=== PATIENT | female | born 1950 | race African-American/Black ===

== ENCOUNTER 2017-07-06 10:21 | Inpatient (IN) | payer MEDICARE ==
[2017-07-06] VITALS (9 sets, daily range): BP systolic 128–162; BP diastolic 92–127; PULSE 62–94; RESP 14–21; TEMP 97.8–98.8; O2SAT 95–97
[~2017-07-06] VITALS: Ht 170.2 cm; Wt 75.3 kg
[~2017-07-06 10:21] MED LIST: ALBUAER3 INH; AMLO10TA2 PO; CARV25TA PO; ENAL20TA PO; FLUT50SP EACH NARE; FURO40TA PO; ONETAB10 PO
[2017-07-06] MEDS ORDERED: SODIUM CHLORIDE 0.9% FLUSH 10 ML FLUSH IVF PRN (11:00)
[2017-07-06 11:08] LABS: AUTOMATED NEUTROPHIL # 4.7 TH/MM3 (1.8-7.7); BASOPHIL # 0.1 TH/MM3 (0-0.2); BASOPHIL % 0.9 % (0.0-2.0); EOSINOPHIL # 0.1 TH/MM3 (0-0.4); EOSINOPHIL % 2.1 % (0.0-4.0); HEMATOCRIT 37.2 % (35.0-46.0); LYMPH % 16.7 % (9.0-44.0); LYMPHOCYTE # 1.1 TH/MM3 (1.0-4.8); MEAN CELL VOLUME 83.1 FL (80.0-100.0); MEAN CORPUSCULAR HEMOGLOBIN 27.1 PG (27.0-34.0); MEAN CORPUSCULAR HGB CONC 32.6 % (32.0-36.0); MONO % 11.2 % (0.0-8.0); NEUT % 69.1 % (16.0-70.0); PLATELET COUNT 205 TH/MM3 (150-450); RED BLOOD COUNT 4.47 MIL/MM3 (4.00-5.30); RED CELL DISTRIBUTION WIDTH 15.7 % (11.6-17.2); WHITE BLOOD COUNT 6.8 TH/MM3 (4.0-11.0)
[2017-07-06 11:10] LABS: HEMO FLAGS AUTO DIFF
--- NOTE | 2017-07-06 11:12 | RADRPT ---
EXAM DATE/TIME: 07/06/2017 10:57 [place] COMPARISON: No previous studies available for comparison. INDICATIONS : Short of breath and cough. MEDICAL HISTORY : Bronchitis SURGICAL HISTORY : None. ENCOUNTER: Initial ACUITY: 1 day PAIN SCORE: 0/10 LOCATION: Bilateral chest FINDINGS: A single view of the chest demonstrates the lungs to be symmetrically aerated without evidence of mas s, infiltrate however there is a small left pleural effusion. The cardiomediastinal contours are unr emarkable. Osseous structures are intact. CONCLUSION: Bilateral pleural effusions left greater than right. Minimal scarring left mid lung zone Tayo Singh MD on July 06, 2017 at 11:09 Board Certified Radiologist. This report was verified electronically.
[2017-07-06 11:26] LABS: BICARBONATE 29.2 MEQ/L (21.0-32.0); POTASSIUM 3.1 MEQ/L (3.5-5.1)
--- NOTE | 2017-07-06 11:26 | PD ---
HPI . Cough Chief Complaint: Cardiac Complaint Time Seen by Provider: 10:56 Travel History International Travel<30 days: No Contact w/Intl Traveler<30days: No Traveled to known affect area: No History of Present Illness HPI This patient is sent here by her primary care physician for the evaluation of a cough. Onset of cough as 3 weeks ago. The patient has been seen at an urgent care facility and diagnosed with bronchitis. She was given several prescriptions at the urgent care center but has not taken them because they have potassium in them. She states that she is allergic to potassium. She had a routine visit with her family physician today. The family physician was concerned about the chronic cough or to us for further evaluation. This patient has a history of CHF. The patient reports a cough which is occasionally productive of clear phlegm. There has been no fever. No chest pain. She has peripheral edema but states that it is actually better today than it has been. There are no modifiers with her cough. The cough is mild. It has been persistent for the last 3 weeks. PFSH Past Medical History Congestive Heart Failure: Yes Hypertension: Yes ?: Not Menopausal: Yes Past Surgical History Surgical History: No Previous Surgery Social History Alcohol Use: No Tobacco Use: No Substance Use: No Allergies-Medications (Allergen,Severity, Reaction): Coded Allergies: iodine (Unverified Allergy, Severe, sneezing, chest tightness, 04/25/17) potassium iodide (Unverified Allergy, Severe, sneezing, chest tightness, 04/25/17) povidone-iodine (Unverified Allergy, Severe, sneezing, chest tightness, ) sodium iodide (Unverified Allergy, Severe, sneezing, chest tightness, 05/02) sodium iodide (Unverified Allergy, Severe, sneezing, chest tightness, 05/02) sulfamethoxazole (Unverified Allergy, Intermediate, abdominal pain, ) trimethoprim (Unverified Allergy, Intermediate, abdominal pain, 04/25/17) Reported Meds & Prescriptions Reported Meds & Active Scripts Active Proair Hfa 8.5 GM Inh (Albuterol Sulfate) 90 Mcg/Act Aer 2 Puff INH Q4-6H PRN 108 mcg/actuation Carvedilol 25 Mg Tab 25 Mg PO BID Furosemide 40 Mg Tab 40 Mg PO DAILY PRN Enalapril (Enalapril Maleate) 20 Mg Tab 20 Mg PO BID One Daily For Women 50+A (Multiple Vitamins W/ Minerals) 1 Tab Tab 1 Tab PO DAILY Amlodipine (Amlodipine Besylate) 10 Mg Tab 10 Mg PO DAILY Review of Systems Except as stated in HPI: all other systems reviewed are Neg General / Constitutional: No: Fever, Chills Respiratory: Positive: Cough, No: Shortness of Breath Gastrointestinal: Positive: Nausea Musculoskeletal: Positive: Edema Physical Exam Narrative GENERAL: Patient is awake and alert and does not appear to be in any distress. SKIN: warm/dry. Normal color and turgor. HEAD: Normocephalic. Atraumatic. EYES: Pupils equal and round. No scleral icterus. No injection or drainage. ENT: No nasal bleeding or discharge. Mucous membranes pink and moist. NECK: Trachea midline. Full range of motion without pain.. CARDIOVASCULAR: Regular rate and rhythm. Heart sounds are normal. RESPIRATORY: No accessory muscle use. Diffuse rales.. Breath sounds equal bilaterally. GASTROINTESTINAL: Abdomen soft. Nontender. Bowel sounds present. Nondistended. MUSCULOSKELETAL: No obvious deformities. One plus pretibial pitting edema. NEUROLOGICAL: Awake and alert. No obvious cranial nerve deficits. Motor grossly within normal limits. Normal speech. PSYCHIATRIC: Appropriate mood and affect; insight and judgment normal. Data Data Last Documented VS Vital Signs Date Time Temp Pulse Resp B/P (MAP) Pulse Ox O2 Delivery O2 Flow Rate FiO2 07/06/17 11:52 87 14 160/127 (138) 97 07/06/17 10:54 Room Air 07/06/17 10:24 98.8 Orders Orders Complete Blood Count With Diff (07/06/17 10:51) Basic Metabolic Panel (Bmp) (07/06/17 10:51) B-Type Natriuretic Peptide (07/06/17 10:51) Iv Access Insert/Monitor (07/06/17 10:51) Ecg Monitoring (07/06/17 10:51) Oximetry (07/06/17 10:51) Chest, Single Ap (07/06/17 10:51) Sodium Chloride 0.9% Flush (Ns Flush) (07/06/17 11:00) Furosemide Inj (Lasix Inj) (07/06/17 11:30) Nitroglycerin 2% Oint (Nitroglycerin 2% (07/06/17 11:30) Labs Laboratory Tests Test 07/06/17 11:00 White Blood Count 6.8 TH/MM3 Red Blood Count 4.47 MIL/MM3 Hemoglobin 12.1 GM/DL Hematocrit 37.2 % Mean Corpuscular Volume 83.1 FL Mean Corpuscular Hemoglobin 27.1 PG Mean Corpuscular Hemoglobin Concent 32.6 % Red Cell Distribution Width 15.7 % Platelet Count 205 TH/MM3 Mean Platelet Volume 10.3 FL Neutrophils (%) (Auto) 69.1 % Lymphocytes (%) (Auto) 16.7 % Monocytes (%) (Auto) 11.2 % Eosinophils (%) (Auto) 2.1 % Basophils (%) (Auto) 0.9 % Neutrophils # (Auto) 4.7 TH/MM3 Lymphocytes # (Auto) 1.1 TH/MM3 Monocytes # (Auto) 0.8 TH/MM3 Eosinophils # (Auto) 0.1 TH/MM3 Basophils # (Auto) 0.1 TH/MM3 CBC Comment AUTO DIFF Differential Comment AUTO DIFF CONFIRMED Ovalocytes 1+ Acanthocytes OCC Keratocytes OCC Blood Urea Nitrogen 26 MG/DL Creatinine 1.33 MG/DL Random Glucose 119 MG/DL Calcium Level 8.4 MG/DL Sodium Level 143 MEQ/L Potassium Level 3.1 MEQ/L Chloride Level 105 MEQ/L Carbon Dioxide Level 29.2 MEQ/L Anion Gap 9 MEQ/L Estimat Glomerular Filtration Rate 48 ML/MIN B-Type Natriuretic Peptide 3767 PG/ML MDM Medical Decision Making Medical Screen Exam Complete: Yes Emergency Medical Condition: Yes Medical Record Reviewed: Yes (this patient was seen by her primary care provider today. That note is available to me for review. The primary care provider as the patient come to the emergency department to be evaluated for acute exacerbation of congestive heart failure. The patient has an underlying ejection fraction of 40% based on an echo done this past year.) Interpretation(s) EKG shows a sinus rhythm with unifocal PVCs. No ST segment elevation or depression. She has inverted T waves laterally. She has no old EKGs in our system for comparison. Differential Diagnosis Differential diagnosis includes but is not limited to viral respiratory illness , bronchitis, pneumonia, allergies, CHF, asthma/COPD. Narrative Course This patient is sent here by her doctor for rule out CHF. She has had a cough for the last 3 weeks. CXR: A single view of the chest demonstrates the lungs to be symmetrically aerated without evidence of mass, infiltrate however there is a small left pleural effusion. The cardiomediastinal contours are unremarkable. Osseous structures are intact. I have independently viewed chest x-ray. She also has no old chest x-rays in our system for comparison. CBC & BMP Diagram 07/06/17 11:00 Calcium Level 8.4 L BNP 3767 This patient is followed by the family practice residents. Their service will be consulted for admission. Diagnosis Primary Impression: Cough Additional Impression: CHF (congestive heart failure) Qualified Codes: I50.9 - Heart failure, unspecified Admitting Information Admitting Physician Requests: Admit Condition: Stable Sirisha Ambrocio MD Jul 06, 2017 11:26
[2017-07-06] MEDS ORDERED: FUROSEMIDE 100 MG/10 ML VIAL IV PUSH ONE (11:30)
[2017-07-06] MEDS ORDERED: NITROGLYCERIN 2% OINT 1 GM PACKET TOPICAL ONE (11:30)
[2017-07-06 11:42] LABS: SCAN/DIFF AUTO DIFF CONFIRMED
[2017-07-06 11:43] LABS: ACANTHOCYTES OCC (NORMAL); KERATOCYTES OCC (NORMAL); OVALOCYTES 1+ (NORMAL)
--- NOTE | 2017-07-06 12:26 | HHI.HP ---
[facility] Primary Care Physician Melissa Monreal MD Admission Diagnosis CHF Diagnoses: International Travel<30 Days: No Contact w/Intl Traveler<30days: No Known Affected Area: No History of Present Illness 66 year old female, patient of Dr. Monreal, sent by Dr. Monreal today from the [facility] clinic. She is accompanied by her . She is presenting with a one week history of increasing exertional dyspnea and increasing lower extremity edema. She has a known history of CHF with an EF one year ago of 40%. She is followed by Dr. Mae. She also has a history of pulmonary hypertension, moderate mitral valve regurgitation, and moderate pulmonary hypertension. 3 weeks ago she developed an acute cough with clear sputum production and was diagnosed with acute bronchitis. The cough is starting to resolve now. 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 Lately, she is noticing that she gets short of breath easily as she is performing her duties. She also has Lasix that she takes as needed, and is taking it every day as she is noticing increasing edema in both legs. She notes that she has been eating more junk food than usual recently because of the holidays. She was first diagnosed with heart failure in 2009. She's been hospitalized twice before for CHF exacerbations. The last time was in 2016. On review of systems, she has no chest pain, abdominal pain, calf tenderness or pain, night sweats, fevers. Review of systems is positive for coughing, nausea for 2 days, vomit X2, recent weight loss unintentional, left neck lymph node for the past couple weeks, and white sputum production. Review of Systems Constitutional: COMPLAINS OF: Weight loss, DENIES: Fatigue, Fever, Chills, Change in appetite, Night Sweats Endocrine: COMPLAINS OF: Heat/cold intolerance Eyes: DENIES: Blurred vision, Vision loss, Double Vision Ears, nose, mouth, throat: DENIES: Nasal discharge, Oral lesions, Throat pain, Hoarseness, Running Nose, Odynophagia Respiratory: COMPLAINS OF: Cough, Wheezing, Sputum production, Shortness of breath Cardiovascular: COMPLAINS OF: Dyspnea on Exertion, Lower Extremity Edema, DENIES: Chest pain, Palpitations, Syncope Gastrointestinal: COMPLAINS OF: Nausea, Vomiting, DENIES: Abdominal pain, Black stools, Bloody stools, Constipation, Diarrhea, Difficulty Swallowing Genitourinary: DENIES: Urinary frequency Musculoskeletal: DENIES: Joint pain, Muscle aches Integumentary: DENIES: Rash Hematologic/lymphatic: COMPLAINS OF: Lymphadenopathy (left neck shotty lymph node ) Neurologic: DENIES: Headache Psychiatric: DENIES: Anxiety, Depression Past Family Social History Past Medical History Congestive heart failure Hypertension CKD Pulmonary hypertension Moderate mitral regurgitation Advertising Rep: Dr. Mae PCP: Dr. Monreal Past Surgical History None Reported Medications Reported Meds & Active Scripts Active Proair Hfa 8.5 GM Inh (Albuterol Sulfate) 90 Mcg/Act Aer 2 Puff INH Q4-6H PRN 108 mcg/actuation Carvedilol 25 Mg Tab 25 Mg PO BID Furosemide 40 Mg Tab 40 Mg PO DAILY PRN Enalapril (Enalapril Maleate) 20 Mg Tab 20 Mg PO BID One Daily For Women 50+A (Multiple Vitamins W/ Minerals) 1 Tab Tab 1 Tab PO DAILY Amlodipine (Amlodipine Besylate) 10 Mg Tab 10 Mg PO DAILY Allergies: Coded Allergies: iodine (Unverified Allergy, Severe, sneezing, chest tightness, 04/25/17) potassium iodide (Unverified Allergy, Severe, sneezing, chest tightness, 04/25/17) povidone-iodine (Unverified Allergy, Severe, sneezing, chest tightness, ) sodium iodide (Unverified Allergy, Severe, sneezing, chest tightness, 05/02) sodium iodide (Unverified Allergy, Severe, sneezing, chest tightness, 05/02) sulfamethoxazole (Unverified Allergy, Intermediate, abdominal pain, ) trimethoprim (Unverified Allergy, Intermediate, abdominal pain, 04/25/17) Active Ordered Medications Inpatient Medications Bisacodyl (Dulcolax Supp) 10 mg DAILY PRN RECTAL SEVERE CONSITIPATION; Start 07/06/17 at 12:45 Carvedilol (Coreg) 25 mg BID PO ; Start 07/06/17 at 12:30 Clonidine (Catapres) 0.2 mg Q6H PRN PO SBP>160, DBP>90; Start 07/06/17 at 13: 15 Enalapril Maleate (Vasotec) 20 mg BID PO ; Start 07/06/17 at 12:30 Enoxaparin Sodium (Lovenox Inj) 40 mg Q24H SQ ; Start 07/06/17 at 14:00 Furosemide (Lasix Inj) 40 mg BID@,18 IVP ; Start 07/06/17 at 18:00 Lactulose (Lactulose Liq) 30 ml DAILY PRN PO SEVERE CONSITIPATION; Start 07/06 at 12:45 Magnesium Hydroxide (Milk Of Magnesia Liq) 30 ml Q12H PRN PO Mild constipation ; Start 07/06/17 at 12:45 Multivitamins/ Minerals Therapeutic (Theragran M Tab) 1 tab DAILY PO ; Start at 12:30 Naloxone HCl (Narcan Inj) 0.4 mg UNSCH PRN IV PUSH SEE LABEL COMMENTS; Start 07/06/17 at 12:45 Nitroglycerin (Nitroglycerin 2% Oint) 1 inch ONCE ONCE TOPICAL Last administered on 07/06/17t 11:47; Start 07/06/17 at 11:30; Stop 07/06/17 at 11 :31; Status DC Ondansetron HCl (Zofran Inj) 4 mg Q6H PRN IVP NAUSEA OR VOMITING; Start at 12:45 Potassium Chloride (KCl) 40 meq DAILY PO ; Start 07/07/17 at 09:00; Stop 07/07 at 09:00; Status DC Senna/Docusate Sodium (Aleyda-Colace) 1 tab BID PO ; Start 07/06/17 at 21:00 Sennosides (Senokot) 17.2 mg Q12H PRN PO Moderate constipation; Start at 12:45 Sodium Chloride (NS Flush) 2 ml UNSCH PRN IV FLUSH FLUSH AFTER USING IV ACCESS ; Start 07/06/17 at 12:45 Family History Two sisters with lung cancer Mom with colorectal cancer Father heart disease Two brothers heart disease Only patient and brother are still living Social History From [place] originally Retired, wanted to be near son, so moved here 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[employer], 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 , lives with Two living sons, one lives in this area, other lives in [place] Smoker: never Alcohol: never Drug use: never 2 years college Physical Exam Vital Signs Vital Signs Date Time Temp Pulse Resp B/P (MAP) Pulse Ox O2 Delivery O2 Flow Rate FiO2 07/06/17 11:52 87 14 160/127 (138) 97 07/06/17 10:54 (135) Room Air 07/06/17 10:46 92 18 155/125 (135) 97 Room Air Automatic Cuff 07/06/17 10:43 86 18 97 Room Air 07/06/17 10:24 98.8 78 18 154/118 (130) 97 Room Air Physical Exam General: Patient sitting up in bed, no acute distress Skin: No rashes or lesions HEENT: Normocephalic, no conjunctivitis, no nasal discharge, normal pharynx, wearing dentures Neck: Has JVD present, no thyromegaly. Has left neck lymph node that is soft, mobile, present for past couple weeks per patient. CV: RRR, no murmurs, rubs, or gallops, occasional extra beat. Pulses intact distally. Normal cap refill. Lungs: Bi-basilar crackles, no wheezing, no consolidations, no respiratory distress. Abdomen: Soft, nontender, nondistended, normal bowel sounds. Ext: Pitting edema up to the knees. Neuro: Awake, alert Psych: Appropriate mood and affect Laboratory Laboratory Tests Test 07/06/17 11:00 White Blood Count 6.8 Red Blood Count 4.47 Hemoglobin 12.1 Hematocrit 37.2 Mean Corpuscular Volume 83.1 Mean Corpuscular Hemoglobin 27.1 Mean Corpuscular Hemoglobin Concent 32.6 Red Cell Distribution Width 15.7 Platelet Count 205 Mean Platelet Volume 10.3 Neutrophils (%) (Auto) 69.1 Lymphocytes (%) (Auto) 16.7 Monocytes (%) (Auto) 11.2 Eosinophils (%) (Auto) 2.1 Basophils (%) (Auto) 0.9 Neutrophils # (Auto) 4.7 Lymphocytes # (Auto) 1.1 Monocytes # (Auto) 0.8 Eosinophils # (Auto) 0.1 Basophils # (Auto) 0.1 CBC Comment AUTO DIFF Differential Comment AUTO DIFF CONFIRMED Ovalocytes 1+ Acanthocytes OCC Keratocytes OCC Blood Urea Nitrogen 26 Creatinine 1.33 Random Glucose 119 Calcium Level 8.4 Sodium Level 143 Potassium Level 3.1 Chloride Level 105 Carbon Dioxide Level 29.2 Anion Gap 9 Estimat Glomerular Filtration Rate 48 B-Type Natriuretic Peptide 3767 Result Diagram: 07/06/17 1100 07/06/17 1100 Imaging Last 72 hours Impressions Chest X-Ray 07/06/17 1051 Signed Impressions: Service Date/Time: June 10:57 - CONCLUSION: Bilateral pleural effusions left greater than right. Minimal scarring left mid lung zone Tayo Singh MD Septic Shock Reassessment Septic shock perfusion: reassessment completed Caprini VTE Risk Assessment Caprini VTE Risk Assessment: Mod/High Risk (score >= 2) Caprini Risk Assessment Model Point Value = 1 Point Value = 2 Point Value = 3 Point Value = 5 Age 41-60 Minor surgery BMI > 25 kg/m2 Swollen legs Varicose veins or History of unexplained or recurrent spontaneous Oral contraceptives or hormone replacement Sepsis (< 1 month) Serious lung disease, including pneumonia (< 1 month) Abnormal pulmonary function Acute myocardial infarction Congestive heart failure (< 1 month) History of inflammatory bowel disease Medical patient at bed rest Age 61-74 Arthroscopic surgery Major open surgery (> 45 min) Laparoscopic surgery (> 45 min) Malignancy Confined to bed (> 72 hours) Immobilizing plaster cast Central venous access Age >= 75 History of VTE Family history of VTE Factor V Leiden Prothrombin [id number] Lupus anticoagulant Anticardiolipin antibodies Elevated serum homocysteine Heparin-induced thrombocytopenia Other congenital or acquired thrombophilia Stroke (< 1 month) Elective arthroplasty Hip, pelvis, or leg fracture Acute spinal cord injury (< 1 month) Prophylaxis Regimen Total Risk Factor Score Risk Level Prophylaxis Regimen 0-1 Low Early ambulation 2 Moderate Order ONE of the following: *Sequential Compression Device (SCD) *Heparin 5000 units SQ BID 3-4 Higher Order ONE of the following medications: *Heparin 5000 units SQ TID *Enoxaparin/Lovenox 40 mg SQ daily (WT < 150 kg, CrCl > 30 mL/min) *Enoxaparin/Lovenox 30 mg SQ daily (WT < 150 kg, CrCl > 10-29 mL/min) *Enoxaparin/Lovenox 30 mg SQ BID (WT < 150 kg, CrCl > 30 mL/min) AND/OR *Sequential Compression Device (SCD) 5 or more Highest Order ONE of the following medications: *Heparin 5000 units SQ TID (Preferred with Epidurals) *Enoxaparin/Lovenox 40 mg SQ daily (WT < 150 kg, CrCl > 30 mL/min) *Enoxaparin/Lovenox 30 mg SQ daily (WT < 150 kg, CrCl > 10-29 mL/min) *Enoxaparin/Lovenox 30 mg SQ BID (WT < 150 kg, CrCl > 30 mL/min) AND *Sequential Compression Device (SCD) Assessment and Plan Assessment and Plan 66 year old female presents with increasing exertional dyspnea and lower extremity edema, with a known history of congestive heart failure Code Status FULL CODE Discussed Condition With Dr. Ambrocio Problem List: (1) Acute exacerbation of congestive heart failure ICD Codes: I50.9 - Heart failure, unspecified Status: Acute Plan: Presenting with exertional dyspnea and increasing lower extremity edema for the past week. Cardiomegaly on x-ray. Bilateral pleural effusions, left greater than right. BNP significantly elevated to 3767. EKG showing no ST segment changes, has unifocal PVC's, inverted T waves laterally. ECHO from shows left ventricular systolic dysfunction (EF 40%), mild LVH, moderate mitral regurgitation, mild aortic insufficiency, mild to moderate pulmonary hypertension. Patient known to Dr. Mae. - Consult cardiology, Dr. Mae. - Repeat echocardiogram to assess progression of heart failure - Lasix 40 mg IV bid, monitor fluid status and renal function, potassium level. - Continue carvedilol 25 mg bid, enalapril 20 mg bid. - May need spironolactone depending on ejection fraction. - Pulse oximetry and supplemental O2 as needed. (2) Pulmonary hypertension ICD Codes: I27.20 - Pulmonary hypertension, unspecified Status: Chronic Plan: Mild to moderate pulmonary hypertension on past ECHO. Likely secondary to heart failure and mitral regurgitation. - Optimize heart function, see plan for heart failure. - Repeat ECHO - Cardiology on board. (3) Mitral regurgitation ICD Codes: I34.0 - Nonrheumatic mitral (valve) insufficiency Status: Chronic Plan: Moderate mitral regurgitation on last ECHO. Also with mild LVH. - Repeat ECHO - Cardiology on board - Will need regular ECHO's as an outpatient to track progression (4) Head and neck lymphadenopathy ICD Codes: R59.1 - Generalized enlarged lymph nodes Status: Acute Plan: Left neck soft mobile lymph node for the past 3 weeks, likely reactive from recent upper respiratory illness. Also with some recent unintentional weight loss. No fevers or night sweats. - Will need to be followed as an outpatient and further workup needed if not resolving soon. - Check peripheral smear for some abnormalities noted on CBC with diff (5) Hypertension ICD Codes: I10 - Essential (primary) hypertension Status: Chronic Plan: - Carvedilol 25 mg bid - Enalapril 40 mg q24hrs - Clonidine PRN - Monitor blood pressures (6) Chronic kidney disease ICD Codes: N18.9 - Chronic kidney disease, unspecified Status: Chronic Plan: BUN 26, creatinine 1.33, GFR 48. Creatinine is at baseline per prior labs. - Avoid nephrotoxic agents - Renally dose medications - Improve cardiac function (7) Nutrition, metabolism, and development symptoms ICD Codes: R63.8 - Other symptoms and signs concerning food and fluid intake Status: Acute Plan: PO fluids Heart healthy diet with sodium restriction Potassium low, monitor. Will investigate if it is potassium or iodine she is actually allergic to. Monitor I's and O's and daily weights (8) No contraindication to deep vein thrombosis (DVT) prophylaxis ICD Codes: Z78.9 - Other specified health status Status: Acute Plan: Lovenox 40 mg daily Encourage mobilization Consult physical therapy Physician Certification 2 Midnight Certification Type: Admission for Inpatient Services Order for Inpatient Services The services are ordered in accordance with Medicare regulations or non- Medicare payer requirements, as applicable. In the case of services not specified as inpatient-only, they are appropriately provided as inpatient services in accordance with the 2-midnight benchmark. Estimated LOS (days): 3 days is the estimated time the patient will need to remain in the hospital, assuming treatment plan goals are met and no additional complications. Post-Hospital Plan: Home Problem Qualifiers (1) Acute exacerbation of congestive heart failure: Qualified Codes: I50.43 - Acute on chronic combined systolic (congestive) and diastolic (congestive) heart failure (2) Mitral regurgitation: Qualified Codes: I34.0 - Nonrheumatic mitral (valve) insufficiency (3) Hypertension: Qualified Codes: I10 - Essential (primary) hypertension Cristian Landa MD R3 Jul 06, 2017 12:26
[2017-07-06] MEDS ORDERED: SENNOSIDES 8.6 MG TAB PO PRN (12:45)
[2017-07-06] MEDS ORDERED: ONDANSETRON HCL 4 MG/2 ML VIAL IVP PRN (12:45)
[2017-07-06] MEDS ORDERED: SODIUM CHLORIDE 0.9% FLUSH 10 ML FLUSH IV FLUSH PRN (12:45)
[2017-07-06] MEDS ORDERED: BISACODYL 10 MG SUPP RECTAL PRN (12:45)
[2017-07-06] MEDS ORDERED: MAGNESIUM HYDROXIDE SUSP 30 ML CUP PO PRN (12:45)
[2017-07-06] MEDS ORDERED: NALOXONE HCL 0.4 MG/ML AMP IV PUSH PRN (12:45)
[2017-07-06] MEDS ORDERED: LACTULOSE SYRUP 20 GM/30 ML CUP PO PRN (12:45)
[2017-07-06] MEDS ORDERED: POTASSIUM CHLORIDE 10 MEQ CONTROLLED RELEASE TAB PO ONE ×2 (13:15→16:15)
[2017-07-06] MEDS ORDERED: cloNIDine HCL 0.2 MG TAB PO PRN (13:15)
[2017-07-06] MEDS: MULTIVITAMINS/MINERALS THERAPEUTIC TAB PO SCH (13:34)
[2017-07-06] MEDS: CARVEDILOL 12.5 MG TAB PO SCH ×2 (13:34→21:53)
[2017-07-06] MEDS: ENALAPRIL MALEATE 10 MG TAB PO SCH ×2 (13:35→21:53)
[2017-07-06] MEDS: ENOXAPARIN SODIUM 40 MG/0.4 ML SYRINGE SQ SCH (14:00)
[2017-07-06] MEDS: FUROSEMIDE 40 MG/4 ML VIAL IVP SCH (18:06)
[2017-07-06] MEDS: DOCUSATE SODIUM 50 MG/SENNA 8.6 MG TAB PO SCH (21:00)
[2017-07-06] MEDS: SODIUM CHLORIDE 0.9% FLUSH 10 ML FLUSH IV FLUSH SCH (21:53)
[2017-07-07] VITALS (8 sets, daily range): BP systolic 115–146; BP diastolic 76–99; PULSE 62–76; RESP 16–21; TEMP 98–98.6; O2SAT 92–99
[2017-07-07] MEDS ORDERED: POTASSIUM CHLORIDE 10 MEQ CONTROLLED RELEASE TAB PO SCH ×2 (09:00)
[2017-07-07] MEDS: SODIUM CHLORIDE 0.9% FLUSH 10 ML FLUSH IV FLUSH SCH ×2 (09:03→20:13)
[2017-07-07] MEDS: ENALAPRIL MALEATE 10 MG TAB PO SCH ×2 (09:03→20:13)
[2017-07-07] MEDS: DOCUSATE SODIUM 50 MG/SENNA 8.6 MG TAB PO SCH ×2 (09:03→20:13)
[2017-07-07] MEDS: MULTIVITAMINS/MINERALS THERAPEUTIC TAB PO SCH (09:04)
[2017-07-07] MEDS: CARVEDILOL 12.5 MG TAB PO SCH ×2 (09:04→20:13)
[2017-07-07] MEDS: FUROSEMIDE 40 MG/4 ML VIAL IVP SCH ×2 (09:04→17:50)
--- NOTE | 2017-07-07 10:38 | MB ---
cc: VEENA GALLARDO DATE OF CONSULTATION: 07/06/2017 REASON FOR CONSULTATION: Ms. Funes is a 66 year-old white female who was seen by her primary care physician Dr. Monreal from his office from which she has had 1-week history of increased dyspnea and lower extremity edema. She has history of congestive heart failure, and moderate left dysfunction with an ejection fraction of 40%. She had cough three weeks ago and was diagnosed with acute bronchitis. She has not been compliant with her low-salt diet. History of previous heart failure exacerbations. PAST MEDICAL HISTORY: 1. Past medical is positive for congestive heart failure. hypertension. 2. Chronic kidney disease. 3. Pulmonary hypertension. 4. Moderate mitral regurgitation. 5. 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 History of chronic kidney disease. 6. Mild to moderate pulmonary hypertension. MEDICATIONS 1. Carvedilol 2. Enalapril 3. Furosemide 4. Hydrochlorothiazide 5. Multivitamin. 6. Amlodipine. ALLERGIES BACTRIM HYDRALAZINE IODINE POTASSIUM SOCIAL HISTORY The patient does not smoke. She does not drink alcohol. FAMILY HISTORY: Family history is positive for heart disease in her father. REVIEW OF SYSTEMS: The review of systems is otherwise negative. PHYSICAL EXAMINATION: VITAL SIGNS: Blood pressure 128/92, pulse 73 regular. HEAD, EYES, EARS, NOSE, AND THROAT: Negative 2+ over upstrokes. No bruits. LUNGS: Lungs with bibasilar crackles. HEART: Regular with no murmur, gallop or rub. Soft, no bruits. EXTREMITIES: 2+ pitting edema, 1+ distal pulses. NEUROLOGIC: Grossly nonfocal. RADIOLOGIC: Telemetry shows sinus rhythm. LABORATORY DATA Hemoglobin 12.1, Potassium 3.1 creatinine 1.33, B-type natriuretic peptide 767. DIAGNOSIS: 1. Acute exacerbation of chronic systolic and diastolic congestive heart failure.. 2. Cardiomyopathy with moderate left ventricular systolic dysfunction. 3. Moderate mitral regurgitation. 4. Hypertension. 5. Chronic kidney disease, stage 3. 6. Mild to moderate pulmonary hypertension. DISPOSITION Ms. Funes will be monitored on telemetry. We will continue therapy for congestive heart failure including IV diuresis, closely monitoring her renal function. I also recommend to continue therapy with carvedilol and enalapril. We will continue to look for mitral regurgitation and congestive heart failure. I will follow her for cardiology during her hospitalization and also see her back for followup in our office after discharge. The plan was discussed with the patient and her . MD SAJAN Torres/kavon /6:17 PM /9:45 AM MARY
[2017-07-07] MEDS: POTASSIUM CHLORIDE 10 MEQ CONTROLLED RELEASE TAB PO SCH (10:45)
--- NOTE | 2017-07-07 11:06 | HHI.FPPN ---
Subjective Remarks Sitting up in bed, no distress. Peripheral edema somewhat improved compared to yesterday. Reports no shortness of breath at rest. She walked the halls yesterday and got mildly short of breath. No chest pain. No abdominal pain, nausea, vomiting, or diarrhea. She is waiting for her echocardiogram today. Overall she is improving compared to yesterday. (Cristian Landa MD R3) Objective Vitals Vital Signs Date Time Temp Pulse Resp B/P (MAP) Pulse Ox O2 Delivery O2 Flow Rate FiO2 07/07/17 08:02 98.4 72 21 146/99 (115) 94 07/07/17 04:00 62 07/07/17 04:00 98.0 68 18 145/99 (114) 98 07/07/17 00:07 98.0 74 18 115/76 (89) 92 07/07/17 00:00 73 07/06/17 22:14 97.8 70 18 144/98 (113) 95 07/06/17 20:00 70 07/06/17 17:00 98.3 71 16 152/111 (125) 96 07/06/17 16:36 07/06/17 15:44 73 19 128/92 (104) 97 Room Air 07/06/17 13:36 94 21 162/119 (133) 97 Room Air 07/06/17 11:52 87 14 160/127 (138) 97 I/O 07/06/17 07/06/17 07/06/17 07/07/17 07/07/17 07/07/17 07:00 15:00 23:00 07:00 15:00 23:00 Intake Total 120 ml 240 ml Output Total 200 ml Balance 120 ml 40 ml Intake Oral 120 ml 240 ml Output Urine Total 200 ml # Voids 3 1 # Bowel Movements 0 (Cristian Landa MD R3) Result Diagram: 07/06/17 1100 07/06/17 1100 Objective Remarks General: Patient sitting up on the side of bed eating, no distress, pleasant demeanor Skin: No rashes or lesions HEENT: Normocephalic, no conjunctivitis, no nasal discharge, normal pharynx, wearing dentures Neck: Has JVD present, no thyromegaly. Has left neck lymph node that is soft, mobile, present for past couple weeks per patient. CV: RRR, no murmurs, rubs, or gallops, occasional extra beat. Pulses intact distally. Normal cap refill. Lungs: Bi-basilar crackles but improving from yesterday, no wheezing, no consolidations, no respiratory distress. Abdomen: Soft, nontender, nondistended, normal bowel sounds. Ext: Pitting edema up to mid shins, improved some from yesterday. Neuro: Awake, alert Psych: Appropriate mood and affect (Cristian Landa MD R3) A/P Assessment and Plan 66 year old female presents with increasing exertional dyspnea and lower extremity edema, with a known history of congestive heart failure Discharge Planning Possibly discharge tomorrow if she continues to improve. May need addition of spironolactone depending on her echocardiogram results. 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 Also needs close follow up with her PCP. Left neck lymph node needs to be followed as an outpatient. (Cristian Landa MD R3) Attending Attestation Patient seen and examined. Case reviewed and discussed with the resident DR Fazal Landa. Agree with plan of care as discussed with me and documented in the resident note. (Porfirio Maciel MD) Problem List: (1) Acute exacerbation of congestive heart failure ICD Codes: I50.9 - Heart failure, unspecified Status: Acute Plan: Presenting with exertional dyspnea and increasing lower extremity edema for the past week. Cardiomegaly on x-ray. Bilateral pleural effusions, left greater than right. BNP significantly elevated to 3767. EKG showing no ST segment changes, has unifocal PVC's, inverted T waves laterally. ECHO from shows left ventricular systolic dysfunction (EF 40%), mild LVH, moderate mitral regurgitation, mild aortic insufficiency, mild to moderate pulmonary hypertension. Patient known to Dr. Mae. - Consulted cardiology, Dr. Mae. Appreciate recommendations. - Repeat echocardiogram to assess progression of heart failure - Lasix 40 mg IV bid, monitor fluid status and renal function, potassium level. - Give potassium chloride 40 meQ daily while getting Lasix. Given allergy list discussed with pharmacist giving potassium chloride. Very low likelihood that she would have an allergic reaction to KCl, but we will monitor closely. - Continue carvedilol 25 mg bid, enalapril 20 mg bid. - May need spironolactone depending on ejection fraction. - Pulse oximetry and supplemental O2 as needed. (2) Pulmonary hypertension ICD Codes: I27.20 - Pulmonary hypertension, unspecified Status: Chronic Plan: Mild to moderate pulmonary hypertension on past ECHO. Likely secondary to heart failure and mitral regurgitation. - Optimize heart function, see plan for heart failure. - Repeat ECHO - Cardiology on board. (3) Mitral regurgitation ICD Codes: I34.0 - Nonrheumatic mitral (valve) insufficiency Status: Chronic Plan: Moderate mitral regurgitation on last ECHO. Also with mild LVH. - Repeat ECHO - Cardiology on board - Will need regular ECHO's as an outpatient to track progression (4) Head and neck lymphadenopathy ICD Codes: R59.1 - Generalized enlarged lymph nodes Status: Acute Plan: Left neck soft mobile lymph node for the past 3 weeks, likely reactive from recent upper respiratory illness. Also with some recent unintentional weight loss. No fevers or night sweats. - Will need to be followed as an outpatient and further workup needed if not resolving soon. - Check peripheral smear for some abnormalities noted on CBC with diff (5) Hypertension ICD Codes: I10 - Essential (primary) hypertension Status: Chronic Plan: - Carvedilol 25 mg bid - Enalapril 40 mg q24hrs - Clonidine PRN - Monitor blood pressures (6) Chronic kidney disease ICD Codes: N18.9 - Chronic kidney disease, unspecified Status: Chronic Plan: BUN 26, creatinine 1.33, GFR 48. Creatinine is at baseline per prior labs. - Avoid nephrotoxic agents - Renally dose medications - Improve cardiac function (7) Nutrition, metabolism, and development symptoms ICD Codes: R63.8 - Other symptoms and signs concerning food and fluid intake Status: Acute Plan: PO fluids Heart healthy diet with sodium restriction Potassium low, monitor. Will investigate if it is potassium or iodine she is actually allergic to. Monitor I's and O's and daily weights (8) No contraindication to deep vein thrombosis (DVT) prophylaxis ICD Codes: Z78.9 - Other specified health status Status: Acute Plan: Lovenox 40 mg daily, refusing so will add bilateral SCD's Encourage mobilization Consult physical therapy (Cristian Landa MD R3) Problem Qualifiers (1) Acute exacerbation of congestive heart failure: Qualified Codes: I50.43 - Acute on chronic combined systolic (congestive) and diastolic (congestive) heart failure (2) Mitral regurgitation: Qualified Codes: I34.0 - Nonrheumatic mitral (valve) insufficiency (3) Hypertension: Qualified Codes: I10 - Essential (primary) hypertension Cristian Landa MD R3 Jul 07, 2017 11:06 Porfirio Maciel MD Jul 07, 2017 16:36
--- NOTE | 2017-07-07 11:06 | PD.CARD.PN ---
Subjective Subjective Remarks No CP, SOB and edema improved, feels much better Objective Medications Current Medications Medications (Trade) Dose Ordered Sig/James Route Start Time Stop Time Status Last Admin (NS Flush) 2 ml UNSCH PRN IVF 07/06/17 11:00 (Coreg) 25 mg BID PO 07/06/17 12:30 07/07/17 09:04 (Vasotec) 20 mg BID PO 07/06/17 12:30 07/07/17 09:03 (Theragran M Tab) 1 tab DAILY PO 07/06/17 12:30 07/07/17 09:04 (NS Flush) 2 ml BID IV FLUSH 07/06/17 21:00 07/07/17 09:03 (NS Flush) 2 ml UNSCH PRN IV FLUSH 07/06/17 12:45 (Lasix Inj) 40 mg BID@,18 IVP 07/06/17 18:00 07/07/17 09:04 (Lovenox Inj) 40 mg Q24H SQ 07/06/17 14:00 (Zofran Inj) 4 mg Q6H PRN IVP 07/06/17 12:45 (Narcan Inj) 0.4 mg UNSCH PRN IV PUSH 07/06/17 12:45 (Aleyda-Colace) 1 tab BID PO 07/06/17 21:00 07/07/17 09:03 (Milk Of Magnesia Liq) 30 ml Q12H PRN PO 07/06/17 12:45 (Senokot) 17.2 mg Q12H PRN PO 07/06/17 12:45 (Dulcolax Supp) 10 mg DAILY PRN RECTAL 07/06/17 12:45 (Lactulose Liq) 30 ml DAILY PRN PO 07/06/17 12:45 (Catapres) 0.2 mg Q6H PRN PO 07/06/17 13:15 (KCl) 40 meq DAILY PO 07/07/17 10:45 Vital Signs / I&O Vital Signs Date Time Temp Pulse Resp B/P (MAP) Pulse Ox O2 Delivery O2 Flow Rate FiO2 07/07/17 08:02 98.4 72 21 146/99 (115) 94 07/07/17 04:00 62 07/07/17 04:00 98.0 68 18 145/99 (114) 98 07/07/17 00:07 98.0 74 18 115/76 (89) 92 07/07/17 00:00 73 07/06/17 22:14 97.8 70 18 144/98 (113) 95 07/06/17 20:00 70 07/06/17 17:00 98.3 71 16 152/111 (125) 96 07/06/17 16:36 07/06/17 15:44 73 19 128/92 (104) 97 Room Air 07/06/17 13:36 94 21 162/119 (133) 97 Room Air 07/06/17 11:52 87 14 160/127 (138) 97 I/O 07/06/17 07/06/17 07/06/17 07/07/17 07/07/17 07/07/17 07:00 15:00 23:00 07:00 15:00 23:00 Intake Total 120 ml 240 ml Output Total 200 ml Balance 120 ml 40 ml Intake Oral 120 ml 240 ml Output Urine Total 200 ml # Voids 3 1 # Bowel Movements 0 Physical Exam GENERAL: In NAD SKIN: Warm and dry. HEAD: Normocephalic. EYES: No scleral icterus. No injection or drainage. NECK: Supple, trachea midline. No JVD or lymphadenopathy. CARDIOVASCULAR: Regular rate and rhythm without murmurs, gallops, or rubs. RESPIRATORY: Breath sounds equal bilaterally. No accessory muscle use. Clear. GASTROINTESTINAL: Abdomen soft, non-tender, nondistended. MUSCULOSKELETAL: No cyanosis, trace edema. Assessment and Plan Problem List: (1) Acute exacerbation of congestive heart failure ICD Codes: I50.9 - Heart failure, unspecified Status: Acute (2) Cardiomyopathy ICD Codes: I42.9 - Cardiomyopathy, unspecified (3) Hypertension ICD Codes: I10 - Essential (primary) hypertension Status: Chronic (4) Mitral regurgitation ICD Codes: I34.0 - Nonrheumatic mitral (valve) insufficiency Status: Chronic (5) Chronic kidney disease ICD Codes: N18.9 - Chronic kidney disease, unspecified Status: Chronic Assessment and Plan CHF improving. Continue current program including diuresis, closely monitor renal fx. Increase activity. Will schedule outpatient f/u after discharge. Pt counseled on low Na diet. Problem Qualifiers (1) Acute exacerbation of congestive heart failure: Qualified Codes: I50.43 - Acute on chronic combined systolic (congestive) and diastolic (congestive) heart failure (2) Hypertension: Qualified Codes: I10 - Essential (primary) hypertension (3) Mitral regurgitation: Qualified Codes: I34.0 - Nonrheumatic mitral (valve) insufficiency Kvng Mae MD Jul 07, 2017 11:06
[2017-07-07 11:23] LABS: BICARBONATE 31.3 MEQ/L (21.0-32.0); POTASSIUM 3.4 MEQ/L (3.5-5.1)
[2017-07-07] MEDS: ENOXAPARIN SODIUM 40 MG/0.4 ML SYRINGE SQ SCH (14:00)
--- NOTE | 2017-07-07 15:57 | ECHRPT ---
Indication: Heart failure, unspecified CONCLUSIONS The left ventricular systolic function is moderately to severely reduced with an estimated ejection fraction in the range of 30-35%. Mild concentric left ventricular hypertrophy. Mildly dilated left ventricle. Moderate mitral valve regurgitation. There is moderate tricuspid valve regurgitation. The estimated pulmonary arterial pressure is 59 mmHg. Mild pulmonary valve regurgitation. A small left sided pleural effusion is noted. There is a small pericardial effusion present. The left atrial size is mildly dilated. BP: 160 / 127 HR: 87 Rhythm: Sinus MEASUREMENTS (Male / Female) Normal Values Technical Quality:Excellent 2D ECHO LV Diastolic Diameter PLAX 5.8 cm 4.2 - 5.9 / 3.9 - 5.3 cm LV Systolic Diameter PLAX 5.1 cm IVS Diastolic Thickness 1.4 cm 0.6 - 1.0 / 0.6 - 0.9 cm LVPW Diastolic Thickness 1.4 cm 0.6 - 1.0 / 0.6 - 0.9 cm LV Relative Wall Thickness 0.5 LVOT Diameter 2.0 cm M-MODE Aortic Root Diameter MM 2.9 cm LA Systolic Diameter MM 4.5 cm LA Ao Ratio MM 1.6 AV Cusp Separation MM 1.8 cm DOPPLER AV Peak Velocity 135.0 cm/s AV Peak Gradient 7.3 mmHg LVOT Peak Velocity 72.1 cm/s LVOT Peak Gradient 2.1 mmHg AV Area Cont Eq pk 1.7 cm MR Peak Velocity 482.5 cm/s MR Peak Gradient 93.1 mmHg LV E' Lateral Velocity 5.1 cm/s LV E' Septal Velocity 3.4 cm/s TR Peak Velocity 349.0 cm/s TR Peak Gradient 48.7 mmHg Right Atrial Pressure 10.0 mmHg Pulmonary Artery Systolic Pressu 58.7 mmHg Right Ventricular Systolic Press 58.7 mmHg PV Peak Velocity 118.0 cm/s PV Peak Gradient 5.6 mmHg FINDINGS LEFT VENTRICLE The left ventricular systolic function is moderately to severely reduced with an estimated ejection fraction in the range of 30-35%. Mild concentric left ventricular hypertrophy. Mildly dilated left ventricle. RIGHT VENTRICLE Normal right ventricular size and systolic function. LEFT ATRIUM The left atrial size is mildly dilated. RIGHT ATRIUM The right atrial size is normal. ATRIAL SEPTUM Normal atrial septal thickness without atrial level shunting by limited color doppler interrogation. AORTA The aortic root and proximal ascending aorta are normal in size on limited imaging. MITRAL VALVE Moderate mitral valve regurgitation. AORTIC VALVE Trileaflet aortic valve. No aortic valve stenosis or regurgitation. TRICUSPID VALVE There is moderate tricuspid valve regurgitation. The estimated pulmonary arterial pressure is 58.7 mmHg. PULMONARY VALVE Mild pulmonary valve regurgitation. VESSELS The inferior vena cava is normal in size. PERICARDIUM A small left sided pleural effusion is noted. There is a small pericardial effusion present. Kvng Mae MD, FACC (Electronically Signed) Final Date:07 July 2017 15:56
--- NOTE | 2017-07-07 23:51 | EKG ---
Date Performed: 07/06/2017 Time Performed: 10:49:39 PTAGE: 66 years EKG: Sinus rhythm WITH FREQUENT VENTRICULAR PREMATURE COMPLEXES LEFT ATRIAL ENLARGEMENT ST DEVIATION AND MODERATE T-WA VE ABNORMALITY, CONSIDER LATERAL ISCHEMIA ABNORMAL ECG NO PREVIOUS TRACING DOCTOR: Bhaskar Koehler Interpretating Date/Time 07/07/2017 23:49:56
[2017-07-08] VITALS: BP 126/88; PULSE 62; PULSE 74; RESP 18; TEMP 98.3; O2SAT 100
[2017-07-08 04:00] VITALS: BP 140/111; PULSE 66; RESP 18; TEMP 97.5; O2SAT 98
[2017-07-08 08:00] VITALS: PULSE 60
[2017-07-08 08:13] VITALS: BP 145/102; PULSE 73; RESP 20; TEMP 98.1; O2SAT 95
[2017-07-08 08:27] LABS: HEMATOCRIT 33.9 % (35.0-46.0); MEAN CELL VOLUME 82.3 FL (80.0-100.0); PLATELET COUNT 179 TH/MM3 (150-450); RED BLOOD COUNT 4.12 MIL/MM3 (4.00-5.30); RED CELL DISTRIBUTION WIDTH 15.5 % (11.6-17.2); REVIEW FLAG FINAL; WHITE BLOOD COUNT 5.3 TH/MM3 (4.0-11.0)
[2017-07-08 08:53] LABS: ANION GAP 6 MEQ/L (5-15); BICARBONATE 32.3 MEQ/L (21.0-32.0); BLOOD UREA NITROGEN 19 MG/DL (7-18); CHLORIDE 104 MEQ/L (98-107); GLOMERULAR FILTRATION RATE 61 ML/MIN (>89); MAGNESIUM 1.8 MG/DL (1.5-2.5); SODIUM (NA) 142 MEQ/L (136-145)
[2017-07-08 08:57] LABS: FERRITIN 23 NG/ML (8-252); TRANSFERRIN IRON PROFILE 268 MG/DL (200-360)
[2017-07-08] MEDS ORDERED: FUROSEMIDE 40 MG TAB PO SCH (09:00)
[2017-07-08 09:04] LABS: POTASSIUM 2.9 MEQ/L (3.5-5.1)
[2017-07-08] MEDS: POTASSIUM CHLORIDE 10 MEQ CONTROLLED RELEASE TAB PO SCH (09:45)
[2017-07-08] MEDS: ENALAPRIL MALEATE 10 MG TAB PO SCH (09:45)
[2017-07-08] MEDS: MULTIVITAMINS/MINERALS THERAPEUTIC TAB PO SCH ×2 (09:45→09:50)
[2017-07-08] MEDS: DOCUSATE SODIUM 50 MG/SENNA 8.6 MG TAB PO SCH ×2 (09:46→09:50)
[2017-07-08] MEDS: CARVEDILOL 12.5 MG TAB PO SCH (09:46)
[2017-07-08] MEDS: SPIRONOLACTONE 25 MG TAB PO SCH ×2 (09:46→09:50)
[2017-07-08] MEDS: SODIUM CHLORIDE 0.9% FLUSH 10 ML FLUSH IV FLUSH SCH (09:46)
[2017-07-08] MEDS ORDERED: POTASSIUM CHLORIDE 10 MEQ CONTROLLED RELEASE TAB PO ONE (10:15)
--- NOTE | 2017-07-08 10:28 | HHI.DCPOC ---
Discharge Care Plan Diagnosis: (1) Pulmonary hypertension (2) Acute exacerbation of congestive heart failure (3) Mitral regurgitation (4) Hypertension (5) Chronic kidney disease (6) Head and neck lymphadenopathy Goals to Promote Your Health * To prevent worsening of your condition and complications * To maintain your health at the optimal level Directions to Meet Your Goals Take your medications as prescribed Follow your dietary instruction Follow activity as directed Keep your appointments as scheduled Take your immunizations and boosters as scheduled If your symptoms worsen call your PCP, if no PCP go to Urgent Care Center or Emergency Room Smoking is Dangerous to Your Health. Avoid second hand smoke Call the 24-hour hour crisis hotline for domestic abuse at Cristian Landa MD R3 Jul 08, 2017 10:28
--- NOTE | 2017-07-08 10:28 | HHI.FPPN ---
Subjective Remarks Patient sitting up in bed, reports she is back to her baseline. She has no more shortness of breath. Her cough has resolved. She has been walking without much difficulty. Her appetite is good. She is eating normal. She reports her edema is mostly gone. She is eager to go home today. Her potassium is low this morning and we are replacing. She will also start spironolactone for EF of 30-35 , and will get a potassium and renal panel drawn as an outpatient. Hopefully she can go home today, pending correction of hypokalemia. (Cristian Landa MD R3) Objective Vitals Vital Signs Date Time Temp Pulse Resp B/P (MAP) Pulse Ox O2 Delivery O2 Flow Rate FiO2 07/08/17 08:13 98.1 73 20 145/102 (116) 95 07/08/17 04:00 97.5 66 18 140/111 (121) 98 07/08/17 00:00 98.3 62 18 126/88 (101) 100 07/08/17 00:00 74 07/07/17 20:00 69 07/07/17 20:00 64 07/07/17 20:00 98.2 65 16 122/87 (99) 99 07/07/17 17:41 98 21 07/07/17 16:02 98.6 66 20 141/94 (110) 98 07/07/17 12:02 98.0 76 21 127/81 (96) 93 I/O 07/07/17 07/07/17 07/07/17 07/08/17 07/08/17 07/08/17 07:00 15:00 23:00 07:00 15:00 23:00 Intake Total 240 ml 600 ml Output Total 200 ml 1000 ml 900 ml Balance 40 ml -400 ml -900 ml Intake Oral 240 ml 600 ml Output Urine Total 200 ml 1000 ml 900 ml # Bowel Movements 0 0 (Cristian Landa MD R3) Result Diagram: 07/08/1774307/08/17743 Objective Remarks General: Sitting up in bed, no distress, good spirits Skin: No rashes or lesions HEENT: Normocephalic, no conjunctivitis, no nasal discharge, normal pharynx, wearing dentures Neck: JVD decreased, no thyromegaly. Has left neck lymph node that is soft, mobile, present for past couple weeks per patient. CV: RRR, no murmurs, rubs, or gallops, occasional extra beat. Reviewed telemetry , no atrial fibrillation. Pulses intact distally. Normal cap refill. Lungs: Bi-basilar crackles but improving from yesterday, no wheezing, no consolidations, no respiratory distress. Abdomen: Soft, nontender, nondistended, normal bowel sounds. Ext: Edema nearly resolved. Neuro: Awake, alert Psych: Appropriate mood and affect (Cristian Landa MD R3) A/P Assessment and Plan 66 year old female presents with increasing exertional dyspnea and lower extremity edema, with a known history of congestive heart failure Discharge Planning Likely discharge today, pending correction of hypokalemia. Will add spironolactone to her medications, will need close monitoring of potassium and renal panel outpatient. Will need close follow up with her council on aging director as an outpatient. Also needs close follow up with her PCP. Left neck lymph node needs to be followed as an outpatient. (Cristian Landa MD R3) Attending Attestation Patient seen and examined. Case reviewed and discussed with the resident team. Agree with plan of care as discussed with me and documented in the resident note. she is improved and ready to go home. discussed at length some of the mechanics and pathophysiology of CHF. she will continue daily weights and contact her Drs when she is having changes and hopefully avoid future hospitalizations (Isela Cardenas MD) Problem List: (1) Acute exacerbation of congestive heart failure ICD Codes: I50.9 - Heart failure, unspecified Status: Acute Plan: Presenting with exertional dyspnea and increasing lower extremity edema for the past week. Cardiomegaly on x-ray. Bilateral pleural effusions, left greater than right. BNP significantly elevated to 3767, but now trending down. EKG showing no ST segment changes, has unifocal PVC's, inverted T waves laterally. ECHO from 04/07/16 shows left ventricular systolic dysfunction (EF 40% ), mild LVH, moderate mitral regurgitation, mild aortic insufficiency, mild to moderate pulmonary hypertension. Patient known to Dr. Mae. ECHO during this visit shows EF of 30 to 35%, continued moderate mitral regurgitation, and continued pulmonary hypertension. - Consulted cardiology, Dr. Mae. Appreciate recommendations. - Decreased Lasix to 40 mg PO daily - Give potassium chloride 40 meQ daily while getting Lasix. Given allergy list discussed with pharmacist giving potassium chloride. Very low likelihood that she would have an allergic reaction to KCl, but we will monitor closely. - Continue carvedilol 25 mg bid, enalapril 20 mg bid. - Added spironolactone to regimen, will need close monitoring of potassium and renal panel, discussed this with patient. - Pulse oximetry and supplemental O2 as needed. (2) Pulmonary hypertension ICD Codes: I27.20 - Pulmonary hypertension, unspecified Status: Chronic Plan: Mild to moderate pulmonary hypertension on past ECHO. Likely secondary to heart failure and mitral regurgitation. - Optimize heart function, see plan for heart failure. - Periodic ECHOs for monitoring - Cardiology on board. (3) Mitral regurgitation ICD Codes: I34.0 - Nonrheumatic mitral (valve) insufficiency Status: Chronic Plan: Moderate mitral regurgitation on last ECHO. Also with mild LVH. - Repeat ECHO - Cardiology on board - Will need regular ECHO's as an outpatient to track progression (4) Head and neck lymphadenopathy ICD Codes: R59.1 - Generalized enlarged lymph nodes Status: Acute Plan: Left neck soft mobile lymph node for the past 3 weeks, likely reactive from recent upper respiratory illness. Also with some recent unintentional weight loss. No fevers or night sweats. - Will need to be followed as an outpatient and further workup needed if not resolving soon. - Check peripheral smear for some abnormalities noted on CBC with diff (5) Hypertension ICD Codes: I10 - Essential (primary) hypertension Status: Chronic Plan: - Carvedilol 25 mg bid - Enalapril 40 mg q24hrs - Clonidine PRN - Monitor blood pressures (6) Chronic kidney disease ICD Codes: N18.9 - Chronic kidney disease, unspecified Status: Chronic Plan: Creatinine is at baseline per prior labs. - Avoid nephrotoxic agents - Renally dose medications - Improve cardiac function (7) Nutrition, metabolism, and development symptoms ICD Codes: R63.8 - Other symptoms and signs concerning food and fluid intake Status: Acute Plan: PO fluids Heart healthy diet with sodium restriction Potassium low, will replace. Will order a BMP for after discharge. Monitor I's and O's and daily weights (8) No contraindication to deep vein thrombosis (DVT) prophylaxis ICD Codes: Z78.9 - Other specified health status Status: Acute Plan: Lovenox 40 mg daily, refusing so will add bilateral SCD's Encourage mobilization Consult physical therapy (Cristian Landa MD R3) Problem Qualifiers (1) Acute exacerbation of congestive heart failure: Qualified Codes: I50.43 - Acute on chronic combined systolic (congestive) and diastolic (congestive) heart failure (2) Mitral regurgitation: Qualified Codes: I34.0 - Nonrheumatic mitral (valve) insufficiency (3) Hypertension: Qualified Codes: I10 - Essential (primary) hypertension Cristian Landa MD R3 Jul 08, 2017 10:28 Isela Cardenas MD Jul 12, 2017 11:21
[2017-07-08] MEDS ORDERED: SPIR25 PO (10:32)
[2017-07-08] MEDS ORDERED: KLOR10TA PO (10:32)
[2017-07-08 12:01] VITALS: BP 128/92; PULSE 68; RESP 20; TEMP 98.3; O2SAT 95
[2017-07-08] MEDS: ENOXAPARIN SODIUM 40 MG/0.4 ML SYRINGE SQ SCH (12:34)
--- NOTE | 2017-07-08 15:08 | PD.CARD.PN ---
Subjective Subjective Remarks No CP, SOB and edema markedly improved, feels fine Objective Medications Current Medications Medications (Trade) Dose Ordered Sig/James Route Start Time Stop Time Status Last Admin (NS Flush) 2 ml UNSCH PRN IVF 07/06/17 11:00 (Coreg) 25 mg BID PO 07/06/17 12:30 07/08/17 09:46 (Vasotec) 20 mg BID PO 07/06/17 12:30 07/08/17 09:45 (Theragran M Tab) 1 tab DAILY PO 07/06/17 12:30 07/07/17 09:04 (NS Flush) 2 ml BID IV FLUSH 07/06/17 21:00 07/08/17 09:46 (NS Flush) 2 ml UNSCH PRN IV FLUSH 07/06/17 12:45 (Lovenox Inj) 40 mg Q24H SQ 07/06/17 14:00 (Zofran Inj) 4 mg Q6H PRN IVP 07/06/17 12:45 (Narcan Inj) 0.4 mg UNSCH PRN IV PUSH 07/06/17 12:45 (Aleyda-Colace) 1 tab BID PO 07/06/17 21:00 07/07/17 09:03 (Milk Of Magnesia Liq) 30 ml Q12H PRN PO 07/06/17 12:45 (Senokot) 17.2 mg Q12H PRN PO 07/06/17 12:45 (Dulcolax Supp) 10 mg DAILY PRN RECTAL 07/06/17 12:45 (Lactulose Liq) 30 ml DAILY PRN PO 07/06/17 12:45 (Catapres) 0.2 mg Q6H PRN PO 07/06/17 13:15 (KCl) 40 meq DAILY PO 07/07/17 10:45 07/08/17 09:45 (Aldactone) 25 mg DAILY PO 07/08/17 09:00 (Lasix) 40 mg DAILY PO 07/09/17 09:00 Vital Signs / I&O Vital Signs Date Time Temp Pulse Resp B/P (MAP) Pulse Ox O2 Delivery O2 Flow Rate FiO2 07/08/17 12:01 98.3 68 20 128/92 (104) 95 07/08/17 08:13 98.1 73 20 145/102 (116) 95 07/08/17 04:00 97.5 66 18 140/111 (121) 98 07/08/17 00:00 98.3 62 18 126/88 (101) 100 07/08/17 00:00 74 07/07/17 20:00 69 07/07/17 20:00 64 07/07/17 20:00 98.2 65 16 122/87 (99) 99 07/07/17 17:41 98 21 07/07/17 16:02 98.6 66 20 141/94 (110) 98 I/O 07/07/17 07/07/17 07/07/17 07/08/17 07/08/17 07/08/17 07:00 15:00 23:00 07:00 15:00 23:00 Intake Total 240 ml 600 ml Output Total 200 ml 1000 ml 900 ml Balance 40 ml -400 ml -900 ml Intake Oral 240 ml 600 ml Output Urine Total 200 ml 1000 ml 900 ml # Bowel Movements 0 0 Physical Exam GENERAL: In NAD SKIN: Warm and dry. HEAD: Normocephalic. EYES: No scleral icterus. No injection or drainage. NECK: Supple, trachea midline. No JVD or lymphadenopathy. CARDIOVASCULAR: Regular rate and rhythm without murmurs, gallops, or rubs. RESPIRATORY: Breath sounds equal bilaterally. No accessory muscle use. Clear. GASTROINTESTINAL: Abdomen soft, non-tender, nondistended. MUSCULOSKELETAL: No cyanosis, trace edema. Laboratory Laboratory Tests Test 07/08/17 07:44 07/08/17 12:00 White Blood Count 5.3 TH/MM3 Red Blood Count 4.12 MIL/MM3 Hemoglobin 11.5 GM/DL Hematocrit 33.9 % Mean Corpuscular Volume 82.3 FL Mean Corpuscular Hemoglobin 28.0 PG Mean Corpuscular Hemoglobin Concent 34.0 % Red Cell Distribution Width 15.5 % Platelet Count 179 TH/MM3 Mean Platelet Volume 10.6 FL Blood Urea Nitrogen 19 MG/DL Creatinine 1.08 MG/DL Random Glucose 88 MG/DL Calcium Level 7.9 MG/DL Magnesium Level 1.8 MG/DL Sodium Level 142 MEQ/L Potassium Level 2.9 MEQ/L 3.6 MEQ/L Chloride Level 104 MEQ/L Carbon Dioxide Level 32.3 MEQ/L Anion Gap 6 MEQ/L Estimat Glomerular Filtration Rate 61 ML/MIN Iron Level 31 MCG/DL Total Iron Binding Capacity 375 MCG/DL Percent Iron Saturation 8.3 % Ferritin 23 NG/ML B-Type Natriuretic Peptide 1449 PG/ML Assessment and Plan Problem List: (1) Acute exacerbation of congestive heart failure ICD Codes: I50.9 - Heart failure, unspecified Status: Acute (2) Cardiomyopathy ICD Codes: I42.9 - Cardiomyopathy, unspecified (3) Hypertension ICD Codes: I10 - Essential (primary) hypertension Status: Chronic (4) Mitral regurgitation ICD Codes: I34.0 - Nonrheumatic mitral (valve) insufficiency Status: Chronic (5) Chronic kidney disease ICD Codes: N18.9 - Chronic kidney disease, unspecified Status: Chronic Assessment and Plan CHF improved. Continue current program for CHF. Increase activity. Will schedule outpatient f/u after discharge. Pt again counseled on low Na diet. Discharge home as planned. Problem Qualifiers (1) Acute exacerbation of congestive heart failure: Qualified Codes: I50.43 - Acute on chronic combined systolic (congestive) and diastolic (congestive) heart failure (2) Hypertension: Qualified Codes: I10 - Essential (primary) hypertension (3) Mitral regurgitation: Qualified Codes: I34.0 - Nonrheumatic mitral (valve) insufficiency Kvng Mae MD Jul 08, 2017 15:08
[2017-07-09] MEDS ORDERED: FUROSEMIDE 40 MG TAB PO SCH (09:00)
--- NOTE | 2017-07-09 17:07 | HHI.DS ---
Discharge Summary Admission Date Jul 06, 2017 at 12:14 Discharge Date: Jul 08, 2017 Admitting Diagnosis CHF (1) Acute exacerbation of congestive heart failure Plan: Presenting with exertional dyspnea and increasing lower extremity edema for the past week. Cardiomegaly on x-ray. Bilateral pleural effusions, left greater than right. BNP significantly elevated to 3767, but now trending down. EKG showing no ST segment changes, has unifocal PVC's, inverted T waves laterally. ECHO from 04/07/16 shows left ventricular systolic dysfunction (EF 40% ), mild LVH, moderate mitral regurgitation, mild aortic insufficiency, mild to moderate pulmonary hypertension. Patient known to Dr. Gallardo. ECHO during this visit shows EF of 30 to 35%, continued moderate mitral regurgitation, and continued pulmonary hypertension. - Consulted cardiology, Dr. Gallardo. Appreciate recommendations. - Decreased Lasix to 40 mg PO daily - Give potassium chloride 40 meQ daily while getting Lasix. Given allergy list discussed with pharmacist giving potassium chloride. Very low likelihood that she would have an allergic reaction to KCl, but we will monitor closely. - Continue carvedilol 25 mg bid, enalapril 20 mg bid. - Added spironolactone to regimen, will need close monitoring of potassium and renal panel, discussed this with patient. - Pulse oximetry and supplemental O2 as needed. ICD Codes: I50.9 - Heart failure, unspecified Status: Acute (2) Pulmonary hypertension Plan: Mild to moderate pulmonary hypertension on past ECHO. Likely secondary to heart failure and mitral regurgitation. - Optimize heart function, see plan for heart failure. - Periodic ECHOs for monitoring - Cardiology on board. ICD Codes: I27.20 - Pulmonary hypertension, unspecified Status: Chronic (3) Mitral regurgitation Plan: Moderate mitral regurgitation on last ECHO. Also with mild LVH. - Repeat ECHO - Cardiology on board - Will need regular ECHO's as an outpatient to track progression ICD Codes: I34.0 - Nonrheumatic mitral (valve) insufficiency Status: Chronic (4) Head and neck lymphadenopathy Plan: Left neck soft mobile lymph node for the past 3 weeks, likely reactive from recent upper respiratory illness. Also with some recent unintentional weight loss. No fevers or night sweats. - Will need to be followed as an outpatient and further workup needed if not resolving soon. - Check peripheral smear for some abnormalities noted on CBC with diff ICD Codes: R59.1 - Generalized enlarged lymph nodes Status: Acute (5) Hypertension Plan: - Carvedilol 25 mg bid - Enalapril 40 mg q24hrs - Clonidine PRN - Monitor blood pressures ICD Codes: I10 - Essential (primary) hypertension Status: Chronic (6) Chronic kidney disease Plan: Creatinine is at baseline per prior labs. - Avoid nephrotoxic agents - Renally dose medications - Improve cardiac function ICD Codes: N18.9 - Chronic kidney disease, unspecified Status: Chronic (7) Nutrition, metabolism, and development symptoms Plan: PO fluids Heart healthy diet with sodium restriction Potassium low, will replace. Will order a BMP for after discharge. Monitor I's and O's and daily weights ICD Codes: R63.8 - Other symptoms and signs concerning food and fluid intake Status: Acute (8) No contraindication to deep vein thrombosis (DVT) prophylaxis Plan: Lovenox 40 mg daily, refusing so will add bilateral SCD's Encourage mobilization Consult physical therapy ICD Codes: Z78.9 - Other specified health status Status: Acute Brief History 66 year old female, patient of Dr. Monreal, sent by Dr. Monreal today from the [facility] clinic. She is accompanied by her . She is presenting with a one week history of increasing exertional dyspnea and increasing lower extremity edema. She has a known history of CHF with an EF one year ago of 40%. She is followed by Dr. Gallardo. She also has a history of pulmonary hypertension, moderate mitral valve regurgitation, and moderate pulmonary hypertension. 3 weeks ago she developed an acute cough with clear sputum production and was diagnosed with acute bronchitis. The cough is starting to resolve now. 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 Lately, she is noticing that she gets short of breath easily as she is performing her duties. She also has Lasix that she takes as needed, and is taking it every day as she is noticing increasing edema in both legs. She notes that she has been eating more junk food than usual recently because of the holidays. She was first diagnosed with heart failure in 2009. She's been hospitalized twice before for CHF exacerbations. The last time was in 2016. On review of systems, she has no chest pain, abdominal pain, calf tenderness or pain, night sweats, fevers. Review of systems is positive for coughing, nausea for 2 days, vomit X2, recent weight loss unintentional, left neck lymph node for the past couple weeks, and white sputum production. CBC/BMP: 07/08/17 0744 07/08/17 1200 Significant Findings Laboratory Tests Test 07/07/17 09:43 07/08/17 07:44 07/08/17 12:00 Blood Urea Nitrogen 25 MG/DL (7-18) 19 MG/DL (7-18) Creatinine 1.26 MG/DL (0.50-1.00) 1.08 MG/DL (0.50-1.00) Random Glucose 108 MG/DL (74-106) Calcium Level 8.4 MG/DL (8.5-10.1) 7.9 MG/DL (8.5-10.1) Potassium Level 3.4 MEQ/L (3.5-5.1) 2.9 MEQ/L (3.5-5.1) Estimat Glomerular Filtration Rate 51 ML/MIN (>89) 61 ML/MIN (>89) B-Type Natriuretic Peptide 1901 PG/ML (0-100) 1449 PG/ML (0-100) Hemoglobin 11.5 GM/DL (11.6-15.3) Hematocrit 33.9 % (35.0-46.0) Carbon Dioxide Level 32.3 MEQ/L (21.0-32.0) Iron Level 31 MCG/DL (50-170) Percent Iron Saturation 8.3 % (20-50) PE at Discharge General: Sitting up in bed, no distress, good spirits Skin: No rashes or lesions HEENT: Normocephalic, no conjunctivitis, no nasal discharge, normal pharynx, wearing dentures Neck: JVD decreased, no thyromegaly. Has left neck lymph node that is soft, mobile, present for past couple weeks per patient. CV: RRR, no murmurs, rubs, or gallops, occasional extra beat. Reviewed telemetry , no atrial fibrillation. Pulses intact distally. Normal cap refill. Lungs: Bi-basilar crackles but improving from yesterday, no wheezing, no consolidations, no respiratory distress. Abdomen: Soft, nontender, nondistended, normal bowel sounds. Ext: Edema nearly resolved. Neuro: Awake, alert Psych: Appropriate mood and affect Hospital Course 66 year old female with a known history of congestive heart failure, moderate mitral regurgitation, and moderate pulmonary hypertension presented with increasing exertional dyspnea and lower extremity edema for one week. She was found to have cardiomegaly, bilateral pleural effusions, significantly elevated BNP consistent with a CHF exacerbation. She is known to Dr. Gallardo who was consulted on the case. She has an ECHO a year ago with EF of 40%. Her ECHO this admission showed reduced ejection fraction down to 30-35%. She was treated with great effect with IV Lasix. Peripheral edema resolved. Her renal function improved. She was walking the halls without difficulty before discharge. She was doing well on room air. Lasix was weaned down. BNP trended down. She will continue carvedilol, enalapril, and Lasix at discharge. Spironolactone was added to her regimen due to reduced ejection fraction. A renal function panel and potassium were ordered for her to get in 2 to 3 days after discharge. The importance of having her renal function and potassium followed while on diuretics was stressed to her. She was counseled on sodium and fluid restriction. She will follow up with Dr. Gallardo and her primary care provider within a week of discharge. She was instructed to return to the hospital or call her doctor right away if she starts to feel worse rather than better. Pt Condition on Discharge: Good Discharge Disposition: Discharge Home Discharge Instructions DIET: Follow Instructions for: Heart Healthy Diet Activities you can perform: Regular-No Restrictions Follow up Referrals: Cardiology - 1 Week Cardiology @ [facility] PCP Follow-up - 1 Week PCP Follow-up @ [facility] New Orders: BASIC METABOLIC PROF - 2-3 Days New Medications: Potassium Chloride ER (Klor-Con 10) 10 Meq Tab 20 MEQ PO DAILY, #30 TAB Spironolactone (Aldactone) 25 Mg Tab 25 MG PO DAILY, #30 TAB Continued Medications: Albuterol 8.5 GM Inh (Proair Hfa 8.5 GM Inh) 90 Mcg/Act Aer 2 PUFF INH Q4-6H PRN for SHORTNESS OF BREATH, #1 INHALER 0 Refills 108 mcg/actuation Amlodipine (Amlodipine) 10 Mg Tab 10 MG PO DAILY for Blood Pressure Management, #30 TAB 0 Refills Carvedilol (Carvedilol) 25 Mg Tab 25 MG PO BID, #60 TAB 11 Refills Enalapril (Enalapril) 20 Mg Tab 20 MG PO BID, #30 TAB 0 Refills Furosemide (Furosemide) 40 Mg Tab 40 MG PO DAILY PRN for Edema, #90 TAB 3 Refills Multiple Vitamins W/ Minerals (One Daily For Women 50+A) 1 Tab Tab 1 TAB PO DAILY, #30 TAB Cristian Landa MD R3 Jul 09, 2017 17:07
[2017-07-13] MEDS ORDERED: FERR325T18 PO (09:52)
== END 2017-07-08 16:00 | disposition home or self-care (01) | DRG 291 ==
LOC: NEPE 10:21 → NEDA 12:14 → N04B 16:53
PROVIDERS: ADMIT Family Medicine; ATTEND Family Medicine
DX: I13.0 Hypertensive heart and chronic kidney disease with heart failure and stage 1 through stage 4 chronic kidney disease, or unspecified chronic kidney disease (principal); I50.43 Acute on chronic combined systolic (congestive) and diastolic (congestive) heart failure; I27.20 Pulmonary hypertension, unspecified; I42.9 Cardiomyopathy, unspecified; R59.0 Localized enlarged lymph nodes; R63.4 Abnormal weight loss; I08.0 Rheumatic disorders of both mitral and aortic valves; N18.3 Chronic kidney disease, stage 3 (moderate); E87.6 Hypokalemia; Z80.0 Family history of malignant neoplasm of digestive organs; Z80.1 Family history of malignant neoplasm of trachea, bronchus and lung; Z82.49 Family history of ischemic heart disease and other diseases of the circulatory system; Z88.2 Allergy status to sulfonamides; Z91.11 Patient's noncompliance with dietary regimen
CPT/HCPCS: 71010; 80048; 82728; 83540; 83550; 83735; 83880; 84132; 85025; 85027; 85060; 93005; 93306; 96374; J1940

== ENCOUNTER 2017-08-10 19:29 | Inpatient (IN) | payer MEDICARE ==
[2017-08-10] VITALS (22 sets, daily range): BP systolic 100–195; BP diastolic 63–141; PULSE 61–192; RESP 14–30; TEMP 98.7; O2SAT 93–100
[~2017-08-10] VITALS: Ht 165.1 cm; Wt 72.7 kg
[~2017-08-10 19:29] MED LIST changes: +FERR325T18 PO; -FLUT50SP EACH NARE; +KLOR10TA PO; +SPIR25 PO
[2017-08-10] MEDS ORDERED: LORazepam 2 MG/ML VIAL IV PUSH ONE ×4 (19:45→20:45)
[2017-08-10] MEDS ORDERED: SODIUM CHLORIDE 0.9% FLUSH 10 ML FLUSH IVF PRN (19:45)
[2017-08-10] MEDS ORDERED: NITROGLYCERIN-D5W 50 MG/250 ML 0 ML ONE (19:59)
[2017-08-10] MEDS ORDERED: ASPIRIN 325 MG TAB PO ONE (20:00)
[2017-08-10] MEDS ORDERED: FUROSEMIDE 40 MG/4 ML VIAL IV PUSH ONE (20:00)
[2017-08-10] MEDS ORDERED: SODIUM CHLOR 0.9% 250 ML INJ 250 ML IV ONE (20:00)
[2017-08-10] MEDS ORDERED: NITROGLYCERIN 0.4 MG SL 25 TABS/BTL SL ONE ×2 (20:00→20:15)
--- NOTE | 2017-08-10 20:02 | RADRPT ---
EXAM DATE/TIME: 08/10/2017 19:50 [facility] COMPARISON: No previous studies available for comparison. INDICATIONS : Stroke alert, slurred speech and left sided facial droop. RADIATION DOSE: 56.35 CTDIvol (mGy) This report was called by Dr. Martel to Dr. Whatley and Dr. Ndiaye at 7: 55 PM MEDICAL HISTORY : Hypertension. SURGICAL HISTORY : None. ENCOUNTER: Initial ACUITY: 1 day PAIN SCALE: 0/10 LOCATION: cranial TECHNIQUE: Multiple contiguous axial images were obtained of the head. Using automated exposure control and adj ustment of the mA and/or kV according to patient size, radiation dose was kept as low as reasonably a chievable to obtain optimal diagnostic quality images. DICOM format image data is available electro nically for review and comparison. FINDINGS: CEREBRUM: The ventricles are normal for age. No evidence of midline shift, mass lesion, hemorrhage or acute in farction. No extra-axial fluid collections are seen. POSTERIOR FOSSA: The cerebellum and brainstem are intact. The 4th ventricle is midline. The cerebellopontine angle i s unremarkable. EXTRACRANIAL: The visualized portion of the orbits is intact. SKULL: The calvaria is intact. No evidence of skull fracture. CONCLUSION: Negative noncontrast head CT. Trung Martel MD on August 10, 2017 at 19:58 Board Certified Radiologist. This report was verified electronically.
[2017-08-10] MEDS ORDERED: ETOMIDATE 40 MG/20 ML VIAL ONE (20:11)
[2017-08-10 20:12] LABS: AUTOMATED NEUTROPHIL # 4.5 TH/MM3 (1.8-7.7); BASOPHIL # 0.1 TH/MM3 (0-0.2); EOSINOPHIL # 0.1 TH/MM3 (0-0.4); EOSINOPHIL % 1.8 % (0.0-4.0); HEMATOCRIT 39.7 % (35.0-46.0); HEMOGLOBIN 13.2 GM/DL (11.6-15.3); LYMPH % 26.4 % (9.0-44.0); LYMPHOCYTE # 1.9 TH/MM3 (1.0-4.8); MEAN CELL VOLUME 81.8 FL (80.0-100.0); MEAN CORPUSCULAR HEMOGLOBIN 27.2 PG (27.0-34.0); MEAN CORPUSCULAR HGB CONC 33.2 % (32.0-36.0); MEAN PLATELET VOLUME 11.1 FL (7.0-11.0); MONO % 8.6 % (0.0-8.0); MONOCYTE # 0.6 TH/MM3 (0-0.9); NEUT % 62.2 % (16.0-70.0); PLATELET COUNT 252 TH/MM3 (150-450); RED BLOOD COUNT 4.85 MIL/MM3 (4.00-5.30); RED CELL DISTRIBUTION WIDTH 16.9 % (11.6-17.2); WHITE BLOOD COUNT 7.3 TH/MM3 (4.0-11.0)
[2017-08-10] MEDS ORDERED: ETOMIDATE 20 MG/10 ML VIAL IV PUSH ONE (20:15)
[2017-08-10] MEDS ORDERED: LABETALOL HCL 100 MG/20 ML VIAL IV PUSH ONE ×3 (20:15→21:30)
[2017-08-10] MEDS ORDERED: ASPIRIN 600 MG SUPP RECTAL ONE (20:15)
[2017-08-10] MEDS ORDERED: SUCCINYLCHOLINE CHLORIDE 100 MG/5 ML SYRINGE IV PUSH ONE (20:15)
--- NOTE | 2017-08-10 20:18 | RADRPT ---
EXAM DATE/TIME: 08/10/2017 19:44 [facility] COMPARISON: No previous studies available for comparison. INDICATIONS : Dizziness; Stroke alert. MEDICAL HISTORY : None. SURGICAL HISTORY : None. ENCOUNTER: Initial ACUITY: 1 day PAIN SCORE: 0/10 LOCATION: Bilateral chest FINDINGS: Mild hazy basilar predominant infiltrates seen on both sides. There is a superimposed area of mild at electasis and/or scarring of the left mid lung. No large effusion seen. No pneumothorax. There is mil d cardiomegaly. CONCLUSION: Suspected early/mild failure. Focal atelectasis or scarring left midlung as well. Trung Martel MD on August 10, 2017 at 20:15 Board Certified Radiologist. This report was verified electronically.
[2017-08-10 20:24] LABS: AST (GOT) 27 U/L (15-37); BICARBONATE 24.3 MEQ/L (21.0-32.0); BLOOD UREA NITROGEN 26 MG/DL (7-18); CALCIUM 8.3 MG/DL (8.5-10.1); CHLORIDE 103 MEQ/L (98-107); CREATININE 1.78 MG/DL (0.50-1.00); GLOMERULAR FILTRATION RATE 35 ML/MIN (>89); GLUCOSE,RANDOM 205 MG/DL (74-106); SODIUM (NA) 138 MEQ/L (136-145)
[2017-08-10 20:25] LABS: ALT (GPT) 32 U/L (10-53)
[2017-08-10] MEDS ORDERED: HYDR25TA5 PO (20:25)
[2017-08-10 20:28] LABS: ALKALINE PHOSPHATASE 50 U/L (45-117); TOTAL BILIRUBIN ADULT 1.2 MG/DL (0.2-1.0); TOTAL PROTEIN 6.1 GM/DL (6.4-8.2); TROPONIN I 0.14 NG/ML (0.02-0.05)
[2017-08-10 20:41] LABS: INTERNATIONAL NORMALIZED RATIO 1.2 RATIO; PROTHROMBIN TIME - PATIENT 12.3 SEC (9.8-11.6)
[2017-08-10] MEDS ORDERED: diphenhydrAMINE HCL 50 MG/ML VIAL IV PUSH ONE (20:45)
[2017-08-10] MEDS ORDERED: methylPREDNISolone SOD SUCC 125 MG/2 ML VIAL IV PUSH ONE (20:45)
[2017-08-10] MEDS ORDERED: ASPIRIN 300 MG SUPP RECTAL ONE (20:45)
[2017-08-10] MEDS ORDERED: IOHEXOL 350 MG/ML 10 ML VIAL (for RAD DIAG) IVCONTRAST ONE (21:00)
[2017-08-10] MEDS ORDERED: PROPOFOL 1000 MG/100 ML INJ 100 ML ONE (21:00)
--- NOTE | 2017-08-10 21:00 | RADRPT ---
EXAM DATE/TIME: 08/10/2017 20:24 [facility] COMPARISON: No previous studies available for comparison. INDICATIONS : Post intubation. MEDICAL HISTORY : Congestive heart failure. Hypertension Bronchitis, Sinusitis, Arrhythmia. SURGICAL HISTORY : None. ENCOUNTER: Initial ACUITY: 1 day PAIN SCORE: Non-responsive. LOCATION: Bilateral chest FINDINGS: Patient is now intubated. Endotracheal tube tip is approximately 4 cm above the josh. There is a na sogastric tube coursing into the stomach. Mild edema-like pattern of the bases. Mild focal atelectasis of the left mid lung. This is unchanged. Mild cardiomegaly again seen. CONCLUSION: Appropriate position of the endotracheal tube and nasogastric tube. Mild edema and left midlung atele ctasis unchanged. Trung Martel MD on August 10, 2017 at 20:57 Board Certified Radiologist. This report was verified electronically.
--- NOTE | 2017-08-10 21:20 | PD ---
"HPI . Stroke alert Chief Complaint: Stroke Alert Time Seen by Provider: 19:38 Travel History International Travel<30 days: No Contact w/Intl Traveler<30days: No Traveled to known affect area: No History of Present Illness HPI 66-year-old female presents with sudden onset left facial droop and dysarthria that began at 645 this evening 1 hour prior to presentation. Patient brought in by| by her family. Patient has no complaints of headache, extremity weakness , chest pain, shortness of breath. Patient does note some anxiety. No documented fever no documented head trauma recently. No bleeding dyscrasias. [facility] Past Medical History Narrative Medical Past medical history reviewed Arthritis: Yes (minor) Heart Rhythm Problems: Yes (arrhythmia) Cardiovascular Problems: Yes Congestive Heart Failure: Yes Endocrine: Yes Genitourinary: No Hypertension: Yes Immune Disorder: No Musculoskeletal: Yes Neurologic: No Psychiatric: No Reproductive: No Respiratory: Yes (bronchitis, sinusitis) Thyroid Disease: Yes (watching) Ulcer: Yes Menopausal: Yes Social History Alcohol Use: No Tobacco Use: No Substance Use: No Allergies-Medications (Allergen,Severity, Reaction): Coded Allergies: iodine (Unverified Allergy, Severe, sneezing, chest tightness, 08/10/17) potassium iodide (Unverified Allergy, Severe, sneezing, chest tightness, ) povidone-iodine (Unverified Allergy, Severe, sneezing, chest tightness, ) sodium iodide (Unverified Allergy, Severe, sneezing, chest tightness, 08/10) sodium iodide (Unverified Allergy, Severe, sneezing, chest tightness, 08/10) sulfamethoxazole (Unverified Allergy, Intermediate, abdominal pain, ) trimethoprim (Unverified Allergy, Intermediate, abdominal pain, 08/10/17) Reported Meds & Prescriptions Reported Meds & Active Scripts Active Ferrous Sulfate 325 Mg (65 Mg Iron) Tablet 325 Mg PO BIDPC Klor-Con 10 (Potassium Chloride) 10 Meq Tab 20 Meq PO DAILY Aldactone (Spironolactone) 25 Mg Tab 25 Mg PO DAILY Proair Hfa 8.5 GM Inh (Albuterol Sulfate) 90 Mcg/Act Aer 2 Puff INH Q4-6H PRN 108 mcg/actuation Carvedilol 25 Mg Tab 25 Mg PO BID Furosemide 40 Mg Tab 40 Mg PO DAILY PRN Enalapril (Enalapril Maleate) 20 Mg Tab 20 Mg PO BID One Daily For Women 50+A (Multiple Vitamins W/ Minerals) 1 Tab Tab 1 Tab PO DAILY Amlodipine (Amlodipine Besylate) 10 Mg Tab 10 Mg PO DAILY Reported Hydrochlorothiazide 25 Mg Tab 25 Mg PO DAILY Narrative Medication Allergies and medications reviewed Review of Systems Except as stated in HPI: all other systems reviewed are Neg General / Constitutional: No: Fever Eyes: No: Visual changes HENT: No: Headaches, Vertigo, Lightheadedness, Neck Stiffness, Neck Pain Cardiovascular: No: Chest Pain or Discomfort, Palpitations, Irregular Rhythm, Tachycardia, Diaphoresis, Syncope, Dyspnea on exertion, Edema, Claudication Respiratory: No: Cough, Shortness of Breath, Wheezing, Orthopnea Gastrointestinal: No: Abdominal Pain Genitourinary: No: Dysuria Musculoskeletal: No: Pain Skin: No Rash Neurologic: Positive: Focal Abnormalities, No: Weakness, Dizziness, Syncope, Coordination Problem, Ataxia, Headache, Change in Mentation, Slurred Speech, Paresthesia, Incontinence, Seizures, Sensory Disturbance Psychiatric: Positive: Anxiety, No: Depression Endocrine: No: Polydipsia Hematologic/Lymphatic: No: Easy Bruising Physical Exam Narrative GENERAL: Awake and alert, anxious but otherwise no acute distress. Mildly tachycardic at 100 regular rhythm. SKIN: Warm and dry. Color is normal no diaphoresis cyanosis or pallor HEAD: Atraumatic. Normocephalic. EYES: Pupils equal and round. No scleral icterus. No injection or drainage. ENT: No nasal bleeding or discharge. Mucous membranes pink and moist. NECK: Trachea midline. No JVD. Supple nontender no bruits CARDIOVASCULAR: Regular rate and rhythm. S1-S2 no murmurs rubs gallops RESPIRATORY: No accessory muscle use. Clear to auscultation. Breath sounds equal bilaterally. GASTROINTESTINAL: Abdomen soft, non-tender, nondistended. Hepatic and splenic margins not palpable. MUSCULOSKELETAL: Extremities without clubbing, cyanosis, or edema. No obvious deformities. NEUROLOGICAL: Awake and alert. No obvious cranial nerve deficits. Motor grossly within normal limits. Five out of 5 muscle strength in the arms and legs. Normal speech. PSYCHIATRIC: Appropriate mood and affect; insight and judgment normal. Data Data Last Documented VS Vital Signs Date Time Temp Pulse Resp B/P (MAP) Pulse Ox O2 Delivery O2 Flow Rate FiO2 08/10/17 20:28 100 Ventilator 08/10/17 19:41 107 18 08/10/17 19:31 98.7 Orders Orders Electrocardiogram (08/10/17 19:38) Prothrombin Time / Inr (Pt) (08/10/17 19:38) Act Partial Throm Time (Ptt) (08/10/17 19:38) Complete Blood Count With Diff (08/10/17 19:38) Comprehensive Metabolic Panel (08/10/17 19:38) Creatine Kinase (Cpk) (08/10/17 19:38) Drug Screen, Random Urine (08/10/17 19:38) Troponin I (08/10/17 19:38) Urinalysis - C+S If Indicated (08/10/17 19:38) Ct Brain W/O Iv Contrast(Rout) (08/10/17 19:38) Chest, Single Ap (08/10/17 19:38) Ecg Monitoring (08/10/17 19:38) Iv Access Insert/Monitor (08/10/17 19:38) Oximetry (08/10/17 19:38) Sodium Chloride 0.9% Flush (Ns Flush) (08/10/17 19:45) Lorazepam Inj (Ativan Inj) (08/10/17 19:45) Sodium Chlor 0.9% 250 Ml Inj (Ns 250 Ml (08/10/17 20:00) Nitroglycerin-D5w 50 Mg/250 Ml (Nitrogly (08/10/17 19:59) Nitroglycerin Sl (Nitrostat Sl) (08/10/17 20:00) Furosemide Inj (Lasix Inj) (08/10/17 20:00) Aspirin (Aspirin) (08/10/17 20:00) Labetalol Inj (Trandate Inj) (08/10/17 20:15) Drug Screen, Random Urine (08/10/17 20:01) I-Stat Profile (08/10/17 20:03) I-Stat Creatinine (08/10/17 20:03) I-Stat Profile (08/10/17 19:45) Lorazepam Inj (Ativan Inj) (08/10/17 20:15) Etomidate Inj (Amidate Inj) (08/10/17 20:11) Labetalol Inj (Trandate Inj) (08/10/17 20:15) Nitroglycerin Sl (Nitrostat Sl) (08/10/17 20:15) Etomidate Inj (Amidate Inj) (08/10/17 20:15) Succinylcholine Inj (Quelicin Inj) (08/10/17 20:15) Chest, Single Ap (08/10/17 ) Mri Brain W/O Contrast (08/10/17 20:10) Mra Brain W/O Contrast (Cow) (08/10/17 20:10) Mra Carotids W Contrast (08/10/17 20:10) Lorazepam Inj (Ativan Inj) (08/10/17 20:15) Aspirin Supp (Aspirin Supp) (08/10/17 20:15) Cta Thor Abd Aorta W Iv C W3d (08/10/17 ) Cta Brain W Iv Contrast W 3d (08/10/17 ) Cta Neck W Iv Contrast W 3d (08/10/17 ) Diphenhydramine Inj (Benadryl Inj) (08/10/17 20:45) Methylprednisolone So Succ Inj (Solumedr (08/10/17 20:45) Aspirin Supp (Aspirin Supp) (08/10/17 20:45) Abdomen, Kub Only (08/10/17 ) Lorazepam Inj (Ativan Inj) (08/10/17 20:45) Propofol 1000 Mg/100 Ml Inj (Diprivan 10 (08/10/17 21:00) Propofol 1000 Mg/100 Ml Inj (Diprivan 10 (08/10/17 21:00) ^ Infusion (08/10/17 21:00) Labs Laboratory Tests Test 08/10/17 19:45 White Blood Count 7.3 TH/MM3 Red Blood Count 4.85 MIL/MM3 Hemoglobin 13.2 GM/DL Bedside Hemoglobin 13.9 G/DL Hematocrit 39.7 % Bedside Hematocrit 41.0 % Mean Corpuscular Volume 81.8 FL Mean Corpuscular Hemoglobin 27.2 PG Mean Corpuscular Hemoglobin Concent 33.2 % Red Cell Distribution Width 16.9 % Platelet Count 252 TH/MM3 Mean Platelet Volume 11.1 FL Neutrophils (%) (Auto) 62.2 % Lymphocytes (%) (Auto) 26.4 % Monocytes (%) (Auto) 8.6 % Eosinophils (%) (Auto) 1.8 % Basophils (%) (Auto) 1.0 % Neutrophils # (Auto) 4.5 TH/MM3 Lymphocytes # (Auto) 1.9 TH/MM3 Monocytes # (Auto) 0.6 TH/MM3 Eosinophils # (Auto) 0.1 TH/MM3 Basophils # (Auto) 0.1 TH/MM3 CBC Comment AUTO DIFF Differential Comment AUTO DIFF CONFIRMED Platelet Estimate NORMAL Platelet Morphology Comment ENLARGED Prothrombin Time 12.3 SEC Prothromb Time International Ratio 1.2 RATIO Activated Partial Thromboplast Time 22.7 SEC Bedside Sodium 139 MMOL/L Blood Urea Nitrogen 26 MG/DL Creatinine 1.78 MG/DL Random Glucose 205 MG/DL Total Protein 6.1 GM/DL Albumin 3.0 GM/DL Calcium Level 8.3 MG/DL Alkaline Phosphatase 50 U/L Aspartate Amino Transf (AST/SGOT) 27 U/L Alanine Aminotransferase (ALT/SGPT) 32 U/L Total Bilirubin 1.2 MG/DL Sodium Level 138 MEQ/L Potassium Level 3.4 MEQ/L Chloride Level 103 MEQ/L Carbon Dioxide Level 24.3 MEQ/L Bedside Potassium 3.2 MMOL/L Bedside Chloride 102 MMOL/L Anion Gap 11 MEQ/L Bedside Blood Urea Nitrogen 26 MG/DL Bedside Creatinine 1.7 MG/DL Estimat Glomerular Filtration Rate 35 ML/MIN Bedside Glucose 207 MG/DL Total Creatine Kinase 76 U/L Troponin I 0.14 NG/ML MDM Medical Decision Making Medical Screen Exam Complete: Yes Emergency Medical Condition: Yes Medical Record Reviewed: Yes Differential Diagnosis Acute stroke, acute pulmonary edema, aortic dissection Narrative Course Patient transferred down to CT status post a stroke alert. CT head negative. On transfer back from CT patient's blood pressure elevated acutely to 240/140, heart rate escalated rapidly to 195 bpm sinus tachycardia. Patient had shortness of breath but no chest pain. Patient was given labetalol 20 mg IV push, Lasix 40 mg IV push, but wasn't sublingual every 5 minutes 2, with improvement in patient's blood pressure. Patient had a presentation of acute pulmonary edema, patient was intubated using rapid sequence intubation with sedation of etomidate 20 mg IV push, succinylcholine 100 mg IV push. 7.5 [place] ET tube through visualized cords with equal bilateral sounds, chest rise and positive capnometry, verified by chest x-ray 24 cm at the teeth. Patient was transferred stat upon normalization of blood pressure to CT suite for CT angiogram of the aorta, which revealed a type B dissection with large mural thrombus, ED wet read while being performed, verified by radiology. Case discussed with CT surgery Dr. Marcus, who reviewed CAT scan. Care plan developed, maintain blood pressure at 110 systolic or lower, admitted to ICU, conservative management currently. Patient be admitted to intensive care unit. Diagnosis Primary Impression: Acute CVA (cerebrovascular accident) Additional Impression: Acute thoracic aortic dissection Admitting Information Admitting Physician Requests: Admit Murray Whatley MD Aug 10, 2017 21:20"
--- NOTE | 2017-08-10 21:22 | RADRPT ---
EXAM DATE/TIME: 08/10/2017 20:51 [facility] COMPARISON: No previous studies available for comparison. INDICATIONS : Tachycardia, hypertension. Evaluate for possible dissection. IV CONTRAST: 100 cc Omnipaque 350 (iohexol) IV ; Cumulative dose for multiple exams. RADIATION DOSE: 9.66 CTDIvol (mGy) MEDICAL HISTORY : Hypertension. SURGICAL HISTORY : None. ENCOUNTER: Initial ACUITY: 1 day PAIN SCALE: Non-responsive LOCATION: chest TECHNIQUE: Volumetric scanning was performed using a multi-row detector CT scanner. The data was post processed with a variety of visualization algorithms including full volume maximum intensity projection, multi -planar sliding thin slab reformation, curved planar reformation, and surface rendering techniques. Using automated exposure control and adjustment of the mA and/or kV according to patient size, radiat ion dose was kept as low as reasonably achievable to obtain optimal diagnostic quality images. DICOM format image data is available electronically for review and comparison. FINDINGS: Very heterogeneous contrast opacification within the lumen of the thoracic aorta beginning at the lev el of the mid arch. The configuration suggests a dissection flap with a prominent wind sock component . The heterogeneous attenuation within the lumen extends distally almost to the diaphragmatic hiatus. No acute abnormality is seen of the abdominal portion of the aorta. The dissection clearly does not involve the aortic branch vessels, which appear tortuous but otherwise normal. The ascending aorta is normal. There is cardiac enlargement, most conspicuous of the right atrium and the left ventricle. C oronary arteries grossly fill normally. Patchy consolidation seen in both lungs, most dense in the right upper lobe. Low attenuation small bi lateral pleural effusions are present. I don't see any evidence of aortic leak. In the abdomen, diverticulosis is seen of the sigmoid colon but no evidence of diverticulitis or othe r acute process. CONCLUSION: Type B aortic dissection. Unusual dissection flap with a prominent wind sock component of the thoraci c aorta beginning at the level of the mid arch and extending distal almost to the level of the diaphr agmatic hiatus. No leak or rupture demonstrated. Arch vessels and the ascending aorta and root are no t involved. Trung Martel MD on August 10, 2017 at 21:12 Board Certified Radiologist. This report was verified electronically.
[2017-08-10] MEDS: PROPOFOL 1000 MG/100 ML INJ 100 ML IV PRN (21:26)
[2017-08-10] MEDS ORDERED: LABETALOL INJ 500 MG in SODIUM CHLORIDE 0.9% INJ 150 ML IV PRN ×2 (21:30→22:00)
--- NOTE | 2017-08-10 21:30 | RADRPT ---
EXAM DATE/TIME: 08/10/2017 20:45 [facility] COMPARISON: No previous studies available for comparison. INDICATIONS : Stroke alert, slurred speech, left side weakness. IV CONTRAST: 100 cc Omnipaque 350 (iohexol) IV ; Cumulative dose for multiple exams. RADIATION DOSE: 9.66 CTDIvol (mGy) ; Combined studies MEDICAL HISTORY : Hypertension. SURGICAL HISTORY : None. ENCOUNTER: Initial ACUITY: 1 day PAIN SCALE: 0/10 LOCATION: cranial TECHNIQUE: Volumetric scanning was performed using a multi-row detector CT scanner. The data was post processed with a variety of visualization algorithms including full volume maximum intensity projection, multi -planar sliding thin slab reformation, curved planar reformation, and surface rendering techniques. Using automated exposure control and adjustment of the mA and/or kV according to patient size, radiat ion dose was kept as low as reasonably achievable to obtain optimal diagnostic quality images. DICO M format image data is available electronically for review and comparison. FINDINGS: There is nonfilling of the left A1 segment that I believe is developmental. There is normal filling o f the A2 and distal segments through a patent anterior communicating. 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 Nothing typical of acute vessel thrombosis. Posterior circulation is normal. No other aneurysms are s een. CONCLUSION: 1. No acute vessel thrombosis. 2. Nonfilling of the left A1 segment that appears developmental. Patent anterior communicating artery and A2 and distal segments fill normally. 3. 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 Trung Martel MD on August 10, 2017 at 21:24 Board Certified Radiologist. This report was verified electronically.
--- NOTE | 2017-08-10 21:32 | RADRPT ---
EXAM DATE/TIME: 08/10/2017 20:45 [facility] COMPARISON: No previous studies available for comparison. INDICATIONS : Stroke alert, slurred speech, left side weakness. IV CONTRAST: 100 cc Omnipaque 350 (iohexol) IV ; Cumulative dose for multiple exams. RADIATION DOSE: 9.66 CTDIvol (mGy) ; Combined studies MEDICAL HISTORY : Hypertension. SURGICAL HISTORY : None. ENCOUNTER: Initial ACUITY: 1 day PAIN SCALE: Non-responsive LOCATION: neck Elevated flow velocities and ICA/CCA ratios have been found to correlate with increased degrees of vessel stenosis, calculated as percentage of diameter relative to a normal segment of distal ICA/CCA. TECHNIQUE: Volumetric scanning was performed using a multirow detector CT scanner. The data was post processed with a variety of visualization algorithms including full-volume maximum intensity projection, multip lanar sliding thin-slab reformation, curved-planar reformation, and surface-rendering techniques. Us ing automated exposure control and adjustment of the mA and/or kV according to patient size, radiatio n dose was kept as low as reasonably achievable to obtain optimal diagnostic quality images. DICOM f ormat image data is available electronically for review and comparison. FINDINGS: AORTIC ARCH: There is a three-vessel origin of the great vessels from the aorta. No evidence of ostial narrowing. RIGHT CAROTID: Diffuse tortuosity. The common carotid artery is intact. The carotid bulb has a normal configuration without ulceration or narrowing. The internal carotid artery lumen is smooth without stenosis. The e xternal carotid artery is intact. LEFT CAROTID: Diffuse tortuosity. The common carotid artery is intact. The carotid bulb has a normal configuration without ulceration or narrowing. The internal carotid artery lumen is smooth without stenosis. The external carotid artery is intact. VERTEBRALS: Mildly dominant left. No stenotic lesions are seen. CONCLUSION: Tortuous but nonstenotic carotid arteries. Trung Martel MD on August 10, 2017 at 21:28 Board Certified Radiologist. This report was verified electronically.
--- NOTE | 2017-08-10 21:34 | RADRPT ---
EXAM DATE/TIME: 08/10/2017 21:01 [facility] COMPARISON: No previous studies available for comparison. INDICATIONS : MRI clearance. MEDICAL HISTORY : None. SURGICAL HISTORY : None. ENCOUNTER: Initial ACUITY: 1 day PAIN SCORE: Non-responsive. LOCATION: Bilateral abdomen. FINDINGS: Nasogastric tube tip is in the stomach. Cardiac monitoring leads are present. No other radiopaque str uctures are demonstrated. Bowel gas pattern is nonobstructive. No evidence of free air. CONCLUSION: No contraindication to MRI in the abdomen. Nonobstructive bowel gas pattern. Nasogastric tube is in t he mid stomach. Trung Martel MD on August 10, 2017 at 21:31 Board Certified Radiologist. This report was verified electronically.
[2017-08-10 21:35] LABS: BILIRUBIN, URINE NEG (NEG); BLOOD, URINE SMALL (NEG); GLUCOSE,URINE NEG (NEG); HYALINE CAST, URINE 75 /lpf (RARE); KETONE, URINE NEG (NEG); MUCUS URINE FEW /lpf (OCC); NITRITE,URINE NEG (NEG); PH, URINE 6.5 (5.0-8.5); SQUAMOUS EPITHELIAL CELL URINE 6 /hpf (0-5); TRANSITIONAL EPI CELLS, URINE <1 /hpf; URINE COLOR YELLOW (YELLW/STRAW); URINE LEUKOCYTE ESTERASE NEG (NEG)
--- NOTE | 2017-08-10 21:57 | PD.VS.CON ---
History of Present Illness Chief Complaint: aortic dissection Consult Requested by: ED History of Present Illness 66 yo lady came to ED as stroke alert but became profoundly hypertensive and a CTA chest showed a type B dissection. Pt is sedated, intubated at present so history obtained from family. Head CT negative. According to family, she was nauseated earlier tonight and vomiting, then had trouble walking which prompted her visit to the ED. They report that she had no back or abdominal pain or chest pain. Past/Family/Social History Past Medical History HTN CHF no DM Past Surgical History unknown Social History lives at home with Family History son had aortic dissection repaired with 2 surgical stages; he is 6'2" Home Medications Active Scripts Ferrous Sulfate (Ferrous Sulfate) 325 Mg (65 Mg Iron) Tablet, 325 MG PO BIDPC for Nutritional Supplement, #60 TAB 0 Refills Prov:Melissa Monreal MD R2 07/13/17 Potassium Chloride ER (Klor-Con 10) 10 Meq Tab, 20 MEQ PO DAILY, #30 TAB Prov:Cristian Landa MD R3 07/08/17 Spironolactone (Aldactone) 25 Mg Tab, 25 MG PO DAILY, #30 TAB Prov:Cristian Landa MD R3 07/08/17 Albuterol 8.5 GM Inh (Proair Hfa 8.5 GM Inh) 90 Mcg/Act Aer, 2 PUFF INH Q4-6H Y for SHORTNESS OF BREATH, #1 INHALER 0 Refills 108 mcg/actuation Prov:Melissa Monreal MD R2 07/06/17 Carvedilol (Carvedilol) 25 Mg Tab, 25 MG PO BID, #60 TAB 11 Refills Prov:Melissa Monreal MD R2 06/29/17 Furosemide (Furosemide) 40 Mg Tab, 40 MG PO DAILY Y for Edema, #90 TAB 3 Refills Prov:Melissa Monreal MD R2 04/25/17 Enalapril (Enalapril) 20 Mg Tab, 20 MG PO BID, #30 TAB 0 Refills Prov:Melissa Monreal MD R2 01/20/17 Multiple Vitamins W/ Minerals (One Daily For Women 50+A) 1 Tab Tab, 1 TAB PO DAILY, #30 TAB Prov:Melissa Monreal MD R2 01/20/17 Amlodipine (Amlodipine) 10 Mg Tab, 10 MG PO DAILY for Blood Pressure Management , #30 TAB 0 Refills Prov:Eko,Melissa Espinal MD R2 01/20/17 Reported Medications Hydrochlorothiazide (Hydrochlorothiazide) 25 Mg Tab, 25 MG PO DAILY, #30 TAB 0 Refills 08/10/17 Coded Allergies: iodine (Unverified Allergy, Severe, sneezing, chest tightness, 08/10/17) potassium iodide (Unverified Allergy, Severe, sneezing, chest tightness, ) povidone-iodine (Unverified Allergy, Severe, sneezing, chest tightness, ) sodium iodide (Unverified Allergy, Severe, sneezing, chest tightness, 08/10) sodium iodide (Unverified Allergy, Severe, sneezing, chest tightness, 08/10) sulfamethoxazole (Unverified Allergy, Intermediate, abdominal pain, ) trimethoprim (Unverified Allergy, Intermediate, abdominal pain, 08/10/17) Review of Systems ROS Limitations: Intubated Physical Exam Vitals/I&O Date Time Temp Pulse Resp B/P (MAP) Pulse Ox O2 Delivery O2 Flow Rate FiO2 08/10/17 21:48 62 14 110/71 (84) 100 Ventilator 08/10/17 21:43 62 16 100 Ventilator 08/10/17 21:34 65 16 120/82 (95) 100 Ventilator 08/10/17 21:20 69 16 123/93 (103) 100 08/10/17 21:15 93 18 143/109 (120) 100 BiPAP 08/10/17 21:09 74 18 144/105 (118) 100 Room Air 08/10/17 20:54 77 16 144/111 (122) 100 08/10/17 20:45 78 16 151/91 (111) 100 08/10/17 20:28 100 Ventilator 08/10/17 20:25 80 18 118/97 (104) 100 Room Air 08/10/17 20:23 82 16 113/87 (96) 100 08/10/17 20:13 174 25 156/119 (131) 94 BiPAP 08/10/17 20:10 192 08/10/17 19:59 156 18 195/141 (159) 93 Nasal Cannula 2.00 08/10/17 19:49 35 97 Nasal Cannula 2.00 08/10/17 19:49 98.7 118 30 195/140 (158) 97 Nasal Cannula 2.00 08/10/17 19:41 107 18 182/140 (154) 97 08/10/17 19:31 98.7 111 24 110/ 99 Room Air 08/10/17 08/10/17 08/10/17 07:00 15:00 23:00 Intake Total 250 ml Balance 250 ml Neuro: sedated but reportedly HE HEENT: anicteric sclera Neck: trachea midline Heart: reg rate Lungs: bilat BS Abdomen: no masses appreciated; unable to assess tenderness Vascular: palpable femoral pulses Laboratory Tests Test 08/10/17 19:45 08/10/17 21:05 White Blood Count 7.3 Red Blood Count 4.85 Hemoglobin 13.2 Bedside Hemoglobin 13.9 Hematocrit 39.7 Bedside Hematocrit 41.0 Mean Corpuscular Volume 81.8 Mean Corpuscular Hemoglobin 27.2 Mean Corpuscular Hemoglobin Concent 33.2 Red Cell Distribution Width 16.9 Platelet Count 252 Mean Platelet Volume 11.1 Neutrophils (%) (Auto) 62.2 Lymphocytes (%) (Auto) 26.4 Monocytes (%) (Auto) 8.6 Eosinophils (%) (Auto) 1.8 Basophils (%) (Auto) 1.0 Neutrophils # (Auto) 4.5 Lymphocytes # (Auto) 1.9 Monocytes # (Auto) 0.6 Eosinophils # (Auto) 0.1 Basophils # (Auto) 0.1 CBC Comment AUTO DIFF Differential Comment AUTO DIFF CONFIRMED Platelet Estimate NORMAL Platelet Morphology Comment ENLARGED Prothrombin Time 12.3 Prothromb Time International Ratio 1.2 Activated Partial Thromboplast Time 22.7 Bedside Sodium 139 Blood Urea Nitrogen 26 Creatinine 1.78 Random Glucose 205 Total Protein 6.1 Albumin 3.0 Calcium Level 8.3 Alkaline Phosphatase 50 Aspartate Amino Transf (AST/SGOT) 27 Alanine Aminotransferase (ALT/SGPT) 32 Total Bilirubin 1.2 Sodium Level 138 Potassium Level 3.4 Chloride Level 103 Carbon Dioxide Level 24.3 Bedside Potassium 3.2 Bedside Chloride 102 Anion Gap 11 Bedside Blood Urea Nitrogen 26 Bedside Creatinine 1.7 Estimat Glomerular Filtration Rate 35 Bedside Glucose 207 Total Creatine Kinase 76 Troponin I 0.14 Urine Color YELLOW Urine Turbidity HAZY Urine pH 6.5 Urine Specific [place] 1.028 Urine Protein 100 Urine Glucose (UA) NEG Urine Ketones NEG Urine Occult Blood SMALL Urine Nitrite NEG Urine Bilirubin NEG Urine Urobilinogen 2.0 Urine Leukocyte Esterase NEG Urine RBC 5 Urine WBC 7 Urine Squamous Epithelial Cells 6 Urine Transitional Epithelial Cells <1 Urine Hyaline Casts 75 Urine Mucus FEW Microscopic Urinalysis Comment CATH-CULTURE IND Urine Opiates Screen NEG Urine Barbiturates Screen NEG Urine Amphetamines Screen NEG Urine Benzodiazepines Screen NEG Urine Cocaine Screen NEG Urine Cannabinoids Screen NEG Date/Time Source Procedure Growth Status 08/10/17 21:05 Urine Clean Catch Urine Culture Pending Received Last [address] 08/10/171937 Signed Impressions: Service Date/Time: July 19:50 - CONCLUSION: Negative noncontrast head CT. Trung Martel MD Chest X-Ray 08/10/171937 Signed Impressions: Service Date/Time: July 19:44 - CONCLUSION: Suspected early/mild failure. Focal atelectasis or scarring left midlung as well. Trung Martel MD Neck CTA 08/10/17 0000 Signed Impressions: Service Date/Time: July 20:45 - CONCLUSION: Tortuous but nonstenotic carotid arteries. Trung Martel MD Head CTA 08/10/17 0000 Signed Impressions: Service Date/Time: July 20:45 - CONCLUSION: 1. No acute vessel thrombosis. 2. Nonfilling of the left A1 segment that appears developmental. Patent anterior communicating artery and A2 and distal segments fill normally. 3. 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 Trung Martel MD Chest X-Ray 08/10/17 0000 Signed Impressions: Service Date/Time: July 20:24 - CONCLUSION: Appropriate position of the endotracheal tube and nasogastric tube. Mild edema and left midlung atelectasis unchanged. Trung Martel MD Aorta CTA 08/10/17 0000 Signed Impressions: Service Date/Time: July 20:51 - CONCLUSION: Type B aortic dissection. Unusual dissection flap with a prominent wind sock component of the thoracic aorta beginning at the level of the mid arch and extending distal almost to the level of the diaphragmatic hiatus. No leak or rupture demonstrated. Arch vessels and the ascending aorta and root are not involved. Trung Martel MD Abdomen X-Ray 08/10/17 0000 Signed Impressions: Service Date/Time: July 21:01 - CONCLUSION: No contraindication to MRI in the abdomen. Nonobstructive bowel gas pattern. Nasogastric tube is in the mid stomach. Trung Martel MD Assessment and Plan Plan I reviewed the CTA. She has what appears to be an uncomplicated acute TBAD with no malperfusion and no rupture. She already has received the best medical therapy in the ED and should continue on labetolol for goal SBP <110. Ok to wean vent per ICU team. If stable Hct, no other changes to suggest malperfusion nor other complicating features, will plan on repeat CTA in 48 hours. Needs TTE as well. Will follow closely. Discussed plan with pt's family at bedside. Aayush Duran MD FACS [employer] horticultural services supervisor Formerly [facility] - Heart and Vascular Surgery at [facility] [phone] Aayush Duran MD Aug 10, 2017 21:57
[2017-08-10] MEDS ORDERED: CHLORHEXIDINE GLUCONATE 2 % 1 PACK (2 CLOTHS) TOP PRN (22:00)
[2017-08-10] MEDS ORDERED: MISCELLANEOUS NURSING INFORMATION XX SCH (22:00)
[2017-08-10] MEDS ORDERED: SODIUM CHLORIDE 0.9% FLUSH 10 ML FLUSH IV FLUSH PRN (22:00)
[2017-08-10] MEDS ORDERED: PROPOFOL 1000 MG/100 ML INJ 100 ML IV PRN (22:00)
[2017-08-10] MEDS ORDERED: ACETAMINOPHEN 325 MG TAB PO PRN (22:00)
[2017-08-10] MEDS ORDERED: RESP: ALBUTEROL 2.5 MG/IPRATROPIUM 0.5 MG NEB (PRN) INH (22:00)
--- NOTE | 2017-08-10 22:36 | HHI.HP ---
[facility] Service Critical Care Medicine Primary Care Physician Melissa Monreal MD Admission Diagnosis Acute Aortic Dissection, Acute CVA Diagnosis: Travel History International Travel<30 Days: No Contact w/Intl Traveler <30 Da: No Traveled to Known Affected Are: No History of Present Illness History of Present Illness HPI 66-year-old female presented with sudden onset left facial droop and dysarthria that began at 645 this evening 1 hour prior to presentation. Patient brought in by by her family. Patient had no complaints of headache, extremity weakness , chest pain, shortness of breath. Stroke alert was called. Patient underwent head CT which was negative for bleed. Subsequently on returning from CAT scan patient developed shortness of breath with her blood pressure going up to 240s systolic. She was emergently intubated and placed on mechanical ventilation and sedated with propofol. She was also started on labetalol drip to control her blood pressure. CTA chest revealed type B aortic dissection involving thoracic aorta up to the diaphragm. Vascular surgery was consulted and patient was evaluated by Dr. Duran in the ER. Patient was accepted for admission by critical care medicine service. When I evaluated the patient she was sedated with propofol, orally intubated on mechanical ventilation. History was obtained by reviewing records and discussion with family members as well as ER physician. Per family patient was admitted in June 2017 at [place] for congestive heart failure. [facility] Past Medical History Narrative Medical Past medical history reviewed Arthritis: Yes (minor) Heart Rhythm Problems: Yes (arrhythmia) Cardiovascular Problems: Yes Congestive Heart Failure: Yes Endocrine: Yes Genitourinary: No Hypertension: Yes Immune Disorder: No Musculoskeletal: Yes Neurologic: No Psychiatric: No Reproductive: No Respiratory: Yes (bronchitis, sinusitis) Thyroid Disease: Yes (watching) Ulcer: Yes Menopausal: Yes Social History Alcohol Use: No Tobacco Use: No Substance Use: No Allergies-Medications (Allergen,Severity, Reaction): Coded Allergies: iodine (Unverified Allergy, Severe, sneezing, chest tightness, 08/10/17) potassium iodide (Unverified Allergy, Severe, sneezing, chest tightness, ) povidone-iodine (Unverified Allergy, Severe, sneezing, chest tightness, ) sodium iodide (Unverified Allergy, Severe, sneezing, chest tightness, 08/10) sodium iodide (Unverified Allergy, Severe, sneezing, chest tightness, 08/10) sulfamethoxazole (Unverified Allergy, Intermediate, abdominal pain, ) trimethoprim (Unverified Allergy, Intermediate, abdominal pain, 08/10/17) Reported Meds & Prescriptions Reported Meds & Active Scripts Active Ferrous Sulfate 325 Mg (65 Mg Iron) Tablet 325 Mg PO BIDPC Klor-Con 10 (Potassium Chloride) 10 Meq Tab 20 Meq PO DAILY Aldactone (Spironolactone) 25 Mg Tab 25 Mg PO DAILY Proair Hfa 8.5 GM Inh (Albuterol Sulfate) 90 Mcg/Act Aer 2 Puff INH Q4-6H PRN 108 mcg/actuation Carvedilol 25 Mg Tab 25 Mg PO BID Furosemide 40 Mg Tab 40 Mg PO DAILY PRN Enalapril (Enalapril Maleate) 20 Mg Tab 20 Mg PO BID One Daily For Women 50+A (Multiple Vitamins W/ Minerals) 1 Tab Tab 1 Tab PO DAILY Amlodipine (Amlodipine Besylate) 10 Mg Tab 10 Mg PO DAILY Reported Hydrochlorothiazide 25 Mg Tab 25 Mg PO DAILY Review of Systems ROS Limitations: Intubated Physical Exam Vital Signs Vital Signs Date Time Temp Pulse Resp B/P (MAP) Pulse Ox O2 Delivery O2 Flow Rate FiO2 08/10/17 21:48 62 14 110/71 (84) 100 Ventilator 08/10/17 21:43 62 16 100 Ventilator 08/10/17 21:34 65 16 120/82 (95) 100 Ventilator 08/10/17 21:20 69 16 123/93 (103) 100 08/10/17 21:15 93 18 143/109 (120) 100 BiPAP 08/10/17 21:09 74 18 144/105 (118) 100 Room Air 08/10/17 20:54 77 16 144/111 (122) 100 08/10/17 20:45 78 16 151/91 (111) 100 08/10/17 20:28 100 Ventilator 08/10/17 20:25 80 18 118/97 (104) 100 Room Air 08/10/17 20:23 82 16 113/87 (96) 100 08/10/17 20:13 174 25 156/119 (131) 94 BiPAP 08/10/17 20:10 192 1/25/18 19:59 156 18 195/141 (159) 93 Nasal Cannula 2.00 08/10/17 19:49 35 97 Nasal Cannula 2.00 08/10/17 19:49 98.7 118 30 195/140 (158) 97 Nasal Cannula 2.00 08/10/17 19:41 107 18 182/140 (154) 97 08/10/17 19:31 98.7 111 24 110/ 99 Room Air Physical Exam HEENT/ Neuro: Sedated, orally intubated, no pallor, no icterus, tongue/ mucosa moist. Pupils 3 mm bilaterally equal reacting to light. Withdraws both upper and lower extremities. Plantars equivocal. Neck: No JVD Chest/Pulm: on mech vent, good air entry bilaterally, no wheezing or crackles CVS: S1-S2 regular, no murmur GI/abdomen: soft, nontender, bowel sounds sluggish Extremities: warm bilaterally, no edema Laboratory Laboratory Tests Test 08/10/17 19:45 08/10/17 21:05 White Blood Count 7.3 Red Blood Count 4.85 Hemoglobin 13.2 Bedside Hemoglobin 13.9 Hematocrit 39.7 Bedside Hematocrit 41.0 Mean Corpuscular Volume 81.8 Mean Corpuscular Hemoglobin 27.2 Mean Corpuscular Hemoglobin Concent 33.2 Red Cell Distribution Width 16.9 Platelet Count 252 Mean Platelet Volume 11.1 Neutrophils (%) (Auto) 62.2 Lymphocytes (%) (Auto) 26.4 Monocytes (%) (Auto) 8.6 Eosinophils (%) (Auto) 1.8 Basophils (%) (Auto) 1.0 Neutrophils # (Auto) 4.5 Lymphocytes # (Auto) 1.9 Monocytes # (Auto) 0.6 Eosinophils # (Auto) 0.1 Basophils # (Auto) 0.1 CBC Comment AUTO DIFF Differential Comment AUTO DIFF CONFIRMED Platelet Estimate NORMAL Platelet Morphology Comment ENLARGED Prothrombin Time 12.3 Prothromb Time International Ratio 1.2 Activated Partial Thromboplast Time 22.7 Bedside Sodium 139 Blood Urea Nitrogen 26 Creatinine 1.78 Random Glucose 205 Total Protein 6.1 Albumin 3.0 Calcium Level 8.3 Alkaline Phosphatase 50 Aspartate Amino Transf (AST/SGOT) 27 Alanine Aminotransferase (ALT/SGPT) 32 Total Bilirubin 1.2 Sodium Level 138 Potassium Level 3.4 Chloride Level 103 Carbon Dioxide Level 24.3 Bedside Potassium 3.2 Bedside Chloride 102 Anion Gap 11 Bedside Blood Urea Nitrogen 26 Bedside Creatinine 1.7 Estimat Glomerular Filtration Rate 35 Bedside Glucose 207 Total Creatine Kinase 76 Troponin I 0.14 Urine Color YELLOW Urine Turbidity HAZY Urine pH 6.5 Urine Specific [place] 1.028 Urine Protein 100 Urine Glucose (UA) NEG Urine Ketones NEG Urine Occult Blood SMALL Urine Nitrite NEG Urine Bilirubin NEG Urine Urobilinogen 2.0 Urine Leukocyte Esterase NEG Urine RBC 5 Urine WBC 7 Urine Squamous Epithelial Cells 6 Urine Transitional Epithelial Cells <1 Urine Hyaline Casts 75 Urine Mucus FEW Microscopic Urinalysis Comment CATH-CULTURE IND Urine Opiates Screen NEG Urine Barbiturates Screen NEG Urine Amphetamines Screen NEG Urine Benzodiazepines Screen NEG Urine Cocaine Screen NEG Urine Cannabinoids Screen NEG Date/Time Source Procedure Growth Status 08/10/17 21:05 Urine Clean Catch Urine Culture Pending Received Result Diagram: 08/10/[id number]/10/[id number] Imaging Last Impressions Head CT 08/10/171937 Signed Impressions: Service Date/Time: July 19:50 - CONCLUSION: Negative noncontrast head CT. Trung Martel MD Chest X-Ray 08/10/171937 Signed Impressions: Service Date/Time: July 19:44 - CONCLUSION: Suspected early/mild failure. Focal atelectasis or scarring left midlung as well. Trung Martel MD Neck CTA 08/10/17 0000 Signed Impressions: Service Date/Time: July 20:45 - CONCLUSION: Tortuous but nonstenotic carotid arteries. Trung Martel MD Head CTA 08/10/17 0000 Signed Impressions: Service Date/Time: July 20:45 - CONCLUSION: 1. No acute vessel thrombosis. 2. Nonfilling of the left A1 segment that appears developmental. Patent anterior communicating artery and A2 and distal segments fill normally. 3. 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 Trung Martel MD Aorta CTA 08/10/17 0000 Signed Impressions: Service Date/Time: July 20:51 - CONCLUSION: Type B aortic dissection. Unusual dissection flap with a prominent wind sock component of the thoracic aorta beginning at the level of the mid arch and extending distal almost to the level of the diaphragmatic hiatus. No leak or rupture demonstrated. Arch vessels and the ascending aorta and root are not involved. Trung Martel MD Abdomen X-Ray 08/10/17 0000 Signed Impressions: Service Date/Time: July 21:01 - CONCLUSION: No contraindication to MRI in the abdomen. Nonobstructive bowel gas pattern. Nasogastric tube is in the mid stomach. Trung Martel MD [place] VTE Risk Assessment Caprini VTE Risk Assessment: Mod/High Risk (score >= 2) Caprini Risk Assessment Model Point Value = 1 Point Value = 2 Point Value = 3 Point Value = 5 Age 41-60 Minor surgery BMI > 25 kg/m2 Swollen legs Varicose veins or History of unexplained or recurrent spontaneous Oral contraceptives or hormone replacement Sepsis (< 1 month) Serious lung disease, including pneumonia (< 1 month) Abnormal pulmonary function Acute myocardial infarction Congestive heart failure (< 1 month) History of inflammatory bowel disease Medical patient at bed rest Age 61-74 Arthroscopic surgery Major open surgery (> 45 min) Laparoscopic surgery (> 45 min) Malignancy Confined to bed (> 72 hours) Immobilizing plaster cast Central venous access Age >= 75 History of VTE Family history of VTE Factor V Leiden Prothrombin [id number] Lupus anticoagulant Anticardiolipin antibodies Elevated serum homocysteine Heparin-induced thrombocytopenia Other congenital or acquired thrombophilia Stroke (< 1 month) Elective arthroplasty Hip, pelvis, or leg fracture Acute spinal cord injury (< 1 month) Prophylaxis Regimen Total Risk Factor Score Risk Level Prophylaxis Regimen 0-1 Low Early ambulation 2 Moderate Order ONE of the following: *Sequential Compression Device (SCD) *Heparin 5000 units SQ BID 3-4 Higher Order ONE of the following medications: *Heparin 5000 units SQ TID *Enoxaparin/Lovenox 40 mg SQ daily (WT < 150 kg, CrCl > 30 mL/min) *Enoxaparin/Lovenox 30 mg SQ daily (WT < 150 kg, CrCl > 10-29 mL/min) *Enoxaparin/Lovenox 30 mg SQ BID (WT < 150 kg, CrCl > 30 mL/min) AND/OR *Sequential Compression Device (SCD) 5 or more Highest Order ONE of the following medications: *Heparin 5000 units SQ TID (Preferred with Epidurals) *Enoxaparin/Lovenox 40 mg SQ daily (WT < 150 kg, CrCl > 30 mL/min) *Enoxaparin/Lovenox 30 mg SQ daily (WT < 150 kg, CrCl > 10-29 mL/min) *Enoxaparin/Lovenox 30 mg SQ BID (WT < 150 kg, CrCl > 30 mL/min) AND *Sequential Compression Device (SCD) Assessment and Plan Assessment and Plan 66-year-old female with: Suspected ischemic stroke Type B aortic dissection Hypertensive emergency Acute respiratory failure on mechanical ventilation History of CHF Plan: Neuro: Sedation with propofol, fentanyl when necessary for pain. Daily sedation vacation. Follow neuro status. Neurology consult. MRI brain in a.m. if stable. Cardiovascular: Continue labetalol drip to keep SBP less than 1 20 mmHg. Keep heart rate less than 75/min. Vascular surgery consulted and to decide definitive management for aortic dissection. Hold diuretics. Pulmonary: Continue mechanical ventilation, vent bundle, bronchodilators as needed. Start daily C Pap trials tomorrow to decide extubation GI/liver: Nothing by mouth for now. If not extubated tomorrow consider starting tube feeds Renal/: IV hydration, hold diuretics. Strict intake output, monitor and replete elect lites, follow BUN creatinine. ID: No indication for antibiotics at this time. Heme: Follow CBC Endocrine: Watch for hyperglycemia, SSI for glycemic control if needed. Prophylaxis: Pepcid/SCDs/subcutaneous heparin Discussed with family at bedside regarding plan of care and they voiced understanding and were agreeable. Condition critical Time spent on critical care excluding procedures 60 minutes. Basil Diamond MD Aug 10, 2017 22:36
[2017-08-10] MEDS: SODIUM CHLOR 0.9% 1000 ML INJ 1,000 ML IV SCH (22:56)
[2017-08-10 23:58] LABS: TROPONIN I 0.15 NG/ML (0.02-0.05)
[2017-08-11] VITALS (22 sets, daily range): BP systolic 98–137; BP diastolic 60–101; PULSE 54–68; RESP 12–13; TEMP 97–98.6; O2SAT 96–100
[2017-08-11] MEDS: LABETALOL INJ 500 MG in SODIUM CHLORIDE 0.9% INJ 150 ML IV PRN ×4 (00:14→20:45)
[2017-08-11] MEDS ORDERED: PROPOFOL 1000 MG/100 ML INJ 100 ML ONE (00:26)
[2017-08-11] MEDS: PROPOFOL 1000 MG/100 ML INJ 100 ML IV PRN ×5 (00:48→17:28)
[2017-08-11] MEDS ORDERED: FUROSEMIDE 40 MG TAB PO PRN (01:15)
[2017-08-11] MEDS: CHLORHEXIDINE GLUCONATE 2 % 1 PACK (2 CLOTHS) TOP SCH (04:00)
[2017-08-11 04:12] LABS: AUTOMATED NEUTROPHIL # 12.1 TH/MM3 (1.8-7.7); BASOPHIL % 0.2 % (0.0-2.0); HEMATOCRIT 35.5 % (35.0-46.0); LYMPH % 3.4 % (9.0-44.0); LYMPHOCYTE # 0.4 TH/MM3 (1.0-4.8); MEAN CELL VOLUME 81.6 FL (80.0-100.0); MEAN CORPUSCULAR HEMOGLOBIN 27.5 PG (27.0-34.0); MEAN CORPUSCULAR HGB CONC 33.7 % (32.0-36.0); MEAN PLATELET VOLUME 10.3 FL (7.0-11.0); MONO % 2.9 % (0.0-8.0); MONOCYTE # 0.4 TH/MM3 (0-0.9); NEUT % 93.5 % (16.0-70.0); PLATELET COUNT 170 TH/MM3 (150-450); RED BLOOD COUNT 4.35 MIL/MM3 (4.00-5.30); RED CELL DISTRIBUTION WIDTH 16.7 % (11.6-17.2); WHITE BLOOD COUNT 12.9 TH/MM3 (4.0-11.0)
[2017-08-11 04:38] LABS: ALBUMIN 2.6 GM/DL (3.4-5.0); AST (GOT) 28 U/L (15-37); BICARBONATE 27.9 MEQ/L (21.0-32.0); BLOOD UREA NITROGEN 23 MG/DL (7-18); CALCIUM 7.8 MG/DL (8.5-10.1); CHLORIDE 105 MEQ/L (98-107); CREATININE 1.27 MG/DL (0.50-1.00); GLOMERULAR FILTRATION RATE 51 ML/MIN (>89); GLUCOSE,RANDOM 108 MG/DL (74-106); SODIUM (NA) 143 MEQ/L (136-145)
[2017-08-11 04:41] LABS: ALKALINE PHOSPHATASE 41 U/L (45-117); ALT (GPT) 31 U/L (10-53); TOTAL BILIRUBIN ADULT 1.2 MG/DL (0.2-1.0); TOTAL PROTEIN 5.4 GM/DL (6.4-8.2)
[2017-08-11] MEDS ORDERED: POTASSIUM CHLOR 20 MEQ PREMIX 100 ML ONE (05:41)
[2017-08-11] MEDS ORDERED: POTASSIUM CHLOR 40 MEQ PREMIX 100 ML IV SCH (06:00)
[2017-08-11] MEDS: HEPARIN SODIUM - SQ 10,000 UNITS/ML VIAL SQ SCH ×2 (06:00→13:21)
[2017-08-11] MEDS: POTASSIUM CHLOR 20 MEQ PREMIX 100 ML IV SCH ×4 (06:00→12:28)
--- NOTE | 2017-08-11 07:59 | PD.VS.PN ---
Subjective Subjective/Hospital Course Pt adm with acute TBAD and intubated in ED last night. HD stable overnight, sedated BP well controlled Objective Vitals/I&O Date Time Temp Pulse Resp B/P (MAP) Pulse Ox O2 Delivery O2 Flow Rate FiO2 08/11/17 07:46 98 40 08/11/17 04:00 99 50 08/11/17 03:00 97.8 54 12 101/65 (77) 96 105/74 (84) 08/11/17 02:00 54 12 () 96 101/68 (79) 08/11/17 02:00 54 08/11/17 01:30 55 98/60 (73) 102/64 (77) 08/11/17 01:00 98.6 54 12 104/62 (76) 96 08/11/17 00:40 100 50 08/11/17 00:30 97 50 08/11/17 00:30 100 100 08/11/17 00:30 100 100 08/11/17 00:16 65 137/101 (113) 08/11/17 00:11 68 12 137/93 (108) 100 Ventilator 08/10/17 22:59 61 18 100/63 (75) 100 Room Air 08/10/17 22:00 100 50 08/10/17 21:48 62 14 110/71 (84) 100 Ventilator 08/10/17 21:43 62 16 100 Ventilator 08/10/17 21:34 65 16 120/82 (95) 100 Ventilator 08/10/17 21:20 69 16 123/93 (103) 100 08/10/17 21:15 93 18 143/109 (120) 100 BiPAP 08/10/17 21:09 74 18 144/105 (118) 100 Room Air 08/10/17 20:54 77 16 144/111 (122) 100 08/10/17 20:45 78 16 151/91 (111) 100 08/10/17 20:40 100 100 08/10/17 20:28 100 Ventilator 08/10/17 20:25 80 18 118/97 (104) 100 Room Air 08/10/17 20:23 82 16 113/87 (96) 100 08/10/17 20:20 99 80 08/10/17 20:13 174 25 156/119 (131) 94 BiPAP 08/10/17 20:10 192 08/10/17 20:08 97 60 08/10/17 19:59 156 18 195/141 (159) 93 Nasal Cannula 2.00 08/10/17 19:49 35 97 Nasal Cannula 2.00 08/10/17 19:49 98.7 118 30 195/140 (158) 97 Nasal Cannula 2.00 08/10/17 19:46 98 Nasal Cannula 2.00 08/10/17 19:46 97 2.00 08/10/17 19:41 107 18 182/140 (154) 97 08/10/17 19:31 98.7 111 24 110/ 99 Room Air 08/11/17 08/11/17 08/11/17 07:00 15:00 23:00 Intake Total 862 ml Output Total 2250 ml Balance -1388 ml Physical Exam sedated, intubated palpable femoral pulses Laboratory Laboratory Tests Test 08/10/17 19:45 08/10/17 21:05 08/10/17 23:16 08/11/17 00:05 White Blood Count 7.3 Red Blood Count 4.85 Hemoglobin 13.2 Bedside Hemoglobin 13.9 Hematocrit 39.7 Bedside Hematocrit 41.0 Mean Corpuscular Volume 81.8 Mean Corpuscular Hemoglobin 27.2 Mean Corpuscular Hemoglobin Concent 33.2 Red Cell Distribution Width 16.9 Platelet Count 252 Mean Platelet Volume 11.1 Neutrophils (%) (Auto) 62.2 Lymphocytes (%) (Auto) 26.4 Monocytes (%) (Auto) 8.6 Eosinophils (%) (Auto) 1.8 Basophils (%) (Auto) 1.0 Neutrophils # (Auto) 4.5 Lymphocytes # (Auto) 1.9 Monocytes # (Auto) 0.6 Eosinophils # (Auto) 0.1 Basophils # (Auto) 0.1 CBC Comment AUTO DIFF Differential Comment AUTO DIFF CONFIRMED Platelet Estimate NORMAL Platelet Morphology Comment ENLARGED Prothrombin Time 12.3 Prothromb Time International Ratio 1.2 Activated Partial Thromboplast Time 22.7 Bedside Sodium 139 Blood Urea Nitrogen 26 Creatinine 1.78 Random Glucose 205 Total Protein 6.1 Albumin 3.0 Calcium Level 8.3 Alkaline Phosphatase 50 Aspartate Amino Transf (AST/SGOT) 27 Alanine Aminotransferase (ALT/SGPT) 32 Total Bilirubin 1.2 Sodium Level 138 Potassium Level 3.4 Chloride Level 103 Carbon Dioxide Level 24.3 Bedside Potassium 3.2 Bedside Chloride 102 Anion Gap 11 Bedside Blood Urea Nitrogen 26 Bedside Creatinine 1.7 Estimat Glomerular Filtration Rate 35 Bedside Glucose 207 Total Creatine Kinase 76 89 Troponin I 0.14 0.15 Urine Color YELLOW Urine Turbidity HAZY Urine pH 6.5 Urine Specific Reagan 1.028 Urine Protein 100 Urine Glucose (UA) NEG Urine Ketones NEG Urine Occult Blood SMALL Urine Nitrite NEG Urine Bilirubin NEG Urine Urobilinogen 2.0 Urine Leukocyte Esterase NEG Urine RBC 5 Urine WBC 7 Urine Squamous Epithelial Cells 6 Urine Transitional Epithelial Cells <1 Urine Hyaline Casts 75 Urine Mucus FEW Microscopic Urinalysis Comment CATH-CULTURE IND Urine Opiates Screen NEG Urine Barbiturates Screen NEG Urine Amphetamines Screen NEG Urine Benzodiazepines Screen NEG Urine Cocaine Screen NEG Urine Cannabinoids Screen NEG Blood Gas Puncture Site ART LINE Blood Gas Patient Temperature 98.6 Blood Gas HCO3 27 Blood Gas Base Excess 3.3 Blood Gas Oxygen Saturation 98 Arterial Blood pH 7.43 Arterial Blood Partial Pressure CO2 43 Arterial Blood Partial Pressure O2 168 Arterial Blood Oxygen Content 17.0 Arterial Blood Carboxyhemoglobin 1.0 Arterial Blood Methemoglobin 0.6 Blood Gas Hemoglobin 12.1 Oxygen Delivery Device VENTILATOR Blood Gas Ventilator Setting Blood Gas Inspired Oxygen 50 Test 08/11/17 03:48 White Blood Count 12.9 Red Blood Count 4.35 Hemoglobin 12.0 Hematocrit 35.5 Mean Corpuscular Volume 81.6 Mean Corpuscular Hemoglobin 27.5 Mean Corpuscular Hemoglobin Concent 33.7 Red Cell Distribution Width 16.7 Platelet Count 170 Mean Platelet Volume 10.3 Neutrophils (%) (Auto) 93.5 Lymphocytes (%) (Auto) 3.4 Monocytes (%) (Auto) 2.9 Eosinophils (%) (Auto) 0.0 Basophils (%) (Auto) 0.2 Neutrophils # (Auto) 12.1 Lymphocytes # (Auto) 0.4 Monocytes # (Auto) 0.4 Eosinophils # (Auto) 0.0 Basophils # (Auto) 0.0 CBC Comment DIFF FINAL Differential Comment Blood Urea Nitrogen 23 Creatinine 1.27 Random Glucose 108 Total Protein 5.4 Albumin 2.6 Calcium Level 7.8 Alkaline Phosphatase 41 Aspartate Amino Transf (AST/SGOT) 28 Alanine Aminotransferase (ALT/SGPT) 31 Total Bilirubin 1.2 Sodium Level 143 Potassium Level 2.8 Chloride Level 105 Carbon Dioxide Level 27.9 Anion Gap 10 Estimat Glomerular Filtration Rate 51 Date/Time Source Procedure Growth Status 08/10/17 21:05 Urine Clean Catch Urine Culture Pending Received Imaging Last [address] 08/10/171937 Signed Impressions: Service Date/Time: July 19:50 - CONCLUSION: Negative noncontrast head CT. Trung Martel MD Chest X-Ray 08/10/171937 Signed Impressions: Service Date/Time: July 19:44 - CONCLUSION: Suspected early/mild failure. Focal atelectasis or scarring left midlung as well. Trung Martel MD Neck CTA 08/10/17 Signed Impressions: Service Date/Time: July 20:45 - CONCLUSION: Tortuous but nonstenotic carotid arteries. Trung Martel MD Head CTA 08/10/17 Signed Impressions: Service Date/Time: July 20:45 - CONCLUSION: 1. No acute vessel thrombosis. 2. Nonfilling of the left A1 segment that appears developmental. Patent anterior communicating artery and A2 and distal segments fill normally. 3. 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 Trung Martel MD Chest X-Ray 08/10/17 Signed Impressions: Service Date/Time: July 20:24 - CONCLUSION: Appropriate position of the endotracheal tube and nasogastric tube. Mild edema and left midlung atelectasis unchanged. Trung Martel MD Aorta CTA 08/10/17 Signed Impressions: Service Date/Time: July 20:51 - CONCLUSION: Type B aortic dissection. Unusual dissection flap with a prominent wind sock component of the thoracic aorta beginning at the level of the mid arch and extending distal almost to the level of the diaphragmatic hiatus. No leak or rupture demonstrated. Arch vessels and the ascending aorta and root are not involved. Trung Martel MD Abdomen X-Ray 08/10/17 Signed Impressions: Service Date/Time: July 21:01 - CONCLUSION: No contraindication to MRI in the abdomen. Nonobstructive bowel gas pattern. Nasogastric tube is in the mid stomach. Trung Martel MD Assessment and Plan Plan Adm with aTBAD and no sequelae of malperfusion nor rupture 1. Continue SBP goals <110 2. Wean vent as tolerated - ok from my standpoint to extubate 3. Continue neurovasc checks 4. F/U TTE (prior EF 35%) 5. Repeat CTA tomorrow (08/12) if remains stable Aayush Duran MD FACS [employer] farm[employer] [facility] - Heart and Vascular Surgery at [facility] [phone] Aayush Duran MD Aug 11, 2017 07:59
[2017-08-11] MEDS: CHLORHEXIDINE 0.12% (ORAL KIT) 15 ML CUP MT SCH ×2 (08:00→20:41)
[2017-08-11] MEDS ORDERED: hydrALAZINE HCL 20 MG/ML VIAL IV PUSH PRN (08:45)
[2017-08-11] MEDS ORDERED: LABETALOL HCL 100 MG/20 ML VIAL IV PUSH PRN (08:45)
--- NOTE | 2017-08-11 08:45 | EKG ---
Date Performed: 08/10/2017 Time Performed: 23:23:32 PTAGE: 66 years EKG: Sinus rhythm WITH SINUS ARRHYTHMIA POSSIBLE LEFT ATRIAL ENLARGEMENT LEFT AXIS DEVIATION ST/T-WAVE ABNORMALITY, CO NSIDER LATERAL ISCHEMIA ABNORMAL ECG PREVIOUS TRACING : 08/10/2017 20.00 Compared to previous tracing, sinus rhythm has replaced sup raventricular tachycardia, lateral T wave inversion is now evident. DOCTOR: Nicolas George Interpretating Date/Time 08/11/2017 08:44:24
--- NOTE | 2017-08-11 08:50 | HHI.CCPN ---
Subjective Remarks/Hospital Course Hospital Course: 66-year-old female presented with sudden onset left facial droop and dysarthria that began at 645 this evening 1 hour prior to presentation. Patient brought in by by her family. Patient had no complaints of headache, extremity weakness , chest pain, shortness of breath. Stroke alert was called. Patient underwent head CT which was negative for bleed. Subsequently on returning from CAT scan patient developed shortness of breath with her blood pressure going up to 240s systolic. She was emergently intubated and placed on mechanical ventilation and sedated with propofol. She was also started on labetalol drip to control her blood pressure. CTA chest revealed type B aortic dissection involving thoracic aorta up to the diaphragm. Vascular surgery was consulted and patient was evaluated by Dr. Duran in the ER. Patient was accepted for admission by critical care medicine service. When I evaluated the patient she was sedated with propofol, orally intubated on mechanical ventilation. History was obtained by reviewing records and discussion with family members as well as ER physician. Per family patient was admitted in June 2017 at [place] for congestive heart failure. Subjective: 08/11: remains intubated. Cr trending down. BP and HR under good control. still need to obtain good neuro exam- sedated while intubated and controlling BP. distal pulses +. Objective Vital Signs Date Time Temp Pulse Resp B/P (MAP) Pulse Ox O2 Delivery O2 Flow Rate FiO2 08/11/17 07:46 98 40 08/11/17 03:00 97.8 54 12 101/65 (77) 105/74 (84) 08/11/17 00:11 Ventilator 08/10/17 19:59 2.00 Intake and Output 08/11/17 08/11/17 08/12/17 08:00 16:00 00:00 Intake Total 862 ml Output Total 1150 ml Balance -288 ml Result Diagram: 08/11/17 0348 08/11/17 0348 Other Results Laboratory Tests Test 08/11/17 00:05 Blood Gas Puncture Site ART LINE Blood Gas Patient Temperature 98.6 Blood Gas HCO3 27 mmol/L (22-26) Blood Gas Base Excess 3.3 mmol/L (-2-2) Blood Gas Oxygen Saturation 98 % (90-100) Arterial Blood pH 7.43 (7.380-7.420) Arterial Blood Partial Pressure CO2 43 mmHg (38-42) Arterial Blood Partial Pressure O2 168 mmHG (61-120) Arterial Blood Oxygen Content 17.0 Vol % (12.0-20.0) Arterial Blood Carboxyhemoglobin 1.0 % (0-4) Arterial Blood Methemoglobin 0.6 % (0-2) Blood Gas Hemoglobin 12.1 G/DL (12.0-16.0) Oxygen Delivery Device VENTILATOR Blood Gas Ventilator Setting Blood Gas Inspired Oxygen 50 % Imaging Last Impressions Head CT 08/10/171937 Signed Impressions: Service Date/Time: July 19:50 - CONCLUSION: Negative noncontrast head CT. Trung Martel MD Chest X-Ray 08/10/171937 Signed Impressions: Service Date/Time: July 19:44 - CONCLUSION: Suspected early/mild failure. Focal atelectasis or scarring left midlung as well. Trung Martel MD Neck CTA 08/10/17 Signed Impressions: Service Date/Time: July 20:45 - CONCLUSION: Tortuous but nonstenotic carotid arteries. Trung Martel MD Head CTA 08/10/17 Signed Impressions: Service Date/Time: July 20:45 - CONCLUSION: 1. No acute vessel thrombosis. 2. Nonfilling of the left A1 segment that appears developmental. Patent anterior communicating artery and A2 and distal segments fill normally. 3. 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 Trung Martel MD Aorta CTA 08/10/17 Signed Impressions: Service Date/Time: July 20:51 - CONCLUSION: Type B aortic dissection. Unusual dissection flap with a prominent wind sock component of the thoracic aorta beginning at the level of the mid arch and extending distal almost to the level of the diaphragmatic hiatus. No leak or rupture demonstrated. Arch vessels and the ascending aorta and root are not involved. Trung Martel MD Abdomen X-Ray 08/10/17 Signed Impressions: Service Date/Time: July 21:01 - CONCLUSION: No contraindication to MRI in the abdomen. Nonobstructive bowel gas pattern. Nasogastric tube is in the mid stomach. Trung Martel MD Objective Remarks HEENT/ Neuro: Sedated, orally intubated, no pallor, no icterus, tongue/ mucosa moist. Pupils 3 mm bilaterally equal reacting to light. Withdraws both upper and lower extremities. does not follow commands. Neck: No JVD Chest/Pulm: on mech vent, 40% fio2. equal chest rise. CVS: bradycardic rate, regular rhythm. HR 52, SBP 109. GI/abdomen: soft, nontender, nondistended, no guarding. Extremities: warm bilaterally, no edema, distal pulses 2+ LEs. good cap refill. A/P Assessment and Plan Assessment: 66yF with Acute type B aortic dissection, complicated by questionable neuro exam changes and acute hypoxic respiratory failure requiring mechanical ventilation. remains critically ill today. will continue tight BP and HR control. will wean sedation carefully in the setting of tight BP control and obtain neuro exam. can wean to extubate if she can tolerate it safely hemodynamically. very high risk of decompensation and from type B and still on active iv anti-hypertensives. Acute metabolic encephalopathy Type B aortic dissection Hypertensive emergency Acute hypoxic respiratory failure on mechanical ventilation History of CHF, unknown type Elevated troponins, likely type II NSTEMI secondary to Demand Ischemia Acute kidney injury Plan: Neuro: frequent neuro checks. wean sedation as tolerated. prop, fent, goal RASS -2. avoid long-acting sedating meds. attempt to get neuro exam today. f/u neuro consult. Cardiovascular: continue labetalol. goal HR < 70, SBP < 120. add back carvedilol , hctz. keep art line. close bp monitoring. f/u echo. trend trops. Pulmonary: wean mech vent as tolerated. if hemodynamically stable could consider wean to extubate today. hob elevated, nebs, vent bundle. GI/liver: continue NPO. if does not extubate, will start TF today. check lactate and trend to ensure adequate mesenteric perfusion. Renal/: decrease mivf in the setting of h/o CHF. adequate uop. Cr downtrending. restart home po lasix. ID: No indication for antibiotics at this time. Heme: Follow CBC Endocrine: Watch for hyperglycemia, SSI for glycemic control if needed. Prophylaxis: Pepcid/SCDs/subcutaneous heparin Dispo: remain in ICU. high risk for decompensation- ongoing organ failure. critically ill. Critical care time: 40 minutes, exclusive of separately billable procedures. Janes Bennett MD Aug 11, 2017 08:50
[2017-08-11 08:58] LABS: TROPONIN I 0.08 NG/ML (0.02-0.05)
--- NOTE | 2017-08-11 08:59 | EKG ---
Date Performed: 08/10/2017 Time Performed: 20:00:18 PTAGE: 66 years EKG: SUPRAVENTRICULAR TACHYCARDIA BORDERLINE LEFT AXIS DEVIATION NONSPECIFIC ST & T-WAVE ABNORMA LITY ABNORMAL ECG PREVIOUS TRACING : 08/10/2017 19.42 Compared to previous tracing, supraventricular tachycardia has replaced Sinus rhythm . DOCTOR: Nicolas George Interpretating Date/Time 08/11/2017 08:57:30
[2017-08-11] MEDS: POTASSIUM CHLORIDE 10 MEQ CONTROLLED RELEASE TAB PO SCH (09:00)
[2017-08-11] MEDS: SODIUM CHLORIDE 0.9% FLUSH 10 ML FLUSH IV FLUSH SCH ×2 (09:00→20:41)
[2017-08-11] MEDS: CARVEDILOL 12.5 MG TAB PO SCH ×3 (09:00→21:00)
--- NOTE | 2017-08-11 09:17 | EKG ---
Date Performed: 08/10/2017 Time Performed: 19:42:22 PTAGE: 66 years EKG: SINUS TACHYCARDIA WITH OCCASIONAL VENTRICULAR PREMATURE COMPLEXES POSSIBLE LEFT ATRIAL ENLA RGEMENT ST/T-WAVE ABNORMALITY, CONSIDER LATERAL ISCHEMIA ABNORMAL ECG PREVIOUS TRACING : 07/06/2017 10.49 Compared to previous tracing, heart rate has increased, lat eral T wave changes have improved. DOCTOR: Nicolas George Interpretating Date/Time 08/11/2017 09:16:05
[2017-08-11] MEDS: FAMOTIDINE 20 MG/2 ML VIAL IV PUSH SCH (09:38)
[2017-08-11] MEDS: MULTIVITAMINS/MINERALS THERAPEUTIC TAB PO SCH (09:39)
[2017-08-11] MEDS: SODIUM CHLOR 0.9% 1000 ML INJ 1,000 ML IV SCH (09:39)
[2017-08-11] MEDS: SPIRONOLACTONE 25 MG TAB PO SCH (09:39)
[2017-08-11] MEDS: FERROUS SULFATE 325 MG (65 MG ELEMENTAL IRON) TAB PO SCH ×2 (09:39→17:11)
[2017-08-11] MEDS: HYDROCHLOROTHIAZIDE 25 MG TAB PO SCH (09:40)
--- NOTE | 2017-08-11 09:56 | MB ---
cc: DARSHAN PITTS M.D. DATE OF CONSULTATION 08/10/2017 The patient was called for a Stroke Alert tonight. She had a left facial droop and some dysarthria. I talked to the ER physician. He felt that her visual lai were full and that she was not aphasic. She is moving all her extremities well. A CAT scan of the brain was negative. The ER physician felt her deficit was severe enough for TPA. As such I recommended giving her TPA when the CT came back. She evidently had a rise in her blood pressure and a spike and then her heart rate went up, I believe to 200. The ER physician felt that she was too unstable for TPA and would need to be intubated. I suggested he could give her a nicardipine drip to lower her blood pressure to the proper range in order give TPA, but he felt that she was too medically unstable for TPA and thought she would have increased risk for hemorrhage. As such he elected not to give her TPA. The family had also refused to CTA because they were worried about an iodine allergy. I did order an MRI and MRA. MD TEX Lopes/SALLIE /8:27 PM /9:40 AM
--- NOTE | 2017-08-11 13:27 | MB ---
cc: CORY AHN M.D. DATE OF CONSULTATION 08/11/2017 REASON FOR CONSULTATION This is a 66-year-old seen in neurological consultation. This case was discussed with my associate Dr. Ndiaye who had some contact with the emergency room and with family initially as per his notes. The patient developed some left facial droop and speech difficulty last evening, came to the hospital, treated as a stroke alert and CT brain was negative. CT head and neck were done and essentially unremarkable except for apparent small cerebral aneurysm. CTA chest showed aortic dissection and vascular surgery has been following this patient. At this point, as far as I could gather and clear is that she is going to be a candidate for a vascular intervention. She is intubated, sedated on propofol. The propofol was discontinued briefly at the time of my exam and the patient started showing a very slight motor functions that appeared to be spontaneous involving distal extremities without any obvious asymmetry. The pupils were small initially, but after propofol was discontinued, the pupils became symmetrically larger. She was never following commands to me, but I only saw her for a brief period of time after the propofol was discontinued. Her reflexes were present at the knees, probably present at the elbows and undetermined at the ankles. Plantar responses were none versus flexor. I should add that the chart indicates a history of congestive heart failure in June 2017. ASSESSMENT Neurological symptoms with negative neurological imaging studies, but the patient was subsequently documented to have a thoracic aortic dissection. At this point, she is sedated and awaiting on the conclusion by vascular level of care. Neurologic reynolds, eventually we will need to obtain an MRI of the brain and I will follow the care. The MRI could be obtained in the next few hours or few days and this is going to depend upon the decision by vascular team whether or not an additional MRI findings will interfere with the vascular level of care. I have discussed this with the nursing staff. Again, she has already CTA of the head and neck and the right A2 segment shows a mild aneurysmal dilatation which is incidental at this point. Thank you for asking us to assist in her care. I will follow her with you. MD HAYES Diaz/CHARO /11:06 AM /1:17 PM
--- NOTE | 2017-08-11 13:42 | ECHRPT ---
Indication: AORTIC DISSECTION CONCLUSIONS The left ventricular systolic function is severely reduced with an estimated ejection fraction in th e range of 20-25%. There is global left ventricular dysfunction. The right ventricular systoilc function is mildly decreased . Moderate mitral valve regurgitation. There is moderate tricuspid valve regurgitation. Limited views of the ascending, descending and aortic root do not show dissection. Small pericardial effusion, no hemodynamic compromise noted. BP: / HR: Rhythm: Atrial fibrillation MEASUREMENTS (Male / Female) Normal Values Technical Quality:Good 2D ECHO LV Diastolic Diameter PLAX 6.4 cm 4.2 - 5.9 / 3.9 - 5.3 cm LV Systolic Diameter PLAX 5.6 cm IVS Diastolic Thickness 1.1 cm 0.6 - 1.0 / 0.6 - 0.9 cm LVPW Diastolic Thickness 1.1 cm 0.6 - 1.0 / 0.6 - 0.9 cm LV Relative Wall Thickness 0.3 RV Internal Dim ED PLAX 3.4 cm LVOT Diameter 1.6 cm LA Systolic Diameter LX 4.0 cm 3.0 - 4.0 / 2.7 - 3.8 cm LV Ejection Fraction MOD 4C 43.7 % LV Ejection Fraction 4C AL 44.1 % M-MODE LV Diastolic Diameter MM 6.3 cm 4.2 - 5.9 / 3.9 - 5.3 cm LV Systolic Diameter MM 5.0 cm LV Ejection Fraction MM Teich 41.5 % IVS Diastolic Thickness MM 1.1 cm 0.6 - 1.0 / 0.6 - 0.9 cm LVPW Diastolic Thickness MM 1.2 cm 0.6 - 1.0 / 0.6 - 0.9 cm LV Relative Wall Thickness MM 0.4 0.24 - 0.42 / 0.22 - 0.42 LV Mass Index MM 168.2 g/m 49 - 115 / 43 - 95 g/m Aortic Root Diameter MM 3.1 cm LA Systolic Diameter MM 4.0 cm LA Ao Ratio MM 1.3 AV Cusp Separation MM 1.8 cm DOPPLER AV Peak Velocity 164.0 cm/s AV Peak Gradient 10.8 mmHg LVOT Peak Velocity 81.4 cm/s LVOT Peak Gradient 2.7 mmHg AV Area Cont Eq pk 1.0 cm MV Area PHT 3.2 cm Mitral E Point Velocity 78.5 cm/s Mitral A Point Velocity 60.2 cm/s Mitral E to A Ratio 1.3 LV E' Lateral Velocity 4.9 cm/s Mitral E to LV E' Lateral Ratio 16.1 LV E' Septal Velocity 3.9 cm/s Mitral E to LV E' Septal Ratio 20.1 TR Peak Velocity 276.0 cm/s TR Peak Gradient 30.5 mmHg Right Atrial Pressure 10.0 mmHg Pulmonary Artery Systolic Pressu 40.5 mmHg Right Ventricular Systolic Press 40.5 mmHg PV Peak Velocity 85.5 cm/s PV Peak Gradient 2.9 mmHg FINDINGS LEFT VENTRICLE The left ventricular systolic function is severely reduced with an estimated ejection fraction in th e range of 20-25% Normal left ventricular size. Wall thickness is normal. There is global left ventricular dysfunction. RIGHT VENTRICLE Normal right ventricular size The right ventricular systoilc function is mildly decreased. LEFT ATRIUM The left atrial size is normal. RIGHT ATRIUM The right atrial size is normal. ATRIAL SEPTUM Normal atrial septal thickness. AORTA The aortic root and proximal ascending aorta are normal in size on limited imaging. MITRAL VALVE Structurally normal mitral valve. Moderate mitral valve regurgitation. The mitral valve regurgitation jet is directed centrally due to poor leaflet coaptation. No mitral valve stenosis. AORTIC VALVE Trileaflet aortic valve. Trace aortic valve regurgitation. No aortic valve stenosis. TRICUSPID VALVE Structurally normal tricuspid valve. There is moderate tricuspid valve regurgitation. The estimated pulmonary arterial pressure is 40.5 mmHg. PULMONARY VALVE Trivial pulmonary valve regurgitation. VESSELS The inferior vena cava is normal in size. Limited views of the ascending, descending and aortic root do not show dissection PERICARDIUM Small pericardial effusion, no hemodynamic compromise noted. Bhaskar Koehler DO (Electronically Signed) Final Date:11 August 2017 13:41
[2017-08-12] VITALS (17 sets, daily range): BP systolic 91–116; BP diastolic 51–89; PULSE 59–64; RESP 12–16; TEMP 97–98.6; O2SAT 96–99
[2017-08-12] MEDS: HEPARIN SODIUM - SQ 10,000 UNITS/ML VIAL SQ SCH ×4 (00:07→22:24)
[2017-08-12] MEDS: PROPOFOL 1000 MG/100 ML INJ 100 ML IV PRN ×2 (01:26→07:53)
[2017-08-12] MEDS: CHLORHEXIDINE GLUCONATE 2 % 1 PACK (2 CLOTHS) TOP SCH (04:00)
[2017-08-12 04:55] LABS: HEMATOCRIT 32.9 % (35.0-46.0); MEAN CELL VOLUME 80.7 FL (80.0-100.0); MEAN CORPUSCULAR HEMOGLOBIN 27.1 PG (27.0-34.0); MEAN CORPUSCULAR HGB CONC 33.6 % (32.0-36.0); PLATELET COUNT 148 TH/MM3 (150-450); RED BLOOD COUNT 4.07 MIL/MM3 (4.00-5.30); RED CELL DISTRIBUTION WIDTH 16.9 % (11.6-17.2); WHITE BLOOD COUNT 12.8 TH/MM3 (4.0-11.0)
[2017-08-12 05:14] LABS: BICARBONATE 26.9 MEQ/L (21.0-32.0); CALCIUM 8.1 MG/DL (8.5-10.1); CREATININE 1.14 MG/DL (0.50-1.00)
--- NOTE | 2017-08-12 07:42 | PD.VS.PN ---
Subjective Subjective/Hospital Course Pt adm with acute TBAD and intubated in ED HD stable overnight, sedated BP well controlled Apparently HE with lightening of sedation Weaning vent Objective Vitals/I&O Date Time Temp Pulse Resp B/P (MAP) Pulse Ox O2 Delivery O2 Flow Rate FiO2 08/12/17 07:26 64 08/12/17 07:26 35 08/12/17 07:24 97.6 64 14 110/81 (91) 98 116/89 (98) 08/12/17 04:10 99 35 08/12/17 04:00 35 08/12/17 04:00 97.0 59 12 108/78 (88) 98 111/67 (82) 08/12/17 04:00 62 08/12/17 01:10 98 35 08/11/17 23:00 97.0 58 12 98/74 (82) 98 103/63 (76) 08/11/17 23:00 35 08/11/17 23:00 58 08/11/17 21:43 97 35 08/11/17 20:23 97 35 08/11/17 19:00 64 08/11/17 19:00 97.6 61 13 104/77 (86) 96 103/63 (76) 08/11/17 19:00 35 08/11/17 18:02 98 35 08/11/17 15:43 98.1 61 12 105/63 (77) 97 98/74 (82) 08/11/17 15:00 59 08/11/17 11:15 97.9 56 12 109/65 (80) 96 110/78 (89) 08/11/17 11:00 57 08/11/17 10:58 97 35 08/11/17 08:00 98.0 55 12 111/66 (81) 96 108/75 (86) Manual Cuff/Palpation 08/11/17 07:46 98 40 08/12/17 08/12/17 08/12/17 07:00 15:00 23:00 Intake Total 900 ml Output Total 435 ml Balance 465 ml Physical Exam sedated palpable femoral pulses Laboratory Laboratory Tests Test 08/11/17 08:02 08/11/17 09:14 08/12/17 04:30 Total Creatine Kinase 100 Troponin I 0.08 Lactic Acid Level 1.1 White Blood Count 12.8 Red Blood Count 4.07 Hemoglobin 11.0 Hematocrit 32.9 Mean Corpuscular Volume 80.7 Mean Corpuscular Hemoglobin 27.1 Mean Corpuscular Hemoglobin Concent 33.6 Red Cell Distribution Width 16.9 Platelet Count 148 Mean Platelet Volume 10.0 Blood Urea Nitrogen 22 Creatinine 1.14 Random Glucose 86 Calcium Level 8.1 Sodium Level 143 Potassium Level 3.5 Chloride Level 108 Carbon Dioxide Level 26.9 Anion Gap 8 Estimat Glomerular Filtration Rate 58 Date/Time Source Procedure Growth Status 08/10/17 21:05 Urine Clean Catch Urine Culture - Preliminary RESULTS PENDING Resulted Imaging Last [address] 08/10/171937 Signed Impressions: Service Date/Time: July 19:50 - CONCLUSION: Negative noncontrast head CT. Trung Martel MD Chest X-Ray 08/10/171937 Signed Impressions: Service Date/Time: July 19:44 - CONCLUSION: Suspected early/mild failure. Focal atelectasis or scarring left midlung as well. Trung Martel MD Assessment and Plan Plan Adm with aTBAD and no sequelae of malperfusion nor rupture 1. Continue SBP goals <110 2. Wean vent as tolerated - ok from my standpoint to extubate 3. Continue neurovasc checks 4. Repeat CTA 5. MRI per neurology Aayush Duran MD [facility] water supervisor [facility] - Heart and V[facility] Surgery at [facility] [id number] Aayush Duran MD Aug 12, 2017 07:42
[2017-08-12] MEDS: CHLORHEXIDINE 0.12% (ORAL KIT) 15 ML CUP MT SCH ×2 (08:06→22:23)
[2017-08-12] MEDS: SPIRONOLACTONE 25 MG TAB PO SCH (08:42)
[2017-08-12] MEDS: CARVEDILOL 12.5 MG TAB PO SCH ×2 (08:42→22:24)
[2017-08-12] MEDS: POTASSIUM CHLORIDE 10 MEQ CONTROLLED RELEASE TAB PO SCH (08:43)
[2017-08-12] MEDS: HYDROCHLOROTHIAZIDE 25 MG TAB PO SCH (08:43)
[2017-08-12] MEDS: FAMOTIDINE 20 MG/2 ML VIAL IV PUSH SCH (08:43)
--- NOTE | 2017-08-12 08:43 | HHI.CCPN ---
Subjective Remarks/Hospital Course Hospital Course: 66-year-old female presented with sudden onset left facial droop and dysarthria that began at 645 this evening 1 hour prior to presentation. Patient brought in by by her family. Patient had no complaints of headache, extremity weakness , chest pain, shortness of breath. Stroke alert was called. Patient underwent head CT which was negative for bleed. Subsequently on returning from CAT scan patient developed shortness of breath with her blood pressure going up to 240s systolic. She was emergently intubated and placed on mechanical ventilation and sedated with propofol. She was also started on labetalol drip to control her blood pressure. CTA chest revealed type B aortic dissection involving thoracic aorta up to the diaphragm. Vascular surgery was consulted and patient was evaluated by Dr. Duran in the ER. Patient was accepted for admission by critical care medicine service. When I evaluated the patient she was sedated with propofol, orally intubated on mechanical ventilation. History was obtained by reviewing records and discussion with family members as well as ER physician. Per family patient was admitted in June 2017 at [place] for congestive heart failure. Subjective: 08/11: remains intubated. Cr trending down. BP and HR under good control. still need to obtain good neuro exam- sedated while intubated and controlling BP. distal pulses +. 08/12: still intubated. becomes agitated on sedation vacation, but moves all extremities. MRI planned for today. distal pulses +, uop adequate. Cr improving. off labetalol drip this morning. Objective Vital Signs Date Time Temp Pulse Resp B/P (MAP) Pulse Ox O2 Delivery O2 Flow Rate FiO2 08/12/17 07:44 98 35 08/12/17 07:26 64 08/12/17 07:24 97.6 14 110/81 (91) 116/89 (98) 08/11/17 00:11 Ventilator 08/10/17 19:59 2.00 Intake and Output 08/12/17 08/12/17 08/13/17 08:00 16:00 00:00 Intake Total 1000 ml Output Total 435 ml Balance 565 ml Result Diagram: 08/12/17 0430 08/12/17 0430 Imaging Last Impressions Head CT 08/10/171937 Signed Impressions: Service Date/Time: July 19:50 - CONCLUSION: Negative noncontrast head CT. Trung Martel MD Chest X-Ray 08/10/171937 Signed Impressions: Service Date/Time: July 19:44 - CONCLUSION: Suspected early/mild failure. Focal atelectasis or scarring left midlung as well. Trung Martel MD Neck CTA 08/10/17 0000 Signed Impressions: Service Date/Time: July 20:45 - CONCLUSION: Tortuous but nonstenotic carotid arteries. Trung Martel MD Head CTA 08/10/17 Signed Impressions: Service Date/Time: July 20:45 - CONCLUSION: 1. No acute vessel thrombosis. 2. Nonfilling of the left A1 segment that appears developmental. Patent anterior communicating artery and A2 and distal segments fill normally. 3. 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 Trung Martel MD Aorta CTA 08/10/17 Signed Impressions: Service Date/Time: July 20:51 - CONCLUSION: Type B aortic dissection. Unusual dissection flap with a prominent wind sock component of the thoracic aorta beginning at the level of the mid arch and extending distal almost to the level of the diaphragmatic hiatus. No leak or rupture demonstrated. Arch vessels and the ascending aorta and root are not involved. Trung Martel MD Abdomen X-Ray 08/10/17 Signed Impressions: Service Date/Time: July 21:01 - CONCLUSION: No contraindication to MRI in the abdomen. Nonobstructive bowel gas pattern. Nasogastric tube is in the mid stomach. Trung Martel MD Objective Remarks HEENT/ Neuro: Sedated, orally intubated, no pallor, no icterus, tongue/ mucosa moist. Pupils 3 mm bilaterally equal reacting to light. Withdraws both upper and lower extremities. does not follow commands. Neck: No JVD Chest/Pulm: on mech vent, 40% fio2. equal chest rise. CVS: normal rate, regular rhythm. sbp 105 on my eval. HR 70. GI/abdomen: soft, nontender, nondistended, no guarding. Extremities: warm bilaterally, no edema, distal pulses 2+ LEs. good cap refill. A/P Assessment and Plan Assessment: 66yF with Acute type B aortic dissection, complicated by questionable neuro exam changes and acute hypoxic respiratory failure requiring mechanical ventilation. remains critically ill today. will continue tight BP and HR control. agitation prevents good neuro exam- will transition to precedex for improved agitation control. MRI today to eval for ischemic changes. bp control improved. discussed with Dr. Duran and will plan to re-image aorta tomorrow. very high risk of decompensation and from type B and still on active iv anti-hypertensives. still off pathway and critically ill today. Acute metabolic encephalopathy Agitated Delirium Type B aortic dissection Hypertensive emergency - improving. Acute hypoxic respiratory failure on mechanical ventilation Systolic Congestive Heart Failure, EF 20% Elevated troponins, likely type II NSTEMI secondary to Demand Ischemia Acute kidney injury- improving. Plan: Neuro: frequent neuro checks. wean sedation as tolerated. transition to precedex after MRI, goal RASS -2. MRI today. Cardiovascular: goal HR < 70, SBP < 120. carvedilol, hctz, po labetalol. keep art line. close bp monitoring.. trend trops. Pulmonary: wean mech vent as tolerated. if hemodynamically stable could consider wean to extubate after MRI. hob elevated, nebs, vent bundle. GI/liver: start TF today. Renal/: d/c mivf once TF started. adequate uop. Cr downtrending. home po lasix. ID: No indication for antibiotics at this time. Heme: Follow CBC Endocrine: Watch for hyperglycemia, SSI for glycemic control if needed. Prophylaxis: Pepcid/SCDs/subcutaneous heparin Dispo: remain in ICU. high risk for decompensation- ongoing organ failure. critically ill. Critical care time: 31 minutes, exclusive of separately billable procedures. Janes Bennett MD Aug 12, 2017 08:43
[2017-08-12] MEDS: FERROUS SULFATE 325 MG (65 MG ELEMENTAL IRON) TAB PO SCH ×2 (08:44→17:07)
[2017-08-12] MEDS: SODIUM CHLORIDE 0.9% FLUSH 10 ML FLUSH IV FLUSH SCH ×2 (08:44→22:24)
[2017-08-12] MEDS: MULTIVITAMINS/MINERALS THERAPEUTIC TAB PO SCH (08:45)
[2017-08-12] MEDS ORDERED: GADODIAMIDE PF 287 MG/ML 20 ML VIAL (for RAD MRI) IVCONTRAST ONE (08:49)
--- NOTE | 2017-08-12 09:26 | MB ---
cc: VEENA GALLARDO DATE OF CONSULTATION: 08/11/2017. HISTORY OF PRESENT ILLNESS: Ms. Funes is a 66-year-old black female known to my practice who has had headaches and shortness of breath for the last several days. Yesterday she developed sudden onset of left facial droop and dysarthria. She was diagnosed with an acute CVA. She was very hypertensive. Her CTA of her aorta showed type B aortic dissection involving the descending thoracic aorta to the diaphragm. There was no involvement of the arch vessels or ascending aorta. She was seen by vascular surgery and admitted to the intensive care unit. PAST MEDICAL HISTORY: Positive for: 1. Congestive heart failure. 2. Hypertension. 3. Thyroid disease. 4. History of bronchitis. 5. Sinusitis. 6. Peptic ulcer disease. MEDICATIONS: Medications include: 1. Hydrochlorothiazide. 2. Amlodipine. 3. Vitamins. 4. Enalapril. 5. Furosemide. 6. Carvedilol. 7. ProAir. 8. Aldactone. 9. Klor-Con. 10. Iron. ALLERGIES: 1. IODINE. 2. SULFAMETHOXAZOLE. 3. TRIMETHOPRIM. SOCIAL HISTORY: The patient does not smoke. She does not drink alcohol. She is . FAMILY HISTORY: The family history is positive for heart disease. REVIEW OF SYSTEMS: The review of systems is otherwise negative. PHYSICAL EXAMINATION: VITAL SIGNS: Blood pressure 98/74, pulse 73 and regular. HEAD, EYES, EARS, NOSE, THROAT: The patient is intubated and sedated. NECK: 2+ carotid upstrokes. LUNGS: Clear. HEART: Regular with no murmur or gallop. ABDOMEN: Abdomen soft. No bruits. EXTREMITIES: Without edema. 2+ distal pulses. NEUROLOGIC: Grossly nonfocal. EKGS: EKG was reviewed and showed normal sinus rhythm, PVCs and nonspecific ST-T changes. LABORATORY DATA: Hemoglobin 12.0. Potassium 2.8, creatinine 1.27, AST and ALT normal. Troponin 0.15 and 0.08. Echocardiogram showed severe left ventricular dysfunction with an ejection fraction of 20% to 25%, moderate mitral regurgitation, moderate tricuspid regurgitation. No evidence of aortic root dissection or ascending aortic dissection. DIAGNOSIS: 1. Acute CVA. 2. Type B aortic dissection. 3. Hypertensive emergency. 4. Acute respiratory failure. 5. Congestive heart failure. DISPOSITION: Ms. Funes will be monitored in the intensive care unit. We will continue ventilatory support. She is undergoing neurology evaluation. Her CT scan of the brain was unremarkable. She was seen by vascular surgery and medical therapy was recommended at this time. There was no evidence of ischemia and no evidence of rupture. We will continue blood pressure control. We will continue therapy for congestive heart failure. I will follow her for cardiology during her hospitalization. This was discussed with the patient's . MD SAJAN Torres/PANDA /6:53 PM /8:56 AM MARY
[2017-08-12] MEDS: DEXMEDETOMIDINE INJ 200 MCG in SODIUM CHLORIDE 0.9% INJ 50 ML IV PRN ×3 (11:05→19:30)
--- NOTE | 2017-08-12 11:29 | RADRPT ---
EXAM DATE/TIME: 08/12/2017 09:40 [facility] COMPARISON: CT BRAIN W/O CONTRAST, August 10, 2017, 19:50. INDICATIONS : Slurred speech. MEDICAL HISTORY : Congestive heart failure. Hypertension. SURGICAL HISTORY : None. ENCOUNTER: Initial ACUITY: 3 day PAIN SCORE: 0/10 LOCATION: cranial TECHNIQUE: Multiplanar, multisequence MRI of the brain was performed without contrast. FINDINGS: CEREBRUM: There is a area of abnormal increased T2 signal involving predominantly the lei matter of the right frontal parietal junction seen on series 12 image 19. This is associated with restricted diffusion. T his is a new finding as compared to the prior CT and is consistent with an acute infarct. No hemorrha gic component. There is a single linear area of restricted diffusion and increased T2 signal involvin g the lei matter of the right occipital lobe. The remainder of the lei-white matter demonstrates no rmal differentiation. No other areas of infarct are noted. WHITE MATTER: Scattered foci of increased T2 signal identified within the white matter. POSTERIOR FOSSA: The cerebellum and brainstem are intact. The 4th ventricle is midline. The cerebellopontine angle is unremarkable. The cerebellar tonsils are normal in position. DIFFUSION IMAGING: Restricted diffusion identified within the right frontal parietal junction involving the lei matter of the right occipital lobe consistent with infarct. EXTRACRANIAL: The visualized portions of the orbits and paranasal sinuses are unremarkable. CONCLUSION: Acute infarct involving the junction of the right frontal parietal lobe as well as a small focal area of restricted diffusion involving the right occipital lobe. These findings are new as compared to pr ior CT.. Samina Mata MD on August 12, 2017 at 11:20 Board Certified Radiologist. This report was verified electronically.
--- NOTE | 2017-08-12 11:39 | RADRPT ---
EXAM DATE/TIME: 08/12/2017 09:40 [facility] COMPARISON: MRI BRAIN W/O CONTRAST, August 12, 2017, 9:40. INDICATIONS : Slurred speech. MEDICAL HISTORY : Congestive heart failure. Hypertension. SURGICAL HISTORY : None. ENCOUNTER: Initial ACUITY: 3 day PAIN SCORE: 0/10 LOCATION: cranial Please note a normal MRA of the brain does not entirely exclude the possibility of a small aneurysm, nor the possibility of distal intracranial vessel disease. TECHNIQUE: 3D time of flight MRA was performed. Source images, multiplanar STS MIP, and 3D volume MIP reconstru ctions were reviewed. FINDINGS: There is excellent visualization of the major intracranial arteries out to the second-order branch ve ssels. There is no evidence for aneurysm, vessel truncation or stenosis, and no evidence for vascula r malformation. The left vertebral artery is dominant. CONCLUSION: No evidence of aneurysm or vessel truncation. No evidence of stenosis. The left vertebral artery is d ominant, however, the right vertebral artery appears patent.. Samina Mata MD on August 12, 2017 at 11:35 Board Certified Radiologist. This report was verified electronically.
--- NOTE | 2017-08-12 11:41 | RADRPT ---
EXAM DATE/TIME: 08/12/2017 09:40 [facility] COMPARISON: No previous studies available for comparison. INDICATIONS : Slurred speech CONTRAST: 20 cc Omniscan (gadodiamide) IV MEDICAL HISTORY : Congestive heart failure. Hypertension. SURGICAL HISTORY : None. ENCOUNTER: Initial ACUITY: 3 day PAIN SCORE: 0/10 LOCATION: neck Percent stenosis is calculated using the diameter of the stenotic region over the diameter of the nor mal distal internal carotid artery. TECHNIQUE: Bolus infused MRA of the extracranial circulation was performed using a neurovascular coil. Post pro cessing was performed including rotating subvolume maximum intensity projections of each carotid jesus ry, rotating full volume maximum intensity projections of both carotid arteries, sagittal and coronal sliding thin slab reformations of each carotid artery, and left oblique sliding thin slab reformatio n through the aortic arch to include the origin of the arch branch vessels. FINDINGS: AORTIC ARCH: There is a three vessel origin of the great vessels from the aorta. No evidence of ostial narrowing. RIGHT CAROTID: The common carotid artery is intact. The carotid bulb has a normal configuration without ulceration or narrowing. The internal carotid artery lumen is smooth without stenosis. The external carotid ar yoselin is intact. LEFT CAROTID: The common carotid artery is intact. The carotid bulb has a normal configuration without ulceration or narrowing. The internal carotid artery lumen is smooth without stenosis. The external carotid ar yoselin is intact. VERTEBRALS: The vertebral arteries have a symmetric diameter. No stenotic lesions are seen. CONCLUSION: Normal anatomy. No evidence of vessel stenosis or occlusion.. Samina Mata MD on August 12, 2017 at 11:37 Board Certified Radiologist. This report was verified electronically.
--- NOTE | 2017-08-12 16:15 | PD.CARD.PN ---
Subjective Subjective Remarks Unresponsive, on the vent, off sedation Objective Medications Current Medications Medications (Trade) Dose Ordered Sig/James Route Start Time Stop Time Status Last Admin Propofol 100 ml @ 0 mls/hr TITRATE PRN IV 08/10/17 21:00 08/12/17 07:53 (NS Flush) 2 ml UNSCH PRN IV FLUSH 08/10/17 22:00 (NS Flush) 2 ml BID IV FLUSH 08/11/17 09:00 08/12/17 08:44 (Tylenol) 650 mg Q6H PRN PO 08/10/17 22:00 (fentaNYL INJ) 50 mcg Q2HR PRN IV PUSH 08/10/17 22:00 08/11/17 00:23 (Duoneb Neb) 1 ampule Q4HR NEB PRN INH 08/10/17 22:00 (Peridex 0.12% Liq) 15 ml BID@08,20 MT 08/11/17 08:00 08/12/17 08:06 (Pepcid Inj) 20 mg DAILY IV PUSH 08/11/17 09:00 08/12/17 08:43 (Heparin Inj) 5,000 units Q8H SQ 08/11/17 06:00 08/12/17 14:00 Miscellaneous Information 1 Q361D XX 08/10/17 22:00 08/10/17 22:00 (Chlorhexidine 2% Cloth) 3 pack Taper DAILY@04 TOP 08/11/17 04:00 08/07/18 03:59 08/12/17 04:00 (Chlorhexidine 2% Cloth) 3 pack UNSCH PRN TOP 08/10/17 22:00 Labetalol HCl 500 mg/Sodium Chloride 250 ml @ 60 mls/hr TITRATE PRN IV 08/10/17 22:45 08/11/17 20:45 (Norvasc) 10 mg DAILY PO 08/11/17 09:00 08/12/17 08:41 (Coreg) 25 mg BID PO 08/11/17 09:00 08/12/17 08:42 (Ferrous Sulfate) 325 mg BIDPC PO 08/11/17 09:00 08/11/17 17:11 (Lasix) 40 mg DAILY PRN PO 08/11/17 01:15 (Hydrodiuril) 25 mg DAILY PO 08/11/17 09:00 08/12/17 08:43 (KCl) 20 meq DAILY PO 08/11/17 09:00 08/12/17 08:43 (Aldactone) 25 mg DAILY PO 08/11/17 09:00 08/12/17 08:42 (Theragran M Tab) 1 tab DAILY PO 08/11/17 09:00 08/11/17 09:39 (Trandate Inj) 20 mg Q15M PRN IV PUSH 08/11/17 08:45 (Apresoline Inj) 10 mg Q30M PRN IV PUSH 08/11/17 08:45 Dexmedetomidine HCl 200 mcg/ Sodium Chloride 52 ml @ 9.88 mls/hr TITRATE PRN IV 08/12/17 09:00 08/12/17 15:27 Vital Signs / I&O Vital Signs Date Time Temp Pulse Resp B/P (MAP) Pulse Ox O2 Delivery O2 Flow Rate FiO2 08/12/17 15:13 35 08/12/17 15:12 62 08/12/17 15:11 97.9 62 14 108/85 (93) 99 Automatic Cuff 08/12/17 13:16 99 35 08/12/17 11:10 61 08/12/17 11:10 35 08/12/17 11:08 97.9 61 12 98/61 (73) 99 94/73 (80) 08/12/17 10:35 99 35 08/12/17 09:45 96 35 08/12/17 07:44 98 35 08/12/17 07:26 64 08/12/17 07:26 35 08/12/17 07:24 97.6 64 14 110/81 (91) 98 116/89 (98) 08/12/17 04:10 99 35 08/12/17 04:00 35 08/12/17 04:00 97.0 59 12 108/78 (88) 98 111/67 (82) 08/12/17 04:00 62 08/12/17 01:10 98 35 08/11/17 23:00 97.0 58 12 98/74 (82) 98 103/63 (76) 08/11/17 23:00 35 08/11/17 23:00 58 08/11/17 21:43 97 35 08/11/17 20:23 97 35 08/11/17 19:00 64 08/11/17 19:00 97.6 61 13 104/77 (86) 96 103/63 (76) 08/11/17 19:00 35 08/11/17 18:02 98 35 I/O 08/11/17 08/11/17 08/11/17 08/12/17 08/12/17 08/12/17 07:00 15:00 23:00 07:00 15:00 23:00 Intake Total 862 ml 400 ml 900 ml 259 ml 200 ml Output Total 2250 ml 435 ml Balance -1388 ml 400 ml 465 ml 259 ml 200 ml Intake Oral 0 ml 0 ml IV Total 862 ml 400 ml 900 ml 259 ml 200 ml Output Urine Total 2250 ml 410 ml Stool Total 0 ml 0 ml Gastric Drainage Total 0 ml 25 ml Physical Exam GENERAL: On the vent SKIN: Warm and dry. HEAD: Normocephalic. EYES: No scleral icterus. No injection or drainage. NECK: Supple, trachea midline. No JVD or lymphadenopathy. CARDIOVASCULAR: Regular rate and rhythm without murmurs, gallops, or rubs. RESPIRATORY: Breath sounds equal bilaterally. No accessory muscle use. GASTROINTESTINAL: Abdomen soft, non-tender, nondistended. MUSCULOSKELETAL: No cyanosis, or edema. Laboratory Laboratory Tests Test 08/12/17 04:30 White Blood Count 12.8 TH/MM3 Red Blood Count 4.07 MIL/MM3 Hemoglobin 11.0 GM/DL Hematocrit 32.9 % Mean Corpuscular Volume 80.7 FL Mean Corpuscular Hemoglobin 27.1 PG Mean Corpuscular Hemoglobin Concent 33.6 % Red Cell Distribution Width 16.9 % Platelet Count 148 TH/MM3 Mean Platelet Volume 10.0 FL Blood Urea Nitrogen 22 MG/DL Creatinine 1.14 MG/DL Random Glucose 86 MG/DL Calcium Level 8.1 MG/DL Sodium Level 143 MEQ/L Potassium Level 3.5 MEQ/L Chloride Level 108 MEQ/L Carbon Dioxide Level 26.9 MEQ/L Anion Gap 8 MEQ/L Estimat Glomerular Filtration Rate 58 ML/MIN Imaging Last 24 hours Impressions Neck Magnetic Resonance Angiography 08/12/17 0900 Signed Impressions: Service Date/Time: Saturday, August 12, 2017 09:40 - CONCLUSION: Normal anatomy. No evidence of vessel stenosis or occlusion.. Samina Mata MD Head Magnetic Resonance Angiography 08/12/17899 Signed Impressions: Service Date/Time: Saturday, August 12, 2017 09:40 - CONCLUSION: No evidence of aneurysm or vessel truncation. No evidence of stenosis. The left vertebral artery is dominant, however, the right vertebral artery appears patent.. Samina Mata MD Brain MRI 08/12/17899 Signed Impressions: Service Date/Time: Saturday, August 12, 2017 09:40 - CONCLUSION: Acute infarct involving the junction of the right frontal parietal lobe as well as a small focal area of restricted diffusion involving the right occipital lobe. These findings are new as compared to prior CT.. Samina Mata MD Assessment and Plan Problem List: (1) Acute CVA (cerebrovascular accident) ICD Codes: I63.9 - Cerebral infarction, unspecified Status: Acute (2) Acute thoracic aortic dissection ICD Codes: I71.01 - Dissection of thoracic aorta Status: Acute (3) Cardiomyopathy ICD Codes: I42.9 - Cardiomyopathy, unspecified (4) Hypertension ICD Codes: I10 - Essential (primary) hypertension Status: Chronic (5) Chronic kidney disease ICD Codes: N18.9 - Chronic kidney disease, unspecified Status: Chronic Assessment and Plan Remains unresponsive off sedation. Neurology eval in progress. Type B aortic dissection will be treated medically. BP control. Tx for CHF. D/w pt's . Kvng Mae MD Aug 12, 2017 16:15
[2017-08-13] VITALS (16 sets, daily range): BP systolic 98–117; BP diastolic 53–80; PULSE 58–71; RESP 14–17; TEMP 97.8–99.2; O2SAT 95–100
[2017-08-13] MEDS: LABETALOL INJ 500 MG in SODIUM CHLORIDE 0.9% INJ 150 ML IV PRN (00:23)
[2017-08-13] MEDS: CHLORHEXIDINE GLUCONATE 2 % 1 PACK (2 CLOTHS) TOP SCH (04:00)
[2017-08-13 04:13] LABS: HEMATOCRIT 34.8 % (35.0-46.0); HEMOGLOBIN 11.5 GM/DL (11.6-15.3); MEAN CELL VOLUME 81.4 FL (80.0-100.0); MEAN CORPUSCULAR HGB CONC 33.2 % (32.0-36.0); MEAN PLATELET VOLUME 10.4 FL (7.0-11.0); PLATELET COUNT 146 TH/MM3 (150-450); RED BLOOD COUNT 4.27 MIL/MM3 (4.00-5.30); RED CELL DISTRIBUTION WIDTH 17.1 % (11.6-17.2); WHITE BLOOD COUNT 8.6 TH/MM3 (4.0-11.0)
[2017-08-13 04:39] LABS: BICARBONATE 27.6 MEQ/L (21.0-32.0); CREATININE 0.86 MG/DL (0.50-1.00)
[2017-08-13] MEDS: DEXMEDETOMIDINE INJ 200 MCG in SODIUM CHLORIDE 0.9% INJ 50 ML IV PRN ×3 (05:18→21:03)
[2017-08-13] MEDS: HEPARIN SODIUM - SQ 10,000 UNITS/ML VIAL SQ SCH ×3 (06:21→22:00)
[2017-08-13] MEDS: CHLORHEXIDINE 0.12% (ORAL KIT) 15 ML CUP MT SCH ×2 (07:45→20:00)
--- NOTE | 2017-08-13 07:57 | PD.VS.PN ---
Subjective Subjective/Hospital Course Pt adm with acute TBAD and intubated in ED HD stable overnight, sedated BP well controlled Apparently HE with lightening of sedation and even answered commands R sided CVA on MRI and neuro following Objective Vitals/I&O Date Time Temp Pulse Resp B/P (MAP) Pulse Ox O2 Delivery O2 Flow Rate FiO2 08/13/17 07:40 97.8 61 17 98/63 (75) 99 /80 08/13/17 07:39 35 08/13/17 07:39 62 08/13/17 07:01 98 35 08/13/17 04:03 99 35 08/13/17 04:00 60 08/13/17 04:00 35 08/13/17 04:00 98.5 60 16 105/68 (80) 99 117/80 (92) 08/13/17 00:00 58 08/13/17 00:00 35 08/13/17 00:00 98.5 58 15 105/62 (76) 98 105/75 (85) 08/12/17 23:42 98 35 08/12/17 20:26 97 35 08/12/17 20:00 60 08/12/17 20:00 98.6 61 16 91/51 (64) 97 95/68 (77) 08/12/17 20:00 35 08/12/17 16:20 98 35 08/12/17 15:13 35 08/12/17 15:12 62 08/12/17 15:11 97.9 62 14 108/85 (93) 99 Automatic Cuff 08/12/17 13:16 99 35 08/12/17 11:10 61 08/12/17 11:10 35 08/12/17 11:08 97.9 61 12 98/61 (73) 99 94/73 (80) 08/12/17 10:35 99 35 08/12/17 09:45 96 35 08/13/17 08/13/17 08/13/17 07:00 15:00 23:00 Intake Total 589 ml Output Total 825 ml Balance -236 ml Physical Exam no abdominal tenderness, albeit limited exam palpable femoral pulses Laboratory Laboratory Tests Test 08/13/17 03:40 White Blood Count 8.6 Red Blood Count 4.27 Hemoglobin 11.5 Hematocrit 34.8 Mean Corpuscular Volume 81.4 Mean Corpuscular Hemoglobin 27.0 Mean Corpuscular Hemoglobin Concent 33.2 Red Cell Distribution Width 17.1 Platelet Count 146 Mean Platelet Volume 10.4 Blood Urea Nitrogen 19 Creatinine 0.86 Random Glucose 110 Calcium Level 8.0 Sodium Level 142 Potassium Level 3.4 Chloride Level 107 Carbon Dioxide Level 27.6 Anion Gap 7 Estimat Glomerular Filtration Rate 80 Date/Time Source Procedure Growth Status 08/10/17 21:05 Urine Clean Catch Urine Culture - Final NO GROWTH IN 48 HOURS. Complete Imaging Last 48 hours Impressions Neck Magnetic Resonance Angiography 08/12/17899 Signed Impressions: Service Date/Time: Saturday, August 12, 2017 09:40 - CONCLUSION: Normal anatomy. No evidence of vessel stenosis or occlusion.. Samina Mata MD Head Magnetic Resonance Angiography 08/12/17899 Signed Impressions: Service Date/Time: Saturday, August 12, 2017 09:40 - CONCLUSION: No evidence of aneurysm or vessel truncation. No evidence of stenosis. The left vertebral artery is dominant, however, the right vertebral artery appears patent.. Samina Mata MD Brain MRI 08/12/17899 Signed Impressions: Service Date/Time: Saturday, August 12, 2017 09:40 - CONCLUSION: Acute infarct involving the junction of the right frontal parietal lobe as well as a small focal area of restricted diffusion involving the right occipital lobe. These findings are new as compared to prior CT.. Samina Mata MD Assessment and Plan Plan Adm with aTBAD and no sequelae of malperfusion nor rupture 1. Continue SBP goals <110 2. Wean vent as tolerated - ok from my standpoint to extubate 3. F/U Neuro recs re CVA 4. Repeat CTA tonight; ordered steroid/benadryl prep Aayush Duran MD FACS RPV[employer] [facility] - [facility] V[facility] at [facility] [phone] Aayush Duran MD Aug 13, 2017 07:57
[2017-08-13] MEDS: CARVEDILOL 12.5 MG TAB PO SCH ×2 (08:24→21:02)
[2017-08-13] MEDS: SODIUM CHLORIDE 0.9% FLUSH 10 ML FLUSH IV FLUSH SCH ×2 (08:24→21:03)
[2017-08-13] MEDS: HYDROCHLOROTHIAZIDE 25 MG TAB PO SCH (08:24)
[2017-08-13] MEDS: POTASSIUM CHLORIDE 10 MEQ CONTROLLED RELEASE TAB PO SCH (08:25)
[2017-08-13] MEDS: FAMOTIDINE 20 MG/2 ML VIAL IV PUSH SCH (08:25)
[2017-08-13] MEDS: FERROUS SULFATE 325 MG (65 MG ELEMENTAL IRON) TAB PO SCH ×2 (08:27→18:00)
[2017-08-13] MEDS: MULTIVITAMINS/MINERALS THERAPEUTIC TAB PO SCH (08:27)
[2017-08-13] MEDS: SPIRONOLACTONE 25 MG TAB PO SCH (08:27)
[2017-08-13] MEDS: predniSONE 50 MG TAB PO SCH ×3 (09:23→21:02)
[2017-08-13 12:01] LABS: CHOLESTEROL/ HDL RATIO 3.55 RATIO; HDL CHOLESTEROL 35.2 MG/DL (40.0-60.0)
--- NOTE | 2017-08-13 12:36 | HHI.PR ---
Review/Management Daily Summary 08/13 intubated but follows all simple commands even able to count fingers giana (mouth words correctly) moves 4 limbs well mr findings noted she will benefit of antiplatelet tx (at least) if vascular dx/aortic aneurysm dissection allows this continue to monitor Subjective Subjective Comments intubated Active Medications Current Medications Medications (Trade) Dose Ordered Sig/James Route Start Time Stop Time Status Last Admin Propofol 100 ml @ 0 mls/hr TITRATE PRN IV 08/10/17 21:00 08/12/17 07:53 (NS Flush) 2 ml UNSCH PRN IV FLUSH 08/10/17 22:00 (NS Flush) 2 ml BID IV FLUSH 08/11/17 09:00 08/13/17 08:24 (Tylenol) 650 mg Q6H PRN PO 08/10/17 22:00 (fentaNYL INJ) 50 mcg Q2HR PRN IV PUSH 08/10/17 22:00 08/11/17 00:23 (Duoneb Neb) 1 ampule Q4HR NEB PRN INH 08/10/17 22:00 (Peridex 0.12% Liq) 15 ml BID@08,20 MT 08/11/17 08:00 08/13/17 07:45 (Pepcid Inj) 20 mg DAILY IV PUSH 08/11/17 09:00 08/13/17 08:25 (Heparin Inj) 5,000 units Q8H SQ 08/11/17 06:00 08/13/17 06:21 Miscellaneous Information 1 Q361D XX 08/10/17 22:00 08/10/17 22:00 (Chlorhexidine 2% Cloth) 3 pack Taper DAILY@04 TOP 08/11/17 04:00 08/07/18 03:59 08/13/17 04:00 (Chlorhexidine 2% Cloth) 3 pack UNSCH PRN TOP 08/10/17 22:00 Labetalol HCl 500 mg/Sodium Chloride 250 ml @ 60 mls/hr TITRATE PRN IV 08/10/17 22:45 08/13/17 00:23 (Norvasc) 10 mg DAILY PO 08/11/17 09:00 08/13/17 08:24 (Coreg) 25 mg BID PO 08/11/17 09:00 08/13/17 08:24 (Ferrous Sulfate) 325 mg BIDPC PO 08/11/17 09:00 08/11/17 17:11 (Lasix) 40 mg DAILY PRN PO 08/11/17 01:15 (Hydrodiuril) 25 mg DAILY PO 08/11/17 09:00 08/13/17 08:24 (KCl) 20 meq DAILY PO 08/11/17 09:00 08/13/17 08:25 (Aldactone) 25 mg DAILY PO 08/11/17 09:00 08/13/17 08:27 (Theragran M Tab) 1 tab DAILY PO 08/11/17 09:00 08/11/17 09:39 (Trandate Inj) 20 mg Q15M PRN IV PUSH 08/11/17 08:45 (Apresoline Inj) 10 mg Q30M PRN IV PUSH 08/11/17 08:45 08/12/17 16:40 Dexmedetomidine HCl 200 mcg/ Sodium Chloride 52 ml @ 9.88 mls/hr TITRATE PRN IV 08/12/17 09:00 08/13/17 11:37 (Deltasone) 50 mg Q6H PO 08/13/17 09:00 08/13/17 21:00 08/13/17 09:23 (Benadryl) 50 mg ONCE ONCE PO 08/13/17 21:00 08/13/17 21:01 Allergies Allergies Coded Allergies iodine (Unverified Allergy, Severe, sneezing, chest tightness, 08/10/17) potassium iodide (Unverified Allergy, Severe, sneezing, chest tightness, ) povidone-iodine (Unverified Allergy, Severe, sneezing, chest tightness, ) sodium iodide (Unverified Allergy, Severe, sneezing, chest tightness, 08/10/17) sodium iodide (Unverified Allergy, Severe, sneezing, chest tightness, 08/10/17) sulfamethoxazole (Unverified Allergy, Intermediate, abdominal pain, 08/10/17) trimethoprim (Unverified Allergy, Intermediate, abdominal pain, 08/10/17) Exam I&O / VS 08/13/17 08/13/17 08/14/17 15:00 23:00 07:00 Intake Total 52 ml Balance 52 ml IV Total 52 ml Vital Signs Date Time Temp Pulse Resp B/P (MAP) Pulse Ox O2 Delivery O2 Flow Rate FiO2 08/13/17 11:07 35 08/13/17 11:07 63 08/13/17 11:06 98.3 63 14 101/57 (72) 98 /80 08/13/17 09:05 35 08/13/17 07:40 97.8 61 17 98/63 (75) 99 /80 08/13/17 07:39 35 08/13/17 07:39 62 08/13/17 07:01 98 35 08/13/17 04:03 99 35 08/13/17 04:00 60 08/13/17 04:00 35 08/13/17 04:00 98.5 60 16 105/68 (80) 99 117/80 (92) 08/13/17 00:00 58 08/13/17 00:00 35 08/13/17 00:00 98.5 58 15 105/62 (76) 98 105/75 (85) 08/12/17 23:42 98 35 08/12/17 20:26 97 35 08/12/17 20:00 60 08/12/17 20:00 98.6 61 16 91/51 (64) 97 95/68 (77) 08/12/17 20:00 35 08/12/17 16:20 98 35 08/12/17 15:13 35 08/12/17 15:12 62 08/12/17 15:11 97.9 62 14 108/85 (93) 99 Automatic Cuff 08/12/17 13:16 99 35 Objective Radiology Results Last 48 hours Impressions Neck Magnetic Resonance Angiography 08/12/17899 Signed Impressions: Service Date/Time: Saturday, August 12, 2017 09:40 - CONCLUSION: Normal anatomy. No evidence of vessel stenosis or occlusion.. Samina Mata MD Head Magnetic Resonance Angiography 08/12/17899 Signed Impressions: Service Date/Time: Saturday, August 12, 2017 09:40 - CONCLUSION: No evidence of aneurysm or vessel truncation. No evidence of stenosis. The left vertebral artery is dominant, however, the right vertebral artery appears patent.. Samina Mata MD Brain MRI 08/12/17899 Signed Impressions: Service Date/Time: Saturday, August 12, 2017 09:40 - CONCLUSION: Acute infarct involving the junction of the right frontal parietal lobe as well as a small focal area of restricted diffusion involving the right occipital lobe. These findings are new as compared to prior CT.. Samina Mata MD Micro and Labs Laboratory Tests Test 08/13/17 03:40 White Blood Count 8.6 Red Blood Count 4.27 Hemoglobin 11.5 Hematocrit 34.8 Mean Corpuscular Volume 81.4 Mean Corpuscular Hemoglobin 27.0 Mean Corpuscular Hemoglobin Concent 33.2 Red Cell Distribution Width 17.1 Platelet Count 146 Mean Platelet Volume 10.4 Blood Urea Nitrogen 19 Creatinine 0.86 Random Glucose 110 Calcium Level 8.0 Sodium Level 142 Potassium Level 3.4 Chloride Level 107 Carbon Dioxide Level 27.6 Anion Gap 7 Estimat Glomerular Filtration Rate 80 Triglycerides Level 68 Cholesterol Level 125 LDL Cholesterol 76 HDL Cholesterol 35.2 Cholesterol/HDL Ratio 3.55 Date/Time Source Procedure Growth Status 08/13/17 07:45 Sputum Endotracheal Gram Stain Pending Received 08/13/17 07:45 Sputum Endotracheal Sputum Culture Pending Received 08/10/17 21:05 Urine Clean Catch Urine Culture - Final NO GROWTH IN 48 HOURS. Complete Cleve Enamorado MD Aug 13, 2017 12:36
--- NOTE | 2017-08-13 17:02 | PD.CARD.PN ---
Subjective Subjective Remarks Reacting to questions, NS improving Objective Medications Current Medications Medications (Trade) Dose Ordered Sig/James Route Start Time Stop Time Status Last Admin Propofol 100 ml @ 0 mls/hr TITRATE PRN IV 08/10/17 21:00 08/12/17 07:53 (NS Flush) 2 ml UNSCH PRN IV FLUSH 08/10/17 22:00 (NS Flush) 2 ml BID IV FLUSH 08/11/17 09:00 08/13/17 08:24 (Tylenol) 650 mg Q6H PRN PO 08/10/17 22:00 (fentaNYL INJ) 50 mcg Q2HR PRN IV PUSH 08/10/17 22:00 08/11/17 00:23 (Duoneb Neb) 1 ampule Q4HR NEB PRN INH 08/10/17 22:00 (Peridex 0.12% Liq) 15 ml BID@08,20 MT 08/11/17 08:00 08/13/17 07:45 (Pepcid Inj) 20 mg DAILY IV PUSH 08/11/17 09:00 08/13/17 08:25 (Heparin Inj) 5,000 units Q8H SQ 08/11/17 06:00 08/13/17 13:55 Miscellaneous Information 1 Q361D XX 08/10/17 22:00 08/10/17 22:00 (Chlorhexidine 2% Cloth) 3 pack Taper DAILY@04 TOP 08/11/17 04:00 08/07/18 03:59 08/13/17 04:00 (Chlorhexidine 2% Cloth) 3 pack UNSCH PRN TOP 08/10/17 22:00 Labetalol HCl 500 mg/Sodium Chloride 250 ml @ 60 mls/hr TITRATE PRN IV 08/10/17 22:45 08/13/17 00:23 (Norvasc) 10 mg DAILY PO 08/11/17 09:00 08/13/17 08:24 (Coreg) 25 mg BID PO 08/11/17 09:00 08/13/17 08:24 (Ferrous Sulfate) 325 mg BIDPC PO 08/11/17 09:00 08/11/17 17:11 (Lasix) 40 mg DAILY PRN PO 08/11/17 01:15 (Hydrodiuril) 25 mg DAILY PO 08/11/17 09:00 08/13/17 08:24 (KCl) 20 meq DAILY PO 08/11/17 09:00 08/13/17 08:25 (Aldactone) 25 mg DAILY PO 08/11/17 09:00 08/13/17 08:27 (Theragran M Tab) 1 tab DAILY PO 08/11/17 09:00 08/11/17 09:39 (Trandate Inj) 20 mg Q15M PRN IV PUSH 08/11/17 08:45 (Apresoline Inj) 10 mg Q30M PRN IV PUSH 08/11/17 08:45 08/12/17 16:40 Dexmedetomidine HCl 200 mcg/ Sodium Chloride 52 ml @ 9.88 mls/hr TITRATE PRN IV 08/12/17 09:00 08/13/17 11:37 (Deltasone) 50 mg Q6H PO 08/13/17 09:00 08/13/17 21:00 08/13/17 15:15 (Benadryl) 50 mg ONCE ONCE PO 08/13/17 21:00 08/13/17 21:01 Vital Signs / I&O Vital Signs Date Time Temp Pulse Resp B/P (MAP) Pulse Ox O2 Delivery O2 Flow Rate FiO2 08/13/17 16:44 95 35 08/13/17 15:14 63 08/13/17 15:14 35 08/13/17 15:13 99.2 63 16 107/53 (71) 98 /80 08/13/17 12:51 97 35 08/13/17 11:07 35 08/13/17 11:07 63 08/13/17 11:06 98.3 63 14 101/57 (72) 98 /80 08/13/17 09:05 35 08/13/17 07:40 97.8 61 17 98/63 (75) 99 /80 08/13/17 07:39 35 08/13/17 07:39 62 08/13/17 07:01 98 35 08/13/17 04:03 99 35 08/13/17 04:00 60 08/13/17 04:00 35 08/13/17 04:00 98.5 60 16 105/68 (80) 99 117/80 (92) 08/13/17 00:00 58 08/13/17 00:00 35 08/13/17 00:00 98.5 58 15 105/62 (76) 98 105/75 (85) 08/12/17 23:42 98 35 08/12/17 20:26 97 35 08/12/17 20:00 60 08/12/17 20:00 98.6 61 16 91/51 (64) 97 95/68 (77) 08/12/17 20:00 35 I/O 08/12/17 08/12/17 08/12/17 08/13/17 08/13/17 08/13/17 07:00 15:00 23:00 07:00 15:00 23:00 Intake Total 900 ml 259 ml 287 ml 589 ml 52 ml Output Total 435 ml 955.0 ml 825 ml Balance 465 ml 259 ml -668.0 ml -236 ml 52 ml Intake Oral 0 ml 0 ml IV Total 900 ml 259 ml 252 ml 302 ml 52 ml Tube Feeding 35 ml 287 ml Output Urine Total 410 ml 795 ml 825 ml Stool Total 0 ml Gastric Drainage Total 25 ml 100 ml Tube Feeding Residual Discard 60.0 ml # Bowel Movements 0 0 Physical Exam GENERAL: On the vent, reacting to questions SKIN: Warm and dry. HEAD: Normocephalic. EYES: No scleral icterus. No injection or drainage. NECK: Supple, trachea midline. No JVD or lymphadenopathy. CARDIOVASCULAR: Regular rate and rhythm without murmurs, gallops, or rubs. RESPIRATORY: Breath sounds equal bilaterally. No accessory muscle use. GASTROINTESTINAL: Abdomen soft, non-tender, nondistended. MUSCULOSKELETAL: No cyanosis, or edema. Laboratory Laboratory Tests Test 08/13/17 03:40 White Blood Count 8.6 TH/MM3 Red Blood Count 4.27 MIL/MM3 Hemoglobin 11.5 GM/DL Hematocrit 34.8 % Mean Corpuscular Volume 81.4 FL Mean Corpuscular Hemoglobin 27.0 PG Mean Corpuscular Hemoglobin Concent 33.2 % Red Cell Distribution Width 17.1 % Platelet Count 146 TH/MM3 Mean Platelet Volume 10.4 FL Blood Urea Nitrogen 19 MG/DL Creatinine 0.86 MG/DL Random Glucose 110 MG/DL Calcium Level 8.0 MG/DL Sodium Level 142 MEQ/L Potassium Level 3.4 MEQ/L Chloride Level 107 MEQ/L Carbon Dioxide Level 27.6 MEQ/L Anion Gap 7 MEQ/L Estimat Glomerular Filtration Rate 80 ML/MIN Triglycerides Level 68 MG/DL Cholesterol Level 125 MG/DL LDL Cholesterol 76 MG/DL HDL Cholesterol 35.2 MG/DL Cholesterol/HDL Ratio 3.55 RATIO Assessment and Plan Problem List: (1) Acute CVA (cerebrovascular accident) ICD Codes: I63.9 - Cerebral infarction, unspecified Status: Acute (2) Acute thoracic aortic dissection ICD Codes: I71.01 - Dissection of thoracic aorta Status: Acute (3) Cardiomyopathy ICD Codes: I42.9 - Cardiomyopathy, unspecified (4) Hypertension ICD Codes: I10 - Essential (primary) hypertension Status: Chronic (5) Chronic kidney disease ICD Codes: N18.9 - Chronic kidney disease, unspecified Status: Chronic Assessment and Plan Neuro status improving. Neurology eval in progress. Type B aortic dissection will be treated medically. BP controlled. Wean vent as tolerated. Continue ICU care. Continue tx for CHF. D/w pt's . Kvng Mae MD Aug 13, 2017 17:02
--- NOTE | 2017-08-13 18:45 | HHI.CCPN ---
Subjective Remarks/Hospital Course Hospital Course: 66-year-old female presented with sudden onset left facial droop and dysarthria that began at 645 this evening 1 hour prior to presentation. Patient brought in by by her family. Patient had no complaints of headache, extremity weakness , chest pain, shortness of breath. Stroke alert was called. Patient underwent head CT which was negative for bleed. Subsequently on returning from CAT scan patient developed shortness of breath with her blood pressure going up to 240s systolic. She was emergently intubated and placed on mechanical ventilation and sedated with propofol. She was also started on labetalol drip to control her blood pressure. CTA chest revealed type B aortic dissection involving thoracic aorta up to the diaphragm. Vascular surgery was consulted and patient was evaluated by Dr. Duran in the ER. Patient was accepted for admission by critical care medicine service. When I evaluated the patient she was sedated with propofol, orally intubated on mechanical ventilation. History was obtained by reviewing records and discussion with family members as well as ER physician. Per family patient was admitted in June 2017 at [place] for congestive heart failure. Subjective: 08/11: remains intubated. Cr trending down. BP and HR under good control. still need to obtain good neuro exam- sedated while intubated and controlling BP. distal pulses +. 08/12: still intubated. becomes agitated on sedation vacation, but moves all extremities. MRI planned for today. distal pulses +, uop adequate. Cr improving. off labetalol drip this morning. 08/13: following commands. bp under control. off labetalol infusion. CTA planned for this evening after steroid pre-treatment for contrast allergy. Objective Vital Signs Date Time Temp Pulse Resp B/P (MAP) Pulse Ox O2 Delivery O2 Flow Rate FiO2 08/13/17 16:44 95 35 08/13/17 15:14 63 08/13/17 15:13 99.2 16 107/53 (71) /80 08/11/17 00:11 Ventilator 08/10/17 19:59 2.00 Intake and Output 08/13/17 08/13/17 08/13/17 07:59 15:59 23:59 Intake Total 589 ml 52 ml 492 ml Output Total 825 ml 300.0 ml Balance -236 ml 52 ml 192.0 ml Result Diagram: 08/13/17 0340 08/13/17 0340 Other Results Microbiology Date/Time Source Procedure Growth Status 08/10/17 21:05 Urine Clean Catch Urine Culture - Final NO GROWTH IN 48 HOURS. Complete Imaging Last Impressions Head CT 08/10/171937 Signed Impressions: Service Date/Time: July 19:50 - CONCLUSION: Negative noncontrast head CT. Trung Martel MD Chest X-Ray 08/10/171937 Signed Impressions: Service Date/Time: July 19:44 - CONCLUSION: Suspected early/mild failure. Focal atelectasis or scarring left midlung as well. Trung Martel MD Neck CTA 08/10/17 0000 Signed Impressions: Service Date/Time: July 20:45 - CONCLUSION: Tortuous but nonstenotic carotid arteries. Trung Martel MD Head CTA 08/10/17 0000 Signed Impressions: Service Date/Time: July 20:45 - CONCLUSION: 1. No acute vessel thrombosis. 2. Nonfilling of the left A1 segment that appears developmental. Patent anterior communicating artery and A2 and distal segments fill normally. 3. 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 Trung Martel MD Aorta CTA 08/10/17 0000 Signed Impressions: Service Date/Time: July 20:51 - CONCLUSION: Type B aortic dissection. Unusual dissection flap with a prominent wind sock component of the thoracic aorta beginning at the level of the mid arch and extending distal almost to the level of the diaphragmatic hiatus. No leak or rupture demonstrated. Arch vessels and the ascending aorta and root are not involved. Trung Martel MD Abdomen X-Ray 08/10/17 0000 Signed Impressions: Service Date/Time: July 21:01 - CONCLUSION: No contraindication to MRI in the abdomen. Nonobstructive bowel gas pattern. Nasogastric tube is in the mid stomach. Trung Martel MD Objective Remarks HEENT/ Neuro: Sedated, orally intubated, no pallor, no icterus, tongue/ mucosa moist. Pupils 3 mm bilaterally equal reacting to light. following commands x 4 this AM. spontaneously moves all extremities. Neck: No JVD Chest/Pulm: on mech vent, 40% fio2. equal chest rise. CVS: normal rate, regular rhythm. GI/abdomen: soft, nontender, nondistended, no guarding. Extremities: warm bilaterally, no edema, distal pulses 2+ LEs. good cap refill. A/P Assessment and Plan Assessment: 66yF with Acute type B aortic dissection, complicated by small right parietal CVA and acute hypoxic respiratory failure requiring mechanical ventilation. Plan for CT aortogram today. will complete stroke work-up. will hold on ASA until after aortogram imaging. Acute metabolic encephalopathy - improving. Agitated Delirium Type B aortic dissection Hypertensive emergency - improving. Acute hypoxic respiratory failure on mechanical ventilation Systolic Congestive Heart Failure, EF 20% Elevated troponins, likely type II NSTEMI secondary to Demand Ischemia Acute kidney injury- improving. Plan: Neuro: frequent neuro checks. precedex for sedation. Cardiovascular: goal HR < 70, SBP < 120. carvedilol, hctz, po labetalol. keep art line. close bp monitoring. Pulmonary: wean mech vent as tolerated. hob elevated, nebs, vent bundle. GI/liver: TF. Renal/: adequate uop. Cr downtrending. home po lasix. ID: No indication for antibiotics at this time. Heme: Follow CBC Endocrine: Watch for hyperglycemia, SSI for glycemic control if needed. Prophylaxis: Pepcid/SCDs/subcutaneous heparin Dispo: remain in ICU. high risk for decompensation- ongoing organ failure. critically ill. Janes Bennett MD Aug 13, 2017 18:45
[2017-08-13] MEDS ORDERED: diphenhydrAMINE HCL 50 MG CAP PO ONE (21:00)
[2017-08-13] MEDS ORDERED: ATROPINE SULFATE 1 MG/10 ML SYRINGE ONE (21:59)
[2017-08-13] MEDS ORDERED: EPINEPHrine HCL (1:10,000) 1 MG/10 ML SYRINGE ONE (22:00)
[2017-08-13] MEDS ORDERED: IOHEXOL 350 MG/ML 10 ML VIAL (for RAD DIAG) IVCONTRAST ONE ×2 (22:10→22:35)
[2017-08-14] VITALS (11 sets, daily range): BP systolic 109–129; BP diastolic 49–93; PULSE 55–80; RESP 14–18; TEMP 97.5–99; O2SAT 92–99
[2017-08-14] MEDS: DEXMEDETOMIDINE INJ 200 MCG in SODIUM CHLORIDE 0.9% INJ 50 ML IV PRN ×2 (01:33→06:16)
[2017-08-14] MEDS: LABETALOL INJ 500 MG in SODIUM CHLORIDE 0.9% INJ 150 ML IV PRN (02:38)
[2017-08-14] MEDS: CHLORHEXIDINE GLUCONATE 2 % 1 PACK (2 CLOTHS) TOP SCH (04:00)
--- NOTE | 2017-08-14 04:21 | RADRPT ---
EXAM DATE/TIME: 08/13/2017 22:19 [place] COMPARISON: No previous studies available for comparison. INDICATIONS : Aortic dissection IV CONTRAST: 96 cc Omnipaque 350 (iohexol) IV RADIATION DOSE: 7.79 CTDIvol (mGy) MEDICAL HISTORY : Hypertension. Cardiovascular disease Congestive heart failure. SURGICAL HISTORY : None. ENCOUNTER: Subsequent ACUITY: 3 days PAIN SCALE: Non-responsive LOCATION: chest TECHNIQUE: Volumetric scanning was performed using a multi-row detector CT scanner. The data was post processed with a variety of visualization algorithms including full volume maximum intensity projection, multi -planar sliding thin slab reformation, curved planar reformation, and surface rendering techniques. Using automated exposure control and adjustment of the mA and/or kV according to patient size, radiat ion dose was kept as low as reasonably achievable to obtain optimal diagnostic quality images. DICOM format image data is available electronically for review and comparison. FINDINGS: Today's exam reveals no evidence for aortic dissection. No significant aneurysmal dilatation. There are several small blood clots within branch vessels of the right pulmonary artery at the segmen neftaly level characteristic of pulmonary embolic disease. Small bilateral pleural effusions. There is basilar dependent atelectasis and consolidation in the ileana ngs. Airspace disease improved from August 10 Endotracheal tube is in good position. NG is seen with its tip in the distal stomach. No abdominal aortic aneurysm. Branch vessels are patent. Mild anasarca. No new findings within the ab domen and pelvis. Colonic diverticulosis. CONCLUSION: 1. No evidence for thoracic or abdominal aortic aneurysm or dissection. 2. Positive for segmental pulmonary emboli noted in the right lung. 3. Findings called to the floor nurse at the time of dictation. Reilly Velasquez MD on August 14, 2017 at 4:01 Board Certified Radiologist. This report was verified electronically.
[2017-08-14 04:43] LABS: HEMATOCRIT 36.8 % (35.0-46.0); HEMOGLOBIN 12.3 GM/DL (11.6-15.3); MEAN CELL VOLUME 80.2 FL (80.0-100.0); MEAN CORPUSCULAR HEMOGLOBIN 26.8 PG (27.0-34.0); MEAN CORPUSCULAR HGB CONC 33.4 % (32.0-36.0); MEAN PLATELET VOLUME 10.6 FL (7.0-11.0); PLATELET COUNT 165 TH/MM3 (150-450); RED BLOOD COUNT 4.59 MIL/MM3 (4.00-5.30); RED CELL DISTRIBUTION WIDTH 16.7 % (11.6-17.2); WHITE BLOOD COUNT 12.9 TH/MM3 (4.0-11.0)
[2017-08-14 04:58] LABS: BICARBONATE 29.1 MEQ/L (21.0-32.0); CALCIUM 8.9 MG/DL (8.5-10.1); CREATININE 0.83 MG/DL (0.50-1.00)
[2017-08-14] MEDS: HEPARIN SODIUM - SQ 10,000 UNITS/ML VIAL SQ SCH ×3 (06:00→20:27)
--- NOTE | 2017-08-14 06:16 | PD.VS.PN ---
Subjective Subjective/Hospital Course Pt adm with acute TBAD and intubated in ED HD stable overnight, sedated Found to have R CVA on MRI Repeat CTA showed no dissection so likely first CT was mixing artifact Apparently follows commands Objective Vitals/I&O Date Time Temp Pulse Resp B/P (MAP) Pulse Ox O2 Delivery O2 Flow Rate FiO2 08/14/17 04:00 98.8 55 14 116/83 (94) 98 119/75 (90) 08/14/17 04:00 55 08/14/17 03:59 98 35 08/14/17 03:00 35 08/14/17 00:39 99 35 08/14/17 00:00 99.0 58 16 99 129/49 (75) 08/14/17 00:00 58 08/13/17 23:00 35 08/13/17 22:20 100 100 08/13/17 22:00 35 08/13/17 20:35 98 35 08/13/17 20:00 63 08/13/17 19:00 99.2 71 17 117/62 (80) 98 114/68 (83) 08/13/17 19:00 35 08/13/17 16:44 95 35 08/13/17 15:14 63 08/13/17 15:14 35 08/13/17 15:13 99.2 63 16 107/53 (71) 98 /80 08/13/17 12:51 97 35 08/13/17 11:07 35 08/13/17 11:07 63 08/13/17 11:06 98.3 63 14 101/57 (72) 98 /80 08/13/17 09:05 35 08/13/17 07:40 97.8 61 17 98/63 (75) 99 /80 08/13/17 07:39 35 08/13/17 07:39 62 08/13/17 07:01 98 35 08/14/17 08/14/17 08/14/17 07:00 15:00 23:00 Intake Total 628 ml Output Total 390 ml Balance 238 ml Physical Exam sedated palpable femoral pulses Laboratory Laboratory Tests Test 08/14/17 03:20 White Blood Count 12.9 Red Blood Count 4.59 Hemoglobin 12.3 Hematocrit 36.8 Mean Corpuscular Volume 80.2 Mean Corpuscular Hemoglobin 26.8 Mean Corpuscular Hemoglobin Concent 33.4 Red Cell Distribution Width 16.7 Platelet Count 165 Mean Platelet Volume 10.6 Blood Urea Nitrogen 22 Creatinine 0.83 Random Glucose 122 Calcium Level 8.9 Sodium Level 141 Potassium Level 3.5 Chloride Level 105 Carbon Dioxide Level 29.1 Anion Gap 7 Estimat Glomerular Filtration Rate 83 Date/Time Source Procedure Growth Status 08/13/17 07:45 Sputum Endotracheal Gram Stain Pending Received 08/13/17 07:45 Sputum Endotracheal Sputum Culture Pending Received 08/10/17 21:05 Urine Clean Catch Urine Culture - Final NO GROWTH IN 48 HOURS. Complete Imaging Last 48 hours Impressions Aorta CTA 08/13/17 0000 Signed Impressions: Service Date/Time: Sunday, August 13, 2017 22:19 - CONCLUSION: 1. No evidence for thoracic or abdominal aortic aneurysm or dissection. 2. Positive for segmental pulmonary emboli noted in the right lung. 3. Findings called to the floor nurse at the time of dictation. Reilly Velasquez MD Neck Magnetic Resonance Angiography 08/12/17 09 Signed Impressions: Service Date/Time: Saturday, August 12, 2017 09:40 - CONCLUSION: Normal anatomy. No evidence of vessel stenosis or occlusion.. Samina Mata MD Head Magnetic Resonance Angiography 08/12/17 09 Signed Impressions: Service Date/Time: Saturday, August 12, 2017 09:40 - CONCLUSION: No evidence of aneurysm or vessel truncation. No evidence of stenosis. The left vertebral artery is dominant, however, the right vertebral artery appears patent.. Samina Mata MD Brain MRI 08/12/17 09 Signed Impressions: Service Date/Time: Saturday, August 12, 2017 09:40 - CONCLUSION: Acute infarct involving the junction of the right frontal parietal lobe as well as a small focal area of restricted diffusion involving the right occipital lobe. These findings are new as compared to prior CT.. Samina Mata MD Assessment and Plan Plan No evidence of dissection 1. BP goals per neurology based on CVA 2. Incidental CT finding showed small PEs - ok to have systemic anticoagulation from vascular standpoint 3. No carotid stenosis by MRA 4. No vascular f/u needed A[facility]ush Duran MD [facility] - [facility] and Vascular Surgery at [facility] [phone] Aayush Duran MD Aug 14, 2017 06:16
[2017-08-14] MEDS: CHLORHEXIDINE 0.12% (ORAL KIT) 15 ML CUP MT SCH ×2 (08:00→20:27)
--- NOTE | 2017-08-14 08:43 | HHI.CCPN ---
Subjective Remarks/Hospital Course Hospital Course: 66-year-old female presented with sudden onset left facial droop and dysarthria that began at 645 this evening 1 hour prior to presentation. Patient brought in by by her family. Patient had no complaints of headache, extremity weakness , chest pain, shortness of breath. Stroke alert was called. Patient underwent head CT which was negative for bleed. Subsequently on returning from CAT scan patient developed shortness of breath with her blood pressure going up to 240s systolic. She was emergently intubated and placed on mechanical ventilation and sedated with propofol. She was also started on labetalol drip to control her blood pressure. CTA chest revealed type B aortic dissection involving thoracic aorta up to the diaphragm. Vascular surgery was consulted and patient was evaluated by Dr. Duran in the ER. Patient was accepted for admission by critical care medicine service. When I evaluated the patient she was sedated with propofol, orally intubated on mechanical ventilation. History was obtained by reviewing records and discussion with family members as well as ER physician. Per family patient was admitted in June 2017 at [place] for congestive heart failure. Subjective: 08/11: remains intubated. Cr trending down. BP and HR under good control. still need to obtain good neuro exam- sedated while intubated and controlling BP. distal pulses +. 08/12: still intubated. becomes agitated on sedation vacation, but moves all extremities. MRI planned for today. distal pulses +, uop adequate. Cr improving. off labetalol drip this morning. 08/13: following commands. bp under control. off labetalol infusion. CTA planned for this evening after steroid pre-treatment for contrast allergy. 08/14: following commands. passed SBT. extubated successfully. repeat CTA without evidence of worsening aortic dissection, but did mention small subsegmental pulmonary emboli, though contrast not timed specifically for pulmonary angiogram. Objective Vital Signs Date Time Temp Pulse Resp B/P (MAP) Pulse Ox O2 Delivery O2 Flow Rate FiO2 08/14/17 07:50 98 Nasal Cannula 4 08/14/17 07:40 100 35 08/14/17 04:00 98.8 55 14 116/83 (94) 119/75 (90) Intake and Output 08/14/17 08/14/17 08/15/17 08:00 16:00 00:00 Intake Total 680 ml Output Total 390 ml Balance 290 ml Result Diagram: 08/14/17 0320 08/14/17 0320 Imaging Last Impressions Head CT 08/10/171937 Signed Impressions: Service Date/Time: July 19:50 - CONCLUSION: Negative noncontrast head CT. Trung Martel MD Chest X-Ray 08/10/171937 Signed Impressions: Service Date/Time: July 19:44 - CONCLUSION: Suspected early/mild failure. Focal atelectasis or scarring left midlung as well. Trung Martel MD Neck CTA 08/10/17 0000 Signed Impressions: Service Date/Time: July 20:45 - CONCLUSION: Tortuous but nonstenotic carotid arteries. Trung Martel MD Head CTA 08/10/17 Signed Impressions: Service Date/Time: July 20:45 - CONCLUSION: 1. No acute vessel thrombosis. 2. Nonfilling of the left A1 segment that appears developmental. Patent anterior communicating artery and A2 and distal segments fill normally. 3. 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 Trung Martel MD Aorta CTA 08/10/17 Signed Impressions: Service Date/Time: July 20:51 - CONCLUSION: Type B aortic dissection. Unusual dissection flap with a prominent wind sock component of the thoracic aorta beginning at the level of the mid arch and extending distal almost to the level of the diaphragmatic hiatus. No leak or rupture demonstrated. Arch vessels and the ascending aorta and root are not involved. Trung Martel MD Abdomen X-Ray 08/10/17 0000 Signed Impressions: Service Date/Time: July 21:01 - CONCLUSION: No contraindication to MRI in the abdomen. Nonobstructive bowel gas pattern. Nasogastric tube is in the mid stomach. Trung Martel MD Objective Remarks HEENT/ Neuro: awake, alert, follows commands. EMILIANO 5/5 bilateral upper and lower extremities. slight facial droop. pupils equal and reactive. nc. at. mmm. Neck: No JVD Chest/Pulm: equal chest rise. nc o2. CVS: normal rate, regular rhythm. GI/abdomen: soft, nontender, nondistended, no guarding. Extremities: warm bilaterally, no edema, distal pulses 2+ LEs. good cap refill. A/P Assessment and Plan Assessment: 66yF with Acute type B aortic dissection, complicated by small right parietal CVA and acute hypoxic respiratory failure requiring mechanical ventilation. CT aortogram stable. plan for ASA today. given age and comorbidities, not a good full dose anticoagluation candidate, as well as CT chest not timed for pulmonary angiogram. will obtain 4 extremity dopplers and if negative, will not anticoagulate for ? small subsegmental PE. Acute metabolic encephalopathy - resolved. Agitated Delirium- resolved. Type B aortic dissection - stable. Hypertensive emergency - resolved. Acute hypoxic respiratory failure on mechanical ventilation - resolving. Systolic Congestive Heart Failure, EF 20% Elevated troponins, likely type II NSTEMI secondary to Demand Ischemia- resolved. Acute kidney injury- resolved. Plan: Neuro: frequent neuro checks. ASA today. stroke rehab, pt/ot/st. Cardiovascular: goal HR < 70, SBP < 120. carvedilol, hctz, po labetalol. d/c art line. Pulmonary: aggressive pulm toilet. PT, OT, ST, OOB. wean nc o2 as tolerated. GI/liver: formal swallow eval and advance diet per their recommendations. Renal/: adequate uop. Cr downtrending. home po lasix. d/c payne. ID: No indication for antibiotics at this time. Heme: Follow CBC Endocrine: Watch for hyperglycemia, SSI for glycemic control if needed. Prophylaxis: Pepcid/SCDs/subcutaneous heparin Janes Bennett MD Aug 14, 2017 08:43
[2017-08-14] MEDS ORDERED: HYDROmorphone HCL PF 2 MG/ML VIAL IV PUSH PRN (08:45)
[2017-08-14] MEDS: POTASSIUM CHLORIDE 10 MEQ CONTROLLED RELEASE TAB PO SCH (09:00)
[2017-08-14] MEDS: FAMOTIDINE 20 MG TAB PO SCH ×2 (09:00→20:25)
[2017-08-14] MEDS: SODIUM CHLORIDE 0.9% FLUSH 10 ML FLUSH IV FLUSH SCH ×2 (09:00→20:27)
[2017-08-14] MEDS: CARVEDILOL 12.5 MG TAB PO SCH ×3 (09:00→20:25)
[2017-08-14] MEDS: MULTIVITAMINS/MINERALS THERAPEUTIC TAB PO SCH (09:00)
[2017-08-14] MEDS: SPIRONOLACTONE 25 MG TAB PO SCH (09:00)
[2017-08-14] MEDS: HYDROCHLOROTHIAZIDE 25 MG TAB PO SCH (09:00)
[2017-08-14] MEDS: FERROUS SULFATE 325 MG (65 MG ELEMENTAL IRON) TAB PO SCH ×2 (09:00→17:54)
[2017-08-14] MEDS: FUROSEMIDE 40 MG TAB PO SCH ×2 (09:00→17:17)
--- NOTE | 2017-08-14 16:24 | RADRPT ---
EXAM DATE/TIME: 08/14/2017 15:45 [facility] COMPARISON: No previous studies available for comparison. INDICATIONS : Evaluate NG tube placement MEDICAL HISTORY : Hypertension. Congestive heart failure. Cardiovascular disease. SURGICAL HISTORY : None. ENCOUNTER: Subsequent ACUITY: 4 - 6 days PAIN SCORE: Non-responsive. LOCATION: Bilateral abdomen FINDINGS: A single AP view of the abdomen was obtained. Portiosn of the left-sided of the abdomen and pelvis we re cut of the exam. This demonstrates an unremarkable bowel gas pattern with a Dobbhoff type feeding tube with the tip projected over the mid stomach. CONCLUSION: Dobbhoff type feeding tube with tip projected over the mid stomach. Cristian Villar MD on August 14, 2017 at 16:20 Board Certified Radiologist. This report was verified electronically.
--- NOTE | 2017-08-14 19:14 | PD.CARD.PN ---
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, no CP or SOB Objective Medications Current Medications Medications (Trade) Dose Ordered Sig/James Route Start Time Stop Time Status Last Admin (NS Flush) 2 ml UNSCH PRN IV FLUSH 08/10/17 22:00 (NS Flush) 2 ml BID IV FLUSH 08/11/17 09:00 08/14/17 09:00 (Tylenol) 650 mg Q6H PRN PO 08/10/17 22:00 (Duoneb Neb) 1 ampule Q4HR NEB PRN INH 08/10/17 22:00 (Peridex 0.12% Liq) 15 ml BID@08,20 MT 08/11/17 08:00 08/14/17 08:00 (Heparin Inj) 5,000 units Q8H SQ 08/11/17 06:00 08/14/17 15:43 Miscellaneous Information 1 Q361D XX 08/10/17 22:00 08/10/17 22:00 (Chlorhexidine 2% Cloth) 3 pack Taper DAILY@04 TOP 08/11/17 04:00 08/07/18 03:59 08/14/17 04:00 (Chlorhexidine 2% Cloth) 3 pack UNSCH PRN TOP 08/10/17 22:00 (Norvasc) 10 mg DAILY PO 08/11/17 09:00 08/14/17 17:19 (Coreg) 25 mg BID PO 08/11/17 09:00 08/14/17 17:18 (Ferrous Sulfate) 325 mg BIDPC PO 08/11/17 09:00 08/11/17 17:11 (Hydrodiuril) 25 mg DAILY PO 08/11/17 09:00 08/13/17 08:24 (KCl) 20 meq DAILY PO 08/11/17 09:00 08/13/17 08:25 (Aldactone) 25 mg DAILY PO 08/11/17 09:00 08/13/17 08:27 (Theragran M Tab) 1 tab DAILY PO 08/11/17 09:00 08/11/17 09:39 (Trandate Inj) 20 mg Q15M PRN IV PUSH 08/11/17 08:45 (Apresoline Inj) 10 mg Q30M PRN IV PUSH 08/11/17 08:45 08/12/17 16:40 (Lasix) 40 mg DAILY PO 08/14/17 09:00 08/14/17 17:17 (Pepcid) 20 mg BID PO 08/14/17 09:00 (Roxicodone) 5 mg Q4H PRN PO 08/14/17 08:45 (Dilaudid Pf Inj) 0.5 mg Q4H PRN IV PUSH 08/14/17 08:45 (Aspirin) 325 mg DAILY PO 08/15/17 09:00 Vital Signs / I&O Vital Signs Date Time Temp Pulse Resp B/P (MAP) Pulse Ox O2 Delivery O2 Flow Rate FiO2 08/14/17 15:00 97.6 71 14 120/93 (102) 92 Arterial Line 08/14/17 15:00 71 08/14/17 11:00 97.8 63 14 114/76 (89) 95 08/14/17 11:00 63 08/14/17 07:50 98 Nasal Cannula 4 08/14/17 07:50 98 Nasal Cannula 4.00 08/14/17 07:40 Nasal Cannula 100 35 08/14/17 07:00 35 08/14/17 07:00 60 08/14/17 07:00 97.5 60 16 109/76 (87) 98 121/87 (98) 08/14/17 04:00 98.8 55 14 116/83 (94) 98 119/75 (90) 08/14/17 04:00 55 08/14/17 03:59 98 35 08/14/17 03:00 35 08/14/17 00:39 99 35 08/14/17 00:00 99.0 58 16 99 129/49 (75) 08/14/17 00:00 58 08/13/17 23:00 35 08/13/17 22:20 100 100 08/13/17 22:00 35 08/13/17 20:35 98 35 08/13/17 20:00 63 I/O 08/13/17 08/13/17 08/13/17 08/14/17 08/14/17 08/14/17 07:00 15:00 23:00 07:00 15:00 23:00 Intake Total 589 ml 52 ml 544 ml 680 ml Output Total 825 ml 300.0 ml 390 ml Balance -236 ml 52 ml 244.0 ml 290 ml Intake Oral 0 ml 0 ml IV Total 302 ml 52 ml 52 ml 354 ml Tube Feeding 287 ml 492 ml 326 ml Output Urine Total 825 ml 285 ml 390 ml Gastric Drainage Total 10 ml Tube Feeding Residual Discard 5.0 ml # Bowel Movements 0 0 0 Physical Exam GENERAL: Sitting in the chair, difficulty swallowing SKIN: Warm and dry. HEAD: Normocephalic. EYES: No scleral icterus. No injection or drainage. NECK: Supple, trachea midline. No JVD or lymphadenopathy. CARDIOVASCULAR: Regular rate and rhythm without murmurs, gallops, or rubs. RESPIRATORY: Breath sounds equal bilaterally. No accessory muscle use. GASTROINTESTINAL: Abdomen soft, non-tender, nondistended. MUSCULOSKELETAL: No cyanosis, or edema. Laboratory Laboratory Tests Test 08/14/17 03:20 White Blood Count 12.9 TH/MM3 Red Blood Count 4.59 MIL/MM3 Hemoglobin 12.3 GM/DL Hematocrit 36.8 % Mean Corpuscular Volume 80.2 FL Mean Corpuscular Hemoglobin 26.8 PG Mean Corpuscular Hemoglobin Concent 33.4 % Red Cell Distribution Width 16.7 % Platelet Count 165 TH/MM3 Mean Platelet Volume 10.6 FL Blood Urea Nitrogen 22 MG/DL Creatinine 0.83 MG/DL Random Glucose 122 MG/DL Calcium Level 8.9 MG/DL Sodium Level 141 MEQ/L Potassium Level 3.5 MEQ/L Chloride Level 105 MEQ/L Carbon Dioxide Level 29.1 MEQ/L Anion Gap 7 MEQ/L Estimat Glomerular Filtration Rate 83 ML/MIN Imaging Last 24 hours Impressions Abdomen X-Ray 08/14/17 0000 Signed Impressions: Service Date/Time: Monday, August 14, 2017 15:45 - CONCLUSION: Dobbhoff type feeding tube with tip projected over the mid stomach. Cristian Villar MD Assessment and Plan Problem List: (1) Acute CVA (cerebrovascular accident) ICD Codes: I63.9 - Cerebral infarction, unspecified Status: Acute (2) Acute thoracic aortic dissection ICD Codes: I71.01 - Dissection of thoracic aorta Status: Acute (3) Cardiomyopathy ICD Codes: I42.9 - Cardiomyopathy, unspecified (4) Hypertension ICD Codes: I10 - Essential (primary) hypertension Status: Chronic (5) Chronic kidney disease ICD Codes: N18.9 - Chronic kidney disease, unspecified Status: Chronic Assessment and Plan Neuro status improving. Extubated without difficulty. Type B aortic dissection will be treated medically. BP controlled. Neurology following. Continue ICU care. Continue tx for CHF. Kvng Mae MD Aug 14, 2017 19:14
--- NOTE | 2017-08-14 22:28 | RADRPT ---
EXAM DATE/TIME: 08/14/2017 18:13 [facility] COMPARISON: No previous studies available for comparison. INDICATIONS : Bilateral leg swelling. MEDICAL HISTORY : Congestive heart failure. Hypertension. Thyroid disease. Ulcer. Arthritis. Claustrophobia. SURGICAL HISTORY : None. ENCOUNTER: Initial ACUITY: 1 day PAIN SCORE: 2/10 LOCATION: Bilateral legs. TECHNIQUE: Venous ultrasound of the left and right leg was performed from the inguinal ligament to the proximal calf. Real-time, color Doppler and spectral tracing, compression and augmentation techniques were us ed. FINDINGS: RIGHT LEG: There is normal compressibility of the deep venous system from the inguinal region to the proximal ca lf. No echogenic clot is seen in the lumen of the common femoral, femoral, popliteal, and posterior tibial veins. There is a normal response of the venous system to proximal and distal augmentation an d respiration. LEFT LEG: There is normal compressibility of the deep venous system from the inguinal region to the proximal ca lf. No echogenic clot is seen in the lumen of the common femoral, femoral, popliteal, and posterior tibial veins. There is a normal response of the venous system to proximal and distal augmentation an d respiration. CONCLUSION: No evidence of deep venous thrombosis. Aayush Krueger MD on August 14, 2017 at 22:25 Board Certified Radiologist. This report was verified electronically.
--- NOTE | 2017-08-14 22:39 | RADRPT ---
EXAM DATE/TIME: 08/14/2017 18:16 [facility] COMPARISON: No previous studies available for comparison. INDICATIONS : Bilateral arm swelling. MEDICAL HISTORY : Hypertension. Congestive heart failure. Thyroid disease. Ulcer. Arthritis. Claustrophobia. SURGICAL HISTORY : None. ENCOUNTER: Initial ACUITY: 1 day PAIN SCORE: 2/10 LOCATION: Bilateral arms. FINDINGS: RIGHT UPPER EXTREMITY: Occlusive thrombus is noted within the right subclavian, cephalic, axillary and basilic veins. LEFT UPPER EXTREMITY: Thrombus is noted within the left basilic vein at the antecubital fossa. CONCLUSION: Occlusive thrombus within the right subclavian, cephalic, axillary and basilic veins. Thrombus is also noted within the left basilic vein at the antecubital fossa. Aayush Krueger MD on August 14, 2017 at 22:35 Board Certified Radiologist. This report was verified electronically.
[2017-08-15] VITALS (9 sets, daily range): BP systolic 116–152; BP diastolic 79–108; PULSE 66–89; RESP 14–20; TEMP 97.7–98.7; O2SAT 91–100
[2017-08-15 00:28] LABS: BICARBONATE 31.5 MEQ/L (21.0-32.0); CALCIUM 8.7 MG/DL (8.5-10.1); CREATININE 0.85 MG/DL (0.50-1.00)
[2017-08-15] MEDS: POTASSIUM CHLOR 10 MEQ PREMIX 100 ML IV SCH ×3 (00:52→05:22)
[2017-08-15] MEDS: CHLORHEXIDINE GLUCONATE 2 % 1 PACK (2 CLOTHS) TOP SCH (03:36)
[2017-08-15] MEDS: HEPARIN SODIUM - SQ 10,000 UNITS/ML VIAL SQ SCH (05:22)
[2017-08-15 05:37] LABS: CALCIUM 8.8 MG/DL (8.5-10.1); CREATININE 0.85 MG/DL (0.50-1.00)
[2017-08-15 06:01] LABS: HEMATOCRIT 36.3 % (35.0-46.0); HEMOGLOBIN 12.1 GM/DL (11.6-15.3); MEAN CELL VOLUME 80.2 FL (80.0-100.0); MEAN CORPUSCULAR HEMOGLOBIN 26.8 PG (27.0-34.0); MEAN CORPUSCULAR HGB CONC 33.4 % (32.0-36.0); MEAN PLATELET VOLUME 10.3 FL (7.0-11.0); PLATELET COUNT 157 TH/MM3 (150-450); RED BLOOD COUNT 4.53 MIL/MM3 (4.00-5.30); RED CELL DISTRIBUTION WIDTH 17.4 % (11.6-17.2); WHITE BLOOD COUNT 14.4 TH/MM3 (4.0-11.0)
[2017-08-15] MEDS: CHLORHEXIDINE 0.12% (ORAL KIT) 15 ML CUP MT SCH ×2 (08:00→20:00)
--- NOTE | 2017-08-15 08:42 | HHI.CCPN ---
Subjective Remarks/Hospital Course Hospital Course: 66-year-old female presented with sudden onset left facial droop and dysarthria that began at 645 this evening 1 hour prior to presentation. Patient brought in by by her family. Patient had no complaints of headache, extremity weakness , chest pain, shortness of breath. Stroke alert was called. Patient underwent head CT which was negative for bleed. Subsequently on returning from CAT scan patient developed shortness of breath with her blood pressure going up to 240s systolic. She was emergently intubated and placed on mechanical ventilation and sedated with propofol. She was also started on labetalol drip to control her blood pressure. CTA chest revealed type B aortic dissection involving thoracic aorta up to the diaphragm. Vascular surgery was consulted and patient was evaluated by Dr. Duran in the ER. Patient was accepted for admission by critical care medicine service. When I evaluated the patient she was sedated with propofol, orally intubated on mechanical ventilation. History was obtained by reviewing records and discussion with family members as well as ER physician. Per family patient was admitted in June 2017 at [place] for congestive heart failure. Subjective: 08/11: remains intubated. Cr trending down. BP and HR under good control. still need to obtain good neuro exam- sedated while intubated and controlling BP. distal pulses +. 08/12: still intubated. becomes agitated on sedation vacation, but moves all extremities. MRI planned for today. distal pulses +, uop adequate. Cr improving. off labetalol drip this morning. 08/13: following commands. bp under control. off labetalol infusion. CTA planned for this evening after steroid pre-treatment for contrast allergy. 08/14: following commands. passed SBT. extubated successfully. repeat CTA without evidence of worsening aortic dissection, but did mention small subsegmental pulmonary emboli, though contrast not timed specifically for pulmonary angiogram. 08/15: failed swallow study yesterday. upper extremity dopplers + for left subclavian DVT. DHT placed. otherwise doing well. ready for placement in inpatient rehab. denies complaints. ROS negative. Objective Vital Signs Date Time Temp Pulse Resp B/P (MAP) Pulse Ox O2 Delivery O2 Flow Rate FiO2 08/15/17 07:58 94 21 08/15/17 07:57 Nasal Cannula 1.00 08/15/17 03:00 98.7 89 16 118/79 (92) Intake and Output 08/15/17 08/15/17 08/16/17 08:00 16:00 00:00 Intake Total 568 ml Output Total 1300 ml Balance -732 ml Result Diagram: 08/15/17 0336 08/15/17 0336 Imaging Last Impressions Head CT 08/10/171937 Signed Impressions: Service Date/Time: July 19:50 - CONCLUSION: Negative noncontrast head CT. Trung Martel MD Chest X-Ray 08/10/171937 Signed Impressions: Service Date/Time: July 19:44 - CONCLUSION: Suspected early/mild failure. Focal atelectasis or scarring left midlung as well. Trung Martel MD Neck CTA 08/10/17 0000 Signed Impressions: Service Date/Time: July 20:45 - CONCLUSION: Tortuous but nonstenotic carotid arteries. Trung Martel MD Head CTA 08/10/17 0000 Signed Impressions: Service Date/Time: July 20:45 - CONCLUSION: 1. No acute vessel thrombosis. 2. Nonfilling of the left A1 segment that appears developmental. Patent anterior communicating artery and A2 and distal segments fill normally. 3. 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 Trung Martel MD Aorta CTA 08/10/17 0000 Signed Impressions: Service Date/Time: July 20:51 - CONCLUSION: Type B aortic dissection. Unusual dissection flap with a prominent wind sock component of the thoracic aorta beginning at the level of the mid arch and extending distal almost to the level of the diaphragmatic hiatus. No leak or rupture demonstrated. Arch vessels and the ascending aorta and root are not involved. Trung Martel MD Abdomen X-Ray 08/10/17 0000 Signed Impressions: Service Date/Time: July 21:01 - CONCLUSION: No contraindication to MRI in the abdomen. Nonobstructive bowel gas pattern. Nasogastric tube is in the mid stomach. Trung Martel MD Objective Remarks HEENT/ Neuro: awake, alert, follows commands. EMILIANO 5/5 bilateral upper and lower extremities. slight facial droop. pupils equal and reactive. nc. at. mmm. Neck: No JVD Chest/Pulm: equal chest rise. nc o2. CVS: normal rate, regular rhythm. GI/abdomen: soft, nontender, nondistended, no guarding. Extremities: warm bilaterally, no edema, distal pulses 2+ LEs. good cap refill. A/P Assessment and Plan Assessment: 66yF with ?Acute type B aortic dissection, complicated by small right parietal CVA and acute hypoxic respiratory failure requiring mechanical ventilation. CT aortogram stable. plan for ASA today. will anticoagulate for right subclavian DVT. Acute metabolic encephalopathy - resolved. Agitated Delirium- resolved. Type B aortic dissection - stable. Hypertensive emergency - resolved. Acute hypoxic respiratory failure on mechanical ventilation - resolving. Systolic Congestive Heart Failure, EF 20% Elevated troponins, likely type II NSTEMI secondary to Demand Ischemia- resolved. Acute kidney injury- resolved. Acute CVA Plan: Neuro: frequent neuro checks. ASA. stroke rehab, pt/ot/st. does not need statin : lipid panel at goal. Cardiovascular: goal HR < 70, SBP < 120. carvedilol, hctz, po labetalol. Pulmonary: aggressive pulm toilet. PT, OT, ST, OOB. wean nc o2 as tolerated. GI/liver: video swallow today. DHT and tube feeds. Renal/: adequate uop. Cr downtrending. home po lasix. ID: No indication for antibiotics at this time. Heme: Follow CBC. anticoagulate with lovenox for upper extremity dvt. Endocrine: Watch for hyperglycemia, SSI for glycemic control if needed. Prophylaxis: Pepcid/SCDs/full dose lovenox. transfer out of ICU. stable for rehab. Janes Bennett MD Aug 15, 2017 08:42
[2017-08-15] MEDS: POTASSIUM CHLORIDE 10 MEQ CONTROLLED RELEASE TAB PO SCH (09:00)
[2017-08-15] MEDS: HYDROCHLOROTHIAZIDE 25 MG TAB PO SCH (09:00)
[2017-08-15] MEDS: FERROUS SULFATE 325 MG (65 MG ELEMENTAL IRON) TAB PO SCH ×2 (09:00→18:00)
[2017-08-15] MEDS: SPIRONOLACTONE 25 MG TAB PO SCH (09:00)
--- NOTE | 2017-08-15 09:09 | RADRPT ---
EXAM DATE/TIME: 08/15/2017 08:28 [facility] COMPARISON: CHEST SINGLE AP, August 10, 2017, 20:24. INDICATIONS : Shortness of breath. MEDICAL HISTORY : Hypertension. Congestive heart failure. Thyroid disease. Ulcer. Arthritis.Claustrophobia. SURGICAL HISTORY : None. ENCOUNTER: Subsequent ACUITY: 1 day PAIN SCORE: 0/10 LOCATION: Bilateral chest FINDINGS: Endotracheal tube apparently has been removed. Dobbhoff-type nasogastric tube remains in the midline terminating the stomach. There is left ventricular cardiomegaly. Vascularity is distinct. Minimal res idual atelectasis noted in the left base. CONCLUSION: Improved CHF vascular congestion. Mild residual atelectasis left base. ET tube removed. Jayjay Noble MD on August 15, 2017 at 9:05 Board Certified Radiologist. This report was verified electronically.
--- NOTE | 2017-08-15 09:15 | RADRPT ---
EXAM DATE/TIME: 08/15/2017 08:30 [facility] COMPARISON: ABDOMEN SINGLE VIEW, August 14, 2017, 15:45. INDICATIONS : Dobbhoff feeding tube MEDICAL HISTORY : Hypertension. Congestive heart failure. Thyroid disease. Ulcer. Arthritis.Claustrophobia. SURGICAL HISTORY : None. ENCOUNTER: Subsequent ACUITY: 1 day PAIN SCORE: 0/10 LOCATION: abdomen FINDINGS: Supine view of the abdomen was performed. The abdominal bowel gas pattern is normal. No abnormal ma sses, calcifications, or organomegaly is seen. The osseous structures are unremarkable. Dobbhoff fee ding tube passes to the midline of the chest and marker terminates in the fundus of the stomach. CONCLUSION: Dobbhoff feeding tube terminates in the fundus of stomach Jayjay Noble MD on August 15, 2017 at 9:11 Board Certified Radiologist. This report was verified electronically.
[2017-08-15] MEDS ORDERED: POTASSIUM CHLORIDE 25 MEQ EFFERVESCENT TAB PO ONE (09:45)
--- NOTE | 2017-08-15 11:41 | RADRPT ---
EXAM DATE/TIME: 08/15/2017 00:00 [facility] COMPARISON: No previous studies available for comparison. INDICATIONS : Dysphagia. FLUORO TIME: 2.1 minutes IMAGE COUNT: 0 CONTRAST: Dose as prescribed by speech pathologist. MEDICAL HISTORY : Stroke, aortic tear.Hypertension. Cardiovascular disease Congestive heart failure. SURGICAL HISTORY : None. ENCOUNTER: Initial ACUITY: 4 - 6 days PAIN SCORE: 0/10 LOCATION: Esophagus. FINDINGS: A modified barium swallow was performed with speech pathology. Patient was given a variety of liquids to swallow. Cervical esophagus is normal in motility and structure. For a full detailed report, see report by the speech pathologist. CONCLUSION: Negative examination. Please see speech pathology report. Jayjay Noble MD on August 15, 2017 at 11:38 Board Certified Radiologist. This report was verified electronically.
[2017-08-15] MEDS: FAMOTIDINE 20 MG TAB PO SCH ×2 (12:03→20:25)
[2017-08-15] MEDS: FUROSEMIDE 40 MG TAB PO SCH (12:04)
[2017-08-15] MEDS: CARVEDILOL 12.5 MG TAB PO SCH ×2 (12:04→20:31)
[2017-08-15] MEDS: MULTIVITAMINS/MINERALS THERAPEUTIC TAB PO SCH (12:04)
[2017-08-15] MEDS: ASPIRIN 325 MG TAB PO SCH (12:05)
[2017-08-15] MEDS: SODIUM CHLORIDE 0.9% FLUSH 10 ML FLUSH IV FLUSH SCH ×2 (12:09→19:41)
[2017-08-15] MEDS: ENOXAPARIN SODIUM 120 MG/0.8 ML SYRINGE SQ SCH (12:10)
--- NOTE | 2017-08-15 13:31 | PD.CARD.PN ---
Subjective Subjective Remarks No CP or SOB, asking questions Objective Medications Current Medications Medications (Trade) Dose Ordered Sig/James Route Start Time Stop Time Status Last Admin (NS Flush) 2 ml UNSCH PRN IV FLUSH 08/10/17 22:00 (NS Flush) 2 ml BID IV FLUSH 08/11/17 09:00 08/15/17 12:09 (Tylenol) 650 mg Q6H PRN PO 08/10/17 22:00 (Duoneb Neb) 1 ampule Q4HR NEB PRN INH 08/10/17 22:00 (Peridex 0.12% Liq) 15 ml BID@08,20 MT 08/11/17 08:00 08/14/17 20:27 Miscellaneous Information 1 Q361D XX 08/10/17 22:00 08/10/17 22:00 (Chlorhexidine 2% Cloth) 3 pack Taper DAILY@04 TOP 08/11/17 04:00 08/07/18 03:59 08/15/17 03:36 (Chlorhexidine 2% Cloth) 3 pack UNSCH PRN TOP 08/10/17 22:00 (Norvasc) 10 mg DAILY PO 08/11/17 09:00 08/15/17 12:04 (Coreg) 25 mg BID PO 08/11/17 09:00 08/15/17 12:04 (Ferrous Sulfate) 325 mg BIDPC PO 08/11/17 09:00 08/11/17 17:11 (Hydrodiuril) 25 mg DAILY PO 08/11/17 09:00 08/13/17 08:24 (KCl) 20 meq DAILY PO 08/11/17 09:00 08/13/17 08:25 (Aldactone) 25 mg DAILY PO 08/11/17 09:00 08/13/17 08:27 (Theragran M Tab) 1 tab DAILY PO 08/11/17 09:00 08/15/17 12:04 (Trandate Inj) 20 mg Q15M PRN IV PUSH 08/11/17 08:45 (Apresoline Inj) 10 mg Q30M PRN IV PUSH 08/11/17 08:45 08/12/17 16:40 (Lasix) 40 mg DAILY PO 08/14/17 09:00 08/15/17 12:04 (Pepcid) 20 mg BID PO 08/14/17 09:00 08/15/17 12:03 (Roxicodone) 5 mg Q4H PRN PO 08/14/17 08:45 (Dilaudid Pf Inj) 0.5 mg Q4H PRN IV PUSH 08/14/17 08:45 (Aspirin) 325 mg DAILY PO 08/15/17 09:00 08/15/17 12:05 (Lovenox Inj) 110 mg Q24H SQ 08/15/17 10:00 08/15/17 12:10 (K-Lyte Cl Eff) 25 meq DAILY PO 08/16/17 09:00 Vital Signs / I&O Vital Signs Date Time Temp Pulse Resp B/P (MAP) Pulse Ox O2 Delivery O2 Flow Rate FiO2 08/15/17 11:00 97.9 69 14 142/99 (113) 95 08/15/17 11:00 66 08/15/17 07:58 94 21 08/15/17 07:57 97 Nasal Cannula 1.00 08/15/17 07:00 78 08/15/17 07:00 98.1 78 16 121/81 (94) 91 08/15/17 03:00 98.7 89 16 118/79 (92) 97 08/15/17 03:00 73 08/14/17 23:00 70 08/14/17 23:00 98.9 80 16 117/87 (97) 97 08/14/17 20:18 98 Nasal Cannula 2.00 08/14/17 19:00 99.0 78 18 125/91 (102) 97 08/14/17 19:00 78 08/14/17 15:00 97.6 71 14 120/93 (102) 92 Arterial Line 08/14/17 15:00 71 I/O 08/14/17 08/14/17 08/14/17 08/15/17 08/15/17 08/15/17 07:00 15:00 23:00 07:00 15:00 23:00 Intake Total 680 ml 40 ml 568 ml Output Total 390 ml 965 ml 1300 ml Balance 290 ml -925 ml -732 ml Intake Oral 0 ml 0 ml IV Total 354 ml 200 ml Tube Feeding 326 ml 40 ml 368 ml Output Urine Total 390 ml 965 ml 1300 ml # Bowel Movements 0 0 0 Physical Exam GENERAL: In NAD. SKIN: Warm and dry. HEAD: Normocephalic. EYES: No scleral icterus. No injection or drainage. NECK: Supple, trachea midline. No JVD or lymphadenopathy. CARDIOVASCULAR: Regular rate and rhythm without murmurs, gallops, or rubs. RESPIRATORY: Breath sounds equal bilaterally. No accessory muscle use. GASTROINTESTINAL: Abdomen soft, non-tender, nondistended. MUSCULOSKELETAL: No cyanosis, or edema. Laboratory Laboratory Tests Test 08/14/17 23:41 08/15/17 03:36 Blood Urea Nitrogen 20 MG/DL 18 MG/DL Creatinine 0.85 MG/DL 0.85 MG/DL Random Glucose 82 MG/DL 93 MG/DL Calcium Level 8.7 MG/DL 8.8 MG/DL Sodium Level 144 MEQ/L 143 MEQ/L Potassium Level 3.3 MEQ/L 3.3 MEQ/L Chloride Level 105 MEQ/L 104 MEQ/L Carbon Dioxide Level 31.5 MEQ/L 31.0 MEQ/L Anion Gap 8 MEQ/L 8 MEQ/L Estimat Glomerular Filtration Rate 81 ML/MIN 81 ML/MIN White Blood Count 14.4 TH/MM3 Red Blood Count 4.53 MIL/MM3 Hemoglobin 12.1 GM/DL Hematocrit 36.3 % Mean Corpuscular Volume 80.2 FL Mean Corpuscular Hemoglobin 26.8 PG Mean Corpuscular Hemoglobin Concent 33.4 % Red Cell Distribution Width 17.4 % Platelet Count 157 TH/MM3 Mean Platelet Volume 10.3 FL Hematology Comments Imaging Last 24 hours Impressions Modified Barium Swallow 08/15/17 0000 Signed Impressions: Service Date/Time: Tuesday, August 15, 2017 00:00 - CONCLUSION: Negative examination. Please see speech pathology report. Jayjay Noble MD Chest X-Ray 08/15/17 0000 Signed Impressions: Service Date/Time: Tuesday, August 15, 2017 08:28 - CONCLUSION: Improved CHF vascular congestion. Mild residual atelectasis left base. ET tube removed. Jayjay Noble MD Abdomen X-Ray 08/15/17 0000 Signed Impressions: Service Date/Time: Tuesday, August 15, 2017 08:30 - CONCLUSION: Dobbhoff feeding tube terminates in the fundus of stomach Jayjay Noble MD Assessment and Plan Problem List: (1) Acute CVA (cerebrovascular accident) ICD Codes: I63.9 - Cerebral infarction, unspecified Status: Acute (2) Acute thoracic aortic dissection ICD Codes: I71.01 - Dissection of thoracic aorta Status: Acute (3) Cardiomyopathy ICD Codes: I42.9 - Cardiomyopathy, unspecified (4) Hypertension ICD Codes: I10 - Essential (primary) hypertension Status: Chronic (5) Chronic kidney disease ICD Codes: N18.9 - Chronic kidney disease, unspecified Status: Chronic Assessment and Plan Neuro status improving. Still unable to swallow. Continue PT/OT. Type B aortic dissection will be treated medically. BP controlled. Neurology following. Continue ICU care. Continue tx for CHF. No new cardiac issues. Kvng Mae MD Aug 15, 2017 13:31
--- NOTE | 2017-08-15 20:30 | HHI.PR ---
Review/Management Daily Summary 08/13 intubated but follows all simple commands even able to count fingers giaan (mouth words correctly) moves 4 limbs well mr findings noted she will benefit of antiplatelet tx (at least) if vascular dx/aortic aneurysm dissection allows this continue to monitor 08/15 awake and follows commands well left hemiparesis, arm/face predominantly 3-4/5 on full dose lovenox may benefit of statins as well to reduce ldl to below 60 Subjective Subjective Comments No acute events reported No headache Active Medications Current Medications Medications (Trade) Dose Ordered Sig/James Route Start Time Stop Time Status Last Admin (NS Flush) 2 ml UNSCH PRN IV FLUSH 08/10/17 22:00 (NS Flush) 2 ml BID IV FLUSH 08/11/17 09:00 08/15/17 19:41 (Tylenol) 650 mg Q6H PRN PO 08/10/17 22:00 (Duoneb Neb) 1 ampule Q4HR NEB PRN INH 08/10/17 22:00 (Peridex 0.12% Liq) 15 ml BID@08,20 MT 08/11/17 08:00 08/14/17 20:27 Miscellaneous Information 1 Q361D XX 08/10/17 22:00 08/10/17 22:00 (Chlorhexidine 2% Cloth) 3 pack Taper DAILY@04 TOP 08/11/17 04:00 08/07/18 03:59 08/15/17 03:36 (Chlorhexidine 2% Cloth) 3 pack UNSCH PRN TOP 08/10/17 22:00 (Norvasc) 10 mg DAILY PO 08/11/17 09:00 08/15/17 12:04 (Coreg) 25 mg BID PO 08/11/17 09:00 08/15/17 12:04 (Ferrous Sulfate) 325 mg BIDPC PO 08/11/17 09:00 08/11/17 17:11 (Hydrodiuril) 25 mg DAILY PO 08/11/17 09:00 08/13/17 08:24 (Aldactone) 25 mg DAILY PO 08/11/17 09:00 08/13/17 08:27 (Theragran M Tab) 1 tab DAILY PO 08/11/17 09:00 08/15/17 12:04 (Trandate Inj) 20 mg Q15M PRN IV PUSH 08/11/17 08:45 (Apresoline Inj) 10 mg Q30M PRN IV PUSH 08/11/17 08:45 08/12/17 16:40 (Lasix) 40 mg DAILY PO 08/14/17 09:00 08/15/17 12:04 (Pepcid) 20 mg BID PO 08/14/17 09:00 08/15/17 12:03 (Roxicodone) 5 mg Q4H PRN PO 08/14/17 08:45 (Dilaudid Pf Inj) 0.5 mg Q4H PRN IV PUSH 08/14/17 08:45 (Aspirin) 325 mg DAILY PO 08/15/17 09:00 08/15/17 12:05 (Lovenox Inj) 110 mg Q24H SQ 08/15/17 10:00 08/15/17 12:10 (K-Lyte Cl Eff) 25 meq DAILY PO 08/16/17 09:00 Allergies Allergies Coded Allergies iodine (Unverified Allergy, Severe, sneezing, chest tightness, 08/10/17) potassium iodide (Unverified Allergy, Severe, sneezing, chest tightness, ) povidone-iodine (Unverified Allergy, Severe, sneezing, chest tightness, ) sodium iodide (Unverified Allergy, Severe, sneezing, chest tightness, 08/10/17) sodium iodide (Unverified Allergy, Severe, sneezing, chest tightness, 08/10/17) sulfamethoxazole (Unverified Allergy, Intermediate, abdominal pain, 08/10/17) trimethoprim (Unverified Allergy, Intermediate, abdominal pain, 08/10/17) Exam I&O / VS 08/15/17 08/15/17 08/16/17 15:00 23:00 07:00 Intake Total 614 ml Output Total 1200 ml Balance -586 ml Intake Oral 0 ml IV Total 300 ml Tube Feeding 314 ml Output Urine Total 1200 ml # Bowel Movements 0 Vital Signs Date Time Temp Pulse Resp B/P (MAP) Pulse Ox O2 Delivery O2 Flow Rate FiO2 08/15/17 19:00 98.4 77 17 152/108 (123) 96 08/15/17 15:00 97.7 70 15 116/80 (92) 95 08/15/17 15:00 70 08/15/17 11:00 97.9 69 14 142/99 (113) 95 08/15/17 11:00 66 08/15/17 07:58 94 21 08/15/17 07:57 97 Nasal Cannula 1.00 08/15/17 07:00 78 08/15/17 07:00 98.1 78 16 121/81 (94) 91 08/15/17 03:00 98.7 89 16 118/79 (92) 97 08/15/17 03:00 73 08/14/17 23:00 70 08/14/17 23:00 98.9 80 16 117/87 (97) 97 Objective Micro and Labs Laboratory Tests Test 08/14/17 23:41 08/15/17 03:36 Blood Urea Nitrogen 20 18 Creatinine 0.85 0.85 Random Glucose 82 93 Calcium Level 8.7 8.8 Sodium Level 144 143 Potassium Level 3.3 3.3 Chloride Level 105 104 Carbon Dioxide Level 31.5 31.0 Anion Gap 8 8 Estimat Glomerular Filtration Rate 81 81 White Blood Count 14.4 Red Blood Count 4.53 Hemoglobin 12.1 Hematocrit 36.3 Mean Corpuscular Volume 80.2 Mean Corpuscular Hemoglobin 26.8 Mean Corpuscular Hemoglobin Concent 33.4 Red Cell Distribution Width 17.4 Platelet Count 157 Mean Platelet Volume 10.3 Hematology Comments Date/Time Source Procedure Growth Status 08/13/17 07:45 Sputum Endotracheal Gram Stain - Final Resulted 08/13/17 07:45 Sputum Endotracheal Sputum Culture - Preliminary MODERATE GROWTH NORMAL RESPIRATORY FL... Resulted 08/10/17 21:05 Urine Clean Catch Urine Culture - Final NO GROWTH IN 48 HOURS. Complete Cleve Enamorado MD Aug 15, 2017 20:30
[2017-08-16] VITALS: BP 132/98; PULSE 74; PULSE 75; RESP 19; TEMP 98.7; O2SAT 94
[2017-08-16] MEDS: CHLORHEXIDINE GLUCONATE 2 % 1 PACK (2 CLOTHS) TOP SCH ×2 (03:24→03:34)
[2017-08-16 04:00] VITALS: BP 133/96; PULSE 75; RESP 18; TEMP 98.4; O2SAT 97
[2017-08-16] MEDS: FAMOTIDINE 20 MG TAB PO SCH (07:57)
[2017-08-16] MEDS: MULTIVITAMINS/MINERALS THERAPEUTIC TAB PO SCH (07:57)
[2017-08-16] MEDS: FERROUS SULFATE 325 MG (65 MG ELEMENTAL IRON) TAB PO SCH (07:57)
[2017-08-16] MEDS: CARVEDILOL 12.5 MG TAB PO SCH (07:57)
[2017-08-16] MEDS: CHLORHEXIDINE 0.12% (ORAL KIT) 15 ML CUP MT SCH (07:57)
[2017-08-16] MEDS: ASPIRIN 325 MG TAB PO SCH (07:57)
[2017-08-16] MEDS: FUROSEMIDE 40 MG TAB PO SCH (07:58)
[2017-08-16] MEDS: SPIRONOLACTONE 25 MG TAB PO SCH (07:58)
[2017-08-16] MEDS: SODIUM CHLORIDE 0.9% FLUSH 10 ML FLUSH IV FLUSH SCH (07:58)
[2017-08-16] MEDS: HYDROCHLOROTHIAZIDE 25 MG TAB PO SCH (07:58)
[2017-08-16 08:00] VITALS: PULSE 82
[2017-08-16 08:05] VITALS: BP 140/95; PULSE 77; RESP 17; TEMP 98.5; O2SAT 94
[2017-08-16 08:24] LABS: HEMATOCRIT 37.5 % (35.0-46.0); HEMOGLOBIN 12.4 GM/DL (11.6-15.3); MEAN CELL VOLUME 81.5 FL (80.0-100.0); MEAN CORPUSCULAR HGB CONC 33.2 % (32.0-36.0); MEAN PLATELET VOLUME 10.1 FL (7.0-11.0); PLATELET COUNT 190 TH/MM3 (150-450); RED CELL DISTRIBUTION WIDTH 17.3 % (11.6-17.2); WHITE BLOOD COUNT 8.1 TH/MM3 (4.0-11.0)
[2017-08-16 08:28] LABS: BICARBONATE 31.5 MEQ/L (21.0-32.0); CALCIUM 8.7 MG/DL (8.5-10.1); CREATININE 0.77 MG/DL (0.50-1.00)
[2017-08-16] MEDS ORDERED: POTASSIUM CHLORIDE 25 MEQ EFFERVESCENT TAB PO SCH (09:00)
[2017-08-16] MEDS: ENOXAPARIN SODIUM 120 MG/0.8 ML SYRINGE SQ SCH (11:09)
[2017-08-16 11:25] VITALS: BP 128/93; PULSE 78; RESP 17; TEMP 98; O2SAT 96
[2017-08-16 12:00] VITALS: PULSE 71
[2017-08-16] MEDS ORDERED: KLYTECL PO (13:35)
[2017-08-16] MEDS ORDERED: ENOX120P SQ (13:35)
[2017-08-16] MEDS ORDERED: OXYC-392 PO (13:35)
[2017-08-16] MEDS ORDERED: ASPI81TA23 PO (13:35)
[2017-08-16] MEDS ORDERED: WARF-20 PO (13:40)
[2017-08-16] MEDS ORDERED: SIMV10TA PO (13:56)
--- NOTE | 2017-08-16 13:59 | HHI.DS ---
Discharge Summary Admission Date Aug 10, 2017 at 21:23 Discharge Date: Aug 16, 2017 Admitting Diagnosis Acute Aortic Dissection, Acute CVA (1) Pulmonary embolism ICD Code: I26.99 - Other pulmonary embolism without acute cor pulmonale (2) Acute CVA (cerebrovascular accident) ICD Code: I63.9 - Cerebral infarction, unspecified Status: Acute (3) Cardiomyopathy ICD Code: I42.9 - Cardiomyopathy, unspecified Procedures Intubation, extubation. Otherwise No invasive procedures. Brief History - From Admission History of Present Illness HPI 66-year-old female presented with sudden onset left facial droop and dysarthria that began at 645 this evening 1 hour prior to presentation. Patient brought in by by her family. Patient had no complaints of headache, extremity weakness , chest pain, shortness of breath. Stroke alert was called. Patient underwent head CT which was negative for bleed. Subsequently on returning from CAT scan patient developed shortness of breath with her blood pressure going up to 240s systolic. She was emergently intubated and placed on mechanical ventilation and sedated with propofol. She was also started on labetalol drip to control her blood pressure. CTA chest revealed type B aortic dissection involving thoracic aorta up to the diaphragm. Vascular surgery was consulted and patient was evaluated by Dr. Duran in the ER. Patient was accepted for admission by critical care medicine service. When I evaluated the patient she was sedated with propofol, orally intubated on mechanical ventilation. History was obtained by reviewing records and discussion with family members as well as ER physician. Per family patient was admitted in June 2017 at [facility] for congestive heart failure. [facility] Past Medical History Narrative Medical Past medical history reviewed Arthritis: Yes (minor) Heart Rhythm Problems: Yes (arrhythmia) Cardiovascular Problems: Yes Congestive Heart Failure: Yes Endocrine: Yes Genitourinary: No Hypertension: Yes Immune Disorder: No Musculoskeletal: Yes Neurologic: No Psychiatric: No Reproductive: No Respiratory: Yes (bronchitis, sinusitis) Thyroid Disease: Yes (watching) Ulcer: Yes Menopausal: Yes Social History Alcohol Use: No Tobacco Use: No Substance Use: No Allergies-Medications (Allergen,Severity, Reaction): Coded Allergies: iodine (Unverified Allergy, Severe, sneezing, chest tightness, 08/10/17) potassium iodide (Unverified Allergy, Severe, sneezing, chest tightness, ) povidone-iodine (Unverified Allergy, Severe, sneezing, chest tightness, ) sodium iodide (Unverified Allergy, Severe, sneezing, chest tightness, 08/10) sodium iodide (Unverified Allergy, Severe, sneezing, chest tightness, 08/10) sulfamethoxazole (Unverified Allergy, Intermediate, abdominal pain, ) trimethoprim (Unverified Allergy, Intermediate, abdominal pain, 08/10/17) Reported Meds & Prescriptions Reported Meds & Active Scripts Active Ferrous Sulfate 325 Mg (65 Mg Iron) Tablet 325 Mg PO BIDPC Klor-Con 10 (Potassium Chloride) 10 Meq Tab 20 Meq PO DAILY Aldactone (Spironolactone) 25 Mg Tab 25 Mg PO DAILY Proair Hfa 8.5 GM Inh (Albuterol Sulfate) 90 Mcg/Act Aer 2 Puff INH Q4-6H PRN 108 mcg/actuation Carvedilol 25 Mg Tab 25 Mg PO BID Furosemide 40 Mg Tab 40 Mg PO DAILY PRN Enalapril (Enalapril Maleate) 20 Mg Tab 20 Mg PO BID One Daily For Women 50+A (Multiple Vitamins W/ Minerals) 1 Tab Tab 1 Tab PO DAILY Amlodipine (Amlodipine Besylate) 10 Mg Tab 10 Mg PO DAILY Reported Hydrochlorothiazide 25 Mg Tab 25 Mg PO DAILY CBC/BMP: 08/16/17 0736 08/16/17 0736 Significant Findings Laboratory Tests Test 08/14/17 03:20 08/14/17 23:41 08/15/17 03:36 08/16/17 07:36 White Blood Count 12.9 TH/MM3 (4.0-11.0) 14.4 TH/MM3 (4.0-11.0) Mean Corpuscular Hemoglobin 26.8 PG (27.0-34.0) 26.8 PG (27.0-34.0) Blood Urea Nitrogen 22 MG/DL (7-18) 20 MG/DL (7-18) Random Glucose 122 MG/DL (74-106) 108 MG/DL (74-106) Estimat Glomerular Filtration Rate 83 ML/MIN (>89) 81 ML/MIN (>89) 81 ML/MIN (>89) Potassium Level 3.3 MEQ/L (3.5-5.1) 3.3 MEQ/L (3.5-5.1) Red Cell Distribution Width 17.4 % (11.6-17.2) 17.3 % (11.6-17.2) Imaging Last Impressions Modified Barium Swallow 08/15/17 0000 Signed Impressions: Service Date/Time: Tuesday, August 15, 2017 00:00 - CONCLUSION: Negative examination. Please see speech pathology report. Jayjay Noble MD Chest X-Ray 08/15/17 0000 Signed Impressions: Service Date/Time: Tuesday, August 15, 2017 08:28 - CONCLUSION: Improved CHF vascular congestion. Mild residual atelectasis left base. ET tube removed. Jayjay Noble MD Abdomen X-Ray 08/15/17 0000 Signed Impressions: Service Date/Time: Tuesday, August 15, 2017 08:30 - CONCLUSION: Dobbhoff feeding tube terminates in the fundus of stomach Jayjay Noble MD Upper Extremity Ultrasound 08/14/17 0000 Signed Impressions: Service Date/Time: Monday, August 14, 2017 18:16 - CONCLUSION: Occlusive thrombus within the right subclavian, cephalic, axillary and basilic veins. Thrombus is also noted within the left basilic vein at the antecubital fossa. Aayush Krueger MD Lower Extremity Ultrasound 08/14/17 0000 Signed Impressions: Service Date/Time: Monday, August 14, 2017 18:13 - CONCLUSION: No evidence of deep venous thrombosis. Aayush Krueger MD Aorta CTA 08/13/17 0000 Signed Impressions: Service Date/Time: Sunday, August 13, 2017 22:19 - CONCLUSION: 1. No evidence for thoracic or abdominal aortic aneurysm or dissection. 2. Positive for segmental pulmonary emboli noted in the right lung. 3. Findings called to the floor nurse at the time of dictation. Reilly Velasquez MD Neck Magnetic Resonance Angiography 08/12/17 0900 Signed Impressions: Service Date/Time: Saturday, August 12, 2017 09:40 - CONCLUSION: Normal anatomy. No evidence of vessel stenosis or occlusion.. Samina Mata MD Head Magnetic Resonance Angiography 08/12/17 0900 Signed Impressions: Service Date/Time: Saturday, August 12, 2017 09:40 - CONCLUSION: No evidence of aneurysm or vessel truncation. No evidence of stenosis. The left vertebral artery is dominant, however, the right vertebral artery appears patent.. Samina Mata MD Brain MRI 08/12/17 0900 Signed Impressions: Service Date/Time: Saturday, August 12, 2017 09:40 - CONCLUSION: Acute infarct involving the junction of the right frontal parietal lobe as well as a small focal area of restricted diffusion involving the right occipital lobe. These findings are new as compared to prior CT.. Samina Mata MD Head CT 08/10/17 1938 Signed Impressions: Service Date/Time: July 19:50 - CONCLUSION: Negative noncontrast head CT. Trung Martel MD Neck CTA 08/10/17 0000 Signed Impressions: Service Date/Time: July 20:45 - CONCLUSION: Tortuous but nonstenotic carotid arteries. Trung Martel MD Head CTA 08/10/17 0000 Signed Impressions: Service Date/Time: July 20:45 - CONCLUSION: 1. No acute vessel thrombosis. 2. Nonfilling of the left A1 segment that appears developmental. Patent anterior communicating artery and A2 and distal segments fill normally. 3. 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 Trung Martel MD PE at Discharge GENERAL: sitting up in bed. Appears couple. SKIN: Warm and dry. HEAD: Normocephalic. EYES: No scleral icterus. No injection or drainage. NECK: Supple, trachea midline. No JVD. CARDIOVASCULAR: Regular rate and rhythm without murmurs, gallops, or rubs. RESPIRATORY: Breath sounds equal bilaterally. No accessory muscle use. GASTROINTESTINAL: Abdomen soft, non-tender, nondistended. MUSCULOSKELETAL: No cyanosis, or edema. BACK: Nontender without obvious deformity. No CVA tenderness. Pt update on day of discharge 08/16. Patient says she is feeling all right. A little tired today. Denies any chest pain or shortness of breath. Hospital Course Patient was found to have acute CVA on brain imaging on admission. CTA also indicated type B aortic dissection, however this was subsequently found to be a false finding secondary to movement on exam; no evidence of dissection on follow-up CT. Follow-up CT did show incidental finding of pulmonary embolism as above. She will Need full anticoagulation for incidental finding of right subsegmental PE, which neurology agrees with. Patient had troponin elevation up to 0.15 on admission, for which cardiology was consulted. Echocardiogram performed and shows ejection fraction of 20%. Cardiology will defer further workup until after discharge from [place]. Discussed with Dr. Mae. We'll discharge on Lovenox bridge to warfarin. Patient will continue on tube feedings. Barium swallow performed yesterday, and speech pathology has cleared patient for honey thickened liquids with pured diet. Speech pathology should continue to see patient at receiving facility. Recommend follow-up with neurology. Assessment: 66yF with ?Acute type B aortic dissection, complicated by small right parietal CVA and acute hypoxic respiratory failure requiring mechanical ventilation. CT aortogram stable. plan for ASA today. will anticoagulate for right subclavian DVT. For problem-based summary for most recent progress note, please see below. Acute metabolic encephalopathy - resolved. Agitated Delirium- resolved. Type B aortic dissection - stable. Hypertensive emergency - resolved. Acute hypoxic respiratory failure on mechanical ventilation - resolving. Systolic Congestive Heart Failure, EF 20% Elevated troponins, likely type II NSTEMI secondary to Demand Ischemia- resolved. Acute kidney injury- resolved. Acute CVA Plan: Neuro: frequent neuro checks. ASA. stroke rehab, pt/ot/st. does not need statin : lipid panel at goal. Cardiovascular: goal HR < 70, SBP < 120. carvedilol, hctz, po labetalol. Pulmonary: aggressive pulm toilet. PT, OT, ST, OOB. wean nc o2 as tolerated. GI/liver: video swallow today. DHT and tube feeds. Renal/: adequate uop. Cr downtrending. home po lasix. ID: No indication for antibiotics at this time. Heme: Follow CBC. anticoagulate with lovenox for upper extremity dvt. Endocrine: Watch for hyperglycemia, SSI for glycemic control if needed. Prophylaxis: Pepcid/SCDs/full dose lovenox. Pt Condition on Discharge: Good Discharge Disposition: Rehab Inpatient Discharge Time: > 30 minutes Discharge Instructions DIET: Follow Instructions for: As Tolerated, No Restrictions, On Tube Feeding Speech Therapy-Diet Recommends: Honey Thickened Liquids, Pureed Activities you can perform: Regular-No Restrictions Follow up Referrals: Cardiology with Kvng Mae MD Neurology - 1 Week with Cleve Enamorado MD New Medications: Aspirin DR (Aspirin EC) 81 Mg Tabdr 81 MG PO DAILY for prevent stroke, #30 TAB 0 Refills Simvastatin (Simvastatin) 10 Mg Tab 10 MG PO DAILY for Cholesterol Management, #30 TAB 0 Refills Warfarin (Warfarin) 4 Mg Tab 4 MG PO DAILY for Blood Clot Prevention, #30 TAB 0 Refills Enoxaparin Inj (Lovenox Inj) 120 Mg/0.8 Ml Syr 110 MG SQ Q24H for PE for 7 Days, INJECTION Oxycodone (Oxycodone) 5 Mg Tab 5 MG PO Q4H PRN for PAIN SCALE 1 TO 10 for 30 Days, #180 TAB Potassium Bicarb-Chloride Effervescent (Effervescent Potassium Chloride 25 Meq) 25 Meq Tab 25 MEQ PO DAILY for vitamin for 30 Days, #30 TAB Continued Medications: Albuterol 8.5 GM Inh (Proair Hfa 8.5 GM Inh) 90 Mcg/Act Aer 2 PUFF INH Q4-6H PRN for SHORTNESS OF BREATH, #1 INHALER 0 Refills 108 mcg/actuation Amlodipine (Amlodipine) 10 Mg Tab 10 MG PO DAILY for Blood Pressure Management, #30 TAB 0 Refills Carvedilol (Carvedilol) 25 Mg Tab 25 MG PO BID, #60 TAB 11 Refills Enalapril (Enalapril) 20 Mg Tab 20 MG PO BID, #30 TAB 0 Refills Ferrous Sulfate (Ferrous Sulfate) 325 Mg (65 Mg Iron) Tablet 325 MG PO BIDPC for Nutritional Supplement, #60 TAB 0 Refills Furosemide (Furosemide) 40 Mg Tab 40 MG PO DAILY PRN for Edema, #90 TAB 3 Refills Hydrochlorothiazide (Hydrochlorothiazide) 25 Mg Tab 25 MG PO DAILY, #30 TAB 0 Refills Multiple Vitamins W/ Minerals (One Daily For Women 50+A) 1 Tab Tab 1 TAB PO DAILY, #30 TAB Potassium Chloride ER (Klor-Con 10) 10 Meq Tab 20 MEQ PO DAILY, #30 TAB Spironolactone (Aldactone) 25 Mg Tab 25 MG PO DAILY, #30 TAB Chase Gross MD Aug 16, 2017 13:59
--- NOTE | 2017-08-16 15:31 | PD.CARD.PN ---
Subjective Subjective Remarks No CP or SOB, feels better Objective Medications Current Medications Medications (Trade) Dose Ordered Sig/James Route Start Time Stop Time Status Last Admin (NS Flush) 2 ml UNSCH PRN IV FLUSH 08/10/17 22:00 (NS Flush) 2 ml BID IV FLUSH 08/11/17 09:00 08/16/17 07:58 (Tylenol) 650 mg Q6H PRN PO 08/10/17 22:00 (Duoneb Neb) 1 ampule Q4HR NEB PRN INH 08/10/17 22:00 (Peridex 0.12% Liq) 15 ml BID@08,20 MT 08/11/17 08:00 08/16/17 07:57 Miscellaneous Information 1 Q361D XX 08/10/17 22:00 08/10/17 22:00 (Chlorhexidine 2% Cloth) Taper DAILY@04 TOP 08/11/17 04:00 08/07/18 03:59 08/15/17 03:36 (Chlorhexidine 2% Cloth) 3 pack UNSCH PRN TOP 08/10/17 22:00 (Norvasc) 10 mg DAILY PO 08/11/17 09:00 08/16/17 07:57 (Coreg) 25 mg BID PO 08/11/17 09:00 08/16/17 07:57 (Ferrous Sulfate) 325 mg BIDPC PO 08/11/17 09:00 08/16/17 07:57 (Hydrodiuril) 25 mg DAILY PO 08/11/17 09:00 08/13/17 08:24 (Aldactone) 25 mg DAILY PO 08/11/17 09:00 08/13/17 08:27 (Theragran M Tab) 1 tab DAILY PO 08/11/17 09:00 08/16/17 07:57 (Trandate Inj) 20 mg Q15M PRN IV PUSH 08/11/17 08:45 (Apresoline Inj) 10 mg Q30M PRN IV PUSH 08/11/17 08:45 08/12/17 16:40 (Lasix) 40 mg DAILY PO 08/14/17 09:00 08/16/17 07:58 (Pepcid) 20 mg BID PO 08/14/17 09:00 08/16/17 07:57 (Roxicodone) 5 mg Q4H PRN PO 08/14/17 08:45 (Dilaudid Pf Inj) 0.5 mg Q4H PRN IV PUSH 08/14/17 08:45 (Aspirin) 325 mg DAILY PO 08/15/17 09:00 08/16/17 07:57 (Lovenox Inj) 110 mg Q24H SQ 08/15/17 10:00 08/16/17 11:09 (K-Lyte Cl Eff) 25 meq DAILY PO 08/16/17 09:00 08/16/17 07:57 Vital Signs / I&O Vital Signs Date Time Temp Pulse Resp B/P (MAP) Pulse Ox O2 Delivery O2 Flow Rate FiO2 08/16/17 12:00 71 08/16/17 11:25 98.0 78 17 128/93 (105) 96 08/16/17 08:05 98.5 77 17 140/95 (110) 94 08/16/17 08:00 82 08/16/17 04:00 75 08/16/17 04:00 98.4 75 18 133/96 (108) 97 08/16/17 00:00 98.7 74 19 132/98 (109) 94 08/16/17 00:00 75 08/15/17 20:00 98.7 77 20 136/96 (109) 100 08/15/17 19:58 77 08/15/17 19:00 98.4 77 17 152/108 (123) 96 I/O 08/15/17 08/15/17 08/15/17 08/16/17 08/16/17 08/16/17 07:00 15:00 23:00 07:00 15:00 23:00 Intake Total 568 ml 614 ml 820 ml Output Total 1300 ml 1200 ml 800 ml Balance -732 ml -586 ml 20 ml Intake Oral 0 ml IV Total 200 ml 300 ml Tube Feeding 368 ml 314 ml 720 ml Other 100 ml Output Urine Total 1300 ml 1200 ml 800 ml # Bowel Movements 0 0 1 Physical Exam GENERAL: In NAD. SKIN: Warm and dry. HEAD: Normocephalic. EYES: No scleral icterus. No injection or drainage. NECK: Supple, trachea midline. No JVD or lymphadenopathy. CARDIOVASCULAR: Regular rate and rhythm without murmurs, gallops, or rubs. RESPIRATORY: Breath sounds equal bilaterally. No accessory muscle use. GASTROINTESTINAL: Abdomen soft, non-tender, nondistended. MUSCULOSKELETAL: No cyanosis, or edema. Laboratory Laboratory Tests Test 08/16/17 07:36 White Blood Count 8.1 TH/MM3 Red Blood Count 4.60 MIL/MM3 Hemoglobin 12.4 GM/DL Hematocrit 37.5 % Mean Corpuscular Volume 81.5 FL Mean Corpuscular Hemoglobin 27.0 PG Mean Corpuscular Hemoglobin Concent 33.2 % Red Cell Distribution Width 17.3 % Platelet Count 190 TH/MM3 Mean Platelet Volume 10.1 FL Blood Urea Nitrogen 15 MG/DL Creatinine 0.77 MG/DL Random Glucose 108 MG/DL Calcium Level 8.7 MG/DL Sodium Level 141 MEQ/L Potassium Level 3.8 MEQ/L Chloride Level 103 MEQ/L Carbon Dioxide Level 31.5 MEQ/L Anion Gap 7 MEQ/L Estimat Glomerular Filtration Rate 91 ML/MIN Assessment and Plan Problem List: (1) Acute CVA (cerebrovascular accident) ICD Codes: I63.9 - Cerebral infarction, unspecified Status: Acute (2) Acute thoracic aortic dissection ICD Codes: I71.01 - Dissection of thoracic aorta Status: Acute (3) Cardiomyopathy ICD Codes: I42.9 - Cardiomyopathy, unspecified (4) Hypertension ICD Codes: I10 - Essential (primary) hypertension Status: Chronic (5) Chronic kidney disease ICD Codes: N18.9 - Chronic kidney disease, unspecified Status: Chronic Assessment and Plan No new cardiac issues. Neuro status improving. Still unable to swallow. Continue PT/OT. No evidence of dissection on f/u images. BP controlled. Neurology eval in progress. Continue tx for CHF including beta quin and JEREMY- I. Discharge to rehab as planned. Will schedule outpt f/u once rehab completed. Kvng Mae MD Aug 16, 2017 15:30
== END 2017-08-16 17:02 | DRG 64 ==
LOC: NEPE 19:29 → NEDA 21:23 → UNDOADMIN 21:23 → NEDA 23:29 → HCVI 23:29 → N04A 08-15 18:47
PROVIDERS: ADMIT Internal Medicine Critical Care Medicine; ATTEND Internal Medicine
PROC: 0BH17EZ Insertion of Endotracheal Airway into Trachea, Via Natural or Artificial Opening (ICD-10-PCS; principal; 2017-08-10)
PROC: 5A1945Z Respiratory Ventilation, 24-96 Consecutive Hours (ICD-10-PCS; 2017-08-10)
DX: I63.9 Cerebral infarction, unspecified (principal); J96.01 Acute respiratory failure with hypoxia; I21.A1 Myocardial infarction type 2; I26.99 Other pulmonary embolism without acute cor pulmonale; G93.41 Metabolic encephalopathy; I13.0 Hypertensive heart and chronic kidney disease with heart failure and stage 1 through stage 4 chronic kidney disease, or unspecified chronic kidney disease; I50.20 Unspecified systolic (congestive) heart failure; I16.1 Hypertensive emergency; N17.9 Acute kidney failure, unspecified; G81.94 Hemiplegia, unspecified affecting left nondominant side; I42.9 Cardiomyopathy, unspecified; I82.B11 Acute embolism and thrombosis of right subclavian vein; R29.810 Facial weakness; R47.1 Dysarthria and anarthria; R41.0 Disorientation, unspecified; Z88.2 Allergy status to sulfonamides; Z88.8 Allergy status to other drugs, medicaments and biological substances; Z91.041 Radiographic dye allergy status; N18.9 Chronic kidney disease, unspecified
CPT/HCPCS: 31500; 36620; 70450; 70496; 70498; 70544; 70548; 70551; 71045; 71275; 74018; 74174; 74230; 80048; 80053; 80061; 80307; 81001; 82550; 82805; 82948; 83605; 84484; 85025; 85027; 85610; 85730; 86403; 87070; 87086; 87205; 93005; 93306; 93970; 94002; 94003; 94150; 94640; 94667; 94668; 96361; 96374; 96375; 96376; A9579; J0171; J0330; J0360; J0461; J1200; J1644; J1650; J1940; J2060; J2930; J3010; J3480; J7030; J7050; J7512; Q0163; Q9967

== ENCOUNTER 2017-11-15 09:37 | Inpatient (IN) | payer MEDICARE ==
[~2017-11-15] VITALS: Ht 167.6 cm; Wt 71.7 kg
[2017-11-15] VITALS (20 sets, daily range): BP systolic 111–169; BP diastolic 75–134; PULSE 58–105; RESP 14–20; TEMP 97.4–97.8; O2SAT 95–97
[~2017-11-15 09:37] MED LIST changes: +ASPI81TA23 PO; +CARV12.5 PO; +COUM4TAB PO; +ECASA81 PO; +ENAL10TA PO; +ENOX120P SQ; +FERR325T20 PO; +HYDR25TA5 PO; -KLOR10TA PO; +KLYTECL PO; +OXYC-392 PO; +PERI PO; +POTA20TA5 PO; +SIMV10TA PO; +WARF-20 PO
[2017-11-15] MEDS ORDERED: ENAL2.5T PO (10:00)
[2017-11-15] MEDS ORDERED: FUROSEMIDE 40 MG/4 ML VIAL IVP ONE (10:00)
[2017-11-15] MEDS ORDERED: SODIUM CHLORIDE 0.9% FLUSH 10 ML FLUSH IVF PRN (10:00)
[2017-11-15] MEDS ORDERED: ONDANSETRON HCL 4 MG/2 ML VIAL IV PUSH ONE (10:00)
[2017-11-15] MEDS ORDERED: ENALAPRILAT 1.25 MG/ML VIAL IV PUSH ONE (10:00)
--- NOTE | 2017-11-15 10:01 | PD ---
HPI Chief Complaint: GI Complaint Time Seen by Provider: 09:54 Travel History International Travel<30 days: No Contact w/Intl Traveler<30days: No Traveled to known affect area: No History of Present Illness HPI 66 y/o female presents with nonbloody emesis and shortness of breath that started the day before yesterday at dinner. She states she has not been able to keep down her medications. She denies other specific concurrent complaints other than upper right-sided back pain. Quality is nonbloody. Severity is multiple episodes. Patient denies specific modifying factors. Duration is a day and a half. PFSH Past Medical History Hx Anticoagulant Therapy: Yes Arthritis: Yes Asthma: No Anxiety: No Depression: No Heart Rhythm Problems: Yes (arrhythmia) Cancer: No Cardiovascular Problems: Yes High Cholesterol: No Chest Pain: No Congestive Heart Failure: Yes Cerebrovascular Accident: Yes Diabetes: No Diminished Hearing: No Endocrine: Yes Gastrointestinal Disorders: Yes GERD: No Genitourinary: No Hiatal Hernia: No Hypertension: Yes Immune Disorder: No Musculoskeletal: Yes Neurologic: No Psychiatric: No Reproductive: No Respiratory: Yes Sleep Apnea: No Thyroid Disease: Yes Ulcer: Yes Tetanus Vaccination: > 5 Years Influenza Vaccination: No ?: Not Menopausal: Yes Past Surgical History Surgical History: No Previous Surgery Social History Alcohol Use: No Tobacco Use: No Substance Use: No Allergies-Medications (Allergen,Severity, Reaction): Coded Allergies: iodine (Unverified Allergy, Severe, sneezing, chest tightness, 11/15/17) potassium iodide (Unverified Allergy, Severe, sneezing, chest tightness, ) povidone-iodine (Unverified Allergy, Severe, sneezing, chest tightness, 11/15/17) sodium iodide (Unverified Allergy, Severe, sneezing, chest tightness, ) sodium iodide (Unverified Allergy, Severe, sneezing, chest tightness, ) sulfamethoxazole (Unverified Allergy, Intermediate, abdominal pain, 11/15/17 ) trimethoprim (Unverified Allergy, Intermediate, abdominal pain, 11/15/17) hydralazine (Verified Allergy, Unknown, Edema, 11/15/17) Uncoded Allergies: Statins (Allergy, Unknown, 08/18/17) Reported Meds & Prescriptions Reported Meds & Active Scripts Active Coumadin (Warfarin) 4 Mg Tab 4 Mg PO DAILY@1600 Gnp Senna Plus 8.6-50 mg (Sennosides-Docusate Sodium) 8.6 Mg-50 Mg Tab 1 Tab PO BID PRN 30 Days Furosemide 40 Mg Tab 40 Mg PO DAILY 30 Days Potassium Chloride Microencaps 20 Meq Tab 20 Meq PO DAILY [address] (Aspirin) 81 Mg Tabdr 81 Mg PO DAILY 30 Days Ferosul (Ferrous Sulfate) 325 Mg (65 Mg Iron) Tablet 325 Mg PO BIDPC 30 Days Carvedilol 25 Mg Tab 25 Mg PO BID Reported Enalapril (Enalapril Maleate) 2.5 Mg Tab 2.5 Mg PO DAILY Review of Systems Except as stated in HPI: all other systems reviewed are Neg Physical Exam Narrative GENERAL: 66-year-old female in no apparent distress SKIN: Focused skin assessment warm/dry. HEAD: Atraumatic. Normocephalic. EYES: Pupils equal and round. No scleral icterus. No injection or drainage. ENT: No nasal bleeding or discharge. Mucous membranes pink and moist. NECK: Trachea midline. CARDIOVASCULAR: Regular rate and rhythm. RESPIRATORY: No accessory muscle use. Clear to auscultation. Breath sounds equal bilaterally. GASTROINTESTINAL: Abdomen soft, non-tender, nondistended. Hepatic and splenic margins not palpable. MUSCULOSKELETAL: No obvious deformities. No clubbing. No cyanosis. No significant edema. NEUROLOGICAL: Awake and alert. Moves all extremities. Normal speech. PSYCHIATRIC: Appropriate mood and affect; insight and judgment normal. Data Data Last Documented VS Vital Signs Date Time Temp Pulse Resp B/P (MAP) Pulse Ox O2 Delivery O2 Flow Rate FiO2 11/15/17 13:03 82 142/115 (124) 11/15/17 12:00 17 96 Room Air 11/15/17 09:43 97.4 Orders Orders Complete Blood Count With Diff (11/15/17 09:54) Comprehensive Metabolic Panel (11/15/17 09:54) B-Type Natriuretic Peptide (11/15/17 09:54) Act Partial Throm Time (Ptt) (11/15/17 09:54) Prothrombin Time / Inr (Pt) (11/15/17 09:54) Magnesium (Mg) (11/15/17 09:54) Ckmb (Isoenzyme) Profile (11/15/17 09:54) Troponin I (11/15/17 09:54) Iv Access Insert/Monitor (11/15/17 09:54) Electrocardiogram (11/15/17 09:54) Ecg Monitoring (11/15/17 09:54) Oximetry (11/15/17 09:54) Chest, Single Ap (11/15/17 09:54) Sodium Chloride 0.9% Flush (Ns Flush) (11/15/17 10:00) Furosemide Inj (Lasix Inj) (11/15/17 10:00) Ondansetron Inj (Zofran Inj) (11/15/17 10:00) Enalaprilat Inj (Vasotec Inj) (11/15/17 10:00) Nitroglycerin 2% Oint (Nitroglycerin 2% (11/15/17 11:15) Furosemide Inj (Lasix Inj) (11/15/17 11:15) CKMB (11/15/17 10:10) CKMB% (11/15/17 10:10) Hydralazine Inj (Apresoline Inj) (11/15/17 12:15) Clonidine (Catapres) (11/15/17 12:15) Nitroglycerin-D5w 50 Mg/250 Ml (Nitrogly (11/15/17 13:15) Admit Order (Ed Use Only) (11/15/17 13:20) Labs Laboratory Tests Test 11/15/17 10:10 White Blood Count 7.2 TH/MM3 Red Blood Count 4.47 MIL/MM3 Hemoglobin 12.7 GM/DL Hematocrit 38.6 % Mean Corpuscular Volume 86.4 FL Mean Corpuscular Hemoglobin 28.3 PG Mean Corpuscular Hemoglobin Concent 32.8 % Red Cell Distribution Width 17.6 % Platelet Count 246 TH/MM3 Mean Platelet Volume 10.6 FL Neutrophils (%) (Auto) 75.7 % Lymphocytes (%) (Auto) 17.3 % Monocytes (%) (Auto) 6.4 % Eosinophils (%) (Auto) 0.1 % Basophils (%) (Auto) 0.5 % Neutrophils # (Auto) 5.4 TH/MM3 Lymphocytes # (Auto) 1.2 TH/MM3 Monocytes # (Auto) 0.5 TH/MM3 Eosinophils # (Auto) 0.0 TH/MM3 Basophils # (Auto) 0.0 TH/MM3 CBC Comment DIFF FINAL Differential Comment Prothrombin Time 30.8 SEC Prothromb Time International Ratio 3.1 RATIO Activated Partial Thromboplast Time 35.2 SEC Blood Urea Nitrogen 26 MG/DL Creatinine 1.70 MG/DL Random Glucose 116 MG/DL Total Protein 6.9 GM/DL Albumin 3.5 GM/DL Calcium Level 8.5 MG/DL Magnesium Level 2.2 MG/DL Alkaline Phosphatase 52 U/L Aspartate Amino Transf (AST/SGOT) 46 U/L Alanine Aminotransferase (ALT/SGPT) 65 U/L Total Bilirubin 2.0 MG/DL Sodium Level 138 MEQ/L Potassium Level 5.2 MEQ/L Chloride Level 108 MEQ/L Carbon Dioxide Level 22.6 MEQ/L Anion Gap 7 MEQ/L Estimat Glomerular Filtration Rate 36 ML/MIN Total Creatine Kinase 130 U/L Creatine Kinase MB 1.1 NG/ML Troponin I 0.07 NG/ML B-Type Natriuretic Peptide GREATER THAN 5000 PG/ML MDM Medical Decision Making Medical Screen Exam Complete: Yes Emergency Medical Condition: Yes Medical Record Reviewed: Yes (Past history confirmed) Interpretation(s) CBC & BMP Diagram 11/15/17 10:10 Total Protein 6.9, Albumin 3.5, Calcium Level 8.5, Magnesium Level 2.2, Alkaline Phosphatase 52, Aspartate Amino Transf (AST/SGOT) 46 H, Alanine Aminotransferase (ALT/SGPT) 65 H, Total Bilirubin 2.0 H Last 24 hours Impressions Chest X-Ray 11/15/17 0954 Signed Impressions: Service Date/Time: Wednesday, November 15, 2017 10:31 - CONCLUSION: 1. Stable atelectasis/scarring in the left lung base. 2. Compensated cardiomegaly. Gibran Mckeon MD Differential Diagnosis Hypertensive urgency, CHF exacerbation, renal failure, electrolyte abnormality, pneumonia Narrative Course We will check blood work, chest x-ray, EKG and dose with Lasix, Vasotec and Zofran and reevaluate. If tolerating liquids will give her rest of her home medications and then if she has any additional blood pressure control will proceed from there. ed workup with chf exacerbation, patient originally given Vasotec and Lasix and antiemetic with home medications. Blood pressure still uncontrolled so given Nitropaste when BNP resulted. Given potassium further Vasotec will be held. Ordered for hydralazine but patient states she is now allergic to that. Will dose with clonidine and monitor. Patient's blood pressure without significant change will place on nitro drip and admit. We will continue to titrate up nitro drip for blood pressure control. Patient updated Critical Care Narrative Aggregate critical care time was 45 minutes. Time to perform other separately billable procedures was not included in the critical care time. My time did not include minutes spent treating any other patients simultaneously or on activities that did not directly contribute to the patient's treatment. The services I provided to this patient were to treat and/or prevent clinically significant deterioration that could result in: Hypertensive emergency, I provided critical care services requiring my management, as noted below: Chart data review, documentation time, medication orders and management, vital sign assessments/reviewing monitor data, ordering and reviewing lab tests, ordering and interpreting/reviewing x-rays and diagnostic studies, care of the patient and discussion of the patient with the admitting physicians. Physician Communication Physician Communication resident team agree to admit Diagnosis Primary Impression: Acute exacerbation of congestive heart failure Qualified Codes: I50.9 - Heart failure, unspecified Additional Impression: Hypertensive emergency Admitting Information Admitting Physician Requests: Admit Gwendolyn Granda MD November 15, 2017 10:01
[2017-11-15 10:34] LABS: AUTOMATED NEUTROPHIL # 5.4 TH/MM3 (1.8-7.7); BASOPHIL % 0.5 % (0.0-2.0); EOSINOPHIL % 0.1 % (0.0-4.0); HEMATOCRIT 38.6 % (35.0-46.0); HEMOGLOBIN 12.7 GM/DL (11.6-15.3); LYMPH % 17.3 % (9.0-44.0); LYMPHOCYTE # 1.2 TH/MM3 (1.0-4.8); MEAN CELL VOLUME 86.4 FL (80.0-100.0); MEAN CORPUSCULAR HEMOGLOBIN 28.3 PG (27.0-34.0); MEAN CORPUSCULAR HGB CONC 32.8 % (32.0-36.0); MEAN PLATELET VOLUME 10.6 FL (7.0-11.0); MONO % 6.4 % (0.0-8.0); MONOCYTE # 0.5 TH/MM3 (0-0.9); NEUT % 75.7 % (16.0-70.0); PLATELET COUNT 246 TH/MM3 (150-450); RED BLOOD COUNT 4.47 MIL/MM3 (4.00-5.30); RED CELL DISTRIBUTION WIDTH 17.6 % (11.6-17.2); WHITE BLOOD COUNT 7.2 TH/MM3 (4.0-11.0)
[2017-11-15 10:53] LABS: INTERNATIONAL NORMALIZED RATIO 3.1 RATIO; PROTHROMBIN TIME - PATIENT 30.8 SEC (9.8-11.6)
--- NOTE | 2017-11-15 10:53 | RADRPT ---
EXAM DATE/TIME: 11/15/2017 10:31 [facility] COMPARISON: CHEST PA & LAT, August 17, 2017, 8:52. CHEST SINGLE AP, August 15, 2017, 8:28. INDICATIONS : Short of breath, vomiting, back pain. MEDICAL HISTORY : Stroke. Hypertension Congestive heart failure. thyroid disease, ulcer SURGICAL HISTORY : None. ENCOUNTER: Initial ACUITY: 3 days PAIN SCORE: 0/10 LOCATION: Bilateral cranial FINDINGS: Redemonstration of platelike airspace disease in the left lower lung zone. No new focal pleural or pa renchymal opacities. Cardiac silhouette is mildly enlarged. Bony thorax is intact. CONCLUSION: 1. Stable atelectasis/scarring in the left lung base. 2. Compensated cardiomegaly. Gibran Mckeon MD on November 15, 2017 at 10:50 Board Certified Radiologist. This report was verified electronically.
[2017-11-15 11:00] LABS: ALBUMIN 3.5 GM/DL (3.4-5.0); BICARBONATE 22.6 MEQ/L (21.0-32.0); BLOOD UREA NITROGEN 26 MG/DL (7-18); CALCIUM 8.5 MG/DL (8.5-10.1); CHLORIDE 108 MEQ/L (98-107); GLOMERULAR FILTRATION RATE 36 ML/MIN (>89); GLUCOSE,RANDOM 116 MG/DL (74-106); MAGNESIUM 2.2 MG/DL (1.5-2.5); SODIUM (NA) 138 MEQ/L (136-145)
[2017-11-15 11:07] LABS: AST (GOT) 46 U/L (15-37)
[2017-11-15 11:12] LABS: ALKALINE PHOSPHATASE 52 U/L (45-117); ALT (GPT) 65 U/L (10-53); TOTAL PROTEIN 6.9 GM/DL (6.4-8.2); TROPONIN I 0.07 NG/ML (0.02-0.05)
[2017-11-15] MEDS ORDERED: NITROGLYCERIN 2% OINT 1 GM PACKET TOP ONE (11:15)
[2017-11-15] MEDS ORDERED: FUROSEMIDE 40 MG/4 ML VIAL IV PUSH ONE (11:15)
[2017-11-15] MEDS ORDERED: hydrALAZINE HCL 20 MG/ML VIAL IV PUSH ONE (12:15)
[2017-11-15] MEDS ORDERED: cloNIDine HCL 0.1 MG TAB PO ONE (12:15)
[2017-11-15] MEDS ORDERED: NITROGLYCERIN-D5W 50 MG/250 ML 250 ML IV ONE (13:15)
--- NOTE | 2017-11-15 13:26 | HHI.HP ---
[facility] Service Family Medicine Primary Care Physician [facility] Hakeem Monreal MD Admission Diagnosis Diagnoses: International Travel<30 Days: No Contact w/Intl Traveler<30days: No Known Affected Area: No History of Present Illness Patient is a 66-year-old female past medical history significant for hypertension, CHF presenting to the ED due to intractable nausea and vomiting found to be in a CHF exacerbation. PCP is Dr. Monreal. She reports that she started to have vomiting and diarrhea on Monday and she vomited once with several episodes of diarrhea. Vomitus and diarrhea were nonbloody. On Monday she vomited a total of 3 times and continued to have diarrhea. She reports that she has vomited once today. She has not been able to keep anything down, including liquids and her medications. She denies any sick contacts. She denies any increase in her fluid intake. She denies chest pain, feeling short of breath, increase in swelling. She reports that her last echo was about 6 months ago and she is due to have this redone next week. She is followed by cardiology. Her senior lead developer is Dr. Mae. Review of Systems Constitutional: DENIES: Fever, Chills Eyes: DENIES: Vision loss Ears, nose, mouth, throat: DENIES: Vertigo Respiratory: COMPLAINS OF: Cough, Shortness of breath Cardiovascular: DENIES: Chest pain Gastrointestinal: COMPLAINS OF: Abdominal pain, Diarrhea, Nausea, Vomiting Genitourinary: DENIES: Urinary frequency, Urgency Musculoskeletal: DENIES: Joint Swelling Integumentary: DENIES: Rash Immunologic/allergic: DENIES: Urticaria Neurologic: DENIES: Headache Psychiatric: DENIES: Confusion, Mood changes Past Family Social History Past Medical History Hypertension CHF Bronchitis CVA Mitral valve prolapse Past Surgical History None Reported Medications Reported Meds & Active Scripts Active Coumadin (Warfarin) 4 Mg Tab 4 Mg PO DAILY@1600 2mg monday, 2mg monday 4mg monday 2mg Gnp Senna Plus 8.6-50 mg (Sennosides-Docusate Sodium) 8.6 Mg-50 Mg Tab 1 Tab PO BID PRN 30 Days Furosemide 40 Mg Tab 40 Mg PO DAILY 30 Days Potassium Chloride Microencaps 20 Meq Tab 20 Meq PO DAILY [address] (Aspirin) 81 Mg Tabdr 81 Mg PO DAILY 30 Days Ferosul (Ferrous Sulfate) 325 Mg (65 Mg Iron) Tablet 325 Mg PO BIDPC 30 Days Carvedilol 25 Mg Tab 25 Mg PO BID Reported Enalapril (Enalapril Maleate) 2.5 Mg Tab 2.5 Mg PO DAILY Allergies: Coded Allergies: iodine (Unverified Allergy, Severe, sneezing, chest tightness, 11/15/17) potassium iodide (Unverified Allergy, Severe, sneezing, chest tightness, ) povidone-iodine (Unverified Allergy, Severe, sneezing, chest tightness, 11/15/17) sodium iodide (Unverified Allergy, Severe, sneezing, chest tightness, ) sodium iodide (Unverified Allergy, Severe, sneezing, chest tightness, ) sulfamethoxazole (Unverified Allergy, Intermediate, abdominal pain, 11/15/17 ) trimethoprim (Unverified Allergy, Intermediate, abdominal pain, 11/15/17) hydralazine (Verified Allergy, Unknown, Edema, 11/15/17) Uncoded Allergies: Statins (Allergy, Unknown, 08/18/17) Family History Father: of heart disease Mother: of cancer Sibling(s): Sisters, all , 2 of cancer, 2 of heart disease 2 brothers, of heart disease 1 brother, alive, has lung cancer Social History Marital status: Occupation: 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[employer]; 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, 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 SKIN: No rashes, ecchymoses or lesions. Cool and dry. HEAD: Atraumatic. Normocephalic. No temporal or scalp tenderness. EYES: Pupils equal round and reactive. Extraocular motions intact. No scleral icterus. No injection or drainage. ENT: Nose without bleeding, purulent drainage or septal hematoma. Throat without erythema, tonsillar hypertrophy or exudate. Uvula midline. Airway patent. NECK: Trachea midline. No JVD or lymphadenopathy. Supple, nontender, no meningeal signs. CARDIOVASCULAR: Regular rate and rhythm, 2/6 AMARJIT RESPIRATORY: Clear to auscultation. Breath sounds equal bilaterally. No wheezes , rales, or rhonchi. No significant crackles at lung bases. GASTROINTESTINAL: Abdomen soft, non-tender, nondistended. No hepato-splenomegaly , or palpable masses. No guarding. MUSCULOSKELETAL: Extremities without clubbing, cyanosis. No significant lower extremity edema. No joint tenderness, effusion, or edema noted. No calf tenderness. Negative Homans sign bilaterally. NEUROLOGICAL: Awake and alert. Cranial nerves II through XII intact. Motor and sensory grossly within normal limits. Normal speech. Laboratory Laboratory Tests Test 11/15/17 10:10 White Blood Count 7.2 Red Blood Count 4.47 Hemoglobin 12.7 Hematocrit 38.6 Mean Corpuscular Volume 86.4 Mean Corpuscular Hemoglobin 28.3 Mean Corpuscular Hemoglobin Concent 32.8 Red Cell Distribution Width 17.6 Platelet Count 246 Mean Platelet Volume 10.6 Neutrophils (%) (Auto) 75.7 Lymphocytes (%) (Auto) 17.3 Monocytes (%) (Auto) 6.4 Eosinophils (%) (Auto) 0.1 Basophils (%) (Auto) 0.5 Neutrophils # (Auto) 5.4 Lymphocytes # (Auto) 1.2 Monocytes # (Auto) 0.5 Eosinophils # (Auto) 0.0 Basophils # (Auto) 0.0 CBC Comment DIFF FINAL Differential Comment Prothrombin Time 30.8 Prothromb Time International Ratio 3.1 Activated Partial Thromboplast Time 35.2 Blood Urea Nitrogen 26 Creatinine 1.70 Random Glucose 116 Total Protein 6.9 Albumin 3.5 Calcium Level 8.5 Magnesium Level 2.2 Alkaline Phosphatase 52 Aspartate Amino Transf (AST/SGOT) 46 Alanine Aminotransferase (ALT/SGPT) 65 Total Bilirubin 2.0 Sodium Level 138 Potassium Level 5.2 Chloride Level 108 Carbon Dioxide Level 22.6 Anion Gap 7 Estimat Glomerular Filtration Rate 36 Total Creatine Kinase 130 Creatine Kinase MB 1.1 Troponin I 0.07 B-Type Natriuretic Peptide GREATER THAN 5000 Result Diagram: 11/15/17 1010 11/15/17 1010 Imaging Last 24 hours Impressions Chest X-Ray 11/15/17 0954 Signed Impressions: Service Date/Time: Monday, November 15, 2017 10:31 - CONCLUSION: 1. Stable atelectasis/scarring in the left lung base. 2. Compensated cardiomegaly. MD Peg Gillespie VTE Risk Assessment Peg VTE Risk Assessment: No/Low Risk (score <= 1) Juanrini Risk Assessment Model Point Value = 1 Point Value = 2 Point Value = 3 Point Value = 5 Age 41-60 Minor surgery BMI > 25 kg/m2 Swollen legs Varicose veins or History of unexplained or recurrent spontaneous Oral contraceptives or hormone replacement Sepsis (< 1 month) Serious lung disease, including pneumonia (< 1 month) Abnormal pulmonary function Acute myocardial infarction Congestive heart failure (< 1 month) History of inflammatory bowel disease Medical patient at bed rest Age 61-74 Arthroscopic surgery Major open surgery (> 45 min) Laparoscopic surgery (> 45 min) Malignancy Confined to bed (> 72 hours) Immobilizing plaster cast Central venous access Age >= 75 History of VTE Family history of VTE Factor V Leiden Prothrombin [id number] Lupus anticoagulant Anticardiolipin antibodies Elevated serum homocysteine Heparin-induced thrombocytopenia Other congenital or acquired thrombophilia Stroke (< 1 month) Elective arthroplasty Hip, pelvis, or leg fracture Acute spinal cord injury (< 1 month) Prophylaxis Regimen Total Risk Factor Score Risk Level Prophylaxis Regimen 0-1 Low Early ambulation 2 Moderate Order ONE of the following: *Sequential Compression Device (SCD) *Heparin 5000 units SQ BID 3-4 Higher Order ONE of the following medications: *Heparin 5000 units SQ TID *Enoxaparin/Lovenox 40 mg SQ daily (WT < 150 kg, CrCl > 30 mL/min) *Enoxaparin/Lovenox 30 mg SQ daily (WT < 150 kg, CrCl > 10-29 mL/min) *Enoxaparin/Lovenox 30 mg SQ BID (WT < 150 kg, CrCl > 30 mL/min) AND/OR *Sequential Compression Device (SCD) 5 or more Highest Order ONE of the following medications: *Heparin 5000 units SQ TID (Preferred with Epidurals) *Enoxaparin/Lovenox 40 mg SQ daily (WT < 150 kg, CrCl > 30 mL/min) *Enoxaparin/Lovenox 30 mg SQ daily (WT < 150 kg, CrCl > 10-29 mL/min) *Enoxaparin/Lovenox 30 mg SQ BID (WT < 150 kg, CrCl > 30 mL/min) AND *Sequential Compression Device (SCD) Assessment and Plan Assessment and Plan Patient is a 66-year-old admitted due to intractable nausea and vomiting found to have a CHF exacerbation. Cardiology has been consulted. Code Status Full Discussed Condition With Will discuss with Dr. Cardenas Problem List: (1) CHF exacerbation ICD Codes: I50.9 - Heart failure, unspecified Plan: Patient found to have acute CHF exacerbation with BNP greater than 5000, currently asymptomatic. No significant crackles or edema appreciated on exam. -Lasix 40 mg IV twice daily -Last echo with EF of 20-25% from 08/11/17 -Echo ordered -Continue to trend BNP -Fluid restriction of 2 L daily -Monitor daily weights -Cardiology consulted, appreciate recommendations (2) Nausea & vomiting ICD Codes: R11.2 - Nausea with vomiting, unspecified Plan: Patient was given a dose of Zofran while in the ED and reports that this worked well. -Zofran 4 mg IV every 6 hours as needed for nausea or vomiting (3) Hypertension ICD Codes: I10 - Essential (primary) hypertension Status: Chronic Plan: BP found to be elevated and resistant to oral medications -Patient started on nitro drip -Continue to monitor blood pressure -Continue oral home blood pressure medications (4) Diarrhea ICD Codes: R19.7 - Diarrhea, unspecified Plan: Patient expresses symptoms consistent with gastroenteritis -Will check stool studies (5) History of CVA (cerebrovascular accident) ICD Codes: Z86.73 - Personal history of transient ischemic attack (TIA), and cerebral infarction without residual deficits Plan: Pt with hx of CVA on coumadin -Serotherapeutic on admission at 3.1 -Will hold today and check INR tomorrow and adjust dosing as indicated (6) FEN/PPX Plan: Fluid: Restrict fluid intake to less than 2 L daily Electrolytes: Within normal limits, continue to monitor and replete as needed Nutrition: Heart healthy diet as tolerated DVT PPX: Patient therapeutic on Coumadin, continue to monitor INR and adjust Coumadin dosing as needed Physician Certification 2 Midnight Certification Type: Admission for Inpatient Services Order for Inpatient Services The services are ordered in accordance with Medicare regulations or non- Medicare payer requirements, as applicable. In the case of services not specified as inpatient-only, they are appropriately provided as inpatient services in accordance with the 2-midnight benchmark. Estimated LOS (days): 2 days is the estimated time the patient will need to remain in the hospital, assuming treatment plan goals are met and no additional complications. Post-Hospital Plan: Home Albert Miller MD R3 November 15, 2017 13:26
[2017-11-15] MEDS ORDERED: ONDANSETRON HCL 4 MG/2 ML VIAL IV PUSH PRN (14:15)
[2017-11-15] MEDS ORDERED: SODIUM CHLORIDE 0.9% FLUSH 10 ML FLUSH IV FLUSH PRN (14:15)
[2017-11-15] MEDS ORDERED: CARVEDILOL 12.5 MG TAB PO ONE (17:00)
[2017-11-15] MEDS: FERROUS SULFATE 325 MG (65 MG ELEMENTAL IRON) TAB PO SCH (17:27)
[2017-11-15] MEDS: FUROSEMIDE 40 MG/4 ML VIAL IVP SCH (17:28)
[2017-11-15] MEDS: SODIUM CHLORIDE 0.9% FLUSH 10 ML FLUSH IV FLUSH SCH (17:30)
--- NOTE | 2017-11-15 18:50 | MB ---
cc: Kvng Mae MD DATE: 11/15/2017 HISTORY OF PRESENT ILLNESS: Ms. Funes is a 66-year-old black female, well known to my practice with history of hypertension, mixed systolic and diastolic congestive heart failure, cardiomyopathy, with systolic function, moderate mitral and tricuspid regurgitation, chronic kidney disease, CVA and pulmonary embolism. She developed nausea, vomiting and could not keep her medication down starting on Monday. She also had diarrhea. She was found to be in congestive heart failure. She was severely hypertensive since she could not take her medications. She has not had any chest pain. PAST MEDICAL HISTORY: 1. Positive for congestive heart failure, systolic and diastolic. 2. Cardiomyopathy with dysfunction, hypertension, chronic kidney disease, moderate mitral regurgitation, moderate tricuspid regurgitation, hypertension, pulmonary hypertension, CVA hospitalized on 08/10/2012, history of pulmonary embolism. MEDICATIONS: Include Coumadin, senna, furosemide, potassium, aspirin, iron, carvedilol and enalapril. The patient developed angioedema with stress test. ALLERGIES: IODINE, SULFAMETHOXAZOLE, TRIMETHOPRIM, HYDRALAZINE. THE PATIENT IS INTOLERANT OF STATINS SINCE SHE HAD ALSO A REACTION TO ENTRESTO. SOCIAL HISTORY: The patient does not smoke. She does not drink alcohol. She is accompanied by her . FAMILY HISTORY: Positive for heart disease in her father. REVIEW OF SYSTEMS: Otherwise negative. PHYSICAL EXAMINATION: VITAL SIGNS: Blood pressure 143/107, pulse 82 and regular. HEENT: Negative. NECK: 2+ carotid upstrokes, no bruits. LUNGS: Clear. HEART: Regular with 2/6 systolic murmur, no gallop. ABDOMEN: Soft, no bruits. EXTREMITIES: Without edema, 2+ distal pulses. NEUROLOGIC: Grossly nonfocal. ECHOCARDIOGRAM: Was reviewed and showed normal sinus rhythm, borderline left axis, PVCs, nonspecific T-wave changes. LABORATORY DATA: Hemoglobin 12.7, potassium 5.2, creatinine 1.7, AST 46, ALT 65. Troponin 0.07. CK 130. BNP greater than 5000. DIAGNOSES: 1. Acute exacerbation of chronic systolic and diastolic congestive heart failure. 2. Uncontrolled hypertension. 3. Nausea and vomiting. 4. Diarrhea. 5. Cardiomyopathy with significant systolic dysfunction. 6. Moderate mitral regurgitation. 7. Tricuspid regurgitation. 8. Chronic kidney disease. 9. History of cerebrovascular accident. 10. History of pulmonary embolism. PLAN: Ms. Funes will continue therapy for congestive heart failure. We will closely monitor her renal function. We will continue anticoagulation with warfarin. We will restart her p.o. medications and continue to titrate blood pressure control as needed. I will follow her for cardiology during hospitalization. The plan was discussed with the patient and her . MD SAJAN Torres/ROB , 06:05 PM , 06:49 PM
[2017-11-16] VITALS (29 sets, daily range): BP systolic 108–139; BP diastolic 73–106; PULSE 53–74; RESP 16–18; TEMP 97.7–98.3; O2SAT 95–99
[2017-11-16 06:42] LABS: AUTOMATED NEUTROPHIL # 2.9 TH/MM3 (1.8-7.7); BASOPHIL # 0.1 TH/MM3 (0-0.2); BASOPHIL % 1.2 % (0.0-2.0); EOSINOPHIL # 0.1 TH/MM3 (0-0.4); EOSINOPHIL % 2.7 % (0.0-4.0); HEMATOCRIT 32.6 % (35.0-46.0); HEMOGLOBIN 10.7 GM/DL (11.6-15.3); LYMPH % 27.8 % (9.0-44.0); LYMPHOCYTE # 1.4 TH/MM3 (1.0-4.8); MEAN CELL VOLUME 87.5 FL (80.0-100.0); MEAN CORPUSCULAR HEMOGLOBIN 28.6 PG (27.0-34.0); MEAN CORPUSCULAR HGB CONC 32.7 % (32.0-36.0); MEAN PLATELET VOLUME 10.5 FL (7.0-11.0); MONO % 10.8 % (0.0-8.0); MONOCYTE # 0.5 TH/MM3 (0-0.9); NEUT % 57.5 % (16.0-70.0); PLATELET COUNT 171 TH/MM3 (150-450); RED BLOOD COUNT 3.73 MIL/MM3 (4.00-5.30); RED CELL DISTRIBUTION WIDTH 17.1 % (11.6-17.2)
[2017-11-16 06:51] LABS: INTERNATIONAL NORMALIZED RATIO 2.7 RATIO
[2017-11-16 07:12] LABS: ALBUMIN 2.8 GM/DL (3.4-5.0); ALKALINE PHOSPHATASE 41 U/L (45-117); ALT (GPT) 59 U/L (10-53); AST (GOT) 38 U/L (15-37); BICARBONATE 28.1 MEQ/L (21.0-32.0); BLOOD UREA NITROGEN 27 MG/DL (7-18); CHLORIDE 107 MEQ/L (98-107); CREATININE 1.58 MG/DL (0.50-1.00); GLOMERULAR FILTRATION RATE 40 ML/MIN (>89); GLUCOSE,RANDOM 74 MG/DL (74-106); SODIUM (NA) 142 MEQ/L (136-145); TOTAL BILIRUBIN ADULT 1.3 MG/DL (0.2-1.0); TOTAL PROTEIN 5.5 GM/DL (6.4-8.2)
[2017-11-16] MEDS ORDERED: POTASSIUM CHLORIDE 10 MEQ CONTROLLED RELEASE TAB PO ONE (07:30)
[2017-11-16] MEDS: SODIUM CHLORIDE 0.9% FLUSH 10 ML FLUSH IV FLUSH SCH ×2 (09:00→22:09)
[2017-11-16] MEDS: FUROSEMIDE 40 MG/4 ML VIAL IVP SCH ×2 (09:02→17:41)
[2017-11-16] MEDS: ENALAPRIL MALEATE 2.5 MG TAB PO SCH (09:03)
[2017-11-16] MEDS: CARVEDILOL 12.5 MG TAB PO SCH ×2 (09:03→22:08)
[2017-11-16] MEDS: ASPIRIN EC 81 MG TABEC PO SCH (09:03)
[2017-11-16] MEDS: FERROUS SULFATE 325 MG (65 MG ELEMENTAL IRON) TAB PO SCH ×2 (09:04→17:43)
--- NOTE | 2017-11-16 12:41 | HHI.HP ---
[facility] Service Family Medicine Primary Care Physician [facility] Hakeem Monreal MD Admission Diagnosis Diagnoses: (1) CHF exacerbation Diagnosis: Principal (2) Nausea & vomiting Diagnosis: Principal (3) Hypertension Diagnosis: Principal (4) Diarrhea Diagnosis: Principal (5) History of CVA (cerebrovascular accident) Diagnosis: Principal (6) FEN/PPX Diagnosis: Principal International Travel<30 Days: No Contact w/Intl Traveler<30days: No Known Affected Area: No History of Present Illness Ms Funes is a 66-year-old female with a past medical history significant for hypertension, CHF presenting to the ED due to intractable nausea and vomiting found to be in a CHF exacerbation. PCP is Dr. Monreal. Ms Funes reports that she started to have vomiting and diarrhea on Monday and she vomited once with several episodes of diarrhea. Vomitus and diarrhea were nonbloody. On Monday she vomited a total of 3 times and continued to have diarrhea. She reports that she has vomited once on Monday as well. She has not been able to keep anything down, including liquids and her medications. She denies any sick contacts. She denies any increase in her fluid intake. She denies chest pain, feeling short of breath, increase in swelling. She reports that her last echo was about 6 months ago and she is due to have this redone next week. She is followed by cardiology. Her dobie man is Dr. Mae. Today, Ms Funes is still on her NTG drip. she had not been able to take her po meds at home and her pressures were very high so she needed iv meds initially but is back to her norm now and feels well so her drip will be stopped. She wishes to go home soon, hopefully tomorrow as she has had so much improvement Review of Systems Other Constitutional: DENIES: Fever, Chills Eyes: DENIES: Vision loss Ears, nose, mouth, throat: DENIES: Vertigo Respiratory: COMPLAINS OF: Cough, Shortness of breath Cardiovascular: DENIES: Chest pain Gastrointestinal: COMPLAINS OF: Abdominal pain, Diarrhea, Nausea, Vomiting Genitourinary: DENIES: Urinary frequency, Urgency Musculoskeletal: DENIES: Joint Swelling Integumentary: DENIES: Rash Immunologic/allergic: DENIES: Urticaria Neurologic: DENIES: Headache Psychiatric: DENIES: Confusion, Mood changes Past Family Social History Past Medical History Hypertension CHF Bronchitis CVA Mitral valve prolapse Past Surgical History None Allergies: Coded Allergies: iodine (Unverified Allergy, Severe, sneezing, chest tightness, 11/15/17) potassium iodide (Unverified Allergy, Severe, sneezing, chest tightness, ) povidone-iodine (Unverified Allergy, Severe, sneezing, chest tightness, 11/15/17) sodium iodide (Unverified Allergy, Severe, sneezing, chest tightness, ) sodium iodide (Unverified Allergy, Severe, sneezing, chest tightness, ) sulfamethoxazole (Unverified Allergy, Intermediate, abdominal pain, 11/15/17 ) trimethoprim (Unverified Allergy, Intermediate, abdominal pain, 11/15/17) hydralazine (Verified Allergy, Unknown, Edema, 11/15/17) Uncoded Allergies: Statins (Allergy, Unknown, 08/18/17) Family History Father: of heart disease Mother: of cancer Sibling(s): Sisters, all , 2 of cancer, 2 of heart disease 2 brothers, of heart disease 1 brother, alive, has lung cancer Social History Marital status: Occupation: 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[employer]; 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, 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, 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, 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 vapors: None Smoking: Never Alcohol: Never Illicit or illegal prescription medication use: Never Physical Exam Vital Signs Vital Signs Date Time Temp Pulse Resp B/P (MAP) Pulse Ox O2 Delivery O2 Flow Rate FiO2 11/16/17 10:15 21 11/16/17 09:01 97.7 66 18 137/106 (116) 95 11/16/17 07:01 57 11/16/17 06:00 64 11/16/17 05:00 54 11/16/17 04:00 54 11/16/17 03:50 97.9 56 17 130/94 (106) 95 11/16/17 03:00 53 11/16/17 02:17 55 11/16/17 01:09 54 117/78 11/16/17 01:00 56 11/16/17 00:00 54 11/15/17 23:00 60 5/2/18 23:00 97.6 60 16 119/87 (98) 96 11/15/17 22:00 58 11/15/17 21:00 66 11/15/17 20:56 66 111/79 11/15/17 20:51 97.8 61 18 111/75 (87) 95 11/15/17 20:49 61 102/67 11/15/17 20:00 62 11/15/17 19:00 66 11/15/17 18:00 75 11/15/17 18:00 80 127/92 11/15/17 17:00 82 11/15/17 16:20 70 153/106 11/15/17 16:00 84 11/15/17 15:20 76 144/111 11/15/17 15:19 97.6 75 14 143/107 (119) 11/15/17 15:00 75 146/108 11/15/17 15:00 72 11/15/17 14:55 11/15/17 14:25 78 143/108 (120) 11/15/17 14:11 82 144/109 11/15/17 13:33 78 142/111 (121) 11/15/17 13:24 92 154/120 11/15/17 13:03 82 142/115 (124) Physical Exam GENERAL: This is a well-nourished, well-developed patient, in no apparent distress. talkative and a good historian SKIN: No rashes, ecchymoses or lesions. Cool and dry. HEAD: Atraumatic. Normocephalic. No temporal or scalp tenderness. EYES: Pupils equal round and reactive. Extraocular motions intact. No scleral icterus. No injection or drainage. ENT: Nose without bleeding, purulent drainage or septal hematoma. Airway patent. NECK: Trachea midline. No JVD or lymphadenopathy. Supple, nontender, no meningeal signs. CARDIOVASCULAR: Regular rate and rhythm, 2/6 AMARJIT RESPIRATORY: Clear to auscultation. Breath sounds equal bilaterally. No wheezes , rales, or rhonchi. No crackles at lung bases. GASTROINTESTINAL: Abdomen soft, non-tender, nondistended. No hepato-splenomegaly , or palpable masses. No guarding. MUSCULOSKELETAL: Extremities without clubbing, cyanosis. No lower extremity edema. No joint tenderness, effusion, or edema noted. No calf tenderness. Negative Homans sign bilaterally. NEUROLOGICAL: Awake and alert. Cranial nerves II through XII intact. Motor and sensory grossly within normal limits. Normal speech. Laboratory Laboratory Tests Test 11/15/17 14:26 11/16/17 05:15 11/16/17 05:23 Magnesium Level 2.1 B-Type Natriuretic Peptide GREATER THAN 5000 1690 Blood Urea Nitrogen 27 Creatinine 1.58 Random Glucose 74 Total Protein 5.5 Albumin 2.8 Calcium Level 8.0 Alkaline Phosphatase 41 Aspartate Amino Transf (AST/SGOT) 38 Alanine Aminotransferase (ALT/SGPT) 59 Total Bilirubin 1.3 Sodium Level 142 Potassium Level 3.3 Chloride Level 107 Carbon Dioxide Level 28.1 Anion Gap 7 Estimat Glomerular Filtration Rate 40 White Blood Count 5.0 Red Blood Count 3.73 Hemoglobin 10.7 Hematocrit 32.6 Mean Corpuscular Volume 87.5 Mean Corpuscular Hemoglobin 28.6 Mean Corpuscular Hemoglobin Concent 32.7 Red Cell Distribution Width 17.1 Platelet Count 171 Mean Platelet Volume 10.5 Neutrophils (%) (Auto) 57.5 Lymphocytes (%) (Auto) 27.8 Monocytes (%) (Auto) 10.8 Eosinophils (%) (Auto) 2.7 Basophils (%) (Auto) 1.2 Neutrophils # (Auto) 2.9 Lymphocytes # (Auto) 1.4 Monocytes # (Auto) 0.5 Eosinophils # (Auto) 0.1 Basophils # (Auto) 0.1 CBC Comment DIFF FINAL Differential Comment Prothrombin Time 27.0 Prothromb Time International Ratio 2.7 Result Diagram: 11/16/17 0523 11/16/17 0515 Imaging Last 24 hours Impressions Chest X-Ray 11/15/17 0954 Signed Impressions: Service Date/Time: Wednesday, November 15, 2017 10:31 - CONCLUSION: 1. Stable atelectasis/scarring in the left lung base. 2. Compensated cardiomegaly. MD ePg Gillespie VTE Risk Assessment Peg VTE Risk Assessment: No/Low Risk (score <= 1) Caprini Risk Assessment Model Point Value = 1 Point Value = 2 Point Value = 3 Point Value = 5 Age 41-60 Minor surgery BMI > 25 kg/m2 Swollen legs Varicose veins or History of unexplained or recurrent spontaneous Oral contraceptives or hormone replacement Sepsis (< 1 month) Serious lung disease, including pneumonia (< 1 month) Abnormal pulmonary function Acute myocardial infarction Congestive heart failure (< 1 month) History of inflammatory bowel disease Medical patient at bed rest Age 61-74 Arthroscopic surgery Major open surgery (> 45 min) Laparoscopic surgery (> 45 min) Malignancy Confined to bed (> 72 hours) Immobilizing plaster cast Central venous access Age >= 75 History of VTE Family history of VTE Factor V Leiden Prothrombin [id number] Lupus anticoagulant Anticardiolipin antibodies Elevated serum homocysteine Heparin-induced thrombocytopenia Other congenital or acquired thrombophilia Stroke (< 1 month) Elective arthroplasty Hip, pelvis, or leg fracture Acute spinal cord injury (< 1 month) Prophylaxis Regimen Total Risk Factor Score Risk Level Prophylaxis Regimen 0-1 Low Early ambulation 2 Moderate Order ONE of the following: *Sequential Compression Device (SCD) *Heparin 5000 units SQ BID 3-4 Higher Order ONE of the following medications: *Heparin 5000 units SQ TID *Enoxaparin/Lovenox 40 mg SQ daily (WT < 150 kg, CrCl > 30 mL/min) *Enoxaparin/Lovenox 30 mg SQ daily (WT < 150 kg, CrCl > 10-29 mL/min) *Enoxaparin/Lovenox 30 mg SQ BID (WT < 150 kg, CrCl > 30 mL/min) AND/OR *Sequential Compression Device (SCD) 5 or more Highest Order ONE of the following medications: *Heparin 5000 units SQ TID (Preferred with Epidurals) *Enoxaparin/Lovenox 40 mg SQ daily (WT < 150 kg, CrCl > 30 mL/min) *Enoxaparin/Lovenox 30 mg SQ daily (WT < 150 kg, CrCl > 10-29 mL/min) *Enoxaparin/Lovenox 30 mg SQ BID (WT < 150 kg, CrCl > 30 mL/min) AND *Sequential Compression Device (SCD) Assessment and Plan Assessment and Plan Patient is a 66-year-old admitted due to intractable nausea and vomiting found to have a CHF exacerbation. Cardiology has been consulted. Problem List: (1) CHF exacerbation ICD Codes: I50.9 - Heart failure, unspecified Plan: Patient found to have acute CHF exacerbation with BNP greater than 5000, currently asymptomatic. No significant crackles or edema appreciated on exam. -Lasix 40 mg IV twice daily -Last echo with EF of 20-25% from 08/11/17 -Echo ordered -Continue to trend BNP, can hold as she is clinically so much better -Fluid restriction of 2 L daily -Monitor daily weights -Cardiology consulted, appreciate recommendations -probably had worsening CHF with very high BPs. (2) Hypertension ICD Codes: I10 - Essential (primary) hypertension Status: Chronic Plan: BP found to be elevated and resistant to oral medications especially as she was vomiting them at home -Patient started on nitro drip but should be able to stop today -Continue to monitor blood pressure but these are better today -Continue oral home blood pressure medications (3) Diarrhea ICD Codes: R19.7 - Diarrhea, unspecified Plan: Patient expresses symptoms consistent with gastroenteritis -Will check stool studies better now with no further vomiting or diarrhea (4) History of CVA (cerebrovascular accident) ICD Codes: Z86.73 - Personal history of transient ischemic attack (TIA), and cerebral infarction without residual deficits Plan: Pt with hx of CVA on coumadin -Serotherapeutic on admission at 3.1 -Will hold today and check INR tomorrow and adjust dosing as indicated (5) FEN/PPX Plan: Fluid: Restrict fluid intake to less than 2 L daily Electrolytes: Within normal limits, continue to monitor and replete as needed Nutrition: Heart healthy diet as tolerated DVT PPX: Patient therapeutic on Coumadin, continue to monitor INR and adjust Coumadin dosing as needed (6) Nausea & vomiting ICD Codes: R11.2 - Nausea with vomiting, unspecified Plan: Patient was given a dose of Zofran while in the ED and reports that this worked well. -Zofran 4 mg IV every 6 hours as needed for nausea or vomiting Problem Qualifiers (1) CHF exacerbation: Qualified Codes: I50.43 - Acute on chronic combined systolic (congestive) and diastolic (congestive) heart failure (2) Nausea & vomiting: Qualified Codes: R11.2 - Nausea with vomiting, unspecified (3) Hypertension: Qualified Codes: I10 - Essential (primary) hypertension (4) Diarrhea: Qualified Codes: R19.7 - Diarrhea, unspecified Isela Cardenas MD November 16, 2017 12:41
--- NOTE | 2017-11-16 14:41 | EKG ---
Date Performed: 11/15/2017 Time Performed: 10:12:14 PTAGE: 66 years EKG: Sinus rhythm WITH OCCASIONAL VENTRICULAR PREMATURE COMPLEXES LEFT ATRIAL ENLARGEMENT BORDERLINE LEFT AXIS DEVIATI ON NONSPECIFIC T-WAVE ABNORMALITY ABNORMAL ECG PREVIOUS TRACING : 08/10/2017 23.23 Since the prior tracing, there has been some improvement in the lateral T-wave changes and the PVCs are new. There is otherwise no significant serial change. DOCTOR: Gianna Wise Interpretating Date/Time 11/16/2017 14:40:13
[2017-11-16] MEDS: WARFARIN SOD 4 MG TAB PO SCH (16:17)
--- NOTE | 2017-11-16 18:02 | PD.CARD.PN ---
Subjective Subjective Remarks No CP or SOB, feels much better, able to keep meds down Objective Medications Current Medications Medications (Trade) Dose Ordered Sig/James Route Start Time Stop Time Status Last Admin (NS Flush) 2 ml BID IV FLUSH 11/15/17 21:00 11/16/17 09:00 (NS Flush) 2 ml UNSCH PRN IV FLUSH 11/15/17 14:15 (Lasix Inj) 40 mg BID@09,18 IVP 11/15/17 18:00 11/16/17 17:41 (Ecotrin Ec) 81 mg DAILY PO 11/16/17 09:00 11/16/17 09:03 (Coreg) 25 mg BID PO 11/16/17 09:00 11/16/17 09:03 (Vasotec) 2.5 mg DAILY PO 11/16/17 09:00 11/16/17 09:03 (Ferrous Sulfate) 325 mg BIDPC PO 11/15/17 18:00 11/16/17 17:43 (Zofran Inj) 4 mg Q6HR PRN IV PUSH 11/15/17 14:15 Pharmacy Profile Note 0 ml @ 0 mls/hr UNSCH OTHER 11/16/17 14:15 (Coumadin) 4 mg DAILY@1600 PO 11/16/17 16:00 11/16/17 16:17 Vital Signs / I&O Vital Signs Date Time Temp Pulse Resp B/P (MAP) Pulse Ox O2 Delivery O2 Flow Rate FiO2 11/16/17 16:01 62 11/16/17 15:45 98.3 61 18 116/82 (93) 98 11/16/17 15:00 59 11/16/17 14:01 61 11/16/17 13:00 72 11/16/17 12:00 58 11/16/17 11:55 97.9 61 18 108/73 (85) 96 11/16/17 11:00 65 11/16/17 10:15 21 11/16/17 10:00 117/82 (94) 11/16/17 10:00 74 11/16/17 09:01 97.7 66 18 137/106 (116) 95 11/16/17 09:00 62 11/16/17 08:00 58 11/16/17 07:01 57 11/16/17 06:00 64 11/16/17 05:00 54 11/16/17 04:00 54 11/16/17 03:50 97.9 56 17 130/94 (106) 95 11/16/17 03:00 53 11/16/17 02:17 55 11/16/17 01:09 54 117/78 11/16/17 01:00 56 11/16/17 00:00 54 11/15/17 23:00 60 11/15/17 23:00 97.6 60 16 119/87 (98) 96 11/15/17 22:00 58 11/15/17 21:00 66 11/15/17 20:56 66 111/79 11/15/17 20:51 97.8 61 18 111/75 (87) 95 11/15/17 20:49 61 102/67 11/15/17 20:00 62 11/15/17 19:00 66 11/15/17 18:00 75 11/15/17 18:00 80 127/92 I/O 11/15/17 11/15/17 11/15/17 11/16/17 11/16/17 11/16/17 07:00 15:00 23:00 07:00 15:00 23:00 Intake Total 26 ml 360 ml 134 ml Output Total 500 ml Balance 26 ml -140 ml 134 ml Intake Oral 360 ml IV Total 26 ml 134 ml Output Urine Total 500 ml # Voids 2 Physical Exam GENERAL: In NAD SKIN: Warm and dry. HEAD: Normocephalic. EYES: No scleral icterus. No injection or drainage. NECK: Supple, trachea midline. No JVD or lymphadenopathy. CARDIOVASCULAR: Regular rate and rhythm without murmurs, gallops, or rubs. RESPIRATORY: Breath sounds equal bilaterally. No accessory muscle use. GASTROINTESTINAL: Abdomen soft, non-tender, nondistended. MUSCULOSKELETAL: No cyanosis, or edema. Laboratory Laboratory Tests Test 11/16/17 05:15 11/16/17 05:23 Blood Urea Nitrogen 27 MG/DL Creatinine 1.58 MG/DL Random Glucose 74 MG/DL Total Protein 5.5 GM/DL Albumin 2.8 GM/DL Calcium Level 8.0 MG/DL Alkaline Phosphatase 41 U/L Aspartate Amino Transf (AST/SGOT) 38 U/L Alanine Aminotransferase (ALT/SGPT) 59 U/L Total Bilirubin 1.3 MG/DL Sodium Level 142 MEQ/L Potassium Level 3.3 MEQ/L Chloride Level 107 MEQ/L Carbon Dioxide Level 28.1 MEQ/L Anion Gap 7 MEQ/L Estimat Glomerular Filtration Rate 40 ML/MIN White Blood Count 5.0 TH/MM3 Red Blood Count 3.73 MIL/MM3 Hemoglobin 10.7 GM/DL Hematocrit 32.6 % Mean Corpuscular Volume 87.5 FL Mean Corpuscular Hemoglobin 28.6 PG Mean Corpuscular Hemoglobin Concent 32.7 % Red Cell Distribution Width 17.1 % Platelet Count 171 TH/MM3 Mean Platelet Volume 10.5 FL Neutrophils (%) (Auto) 57.5 % Lymphocytes (%) (Auto) 27.8 % Monocytes (%) (Auto) 10.8 % Eosinophils (%) (Auto) 2.7 % Basophils (%) (Auto) 1.2 % Neutrophils # (Auto) 2.9 TH/MM3 Lymphocytes # (Auto) 1.4 TH/MM3 Monocytes # (Auto) 0.5 TH/MM3 Eosinophils # (Auto) 0.1 TH/MM3 Basophils # (Auto) 0.1 TH/MM3 CBC Comment DIFF FINAL Differential Comment Prothrombin Time 27.0 SEC Prothromb Time International Ratio 2.7 RATIO B-Type Natriuretic Peptide 1690 PG/ML Assessment and Plan Problem List: (1) Acute exacerbation of congestive heart failure ICD Codes: I50.9 - Heart failure, unspecified Status: Acute (2) Hypertension ICD Codes: I10 - Essential (primary) hypertension Status: Chronic (3) Cardiomyopathy ICD Codes: I42.9 - Cardiomyopathy, unspecified (4) Nausea & vomiting ICD Codes: R11.2 - Nausea with vomiting, unspecified (5) Chronic kidney disease ICD Codes: N18.9 - Chronic kidney disease, unspecified Status: Chronic (6) Diarrhea ICD Codes: R19.7 - Diarrhea, unspecified (7) History of CVA (cerebrovascular accident) ICD Codes: Z86.73 - Personal history of transient ischemic attack (TIA), and cerebral infarction without residual deficits Assessment and Plan Markedly improved. Able to keep BP meds down. BP well controlled. Wean IV antihypertensives. Continue tx for CHF. Monitor renal fx. Continue BP control. Increase activity, PT. Problem Qualifiers (1) Acute exacerbation of congestive heart failure: Qualified Codes: I50.9 - Heart failure, unspecified (2) Hypertension: Qualified Codes: I10 - Essential (primary) hypertension (3) Nausea & vomiting: Qualified Codes: R11.2 - Nausea with vomiting, unspecified (4) Diarrhea: Qualified Codes: R19.7 - Diarrhea, unspecified Kvng Mae MD November 16, 2017 18:02
--- NOTE | 2017-11-16 21:08 | ECHRPT ---
Indication: Heart failure, unspecified CONCLUSIONS The left ventricular systolic function is severely reduced with an estimated ejection fraction in th e range of 25-30%. Wall thickness is normal. Normal left ventricular size. Moderate mitral valve regurgitation. There is moderate tricuspid regurgitation. The estimated pulmonary arterial pressure is 43 mmHg. BP: / HR: Rhythm: Sinus MEASUREMENTS (Male / Female) Normal Values Technical Quality:Good 2D ECHO LV Diastolic Diameter PLAX 6.2 cm 4.2 - 5.9 / 3.9 - 5.3 cm LV Systolic Diameter PLAX 5.7 cm IVS Diastolic Thickness 1.0 cm 0.6 - 1.0 / 0.6 - 0.9 cm LVPW Diastolic Thickness 1.1 cm 0.6 - 1.0 / 0.6 - 0.9 cm LV Relative Wall Thickness 0.3 LVOT Diameter 2.4 cm M-MODE Aortic Root Diameter MM 3.2 cm LA Systolic Diameter MM 4.2 cm LA Ao Ratio MM 1.3 AV Cusp Separation MM 2.2 cm DOPPLER AV Peak Velocity 163.0 cm/s AV Peak Gradient 10.6 mmHg LVOT Peak Velocity 50.3 cm/s LVOT Peak Gradient 1.0 mmHg AV Area Cont Eq pk 1.4 cm MR Peak Velocity 473.5 cm/s MR Peak Gradient 89.7 mmHg TR Peak Velocity 286.0 cm/s TR Peak Gradient 32.7 mmHg Right Atrial Pressure 10.0 mmHg Pulmonary Artery Systolic Pressu 42.7 mmHg Right Ventricular Systolic Press 42.7 mmHg PV Peak Velocity 92.3 cm/s PV Peak Gradient 3.4 mmHg FINDINGS LEFT VENTRICLE The left ventricular systolic function is severely reduced with an estimated ejection fraction in th e range of 25-30%. Wall thickness is normal. Normal left ventricular size. RIGHT VENTRICLE Normal right ventricular size and systolic function. LEFT ATRIUM The left atrial size is normal. RIGHT ATRIUM The right atrial size is normal. ATRIAL SEPTUM Normal atrial septal thickness without atrial level shunting by limited color doppler interrogation. AORTA The aortic root and proximal ascending aorta are normal in size on limited imaging. MITRAL VALVE Moderate mitral valve regurgitation. AORTIC VALVE Trileaflet aortic valve. No aortic valve stenosis or regurgitation. TRICUSPID VALVE There is moderate tricuspid regurgitation. The estimated pulmonary arterial pressure is 42.7 mmHg. PULMONARY VALVE No pulmonary valve regurgitation or stenosis. VESSELS The inferior vena cava is normal in size. PERICARDIUM No pericardial effusion. Kvng Mae MD, FACC (Electronically Signed) Final Date:16 Nov 2017 21:07
[2017-11-17] VITALS (20 sets, daily range): BP systolic 118–139; BP diastolic 85–109; PULSE 50–80; RESP 16–18; TEMP 98–98.3; O2SAT 94–100
[2017-11-17] MEDS ORDERED: cloNIDine HCL 0.1 MG TAB PO PRN (02:15)
[2017-11-17 06:04] LABS: HEMOGLOBIN 10.7 GM/DL (11.6-15.3); MEAN CELL VOLUME 85.9 FL (80.0-100.0); MEAN CORPUSCULAR HEMOGLOBIN 28.6 PG (27.0-34.0); MEAN CORPUSCULAR HGB CONC 33.4 % (32.0-36.0); MEAN PLATELET VOLUME 10.7 FL (7.0-11.0); PLATELET COUNT 158 TH/MM3 (150-450); RED BLOOD COUNT 3.73 MIL/MM3 (4.00-5.30); RED CELL DISTRIBUTION WIDTH 16.8 % (11.6-17.2); WHITE BLOOD COUNT 4.8 TH/MM3 (4.0-11.0)
[2017-11-17 06:11] LABS: INTERNATIONAL NORMALIZED RATIO 2.6 RATIO; PROTHROMBIN TIME - PATIENT 26.2 SEC (9.8-11.6)
[2017-11-17 06:28] LABS: BICARBONATE 27.2 MEQ/L (21.0-32.0); CALCIUM 8.2 MG/DL (8.5-10.1); CREATININE 1.31 MG/DL (0.50-1.00)
--- NOTE | 2017-11-17 08:29 | HHI.FPPN ---
Subjective Remarks Pt seen and examined this morning. No acute events overnight. BP under better control, diastolic pressure elevated, BP ranging from 110-130s/80-100s. Pt only on oral blood pressure medications. She denies chest pain, shortness of breath, abdominal pain. No additional vomiting or diarrhea. She reports feeling significantly improved this morning and would like to go home today. (Albert Miller MD R3) Objective Vitals Vital Signs Date Time Temp Pulse Resp B/P (MAP) Pulse Ox O2 Delivery O2 Flow Rate FiO2 11/17/17 06:25 50 11/17/17 04:30 52 11/17/17 04:30 56 16 118/85 (96) 94 11/17/17 03:00 56 11/17/17 02:00 80 11/17/17 01:30 62 16 135/100 (112) 94 11/17/17 01:30 64 11/17/17 01:00 56 11/17/17 00:00 56 11/16/17 23:00 60 11/16/17 22:00 62 11/16/17 21:00 58 11/16/17 21:00 58 11/16/17 21:00 63 16 139/102 (114) 96 11/16/17 20:44 99 11/16/17 20:00 58 11/16/17 19:00 60 11/16/17 18:01 58 11/16/17 17:00 62 11/16/17 16:01 62 11/16/17 15:45 98.3 61 18 116/82 (93) 98 11/16/17 15:00 59 11/16/17 14:01 61 11/16/17 13:00 72 11/16/17 12:00 58 11/16/17 11:55 97.9 61 18 108/73 (85) 96 11/16/17 11:00 65 11/16/17 10:15 21 11/16/17 10:00 117/82 (94) 11/16/17 10:00 74 11/16/17 09:01 97.7 66 18 137/106 (116) 95 11/16/17 09:00 62 I/O 11/16/17 11/16/17 11/16/17 11/17/17 11/17/17 11/17/17 07:00 15:00 23:00 07:00 15:00 23:00 Intake Total 360 ml 134 ml 480 ml 240 ml Output Total 500 ml 1300 ml 1800 ml Balance -140 ml 134 ml -820 ml -1560 ml Intake Oral 360 ml 480 ml 240 ml IV Total 134 ml Output Urine Total 500 ml 1300 ml 1800 ml # Voids 5 # Bowel Movements 0 (Albert Miller MD R3) Result Diagram: 11/17/1743911/[id number] Objective Remarks GENERAL: This is a well-nourished, well-developed patient, in no apparent distress. talkative and a good historian SKIN: No rashes, ecchymoses or lesions. Cool and dry. HEAD: Atraumatic. Normocephalic. EYES: Pupils equal round and reactive. Extraocular motions intact. No scleral icterus. No injection or drainage. ENT: Nose without bleeding, purulent drainage or septal hematoma. Airway patent. NECK: Trachea midline. No JVD or lymphadenopathy. Supple, nontender, no meningeal signs. CARDIOVASCULAR: Regular rate and rhythm, 2/6 AMARJIT RESPIRATORY: Clear to auscultation. Breath sounds equal bilaterally. No wheezes , rales, or rhonchi. No crackles at lung bases. GASTROINTESTINAL: Abdomen soft, non-tender, nondistended. No hepato-splenomegaly , or palpable masses. No guarding. MUSCULOSKELETAL: Extremities without clubbing, cyanosis. No lower extremity edema. No joint tenderness, effusion, or edema noted. No calf tenderness. Negative Homans sign bilaterally. NEUROLOGICAL: Awake and alert. Cranial nerves II through XII intact. Motor and sensory grossly within normal limits. Normal speech. (Albert Miller MD R3) A/P Assessment and Plan Patient is a 66-year-old admitted due to intractable nausea and vomiting found to have a CHF exacerbation. Cardiology has been consulted. Discharge Planning Anticipate discharge once pt has been cleared by cariology, likely later today. (Albert Miller MD R3) Attending Attestation Patient seen and examined. Case reviewed and discussed with the resident team. Agree with plan of care as discussed with me and documented in the resident note. she very much wants to go home today and feels back to normal with her heart and GI tract (Isela Cardenas MD) Problem List: (1) CHF exacerbation ICD Codes: I50.9 - Heart failure, unspecified Plan: Patient found to have acute CHF exacerbation with BNP greater than 5000, currently asymptomatic. No significant crackles or edema appreciated on exam. BNP down trending from 5000-->1690-->831 -will resume home dose of lasix: Lasix 40 mg po daily -Echo with EF of 20-25% from 08/11/17 -Echo from 11/16/17 with EF of 2530% -Fluid restriction of 2 L daily -Monitor daily weights -Cardiology consulted, appreciate recommendations -probably had worsening CHF with very high BPs due to inability to keep down medications with acute vomiting (2) Hypertension ICD Codes: I10 - Essential (primary) hypertension Status: Chronic Plan: BP found to be elevated and resistant to oral medications especially as she was vomiting them at home -Patient off nitro drip, BP stable -Continue oral home blood pressure medications (3) History of CVA (cerebrovascular accident) ICD Codes: Z86.73 - Personal history of transient ischemic attack (TIA), and cerebral infarction without residual deficits Plan: Pt with hx of CVA on Coumadin -Pharmacy consulted for Coumadin dosing -Continue to monitor INR (4) Diarrhea ICD Codes: R19.7 - Diarrhea, unspecified Plan: Resolved Patient expresses symptoms consistent with gastroenteritis -Pt with no additional diarrhea while in the hospital (5) Nausea & vomiting ICD Codes: R11.2 - Nausea with vomiting, unspecified Plan: Resolved Patient was given a dose of Zofran while in the ED and reports that this worked well. -Zofran 4 mg IV every 6 hours as needed for nausea or vomiting (6) FEN/PPX Plan: Fluid: Restrict fluid intake to less than 2 L daily Electrolytes: Within normal limits, continue to monitor and replete as needed Nutrition: Heart healthy diet as tolerated DVT PPX: Patient therapeutic on Coumadin, continue to monitor INR and adjust Coumadin dosing as needed (Albert Miller MD R3) Problem Qualifiers (1) CHF exacerbation: Qualified Codes: I50.43 - Acute on chronic combined systolic (congestive) and diastolic (congestive) heart failure (2) Hypertension: Qualified Codes: I10 - Essential (primary) hypertension (3) Diarrhea: Qualified Codes: R19.7 - Diarrhea, unspecified (4) Nausea & vomiting: Qualified Codes: R11.2 - Nausea with vomiting, unspecified Albert Miller MD R3 November 17, 2017 08:29 Isela Cardenas MD November 18, 2017 12:14
[2017-11-17] MEDS: ENALAPRIL MALEATE 2.5 MG TAB PO SCH (08:58)
[2017-11-17] MEDS: FERROUS SULFATE 325 MG (65 MG ELEMENTAL IRON) TAB PO SCH (08:58)
[2017-11-17] MEDS: ASPIRIN EC 81 MG TABEC PO SCH (08:58)
[2017-11-17] MEDS: CARVEDILOL 12.5 MG TAB PO SCH (08:58)
[2017-11-17] MEDS: FUROSEMIDE 40 MG/4 ML VIAL IVP SCH (08:59)
[2017-11-17] MEDS: SODIUM CHLORIDE 0.9% FLUSH 10 ML FLUSH IV FLUSH SCH (08:59)
[2017-11-17] MEDS ORDERED: POTASSIUM CHLORIDE 10 MEQ CONTROLLED RELEASE TAB PO ONE (09:00)
--- NOTE | 2017-11-17 12:42 | HHI.DCPOC ---
Discharge Care Plan Diagnosis: (1) Hypertension (2) Nausea & vomiting (3) CHF exacerbation (4) Diarrhea (5) History of CVA (cerebrovascular accident) Goals to Promote Your Health * To prevent worsening of your condition and complications * To maintain your health at the optimal level Directions to Meet Your Goals Take your medications as prescribed Follow your dietary instruction Follow activity as directed Keep your appointments as scheduled Take your immunizations and boosters as scheduled If your symptoms worsen call your PCP, if no PCP go to Urgent Care Center or Emergency Room Smoking is Dangerous to Your Health. Avoid second hand smoke Call the 24-hour hour crisis hotline for domestic abuse at Albert Miller MD R3 November 17, 2017 12:41
--- NOTE | 2017-11-17 15:29 | PD.CARD.PN ---
Subjective Subjective Remarks No CP or SOB, feels fine, BP controlled on her home meds Objective Medications Current Medications Medications (Trade) Dose Ordered Sig/James Route Start Time Stop Time Status Last Admin (NS Flush) 2 ml BID IV FLUSH 11/15/17 21:00 11/17/17 08:59 (NS Flush) 2 ml UNSCH PRN IV FLUSH 11/15/17 14:15 (Ecotrin Ec) 81 mg DAILY PO 11/16/17 09:00 11/17/17 08:58 (Coreg) 25 mg BID PO 11/16/17 09:00 11/17/17 08:58 (Vasotec) 2.5 mg DAILY PO 11/16/17 09:00 11/17/17 08:58 (Ferrous Sulfate) 325 mg BIDPC PO 11/15/17 18:00 11/17/17 08:58 (Zofran Inj) 4 mg Q6HR PRN IV PUSH 11/15/17 14:15 Pharmacy Profile Note 0 ml @ 0 mls/hr UNSCH OTHER 11/16/17 14:15 (Coumadin) 4 mg DAILY@1600 PO 11/16/17 16:00 11/16/17 16:17 (Catapres) 0.1 mg Q6H PRN PO 11/17/17 02:15 11/17/17 02:17 (Lasix) 40 mg DAILY PO 11/18/17 09:00 Vital Signs / I&O Vital Signs Date Time Temp Pulse Resp B/P (MAP) Pulse Ox O2 Delivery O2 Flow Rate FiO2 11/17/17 13:01 54 11/17/17 12:00 58 11/17/17 11:45 98.1 62 18 123/91 (102) 100 11/17/17 11:00 57 11/17/17 10:00 62 11/17/17 09:01 98.0 66 18 139/109 (119) 97 11/17/17 09:00 64 11/17/17 08:00 52 11/17/17 07:00 52 11/17/17 06:25 50 11/17/17 04:30 52 11/17/17 04:30 56 16 118/85 (96) 94 11/17/17 03:00 56 11/17/17 02:00 80 11/17/17 01:30 62 16 135/100 (112) 94 11/17/17 01:30 64 11/17/17 01:00 56 11/17/17 00:00 56 11/16/17 23:00 60 11/16/17 22:00 62 11/16/17 21:00 58 11/16/17 21:00 58 11/16/17 21:00 63 16 139/102 (114) 96 11/16/17 20:44 99 11/16/17 20:00 58 11/16/17 19:00 60 11/16/17 18:01 58 11/16/17 17:00 62 11/16/17 16:01 62 11/16/17 15:45 98.3 61 18 116/82 (93) 98 I/O 11/16/17 11/16/17 11/16/17 11/17/17 11/17/17 11/17/17 07:00 15:00 23:00 07:00 15:00 23:00 Intake Total 360 ml 134 ml 480 ml 240 ml Output Total 500 ml 1300 ml 1800 ml Balance -140 ml 134 ml -820 ml -1560 ml Intake Oral 360 ml 480 ml 240 ml IV Total 134 ml Output Urine Total 500 ml 1300 ml 1800 ml # Voids 5 # Bowel Movements 0 Physical Exam GENERAL: In NAD SKIN: Warm and dry. HEAD: Normocephalic. EYES: No scleral icterus. No injection or drainage. NECK: Supple, trachea midline. No JVD or lymphadenopathy. CARDIOVASCULAR: Regular rate and rhythm without murmurs, gallops, or rubs. RESPIRATORY: Breath sounds equal bilaterally. No accessory muscle use. GASTROINTESTINAL: Abdomen soft, non-tender, nondistended. MUSCULOSKELETAL: No cyanosis, or edema. Laboratory Laboratory Tests Test 11/17/17 04:40 White Blood Count 4.8 TH/MM3 Red Blood Count 3.73 MIL/MM3 Hemoglobin 10.7 GM/DL Hematocrit 32.0 % Mean Corpuscular Volume 85.9 FL Mean Corpuscular Hemoglobin 28.6 PG Mean Corpuscular Hemoglobin Concent 33.4 % Red Cell Distribution Width 16.8 % Platelet Count 158 TH/MM3 Mean Platelet Volume 10.7 FL Prothrombin Time 26.2 SEC Prothromb Time International Ratio 2.6 RATIO Blood Urea Nitrogen 25 MG/DL Creatinine 1.31 MG/DL Random Glucose 81 MG/DL Calcium Level 8.2 MG/DL Sodium Level 145 MEQ/L Potassium Level 3.2 MEQ/L Chloride Level 107 MEQ/L Carbon Dioxide Level 27.2 MEQ/L Anion Gap 11 MEQ/L Estimat Glomerular Filtration Rate 49 ML/MIN B-Type Natriuretic Peptide 831 PG/ML Assessment and Plan Problem List: (1) Acute exacerbation of congestive heart failure ICD Codes: I50.9 - Heart failure, unspecified Status: Acute (2) Hypertension ICD Codes: I10 - Essential (primary) hypertension Status: Chronic (3) Cardiomyopathy ICD Codes: I42.9 - Cardiomyopathy, unspecified (4) Nausea & vomiting ICD Codes: R11.2 - Nausea with vomiting, unspecified (5) Chronic kidney disease ICD Codes: N18.9 - Chronic kidney disease, unspecified Status: Chronic (6) Diarrhea ICD Codes: R19.7 - Diarrhea, unspecified (7) History of CVA (cerebrovascular accident) ICD Codes: Z86.73 - Personal history of transient ischemic attack (TIA), and cerebral infarction without residual deficits Assessment and Plan No new cardiac issues. BP now well controlled on her home meds. Continue tx for CHF. Increase activity. OK to discharge home. F/u w me as scheduled next week. Problem Qualifiers (1) Acute exacerbation of congestive heart failure: Qualified Codes: I50.9 - Heart failure, unspecified (2) Hypertension: Qualified Codes: I10 - Essential (primary) hypertension (3) Nausea & vomiting: Qualified Codes: R11.2 - Nausea with vomiting, unspecified (4) Diarrhea: Qualified Codes: R19.7 - Diarrhea, unspecified Kvng Mae MD November 17, 2017 15:29
[2017-11-17] MEDS: WARFARIN SOD 4 MG TAB PO SCH (16:00)
[2017-11-18] MEDS ORDERED: FUROSEMIDE 40 MG TAB PO SCH (09:00)
== END 2017-11-17 16:58 | disposition home or self-care (01) | DRG 292 ==
LOC: NEPC 09:37 → NEDA 13:21 → HCIS 14:53
PROVIDERS: ADMIT Family Medicine; ATTEND Family Medicine
DX: I50.43 Acute on chronic combined systolic (congestive) and diastolic (congestive) heart failure (principal); I13.0 Hypertensive heart and chronic kidney disease with heart failure and stage 1 through stage 4 chronic kidney disease, or unspecified chronic kidney disease; I42.9 Cardiomyopathy, unspecified; Z79.01 Long term (current) use of anticoagulants; I16.1 Hypertensive emergency; I34.1 Nonrheumatic mitral (valve) prolapse; E07.9 Disorder of thyroid, unspecified; K52.9 Noninfective gastroenteritis and colitis, unspecified; N18.9 Chronic kidney disease, unspecified; Z86.73 Personal history of transient ischemic attack (TIA), and cerebral infarction without residual deficits; Z86.711 Personal history of pulmonary embolism; Z88.2 Allergy status to sulfonamides; Z88.8 Allergy status to other drugs, medicaments and biological substances; Z79.82 Long term (current) use of aspirin
CPT/HCPCS: 71045; 80048; 80053; 82550; 82552; 83735; 83880; 84484; 85025; 85027; 85610; 85730; 93005; 93306; 96374; 96375; J1940; J2405

== ENCOUNTER 2017-12-09 03:18 | Emergency (ER) | payer MEDICARE ==
[~2017-12-09 03:18] MED LIST changes: -ALBUAER3 INH; -AMLO10TA2 PO; -ASPI81TA23 PO; -CARV12.5 PO; -ENAL10TA PO; +ENAL2.5T PO; -ENAL20TA PO; -ENOX120P SQ; -FERR325T18 PO; -HYDR25TA5 PO; -KLYTECL PO; -ONETAB10 PO; -OXYC-392 PO; -SIMV10TA PO; -SPIR25 PO; -WARF-20 PO
[2017-12-09 03:20] VITALS: PULSE 102; RESP 18; TEMP 97.6; O2SAT 98
[2017-12-09 03:26] VITALS: BP 150/119
[2017-12-09] MEDS ORDERED: PANTOPRAZOLE SODIUM 40 MG VIAL IV PUSH ONE (04:30)
[2017-12-09] MEDS ORDERED: METOCLOPRAMIDE INJ 10 MG in SODIUM CHLORIDE 0.9% INJ 50 ML IV ONE (04:30)
[2017-12-09] MEDS ORDERED: FAMOTIDINE 20 MG/2 ML VIAL IV PUSH SCH (04:30)
--- NOTE | 2017-12-09 04:30 | PD ---
HPI Chief Complaint: GI Complaint Time Seen by Provider: 03:33 Travel History International Travel<30 days: No Contact w/Intl Traveler<30days: No Traveled to known affect area: No History of Present Illness HPI Patient is a 67-year-old female coming in saying she is having 3 days of nausea and vomiting she is unable to keep anything down she has not taken anything to alleviate the symptoms. I asked she is taking [id number] Pepto-Bismol or Tums or [place] and she reports an inability to keep anything down so she nothing has been tried to stop the vomiting and abdominal pain.. She was just recently in the hospital for similar 2 weeks ago worked up ruled out cardiac reynolds and discharged home she saw Dr. 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 She reports a distant history of ulcer diagnosed many years ago. Her pain is localized to the epigastrium and nausea and vomiting repeated 3 days not getting better getting worse PFSH Past Medical History Hx Anticoagulant Therapy: Yes Arthritis: Yes Asthma: No Autoimmune Disease: No Anxiety: No Depression: No Heart Rhythm Problems: Yes (arrhythmia) Cancer: No Cardiovascular Problems: Yes High Cholesterol: No Chest Pain: Yes Congestive Heart Failure: Yes COPD: Yes (Chronic Bronchitis) Cerebrovascular Accident: Yes (July 2017 - Slurred speach) Diabetes: No Diminished Hearing: No Endocrine: Yes Gastrointestinal Disorders: Yes GERD: No Genitourinary: No Hiatal Hernia: No Hypertension: Yes Immune Disorder: No Musculoskeletal: No Neurologic: Yes Psychiatric: No Reproductive: No Respiratory: Yes Immunizations Current: Yes Sleep Apnea: No Thyroid Disease: Yes Ulcer: Yes Menopausal: Yes Past Surgical History Surgical History: No Previous Surgery Social History Alcohol Use: No Tobacco Use: No Substance Use: No Allergies-Medications (Allergen,Severity, Reaction): Coded Allergies: iodine (Unverified Allergy, Severe, sneezing, chest tightness, 12/09/17) potassium iodide (Unverified Allergy, Severe, sneezing, chest tightness, ) povidone-iodine (Unverified Allergy, Severe, sneezing, chest tightness, ) sodium iodide (Unverified Allergy, Severe, sneezing, chest tightness, 12/09) sodium iodide (Unverified Allergy, Severe, sneezing, chest tightness, 12/09) sulfamethoxazole (Unverified Allergy, Intermediate, abdominal pain, ) trimethoprim (Unverified Allergy, Intermediate, abdominal pain, 12/09/17) hydralazine (Verified Allergy, Unknown, Edema, 12/09/17) Uncoded Allergies: Statins (Allergy, Unknown, 08/18/17) Reported Meds & Prescriptions Reported Meds & Active Scripts Active Nexium (Esomeprazole DR) 40 Mg Capdr 40 Mg PO DAILY Reglan (Metoclopramide HCl) 10 Mg Tab 10 Mg PO QID Pepcid (Famotidine) 20 Mg Tab 20 Mg PO BID Zofran Odt (Ondansetron Odt) 4 Mg Tab 4 Mg SL Q6HR PRN Coumadin (Warfarin) 4 Mg Tab 4 Mg PO DAILY@1600 Gnp Senna Plus 8.6-50 mg (Sennosides-Docusate Sodium) 8.6 Mg-50 Mg Tab 1 Tab PO BID PRN 30 Days Furosemide 40 Mg Tab 40 Mg PO DAILY 30 Days Potassium Chloride Microencaps 20 Meq Tab 20 Meq PO DAILY [address] (Aspirin) 81 Mg Tabdr 81 Mg PO DAILY 30 Days Ferosul (Ferrous Sulfate) 325 Mg (65 Mg Iron) Tablet 325 Mg PO BIDPC 30 Days Carvedilol 25 Mg Tab 25 Mg PO BID Reported Enalapril (Enalapril Maleate) 2.5 Mg Tab 2.5 Mg PO DAILY Review of Systems Except as stated in HPI: all other systems reviewed are Neg Gastrointestinal: Positive: Nausea, Vomiting, Abdominal Pain Physical Exam Narrative GENERAL: SKIN: Warm and dry. HEAD: Atraumatic. Normocephalic. EYES: Pupils equal and round. No scleral icterus. No injection or drainage. ENT: No nasal bleeding or discharge. Mucous membranes pink and moist. NECK: Trachea midline. No JVD. CARDIOVASCULAR: Regular rate and rhythm. RESPIRATORY: No accessory muscle use. Clear to auscultation. Breath sounds equal bilaterally. GASTROINTESTINAL: Abdomen epigastric pain MUSCULOSKELETAL: Extremities without clubbing, cyanosis, or edema. No obvious deformities. NEUROLOGICAL: Awake and alert. No obvious cranial nerve deficits. Motor grossly within normal limits. Five out of 5 muscle strength in the arms and legs. Normal speech. PSYCHIATRIC: Appropriate mood and affect; insight and judgment normal. Data Data Last Documented VS Vital Signs Date Time Temp Pulse Resp B/P (MAP) Pulse Ox O2 Delivery O2 Flow Rate FiO2 12/09/17 06:43 12/09/17 06:26 85 18 100 Nasal Cannula 2.00 12/09/17 03:20 97.6 Orders Orders Metoclopramide Inj (Reglan Inj) (12/09/17 04:30) Famotidine Inj (Pepcid Inj) (12/09/17 04:30) Pantoprazole Inj (Protonix Inj) (12/09/17 04:30) Hydralazine Inj (Apresoline Inj) (12/09/17 05:45) Labetalol Inj (Trandate Inj) (12/09/17 06:00) Complete Blood Count With Diff (12/09/17 05:56) Comprehensive Metabolic Panel (12/09/17 05:56) Ed Discharge Order (12/09/17 07:12) Labs Laboratory Tests Test 12/09/17 06:05 White Blood Count 4.7 TH/MM3 Red Blood Count 4.67 MIL/MM3 Hemoglobin 13.1 GM/DL Hematocrit 40.3 % Mean Corpuscular Volume 86.2 FL Mean Corpuscular Hemoglobin 28.1 PG Mean Corpuscular Hemoglobin Concent 32.6 % Red Cell Distribution Width 15.3 % Platelet Count 294 TH/MM3 Mean Platelet Volume 10.8 FL Neutrophils (%) (Auto) 70.0 % Lymphocytes (%) (Auto) 21.6 % Monocytes (%) (Auto) 7.6 % Eosinophils (%) (Auto) 0.2 % Basophils (%) (Auto) 0.6 % Neutrophils # (Auto) 3.3 TH/MM3 Lymphocytes # (Auto) 1.0 TH/MM3 Monocytes # (Auto) 0.4 TH/MM3 Eosinophils # (Auto) 0.0 TH/MM3 Basophils # (Auto) 0.0 TH/MM3 CBC Comment DIFF FINAL Differential Comment Blood Urea Nitrogen 24 MG/DL Creatinine 1.91 MG/DL Random Glucose 130 MG/DL Total Protein 7.1 GM/DL Albumin 3.5 GM/DL Calcium Level 9.0 MG/DL Alkaline Phosphatase 48 U/L Aspartate Amino Transf (AST/SGOT) 22 U/L Alanine Aminotransferase (ALT/SGPT) 21 U/L Total Bilirubin 1.3 MG/DL Sodium Level 142 MEQ/L Potassium Level 4.1 MEQ/L Chloride Level 104 MEQ/L Carbon Dioxide Level 24.8 MEQ/L Anion Gap 13 MEQ/L Estimat Glomerular Filtration Rate 32 ML/MIN MDM Medical Decision Making Medical Screen Exam Complete: Yes Emergency Medical Condition: Yes Medical Record Reviewed: Yes Differential Diagnosis Gastritis versus pancreatitis versus gallbladder disease versus GERD versus Grullon's esophagitis Narrative Course Pt feels better after PO and IV antiacids reviewed labs and feel pt is able to be discharged with antiacid Rxs and follow up GI outpt Diagnosis Primary Impression: Gastritis Qualified Codes: K29.70 - Gastritis, unspecified, without bleeding Additional Instructions: Follow-up with your gastroenterology appointment take the Pepcid and the Zofran as needed. You may take the Reglan as well. But do not take the Reglan and Zofran at the same time as the function in the same way Scripts Esomeprazole DR (Nexium) 40 Mg Capdr 40 MG PO DAILY, #20 CAP 2 Refills Prov: Rachid Chen MD 12/09/17 Metoclopramide (Reglan) 10 Mg Tab 10 MG PO QID, #20 TAB 2 Refills Prov: Rachid Chen MD 12/09/17 Famotidine (Pepcid) 20 Mg Tab 20 MG PO BID, #30 TAB 0 Refills Prov: Rachid Chen MD 12/09/17 Ondansetron Odt (Zofran Odt) 4 Mg Tab 4 MG SL Q6HR Y for Nausea/Vomiting, #15 TAB 0 Refills Prov: Rachid Chen MD 12/09/17 Disposition: 01 DISCHARGE HOME Condition: Good Rachid Chen MD December 09, 2017 04:30
[2017-12-09] MEDS ORDERED: hydrALAZINE HCL 20 MG/ML VIAL IV PUSH ONE (05:45)
[2017-12-09] MEDS ORDERED: LABETALOL HCL 100 MG/20 ML VIAL IV PUSH ONE (06:00)
[2017-12-09 06:05] VITALS: BP 142/107; PULSE 77; RESP 18; O2SAT 100
[2017-12-09 06:16] LABS: AUTOMATED NEUTROPHIL # 3.3 TH/MM3 (1.8-7.7); BASOPHIL % 0.6 % (0.0-2.0); EOSINOPHIL % 0.2 % (0.0-4.0); HEMATOCRIT 40.3 % (35.0-46.0); HEMOGLOBIN 13.1 GM/DL (11.6-15.3); LYMPH % 21.6 % (9.0-44.0); MEAN CELL VOLUME 86.2 FL (80.0-100.0); MEAN CORPUSCULAR HEMOGLOBIN 28.1 PG (27.0-34.0); MEAN CORPUSCULAR HGB CONC 32.6 % (32.0-36.0); MEAN PLATELET VOLUME 10.8 FL (7.0-11.0); MONO % 7.6 % (0.0-8.0); MONOCYTE # 0.4 TH/MM3 (0-0.9); PLATELET COUNT 294 TH/MM3 (150-450); RED BLOOD COUNT 4.67 MIL/MM3 (4.00-5.30); RED CELL DISTRIBUTION WIDTH 15.3 % (11.6-17.2); WHITE BLOOD COUNT 4.7 TH/MM3 (4.0-11.0)
[2017-12-09 06:26] VITALS: BP 142/107; PULSE 85; RESP 18; O2SAT 100
[2017-12-09 06:53] LABS: ALBUMIN 3.5 GM/DL (3.4-5.0); AST (GOT) 22 U/L (15-37); BICARBONATE 24.8 MEQ/L (21.0-32.0); BLOOD UREA NITROGEN 24 MG/DL (7-18); CHLORIDE 104 MEQ/L (98-107); CREATININE 1.91 MG/DL (0.50-1.00); GLOMERULAR FILTRATION RATE 32 ML/MIN (>89); GLUCOSE,RANDOM 130 MG/DL (74-106); SODIUM (NA) 142 MEQ/L (136-145)
[2017-12-09 06:55] LABS: ALKALINE PHOSPHATASE 48 U/L (45-117); ALT (GPT) 21 U/L (10-53); TOTAL BILIRUBIN ADULT 1.3 MG/DL (0.2-1.0); TOTAL PROTEIN 7.1 GM/DL (6.4-8.2)
[2017-12-09] MEDS ORDERED: FAMO1TAB37 PO (07:10)
[2017-12-09] MEDS ORDERED: ZOFR4TAB3 SL (07:10)
[2017-12-09] MEDS ORDERED: NEXI40CA PO (07:11)
[2017-12-09] MEDS ORDERED: REGL10TA5 PO (07:11)
== END 2017-12-09 07:00 | disposition home or self-care (01) ==
LOC: NEPE 03:18
DX: K29.70 Gastritis, unspecified, without bleeding (principal); I11.0 Hypertensive heart disease with heart failure; I50.9 Heart failure, unspecified
CPT/HCPCS: 80053; 85025; 96365; 96375; 99284; C9113; J2765

== ENCOUNTER 2018-02-05 15:14 | Inpatient (IN) ==
--- NOTE | 2018-02-05 16:09 | XR ---
EXAM DATE: 02/05/2018 3:56 PM EDT AGE/SEX: 67 years / Female INDICATIONS: . Short of breath, swelling below the waist CLINICAL DATA: This is the patient's initial encounter. Patient reports that signs and symptoms have been present for 1 week and indicates a pain score of 0/10. MEDICAL/SURGICAL HISTORY: Congestive heart failure. heart attack, hypertension None. COMPARISON: [facility] [place], CHEST SINGLE AP, 11/15/2017. . FINDINGS: The heart remains enlarged. Atelectasis is noted within the mid lung lai bilaterally. No focal julio c eolar consolidation is noted. CONCLUSION: 1. Stable cardiomegaly. 2. Atelectasis within the mid lung lai bilaterally. Electronically signed by: Aayush Krueger MD 02/05/2018 4:08 PM EDT
[2018-02-05 17:18] LABS: Baso # (Auto) 0.1 th/mm3 (0.0-0.2); Baso % (Auto) 1.1 % (0.0-2.0); Eos % (Auto) 0.3 % (0.0-4.0); Hematocrit 36.5 % (35.0-46.0); Lymph # (Auto) 1.2 th/mm3 (1.0-4.8); Lymph % (Auto) 19.5 % (9.0-44.0); Mean Corpuscular HGB Conc 32.9 % (32.0-36.0); Mean Corpuscular Hemoglobin 24.9 pg (27.0-34.0); Mean Corpuscular Volume 75.7 fL (80.0-100.0); Mean Platelet Volume 10.1 fL (7.0-11.0); Mono % (Auto) 16.7 % (0.0-8.0); Neut # (Auto) 3.7 th/mm3 (1.8-7.7); Neut % (Auto) 62.4 % (16.0-70.0); Platelet Count 251 th/mm3 (150-450); Red Blood Count 4.82 mil/mm3 (4.00-5.30); Red Cell Distribution Width 16.8 % (11.6-17.2)
[2018-02-05 17:37] LABS: Alanine Aminotransferase 23 U/L (10-53); Albumin 3.2 g/dL (3.4-5.0); Anion Gap 12 meq/L (5-15); Aspartate Aminotransferase 18 U/L (15-37); Blood Urea Nitrogen 39 mg/dL (7-18); Calcium 8.6 mg/dL (8.5-10.1); Carbon Dioxide 23.4 meq/L (21.0-32.0); Chloride 104 meq/L (98-107); Glomerular Filtration Rate 30 mL/min (>89); Glucose,Random 94 mg/dL (74-106); Potassium 3.5 meq/L (3.5-5.1); Sodium 139 meq/L (136-145)
[2018-02-05 17:41] LABS: Alkaline Phosphatase 46 U/L (45-117); Total Protein 6.1 g/dL (6.4-8.2); Troponin I 0.02 ng/mL (0.02-0.05)
[2018-02-05] MEDS ORDERED: Bisacodyl 10 MG Supp RECTAL PRN (18:38)
--- NOTE | 2018-02-05 19:51 | ED ---
HPI General Chief Complaint: Shortness of Breath/Dyspnea Stated Complaint: Edema/Doc Sent Time Seen by Provider: 02/05/18 15:26 Source: patient Mode of arrival: ambulatory Limitations: no limitations History of Present Illness Patient is a 67 yof PMHx sig for CKD and CHF, with recent decrease in her prescribed lasix who presents with complaint of worsening dyspnea and BLE edema since her dose of decreased. She has had decreased UOP since that time as well. No chest pain nor leg pain. No numbness, weakness, nausea nor vomiting. No fevers nor chills. MD Complaint: shortness of breath Onset (ago): day(s) Severity: moderate Consistency/Duration: constant Relieving factors: nothing Exacerbating factors: lying flat and exertion Known history of: congestive heart failure Associated symptoms: lower extremity pain Treatment prior to arrival: none Related Data Home oxygen amount: none Home Medications Medication Instructions Recorded Confirmed carvedilol 25 mg PO BID 02/05/18 02/05/18 esomeprazole magnesium 40 mg PO DAILY 02/05/18 02/05/18 furosemide 20 mg PO DAILY 02/05/18 02/05/18 ondansetron 4 mg PO BID PRN 02/05/18 02/05/18 potassium chloride [K-Tab] 40 mg PO DAILY 02/05/18 02/05/18 warfarin 4 mg PO DAILY 02/05/18 02/05/18 Allergies Allergy/AdvReac Type Severity Reaction Status Date / Time iodine Allergy Severe sneezing, Unverified 12/09/17 03:24 chest tightness potassium iodide Allergy Severe sneezing, Unverified 12/09/17 03:24 chest tightness povidone-iodine Allergy Severe sneezing, Unverified 12/09/17 03:24 chest tightness sodium iodide Allergy Severe sneezing, Unverified 12/09/17 03:24 chest tightness sodium iodide Allergy Severe sneezing, Unverified 12/09/17 03:24 chest tightness sulfamethoxazole Allergy Intermediate abdominal Unverified 12/09/17 03:24 pain trimethoprim Allergy Intermediate abdominal Unverified 12/09/17 03:24 pain hydralazine Allergy Unknown Edema Verified 12/09/17 03:24 Statins Allergy Unknown Uncoded 08/18/17 21:18 Review of Systems Except as stated in HPI: all other systems reviewed are negative Constitutional Denies fever(s) Eyes Denies blurry vision ENT Denies nasal congestion Cardiovascular Denies chest pain, Denies chest pain at rest, Denies diaphoresis, Denies syncope , Reports pedal edema and Denies claudication Respiratory Reports dyspnea Gastrointestinal Denies abdominal pain Musculoskeletal Denies neck pain Integumentary/Breasts Denies rash Neurologic Denies abnormal gait Psychiatric Denies anxiety [facility] Medical History Medical History Bronchitis (Acute) CHF (congestive heart failure) (Acute) CVA (cerebral vascular accident) (Acute) Coronary artery disease (Acute) Fibromyalgia (Acute) Hypertension (Acute) Myocardial infarction (Acute) Social History Social History Substance History: No History of Abuse Second Hand Smoke Exposure: No Smoking Status: Never smoker How Often Do You Have a Drink Containing Alcohol: Never Recent Travel in [facility] within the Last 8 Weeks: No Recent Out of Country Travel within the Last 8 Weeks: No Immunization History Tetanus Immunization: >5 Years Hx Influenza Vaccine This Season: No Exam Narrative Exam Narrative: GENERAL: Well-appearing female in no acute distress SKIN: Focused skin assessment warm/dry. HEAD: Atraumatic. Normocephalic. EYES: Pupils equal and round. No scleral icterus. No injection or drainage. ENT: No nasal bleeding or discharge. Mucous membranes pink and moist. NECK: Trachea midline. JVD present. CARDIOVASCULAR: Regular rate and rhythm. No murmur appreciated. RESPIRATORY: No accessory muscle use. Rhonchi present in bilateral bases. Breath sounds equal bilaterally. GASTROINTESTINAL: Abdomen soft, non-tender, nondistended. Hepatic and splenic margins not palpable. MUSCULOSKELETAL: No obvious deformities. No clubbing. No cyanosis. No edema. NEUROLOGICAL: Awake and alert. No obvious cranial nerve deficits. Motor grossly within normal limits. Normal speech. PSYCHIATRIC: Appropriate mood and affect; insight and judgment normal. Course Hospital Course: On arrival patient was placed on the environmental monitoring technician and IV was established. Reevaluation(s) Reevaluation #1: Patient stated that she was continuing to feel well and without distress. Initial Documented Vital Signs Temperature 98.2 F 02/05/18 15:18 Pulse Rate 92 H 02/05/18 15:18 Respiratory Rate 22 07/23/18 15:18 Blood Pressure 140/114 H 02/05/18 15:18 Pulse Oximetry 99 02/05/18 15:18 Last Documented Vital Signs Temperature 98.2 F 02/05/18 15:18 Pulse Rate 82 02/05/18 18:26 Respiratory Rate 18 02/05/18 18:26 Blood Pressure 139/102 H 02/05/18 18:26 Pulse Oximetry 98 02/05/18 16:34 Medical Decision Making MDM Narrative Medical decision making narrative: Patient is a 67 yof who preseted with complaint of worsening dyspnea, particularly with exertion and lying flat, in addition to worsening BLE since decreasing her home lasix. HDS on arrival into the ED. EKG shows T wave inversions, CXR consistent with cardiomegaly and fluid overload. Labs consistent with worsening renal function and CHF. I spoke with Dr Bello, admitting physician and we agreed to give her 40 mg lasix IV at this time, with possible re-dosing later. Differential Diagnosis Differential Diagnosis: Differential includes but is not limited to CHF exacerbation, ARIANA, ACS, PE, cirrhosis, myocarditis. Medical Records Medical records reviewed: Yes I reviewed the patient's medical records. Lab Data Lab results reviewed: Yes I reviewed the patient's lab results. Lab results narrative: Significant for increasing creatinine and markedly elevated BNP. Result diagrams: 02/05/18 16:54 02/05/18 16:54 Lab Results 02/05/18 02/05/18 02/05/18 Range/Units 16:54 16:54 16:54 WBC 6.0 (4.0-11.0) th/mm3 RBC 4.82 (4.00-5.30) mil/mm3 Hgb 12.0 (11.6-15.3) gm/dL Hct 36.5 (35.0-46.0) % MCV 75.7 L (80.0-100.0) fL MCH 24.9 L (27.0-34.0) pg MCHC 32.9 (32.0-36.0) % RDW 16.8 (11.6-17.2) % Plt Count 251 (150-450) th/mm3 MPV 10.1 (7.0-11.0) fL Neut % (Auto) 62.4 (16.0-70.0) % Lymph % (Auto) 19.5 (9.0-44.0) % [place] % (Auto) 16.7 H (0.0-8.0) % Eos % (Auto) 0.3 (0.0-4.0) % Baso % (Auto) 1.1 (0.0-2.0) % Neut # (Auto) 3.7 (1.8-7.7) th/mm3 Lymph # (Auto) 1.2 (1.0-4.8) th/mm3 [place] # (Auto) 1.0 H (0.0-0.9) th/mm3 Eos # (Auto) 0.0 (0.0-0.4) th/mm3 Baso # (Auto) 0.1 (0.0-0.2) th/mm3 WBC Differential . Differential Comment Auto diff final Sodium 139 (136-145) meq/L Potassium 3.5 (3.5-5.1) meq/L Chloride 104 (98-107) meq/L Carbon Dioxide 23.4 (21.0-32.0) meq/L Anion Gap 12 (5-15) meq/L BUN 39 H (7-18) mg/dL Creatinine 2.01 H (0.50-1.00) mg/dL Estimated GFR 30 L (>89) mL/min Random Glucose 94 (74-106) mg/dL Calcium 8.6 (8.5-10.1) mg/dL Total Bilirubin 1.9 H (0.2-1.0) mg/dL AST 18 (15-37) U/L ALT 23 (10-53) U/L Alkaline Phosphatase 46 (45-117) U/L Troponin I 0.02 (0.02-0.05) ng/mL B-Natriuretic Peptide Greater than 5000 H (0-100) pg/mL Total Protein 6.1 L (6.4-8.2) g/dL Albumin 3.2 L (3.4-5.0) g/dL Imaging Data Attestation: I personally reviewed and interpreted this imaging study as follows : My impression: Cardiomegaly with atelectasis without consolidation. Radiologist's impression: Chest X-Ray 02/05/18 15:40 CONCLUSION: 1. Stable cardiomegaly. 2. Atelectasis within the mid lung lai bilaterally. ECG Data EKG Prior to Arrival: No Attestation: I personally reviewed and interpreted this ECG as follows: (Sinus rhythm at a rate of 90 bpm. T wave inversion present in the aroldo-lateral leads without changes in the ST segments.) Discharge Plan Discharge Disposition Patient Disposition: 30 Still Patient Discharge Condition Condition: Stable Discharge Details Diagnosis: Acute exacerbation of CHF (congestive heart failure), Fluid overload, CKD ( chronic kidney disease) Physicians Team ED Provider: Manjula Rodriguez Primary Care Provider: Melissa Monreal Attending Provider: Micki Bello Discharge Interventions Interventions: Vital Signs Last Done: 02/05/18 16:34 Status ED Status: Admitted Patient
--- NOTE | 2018-02-05 20:33 | P.HPIM ---
History of Present Illness Primary Care Physician: Melissa Monreal MD, R3 Inpatient Certification: I certify that the inpatient services were ordered in accordance with Medicare regulations governing the order. This includes certification that hospital inpatient services are reasonable and necessary and in the case of services not specified as inpatient-only under 42 CFR 419.22(n), that they are appropriately provided as inpatient services in accordance to with the 2-midnight benchmark under 43 CFR 412.3(e) Estimated Total Length of Stay (Days): 2 Plans for Post Hospital Care: Not yet determined PMFSH - History History Provided By: Patient - Medical History Medical History: Medical History (Last Reviewed 02/05/18 @ 19:43 by Manjula Rodriguez MD) Bronchitis CHF (congestive heart failure) CVA (cerebral vascular accident) Coronary artery disease Fibromyalgia Hypertension Myocardial infarction - Tobacco History Second Hand Smoke Exposure: No Smoking Status: Never smoker - Alcohol History How Often Do You Have a Drink Containing Alcohol: Never - Substance Use History Substance History: No History of Abuse - Travel History Recent Travel in the [place] Within the Last 8 Weeks: No Recent Travel Out of the Country Within the Last 8 Weeks: No - Immunization History Tetanus Immunization: >5 Years Hx Influenza Vaccine This Season: No Medications and Allergies Active Medications: Active Medications Al Hydroxide/Mg Hydroxide (Milk Of Magnesia Liq) 30 ml PO Q12H PRN PRN Reason: Mild Constipation Bisacodyl (Dulcolax Supp) 10 mg RECTAL DAILY PRN PRN Reason: SEVERE CONSITIPATION Heparin Sodium (Porcine) (Heparin Inj) 5,000 units SQ Q12H ANAHI Lactulose (Lactulose Liq) 30 ml PO DAILY PRN PRN Reason: SEVERE CONSITIPATION Sennosides (Senokot) 17.2 mg PO Q12H PRN PRN Reason: Moderate Constipation Allergies Allergy/AdvReac Type Severity Reaction Status Date / Time iodine Allergy Severe sneezing, Unverified 12/09/17 03:24 chest tightness potassium iodide Allergy Severe sneezing, Unverified 12/09/17 03:24 chest tightness povidone-iodine Allergy Severe sneezing, Unverified 12/09/17 03:24 chest tightness sodium iodide Allergy Severe sneezing, Unverified 12/09/17 03:24 chest tightness sodium iodide Allergy Severe sneezing, Unverified 12/09/17 03:24 chest tightness sulfamethoxazole Allergy Intermediate abdominal Unverified 12/09/17 03:24 pain trimethoprim Allergy Intermediate abdominal Unverified 12/09/17 03:24 pain hydralazine Allergy Unknown Edema Verified 12/09/17 03:24 Statins Allergy Unknown Uncoded 08/18/17 21:18 Home Medications Medication Instructions Recorded Confirmed Type carvedilol 25 mg PO BID 02/05/18 02/05/18 History esomeprazole magnesium 40 mg PO DAILY 02/05/18 02/05/18 History furosemide 20 mg PO DAILY 02/05/18 02/05/18 History ondansetron 4 mg PO BID PRN 02/05/18 02/05/18 History potassium chloride [K-Tab] 40 mg PO DAILY 02/05/18 02/05/18 History warfarin 4 mg PO DAILY 02/05/18 02/05/18 History Exam Vital signs: Vital Signs 02/05/18 15:18 02/05/18 16:19 02/05/18 16:34 Temperature 98.2 F Pulse Rate 92 H 86 86 Respiratory Rate 22 18 Blood Pressure 140/114 H 138/98 H Pulse Oximetry 99 98 98 02/05/18 18:26 02/05/18 19:53 Temperature Pulse Rate 82 98 H Respiratory Rate 18 20 Blood Pressure 139/102 H 138/102 H Pulse Oximetry 96 Intake & Output 02/05/18 02/05/18 02/06/18 06:59 18:59 06:59 Weight 87.543 kg Results - Labs CBC & Chem 7: 02/05/18 16:54 02/05/18 16:54 Labs: Short CBC 02/05/18 Range/Units 16:54 WBC 6.0 (4.0-11.0) th/mm3 Hgb 12.0 (11.6-15.3) gm/dL Hct 36.5 (35.0-46.0) % Plt Count 251 (150-450) th/mm3 BMP 02/05/18 16:54 Sodium 139 Potassium 3.5 Chloride 104 Carbon Dioxide 23.4 BUN 39 H Creatinine 2.01 H Calcium 8.6 Cardiac Enzymes 02/05/18 Range/Units 16:54 Troponin I 0.02 (0.02-0.05) ng/mL Liver Function 02/05/18 Range/Units 16:54 Total Bilirubin 1.9 H (0.2-1.0) mg/dL AST 18 (15-37) U/L ALT 23 (10-53) U/L Alkaline Phosphatase 46 (45-117) U/L Albumin 3.2 L (3.4-5.0) g/dL - Imaging Impressions Chest X-Ray 02/05/18 15:40 CONCLUSION: 1. Stable cardiomegaly. 2. Atelectasis within the mid lung lai bilaterally. Caprini VTE Risk Assessment Caprini Risk Assessment Model: Point Value = 1 Point Value = 2 Point Value = 3 Point Value = 5 Age 41-60 Minor surgery BMI > 25 kg/m2 Swollen legs Varicose veins or History of unexplained or recurrent spontaneous Oral contraceptives or hormone replacement Sepsis (< 1 month) Serious lung disease, including pneumonia (< 1 month) Abnormal pulmonary function Acute myocardial infarction Congestive heart failure (< 1 month) History of inflammatory bowel disease Medical patient at bed rest Age 61-74 Arthroscopic surgery Major open surgery (> 45 min) Laparoscopic surgery (> 45 min) Malignancy Confined to bed (> 72 hours) Immobilizing plaster cast Central venous access Age >= 75 History of VTE Family history of VTE Factor V Leiden Prothrombin [id number] Lupus anticoagulant Anticardiolipin antibodies Elevated serum homocysteine Heparin-induced thrombocytopenia Other congenital or acquired thrombophilia Stroke (< 1 month) Elective arthroplasty Hip, pelvis, or leg fracture Acute spinal cord injury (< 1 month) Prophylaxis Regimen: Total Risk Factor Score Risk Level Prophylaxis Regimen 0-1 Low Early ambulation 2 Moderate Order ONE of the following: *Sequential Compression Device (SCD) *Heparin 5000 units SQ BID 3-4 Higher Order ONE of the following medications: *Heparin 5000 units SQ TID *Enoxaparin/Lovenox 40 mg SQ daily (WT < 150 kg, CrCl > 30 mL/min) *Enoxaparin/Lovenox 30 mg SQ daily (WT < 150 kg, CrCl > 10-29 mL/min) *Enoxaparin/Lovenox 30 mg SQ BID (WT < 150 kg, CrCl > 30 mL/min) AND/OR *Sequential Compression Device (SCD) 5 or more Highest Order ONE of the following medications: *Heparin 5000 units SQ TID (Preferred with Epidurals) *Enoxaparin/Lovenox 40 mg SQ daily (WT < 150 kg, CrCl > 30 mL/min) *Enoxaparin/Lovenox 30 mg SQ daily (WT < 150 kg, CrCl > 10-29 mL/min) *Enoxaparin/Lovenox 30 mg SQ BID (WT < 150 kg, CrCl > 30 mL/min) AND *Sequential Compression Device (SCD)
[2018-02-05] MEDS: Heparin - SQ 10,000 UNITS/ML Vial SQ SCH (21:55)
--- NOTE | 2018-02-05 22:44 | P.HPFP ---
History of Present Illness Primary Care Physician: Melissa Monreal MD, R3 <Jesus Medrano - 02/09/18 12:11> Melissa Monreal MD, R3 <Bebe Raymond - 02/05/18 22:44> Chief Complaint: SOB and LE swelling <Bebe Raymond 02/05/18 22:44> History of Present Illness: Patient is a 67-year-old female with past medical history of CHF, hypertension, and CVA with residual left-sided weakness who presented to the ED from PCPs office (Dr. Monreal) due to complaints of worsening shortness of breath and lower extremity swelling. Patient reports that 2 weeks ago she saw her home health manager (Dr. Chávez) and was advised to resumed carvedilol medication, and due to worsening kidney function enalapril was discontinued and Lasix dose was decreased from 40 mg daily to 20 mg daily. She reports that since these changes in medication she has noted that her shortness of breath worsen even at rest and she began having increased lower extremity swelling extending to her lower abdomen. She also reports weight gain during the past 2 weeks. Patient normally sleeps with the back of the bed elevated. She denies fever, chest pain, chills, diarrhea, cough or dysuria. Endorses decreased urine output. Patient reports her shortness of breath has improved since receiving diuretics in the ED. Of note patient reports that a month ago she began having nausea and intermittent vomiting. This was the reason she had stopped taking her carvedilol medication for 2 weeks prior to seeing Dr. wayne in his office. Patient stated she was seen by GI and was supposed to have a HIDA study to further evaluate her gallbladder however she was not able to pay for this procedure. Currently denies any nausea or vomiting. She vomited once yesterday. Today she has been able to tolerate p.o. intake. In the ED patient received 40 mg of Lasix IV 1. <Bebe Raymond 02/05/18 23:54> - Diagnosis (1) Acute exacerbation of CHF (congestive heart failure) (2) CKD (chronic kidney disease) (3) Hypertension (4) Nutrition, metabolism, and development symptoms <Bebe Raymond 02/05/18 23:58> Inpatient Certification: I certify that the inpatient services were ordered in accordance with Medicare regulations governing the order. This includes certification that hospital inpatient services are reasonable and necessary and in the case of services not specified as inpatient-only under 42 CFR 419.22(n), that they are appropriately provided as inpatient services in accordance to with the 2-midnight benchmark under 43 CFR 412.3(e) <Jesus Medrano - 02/09/18 12:11> I certify that the inpatient services were ordered in accordance with Medicare regulations governing the order. This includes certification that hospital inpatient services are reasonable and necessary and in the case of services not specified as inpatient-only under 42 CFR 419.22(n), that they are appropriately provided as inpatient services in accordance to with the 2-midnight benchmark under 43 CFR 412.3(e) <Bebe Raymond 02/05/18 22:44> Estimated Total Length of Stay (Days): 2 <Bebe Raymond 02/05/18 22:44> Plans for Post Hospital Care: Not yet determined <Bebe Raymond 02/05/18 22:44> Review of Systems All other systems reviewed negative except as stated in HPI <Bebe Raymond 02/05/18 23:45> PMFSH - History History Provided By: Patient <Bebe Raymond 02/05/18 22:44> - Medical History Medical History: Medical History (Last Reviewed 02/05/18 @ 19:43 by Manjula Rodriguez MD) Bronchitis CHF (congestive heart failure) CVA (cerebral vascular accident) Coronary artery disease Fibromyalgia Hypertension Myocardial infarction <Jesus Medrano - 02/09/18 12:11> Medical History (Last Reviewed 02/05/18 @ 19:43 by Manjula Rodriguez MD) Bronchitis CHF (congestive heart failure) CVA (cerebral vascular accident) Coronary artery disease Fibromyalgia Hypertension Myocardial infarction <Bebe Raymond 02/05/18 22:44> - Family History Family History: Family History (Last Updated 02/05/18 @ 23:10 by Bebe Raymond MD, R2) Father CAD (coronary artery disease) Myocardial infarction Brother CAD (coronary artery disease) Myocardial infarction Other Malignant neoplasm <Jesus Medrano - 02/09/18 12:11> Family History (Last Updated 02/05/18 @ 23:10 by Bebe Raymond MD, R2) Father CAD (coronary artery disease) Myocardial infarction Brother CAD (coronary artery disease) Myocardial infarction Other Malignant neoplasm <Bebe Raymond 02/05/18 23:45> - Tobacco History Second Hand Smoke Exposure: No <Bebe Raymond 02/05/18 22:44> Smoking Status: Never smoker <Bebe Raymond 02/05/18 22:44> - Alcohol History How Often Do You Have a Drink Containing Alcohol: Never <Bebe Raymond 22:44> - Substance Use History Substance History: No History of Abuse <Bebe Raymond 02/05/18 22:44> - Travel History Recent Travel in the [facility] Within the Last 8 Weeks: No <Bebe Raymond 22:44> Recent Travel Out of the Country Within the Last 8 Weeks: No <Bebe Raymond 02/05/18 22:44> - Immunization History Tetanus Immunization: >5 Years <Bebe Raymond 02/05/18 22:44> Hx Influenza Vaccine This Season: No <Bebe Raymond 02/05/18 22:44> Medications and Allergies Allergies Allergy/AdvReac Type Severity Reaction Status Date / Time iodine Allergy Severe sneezing, Unverified 12/09/17 03:24 chest tightness potassium iodide Allergy Severe sneezing, Unverified 12/09/17 03:24 chest tightness povidone-iodine Allergy Severe sneezing, Unverified 12/09/17 03:24 chest tightness sodium iodide Allergy Severe sneezing, Unverified 12/09/17 03:24 chest tightness sodium iodide Allergy Severe sneezing, Unverified 12/09/17 03:24 chest tightness sulfamethoxazole Allergy Intermediate abdominal Unverified 12/09/17 03:24 pain trimethoprim Allergy Intermediate abdominal Unverified 12/09/17 03:24 pain hydralazine Allergy Unknown Edema Verified 12/09/17 03:24 Statins Allergy Unknown Uncoded 08/18/17 21:18 <Jesus Medrano - 02/09/18 12:11> Home Medications Medication Instructions Recorded Confirmed Type carvedilol 25 mg PO BID 02/05/18 02/05/18 History esomeprazole magnesium 40 mg PO DAILY 02/05/18 02/05/18 History furosemide 20 mg PO DAILY 02/05/18 02/05/18 History ondansetron 4 mg PO BID PRN 02/05/18 02/05/18 History potassium chloride [K-Tab] 40 mg PO DAILY 02/05/18 02/05/18 History warfarin 4 mg PO DAILY 02/05/18 02/05/18 History <Jesus Medrano - 02/09/18 12:11> Active Medications: Active Medications Al Hydroxide/Mg Hydroxide (Milk Of Magnesia Liq) 30 ml PO Q12H PRN PRN Reason: Mild Constipation Albuterol (Duoneb Neb (Prn)) 1 ampul NEB Q4HR NEB PRN PRN Reason: cough Albuterol (Duoneb Neb (James)) 1 ampul NEB Q6HR WHILE AWAKE NEB [facility] Last Admin: 02/09/18 08:12 Dose: 1 ampul Bisacodyl (Dulcolax Supp) 10 mg RECTAL DAILY PRN PRN Reason: SEVERE CONSITIPATION Carvedilol (Coreg) 25 mg PO BID [facility] Last Admin: 02/09/18 09:45 Dose: 25 mg Furosemide (Lasix Inj) 40 mg IV.PUSH BID@0900,1800 [facility] Last Admin: 02/09/18 09:51 Dose: 40 mg Heparin Sodium (Porcine) (Heparin Inj) 5,000 units SQ Q12H [facility] Last Admin: 02/09/18 09:44 Dose: 5,000 units Lactulose (Lactulose Liq) 30 ml PO DAILY PRN PRN Reason: SEVERE CONSITIPATION Ondansetron HCl (Zofran Odt) 4 mg PO Q6H PRN PRN Reason: nausea or vomiting Potassium Chloride (Klor-Con 10) 30 meq PO DAILY [facility] Last Admin: 02/09/18 09:45 Dose: 30 meq Sennosides (Senokot) 17.2 mg PO Q12H PRN PRN Reason: Moderate Constipation <Jesus Medrano - 02/09/18 12:11> Active Medications Al Hydroxide/Mg Hydroxide (Milk Of Magnesia Liq) 30 ml PO Q12H PRN PRN Reason: Mild Constipation Albuterol (Duoneb Neb (Prn)) 1 ampul NEB Q4HR NEB PRN PRN Reason: cough Albuterol (Duoneb Neb (James)) 1 ampul NEB Q6HR WHILE AWAKE NEB JAMES Bisacodyl (Dulcolax Supp) 10 mg RECTAL DAILY PRN PRN Reason: SEVERE CONSITIPATION Furosemide (Lasix Inj) 20 mg IV.PUSH BID@0900,1800 JAMES Heparin Sodium (Porcine) (Heparin Inj) 5,000 units SQ Q12H JAMES Last Admin: 02/05/18 21:55 Dose: 5,000 units Lactulose (Lactulose Liq) 30 ml PO DAILY PRN PRN Reason: SEVERE CONSITIPATION Sennosides (Senokot) 17.2 mg PO Q12H PRN PRN Reason: Moderate Constipation <Bebe Raymond - 02/05/18 22:44> Exam Vital signs: Vital Signs 02/08/18 16:00 02/08/18 19:20 02/08/18 20:00 Temperature 97.8 F 97.6 F Pulse Rate 89 76 74 Respiratory Rate 16 18 16 Blood Pressure 147/105 H 129/87 Pulse Oximetry 97 93 L 100 02/09/18 00:00 02/09/18 04:00 02/09/18 08:00 Temperature 97.5 F L 97.5 F L 97.9 F Pulse Rate 68 79 73 Respiratory Rate 16 17 18 Blood Pressure 127/85 127/97 H 131/101 H Pulse Oximetry 96 98 95 Intake & Output 02/08/18 02/09/18 02/09/18 18:59 06:59 18:59 Intake Total 540 / 540 480 / 480 Output Total 1100 / 1100 400 / 400 Balance -560 / -560 80 / 80 Weight 84.9 kg Intake: Oral 540 / 540 480 / 480 Output: Urine 1100 / 1100 400 / 400 Other: Date of Last Bowel Movement 02/05/18 # Bowel Movements 0 <Jesus Medrano - 02/09/18 12:11> Vital Signs 02/05/18 15:18 02/05/18 16:19 02/05/18 16:34 Temperature 98.2 F Pulse Rate 92 H 86 86 Respiratory Rate 22 18 Blood Pressure 140/114 H 138/98 H Pulse Oximetry 99 98 98 02/05/18 18:26 07/23/18 19:53 02/05/18 20:29 Temperature 98.1 F Pulse Rate 82 98 H 95 H Respiratory Rate 18 20 18 Blood Pressure 139/102 H 138/102 H 152/114 H Pulse Oximetry 96 95 Intake & Output 02/05/18 02/05/18 02/06/18 06:59 18:59 06:59 Weight 87.543 kg 87.4 kg Other: Weight On Admission 87.4 kg <Bebe Raymond 02/05/18 22:44> - Constitutional no acute distress <Bebe Raymond 02/05/18 23:45> - Routine HEENT Exam Eye: Present: EOMI, PERRL <Bebe Raymond 02/05/18 23:45> ENT: Present: mucous membranes moist <Bebe Raymond 02/05/18 23:45> - Routine Neck Exam Present: supple, full ROM. Absent: JVD, carotid bruit <Bebe Raymond 23:45> - Routine Respiratory Exam Present: CTA bilaterally. Absent: accessory muscle use <Bebe Raymond 23:45> - Routine Cardiovascular Exam Present: RRR, S1, S2, murmur (3/6 systolic murmu, chronic). Absent: gallop, rubs <Bebe Raymond 02/05/18 23:45> - Routine Abdominal Exam Present: soft, normoactive bowel sounds. Absent: tenderness, rebound, guarding , organomegaly, mass <Bebe Raymond 02/05/18 23:45> Comments: mild right-sided paralumbar muscle tenderness, chronic <Bebe Raymond 02/05/18 23:45> - Routine Extremities Exam Present: edema (Patient with +3 LE swelling extending to thighs, improving since admission per pt ), pulses intact (+2 DP pulses BL), normal capillary refill. Absent: cyanosis, calf tenderness, tenderness, extremity cold to touch <Bebe Raymond 02/05/18 23:45> - Routine Skin Exam Present: intact. Absent: cyanosis, erythema <Bebe Raymond 02/05/18 23:45 > - Routine Neurological Exam Present: oriented X3, CN II-XII intact (except for mild Left sided labial droop present, stable), facial asymmetry (mild left sided labial droop, stable since CVA in Jul 2017), normal speech. Absent: sensory deficit, motor deficit, tremors <Bebe Raymond - 02/05/18 23:45> Results - Labs Result diagrams: 02/05/18 16:54 02/09/18 07:14 <Jesus Medrano - 02/09/18 12:11> Abnormal lab results 02/09/18 Range/Units 07:14 BUN 38 H (7-18) mg/dL Creatinine 1.38 H (0.50-1.00) mg/dL Estimated GFR 46 L (>89) mL/min Calcium 8.3 L (8.5-10.1) mg/dL BMP 02/09/18 07:14 Sodium 143 Potassium 3.5 Chloride 106 Carbon Dioxide 26.1 BUN 38 H Creatinine 1.38 H Calcium 8.3 L <Jesus Medrano - 02/09/18 12:11> Abnormal lab results 02/05/18 02/05/18 02/05/18 Range/Units 16:54 16:54 16:54 MCV 75.7 L (80.0-100.0) fL MCH 24.9 L (27.0-34.0) pg Petroleum % (Auto) 16.7 H (0.0-8.0) % Petroleum # (Auto) 1.0 H (0.0-0.9) th/mm3 BUN 39 H (7-18) mg/dL Creatinine 2.01 H (0.50-1.00) mg/dL Estimated GFR 30 L (>89) mL/min Total Bilirubin 1.9 H (0.2-1.0) mg/dL B-Natriuretic Peptide Greater than 5000 H (0-100) pg/mL Total Protein 6.1 L (6.4-8.2) g/dL Albumin 3.2 L (3.4-5.0) g/dL Short CBC 02/05/18 Range/Units 16:54 WBC 6.0 (4.0-11.0) th/mm3 Hgb 12.0 (11.6-15.3) gm/dL Hct 36.5 (35.0-46.0) % Plt Count 251 (150-450) th/mm3 BMP 02/05/18 16:54 Sodium 139 Potassium 3.5 Chloride 104 Carbon Dioxide 23.4 BUN 39 H Creatinine 2.01 H Calcium 8.6 Cardiac Enzymes 02/05/18 Range/Units 16:54 Troponin I 0.02 (0.02-0.05) ng/mL Liver Function 02/05/18 Range/Units 16:54 Total Bilirubin 1.9 H (0.2-1.0) mg/dL AST 18 (15-37) U/L ALT 23 (10-53) U/L Alkaline Phosphatase 46 (45-117) U/L Albumin 3.2 L (3.4-5.0) g/dL <Bebe Raymond 02/05/18 22:44> - Imaging Impressions Chest X-Ray 02/05/18 15:40 CONCLUSION: 1. Stable cardiomegaly. 2. Atelectasis within the mid lung lai bilaterally. <Bebe Raymond 02/05/18 22:44> Caprini VTE Risk Assessment Caprini VTE Risk Assessment: Moderate/High Risk (score >= 2) <Bebe Raymond - 02/05/18 23:45> Caprini Risk Assessment Model: Point Value = 1 Point Value = 2 Point Value = 3 Point Value = 5 Age 41-60 Minor surgery BMI > 25 kg/m2 Swollen legs Varicose veins or History of unexplained or recurrent spontaneous Oral contraceptives or hormone replacement Sepsis (< 1 month) Serious lung disease, including pneumonia (< 1 month) Abnormal pulmonary function Acute myocardial infarction Congestive heart failure (< 1 month) History of inflammatory bowel disease Medical patient at bed rest Age 61-74 Arthroscopic surgery Major open surgery (> 45 min) Laparoscopic surgery (> 45 min) Malignancy Confined to bed (> 72 hours) Immobilizing plaster cast Central venous access Age >= 75 History of VTE Family history of VTE Factor V Leiden Prothrombin [id number] Lupus anticoagulant Anticardiolipin antibodies Elevated serum homocysteine Heparin-induced thrombocytopenia Other congenital or acquired thrombophilia Stroke (< 1 month) Elective arthroplasty Hip, pelvis, or leg fracture Acute spinal cord injury (< 1 month) <Jesus Medrano - 02/09/18 12:11> Point Value = 1 Point Value = 2 Point Value = 3 Point Value = 5 Age 41-60 Minor surgery BMI > 25 kg/m2 Swollen legs Varicose veins or History of unexplained or recurrent spontaneous Oral contraceptives or hormone replacement Sepsis (< 1 month) Serious lung disease, including pneumonia (< 1 month) Abnormal pulmonary function Acute myocardial infarction Congestive heart failure (< 1 month) History of inflammatory bowel disease Medical patient at bed rest Age 61-74 Arthroscopic surgery Major open surgery (> 45 min) Laparoscopic surgery (> 45 min) Malignancy Confined to bed (> 72 hours) Immobilizing plaster cast Central venous access Age >= 75 History of VTE Family history of VTE Factor V Leiden Prothrombin [id number] Lupus anticoagulant Anticardiolipin antibodies Elevated serum homocysteine Heparin-induced thrombocytopenia Other congenital or acquired thrombophilia Stroke (< 1 month) Elective arthroplasty Hip, pelvis, or leg fracture Acute spinal cord injury (< 1 month) <Bebe Raymond - 02/05/18 22:44> Prophylaxis Regimen: Total Risk Factor Score Risk Level Prophylaxis Regimen 0-1 Low Early ambulation 2 Moderate Order ONE of the following: *Sequential Compression Device (SCD) *Heparin 5000 units SQ BID 3-4 Higher Order ONE of the following medications: *Heparin 5000 units SQ TID *Enoxaparin/Lovenox 40 mg SQ daily (WT < 150 kg, CrCl > 30 mL/min) *Enoxaparin/Lovenox 30 mg SQ daily (WT < 150 kg, CrCl > 10-29 mL/min) *Enoxaparin/Lovenox 30 mg SQ BID (WT < 150 kg, CrCl > 30 mL/min) AND/OR *Sequential Compression Device (SCD) 5 or more Highest Order ONE of the following medications: *Heparin 5000 units SQ TID (Preferred with Epidurals) *Enoxaparin/Lovenox 40 mg SQ daily (WT < 150 kg, CrCl > 30 mL/min) *Enoxaparin/Lovenox 30 mg SQ daily (WT < 150 kg, CrCl > 10-29 mL/min) *Enoxaparin/Lovenox 30 mg SQ BID (WT < 150 kg, CrCl > 30 mL/min) AND *Sequential Compression Device (SCD) <Jesus Medrano - 02/09/18 12:11> Total Risk Factor Score Risk Level Prophylaxis Regimen 0-1 Low Early ambulation 2 Moderate Order ONE of the following: *Sequential Compression Device (SCD) *Heparin 5000 units SQ BID 3-4 Higher Order ONE of the following medications: *Heparin 5000 units SQ TID *Enoxaparin/Lovenox 40 mg SQ daily (WT < 150 kg, CrCl > 30 mL/min) *Enoxaparin/Lovenox 30 mg SQ daily (WT < 150 kg, CrCl > 10-29 mL/min) *Enoxaparin/Lovenox 30 mg SQ BID (WT < 150 kg, CrCl > 30 mL/min) AND/OR *Sequential Compression Device (SCD) 5 or more Highest Order ONE of the following medications: *Heparin 5000 units SQ TID (Preferred with Epidurals) *Enoxaparin/Lovenox 40 mg SQ daily (WT < 150 kg, CrCl > 30 mL/min) *Enoxaparin/Lovenox 30 mg SQ daily (WT < 150 kg, CrCl > 10-29 mL/min) *Enoxaparin/Lovenox 30 mg SQ BID (WT < 150 kg, CrCl > 30 mL/min) AND *Sequential Compression Device (SCD) <Bebe Raymond D - 02/05/18 22:44> Assessment and Plan - Assessment (1) Acute exacerbation of CHF (congestive heart failure) Code(s): I50.9 - Heart failure, unspecified Status: Acute Plan: Patient with a 2 week history of worsening shortness of breath and lower extremity edema associated with increased weight gain. The ED patient received Lasix 40 IV 1. BNP found to be greater than 5000 Chest x-ray showed stable cardiomegaly and atelectasis within the mid lung lai bilaterally. EKG: Sinus rhythm. Patient vital signs stable, in no acute distress with O2 saturations at 95 on room air Patient had echo done on 11/16/17 which showed EF of 25-30% and moderate tricuspid regurgitation. Repeat echo done on 01/18/18 showed EF of 20%, moderate to severe mitral and tricuspid regurgitation, and left atrial enlargement. Patient placed on wall cleaner vital signs and daily weights Strict I/Os Titrate oxygen as needed to maintain oxygen saturation greater than 92% Lasix 20 mg IV twice daily Cardiology consulted (Dr. Mae), appreciate recommendations hold enalapril Continue with carvedilol medication Follow-up: BMP and BNP (2) CKD (chronic kidney disease) Code(s): N18.9 - Chronic kidney disease, unspecified Status: Acute Plan: Patient with increased creatinine of 2. Per chart review patient with fluctuating creatinine levels since 06/2017 ranging from 0.70-- 1.91. Most recent CR of 1.91 in 12/09/17. Patient reports decrease in Lasix medication and discontinuation of enalapril medication by home health manager Dr. wayne due to her worsening kidney function. Patient also reports that she is scheduled to see straddle bug driver on 02/22/18 for this issue. Continue to monitor Cr and I/Os Consider nephrology consultation if patient noted to be oliguric (3) Hypertension Code(s): I10 - Essential (primary) hypertension Status: Acute Plan: Patient blood pressure slightly elevated at 150s/114 Continue to monitor vital signs Continue with carvedilol medication (4) Nutrition, metabolism, and development symptoms Code(s): R63.8 - Other symptoms and signs concerning food and fluid intake Status: Acute Plan: Fluids: Not indicated Electrolytes: Replete as needed Diet: Cardiac diet with sodium restriction of less than 2 g per day and fluid restriction of less than 1.5 L per day. DVT prophylaxis: Heparin SQ Q12 <Bebe Raymond - 02/05/18 23:58> - Attending Attestation See the residents documentation for details. I saw and evaluated the patient regarding the perez portions of this evaluation and agree with the residents findings and plans as written. Parts of this note were created using [employer] voice recognition software program. While efforts were made to correct any mistakes made by this software, some mistakes, errors, and omissions may remain in the final note that were not caught when the note was originally created. Plan of care was discussed and agreed upon with the patient as specifically documented in the above note. An opportunity to ask questions with explanation was provided. Patient voiced understanding on all information reviewed and discussed. <Jesus Medrano - 02/09/18 12:11> H&P: Quality - VTE Deep Vein Thrombosis/Pulmonary Embolism Present on Admission: No <Bebe Raymond - 02/05/18 22:44> <Bebe Raymond D - Last Filed: 02/05/18 23:58> (1) Acute exacerbation of CHF (congestive heart failure) Qualifiers: Heart failure type: unspecified Qualified Code(s): I50.9 - Heart failure, unspecified (2) CKD (chronic kidney disease) Qualifiers: Chronic kidney disease stage: unspecified stage Qualified Code(s): N18.9 - Chronic kidney disease, unspecified <Bebe Raymond D - Last Filed: 02/05/18 23:58> (1) Acute exacerbation of CHF (congestive heart failure) Qualifiers: Heart failure type: unspecified Qualified Code(s): I50.9 - Heart failure, unspecified (2) CKD (chronic kidney disease) Qualifiers: Chronic kidney disease stage: unspecified stage Qualified Code(s): N18.9 - Chronic kidney disease, unspecified
[2018-02-06 06:19] LABS: Calcium 8.1 mg/dL (8.5-10.1); Carbon Dioxide 19.8 meq/L (21.0-32.0); Magnesium 1.9 mg/dL (1.5-2.5); Potassium 3.5 meq/L (3.5-5.1)
[2018-02-06] MEDS: Heparin - SQ 10,000 UNITS/ML Vial SQ SCH ×2 (10:13→21:04)
--- NOTE | 2018-02-06 10:23 | P.PNFP ---
Subjective Interval history: No acute events overnight. Afebrile, vital signs stable. BPs ranging 130s-150s/90s-110s. Patient seen and examined this morning. She states her shortness of breath has continued to improve with her ongoing diuresis. She states she still has significant lower extremity edema bilaterally up to her mid thighs. Denies chest pain, dyspnea, cough, fevers. She otherwise does not report specific complaints or concerns. <Remington Stone - 02/06/18 10:23> Results - Labs Result diagrams: 02/05/18 16:54 02/08/18 08:46 <Jesus Medrano - 02/08/18 11:58> Abnormal lab results 02/08/18 Range/Units 08:46 Potassium 3.0 L (3.5-5.1) meq/L BUN 41 H (7-18) mg/dL Creatinine 1.53 H (0.50-1.00) mg/dL Estimated GFR 41 L (>89) mL/min Random Glucose 73 L (74-106) mg/dL Calcium 8.2 L (8.5-10.1) mg/dL BMP 02/08/18 08:46 Sodium 143 Potassium 3.0 L Chloride 106 Carbon Dioxide 26.2 BUN 41 H Creatinine 1.53 H Calcium 8.2 L Urine 02/07/18 Range/Units 22:40 Urine Color Straw (Yellw/Straw) Urine Clarity Clear (Clear) Urine pH 5.0 (5.0-8.5) Ur Specific [place] 1.006 (1.002-1.035) Urine Protein Negative (Neg-Trace) mg/dL Urine Glucose (UA) Negative (Negative) mg/dL <Jesus Medrano - 02/08/18 11:58> Abnormal lab results 02/05/18 02/05/18 02/05/18 Range/Units 16:54 16:54 16:54 MCV 75.7 L (80.0-100.0) fL MCH 24.9 L (27.0-34.0) pg [place] % (Auto) 16.7 H (0.0-8.0) % [place] # (Auto) 1.0 H (0.0-0.9) th/mm3 Carbon Dioxide (21.0-32.0) meq/L BUN 39 H (7-18) mg/dL Creatinine 2.01 H (0.50-1.00) mg/dL Estimated GFR 30 L (>89) mL/min Calcium (8.5-10.1) mg/dL Total Bilirubin 1.9 H (0.2-1.0) mg/dL B-Natriuretic Peptide Greater than 5000 H (0-100) pg/mL Total Protein 6.1 L (6.4-8.2) g/dL Albumin 3.2 L (3.4-5.0) g/dL 02/06/18 02/06/18 Range/Units 05:10 05:10 MCV (80.0-100.0) fL MCH (27.0-34.0) pg [place] % (Auto) (0.0-8.0) % [place] # (Auto) (0.0-0.9) th/mm3 Carbon Dioxide 19.8 L (21.0-32.0) meq/L BUN 40 H (7-18) mg/dL Creatinine 1.88 H (0.50-1.00) mg/dL Estimated GFR 32 L (>89) mL/min Calcium 8.1 L (8.5-10.1) mg/dL Total Bilirubin (0.2-1.0) mg/dL B-Natriuretic Peptide Greater than 5000 H (0-100) pg/mL Total Protein (6.4-8.2) g/dL Albumin (3.4-5.0) g/dL Short CBC 02/05/18 Range/Units 16:54 WBC 6.0 (4.0-11.0) th/mm3 Hgb 12.0 (11.6-15.3) gm/dL Hct 36.5 (35.0-46.0) % Plt Count 251 (150-450) th/mm3 BMP 02/05/18 02/06/18 16:54 05:10 Sodium 139 138 Potassium 3.5 3.5 Chloride 104 106 Carbon Dioxide 23.4 19.8 L BUN 39 H 40 H Creatinine 2.01 H 1.88 H Calcium 8.6 8.1 L Cardiac Enzymes 02/05/18 Range/Units 16:54 Troponin I 0.02 (0.02-0.05) ng/mL Liver Function 02/05/18 Range/Units 16:54 Total Bilirubin 1.9 H (0.2-1.0) mg/dL AST 18 (15-37) U/L ALT 23 (10-53) U/L Alkaline Phosphatase 46 (45-117) U/L Albumin 3.2 L (3.4-5.0) g/dL <Remington Stone - 02/06/18 10:23> - Imaging Impressions Chest X-Ray 02/05/18 15:40 CONCLUSION: 1. Stable cardiomegaly. 2. Atelectasis within the mid lung lai bilaterally. <Remington Stone - 02/06/18 10:23> Physical Exam Vital signs: Vital Signs 02/07/18 12:00 02/07/18 12:15 02/07/18 16:00 Temperature 97.1 F L 97.1 F L Pulse Rate 95 H 77 85 Respiratory Rate 18 20 18 Blood Pressure 135/104 H 136/105 H Pulse Oximetry 97 97 02/07/18 20:00 02/07/18 22:00 02/08/18 00:00 Temperature 97.3 F L 97.6 F Pulse Rate 89 92 H 75 Respiratory Rate 18 18 Blood Pressure 159/117 H 131/97 H Pulse Oximetry 99 18 L 02/08/18 04:00 02/08/18 04:27 02/08/18 08:25 Temperature 98.2 F Pulse Rate 85 68 87 Respiratory Rate 18 18 Blood Pressure 145/106 H Pulse Oximetry 97 95 Intake & Output 02/07/18 02/08/18 02/08/18 18:59 06:59 18:59 Intake Total 520 / 520 480 / 480 Output Total 1400 / 1400 1000 / 1000 Balance -880 / -880 -520 / -520 Weight 89.1 kg Intake: Oral 520 / 520 480 / 480 Output: Urine 1400 / 1400 1000 / 1000 Other: # Bowel Movements 0 0 <Jesus Medrano - 02/08/18 11:58> Vital Signs 02/05/18 15:18 02/05/18 16:19 02/05/18 16:34 Temperature 98.2 F Pulse Rate 92 H 86 86 Respiratory Rate 22 18 Blood Pressure 140/114 H 138/98 H Pulse Oximetry 99 98 98 02/05/18 18:26 02/05/18 19:53 02/05/18 20:29 Temperature 98.1 F Pulse Rate 82 98 H 95 H Respiratory Rate 18 20 18 Blood Pressure 139/102 H 138/102 H 152/114 H Pulse Oximetry 96 95 02/05/18 20:40 02/05/18 23:50 02/06/18 00:00 Temperature 97.7 F Pulse Rate 92 H 92 H 75 Respiratory Rate 18 Blood Pressure 155/103 H Pulse Oximetry 95 02/06/18 03:50 02/06/18 04:00 Temperature 97.5 F L Pulse Rate 73 93 H Respiratory Rate 18 Blood Pressure 140/107 H Pulse Oximetry 98 Intake & Output 02/05/18 02/06/18 02/06/18 18:59 06:59 18:59 Intake Total 120 / 120 Output Total 900 / 900 Balance -780 / -780 Weight 87.543 kg 87.6 kg Intake: Oral 120 / 120 Output: Urine 900 / 900 Other: Date of Last Bowel Movement 02/05/18 Weight On Admission 87.4 kg <Remington Stone 02/06/18 10:23> Narrative: GENERAL: NAD, lying comfortably in bed with HOB to 30 degrees NEURO: Alert. Normal speech. Very mild left sided facial droop. Left sided strength 4/5. Sensation intact to light touch. SKIN: Warm and dry. HEAD: Normocephalic. Atraumatic. EYES: EOMI. No injection or drainage. ENT: No nasal drainage. Moist mucous membranes. NECK: Supple, trachea midline. JVD present bilaterally. CARDIOVASCULAR: Regular rate and rhythm, holosystolic murmur best auscultated left upper sternal border. Peripheral pulses 2+. Capillary refill < 2 seconds. RESPIRATORY: Breath sounds equal, bibasilar rales. No rhonchi or wheezing. No accessory muscle use. GASTROINTESTINAL: Abdomen soft, nontender, protuberant. No rebound tenderness. No guarding. MUSCULOSKELETAL: 3+ lower extremity edema bilaterally up to mid-thighs. Normal range of motion. BACK: Nontender without obvious deformity. <Remington Stone - 02/06/18 10:31> Assessment and Plan - Assessment (1) Acute exacerbation of CHF (congestive heart failure) Code(s): I50.9 - Heart failure, unspecified Status: Acute Plan: Patient with a 2 week history of worsening shortness of breath and lower extremity edema associated with increased weight gain. received Lasix 40 IV 1 in the ED BNP found to be greater than 5000 Chest x-ray showed stable cardiomegaly and atelectasis within the mid lung lai bilaterally EKG: Sinus rhythm vital signs stable, in no acute distress Patient had echo done on 11/16/17 which showed EF of 25-30% and moderate tricuspid regurgitation. Repeat echo done on 01/18/18 showed EF of 20%, moderate to severe mitral and tricuspid regurgitation, and left atrial enlargement. Patient placed on treasury consultant vital signs and daily weights Strict I/Os Titrate oxygen as needed to maintain oxygen saturation greater than 92% Continue diuresis with Lasix 20 mg IV BID Will start KCl 10 meq daily, K+ 3.5 stable Cardiology consulted (Dr. Mae), appreciate recommendations (2) CKD (chronic kidney disease) Code(s): N18.9 - Chronic kidney disease, unspecified Status: Acute Plan: Patient with increased creatinine of 2.01 on admission, improving Per chart review patient with fluctuating creatinine levels since 06/2017 ranging from 0.70-1.91. Most recent CR of 1.91 in 12/09/17. Patient reports decrease in Lasix and discontinuation of enalapril by microfilm operator Dr. Mae due to her worsening kidney function. Patient also reports that she is scheduled to see a automotive leasing sales representative on 02/22/18 for this issue. Continue to monitor Cr and I/Os Will consider nephrology consultation if patient noted to be oliguric (3) Hypertension Code(s): I10 - Essential (primary) hypertension Status: Acute Plan: BPs elevated ranging 130s-150s/90s-110s Continue home carvedilol 25 mg po bid Continue to monitor vitals Continue diuresis as above (4) Nutrition, metabolism, and development symptoms Code(s): R63.8 - Other symptoms and signs concerning food and fluid intake Status: Acute Plan: Fluids: Not indicated Electrolytes: Replete as needed Diet: Cardiac diet with sodium restriction of less than 2 g per day and fluid restriction of less than 1.5 L per day DVT prophylaxis: Heparin SQ Q12 <Remington Stone - 02/06/18 10:23> - Attending Attestation See the residents documentation for details. I saw and evaluated the patient regarding the perez portions of this evaluation and agree with the residents findings and plans as written. Parts of this note were created using [employer] voice recognition software program. While efforts were made to correct any mistakes made by this software, some mistakes, errors, and omissions may remain in the final note that were not caught when the note was originally created. Plan of care was discussed and agreed upon with the patient as specifically documented in the above note. An opportunity to ask questions with explanation was provided. Patient voiced understanding on all information reviewed and discussed. <Jesus Medrano - 02/08/18 11:58> <Remington Stone - Last Filed: 02/06/18 10:23> (1) Acute exacerbation of CHF (congestive heart failure) Qualifiers: Heart failure type: unspecified Qualified Code(s): I50.9 - Heart failure, unspecified (2) CKD (chronic kidney disease) Qualifiers: Chronic kidney disease stage: unspecified stage Qualified Code(s): N18.9 - Chronic kidney disease, unspecified <Remington Stone - Last Filed: 02/06/18 10:23> (1) Acute exacerbation of CHF (congestive heart failure) Qualifiers: Heart failure type: unspecified Qualified Code(s): I50.9 - Heart failure, unspecified (2) CKD (chronic kidney disease) Qualifiers: Chronic kidney disease stage: unspecified stage Qualified Code(s): N18.9 - Chronic kidney disease, unspecified
--- NOTE | 2018-02-06 11:01 | ECG ---
Date Performed: 02/05/2018 Time Performed: 15:30:25 PTAGE: 67 years EKG: Sinus rhythm BORDERLINE LEFT AXIS DEVIATION NONSPECIFIC T-WAVE ABNORMALITY ABNORMAL ECG PREVIOUS TRACING : 11/15/2017 10.12 DOCTOR: Tayo Waller Interpretating Date/Time 02/06/2018 11:01:08
--- NOTE | 2018-02-06 16:52 | P.CONNP ---
History of Present Illness Service: Nephrology Reason for Consult: Acute kidney injury Primary Care Provider: Melissa Monreal MD, R3 Chief Complaint: SOB and LE swelling History of Present Illness: Ms. Funes has been admitted with complaints of shortness of breath, weight gain and lower extremity edema. She reports that she gained 20lbs in 1 week. Patient had been advised to stop Enalapril and the dose of Lasix was reduced recently. After her admission, she was given Lasix 40 mg IV, and now is on 20 mg IV. Patient has multiple medical problems including CVA, atrial fibrillation. Also, apparently she had developed nausea and vomiting. Review of Systems Constitutional: Reports fatigue, Reports lack of energy, Reports weight gain Cardiovascular: Reports irregular heart rhythm, Reports shortness of breath, Denies chest pain Respiratory: Reports shortness of breath, Denies cough, Denies pain on inspiration Gastrointestinal: Reports abdominal pain, Reports nausea, Denies vomiting blood PMFSH - History History Provided By: Patient - Medical History Medical History: Medical History (Last Reviewed 02/05/18 @ 19:43 by Manjula Rodriguez MD) Bronchitis CHF (congestive heart failure) CVA (cerebral vascular accident) Coronary artery disease Fibromyalgia Hypertension Myocardial infarction - Family History Family History: Family History (Last Updated 02/05/18 @ 23:10 by Bebe Raymond MD, R2) Father CAD (coronary artery disease) Myocardial infarction Brother CAD (coronary artery disease) Myocardial infarction Other Malignant neoplasm - Tobacco History Second Hand Smoke Exposure: No Smoking Status: Never smoker - Alcohol History How Often Do You Have a Drink Containing Alcohol: Never - Substance Use History Substance History: No History of Abuse - Travel History Recent Travel in the [place] Within the Last 8 Weeks: No Recent Travel Out of the Country Within the Last 8 Weeks: No - Immunization History Tetanus Immunization: >5 Years Hx Influenza Vaccine This Season: No Medications and Allergies Active Medications: Active Medications Al Hydroxide/Mg Hydroxide (Milk Of Magnesia Liq) 30 ml PO Q12H PRN PRN Reason: Mild Constipation Albuterol (Duoneb Neb (Prn)) 1 ampul NEB Q4HR NEB PRN PRN Reason: cough Albuterol (Duoneb Neb (James)) 1 ampul NEB Q6HR WHILE AWAKE NEB JAMES Last Admin: 02/06/18 14:11 Dose: Not Given Bisacodyl (Dulcolax Supp) 10 mg RECTAL DAILY PRN PRN Reason: SEVERE CONSITIPATION Furosemide (Lasix Inj) 20 mg IV.PUSH BID@0900,1800 [facility] Last Admin: 02/06/18 10:13 Dose: 20 mg Heparin Sodium (Porcine) (Heparin Inj) 5,000 units SQ Q12H [facility] Last Admin: 02/06/18 10:13 Dose: 5,000 units Lactulose (Lactulose Liq) 30 ml PO DAILY PRN PRN Reason: SEVERE CONSITIPATION Ondansetron HCl (Zofran Odt) 4 mg PO Q6H PRN PRN Reason: nausea or vomiting Sennosides (Senokot) 17.2 mg PO Q12H PRN PRN Reason: Moderate Constipation Allergies Allergy/AdvReac Type Severity Reaction Status Date / Time iodine Allergy Severe sneezing, Unverified 12/09/17 03:24 chest tightness potassium iodide Allergy Severe sneezing, Unverified 12/09/17 03:24 chest tightness povidone-iodine Allergy Severe sneezing, Unverified 12/09/17 03:24 chest tightness sodium iodide Allergy Severe sneezing, Unverified 12/09/17 03:24 chest tightness sodium iodide Allergy Severe sneezing, Unverified 12/09/17 03:24 chest tightness sulfamethoxazole Allergy Intermediate abdominal Unverified 12/09/17 03:24 pain trimethoprim Allergy Intermediate abdominal Unverified 12/09/17 03:24 pain hydralazine Allergy Unknown Edema Verified 12/09/17 03:24 Statins Allergy Unknown Uncoded 08/18/17 21:18 Home Medications Medication Instructions Recorded Confirmed Type carvedilol 25 mg PO BID 02/05/18 02/05/18 History esomeprazole magnesium 40 mg PO DAILY 02/05/18 02/05/18 History furosemide 20 mg PO DAILY 02/05/18 02/05/18 History ondansetron 4 mg PO BID PRN 02/05/18 02/05/18 History potassium chloride [K-Tab] 40 mg PO DAILY 02/05/18 02/05/18 History warfarin 4 mg PO DAILY 02/05/18 02/05/18 History Exam Vital signs: Vital Signs 02/05/18 18:26 02/05/18 19:53 07/23/18 20:29 Temperature 98.1 F Pulse Rate 82 98 H 95 H Respiratory Rate 18 20 18 Blood Pressure 139/102 H 138/102 H 152/114 H Pulse Oximetry 96 95 02/05/18 20:40 02/05/18 23:50 02/06/18 00:00 Temperature 97.7 F Pulse Rate 92 H 92 H 75 Respiratory Rate 18 Blood Pressure 155/103 H Pulse Oximetry 95 02/06/18 03:50 02/06/18 04:00 02/06/18 08:00 Temperature 97.5 F L 98.0 F Pulse Rate 73 93 H 85 Respiratory Rate 18 20 Blood Pressure 140/107 H 147/114 H Pulse Oximetry 98 98 02/06/18 08:25 02/06/18 09:00 02/06/18 12:00 Temperature Pulse Rate 85 85 79 Respiratory Rate 18 Blood Pressure Pulse Oximetry 95 Intake & Output 02/05/18 02/06/18 02/06/18 18:59 06:59 18:59 Intake Total 120 / 120 Output Total 900 / 900 Balance -780 / -780 Weight 87.543 kg 87.6 kg Intake: Oral 120 / 120 Output: Urine 900 / 900 Other: Date of Last Bowel Movement 02/05/18 Weight On Admission 87.4 kg - Constitutional no acute distress - Routine HEENT Exam Head: Present: normocephalic, atraumatic Eye: Present: EOMI, PERRL - Routine Neck Exam Present: JVD - Routine Chest/Breast/Axilla Exam Chest wall: Absent: tenderness, mass, pacemaker, chest tube - Routine Respiratory Exam Present: CTA bilaterally - Routine Cardiovascular Exam Present: S1, S2, murmur (systolic murmur), S3, irregular rhythm, JVD - Routine Abdominal Exam Present: soft, normoactive bowel sounds. Absent: tenderness, distended - Routine Extremities Exam Present: edema, full ROM. Absent: AV fistula - Routine Skin Exam Present: intact - Routine Neurological Exam Present: alert, oriented X3, CN II-XII intact Results - Lab Results 02/05/18 16:54 02/06/18 05:10 Most recent lab results Calcium 8.1 mg/dL (8.5-10.1) L 02/06/18 05:10 Magnesium 1.9 mg/dL (1.5-2.5) 02/06/18 05:10 Assessment and Plan - Assessment (1) Acute worsening of stage 3 chronic kidney disease Code(s): N18.3 - Chronic kidney disease, stage 3 (moderate) Status: Acute Plan: May be due to decompensated CHF and increased renal vein pressure. Continue diuretic carefully. Avoid nephrotoxic agents. Monitor urine output and renal function. Obtain UA and renal US. Continues to demonstrated fluid overload,I will increase Lasix to 40 mg IV Q12 hours. No immediate need for dialysis. (2) Acute exacerbation of CHF (congestive heart failure) Code(s): I50.9 - Heart failure, unspecified Status: Acute Plan: Acute exacerbation. Cardiology following. EF thought to be 20-25%. (3) Hypertension Code(s): I10 - Essential (primary) hypertension Status: Acute Plan: Monitor BP. Low salt diet. - Attending Attestation Thanks for the consult. (2) Acute exacerbation of CHF (congestive heart failure) Qualifiers: Heart failure type: unspecified Qualified Code(s): I50.9 - Heart failure, unspecified
--- NOTE | 2018-02-06 17:18 | P.CONCA ---
<Sarai Garza N - Last Filed: 02/06/18 16:44> History of Present Illness Service: Cardiology Consult date: 02/06/18 Requesting Physician: Bebe Raymond Reason for Consult: CHF exacerbation Primary Care Provider: Melissa Monreal MD, R3 Chief Complaint: SOB and LE swelling History of Present Illness: Pt is a 67-year-old female with a history of CHF, hypertension, and CVA with left side weakness. She is a known patient to Dr. Mae. Patient was seen 2 weeks ago in office. Pt was to resume carvedilol and stop enalapril, decrease lasix to 20mg from 40mg due to worsening kidney function. When speaking to the patient she stated that her SOB slowly increased since the medication changes along with the lower extremity edema. She also complained of weight gain over the last 2 weeks. Patient denies any CP, pressure, palpitations, dizziness or SOB at this time. States that she is starting to feel better with IV diuresis. Review of Systems Cardiovascular: Reports leg swelling Respiratory: Reports other Comments: crackles bilateral LL PMFSH - History History Provided By: Patient - Medical History Medical History: Medical History (Last Reviewed 02/05/18 @ 19:43 by Manjula Rodriguez MD) Bronchitis CHF (congestive heart failure) CVA (cerebral vascular accident) Coronary artery disease Fibromyalgia Hypertension Myocardial infarction - Family History Family History: Family History (Last Updated 02/05/18 @ 23:10 by Bebe Raymond MD, R2) Father CAD (coronary artery disease) Myocardial infarction Brother CAD (coronary artery disease) Myocardial infarction Other Malignant neoplasm - Tobacco History Second Hand Smoke Exposure: No Smoking Status: Never smoker - Alcohol History How Often Do You Have a Drink Containing Alcohol: Never - Substance Use History Substance History: No History of Abuse - Travel History Recent Travel in the [place] Within the Last 8 Weeks: No Recent Travel Out of the Country Within the Last 8 Weeks: No - Immunization History Tetanus Immunization: >5 Years Hx Influenza Vaccine This Season: No Medications and Allergies Allergies Allergy/AdvReac Type Severity Reaction Status Date / Time iodine Allergy Severe sneezing, Unverified 12/09/17 03:24 chest tightness potassium iodide Allergy Severe sneezing, Unverified 12/09/17 03:24 chest tightness povidone-iodine Allergy Severe sneezing, Unverified 12/09/17 03:24 chest tightness sodium iodide Allergy Severe sneezing, Unverified 12/09/17 03:24 chest tightness sodium iodide Allergy Severe sneezing, Unverified 12/09/17 03:24 chest tightness sulfamethoxazole Allergy Intermediate abdominal Unverified 12/09/17 03:24 pain trimethoprim Allergy Intermediate abdominal Unverified 12/09/17 03:24 pain hydralazine Allergy Unknown Edema Verified 12/09/17 03:24 Statins Allergy Unknown Uncoded 08/18/17 21:18 Home Medications Medication Instructions Recorded Confirmed Type carvedilol 25 mg PO BID 02/05/18 02/05/18 History esomeprazole magnesium 40 mg PO DAILY 02/05/18 02/05/18 History furosemide 20 mg PO DAILY 02/05/18 02/05/18 History ondansetron 4 mg PO BID PRN 02/05/18 02/05/18 History potassium chloride [K-Tab] 40 mg PO DAILY 02/05/18 02/05/18 History warfarin 4 mg PO DAILY 02/05/18 02/05/18 History Active Medications: Active Medications Al Hydroxide/Mg Hydroxide (Milk Of Magnesia Liq) 30 ml PO Q12H PRN PRN Reason: Mild Constipation Albuterol (Duoneb Neb (Prn)) 1 ampul NEB Q4HR NEB PRN PRN Reason: cough Albuterol (Duoneb Neb (James)) 1 ampul NEB Q6HR WHILE AWAKE NEB JAMES Last Admin: 02/06/18 14:11 Dose: Not Given Bisacodyl (Dulcolax Supp) 10 mg RECTAL DAILY PRN PRN Reason: SEVERE CONSITIPATION Furosemide (Lasix Inj) 20 mg IV.PUSH BID@0900,1800 [facility] Last Admin: 02/06/18 10:13 Dose: 20 mg Heparin Sodium (Porcine) (Heparin Inj) 5,000 units SQ Q12H [facility] Last Admin: 02/06/18 10:13 Dose: 5,000 units Lactulose (Lactulose Liq) 30 ml PO DAILY PRN PRN Reason: SEVERE CONSITIPATION Ondansetron HCl (Zofran Odt) 4 mg PO Q6H PRN PRN Reason: nausea or vomiting Sennosides (Senokot) 17.2 mg PO Q12H PRN PRN Reason: Moderate Constipation Exam Vital signs: Vital Signs 02/05/18 18:26 02/05/18 19:53 02/05/18 20:29 Temperature 98.1 F Pulse Rate 82 98 H 95 H Respiratory Rate 18 20 18 Blood Pressure 139/102 H 138/102 H 152/114 H Pulse Oximetry 96 95 02/05/18 20:40 02/05/18 23:50 02/06/18 00:00 Temperature 97.7 F Pulse Rate 92 H 92 H 75 Respiratory Rate 18 Blood Pressure 155/103 H Pulse Oximetry 95 02/06/18 03:50 02/06/18 04:00 02/06/18 08:00 Temperature 97.5 F L 98.0 F Pulse Rate 73 93 H 85 Respiratory Rate 18 20 Blood Pressure 140/107 H 147/114 H Pulse Oximetry 98 98 02/06/18 08:25 02/06/18 09:00 02/06/18 12:00 Temperature Pulse Rate 85 85 79 Respiratory Rate 18 Blood Pressure Pulse Oximetry 95 Intake & Output 02/05/18 02/06/18 02/06/18 18:59 06:59 18:59 Intake Total 120 / 120 Output Total 900 / 900 Balance -780 / -780 Weight 87.543 kg 87.6 kg Intake: Oral 120 / 120 Output: Urine 900 / 900 Other: Date of Last Bowel Movement 02/05/18 Weight On Admission 87.4 kg - Constitutional no acute distress - Routine HEENT Exam Head: Present: normocephalic Eye: Present: PERRL ENT: Present: mucous membranes moist - Routine Neck Exam Present: supple - Routine Respiratory Exam Present: crackles Comments: crackles noted bilateral LL - Routine Cardiovascular Exam Present: RRR, S1, S2. Absent: murmur, gallop, rubs - Routine Abdominal Exam Present: soft - Routine Extremities Exam Present: edema Comments: 2+ edema LE - Routine Skin Exam Present: intact - Routine Neurological Exam Present: oriented X3 Results 02/05/18 16:54 02/06/18 05:10 Cardiac Enzymes 02/05/18 02/05/18 02/06/18 Range/Units 16:54 16:54 05:10 AST 18 (15-37) U/L Troponin I 0.02 (0.02-0.05) ng/mL B-Natriuretic Peptide Greater than 5000 H Greater than 5000 H (0-100) pg/mL Coagulation 02/05/18 02/06/18 Range/Units 16:54 05:10 B-Natriuretic Peptide Greater than 5000 H Greater than 5000 H (0-100) pg/mL CBC 02/05/18 Range/Units 16:54 WBC 6.0 (4.0-11.0) th/mm3 RBC 4.82 (4.00-5.30) mil/mm3 Hgb 12.0 (11.6-15.3) gm/dL Hct 36.5 (35.0-46.0) % Plt Count 251 (150-450) th/mm3 Neut # (Auto) 3.7 (1.8-7.7) th/mm3 Lymph # (Auto) 1.2 (1.0-4.8) th/mm3 [place] # (Auto) 1.0 H (0.0-0.9) th/mm3 Eos # (Auto) 0.0 (0.0-0.4) th/mm3 Baso # (Auto) 0.1 (0.0-0.2) th/mm3 Comprehensive Metabolic Panel 02/05/18 02/06/18 Range/Units 16:54 05:10 Sodium 139 138 (136-145) meq/L Potassium 3.5 3.5 (3.5-5.1) meq/L Chloride 104 106 (98-107) meq/L Carbon Dioxide 23.4 19.8 L (21.0-32.0) meq/L BUN 39 H 40 H (7-18) mg/dL Creatinine 2.01 H 1.88 H (0.50-1.00) mg/dL Calcium 8.6 8.1 L (8.5-10.1) mg/dL AST 18 (15-37) U/L ALT 23 (10-53) U/L Alkaline Phosphatase 46 (45-117) U/L Total Protein 6.1 L (6.4-8.2) g/dL Albumin 3.2 L (3.4-5.0) g/dL Intake and Output 02/06/18 02/06/18 02/06/18 06:59 14:59 22:59 Intake Total 120 / 120 Output Total 900 / 900 Balance - / -780 Intake: Oral 120 / 120 Output: Urine 900 / 900 Other: Weight 87.6 kg EKG interpretations - EKG EKG results cardiology: sinus rhythm Assessment and Plan - Assessment (1) Acute exacerbation of CHF (congestive heart failure) Code(s): I50.9 - Heart failure, unspecified Status: Acute (2) Fluid overload Code(s): E87.70 - Fluid overload, unspecified Status: Acute (3) CKD (chronic kidney disease) Code(s): N18.9 - Chronic kidney disease, unspecified Status: Acute (4) Hypertension Code(s): I10 - Essential (primary) hypertension Status: Acute - Plan Continue current program for CHF exacerbation and fluid overload with IV diuresis closely monitoring renal fx. 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 Nephrology has already been consulted to evaluate pt due to worsening kidney function and fluid retention. Continue with current cardiac treatment plan including LifeVest. The patient was seen and evaluated by Dr. Mae who participated in care, management and decision making. <Kvng Mae - Last Filed: 02/06/18 17:22> History of Present Illness Primary Care Provider: Melissa Monreal MD, R3 [facility] - Medical History Medical History: Medical History (Last Reviewed 02/05/18 @ 19:43 by Manjula Rodriguez MD) Bronchitis CHF (congestive heart failure) CVA (cerebral vascular accident) Coronary artery disease Fibromyalgia Hypertension Myocardial infarction - Family History Family History: Family History (Last Updated 02/05/18 @ 23:10 by Bebe Raymond MD, R2) Father CAD (coronary artery disease) Myocardial infarction Brother CAD (coronary artery disease) Myocardial infarction Other Malignant neoplasm Medications and Allergies Active Medications: Active Medications Al Hydroxide/Mg Hydroxide (Milk Of Everardo Lilisa) 30 ml PO Q12H PRN PRN Reason: Mild Constipation Albuterol (Duoneb Neb (Prn)) 1 ampul NEB Q4HR NEB PRN PRN Reason: cough Albuterol (Duoneb Neb (James)) 1 ampul NEB Q6HR WHILE AWAKE NEB JAMES Last Admin: 02/06/18 14:11 Dose: Not Given Bisacodyl (Dulcolax Supp) 10 mg RECTAL DAILY PRN PRN Reason: SEVERE CONSITIPATION Furosemide (Lasix Inj) 20 mg IV.PUSH BID@0900,1800 [facility] Last Admin: 02/06/18 10:13 Dose: 20 mg Heparin Sodium (Porcine) (Heparin Inj) 5,000 units SQ Q12H [facility] Last Admin: 02/06/18 10:13 Dose: 5,000 units Lactulose (Lactulose Liq) 30 ml PO DAILY PRN PRN Reason: SEVERE CONSITIPATION Ondansetron HCl (Zofran Odt) 4 mg PO Q6H PRN PRN Reason: nausea or vomiting Sennosides (Senokot) 17.2 mg PO Q12H PRN PRN Reason: Moderate Constipation Exam Vital signs: Vital Signs 02/05/18 18:26 02/05/18 19:53 02/05/18 20:29 Temperature 98.1 F Pulse Rate 82 98 H 95 H Respiratory Rate 18 20 18 Blood Pressure 139/102 H 138/102 H 152/114 H Pulse Oximetry 96 95 02/05/18 20:40 02/05/18 23:50 02/06/18 00:00 Temperature 97.7 F Pulse Rate 92 H 92 H 75 Respiratory Rate 18 Blood Pressure 155/103 H Pulse Oximetry 95 02/06/18 03:50 02/06/18 04:00 02/06/18 08:00 Temperature 97.5 F L 98.0 F Pulse Rate 73 93 H 85 Respiratory Rate 18 20 Blood Pressure 140/107 H 147/114 H Pulse Oximetry 98 98 02/06/18 08:25 02/06/18 09:00 02/06/18 12:00 Temperature Pulse Rate 85 85 79 Respiratory Rate 18 Blood Pressure Pulse Oximetry 95 02/06/18 16:00 Temperature Pulse Rate 82 Respiratory Rate Blood Pressure Pulse Oximetry Intake & Output 02/05/18 02/06/18 02/06/18 18:59 06:59 18:59 Intake Total 120 / 120 Output Total 900 / 900 Balance -780 / -780 Weight 193 lb 193 lb 1.999 oz Intake: Oral 120 / 120 Output: Urine 900 / 900 Other: Date of Last Bowel Movement 02/05/18 Weight On Admission 192 lb 10.944 oz Results 02/05/18 16:54 02/06/18 05:10 Cardiac Enzymes 02/05/18 02/05/18 02/06/18 Range/Units 16:54 16:54 05:10 AST 18 (15-37) U/L Troponin I 0.02 (0.02-0.05) ng/mL B-Natriuretic Peptide Greater than 5000 H Greater than 5000 H (0-100) pg/mL Coagulation 02/05/18 02/06/18 Range/Units 16:54 05:10 B-Natriuretic Peptide Greater than 5000 H Greater than 5000 H (0-100) pg/mL Comprehensive Metabolic Panel 02/05/18 02/06/18 Range/Units 16:54 05:10 Sodium 139 138 (136-145) meq/L Potassium 3.5 3.5 (3.5-5.1) meq/L Chloride 104 106 (98-107) meq/L Carbon Dioxide 23.4 19.8 L (21.0-32.0) meq/L BUN 39 H 40 H (7-18) mg/dL Creatinine 2.01 H 1.88 H (0.50-1.00) mg/dL Calcium 8.6 8.1 L (8.5-10.1) mg/dL AST 18 (15-37) U/L ALT 23 (10-53) U/L Alkaline Phosphatase 46 (45-117) U/L Total Protein 6.1 L (6.4-8.2) g/dL Albumin 3.2 L (3.4-5.0) g/dL Intake and Output 02/06/18 02/06/18 02/06/18 06:59 14:59 22:59 Intake Total 120 / 120 Output Total 900 / 900 Balance -780 / -780 Intake: Oral 120 / 120 Output: Urine 900 / 900 Other: Weight 193 lb 1.999 oz Assessment and Plan - Assessment (1) Acute exacerbation of CHF (congestive heart failure) Code(s): I50.9 - Heart failure, unspecified Status: Acute (2) Fluid overload Code(s): E87.70 - Fluid overload, unspecified Status: Acute (3) CKD (chronic kidney disease) Code(s): N18.9 - Chronic kidney disease, unspecified Status: Acute (4) Hypertension Code(s): I10 - Essential (primary) hypertension Status: Acute - Attending Attestation Patient seen and examined. I reviewed and agree with the evaluation and plan as presented. Continue current program for CHF. Nephrology evaluation in progress. LifeVest in place. <Sarai Garza - Last Filed: 02/06/18 16:44> (1) Acute exacerbation of CHF (congestive heart failure) Qualifiers: Heart failure type: unspecified Qualified Code(s): I50.9 - Heart failure, unspecified (2) Fluid overload Qualifiers: Hypervolemia type: unspecified Qualified Code(s): E87.70 - Fluid overload, unspecified (3) CKD (chronic kidney disease) Qualifiers: Chronic kidney disease stage: unspecified stage Qualified Code(s): N18.9 - Chronic kidney disease, unspecified <Kvng Mae - Last Filed: 02/06/18 17:22> (1) Acute exacerbation of CHF (congestive heart failure) Qualifiers: Qualified Code(s): I50.9 - Heart failure, unspecified (2) Fluid overload Qualifiers: Qualified Code(s): E87.70 - Fluid overload, unspecified (3) CKD (chronic kidney disease) Qualifiers: Qualified Code(s): N18.9 - Chronic kidney disease, unspecified
--- NOTE | 2018-02-06 21:04 | US ---
EXAM DATE: 02/06/2018 8:25 PM EDT AGE/SEX: 67 years / Female INDICATIONS: Increased lab values. CLINICAL DATA: This is the patient's initial encounter. Patient reports that signs and symptoms have been present for 1 day and indicates a pain score of 0/10. MEDICAL/SURGICAL HISTORY: Congestive heart failure. Hypertension. Coronary artery disease. Cer ebral vascular accident. Fibromyalgia. Myocardial infarction. . COMPARISON: [facility], US ABDOMEN COMPLETE, 01/01/2018. [facility], CTA THORACIC ABDOMINAL AORTA W 3D RECON, 08/13/2017. . MEASUREMENTS: Right Kidney:__10.4 x 4.9 x 4.2 cm Left Kidney:__9.2 x 4.9 x 4.8 cm FINDINGS: Right Kidney: Increased echotexture. No mass or hydronephrosis. There is a 5 mm echogenic focus witho ut shadowing seen in the lower pole. This is nonspecific. Left Kidney: Increased echotexture. No mass or hydronephrosis. Bladder: Within normal limits given the degree of distension. Other: None. CONCLUSION: 1. Increased echogenicity of the kidneys bilaterally consistent with medical renal disease. 2. Small 0.5 cm echogenic focus without shadowing the lower pole the right kidney. This is nonspecif ic. Renal stone could have this appearance however no renal stone seen on the prior CTA. CTA is more specific in evaluating calcifications. Electronically signed by: Trung Rothman MD 02/06/2018 9:03 PM EDT
[2018-02-07] MEDS: Heparin - SQ 10,000 UNITS/ML Vial SQ SCH ×2 (08:22→21:04)
--- NOTE | 2018-02-07 08:48 | P.PNFP ---
Subjective Interval history: No acute events overnight. Afebrile, vital signs stable. Patient seen and examined this morning, denies dyspnea. She states she feels as if her lower extremity swelling has not significantly improved since admission. Reports she has been restricting her fluid intake. Endorses good urine output. 2400 cc UOP noted. She specifically denies fevers or chills, chest pain, palpitations, abdominal pain. <Remington Stone - 02/07/18 11:35> Results - Labs Result diagrams: 02/05/18 16:54 02/08/18 08:46 <Jesus Medrano - 02/08/18 12:36> Abnormal lab results 02/08/18 Range/Units 08:46 Potassium 3.0 L (3.5-5.1) meq/L BUN 41 H (7-18) mg/dL Creatinine 1.53 H (0.50-1.00) mg/dL Estimated GFR 41 L (>89) mL/min Random Glucose 73 L (74-106) mg/dL Calcium 8.2 L (8.5-10.1) mg/dL BMP 02/08/18 08:46 Sodium 143 Potassium 3.0 L Chloride 106 Carbon Dioxide 26.2 BUN 41 H Creatinine 1.53 H Calcium 8.2 L Urine 02/07/18 Range/Units 22:40 Urine Color Straw (Yellw/Straw) Urine Clarity Clear (Clear) Urine pH 5.0 (5.0-8.5) Ur Specific [place] 1.006 (1.002-1.035) Urine Protein Negative (Neg-Trace) mg/dL Urine Glucose (UA) Negative (Negative) mg/dL <Jesus Medrano - 02/08/18 12:36> - Imaging Impressions Abdomen/Bladder Ultrasound 02/06/18 17:26 CONCLUSION: 1. Increased echogenicity of the kidneys bilaterally consistent with medical renal disease. 2. Small 0.5 cm echogenic focus without shadowing the lower pole the right kidney. This is nonspecific. Renal stone could have this appearance however no renal stone seen on the prior CTA. CTA is more specific in evaluating calcifications. <Remington Stone - 02/07/18 08:48> Physical Exam Vital signs: Vital Signs 02/07/18 16:00 02/07/18 20:00 02/07/18 22:00 Temperature 97.1 F L 97.3 F L Pulse Rate 85 89 92 H Respiratory Rate 18 18 Blood Pressure 136/105 H 159/117 H Pulse Oximetry 97 99 02/08/18 00:00 02/08/18 04:00 02/08/18 04:27 Temperature 97.6 F 98.2 F Pulse Rate 75 85 68 Respiratory Rate 18 18 Blood Pressure 131/97 H 145/106 H Pulse Oximetry 18 L 97 02/08/18 08:25 Temperature Pulse Rate 87 Respiratory Rate 18 Blood Pressure Pulse Oximetry 95 Intake & Output 02/07/18 02/08/18 02/08/18 18:59 06:59 18:59 Intake Total 520 / 520 480 / 480 Output Total 1400 / 1400 1000 / 1000 Balance -880 / -880 -520 / -520 Weight 89.1 kg Intake: Oral 520 / 520 480 / 480 Output: Urine 1400 / 1400 1000 / 1000 Other: # Bowel Movements 0 0 <Jesus Medrano - 02/08/18 12:36> Vital Signs 02/06/18 09:00 02/06/18 12:00 02/06/18 16:00 Temperature 98.9 F 98.6 F Pulse Rate 85 90 74 Respiratory Rate 18 18 Blood Pressure 118/99 H 118/98 H Pulse Oximetry 98 97 02/06/18 19:40 02/06/18 19:50 02/06/18 20:00 Temperature 98.3 F Pulse Rate 81 82 84 Respiratory Rate 17 18 Blood Pressure 136/102 H Pulse Oximetry 98 02/06/18 23:53 02/07/18 00:00 02/07/18 03:44 Temperature 97.6 F Pulse Rate 77 86 86 Respiratory Rate 18 Blood Pressure 139/112 H Pulse Oximetry 98 02/07/18 04:00 02/07/18 08:22 02/07/18 08:25 Temperature 97.4 F L Pulse Rate 85 72 Respiratory Rate 18 20 Blood Pressure 137/113 H Pulse Oximetry 97 97 Intake & Output 02/06/18 02/07/18 02/07/18 18:59 06:59 18:59 Intake Total 720 / 720 120 / 120 Output Total 400 / 400 1999 Balance 320 / 320 -1880 / -1880 Weight 89.2 kg Intake: Oral 720 / 720 120 / 120 Output: Urine 400 / 400 1999 Other: Date of Last Bowel Movement 02/05/18 # Bowel Movements 0 0 <Remington Stone - 02/07/18 08:48> Narrative: GENERAL: NAD, sitting in bed NEURO: Alert. Normal speech. Very mild left sided facial droop. Left sided strength 4/5. Sensation intact to light touch. SKIN: Warm and dry. HEAD: Normocephalic. Atraumatic. EYES: EOMI. No injection or drainage. ENT: No nasal drainage. Moist mucous membranes. NECK: Supple, trachea midline. JVD present bilaterally. CARDIOVASCULAR: Regular rate and rhythm, holosystolic murmur best auscultated left upper sternal border. Peripheral pulses 2+. Capillary refill < 2 seconds. RESPIRATORY: Breath sounds equal, bibasilar rales less prominent than prior exam on 02/06. No rhonchi or wheezing. No accessory muscle use. GASTROINTESTINAL: Abdomen soft, nontender, protuberant. No rebound tenderness. No guarding. MUSCULOSKELETAL: 3+ lower extremity edema bilaterally up to mid-thighs. Normal range of motion. BACK: Nontender without obvious deformity. <Remington Stone - 02/07/18 11:35> Assessment and Plan - Assessment (1) Acute exacerbation of CHF (congestive heart failure) Code(s): I50.9 - Heart failure, unspecified Status: Acute Plan: Patient with a 2 week history of worsening shortness of breath and lower extremity edema associated with increased weight gain. received Lasix 40 IV 1 in the ED BNP found to be greater than 5000 Chest x-ray showed stable cardiomegaly and atelectasis within the mid lung lai bilaterally EKG: Sinus rhythm vital signs stable, in no acute distress Patient had echo done on 11/16/17 which showed EF of 25-30% and moderate tricuspid regurgitation. Repeat echo done on 01/18/18 showed EF of 20%, moderate to severe mitral and tricuspid regurgitation, and left atrial enlargement. 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 Mae), appreciate recommendations (2) CKD (chronic kidney disease) Code(s): N18.9 - Chronic kidney disease, unspecified Status: Acute Plan: Patient with increased creatinine of 2.01 on admission, improving Per chart review patient with fluctuating creatinine levels since 06/2017 ranging from 0.70-1.91. Most recent CR of 1.91 in 12/09/17. Patient reports decrease in Lasix and discontinuation of enalapril by wrapper rewinder Dr. Mae due to her worsening kidney function. Patient also reports that she is scheduled to see a second steward on 02/22/18 for this issue. Continue to monitor Cr and I/Os Nephrology consulted, appreciate recommendations (3) Hypertension Code(s): I10 - Essential (primary) hypertension Status: Acute Plan: BPs elevated ranging 130s-150s/90s-110s Continue home carvedilol 25 mg po bid Continue to monitor vitals Continue diuresis as above (4) Nutrition, metabolism, and development symptoms Code(s): R63.8 - Other symptoms and signs concerning food and fluid intake Status: Acute Plan: Fluids: Not indicated Electrolytes: Replete as needed, continue to monitor K+ Diet: Cardiac diet with sodium restriction of less than 2 g per day and fluid restriction of less than 1.5 L per day DVT prophylaxis: Heparin SQ Q12 <Remington Stone - 02/07/18 11:24> - Attending Attestation See the residents documentation for details. I saw and evaluated the patient regarding the perez portions of this evaluation and agree with the residents findings and plans as written. Parts of this note were created using [employer] voice recognition software program. While efforts were made to correct any mistakes made by this software, some mistakes, errors, and omissions may remain in the final note that were not caught when the note was originally created. Plan of care was discussed and agreed upon with the patient as specifically documented in the above note. An opportunity to ask questions with explanation was provided. Patient voiced understanding on all information reviewed and discussed. <Jesus Medrano - 02/08/18 12:36> <Gavin Stonesh - Last Filed: 02/07/18 11:24> (1) Acute exacerbation of CHF (congestive heart failure) Qualifiers: Heart failure type: unspecified Qualified Code(s): I50.9 - Heart failure, unspecified (2) CKD (chronic kidney disease) Qualifiers: Chronic kidney disease stage: unspecified stage Qualified Code(s): N18.9 - Chronic kidney disease, unspecified <Remington Stone - Last Filed: 02/07/18 11:24> (1) Acute exacerbation of CHF (congestive heart failure) Qualifiers: Heart failure type: unspecified Qualified Code(s): I50.9 - Heart failure, unspecified (2) CKD (chronic kidney disease) Qualifiers: Chronic kidney disease stage: unspecified stage Qualified Code(s): N18.9 - Chronic kidney disease, unspecified
[2018-02-07 10:53] LABS: Calcium 8.3 mg/dL (8.5-10.1); Potassium 3.2 meq/L (3.5-5.1)
--- NOTE | 2018-02-07 12:43 | P.PNNP ---
Subjective Interval history: Sitting on edge of bed. Renal function is better, edema persists. <KarstenIesla Sherri - Last Filed: 02/07/18 12:37> Physical Exam Vital signs: Vital Signs 02/06/18 16:00 02/06/18 19:40 02/06/18 19:50 Temperature 98.6 F Pulse Rate 74 81 82 Respiratory Rate 18 17 Blood Pressure 118/98 H Pulse Oximetry 97 02/06/18 20:00 02/06/18 23:53 02/07/18 00:00 Temperature 98.3 F 97.6 F Pulse Rate 84 77 86 Respiratory Rate 18 18 Blood Pressure 136/102 H 139/112 H Pulse Oximetry 98 98 02/07/18 03:44 02/07/18 04:00 02/07/18 08:00 Temperature 97.4 F L 97.1 F L Pulse Rate 86 85 95 H Respiratory Rate 18 18 Blood Pressure 137/113 H 132/110 H Pulse Oximetry 97 96 02/07/18 08:22 02/07/18 08:25 02/07/18 09:00 Temperature Pulse Rate 72 92 H Respiratory Rate 20 Blood Pressure Pulse Oximetry 97 02/07/18 10:15 02/07/18 12:15 Temperature Pulse Rate 77 Respiratory Rate 20 Blood Pressure 141/86 H Pulse Oximetry Intake & Output 02/06/18 02/07/18 02/07/18 18:59 06:59 18:59 Intake Total 720 / 720 120 / 120 Output Total 400 / 400 1999 / 1999 Balance 320 / 320 -1880 / -1880 Weight 89.2 kg Intake: Oral 720 / 720 120 / 120 Output: Urine 400 / 400 1999 Other: Date of Last Bowel Movement 02/05/18 # Bowel Movements 0 0 - Constitutional no acute distress, cooperative - Routine HEENT Exam Head: Present: normocephalic - Routine Neck Exam Present: supple, full ROM. Absent: JVD - Routine Respiratory Exam Present: CTA bilaterally. Absent: accessory muscle use - Routine Cardiovascular Exam Present: RRR, S1, S2 Comments: life vest in place - Routine Abdominal Exam Present: soft, normoactive bowel sounds - Routine Skin Exam Present: intact, dry, warm - Routine Neurological Exam Present: alert, oriented X3, CN II-XII intact - Detailed Neurological Exam: Coma Scale Eye Opening: Spontaneous Verbal Response: Oriented Motor Response: Obey commands [place] Coma Scale Total: 15 - Routine Psychiatric Exam Present: normal affect, normal thought process <Isela Shelley - Last Filed: 02/07/18 12:37> Vital signs: Vital Signs 02/06/18 19:50 02/06/18 20:00 02/06/18 23:53 Temperature 98.3 F Pulse Rate 82 84 77 Respiratory Rate 18 Blood Pressure 136/102 H Pulse Oximetry 98 02/07/18 00:00 02/07/18 03:44 02/07/18 04:00 Temperature 97.6 F 97.4 F L Pulse Rate 86 86 85 Respiratory Rate 18 18 Blood Pressure 139/112 H 137/113 H Pulse Oximetry 98 97 02/07/18 08:00 02/07/18 08:22 02/07/18 08:25 Temperature 97.1 F L Pulse Rate 95 H 72 Respiratory Rate 18 20 Blood Pressure 132/110 H Pulse Oximetry 96 97 02/07/18 09:00 02/07/18 10:15 02/07/18 12:00 Temperature 97.1 F L Pulse Rate 92 H 95 H Respiratory Rate 18 Blood Pressure 141/86 H 135/104 H Pulse Oximetry 97 02/07/18 12:15 02/07/18 16:00 Temperature 97.1 F L Pulse Rate 77 85 Respiratory Rate 20 18 Blood Pressure 136/105 H Pulse Oximetry 97 Intake & Output 02/07/18 02/07/18 02/08/18 06:59 18:59 06:59 Intake Total 120 / 120 520 / 520 Output Total 1999 1400 / 1400 Balance -1880 / -1880 -880 / -880 Weight 89.2 kg Intake: Oral 120 / 120 520 / 520 Output: Urine 1999 1400 / 1400 Other: # Bowel Movements 0 0 <Pedro López - Last Filed: 02/07/18 19:45> Assessment and Plan - Assessment (1) Acute worsening of stage 3 chronic kidney disease Code(s): N18.3 - Chronic kidney disease, stage 3 (moderate) Status: Acute Plan: ARIANA due to decompensated CHF and increased renal vein pressure. She needs diuresis. On Lasix 40 mg IV BID. Renal function is improving. Continue diuretic carefully. Monitor urine output and renal function, currently non oliguric. Renal US negative for acute issues Awaiting UA Avoid nephrotoxic agents. Obtain daily labs. (2) Acute exacerbation of CHF (congestive heart failure) Code(s): I50.9 - Heart failure, unspecified Status: Acute Qualifiers: Heart failure type: unspecified Qualified Code(s): I50.9 - Heart failure, unspecified Plan: Acute exacerbation. Monitor fluid status with diuresis, goal to achieve negative balance. Cardiology following. EF thought to be 20-25%. Life vest is in place. (3) Hypertension Code(s): I10 - Essential (primary) hypertension Status: Acute Plan: Monitor BP. Low salt diet advised. <Isela Shelley - Last Filed: 02/07/18 12:37> - Assessment (1) Acute worsening of stage 3 chronic kidney disease Code(s): N18.3 - Chronic kidney disease, stage 3 (moderate) Status: Acute (2) Acute exacerbation of CHF (congestive heart failure) Code(s): I50.9 - Heart failure, unspecified Status: Acute Qualifiers: Heart failure type: unspecified Qualified Code(s): I50.9 - Heart failure, unspecified (3) Hypertension Code(s): I10 - Essential (primary) hypertension Status: Acute - Attending Attestation patient was seen and examined. Agree with above assessment and plan. Renal function is improving. Correct hypokalemia <Pedro López - Last Filed: 02/07/18 19:45>
--- NOTE | 2018-02-07 14:10 | P.PNCA ---
<Sarai Garza N - Last Filed: 02/07/18 13:57> Subjective Interval history: Pt denies any CP, pressure, palpitations, dizziness or SOB. Pt states she is feeling better. Physical Exam Vital signs: Vital Signs 02/06/18 16:00 02/06/18 19:40 02/06/18 19:50 Temperature 98.6 F Pulse Rate 74 81 82 Respiratory Rate 18 17 Blood Pressure 118/98 H Pulse Oximetry 97 02/06/18 20:00 02/06/18 23:53 02/07/18 00:00 Temperature 98.3 F 97.6 F Pulse Rate 84 77 86 Respiratory Rate 18 18 Blood Pressure 136/102 H 139/112 H Pulse Oximetry 98 98 02/07/18 03:44 02/07/18 04:00 02/07/18 08:00 Temperature 97.4 F L 97.1 F L Pulse Rate 86 85 95 H Respiratory Rate 18 18 Blood Pressure 137/113 H 132/110 H Pulse Oximetry 97 96 02/07/18 08:22 02/07/18 08:25 02/07/18 09:00 Temperature Pulse Rate 72 92 H Respiratory Rate 20 Blood Pressure Pulse Oximetry 97 02/07/18 10:15 02/07/18 12:00 02/07/18 12:15 Temperature 97.1 F L Pulse Rate 95 H 77 Respiratory Rate 18 20 Blood Pressure 141/86 H 135/104 H Pulse Oximetry 97 Intake & Output 02/06/18 02/07/18 02/07/18 18:59 06:59 18:59 Intake Total 720 / 720 120 / 120 Output Total 400 / 400 1999 Balance 320 / 320 -1880 / -1880 Weight 89.2 kg Intake: Oral 720 / 720 120 / 120 Output: Urine 400 / 400 1999 Other: Date of Last Bowel Movement 02/05/18 # Bowel Movements 0 0 - Constitutional no acute distress - Routine HEENT Exam Head: Present: normocephalic Eye: Present: PERRL ENT: Present: mucous membranes moist - Routine Neck Exam Present: supple - Routine Respiratory Exam Present: crackles. Absent: accessory muscle use, rhonchi, stridor, wheezes Comments: pt has fine crackles noted bilateral in LL - Routine Cardiovascular Exam Present: S1, S2. Absent: murmur, gallop, rubs - Routine Abdominal Exam Present: soft - Routine Extremities Exam Present: edema, pulses intact, normal capillary refill Comments: 2 edema bilateral LE - Routine Skin Exam Present: intact - Routine Neurological Exam Present: oriented X3 - Detailed Neurological Exam: Coma Scale Eye Opening: Spontaneous Verbal Response: Oriented Motor Response: Obey commands [place] Coma Scale Total: 15 - Routine Psychiatric Exam Present: normal affect Assessment and Plan - Assessment (1) Acute exacerbation of CHF (congestive heart failure) Code(s): I50.9 - Heart failure, unspecified Status: Acute (2) Fluid overload Code(s): E87.70 - Fluid overload, unspecified Status: Acute (3) CKD (chronic kidney disease) Code(s): N18.9 - Chronic kidney disease, unspecified Status: Acute (4) Hypertension Code(s): I10 - Essential (primary) hypertension Status: Acute - Plan Continue with current CHF treatment plan and IV diuresis, edema slowly improving. Nephrology evaluation in progress. Continue with current cardiac treatment plan including LifeVest. The patient was seen and evaluated by Dr. Mae who participated in care, management and decision making. <Kvng Mae - Last Filed: 02/07/18 15:43> Physical Exam Vital signs: Vital Signs 02/06/18 16:00 02/06/18 19:40 02/06/18 19:50 Temperature 98.6 F Pulse Rate 74 81 82 Respiratory Rate 18 17 Blood Pressure 118/98 H Pulse Oximetry 97 02/06/18 20:00 02/06/18 23:53 02/07/18 00:00 Temperature 98.3 F 97.6 F Pulse Rate 84 77 86 Respiratory Rate 18 18 Blood Pressure 136/102 H 139/112 H Pulse Oximetry 98 98 02/07/18 03:44 02/07/18 04:00 02/07/18 08:00 Temperature 97.4 F L 97.1 F L Pulse Rate 86 85 95 H Respiratory Rate 18 18 Blood Pressure 137/113 H 132/110 H Pulse Oximetry 97 96 02/07/18 08:22 02/07/18 08:25 02/07/18 09:00 Temperature Pulse Rate 72 92 H Respiratory Rate 20 Blood Pressure Pulse Oximetry 97 02/07/18 10:15 02/07/18 12:00 02/07/18 12:15 Temperature 97.1 F L Pulse Rate 95 H 77 Respiratory Rate 18 20 Blood Pressure 141/86 H 135/104 H Pulse Oximetry 97 Intake & Output 02/06/18 02/07/18 02/07/18 18:59 06:59 18:59 Intake Total 720 / 720 120 / 120 Output Total 400 / 400 1999 Balance 320 / 320 -1880 / -1880 Weight 196 lb 10.437 oz Intake: Oral 720 / 720 120 / 120 Output: Urine 400 / 400 1999 Other: Date of Last Bowel Movement 02/05/18 # Bowel Movements 0 0 Assessment and Plan - Assessment (1) Acute exacerbation of CHF (congestive heart failure) Code(s): I50.9 - Heart failure, unspecified Status: Acute (2) Fluid overload Code(s): E87.70 - Fluid overload, unspecified Status: Acute (3) CKD (chronic kidney disease) Code(s): N18.9 - Chronic kidney disease, unspecified Status: Acute (4) Hypertension Code(s): I10 - Essential (primary) hypertension Status: Acute - Attending Attestation Patient seen and examined. I reviewed and agree with the evaluation and plan as presented. Continue tx for CHF including diuresis. Nephrology evaluation. LifeVest in place. <Sarai Garza N - Last Filed: 02/07/18 13:57> (1) Acute exacerbation of CHF (congestive heart failure) Qualifiers: Heart failure type: unspecified Qualified Code(s): I50.9 - Heart failure, unspecified (2) Fluid overload Qualifiers: Hypervolemia type: unspecified Qualified Code(s): E87.70 - Fluid overload, unspecified (3) CKD (chronic kidney disease) Qualifiers: Chronic kidney disease stage: unspecified stage Qualified Code(s): N18.9 - Chronic kidney disease, unspecified <Kvng Mae - Last Filed: 02/07/18 15:43> (1) Acute exacerbation of CHF (congestive heart failure) Qualifiers: Heart failure type: unspecified Qualified Code(s): I50.9 - Heart failure, unspecified (2) Fluid overload Qualifiers: Hypervolemia type: unspecified Qualified Code(s): E87.70 - Fluid overload, unspecified (3) CKD (chronic kidney disease) Qualifiers: Chronic kidney disease stage: unspecified stage Qualified Code(s): N18.9 - Chronic kidney disease, unspecified
[2018-02-07 23:09] LABS: Bilirubin,Urine Negative (Negative); Clarity,Urine Clear (Clear); Color,Urine Straw (Yellw/Straw); Glucose,Urine (UA) Negative (Negative); Hyaline Casts,Urine 3 /lpf (0-3); Leukocyte Esterase,Urine Negative (Negative); Nitrite,Urine Negative (Negative); Specific Gravity,Urine 1.006 (1.002-1.035); Squamous Epithelial Cell,Urine 2 /hpf (0-5)
--- NOTE | 2018-02-08 09:31 | P.PNFP ---
Subjective Interval history: No acute events overnight. Afebrile, BPs ranging 130s-150s/ 80s-110s past 24 hours. Edema has improved. 2400 cc UOP noted. Patient denies dyspnea, headaches, chest pain, palpitations, pain. <Gavin Stonesh - 02/08/18 13:16> Results - Labs Result diagrams: 02/05/18 16:54 02/09/18 07:14 <Jesus Medrano - 02/09/18 12:10> Abnormal lab results 02/09/18 Range/Units 07:14 BUN 38 H (7-18) mg/dL Creatinine 1.38 H (0.50-1.00) mg/dL Estimated GFR 46 L (>89) mL/min Calcium 8.3 L (8.5-10.1) mg/dL BMP 02/09/18 07:14 Sodium 143 Potassium 3.5 Chloride 106 Carbon Dioxide 26.1 BUN 38 H Creatinine 1.38 H Calcium 8.3 L <Jesus Medrano - 02/09/18 12:10> Abnormal lab results 02/07/18 Range/Units 09:11 Potassium 3.2 L (3.5-5.1) meq/L BUN 43 H (7-18) mg/dL Creatinine 1.77 H (0.50-1.00) mg/dL Estimated GFR 35 L (>89) mL/min Calcium 8.3 L (8.5-10.1) mg/dL BMP 02/07/18 09:11 Sodium 143 Potassium 3.2 L Chloride 105 Carbon Dioxide 27.0 BUN 43 H Creatinine 1.77 H Calcium 8.3 L Urine 02/07/18 Range/Units 22:40 Urine Color Straw (Yellw/Straw) Urine Clarity Clear (Clear) Urine pH 5.0 (5.0-8.5) Ur Specific [place] 1.006 (1.002-1.035) Urine Protein Negative (Neg-Trace) mg/dL Urine Glucose (UA) Negative (Negative) mg/dL <Gavin Stonesh - 02/08/18 09:31> Physical Exam Vital signs: Vital Signs 02/08/18 16:00 02/08/18 19:20 02/08/18 20:00 Temperature 97.8 F 97.6 F Pulse Rate 89 76 74 Respiratory Rate 16 18 16 Blood Pressure 147/105 H 129/87 Pulse Oximetry 97 93 L 100 02/09/18 00:00 02/09/18 04:00 02/09/18 08:00 Temperature 97.5 F L 97.5 F L 97.9 F Pulse Rate 68 79 73 Respiratory Rate 16 17 18 Blood Pressure 127/85 127/97 H 131/101 H Pulse Oximetry 96 98 95 Intake & Output 02/08/18 02/09/18 02/09/18 18:59 06:59 18:59 Intake Total 540 / 540 480 / 480 Output Total 1100 / 1100 400 / 400 Balance -560 / -560 80 / 80 Weight 84.9 kg Intake: Oral 540 / 540 480 / 480 Output: Urine 1100 / 1100 400 / 400 Other: Date of Last Bowel Movement 02/05/18 # Bowel Movements 0 <Jesus Medrano - 02/09/18 12:10> Vital Signs 02/07/18 10:15 02/07/18 12:00 02/07/18 12:15 Temperature 97.1 F L Pulse Rate 95 H 77 Respiratory Rate 18 20 Blood Pressure 141/86 H 135/104 H Pulse Oximetry 97 02/07/18 16:00 02/07/18 20:00 02/07/18 22:00 Temperature 97.1 F L 97.3 F L Pulse Rate 85 89 92 H Respiratory Rate 18 18 Blood Pressure 136/105 H 159/117 H Pulse Oximetry 97 99 02/08/18 00:00 02/08/18 04:00 02/08/18 04:27 Temperature 97.6 F 98.2 F Pulse Rate 75 85 68 Respiratory Rate 18 18 Blood Pressure 131/97 H 145/106 H Pulse Oximetry 18 L 97 Intake & Output 02/07/18 02/08/18 02/08/18 18:59 06:59 18:59 Intake Total 520 / 520 480 / 480 Output Total 1400 / 1400 1000 / 1000 Balance -880 / -880 -520 / -520 Weight 89.1 kg Intake: Oral 520 / 520 480 / 480 Output: Urine 1400 / 1400 1000 / 1000 Other: # Bowel Movements 0 0 <Remington Stone - 02/08/18 09:31> Narrative: GENERAL: NAD, sitting in bed NEURO: Alert. Normal speech. Very mild left sided facial droop. Left sided strength 4/5. Sensation intact to light touch. SKIN: Warm and dry. HEAD: Normocephalic. Atraumatic. EYES: EOMI. No injection or drainage. ENT: No nasal drainage. Moist mucous membranes. NECK: Supple, trachea midline. JVD present bilaterally. CARDIOVASCULAR: Regular rate and rhythm, holosystolic murmur best auscultated left upper sternal border. Peripheral pulses 2+. RESPIRATORY: Breath sounds equal, faint bibasilar rales. No rhonchi or wheezing. No accessory muscle use. GASTROINTESTINAL: Abdomen soft, nontender, protuberant. No rebound tenderness. No guarding. MUSCULOSKELETAL: 2+ lower extremity pre-tibial edema proximal, just distal to patella. Normal range of motion. BACK: Nontender without obvious deformity. <Gavin Stonesh - 02/08/18 13:16> Assessment and Plan - Assessment (1) Acute exacerbation of CHF (congestive heart failure) Code(s): I50.9 - Heart failure, unspecified Status: Acute Plan: Patient with a 2 week history of worsening shortness of breath and lower extremity edema associated with increased weight gain. received Lasix 40 IV 1 in the ED BNP found to be greater than 5000 Chest x-ray showed stable cardiomegaly and atelectasis within the mid lung lai bilaterally EKG: Sinus rhythm vital signs stable, in no acute distress Patient had echo done on 11/16/17 which showed EF of 25-30% and moderate tricuspid regurgitation. Repeat echo done on 01/18/18 showed EF of 20%, moderate to severe mitral and tricuspid regurgitation, and left atrial enlargement. 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 Mae), appreciate recommendations (2) CKD (chronic kidney disease) Code(s): N18.9 - Chronic kidney disease, unspecified Status: Acute Plan: Patient with increased creatinine of 2.01 on admission, improving Per chart review patient with fluctuating creatinine levels since 06/2017 ranging from 0.70-1.91. Most recent CR of 1.91 in 12/09/17. 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 Mae due to her worsening kidney function. Patient also reports that she is scheduled to see a project management professional on 02/22/18 for this issue. Continue to monitor Cr and I/Os Nephrology consulted, appreciate recommendations (3) Hypertension Code(s): I10 - Essential (primary) hypertension Status: Acute Plan: BPs elevated ranging 130s-150s/80s-110s Resume home carvedilol 25 mg po bid Continue to monitor vitals Continue diuresis as above (4) Nutrition, metabolism, and development symptoms Code(s): R63.8 - Other symptoms and signs concerning food and fluid intake Status: Acute Plan: Fluids: Not indicated Electrolytes: Replete as needed, continue to monitor K+ Diet: Cardiac diet with sodium restriction of less than 2 g per day and fluid restriction of less than 1.5 L per day DVT prophylaxis: Heparin SQ Q12 <Remington Stone - 02/08/18 13:11> - Attending Attestation See the residents documentation for details. I saw and evaluated the patient regarding the perez portions of this evaluation and agree with the residents findings and plans as written. Parts of this note were created using [email or web address] voice recognition software program. While efforts were made to correct any mistakes made by this software, some mistakes, errors, and omissions may remain in the final note that were not caught when the note was originally created. Plan of care was discussed and agreed upon with the patient as specifically documented in the above note. An opportunity to ask questions with explanation was provided. Patient voiced understanding on all information reviewed and discussed. <Jesus Medrano - 02/09/18 12:10> <Remington Stone - Last Filed: 02/08/18 13:11> (1) Acute exacerbation of CHF (congestive heart failure) Qualifiers: Heart failure type: unspecified Qualified Code(s): I50.9 - Heart failure, unspecified (2) CKD (chronic kidney disease) Qualifiers: Chronic kidney disease stage: unspecified stage Qualified Code(s): N18.9 - Chronic kidney disease, unspecified <Remington Stone - Last Filed: 02/08/18 13:11> (1) Acute exacerbation of CHF (congestive heart failure) Qualifiers: Heart failure type: unspecified Qualified Code(s): I50.9 - Heart failure, unspecified (2) CKD (chronic kidney disease) Qualifiers: Chronic kidney disease stage: unspecified stage Qualified Code(s): N18.9 - Chronic kidney disease, unspecified
[2018-02-08] MEDS: Heparin - SQ 10,000 UNITS/ML Vial SQ SCH ×2 (10:05→21:00)
[2018-02-08 10:25] LABS: Calcium 8.2 mg/dL (8.5-10.1); Carbon Dioxide 26.2 meq/L (21.0-32.0)
--- NOTE | 2018-02-08 10:32 | P.PNCA ---
<Sarai Garza N - Last Filed: 02/08/18 10:22> Subjective Interval history: Pt denies CP, pressure, palpitations, dizziness or SOB. Pt very happy this morning and states she is feeling much better and is ready to go home. Physical Exam Vital signs: Vital Signs 02/07/18 12:00 02/07/18 12:15 02/07/18 16:00 Temperature 97.1 F L 97.1 F L Pulse Rate 95 H 77 85 Respiratory Rate 18 20 18 Blood Pressure 135/104 H 136/105 H Pulse Oximetry 97 97 02/07/18 20:00 02/07/18 22:00 02/08/18 00:00 Temperature 97.3 F L 97.6 F Pulse Rate 89 92 H 75 Respiratory Rate 18 18 Blood Pressure 159/117 H 131/97 H Pulse Oximetry 99 18 L 02/08/18 04:00 02/08/18 04:27 Temperature 98.2 F Pulse Rate 85 68 Respiratory Rate 18 Blood Pressure 145/106 H Pulse Oximetry 97 Intake & Output 02/07/18 02/08/18 02/08/18 18:59 06:59 18:59 Intake Total 520 / 520 480 / 480 Output Total 1400 / 1400 1000 / 1000 Balance -880 / -880 -520 / -520 Weight 89.1 kg Intake: Oral 520 / 520 480 / 480 Output: Urine 1400 / 1400 1000 / 1000 Other: # Bowel Movements 0 0 - Constitutional no acute distress - Routine HEENT Exam Head: Present: normocephalic Eye: Present: PERRL ENT: Present: mucous membranes moist - Routine Neck Exam Present: supple - Routine Respiratory Exam Present: CTA bilaterally Comments: diminished in the bases bilateral - Routine Cardiovascular Exam Present: S1, S2. Absent: murmur, gallop, rubs - Routine Abdominal Exam Present: soft - Routine Extremities Exam Present: edema, pulses intact, normal capillary refill Comments: !+ edema bilateral LE. Edema has decreased from 2+. - Routine Skin Exam Present: intact - Routine Neurological Exam Present: oriented X3 - Detailed Neurological Exam: Coma Scale Eye Opening: Spontaneous Verbal Response: Oriented Motor Response: Obey commands [place] Coma Scale Total: 15 - Routine Psychiatric Exam Present: normal affect Assessment and Plan - Assessment (1) Acute exacerbation of CHF (congestive heart failure) Code(s): I50.9 - Heart failure, unspecified Status: Acute (2) Fluid overload Code(s): E87.70 - Fluid overload, unspecified Status: Acute (3) CKD (chronic kidney disease) Code(s): N18.9 - Chronic kidney disease, unspecified Status: Acute (4) Hypertension Code(s): I10 - Essential (primary) hypertension Status: Acute - Plan Edema has decreased from 2+ to 1+ LE. Continue with current cardiac treatment plan including LifeVest. Cleared to discharge home from cardiac standpoint. Schedule follow up in office shortly after discharge. The patient was seen and evaluated by Dr. Mae who participated in care, management and decision making. <Kvng Mae - Last Filed: 02/08/18 20:09> Physical Exam Vital signs: Vital Signs 02/07/18 22:00 02/08/18 00:00 02/08/18 04:00 Temperature 97.6 F 98.2 F Pulse Rate 92 H 75 85 Respiratory Rate 18 18 Blood Pressure 131/97 H 145/106 H Pulse Oximetry 18 L 97 02/08/18 04:27 02/08/18 08:00 02/08/18 08:25 Temperature 98.4 F Pulse Rate 68 87 87 Respiratory Rate 16 18 Blood Pressure 138/108 H Pulse Oximetry 97 95 02/08/18 12:00 02/08/18 16:00 Temperature 97.8 F 97.8 F Pulse Rate 87 89 Respiratory Rate 16 16 Blood Pressure 134/108 H 147/105 H Pulse Oximetry 97 97 Intake & Output 02/08/18 02/08/18 02/09/18 06:59 18:59 06:59 Intake Total 480 / 480 540 / 540 Output Total 1000 / 1000 1100 / 1100 Balance -520 / -520 -560 / -560 Weight 196 lb 6.91 oz Intake: Oral 480 / 480 540 / 540 Output: Urine 1000 / 1000 1100 / 1100 Other: Date of Last Bowel Movement 02/05/18 # Bowel Movements 0 0 Assessment and Plan - Assessment (1) Acute exacerbation of CHF (congestive heart failure) Code(s): I50.9 - Heart failure, unspecified Status: Acute (2) Fluid overload Code(s): E87.70 - Fluid overload, unspecified Status: Acute (3) CKD (chronic kidney disease) Code(s): N18.9 - Chronic kidney disease, unspecified Status: Acute (4) Hypertension Code(s): I10 - Essential (primary) hypertension Status: Acute - Attending Attestation Patient seen and examined. I reviewed and agree with the evaluation and plan as presented. OK to DC home. Will schedule f/u in our office after discharge. F/u w nephrology as well. <Sarai Garza - Last Filed: 02/08/18 10:22> (1) Acute exacerbation of CHF (congestive heart failure) Qualifiers: Heart failure type: unspecified Qualified Code(s): I50.9 - Heart failure, unspecified (2) Fluid overload Qualifiers: Hypervolemia type: unspecified Qualified Code(s): E87.70 - Fluid overload, unspecified (3) CKD (chronic kidney disease) Qualifiers: Chronic kidney disease stage: unspecified stage Qualified Code(s): N18.9 - Chronic kidney disease, unspecified <Kvng Mae - Last Filed: 02/08/18 20:09> (1) Acute exacerbation of CHF (congestive heart failure) Qualifiers: Heart failure type: unspecified Qualified Code(s): I50.9 - Heart failure, unspecified (2) Fluid overload Qualifiers: Hypervolemia type: unspecified Qualified Code(s): E87.70 - Fluid overload, unspecified (3) CKD (chronic kidney disease) Qualifiers: Chronic kidney disease stage: unspecified stage Qualified Code(s): N18.9 - Chronic kidney disease, unspecified
--- NOTE | 2018-02-08 12:44 | P.PNNP ---
Subjective Interval history: Renal function improved. She is non oliguric. Edema improved. <Isela Shelley - Last Filed: 02/08/18 12:42> Physical Exam Vital signs: Vital Signs 02/07/18 16:00 02/07/18 20:00 02/07/18 22:00 Temperature 97.1 F L 97.3 F L Pulse Rate 85 89 92 H Respiratory Rate 18 18 Blood Pressure 136/105 H 159/117 H Pulse Oximetry 97 99 02/08/18 00:00 02/08/18 04:00 02/08/18 04:27 Temperature 97.6 F 98.2 F Pulse Rate 75 85 68 Respiratory Rate 18 18 Blood Pressure 131/97 H 145/106 H Pulse Oximetry 18 L 97 02/08/18 08:25 Temperature Pulse Rate 87 Respiratory Rate 18 Blood Pressure Pulse Oximetry 95 Intake & Output 02/07/18 02/08/18 02/08/18 18:59 06:59 18:59 Intake Total 520 / 520 480 / 480 Output Total 1400 / 1400 1000 / 1000 Balance -880 / -880 -520 / -520 Weight 89.1 kg Intake: Oral 520 / 520 480 / 480 Output: Urine 1400 / 1400 1000 / 1000 Other: # Bowel Movements 0 0 - Constitutional no acute distress, average body habitus - Routine HEENT Exam Head: Present: normocephalic Eye: Present: EOMI - Routine Neck Exam Present: supple, full ROM - Routine Respiratory Exam Present: CTA bilaterally - Routine Cardiovascular Exam Present: RRR, S1, S2 - Routine Abdominal Exam Present: soft, normoactive bowel sounds - Routine Extremities Exam Present: edema, full ROM - Routine Skin Exam Present: intact, warm - Routine Neurological Exam Present: alert, oriented X3 - Detailed Neurological Exam: Coma Scale Eye Opening: Spontaneous Verbal Response: Oriented Motor Response: Obey commands [place] Coma Scale Total: 15 - Routine Psychiatric Exam Present: normal affect, normal thought process <Isela Shelley - Last Filed: 02/08/18 12:42> Vital signs: Vital Signs 02/07/18 16:00 02/07/18 20:00 02/07/18 22:00 Temperature 97.1 F L 97.3 F L Pulse Rate 85 89 92 H Respiratory Rate 18 18 Blood Pressure 136/105 H 159/117 H Pulse Oximetry 97 99 02/08/18 00:00 02/08/18 04:00 02/08/18 04:27 Temperature 97.6 F 98.2 F Pulse Rate 75 85 68 Respiratory Rate 18 18 Blood Pressure 131/97 H 145/106 H Pulse Oximetry 18 L 97 02/08/18 08:00 02/08/18 08:25 02/08/18 12:00 Temperature 98.4 F 97.8 F Pulse Rate 89 87 87 Respiratory Rate 16 18 16 Blood Pressure 138/108 H 134/108 H Pulse Oximetry 97 95 97 Intake & Output 02/07/18 02/08/18 02/08/18 18:59 06:59 18:59 Intake Total 520 / 520 480 / 480 Output Total 1400 / 1400 1000 / 1000 Balance -880 / -880 -520 / -520 Weight 89.1 kg Intake: Oral 520 / 520 480 / 480 Output: Urine 1400 / 1400 1000 / 1000 Other: # Bowel Movements 0 0 <Pedro López - Last Filed: 02/08/18 14:51> Assessment and Plan - Assessment (1) Acute worsening of stage 3 chronic kidney disease Code(s): N18.3 - Chronic kidney disease, stage 3 (moderate) Status: Acute Plan: ARIANA due to decompensated CHF and increased renal vein pressure. Renal function is better. She needs diuresis. Continue Lasix 40 mg IV BID. Monitor urine output and renal function, currently non oliguric. Renal US negative for acute issues UA unremarkable Avoid nephrotoxic agents. Obtain daily labs. (2) Acute exacerbation of CHF (congestive heart failure) Code(s): I50.9 - Heart failure, unspecified Status: Acute Qualifiers: Heart failure type: unspecified Qualified Code(s): I50.9 - Heart failure, unspecified Plan: Acute exacerbation. Monitor fluid status with diuresis, goal to achieve negative balance. Cardiology following. EF thought to be 20-25%. Life vest is in place. Echo done, results pending (3) Hypertension Code(s): I10 - Essential (primary) hypertension Status: Acute Plan: Monitor BP. Low salt diet advised. <Isela Shelley - Last Filed: 02/08/18 12:42> - Assessment (1) Acute worsening of stage 3 chronic kidney disease Code(s): N18.3 - Chronic kidney disease, stage 3 (moderate) Status: Acute (2) Acute exacerbation of CHF (congestive heart failure) Code(s): I50.9 - Heart failure, unspecified Status: Acute Qualifiers: Heart failure type: unspecified Qualified Code(s): I50.9 - Heart failure, unspecified (3) Hypertension Code(s): I10 - Essential (primary) hypertension Status: Acute - Attending Attestation patient was seen and examined. Agree with above assessment and plan. Replace potassium. Continue diuresis. Renal function has improved. <Pedro López - Last Filed: 02/08/18 14:51>
[2018-02-08] MEDS: Carvedilol 12.5 MG Tablet PO SCH ×2 (16:18→21:01)
--- NOTE | 2018-02-08 17:40 | ECHRPT ---
Indication: heart failure CONCLUSIONS Severely dilated left ventricle. Wall thickness is measured at the upper limits of normal. The left ventricular systolic function is severely reduced with an estimated ejection fraction in th e range of 20-25%. The right ventricle is mildly dilated. The left atrial size is upper limits of normal. The right atrial size is hbyo-oa-hafnppaaof dilated. Mitral annular calcification is present. Moderate to severe mitral valve regurgitation. Aortic valve sclerosis is present. Trace aortic valve regurgitation. There is severe tricuspid valve regurgitation. There is estimated severe pulmonary hypertension present ( 77 mmHg). Mild pulmonary valve regurgitation. There is a trivial pericardial effusion present. BP: / HR: Rhythm: MEASUREMENTS (Male / Female) Normal Values Technical Quality: 2D ECHO LV Diastolic Diameter PLAX 6.3 cm 4.2 - 5.9 / 3.9 - 5.3 cm LV Systolic Diameter PLAX 5.9 cm IVS Diastolic Thickness 1.2 cm 0.6 - 1.0 / 0.6 - 0.9 cm LVPW Diastolic Thickness 0.7 cm 0.6 - 1.0 / 0.6 - 0.9 cm LV Relative Wall Thickness 0.3 LA Systolic Diameter LX 4.2 cm 3.0 - 4.0 / 2.7 - 3.8 cm LV Ejection Fraction MOD 4C 19.0 % LV Ejection Fraction 4C AL 17.9 % M-MODE Aortic Root Diameter MM 3.6 cm AV Cusp Separation MM 2.0 cm DOPPLER MR Peak Velocity 527.0 cm/s MR Peak Gradient 111.1 mmHg Mitral E Point Velocity 122.0 cm/s Mitral A Point Velocity 69.7 cm/s Mitral E to A Ratio 1.8 TR Peak Velocity 395.0 cm/s TR Peak Gradient 62.4 mmHg Right Atrial Pressure 15.0 mmHg Pulmonary Artery Systolic Pressu 77.4 mmHg Right Ventricular Systolic Press 77.4 mmHg FINDINGS LEFT VENTRICLE Severely dilated left ventricle. Wall thickness is measured at the upper limits of normal. The left ventricular systolic function is severely reduced with an estimated ejection fraction in th e range of 20-25%. RIGHT VENTRICLE The right ventricle is mildly dilated. LEFT ATRIUM The left atrial size is upper limits of normal. RIGHT ATRIUM The right atrial size is nuye-sc-slwxbkhhii dilated. ATRIAL SEPTUM Normal atrial septal thickness without atrial level shunting by limited color doppler interrogation. AORTA The aortic root and proximal ascending aorta are normal in size on limited imaging. MITRAL VALVE Mitral annular calcification is present. Moderate mitral valve regurgitation. AORTIC VALVE Aortic valve sclerosis is present. Trace aortic valve regurgitation. TRICUSPID VALVE There is mild to moderate to severe tricuspid valve regurgitation. There is estimated severe pulmonary hypertension present ( 77 mmHg). PULMONARY VALVE Mild pulmonary valve regurgitation. VESSELS The inferior vena cava is normal in size. PERICARDIUM There is a trivial pericardial effusion present. Salomón Dutton MD, FACC, [facility] [place] (Electronically Signed) Final Date:08 February 2018 17:38
[2018-02-09 08:08] LABS: Calcium 8.3 mg/dL (8.5-10.1); Carbon Dioxide 26.1 meq/L (21.0-32.0); Potassium 3.5 meq/L (3.5-5.1)
--- NOTE | 2018-02-09 09:28 | P.PNFP ---
Subjective Interval history: No acute events overnight. Afebrile, vitals stable. Patient seen and examined this morning. She denies dyspnea, CP, palpitations, abdominal pain. 1500 cc UOP past 24 hours. Weight has decreased. She states she believes as well her lower extremity edema to be improved. She reports concerns about medications specifically her carvedilol and this making her feel fatigued at times. She states she will adhere to taking her medications as an outpatient if this is recommended. <Remington Stone - 02/09/18 10:12> Results - Labs Result diagrams: 02/05/18 16:54 02/09/18 07:14 <Jesus Medrano - 02/09/18 15:45> Abnormal lab results 02/09/18 Range/Units 07:14 BUN 38 H (7-18) mg/dL Creatinine 1.38 H (0.50-1.00) mg/dL Estimated GFR 46 L (>89) mL/min Calcium 8.3 L (8.5-10.1) mg/dL [facility] 02/09/18 07:14 Sodium 143 Potassium 3.5 Chloride 106 Carbon Dioxide 26.1 BUN 38 H Creatinine 1.38 H Calcium 8.3 L <Jesus Medrano - 02/09/18 15:45> Abnormal lab results 02/08/18 02/09/18 Range/Units 08:46 07:14 Potassium 3.0 L (3.5-5.1) meq/L BUN 41 H 38 H (7-18) mg/dL Creatinine 1.53 H 1.38 H (0.50-1.00) mg/dL Estimated GFR 41 L 46 L (>89) mL/min Random Glucose 73 L (74-106) mg/dL Calcium 8.2 L 8.3 L (8.5-10.1) mg/dL [facility] 02/08/18 02/09/18 08:46 07:14 Sodium 143 143 Potassium 3.0 L 3.5 Chloride 106 106 Carbon Dioxide 26.2 26.1 BUN 41 H 38 H Creatinine 1.53 H 1.38 H Calcium 8.2 L 8.3 L <Remington Stone - 02/09/18 09:28> Physical Exam Vital signs: Vital Signs 02/08/18 16:00 02/08/18 19:20 02/08/18 20:00 Temperature 97.8 F 97.6 F Pulse Rate 89 76 74 Respiratory Rate 16 18 16 Blood Pressure 147/105 H 129/87 Pulse Oximetry 97 93 L 100 02/09/18 00:00 02/09/18 04:00 02/09/18 08:00 Temperature 97.5 F L 97.5 F L 97.9 F Pulse Rate 68 79 73 Respiratory Rate 16 17 18 Blood Pressure 127/85 127/97 H 131/101 H Pulse Oximetry 96 98 95 02/09/18 12:00 Temperature 97.3 F L Pulse Rate 76 Respiratory Rate 18 Blood Pressure 119/92 H Pulse Oximetry 95 Intake & Output 02/08/18 02/09/18 02/09/18 18:59 06:59 18:59 Intake Total 540 / 540 480 / 480 Output Total 1100 / 1100 400 / 400 Balance -560 / -560 80 / 80 Weight 84.9 kg Intake: Oral 540 / 540 480 / 480 Output: Urine 1100 / 1100 400 / 400 Other: Date of Last Bowel Movement 02/05/18 # Bowel Movements 0 <Jesus Medrano - 02/09/18 15:45> Vital Signs 02/08/18 12:00 02/08/18 16:00 02/08/18 19:20 Temperature 97.8 F 97.8 F Pulse Rate 87 89 76 Respiratory Rate 16 16 18 Blood Pressure 134/108 H 147/105 H Pulse Oximetry 97 97 93 L 02/08/18 20:00 02/09/18 00:00 02/09/18 04:00 Temperature 97.6 F 97.5 F L 97.5 F L Pulse Rate 74 68 79 Respiratory Rate 16 16 17 Blood Pressure 129/87 127/85 127/97 H Pulse Oximetry 100 96 98 Intake & Output 02/08/18 02/09/18 02/09/18 18:59 06:59 18:59 Intake Total 540 / 540 480 / 480 Output Total 1100 / 1100 400 / 400 Balance -560 / -560 80 / 80 Weight 84.9 kg Intake: Oral 540 / 540 480 / 480 Output: Urine 1100 / 1100 400 / 400 Other: Date of Last Bowel Movement 02/05/18 # Bowel Movements 0 <Remington Stone - 02/09/18 10:12> Narrative: GENERAL: NAD, sitting in bed, very pleasant NEURO: Alert. Normal speech. Very mild left sided facial droop. Left sided strength 4/5. Sensation intact to light touch. SKIN: Warm and dry. HEAD: Normocephalic. Atraumatic. EYES: EOMI. No injection or drainage. ENT: No nasal drainage. Moist mucous membranes. NECK: Supple, trachea midline. JVD present bilaterally. CARDIOVASCULAR: Regular rate and rhythm, holosystolic murmur best auscultated left upper sternal border. Peripheral pulses 2+. RESPIRATORY: Breath sounds equal, faint bibasilar rales. No rhonchi or wheezing. No accessory muscle use. GASTROINTESTINAL: Abdomen soft, nontender, protuberant. No rebound tenderness. No guarding. MUSCULOSKELETAL: 2+ lower extremity pre-tibial edema proximally, just distal to patella. Improved from prior examination of 02/08. Normal range of motion. BACK: Nontender without obvious deformity. <Remington Stone - 02/09/18 10:12> Assessment and Plan - Assessment (1) Acute exacerbation of CHF (congestive heart failure) Code(s): I50.9 - Heart failure, unspecified Status: Acute Plan: Patient with a 2 week history of worsening shortness of breath and lower extremity edema associated with increased weight gain. received Lasix 40 IV 1 in the ED BNP found to be greater than 5000 Chest x-ray showed stable cardiomegaly and atelectasis within the mid lung lai bilaterally EKG: Sinus rhythm vital signs stable, in no acute distress Patient had echo done on 11/16/17 which showed EF of 25-30% and moderate tricuspid regurgitation. Repeat echo done on 01/18/18 showed EF of 20%, moderate to severe mitral and tricuspid regurgitation, and left atrial enlargement. Echo from 02/08 showing EF in the range of 20-25%, pulmonary arterial pressure of 77, mod to severe MVR, severe TVR, av sclerosis, severely dilated LV. Results of echo reviewed with the patient this AM Monitor vital signs and daily weights Strict I/Os Titrate oxygen as needed to maintain oxygen saturation greater than 92% Continue diuresis with Lasix 40 mg IV BID per nephrology, transition to PO prior to discharge Nephrology consulted given the patients acute on chronic kidney injury and requirement for diuresis Continue KCl 30 mEq daily, additional if needed if hypokalemia given ongoing diuresis Cardiology consulted (Dr. Mae), appreciate recommendations (2) CKD (chronic kidney disease) Code(s): N18.9 - Chronic kidney disease, unspecified Status: Acute Plan: Patient with increased creatinine of 2.01 on admission, improving Per chart review patient with fluctuating creatinine levels since 06/2017 ranging from 0.70-1.91. Most recent CR of 1.91 in 12/09/17. Patient reports decrease in Lasix and discontinuation of enalapril by health and safety tech Dr. Mae due to her worsening kidney function. Patient also reports that she is scheduled to see a food and beverage manager on 02/22/18 for this issue. Continue to monitor Cr and I/Os Nephrology consulted, appreciate recommendations (3) Hypertension Code(s): I10 - Essential (primary) hypertension Status: Acute Plan: Continue home carvedilol 25 mg po bid Continue to monitor vitals Continue diuresis as above (4) Nutrition, metabolism, and development symptoms Code(s): R63.8 - Other symptoms and signs concerning food and fluid intake Status: Acute Plan: Fluids: Not indicated Electrolytes: Replete as needed, continue to monitor K+ Diet: Cardiac diet with sodium restriction of less than 2 g per day and fluid restriction of less than 1.5 L per day DVT prophylaxis: Heparin SQ Q12 <Remington Stone - 02/09/18 10:02> - Attending Attestation See the residents documentation for details. I saw and evaluated the patient regarding the perez portions of this evaluation and agree with the residents findings and plans as written. Parts of this note were created using [employer] voice recognition software program. While efforts were made to correct any mistakes made by this software, some mistakes, errors, and omissions may remain in the final note that were not caught when the note was originally created. Plan of care was discussed and agreed upon with the patient as specifically documented in the above note. An opportunity to ask questions with explanation was provided. Patient voiced understanding on all information reviewed and discussed. <Jesus Medrano - 02/09/18 15:45> <Gavin Stonesh - Last Filed: 02/09/18 10:02> (1) Acute exacerbation of CHF (congestive heart failure) Qualifiers: Heart failure type: unspecified Qualified Code(s): I50.9 - Heart failure, unspecified (2) CKD (chronic kidney disease) Qualifiers: Chronic kidney disease stage: unspecified stage Qualified Code(s): N18.9 - Chronic kidney disease, unspecified <Remington Stone - Last Filed: 02/09/18 10:02> (1) Acute exacerbation of CHF (congestive heart failure) Qualifiers: Heart failure type: unspecified Qualified Code(s): I50.9 - Heart failure, unspecified (2) CKD (chronic kidney disease) Qualifiers: Chronic kidney disease stage: unspecified stage Qualified Code(s): N18.9 - Chronic kidney disease, unspecified
[2018-02-09] MEDS: Heparin - SQ 10,000 UNITS/ML Vial SQ SCH (09:44)
[2018-02-09] MEDS: Carvedilol 12.5 MG Tablet PO SCH (09:45)
--- NOTE | 2018-02-09 10:43 | P.PNCA ---
<Sarai Garza N - Last Filed: 02/09/18 10:34> Subjective Interval history: Pt denies any CP, pressure, palpitations, dizziness or SOB. Pt is concerned about her carvedilol and Lasix and there interactions. Physical Exam Vital signs: Vital Signs 02/08/18 12:00 02/08/18 16:00 02/08/18 19:20 Temperature 97.8 F 97.8 F Pulse Rate 87 89 76 Respiratory Rate 16 16 18 Blood Pressure 134/108 H 147/105 H Pulse Oximetry 97 97 93 L 02/08/18 20:00 02/09/18 00:00 02/09/18 04:00 Temperature 97.6 F 97.5 F L 97.5 F L Pulse Rate 74 68 79 Respiratory Rate 16 16 17 Blood Pressure 129/87 127/85 127/97 H Pulse Oximetry 100 96 98 02/09/18 08:00 Temperature 97.9 F Pulse Rate 73 Respiratory Rate 18 Blood Pressure 131/101 H Pulse Oximetry 95 Intake & Output 02/08/18 02/09/18 02/09/18 18:59 06:59 18:59 Intake Total 540 / 540 480 / 480 Output Total 1100 / 1100 400 / 400 Balance -560 / -560 80 / 80 Weight 84.9 kg Intake: Oral 540 / 540 480 / 480 Output: Urine 1100 / 1100 400 / 400 Other: Date of Last Bowel Movement 02/05/18 # Bowel Movements 0 - Constitutional no acute distress - Routine HEENT Exam Head: Present: normocephalic Eye: Present: PERRL ENT: Present: mucous membranes moist - Routine Neck Exam Present: supple - Routine Respiratory Exam Present: CTA bilaterally - Routine Cardiovascular Exam Present: S1, S2. Absent: murmur, gallop, rubs - Routine Abdominal Exam Present: soft - Routine Extremities Exam Present: edema, full ROM, pulses intact, normal capillary refill Comments: 1+ edema noted in LE. - Routine Skin Exam Present: intact - Routine Neurological Exam Present: oriented X3 - Detailed Neurological Exam: Coma Scale Eye Opening: Spontaneous Verbal Response: Oriented Motor Response: Obey commands [place] Coma Scale Total: 15 - Routine Psychiatric Exam Present: normal affect Assessment and Plan - Assessment (1) Acute exacerbation of CHF (congestive heart failure) Code(s): I50.9 - Heart failure, unspecified Status: Acute (2) Fluid overload Code(s): E87.70 - Fluid overload, unspecified Status: Acute (3) CKD (chronic kidney disease) Code(s): N18.9 - Chronic kidney disease, unspecified Status: Acute (4) Hypertension Code(s): I10 - Essential (primary) hypertension Status: Acute - Plan Edema 1+ LE. Instructed patient on the importance of the medication (carvedilol and lasix). Continue with current cardiac treatment plan including LifeVest. Cleared to discharge home from cardiac standpoint. Schedule follow up in office shortly after discharge. The patient was seen and evaluated by Dr. Mae who participated in care, management and decision making. <Kvng Mae - Last Filed: 02/09/18 14:06> Physical Exam Vital signs: Vital Signs 02/08/18 16:00 02/08/18 19:20 02/08/18 20:00 Temperature 97.8 F 97.6 F Pulse Rate 89 76 74 Respiratory Rate 16 18 16 Blood Pressure 147/105 H 129/87 Pulse Oximetry 97 93 L 100 02/09/18 00:00 02/09/18 04:00 02/09/18 08:00 Temperature 97.5 F L 97.5 F L 97.9 F Pulse Rate 68 79 73 Respiratory Rate 16 17 18 Blood Pressure 127/85 127/97 H 131/101 H Pulse Oximetry 96 98 95 Intake & Output 02/08/18 02/09/18 02/09/18 18:59 06:59 18:59 Intake Total 540 / 540 480 / 480 Output Total 1100 / 1100 400 / 400 Balance -560 / -560 80 / 80 Weight 187 lb 2.759 oz Intake: Oral 540 / 540 480 / 480 Output: Urine 1100 / 1100 400 / 400 Other: Date of Last Bowel Movement 02/05/18 # Bowel Movements 0 Assessment and Plan - Assessment (1) Acute exacerbation of CHF (congestive heart failure) Code(s): I50.9 - Heart failure, unspecified Status: Acute (2) Fluid overload Code(s): E87.70 - Fluid overload, unspecified Status: Acute (3) CKD (chronic kidney disease) Code(s): N18.9 - Chronic kidney disease, unspecified Status: Acute (4) Hypertension Code(s): I10 - Essential (primary) hypertension Status: Acute - Attending Attestation Patient seen and examined. I reviewed and agree with the evaluation and plan as presented. Continue current program. Nephrology evaluation in progress. Anticipate discharge soon. Will schedule outpt f/u in our office after discharge. <Sarai Garza - Last Filed: 02/09/18 10:34> (1) Acute exacerbation of CHF (congestive heart failure) Qualifiers: Heart failure type: unspecified Qualified Code(s): I50.9 - Heart failure, unspecified (2) Fluid overload Qualifiers: Hypervolemia type: unspecified Qualified Code(s): E87.70 - Fluid overload, unspecified (3) CKD (chronic kidney disease) Qualifiers: Chronic kidney disease stage: unspecified stage Qualified Code(s): N18.9 - Chronic kidney disease, unspecified <Kvng Mae - Last Filed: 02/09/18 14:06> (1) Acute exacerbation of CHF (congestive heart failure) Qualifiers: Heart failure type: unspecified Qualified Code(s): I50.9 - Heart failure, unspecified (2) Fluid overload Qualifiers: Hypervolemia type: unspecified Qualified Code(s): E87.70 - Fluid overload, unspecified (3) CKD (chronic kidney disease) Qualifiers: Chronic kidney disease stage: unspecified stage Qualified Code(s): N18.9 - Chronic kidney disease, unspecified
--- NOTE | 2018-02-09 11:43 | P.PNNP ---
Subjective Interval history: Ambulatory, not short of breath. Renal function is better. <Isela Shelley - Last Filed: 02/09/18 11:39> Physical Exam Vital signs: Vital Signs 02/08/18 12:00 02/08/18 16:00 02/08/18 19:20 Temperature 97.8 F 97.8 F Pulse Rate 87 89 76 Respiratory Rate 16 16 18 Blood Pressure 134/108 H 147/105 H Pulse Oximetry 97 97 93 L 02/08/18 20:00 02/09/18 00:00 02/09/18 04:00 Temperature 97.6 F 97.5 F L 97.5 F L Pulse Rate 74 68 79 Respiratory Rate 16 16 17 Blood Pressure 129/87 127/85 127/97 H Pulse Oximetry 100 96 98 02/09/18 08:00 Temperature 97.9 F Pulse Rate 73 Respiratory Rate 18 Blood Pressure 131/101 H Pulse Oximetry 95 Intake & Output 02/08/18 02/09/18 02/09/18 18:59 06:59 18:59 Intake Total 540 / 540 480 / 480 Output Total 1100 / 1100 400 / 400 Balance -560 / -560 80 / 80 Weight 84.9 kg Intake: Oral 540 / 540 480 / 480 Output: Urine 1100 / 1100 400 / 400 Other: Date of Last Bowel Movement 02/05/18 # Bowel Movements 0 - Constitutional no acute distress, average body habitus, cooperative - Routine HEENT Exam Head: Present: normocephalic - Routine Neck Exam Present: supple, full ROM. Absent: JVD - Routine Respiratory Exam Present: CTA bilaterally. Absent: accessory muscle use - Routine Cardiovascular Exam Present: RRR, S1, S2 - Routine Abdominal Exam Present: soft, normoactive bowel sounds - Routine Extremities Exam Present: edema, normal capillary refill. Absent: tenderness - Routine Skin Exam Present: intact, warm - Routine Neurological Exam Present: alert, oriented X3, CN II-XII intact, moving all extremities - Detailed Neurological Exam: Coma Scale Eye Opening: Spontaneous Verbal Response: Oriented Motor Response: Obey commands [place] Coma Scale Total: 15 - Routine Psychiatric Exam Present: normal affect, normal thought process <Isela Shelley - Last Filed: 02/09/18 11:39> Vital signs: Vital Signs 02/08/18 16:00 02/08/18 19:20 02/08/18 20:00 Temperature 97.8 F 97.6 F Pulse Rate 89 76 74 Respiratory Rate 16 18 16 Blood Pressure 147/105 H 129/87 Pulse Oximetry 97 93 L 100 02/09/18 00:00 02/09/18 04:00 02/09/18 08:00 Temperature 97.5 F L 97.5 F L 97.9 F Pulse Rate 68 79 73 Respiratory Rate 16 17 18 Blood Pressure 127/85 127/97 H 131/101 H Pulse Oximetry 96 98 95 02/09/18 12:00 Temperature 97.3 F L Pulse Rate 76 Respiratory Rate 18 Blood Pressure 119/92 H Pulse Oximetry 95 Intake & Output 02/08/18 02/09/18 02/09/18 18:59 06:59 18:59 Intake Total 540 / 540 480 / 480 Output Total 1100 / 1100 400 / 400 Balance -560 / -560 80 / 80 Weight 84.9 kg Intake: Oral 540 / 540 480 / 480 Output: Urine 1100 / 1100 400 / 400 Other: Date of Last Bowel Movement 02/05/18 # Bowel Movements 0 <Pedro López - Last Filed: 02/09/18 15:43> Assessment and Plan - Assessment (1) Acute worsening of stage 3 chronic kidney disease Code(s): N18.3 - Chronic kidney disease, stage 3 (moderate) Status: Acute Plan: ARIANA due to decompensated CHF and increased renal vein pressure. Renal function improved. She needs continued diuresis. Continue Lasix 40 mg IV BID. At discharge change to PO. May need to add metolazone three times weekly or as neede.d Currently non oliguric. UA was unremarkable Avoid nephrotoxic agents. Obtain daily labs. (2) Acute exacerbation of CHF (congestive heart failure) Code(s): I50.9 - Heart failure, unspecified Status: Acute Qualifiers: Heart failure type: unspecified Qualified Code(s): I50.9 - Heart failure, unspecified Plan: Acute exacerbation. Monitor fluid status with diuresis. Cardiology following. EF is 20-25%. Life vest is in place. Echo reviewed. (3) Hypertension Code(s): I10 - Essential (primary) hypertension Status: Acute Plan: Monitor BP. Low salt diet advised. - Plan Cleared for discharge from renal perspective. <Isela Shelley - Last Filed: 02/09/18 11:39> - Assessment (1) Acute worsening of stage 3 chronic kidney disease Code(s): N18.3 - Chronic kidney disease, stage 3 (moderate) Status: Acute (2) Acute exacerbation of CHF (congestive heart failure) Code(s): I50.9 - Heart failure, unspecified Status: Acute Qualifiers: Heart failure type: unspecified Qualified Code(s): I50.9 - Heart failure, unspecified (3) Hypertension Code(s): I10 - Essential (primary) hypertension Status: Acute - Attending Attestation patient was seen and examined. Agree with above assessment and plan. To be discharged today. <Pedro López - Last Filed: 02/09/18 15:43>
--- NOTE | 2018-02-09 13:11 | P.DCO ---
- Physical Therapy Order: Evaluate and treat, Improve ambulation, Strength and gait training - Certification I have seen patient Carla Funes on 02/09/18. My clinical findings support the need for the requested home health care services because: Limited mobility due to disease progression, Deconditioned with increased weakness I certify that my clinical findings support that this patient is homebound because: Unsteady gait/balance
--- NOTE | 2018-02-09 14:16 | P.DS ---
Date of admission: 02/05/18 18:54 Primary care physician: Melissa Monreal MD, R3 Attending physician on discharge: Jesus Medrano Anticipated date of discharge: 02/09/18 Brief History from admission: Per initial H&P documentation: Patient is a 67-year-old female with past medical history of CHF, hypertension, and CVA with residual left-sided weakness who presented to the ED from PCPs office (Dr. Monreal) due to complaints of worsening shortness of breath and lower extremity swelling. Patient reports that 2 weeks ago she saw her posting specialist (Dr. Chávez) and was advised to resumed carvedilol medication, and due to worsening kidney function enalapril was discontinued and Lasix dose was decreased from 40 mg daily to 20 mg daily. She reports that since these changes in medication she has noted that her shortness of breath worsen even at rest and she began having increased lower extremity swelling extending to her lower abdomen. She also reports weight gain during the past 2 weeks. Patient normally sleeps with the back of the bed elevated. She denies fever, chest pain, chills, diarrhea, cough or dysuria. Endorses decreased urine output. Patient reports her shortness of breath has improved since receiving diuretics in the ED. Of note patient reports that a month ago she began having nausea and intermittent vomiting. This was the reason she had stopped taking her carvedilol medication for 2 weeks prior to seeing Dr. wayne in his office. Patient stated she was seen by GI and was supposed to have a HIDA study to further evaluate her gallbladder however she was not able to pay for this procedure. Currently denies any nausea or vomiting. She vomited once yesterday. Today she has been able to tolerate p.o. intake. In the ED patient received 40 mg of Lasix IV 1. DS: Diagnosis - Discharge Diagnosis (1) Acute exacerbation of CHF (congestive heart failure) Status: Acute (2) CKD (chronic kidney disease) Status: Acute (3) Hypertension Status: Chronic (4) Nutrition, metabolism, and development symptoms Status: Acute DS: Medications - Discharge Medications Prescriptions: carvedilol 25 mg PO BID #60 tab furosemide 20 mg PO BID #60 tab potassium chloride [K-Tab] 40 mg PO DAILY #60 tab DS: Summary Hospital Course: Patient was admitted for IV diuresis. Cardiology and nephrology were consulted given her acute on chronic CHF exacerbation as well as acute on chronic kidney disease. Nephrology increased Lasix to 40 mg IV q12h and determined the patient to have no immediate need for dialysis. UA and renal ultrasound were ordered, UA unremarkable, renal ultrasound showing increased echogenicity of bilateral kidneys consistent with medical renal disease, small 0.5 cm echogenic focus of the lower pole of the right kidney nonspecific. The patient's renal function continued to improve throughout her admission, admission creatinine was 2.01 which trended down to 1.38 prior to discharge after patient was deemed stable for discharge by cardiology and nephrology. Urine output was noted to be adequate. The patient was counseled multiple times on medication adherence to her carvedilol twice daily as well as her p.o. furosemide for diuresis at home and to keep her life vest in place. Her repeat echocardiogram during this hospitalization showed a stable EF in the range of 2025%, however with increased pulmonary arterial pressure to 77 mmHg. She was recommended to follow -up closely with her posting specialist as well as primary care physician after hospital discharge. - Time Spent with Patient Total time spent providing and/or coordinating discharge services: - Quality: VTE Deep Vein Thrombosis/Pulmonary Embolism Present on Admission: No Exam Vital signs: Vital Signs 02/08/18 16:00 02/08/18 19:20 02/08/18 20:00 Temperature 97.8 F 97.6 F Pulse Rate 89 76 74 Respiratory Rate 16 18 16 Blood Pressure 147/105 H 129/87 Pulse Oximetry 97 93 L 100 02/09/18 00:00 02/09/18 04:00 02/09/18 08:00 Temperature 97.5 F L 97.5 F L 97.9 F Pulse Rate 68 79 73 Respiratory Rate 16 17 18 Blood Pressure 127/85 127/97 H 131/101 H Pulse Oximetry 96 98 95 Intake & Output 02/08/18 02/09/18 02/09/18 18:59 06:59 18:59 Intake Total 540 / 540 480 / 480 Output Total 1100 / 1100 400 / 400 Balance -560 / -560 80 / 80 Weight 84.9 kg Intake: Oral 540 / 540 480 / 480 Output: Urine 1100 / 1100 400 / 400 Other: Date of Last Bowel Movement 02/05/18 # Bowel Movements 0 Narrative: GENERAL: NAD, sitting in bed, very pleasant NEURO: Alert. Normal speech. Very mild left sided facial droop. Left sided strength 4/5. Sensation intact to light touch. SKIN: Warm and dry. HEAD: Normocephalic. Atraumatic. EYES: EOMI. No injection or drainage. ENT: No nasal drainage. Moist mucous membranes. NECK: Supple, trachea midline. JVD present bilaterally. CARDIOVASCULAR: Regular rate and rhythm, holosystolic murmur best auscultated left upper sternal border. Peripheral pulses 2+. RESPIRATORY: Breath sounds equal, faint bibasilar rales. No rhonchi or wheezing. No accessory muscle use. GASTROINTESTINAL: Abdomen soft, nontender, protuberant. No rebound tenderness. No guarding. MUSCULOSKELETAL: 2+ lower extremity pre-tibial edema proximally, just distal to patella. Improved from prior examination of 02/08. Normal range of motion. BACK: Nontender without obvious deformity. Results Procedures completed during hospitalization: 2D echocardiogram Renal ultrasound Labs on day of discharge: Labs from last 24 hours 02/09/18 07:14 Sodium 143 Potassium 3.5 Chloride 106 Carbon Dioxide 26.1 Anion Gap 11 BUN 38 H Creatinine 1.38 H Estimated GFR 46 L Random Glucose 94 Calcium 8.3 L - Impressions ITS Impressions Chest X-Ray 02/05/18 15:40 CONCLUSION: 1. Stable cardiomegaly. 2. Atelectasis within the mid lung lai bilaterally. Abdomen/Bladder Ultrasound 02/06/18 17:26 CONCLUSION: 1. Increased echogenicity of the kidneys bilaterally consistent with medical renal disease. 2. Small 0.5 cm echogenic focus without shadowing the lower pole the right kidney. This is nonspecific. Renal stone could have this appearance however no renal stone seen on the prior CTA. CTA is more specific in evaluating calcifications. Discharge Plan - Discharge Disposition Patient Disposition: /Home Health Service - Discharge Condition Condition: Stable - Discharge Order Discharge Orders: Discharge Order (Routine); Ordered 02/09/18 Ordered By: Remington Stone - Discharge Details Anticipated Discharge Date: 02/09/18 - Physicians Team Primary Care Provider: Melissa Monreal Attending Provider: Jesus Medrano Other Providers: Kvng Mae MD ; [employer]urance ; Pedro López MD
== END 2018-02-09 16:33 | disposition home health service (06) ==
LOC: NEPC 15:14 → NEDA 18:54 → N04 20:28
PROVIDERS: ADMIT Family Medicine; ATTEND Family Medicine

== ENCOUNTER 2018-03-05 15:24 | Inpatient (IN) ==
--- NOTE | 2018-03-05 18:38 | ED ---
HPI General Chief complaint: Extremity Injury, Lower Stated complaint: edema Time Seen by Provider: 03/05/18 18:19 Source: patient Mode of arrival: ambulatory Limitations: no limitations History of Present Illness HPI narrative: 67-year-old female with PMH of CKD stage III, CAD s/p AL, CHF, EF of 20%, CVA, currently wearing a LifeVest, on warfarin presents to the ED for evaluation of 1 month history of increased edema of the bilateral lower extremities. She endorses 8/10 aching pain in bilateral lower extremities, worsened by lowering the legs and marginally improved by elevating the legs. Patient also endorses estimated 30 pound weight gain in the same amount of time. She denies chest pain, palpitations, shortness of breath, abdominal pain , nausea, vomiting, limitations to range of motion of the extremities. She endorses compliance with daily warfarin and Lasix. She is followed by Dr. Mae, cardiology. Primary care is Dr. Wisdom through the resident clinic and Dr. López, nephrology. Related Data Home Medications Medication Instructions Recorded Confirmed esomeprazole magnesium 40 mg PO DAILY 02/05/18 03/05/18 ondansetron 4 mg PO BID PRN 02/05/18 03/05/18 warfarin 1 mg PO Q OTHER DAY 03/05/18 03/05/18 warfarin 2 mg PO Q OTHER DAY 03/05/18 03/05/18 Previous Rx's Medication Instructions Recorded carvedilol 25 mg PO BID #60 tab 02/09/18 furosemide 20 mg PO BID #60 tab 02/09/18 potassium chloride [K-Tab] 40 mg PO DAILY #60 tab 02/09/18 Allergies Allergy/AdvReac Type Severity Reaction Status Date / Time iodine Allergy Severe sneezing, Unverified 12/09/17 03:24 chest tightness potassium iodide Allergy Severe sneezing, Unverified 12/09/17 03:24 chest tightness povidone-iodine Allergy Severe sneezing, Unverified 12/09/17 03:24 chest tightness sodium iodide Allergy Severe sneezing, Unverified 12/09/17 03:24 chest tightness sodium iodide Allergy Severe sneezing, Unverified 12/09/17 03:24 chest tightness sulfamethoxazole Allergy Intermediate abdominal Unverified 12/09/17 03:24 pain trimethoprim Allergy Intermediate abdominal Unverified 12/09/17 03:24 pain hydralazine Allergy Unknown Edema Verified 12/09/17 03:24 Statins Allergy Unknown Hives Uncoded 03/05/18 18:25 Review of Systems ROS: all other systems reviewed are negative PMFSH Social History Social History Substance History: No History of Abuse Second Hand Smoke Exposure: No Smoking Status: Never smoker How Often Do You Have a Drink Containing Alcohol: Never Recent Travel in [facility] within the Last 8 Weeks: No Recent Out of Country Travel within the Last 8 Weeks: No Immunization History Tetanus Immunization: Unsure Hx Influenza Vaccine This Season: No Exam Narrative Exam Narrative: GENERAL: Well-nourished, well-developed -[place] female in no acute distress. SKIN: Focused skin assessment warm/dry. HEAD: Atraumatic. Normocephalic. EYES: Pupils equal and round. No scleral icterus. No injection or drainage. ENT: No nasal bleeding or discharge. Mucous membranes pink and moist. NECK: Trachea midline. No JVD. CARDIOVASCULAR: Regular rate and rhythm. No murmur appreciated. RESPIRATORY: No accessory muscle use. Rare end expiratory wheezing in the bilateral upper lung lai. Breath sounds equal bilaterally. GASTROINTESTINAL: Abdomen soft, non-tender, nondistended. Hepatic and splenic margins not palpable. MUSCULOSKELETAL: No obvious deformities. No clubbing. No cyanosis. 2+ tense edema to the mid thigh bilaterally. NEUROLOGICAL: Awake and alert. No obvious cranial nerve deficits. Motor grossly within normal limits. Normal speech. PSYCHIATRIC: Appropriate mood and affect; insight and judgment normal. Course Initial Documented Vital Signs Temperature 98.4 F 03/05/18 15:35 Pulse Rate 91 H 03/05/18 15:35 Respiratory Rate 16 03/05/18 15:35 Blood Pressure 136/102 H 03/05/18 15:35 Pulse Oximetry 95 03/05/18 15:35 Last Documented Vital Signs Temperature 98.4 F 03/05/18 15:35 Pulse Rate 91 H 03/05/18 15:35 Respiratory Rate 19 03/05/18 15:42 Blood Pressure 136/102 H 03/05/18 15:35 Pulse Oximetry 95 03/05/18 18:44 Medical Decision Making MDM Narrative Medical decision making narrative: 67-year-old female with PMH of CKD stage III , CAD s/p AL, CHF, EF of 20%, CVA, currently wearing a LifeVest, on warfarin presents to the ED for evaluation of 1 month history of increased edema of the bilateral lower extremities. Patient is afebrile, heart rate 91, pulse ox 96% on room air respiratory rate of 16 on presentation. Physical exam reveals -[place] female no acute distress. She does have significant lower extremity edema with positive Homans sign bilaterally. Lung sounds with rare expiratory wheezing. EKG rate 93, sinus rhythm with PVCs. IA interval 145, QRS 98, QTc 435 ms. Normal axis. No acute ST changes. Reviewed by Dr. Lion. Troponin negative 1. BNP over 5000. Chest x-ray with possible small bilateral pleural effusions. CBC: No leukocytosis or anemia. CMP: BUN 34, creatinine 1.87. GFR 32 troponin INR: 3.6 ,supratheraputic The patient was administered 80 mg Lasix. I discussed the results with the patient. She is agreeable to admission. I spoke with Dr. Stone, 3rd year resident. He agrees to accept the patient to the medicine service. Please see medicine notes for disposition. Medical Screen Exam Complete: Yes Emergency Medical Condition: Yes Differential Diagnosis Differential Diagnosis: CHF exacerbation versus DVT versus metabolic derangement versus acute on chronic kidney failure versus other Lab Data Result diagrams: 03/05/18 18:45 03/05/18 18:45 Lab Results 03/05/18 03/05/18 03/05/18 Range/Units 18:45 18:45 18:45 WBC 5.4 (4.0-11.0) th/mm3 RBC 4.77 (4.00-5.30) mil/mm3 Hgb 11.6 (11.6-15.3) gm/dL Hct 36.3 (35.0-46.0) % MCV 76.1 L (80.0-100.0) fL MCH 24.3 L (27.0-34.0) pg MCHC 32.0 (32.0-36.0) % RDW 19.1 H (11.6-17.2) % Plt Count 280 (150-450) th/mm3 MPV 9.7 (7.0-11.0) fL Neut % (Auto) 59.3 (16.0-70.0) % Lymph % (Auto) 24.5 (9.0-44.0) % [place] % (Auto) 13.7 H (0.0-8.0) % Eos % (Auto) 1.7 (0.0-4.0) % Baso % (Auto) 0.8 (0.0-2.0) % Neut # (Auto) 3.2 (1.8-7.7) th/mm3 Lymph # (Auto) 1.3 (1.0-4.8) th/mm3 [place] # (Auto) 0.7 (0.0-0.9) th/mm3 Eos # (Auto) 0.1 (0.0-0.4) th/mm3 Baso # (Auto) 0.0 (0.0-0.2) th/mm3 WBC Differential . Differential Comment Auto diff final PT (9.8-11.6) sec INR Ratio APTT (24.3-30.1) sec Sodium 139 (136-145) meq/L Potassium 3.6 (3.5-5.1) meq/L Chloride 102 (98-107) meq/L Carbon Dioxide 24.1 (21.0-32.0) meq/L Anion Gap 13 (5-15) meq/L BUN 34 H (7-18) mg/dL Creatinine 1.87 H (0.50-1.00) mg/dL Estimated GFR 32 L (>89) mL/min Random Glucose 92 (74-106) mg/dL Calcium 8.4 L (8.5-10.1) mg/dL Total Bilirubin 2.2 H (0.2-1.0) mg/dL AST 18 (15-37) U/L ALT 17 (10-53) U/L Alkaline Phosphatase 55 (45-117) U/L Troponin I 0.04 (0.02-0.05) ng/mL B-Natriuretic Peptide Greater than 5000 H (0-100) pg/mL Total Protein 6.0 L (6.4-8.2) g/dL Albumin 2.8 L (3.4-5.0) g/dL 03/05/18 Range/Units 19:30 WBC (4.0-11.0) th/mm3 RBC (4.00-5.30) mil/mm3 Hgb (11.6-15.3) gm/dL Hct (35.0-46.0) % MCV (80.0-100.0) fL MCH (27.0-34.0) pg MCHC (32.0-36.0) % RDW (11.6-17.2) % Plt Count (150-450) th/mm3 MPV (7.0-11.0) fL Neut % (Auto) (16.0-70.0) % Lymph % (Auto) (9.0-44.0) % [place] % (Auto) (0.0-8.0) % Eos % (Auto) (0.0-4.0) % Baso % (Auto) (0.0-2.0) % Neut # (Auto) (1.8-7.7) th/mm3 Lymph # (Auto) (1.0-4.8) th/mm3 [place] # (Auto) (0.0-0.9) th/mm3 Eos # (Auto) (0.0-0.4) th/mm3 Baso # (Auto) (0.0-0.2) th/mm3 WBC Differential Differential Comment PT 36.1 H (9.8-11.6) sec INR 3.6 Ratio APTT 32.7 H (24.3-30.1) sec Sodium (136-145) meq/L Potassium (3.5-5.1) meq/L Chloride (98-107) meq/L Carbon Dioxide (21.0-32.0) meq/L Anion Gap (5-15) meq/L BUN (7-18) mg/dL Creatinine (0.50-1.00) mg/dL Estimated GFR (>89) mL/min Random Glucose (74-106) mg/dL Calcium (8.5-10.1) mg/dL Total Bilirubin (0.2-1.0) mg/dL AST (15-37) U/L ALT (10-53) U/L Alkaline Phosphatase (45-117) U/L Troponin I (0.02-0.05) ng/mL B-Natriuretic Peptide (0-100) pg/mL Total Protein (6.4-8.2) g/dL Albumin (3.4-5.0) g/dL Imaging Data Radiologist's impression: Chest X-Ray 03/05/18 18:31 CONCLUSION: The only new finding is questionable bilateral cardiophrenic angle blunting suggesting possible pleural effusions. May consider performing a good quality PA and lateral view of the chest in erect position for further characterization. The lungs are clear. Discharge Plan Discharge Disposition Patient Disposition: 30 Still Patient Discharge Details Diagnosis: Acute exacerbation of congestive heart failure, Supratherapeutic INR Physicians Team ED Provider: Lia Zambrano ED Midlevel Provider: Lana Pimentel Primary Care Provider: Melissa Monreal Attending Provider: Brannon Willard Other Providers: [facility],Insurance Status ED Status: Admitted Observation Patient
[2018-03-05 19:05] LABS: Baso % (Auto) 0.8 % (0.0-2.0); Eos # (Auto) 0.1 th/mm3 (0.0-0.4); Eos % (Auto) 1.7 % (0.0-4.0); Hematocrit 36.3 % (35.0-46.0); Hemoglobin 11.6 gm/dL (11.6-15.3); Lymph # (Auto) 1.3 th/mm3 (1.0-4.8); Lymph % (Auto) 24.5 % (9.0-44.0); Mean Corpuscular Hemoglobin 24.3 pg (27.0-34.0); Mean Corpuscular Volume 76.1 fL (80.0-100.0); Mean Platelet Volume 9.7 fL (7.0-11.0); Mono # (Auto) 0.7 th/mm3 (0.0-0.9); Mono % (Auto) 13.7 % (0.0-8.0); Neut # (Auto) 3.2 th/mm3 (1.8-7.7); Neut % (Auto) 59.3 % (16.0-70.0); Platelet Count 280 th/mm3 (150-450); Red Blood Count 4.77 mil/mm3 (4.00-5.30); Red Cell Distribution Width 19.1 % (11.6-17.2); White Blood Count 5.4 th/mm3 (4.0-11.0)
--- NOTE | 2018-03-05 19:08 | XR ---
EXAM DATE: 03/05/2018 6:46 PM EDT AGE/SEX: 67 years / Female INDICATIONS: Short of breath CLINICAL DATA: This is the patient's initial encounter. Patient reports that signs and symptoms have been present for 1 week and indicates a pain score of 0/10. MEDICAL/SURGICAL HISTORY: . Congestive heart failure. heart attack, hypertension . COMPARISON: [facility] [place], CHEST 2V PA&LAT, 02/05/2018. . FINDINGS: A single AP view of the chest demonstrates the lungs to be symmetrically aerated without evidence of mass, or infiltrate. Stable horizontally limited atelectasis or scarring in the lateral mid lungs bi laterally. The heart is mildly enlarged, similar to prior. There is some questionable blunting of the costophrenic angles on both sides.. Osseous structures are intact. CONCLUSION: The only new finding is questionable bilateral cardiophrenic angle blunting suggesting possible pleur al effusions. May consider performing a good quality PA and lateral view of the chest in erect positi on for further characterization. The lungs are clear. Electronically signed by: Izaiah Jennings MD 03/05/2018 7:07 PM EDT
[2018-03-05 19:34] LABS: Albumin 2.8 g/dL (3.4-5.0); Anion Gap 13 meq/L (5-15); Aspartate Aminotransferase 18 U/L (15-37); Blood Urea Nitrogen 34 mg/dL (7-18); Calcium 8.4 mg/dL (8.5-10.1); Carbon Dioxide 24.1 meq/L (21.0-32.0); Chloride 102 meq/L (98-107); Glomerular Filtration Rate 32 mL/min (>89); Glucose,Random 92 mg/dL (74-106); Potassium 3.6 meq/L (3.5-5.1); Sodium 139 meq/L (136-145)
[2018-03-05 19:35] LABS: Alanine Aminotransferase 17 U/L (10-53)
[2018-03-05 19:39] LABS: Alkaline Phosphatase 55 U/L (45-117); Troponin I 0.04 ng/mL (0.02-0.05)
[2018-03-05 20:26] LABS: Activated Partial Thrombo Time 32.7 sec (24.3-30.1); INR 3.6 Ratio; Prothrombin Time 36.1 sec (9.8-11.6)
[2018-03-05] MEDS ORDERED: Acetaminophen 325 MG Tablet PO PRN (21:13)
[2018-03-05] MEDS ORDERED: Bisacodyl 10 MG Supp RECTAL PRN (21:13)
--- NOTE | 2018-03-05 21:50 | P.HPFP ---
History of Present Illness Primary Care Physician: Melissa Monreal MD, R3 <SudheerBrannon scott 03/06/18 10:25> Melissa Monreal MD, R3 <Remington Stone 03/05/18 21:50> Chief Complaint: Lower extremity edema <Remington Stone 03/05/18 21:50> History of Present Illness: 67-year-old female presenting with an acute on chronic CHF exacerbation. She has a history of severe CHF with an EF of 20-25% as well as consistently wearing a life vest. She is followed by Dr. Mae of cardiology and has been referred to a specialist for her cardiomyopathy. She states that she recently had issues with nausea and vomiting, unable to hold down her Coreg or Lasix for approximately 1 week but was able to hold down liquids. She started feeling better and started taking her medications, was back on her Coreg and Lasix for 2 days and then developed progressive lower extremity swelling and edema as well as some shortness of breath. She denies fevers or chills, she denies chest pain or palpitations, she denies diarrhea or other abdominal discomfort. 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 Patient was recently admitted here in 01/2018 with similar symptomatology in management for acute on chronic CHF exacerbation. She states over the last few days she has noticed increased lower extremity edema. She reports compliance with her home furosemide of 20 mg p.o. twice daily. She also reports compliance with a heart healthy and low- sodium diet as well as fluid restriction daily. She denies any chest pain. Endorses cough primarily when supine. Endorses orthopnea. Denies fevers or other sick symptoms. Denies urinary or bowel issues. She has concerns regarding continuing to take her Coreg at her home dose of 25 mg by mouth twice daily which she believes this to be correlated with worsening lower extremity swelling. She maintains compliance with this medication however. She otherwise takes potassium supplementation daily as well as warfarin 2 mg on / /// and warfarin 4 mg on /. <Remington Stone 03/05/18 21:50> - Diagnosis (1) Acute exacerbation of CHF (congestive heart failure) (2) CKD (chronic kidney disease) (3) History of CVA (cerebrovascular accident) (4) Hypertension (5) Nutrition, metabolism, and development symptoms <Brannon Willard 03/06/18 10:25> (1) Acute exacerbation of CHF (congestive heart failure) (2) CKD (chronic kidney disease) (3) Hypertension (4) Nutrition, metabolism, and development symptoms <BerthaRemington 03/05/18 21:51> Inpatient Certification: I certify that the inpatient services were ordered in accordance with Medicare regulations governing the order. This includes certification that hospital inpatient services are reasonable and necessary and in the case of services not specified as inpatient-only under 42 CFR 419.22(n), that they are appropriately provided as inpatient services in accordance to with the 2-midnight benchmark under 43 CFR 412.3(e) <SudheerBrannon 03/06/18 10:25> I certify that the inpatient services were ordered in accordance with Medicare regulations governing the order. This includes certification that hospital inpatient services are reasonable and necessary and in the case of services not specified as inpatient-only under 42 CFR 419.22(n), that they are appropriately provided as inpatient services in accordance to with the 2-midnight benchmark under 43 CFR 412.3(e) <BerthaRemington 03/05/18 21:50> Estimated Total Length of Stay (Days): 2 <AnnievernonRemington 03/05/18 21:50> Plans for Post Hospital Care: Home <BerthaRemington 03/05/18 21:50> Review of Systems Constitutional: Reports weight gain, Denies chills, Denies fever(s), Denies headache(s), Denies night sweats <AnnievernonRemington 03/05/18 21:50> Eyes: Denies blurry vision <AnnievernonRemington 03/05/18 21:50> Cardiovascular: Reports foot swelling, Reports generalized swelling, Reports shortness of breath, Reports shortness of breath with activity, Reports shortness of breath when lying down, Denies chest pain, Denies chest pain at rest, Denies chest pain with activity, Denies rapid, pounding, or irregular heartbeat, Denies shortness of breath causing sudden awakening <Bertha [facility] 03/05/18 21:50> Respiratory: Reports cough, Reports shortness of breath, Reports shortness of breath with activity, Denies chest congestion, Denies coughing up blood, Denies pain with cough, Denies wheezing [facility] 03/05/18 21:50> Gastrointestinal: Denies abdominal pain, Denies black, tarry stools, Denies change in bowel habits, Denies change in stools, Denies constipation, Denies nausea, Denies vomiting <[facility] 03/05/18 21:50> Neurologic: Denies confusion, Denies dizziness, Denies headache(s) <[facility] 03/05/18 21:50> [facility] - History History Provided By: [facility] 03/05/18 21:50> - Medical History Medical History: Medical History (Last Reviewed 03/05/18 @ 18:30 by Abundio Wu) Bronchitis CHF (congestive heart failure) CVA (cerebral vascular accident) Coronary artery disease Fibromyalgia Hypertension Myocardial infarction <Dilcia Willardy 03/06/18 10:25> Medical History (Last Reviewed 03/05/18 @ 18:30 by Abundio Wu) Bronchitis CHF (congestive heart failure) CVA (cerebral vascular accident) Coronary artery disease Fibromyalgia Hypertension Myocardial infarction [facility] 03/05/18 21:50> - Family History Family History: Family History (Last Reviewed 02/07/18 @ 12:15 by Cristian Paul) Father CAD (coronary artery disease) Myocardial infarction Brother CAD (coronary artery disease) Myocardial infarction Other Malignant neoplasm [facility] 03/06/18 10:25> Family History (Last Reviewed 02/07/18 @ 12:15 by Cristian Paul) Father CAD (coronary artery disease) Myocardial infarction Brother CAD (coronary artery disease) Myocardial infarction Other Malignant neoplasm [facility] 03/05/18 21:50> - Tobacco History Second Hand Smoke Exposure: No [facility] 03/05/18 21:50> Smoking Status: Never smoker <Remington Stone 03/05/18 21:50> - Alcohol History How Often Do You Have a Drink Containing Alcohol: Never <Remington Stone 03/05/18 21:50> - Substance Use History Substance History: No History of Abuse <Remington Stone 03/05/18 21:50> - Travel History Recent Travel in the [facility] Within the Last 8 Weeks: No <QuitasaminavernonRemington 21:50> Recent Travel Out of the Country Within the Last 8 Weeks: No <Bertha Remington 03/05/18 21:50> - Immunization History Tetanus Immunization: Unsure <BerthaRemington 03/05/18 21:50> Hx Influenza Vaccine This Season: No <BerthaRemington 03/05/18 21:50> Medications and Allergies Allergies Allergy/AdvReac Type Severity Reaction Status Date / Time iodine Allergy Severe sneezing, Verified 03/05/18 21:38 chest tightness potassium iodide Allergy Severe sneezing, Verified 03/05/18 21:38 chest tightness povidone-iodine Allergy Severe sneezing, Verified 03/05/18 21:38 chest tightness sodium iodide Allergy Severe sneezing, Verified 03/05/18 21:38 chest tightness sodium iodide Allergy Severe sneezing, Verified 03/05/18 21:38 chest tightness sulfamethoxazole Allergy Intermediate abdominal Verified 03/05/18 21:38 pain trimethoprim Allergy Intermediate abdominal Verified 03/05/18 21:38 pain hydralazine Allergy Unknown Edema Verified 03/05/18 21:38 Statins Allergy Unknown Hives Uncoded 03/05/18 18:25 <Brannon Willard - 03/06/18 10:25> Home Medications Medication Instructions Recorded Confirmed Type esomeprazole magnesium 40 mg PO DAILY 02/05/18 03/05/18 History ondansetron 4 mg PO BID PRN 02/05/18 03/05/18 History warfarin 1 mg PO Q OTHER DAY 03/05/18 03/05/18 History warfarin 2 mg PO Q OTHER DAY 03/05/18 03/05/18 History <Brannon Willard - 03/06/18 10:25> Active Medications: Active Medications Acetaminophen (Tylenol) 650 mg PO Q4H PRN PRN Reason: Temp > 100.4, Pain 1-10, [place] Al Hydroxide/Mg Hydroxide (Milk Of Magnesia Liq) 30 ml PO Q12H PRN PRN Reason: Mild Constipation Benzonatate (Tessalon Perles) 200 mg PO Q8H PRN PRN Reason: COUGH Bisacodyl (Dulcolax Supp) 10 mg RECTAL DAILY PRN PRN Reason: SEVERE CONSITIPATION Carvedilol (Coreg) 25 mg PO BID ANAHI Clonidine HCl (Catapres) 0.1 mg PO Q6H PRN PRN Reason: BP >180/110 Furosemide (Lasix Inj) 40 mg IV.PUSH BID@0900,1800 ANAHI Lactulose (Lactulose Liq) 30 ml PO DAILY PRN PRN Reason: SEVERE CONSITIPATION Potassium Chloride (K-Dur) 20 meq PO DAILY ANAHI Senna/Docusate Sodium (Aleyda-Colace) 1 tab PO BID ANAHI Warfarin Sodium (Coumadin) 4 mg PO TUTH@1600 ANAHI Warfarin Sodium (Coumadin) 2 mg PO SUMOWEFRSA@1600 [facility] <Brannon Willard - 03/06/18 10:25> Active Medications Acetaminophen (Tylenol) 650 mg PO Q4H PRN PRN Reason: Temp > 100.4, Pain 1-10, [place] Al Hydroxide/Mg Hydroxide (Milk Of Magnesia Liq) 30 ml PO Q12H PRN PRN Reason: Mild Constipation Bisacodyl (Dulcolax Supp) 10 mg RECTAL DAILY PRN PRN Reason: SEVERE CONSITIPATION Carvedilol (Coreg) 25 mg PO BID ANAHI Furosemide (Lasix Inj) 40 mg IV.PUSH BID@0900,1800 ANAHI Lactulose (Lactulose Liq) 30 ml PO DAILY PRN PRN Reason: SEVERE CONSITIPATION Potassium Chloride (K-Dur) 20 meq PO DAILY ANAHI Senna/Docusate Sodium (Aleyda-Colace) 1 tab PO BID ANAHI Warfarin Sodium (Coumadin) 4 mg PO TUTH@1600 ANAHI Warfarin Sodium (Coumadin) 2 mg PO SUMOWEFRSA@1600 ANAHI <Remington Stone - 03/05/18 21:50> Exam Vital signs: Vital Signs 03/05/18 15:35 03/05/18 15:42 03/05/18 18:44 Temperature 98.4 F Pulse Rate 91 H Respiratory Rate 16 19 Blood Pressure 136/102 H Pulse Oximetry 95 95 03/05/18 19:42 03/05/18 23:07 03/05/18 23:50 Temperature 97.9 F Pulse Rate 100 H 87 Respiratory Rate 15 18 18 Blood Pressure 137/102 H 136/102 H Pulse Oximetry 100 94 L 03/06/18 01:24 03/06/18 04:00 03/06/18 07:28 Temperature 97.5 F L 97.8 F 97.7 F Pulse Rate 85 85 77 Respiratory Rate 16 16 18 Blood Pressure 138/108 H 129/96 H 128/80 Pulse Oximetry 99 98 97 Intake & Output 03/05/18 03/06/18 03/06/18 18:59 06:59 18:59 Intake Total 118 / 118 Balance 118 / 118 Weight 86.183 kg Intake: Oral 118 / 118 <Brannon Willard - 03/06/18 10:25> Vital Signs 03/05/18 15:35 03/05/18 15:42 03/05/18 18:44 Temperature 98.4 F Pulse Rate 91 H Respiratory Rate 16 19 Blood Pressure 136/102 H Pulse Oximetry 95 95 Intake & Output 03/05/18 03/05/18 03/06/18 06:59 18:59 06:59 Weight 86.183 kg <Remington Stone - 03/05/18 21:50> Narrative: General: Lying in bed in no obvious distress CV: Regular rate and rhythm with 2/6 systolic murmur. 2+ lower extremity edema up to the hips and pitting. Pulmonary: Distant breath sounds bilaterally no obvious wheezing or rhonchi. Bibasilar crackles heard on exam GI: Abdomen soft, nontender, nondistended She is wearing a LifeVest <Brannon Willard - 03/06/18 10:25> GENERAL: NAD, lying comfortably in bed NEURO: Alert. Normal speech. regulatory lead grossly intact. Motor grossly normal. Moving all extremities. SKIN: Warm and dry. No rashes or erythema. HEAD: Normocephalic. Atraumatic. EYES: PERRL. EOMI. No scleral icterus. No injection or drainage. ENT: No nasal drainage. Moist mucous membranes. No oral ulcers or lesions. NECK: Supple, trachea midline. No lymphadenopathy. JVD present bilaterally. CARDIOVASCULAR: Regular rate and rhythm without rubs or gallops. Early to mid systolic murmur auscultated along both left and right upper sternal borders. Peripheral pulses 2+. Capillary refill < 2 seconds. RESPIRATORY: Breath sounds equal bilaterally, faint rales bibasilar. No wheezing or rhonchi. No accessory muscle use. GASTROINTESTINAL: Abdomen soft, nontender, nondistended, normal BS. No rebound tenderness. No guarding. MUSCULOSKELETAL: 3+ lower extremity edema up to knees bilaterally. Normal range of motion. BACK: Nontender without obvious deformity. <Remington Stone - 03/05/18 21:50> Results - Labs Result diagrams: 03/06/18 05:55 03/06/18 05:55 <Brannon Willard - 03/06/18 10:25> Abnormal lab results 03/05/18 03/05/18 03/05/18 Range/Units 18:45 18:45 18:45 Hgb (11.6-15.3) gm/dL Hct (35.0-46.0) % MCV 76.1 L (80.0-100.0) fL MCH 24.3 L (27.0-34.0) pg RDW 19.1 H (11.6-17.2) % [place] % (Auto) 13.7 H (0.0-8.0) % PT (9.8-11.6) sec APTT (24.3-30.1) sec Potassium (3.5-5.1) meq/L BUN 34 H (7-18) mg/dL Creatinine 1.87 H (0.50-1.00) mg/dL Estimated GFR 32 L (>89) mL/min Calcium 8.4 L (8.5-10.1) mg/dL Total Bilirubin 2.2 H (0.2-1.0) mg/dL B-Natriuretic Peptide Greater than 5000 H (0-100) pg/mL Total Protein 6.0 L (6.4-8.2) g/dL Albumin 2.8 L (3.4-5.0) g/dL 03/05/18 03/06/18 03/06/18 Range/Units 19:30 05:55 05:55 Hgb 10.8 L (11.6-15.3) gm/dL Hct 33.6 L (35.0-46.0) % MCV 75.1 L (80.0-100.0) fL MCH 24.2 L (27.0-34.0) pg RDW 19.2 H (11.6-17.2) % [place] % (Auto) 15.6 H (0.0-8.0) % PT 36.1 H (9.8-11.6) sec APTT 32.7 H (24.3-30.1) sec Potassium 3.4 L (3.5-5.1) meq/L BUN 34 H (7-18) mg/dL Creatinine 1.69 H (0.50-1.00) mg/dL Estimated GFR 37 L (>89) mL/min Calcium 8.2 L (8.5-10.1) mg/dL Total Bilirubin (0.2-1.0) mg/dL B-Natriuretic Peptide (0-100) pg/mL Total Protein (6.4-8.2) g/dL Albumin (3.4-5.0) g/dL 03/06/18 Range/Units 05:55 Hgb (11.6-15.3) gm/dL Hct (35.0-46.0) % MCV (80.0-100.0) fL MCH (27.0-34.0) pg RDW (11.6-17.2) % [place] % (Auto) (0.0-8.0) % PT 37.9 H (9.8-11.6) sec APTT (24.3-30.1) sec Potassium (3.5-5.1) meq/L BUN (7-18) mg/dL Creatinine (0.50-1.00) mg/dL Estimated GFR (>89) mL/min Calcium (8.5-10.1) mg/dL Total Bilirubin (0.2-1.0) mg/dL B-Natriuretic Peptide (0-100) pg/mL Total Protein (6.4-8.2) g/dL Albumin (3.4-5.0) g/dL Short CBC 03/05/18 03/06/18 Range/Units 18:45 05:55 WBC 5.4 4.9 (4.0-11.0) th/mm3 Hgb 11.6 10.8 L (11.6-15.3) gm/dL Hct 36.3 33.6 L (35.0-46.0) % Plt Count 280 263 (150-450) th/mm3 BMP 03/05/18 03/06/18 18:45 05:55 Sodium 139 140 Potassium 3.6 3.4 L Chloride 102 103 Carbon Dioxide 24.1 23.3 BUN 34 H 34 H Creatinine 1.87 H 1.69 H Calcium 8.4 L 8.2 L Cardiac Enzymes 03/05/18 Range/Units 18:45 Troponin I 0.04 (0.02-0.05) ng/mL Liver Function 03/05/18 Range/Units 18:45 Total Bilirubin 2.2 H (0.2-1.0) mg/dL AST 18 (15-37) U/L ALT 17 (10-53) U/L Alkaline Phosphatase 55 (45-117) U/L Albumin 2.8 L (3.4-5.0) g/dL <Brannon Willard - 03/06/18 10:25> Abnormal lab results 03/05/18 03/05/18 03/05/18 Range/Units 18:45 18:45 18:45 MCV 76.1 L (80.0-100.0) fL MCH 24.3 L (27.0-34.0) pg RDW 19.1 H (11.6-17.2) % [place] % (Auto) 13.7 H (0.0-8.0) % PT (9.8-11.6) sec APTT (24.3-30.1) sec BUN 34 H (7-18) mg/dL Creatinine 1.87 H (0.50-1.00) mg/dL Estimated GFR 32 L (>89) mL/min Calcium 8.4 L (8.5-10.1) mg/dL Total Bilirubin 2.2 H (0.2-1.0) mg/dL B-Natriuretic Peptide Greater than 5000 H (0-100) pg/mL Total Protein 6.0 L (6.4-8.2) g/dL Albumin 2.8 L (3.4-5.0) g/dL 03/05/18 Range/Units 19:30 MCV (80.0-100.0) fL MCH (27.0-34.0) pg RDW (11.6-17.2) % [place] % (Auto) (0.0-8.0) % PT 36.1 H (9.8-11.6) sec APTT 32.7 H (24.3-30.1) sec BUN (7-18) mg/dL Creatinine (0.50-1.00) mg/dL Estimated GFR (>89) mL/min Calcium (8.5-10.1) mg/dL Total Bilirubin (0.2-1.0) mg/dL B-Natriuretic Peptide (0-100) pg/mL Total Protein (6.4-8.2) g/dL Albumin (3.4-5.0) g/dL Short CBC 03/05/18 Range/Units 18:45 WBC 5.4 (4.0-11.0) th/mm3 Hgb 11.6 (11.6-15.3) gm/dL Hct 36.3 (35.0-46.0) % Plt Count 280 (150-450) th/mm3 BMP 03/05/18 18:45 Sodium 139 Potassium 3.6 Chloride 102 Carbon Dioxide 24.1 BUN 34 H Creatinine 1.87 H Calcium 8.4 L Cardiac Enzymes 03/05/18 Range/Units 18:45 Troponin I 0.04 (0.02-0.05) ng/mL Liver Function 03/05/18 Range/Units 18:45 Total Bilirubin 2.2 H (0.2-1.0) mg/dL AST 18 (15-37) U/L ALT 17 (10-53) U/L Alkaline Phosphatase 55 (45-117) U/L Albumin 2.8 L (3.4-5.0) g/dL <Remington Stone - 03/05/18 21:50> - Imaging Impressions Venous Doppler Study 03/05/18 18:29 CONCLUSION: 1. The study is negative for bilateral lower extremity deep venous thrombosis. Chest X-Ray 03/05/18 18:31 CONCLUSION: The only new finding is questionable bilateral cardiophrenic angle blunting suggesting possible pleural effusions. May consider performing a good quality PA and lateral view of the chest in erect position for further characterization. The lungs are clear. <Brannon Willard - 03/06/18 10:25> Impressions Chest X-Ray 03/05/18 18:31 CONCLUSION: The only new finding is questionable bilateral cardiophrenic angle blunting suggesting possible pleural effusions. May consider performing a good quality PA and lateral view of the chest in erect position for further characterization. The lungs are clear. <Gavin Stonesh - 03/05/18 21:50> Caprini VTE Risk Assessment Caprini VTE Risk Assessment: Moderate/High Risk (score >= 2) <Remington Stone - 03/05/18 21:50> [place] Risk Assessment Model: Point Value = 1 Point Value = 2 Point Value = 3 Point Value = 5 Age 41-60 Minor surgery BMI > 25 kg/m2 Swollen legs Varicose veins or History of unexplained or recurrent spontaneous Oral contraceptives or hormone replacement Sepsis (< 1 month) Serious lung disease, including pneumonia (< 1 month) Abnormal pulmonary function Acute myocardial infarction Congestive heart failure (< 1 month) History of inflammatory bowel disease Medical patient at bed rest Age 61-74 Arthroscopic surgery Major open surgery (> 45 min) Laparoscopic surgery (> 45 min) Malignancy Confined to bed (> 72 hours) Immobilizing plaster cast Central venous access Age >= 75 History of VTE Family history of VTE Factor V Leiden Prothrombin [id number] Lupus anticoagulant Anticardiolipin antibodies Elevated serum homocysteine Heparin-induced thrombocytopenia Other congenital or acquired thrombophilia Stroke (< 1 month) Elective arthroplasty Hip, pelvis, or leg fracture Acute spinal cord injury (< 1 month) <Brannon Willard - 03/06/18 10:25> Point Value = 1 Point Value = 2 Point Value = 3 Point Value = 5 Age 41-60 Minor surgery BMI > 25 kg/m2 Swollen legs Varicose veins or History of unexplained or recurrent spontaneous Oral contraceptives or hormone replacement Sepsis (< 1 month) Serious lung disease, including pneumonia (< 1 month) Abnormal pulmonary function Acute myocardial infarction Congestive heart failure (< 1 month) History of inflammatory bowel disease Medical patient at bed rest Age 61-74 Arthroscopic surgery Major open surgery (> 45 min) Laparoscopic surgery (> 45 min) Malignancy Confined to bed (> 72 hours) Immobilizing plaster cast Central venous access Age >= 75 History of VTE Family history of VTE Factor V Leiden Prothrombin [id number] Lupus anticoagulant Anticardiolipin antibodies Elevated serum homocysteine Heparin-induced thrombocytopenia Other congenital or acquired thrombophilia Stroke (< 1 month) Elective arthroplasty Hip, pelvis, or leg fracture Acute spinal cord injury (< 1 month) <Remington Stone - 03/05/18 21:50> Prophylaxis Regimen: Total Risk Factor Score Risk Level Prophylaxis Regimen 0-1 Low Early ambulation 2 Moderate Order ONE of the following: *Sequential Compression Device (SCD) *Heparin 5000 units SQ BID 3-4 Higher Order ONE of the following medications: *Heparin 5000 units SQ TID *Enoxaparin/Lovenox 40 mg SQ daily (WT < 150 kg, CrCl > 30 mL/min) *Enoxaparin/Lovenox 30 mg SQ daily (WT < 150 kg, CrCl > 10-29 mL/min) *Enoxaparin/Lovenox 30 mg SQ BID (WT < 150 kg, CrCl > 30 mL/min) AND/OR *Sequential Compression Device (SCD) 5 or more Highest Order ONE of the following medications: *Heparin 5000 units SQ TID (Preferred with Epidurals) *Enoxaparin/Lovenox 40 mg SQ daily (WT < 150 kg, CrCl > 30 mL/min) *Enoxaparin/Lovenox 30 mg SQ daily (WT < 150 kg, CrCl > 10-29 mL/min) *Enoxaparin/Lovenox 30 mg SQ BID (WT < 150 kg, CrCl > 30 mL/min) AND *Sequential Compression Device (SCD) <Brannon Willard - 03/06/18 10:25> Total Risk Factor Score Risk Level Prophylaxis Regimen 0-1 Low Early ambulation 2 Moderate Order ONE of the following: *Sequential Compression Device (SCD) *Heparin 5000 units SQ BID 3-4 Higher Order ONE of the following medications: *Heparin 5000 units SQ TID *Enoxaparin/Lovenox 40 mg SQ daily (WT < 150 kg, CrCl > 30 mL/min) *Enoxaparin/Lovenox 30 mg SQ daily (WT < 150 kg, CrCl > 10-29 mL/min) *Enoxaparin/Lovenox 30 mg SQ BID (WT < 150 kg, CrCl > 30 mL/min) AND/OR *Sequential Compression Device (SCD) 5 or more Highest Order ONE of the following medications: *Heparin 5000 units SQ TID (Preferred with Epidurals) *Enoxaparin/Lovenox 40 mg SQ daily (WT < 150 kg, CrCl > 30 mL/min) *Enoxaparin/Lovenox 30 mg SQ daily (WT < 150 kg, CrCl > 10-29 mL/min) *Enoxaparin/Lovenox 30 mg SQ BID (WT < 150 kg, CrCl > 30 mL/min) AND *Sequential Compression Device (SCD) <Remington Stone - 03/05/18 21:50> Assessment and Plan - Assessment (1) Acute exacerbation of CHF (congestive heart failure) Code(s): I50.9 - Heart failure, unspecified Status: Acute Plan: Acute exacerbation of chronic congestive heart failure Patient given Lasix 80 mg IV 1 in the emergency department and will receive 40 mg IV twice daily Cardiology consulted to evaluate patient for further workup and treatment (2) CKD (chronic kidney disease) Code(s): N18.9 - Chronic kidney disease, unspecified Status: Chronic Plan: Creatinine 1.87 on admission with baseline approximately 1.4 Monitor with daily labs and proceed with diuresis as above (3) History of CVA (cerebrovascular accident) Code(s): Z86.73 - Personal history of transient ischemic attack (TIA), and cerebral infarction without residual deficits Status: Acute (4) Hypertension Code(s): I10 - Essential (primary) hypertension Status: Chronic Plan: History of hypertension, continue to monitor and continue Coreg (5) Nutrition, metabolism, and development symptoms Code(s): R63.8 - Other symptoms and signs concerning food and fluid intake Status: Acute <Brannon Willard - 03/06/18 10:25> (1) Acute exacerbation of CHF (congestive heart failure) Code(s): I50.9 - Heart failure, unspecified Status: Acute Plan: Patient with two-day history of worsening b/l lower extremity edema and orthopnea, si/sxs consistent with acute on chronic CHF exacerbation, unclear etiology as to what caused her exacerbation at this time Pt given Lasix 80 mg IV in ED, continue with 40 mg IV bid tomorrow Continue KCl at 20 mEq po daily Hold coreg for now until symptoms are more stable Monitor I/Os and daily weights Consult placed to nephrology given patient needing diuresis and with acute on chronic kidney disease Consult cardiology, patient known to Dr. Mae EKG sinus rhythm with noted PVCs, no significant ST changes CXR with possible b/l costophrenic angle blunting due to effusion Patient had echo done on 11/16/17 which showed EF of 25-30% and moderate tricuspid regurgitation. Repeat echo done on 01/18/18 showed EF of 20%, moderate to severe mitral and tricuspid regurgitation, and left atrial enlargement. Echo from 02/08 showing EF in the range of 20-25%, pulmonary arterial pressure of 77, mod to severe MVR, severe TVR, av sclerosis, severely dilated LV. Results of echo reviewed with the patient this AM (2) CKD (chronic kidney disease) Code(s): N18.9 - Chronic kidney disease, unspecified Status: Acute Plan: Cr 1.87 on admission, baseline ~1.4 Likely due to low renal perfusion pressure due to CHF Continue diuresis as above Consult nephrology (3) Hypertension Code(s): I10 - Essential (primary) hypertension Status: Chronic Plan: Patient has h/o HTN per chart review, vitals wnl on admission Continue to monitor (4) Nutrition, metabolism, and development symptoms Code(s): R63.8 - Other symptoms and signs concerning food and fluid intake Status: Acute Plan: Fluids: per PO, fluid restriction to 1800 mL daily Electrolytes: continue to monitor and replete as needed Nutrition: Heart healthy diet, sodium restriction to 2gm daily DVT ppx: Patient on warfarin, continue home dose GI ppx: not indicated at this time <Remington Stone - 03/05/18 21:51>
--- NOTE | 2018-03-05 23:07 | US ---
EXAM DATE: 03/05/2018 7:48 PM EDT AGE/SEX: 67 years / Female INDICATIONS: Bilateral leg swelling. CLINICAL DATA: This is the patient's subsequent encounter. Patient reports that signs and symptoms h ave been present for 1 month and indicates a pain score of 10/10. MEDICAL/SURGICAL HISTORY: Hypertension. Bronchitis. Congestive heart failure. Coronary artery d isease. Cerebrovascular accident. Fibromyalgia. Myocardial infarction. None. COMPARISON: No prior exams available for comparison. TECHNIQUE: Venous ultrasound of both lower extremities was performed from the inguinal ligament to t he proximal calf. Real-time, color Doppler and spectral tracing, compression and augmentation techni ques were used. FINDINGS: Right Leg: Normal compression of the deep venous system from the inguinal region to the proximal coty f. No echogenic clot is seen. Normal response of the venous system to augmentation and respiration. Left Leg: Normal compression of the deep venous system from the inguinal region to the proximal calf . No echogenic clot is seen. Normal response of the venous system to augmentation and respiration. Other: None. CONCLUSION: 1. The study is negative for bilateral lower extremity deep venous thrombosis. Electronically signed by: Izaiah Jennings MD 03/05/2018 11:06 PM EDT
[2018-03-06 07:19] LABS: Baso % (Auto) 0.5 % (0.0-2.0); Eos # (Auto) 0.1 th/mm3 (0.0-0.4); Eos % (Auto) 1.1 % (0.0-4.0); Hematocrit 33.6 % (35.0-46.0); Hemoglobin 10.8 gm/dL (11.6-15.3); Lymph # (Auto) 1.1 th/mm3 (1.0-4.8); Lymph % (Auto) 22.7 % (9.0-44.0); Mean Corpuscular HGB Conc 32.2 % (32.0-36.0); Mean Corpuscular Hemoglobin 24.2 pg (27.0-34.0); Mean Corpuscular Volume 75.1 fL (80.0-100.0); Mean Platelet Volume 10.3 fL (7.0-11.0); Mono # (Auto) 0.8 th/mm3 (0.0-0.9); Mono % (Auto) 15.6 % (0.0-8.0); Neut # (Auto) 2.9 th/mm3 (1.8-7.7); Neut % (Auto) 60.1 % (16.0-70.0); Platelet Count 263 th/mm3 (150-450); Red Blood Count 4.47 mil/mm3 (4.00-5.30); Red Cell Distribution Width 19.2 % (11.6-17.2); White Blood Count 4.9 th/mm3 (4.0-11.0)
[2018-03-06 07:25] LABS: INR 3.8 Ratio; Prothrombin Time 37.9 sec (9.8-11.6)
[2018-03-06 07:39] LABS: Calcium 8.2 mg/dL (8.5-10.1); Carbon Dioxide 23.3 meq/L (21.0-32.0); Potassium 3.4 meq/L (3.5-5.1)
[2018-03-06] MEDS ORDERED: Benzonatate 100 MG Capsule PO PRN (09:21)
--- NOTE | 2018-03-06 09:26 | P.PNFP ---
Subjective Interval history: Patient examined independently this morning during medical rounds. She states that she has a significant amount of urine output overnight and into this morning. She states that her breathing has improved and her swelling has improved although she continues to have significant edema up to her hips. She denies any chest pain. She denies any palpitations. She denies any worsening of her shortness of breath. <Brannon Willard - 03/06/18 10:27> Patient seen and examined this morning. No acute events overnight per nursing staff. Patient states she did well overnight and felt like she has "lost a lot of fluid" since starting her IV Lasix. She states that she feels approximately 70% better from her admission, however does note that she "has a long way to go. " She also states that her shortness of breath has improved however her cough is not. She states the cough is dry and constant. She also endorses having bilateral calf tenderness secondary to her edema. She scores the pain a 6/10 with a sharp light quality when palpated without radiation. Her main concern this morning she feels that her lower extremity edema secondary to her carvedilol use. We briefly discussed the importance of beta-blockers and CHF management with all questions answered. I encouraged her to discuss this with her brand advisor as he has been consulted. Otherwise her only complaint this morning is 1 episode of nausea this morning as "nothing was on her stomach after she woke up." She states this is been her baseline for a couple of weeks and improves when she is able to eat something. Otherwise she has no acute complaints and denies a complete review of systems including but not limited to any fevers, chills, shortness of breath, chest pain, V/D, or abdominal pain. <Rafael Davis H - 03/06/18 09:25> Results - Labs Result diagrams: 03/06/18 05:55 03/06/18 05:55 <Brannon Willard - 03/06/18 10:27> Abnormal lab results 03/05/18 03/05/18 03/05/18 Range/Units 18:45 18:45 18:45 Hgb (11.6-15.3) gm/dL Hct (35.0-46.0) % MCV 76.1 L (80.0-100.0) fL MCH 24.3 L (27.0-34.0) pg RDW 19.1 H (11.6-17.2) % [place] % (Auto) 13.7 H (0.0-8.0) % PT (9.8-11.6) sec APTT (24.3-30.1) sec Potassium (3.5-5.1) meq/L BUN 34 H (7-18) mg/dL Creatinine 1.87 H (0.50-1.00) mg/dL Estimated GFR 32 L (>89) mL/min Calcium 8.4 L (8.5-10.1) mg/dL Total Bilirubin 2.2 H (0.2-1.0) mg/dL B-Natriuretic Peptide Greater than 5000 H (0-100) pg/mL Total Protein 6.0 L (6.4-8.2) g/dL Albumin 2.8 L (3.4-5.0) g/dL 03/05/18 03/06/18 03/06/18 Range/Units 19:30 05:55 05:55 Hgb 10.8 L (11.6-15.3) gm/dL Hct 33.6 L (35.0-46.0) % MCV 75.1 L (80.0-100.0) fL MCH 24.2 L (27.0-34.0) pg RDW 19.2 H (11.6-17.2) % [place] % (Auto) 15.6 H (0.0-8.0) % PT 36.1 H (9.8-11.6) sec APTT 32.7 H (24.3-30.1) sec Potassium 3.4 L (3.5-5.1) meq/L BUN 34 H (7-18) mg/dL Creatinine 1.69 H (0.50-1.00) mg/dL Estimated GFR 37 L (>89) mL/min Calcium 8.2 L (8.5-10.1) mg/dL Total Bilirubin (0.2-1.0) mg/dL B-Natriuretic Peptide (0-100) pg/mL Total Protein (6.4-8.2) g/dL Albumin (3.4-5.0) g/dL 03/06/18 Range/Units 05:55 Hgb (11.6-15.3) gm/dL Hct (35.0-46.0) % MCV (80.0-100.0) fL MCH (27.0-34.0) pg RDW (11.6-17.2) % [place] % (Auto) (0.0-8.0) % PT 37.9 H (9.8-11.6) sec APTT (24.3-30.1) sec Potassium (3.5-5.1) meq/L BUN (7-18) mg/dL Creatinine (0.50-1.00) mg/dL Estimated GFR (>89) mL/min Calcium (8.5-10.1) mg/dL Total Bilirubin (0.2-1.0) mg/dL B-Natriuretic Peptide (0-100) pg/mL Total Protein (6.4-8.2) g/dL Albumin (3.4-5.0) g/dL Short CBC 03/05/18 03/06/18 Range/Units 18:45 05:55 WBC 5.4 4.9 (4.0-11.0) th/mm3 Hgb 11.6 10.8 L (11.6-15.3) gm/dL Hct 36.3 33.6 L (35.0-46.0) % Plt Count 280 263 (150-450) th/mm3 BMP 03/05/18 03/06/18 18:45 05:55 Sodium 139 140 Potassium 3.6 3.4 L Chloride 102 103 Carbon Dioxide 24.1 23.3 BUN 34 H 34 H Creatinine 1.87 H 1.69 H Calcium 8.4 L 8.2 L Cardiac Enzymes 03/05/18 Range/Units 18:45 Troponin I 0.04 (0.02-0.05) ng/mL Liver Function 03/05/18 Range/Units 18:45 Total Bilirubin 2.2 H (0.2-1.0) mg/dL AST 18 (15-37) U/L ALT 17 (10-53) U/L Alkaline Phosphatase 55 (45-117) U/L Albumin 2.8 L (3.4-5.0) g/dL <Brannon Willard - 03/06/18 10:27> Abnormal lab results 03/05/18 03/05/18 03/05/18 Range/Units 18:45 18:45 18:45 Hgb (11.6-15.3) gm/dL Hct (35.0-46.0) % MCV 76.1 L (80.0-100.0) fL MCH 24.3 L (27.0-34.0) pg RDW 19.1 H (11.6-17.2) % [place] % (Auto) 13.7 H (0.0-8.0) % PT (9.8-11.6) sec APTT (24.3-30.1) sec Potassium (3.5-5.1) meq/L BUN 34 H (7-18) mg/dL Creatinine 1.87 H (0.50-1.00) mg/dL Estimated GFR 32 L (>89) mL/min Calcium 8.4 L (8.5-10.1) mg/dL Total Bilirubin 2.2 H (0.2-1.0) mg/dL B-Natriuretic Peptide Greater than 5000 H (0-100) pg/mL Total Protein 6.0 L (6.4-8.2) g/dL Albumin 2.8 L (3.4-5.0) g/dL 03/05/18 03/06/18 03/06/18 Range/Units 19:30 05:55 05:55 Hgb 10.8 L (11.6-15.3) gm/dL Hct 33.6 L (35.0-46.0) % MCV 75.1 L (80.0-100.0) fL MCH 24.2 L (27.0-34.0) pg RDW 19.2 H (11.6-17.2) % [place] % (Auto) 15.6 H (0.0-8.0) % PT 36.1 H (9.8-11.6) sec APTT 32.7 H (24.3-30.1) sec Potassium 3.4 L (3.5-5.1) meq/L BUN 34 H (7-18) mg/dL Creatinine 1.69 H (0.50-1.00) mg/dL Estimated GFR 37 L (>89) mL/min Calcium 8.2 L (8.5-10.1) mg/dL Total Bilirubin (0.2-1.0) mg/dL B-Natriuretic Peptide (0-100) pg/mL Total Protein (6.4-8.2) g/dL Albumin (3.4-5.0) g/dL 03/06/18 Range/Units 05:55 Hgb (11.6-15.3) gm/dL Hct (35.0-46.0) % MCV (80.0-100.0) fL MCH (27.0-34.0) pg RDW (11.6-17.2) % [place] % (Auto) (0.0-8.0) % PT 37.9 H (9.8-11.6) sec APTT (24.3-30.1) sec Potassium (3.5-5.1) meq/L BUN (7-18) mg/dL Creatinine (0.50-1.00) mg/dL Estimated GFR (>89) mL/min Calcium (8.5-10.1) mg/dL Total Bilirubin (0.2-1.0) mg/dL B-Natriuretic Peptide (0-100) pg/mL Total Protein (6.4-8.2) g/dL Albumin (3.4-5.0) g/dL Short CBC 03/05/18 03/06/18 Range/Units 18:45 05:55 WBC 5.4 4.9 (4.0-11.0) th/mm3 Hgb 11.6 10.8 L (11.6-15.3) gm/dL Hct 36.3 33.6 L (35.0-46.0) % Plt Count 280 263 (150-450) th/mm3 BMP 03/05/18 03/06/18 18:45 05:55 Sodium 139 140 Potassium 3.6 3.4 L Chloride 102 103 Carbon Dioxide 24.1 23.3 BUN 34 H 34 H Creatinine 1.87 H 1.69 H Calcium 8.4 L 8.2 L Cardiac Enzymes 03/05/18 Range/Units 18:45 Troponin I 0.04 (0.02-0.05) ng/mL Liver Function 03/05/18 Range/Units 18:45 Total Bilirubin 2.2 H (0.2-1.0) mg/dL AST 18 (15-37) U/L ALT 17 (10-53) U/L Alkaline Phosphatase 55 (45-117) U/L Albumin 2.8 L (3.4-5.0) g/dL <Rafael Davis H - 03/06/18 09:25> - Imaging Impressions Venous Doppler Study 03/05/18 18:29 CONCLUSION: 1. The study is negative for bilateral lower extremity deep venous thrombosis. Chest X-Ray 03/05/18 18:31 CONCLUSION: The only new finding is questionable bilateral cardiophrenic angle blunting suggesting possible pleural effusions. May consider performing a good quality PA and lateral view of the chest in erect position for further characterization. The lungs are clear. <Brannon Willard - 03/06/18 10:27> Impressions Venous Doppler Study 03/05/18 18:29 CONCLUSION: 1. The study is negative for bilateral lower extremity deep venous thrombosis. Chest X-Ray 03/05/18 18:31 CONCLUSION: The only new finding is questionable bilateral cardiophrenic angle blunting suggesting possible pleural effusions. May consider performing a good quality PA and lateral view of the chest in erect position for further characterization. The lungs are clear. <Rafael Davis H - 03/06/18 09:25> Physical Exam Vital signs: Vital Signs 03/05/18 15:35 03/05/18 15:42 03/05/18 18:44 Temperature 98.4 F Pulse Rate 91 H Respiratory Rate 16 19 Blood Pressure 136/102 H Pulse Oximetry 95 95 03/05/18 19:42 03/05/18 23:07 03/05/18 23:50 Temperature 97.9 F Pulse Rate 100 H 87 Respiratory Rate 15 18 18 Blood Pressure 137/102 H 136/102 H Pulse Oximetry 100 94 L 03/06/18 01:24 03/06/18 04:00 03/06/18 07:28 Temperature 97.5 F L 97.8 F 97.7 F Pulse Rate 85 85 77 Respiratory Rate 16 16 18 Blood Pressure 138/108 H 129/96 H 128/80 Pulse Oximetry 99 98 97 Intake & Output 03/05/18 03/06/18 03/06/18 18:59 06:59 18:59 Intake Total 118 / 118 Balance 118 / 118 Weight 86.183 kg Intake: Oral 118 / 118 <Brannon Willard - 03/06/18 10:27> Vital Signs 03/05/18 15:35 03/05/18 15:42 03/05/18 18:44 Temperature 98.4 F Pulse Rate 91 H Respiratory Rate 16 19 Blood Pressure 136/102 H Pulse Oximetry 95 95 03/05/18 19:42 03/05/18 23:07 03/05/18 23:50 Temperature 97.9 F Pulse Rate 100 H 87 Respiratory Rate 15 18 18 Blood Pressure 137/102 H 136/102 H Pulse Oximetry 100 94 L 03/06/18 01:24 03/06/18 04:00 03/06/18 07:28 Temperature 97.5 F L 97.8 F 97.7 F Pulse Rate 85 85 77 Respiratory Rate 16 16 18 Blood Pressure 138/108 H 129/96 H 128/80 Pulse Oximetry 99 98 97 Intake & Output 03/05/18 03/06/18 03/06/18 18:59 06:59 18:59 Weight 86.183 kg <Rafael Davis - 03/06/18 09:25> Narrative: GENERAL: Well-nourished, well-developed -[place] female sitting in hospital bed watching television with her significant other in no acute distress. SKIN: Warm and dry. No rash. HEENT: Atraumatic, normocephalic with extraocular motions intact. No rhinorrhea. No visible lymphadenopathy or jugulovenous distension appreciated. CARDIOVASCULAR: Regular rate and rhythm without obvious murmurs, gallops, or rubs. 2+ pulses in all four extremities. LifeVest in place. RESPIRATORY: Soft, fine crackles bilaterally at the bases, otherwise clear to auscultation bilaterally. No increased work of breathing. No cough during exam. GASTROINTESTINAL: Abdomen soft, non-tender, nondistended with positive bowel sounds. No masses appreciated. MUSCULOSKELETAL: No cyanosis. 2+ edema throughout the lower extremities appreciated to the iliac crests. Patient tender to palpation along the lower extremities. Difficult to palpate PT/DP pulses secondary to edema. Appropriate capillary refill. Normal range of motion intact. NEURO/PSYCH: Afocal. Awake, alert, and oriented x3. Normal speech and judgement. <Rafael Davis - 03/06/18 09:25> Assessment and Plan - Assessment (1) Acute exacerbation of CHF (congestive heart failure) Code(s): I50.9 - Heart failure, unspecified Status: Acute (2) CKD (chronic kidney disease) Code(s): N18.9 - Chronic kidney disease, unspecified Status: Chronic (3) History of CVA (cerebrovascular accident) Code(s): Z86.73 - Personal history of transient ischemic attack (TIA), and cerebral infarction without residual deficits Status: Acute (4) Hypertension Code(s): I10 - Essential (primary) hypertension Status: Chronic (5) Nutrition, metabolism, and development symptoms Code(s): R63.8 - Other symptoms and signs concerning food and fluid intake Status: Acute <Brannon Willard - 03/06/18 10:27> (1) Acute exacerbation of CHF (congestive heart failure) Code(s): I50.9 - Heart failure, unspecified Status: Acute Plan: Patient admitted for acute on chronic CHF exacerbation. -EKG: Sinus rhythm with noted PVCs, no significant ST changes. (Per medical team read) -CXR: Possible b/l costophrenic angle blunting due to effusion -BNP: >5000 -Most recent ECHO from 02/08 showing EF in the range of 20-25%, pulmonary arterial pressure of 77, mod to severe MVR, severe TVR, av sclerosis, severely dilated LV. -Telemetry with LifeVest in place -Low-salt diet less than 2 g per day. Fluid restrict to 1.5 L per day. -Strict Is and Os. Daily weights. Supplemental oxygen and monitor on pulse ox. -Encourage patient to sit up in bed with legs below chest or in chair with legs hanging down. -Consult placed to nephrology given patient needing diuresis and with acute on chronic kidney disease -Consult cardiology, patient known to Dr. Mae Medications: -Pt given Lasix 80 mg IV in ED -Continue with 40 mg IV bid tomorrow -Continue KCl at 20 mEq po daily -Coreg held admission secondary to patient request -Monitor I/Os and daily weights (2) CKD (chronic kidney disease) Code(s): N18.9 - Chronic kidney disease, unspecified Status: Chronic Plan: -Cr 1.87 on admission, baseline ~1.4 per chart review -Likely due to low renal perfusion pressure due to CHF -Improved CR to 1.69 with diuresis on 03/06/18 -Consult nephrology as patient with CKD on diuresis (3) History of CVA (cerebrovascular accident) Code(s): Z86.73 - Personal history of transient ischemic attack (TIA), and cerebral infarction without residual deficits Status: Acute Plan: Patient with history of CVA -Patient currently anticoagulated on Coumadin. Per patient report dosing recently altered with 2 mg every Monday, , Monday, and Monday with 4 mg on Monday and . -INR elevated to 3.8 -Hold home Coumadin and monitor INR at this time (4) Hypertension Code(s): I10 - Essential (primary) hypertension Status: Chronic Plan: -Patient has h/o HTN per chart review, vitals wnl on admission -Continue to monitor -Medications as above -Clonidine 0.1 mg every 6 hours as needed for blood pressure greater than 180/ 110 (5) Nutrition, metabolism, and development symptoms Code(s): R63.8 - Other symptoms and signs concerning food and fluid intake Status: Acute Plan: -Fluids: per PO, fluid restriction to 1800 mL daily -Electrolytes: continue to monitor and replete as needed -Nutrition: Heart healthy diet, sodium restriction to 2gm daily -DVT ppx: Patient on warfarin, continue home dose -GI ppx: not indicated at this time -PPx: Tessalon Perles as needed for cough, Zofran as needed for nausea/vomiting , Tylenol as needed for fever/pain, constipation protocol, clonidine as needed for blood pressure greater than 180/110 -Incentive spirometry <Rafael Davis - 03/06/18 09:04> - Attending Attestation Patient examined independently and case discussed with resident physician I have read the above note and agree with the assessment/plan as discussed with me I was involved in all medical decision making for this patient Brannon Willard MD <Brannon Willard - 03/06/18 10:27>
[2018-03-06] MEDS: Senna/Docusate Sodium 8.6/50 MG Tablet PO SCH ×2 (10:00→22:18)
[2018-03-06] MEDS ORDERED: Potassium Chloride 10 MEQ ER Capsule PO ONE (14:00)
--- NOTE | 2018-03-06 15:51 | P.CONNP ---
<Isela Shelley - Last Filed: 03/06/18 16:22> History of Present Illness Service: Nephrlogy Consult date: 03/06/18 Reason for Consult: ARIANA Primary Care Provider: Melissa Monreal MD, R3 Chief Complaint: Lower extremity edema History of Present Illness: This is a very pleasant 67 y/o female with advanced CHF, who has a life vest x 45 days as of today. She came to ER for evaluation of lower extremity edema and shortness of breath. Her creatinine normally runs 0.7. normal. On arrival she is in ARIANA with creatinine 1.8 that has improved to 1.6 today. We were consulted for management. Her weight has increased 30 pounds in past few weeks. She is fatigued but not in distress. We were consulted for management. Her Lasix was 20 mg BID prior to admission. Metolazone was to be added outpatient. She was in the process of referral to cardiac transplant center for possible surgical consideration or possibly LVAD. She is a full code. Review of Systems All other systems reviewed negative except as stated in HPI Cardiovascular: Reports foot swelling, Reports generalized swelling, Denies chest pain Respiratory: Reports shortness of breath, Reports shortness of breath with activity Gastrointestinal: Denies abdominal pain PMFSH - History History Provided By: Patient - Medical History Medical History: Medical History (Last Reviewed 03/06/18 @ 07:50 by Cristian Paul) Bronchitis CHF (congestive heart failure) CVA (cerebral vascular accident) Coronary artery disease Fibromyalgia Hypertension Myocardial infarction - Family History Family History: Family History (Last Reviewed 02/07/18 @ 12:15 by Cristian Paul) Father CAD (coronary artery disease) Myocardial infarction Brother CAD (coronary artery disease) Myocardial infarction Other Malignant neoplasm - Tobacco History Second Hand Smoke Exposure: No Tobacco Use In Past 30 Days: No Smoking Status: Never smoker - Alcohol History How Often Do You Have a Drink Containing Alcohol: Never - Substance Use History Substance History: No History of Abuse - Travel History Recent Travel in the [place] Within the Last 8 Weeks: No Recent Travel Out of the Country Within the Last 8 Weeks: No - Immunization History Tetanus Immunization: Unsure Hx Influenza Vaccine This Season: No Medications and Allergies Allergies Allergy/AdvReac Type Severity Reaction Status Date / Time iodine Allergy Severe sneezing, Verified 03/05/18 21:38 chest tightness potassium iodide Allergy Severe sneezing, Verified 03/05/18 21:38 chest tightness povidone-iodine Allergy Severe sneezing, Verified 03/05/18 21:38 chest tightness sodium iodide Allergy Severe sneezing, Verified 03/05/18 21:38 chest tightness sodium iodide Allergy Severe sneezing, Verified 03/05/18 21:38 chest tightness sulfamethoxazole Allergy Intermediate abdominal Verified 03/05/18 21:38 pain trimethoprim Allergy Intermediate abdominal Verified 03/05/18 21:38 pain hydralazine Allergy Unknown Edema Verified 03/05/18 21:38 Statins Allergy Unknown Hives Uncoded 03/05/18 18:25 Home Medications Medication Instructions Recorded Confirmed Type esomeprazole magnesium 40 mg PO DAILY 02/05/18 03/05/18 History ondansetron 4 mg PO BID PRN 02/05/18 03/05/18 History warfarin 1 mg PO Q OTHER DAY 03/05/18 03/05/18 History warfarin 2 mg PO Q OTHER DAY 03/05/18 03/05/18 History Active Medications: Active Medications Acetaminophen (Tylenol) 650 mg PO Q4H PRN PRN Reason: Temp > 100.4, Pain 1-10, [place] Al Hydroxide/Mg Hydroxide (Milk Of Magnesia Liq) 30 ml PO Q12H PRN PRN Reason: Mild Constipation Benzonatate (Tessalon Perles) 200 mg PO Q8H PRN PRN Reason: COUGH Bisacodyl (Dulcolax Supp) 10 mg RECTAL DAILY PRN PRN Reason: SEVERE CONSITIPATION Carvedilol (Coreg) 25 mg PO BID [facility] Clonidine HCl (Catapres) 0.1 mg PO Q6H PRN PRN Reason: BP >180/110 Furosemide (Lasix Inj) 40 mg IV.PUSH BID@0900,1800 [facility] Last Admin: 03/06/18 10:00 Dose: 40 mg Lactulose (Lactulose Liq) 30 ml PO DAILY PRN PRN Reason: SEVERE CONSITIPATION Potassium Chloride (K-Dur) 20 meq PO DAILY [facility] Last Admin: 03/06/18 10:00 Dose: 20 meq Senna/Docusate Sodium (Aleyda-Colace) 1 tab PO BID [facility] Last Admin: 03/06/18 10:00 Dose: Not Given Spironolactone (Aldactone) 50 mg PO DAILY [facility] Warfarin Sodium (Coumadin) 4 mg PO TUTH@1600 [facility] Warfarin Sodium (Coumadin) 2 mg PO SUMOWEFRSA@1600 [facility] Exam Vital signs: Vital Signs 03/05/18 18:44 03/05/18 19:42 03/05/18 23:07 Temperature 97.9 F Pulse Rate 100 H 87 Respiratory Rate 15 18 Blood Pressure 137/102 H 136/102 H Pulse Oximetry 95 100 94 L 03/05/18 23:50 03/06/18 01:24 03/06/18 04:00 Temperature 97.5 F L 97.8 F Pulse Rate 85 85 Respiratory Rate 18 16 16 Blood Pressure 138/108 H 129/96 H Pulse Oximetry 99 98 03/06/18 07:28 03/06/18 08:31 03/06/18 11:54 Temperature 97.7 F 97.5 F L Pulse Rate 77 85 88 Respiratory Rate 18 16 Blood Pressure 128/80 129/108 H Pulse Oximetry 97 97 Intake & Output 03/05/18 03/06/18 03/06/18 18:59 06:59 18:59 Intake Total 598 / 598 Output Total 200 / 200 Balance 398 / 398 Weight 86.183 kg 89 kg Intake: Oral 598 / 598 Output: Urine 200 / 200 Other: # Voids 1 - Constitutional no acute distress, average body habitus, cooperative - Routine HEENT Exam Head: Present: normocephalic - Routine Neck Exam Present: supple, full ROM. Absent: JVD - Routine Respiratory Exam Present: CTA bilaterally. Absent: accessory muscle use - Routine Cardiovascular Exam Present: RRR, S1, S2 Comments: Life vest in place - Routine Abdominal Exam Present: soft, normoactive bowel sounds - Routine Extremities Exam Present: edema, full ROM, pulses intact, tenderness - Routine Skin Exam Present: intact, dry, warm - Routine Neurological Exam Present: alert, oriented X3, CN II-XII intact Results - Lab Results 03/06/18 05:55 03/06/18 05:55 Most recent lab results Calcium 8.2 mg/dL (8.5-10.1) L 03/06/18 05:55 - Image Kidney/bladder ultrasound: other (not required) Assessment and Plan - Assessment (1) ARIANA (acute kidney injury) Code(s): N17.9 - Acute kidney failure, unspecified Status: Acute Plan: Her baseline creatinine is 0.7. ARIANA most likely due to increased renal vein pressure from CHF exacerbation. Renal function has improved slightly. Continue diuresis with Lasix 40 IV BID. Spironolactone added. Continue to monitor renal function. Obtain UA Monitor urine output. Avoid nephrotoxins. Stop daily KCL supplement given ARIANA and addition of Spironolactone. Also on ARB. (2) Acute exacerbation of congestive heart failure Code(s): I50.9 - Heart failure, unspecified Status: Acute Plan: Cardiology consulted Diuresis as above. Continue Coreg. Life vest in place. Monitor fluid status, daily weight, etc. Low Na diet ordered. (3) Hypertension Code(s): I10 - Essential (primary) hypertension Status: Chronic Plan: Continue medications as ordered <Pedro López - Last Filed: 03/06/18 18:02> History of Present Illness Primary Care Provider: Melissa Monreal MD, R3 [facility] - Medical History Medical History: Medical History (Last Reviewed 03/06/18 @ 07:50 by Cristian Paul) Bronchitis CHF (congestive heart failure) CVA (cerebral vascular accident) Coronary artery disease Fibromyalgia Hypertension Myocardial infarction - Family History Family History: Family History (Last Reviewed 02/07/18 @ 12:15 by Cristian Paul) Father CAD (coronary artery disease) Myocardial infarction Brother CAD (coronary artery disease) Myocardial infarction Other Malignant neoplasm Medications and Allergies Active Medications: Active Medications Acetaminophen (Tylenol) 650 mg PO Q4H PRN PRN Reason: Temp > 100.4, Pain 1-10, [place] Al Hydroxide/Mg Hydroxide (Milk Of Magnesia Liq) 30 ml PO Q12H PRN PRN Reason: Mild Constipation Benzonatate (Tessalon Perles) 200 mg PO Q8H PRN PRN Reason: COUGH Bisacodyl (Dulcolax Supp) 10 mg RECTAL DAILY PRN PRN Reason: SEVERE CONSITIPATION Carvedilol (Coreg) 25 mg PO BID [facility] Clonidine HCl (Catapres) 0.1 mg PO Q6H PRN PRN Reason: BP >180/110 Furosemide (Lasix Inj) 40 mg IV.PUSH BID@0900,1800 [facility] Last Admin: 03/06/18 10:00 Dose: 40 mg Lactulose (Lactulose Liq) 30 ml PO DAILY PRN PRN Reason: SEVERE CONSITIPATION Losartan Potassium (Cozaar) 25 mg PO DAILY [facility] Potassium Chloride (K-Dur) 20 meq PO DAILY [facility] Last Admin: 03/06/18 10:00 Dose: 20 meq Senna/Docusate Sodium (Aleyda-Colace) 1 tab PO BID [facility] Last Admin: 03/06/18 10:00 Dose: Not Given Spironolactone (Aldactone) 50 mg PO DAILY [facility] Warfarin Sodium (Coumadin) 4 mg PO TUTH@1600 [facility] Warfarin Sodium (Coumadin) 2 mg PO SUMOWEFRSA@1600 [facility] Exam Vital signs: Vital Signs 03/05/18 18:44 03/05/18 19:42 03/05/18 23:07 Temperature 97.9 F Pulse Rate 100 H 87 Respiratory Rate 15 18 Blood Pressure 137/102 H 136/102 H Pulse Oximetry 95 100 94 L 03/05/18 23:50 03/06/18 01:24 03/06/18 04:00 Temperature 97.5 F L 97.8 F Pulse Rate 85 85 Respiratory Rate 18 16 16 Blood Pressure 138/108 H 129/96 H Pulse Oximetry 99 98 03/06/18 07:28 03/06/18 08:31 03/06/18 11:54 Temperature 97.7 F 97.5 F L Pulse Rate 77 85 88 Respiratory Rate 18 16 Blood Pressure 128/80 129/108 H Pulse Oximetry 97 97 03/06/18 16:00 03/06/18 17:43 Temperature 98.2 F Pulse Rate 91 H Respiratory Rate 20 Blood Pressure 144/89 H Pulse Oximetry 99 97 Intake & Output 03/05/18 03/06/18 03/06/18 18:59 06:59 18:59 Intake Total 838 / 838 Output Total 200 / 200 Balance 638 / 638 Weight 86.183 kg 89 kg Intake: Oral 838 / 838 Output: Urine 200 / 200 Other: # Voids 1 Results - Lab Results 03/06/18 05:55 03/06/18 05:55 Most recent lab results Calcium 8.2 mg/dL (8.5-10.1) L 03/06/18 05:55 Assessment and Plan - Assessment (1) ARIANA (acute kidney injury) Code(s): N17.9 - Acute kidney failure, unspecified Status: Acute (2) Acute exacerbation of congestive heart failure Code(s): I50.9 - Heart failure, unspecified Status: Acute (3) Hypertension Code(s): I10 - Essential (primary) hypertension Status: Chronic - Attending Attestation patient was seen and examined. Agree with above assessment and plan. Added Spironolactone. Escalate diuretic therapy. Discussed with Dr. Mae. Patient presents with cardiorenal syndrome. <Isela Shelley - Last Filed: 03/06/18 16:22> (2) Acute exacerbation of congestive heart failure Qualifiers: Heart failure type: unspecified Qualified Code(s): I50.9 - Heart failure, unspecified <Pedro López - Last Filed: 03/06/18 18:02> (2) Acute exacerbation of congestive heart failure Qualifiers: Heart failure type: unspecified Qualified Code(s): I50.9 - Heart failure, unspecified
--- NOTE | 2018-03-06 16:21 | P.CONCA ---
History of Present Illness Service: Cardiology Consult date: 03/06/18 Requesting Physician: Remington Stone Reason for Consult: CHF exacerbation and acute kidney injury Primary Care Provider: Melissa Monreal MD, R3 Chief Complaint: Lower extremity edema History of Present Illness: This is a very pleasant 67-year-old -[place] female known to Dr. Mae. She has a history of congestive heart failure, cardiomyopathy, mitral regurgitation, pulmonary hypertension, pulmonary embolism, CVA, hypertension and chronic kidney disease. She was referred to Dr. Cardozo congestive heart transplant slot technician in [place] on February 28, 2018. She states that she has an appointment on April 04. She states that over the last few days she has noticed an increase in lower extremity edema while compliant on all her medications. She also states that she has a cough when supine. She states that she has been compliant with all her medications and following a heart healthy and low-sodium diet along with fluid restrictions. Currently she denies any chest pain, pressure, palpitations or dizziness. She does complain of increased edema in the lower extremities and shortness of breath with laying supine or activity. Review of Systems All other systems reviewed negative except as stated in HPI [facility] - History History Provided By: Patient - Medical History Medical History: Medical History (Last Reviewed 03/06/18 @ 07:50 by Cristian Paul) Bronchitis CHF (congestive heart failure) CVA (cerebral vascular accident) Coronary artery disease Fibromyalgia Hypertension Myocardial infarction - Family History Family History: Family History (Last Reviewed 02/07/18 @ 12:15 by Cristian Paul) Father CAD (coronary artery disease) Myocardial infarction Brother CAD (coronary artery disease) Myocardial infarction Other Malignant neoplasm - Tobacco History Second Hand Smoke Exposure: No Tobacco Use In Past 30 Days: No Smoking Status: Never smoker - Alcohol History How Often Do You Have a Drink Containing Alcohol: Never - Substance Use History Substance History: No History of Abuse - Travel History Recent Travel in the [place] Within the Last 8 Weeks: No Recent Travel Out of the Country Within the Last 8 Weeks: No - Immunization History Tetanus Immunization: Unsure Hx Influenza Vaccine This Season: No Medications and Allergies Allergies Allergy/AdvReac Type Severity Reaction Status Date / Time iodine Allergy Severe sneezing, Verified 03/05/18 21:38 chest tightness potassium iodide Allergy Severe sneezing, Verified 03/05/18 21:38 chest tightness povidone-iodine Allergy Severe sneezing, Verified 03/05/18 21:38 chest tightness sodium iodide Allergy Severe sneezing, Verified 03/05/18 21:38 chest tightness sodium iodide Allergy Severe sneezing, Verified 03/05/18 21:38 chest tightness sulfamethoxazole Allergy Intermediate abdominal Verified 03/05/18 21:38 pain trimethoprim Allergy Intermediate abdominal Verified 03/05/18 21:38 pain hydralazine Allergy Unknown Edema Verified 03/05/18 21:38 Statins Allergy Unknown Hives Uncoded 03/05/18 18:25 Home Medications Medication Instructions Recorded Confirmed Type esomeprazole magnesium 40 mg PO DAILY 02/05/18 03/05/18 History ondansetron 4 mg PO BID PRN 02/05/18 03/05/18 History warfarin 1 mg PO Q OTHER DAY 03/05/18 03/05/18 History warfarin 2 mg PO Q OTHER DAY 03/05/18 03/05/18 History Active Medications: Active Medications Acetaminophen (Tylenol) 650 mg PO Q4H PRN PRN Reason: Temp > 100.4, Pain 1-10, [place] Al Hydroxide/Mg Hydroxide (Milk Of Magnesia Liq) 30 ml PO Q12H PRN PRN Reason: Mild Constipation Benzonatate (Tessalon Perles) 200 mg PO Q8H PRN PRN Reason: COUGH Bisacodyl (Dulcolax Supp) 10 mg RECTAL DAILY PRN PRN Reason: SEVERE CONSITIPATION Carvedilol (Coreg) 25 mg PO BID [facility] Clonidine HCl (Catapres) 0.1 mg PO Q6H PRN PRN Reason: BP >180/110 Furosemide (Lasix Inj) 40 mg IV.PUSH BID@0900,1800 [facility] Last Admin: 03/06/18 10:00 Dose: 40 mg Lactulose (Lactulose Liq) 30 ml PO DAILY PRN PRN Reason: SEVERE CONSITIPATION Potassium Chloride (K-Dur) 20 meq PO DAILY [facility] Last Admin: 03/06/18 10:00 Dose: 20 meq Senna/Docusate Sodium (Aleyda-Colace) 1 tab PO BID [facility] Last Admin: 03/06/18 10:00 Dose: Not Given Spironolactone (Aldactone) 50 mg PO DAILY [facility] Warfarin Sodium (Coumadin) 4 mg PO TUTH@1600 [facility] Warfarin Sodium (Coumadin) 2 mg PO SUMOWEFRSA@1600 [facility] Exam Vital signs: Vital Signs 03/05/18 18:44 03/05/18 19:42 03/05/18 23:07 Temperature 97.9 F Pulse Rate 100 H 87 Respiratory Rate 15 18 Blood Pressure 137/102 H 136/102 H Pulse Oximetry 95 100 94 L 03/05/18 23:50 03/06/18 01:24 03/06/18 04:00 Temperature 97.5 F L 97.8 F Pulse Rate 85 85 Respiratory Rate 18 16 16 Blood Pressure 138/108 H 129/96 H Pulse Oximetry 99 98 03/06/18 07:28 03/06/18 08:31 03/06/18 11:54 Temperature 97.7 F 97.5 F L Pulse Rate 77 85 88 Respiratory Rate 18 16 Blood Pressure 128/80 129/108 H Pulse Oximetry 97 97 03/06/18 16:00 Temperature Pulse Rate 91 H Respiratory Rate 20 Blood Pressure 144/89 H Pulse Oximetry 99 Intake & Output 03/05/18 03/06/18 03/06/18 18:59 06:59 18:59 Intake Total 598 / 598 Output Total 200 / 200 Balance 398 / 398 Weight 86.183 kg 89 kg Intake: Oral 598 / 598 Output: Urine 200 / 200 Other: # Voids 1 Results 03/06/18 05:55 03/06/18 05:55 Cardiac Enzymes 03/05/18 03/05/18 Range/Units 18:45 18:45 AST 18 (15-37) U/L Troponin I 0.04 (0.02-0.05) ng/mL B-Natriuretic Peptide Greater than 5000 H (0-100) pg/mL Coagulation 03/05/18 03/05/18 03/06/18 Range/Units 18:45 19:30 05:55 PT 36.1 H 37.9 H (9.8-11.6) sec APTT 32.7 H (24.3-30.1) sec B-Natriuretic Peptide Greater than 5000 H (0-100) pg/mL CBC 03/05/18 03/06/18 Range/Units 18:45 05:55 WBC 5.4 4.9 (4.0-11.0) th/mm3 RBC 4.77 4.47 (4.00-5.30) mil/mm3 Hgb 11.6 10.8 L (11.6-15.3) gm/dL Hct 36.3 33.6 L (35.0-46.0) % Plt Count 280 263 (150-450) th/mm3 Neut # (Auto) 3.2 2.9 (1.8-7.7) th/mm3 Lymph # (Auto) 1.3 1.1 (1.0-4.8) th/mm3 [place] # (Auto) 0.7 0.8 (0.0-0.9) th/mm3 Eos # (Auto) 0.1 0.1 (0.0-0.4) th/mm3 Baso # (Auto) 0.0 0.0 (0.0-0.2) th/mm3 Comprehensive Metabolic Panel 03/05/18 03/06/18 Range/Units 18:45 05:55 Sodium 139 140 (136-145) meq/L Potassium 3.6 3.4 L (3.5-5.1) meq/L Chloride 102 103 (98-107) meq/L Carbon Dioxide 24.1 23.3 (21.0-32.0) meq/L BUN 34 H 34 H (7-18) mg/dL Creatinine 1.87 H 1.69 H (0.50-1.00) mg/dL Calcium 8.4 L 8.2 L (8.5-10.1) mg/dL AST 18 (15-37) U/L ALT 17 (10-53) U/L Alkaline Phosphatase 55 (45-117) U/L Total Protein 6.0 L (6.4-8.2) g/dL Albumin 2.8 L (3.4-5.0) g/dL Intake and Output 03/06/18 03/06/18 03/06/18 06:59 14:59 22:59 Intake Total 598 / 598 Output Total 200 / 200 Balance 398 / 398 Intake: Oral 598 / 598 Output: Urine 200 / 200 Other: # Voids 1 Weight 89 kg Patient Weight 03/07/18 06:59 Weight 89 kg Assessment and Plan - Assessment (1) Acute exacerbation of CHF (congestive heart failure) Code(s): I50.9 - Heart failure, unspecified Status: Acute (2) Fluid overload Code(s): E87.70 - Fluid overload, unspecified Status: Acute (3) CKD (chronic kidney disease) Code(s): N18.9 - Chronic kidney disease, unspecified Status: Chronic (4) Hypertension Code(s): I10 - Essential (primary) hypertension Status: Chronic (5) Acute worsening of stage 3 chronic kidney disease Code(s): N18.3 - Chronic kidney disease, stage 3 (moderate) Status: Acute (6) Acute exacerbation of congestive heart failure Code(s): I50.9 - Heart failure, unspecified Status: Acute (7) Supratherapeutic INR Code(s): R79.1 - Abnormal coagulation profile Status: Acute - Plan We will start her on low-dose losartan 25 mg daily starting today. Continue with current diuresis. Continue with cardiac treatment plan and adjust as needed. Consult Dr. López, her clinical support associate. Will follow patient during hospitalization and in office post discharge. The patient was referred to CHF clinic at [facility] where she will be seen as outpatient after discharge. The patient was seen and evaluated by Dr. Mae who participated in care, management and decision-making. - Attending Attestation Patient seen and examined. I reviewed and agree with the evaluation and plan as presented. Continue and titrate tx for CHF. Nephrology evaluation. F/u at CHF clinic in [place] as outpatient. (2) Fluid overload Qualifiers: Hypervolemia type: unspecified Qualified Code(s): E87.70 - Fluid overload, unspecified (6) Acute exacerbation of congestive heart failure Qualifiers: Heart failure type: unspecified Qualified Code(s): I50.9 - Heart failure, unspecified
[2018-03-06] MEDS: Spironolactone 50 MG Tablet PO SCH (18:13)
--- NOTE | 2018-03-06 20:03 | ECG ---
Date Performed: 03/05/2018 Time Performed: 18:48:04 PTAGE: 67 years EKG: Sinus rhythm WITH FREQUENT VENTRICULAR PREMATURE COMPLEXES NONSPECIFIC T-WAVE ABNORMALITY ABNORMAL ECG PREVIOUS TRACING : 02/05/2018 15.30 Since the previous tracing, no significant change noted DOCTOR: Dawood Calixto Interpretating Date/Time 03/06/2018 19:58:23
[2018-03-06] MEDS: Carvedilol 12.5 MG Tablet PO SCH (21:58)
[2018-03-07] MEDS: Senna/Docusate Sodium 8.6/50 MG Tablet PO SCH ×2 (08:57→22:42)
[2018-03-07] MEDS: Carvedilol 12.5 MG Tablet PO SCH ×2 (09:31→22:41)
[2018-03-07] MEDS: Spironolactone 50 MG Tablet PO SCH ×2 (09:32→13:00)
[2018-03-07 09:35] LABS: Hematocrit 30.6 % (35.0-46.0); Hemoglobin 10.2 gm/dL (11.6-15.3); Mean Corpuscular HGB Conc 33.4 % (32.0-36.0); Mean Corpuscular Hemoglobin 25.8 pg (27.0-34.0); Mean Corpuscular Volume 77.4 fL (80.0-100.0); Mean Platelet Volume 9.7 fL (7.0-11.0); Platelet Count 224 th/mm3 (150-450); Red Blood Count 3.95 mil/mm3 (4.00-5.30); Red Cell Distribution Width 19.6 % (11.6-17.2)
[2018-03-07 09:40] LABS: INR 2.8 Ratio; Prothrombin Time 28.3 sec (9.8-11.6)
[2018-03-07 10:14] LABS: Calcium 8.4 mg/dL (8.5-10.1); Carbon Dioxide 24.6 meq/L (21.0-32.0); Potassium 3.9 meq/L (3.5-5.1)
--- NOTE | 2018-03-07 10:47 | P.PNFP ---
Subjective Interval history: Patient seen and examined this morning. No acute events overnight per staff. Patient states that she feels much improved since her admission and feels that her lower extremity edema is back to her baseline. She states at home that her legs are swollen up to her hips at baseline, however the reason she came to the hospital was pain due to the swelling which has resolved. She continues to endorse a dry cough, however denies any shortness of breath or increased work of breathing. Overnight she does report that she had some anxiety when taking her Lasix, that shortly resolved after the nursing staff confirmed her vital signs were normal. Patient states that she discussed her medical management with nephrology and cardiology yesterday. However she is slightly upset that she was prescribed spironolactone and losartan. She reports previous reaction to spironolactone with nausea and vomiting refused her dosing this morning. Regarding her losartan, she feels that her blood pressure has been fine and " she does not need another blood pressure medication." Patient feels she is improved and is comfortable with possible discharge tomorrow pending clinical course. Otherwise she has no acute complaints denies a complete review systems including but not limited to any fevers, chills, chest pain, abdominal pain, or calf tenderness. <Rafael Davis H - 03/07/18 10:47> Results - Labs Result diagrams: 03/07/18 08:58 03/07/18 08:58 <Brannon Willard - 03/07/18 13:22> Abnormal lab results 03/07/18 03/07/18 03/07/18 Range/Units 08:58 08:58 08:58 RBC 3.95 L (4.00-5.30) mil/mm3 Hgb 10.2 L (11.6-15.3) gm/dL Hct 30.6 L (35.0-46.0) % MCV 77.4 L (80.0-100.0) fL MCH 25.8 L (27.0-34.0) pg RDW 19.6 H (11.6-17.2) % PT 28.3 H (9.8-11.6) sec BUN 38 H (7-18) mg/dL Creatinine 1.86 H (0.50-1.00) mg/dL Estimated GFR 33 L (>89) mL/min Calcium 8.4 L (8.5-10.1) mg/dL Short CBC 03/07/18 Range/Units 08:58 WBC 4.0 (4.0-11.0) th/mm3 Hgb 10.2 L (11.6-15.3) gm/dL Hct 30.6 L (35.0-46.0) % Plt Count 224 (150-450) th/mm3 [facility] 03/07/18 08:58 Sodium 140 Potassium 3.9 Chloride 105 Carbon Dioxide 24.6 BUN 38 H Creatinine 1.86 H Calcium 8.4 L <Brannon Willard - 03/07/18 13:22> Abnormal lab results 03/07/18 03/07/18 03/07/18 Range/Units 08:58 08:58 08:58 RBC 3.95 L (4.00-5.30) mil/mm3 Hgb 10.2 L (11.6-15.3) gm/dL Hct 30.6 L (35.0-46.0) % MCV 77.4 L (80.0-100.0) fL MCH 25.8 L (27.0-34.0) pg RDW 19.6 H (11.6-17.2) % PT 28.3 H (9.8-11.6) sec BUN 38 H (7-18) mg/dL Creatinine 1.86 H (0.50-1.00) mg/dL Estimated GFR 33 L (>89) mL/min Calcium 8.4 L (8.5-10.1) mg/dL Short CBC 03/07/18 Range/Units 08:58 WBC 4.0 (4.0-11.0) th/mm3 Hgb 10.2 L (11.6-15.3) gm/dL Hct 30.6 L (35.0-46.0) % Plt Count 224 (150-450) th/mm3 [facility] 03/07/18 08:58 Sodium 140 Potassium 3.9 Chloride 105 Carbon Dioxide 24.6 BUN 38 H Creatinine 1.86 H Calcium 8.4 L <Rafael Davis - 03/07/18 10:47> Physical Exam Vital signs: Vital Signs 03/06/18 16:00 03/06/18 17:43 03/06/18 19:40 Temperature 98.2 F Pulse Rate 91 H Respiratory Rate 20 Blood Pressure 144/89 H Pulse Oximetry 99 97 96 03/06/18 19:43 03/06/18 20:00 03/07/18 00:00 Temperature 96.8 F L 97.8 F Pulse Rate 94 H 107 H 91 H Respiratory Rate 18 16 Blood Pressure 142/117 H 130/87 Pulse Oximetry 100 93 L 03/07/18 04:00 03/07/18 08:00 03/07/18 08:10 Temperature 97.5 F L 97.7 F Pulse Rate 76 73 74 Respiratory Rate 16 16 Blood Pressure 129/92 H 125/91 H Pulse Oximetry 97 97 03/07/18 11:30 Temperature 97.6 F Pulse Rate 74 Respiratory Rate 16 Blood Pressure 116/88 Pulse Oximetry 97 Intake & Output 03/06/18 03/07/18 03/07/18 18:59 06:59 18:59 Intake Total 838 / 838 478 / 478 Output Total 350 / 350 Balance 488 / 488 478 / 478 Weight 89 kg 87 kg Intake: Oral 838 / 838 478 / 478 Output: Urine 350 / 350 Other: # Voids 1 Date of Last Bowel Movement 03/06/18 03/06/18 03/07/18 <Sudheer,Brannon - 03/07/18 13:22> Vital Signs 03/06/18 11:54 03/06/18 16:00 03/06/18 17:43 Temperature 97.5 F L 98.2 F Pulse Rate 88 91 H Respiratory Rate 16 20 Blood Pressure 129/108 H 144/89 H Pulse Oximetry 97 99 97 03/06/18 19:40 03/06/18 19:43 03/06/18 20:00 Temperature 96.8 F L Pulse Rate 94 H 107 H Respiratory Rate 18 Blood Pressure 142/117 H Pulse Oximetry 96 100 03/07/18 00:00 03/07/18 04:00 03/07/18 08:00 Temperature 97.8 F 97.5 F L 97.7 F Pulse Rate 91 H 76 73 Respiratory Rate 16 16 16 Blood Pressure 130/87 129/92 H 125/91 H Pulse Oximetry 93 L 97 97 Intake & Output 03/06/18 03/07/18 03/07/18 18:59 06:59 18:59 Intake Total 838 / 838 478 / 478 Output Total 350 / 350 Balance 488 / 488 478 / 478 Weight 89 kg 87 kg Intake: Oral 838 / 838 478 / 478 Output: Urine 350 / 350 Other: # Voids 1 Date of Last Bowel Movement 03/06/18 03/06/18 <Rafael Davis - 03/07/18 10:47> Narrative: GENERAL: Well-nourished, well-developed -[place] female sitting in hospital bed watching television in no acute distress. SKIN: Warm and dry. No rash. HEENT: Atraumatic, normocephalic with extraocular motions intact. No rhinorrhea. No visible lymphadenopathy or jugulovenous distension appreciated. CARDIOVASCULAR: Regular rate and rhythm without obvious murmurs, gallops, or rubs. 2+ pulses in all four extremities. LifeVest in place. RESPIRATORY: Soft, fine crackles bilaterally at the bases, otherwise clear to auscultation bilaterally. No increased work of breathing. No cough during exam. GASTROINTESTINAL: Abdomen soft, non-tender, nondistended with positive bowel sounds. No masses appreciated. MUSCULOSKELETAL: No cyanosis. 2+ edema throughout the lower extremities appreciated to the iliac crests. Patient nontender to palpation along the lower extremities which is an improvement from previous exams. Difficult to palpate PT/DP pulses secondary to edema. Appropriate capillary refill. Normal range of motion intact. NEURO/PSYCH: Afocal. Awake, alert, and oriented x3. Normal speech and judgement. <Rafael Davis - 03/07/18 10:47> Assessment and Plan - Assessment (1) Acute exacerbation of CHF (congestive heart failure) Code(s): I50.9 - Heart failure, unspecified Status: Acute (2) Acute kidney injury superimposed on CKD Code(s): N17.9 - Acute kidney failure, unspecified; N18.9 - Chronic kidney disease, unspecified Status: Acute (3) History of CVA (cerebrovascular accident) Code(s): Z86.73 - Personal history of transient ischemic attack (TIA), and cerebral infarction without residual deficits Status: Acute (4) Hypertension Code(s): I10 - Essential (primary) hypertension Status: Chronic (5) Nutrition, metabolism, and development symptoms Code(s): R63.8 - Other symptoms and signs concerning food and fluid intake Status: Acute <Brannon Willard - 03/07/18 13:22> (1) Acute exacerbation of CHF (congestive heart failure) Code(s): I50.9 - Heart failure, unspecified Status: Acute Plan: Patient admitted for acute on chronic CHF exacerbation. -EKG: Sinus rhythm with noted PVCs, no significant ST changes. (Per medical team read) -CXR: Possible b/l costophrenic angle blunting due to effusion -BNP: >5000 -Most recent ECHO from 02/08 showing EF in the range of 20-25%, pulmonary arterial pressure of 77, mod to severe MVR, severe TVR, av sclerosis, severely dilated LV. -Telemetry with LifeVest in place -Low-salt diet less than 2 g per day. Fluid restrict to 1.5 L per day. -Strict Is and Os. Daily weights. Supplemental oxygen and monitor on pulse ox. -Encourage patient to sit up in bed with legs below chest or in chair with legs hanging down. -Consult placed to nephrology given patient needing diuresis and with acute on chronic kidney disease -Monitor I/Os and daily weights -Consult cardiology, patient known to Dr. Mae Medications: -Pt given Lasix 80 mg IV in ED -Continue with 40 mg IV bid -Continue KCl at 20 mEq po daily -Coreg 25mg BID -Losartan 25mg daily ordered, refused by patient -Spironolactone 50mg daily ordered, refused by patient due to N/V with previous administration (2) CKD (chronic kidney disease) Code(s): N18.9 - Chronic kidney disease, unspecified Status: Chronic Plan: -Cr 1.87 on admission, baseline ~1.4 per chart review -Likely due to low renal perfusion pressure due to CHF -Improved CR to 1.69 with diuresis on 03/06/18 -Consult nephrology as patient with CKD on diuresis (3) History of CVA (cerebrovascular accident) Code(s): Z86.73 - Personal history of transient ischemic attack (TIA), and cerebral infarction without residual deficits Status: Acute Plan: Patient with history of CVA -Patient currently anticoagulated on Coumadin. Per patient report dosing recently altered with 2 mg every Monday, today, Monday, and Monday with 4 mg on Monday and . -INR elevated to 3.8 on admission -INR decreased to 2.8 today -Resume home Coumadin and monitor INR at this time (4) Hypertension Code(s): I10 - Essential (primary) hypertension Status: Chronic Plan: -Patient has h/o HTN per chart review, vitals wnl on admission -Continue to monitor -Medications as above -Clonidine 0.1 mg every 6 hours as needed for blood pressure greater than 180/ 110 (5) Nutrition, metabolism, and development symptoms Code(s): R63.8 - Other symptoms and signs concerning food and fluid intake Status: Acute Plan: -Fluids: per PO, fluid restriction to 1800 mL daily -Electrolytes: continue to monitor and replete as needed -Nutrition: Heart healthy diet, sodium restriction to 2gm daily -DVT ppx: Patient on warfarin, continue home dose -GI ppx: not indicated at this time -PPx: Tessalon Perles as needed for cough, Zofran as needed for nausea/vomiting , Tylenol as needed for fever/pain, constipation protocol, clonidine as needed for blood pressure greater than 180/110 -Incentive spirometry <Rafael Davis - 03/07/18 10:26> - Attending Attestation Patient examined independently and case was discussed with resident physician I have read the above note and agree with the assessment/plan as discussed with me I was involved in all medical decision making for this patient Brannon Willard MD <Brannon Willard - 03/07/18 13:22>
--- NOTE | 2018-03-07 11:09 | P.PNNP ---
Subjective Interval history: Renal function is slightly worse. She refused Spironolactone as it causes nausea. <Isela Shelley - Last Filed: 03/07/18 11:07> Physical Exam Vital signs: Vital Signs 03/06/18 11:54 03/06/18 16:00 03/06/18 17:43 Temperature 97.5 F L 98.2 F Pulse Rate 88 91 H Respiratory Rate 16 20 Blood Pressure 129/108 H 144/89 H Pulse Oximetry 97 99 97 03/06/18 19:40 03/06/18 19:43 03/06/18 20:00 Temperature 96.8 F L Pulse Rate 94 H 107 H Respiratory Rate 18 Blood Pressure 142/117 H Pulse Oximetry 96 100 03/07/18 00:00 03/07/18 04:00 03/07/18 08:00 Temperature 97.8 F 97.5 F L 97.7 F Pulse Rate 91 H 76 73 Respiratory Rate 16 16 16 Blood Pressure 130/87 129/92 H 125/91 H Pulse Oximetry 93 L 97 97 Intake & Output 03/06/18 03/07/18 03/07/18 18:59 06:59 18:59 Intake Total 838 / 838 478 / 478 Output Total 350 / 350 Balance 488 / 488 478 / 478 Weight 89 kg 87 kg Intake: Oral 838 / 838 478 / 478 Output: Urine 350 / 350 Other: # Voids 1 Date of Last Bowel Movement 03/06/18 03/06/18 - Constitutional no acute distress, obese - Routine HEENT Exam Head: Present: normocephalic - Routine Neck Exam Present: supple, full ROM, JVD - Routine Respiratory Exam Present: CTA bilaterally. Absent: accessory muscle use - Routine Cardiovascular Exam Present: S1, S2. Absent: murmur - Routine Abdominal Exam Present: soft, normoactive bowel sounds - Routine Extremities Exam Present: edema, pulses intact, tenderness - Routine Skin Exam Present: intact, dry, warm - Routine Neurological Exam Present: alert, oriented X3, CN II-XII intact, moving all extremities <Isela Shelley - Last Filed: 03/07/18 11:07> Vital signs: Vital Signs 03/07/18 15:50 03/07/18 16:00 03/07/18 20:00 Temperature 98.0 F 97.8 F 97.5 F L Pulse Rate 62 63 74 Respiratory Rate 16 20 20 Blood Pressure 115/74 109/80 118/81 Pulse Oximetry 98 95 98 03/08/18 00:00 03/08/18 04:00 03/08/18 08:00 Temperature 97.5 F L 97.7 F 97.3 F L Pulse Rate 69 60 65 Respiratory Rate 20 18 16 Blood Pressure 126/86 120/80 122/87 Pulse Oximetry 94 L 96 97 03/08/18 12:00 Temperature 97.8 F Pulse Rate 66 Respiratory Rate 16 Blood Pressure 116/81 Pulse Oximetry 97 Intake & Output 03/07/18 03/08/18 03/08/18 18:59 06:59 18:59 Weight 89 kg Other: Date of Last Bowel Movement 03/07/18 03/07/18 Weight On Admission 92.8 kg <Pedro López - Last Filed: 03/08/18 15:38> Assessment and Plan - Assessment (1) ARIANA (acute kidney injury) Code(s): N17.9 - Acute kidney failure, unspecified Status: Acute Plan: Her baseline creatinine is 0.7. ARIANA most likely due to increased renal vein pressure from CHF exacerbation. Renal function slightly worse today. Needs diuresis. Changed lasix to Bumex 2 mg BID. She will attempt to take the Spironolactone. Continue to monitor renal function. Monitor urine output. Avoid nephrotoxins. (2) Acute exacerbation of congestive heart failure Code(s): I50.9 - Heart failure, unspecified Status: Acute Qualifiers: Heart failure type: unspecified Qualified Code(s): I50.9 - Heart failure, unspecified Plan: Cardiology following. Diuresis as above. Continue Coreg. Life vest in place. Monitor fluid status, daily weight, etc. Low Na diet ordered. (3) Hypertension Code(s): I10 - Essential (primary) hypertension Status: Chronic Plan: Continue medications as ordered <Isela Shelley - Last Filed: 03/07/18 11:07> - Assessment (1) ARIANA (acute kidney injury) Code(s): N17.9 - Acute kidney failure, unspecified Status: Acute (2) Acute exacerbation of congestive heart failure Code(s): I50.9 - Heart failure, unspecified Status: Acute Qualifiers: Heart failure type: unspecified Qualified Code(s): I50.9 - Heart failure, unspecified (3) Hypertension Code(s): I10 - Essential (primary) hypertension Status: Chronic - Attending Attestation patient was seen and examined. Agree with above assessment and plan. Seen on . She agreed to attempt to take Aldactone. Not much to offer at this time. She has cardiorenal syndrome. <Pedro López - Last Filed: 03/08/18 15:38>
--- NOTE | 2018-03-07 14:01 | P.PNCA ---
Subjective Interval history: Patient denies any chest pain, pressure, palpitations or dizziness. Patient states that edema has improved slightly that she has lost 4 pounds since yesterday. Patient is very tearful and feels like she is never going to get any better. Physical Exam Vital signs: Vital Signs 03/06/18 16:00 03/06/18 17:43 03/06/18 19:40 Temperature 98.2 F Pulse Rate 91 H Respiratory Rate 20 Blood Pressure 144/89 H Pulse Oximetry 99 97 96 03/06/18 19:43 03/06/18 20:00 03/07/18 00:00 Temperature 96.8 F L 97.8 F Pulse Rate 94 H 107 H 91 H Respiratory Rate 18 16 Blood Pressure 142/117 H 130/87 Pulse Oximetry 100 93 L 03/07/18 04:00 03/07/18 08:00 03/07/18 08:10 Temperature 97.5 F L 97.7 F Pulse Rate 76 73 74 Respiratory Rate 16 16 Blood Pressure 129/92 H 125/91 H Pulse Oximetry 97 97 03/07/18 11:30 Temperature 97.6 F Pulse Rate 74 Respiratory Rate 16 Blood Pressure 116/88 Pulse Oximetry 97 Intake & Output 03/06/18 03/07/18 03/07/18 18:59 06:59 18:59 Intake Total 838 / 838 478 / 478 Output Total 350 / 350 Balance 488 / 488 478 / 478 Weight 89 kg 87 kg Intake: Oral 838 / 838 478 / 478 Output: Urine 350 / 350 Other: # Voids 1 Date of Last Bowel Movement 03/06/18 03/06/18 03/07/18 - Constitutional no acute distress - Routine HEENT Exam Head: Present: normocephalic Eye: Present: PERRL ENT: Present: mucous membranes moist - Routine Neck Exam Present: full ROM - Routine Respiratory Exam Present: CTA bilaterally - Routine Cardiovascular Exam Present: S1, S2. Absent: gallop, rubs - Routine Abdominal Exam Present: soft - Routine Extremities Exam Present: edema, full ROM, pulses intact, normal capillary refill. Absent: cyanosis, clubbing - Routine Skin Exam Present: intact - Routine Neurological Exam Present: oriented X3 - Detailed Neurological Exam: Coma Scale Eye Opening: Spontaneous Verbal Response: Oriented Motor Response: Obey commands Kindra Coma Scale Total: 15 - Routine Psychiatric Exam Present: normal affect Assessment and Plan - Assessment (1) Acute exacerbation of CHF (congestive heart failure) Code(s): I50.9 - Heart failure, unspecified Status: Acute (2) Fluid overload Code(s): E87.70 - Fluid overload, unspecified Status: Acute (3) CKD (chronic kidney disease) Code(s): N18.9 - Chronic kidney disease, unspecified Status: Deleted (4) Hypertension Code(s): I10 - Essential (primary) hypertension Status: Chronic (5) Acute worsening of stage 3 chronic kidney disease Code(s): N18.3 - Chronic kidney disease, stage 3 (moderate) Status: Acute (6) Acute exacerbation of congestive heart failure Code(s): I50.9 - Heart failure, unspecified Status: Acute (7) Supratherapeutic INR Code(s): R79.1 - Abnormal coagulation profile Status: Acute - Plan Patient is refusing Aldactone and losartan. Educated patient on the importance of both these medications concerning her health condition. Continue with current diuresis. Continue with cardiac treatment plan and adjust as needed. Will follow patient during hospitalization and in office post discharge. The patient was referred to CHF clinic at [facility] where she will be seen as outpatient after discharge. The patient was seen and evaluated by Dr. Mae who participated in care, management and decision-making. - Attending Attestation Patient seen and examined. I reviewed and agree with the evaluation and plan as presented. Continue tx for CHF. (2) Fluid overload Qualifiers: Hypervolemia type: unspecified Qualified Code(s): E87.70 - Fluid overload, unspecified (6) Acute exacerbation of congestive heart failure Qualifiers: Heart failure type: unspecified Qualified Code(s): I50.9 - Heart failure, unspecified
[2018-03-08] MEDS: Carvedilol 12.5 MG Tablet PO SCH ×2 (08:17→20:54)
[2018-03-08] MEDS: Spironolactone 50 MG Tablet PO SCH (08:18)
[2018-03-08] MEDS: Senna/Docusate Sodium 8.6/50 MG Tablet PO SCH ×2 (08:20→20:54)
--- NOTE | 2018-03-08 10:05 | P.PNCA ---
Subjective Interval history: Patient denies any chest pain, pressure, palpitations, dizziness or shortness of breath. Patient does complain of edema in the lower extremities bilaterally that is painful. Physical Exam Vital signs: Vital Signs 03/07/18 11:30 03/07/18 15:50 03/07/18 16:00 Temperature 97.6 F 98.0 F 97.8 F Pulse Rate 74 62 63 Respiratory Rate 16 16 20 Blood Pressure 116/88 115/74 109/80 Pulse Oximetry 97 98 95 03/07/18 20:00 03/08/18 00:00 03/08/18 04:00 Temperature 97.5 F L 97.5 F L 97.7 F Pulse Rate 74 69 60 Respiratory Rate 20 20 18 Blood Pressure 118/81 126/86 120/80 Pulse Oximetry 98 94 L 96 Intake & Output 03/07/18 03/08/18 03/08/18 18:59 06:59 18:59 Weight 89 kg Other: Date of Last Bowel Movement 03/07/18 03/07/18 Weight On Admission 92.8 kg - Constitutional no acute distress - Routine HEENT Exam Head: Present: normocephalic Eye: Present: PERRL ENT: Present: mucous membranes moist - Routine Neck Exam Present: supple - Routine Respiratory Exam Present: CTA bilaterally - Routine Cardiovascular Exam Present: S1, S2. Absent: gallop, rubs, S3, S4 - Routine Abdominal Exam Present: soft - Routine Extremities Exam Present: edema, full ROM, pulses intact, normal capillary refill Comments: 2+ edema bilaterally lower extremities - Routine Skin Exam Present: intact - Routine Neurological Exam Present: oriented X3 - Detailed Neurological Exam: Coma Scale Eye Opening: Spontaneous Verbal Response: Oriented Motor Response: Obey commands Kindra Coma Scale Total: 15 - Routine Psychiatric Exam Present: normal affect Assessment and Plan - Assessment (1) Acute exacerbation of CHF (congestive heart failure) Code(s): I50.9 - Heart failure, unspecified Status: Acute (2) Fluid overload Code(s): E87.70 - Fluid overload, unspecified Status: Acute (3) CKD (chronic kidney disease) Code(s): N18.9 - Chronic kidney disease, unspecified Status: Deleted (4) Hypertension Code(s): I10 - Essential (primary) hypertension Status: Chronic (5) Acute worsening of stage 3 chronic kidney disease Code(s): N18.3 - Chronic kidney disease, stage 3 (moderate) Status: Acute (6) Acute exacerbation of congestive heart failure Code(s): I50.9 - Heart failure, unspecified Status: Acute (7) Supratherapeutic INR Code(s): R79.1 - Abnormal coagulation profile Status: Acute - Plan Nephrology evaluation in progress. Continue with cardiac treatment plan. Will follow patient during hospitalization and in office post discharge. The patient was referred to CHF clinic at [facility] where she will be seen as outpatient after discharge. The patient was seen and evaluated by Dr. Mae who participated in care, management and decision-making. - Attending Attestation Patient seen and examined. I reviewed and agree with the evaluation and plan as presented. Continue and titrate tx for CHF. F/u in CHF clinic [facility] after discharge. (1) Acute exacerbation of CHF (congestive heart failure) Qualifiers: Heart failure type: systolic Qualified Code(s): I50.23 - Acute on chronic systolic (congestive) heart failure (2) Fluid overload Qualifiers: Hypervolemia type: unspecified Qualified Code(s): E87.70 - Fluid overload, unspecified (6) Acute exacerbation of congestive heart failure Qualifiers: Heart failure type: unspecified Qualified Code(s): I50.9 - Heart failure, unspecified
--- NOTE | 2018-03-08 11:04 | P.PNFP ---
Subjective Interval history: Patient seen and examined this morning. No acute events overnight per report. Patient states that she is doing well, however is concerned with her slow improvement. She states that her bilateral lower extremities are very tender this morning, but she does note improved edema at the bilateral hips. Otherwise she has no complaints and denies a complete review of systems including but not limited to any fevers, chills, shortness of breath, chest pain , we did briefly discussed her discharge planning as physical therapy is recommending rehabilitation placement. She states that she would like to be discharged home and is agreeable to home health nursing with physical therapy. <Rafael Davis H - 03/08/18 14:34> Results - Labs Result diagrams: 03/08/18 11:21 03/08/18 11:21 <Brannon Willard - 03/08/18 16:05> Abnormal lab results 03/08/18 03/08/18 Range/Units 11:21 11:21 Hgb 10.8 L (11.6-15.3) gm/dL Hct 33.0 L (35.0-46.0) % MCV 75.1 L (80.0-100.0) fL MCH 24.5 L (27.0-34.0) pg RDW 19.9 H (11.6-17.2) % BUN 38 H (7-18) mg/dL Creatinine 1.83 H (0.50-1.00) mg/dL Estimated GFR 33 L (>89) mL/min Calcium 8.1 L (8.5-10.1) mg/dL Short CBC 03/08/18 Range/Units 11:21 WBC 4.1 (4.0-11.0) th/mm3 Hgb 10.8 L (11.6-15.3) gm/dL Hct 33.0 L (35.0-46.0) % Plt Count 215 (150-450) th/mm3 BMP 03/08/18 11:21 Sodium 141 Potassium 3.6 Chloride 104 Carbon Dioxide 26.4 BUN 38 H Creatinine 1.83 H Calcium 8.1 L <Brannon Willard - 03/08/18 16:05> Physical Exam Vital signs: Vital Signs 03/07/18 20:00 03/08/18 00:00 03/08/18 04:00 Temperature 97.5 F L 97.5 F L 97.7 F Pulse Rate 74 69 60 Respiratory Rate 20 20 18 Blood Pressure 118/81 126/86 120/80 Pulse Oximetry 98 94 L 96 03/08/18 08:00 03/08/18 12:00 Temperature 97.3 F L 97.8 F Pulse Rate 65 66 Respiratory Rate 16 16 Blood Pressure 122/87 116/81 Pulse Oximetry 97 97 Intake & Output 03/07/18 03/08/18 03/08/18 18:59 06:59 18:59 Weight 89 kg Other: Date of Last Bowel Movement 03/07/18 03/07/18 Weight On Admission 92.8 kg <Brannon Willard - 03/08/18 16:05> Vital Signs 03/07/18 11:30 03/07/18 15:50 03/07/18 16:00 Temperature 97.6 F 98.0 F 97.8 F Pulse Rate 74 62 63 Respiratory Rate 16 16 20 Blood Pressure 116/88 115/74 109/80 Pulse Oximetry 97 98 95 03/07/18 20:00 03/08/18 00:00 03/08/18 04:00 Temperature 97.5 F L 97.5 F L 97.7 F Pulse Rate 74 69 60 Respiratory Rate 20 20 18 Blood Pressure 118/81 126/86 120/80 Pulse Oximetry 98 94 L 96 03/08/18 08:00 Temperature 97.3 F L Pulse Rate 65 Respiratory Rate 16 Blood Pressure 122/87 Pulse Oximetry 97 Intake & Output 03/07/18 03/08/18 03/08/18 18:59 06:59 18:59 Weight 89 kg Other: Date of Last Bowel Movement 03/07/18 03/07/18 Weight On Admission 92.8 kg <Rafael Davis - 03/08/18 11:04> Narrative: GENERAL: Well-nourished, well-developed -[place] female sitting in hospital bed watching television, talking on the phone in no acute distress. SKIN: Warm and dry. No rash. HEENT: Atraumatic, normocephalic with extraocular motions intact. No rhinorrhea. No visible lymphadenopathy or jugulovenous distension appreciated. CARDIOVASCULAR: Regular rate and rhythm without obvious murmurs, gallops, or rubs. 2+ pulses in all four extremities. LifeVest in place. RESPIRATORY: Clear to auscultation bilaterally without obvious CRW. No increased work of breathing. No cough during exam. GASTROINTESTINAL: Abdomen soft, non-tender, nondistended with positive bowel sounds. No masses appreciated. MUSCULOSKELETAL: No cyanosis. 2+ edema throughout the lower extremities appreciated to the iliac crests where the edema is improved to 1+. Patient tender to palpation along both lower extremities.. Difficult to palpate PT/DP pulses secondary to edema. Appropriate capillary refill. Normal range of motion intact. NEURO/PSYCH: Afocal. Awake, alert, and oriented x3. Normal speech and judgement. <RyanRafael Garnica - 03/08/18 11:41> Assessment and Plan - Assessment (1) Acute exacerbation of CHF (congestive heart failure) Code(s): I50.9 - Heart failure, unspecified Status: Acute (2) Acute kidney injury superimposed on CKD Code(s): N17.9 - Acute kidney failure, unspecified; N18.9 - Chronic kidney disease, unspecified Status: Acute (3) History of CVA (cerebrovascular accident) Code(s): Z86.73 - Personal history of transient ischemic attack (TIA), and cerebral infarction without residual deficits Status: Acute (4) Hypertension Code(s): I10 - Essential (primary) hypertension Status: Chronic (5) Nutrition, metabolism, and development symptoms Code(s): R63.8 - Other symptoms and signs concerning food and fluid intake Status: Acute <Brannon Willard - 03/08/18 16:05> (1) Acute exacerbation of CHF (congestive heart failure) Code(s): I50.9 - Heart failure, unspecified Status: Acute Plan: Patient admitted for acute on chronic systolic CHF exacerbation. -EKG: Sinus rhythm with noted PVCs, no significant ST changes. (Per medical team read) -CXR: Possible b/l costophrenic angle blunting due to effusion -BNP: >5000 -Most recent ECHO from 02/08 showing EF in the range of 20-25%, pulmonary arterial pressure of 77, mod to severe MVR, severe TVR, av sclerosis, severely dilated LV. -Telemetry with LifeVest in place -Low-salt diet less than 2 g per day. Fluid restrict to 1.5 L per day. -Strict Is and Os. Daily weights. Supplemental oxygen and monitor on pulse ox. -Encourage patient to sit up in bed with legs below chest or in chair with legs hanging down. -Consult placed to nephrology given patient needing diuresis and with acute on chronic kidney disease -Monitor I/Os and daily weights -Consult cardiology, patient known to Dr. Mae Medications: -Pt given Lasix 80 mg IV in ED -Stop Lasix 40 mg IV bid -Start Bumex 2mg BID -Continue KCl at 20 mEq po daily -Coreg 25mg BID -Losartan 25mg daily ordered -Spironolactone 50mg daily ordered (2) Acute kidney injury superimposed on CKD Code(s): N17.9 - Acute kidney failure, unspecified; N18.9 - Chronic kidney disease, unspecified Status: Acute Plan: -Cr 1.87 on admission, baseline 0.7 per nephrology -Likely due to low renal perfusion pressure due to CHF -Consult nephrology as patient with CKD on diuresis as above (3) History of CVA (cerebrovascular accident) Code(s): Z86.73 - Personal history of transient ischemic attack (TIA), and cerebral infarction without residual deficits Status: Acute Plan: Patient with history of CVA -Patient currently anticoagulated on Coumadin. Per patient report dosing recently altered with 2 mg every Monday, , Monday, and Monday with 4 mg on Monday and . -INR elevated to 3.8 on admission -INR decreased to 2.8 today -Resume home Coumadin and monitor INR at this time (4) Hypertension Code(s): I10 - Essential (primary) hypertension Status: Chronic Plan: -Patient has h/o HTN per chart review, vitals wnl on admission -Continue to monitor -Medications as above -Clonidine 0.1 mg every 6 hours as needed for blood pressure greater than 180/ 110 (5) Nutrition, metabolism, and development symptoms Code(s): R63.8 - Other symptoms and signs concerning food and fluid intake Status: Acute Plan: -Fluids: per PO, fluid restriction to 1800 mL daily -Electrolytes: continue to monitor and replete as needed -Nutrition: Heart healthy diet, sodium restriction to 2gm daily -DVT ppx: Patient on warfarin, continue home dose -GI ppx: not indicated at this time -PPx: Tessalon Perles as needed for cough, Zofran as needed for nausea/vomiting , Tylenol as needed for fever/pain, constipation protocol, clonidine as needed for blood pressure greater than 180/110 -Incentive spirometry -Physical therapy consulted who recommends rehab placement, however patient would like to be discharged home with home health nursing <Rafael Davis - 03/08/18 14:32> - Attending Attestation Patient examined independently and case discussed with resident physician I have read the above note and agree with the assessment/plan as discussed with me I was involved in all medical decision making for this patient Brannon Willard MD <Brannon Willard - 03/08/18 16:05> <Rafael Davis - Last Filed: 03/08/18 14:32> (1) Acute exacerbation of CHF (congestive heart failure) Qualifiers: Heart failure type: systolic Qualified Code(s): I50.23 - Acute on chronic systolic (congestive) heart failure <Brannon Willard - Last Filed: 03/08/18 16:05> (1) Acute exacerbation of CHF (congestive heart failure) Qualifiers: Heart failure type: systolic Qualified Code(s): I50.23 - Acute on chronic systolic (congestive) heart failure <Rafael Davis - Last Filed: 03/08/18 14:32> (1) Acute exacerbation of CHF (congestive heart failure) Qualifiers: Heart failure type: systolic Qualified Code(s): I50.23 - Acute on chronic systolic (congestive) heart failure <Brannon Willard - Last Filed: 03/08/18 16:05> (1) Acute exacerbation of CHF (congestive heart failure) Qualifiers: Heart failure type: systolic Qualified Code(s): I50.23 - Acute on chronic systolic (congestive) heart failure
[2018-03-08 11:49] LABS: Hemoglobin 10.8 gm/dL (11.6-15.3); Mean Corpuscular HGB Conc 32.6 % (32.0-36.0); Mean Corpuscular Hemoglobin 24.5 pg (27.0-34.0); Mean Corpuscular Volume 75.1 fL (80.0-100.0); Mean Platelet Volume 9.9 fL (7.0-11.0); Platelet Count 215 th/mm3 (150-450); Red Cell Distribution Width 19.9 % (11.6-17.2); White Blood Count 4.1 th/mm3 (4.0-11.0)
--- NOTE | 2018-03-08 11:57 | P.PNNP ---
Subjective Interval history: Awaiting labs from today. Edema persists. Weight is higher. <Isela Shelley - Last Filed: 03/08/18 11:52> Physical Exam Vital signs: Vital Signs 03/07/18 15:50 03/07/18 16:00 03/07/18 20:00 Temperature 98.0 F 97.8 F 97.5 F L Pulse Rate 62 63 74 Respiratory Rate 16 20 20 Blood Pressure 115/74 109/80 118/81 Pulse Oximetry 98 95 98 03/08/18 00:00 03/08/18 04:00 03/08/18 08:00 Temperature 97.5 F L 97.7 F 97.3 F L Pulse Rate 69 60 65 Respiratory Rate 20 18 16 Blood Pressure 126/86 120/80 122/87 Pulse Oximetry 94 L 96 97 Intake & Output 03/07/18 03/08/18 03/08/18 18:59 06:59 18:59 Weight 89 kg Other: Date of Last Bowel Movement 03/07/18 03/07/18 Weight On Admission 92.8 kg - Constitutional no acute distress, average body habitus - Routine Neck Exam Present: supple, full ROM - Routine Respiratory Exam Present: rales. Absent: accessory muscle use - Routine Cardiovascular Exam Present: S1, S2, murmur Comments: life vest in place - Routine Abdominal Exam Present: soft, normoactive bowel sounds - Routine Extremities Exam Present: edema, tenderness - Routine Skin Exam Present: intact, dry - Routine Neurological Exam Present: alert, oriented X3, CN II-XII intact, moving all extremities - Detailed Neurological Exam: Coma Scale Eye Opening: Spontaneous Verbal Response: Oriented Motor Response: Obey commands [place] Coma Scale Total: 15 - Routine Psychiatric Exam Present: normal affect, normal thought process <Isela Shelley - Last Filed: 03/08/18 11:52> Vital signs: Vital Signs 03/07/18 15:50 03/07/18 16:00 03/07/18 20:00 Temperature 98.0 F 97.8 F 97.5 F L Pulse Rate 62 63 74 Respiratory Rate 16 20 20 Blood Pressure 115/74 109/80 118/81 Pulse Oximetry 98 95 98 03/08/18 00:00 03/08/18 04:00 03/08/18 08:00 Temperature 97.5 F L 97.7 F 97.3 F L Pulse Rate 69 60 65 Respiratory Rate 20 18 16 Blood Pressure 126/86 120/80 122/87 Pulse Oximetry 94 L 96 97 03/08/18 12:00 Temperature 97.8 F Pulse Rate 66 Respiratory Rate 16 Blood Pressure 116/81 Pulse Oximetry 97 Intake & Output 03/07/18 03/08/18 03/08/18 18:59 06:59 18:59 Weight 89 kg Other: Date of Last Bowel Movement 03/07/18 03/07/18 Weight On Admission 92.8 kg <Pedro López - Last Filed: 03/08/18 15:47> Assessment and Plan - Assessment (1) ARIANA (acute kidney injury) Code(s): N17.9 - Acute kidney failure, unspecified Status: Acute Plan: Her baseline creatinine is 0.7. ARIANA most likely due to increased renal vein pressure from CHF exacerbation. Renal function from today is pending. Needs more diuresis. On Bumex 2 mg BID, consider changing to Q8H. She is tolerating the Spironolactone. Continue to monitor renal function. Monitor urine output, weight, fluid status. Avoid nephrotoxins. (2) Acute exacerbation of congestive heart failure Code(s): I50.9 - Heart failure, unspecified Status: Acute Qualifiers: Heart failure type: unspecified Qualified Code(s): I50.9 - Heart failure, unspecified Plan: Cardiology following. Diuresis as above. Continue Coreg. Life vest in place. Low Na diet ordered. (3) Hypertension Code(s): I10 - Essential (primary) hypertension Status: Chronic Plan: Continue medications as ordered <Isela Shelley - Last Filed: 03/08/18 11:52> - Assessment (1) ARIANA (acute kidney injury) Code(s): N17.9 - Acute kidney failure, unspecified Status: Acute (2) Acute exacerbation of congestive heart failure Code(s): I50.9 - Heart failure, unspecified Status: Acute Qualifiers: Heart failure type: unspecified Qualified Code(s): I50.9 - Heart failure, unspecified (3) Hypertension Code(s): I10 - Essential (primary) hypertension Status: Chronic - Attending Attestation patient was seen and examined. Agree with above assessment and plan. Prognosis is guarded. Increase Bumex. <Pedro López - Last Filed: 03/08/18 15:47>
[2018-03-08 12:09] LABS: Calcium 8.1 mg/dL (8.5-10.1); Carbon Dioxide 26.4 meq/L (21.0-32.0); Potassium 3.6 meq/L (3.5-5.1)
[2018-03-09 08:47] LABS: Hematocrit 30.5 % (35.0-46.0); Hemoglobin 9.9 gm/dL (11.6-15.3); Mean Corpuscular HGB Conc 32.6 % (32.0-36.0); Mean Corpuscular Hemoglobin 24.6 pg (27.0-34.0); Mean Corpuscular Volume 75.6 fL (80.0-100.0); Mean Platelet Volume 10.4 fL (7.0-11.0); Platelet Count 233 th/mm3 (150-450); Red Blood Count 4.03 mil/mm3 (4.00-5.30); White Blood Count 4.3 th/mm3 (4.0-11.0)
[2018-03-09 08:50] LABS: Calcium 8.2 mg/dL (8.5-10.1); Carbon Dioxide 25.7 meq/L (21.0-32.0); Potassium 3.6 meq/L (3.5-5.1)
--- NOTE | 2018-03-09 09:17 | P.PNNP ---
Subjective Interval history: Renal funciton and urine output have improved. No new concerns. Edema persists. <Isela Shelley - Last Filed: 03/09/18 09:13> Physical Exam Vital signs: Vital Signs 03/08/18 12:00 03/08/18 16:00 03/08/18 20:00 Temperature 97.8 F 98.0 F 97.5 F L Pulse Rate 66 66 64 Respiratory Rate 16 16 18 Blood Pressure 116/81 123/86 134/89 Pulse Oximetry 97 98 100 03/08/18 20:52 03/09/18 00:00 03/09/18 04:00 Temperature 97.9 F 97.9 F Pulse Rate 73 65 Respiratory Rate 16 18 Blood Pressure 121/90 134/87 Pulse Oximetry 96 98 99 Intake & Output 03/08/18 03/09/18 03/09/18 18:59 06:59 18:59 Intake Total 480 / 480 240 / 240 Output Total 600 / 600 1800 / 1800 Balance -120 / -120 -1560 / -1560 Weight 90.3 kg Intake: Oral 480 / 480 240 / 240 Output: Urine 600 / 600 1800 / 1800 Other: Date of Last Bowel Movement 03/08/18 - Constitutional no acute distress, obese, cooperative - Routine HEENT Exam Head: Present: normocephalic - Routine Neck Exam Present: supple, full ROM - Routine Respiratory Exam Present: crackles. Absent: accessory muscle use Comments: Improved renal function and urine output. - Routine Cardiovascular Exam Present: RRR, S1, S2 - Routine Abdominal Exam Present: soft, normoactive bowel sounds - Routine Extremities Exam Present: edema, pulses intact, calf tenderness - Routine Skin Exam Present: intact, dry, warm - Routine Neurological Exam Present: alert, oriented X3, CN II-XII intact - Detailed Neurological Exam: Coma Scale Eye Opening: Spontaneous Verbal Response: Oriented Motor Response: Obey commands [place] Coma Scale Total: 15 - Routine Psychiatric Exam Present: normal affect, normal thought process <Isela Shelley - Last Filed: 03/09/18 09:13> Vital signs: Vital Signs 03/08/18 16:00 03/08/18 20:00 03/08/18 20:52 Temperature 98.0 F 97.5 F L Pulse Rate 66 64 Respiratory Rate 16 18 Blood Pressure 123/86 134/89 Pulse Oximetry 98 100 96 08/24/18 00:00 03/09/18 04:00 03/09/18 08:00 Temperature 97.9 F 97.9 F 98 F Pulse Rate 73 65 60 Respiratory Rate 16 18 20 Blood Pressure 121/90 134/87 126/94 H Pulse Oximetry 98 99 98 03/09/18 12:00 Temperature 97.8 F Pulse Rate 67 Respiratory Rate 18 Blood Pressure 110/76 Pulse Oximetry 99 Intake & Output 03/08/18 03/09/18 03/09/18 18:59 06:59 18:59 Intake Total 480 / 480 240 / 240 Output Total 600 / 600 1800 / 1800 Balance -120 / -120 -1560 / -1560 Weight 90.3 kg Intake: Oral 480 / 480 240 / 240 Output: Urine 600 / 600 1800 / 1800 Other: Date of Last Bowel Movement 03/08/18 <Pedro López - Last Filed: 03/09/18 13:38> Assessment and Plan - Assessment (1) ARIANA (acute kidney injury) Code(s): N17.9 - Acute kidney failure, unspecified Status: Acute Plan: Her baseline creatinine is 0.7. ARIANA most likely due to increased renal vein pressure from CHF exacerbation. Renal function is improving. Diuresing well on Bumex 2 mg TID and Spironolactone, continue for now. Continue to monitor renal function. Monitor urine output, weight, fluid status. Avoid nephrotoxins. (2) Acute exacerbation of congestive heart failure Code(s): I50.9 - Heart failure, unspecified Status: Acute Qualifiers: Heart failure type: unspecified Qualified Code(s): I50.9 - Heart failure, unspecified Plan: Cardiology following. Diuresis as above. Continue Coreg. Life vest in place. Low Na diet ordered. (3) Hypertension Code(s): I10 - Essential (primary) hypertension Status: Chronic Plan: Continue medications as ordered <Isela Shelley - Last Filed: 03/09/18 09:13> - Assessment (1) ARIANA (acute kidney injury) Code(s): N17.9 - Acute kidney failure, unspecified Status: Acute (2) Acute exacerbation of congestive heart failure Code(s): I50.9 - Heart failure, unspecified Status: Acute Qualifiers: Heart failure type: unspecified Qualified Code(s): I50.9 - Heart failure, unspecified (3) Hypertension Code(s): I10 - Essential (primary) hypertension Status: Chronic - Attending Attestation patient was seen and examined. Agree with above assessment and plan. Continue diuresis. <Pedro López - Last Filed: 03/09/18 13:38>
[2018-03-09] MEDS: Senna/Docusate Sodium 8.6/50 MG Tablet PO SCH ×3 (09:31→20:20)
[2018-03-09] MEDS: Carvedilol 12.5 MG Tablet PO SCH ×2 (09:31→20:19)
[2018-03-09] MEDS: Spironolactone 50 MG Tablet PO SCH (09:32)
--- NOTE | 2018-03-09 09:38 | P.PNFP ---
Subjective Interval history: Patient seen and examined this morning. No acute events overnight per staff. Patient states that she feels much better today and feels that her legs are "getting loan administrator." She states that her legs are not as tender to touch as yesterday, but are "still full." She was encouraged by her renal functional improvement and is hopeful for discharge in the coming days. She states that she "urinated all day yesterday and lost a couple pounds". She has no current complaints and denies a complete review systems including but not limited breath , chest pain, NVD, and abdominal pain. <Rafael Davis H - 03/09/18 09:38> Results - Labs Result diagrams: 03/09/18 07:05 03/09/18 07:05 <Brannon Willard - 03/09/18 14:16> Abnormal lab results 03/09/18 03/09/18 Range/Units 07:05 07:05 Hgb 9.9 L (11.6-15.3) gm/dL Hct 30.5 L (35.0-46.0) % MCV 75.6 L (80.0-100.0) fL MCH 24.6 L (27.0-34.0) pg RDW 20.0 H (11.6-17.2) % BUN 38 H (7-18) mg/dL Creatinine 1.47 H (0.50-1.00) mg/dL Estimated GFR 43 L (>89) mL/min Random Glucose 70 L (74-106) mg/dL Calcium 8.2 L (8.5-10.1) mg/dL Short CBC 03/09/18 Range/Units 07:05 WBC 4.3 (4.0-11.0) th/mm3 Hgb 9.9 L (11.6-15.3) gm/dL Hct 30.5 L (35.0-46.0) % Plt Count 233 (150-450) th/mm3 BMP 03/09/18 07:05 Sodium 140 Potassium 3.6 Chloride 103 Carbon Dioxide 25.7 BUN 38 H Creatinine 1.47 H Calcium 8.2 L <Brannon Willard - 03/09/18 14:16> Abnormal lab results 03/08/18 03/08/18 03/09/18 Range/Units 11:21 11:21 07:05 Hgb 10.8 L 9.9 L (11.6-15.3) gm/dL Hct 33.0 L 30.5 L (35.0-46.0) % MCV 75.1 L 75.6 L (80.0-100.0) fL MCH 24.5 L 24.6 L (27.0-34.0) pg RDW 19.9 H 20.0 H (11.6-17.2) % BUN 38 H (7-18) mg/dL Creatinine 1.83 H (0.50-1.00) mg/dL Estimated GFR 33 L (>89) mL/min Random Glucose (74-106) mg/dL Calcium 8.1 L (8.5-10.1) mg/dL 03/09/18 Range/Units 07:05 Hgb (11.6-15.3) gm/dL Hct (35.0-46.0) % MCV (80.0-100.0) fL MCH (27.0-34.0) pg RDW (11.6-17.2) % BUN 38 H (7-18) mg/dL Creatinine 1.47 H (0.50-1.00) mg/dL Estimated GFR 43 L (>89) mL/min Random Glucose 70 L (74-106) mg/dL Calcium 8.2 L (8.5-10.1) mg/dL Short CBC 03/08/18 03/09/18 Range/Units 11:21 07:05 WBC 4.1 4.3 (4.0-11.0) th/mm3 Hgb 10.8 L 9.9 L (11.6-15.3) gm/dL Hct 33.0 L 30.5 L (35.0-46.0) % Plt Count 215 233 (150-450) th/mm3 BMP 03/08/18 03/09/18 11:21 07:05 Sodium 141 140 Potassium 3.6 3.6 Chloride 104 103 Carbon Dioxide 26.4 25.7 BUN 38 H 38 H Creatinine 1.83 H 1.47 H Calcium 8.1 L 8.2 L <Davis,Rafael H - 03/09/18 09:38> Physical Exam Vital signs: Vital Signs 03/08/18 16:00 03/08/18 20:00 03/08/18 20:52 Temperature 98.0 F 97.5 F L Pulse Rate 66 64 Respiratory Rate 16 18 Blood Pressure 123/86 134/89 Pulse Oximetry 98 100 96 03/09/18 00:00 03/09/18 04:00 03/09/18 08:00 Temperature 97.9 F 97.9 F 98 F Pulse Rate 73 65 60 Respiratory Rate 16 18 20 Blood Pressure 121/90 134/87 126/94 H Pulse Oximetry 98 99 98 03/09/18 12:00 Temperature 97.8 F Pulse Rate 69 Respiratory Rate 18 Blood Pressure 110/76 Pulse Oximetry 99 Intake & Output 03/08/18 03/09/18 03/09/18 18:59 06:59 18:59 Intake Total 480 / 480 240 / 240 Output Total 600 / 600 1800 / 1800 Balance -120 / -120 -1560 / -1560 Weight 90.3 kg Intake: Oral 480 / 480 240 / 240 Output: Urine 600 / 600 1800 / 1800 Other: Date of Last Bowel Movement 03/08/18 <Brannon Willard - 03/09/18 14:16> Vital Signs 03/08/18 12:00 03/08/18 16:00 03/08/18 20:00 Temperature 97.8 F 98.0 F 97.5 F L Pulse Rate 66 66 64 Respiratory Rate 16 16 18 Blood Pressure 116/81 123/86 134/89 Pulse Oximetry 97 98 100 03/08/18 20:52 03/09/18 00:00 03/09/18 04:00 Temperature 97.9 F 97.9 F Pulse Rate 73 65 Respiratory Rate 16 18 Blood Pressure 121/90 134/87 Pulse Oximetry 96 98 99 Intake & Output 03/08/18 03/09/18 03/09/18 18:59 06:59 18:59 Intake Total 480 / 480 240 / 240 Output Total 600 / 600 1800 / 1800 Balance -120 / -120 -1560 / -1560 Weight 90.3 kg Intake: Oral 480 / 480 240 / 240 Output: Urine 600 / 600 1800 / 1800 Other: Date of Last Bowel Movement 03/08/18 <Rafael Davis - 03/09/18 09:38> Narrative: GENERAL: Well-nourished, well-developed -[place] female sitting in bed eating breakfast in no acute distress. SKIN: Warm and dry. No rash. HEENT: Atraumatic, normocephalic with extraocular motions intact. No rhinorrhea. No visible lymphadenopathy or jugulovenous distension appreciated. CARDIOVASCULAR: Regular rate and rhythm without obvious murmurs, gallops, or rubs. 2+ pulses in all four extremities. LifeVest in place. RESPIRATORY: Clear to auscultation bilaterally without obvious CRW. No increased work of breathing. No cough during exam. GASTROINTESTINAL: Abdomen soft, non-tender, nondistended with positive bowel sounds. No masses appreciated. MUSCULOSKELETAL: No cyanosis. 2+ edema throughout the lower extremities appreciated to the iliac crests where the edema is improved to 1+. Patient tender to palpation along both lower extremities, but improved from yesterdays exam. Difficult to palpate PT/DP pulses secondary to edema. Appropriate capillary refill. Normal range of motion intact. NEURO/PSYCH: Afocal. Awake, alert, and oriented x3. Normal speech and judgement. <Rafael Davis - 03/09/18 09:38> Assessment and Plan - Assessment (1) Acute exacerbation of CHF (congestive heart failure) Code(s): I50.9 - Heart failure, unspecified Status: Acute (2) Acute kidney injury superimposed on CKD Code(s): N17.9 - Acute kidney failure, unspecified; N18.9 - Chronic kidney disease, unspecified Status: Acute (3) History of CVA (cerebrovascular accident) Code(s): Z86.73 - Personal history of transient ischemic attack (TIA), and cerebral infarction without residual deficits Status: Acute (4) Hypertension Code(s): I10 - Essential (primary) hypertension Status: Chronic (5) Nutrition, metabolism, and development symptoms Code(s): R63.8 - Other symptoms and signs concerning food and fluid intake Status: Acute <Brannon Willard - 03/09/18 14:16> (1) Acute exacerbation of CHF (congestive heart failure) Code(s): I50.9 - Heart failure, unspecified Status: Acute Plan: Patient admitted for acute on chronic systolic CHF exacerbation. -EKG: Sinus rhythm with noted PVCs, no significant ST changes. (Per medical team read) -CXR: Possible b/l costophrenic angle blunting due to effusion -BNP: >5000 -Most recent ECHO from 02/08 showing EF in the range of 20-25%, pulmonary arterial pressure of 77, mod to severe MVR, severe TVR, av sclerosis, severely dilated LV. -Telemetry with LifeVest in place; 7 beat run of V-Tach on telemetry; patient sleeping during episode -Low-salt diet less than 2 g per day. Fluid restrict to 1.5 L per day. -Strict Is and Os. Daily weights. Supplemental oxygen and monitor on pulse ox. -Encourage patient to sit up in bed with legs below chest or in chair with legs hanging down. -Consult placed to nephrology given patient needing diuresis and with acute on chronic kidney disease -Monitor I/Os and daily weights -Consult cardiology, patient known to Dr. Mae Medications: -Pt given Lasix 80 mg IV in ED -Stop Lasix 40 mg IV bid - Bumex 2mg TID -Continue KCl at 20 mEq po daily -Coreg 25mg BID -Losartan 25mg daily ordered -Spironolactone 50mg daily ordered (2) Acute kidney injury superimposed on CKD Code(s): N17.9 - Acute kidney failure, unspecified; N18.9 - Chronic kidney disease, unspecified Status: Acute Plan: -Cr 1.87 on admission, baseline 0.7 per nephrology -Likely due to low renal perfusion pressure due to CHF -Consult nephrology as patient with CKD on diuresis as above (3) History of CVA (cerebrovascular accident) Code(s): Z86.73 - Personal history of transient ischemic attack (TIA), and cerebral infarction without residual deficits Status: Acute Plan: Patient with history of CVA -Patient currently anticoagulated on Coumadin. Per patient report dosing recently altered with 2 mg every Monday, , Monday, and Monday with 4 mg on Monday and . -INR elevated to 3.8 on admission -INR decreased to 2.8 today -Resume home Coumadin (4) Hypertension Code(s): I10 - Essential (primary) hypertension Status: Chronic Plan: -Patient has h/o HTN per chart review, vitals wnl on admission -Continue to monitor -Medications as above -Clonidine 0.1 mg every 6 hours as needed for blood pressure greater than 180/ 110 (5) Nutrition, metabolism, and development symptoms Code(s): R63.8 - Other symptoms and signs concerning food and fluid intake Status: Acute Plan: -Fluids: per PO, fluid restriction to 1800 mL daily -Electrolytes: continue to monitor and replete as needed -Nutrition: Heart healthy diet, sodium restriction to 2gm daily -DVT ppx: Patient on warfarin, continue home dose -GI ppx: not indicated at this time -PPx: Tessalon Perles as needed for cough, Zofran as needed for nausea/vomiting , Tylenol as needed for fever/pain, constipation protocol, clonidine as needed for blood pressure greater than 180/110 -Incentive spirometry -Physical therapy consulted who recommends rehab placement, however patient would like to be discharged home with home health nursing <Rafael Davis - 03/09/18 13:04> - Attending Attestation Patient examined independently and case discussed with resident physician I have read the above note and agree with the assessment/plan as discussed with me I was involved in all medical decision making for this patient Brannon Willard MD <Brannon Willard - 03/09/18 14:16> <Rafael Davis - Last Filed: 03/09/18 13:04> (1) Acute exacerbation of CHF (congestive heart failure) Qualifiers: Heart failure type: systolic Qualified Code(s): I50.23 - Acute on chronic systolic (congestive) heart failure <Brannon Willard - Last Filed: 03/09/18 14:16> (1) Acute exacerbation of CHF (congestive heart failure) Qualifiers: Heart failure type: systolic Qualified Code(s): I50.23 - Acute on chronic systolic (congestive) heart failure <Rafael Davis - Last Filed: 03/09/18 13:04> (1) Acute exacerbation of CHF (congestive heart failure) Qualifiers: Heart failure type: systolic Qualified Code(s): I50.23 - Acute on chronic systolic (congestive) heart failure <Brannon Willard - Last Filed: 03/09/18 14:16> (1) Acute exacerbation of CHF (congestive heart failure) Qualifiers: Heart failure type: systolic Qualified Code(s): I50.23 - Acute on chronic systolic (congestive) heart failure
--- NOTE | 2018-03-09 11:30 | P.PNCA ---
Subjective Interval history: Patient really good spirits this morning, states that she feels much better. Patient denies any chest pain, pressure, palpitations, dizziness or shortness of breath. Patient states that edema lower extremities is slowly improving. Physical Exam Vital signs: Vital Signs 03/08/18 12:00 03/08/18 16:00 03/08/18 20:00 Temperature 97.8 F 98.0 F 97.5 F L Pulse Rate 66 66 64 Respiratory Rate 16 16 18 Blood Pressure 116/81 123/86 134/89 Pulse Oximetry 97 98 100 03/08/18 20:52 03/09/18 00:00 03/09/18 04:00 Temperature 97.9 F 97.9 F Pulse Rate 73 65 Respiratory Rate 16 18 Blood Pressure 121/90 134/87 Pulse Oximetry 96 98 99 03/09/18 08:00 Temperature 98 F Pulse Rate 60 Respiratory Rate 20 Blood Pressure 126/94 H Pulse Oximetry 98 Intake & Output 03/08/18 03/09/18 03/09/18 18:59 06:59 18:59 Intake Total 480 / 480 240 / 240 Output Total 600 / 600 1800 / 1800 Balance -120 / -120 -1560 / -1560 Weight 90.3 kg Intake: Oral 480 / 480 240 / 240 Output: Urine 600 / 600 1800 / 1800 Other: Date of Last Bowel Movement 03/08/18 - Constitutional no acute distress - Routine HEENT Exam Head: Present: normocephalic Eye: Present: PERRL ENT: Present: mucous membranes moist - Routine Neck Exam Present: supple - Routine Respiratory Exam Present: CTA bilaterally - Routine Cardiovascular Exam Present: S1, S2. Absent: murmur, gallop, rubs Comments: LifeVest in place - Routine Abdominal Exam Present: normoactive bowel sounds - Routine Extremities Exam Present: edema, full ROM, pulses intact, normal capillary refill. Absent: cyanosis, clubbing Comments: 2+ pitting edema lower extremities - Routine Skin Exam Present: intact - Routine Neurological Exam Present: oriented X3 - Detailed Neurological Exam: Coma Scale Eye Opening: Spontaneous Verbal Response: Oriented Motor Response: Obey commands Kindra Coma Scale Total: 15 - Routine Psychiatric Exam Present: normal affect Assessment and Plan - Assessment (1) Acute exacerbation of CHF (congestive heart failure) Code(s): I50.9 - Heart failure, unspecified Status: Acute (2) Fluid overload Code(s): E87.70 - Fluid overload, unspecified Status: Acute (3) CKD (chronic kidney disease) Code(s): N18.9 - Chronic kidney disease, unspecified Status: Deleted (4) Hypertension Code(s): I10 - Essential (primary) hypertension Status: Chronic (5) Acute worsening of stage 3 chronic kidney disease Code(s): N18.3 - Chronic kidney disease, stage 3 (moderate) Status: Acute (6) Acute exacerbation of congestive heart failure Code(s): I50.9 - Heart failure, unspecified Status: Acute (7) Supratherapeutic INR Code(s): R79.1 - Abnormal coagulation profile Status: Acute - Plan Kidney function slightly improved. Persistent 2+ pitting edema lower extremities. Patient was placed on Bumex for diuresis. Nephrology evaluation currently in progress. Continue with cardiac treatment plan. Discussed current treatment plan with patient and the importance of taking her medications. Will follow patient during hospitalization and in office post discharge. The patient was referred to CHF clinic at [facility] where she will be seen as outpatient after discharge. The patient was seen and evaluated by Dr. Mae who participated in care, management and decision-making. - Attending Attestation Patient seen and examined. I reviewed and agree with the evaluation and plan as presented. Continue tx for CHF including diuresis. Will schedule f/u in our office after discharge. Will also arrange the evaluation at CHF/transplant clinic in [place]. (1) Acute exacerbation of CHF (congestive heart failure) Qualifiers: Heart failure type: systolic Qualified Code(s): I50.23 - Acute on chronic systolic (congestive) heart failure (2) Fluid overload Qualifiers: Hypervolemia type: unspecified Qualified Code(s): E87.70 - Fluid overload, unspecified (6) Acute exacerbation of congestive heart failure Qualifiers: Heart failure type: unspecified Qualified Code(s): I50.9 - Heart failure, unspecified
[2018-03-10 08:44] LABS: Calcium 8.1 mg/dL (8.5-10.1); Carbon Dioxide 29.1 meq/L (21.0-32.0); Potassium 3.2 meq/L (3.5-5.1)
[2018-03-10] MEDS: Senna/Docusate Sodium 8.6/50 MG Tablet PO SCH ×2 (09:06→21:56)
[2018-03-10] MEDS: Spironolactone 50 MG Tablet PO SCH (09:06)
[2018-03-10] MEDS: Carvedilol 12.5 MG Tablet PO SCH ×2 (09:07→21:55)
--- NOTE | 2018-03-10 09:30 | P.PNFP ---
Subjective Interval history: Patient seen and examined this morning. No acute events overnight per nursing staff. Patient states that her legs feel "about the same." She reports that they are nonpainful when she is at rest, however upon standing/walking they become "full" and very painful. She states that she does not feel like she urinated a lot yesterday, but she did note that she had decreased oral fluid intake stating that she "did not drink anything." Otherwise she has no complaints denies complete review systems including but not limited to any fevers, chills, shortness of breath, chest pain, NVD, abdominal pain, or calf tenderness. <Rafael Davis - 03/10/18 09:38> Results - Labs Result diagrams: 03/09/18 07:05 03/10/18 07:51 <Brannon Willard - 03/10/18 16:17> Abnormal lab results 03/10/18 Range/Units 07:51 Potassium 3.2 L (3.5-5.1) meq/L BUN 36 H (7-18) mg/dL Creatinine 1.47 H (0.50-1.00) mg/dL Estimated GFR 43 L (>89) mL/min Calcium 8.1 L (8.5-10.1) mg/dL [facility] 03/10/18 03/10/18 07:51 07:51 Sodium 141 Potassium 3.2 L Cancelled Chloride 103 Carbon Dioxide 29.1 BUN 36 H Creatinine 1.47 H Calcium 8.1 L <Brannon Willard - 03/10/18 16:17> Abnormal lab results 03/10/18 Range/Units 07:51 Potassium 3.2 L (3.5-5.1) meq/L BUN 36 H (7-18) mg/dL Creatinine 1.47 H (0.50-1.00) mg/dL Estimated GFR 43 L (>89) mL/min Calcium 8.1 L (8.5-10.1) mg/dL [facility] 03/10/18 07:51 Sodium 141 Potassium 3.2 L Chloride 103 Carbon Dioxide 29.1 BUN 36 H Creatinine 1.47 H Calcium 8.1 L <Rafael Davis - 03/10/18 09:30> Physical Exam Vital signs: Vital Signs 03/09/18 20:00 03/10/18 00:00 03/10/18 00:10 Temperature 97.6 F 98.1 F Pulse Rate 64 58 L 62 Respiratory Rate 18 15 Blood Pressure 120/93 H 114/86 Pulse Oximetry 99 97 03/10/18 04:00 03/10/18 08:00 03/10/18 12:00 Temperature 98 F 97.9 F 99.1 F Pulse Rate 64 66 60 Respiratory Rate 16 20 20 Blood Pressure 123/95 H 127/93 H 118/97 H Pulse Oximetry 95 98 95 Intake & Output 03/09/18 03/10/18 03/10/18 18:59 06:59 18:59 Intake Total 480 / 480 480 / 480 Output Total 2099 1200 / 1200 Balance -1620 / -1620 -720 / -720 Weight 88.8 kg Intake: Oral 480 / 480 480 / 480 Output: Urine 2099 1200 / 1200 Other: Date of Last Bowel Movement 03/09/18 03/09/18 # Bowel Movements 1 <Brannon Willard - 03/10/18 16:17> Vital Signs 03/09/18 12:00 03/09/18 16:00 03/09/18 20:00 Temperature 97.8 F 98.0 F 97.6 F Pulse Rate 69 73 64 Respiratory Rate 18 18 18 Blood Pressure 110/76 103/88 120/93 H Pulse Oximetry 99 100 99 03/10/18 00:00 03/10/18 00:10 03/10/18 04:00 Temperature 98.1 F 98 F Pulse Rate 58 L 62 64 Respiratory Rate 15 16 Blood Pressure 114/86 123/95 H Pulse Oximetry 97 95 Intake & Output 03/09/18 03/10/18 03/10/18 18:59 06:59 18:59 Intake Total 480 / 480 480 / 480 Output Total 2099 1200 / 1200 Balance -1620 / -1620 -720 / -720 Weight 88.8 kg Intake: Oral 480 / 480 480 / 480 Output: Urine 2099 1200 / 1200 Other: Date of Last Bowel Movement 03/09/18 # Bowel Movements 1 <Rafael Davis - 03/10/18 09:30> Narrative: GENERAL: Well-nourished, well-developed -[place] female sitting up in bed eating breakfast in no acute distress. SKIN: Warm and dry. No rash. HEENT: Atraumatic, normocephalic with extraocular motions intact. No rhinorrhea. No visible lymphadenopathy or jugulovenous distension appreciated. CARDIOVASCULAR: Regular rate and rhythm without obvious murmurs, gallops, or rubs. 2+ pulses in all four extremities. LifeVest in place. RESPIRATORY: Clear to auscultation bilaterally without obvious CRW. No increased work of breathing. No cough during exam. GASTROINTESTINAL: Abdomen soft, non-tender, nondistended with positive bowel sounds. No masses appreciated. MUSCULOSKELETAL: No cyanosis. 2+ edema throughout the lower extremities appreciated to just below the iliac crests, which is an improvement from yesterday's exam. Patient now on tender to palpation along both lower extremities at this time. Difficult to palpate PT/DP pulses secondary to edema. Appropriate capillary refill. Normal range of motion intact. NEURO/PSYCH: Afocal. Awake, alert, and oriented x3. Normal speech and judgement. <Rafael Davis - 03/10/18 09:38> Assessment and Plan - Assessment (1) Acute exacerbation of CHF (congestive heart failure) Code(s): I50.9 - Heart failure, unspecified Status: Acute (2) Acute kidney injury superimposed on CKD Code(s): N17.9 - Acute kidney failure, unspecified; N18.9 - Chronic kidney disease, unspecified Status: Acute (3) Hypokalemia Code(s): E87.6 - Hypokalemia Status: Acute (4) History of CVA (cerebrovascular accident) Code(s): Z86.73 - Personal history of transient ischemic attack (TIA), and cerebral infarction without residual deficits Status: Acute (5) Hypertension Code(s): I10 - Essential (primary) hypertension Status: Chronic (6) Nutrition, metabolism, and development symptoms Code(s): R63.8 - Other symptoms and signs concerning food and fluid intake Status: Acute <Brannon Willard - 03/10/18 16:17> (1) Acute exacerbation of CHF (congestive heart failure) Code(s): I50.9 - Heart failure, unspecified Status: Acute Plan: Patient admitted for acute on chronic systolic CHF exacerbation. -EKG: Sinus rhythm with noted PVCs, no significant ST changes. (Per medical team read) -CXR: Possible b/l costophrenic angle blunting due to effusion -BNP: >5000 -Most recent ECHO from 02/08 showing EF in the range of 20-25%, pulmonary arterial pressure of 77, mod to severe MVR, severe TVR, av sclerosis, severely dilated LV. -Telemetry with LifeVest in place; 7 beat run of V-Tach on telemetry; patient sleeping during episode -Low-salt diet less than 2 g per day. Fluid restrict to 1.5 L per day. -Strict Is and Os. Daily weights. Supplemental oxygen and monitor on pulse ox. -Encourage patient to sit up in bed with legs below chest or in chair with legs hanging down. -Consult placed to nephrology given patient needing diuresis and with acute on chronic kidney disease -Monitor I/Os and daily weights -Consult cardiology, patient known to Dr. Mae Medications: -Pt given Lasix 80 mg IV in ED -Stop Lasix 40 mg IV bid - Bumex 2mg IV TID; DC - Start Bumex 2mg PO Daily -Continue KCl at 20 mEq po daily -Coreg 25mg BID -Losartan 25mg daily ordered -Spironolactone 50mg daily ordered (2) Acute kidney injury superimposed on CKD Code(s): N17.9 - Acute kidney failure, unspecified; N18.9 - Chronic kidney disease, unspecified Status: Acute Plan: -Cr 1.87 on admission, baseline 0.7 per nephrology -Likely due to low renal perfusion pressure due to CHF -Consult nephrology as patient with CKD on diuresis as above (3) Hypokalemia Code(s): E87.6 - Hypokalemia Status: Acute Plan: Patient with hypokalemia likely related to diuretic use. -BMP: Potassium 3.2 Magnesium added to specimen and lab Medications: -Potassium 20 mEq daily -Added potassium 20 mEq now as well as 40 mEq today at 1600 (4) History of CVA (cerebrovascular accident) Code(s): Z86.73 - Personal history of transient ischemic attack (TIA), and cerebral infarction without residual deficits Status: Acute Plan: Patient with history of CVA -Patient currently anticoagulated on Coumadin. Per patient report dosing recently altered with 2 mg every Monday, today, Monday, and Monday with 4 mg on Monday and . -INR elevated to 3.8 on admission -INR decreased to 2.8 today -Resume home Coumadin (5) Hypertension Code(s): I10 - Essential (primary) hypertension Status: Chronic Plan: -Patient has h/o HTN per chart review, vitals wnl on admission -Continue to monitor -Medications as above -Clonidine 0.1 mg every 6 hours as needed for blood pressure greater than 180/ 110 (6) Nutrition, metabolism, and development symptoms Code(s): R63.8 - Other symptoms and signs concerning food and fluid intake Status: Acute Plan: -Fluids: per PO, fluid restriction to 1800 mL daily -Electrolytes: continue to monitor and replete as needed -Nutrition: Heart healthy diet, sodium restriction to 2gm daily -DVT ppx: Patient on warfarin, continue home dose -GI ppx: not indicated at this time -PPx: Tessalon Perles as needed for cough, Zofran as needed for nausea/vomiting , Tylenol as needed for fever/pain, constipation protocol, clonidine as needed for blood pressure greater than 180/110 -Incentive spirometry -Physical therapy consulted who recommends rehab placement, however patient would like to be discharged home with home health nursing <Rafael Davis - 03/10/18 15:17> - Attending Attestation Pt. examined and case discussed with resident physicians. I have read the above note and agree with the assessment and plan as discussed with me. I was involved in all medical decision making for this patient. Brannon Willard MD <Brannon Willard - 03/10/18 16:14> <Rafael Davis - Last Filed: 03/10/18 15:17> (1) Acute exacerbation of CHF (congestive heart failure) Qualifiers: Heart failure type: systolic Qualified Code(s): I50.23 - Acute on chronic systolic (congestive) heart failure <Brannon Willard - Last Filed: 03/10/18 16:17> (1) Acute exacerbation of CHF (congestive heart failure) Qualifiers: Heart failure type: systolic Qualified Code(s): I50.23 - Acute on chronic systolic (congestive) heart failure <Rafael Davis - Last Filed: 03/10/18 15:17> (1) Acute exacerbation of CHF (congestive heart failure) Qualifiers: Heart failure type: systolic Qualified Code(s): I50.23 - Acute on chronic systolic (congestive) heart failure <Brannon Willard - Last Filed: 03/10/18 16:17> (1) Acute exacerbation of CHF (congestive heart failure) Qualifiers: Heart failure type: systolic Qualified Code(s): I50.23 - Acute on chronic systolic (congestive) heart failure
[2018-03-10] MEDS: Potassium Chloride 10 MEQ ER Capsule PO SCH (10:10)
[2018-03-10] MEDS: Digoxin Inj 500 MCG/2 ML Ampul IV.PUSH SCH ×2 (13:40→22:01)
--- NOTE | 2018-03-10 14:21 | P.PNNP ---
Subjective Interval history: Patient with acute renal failure cardiorenal syndrome Physical Exam Vital signs: Vital Signs 03/09/18 16:00 03/09/18 20:00 03/10/18 00:00 Temperature 98.0 F 97.6 F 98.1 F Pulse Rate 73 64 58 L Respiratory Rate 18 18 15 Blood Pressure 103/88 120/93 H 114/86 Pulse Oximetry 100 99 97 03/10/18 00:10 03/10/18 04:00 03/10/18 08:00 Temperature 98 F Pulse Rate 62 64 55 L Respiratory Rate 16 Blood Pressure 123/95 H Pulse Oximetry 95 Intake & Output 03/09/18 03/10/18 03/10/18 18:59 06:59 18:59 Intake Total 480 / 480 480 / 480 Output Total 2100 / 2100 1200 / 1200 Balance -1620 / -1620 -720 / -720 Weight 88.8 kg Intake: Oral 480 / 480 480 / 480 Output: Urine 2100 / 2100 1200 / 1200 Other: Date of Last Bowel Movement 03/09/18 03/09/18 # Bowel Movements 1 - Constitutional no acute distress - Routine Respiratory Exam Present: decreased breath sounds - Routine Cardiovascular Exam Present: irregular rhythm - Routine Abdominal Exam Present: soft - Routine Extremities Exam Present: edema - Routine Skin Exam Present: dry Assessment and Plan - Assessment (1) Acute worsening of stage 3 chronic kidney disease Code(s): N18.3 - Chronic kidney disease, stage 3 (moderate) Status: Acute (2) Acute exacerbation of congestive heart failure Code(s): I50.9 - Heart failure, unspecified Status: Acute Qualifiers: Heart failure type: unspecified Qualified Code(s): I50.9 - Heart failure, unspecified - Plan Code Status: Creatinine 1.8 and stable on diuretic Bumex 2 mg p.o. daily Follow BMP
[2018-03-10] MEDS ORDERED: Potassium Chloride 10 MEQ ER Capsule PO ONE (16:00)
[2018-03-11 05:43] LABS: Prothrombin Time 29.9 sec (9.8-11.6)
[2018-03-11 06:04] LABS: Carbon Dioxide 33.2 meq/L (21.0-32.0); Magnesium 1.7 mg/dL (1.5-2.5); Phosphorus 2.4 mg/dL (2.5-4.9); Potassium 3.4 meq/L (3.5-5.1)
[2018-03-11 06:13] LABS: Free T4 (Free Thyroxine) 1.33 ng/dL (0.76-1.46); Thyroid Stimulating Hormone 1.9 uIU/mL (0.358-3.740)
[2018-03-11] MEDS: Spironolactone 50 MG Tablet PO SCH (08:39)
[2018-03-11] MEDS: Senna/Docusate Sodium 8.6/50 MG Tablet PO SCH ×2 (08:39→21:01)
[2018-03-11] MEDS: Potassium Chloride 10 MEQ ER Capsule PO SCH (08:39)
[2018-03-11] MEDS: Carvedilol 12.5 MG Tablet PO SCH ×2 (08:39→21:00)
[2018-03-11] MEDS ORDERED: Digoxin 125 MCG Tablet PO SCH (09:00)
--- NOTE | 2018-03-11 11:57 | P.PNFP ---
Subjective Interval history: Patient seen and examined this morning by medical team. No acute patient states that she feels "much better from her admission as she feels like she has lost over 20 pounds." She continues to endorse pain in her bilateral lower extremities due to "fullness" that is exacerbated when she is walking around her room. However, she does state that her symptoms have improved from her admission. She states that she continues to urinate quite frequently. Patient states that she would like to be discharged home "as soon as possible." Otherwise she has no acute complaints and denies any fevers, chills, shortness of breath, chest pain, NVD, abdominal pain, or calf tenderness. <Rafael Davis H - 03/11/18 11:57> Results - Labs Result diagrams: 03/09/18 07:05 03/11/18 04:23 <Brannon Willard - 03/11/18 12:42> Abnormal lab results 03/11/18 03/11/18 Range/Units 04:23 04:23 PT 29.9 H (9.8-11.6) sec Potassium 3.4 L (3.5-5.1) meq/L Carbon Dioxide 33.2 H (21.0-32.0) meq/L BUN 30 H (7-18) mg/dL Creatinine 1.29 H (0.50-1.00) mg/dL Estimated GFR 50 L (>89) mL/min Calcium 8.0 L (8.5-10.1) mg/dL Phosphorus 2.4 L (2.5-4.9) mg/dL BMP 03/11/18 04:23 Sodium 144 Potassium 3.4 L Chloride 103 Carbon Dioxide 33.2 H BUN 30 H Creatinine 1.29 H Calcium 8.0 L <Brannon Willard - 03/11/18 12:42> Abnormal lab results 03/11/18 03/11/18 Range/Units 04:23 04:23 PT 29.9 H (9.8-11.6) sec Potassium 3.4 L (3.5-5.1) meq/L Carbon Dioxide 33.2 H (21.0-32.0) meq/L BUN 30 H (7-18) mg/dL Creatinine 1.29 H (0.50-1.00) mg/dL Estimated GFR 50 L (>89) mL/min Calcium 8.0 L (8.5-10.1) mg/dL Phosphorus 2.4 L (2.5-4.9) mg/dL BMP 03/11/18 04:23 Sodium 144 Potassium 3.4 L Chloride 103 Carbon Dioxide 33.2 H BUN 30 H Creatinine 1.29 H Calcium 8.0 L <Rafael Davis H - 03/11/18 11:57> Physical Exam Vital signs: Vital Signs 03/10/18 16:00 03/10/18 19:45 03/10/18 20:00 Temperature 98.1 F 98.0 F Pulse Rate 65 64 66 Respiratory Rate 18 Blood Pressure 141/91 H 150/93 H Pulse Oximetry 97 96 03/10/18 20:35 03/10/18 23:50 03/11/18 00:00 Temperature 98.1 F Pulse Rate 64 63 64 Respiratory Rate 18 Blood Pressure 137/92 H Pulse Oximetry 98 03/11/18 04:00 03/11/18 08:00 Temperature 98.1 F 98.3 F Pulse Rate 60 62 Respiratory Rate 18 18 Blood Pressure 147/88 H 142/98 H Pulse Oximetry 96 96 Intake & Output 03/10/18 03/11/18 03/11/18 18:59 06:59 18:59 Intake Total 1044 / 1044 Output Total 3800 / 3800 Balance -2756 / -2756 Weight 83.2 kg Intake: Oral 1044 / 1044 Output: Urine 3800 / 3800 Other: # Voids 4 Date of Last Bowel Movement 03/09/18 03/09/18 03/09/18 # Bowel Movements 0 <Brannon Willard - 03/11/18 12:42> Vital Signs 03/10/18 12:00 03/10/18 16:00 03/10/18 19:45 Temperature 99.1 F 98.1 F Pulse Rate 60 65 64 Respiratory Rate 20 Blood Pressure 118/97 H 141/91 H Pulse Oximetry 95 97 03/10/18 20:00 03/10/18 20:35 03/10/18 23:50 Temperature 98.0 F Pulse Rate 66 64 63 Respiratory Rate 18 Blood Pressure 150/93 H Pulse Oximetry 96 03/11/18 00:00 03/11/18 04:00 03/11/18 08:00 Temperature 98.1 F 98.1 F 98.3 F Pulse Rate 64 60 62 Respiratory Rate 18 18 Blood Pressure 137/92 H 147/88 H 142/98 H Pulse Oximetry 98 96 96 Intake & Output 03/10/18 03/11/18 03/11/18 18:59 06:59 18:59 Intake Total 1044 / 1044 Output Total 3800 / 3800 Balance -2756 / -2756 Weight 83.2 kg Intake: Oral 1044 / 1044 Output: Urine 3800 / 3800 Other: # Voids 4 Date of Last Bowel Movement 03/09/18 03/09/18 03/09/18 # Bowel Movements 0 <Rafael Davis - 03/11/18 11:57> Narrative: GENERAL: Well-nourished, well-developed -[place] female sitting up in bed watching television in no acute distress. SKIN: Warm and dry. No rash. HEENT: Atraumatic, normocephalic with extraocular motions intact. No rhinorrhea. No visible lymphadenopathy or jugulovenous distension appreciated. CARDIOVASCULAR: Regular rate and rhythm without obvious murmurs, gallops, or rubs. 2+ pulses in all four extremities. LifeVest in place. RESPIRATORY: Clear to auscultation bilaterally without obvious CRW. No increased work of breathing. No cough during exam. GASTROINTESTINAL: Abdomen soft, non-tender, nondistended with positive bowel sounds. No masses appreciated. MUSCULOSKELETAL: No cyanosis. 2+ edema throughout the lower extremities appreciated to just below the iliac crests with edema noticeably softer which is an improvement from previous exams. Patient tender to palpation along both lower extremities at this time. Difficult to palpate PT/DP pulses secondary to edema. Appropriate capillary refill. Normal range of motion intact. Ambulating with assistance of rolled walker. NEURO/PSYCH: Afocal. Awake, alert, and oriented x3. Normal speech and judgement. <Rafael Davis - 03/11/18 11:57> Assessment and Plan - Assessment (1) Acute exacerbation of CHF (congestive heart failure) Code(s): I50.9 - Heart failure, unspecified Status: Acute (2) Acute kidney injury superimposed on CKD Code(s): N17.9 - Acute kidney failure, unspecified; N18.9 - Chronic kidney disease, unspecified Status: Acute (3) Hypokalemia Code(s): E87.6 - Hypokalemia Status: Acute (4) History of CVA (cerebrovascular accident) Code(s): Z86.73 - Personal history of transient ischemic attack (TIA), and cerebral infarction without residual deficits Status: Acute (5) Hypertension Code(s): I10 - Essential (primary) hypertension Status: Chronic (6) Nutrition, metabolism, and development symptoms Code(s): R63.8 - Other symptoms and signs concerning food and fluid intake Status: Acute <Brannon Willard - 03/11/18 12:42> (1) Acute exacerbation of CHF (congestive heart failure) Code(s): I50.9 - Heart failure, unspecified Status: Acute Plan: Patient admitted for acute on chronic systolic CHF exacerbation. -EKG: Sinus rhythm with noted PVCs, no significant ST changes. (Per medical team read) -CXR: Possible b/l costophrenic angle blunting due to effusion -BNP: >5000 -Most recent ECHO from 02/08 showing EF in the range of 20-25%, pulmonary arterial pressure of 77, mod to severe MVR, severe TVR, av sclerosis, severely dilated LV. -Telemetry with LifeVest in place; 7 beat run of V-Tach on telemetry; patient sleeping during episode -Low-salt diet less than 2 g per day. Fluid restrict to 1.5 L per day. -Strict Is and Os. Daily weights. Supplemental oxygen and monitor on pulse ox. -Encourage patient to sit up in bed with legs below chest or in chair with legs hanging down. -Consult placed to nephrology given patient needing diuresis and with acute on chronic kidney disease -Monitor I/Os and daily weights -Consult cardiology, patient known to Dr. Mae -Digoxin level ordered with electrolytes on 03/12/18 Medications: -Pt given Lasix 80 mg IV in ED -Stop Lasix 40 mg IV bid - Bumex 2mg IV TID; DC - Bumex 2mg PO Daily -Continue KCl at 20 mEq po daily -Coreg 25mg BID -Losartan 25mg daily ordered -Spironolactone 50mg daily ordered -Patient started on digoxin 125 mcg every other day, plan to increase to daily dosing with continued improved renal function (2) Acute kidney injury superimposed on CKD Code(s): N17.9 - Acute kidney failure, unspecified; N18.9 - Chronic kidney disease, unspecified Status: Acute Plan: -Cr 1.87 on admission, baseline 0.7 per nephrology -Likely due to low renal perfusion pressure due to CHF -Renal function continues to improve with continued diuresis -Consult nephrology as patient with CKD on diuresis as above -Cleared for DC with outpatient follow up (3) Hypokalemia Code(s): E87.6 - Hypokalemia Status: Acute Plan: Patient with hypokalemia likely related to diuretic use. -BMP: Potassium 3.4 Magnesium added to specimen and lab Medications: -Potassium 20 mEq daily -Added potassium 20 mEq now as well as 40 mEq today at 1400 (4) History of CVA (cerebrovascular accident) Code(s): Z86.73 - Personal history of transient ischemic attack (TIA), and cerebral infarction without residual deficits Status: Acute Plan: Patient with history of CVA -Patient currently anticoagulated on Coumadin. Per patient report dosing recently altered with 2 mg every Monday, , Monday, and Monday with 4 mg on Monday and . -INR elevated to 3.8 on admission -INR decreased to 2.8 today -Resume home Coumadin (5) Hypertension Code(s): I10 - Essential (primary) hypertension Status: Chronic Plan: -Patient has h/o HTN per chart review, vitals wnl on admission -Continue to monitor -Medications as above -Clonidine 0.1 mg every 6 hours as needed for blood pressure greater than 180/ 110 (6) Nutrition, metabolism, and development symptoms Code(s): R63.8 - Other symptoms and signs concerning food and fluid intake Status: Acute Plan: -Fluids: per PO, fluid restriction to 1800 mL daily -Electrolytes: continue to monitor and replete as needed -Nutrition: Heart healthy diet, sodium restriction to 2gm daily -DVT ppx: Patient on warfarin, continue home dose -GI ppx: not indicated at this time -PPx: Tessalon Perles as needed for cough, Zofran as needed for nausea/vomiting , Tylenol as needed for fever/pain, constipation protocol, clonidine as needed for blood pressure greater than 180/110 -Incentive spirometry -Physical therapy consulted who recommends rehab placement, however patient would like to be discharged home with home health nursing <Rafael Davis - 03/11/18 11:47> - Attending Attestation Pt. examined and case discussed with resident physicians. I have read the above note and agree with the assessment and plan as discussed with me. I was involved in all medical decision making for this patient. Brannon Willard MD <Brannon Willard - 03/11/18 12:42> <Rafael Davis H - Last Filed: 03/11/18 11:47> (1) Acute exacerbation of CHF (congestive heart failure) Qualifiers: Heart failure type: systolic Qualified Code(s): I50.23 - Acute on chronic systolic (congestive) heart failure <Brannon Willard - Last Filed: 03/11/18 12:42> (1) Acute exacerbation of CHF (congestive heart failure) Qualifiers: Heart failure type: systolic Qualified Code(s): I50.23 - Acute on chronic systolic (congestive) heart failure <Rafael Davis H - Last Filed: 03/11/18 11:47> (1) Acute exacerbation of CHF (congestive heart failure) Qualifiers: Heart failure type: systolic Qualified Code(s): I50.23 - Acute on chronic systolic (congestive) heart failure <Brannon Willard - Last Filed: 03/11/18 12:42> (1) Acute exacerbation of CHF (congestive heart failure) Qualifiers: Heart failure type: systolic Qualified Code(s): I50.23 - Acute on chronic systolic (congestive) heart failure
[2018-03-11] MEDS ORDERED: Potassium Phosphate Inj 15 MMOL in Sodium Chlor 0.9% Inj 250 ML IV.SIG ONE (13:00)
--- NOTE | 2018-03-11 16:35 | P.PNNP ---
Subjective Interval history: Patient is doing well Physical Exam Vital signs: Vital Signs 03/10/18 19:45 03/10/18 20:00 03/10/18 20:35 Temperature 98.0 F Pulse Rate 64 66 64 Respiratory Rate 18 Blood Pressure 150/93 H Pulse Oximetry 96 03/10/18 23:50 03/11/18 00:00 03/11/18 04:00 Temperature 98.1 F 98.1 F Pulse Rate 63 64 60 Respiratory Rate 18 18 Blood Pressure 137/92 H 147/88 H Pulse Oximetry 98 96 03/11/18 08:00 03/11/18 12:00 Temperature 98.3 F Pulse Rate 62 60 Respiratory Rate 18 Blood Pressure 142/98 H Pulse Oximetry 96 Intake & Output 03/10/18 03/11/18 03/11/18 18:59 06:59 18:59 Intake Total 1044 / 1044 Output Total 3800 / 3800 Balance -2756 / -2756 Weight 83.2 kg Intake: Oral 1044 / 1044 Output: Urine 3800 / 3800 Other: # Voids 4 Date of Last Bowel Movement 03/09/18 03/09/18 03/09/18 # Bowel Movements 0 Narrative: GENERAL: Well-nourished, well-developed -[place] female sitting up in bed watching television in no acute distress. SKIN: Warm and dry. No rash. HEENT: Atraumatic, normocephalic with extraocular motions intact. No rhinorrhea. No visible lymphadenopathy or jugulovenous distension appreciated. CARDIOVASCULAR: Regular rate and rhythm without obvious murmurs, gallops, or rubs. 2+ pulses in all four extremities. LifeVest in place. RESPIRATORY: Clear to auscultation bilaterally without obvious CRW. No increased work of breathing. No cough during exam. GASTROINTESTINAL: Abdomen soft, non-tender, nondistended with positive bowel sounds. No masses appreciated. MUSCULOSKELETAL: No cyanosis. 2+ edema throughout the lower extremities appreciated to just below the iliac crests with edema noticeably softer which is an improvement from previous exams. Patient tender to palpation along both lower extremities at this time. Difficult to palpate PT/DP pulses secondary to edema. Appropriate capillary refill. Normal range of motion intact. Ambulating with assistance of rolled walker. NEURO/PSYCH: Afocal. Awake, alert, and oriented x3. Normal speech and judgement. Assessment and Plan - Assessment (1) Acute worsening of stage 3 chronic kidney disease Code(s): N18.3 - Chronic kidney disease, stage 3 (moderate) Status: Acute (2) Acute exacerbation of congestive heart failure Code(s): I50.9 - Heart failure, unspecified Status: Acute Qualifiers: Heart failure type: unspecified Qualified Code(s): I50.9 - Heart failure, unspecified - Plan Patient is stable on Bumex 2 mg daily and potassium supplement Creatinine improved Potassium 3.4 Dr. López will follow
[2018-03-12 05:16] LABS: Hemoglobin 9.6 gm/dL (11.6-15.3); Mean Corpuscular HGB Conc 32.9 % (32.0-36.0); Mean Corpuscular Hemoglobin 24.7 pg (27.0-34.0); Mean Corpuscular Volume 75.2 fL (80.0-100.0); Platelet Count 210 th/mm3 (150-450); Red Blood Count 3.86 mil/mm3 (4.00-5.30); Red Cell Distribution Width 20.4 % (11.6-17.2); White Blood Count 4.1 th/mm3 (4.0-11.0)
[2018-03-12 05:23] LABS: INR 2.7 Ratio; Prothrombin Time 27.4 sec (9.8-11.6)
[2018-03-12 05:47] LABS: Carbon Dioxide 31.4 meq/L (21.0-32.0)
[2018-03-12 06:01] LABS: Digoxin 1.5 ng/mL (0.8-2.0)
[2018-03-12] MEDS: Spironolactone 50 MG Tablet PO SCH (09:41)
[2018-03-12] MEDS: Carvedilol 12.5 MG Tablet PO SCH (09:41)
[2018-03-12] MEDS: Potassium Chloride 10 MEQ ER Capsule PO SCH (09:42)
[2018-03-12] MEDS: Senna/Docusate Sodium 8.6/50 MG Tablet PO SCH (09:42)
--- NOTE | 2018-03-12 10:26 | P.PNNP ---
Subjective Interval history: Renal function, weight, and urine output have improved. Wanting to be discharged. <Isela Shelley - Last Filed: 03/12/18 10:24> Physical Exam Vital signs: Vital Signs 03/11/18 12:00 03/11/18 16:00 03/11/18 20:00 Temperature 97.8 F 98.7 F 99.1 F Pulse Rate 68 56 L 64 Respiratory Rate 18 18 18 Blood Pressure 139/92 H 135/91 H 144/84 H Pulse Oximetry 100 98 96 03/12/18 00:00 03/12/18 04:00 03/12/18 05:46 Temperature 98 F 98.3 F Pulse Rate 60 61 57 L Respiratory Rate 18 18 Blood Pressure 137/83 145/93 H Pulse Oximetry 98 96 03/12/18 08:00 Temperature 98.2 F Pulse Rate 64 Respiratory Rate 20 Blood Pressure 131/84 Pulse Oximetry 96 Intake & Output 03/11/18 03/12/18 03/12/18 18:59 06:59 18:59 Intake Total 735 / 735 240 / 240 Output Total 4000 / 4000 1400 / 1400 2 / 2 Balance -3265 / -3265 -1160 / -1160 -2 / -2 Weight 82 kg Intake: IV 255 / 255 Potassium Phosphate Inj 15 MMOL 255 / 255 In NS Inj 250 ML @ 85 mls/hr IV.SIG ONCE ONE Rx#:[id number] Oral 480 / 480 240 / 240 Output: Urine 4000 / 4000 1400 / 1400 Stool / Other: Date of Last Bowel Movement 03/09/18 03/12/18 # Bowel Movements 0 - Constitutional no acute distress, cooperative - Routine HEENT Exam Head: Present: normocephalic - Routine Neck Exam Present: supple, full ROM, JVD - Routine Respiratory Exam Present: rales. Absent: accessory muscle use - Routine Cardiovascular Exam Present: S1, S2, murmur - Routine Abdominal Exam Present: soft, normoactive bowel sounds - Routine Extremities Exam Present: edema, pulses intact, tenderness - Routine Skin Exam Present: intact, dry, warm - Routine Neurological Exam Present: alert, oriented X3, CN II-XII intact, moving all extremities - Detailed Neurological Exam: Coma Scale Eye Opening: Spontaneous Verbal Response: Oriented Motor Response: Obey commands Kindra Coma Scale Total: 15 - Routine Psychiatric Exam Present: normal affect, normal thought process <Isela Shelley - Last Filed: 03/12/18 10:24> Vital signs: Vital Signs 03/11/18 12:00 03/11/18 16:00 03/11/18 20:00 Temperature 97.8 F 98.7 F 99.1 F Pulse Rate 68 56 L 64 Respiratory Rate 18 18 18 Blood Pressure 139/92 H 135/91 H 144/84 H Pulse Oximetry 100 98 96 03/12/18 00:00 03/12/18 04:00 03/12/18 05:46 Temperature 98 F 98.3 F Pulse Rate 60 61 57 L Respiratory Rate 18 18 Blood Pressure 137/83 145/93 H Pulse Oximetry 98 96 03/12/18 08:00 Temperature 98.2 F Pulse Rate 63 Respiratory Rate 20 Blood Pressure 131/84 Pulse Oximetry 96 Intake & Output 03/11/18 03/12/18 03/12/18 18:59 06:59 18:59 Intake Total 735 / 735 240 / 240 Output Total 4000 / 4000 1400 / 1400 2 / 2 Balance -3265 / -3265 -1160 / -1160 -2 / -2 Weight 82 kg Intake: IV 255 / 255 Potassium Phosphate Inj 15 MMOL 255 / 255 In NS Inj 250 ML @ 85 mls/hr IV.SIG ONCE ONE Rx#:[id number] Oral 480 / 480 240 / 240 Output: Urine 4000 / 4000 1400 / 1400 Stool Other: Date of Last Bowel Movement 03/09/18 03/12/18 # Bowel Movements 0 <Pedro López - Last Filed: 03/12/18 11:55> Assessment and Plan - Assessment (1) Acute worsening of stage 3 chronic kidney disease Code(s): N18.3 - Chronic kidney disease, stage 3 (moderate) Status: Acute Plan: Her baseline creatinine is 0.7. ARIANA is due to increased renal vein pressure from CHF exacerbation. Renal function improving. Diuresing well, now on Bumex 2 mg PO daily with Spironolactone 50 daily. Tolerating well. Continue to monitor renal function. Monitor urine output, weight, fluid status. Avoid nephrotoxins. (2) Acute exacerbation of congestive heart failure Code(s): I50.9 - Heart failure, unspecified Status: Acute Qualifiers: Heart failure type: unspecified Qualified Code(s): I50.9 - Heart failure, unspecified Plan: Cardiology following. Diuresis as above. Continue Coreg. Life vest in place. Low Na diet ordered. - Plan Cleared for discharge from renal perspective. <Isela Shelley - Last Filed: 03/12/18 10:24> - Assessment (1) Acute worsening of stage 3 chronic kidney disease Code(s): N18.3 - Chronic kidney disease, stage 3 (moderate) Status: Acute (2) Acute exacerbation of congestive heart failure Code(s): I50.9 - Heart failure, unspecified Status: Acute Qualifiers: Heart failure type: unspecified Qualified Code(s): I50.9 - Heart failure, unspecified - Attending Attestation patient was seen and examined. Diuresing well, renal function has improved. We will sign off at this time. <Pedro López - Last Filed: 03/12/18 11:55>
--- NOTE | 2018-03-12 10:30 | P.PNFP ---
Subjective Interval history: Patient seen and examined this morning. No acute events overnight per nursing staff. Patient states that she feels "wonderful" and desires to be discharged home today. She does state that her edema is much improved and currently nontender. We discussed that her digoxin level is slightly elevated and further discussion with cardiology would be needed prior to discharge. Otherwise she has no acute complaints and denies a complete review of systems including but not limited to any fevers, chills, shortness of breath, chest pain , NVD, or abdominal pain. Patient was thoroughly educated on medication compliance and importance of close outpatient follow-up with nephrology, cardiology, and her PCP with all questions answered. <Rafael Davis H - 03/12/18 11:03> Results - Labs Result diagrams: 03/12/18 04:07 03/12/18 04:07 <Isela Cardenas M - 03/14/18 17:23> Abnormal lab results 03/12/18 03/12/18 03/12/18 Range/Units 04:07 04:07 04:07 RBC 3.86 L (4.00-5.30) mil/mm3 Hgb 9.6 L (11.6-15.3) gm/dL Hct 29.0 L (35.0-46.0) % MCV 75.2 L (80.0-100.0) fL MCH 24.7 L (27.0-34.0) pg RDW 20.4 H (11.6-17.2) % PT 27.4 H (9.8-11.6) sec BUN 23 H (7-18) mg/dL Creatinine 1.15 H (0.50-1.00) mg/dL Estimated GFR 57 L (>89) mL/min Random Glucose 63 L (74-106) mg/dL Calcium 8.0 L (8.5-10.1) mg/dL Short CBC 03/12/18 Range/Units 04:07 WBC 4.1 (4.0-11.0) th/mm3 Hgb 9.6 L (11.6-15.3) gm/dL Hct 29.0 L (35.0-46.0) % Plt Count 210 (150-450) th/mm3 BMP 03/12/18 04:07 Sodium 143 Potassium 4.0 Chloride 103 Carbon Dioxide 31.4 BUN 23 H Creatinine 1.15 H Calcium 8.0 L <RyanRafael - 03/12/18 10:30> Physical Exam Vital signs: Vital Signs 03/11/18 12:00 03/11/18 16:00 03/11/18 20:00 Temperature 97.8 F 98.7 F 99.1 F Pulse Rate 68 56 L 64 Respiratory Rate 18 18 18 Blood Pressure 139/92 H 135/91 H 144/84 H Pulse Oximetry 100 98 96 03/12/18 00:00 03/12/18 04:00 03/12/18 05:46 Temperature 98 F 98.3 F Pulse Rate 60 61 57 L Respiratory Rate 18 18 Blood Pressure 137/83 145/93 H Pulse Oximetry 98 96 03/12/18 08:00 Temperature 98.2 F Pulse Rate 64 Respiratory Rate 20 Blood Pressure 131/84 Pulse Oximetry 96 Intake & Output 03/11/18 03/12/18 03/12/18 18:59 06:59 18:59 Intake Total 735 / 735 240 / 240 Output Total 4000 / 4000 1400 / 1400 2 / 2 Balance -3265 / -3265 -1160 / -1160 -2 / -2 Weight 82 kg Intake: IV 255 / 255 Potassium Phosphate Inj 15 MMOL 255 / 255 In NS Inj 250 ML @ 85 mls/hr IV.SIG ONCE ONE Rx#:[id number] Oral 480 / 480 240 / 240 Output: Urine 4000 / 4000 1400 / 1400 Stool Other: Date of Last Bowel Movement 03/09/18 03/12/18 # Bowel Movements 0 <Rafael Davis - 03/12/18 10:30> Narrative: GENERAL: Well-nourished, well-developed -[place]ian female sitting up in bed watching television in no acute distress. SKIN: Warm and dry. No rash. HEENT: Atraumatic, normocephalic with extraocular motions intact. No rhinorrhea. No visible lymphadenopathy or jugulovenous distension appreciated. CARDIOVASCULAR: Regular rate and rhythm without obvious murmurs, gallops, or rubs. 2+ pulses in all four extremities. LifeVest in place. RESPIRATORY: Clear to auscultation bilaterally without obvious CRW. No increased work of breathing. No cough during exam. GASTROINTESTINAL: Abdomen soft, non-tender, nondistended with positive bowel sounds. No masses appreciated. MUSCULOSKELETAL: No cyanosis. 2+ edema throughout the lower extremities appreciated to the mid-femur with edema noticeably softer which is an improvement from previous exams. Patient non-tender to palpation along both lower extremities at this time. Difficult to palpate PT/DP pulses secondary to edema. Appropriate capillary refill. Normal range of motion intact. Ambulating with assistance of rolled walker. NEURO/PSYCH: Afocal. Awake, alert, and oriented x3. Normal speech and judgement. <Rafael Davis - 03/12/18 11:03> - Urinary Catheter Management Indwelling Urethral Catheter Cath placed during this visit: no <Isela Cardenas - 03/14/18 17:23> no <DavisRafael - 03/13/18 12:06> Assessment and Plan - Assessment (1) Acute exacerbation of CHF (congestive heart failure) Code(s): I50.9 - Heart failure, unspecified Status: Acute (2) Acute kidney injury superimposed on CKD Code(s): N17.9 - Acute kidney failure, unspecified; N18.9 - Chronic kidney disease, unspecified Status: Acute (3) Hypokalemia Code(s): E87.6 - Hypokalemia Status: Acute (4) History of CVA (cerebrovascular accident) Code(s): Z86.73 - Personal history of transient ischemic attack (TIA), and cerebral infarction without residual deficits Status: Acute (5) Hypertension Code(s): I10 - Essential (primary) hypertension Status: Chronic (6) Nutrition, metabolism, and development symptoms Code(s): R63.8 - Other symptoms and signs concerning food and fluid intake Status: Acute <Isela Cardenas - 03/14/18 17:23> (1) Acute exacerbation of CHF (congestive heart failure) Code(s): I50.9 - Heart failure, unspecified Status: Acute Plan: Patient admitted for acute on chronic systolic CHF exacerbation. -EKG: Sinus rhythm with noted PVCs, no significant ST changes. (Per medical team read) -CXR: Possible b/l costophrenic angle blunting due to effusion -BNP: >5000 -Most recent ECHO from 02/08 showing EF in the range of 20-25%, pulmonary arterial pressure of 77, mod to severe MVR, severe TVR, av sclerosis, severely dilated LV. -Telemetry with LifeVest in place; 7 beat run of V-Tach on telemetry; patient sleeping during episode -Low-salt diet less than 2 g per day. Fluid restrict to 1.5 L per day. -Strict Is and Os. Daily weights. Supplemental oxygen and monitor on pulse ox. -Encourage patient to sit up in bed with legs below chest or in chair with legs hanging down. -Consult placed to nephrology given patient needing diuresis and with acute on chronic kidney disease -Monitor I/Os and daily weights -Consult cardiology, patient known to Dr. Mae -Digoxin level: 1.5 Medications: -Pt given Lasix 80 mg IV in ED -Stop Lasix 40 mg IV bid - Bumex 2mg IV TID; DC - Bumex 2mg PO Daily -Continue KCl at 20 mEq po daily -Coreg 25mg BID -Losartan 25mg BID ordered -Spironolactone 50mg daily ordered -Patient started on digoxin 125 mcg every other day, DW Dr. Mae, patient to DC digoxin due to renal function and follow up as outpatient (2) Acute kidney injury superimposed on CKD Code(s): N17.9 - Acute kidney failure, unspecified; N18.9 - Chronic kidney disease, unspecified Status: Acute Plan: -Cr 1.87 on admission, baseline 0.7 per nephrology -Likely due to low renal perfusion pressure due to CHF -Renal function continues to improve with continued diuresis -Consult nephrology as patient with CKD on diuresis as above -Cleared for DC with outpatient follow up (3) Hypokalemia Code(s): E87.6 - Hypokalemia Status: Acute Plan: Patient with hypokalemia likely related to diuretic use. Magnesium WNL Medications: -Potassium 20 mEq daily (4) History of CVA (cerebrovascular accident) Code(s): Z86.73 - Personal history of transient ischemic attack (TIA), and cerebral infarction without residual deficits Status: Acute Plan: Patient with history of CVA -Patient currently anticoagulated on Coumadin. Per patient report dosing recently altered with 2 mg every Monday, , Monday, and Monday with 4 mg on Monday and . -INR elevated to 3.8 on admission -INR 2.7 on 03/12/18 -Resume home Coumadin (5) Hypertension Code(s): I10 - Essential (primary) hypertension Status: Chronic Plan: -Patient has h/o HTN per chart review, vitals wnl on admission -Continue to monitor -Medications as above -Clonidine 0.1 mg every 6 hours as needed for blood pressure greater than 180/ 110 (6) Nutrition, metabolism, and development symptoms Code(s): R63.8 - Other symptoms and signs concerning food and fluid intake Status: Acute Plan: -Fluids: per PO, fluid restriction to 1800 mL daily -Electrolytes: continue to monitor and replete as needed -Nutrition: Heart healthy diet, sodium restriction to 2gm daily -DVT ppx: Patient on warfarin, continue home dose -GI ppx: not indicated at this time -PPx: Tessalon Perles as needed for cough, Zofran as needed for nausea/vomiting , Tylenol as needed for fever/pain, constipation protocol, clonidine as needed for blood pressure greater than 180/110 -Incentive spirometry -Physical therapy consulted who recommends rehab placement, however patient would like to be discharged home with home health nursing <Rafael Davis - 03/13/18 12:05> - Attending Attestation The exam, history, and the medical decision-making described in the above note were completed with the assistance of the resident physician. I reviewed and agree with the findings presented. I attest that I had a [id number] encounter with the patient on the same day, and personally performed and documented my assessment and findings in the medical record. 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 <Isela Cardenas - 03/14/18 17:23> <Rafael Davis - Last Filed: 03/13/18 12:05> (1) Acute exacerbation of CHF (congestive heart failure) Qualifiers: Heart failure type: systolic Qualified Code(s): I50.23 - Acute on chronic systolic (congestive) heart failure <Isela Cardenas - Last Filed: 03/14/18 17:23> (1) Acute exacerbation of CHF (congestive heart failure) Qualifiers: Heart failure type: systolic Qualified Code(s): I50.23 - Acute on chronic systolic (congestive) heart failure <Rafael Davis - Last Filed: 03/13/18 12:05> (1) Acute exacerbation of CHF (congestive heart failure) Qualifiers: Heart failure type: systolic Qualified Code(s): I50.23 - Acute on chronic systolic (congestive) heart failure <Isela Cardenas - Last Filed: 03/14/18 17:23> (1) Acute exacerbation of CHF (congestive heart failure) Qualifiers: Heart failure type: systolic Qualified Code(s): I50.23 - Acute on chronic systolic (congestive) heart failure
--- NOTE | 2018-03-12 13:49 | P.PNCA ---
Subjective Interval history: Patient denies any chest pain, pressure, palpitations, dizziness or shortness of breath. Patient states that her edema in the lower extremities is improving a great deal and that she feels great. Physical Exam Vital signs: Vital Signs 03/11/18 16:00 03/11/18 20:00 03/12/18 00:00 Temperature 98.7 F 99.1 F 98 F Pulse Rate 56 L 64 60 Respiratory Rate 18 18 18 Blood Pressure 135/91 H 144/84 H 137/83 Pulse Oximetry 98 96 98 03/12/18 04:00 03/12/18 05:46 03/12/18 08:00 Temperature 98.3 F 98.2 F Pulse Rate 61 57 L 63 Respiratory Rate 18 20 Blood Pressure 145/93 H 131/84 Pulse Oximetry 96 96 03/12/18 12:00 Temperature 99.1 F Pulse Rate 61 Respiratory Rate 20 Blood Pressure 140/83 Pulse Oximetry 97 Intake & Output 03/11/18 03/12/18 03/12/18 18:59 06:59 18:59 Intake Total 735 / 735 240 / 240 Output Total 4000 / 4000 1400 / 1400 2 / 2 Balance -3265 / -3265 -1160 / -1160 -2 / -2 Weight 82 kg Intake: IV 255 / 255 Potassium Phosphate Inj 15 MMOL 255 / 255 In NS Inj 250 ML @ 85 mls/hr IV.SIG ONCE ONE Rx#:[id number] Oral 480 / 480 240 / 240 Output: Urine 4000 / 4000 1400 / 1400 Stool / Other: Date of Last Bowel Movement 03/09/18 03/12/18 # Bowel Movements 0 - Constitutional no acute distress - Routine HEENT Exam Head: Present: normocephalic Eye: Present: PERRL ENT: Present: mucous membranes moist - Routine Neck Exam Present: full ROM - Routine Respiratory Exam Present: CTA bilaterally - Routine Cardiovascular Exam Present: S1, S2. Absent: murmur, gallop, rubs - Routine Abdominal Exam Present: soft - Routine Extremities Exam Present: edema, full ROM, pulses intact, normal capillary refill. Absent: cyanosis, clubbing Comments: 2+ edema LE that is improving - Routine Skin Exam Present: intact - Routine Neurological Exam Present: oriented X3 - Detailed Neurological Exam: Coma Scale Eye Opening: Spontaneous Verbal Response: Oriented Motor Response: Obey commands Kindra Coma Scale Total: 15 - Routine Psychiatric Exam Present: normal affect Assessment and Plan - Assessment (1) Acute exacerbation of CHF (congestive heart failure) Code(s): I50.9 - Heart failure, unspecified Status: Acute (2) Fluid overload Code(s): E87.70 - Fluid overload, unspecified Status: Acute (3) CKD (chronic kidney disease) Code(s): N18.9 - Chronic kidney disease, unspecified Status: Deleted (4) Hypertension Code(s): I10 - Essential (primary) hypertension Status: Chronic (5) Acute worsening of stage 3 chronic kidney disease Code(s): N18.3 - Chronic kidney disease, stage 3 (moderate) Status: Acute (6) Acute exacerbation of congestive heart failure Code(s): I50.9 - Heart failure, unspecified Status: Acute (7) Supratherapeutic INR Code(s): R79.1 - Abnormal coagulation profile Status: Acute - Plan Renal function is improving. Edema is improving, continue Bumex as per nephrology. Patient digoxin level is 1.5, recommend to discontinue due to high risk of dig toxicity. Continue with current cardiac treatment plan. OK to discharge home as planned. Will follow patient during hospitalization and in office post discharge. The patient was referred to CHF clinic at [facility] where she will be seen as outpatient after discharge. The patient was seen and evaluated by Dr. aMe who participated in care, management and decision-making. - Attending Attestation Patient seen and examined. I reviewed and agree with the evaluation and plan as presented. Discontinue digoxin due to high risk of toxicity. OK to discharge home. (1) Acute exacerbation of CHF (congestive heart failure) Qualifiers: Heart failure type: systolic Qualified Code(s): I50.23 - Acute on chronic systolic (congestive) heart failure (2) Fluid overload Qualifiers: Hypervolemia type: unspecified Qualified Code(s): E87.70 - Fluid overload, unspecified (6) Acute exacerbation of congestive heart failure Qualifiers: Heart failure type: unspecified Qualified Code(s): I50.9 - Heart failure, unspecified
--- NOTE | 2018-03-12 16:46 | P.DCO ---
- Physical Therapy Order: Evaluate and treat, Improve ambulation, Strength and gait training - Home Health Nursing Order: Medical education, Signs/symptoms of disease process, CHF education, Medication education-adverse effect, Nursing assessment with vital signs - Certification I have seen patient Carla Funes on 03/12/18. My clinical findings support the need for the requested home health care services because: Limited mobility due to disease progression, Patient has SOB, Deconditioned with increased weakness, Medication compliance is questionable, Limited ability to care for self, High risk of falls I certify that my clinical findings support that this patient is homebound because: Unsteady gait/balance, Poor cardiac reserve
--- NOTE | 2018-03-12 16:47 | P.DS ---
Date of admission: 03/05/18 21:13 Primary care physician: Melissa Monreal MD, R3 Brief History from admission: 67-year-old female presenting with an acute on chronic CHF exacerbation. She has a history of severe CHF with an EF of 20-25% as well as consistently wearing a life vest. She is followed by Dr. Mae of cardiology and has been referred to a specialist for her cardiomyopathy. She states that she recently had issues with nausea and vomiting, unable to hold down her Coreg or Lasix for approximately 1 week but was able to hold down liquids. She started feeling better and started taking her medications, was back on her Coreg and Lasix for 2 days and then developed progressive lower extremity swelling and edema as well as some shortness of breath. She denies fevers or chills, she denies chest pain or palpitations, she denies diarrhea or other abdominal discomfort. DS: Diagnosis - Discharge Diagnosis (1) Acute exacerbation of CHF (congestive heart failure) Status: Acute (2) Acute kidney injury superimposed on CKD Status: Acute (3) Hypokalemia Status: Resolved (4) History of CVA (cerebrovascular accident) Status: Chronic (5) Hypertension Status: Chronic (6) Nutrition, metabolism, and development symptoms Status: Acute DS: Medications - Discharge Medications Prescriptions: bumetanide 2 mg PO DAILY #90 tab losartan [Cozaar] 25 mg PO BID #180 tab spironolactone 50 mg PO DAILY #90 tab DS: Summary Hospital Course: Patient was admitted for acute on chronic CHF exacerbation and administered IV Lasix upon admission. Patient was then found to have acute kidney injury on chronic kidney disease likely secondary to renal hypoperfusion due to her acute on chronic CHF exacerbation. Patient was started on losartan and spironolactone which was tolerated well. Patient was further diuresed as she was changed from Lasix to Bumex 2 mg 3 times a day. Patient responded well with symptomatic improvement and was transitioned to Bumex 2 mg p.o. daily. All other home medications were continued at this time. Patient was educated on a low salt, low fluid diet to assist with her CHF symptoms. Patient was discharged home with referral for home health physical therapy as she refuses to be discharged to a correction facility for continued rehabilitation. Patient to follow-up with her PCP, cardiology, and nephrology for further management in the coming week. Per cardiology, patient has appointment with CHF clinic in [place] in March. Of note, patient was initially started on digoxin by cardiology, however after review of patient's renal function cardiology discontinued her digoxin prior to discharge. As the medication was discontinued before discharge, patient will not be continued on digoxin as an outpatient. - Time Spent with Patient Total time spent providing and/or coordinating discharge services: Less than 30 minutes - Quality: VTE Deep Vein Thrombosis/Pulmonary Embolism Present on Admission: No Exam Vital signs: Vital Signs 03/11/18 20:00 03/12/18 00:00 03/12/18 04:00 Temperature 99.1 F 98 F 98.3 F Pulse Rate 64 60 61 Respiratory Rate 18 18 18 Blood Pressure 144/84 H 137/83 145/93 H Pulse Oximetry 96 98 96 03/12/18 05:46 03/12/18 08:00 03/12/18 12:00 Temperature 98.2 F 99.1 F Pulse Rate 57 L 63 61 Respiratory Rate 20 20 Blood Pressure 131/84 140/83 Pulse Oximetry 96 97 03/12/18 16:00 Temperature 98.1 F Pulse Rate 61 Respiratory Rate 20 Blood Pressure 135/88 Pulse Oximetry 96 Intake & Output 03/11/18 03/12/18 03/12/18 18:59 06:59 18:59 Intake Total 735 / 735 240 / 240 720 / 720 Output Total 4000 / 4000 1400 / 1400 1502 / 1502 Balance -3265 / -3265 -1160 / -1160 -782 / -782 Weight 82 kg Intake: IV 255 / 255 Potassium Phosphate Inj 15 MMOL 255 / 255 In NS Inj 250 ML @ 85 mls/hr IV.SIG ONCE ONE Rx#:[id number] Oral 480 / 480 240 / 240 720 / 720 Output: Urine 4000 / 4000 1400 / 1400 1501 / 1501 Stool / Other: Date of Last Bowel Movement 03/09/18 03/12/18 # Bowel Movements 0 Narrative: GENERAL: Well-nourished, well-developed -[place] female sitting up in bed watching television in no acute distress. SKIN: Warm and dry. No rash. HEENT: Atraumatic, normocephalic with extraocular motions intact. No rhinorrhea. No visible lymphadenopathy or jugulovenous distension appreciated. CARDIOVASCULAR: Regular rate and rhythm without obvious murmurs, gallops, or rubs. 2+ pulses in all four extremities. LifeVest in place. RESPIRATORY: Clear to auscultation bilaterally without obvious CRW. No increased work of breathing. No cough during exam. GASTROINTESTINAL: Abdomen soft, non-tender, nondistended with positive bowel sounds. No masses appreciated. MUSCULOSKELETAL: No cyanosis. 2+ edema throughout the lower extremities appreciated to the mid-femur with edema noticeably softer which is an improvement from previous exams. Patient non-tender to palpation along both lower extremities at this time. Difficult to palpate PT/DP pulses secondary to edema. Appropriate capillary refill. Normal range of motion intact. Ambulating with assistance of rolled walker. NEURO/PSYCH: Afocal. Awake, alert, and oriented x3. Normal speech and judgement. Results Procedures completed during hospitalization: N/A Labs on day of discharge: Labs from last 24 hours 03/12/18 03/12/18 03/12/18 04:07 04:07 04:07 WBC 4.1 RBC 3.86 L Hgb 9.6 L Hct 29.0 L MCV 75.2 L MCH 24.7 L MCHC 32.9 RDW 20.4 H Plt Count 210 MPV 10.0 PT 27.4 H INR 2.7 Sodium 143 Potassium 4.0 Chloride 103 Carbon Dioxide 31.4 Anion Gap 9 BUN 23 H Creatinine 1.15 H Estimated GFR 57 L Random Glucose 63 L Calcium 8.0 L Digoxin 1.5 - Impressions ITS Impressions Venous Doppler Study 03/05/18 18:29 CONCLUSION: 1. The study is negative for bilateral lower extremity deep venous thrombosis. Chest X-Ray 03/05/18 18:31 CONCLUSION: The only new finding is questionable bilateral cardiophrenic angle blunting suggesting possible pleural effusions. May consider performing a good quality PA and lateral view of the chest in erect position for further characterization. The lungs are clear. Discharge Plan - Discharge Disposition Patient Disposition: W/Home Health Service - Discharge Condition Condition: Stable - Discharge Order Discharge Orders: Discharge Order (Routine); Ordered 03/12/18 Ordered By: Rafael Davis - Discharge Details Anticipated Discharge Date: 03/12/18 Discharge Comment: Patient to follow up with Cardiology, Nephrology, and PCP within 1 week. - Physicians Team Primary Care Provider: Melissa Monreal Attending Provider: Isela Cardenas Other Providers: Kvng Mae MD ; Lina Kan MD ; [facility], [facility]
== END 2018-03-12 18:31 | disposition home health service (06) ==
LOC: NEPC 15:24 → NEDA 15:24 → NEPFCDU 22:16 → N04 03-07 16:13
PROVIDERS: ADMIT Family Medicine; ATTEND Family Medicine

== ENCOUNTER 2018-08-15 07:43 | Inpatient (IN) ==
[2018-08-15 08:43] LABS: Baso % (Auto) 0.8 % (0.0-2.0); Eos % (Auto) 0.1 % (0.0-4.0); Hematocrit 36.7 % (35.0-46.0); Hemoglobin 11.9 gm/dL (11.6-15.3); Lymph # (Auto) 0.8 th/mm3 (1.0-4.8); Lymph % (Auto) 14.5 % (9.0-44.0); Mean Corpuscular HGB Conc 32.4 % (32.0-36.0); Mean Corpuscular Hemoglobin 24.5 pg (27.0-34.0); Mean Corpuscular Volume 75.5 fL (80.0-100.0); Mean Platelet Volume 10.3 fL (7.0-11.0); Mono # (Auto) 0.6 th/mm3 (0.0-0.9); Mono % (Auto) 10.6 % (0.0-8.0); Platelet Count 358 th/mm3 (150-450); Red Blood Count 4.87 mil/mm3 (4.00-5.30); White Blood Count 5.5 th/mm3 (4.0-11.0)
--- NOTE | 2018-08-15 08:44 | XR ---
EXAM DATE: 08/15/2018 8:29 AM EST AGE/SEX: 67 years / Female INDICATIONS: Irregular heartbeat and chest pain. CLINICAL DATA: This is the patient's initial encounter. Patient reports that signs and symptoms have been present for 1 day and indicates a pain score of 8/10. MEDICAL/SURGICAL HISTORY: Myocardial infarction. Pacemaker. COMPARISON: [facility] [place], CHEST 1V SINGLE AP, 06/01/2018. . FINDINGS: A single AP view of the chest demonstrates an area consolidation involving the right midlung. Right-s ided pacing device partially obscures this. Left lung is clear. Heart is mildly enlarged. No effusion s. CONCLUSION: Consolidation involving the right midlung potentially relating to an infectious infiltrate. Cardiomeg gabriel. Electronically signed by: Izaiah Cruz MD Board Certified Radiologist 08/15/2018 8:43 AM EST
[2018-08-15 08:54] LABS: Activated Partial Thrombo Time 41.1 sec (23.4-31.7); INR 5.2 Ratio; Prothrombin Time 52.6 sec (9.8-11.6)
[2018-08-15 09:05] LABS: Anion Gap 14 meq/L (5-15); Aspartate Aminotransferase 27 U/L (15-37); Blood Urea Nitrogen 80 mg/dL (7-18); Calcium 8.6 mg/dL (8.5-10.1); Carbon Dioxide 23.3 meq/L (21.0-32.0); Chloride 101 meq/L (98-107); Glomerular Filtration Rate 21 mL/min (>89); Glucose,Random 79 mg/dL (74-106); Potassium 4.3 meq/L (3.5-5.1); Sodium 138 meq/L (136-145)
[2018-08-15 09:06] LABS: Alanine Aminotransferase 19 U/L (10-53)
[2018-08-15 09:10] LABS: Alkaline Phosphatase 101 U/L (45-117); Total Protein 6.9 g/dL (6.4-8.2)
--- NOTE | 2018-08-15 09:24 | ED ---
HPI General Chief complaint: Weakness Stated complaint: weakness complaint Time Seen by Provider: 08/15/18 08:02 Source: patient Mode of arrival: ambulatory Limitations: no limitations History of Present Illness Complaint: Reports generalized weakness Onset (ago): week(s) (3) Duration: constant and progressively worsening (Acutely worse since the wee hours of this morning) Location: Reports generalized Migration: Reports none Severity: severe Relieving factors: none Exacerbating factors: none Context: Reports other (The patient states that she always has nausea with her diuretic medication. She reports approximately 3 episodes of emesis per day.) Associated symptoms: Reports other (Increasing peripheral edema over the course of the last 3 weeks. Muscle fasciculations which started during the night last night.) Related Data Home Medications Medication Instructions Recorded Confirmed bumetanide 2 mg PO DAILY 05/21/18 08/15/18 carvedilol 25 mg PO BID 05/21/18 08/15/18 potassium chloride 20 meq PO DAILY 05/21/18 08/15/18 spironolactone 50 mg PO DAILY 05/21/18 08/15/18 warfarin [Coumadin] 4 mg PO WEEKLY 05/21/18 08/15/18 warfarin 2 mg PO DAILY 08/15/18 08/15/18 Previous Rx's Medication Instructions Recorded ondansetron [Zofran ODT] 4 mg PO Q6-8H PRN #7 tab 06/01/18 Allergies Allergy/AdvReac Type Severity Reaction Status Date / Time iodine Allergy Severe sneezing, Verified 08/15/18 08:37 chest tightness potassium iodide Allergy Severe sneezing, Verified 08/15/18 08:37 chest tightness povidone-iodine Allergy Severe sneezing, Verified 08/15/18 08:37 chest tightness sodium iodide Allergy Severe sneezing, Verified 08/15/18 08:37 chest tightness sodium iodide Allergy Severe sneezing, Verified 08/15/18 08:37 chest tightness sulfamethoxazole Allergy Intermediate abdominal Verified 08/15/18 08:37 pain trimethoprim Allergy Intermediate abdominal Verified 08/15/18 08:37 pain hydralazine Allergy Unknown Edema Verified 08/15/18 08:37 Statins Allergy Intermediate Hives Uncoded 08/15/18 08:37 Review of Systems ROS: all other systems reviewed are negative [facility] Medical History Medical History Cardiac defibrillator in place (Acute) Bronchitis (Acute) CHF (congestive heart failure) (Acute) CKD (chronic kidney disease), stage III (Acute) CVA (cerebral vascular accident) (Acute) Coronary artery disease (Acute) Fibromyalgia (Acute) Hypertension (Acute) Infection (Acute) Myocardial infarction (Acute) Social History Social History Substance History: No History of Abuse Second Hand Smoke Exposure: No Smoking Status: Never smoker How Often Do You Have a Drink Containing Alcohol: Never Recent Travel in [facility] within the Last 8 Weeks: No Recent Out of Country Travel within the Last 8 Weeks: No Immunization History Tetanus Immunization: Unsure Exam Const General: cooperative, healthy appearing, comfortable, no acute distress, well developed and frail appearing Orientation: alert, awake and oriented x3 HENMT Head: normal to inspection, normocephalic and atraumatic Eyes Alignment and Position: alignment normal and position abnormal Conjunctivae: conjunctivae normal Sclera: sclerae normal EOM: EOM intact bilaterally Neck Neck: normal visual inspection and full ROM Chest Chest: normal inspection of the chest Resp Effort & Inspection: normal respiratory effort and able to speak in complete sentences Auscultation: clear to auscultation bilaterally Cardio Rate: tachycardic (Initial heart rate was 170) Rhythm: regular rhythm GI Inspection: normal to inspection Palpation: soft Back/Spine/Pelvis Cervical Spine: cervical ROM normal Thoracic/Lumbar Spine: thoraco-lumbar ROM normal Skin General: no rashes or lesions noted, turgor normal and dry skin Neuro General: alert, awake, oriented x3, moves all extremities and CN's II-XI intact bilaterally Extrem General: normal to inspection, full ROM and edema (4+) Laterality: bilaterally Psych Appearance: grossly normal Mental Status: mental status grossly normal Speech and Movement: speech and movement normal Mood: congruent mood Affect: normal affect Attitude: cooperative Thought Process: normal Thought Content: normal Judgment: judgment good Course Initial Documented Vital Signs Temperature 97.9 F 08/15/18 07:47 Respiratory Rate 20 08/15/18 07:47 Blood Pressure 122/84 08/15/18 07:47 Pulse Oximetry 98 08/15/18 07:47 Last Documented Vital Signs Temperature 97.9 F 08/15/18 07:47 Pulse Rate 97 H 08/15/18 08:33 Respiratory Rate 16 08/15/18 08:33 Blood Pressure 141/85 H 08/15/18 08:33 Pulse Oximetry 98 08/15/18 08:33 Critical Care Time Critical Care Time: Yes Total Critical Care Time: 30 Attestation: Time to perform other separately billable procedures was not included in the critical care time. My time did not include minutes spent treating any other patients simultaneously or on activities that did not directly contribute to the patient's treatment. The services I provided to this patient were to treat and/or prevent clinically significant deterioration due to supraventricular tachycardia I provided critical care services requiring my management, as noted below: Chart data review, documentation time, medication orders and management, vital sign assessments/reviewing monitor data, ordering and reviewing lab tests, ordering and interpreting/reviewing x-rays and diagnostic studies, care of the patient and discussion of the patient with the admitting physicians Medical Decision Making MDM Narrative Medical decision making narrative: This patient presents to us with profound weakness. She states that she has had progressively worsening symptoms for the last 3 weeks but that it became acutely worse at about 3:00 this morning. She states that she was so weak that she could not walk. In addition, she reports increasing peripheral edema over the last 3 weeks. She further reports occasional nausea and vomiting for the last 3 weeks. She relates the nausea and vomiting to her diuretics. On exam, this patient looks chronically ill. She came in with an initial heart rate of 170. This was treated with a bolus of Cardizem and her heart rate is now less than 100. She also has 4+ pretibial pitting edema. Her chest x-ray shows an infiltrate in the right midlung. This has been empirically treated for pneumonia with Rocephin and Zithromax. However, her clinical picture does not really point to pneumonia. It is more of a failure picture. This patient also has acute on chronic renal failure and an elevated troponin which may be secondary to her renal failure, secondary to demand ischemia or secondary to ACS. Nonetheless, this patient needs to be admitted to the hospital for further evaluation and treatment. Her regular doctor is Dr. Monreal with [facility]. Her planer chain offbearer is Dr. Mae. Medical Screen Exam Complete: Yes Emergency Medical Condition: Yes Differential Diagnosis Differential Diagnosis: Differential diagnosis of weakness includes but is not limited to infection, CVA, electrolyte disturbance, renal failure, hypoglycemia Lab Data Lab results reviewed: Yes I reviewed the patient's lab results. Result diagrams: 08/15/18 08:10 08/15/18 08:10 Lab Results 08/15/18 08/15/18 08/15/18 Range/Units 08:10 08:10 08:10 WBC 5.5 (4.0-11.0) th/mm3 RBC 4.87 (4.00-5.30) mil/mm3 Hgb 11.9 (11.6-15.3) gm/dL Hct 36.7 (35.0-46.0) % MCV 75.5 L (80.0-100.0) fL MCH 24.5 L (27.0-34.0) pg MCHC 32.4 (32.0-36.0) % RDW 19.0 H (11.6-17.2) % Plt Count 358 (150-450) th/mm3 MPV 10.3 (7.0-11.0) fL Neut % (Auto) 74.0 H (16.0-70.0) % Lymph % (Auto) 14.5 (9.0-44.0) % [place] % (Auto) 10.6 H (0.0-8.0) % Eos % (Auto) 0.1 (0.0-4.0) % Baso % (Auto) 0.8 (0.0-2.0) % Neut # (Auto) 4.0 (1.8-7.7) th/mm3 Lymph # (Auto) 0.8 L (1.0-4.8) th/mm3 [place] # (Auto) 0.6 (0.0-0.9) th/mm3 Eos # (Auto) 0.0 (0.0-0.4) th/mm3 Baso # (Auto) 0.0 (0.0-0.2) th/mm3 WBC Differential . Differential Comment Auto diff final PT 52.6 H (9.8-11.6) sec INR 5.2 Ratio APTT 41.1 H (23.4-31.7) sec Sodium 138 (136-145) meq/L Potassium 4.3 (3.5-5.1) meq/L Chloride 101 (98-107) meq/L Carbon Dioxide 23.3 (21.0-32.0) meq/L Anion Gap 14 (5-15) meq/L BUN 80 H (7-18) mg/dL Creatinine 2.72 H (0.50-1.00) mg/dL Estimated GFR 21 L (>89) mL/min Random Glucose 79 (74-106) mg/dL Calcium 8.6 (8.5-10.1) mg/dL Total Bilirubin 2.8 H (0.2-1.0) mg/dL AST 27 (15-37) U/L ALT 19 (10-53) U/L Alkaline Phosphatase 101 (45-117) U/L Troponin I 0.10 H (0.02-0.05) ng/mL Total Protein 6.9 (6.4-8.2) g/dL Albumin 3.0 L (3.4-5.0) g/dL Imaging Data Attestation: I personally reviewed and interpreted this imaging study as follows : Radiologist's impression: Chest X-Ray 08/15/18 08:09 CONCLUSION: Consolidation involving the right midlung potentially relating to an infectious infiltrate. Cardiomegaly. ECG Data EKG Prior to Arrival: No Attestation: I personally reviewed and interpreted this ECG as follows: Discharge Plan Discharge Disposition Patient Disposition: ED Admit(ED Internal Use Only) Discharge Order Discharge Orders: ED Use Only Admit Order (Routine); Ordered 08/15/18 Ordered By: Sirisha Ambrocio Discharge Details Diagnosis: Supraventricular tachycardia, Right middle lobe pulmonary infiltrate, Acute on chronic kidney failure, Elevated troponin Physicians Team ED Provider: Sirisha Ambrocio Primary Care Provider: Eko Melissa Merrill Rxs /Orders / Referrals /Forms Prescriptions: No Action warfarin 2 mg Tablet 2 mg PO DAILY RF: 0 carvedilol 25 mg Tablet 25 mg PO BID RF: 0 warfarin [Coumadin] 4 mg Tablet 4 mg PO WEEKLY RF: 0 spironolactone 50 mg Tablet 50 mg PO DAILY RF: 0 potassium chloride 20 mEq Tablet Extended Release 20 meq PO DAILY RF: 0 bumetanide 2 mg Tablet 2 mg PO DAILY RF: 0 ondansetron [Zofran ODT] 4 mg tablet,disintegrating 4 mg PO Q6-8H PRN (Reason: nausea and vomiting) Qty: 7 RF: 0 Status ED Status: Pending Admission
[2018-08-15] MEDS ORDERED: Azithromycin Inj 500 MG in Sodium Chlor 0.9% Inj 250 ML IV.SIG ONE (09:28)
--- NOTE | 2018-08-15 10:45 | P.HPFP ---
History of Present Illness Primary Care Physician: Melissa Monreal MD, R3 <Brannon Willard - 08/15/18 22:39> Melissa Monreal MD, R3 <Dru Jane - 08/15/18 10:45> History of Present Illness: 67-year-old female presenting to the emergency department for progressive weakness associated with shortness of breath and cough productive of a whitish sputum over the course of 1 week. She has a history of significant CHF with an EF of 20%, stage III chronic kidney disease, and hypertension. In the emergency department she was found to be septic with source being pneumonia as well as being significantly fluid overloaded with peripheral edema. She required 2 L IV fluid bolus and was started on antibiotics without resolution of her hypotension. Critical care was consulted and patient was admitted to [place] [facility] [place] treatment and management of her sepsis. <Brannon Willard - 08/15/18 22:39> This patient is a 67-year-old female with a past medical history of CHF (EF of 20%), MV Regurge, HTN, Stage 3 CKD, and CVA with residual left-sided weakness who presents to the ED with 1 week history of edema and 1 day history of weakness. Patient reports that over the last week she is begun to experience shortness of breath and has required 2 pillows to sleep at night. Patient also reports increased sputum production since April she describes as thick and yellow accompanied by coughing. She has not noticed any weight gain but does report intermittent shortness of breath with activity. She reports that after walking a few steps she has to sit down and rest. She has also noticed significant swelling in both of her legs up to her abdomen. During this time patient admits to eating salty foods and normal such as fried shrimp and soup. During this time this patient also reports decreased urination. This morning upon awakening patient says that she felt extremely weak, "no strength in my legs, I couldn't move them" and had to ask her for assistance in getting out of bed. She describes weakness as not having energy and had no specific neurological deficit or isolated weakness. She denies any recent falls , neurological deficits, confusion, recent illnesses, visual changes, or dizziness. She has however had nausea for months and vomited last week with a small amount of blood mixed in. PMHx: PE and Stroke Jul 2016, CHF since 2009, echo in Apr 2018 showed EF of 20% , MV Regurge, HTN, Stage 3 CKD, possikble Pulm HTN Surgical Hx: May 21 2018 defib Meds: As per EMR, warfarin 2 mg 6 days a week FMHx: Father and Brother had CAD, brother had [place] Allergies: As per EMR Social history: Unable to elicit Code: Full <Darlingkirill MiguelDru Holli 08/15/18 20:13> - Diagnosis (1) Severe sepsis (2) Pneumonia (3) Elevated troponin (4) Acute exacerbation of CHF (congestive heart failure) (5) Supratherapeutic INR (6) Acute on chronic kidney failure (7) Hypertension (8) History of CVA (cerebrovascular accident) (9) Nutrition, metabolism, and development symptoms <Brannon Willard 08/15/18 22:39> (1) Severe sepsis (2) Pneumonia (3) Elevated troponin (4) Acute exacerbation of CHF (congestive heart failure) (5) Supratherapeutic INR (6) Acute on chronic kidney failure (7) Hypertension (8) History of CVA (cerebrovascular accident) (9) Nutrition, metabolism, and development symptoms <Phong MiguelDru Holli 08/15/18 20:26> Inpatient Certification: I certify that the inpatient services were ordered in accordance with Medicare regulations governing the order. This includes certification that hospital inpatient services are reasonable and necessary and in the case of services not specified as inpatient-only under 42 CFR 419.22(n), that they are appropriately provided as inpatient services in accordance to with the 2-midnight benchmark under 43 CFR 412.3(e) <Brannon Willard 08/15/18 22:39> I certify that the inpatient services were ordered in accordance with Medicare regulations governing the order. This includes certification that hospital inpatient services are reasonable and necessary and in the case of services not specified as inpatient-only under 42 CFR 419.22(n), that they are appropriately provided as inpatient services in accordance to with the 2-midnight benchmark under 43 CFR 412.3(e) <Phong MiguelDru Holli 08/15/18 10:45> Review of Systems Constitutional: Endorses feeling globally weak, denies any recent fevers, chills , or recent illnesses Eyes: Denies change in vision, Denies double vision, Denies blurry vision Cardiovascular: Denies chest pain, Denies fast heart rate, Denies rapid, pounding, or irregular heartbeat Respiratory: Endorses shortness of breath as well as increased purulent sputum Gastrointestinal: Endorses nausea with one episode of bloody vomiting, denies abdominal pain, Denies constipation, Denies loose stool Genitourinary: Endorses decreased urinary output, denies difficulty urinating, Denies painful urination, Denies blood in urine <Dru Jane 08/15/18 20:13> PMFSH - History History Provided By: Patient <Dru Jane 08/15/18 10:45> - Medical History Medical History: Medical History (Last Reviewed 08/15/18 @ 17:50 by Lia Pinzon APRN) Cardiac defibrillator in place Bronchitis CHF (congestive heart failure) CKD (chronic kidney disease), stage III CVA (cerebral vascular accident) Coronary artery disease Fibromyalgia Hypertension Infection Myocardial infarction <Brannon Willard 08/15/18 22:39> Medical History (Last Reviewed 08/15/18 @ 17:50 by Lia Pinzon APRN) Cardiac defibrillator in place Bronchitis CHF (congestive heart failure) CKD (chronic kidney disease), stage III CVA (cerebral vascular accident) Coronary artery disease Fibromyalgia Hypertension Infection Myocardial infarction <Dru Jane 08/15/18 20:03> - Family History Family History: Family History (Last Reviewed 08/15/18 @ 14:18 by Irene Nino MD) Father CAD (coronary artery disease) Myocardial infarction Brother CAD (coronary artery disease) Myocardial infarction Other Malignant neoplasm <Brannon Willard 08/15/18 22:39> Family History (Last Reviewed 08/15/18 @ 14:18 by Irene Nino MD) Father CAD (coronary artery disease) Myocardial infarction Brother CAD (coronary artery disease) Myocardial infarction Other Malignant neoplasm <Dru Jane 08/15/18 14:22> - Tobacco History Second Hand Smoke Exposure: No <Dru Jane 08/15/18 10:45> Tobacco Use In Past 30 Days: No <Dru Jane 08/15/18 10:45> Smoking Status: Never smoker <Dru Jane 08/15/18 10:45> - Alcohol History How Often Do You Have a Drink Containing Alcohol: Never <Dru Jane 10:45> - Substance Use History Substance History: No History of Abuse <Dru Jane 08/15/18 10:45> - Travel History Recent Travel in the [facility] Within the Last 8 Weeks: No <Dru aJne 08/15 10:45> Recent Travel Out of the Country Within the Last 8 Weeks: No <Dru Jane 08/15/18 10:45> - Immunization History Tetanus Immunization: Unsure <Dru Jane 08/15/18 10:45> Medications and Allergies Allergies Allergy/AdvReac Type Severity Reaction Status Date / Time iodine Allergy Severe sneezing, Verified 08/15/18 08:37 chest tightness potassium iodide Allergy Severe sneezing, Verified 08/15/18 08:37 chest tightness povidone-iodine Allergy Severe sneezing, Verified 08/15/18 08:37 chest tightness sodium iodide Allergy Severe sneezing, Verified 08/15/18 08:37 chest tightness sodium iodide Allergy Severe sneezing, Verified 08/15/18 08:37 chest tightness sulfamethoxazole Allergy Intermediate abdominal Verified 08/15/18 08:37 pain trimethoprim Allergy Intermediate abdominal Verified 08/15/18 08:37 pain hydralazine Allergy Unknown Edema Verified 08/15/18 08:37 Statins Allergy Intermediate Hives Uncoded 08/15/18 08:37 <Brannon Willard - 08/15/18 22:39> Home Medications Medication Instructions Recorded Confirmed Type bumetanide 2 mg PO DAILY 05/21/18 08/15/18 History carvedilol 25 mg PO BID 05/21/18 08/15/18 History potassium chloride 20 meq PO DAILY 05/21/18 08/15/18 History spironolactone 50 mg PO DAILY 05/21/18 08/15/18 History warfarin 2 mg PO DAILY 08/15/18 08/15/18 History <Brannon Willard - 08/15/18 22:39> Active Medications: Active Medications Acetaminophen (Tylenol) 650 mg PO Q4H PRN PRN Reason: Temp > 100.4 Al Hydroxide/Mg Hydroxide (Milk Of Magnesia Liq) 30 ml PO Q12H PRN PRN Reason: Mild Constipation Bisacodyl (Dulcolax Supp) 10 mg RECTAL DAILY PRN PRN Reason: SEVERE CONSITIPATION Chlorhexidine Gluconate (Chlorhexidine 2% Cloth) 3 pack TOPICAL DAILY@0400 ANAHI Stop: 08/21/18 03:59 Chlorhexidine Gluconate (Chlorhexidine 2% Cloth) 3 pack TOPICAL DAILY@0400 PRN PRN Reason: Extra cloth needed Stop: 08/21/18 03:59 Furosemide (Lasix Inj) 20 mg IV.PUSH BID@0900,1800 ANAHI Last Admin: 08/15/18 11:42 Dose: 20 mg Azithromycin 500 mg/ Sodium (Chloride) 250 mls @ 250 mls/hr IV.SIG Q24H ANAHI Metronidazole/Sodium Chloride (Flagyl 500 Mg Inj) 100 mls @ 100 mls/hr IV.SIG Q8H ANAHI Last Infusion: 08/15/18 17:05 Dose: Infused Norepinephrine Bitartrate (Levophed-Dextrose 4 Mg/250 Ml Drip) 4 mg in 250 mls @ 7.5 mls/hr IV.SIG TITRATE PRN; Protocol PRN Reason: Per Protocol Last Titration: 08/15/18 14:38 Dose: 5 mcg/min, 18.75 mls/hr Sodium Chloride (Ns Inj) 250 mls @ 15 mls/hr IV.SIG ONCE ANAHI Stop: 08/16/18 06:39 Last Admin: 08/15/18 16:06 Dose: Not Given Cefepime HCl 2,000 mg/ Sodium (Chloride) 100 mls @ 200 mls/hr IV.SIG Q8H ANAHI Last Infusion: 08/15/18 17:05 Dose: Infused Linezolid (Zyvox 600 Mg Premix) 300 mls @ 300 mls/hr IV.SIG Q12H ANAHI Last Infusion: 08/15/18 17:05 Dose: Infused Albumin Human (Flexbumin 25% Inj) 100 mls @ 60 mls/hr IV.SIG Q6HR ANAHI Lactulose (Lactulose Liq) 30 ml PO DAILY PRN PRN Reason: SEVERE CONSITIPATION Ondansetron HCl (Zofran Inj) 4 mg IV.PUSH Q6H PRN PRN Reason: NAUSEA OR VOMITING Ondansetron HCl (Zofran Odt) 4 mg PO Q6H PRN PRN Reason: NAUSEA OR VOMITING Potassium Chloride (K-Dur) [address] [facility] Promethazine HCl (Phenergan) 25 mg PO Q6H PRN PRN Reason: NAUSEA OR VOMITING Promethazine HCl (Phenergan Supp) 25 mg RECTAL Q6H PRN PRN Reason: NAUSEA OR VOMITING Senna/Docusate Sodium (Aleyda-Colace) [address] [facility] Last Admin: 08/15/18 20:56 Dose: 1 tab Sennosides (Senokot) 17.2 mg PO Q12H PRN PRN Reason: Moderate Constipation Sodium Bicarbonate (Sodium Bicarbonate) [address] [facility] Last Admin: 08/15/18 20:56 Dose: 650 mg Sodium Chloride (Ns Flush) [address] [facility] Last Admin: 08/15/18 20:56 Dose: 2 ml Sodium Chloride (Ns Flush) 2 ml IV.FLUSH UNSCH PRN PRN Reason: FLUSH AFTER USING IV ACCESS Terbutaline Sulfate (Brethine Inj) 1 mg SQ UNSCH PRN PRN Reason: For Extravasation <Brannon Willard - 08/15/18 22:39> Active Medications Diltiazem HCl (Cardizem Inj) 24.9249 mg 0.35 mg/kg (24.9249 mg) IV.PUSH BOLUS PRN PRN Reason: Response Last Admin: 08/15/18 08:16 Dose: 24.9249 mg Sodium Chloride (Ns Flush) 2 ml IV.FLUSH UNSCH PRN PRN Reason: FLUSH AFTER USING IV ACCESS Last Admin: 08/15/18 08:19 Dose: 2 ml <Dru Jane O - 08/15/18 10:45> Exam Vital signs: Vital Signs 08/15/18 07:47 08/15/18 08:02 08/15/18 08:23 Temperature 97.9 F Pulse Rate 174 H 101 H Respiratory Rate 20 26 H 25 H Blood Pressure 122/84 111/91 H 121/63 Pulse Oximetry 98 99 100 08/15/18 08:33 08/15/18 09:21 08/15/18 09:54 Temperature Pulse Rate 97 H 96 H 94 H Respiratory Rate 16 22 16 Blood Pressure 141/85 H 129/78 103/7 L Pulse Oximetry 98 99 99 08/15/18 11:24 08/15/18 11:55 08/15/18 12:20 Temperature Pulse Rate 105 H 94 H 98 H Respiratory Rate 26 H 24 26 H Blood Pressure 95/51 L 77/39 L 107/48 L Pulse Oximetry 100 100 100 08/15/18 12:31 08/15/18 13:15 08/15/18 14:18 Temperature Pulse Rate 98 H 83 95 H Respiratory Rate 25 H 27 H 24 Blood Pressure 70/30 L 70/40 L 90/76 L Pulse Oximetry 100 99 100 08/15/18 14:38 08/15/18 15:10 08/15/18 16:00 Temperature 96.3 F L Pulse Rate 91 H 86 92 H Respiratory Rate 19 25 H 16 Blood Pressure 129/69 108/77 Pulse Oximetry 100 100 100 08/15/18 17:00 08/15/18 18:00 08/15/18 19:00 Temperature Pulse Rate 92 H 89 89 Respiratory Rate 18 16 14 Blood Pressure 111/67 130/62 109/87 Pulse Oximetry 100 100 99 08/15/18 20:00 08/15/18 21:00 08/15/18 22:00 Temperature 96.9 F L Pulse Rate 90 92 H 90 Respiratory Rate 13 25 H 16 Blood Pressure 121/78 113/86 129/73 Pulse Oximetry 97 100 91 L Intake & Output 08/15/18 08/15/18 08/16/18 06:59 18:59 06:59 Intake Total 1750.5 / 1750.5 Output Total 10 Balance 1740.5 / 1740.5 Weight 71.214 kg Intake: IV 1400.5 / 1400.5 Azithromycin Inj 500 MG In NS 250 / 250 Inj 250 ML @ 250 mls/hr IV.SIG ONCE ONE Rx#:[id number] Maxipime Inj 2,000 MG In NS Inj 100 / 100 100 ML @ 200 mls/hr IV.SIG Q8H ANAHI Rx#:[id number] Zyvox 600 mg Premix 300 ML @ 300 / 300 300 mls/hr IV.SIG Q12H ANAHI Rx#: [id number] Vitamin K Inj 5 MG In NS Inj 50 50.5 / 50.5 ML @ 606 mls/hr IV.SIG ONCE ONE Rx#:[id number] NS Inj 1,000 ML @ 1000 mls/hr 500 / 500 IV.SIG BOLUS ANAHI Rx#:[id number] NS Inj 500 ML @ Wide Open IV. 0 / 0 SIG BOLUS ONE Rx#:[id number] Rocephin Inj 2,000 MG In NS Inj 100 / 100 100 ML @ 200 mls/hr IV.SIG ONCE ONE Rx#:[id number] Flagyl 500 MG Inj 100 ML @ 100 100 / 100 mls/hr IV.SIG Q8H ANAHI Rx#: [id number] Oral 350 / 350 Output: Urine Amount (Catheter) Indwelling Urethral Catheter <Brannon Willard - 08/15/18 22:39> Vital Signs 08/15/18 07:47 08/15/18 08:02 08/15/18 08:23 Temperature 97.9 F Pulse Rate 174 H 101 H Respiratory Rate 20 26 H 25 H Blood Pressure 122/84 111/91 H 121/63 Pulse Oximetry 98 99 100 08/15/18 08:33 08/15/18 09:21 08/15/18 09:54 Temperature Pulse Rate 97 H 96 H 94 H Respiratory Rate 16 22 16 Blood Pressure 141/85 H 129/78 103/7 L Pulse Oximetry 98 99 99 Intake & Output 08/14/18 08/15/18 08/15/18 18:59 06:59 18:59 Weight 71.214 kg <Dru Jane - 08/15/18 10:45> Narrative: General: Weak and very ill-appearing female, lying in bed Skin: Somewhat cool and mottled, no obvious lesions HEENT: Normocephalic and atraumatic, somewhat tacky/dry mucous membranes Cardiovascular: Tachycardia with regular rhythm and no obvious murmurs Respiratory: Distant breath sounds diffusely with mild crackles in bilateral lower lung bases. No obvious rhonchi or rales GI: Abdomen soft, nontender, nondistended MSK: 2+ pitting edema up to the mid thighs bilateral lower extremities <Brannon Willard - 08/15/18 22:39> GENERAL: Pleasant but ill-appearing -[place] female. Patient restless reporting that she is tired, has difficulty breathing, and feels weak. SKIN: Warm and dry. No rash. EYES: No scleral icterus. No injection or drainage. PERRLA. EOMI. HENT: Normocephalic. Atraumatic. MMM. OP Benign. NECK: Supple, trachea midline. No JVD or lymphadenopathy. CARDIOVASCULAR: Regular rate and rhythm without obvious murmurs, gallops, or rubs. RESPIRATORY: Breath sounds diminished in right lower lung base. Breathing uncomfortably but without obvious use of accessory muscles. No appreciable crackles, wheezes, rubs appreciated. GASTROINTESTINAL: Abdomen soft, non-tender, nondistended. BS WNL. MUSCULOSKELETAL: 2+ pitting edema in both lower extremities up to the navel. BACK: Nontender without obvious deformity. No CVA tenderness. NEURO/PSYCH: Afocal. Awake, alert, and oriented x3. Cranial nerves II through XII grossly intact with exception of left-sided facial droop. Strength 4/5 in left upper and lower extremity. Patient unable to lift legs off of bed. Marketing Operations Consultant strength 5 out of 5 in both hands bilaterally. Unable to accomplish cerebellar exam or pronator drift. Short-term and recall grossly intact. <Dru Jane - 08/15/18 20:13> Results - Labs Result diagrams: 08/15/18 08:10 08/15/18 18:39 <Brannon Willard - 08/15/18 22:39> Abnormal lab results 08/15/18 08/15/18 08/15/18 Range/Units 08:10 08:10 08:10 MCV 75.5 L (80.0-100.0) fL MCH 24.5 L (27.0-34.0) pg RDW 19.0 H (11.6-17.2) % Neut % (Auto) 74.0 H (16.0-70.0) % Garrard % (Auto) 10.6 H (0.0-8.0) % Lymph # (Auto) 0.8 L (1.0-4.8) th/mm3 PT 52.6 H (9.8-11.6) sec APTT 41.1 H (23.4-31.7) sec ABG pH (7.380-7.420) ABG pCO2 (38-42) mmHg ABG pO2 (61-120) mmHg ABG HCO3 (22-26) mmol/L ABG Base Excess (-2-2) mmol/L Hemoglobin (12.0-16.0) G/DL Carbon Dioxide (21.0-32.0) meq/L Anion Gap (5-15) meq/L BUN 80 H (7-18) mg/dL Creatinine 2.72 H (0.50-1.00) mg/dL Estimated GFR 21 L (>89) mL/min Lactic Acid (0.4-2.0) mmol/L Calcium (8.5-10.1) mg/dL Total Bilirubin 2.8 H (0.2-1.0) mg/dL AST (15-37) U/L Troponin I 0.10 H (0.02-0.05) ng/mL B-Natriuretic Peptide (0-100) pg/mL Total Protein (6.4-8.2) g/dL Albumin 3.0 L (3.4-5.0) g/dL Urine Clarity (Clear) Urine Protein (Neg-Trace) mg/dL Ur Leukocyte Esterase (Negative) Urine WBC (0-5) /hpf Urine Bacteria (None) /hpf Urine Mucus (Occasional) /lpf 08/15/18 08/15/18 08/15/18 Range/Units 12:15 12:52 12:53 MCV (80.0-100.0) fL MCH (27.0-34.0) pg RDW (11.6-17.2) % Neut % (Auto) (16.0-70.0) % Garrard % (Auto) (0.0-8.0) % Lymph # (Auto) (1.0-4.8) th/mm3 PT (9.8-11.6) sec APTT (23.4-31.7) sec ABG pH (7.380-7.420) ABG pCO2 (38-42) mmHg ABG pO2 (61-120) mmHg ABG HCO3 (22-26) mmol/L ABG Base Excess (-2-2) mmol/L Hemoglobin (12.0-16.0) G/DL Carbon Dioxide (21.0-32.0) meq/L Anion Gap (5-15) meq/L BUN (7-18) mg/dL Creatinine (0.50-1.00) mg/dL Estimated GFR (>89) mL/min Lactic Acid 8.1 H* (0.4-2.0) mmol/L Calcium (8.5-10.1) mg/dL Total Bilirubin (0.2-1.0) mg/dL AST (15-37) U/L Troponin I (0.02-0.05) ng/mL B-Natriuretic Peptide 4211 H (0-100) pg/mL Total Protein (6.4-8.2) g/dL Albumin (3.4-5.0) g/dL Urine Clarity Cloudy H (Clear) Urine Protein 100 H (Neg-Trace) mg/dL Ur Leukocyte Esterase Small H (Negative) Urine WBC 7 H (0-5) /hpf Urine Bacteria Rare H (None) /hpf Urine Mucus Few H (Occasional) /lpf 08/15/18 08/15/18 08/15/18 Range/Units 14:04 14:40 18:39 MCV (80.0-100.0) fL MCH (27.0-34.0) pg RDW (11.6-17.2) % Neut % (Auto) (16.0-70.0) % Garrard % (Auto) (0.0-8.0) % Lymph # (Auto) (1.0-4.8) th/mm3 PT (9.8-11.6) sec APTT (23.4-31.7) sec ABG pH 7.34 L (7.380-7.420) ABG pCO2 24 L* (38-42) mmHg ABG pO2 164 H (61-120) mmHg ABG HCO3 13 L* (22-26) mmol/L ABG Base Excess -12.1 L (-2-2) mmol/L Hemoglobin 10.9 L (12.0-16.0) G/DL Carbon Dioxide 19.8 L (21.0-32.0) meq/L Anion Gap 17 H (5-15) meq/L BUN 78 H (7-18) mg/dL Creatinine 2.70 H (0.50-1.00) mg/dL Estimated GFR 21 L (>89) mL/min Lactic Acid (0.4-2.0) mmol/L Calcium 7.8 L D (8.5-10.1) mg/dL Total Bilirubin 2.7 H (0.2-1.0) mg/dL AST 65 H (15-37) U/L Troponin I 0.28 H D (0.02-0.05) ng/mL B-Natriuretic Peptide (0-100) pg/mL Total Protein 5.5 L D (6.4-8.2) g/dL Albumin 2.4 L D (3.4-5.0) g/dL Urine Clarity (Clear) Urine Protein (Neg-Trace) mg/dL Ur Leukocyte Esterase (Negative) Urine WBC (0-5) /hpf Urine Bacteria (None) /hpf Urine Mucus (Occasional) /lpf 08/15/18 08/15/18 Range/Units 19:58 19:58 MCV (80.0-100.0) fL MCH (27.0-34.0) pg RDW (11.6-17.2) % Neut % (Auto) (16.0-70.0) % Garrard % (Auto) (0.0-8.0) % Lymph # (Auto) (1.0-4.8) th/mm3 PT (9.8-11.6) sec APTT (23.4-31.7) sec ABG pH (7.380-7.420) ABG pCO2 (38-42) mmHg ABG pO2 (61-120) mmHg ABG HCO3 (22-26) mmol/L ABG Base Excess (-2-2) mmol/L Hemoglobin (12.0-16.0) G/DL Carbon Dioxide (21.0-32.0) meq/L Anion Gap (5-15) meq/L BUN (7-18) mg/dL Creatinine (0.50-1.00) mg/dL Estimated GFR (>89) mL/min Lactic Acid 7.8 H* (0.4-2.0) mmol/L Calcium (8.5-10.1) mg/dL Total Bilirubin (0.2-1.0) mg/dL AST (15-37) U/L Troponin I 0.45 H D (0.02-0.05) ng/mL B-Natriuretic Peptide (0-100) pg/mL Total Protein (6.4-8.2) g/dL Albumin (3.4-5.0) g/dL Urine Clarity (Clear) Urine Protein (Neg-Trace) mg/dL Ur Leukocyte Esterase (Negative) Urine WBC (0-5) /hpf Urine Bacteria (None) /hpf Urine Mucus (Occasional) /lpf Short CBC 08/15/18 Range/Units 08:10 WBC 5.5 (4.0-11.0) th/mm3 Hgb 11.9 (11.6-15.3) gm/dL Hct 36.7 (35.0-46.0) % Plt Count 358 (150-450) th/mm3 BMP 08/15/18 08/15/18 08:10 18:39 Sodium 138 139 Potassium 4.3 3.8 Chloride 101 102 Carbon Dioxide 23.3 19.8 L BUN 80 H 78 H Creatinine 2.72 H 2.70 H Calcium 8.6 7.8 L D Cardiac Enzymes 08/15/18 08/15/18 08/15/18 Range/Units 08:10 14:40 19:58 Total Creatine Kinase 91 90 (26-192) U/L Troponin I 0.10 H 0.28 H D 0.45 H D (0.02-0.05) ng/mL Liver Function 08/15/18 08/15/18 Range/Units 08:10 18:39 Total Bilirubin 2.8 H 2.7 H (0.2-1.0) mg/dL AST 27 65 H (15-37) U/L ALT 19 28 (10-53) U/L Alkaline Phosphatase 101 83 (45-117) U/L Albumin 3.0 L 2.4 L D (3.4-5.0) g/dL Urine 08/15/18 Range/Units 12:15 Urine Color Ava (Yellw/Straw) Urine Clarity Cloudy H (Clear) Urine pH 5.0 (5.0-8.5) Ur Specific Gladwin 1.015 (1.002-1.035) Urine Protein 100 H (Neg-Trace) mg/dL Urine Glucose (UA) Negative (Negative) mg/dL <Brannon Willard - 08/15/18 22:39> Abnormal lab results 08/15/18 08/15/18 08/15/18 Range/Units 08:10 08:10 08:10 MCV 75.5 L (80.0-100.0) fL MCH 24.5 L (27.0-34.0) pg RDW 19.0 H (11.6-17.2) % Neut % (Auto) 74.0 H (16.0-70.0) % Garrard % (Auto) 10.6 H (0.0-8.0) % Lymph # (Auto) 0.8 L (1.0-4.8) th/mm3 PT 52.6 H (9.8-11.6) sec APTT 41.1 H (23.4-31.7) sec BUN 80 H (7-18) mg/dL Creatinine 2.72 H (0.50-1.00) mg/dL Estimated GFR 21 L (>89) mL/min Total Bilirubin 2.8 H (0.2-1.0) mg/dL Troponin I 0.10 H (0.02-0.05) ng/mL Albumin 3.0 L (3.4-5.0) g/dL Short CBC 08/15/18 Range/Units 08:10 WBC 5.5 (4.0-11.0) th/mm3 Hgb 11.9 (11.6-15.3) gm/dL Hct 36.7 (35.0-46.0) % Plt Count 358 (150-450) th/mm3 BMP 08/15/18 08:10 Sodium 138 Potassium 4.3 Chloride 101 Carbon Dioxide 23.3 BUN 80 H Creatinine 2.72 H Calcium 8.6 Cardiac Enzymes 08/15/18 Range/Units 08:10 Troponin I 0.10 H (0.02-0.05) ng/mL Liver Function 08/15/18 Range/Units 08:10 Total Bilirubin 2.8 H (0.2-1.0) mg/dL AST 27 (15-37) U/L ALT 19 (10-53) U/L Alkaline Phosphatase 101 (45-117) U/L Albumin 3.0 L (3.4-5.0) g/dL <Dru Jane - 08/15/18 10:45> - Imaging Impressions Chest X-Ray 08/15/18 08:09 CONCLUSION: Consolidation involving the right midlung potentially relating to an infectious infiltrate. Cardiomegaly. Chest X-Ray 08/15/18 15:41 CONCLUSION: Pleural effusion and consolidation right lung base persists. New left IJ central line are in excellent position without evidence of pneumothorax. <Brannon Willard - 08/15/18 22:39> Impressions Chest X-Ray 08/15/18 08:09 CONCLUSION: Consolidation involving the right midlung potentially relating to an infectious infiltrate. Cardiomegaly. <Dru Jane - 08/15/18 10:45> Peg VTE Risk Assessment Peg VTE Risk Assessment: Moderate/High Risk (score >= 2) <Dru Jane - 08/15/18 20:33> Peg Risk Assessment Model: Point Value = 1 Point Value = 2 Point Value = 3 Point Value = 5 Age 41-60 Minor surgery BMI > 25 kg/m2 Swollen legs Varicose veins or History of unexplained or recurrent spontaneous Oral contraceptives or hormone replacement Sepsis (< 1 month) Serious lung disease, including pneumonia (< 1 month) Abnormal pulmonary function Acute myocardial infarction Congestive heart failure (< 1 month) History of inflammatory bowel disease Medical patient at bed rest Age 61-74 Arthroscopic surgery Major open surgery (> 45 min) Laparoscopic surgery (> 45 min) Malignancy Confined to bed (> 72 hours) Immobilizing plaster cast Central venous access Age >= 75 History of VTE Family history of VTE Factor V Leiden Prothrombin [id number] Lupus anticoagulant Anticardiolipin antibodies Elevated serum homocysteine Heparin-induced thrombocytopenia Other congenital or acquired thrombophilia Stroke (< 1 month) Elective arthroplasty Hip, pelvis, or leg fracture Acute spinal cord injury (< 1 month) <Brannon Willard - 08/15/18 22:39> Point Value = 1 Point Value = 2 Point Value = 3 Point Value = 5 Age 41-60 Minor surgery BMI > 25 kg/m2 Swollen legs Varicose veins or History of unexplained or recurrent spontaneous Oral contraceptives or hormone replacement Sepsis (< 1 month) Serious lung disease, including pneumonia (< 1 month) Abnormal pulmonary function Acute myocardial infarction Congestive heart failure (< 1 month) History of inflammatory bowel disease Medical patient at bed rest Age 61-74 Arthroscopic surgery Major open surgery (> 45 min) Laparoscopic surgery (> 45 min) Malignancy Confined to bed (> 72 hours) Immobilizing plaster cast Central venous access Age >= 75 History of VTE Family history of VTE Factor V Leiden Prothrombin [id number] Lupus anticoagulant Anticardiolipin antibodies Elevated serum homocysteine Heparin-induced thrombocytopenia Other congenital or acquired thrombophilia Stroke (< 1 month) Elective arthroplasty Hip, pelvis, or leg fracture Acute spinal cord injury (< 1 month) <Dru Jane - 08/15/18 10:45> Prophylaxis Regimen: Total Risk Factor Score Risk Level Prophylaxis Regimen 0-1 Low Early ambulation 2 Moderate Order ONE of the following: *Sequential Compression Device (SCD) *Heparin 5000 units SQ BID 3-4 Higher Order ONE of the following medications: *Heparin 5000 units SQ TID *Enoxaparin/Lovenox 40 mg SQ daily (WT < 150 kg, CrCl > 30 mL/min) *Enoxaparin/Lovenox 30 mg SQ daily (WT < 150 kg, CrCl > 10-29 mL/min) *Enoxaparin/Lovenox 30 mg SQ BID (WT < 150 kg, CrCl > 30 mL/min) AND/OR *Sequential Compression Device (SCD) 5 or more Highest Order ONE of the following medications: *Heparin 5000 units SQ TID (Preferred with Epidurals) *Enoxaparin/Lovenox 40 mg SQ daily (WT < 150 kg, CrCl > 30 mL/min) *Enoxaparin/Lovenox 30 mg SQ daily (WT < 150 kg, CrCl > 10-29 mL/min) *Enoxaparin/Lovenox 30 mg SQ BID (WT < 150 kg, CrCl > 30 mL/min) AND *Sequential Compression Device (SCD) <Brannon Willard - 08/15/18 22:39> Total Risk Factor Score Risk Level Prophylaxis Regimen 0-1 Low Early ambulation 2 Moderate Order ONE of the following: *Sequential Compression Device (SCD) *Heparin 5000 units SQ BID 3-4 Higher Order ONE of the following medications: *Heparin 5000 units SQ TID *Enoxaparin/Lovenox 40 mg SQ daily (WT < 150 kg, CrCl > 30 mL/min) *Enoxaparin/Lovenox 30 mg SQ daily (WT < 150 kg, CrCl > 10-29 mL/min) *Enoxaparin/Lovenox 30 mg SQ BID (WT < 150 kg, CrCl > 30 mL/min) AND/OR *Sequential Compression Device (SCD) 5 or more Highest Order ONE of the following medications: *Heparin 5000 units SQ TID (Preferred with Epidurals) *Enoxaparin/Lovenox 40 mg SQ daily (WT < 150 kg, CrCl > 30 mL/min) *Enoxaparin/Lovenox 30 mg SQ daily (WT < 150 kg, CrCl > 10-29 mL/min) *Enoxaparin/Lovenox 30 mg SQ BID (WT < 150 kg, CrCl > 30 mL/min) AND *Sequential Compression Device (SCD) <Darling Dru Miguel Holli - 08/15/18 10:45> Assessment and Plan - Assessment (1) Severe sepsis Code(s): A41.9 - Sepsis, unspecified organism; R65.20 - Severe sepsis without septic shock Status: Acute (2) Pneumonia Code(s): J18.9 - Pneumonia, unspecified organism Status: Acute (3) Elevated troponin Code(s): R74.8 - Abnormal levels of other serum enzymes Status: Acute (4) Acute exacerbation of CHF (congestive heart failure) Code(s): I50.9 - Heart failure, unspecified Status: Acute (5) Supratherapeutic INR Code(s): R79.1 - Abnormal coagulation profile Status: Acute (6) Acute on chronic kidney failure Code(s): N17.9 - Acute kidney failure, unspecified; N18.9 - Chronic kidney disease, unspecified Status: Acute (7) Hypertension Code(s): I10 - Essential (primary) hypertension Status: Chronic (8) History of CVA (cerebrovascular accident) Code(s): Z86.73 - Personal history of transient ischemic attack (TIA), and cerebral infarction without residual deficits Status: Chronic (9) Nutrition, metabolism, and development symptoms Code(s): R63.8 - Other symptoms and signs concerning food and fluid intake Status: Acute <Brannon Willrad - 08/15/18 22:39> (1) Severe sepsis Code(s): A41.9 - Sepsis, unspecified organism; R65.20 - Severe sepsis without septic shock Status: Acute Plan: Community-acquired pneumonia complicated by lower extremity edema in the setting of CHF with an EF of 20%. Patient met severe sepsis criteria on admission: - Heart rate 105 - Respiratory rate of 26 - Blood pressure of 95/51 - With suspected community-acquired pneumonia, right lower lobe infiltrate on imaging. - Lactic acid of 8.1 - WBC 5.5 In the ED: -Received 25 mg IVP Cardizem for SVT -Patient received 20 mg of IV Lasix -Bradley placed -Decompensated with systolic pressures in the 70s and mean arterial pressure of 43 -Received a total of 1.5 L in the ED -Placed on 3 L nasal cannula and satting 100% -Received 0.1 mg of phenylephrine -Azithromycin 500 mg -Ceftriaxone 2 g -Patient unresponsive to fluid bolus, circulation tender consulted. Plan: -Stat transfer to ICU for possible central line placement and vasopressor support -Per circulation tender broaden antibiotic coverage, Zyvox cefepime and azithromycin -Limit fluid bolus to less than 3 L -Follow-up with blood cultures -Follow-up with UA -Follow-up with sputum culture -Follow-up with respiratory panel -Trend lactic acid -Trend white count (2) Pneumonia Code(s): J18.9 - Pneumonia, unspecified organism Status: Acute Plan: Community acquired versus aspiration pneumonia. -Patient has right-sided pneumonia with lactic acidosis -DuoNeb every 2 hours as needed -Follow-up with sputum culture -Follow-up with respiratory panel -Follow-up with Legionella urine antigen -Zyvox cefepime and azithromycin -Supplemental oxygen as needed to keep oxygen saturation above 92% -High risk for intubation, ventilation (3) Elevated troponin Code(s): R74.8 - Abnormal levels of other serum enzymes Status: Acute Plan: Initial troponins of admission 0.10 with no chest pain or ST elevation or depression on EKG. ACS versus elevated troponins in the setting of chronic kidney disease. Patient in SVT on admission status post Cardizem bolus. -EKG: Initial EKG showed supraventricular tachycardia -Chest x-ray consolidation right midlung and cardiomegaly -Initial troponins 0.10 ACS rule out: -Trend troponins -Trend CK-MB -Monitor on telemetry (4) Acute exacerbation of CHF (congestive heart failure) Code(s): I50.9 - Heart failure, unspecified Status: Acute Plan: -BNP 4000 -Hold diuretics due to septic shock (5) Supratherapeutic INR Code(s): R79.1 - Abnormal coagulation profile Status: Acute Plan: Patient on warfarin 6 days a week at home. INR on admission was 5.2. -Hold warfarin -Administer 2.5 mg of vitamin K -Trend INR (6) Acute on chronic kidney failure Code(s): N17.9 - Acute kidney failure, unspecified; N18.9 - Chronic kidney disease, unspecified Status: Acute Plan: This patient stage III CKD with elevated creatinine above baseline on admission. Possibly due to decrease intravascular volume in the setting of sepsis. -Creatinine on admission 2.72 from baseline of 1.5. -Patient bolus 1.5 L in ED -BUN 80 -Estimated GFR of 21 -Trend creatinine (7) Hypertension Code(s): I10 - Essential (primary) hypertension Status: Chronic Plan: Patient currently hypotensive -Hold all hypertension medication -Patient transferred to ICU for possible pressor support (8) History of CVA (cerebrovascular accident) Code(s): Z86.73 - Personal history of transient ischemic attack (TIA), and cerebral infarction without residual deficits Status: Chronic (9) Nutrition, metabolism, and development symptoms Code(s): R63.8 - Other symptoms and signs concerning food and fluid intake Status: Acute Plan: Fluids: Per circulation tender Electrolytes: Replete as needed Nutrition: Renal diet DVT prophylaxis: Not indicated due to supratherapeutic INR <Dru Jane - 08/15/18 20:26> - Attending Attestation Patient case discussed with resident physicians I have independently examined the patient I have read the above note and agree with the assessment and plan as discussed with me I was involved in all medical decision making for this patient Brannon Willard MD <Brannon Willard - 08/15/18 22:39> <Dru Jane - Last Filed: 08/15/18 20:26> (4) Acute exacerbation of CHF (congestive heart failure) Qualifiers: Heart failure type: systolic Qualified Code(s): I50.23 - Acute on chronic systolic (congestive) heart failure (6) Acute on chronic kidney failure Qualifiers: Acute renal failure type: unspecified Chronic kidney disease stage: stage 4 ( severe) Qualified Code(s): N17.9 - Acute kidney failure, unspecified; N18.4 - Chronic kidney disease, stage 4 (severe) <Brannon Willard - Last Filed: 08/15/18 22:39> (4) Acute exacerbation of CHF (congestive heart failure) Qualifiers: Heart failure type: systolic Qualified Code(s): I50.23 - Acute on chronic systolic (congestive) heart failure (6) Acute on chronic kidney failure Qualifiers: Acute renal failure type: unspecified Chronic kidney disease stage: stage 4 ( severe) Qualified Code(s): N17.9 - Acute kidney failure, unspecified; N18.4 - Chronic kidney disease, stage 4 (severe) <Dru Jane - Last Filed: 08/15/18 20:26> (4) Acute exacerbation of CHF (congestive heart failure) Qualifiers: Heart failure type: systolic Qualified Code(s): I50.23 - Acute on chronic systolic (congestive) heart failure (6) Acute on chronic kidney failure Qualifiers: Acute renal failure type: unspecified Chronic kidney disease stage: stage 4 ( severe) Qualified Code(s): N17.9 - Acute kidney failure, unspecified; N18.4 - Chronic kidney disease, stage 4 (severe) <Brannon Willard - Last Filed: 08/15/18 22:39> (4) Acute exacerbation of CHF (congestive heart failure) Qualifiers: Heart failure type: systolic Qualified Code(s): I50.23 - Acute on chronic systolic (congestive) heart failure (6) Acute on chronic kidney failure Qualifiers: Acute renal failure type: unspecified Chronic kidney disease stage: stage 4 ( severe) Qualified Code(s): N17.9 - Acute kidney failure, unspecified; N18.4 - Chronic kidney disease, stage 4 (severe)
[2018-08-15] MEDS ORDERED: Bisacodyl 10 MG Supp RECTAL PRN (10:55)
[2018-08-15] MEDS ORDERED: Promethazine 25 MG Supp RECTAL PRN (10:55)
[2018-08-15] MEDS ORDERED: Acetaminophen 325 MG Tablet PO PRN (10:55)
[2018-08-15] MEDS ORDERED: Sodium Chlor 0.9% Inj 500 ML IV.SIG ONE (12:15)
[2018-08-15] MEDS ORDERED: Sod Chloride 0.9% Inj 1,000 ML IV.SIG SCH (12:27)
[2018-08-15 13:23] LABS: Bacteria,Urine Rare /hpf; Bilirubin,Urine Negative (Negative); Clarity,Urine Cloudy (Clear); Color,Urine Amber (Yellw/Straw); Glucose,Urine (UA) Negative (Negative); Hyaline Casts,Urine 21 /lpf (0-3); Leukocyte Esterase,Urine Small (Negative); Mucus,Urine Few /lpf (Occasional); Nitrite,Urine Negative (Negative); Specific Gravity,Urine 1.015 (1.002-1.035); Squamous Epithelial Cell,Urine 11 /hpf (0-5); Transitional Epi Cells,Urine 4 /hpf
[2018-08-15 13:25] LABS: Urobilinogen,Urine 0.2 mg/dL (Less than 2)
[2018-08-15] MEDS ORDERED: Norepinephrine Inj 4 MG/4 ML Ampul ONE (14:00)
[2018-08-15] MEDS ORDERED: Sodium Chlor 0.9% Inj 250 ML IV.SIG SCH (14:00)
--- NOTE | 2018-08-15 14:10 | P.CONCC ---
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 Patient also had productive cough and frothy sputum, sometimes blood tinged. She also complained about declining urinary output. Initial ER workup showed a normal white count, however BUN was elevated at 80 and creatinine 2.72. BNP was more than 4000. Chest x-ray showed right midlung infiltrate. Patient received Rocephin and azithromycin for community-acquired pneumonia. Patient was admitted to the [facility]. After admission due to the shortness of breath pedal edema and elevated BNP [facility] gave the patient 20 mg IV Lasix but without much urine output. Initially patient had HR of 170's EKG appeared to be SVT and patient converted to NSR with IV Cardizem 25 mg. However patient's blood pressure started to decline. Because of this patient was given IV fluid boluses total 1.5 L had been given. Systolic blood pressure remains at 70s. Lactic acid was checked and was 8.1. With this information critical care medicine was consulted I evaluated the patient emergently. She is lethargic but wakes up easily answers questions. Still profoundly hypotensive despite 1.5 L bolus. I have ordered additional 500 mL bolus and will start Levophed at 5 mcg/min and titrate as needed. It was noted had that her INR is 5.2. Patient may benefit from inotropic agents if blood pressure improves. Antibiotics had been broadened into cefepime and azithromycin, I will also add IV Zyvox. Hold all further diuresis due to septic shock. Patient is very critical at this time Review of Systems All other systems reviewed negative except as stated in HPI PMFSH - History History Provided By: Patient - Medical History Medical History: Medical History (Last Reviewed 08/15/18 @ 14:18 by Irene Nino MD) Cardiac defibrillator in place Bronchitis CHF (congestive heart failure) CKD (chronic kidney disease), stage III CVA (cerebral vascular accident) Coronary artery disease Fibromyalgia Hypertension Infection Myocardial infarction - Family History Family History: Family History (Last Reviewed 08/15/18 @ 14:18 by Irene Nino MD) Father CAD (coronary artery disease) Myocardial infarction Brother CAD (coronary artery disease) Myocardial infarction Other Malignant neoplasm - Tobacco History Second Hand Smoke Exposure: No Tobacco Use In Past 30 Days: No Smoking Status: Never smoker - Alcohol History How Often Do You Have a Drink Containing Alcohol: Never - Substance Use History Substance History: No History of Abuse - Travel History Recent Travel in the [place] Within the Last 8 Weeks: No Recent Travel Out of the Country Within the Last 8 Weeks: No - Immunization History Tetanus Immunization: Unsure Medications and Allergies Active Medications: Active Medications Acetaminophen (Tylenol) 650 mg PO Q4H PRN PRN Reason: Temp > 100.4 Al Hydroxide/Mg Hydroxide (Milk Of Magnesia Liq) 30 ml PO Q12H PRN PRN Reason: Mild Constipation Bisacodyl (Dulcolax Supp) 10 mg RECTAL DAILY PRN PRN Reason: SEVERE CONSITIPATION Bumetanide (Bumex) 2 mg PO DAILY ANAHI Furosemide (Lasix Inj) 20 mg IV.PUSH BID@0900,1800 [facility] Last Admin: 08/15/18 11:42 Dose: 20 mg Azithromycin 500 mg/ Sodium (Chloride) 250 mls @ 250 mls/hr IV.SIG Q24H ANAHI Sodium Chloride (Ns Inj) 1,000 mls @ 1,000 mls/hr IV.SIG BOLUS ANAHI Stop: 08/15/18 13:26 Last Admin: 08/15/18 13:00 Dose: 1,000 mls/hr Metronidazole/Sodium Chloride (Flagyl 500 Mg Inj) 100 mls @ 100 mls/hr IV.SIG Q8H ANAHI Norepinephrine Bitartrate (Levophed-Dextrose 4 Mg/250 Ml Drip) 4 mg in 250 mls @ 7.5 mls/hr IV.SIG TITRATE PRN; Protocol PRN Reason: Per Protocol Sodium Chloride (Ns Inj) 250 mls @ 15 mls/hr IV.SIG ONCE ANAHI Stop: 08/16/18 06:39 Cefepime HCl 2,000 mg/ Sodium (Chloride) 100 mls @ 200 mls/hr IV.SIG Q8H ANAHI Lactulose (Lactulose Liq) 30 ml PO DAILY PRN PRN Reason: SEVERE CONSITIPATION Ondansetron HCl (Zofran Inj) 4 mg IV.PUSH Q6H PRN PRN Reason: NAUSEA OR VOMITING Ondansetron HCl (Zofran Inj) 4 mg IV.PUSH Q6H PRN PRN Reason: NAUSEA OR VOMITING Ondansetron HCl (Zofran Odt) 4 mg PO Q6H PRN PRN Reason: NAUSEA OR VOMITING Phytonadione (Aquamephyton Inj) 2.5 mg IM ONCE ONE Stop: 08/15/18 12:39 Potassium Chloride (K-Dur) 20 meq PO DAILY ANAHI Promethazine HCl (Phenergan) 25 mg PO Q6H PRN PRN Reason: NAUSEA OR VOMITING Promethazine HCl (Phenergan Supp) 25 mg RECTAL Q6H PRN PRN Reason: NAUSEA OR VOMITING Senna/Docusate Sodium (Aleyda-Colace) 1 tab PO BID [facility] Sennosides (Senokot) 17.2 mg PO Q12H PRN PRN Reason: Moderate Constipation Sodium Chloride (Ns Flush) 2 ml IV.FLUSH BID ANAHI Sodium Chloride (Ns Flush) 2 ml IV.FLUSH UNSCH PRN PRN Reason: FLUSH AFTER USING IV ACCESS Terbutaline Sulfate (Brethine Inj) 1 mg SQ UNSCH PRN PRN Reason: For Extravasation Allergies Allergy/AdvReac Type Severity Reaction Status Date / Time iodine Allergy Severe sneezing, Verified 08/15/18 08:37 chest tightness potassium iodide Allergy Severe sneezing, Verified 08/15/18 08:37 chest tightness povidone-iodine Allergy Severe sneezing, Verified 08/15/18 08:37 chest tightness sodium iodide Allergy Severe sneezing, Verified 08/15/18 08:37 chest tightness sodium iodide Allergy Severe sneezing, Verified 08/15/18 08:37 chest tightness sulfamethoxazole Allergy Intermediate abdominal Verified 08/15/18 08:37 pain trimethoprim Allergy Intermediate abdominal Verified 08/15/18 08:37 pain hydralazine Allergy Unknown Edema Verified 08/15/18 08:37 Statins Allergy Intermediate Hives Uncoded 08/15/18 08:37 Home Medications Medication Instructions Recorded Confirmed Type bumetanide 2 mg PO DAILY 05/21/18 08/15/18 History carvedilol 25 mg PO BID 05/21/18 08/15/18 History potassium chloride 20 meq PO DAILY 05/21/18 08/15/18 History spironolactone 50 mg PO DAILY 05/21/18 08/15/18 History warfarin 2 mg PO DAILY 08/15/18 08/15/18 History Physical Exam Vital signs: Vital Signs 08/15/18 07:47 08/15/18 08:02 08/15/18 08:23 Temperature 97.9 F Pulse Rate 174 H 101 H Respiratory Rate 20 26 H 25 H Blood Pressure 122/84 111/91 H 121/63 Pulse Oximetry 98 99 100 08/15/18 08:33 08/15/18 09:21 08/15/18 09:54 Temperature Pulse Rate 97 H 96 H 94 H Respiratory Rate 16 22 16 Blood Pressure 141/85 H 129/78 103/7 L Pulse Oximetry 98 99 99 08/15/18 11:24 08/15/18 11:55 08/15/18 12:20 Temperature Pulse Rate 105 H 94 H 98 H Respiratory Rate 26 H 24 26 H Blood Pressure 95/51 L 77/39 L 107/48 L Pulse Oximetry 100 100 100 08/15/18 12:31 08/15/18 13:15 Temperature Pulse Rate 98 H 83 Respiratory Rate 25 H 27 H Blood Pressure 70/30 L 70/40 L Pulse Oximetry 100 99 Intake & Output 08/14/18 08/15/18 08/15/18 18:59 06:59 18:59 Intake Total 350 / 350 Balance 350 / 350 Weight 71.214 kg Intake: IV 350 / 350 Azithromycin Inj 500 MG In NS 250 / 250 Inj 250 ML @ 250 mls/hr IV.SIG ONCE ONE Rx#:[id number] Rocephin Inj 2,000 MG In NS Inj 100 / 100 100 ML @ 200 mls/hr IV.SIG ONCE ONE Rx#:[id number] Narrative: General: Ill-appearing -English female who appears her stated age. Patient is lethargic critical appearing. However she is oriented HEENT: Normocephalic and atraumatic. EOM intact bilaterally. Pupils are reactive. Mild right facial droop Neck: Supple no JVD Chest: normal inspection of the chest. Scar from AICD placement on the left upper chest Resp: Air entry diminished in the right mid chest few crackles heard. No wheezes or rhonchi Rate: Tachycardic rate 95-100. S1-S2 heard normally. No murmurs. Normal sinus rhythm GI: Abdomen soft nontender no organomegaly Skin: No rashes or lesions noted, dry skin Neuro: Patient is awake alert oriented x3 slightly somnolent. She has mild right facial droop. Otherwise no definite focal motor deficits or sensory deficits Septic Shock Reassessment Septic shock perfusion: reassessment completed Assessment and Plan - Assessment and Plan Plan: ASSESSMENT: Septic shock Right middle lung pneumonia Lactic acidemia Acute on chronic kidney disease Supratherapeutic INR Mild troponin elevation SVT Respiratory insufficiency Systolic heart failure Cardiomyopathy ejection fraction 20-25% Chronic kidney disease Hypertension History of CVA in 2017 Chronic anticoagulation with Coumadin PLAN: NEURO: -Mild metabolic encephalopathy secondary to sepsis -Monitor neuro status closely -No evidence of new CVA at this time RESP: -Patient has right-sided pneumonia with lactic acidosis -She is at risk of resp decompensation needing endotracheal intubation and mechanical ventilation -DuoNeb every 2 hours as needed -Follow-up on sputum culture, ABX as below CV: -Normal saline IV fluids 2L bolus ordered by FP service -No further fluid resuscitation due to 2D echo previously showing EF 20-25% -Start Levophed to keep map above 65 -Art line for Rah Trac monitoring -Mild troponin elevation most likely related to demand -Hold diuresis due to septic shock -Trend lactic acid -Hold Coumadin -Received 25 mg IVP Cardizem for SVT, now in NSR GI: -N.p.o., IV famotidine : -Monitor renal function closely. Bradley catheter. -Consult nephrology ID: -Antibiotics with Zyvox cefepime and azithromycin -Blood urine and sputum cultures -Consolidate antibiotics per culture HEME: -Monitor CBC, coags -On Coumadin with supratherapeutic INR -Vitamin K given, transfuse 2 units of FFP to facilitate central line placement ENDO: -Electrolyte replacement per protocol PROPH: -Bilateral lower extremity SCDs. IV famotidine LINES: -Utilize peripheral IVs, place central line CC time 82 min Patient is very critical at this time. She is in profound septic shock systolic blood pressure remains in the low 70s lactic acid is 8.1 secondary to severe pneumonia and sepsis. Fluid resuscitation is limited because of EF 20%. Received 2 L will not continue fluid resuscitation. Vasopressors and inotropes will be used with caution. Nephrology consulted. Prognosis appears guarded Code Status: Full
[2018-08-15 14:11] LABS: ABG Base Excess -12.1 mmol/L (-2-2); ABG PCO2 24 mmHg (38-42); ABG PO2 164 mmHg (61-120)
[2018-08-15] MEDS ORDERED: Midazolam Inj 5 MG/ML 1 ML Vial ONE (15:16)
[2018-08-15 15:19] LABS: Troponin I 0.28 ng/mL (0.02-0.05)
[2018-08-15] MEDS ORDERED: Gelatin 12 MM/7 MM Topical Foam ONE (15:34)
--- NOTE | 2018-08-15 15:43 | P.PCN ---
Date of procedure: 08/15/18 Pre-op diagnosis: septic shock Post-op diagnosis: same Procedure: Ultrasound-guided left IJ central line Central line checklist completed, timeout completed. I wore a surgical cap, mask with protective eyewear, full gown and sterile gloves throughout the procedure. Left neck region was prepped using chlorhexidine scrub and draped in sterile fashion. The left IJ was identified using the ultrasound. Anesthesia was achieved over the vein using 1% lidocaine. The introducer needle was inserted into the left IJ under direct ultrasound visualization. Venous blood was withdrawn. The syringe was removed and a guidewire was advanced into the introducer needle. A small incision was made at the skin surface with a scalpel and the introducer needle was exchanged for a dilator over the guidewire. After appropriate dilation was obtained, the dilator was exchanged over the wire for a triple lumen, 7F, antibiotic coated central venous catheter. The wire was removed and the catheter was sutured in place at 18 cm. A suture was used instead of StatLock due to risk of dislodgment of the line from oozing as the INR is supratherapeutic. A sterile central line dressing was placed over the catheter at the insertion site. The patient tolerated the procedure without any hemodynamic compromise. At time of procedure completion, all ports aspirated and flushed properly. Post-procedure chest x-ray is pending at this time. Anesthesia: local Surgeon: Irene Nino Estimated blood loss (mL): 2 Pathology: none sent Condition: critical Disposition: ICU
[2018-08-15] MEDS ORDERED: SODIUM CHLOR 0.9% IV.SIG ONE (16:00)
[2018-08-15] MEDS ORDERED: PHYTONADIONE IV.SIG ONE (16:00)
--- NOTE | 2018-08-15 17:00 | XR ---
EXAM DATE: 08/15/2018 4:48 PM EST AGE/SEX: 67 years / Female INDICATIONS: Central line placement. CLINICAL DATA: This is the patient's subsequent encounter. Patient reports that signs and symptoms h ave been present for 2 days and indicates a pain score of 0/10. MEDICAL/SURGICAL HISTORY: Myocardial infarction. Pacemaker. COMPARISON: C, CHEST 1V SINGLE AP, 08/15/2018. . FINDINGS: Single view the chest and measured the left IJ central line is in good position. There is a right sub clavian bipolar pacer. The heart is enlarged. There is a moderate size right pleural effusion with so me adjacent atelectasis. There is no visible pneumothorax. CONCLUSION: Pleural effusion and consolidation right lung base persists. New left IJ central line are in excellen t position without evidence of pneumothorax. Electronically signed by: Tayo Singh MD Board Certified Radiologist 08/15/2018 4:58 PM EST
--- NOTE | 2018-08-15 18:23 | P.CONNP ---
<Lia Pinzon - Last Filed: 08/15/18 17:39> History of Present Illness Consult date: 08/15/18 Reason for Consult: Acute on chronic renal failure Primary Care Provider: Melissa Monreal MD, R[facility] Chief Complaint: Pneumonia hyotension History of Present Illness: She is a pleasant 67-year-old female who presented to the ER with complaints of generalized worsening weakness. She has a medical history of congestive heart failure, systolic cardiomyopathy with an EF of 25%, status post defibrillator placement May 2018, stage III chronic kidney disease and is currently a patient of Dr. López, CVA, CAD, hypertension, PA. Over the past few weeks she has had generalized weakness that has worsened today. This has been associated with emesis for the past few days and increased swelling to bilateral lower extremities, +4 pitting edema. She states that her urine output has been decreasing. Her appetite has been on and off, not great recently. 20 mg of IV Lasix was given in the ER. Per ER note heart rate increased up to the 170s, SVT of which Cardizem 25 mg was given, shortly after this dropped her blood pressure about 2 L of IV fluids were given, with no improvement in blood pressure. She was transferred to the ICU. She is currently on a pressor support, previous systolic blood pressure in the 70s, current blood pressure with pressor support 129/79. She is on nasal cannula, very weak, hardly able to answer questions. Denies any fever. Denies any diarrhea. Current BUN at 80, creatinine 2.72. Chest x-ray did reveal consolidation involving the right mid lung, possible infectious infiltrate. BNP of 4000. Review of Systems All other systems reviewed negative except as stated in HPI PMFSH - History History Provided By: Patient, Family Member - Medical History Medical History: Medical History (Last Reviewed 08/15/18 @ 17:50 by Lia Pinzon APRN) Cardiac defibrillator in place Bronchitis CHF (congestive heart failure) CKD (chronic kidney disease), stage III CVA (cerebral vascular accident) Coronary artery disease Fibromyalgia Hypertension Infection Myocardial infarction - Family History Family History: Family History (Last Reviewed 08/15/18 @ 14:18 by Irene Nino MD) Father CAD (coronary artery disease) Myocardial infarction Brother CAD (coronary artery disease) Myocardial infarction Other Malignant neoplasm - Social History I have reviewed the patient's Social History: Yes - Tobacco History Second Hand Smoke Exposure: No Tobacco Use In Past 30 Days: No Smoking Status: Never smoker - Alcohol History How Often Do You Have a Drink Containing Alcohol: Never - Substance Use History Substance History: No History of Abuse - Travel History Recent Travel in the [place] Within the Last 8 Weeks: No Recent Travel Out of the Country Within the Last 8 Weeks: No - Immunization History Tetanus Immunization: Unsure Medications and Allergies Allergies Allergy/AdvReac Type Severity Reaction Status Date / Time iodine Allergy Severe sneezing, Verified 08/15/18 08:37 chest tightness potassium iodide Allergy Severe sneezing, Verified 08/15/18 08:37 chest tightness povidone-iodine Allergy Severe sneezing, Verified 08/15/18 08:37 chest tightness sodium iodide Allergy Severe sneezing, Verified 08/15/18 08:37 chest tightness sodium iodide Allergy Severe sneezing, Verified 08/15/18 08:37 chest tightness sulfamethoxazole Allergy Intermediate abdominal Verified 08/15/18 08:37 pain trimethoprim Allergy Intermediate abdominal Verified 08/15/18 08:37 pain hydralazine Allergy Unknown Edema Verified 08/15/18 08:37 Statins Allergy Intermediate Hives Uncoded 08/15/18 08:37 Home Medications Medication Instructions Recorded Confirmed Type bumetanide 2 mg PO DAILY 05/21/18 08/15/18 History carvedilol 25 mg PO BID 05/21/18 08/15/18 History potassium chloride 20 meq PO DAILY 05/21/18 08/15/18 History spironolactone 50 mg PO DAILY 05/21/18 08/15/18 History warfarin 2 mg PO DAILY 08/15/18 08/15/18 History Active Medications: Active Medications Acetaminophen (Tylenol) 650 mg PO Q4H PRN PRN Reason: Temp > 100.4 Al Hydroxide/Mg Hydroxide (Milk Of Magnesia Liq) 30 ml PO Q12H PRN PRN Reason: Mild Constipation Bisacodyl (Dulcolax Supp) 10 mg RECTAL DAILY PRN PRN Reason: SEVERE CONSITIPATION Furosemide (Lasix Inj) 20 mg IV.PUSH BID@0900,1800 ANAHI Last Admin: 08/15/18 11:42 Dose: 20 mg Azithromycin 500 mg/ Sodium (Chloride) 250 mls @ 250 mls/hr IV.SIG Q24H ANAHI Metronidazole/Sodium Chloride (Flagyl 500 Mg Inj) 100 mls @ 100 mls/hr IV.SIG Q8H ANAHI Last Infusion: 08/15/18 17:05 Dose: Infused Norepinephrine Bitartrate (Levophed-Dextrose 4 Mg/250 Ml Drip) 4 mg in 250 mls @ 7.5 mls/hr IV.SIG TITRATE PRN; Protocol PRN Reason: Per Protocol Last Titration: 08/15/18 14:38 Dose: 5 mcg/min, 18.75 mls/hr Sodium Chloride (Ns Inj) 250 mls @ 15 mls/hr IV.SIG ONCE ANAHI Stop: 08/16/18 06:39 Last Admin: 08/15/18 16:06 Dose: Not Given Cefepime HCl 2,000 mg/ Sodium (Chloride) 100 mls @ 200 mls/hr IV.SIG Q8H ANAHI Last Infusion: 08/15/18 17:05 Dose: Infused Linezolid (Zyvox 600 Mg Premix) 300 mls @ 300 mls/hr IV.SIG Q12H ANAHI Last Infusion: 08/15/18 17:05 Dose: Infused Lactulose (Lactulose Liq) 30 ml PO DAILY PRN PRN Reason: SEVERE CONSITIPATION Ondansetron HCl (Zofran Inj) 4 mg IV.PUSH Q6H PRN PRN Reason: NAUSEA OR VOMITING Ondansetron HCl (Zofran Inj) 4 mg IV.PUSH Q6H PRN PRN Reason: NAUSEA OR VOMITING Ondansetron HCl (Zofran Odt) 4 mg PO Q6H PRN PRN Reason: NAUSEA OR VOMITING Potassium Chloride (K-Dur) 20 meq PO DAILY [facility] Promethazine HCl (Phenergan) 25 mg PO Q6H PRN PRN Reason: NAUSEA OR VOMITING Promethazine HCl (Phenergan Supp) 25 mg RECTAL Q6H PRN PRN Reason: NAUSEA OR VOMITING Senna/Docusate Sodium (Aleyda-Colace) 1 tab PO BID [facility] Sennosides (Senokot) 17.2 mg PO Q12H PRN PRN Reason: Moderate Constipation Sodium Chloride (Ns Flush) 2 ml IV.FLUSH BID ANAHI Sodium Chloride (Ns Flush) 2 ml IV.FLUSH UNSCH PRN PRN Reason: FLUSH AFTER USING IV ACCESS Terbutaline Sulfate (Brethine Inj) 1 mg SQ UNSCH PRN PRN Reason: For Extravasation Exam Vital signs: Vital Signs 08/15/18 07:47 08/15/18 08:02 08/15/18 08:23 Temperature 97.9 F Pulse Rate 174 H 101 H Respiratory Rate 20 26 H 25 H Blood Pressure 122/84 111/91 H 121/63 Pulse Oximetry 98 99 100 08/15/18 08:33 08/15/18 09:21 08/15/18 09:54 Temperature Pulse Rate 97 H 96 H 94 H Respiratory Rate 16 22 16 Blood Pressure 141/85 H 129/78 103/7 L Pulse Oximetry 98 99 99 08/15/18 11:24 08/15/18 11:55 08/15/18 12:20 Temperature Pulse Rate 105 H 94 H 98 H Respiratory Rate 26 H 24 26 H Blood Pressure 95/51 L 77/39 L 107/48 L Pulse Oximetry 100 100 100 08/15/18 12:31 08/15/18 13:15 08/15/18 14:18 Temperature Pulse Rate 98 H 83 95 H Respiratory Rate 25 H 27 H 24 Blood Pressure 70/30 L 70/40 L 90/76 L Pulse Oximetry 100 99 100 08/15/18 14:38 08/15/18 15:10 Temperature Pulse Rate 91 H 86 Respiratory Rate 19 25 H Blood Pressure 129/69 Pulse Oximetry 100 100 Intake & Output 08/14/18 08/15/18 08/15/18 18:59 06:59 18:59 Intake Total 1400.5 / 1400.5 Balance 1400.5 / 1400.5 Weight 71.214 kg Intake: IV 1400.5 / 1400.5 Azithromycin Inj 500 MG In NS 250 / 250 Inj 250 ML @ 250 mls/hr IV.SIG ONCE ONE Rx#:[id number] Maxipime Inj 2,000 MG In NS Inj 100 / 100 100 ML @ 200 mls/hr IV.SIG Q8H ANAHI Rx#:[id number] Zyvox 600 mg Premix 300 ML @ 300 / 300 300 mls/hr IV.SIG Q12H ANAHI Rx#: [id number] Vitamin K Inj 5 MG In NS Inj 50 50.5 / 50.5 ML @ 606 mls/hr IV.SIG ONCE ONE Rx#:[id number] NS Inj 1,000 ML @ 1000 mls/hr 500 / 500 IV.SIG BOLUS ANAHI Rx#:[id number] NS Inj 500 ML @ Wide Open IV. 0 / 0 SIG BOLUS ONE Rx#:[id number] Rocephin Inj 2,000 MG In NS Inj 100 / 100 100 ML @ 200 mls/hr IV.SIG ONCE ONE Rx#:[id number] Flagyl 500 MG Inj 100 ML @ 100 100 / 100 mls/hr IV.SIG Q8H [facility] Rx#: [id number] Narrative: GENERAL: Looks critically ill. SKIN: Cool and dry, intact, No lesions seen, +4 pitting edema to bilateral lower extremities, upper and lower legs. HEAD: Normocephalic. EYES: No scleral icterus. No injection or drainage. Pupils are equal and reactive to light. NECK: Supple, trachea midline. No JVD or lymphadenopathy. CARDIOVASCULAR: Regular rate and rhythm without murmurs, gallops, or rubs. PVCs noted. RESPIRATORY: Breath sounds equal bilaterally. No accessory muscle use. Breath sounds are clear bilaterally to auscultation. GASTROINTESTINAL: Abdomen soft, non-tender, nondistended. Postive BS in all 4 quadrants. BACK: Nontender without obvious deformity. No CVA tenderness. Results - Lab Results 08/15/18 08:10 08/15/18 08:10 Most recent lab results ABG pH 7.34 (7.380-7.420) L 08/15/18 14:04 ABG pCO2 24 mmHg (38-42) L* 08/15/18 14:04 ABG pO2 164 mmHg (61-120) H 08/15/18 14:04 ABG HCO3 13 mmol/L (22-26) L* 08/15/18 14:04 Calcium 8.6 mg/dL (8.5-10.1) 08/15/18 08:10 - Image Kidney/bladder ultrasound: other (Chest x-ray reveals consolidation involving the right mid lung with possible infectious infiltrate) Assessment and Plan - Assessment (1) Acute kidney injury superimposed on CKD Code(s): N17.9 - Acute kidney failure, unspecified; N18.9 - Chronic kidney disease, unspecified Status: Acute Plan: BUN 80, creatinine of 2.72 Critically ill, worsening kidney function likely secondary to sepsis. Metabolic acidosis Lactic acid of 8.1, blood pressure with pressor support, previously in the 70s systolic, currently 129/69. IV fluid resuscitation in the ER, 2 L,, with no improvement in blood pressure. Systolic cardiomyopathy with an EF of 25%, AICD placed in May of last year. Chest x-ray revealed consolidation involving the right mid lung, possible infectious infiltrate 20 mg IV Lasix given in the ER, presentation, also looks to be fluid overload, CHF Antibiotics administered, cefepime, Zyvox, and Flagyl Urinalysis with 100 protein. Albumin at 3 -Diuretics contraindicated at this time in the setting of sepsis -Albumin low, will administer albumin to help with some vascular support -We will check a urine creatinine and urine sodium -We will administer sodium bicarbonate 650 mg 3 times daily. -If urine output does not improve, will likely need dialysis <Gabi James - Last Filed: 08/16/18 01:07> History of Present Illness Primary Care Provider: Melissa Monreal MD, [address] - Medical History Medical History: Medical History (Last Reviewed 08/15/18 @ 17:50 by Lia Pinzon APRN) Cardiac defibrillator in place Bronchitis CHF (congestive heart failure) CKD (chronic kidney disease), stage III CVA (cerebral vascular accident) Coronary artery disease Fibromyalgia Hypertension Infection Myocardial infarction - Family History Family History: Family History (Last Reviewed 08/15/18 @ 14:18 by Irene Nino MD) Father CAD (coronary artery disease) Myocardial infarction Brother CAD (coronary artery disease) Myocardial infarction Other Malignant neoplasm Medications and Allergies Active Medications: Active Medications Acetaminophen (Tylenol) 650 mg PO Q4H PRN PRN Reason: Temp > 100.4 Al Hydroxide/Mg Hydroxide (Milk Of Everardo Liq) 30 ml PO Q12H PRN PRN Reason: Mild Constipation Bisacodyl (Dulcolax Supp) 10 mg RECTAL DAILY PRN PRN Reason: SEVERE CONSITIPATION Chlorhexidine Gluconate (Chlorhexidine 2% Cloth) 3 pack TOPICAL DAILY@0400 ANAHI Stop: 08/21/18 03:59 Chlorhexidine Gluconate (Chlorhexidine 2% Cloth) 3 pack TOPICAL DAILY@0400 PRN PRN Reason: Extra cloth needed Stop: 08/21/18 03:59 Furosemide (Lasix Inj) 20 mg IV.PUSH BID@0900,1800 [facility] Last Admin: 08/15/18 11:42 Dose: 20 mg Azithromycin 500 mg/ Sodium (Chloride) 250 mls @ 250 mls/hr IV.SIG Q24H ANAHI Metronidazole/Sodium Chloride (Flagyl 500 Mg Inj) 100 mls @ 100 mls/hr IV.SIG Q8H [facility] Last Admin: 08/15/18 23:30 Dose: 100 mls/hr Norepinephrine Bitartrate (Levophed-Dextrose 4 Mg/250 Ml Drip) 4 mg in 250 mls @ 7.5 mls/hr IV.SIG TITRATE PRN; Protocol PRN Reason: Per Protocol Last Titration: 08/16/18 00:53 Dose: 2 mcg/min, 7.5 mls/hr Sodium Chloride (Ns Inj) 250 mls @ 15 mls/hr IV.SIG ONCE [facility] Stop: 08/16/18 06:39 Last Admin: 08/15/18 16:06 Dose: Not Given Cefepime HCl 2,000 mg/ Sodium (Chloride) 100 mls @ 200 mls/hr IV.SIG Q8H [facility] Last Infusion: 08/16/18 00:27 Dose: Infused Linezolid (Zyvox 600 Mg Premix) 300 mls @ 300 mls/hr IV.SIG Q12H [facility] Last Infusion: 08/15/18 17:05 Dose: Infused Albumin Human (Flexbumin 25% Inj) 100 mls @ 60 mls/hr IV.SIG Q6HR [facility] Last Admin: 08/15/18 23:32 Dose: 60 mls/hr Lactulose (Lactulose Liq) 30 ml PO DAILY PRN PRN Reason: SEVERE CONSITIPATION Ondansetron HCl (Zofran Inj) 4 mg IV.PUSH Q6H PRN PRN Reason: NAUSEA OR VOMITING Ondansetron HCl (Zofran Odt) 4 mg PO Q6H PRN PRN Reason: NAUSEA OR VOMITING Potassium Chloride (K-Dur) 20 meq PO DAILY [facility] Promethazine HCl (Phenergan) 25 mg PO Q6H PRN PRN Reason: NAUSEA OR VOMITING Promethazine HCl (Phenergan Supp) 25 mg RECTAL Q6H PRN PRN Reason: NAUSEA OR VOMITING Senna/Docusate Sodium (Aleyda-Colace) 1 tab PO BID [facility] Last Admin: 08/15/18 20:56 Dose: 1 tab Sennosides (Senokot) 17.2 mg PO Q12H PRN PRN Reason: Moderate Constipation Sodium Bicarbonate (Sodium Bicarbonate) 650 mg PO TID [facility] Last Admin: 08/15/18 20:56 Dose: 650 mg Sodium Chloride (Ns Flush) 2 ml IV.FLUSH BID [facility] Last Admin: 08/15/18 20:56 Dose: 2 ml Sodium Chloride (Ns Flush) 2 ml IV.FLUSH UNSCH PRN PRN Reason: FLUSH AFTER USING IV ACCESS Terbutaline Sulfate (Brethine Inj) 1 mg SQ UNSCH PRN PRN Reason: For Extravasation Exam Vital signs: Vital Signs 08/15/18 07:47 08/15/18 08:02 08/15/18 08:23 Temperature 97.9 F Pulse Rate 174 H 101 H Respiratory Rate 20 26 H 25 H Blood Pressure 122/84 111/91 H 121/63 Pulse Oximetry 98 99 100 08/15/18 08:33 08/15/18 09:21 08/15/18 09:54 Temperature Pulse Rate 97 H 96 H 94 H Respiratory Rate 16 22 16 Blood Pressure 141/85 H 129/78 103/7 L Pulse Oximetry 98 99 99 08/15/18 11:24 08/15/18 11:55 08/15/18 12:20 Temperature Pulse Rate 105 H 94 H 98 H Respiratory Rate 26 H 24 26 H Blood Pressure 95/51 L 77/39 L 107/48 L Pulse Oximetry 100 100 100 08/15/18 12:31 08/15/18 13:15 08/15/18 14:18 Temperature Pulse Rate 98 H 83 95 H Respiratory Rate 25 H 27 H 24 Blood Pressure 70/30 L 70/40 L 90/76 L Pulse Oximetry 100 99 100 08/15/18 14:38 08/15/18 15:10 08/15/18 16:00 Temperature 96.3 F L Pulse Rate 91 H 86 92 H Respiratory Rate 19 25 H 16 Blood Pressure 129/69 108/77 Pulse Oximetry 100 100 100 08/15/18 17:00 08/15/18 18:00 08/15/18 19:00 Temperature Pulse Rate 92 H 89 89 Respiratory Rate 18 16 14 Blood Pressure 111/67 130/62 109/87 Pulse Oximetry 100 100 99 08/15/18 20:00 08/15/18 21:00 08/15/18 22:00 Temperature 96.9 F L Pulse Rate 90 92 H 90 Respiratory Rate 13 25 H 16 Blood Pressure 121/78 113/86 129/73 Pulse Oximetry 100 100 91 L 08/15/18 23:00 08/16/18 00:00 Temperature 96.6 F L Pulse Rate 90 92 H Respiratory Rate 14 17 Blood Pressure 122/80 116/74 Pulse Oximetry 100 86 L Intake & Output 08/15/18 08/15/18 08/16/18 06:59 18:59 06:59 Intake Total 1750.5 / 1750.5 100 / 100 Output Total Balance 1740.5 / 1740.5 100 / 100 Weight 71.214 kg Intake: IV 1400.5 / 1400.5 100 / 100 Azithromycin Inj 500 MG In NS 250 / 250 Inj 250 ML @ 250 mls/hr IV.SIG ONCE ONE Rx#:[id number] Maxipime Inj 2,000 MG In NS Inj 100 / 100 100 / 100 100 ML @ 200 mls/hr IV.SIG Q8H ANAHI Rx#:[id number] Zyvox 600 mg Premix 300 ML @ 300 / 300 300 mls/hr IV.SIG Q12H [facility]NA[facility] Rx#: [id number] Vitamin K Inj 5 MG In NS Inj 50 50.5 / 50.5 ML @ 606 mls/hr IV.SIG ONCE ONE Rx#:[id number] NS Inj 1,000 ML @ 1000 mls/hr 500 / 500 IV.SIG BOLUS ANAHI Rx#:[id number] NS Inj 500 ML @ Wide Open IV. 0 / 0 SIG BOLUS ONE Rx#:[id number] Rocephin Inj 2,000 MG In NS Inj 100 / 100 100 ML @ 200 mls/hr IV.SIG ONCE ONE Rx#:[id number] Flagyl 500 MG Inj 100 ML @ 100 100 / 100 mls/hr IV.SIG Q8H ANA[facility] Rx#: [id number] Oral 350 / 350 Output: Urine Amount (Catheter) Indwelling Urethral Catheter Results - Lab Results 08/15/18 08:10 08/15/18 18:39 Most recent lab results ABG pH 7.34 (7.380-7.420) L 08/15/18 14:04 ABG pCO2 24 mmHg (38-42) L* 08/15/18 14:04 ABG pO2 164 mmHg (61-120) H 08/15/18 14:04 ABG HCO3 13 mmol/L (22-26) L* 08/15/18 14:04 Calcium 7.8 mg/dL (8.5-10.1) L D 08/15/18 18:39 Assessment and Plan - Assessment (1) Acute kidney injury superimposed on CKD Code(s): N17.9 - Acute kidney failure, unspecified; N18.9 - Chronic kidney disease, unspecified Status: Acute - Attending Attestation Patient seen and examined, I discussed care with OPAL Fitzgerald, staff and patient she is at risk of going on dialysis this was discussed with her as urine output has dropped, she will get albumin Follow BMP
[2018-08-15 19:39] LABS: Alanine Aminotransferase 28 U/L (10-53); Albumin 2.4 g/dL (3.4-5.0); Anion Gap 17 meq/L (5-15); Aspartate Aminotransferase 65 U/L (15-37); Blood Urea Nitrogen 78 mg/dL (7-18); Calcium 7.8 mg/dL (8.5-10.1); Carbon Dioxide 19.8 meq/L (21.0-32.0); Chloride 102 meq/L (98-107); Glomerular Filtration Rate 21 mL/min (>89); Glucose,Random 81 mg/dL (74-106); Potassium 3.8 meq/L (3.5-5.1); Sodium 139 meq/L (136-145)
[2018-08-15 19:46] LABS: Alkaline Phosphatase 83 U/L (45-117); Total Protein 5.5 g/dL (6.4-8.2)
--- NOTE | 2018-08-15 20:03 | ECG ---
Date Performed: 08/15/2018 Time Performed: 08:09:10 PTAGE: 67 years EKG: SUPRAVENTRICULAR TACHYCARDIA POSSIBLE ANTERIOR MYOCARDIAL INFARCTION ABNORMAL RHYTHM ECG PREVIOUS TRACING : 06/01/2018 00.43 Compared to previous tracing, SVT is new DOCTOR: Severo Garvey Interpretating Date/Time 08/15/2018 20:01:30
[2018-08-15 20:37] LABS: Troponin I 0.45 ng/mL (0.02-0.05)
[2018-08-15] MEDS: Sodium Bicarbonate 650 MG Tablet PO SCH (20:56)
[2018-08-15] MEDS: Senna/Docusate Sodium 8.6/50 MG Tablet PO SCH (20:56)
[2018-08-15] MEDS: Albumin Human 25% Inj 100 ML IV.SIG SCH (23:32)
[2018-08-16] MEDS: Chlorhexidine Gluconate 2% 1 Pack (2 Cloths) TOPICAL SCH (03:36)
[2018-08-16] MEDS ORDERED: Chlorhexidine Gluconate 2% 1 Pack (2 Cloths) TOPICAL PRN (04:00)
[2018-08-16 04:33] LABS: INR 5.2 Ratio; Prothrombin Time 51.8 sec (9.8-11.6)
[2018-08-16 04:50] LABS: Albumin 2.9 g/dL (3.4-5.0); Anion Gap 20 meq/L (5-15); Aspartate Aminotransferase 62 U/L (15-37); Blood Urea Nitrogen 83 mg/dL (7-18); Calcium 8.4 mg/dL (8.5-10.1); Carbon Dioxide 17.2 meq/L (21.0-32.0); Chloride 102 meq/L (98-107); Glomerular Filtration Rate 19 mL/min (>89); Glucose,Random 73 mg/dL (74-106); Potassium 4.1 meq/L (3.5-5.1); Sodium 139 meq/L (136-145)
[2018-08-16 04:53] LABS: Alanine Aminotransferase 30 U/L (10-53); Alkaline Phosphatase 80 U/L (45-117); Total Protein 6.1 g/dL (6.4-8.2)
[2018-08-16] MEDS: Albumin Human 25% Inj 100 ML IV.SIG SCH ×3 (05:21→18:20)
[2018-08-16] MEDS: Senna/Docusate Sodium 8.6/50 MG Tablet PO SCH ×2 (08:16→20:52)
[2018-08-16] MEDS: Sodium Bicarbonate 650 MG Tablet PO SCH ×3 (08:17→18:03)
--- NOTE | 2018-08-16 09:57 | P.PNCC ---
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 Patient also had productive cough and frothy sputum, sometimes blood tinged. She also complained about declining urinary output. Initial ER workup showed a normal white count, however BUN was elevated at 80 and creatinine 2.72. BNP was more than 4000. Chest x-ray showed right midlung infiltrate. Patient received Rocephin and azithromycin for community-acquired pneumonia. Patient was admitted to the [facility]. After admission due to the shortness of breath pedal edema and elevated BNP [facility] gave the patient 20 mg IV Lasix but without much urine output. Initially patient had HR of 170's EKG appeared to be SVT and patient converted to NSR with IV Cardizem 25 mg. However patient's blood pressure started to decline. Because of this patient was given IV fluid boluses total 1.5 L had been given. Systolic blood pressure remains at 70s. Lactic acid was checked and was 8.1. With this information critical care medicine was consulted I evaluated the patient emergently. She is lethargic but wakes up easily answers questions. Still profoundly hypotensive despite 1.5 L bolus. I have ordered additional 500 mL bolus and will start Levophed at 5 mcg/min and titrate as needed. It was noted had that her INR is 5.2. Patient may benefit from inotropic agents if blood pressure improves. Antibiotics had been broadened into cefepime and azithromycin, I will also add IV Zyvox. Hold all further diuresis due to septic shock. Patient is very critical at this time 08/16: Patient sitting up in bed. Off Levophed however urine output is minimal only 75 mL urine output since admission. CVP remains elevated at 14-15. I will attempt forced diuresis with Bumex 2 mg x1 and Bumex 0.5 mg/h infusion. If no response may need hemodialysis. Follow-up chest x-ray today is pending. Chest x-ray shows persistent right sided infiltrate and effusion Objective Vital Signs / I&O: Vital Signs 08/15/18 11:24 08/15/18 11:55 08/15/18 12:20 Temperature Pulse Rate 105 H 94 H 98 H Respiratory Rate 26 H 24 26 H Blood Pressure 95/51 L 77/39 L 107/48 L Pulse Oximetry 100 100 100 08/15/18 12:31 08/15/18 13:15 08/15/18 14:18 Temperature Pulse Rate 98 H 83 95 H Respiratory Rate 25 H 27 H 24 Blood Pressure 70/30 L 70/40 L 90/76 L Pulse Oximetry 100 99 100 08/15/18 14:38 08/15/18 15:10 08/15/18 16:00 Temperature 96.3 F L Pulse Rate 91 H 86 92 H Respiratory Rate 19 25 H 16 Blood Pressure 129/69 108/77 Pulse Oximetry 100 100 100 08/15/18 17:00 08/15/18 18:00 08/15/18 19:00 Temperature Pulse Rate 92 H 89 89 Respiratory Rate 18 16 14 Blood Pressure 111/67 130/62 109/87 Pulse Oximetry 100 100 99 08/15/18 20:00 08/15/18 21:00 08/15/18 22:00 Temperature 96.9 F L Pulse Rate 90 92 H 90 Respiratory Rate 13 25 H 16 Blood Pressure 121/78 113/86 129/73 Pulse Oximetry 100 100 91 L 08/15/18 23:00 08/16/18 00:00 08/16/18 01:00 Temperature 96.6 F L Pulse Rate 90 92 H 91 H Respiratory Rate 14 17 18 Blood Pressure 122/80 116/74 133/85 Pulse Oximetry 100 86 L 100 08/16/18 02:00 08/16/18 03:00 08/16/18 04:00 Temperature 97.4 F L Pulse Rate 92 H 93 H 92 H Respiratory Rate 18 21 15 Blood Pressure 122/92 H 112/84 115/76 Pulse Oximetry 100 97 100 08/16/18 05:00 08/16/18 06:00 08/16/18 07:00 Temperature Pulse Rate 89 89 87 Respiratory Rate 24 16 15 Blood Pressure 108/80 112/62 122/78 Pulse Oximetry 100 100 100 08/16/18 08:00 08/16/18 09:00 08/16/18 09:33 Temperature Pulse Rate 86 86 Respiratory Rate 19 19 Blood Pressure 103/75 101/79 Pulse Oximetry 100 98 96 Intake & Output 08/15/18 08/16/18 08/16/18 18:59 06:59 18:59 Intake Total 1750.5 / 1750.5 850 / 850 200 / 200 Output Total 75 / 75 Balance 1740.5 / 1740.5 775 / 775 200 / 200 Weight 71.214 kg 85.5 kg Intake: IV 1400.5 / 1400.5 700 / 700 200 / 200 Flexbumin 25% Inj 100 ML @ 60 200 / 200 mls/hr IV.SIG Q6HR ANAHI Rx#: [id number] Azithromycin Inj 500 MG In NS 250 / 250 Inj 250 ML @ 250 mls/hr IV.SIG ONCE ONE Rx#:[id number] Maxipime Inj 2,000 MG In NS Inj 100 / 100 100 / 100 100 / 100 100 ML @ 200 mls/hr IV.SIG Q8H ANAHI Rx#:[id number] Zyvox 600 mg Premix 300 ML @ 300 / 300 300 / 300 300 mls/hr IV.SIG Q12H ANAHI Rx#: [id number] Vitamin K Inj 5 MG In NS Inj 50 50.5 / 50.5 ML @ 606 mls/hr IV.SIG ONCE ONE Rx#:[id number] NS Inj 1,000 ML @ 1000 mls/hr 500 / 500 IV.SIG BOLUS ANAHI Rx#:[id number] NS Inj 500 ML @ Wide Open IV. 0 / 0 SIG BOLUS ONE Rx#:[id number] Rocephin Inj 2,000 MG In NS Inj 100 / 100 100 ML @ 200 mls/hr IV.SIG ONCE ONE Rx#:[id number] Flagyl 500 MG Inj 100 ML @ 100 100 / 100 100 / 100 100 / 100 mls/hr IV.SIG Q8H ANAHI Rx#: [id number] Oral 350 / 350 150 / 150 Output: Urine 75 / 75 Urine Amount (Catheter) Indwelling Urethral Catheter Other: # Bowel Movements 0 Result Diagrams: 08/15/18 08:10 08/16/18 03:45 Objective Remarks: General: Ill-appearing -Algerian female who appears her stated age. Patient is lethargic critical appearing. However she is oriented HEENT: Normocephalic and atraumatic. EOM intact bilaterally. Pupils are reactive. Mild right facial droop Neck: Supple no JVD Chest: normal inspection of the chest. Scar from AICD placement on the left upper chest. AICD now in right upper chest Resp: Air entry diminished in the right mid chest few crackles heard. No wheezes or rhonchi Rate: S1-S2 heard normally. No murmurs. Normal sinus rhythm GI: Abdomen soft nontender no organomegaly Skin: No rashes or lesions noted, dry skin Neuro: Patient is awake alert oriented x3. She has mild right facial droop. Otherwise no definite focal motor deficits or sensory deficits Assessment and Plan - Assessment and Plan Plan: ASSESSMENT: Septic shock-improving Right sided pneumonia, with effusion Lactic acidemia Acute on chronic kidney disease Supratherapeutic INR Mild troponin elevation SVT-resolved Respiratory insufficiency Systolic heart failure Cardiomyopathy ejection fraction 20-25% Chronic kidney disease Hypertension History of CVA in 2017 Chronic anticoagulation with Coumadin PLAN: NEURO: -Mild metabolic encephalopathy secondary to sepsis -Monitor neuro status closely -No evidence of new CVA at this time RESP: -Patient has right-sided pneumonia with lactic acidosis -CXR today shows right-sided effusion. Plan for bedside ultrasound for possible thoracentesis -She is still at risk of resp decompensation needing endotracheal intubation and mechanical ventilation -DuoNeb every 2 hours as needed -Follow-up on sputum culture, ABX as below CV: -Normal saline IV fluids 2L bolus ordered by FP service -No further fluid resuscitation due to 2D echo previously showing EF 20-25% -Due to increased CVP and oliguria, start Bumex 2 mg IV push x1 and infusion at 0.5 mg/h -Mild troponin elevation most likely related to demand -Hold diuresis due to septic shock, trend lactic acid -Holding Coumadin -Received 25 mg IVP Cardizem for SVT, now in NSR GI: -N.p.o., IV famotidine : -Monitor renal function closely. Bradley catheter. -Nephrology Dr. James following -Start Bumex 2 mg IV push x1 and infusion at 0.5 mg/h ID: -Antibiotics with Zyvox cefepime and azithromycin -Follow blood urine and sputum cultures -Consolidate antibiotics per culture HEME: -Monitor CBC, coags -On Coumadin with supratherapeutic INR-currently on hold -Vitamin K given, repeat INR in a.m. ENDO: -Electrolyte replacement PROPH: -Bilateral lower extremity SCDs. IV famotidine LINES: -Utilize peripheral IVs, left IJ central line placed 08/15/2018 CC time 42 min Patient is very critical at this time even though stabilized. Her shock has improved however lactic acidosis due improving persist. She is anuric and I have started Bumex infusion. She may need hemodialysis initiated. Fluid resuscitation is limited because of EF 20%. Received 2 L will not continue fluid resuscitation. Prognosis appears guarded
[2018-08-16] MEDS ORDERED: Sodium Chlor 0.9% Inj 250 ML IV.SIG SCH (11:00)
[2018-08-16] MEDS ORDERED: Bumetanide Inj 25 MG/100 ML BAG IV.CONT SCH (11:00)
[2018-08-16] MEDS ORDERED: Morphine Sulfate Inj 2 MG/ML Vial IM ONE (12:08)
--- NOTE | 2018-08-16 13:01 | ECG ---
Date Performed: 08/15/2018 Time Performed: 20:37:11 PTAGE: 67 years EKG: Sinus rhythm WITH OCCASIONAL SUPRAVENTRICULAR PREMATURE COMPLEXES NONSPECIFIC T-WAVE ABNORMALITY ABNORMAL ECG Sin ce PREVIOUS TRACING , no significant change noted PREVIOUS TRACIN08/15/2018 12.10 DOCTOR: Dameon Miller Interpretating Date/Time 08/16/2018 12:59:07
[2018-08-16] MEDS: Azithromycin Inj 500 MG in Sodium Chlor 0.9% Inj 250 ML IV.SIG SCH (13:10)
--- NOTE | 2018-08-16 13:10 | ECG ---
Date Performed: 08/15/2018 Time Performed: 12:10:19 PTAGE: 67 years EKG: Sinus rhythm WITH FREQUENT VENTRICULAR PREMATURE COMPLEXES NONSPECIFIC T-WAVE CHANGES ABNORMAL RHYTHM ECG Compare d to PREVIOUS TRACING , SVT has resolved PREVIOUS TRACIN08/15/2018 08.09 DOCTOR: Dameon Miller Interpretating Date/Time 08/16/2018 13:09:22
--- NOTE | 2018-08-16 13:18 | P.PCN ---
Date of procedure: 08/16/18 Pre-op diagnosis: Pneumonia, large pl effusion Post-op diagnosis: same Procedure: CONSENT: Consent was obtained from patient prior to the procedure. Indications, risks, and benefits were explained at length. PROCEDURE SUMMARY: A time out was performed and the chest x-ray was reviewed, the appropriate side was confirmed and marked with US. My hands were washed immediately prior to the procedure. I wore a surgical cap, mask with protective eyewear, sterile gown and sterile gloves throughout the procedure. The patient was prepped and draped in a sterile manner using chlorhexidine scrub after the appropriate level was percussed and confirmed by ultrasound. 1% lidocaine was used to anesthetize the skin, subcutaneous tissue, superior aspect of the rib periosteum and parietal pleura. A thoracentesis angiocath was then introduced over the superior aspect of the rib into the pleural fluid and yellow slightly cloudy pleural fluid was aspirated. The needle was removed and angiocath was then threaded without difficulty. 950 ml of slightly cloudy, yellow colored fluid was removed without difficulty. The catheter was then removed. No immediate complications were noted during the procedure. A post-procedure chest x-ray is pending at the time of this note. The fluid will be sent for studies. Anesthesia: local Surgeon: Irene Nino Estimated blood loss (mL): 1 Pathology: other (pl fluid) Condition: critical Disposition: ICU
--- NOTE | 2018-08-16 13:40 | P.PNFP ---
Subjective Interval history: Patient seen and examined this am. Patient reports she feels better this morning. SOB has improved. Denies CP, fever, chills, or n/v. Patient will be undergoing drainage of Right pleural effusion and will be receiving additional units of FFP due to continued INR of 5. <Bebe Camargo - 08/16/18 15:36> Results - Labs Result diagrams: 08/16/18 15:00 08/16/18 15:00 <Brannon Willard - 08/16/18 21:37> Abnormal lab results 08/16/18 08/16/18 08/16/18 Range/Units 03:45 03:45 03:45 RBC (4.00-5.30) mil/mm3 Hgb (11.6-15.3) gm/dL Hct (35.0-46.0) % MCV (80.0-100.0) fL MCH (27.0-34.0) pg RDW (11.6-17.2) % [place] % (Auto) (0.0-8.0) % [place] # (Auto) (0.0-0.9) th/mm3 PT 51.8 H (9.8-11.6) sec ABG pH (7.380-7.420) ABG pCO2 (38-42) mmHg ABG pO2 (61-120) mmHG ABG HCO3 (22-26) mmol/L ABG Base Excess (-2-2) mmol/L Hemoglobin (12.0-16.0) G/DL Carbon Dioxide 17.2 L (21.0-32.0) meq/L Anion Gap 20 H (5-15) meq/L BUN 83 H (7-18) mg/dL Creatinine 2.96 H (0.50-1.00) mg/dL Estimated GFR 19 L (>89) mL/min POC Glucose (68-110) mg/dl Random Glucose 73 L (74-106) mg/dL Lactic Acid (0.4-2.0) mmol/L Calcium 8.4 L (8.5-10.1) mg/dL Calcium Adj for Albumin (8.5-10.1) mg/dL Total Bilirubin 2.9 H (0.2-1.0) mg/dL AST 62 H (15-37) U/L B-Natriuretic Peptide 4070 H (0-100) pg/mL Total Protein 6.1 L D (6.4-8.2) g/dL Albumin 2.9 L (3.4-5.0) g/dL Pleural RBC (0-0) /mm3 Pleural Nuc Cells (0-10) /mm3 08/16/18 08/16/18 08/16/18 Range/Units 09:10 13:20 14:45 RBC (4.00-5.30) mil/mm3 Hgb (11.6-15.3) gm/dL Hct (35.0-46.0) % MCV (80.0-100.0) fL MCH (27.0-34.0) pg RDW (11.6-17.2) % [place] % (Auto) (0.0-8.0) % [place] # (Auto) (0.0-0.9) th/mm3 PT (9.8-11.6) sec ABG pH (7.380-7.420) ABG pCO2 (38-42) mmHg ABG pO2 (61-120) mmHG ABG HCO3 (22-26) mmol/L ABG Base Excess (-2-2) mmol/L Hemoglobin (12.0-16.0) G/DL Carbon Dioxide (21.0-32.0) meq/L Anion Gap (5-15) meq/L BUN (7-18) mg/dL Creatinine (0.50-1.00) mg/dL Estimated GFR (>89) mL/min POC Glucose 123 H (68-110) mg/dl Random Glucose (74-106) mg/dL Lactic Acid 5.1 H* (0.4-2.0) mmol/L Calcium (8.5-10.1) mg/dL Calcium Adj for Albumin (8.5-10.1) mg/dL Total Bilirubin (0.2-1.0) mg/dL AST (15-37) U/L B-Natriuretic Peptide (0-100) pg/mL Total Protein (6.4-8.2) g/dL Albumin (3.4-5.0) g/dL Pleural RBC 1633 H (0-0) /mm3 Pleural Nuc Cells 230 H (0-10) /mm3 08/16/18 08/16/18 08/16/18 Range/Units 15:00 15:00 15:00 RBC 3.95 L (4.00-5.30) mil/mm3 Hgb 9.8 L D (11.6-15.3) gm/dL Hct 30.5 L (35.0-46.0) % MCV 77.3 L (80.0-100.0) fL MCH 24.7 L (27.0-34.0) pg RDW 18.2 H (11.6-17.2) % [place] % (Auto) 12.3 H (0.0-8.0) % [place] # (Auto) 1.2 H (0.0-0.9) th/mm3 PT (9.8-11.6) sec ABG pH (7.380-7.420) ABG pCO2 (38-42) mmHg ABG pO2 (61-120) mmHG ABG HCO3 (22-26) mmol/L ABG Base Excess (-2-2) mmol/L Hemoglobin (12.0-16.0) G/DL Carbon Dioxide (21.0-32.0) meq/L Anion Gap 18 H (5-15) meq/L BUN 83 H (7-18) mg/dL Creatinine 3.10 H (0.50-1.00) mg/dL Estimated GFR 18 L (>89) mL/min POC Glucose (68-110) mg/dl Random Glucose 181 H D (74-106) mg/dL Lactic Acid 13.6 H* (0.4-2.0) mmol/L Calcium 13.6 H* D (8.5-10.1) mg/dL Calcium Adj for Albumin 14.6 H* (8.5-10.1) mg/dL Total Bilirubin (0.2-1.0) mg/dL AST (15-37) U/L B-Natriuretic Peptide (0-100) pg/mL Total Protein (6.4-8.2) g/dL Albumin 2.8 L (3.4-5.0) g/dL Pleural RBC (0-0) /mm3 Pleural Nuc Cells (0-10) /mm3 08/16/18 08/16/18 08/16/18 Range/Units 15:18 15:53 20:15 RBC (4.00-5.30) mil/mm3 Hgb (11.6-15.3) gm/dL Hct (35.0-46.0) % MCV (80.0-100.0) fL MCH (27.0-34.0) pg RDW (11.6-17.2) % [place] % (Auto) (0.0-8.0) % [place] # (Auto) (0.0-0.9) th/mm3 PT 22.6 H D (9.8-11.6) sec ABG pH 7.30 L (7.380-7.420) ABG pCO2 28 L (38-42) mmHg ABG pO2 499 H (61-120) mmHG ABG HCO3 13 L* (22-26) mmol/L ABG Base Excess -11.8 L (-2-2) mmol/L Hemoglobin 9.2 L (12.0-16.0) G/DL Carbon Dioxide (21.0-32.0) meq/L Anion Gap (5-15) meq/L BUN (7-18) mg/dL Creatinine (0.50-1.00) mg/dL Estimated GFR (>89) mL/min POC Glucose (68-110) mg/dl Random Glucose (74-106) mg/dL Lactic Acid 10.5 H* (0.4-2.0) mmol/L Calcium (8.5-10.1) mg/dL Calcium Adj for Albumin (8.5-10.1) mg/dL Total Bilirubin (0.2-1.0) mg/dL AST (15-37) U/L B-Natriuretic Peptide (0-100) pg/mL Total Protein (6.4-8.2) g/dL Albumin (3.4-5.0) g/dL Pleural RBC (0-0) /mm3 Pleural Nuc Cells (0-10) /mm3 Short CBC 08/16/18 Range/Units 15:00 WBC 9.9 (4.0-11.0) th/mm3 Hgb 9.8 L D (11.6-15.3) gm/dL Hct 30.5 L (35.0-46.0) % Plt Count 212 D (150-450) th/mm3 BMP 08/16/18 08/16/18 03:45 15:00 Sodium 139 145 Potassium 4.1 4.7 Chloride 102 103 Carbon Dioxide 17.2 L 24.0 BUN 83 H 83 H Creatinine 2.96 H 3.10 H Calcium 8.4 L 13.6 H* D Liver Function 08/16/18 08/16/18 Range/Units 03:45 15:00 Total Bilirubin 2.9 H (0.2-1.0) mg/dL AST 62 H (15-37) U/L ALT 30 (10-53) U/L Alkaline Phosphatase 80 (45-117) U/L Albumin 2.9 L 2.8 L (3.4-5.0) g/dL <Brannon Willard - 08/16/18 21:37> Abnormal lab results 08/15/18 08/15/18 08/15/18 Range/Units 12:52 14:04 14:40 PT (9.8-11.6) sec ABG pH 7.34 L (7.380-7.420) ABG pCO2 24 L* (38-42) mmHg ABG pO2 164 H (61-120) mmHg ABG HCO3 13 L* (22-26) mmol/L ABG Base Excess -12.1 L (-2-2) mmol/L Hemoglobin 10.9 L (12.0-16.0) G/DL Carbon Dioxide (21.0-32.0) meq/L Anion Gap (5-15) meq/L BUN (7-18) mg/dL Creatinine (0.50-1.00) mg/dL Estimated GFR (>89) mL/min Random Glucose (74-106) mg/dL Lactic Acid (0.4-2.0) mmol/L Calcium (8.5-10.1) mg/dL Total Bilirubin (0.2-1.0) mg/dL AST (15-37) U/L Troponin I 0.28 H D (0.02-0.05) ng/mL B-Natriuretic Peptide 4211 H (0-100) pg/mL Total Protein (6.4-8.2) g/dL Albumin (3.4-5.0) g/dL 08/15/18 08/15/18 08/15/18 Range/Units 18:39 19:58 19:58 PT (9.8-11.6) sec ABG pH (7.380-7.420) ABG pCO2 (38-42) mmHg ABG pO2 (61-120) mmHg ABG HCO3 (22-26) mmol/L ABG Base Excess (-2-2) mmol/L Hemoglobin (12.0-16.0) G/DL Carbon Dioxide 19.8 L (21.0-32.0) meq/L Anion Gap 17 H (5-15) meq/L BUN 78 H (7-18) mg/dL Creatinine 2.70 H (0.50-1.00) mg/dL Estimated GFR 21 L (>89) mL/min Random Glucose (74-106) mg/dL Lactic Acid 7.8 H* (0.4-2.0) mmol/L Calcium 7.8 L D (8.5-10.1) mg/dL Total Bilirubin 2.7 H (0.2-1.0) mg/dL AST 65 H (15-37) U/L Troponin I 0.45 H D (0.02-0.05) ng/mL B-Natriuretic Peptide (0-100) pg/mL Total Protein 5.5 L D (6.4-8.2) g/dL Albumin 2.4 L D (3.4-5.0) g/dL 08/16/18 08/16/18 08/16/18 Range/Units 03:45 03:45 03:45 PT 51.8 H (9.8-11.6) sec ABG pH (7.380-7.420) ABG pCO2 (38-42) mmHg ABG pO2 (61-120) mmHg ABG HCO3 (22-26) mmol/L ABG Base Excess (-2-2) mmol/L Hemoglobin (12.0-16.0) G/DL Carbon Dioxide 17.2 L (21.0-32.0) meq/L Anion Gap 20 H (5-15) meq/L BUN 83 H (7-18) mg/dL Creatinine 2.96 H (0.50-1.00) mg/dL Estimated GFR 19 L (>89) mL/min Random Glucose 73 L (74-106) mg/dL Lactic Acid (0.4-2.0) mmol/L Calcium 8.4 L (8.5-10.1) mg/dL Total Bilirubin 2.9 H (0.2-1.0) mg/dL AST 62 H (15-37) U/L Troponin I (0.02-0.05) ng/mL B-Natriuretic Peptide 4070 H (0-100) pg/mL Total Protein 6.1 L D (6.4-8.2) g/dL Albumin 2.9 L (3.4-5.0) g/dL 08/16/18 Range/Units 09:10 PT (9.8-11.6) sec ABG pH (7.380-7.420) ABG pCO2 (38-42) mmHg ABG pO2 (61-120) mmHg ABG HCO3 (22-26) mmol/L ABG Base Excess (-2-2) mmol/L Hemoglobin (12.0-16.0) G/DL Carbon Dioxide (21.0-32.0) meq/L Anion Gap (5-15) meq/L BUN (7-18) mg/dL Creatinine (0.50-1.00) mg/dL Estimated GFR (>89) mL/min Random Glucose (74-106) mg/dL Lactic Acid 5.1 H* (0.4-2.0) mmol/L Calcium (8.5-10.1) mg/dL Total Bilirubin (0.2-1.0) mg/dL AST (15-37) U/L Troponin I (0.02-0.05) ng/mL B-Natriuretic Peptide (0-100) pg/mL Total Protein (6.4-8.2) g/dL Albumin (3.4-5.0) g/dL BMP 08/15/18 08/16/18 18:39 03:45 Sodium 139 139 Potassium 3.8 4.1 Chloride 102 102 Carbon Dioxide 19.8 L 17.2 L BUN 78 H 83 H Creatinine 2.70 H 2.96 H Calcium 7.8 L D 8.4 L Cardiac Enzymes 08/15/18 08/15/18 Range/Units 14:40 19:58 Total Creatine Kinase 91 90 (26-192) U/L Troponin I 0.28 H D 0.45 H D (0.02-0.05) ng/mL Liver Function 08/15/18 08/16/18 Range/Units 18:39 03:45 Total Bilirubin 2.7 H 2.9 H (0.2-1.0) mg/dL AST 65 H 62 H (15-37) U/L ALT 28 30 (10-53) U/L Alkaline Phosphatase 83 80 (45-117) U/L Albumin 2.4 L D 2.9 L (3.4-5.0) g/dL <Mandi PalacioBebe D - 08/16/18 13:40> - Imaging Impressions Chest X-Ray 08/16/18 00:00 CONCLUSION: 1. Improving aeration in the right lung base with resolving airspace disease/ effusion. 2. Left IJ central venous catheter appears to been retracted slightly but still projects over the central venous system. 3. Compensated cardiomegaly. Chest X-Ray 08/16/18 14:58 CONCLUSION: ET tube in good position. Lungs are grossly clear. <Brannon Willard - 08/16/18 21:37> Impressions Chest X-Ray 08/15/18 15:41 CONCLUSION: Pleural effusion and consolidation right lung base persists. New left IJ central line are in excellent position without evidence of pneumothorax. <Mandi PalacioBebe D - 08/16/18 13:40> Physical Exam Vital signs: Vital Signs 08/15/18 22:00 08/15/18 23:00 08/16/18 00:00 Temperature 96.6 F L Pulse Rate 90 90 92 H Respiratory Rate 16 14 17 Blood Pressure 129/73 122/80 116/74 Pulse Oximetry 91 L 100 86 L 08/16/18 01:00 08/16/18 02:00 08/16/18 03:00 Temperature Pulse Rate 91 H 92 H 93 H Respiratory Rate 18 18 21 Blood Pressure 133/85 122/92 H 112/84 Pulse Oximetry 100 100 97 08/16/18 04:00 08/16/18 05:00 08/16/18 06:00 Temperature 97.4 F L Pulse Rate 92 H 89 89 Respiratory Rate 15 24 16 Blood Pressure 115/76 108/80 112/62 Pulse Oximetry 100 100 100 08/16/18 07:00 08/16/18 08:00 08/16/18 09:00 Temperature Pulse Rate 87 86 86 Respiratory Rate 15 19 19 Blood Pressure 122/78 103/75 101/79 Pulse Oximetry 100 100 98 08/16/18 09:33 08/16/18 10:00 08/16/18 11:00 Temperature Pulse Rate 86 87 Respiratory Rate 17 22 Blood Pressure 87/72 L 97/74 L Pulse Oximetry 96 100 99 08/16/18 11:15 08/16/18 11:32 08/16/18 12:00 Temperature 97.5 F L 97.5 F L Pulse Rate 84 87 85 Respiratory Rate 14 17 18 Blood Pressure 97/74 L 97/70 L 102/67 Pulse Oximetry 100 100 99 08/16/18 12:23 08/16/18 12:39 08/16/18 13:00 Temperature 97.6 F 97.6 F Pulse Rate 86 84 84 Respiratory Rate 20 14 13 Blood Pressure 102/67 86/54 L 86/54 L Pulse Oximetry 99 100 08/16/18 13:15 08/16/18 13:31 08/16/18 14:00 Temperature 97.4 F L 97.5 F L Pulse Rate 84 84 80 Respiratory Rate 10 L 12 14 Blood Pressure 86/54 L 95/71 L 95/71 L Pulse Oximetry 100 100 100 08/16/18 15:00 08/16/18 15:02 08/16/18 16:00 Temperature Pulse Rate 122 H 99 H Respiratory Rate 17 19 15 Blood Pressure 174/98 H 98/53 L Pulse Oximetry 100 100 08/16/18 18:00 08/16/18 18:07 08/16/18 18:11 Temperature Pulse Rate 98 H 98 H Respiratory Rate 18 16 Blood Pressure 114/79 Pulse Oximetry 100 100 08/16/18 20:00 08/16/18 20:42 Temperature Pulse Rate Respiratory Rate 18 Blood Pressure Pulse Oximetry 100 100 Intake & Output 08/16/18 08/16/18 08/17/18 06:59 18:59 06:59 Intake Total 850 / 850 1457 / 1457 776 / 776 Output Total 75 / 75 55 / 55 Balance 775 / 775 1402 / 1402 776 / 776 Weight 85.5 kg Intake: IV 700 / 700 900 / 900 776 / 776 Bumex Inj 25 mg In 100 ml @ 0.5 26 / 26 MG/HR 2 mls/hr IV.CONT .Q24H ANAHI Rx#:[id number] Flexbumin 25% Inj 100 ML @ 60 200 / 200 100 / 100 100 / 100 mls/hr IV.SIG Q6HR ANAHI Rx#: [id number] Azithromycin Inj 500 MG In NS 250 / 250 Inj 250 ML @ 250 mls/hr IV.SIG Q24H ANAHI Rx#:[id number] Maxipime Inj 2,000 MG In NS Inj 100 / 100 100 / 100 100 ML @ 200 mls/hr IV.SIG Q8H ANAHI Rx#:[id number] Zyvox 600 mg Premix 300 ML @ 300 / 300 300 / 300 300 mls/hr IV.SIG Q12H ANAHI Rx#: [id number] Levophed-Dextrose 4 mg/250 ml 250 / 250 250 / 250 Drip 4 mg In 250 ml @ 2 MCG/MIN 7.5 mls/hr IV.SIG TITRATE PRN Rx#:[id number] NS Inj 250 ML @ 15 mls/hr IV. 100 / 100 SIG ONCE ANAHI Rx#:[id number] Flagyl 500 MG Inj 100 ML @ 100 100 / 100 100 / 100 100 / 100 mls/hr IV.SIG Q8H ANAHI Rx#: [id number] Oral 150 / 150 Intake (Blood Product) Amt 557 / 557 Liquid Pooled Plasma Cp2d Unit 218 / 218 [id number] Liquid Pooled Plasma Cp2d Unit 0 / 0 [id number] Plasma Thawed 5 Day Cp2d Unit 339 / 339 [id number] Output: Urine 75 / 75 Urine Amount (Catheter) Indwelling Urethral Catheter Other: Date of Last Bowel Movement 08/16/18 # Bowel Movements 0 1 <Brannon Willard - 08/16/18 21:37> Vital Signs 08/15/18 14:18 08/15/18 14:38 08/15/18 15:10 Temperature Pulse Rate 95 H 91 H 86 Respiratory Rate 24 19 25 H Blood Pressure 90/76 L 129/69 Pulse Oximetry 100 100 100 08/15/18 16:00 08/15/18 17:00 08/15/18 18:00 Temperature 96.3 F L Pulse Rate 92 H 92 H 89 Respiratory Rate 16 18 16 Blood Pressure 108/77 111/67 130/62 Pulse Oximetry 100 100 100 08/15/18 19:00 08/15/18 20:00 08/15/18 21:00 Temperature 96.9 F L Pulse Rate 89 90 92 H Respiratory Rate 14 13 25 H Blood Pressure 109/87 121/78 113/86 Pulse Oximetry 99 100 100 08/15/18 22:00 08/15/18 23:00 08/16/18 00:00 Temperature 96.6 F L Pulse Rate 90 90 92 H Respiratory Rate 16 14 17 Blood Pressure 129/73 122/80 116/74 Pulse Oximetry 91 L 100 86 L 08/16/18 01:00 08/16/18 02:00 08/16/18 03:00 Temperature Pulse Rate 91 H 92 H 93 H Respiratory Rate 18 18 21 Blood Pressure 133/85 122/92 H 112/84 Pulse Oximetry 100 100 97 08/16/18 04:00 08/16/18 05:00 08/16/18 06:00 Temperature 97.4 F L Pulse Rate 92 H 89 89 Respiratory Rate 15 24 16 Blood Pressure 115/76 108/80 112/62 Pulse Oximetry 100 100 100 08/16/18 07:00 08/16/18 08:00 08/16/18 09:00 Temperature Pulse Rate 87 86 86 Respiratory Rate 15 19 19 Blood Pressure 122/78 103/75 101/79 Pulse Oximetry 100 100 98 08/16/18 09:33 08/16/18 10:00 08/16/18 11:00 Temperature Pulse Rate 86 87 Respiratory Rate 17 22 Blood Pressure 87/72 L 97/74 L Pulse Oximetry 96 100 99 08/16/18 11:15 08/16/18 11:32 08/16/18 12:23 Temperature 97.5 F L 97.5 F L 97.6 F Pulse Rate 84 87 86 Respiratory Rate 14 17 20 Blood Pressure 97/74 L 97/70 L 102/67 Pulse Oximetry 100 100 99 08/16/18 12:39 08/16/18 13:15 Temperature 97.6 F 97.4 F L Pulse Rate 84 84 Respiratory Rate 14 10 L Blood Pressure 86/54 L 86/54 L Pulse Oximetry 100 Intake & Output 08/15/18 08/16/18 08/16/18 18:59 06:59 18:59 Intake Total 1750.5 / 1750.5 850 / 850 757 / 757 Output Total 10 75 / 75 Balance 1740.5 / 1740.5 775 / 775 757 / 757 Weight 71.214 kg 85.5 kg Intake: IV 1400.5 / 1400.5 700 / 700 200 / 200 Flexbumin 25% Inj 100 ML @ 60 200 / 200 mls/hr IV.SIG Q6HR ANAHI Rx#: [id number] Azithromycin Inj 500 MG In NS 250 / 250 Inj 250 ML @ 250 mls/hr IV.SIG ONCE ONE Rx#:[id number] Maxipime Inj 2,000 MG In NS Inj 100 / 100 100 / 100 100 / 100 100 ML @ 200 mls/hr IV.SIG Q8H ANAHI Rx#:[id number] Zyvox 600 mg Premix 300 ML @ 300 / 300 300 / 300 300 mls/hr IV.SIG Q12H ANAHI Rx#: [id number] Vitamin K Inj 5 MG In NS Inj 50 50.5 / 50.5 ML @ 606 mls/hr IV.SIG ONCE ONE Rx#:[id number] NS Inj 1,000 ML @ 1000 mls/hr 500 / 500 IV.SIG BOLUS ANAHI Rx#:[id number] NS Inj 500 ML @ Wide Open IV. 0 / 0 SIG BOLUS ONE Rx#:[id number] Rocephin Inj 2,000 MG In NS Inj 100 / 100 100 ML @ 200 mls/hr IV.SIG ONCE ONE Rx#:[id number] Flagyl 500 MG Inj 100 ML @ 100 100 / 100 100 / 100 100 / 100 mls/hr IV.SIG Q8H ANAHI Rx#: [id number] Oral 350 / 350 150 / 150 Intake (Blood Product) Amt 557 / 557 Liquid Pooled Plasma Cp2d Unit 218 / 218 [id number] Liquid Pooled Plasma Cp2d Unit 0 / 0 [id number] Plasma Thawed 5 Day Cp2d Unit 339 / 339 [id number] Output: Urine 75 / 75 Urine Amount (Catheter) Indwelling Urethral Catheter Other: # Bowel Movements 0 <Bebe Camargo D - 08/16/18 13:40> Narrative: GENERAL: Patient resting comfortably in bed, NAD SKIN: Warm and dry. No rash. EYES: No scleral icterus. No injection or drainage. PERRLA. EOMI. HENT: Normocephalic. Atraumatic. MMM. CARDIOVASCULAR: Regular rate and rhythm without obvious murmurs, gallops, or rubs. RESPIRATORY: Breath sounds diminished in right lower lung base. Breathing comfortably but without obvious use of accessory muscles. GASTROINTESTINAL: Abdomen soft, non-tender, nondistended. BS WNL. MUSCULOSKELETAL: 1+ pitting edema in both lower extremities, improved from admission. Strength 4/5 in left upper and lower extremity. NEURO/PSYCH: Afocal. Awake, alert, and oriented x3. <Bebe Camargo 08/16/18 15:36> - Urinary Catheter Management Indwelling Urethral Catheter Cath placed during this visit: no <Brannon Willard 08/16/18 21:37> no <Bebe Camargo 08/16/18 15:36> Reason for continuing: Hourly intake/output <Bebe Camargo 08/16/18 13: 40> Assessment and Plan - Assessment (1) Severe sepsis Code(s): A41.9 - Sepsis, unspecified organism; R65.20 - Severe sepsis without septic shock Status: Acute (2) Pneumonia Code(s): J18.9 - Pneumonia, unspecified organism Status: Acute (3) Elevated troponin Code(s): R74.8 - Abnormal levels of other serum enzymes Status: Acute (4) Acute exacerbation of CHF (congestive heart failure) Code(s): I50.9 - Heart failure, unspecified Status: Acute (5) Supratherapeutic INR Code(s): R79.1 - Abnormal coagulation profile Status: Acute (6) Acute on chronic kidney failure Code(s): N17.9 - Acute kidney failure, unspecified; N18.9 - Chronic kidney disease, unspecified Status: Acute (7) Hypertension Code(s): I10 - Essential (primary) hypertension Status: Chronic (8) Nutrition, metabolism, and development symptoms Code(s): R63.8 - Other symptoms and signs concerning food and fluid intake Status: Acute <Brannon Willard 08/16/18 21:37> (1) Severe sepsis Code(s): A41.9 - Sepsis, unspecified organism; R65.20 - Severe sepsis without septic shock Status: Acute Plan: Community-acquired pneumonia complicated by lower extremity edema in the setting of CHF with an EF of 20%. Patient met severe sepsis criteria on admission: - Heart rate 105 - Respiratory rate of 26 - Blood pressure of 95/51 - With suspected community-acquired pneumonia, right lower lobe infiltrate on imaging. - Lactic acid of 8.1 - WBC 5.5 In the ED: -Received 25 mg IVP Cardizem for SVT -Patient received 20 mg of IV Lasix -Bradley placed -Decompensated with systolic pressures in the 70s and mean arterial pressure of 43 -Received a total of 1.5 L in the ED -Placed on 3 L nasal cannula and satting 100% -Received 0.1 mg of phenylephrine - s/p Azithromycin 500 mg and Ceftriaxone 2 g -Patient unresponsive to fluid bolus, adult caregiver consulted. Plan: - management per adult caregiver pt off levophed low urine output, bumex for diuresis abx: Azithromycin 50 mg IV daily ( 08/15--), Zyvox 600 mg twice daily (08/15-) , Flagyl 500 mg every 8h (08/15--), cefepime 2000 mg every 8 hours (08/15--) Nose develops more over except for that except for a tablet okay a little she does azithromycin is still on Y Dr. Kim masses that I stop all antibiotics have been metronidazole CXR this am: improving aeration in Right lung base, persistent Right sided effusion. Thoracentesis done (08/16) with removal of 950ml. Improving aeration and right right lung base nephrology consulted -if no response to diuresis pt may need to be treated with HD -albumin and bicarb -UA: small leuk esterase, urine wbc 7, ucx not indicated - Lactic acid downtrending -Follow-up: blood cultures sputum culture respiratory panel pleural fluid studies (2) Pneumonia Code(s): J18.9 - Pneumonia, unspecified organism Status: Acute Plan: Community acquired right-sided pneumonia with lactic acidosis -DuoNeb every 2 hours as needed -Follow-up with sputum culture -Follow-up with respiratory panel -Follow-up with Legionella urine antigen -Continue with antibiotics per critical care team -Supplemental oxygen as needed to keep oxygen saturation above 92% (3) Elevated troponin Code(s): R74.8 - Abnormal levels of other serum enzymes Status: Acute Plan: Initial troponins of admission 0.10 with no chest pain or ST elevation or depression on EKG. ACS versus elevated troponins in the setting of chronic kidney disease. Patient in SVT on admission now resolved. -EKG: Initial EKG showed supraventricular tachycardia -Chest x-ray consolidation right midlung and cardiomegaly -Initial troponins 0.10--> 0.45 Continue to monitor symptoms, patient is not symptomatic at this time Plan to recheck troponins after patient is stabilized (4) Acute exacerbation of CHF (congestive heart failure) Code(s): I50.9 - Heart failure, unspecified Status: Acute Plan: -BNP 4000 -Patient being diuresed with Bumex IV -Lower extremity edema has improved (5) Supratherapeutic INR Code(s): R79.1 - Abnormal coagulation profile Status: Acute Plan: Patient on warfarin 6 days a week at home. INR on admission was 5.2. -Hold warfarin -Status post FFP for procedures -Trend INR (6) Acute on chronic kidney failure Code(s): N17.9 - Acute kidney failure, unspecified; N18.9 - Chronic kidney disease, unspecified Status: Acute Plan: This patient stage III CKD with elevated creatinine above baseline on admission. Possibly due to decrease intravascular volume in the setting of sepsis. -Creatinine on admission 2.72 from baseline of 1.5. -Trend creatinine -Pt with low urine out -trend I/O -nephrology following, appreciate rec (7) Hypertension Code(s): I10 - Essential (primary) hypertension Status: Chronic Plan: Patient BP improving hold home BP meds no longer requiring pressor support (8) Nutrition, metabolism, and development symptoms Code(s): R63.8 - Other symptoms and signs concerning food and fluid intake Status: Acute Plan: Fluids: Per adult caregiver Electrolytes: Replete as needed Nutrition: Renal diet DVT prophylaxis: Not indicated due to supratherapeutic INR <Bebe Camargo D - 08/16/18 14:52> - Attending Attestation Patient case discussed with resident physicians I have independently examined the patient I have read the above note and agree with the assessment and plan as discussed with me I was involved in all medical decision making for this patient Patient was doing well this morning, stated that she was feeling much better, was sitting up in bed and speaking to medical team. She was not producing much urine and Bumex diuresis was initiated by critical care. Plan for bedside ultrasound-guided thoracentesis of pleural effusion by critical care this morning. Patient eventually sustained pulseless electrical activity arrest requiring ACLS intervention. Critical care coded patient for 9 minutes and eventually achieved ROSC. Patient was intubated and mechanically ventilated as well as placed back on pressor support. She will be continued to be monitored in the intensive care unit with closely guarded prognosis. Brannon Willard MD <Brannon Willard - 08/16/18 21:37> <Bebe Camargo - Last Filed: 08/16/18 14:52> (4) Acute exacerbation of CHF (congestive heart failure) Qualifiers: Heart failure type: systolic Qualified Code(s): I50.23 - Acute on chronic systolic (congestive) heart failure (6) Acute on chronic kidney failure Qualifiers: Acute renal failure type: unspecified Chronic kidney disease stage: stage 4 ( severe) Qualified Code(s): N17.9 - Acute kidney failure, unspecified; N18.4 - Chronic kidney disease, stage 4 (severe) <Brannon Willard - Last Filed: 08/16/18 21:37> (4) Acute exacerbation of CHF (congestive heart failure) Qualifiers: Heart failure type: systolic Qualified Code(s): I50.23 - Acute on chronic systolic (congestive) heart failure (6) Acute on chronic kidney failure Qualifiers: Acute renal failure type: unspecified Chronic kidney disease stage: stage 4 ( severe) Qualified Code(s): N17.9 - Acute kidney failure, unspecified; N18.4 - Chronic kidney disease, stage 4 (severe) <Bebe Camargo - Last Filed: 08/16/18 14:52> (4) Acute exacerbation of CHF (congestive heart failure) Qualifiers: Heart failure type: systolic Qualified Code(s): I50.23 - Acute on chronic systolic (congestive) heart failure (6) Acute on chronic kidney failure Qualifiers: Acute renal failure type: unspecified Chronic kidney disease stage: stage 4 ( severe) Qualified Code(s): N17.9 - Acute kidney failure, unspecified; N18.4 - Chronic kidney disease, stage 4 (severe) <Brannon Willard - Last Filed: 08/16/18 21:37> (4) Acute exacerbation of CHF (congestive heart failure) Qualifiers: Heart failure type: systolic Qualified Code(s): I50.23 - Acute on chronic systolic (congestive) heart failure (6) Acute on chronic kidney failure Qualifiers: Acute renal failure type: unspecified Chronic kidney disease stage: stage 4 ( severe) Qualified Code(s): N17.9 - Acute kidney failure, unspecified; N18.4 - Chronic kidney disease, stage 4 (severe)
--- NOTE | 2018-08-16 13:59 | XR ---
EXAM DATE: 08/16/2018 1:40 PM EST AGE/SEX: 67 years / Female INDICATIONS: Post thoracentesis CLINICAL DATA: This is the patient's subsequent encounter. Patient reports that signs and symptoms h ave been present for 3 days and indicates a pain score of 3/10. MEDICAL/SURGICAL HISTORY: . Myocardial infarction. . Pacemaker. COMPARISON: [facility], CHEST 1V SINGLE AP, 08/15/2018. . FINDINGS: A single AP view of the chest demonstrates improving aeration in the right lung base although anatomi c detail is limited by the overlying pacer control unit. Left lung is grossly clear except for some m inimal atelectasis above the hemidiaphragm. Heart size is prominent but well compensated. Left IJ thor tral venous catheter appears to be slightly retracted in the central venous system but still projects over the upper SVC. CONCLUSION: 1. Improving aeration in the right lung base with resolving airspace disease/effusion. 2. Left IJ central venous catheter appears to been retracted slightly but still projects over the ce ntral venous system. 3. Compensated cardiomegaly. Electronically signed by: Israel Mcgarry MD Board Certified Radiologist 08/16/2018 1:57 PM EST
[2018-08-16 14:41] LABS: Total Protein,Pleural Fluid 2.1 gm/dL
[2018-08-16 15:10] LABS: Lymphocytes,Pleural Fluid 32 %; Mesothelial,Pleural Fluid 9 %; Monocytes,Pleural Fluid 6 %; Neutrophils,Pleural Fluid 47 %
[2018-08-16 15:11] LABS: RBC,Pleural Fluid 1633 /mm3 (0-0)
--- NOTE | 2018-08-16 15:13 | P.PCN ---
Date of procedure: 08/16/18 Pre-op diagnosis: Cardiac arrest, PEA Post-op diagnosis: same Procedure: CPR Code blue was called due to PEA arrest. ACLS protocol was initiated. Total four rounds of epinephrine, 3 amps of bicarb, 1 amp of D50 and 1 GM of calcium. CPR time was 9 min. Patient was also intubated during CPR. After ROSC, Patient titrated up on Levophed to 40 mcg/min and Epinephrine was started at 3 mc/min. See Code sheet for full details Anesthesia: none Surgeon: Irene Nino Estimated blood loss (mL): 0 Pathology: other (sputum culture) Condition: critical Disposition: ICU
[2018-08-16] MEDS ORDERED: Propofol Inj 500 MG/50 ML Vial ONE ×2 (15:14→18:16)
--- NOTE | 2018-08-16 15:21 | P.PCN ---
Date of procedure: 08/16/18 Pre-op diagnosis: Acute respiratory failure, Cardiac arrest Post-op diagnosis: same Procedure: Endotracheal intubation PROCEDURE SUMMARY: Intubation dueirn code blue. I wore a surgical cap, mask. The patient was placed on a cardiac/vascular sonographer including continuous pulse oximetry. Rapid Sequence Intubation was conducted. The patient received no medication. Cricoid pressure was maintained from time induction agent was given to time of cuff balloon inflation. Using a direct laryngoscope # 3 blade and a size 8.0 endotracheal tube with stylet, the patient was intubated on the first attempt. The stylet was removed and cuff balloon was inflated. Appropriate endotracheal tube position was confirmed by direct visualization of vocal cord passage, fogging of the tube, CO2 colometric indicator and symmetric breath sounds. The tube was secured at 23 cm at the lips. Post intubation chest x-ray is pending at this time. Anesthesia: none Surgeon: Irene Nino Estimated blood loss (mL): 0 Condition: critical Disposition: ICU
[2018-08-16 15:25] LABS: ABG Base Excess -11.8 mmol/L (-2-2); ABG PCO2 28 mmHg (38-42); ABG PO2 499 mmHG (61-120)
--- NOTE | 2018-08-16 15:34 | P.PCN ---
Date of procedure: 08/16/18 Pre-op diagnosis: Septic shock Post-op diagnosis: same Procedure: Arterial line placement I wore a surgical cap, mask with protective eyewear, full gown and sterile gloves throughout the procedure. Right femoral region was prepped using chlorhexidine scrub and draped in sterile fashion. Using landmarks and palpation femoral artery was accessed and first attempt and arterial blood was withdrawn. The syringe was removed and a guidewire was advanced into the introducer needle. Following this arterial catheter 16 cm 20-gauge was exchanged for guidewire using Seldinger technique. The wire was removed and the catheter was sutured in place at 16 cm. A sterile central line dressing was placed over the catheter at the insertion site. Good arterial waveform was obtained Anesthesia: none Surgeon: Irene Nino Estimated blood loss (mL): 2 Pathology: none sent Condition: critical Disposition: ICU
[2018-08-16 15:42] LABS: Baso % (Auto) 0.4 % (0.0-2.0); Eos % (Auto) 0.4 % (0.0-4.0); Hematocrit 30.5 % (35.0-46.0); Hemoglobin 9.8 gm/dL (11.6-15.3); Lymph # (Auto) 2.5 th/mm3 (1.0-4.8); Lymph % (Auto) 24.7 % (9.0-44.0); Mean Corpuscular Hemoglobin 24.7 pg (27.0-34.0); Mean Corpuscular Volume 77.3 fL (80.0-100.0); Mean Platelet Volume 10.5 fL (7.0-11.0); Mono # (Auto) 1.2 th/mm3 (0.0-0.9); Mono % (Auto) 12.3 % (0.0-8.0); Neut # (Auto) 6.2 th/mm3 (1.8-7.7); Neut % (Auto) 62.2 % (16.0-70.0); Platelet Count 212 th/mm3 (150-450); Red Blood Count 3.95 mil/mm3 (4.00-5.30); Red Cell Distribution Width 18.2 % (11.6-17.2); White Blood Count 9.9 th/mm3 (4.0-11.0)
[2018-08-16 15:48] LABS: Calcium 13.6 mg/dL (8.5-10.1); Magnesium 2.5 mg/dL (1.5-2.5); Potassium 4.7 meq/L (3.5-5.1)
--- NOTE | 2018-08-16 15:51 | XR ---
EXAM DATE: 08/16/2018 3:43 PM EST AGE/SEX: 67 years / Female INDICATIONS: Post intubation and central line placement. CLINICAL DATA: This is the patient's subsequent encounter. Patient reports that signs and symptoms h ave been present for 1 day and indicates a pain score of Nonresponsive. MEDICAL/SURGICAL HISTORY: . Myocardial infarction. Pacemaker. COMPARISON: [facility], CHEST 1V SINGLE AP, 08/16/2018. . FINDINGS: Single view of the chest demonstrates the endotracheal tube, left IJ central line, pacemaker are in g ood position. Minimal scarring left mid lung zone. The rest of the lungs are clear. CONCLUSION: ET tube in good position. Lungs are grossly clear. Electronically signed by: Tayo Singh MD Board Certified Radiologist 08/16/2018 3:49 PM EST
[2018-08-16 15:58] LABS: Albumin 2.8 g/dL (3.4-5.0)
[2018-08-16 16:01] LABS: Calcium-Albumin Corrected 14.6 mg/dL (8.5-10.1)
--- NOTE | 2018-08-16 16:15 | P.PNNP ---
Subjective Interval history: Patient has a PEA arrest recorded for 10 minutes and now on ventilator Physical Exam Vital signs: Vital Signs 08/15/18 16:00 08/15/18 17:00 08/15/18 18:00 Temperature 96.3 F L Pulse Rate 92 H 92 H 89 Respiratory Rate 16 18 16 Blood Pressure 108/77 111/67 130/62 Pulse Oximetry 100 100 100 08/15/18 19:00 08/15/18 20:00 08/15/18 21:00 Temperature 96.9 F L Pulse Rate 89 90 92 H Respiratory Rate 14 13 25 H Blood Pressure 109/87 121/78 113/86 Pulse Oximetry 99 100 100 08/15/18 22:00 08/15/18 23:00 08/16/18 00:00 Temperature 96.6 F L Pulse Rate 90 90 92 H Respiratory Rate 16 14 17 Blood Pressure 129/73 122/80 116/74 Pulse Oximetry 91 L 100 86 L 08/16/18 01:00 08/16/18 02:00 08/16/18 03:00 Temperature Pulse Rate 91 H 92 H 93 H Respiratory Rate 18 18 21 Blood Pressure 133/85 122/92 H 112/84 Pulse Oximetry 100 100 97 08/16/18 04:00 08/16/18 05:00 08/16/18 06:00 Temperature 97.4 F L Pulse Rate 92 H 89 89 Respiratory Rate 15 24 16 Blood Pressure 115/76 108/80 112/62 Pulse Oximetry 100 100 100 08/16/18 07:00 08/16/18 08:00 08/16/18 09:00 Temperature Pulse Rate 87 86 86 Respiratory Rate 15 19 19 Blood Pressure 122/78 103/75 101/79 Pulse Oximetry 100 100 98 08/16/18 09:33 08/16/18 10:00 08/16/18 11:00 Temperature Pulse Rate 86 87 Respiratory Rate 17 22 Blood Pressure 87/72 L 97/74 L Pulse Oximetry 96 100 99 08/16/18 11:15 08/16/18 11:32 08/16/18 12:00 Temperature 97.5 F L 97.5 F L Pulse Rate 84 87 85 Respiratory Rate 14 17 18 Blood Pressure 97/74 L 97/70 L 102/67 Pulse Oximetry 100 100 99 08/16/18 12:23 08/16/18 12:39 08/16/18 13:00 Temperature 97.6 F 97.6 F Pulse Rate 86 84 84 Respiratory Rate 20 14 13 Blood Pressure 102/67 86/54 L 86/54 L Pulse Oximetry 99 100 08/16/18 13:15 08/16/18 13:31 08/16/18 14:00 Temperature 97.4 F L 97.5 F L Pulse Rate 84 84 80 Respiratory Rate 10 L 12 14 Blood Pressure 86/54 L 95/71 L 95/71 L Pulse Oximetry 100 100 100 08/16/18 15:02 Temperature Pulse Rate Respiratory Rate 19 Blood Pressure Pulse Oximetry Intake & Output 08/15/18 08/16/18 08/16/18 18:59 06:59 18:59 Intake Total 1750.5 / 1750.5 850 / 850 1107 / 1107 Output Total 75 / 75 Balance 1740.5 / 1740.5 775 / 775 1107 / 1107 Weight 71.214 kg 85.5 kg Intake: IV 1400.5 / 1400.5 700 / 700 550 / 550 Flexbumin 25% Inj 100 ML @ 60 200 / 200 100 / 100 mls/hr IV.SIG Q6HR ANAHI Rx#: [id number] Azithromycin Inj 500 MG In NS 250 / 250 250 / 250 Inj 250 ML @ 250 mls/hr IV.SIG Q24H ANAHI Rx#:[id number] Maxipime Inj 2,000 MG In NS Inj 100 / 100 100 / 100 100 / 100 100 ML @ 200 mls/hr IV.SIG Q8H ANAHI Rx#:[id number] Zyvox 600 mg Premix 300 ML @ 300 / 300 300 / 300 300 mls/hr IV.SIG Q12H ANAHI Rx#: [id number] Vitamin K Inj 5 MG In NS Inj 50 50.5 / 50.5 ML @ 606 mls/hr IV.SIG ONCE ONE Rx#:[id number] NS Inj 1,000 ML @ 1000 mls/hr 500 / 500 IV.SIG BOLUS ANAHI Rx#:[id number] NS Inj 500 ML @ Wide Open IV. 0 / 0 SIG BOLUS ONE Rx#:[id number] Rocephin Inj 2,000 MG In NS Inj 100 / 100 100 ML @ 200 mls/hr IV.SIG ONCE ONE Rx#:[id number] Flagyl 500 MG Inj 100 ML @ 100 100 / 100 100 / 100 100 / 100 mls/hr IV.SIG Q8H ANAHI Rx#: [id number] Oral 350 / 350 150 / 150 Intake (Blood Product) Amt 557 / 557 Liquid Pooled Plasma Cp2d Unit 218 / 218 [id number] Liquid Pooled Plasma Cp2d Unit 0 / 0 [id number] Plasma Thawed 5 Day Cp2d Unit 339 / 339 [id number] Output: Urine 75 / 75 Urine Amount (Catheter) Indwelling Urethral Catheter Other: # Bowel Movements 0 Narrative: GENERAL: Intubated SKIN: Cold and dry. HEAD: Normocephalic. EYES: No scleral icterus. No injection or drainage. NECK: Intubated CARDIOVASCULAR: RESPIRATORY: Breath sounds diminished at bases GASTROINTESTINAL: Abdomen soft, non-tender, nondistended. EXTREMITIES: Decreased pulses NEUROLOGICAL: Obtunded on ventilator - Urinary Catheter Management Indwelling Urethral Catheter Cath placed during this visit: no Reason for continuing: Hourly intake/output Assessment and Plan - Assessment (1) Acute kidney injury superimposed on CKD Code(s): N17.9 - Acute kidney failure, unspecified; N18.9 - Chronic kidney disease, unspecified Status: Acute Plan: Patient coded has PEA arrest patient is intubated Renal function was worsening Patient is in multiorgan failure May not survive unsuitable for dialysis given recent arrest Her potassium is okay, she is acidotic EF is 20% with advanced cardiomyopathy which led to cardiac arrest Dialysis is not going to change her outcome Discussed with Dr. Nino
[2018-08-16 16:27] LABS: INR 2.2 Ratio; Prothrombin Time 22.6 sec (9.8-11.6)
[2018-08-16] MEDS: Bumetanide Inj 25 MG/100 ML BAG IV.CONT SCH ×2 (16:27→19:56)
[2018-08-16] MEDS ORDERED: Sodium Bicarbonate 8.4% Inj 150 MEQ in Dextrose 5% in Water Inj 850 ML IV.CONT ONE ×2 (17:00)
[2018-08-16] MEDS: Sodium Bicarbonate 8.4% Inj 150 MEQ in Dextrose 5% in Water Inj 850 ML IV.CONT SCH ×2 (18:20)
[2018-08-16] MEDS ORDERED: Midazolam 100 MG/100 ML Inj 100 MG/100 ML BAG IV.CONT PRN (19:22)
[2018-08-16] MEDS: Propofol 1000 mg/100 ml Inj 1,000 MG/100 ML BOTTLE IV.CONT PRN (21:00)
[2018-08-17] MEDS: Albumin Human 25% Inj 100 ML IV.SIG SCH ×4 (00:47→18:16)
[2018-08-17] MEDS: Chlorhexidine Gluconate 2% 1 Pack (2 Cloths) TOPICAL SCH (03:46)
[2018-08-17 04:05] LABS: Hematocrit 28.7 % (35.0-46.0); Hemoglobin 9.1 gm/dL (11.6-15.3); Mean Corpuscular HGB Conc 31.8 % (32.0-36.0); Mean Corpuscular Hemoglobin 24.4 pg (27.0-34.0); Mean Corpuscular Volume 76.7 fL (80.0-100.0); Mean Platelet Volume 10.3 fL (7.0-11.0); Platelet Count 210 th/mm3 (150-450); Red Blood Count 3.74 mil/mm3 (4.00-5.30); White Blood Count 8.4 th/mm3 (4.0-11.0)
[2018-08-17 04:35] LABS: Alanine Aminotransferase 25 U/L (10-53); Albumin 3.4 g/dL (3.4-5.0); Alkaline Phosphatase 63 U/L (45-117); Anion Gap 18 meq/L (5-15); Aspartate Aminotransferase 41 U/L (15-37); Blood Urea Nitrogen 89 mg/dL (7-18); Calcium 8.1 mg/dL (8.5-10.1); Carbon Dioxide 22.4 meq/L (21.0-32.0); Chloride 99 meq/L (98-107); Glomerular Filtration Rate 16 mL/min (>89); Glucose,Random 139 mg/dL (74-106); Potassium 3.7 meq/L (3.5-5.1); Sodium 139 meq/L (136-145); Total Protein 5.9 g/dL (6.4-8.2)
[2018-08-17] MEDS: Propofol 1000 mg/100 ml Inj 1,000 MG/100 ML BOTTLE IV.CONT PRN (05:38)
--- NOTE | 2018-08-17 06:33 | XR ---
EXAM DATE: 08/17/2018 6:26 AM EST AGE/SEX: 67 years / Female INDICATIONS: Shortness of breath. CLINICAL DATA: This is the patient's subsequent encounter. Patient reports that signs and symptoms h ave been present for 2 days and indicates a pain score of Nonresponsive. MEDICAL/SURGICAL HISTORY: . Myocardial infarction. Pacemaker. COMPARISON: [facility], CHEST 1V SINGLE AP, 08/16/2018. . FINDINGS: A single AP view of the chest demonstrates cardiomegaly and left basilar density. Endotracheal tube a nd left jugular central line stable position. Right-sided pacemaker unchanged. The cardiomediastinal contours are unremarkable. Osseous structures are intact. CONCLUSION: Left basilar density. Electronically signed by: Jamil Kilgore MD Board Certified Radiologist 08/17/2018 6:32 AM EST
[2018-08-17] MEDS: Sodium Bicarbonate 8.4% Inj 150 MEQ in Dextrose 5% in Water Inj 850 ML IV.CONT SCH ×2 (08:52)
[2018-08-17] MEDS: Senna/Docusate Sodium 8.6/50 MG Tablet PO SCH ×2 (08:53→21:57)
[2018-08-17] MEDS: Sodium Bicarbonate 650 MG Tablet PO SCH ×3 (08:53→17:13)
[2018-08-17] MEDS ORDERED: Calcium Chloride Inj 1 GM/10 ML Syringe IV.PUSH ONE (08:55)
[2018-08-17] MEDS ORDERED: Sodium Bicarbonate 8.4% Inj 50 MEQ/50 ML Syringe IV.PUSH ONE (08:55)
--- NOTE | 2018-08-17 09:26 | P.PNFP ---
Subjective Interval history: Patient seen at bedside this morning in the presence of her and daughter. Patient currently on mechanical ventilation and unable to communicate. Family reports they are well-informed and understand what is going on. The only comment from family was to please get her better. Family had no further questions and thanked us for our care. <Darling Dru Miguel Holli - 08/17/18 10:21> Results - Labs Result diagrams: 08/17/18 03:20 08/17/18 15:09 <SudheerBrannon scott - 08/17/18 17:32> Abnormal lab results 08/16/18 08/17/18 08/17/18 Range/Units 20:15 03:20 03:20 RBC 3.74 L (4.00-5.30) mil/mm3 Hgb 9.1 L (11.6-15.3) gm/dL Hct 28.7 L (35.0-46.0) % MCV 76.7 L (80.0-100.0) fL MCH 24.4 L (27.0-34.0) pg MCHC 31.8 L (32.0-36.0) % RDW 18.0 H (11.6-17.2) % Potassium (3.5-5.1) meq/L Anion Gap 18 H (5-15) meq/L BUN 89 H (7-18) mg/dL Creatinine 3.38 H (0.50-1.00) mg/dL Estimated GFR 16 L (>89) mL/min Random Glucose 139 H (74-106) mg/dL Lactic Acid 10.5 H* (0.4-2.0) mmol/L Calcium 8.1 L D (8.5-10.1) mg/dL Total Bilirubin 2.5 H (0.2-1.0) mg/dL AST 41 H (15-37) U/L Troponin I (0.02-0.05) ng/mL Total Protein 5.9 L (6.4-8.2) g/dL Albumin (3.4-5.0) g/dL 08/17/18 08/17/18 08/17/18 Range/Units 10:55 15:09 15:09 RBC (4.00-5.30) mil/mm3 Hgb (11.6-15.3) gm/dL Hct (35.0-46.0) % MCV (80.0-100.0) fL MCH (27.0-34.0) pg MCHC (32.0-36.0) % RDW (11.6-17.2) % Potassium 3.2 L (3.5-5.1) meq/L Anion Gap (5-15) meq/L BUN 87 H (7-18) mg/dL Creatinine 3.25 H (0.50-1.00) mg/dL Estimated GFR 17 L (>89) mL/min Random Glucose 110 H (74-106) mg/dL Lactic Acid 2.1 H (0.4-2.0) mmol/L Calcium 8.1 L (8.5-10.1) mg/dL Total Bilirubin 2.5 H (0.2-1.0) mg/dL AST 40 H (15-37) U/L Troponin I 0.47 H (0.02-0.05) ng/mL Total Protein 5.7 L (6.4-8.2) g/dL Albumin 3.2 L (3.4-5.0) g/dL Short CBC 08/17/18 Range/Units 03:20 WBC 8.4 (4.0-11.0) th/mm3 Hgb 9.1 L (11.6-15.3) gm/dL Hct 28.7 L (35.0-46.0) % Plt Count 210 (150-450) th/mm3 BMP 08/17/18 08/17/18 03:20 15:09 Sodium 139 141 Potassium 3.7 D 3.2 L Chloride 99 100 Carbon Dioxide 22.4 30.1 BUN 89 H 87 H Creatinine 3.38 H 3.25 H Calcium 8.1 L D 8.1 L Cardiac Enzymes 08/17/18 Range/Units 10:55 Troponin I 0.47 H (0.02-0.05) ng/mL Liver Function 08/17/18 08/17/18 Range/Units 03:20 15:09 Total Bilirubin 2.5 H 2.5 H (0.2-1.0) mg/dL AST 41 H 40 H (15-37) U/L ALT 25 26 (10-53) U/L Alkaline Phosphatase 63 56 (45-117) U/L Albumin 3.4 D 3.2 L (3.4-5.0) g/dL <Brannon Willard - 08/17/18 17:32> Abnormal lab results 08/16/18 08/16/18 08/16/18 Range/Units 09:10 13:20 14:45 RBC (4.00-5.30) mil/mm3 Hgb (11.6-15.3) gm/dL Hct (35.0-46.0) % MCV (80.0-100.0) fL MCH (27.0-34.0) pg MCHC (32.0-36.0) % RDW (11.6-17.2) % [place] % (Auto) (0.0-8.0) % [place] # (Auto) (0.0-0.9) th/mm3 PT (9.8-11.6) sec ABG pH (7.380-7.420) ABG pCO2 (38-42) mmHg ABG pO2 (61-120) mmHG ABG HCO3 (22-26) mmol/L ABG Base Excess (-2-2) mmol/L Hemoglobin (12.0-16.0) G/DL Anion Gap (5-15) meq/L BUN (7-18) mg/dL Creatinine (0.50-1.00) mg/dL Estimated GFR (>89) mL/min POC Glucose 123 H (68-110) mg/dl Random Glucose (74-106) mg/dL Lactic Acid 5.1 H* (0.4-2.0) mmol/L Calcium (8.5-10.1) mg/dL Calcium Adj for Albumin (8.5-10.1) mg/dL Total Bilirubin (0.2-1.0) mg/dL AST (15-37) U/L Total Protein (6.4-8.2) g/dL Albumin (3.4-5.0) g/dL Pleural RBC 1633 H (0-0) /mm3 Pleural Nuc Cells 230 H (0-10) /mm3 08/16/18 08/16/18 08/16/18 Range/Units 15:00 15:00 15:00 RBC 3.95 L (4.00-5.30) mil/mm3 Hgb 9.8 L D (11.6-15.3) gm/dL Hct 30.5 L (35.0-46.0) % MCV 77.3 L (80.0-100.0) fL MCH 24.7 L (27.0-34.0) pg MCHC (32.0-36.0) % RDW 18.2 H (11.6-17.2) % [place] % (Auto) 12.3 H (0.0-8.0) % [place] # (Auto) 1.2 H (0.0-0.9) th/mm3 PT (9.8-11.6) sec ABG pH (7.380-7.420) ABG pCO2 (38-42) mmHg ABG pO2 (61-120) mmHG ABG HCO3 (22-26) mmol/L ABG Base Excess (-2-2) mmol/L Hemoglobin (12.0-16.0) G/DL Anion Gap 18 H (5-15) meq/L BUN 83 H (7-18) mg/dL Creatinine 3.10 H (0.50-1.00) mg/dL Estimated GFR 18 L (>89) mL/min POC Glucose (68-110) mg/dl Random Glucose 181 H D (74-106) mg/dL Lactic Acid 13.6 H* (0.4-2.0) mmol/L Calcium 13.6 H* D (8.5-10.1) mg/dL Calcium Adj for Albumin 14.6 H* (8.5-10.1) mg/dL Total Bilirubin (0.2-1.0) mg/dL AST (15-37) U/L Total Protein (6.4-8.2) g/dL Albumin 2.8 L (3.4-5.0) g/dL Pleural RBC (0-0) /mm3 Pleural Nuc Cells (0-10) /mm3 08/16/18 08/16/18 08/16/18 Range/Units 15:18 15:53 20:15 RBC (4.00-5.30) mil/mm3 Hgb (11.6-15.3) gm/dL Hct (35.0-46.0) % MCV (80.0-100.0) fL MCH (27.0-34.0) pg MCHC (32.0-36.0) % RDW (11.6-17.2) % [place] % (Auto) (0.0-8.0) % [place] # (Auto) (0.0-0.9) th/mm3 PT 22.6 H D (9.8-11.6) sec ABG pH 7.30 L (7.380-7.420) ABG pCO2 28 L (38-42) mmHg ABG pO2 499 H (61-120) mmHG ABG HCO3 13 L* (22-26) mmol/L ABG Base Excess -11.8 L (-2-2) mmol/L Hemoglobin 9.2 L (12.0-16.0) G/DL Anion Gap (5-15) meq/L BUN (7-18) mg/dL Creatinine (0.50-1.00) mg/dL Estimated GFR (>89) mL/min POC Glucose (68-110) mg/dl Random Glucose (74-106) mg/dL Lactic Acid 10.5 H* (0.4-2.0) mmol/L Calcium (8.5-10.1) mg/dL Calcium Adj for Albumin (8.5-10.1) mg/dL Total Bilirubin (0.2-1.0) mg/dL AST (15-37) U/L Total Protein (6.4-8.2) g/dL Albumin (3.4-5.0) g/dL Pleural RBC (0-0) /mm3 Pleural Nuc Cells (0-10) /mm3 08/17/18 08/17/18 Range/Units 03:20 03:20 RBC 3.74 L (4.00-5.30) mil/mm3 Hgb 9.1 L (11.6-15.3) gm/dL Hct 28.7 L (35.0-46.0) % MCV 76.7 L (80.0-100.0) fL MCH 24.4 L (27.0-34.0) pg MCHC 31.8 L (32.0-36.0) % RDW 18.0 H (11.6-17.2) % [place] % (Auto) (0.0-8.0) % [place] # (Auto) (0.0-0.9) th/mm3 PT (9.8-11.6) sec ABG pH (7.380-7.420) ABG pCO2 (38-42) mmHg ABG pO2 (61-120) mmHG ABG HCO3 (22-26) mmol/L ABG Base Excess (-2-2) mmol/L Hemoglobin (12.0-16.0) G/DL Anion Gap 18 H (5-15) meq/L BUN 89 H (7-18) mg/dL Creatinine 3.38 H (0.50-1.00) mg/dL Estimated GFR 16 L (>89) mL/min POC Glucose (68-110) mg/dl Random Glucose 139 H (74-106) mg/dL Lactic Acid (0.4-2.0) mmol/L Calcium 8.1 L D (8.5-10.1) mg/dL Calcium Adj for Albumin (8.5-10.1) mg/dL Total Bilirubin 2.5 H (0.2-1.0) mg/dL AST 41 H (15-37) U/L Total Protein 5.9 L (6.4-8.2) g/dL Albumin (3.4-5.0) g/dL Pleural RBC (0-0) /mm3 Pleural Nuc Cells (0-10) /mm3 Short CBC 08/16/18 08/17/18 Range/Units 15:00 03:20 WBC 9.9 8.4 (4.0-11.0) th/mm3 Hgb 9.8 L D 9.1 L (11.6-15.3) gm/dL Hct 30.5 L 28.7 L (35.0-46.0) % Plt Count 212 D 210 (150-450) th/mm3 BMP 08/16/18 08/17/18 15:00 03:20 Sodium 145 139 Potassium 4.7 3.7 D Chloride 103 99 Carbon Dioxide 24.0 22.4 BUN 83 H 89 H Creatinine 3.10 H 3.38 H Calcium 13.6 H* D 8.1 L D Liver Function 08/16/18 08/17/18 Range/Units 15:00 03:20 Total Bilirubin 2.5 H (0.2-1.0) mg/dL AST 41 H (15-37) U/L ALT 25 (10-53) U/L Alkaline Phosphatase 63 (45-117) U/L Albumin 2.8 L 3.4 D (3.4-5.0) g/dL <Dru Jane Holli - 08/17/18 09:26> - Imaging Impressions Chest X-Ray 08/17/18 06:00 CONCLUSION: Left basilar density. <Brannon Willard - 08/17/18 17:32> Impressions Chest X-Ray 08/16/18 00:00 CONCLUSION: 1. Improving aeration in the right lung base with resolving airspace disease/ effusion. 2. Left IJ central venous catheter appears to been retracted slightly but still projects over the central venous system. 3. Compensated cardiomegaly. Chest X-Ray 08/16/18 14:58 CONCLUSION: ET tube in good position. Lungs are grossly clear. Chest X-Ray 08/17/18 06:00 CONCLUSION: Left basilar density. <Dru Jane Holli - 08/17/18 09:26> Physical Exam Vital signs: Vital Signs 08/16/18 18:00 08/16/18 18:02 08/16/18 18:07 Temperature Pulse Rate 98 H 99 H Respiratory Rate 7 L 8 L 18 Blood Pressure 114/79 Pulse Oximetry 100 100 100 08/16/18 18:11 08/16/18 19:00 08/16/18 20:00 Temperature 98.4 F Pulse Rate 98 H 93 H 93 H Respiratory Rate 16 14 14 Blood Pressure 114/79 109/83 119/90 Pulse Oximetry 100 100 100 08/16/18 20:04 08/16/18 20:42 08/16/18 21:00 Temperature Pulse Rate 97 H 97 H Respiratory Rate 14 18 15 Blood Pressure 119/90 Pulse Oximetry 100 100 100 08/16/18 21:03 08/16/18 22:00 08/16/18 23:00 Temperature Pulse Rate 97 H 125 H 84 Respiratory Rate 15 Blood Pressure 105/82 97/69 L 84/62 L Pulse Oximetry 100 100 100 08/17/18 00:00 08/17/18 01:00 08/17/18 01:27 Temperature 98.2 F Pulse Rate 82 80 Respiratory Rate 17 Blood Pressure 97/71 L 97/69 L Pulse Oximetry 100 100 100 08/17/18 02:00 08/17/18 03:00 08/17/18 04:00 Temperature 97.6 F Pulse Rate 80 80 81 Respiratory Rate Blood Pressure 97/70 L 92/73 L 101/73 Pulse Oximetry 100 100 100 08/17/18 04:35 08/17/18 05:00 08/17/18 06:00 Temperature Pulse Rate 79 82 Respiratory Rate 16 Blood Pressure 97/67 L 100/73 Pulse Oximetry 100 100 100 08/17/18 07:00 08/17/18 07:43 08/17/18 08:00 Temperature 97.4 F L Pulse Rate 83 79 Respiratory Rate 16 16 16 Blood Pressure 91/67 L 93/70 L Pulse Oximetry 100 100 100 08/17/18 09:00 08/17/18 10:00 08/17/18 11:00 Temperature Pulse Rate 84 84 81 Respiratory Rate 16 16 16 Blood Pressure Pulse Oximetry 100 100 100 08/17/18 11:37 08/17/18 12:00 08/17/18 13:00 Temperature 98.1 F Pulse Rate 83 87 Respiratory Rate 18 16 16 Blood Pressure Pulse Oximetry 100 100 100 08/17/18 13:36 08/17/18 14:00 08/17/18 15:00 Temperature Pulse Rate 83 81 Respiratory Rate 18 16 16 Blood Pressure Pulse Oximetry 100 100 100 08/17/18 16:00 08/17/18 17:00 08/17/18 17:08 Temperature Pulse Rate 86 134 H Respiratory Rate 16 16 16 Blood Pressure Pulse Oximetry 100 100 100 Intake & Output 08/16/18 08/17/18 08/17/18 18:59 06:59 18:59 Intake Total 1457 / 1457 2492 / 2492 1173 / 1173 Output Total 55 / 55 325 / 325 Balance 1402 / 1402 2167 / 2167 1173 / 1173 Weight 83 kg Intake: IV 900 / 900 2492 / 2492 955 / 955 Bumex Inj 25 mg In 100 ml @ 4 63 / 63 63 / 63 mls/hr IV.CONT .Q24H ANAHI Rx#: [id number] EPINEPHrine (1:1000) Inj 2 MG 202 / 202 In D5W Inj 248 ML @ 3 MCG/MIN 22.5 mls/hr IV.CONT TITRATE PRN Rx#:[id number] Diprivan 1000 mg/100 ml Inj 1, 100 / 100 000 mg In 100 ml @ 5 MCG/KG/MIN 2.565 mls/hr IV.CONT TITRATE PRN Rx#:[id number] Sodium Bicarbonate 8.4% Inj 150 758 / 758 242 / 242 MEQ In D5W Inj 850 ML @ 75 mls /hr IV.CONT .[id number] ANAHI Rx#: [id number] Flexbumin 25% Inj 100 ML @ 60 100 / 100 200 / 200 200 / 200 mls/hr IV.SIG Q6HR ANAHI Rx#: [id number] Azithromycin Inj 500 MG In NS 250 / 250 250 / 250 Inj 250 ML @ 250 mls/hr IV.SIG Q24H ANAHI Rx#:[id number] Maxipime Inj 2,000 MG In NS Inj 100 / 100 100 / 100 100 ML @ 200 mls/hr IV.SIG Q24H ANAHI Rx#:[id number] Zyvox 600 mg Premix 300 ML @ 600 / 600 300 mls/hr IV.SIG Q12H ANAHI Rx#: [id number] Levophed-Dextrose 4 mg/250 ml 250 / 250 369 / 369 Drip 4 mg In 250 ml @ 2 MCG/MIN 7.5 mls/hr IV.SIG TITRATE PRN Rx#:[id number] NS Inj 250 ML @ 15 mls/hr IV. 100 / 100 SIG ONCE ANAHI Rx#:[id number] Flagyl 500 MG Inj 100 ML @ 100 100 / 100 200 / 200 100 / 100 mls/hr IV.SIG Q8H ANAHI Rx#: [id number] Intake (Blood Product) Amt 557 / 557 218 / 218 Liquid Pooled Plasma Cp2d Unit 218 / 218 [id number] Liquid Pooled Plasma Cp2d Unit 0 / 0 218 / 218 [id number] Plasma Thawed 5 Day Cp2d Unit 339 / 339 [id number] Output: Urine Amount (Catheter) 55 / 55 325 / 325 Indwelling Urethral Catheter 55 / 55 325 / 325 Other: Date of Last Bowel Movement 08/16/18 08/16/18 08/16/18 # Bowel Movements 1 # Incontinent Bowel Movements 1 <Brannon Willard - 08/17/18 17:32> Vital Signs 08/16/18 09:33 08/16/18 10:00 08/16/18 11:00 Temperature Pulse Rate 86 87 Respiratory Rate 17 22 Blood Pressure 87/72 L 97/74 L Pulse Oximetry 96 100 99 08/16/18 11:15 08/16/18 11:32 08/16/18 12:00 Temperature 97.5 F L 97.5 F L Pulse Rate 84 87 85 Respiratory Rate 14 17 18 Blood Pressure 97/74 L 97/70 L 102/67 Pulse Oximetry 100 100 99 08/16/18 12:23 08/16/18 12:39 08/16/18 13:00 Temperature 97.6 F 97.6 F Pulse Rate 86 84 84 Respiratory Rate 20 14 13 Blood Pressure 102/67 86/54 L 86/54 L Pulse Oximetry 99 100 08/16/18 13:15 08/16/18 13:31 08/16/18 14:00 Temperature 97.4 F L 97.5 F L Pulse Rate 84 84 80 Respiratory Rate 10 L 12 14 Blood Pressure 86/54 L 95/71 L 95/71 L Pulse Oximetry 100 100 100 08/16/18 15:00 08/16/18 15:01 08/16/18 15:02 Temperature Pulse Rate 122 H 126 H Respiratory Rate 17 15 19 Blood Pressure 174/98 H 174/98 H Pulse Oximetry 100 08/16/18 15:05 08/16/18 15:06 08/16/18 15:10 Temperature Pulse Rate 125 H 123 H 119 H Respiratory Rate 16 16 16 Blood Pressure 120/87 122/92 H 112/82 Pulse Oximetry 86 L 08/16/18 15:12 08/16/18 15:13 08/16/18 15:14 Temperature Pulse Rate 119 H 117 H 116 H Respiratory Rate 16 16 15 Blood Pressure 113/97 H 116/86 113/80 Pulse Oximetry 100 99 08/16/18 15:16 08/16/18 15:18 08/16/18 15:21 Temperature Pulse Rate 115 H 116 H 112 H Respiratory Rate 19 16 16 Blood Pressure 117/84 121/85 115/82 Pulse Oximetry 100 98 100 08/16/18 15:22 08/16/18 15:24 08/16/18 15:25 Temperature Pulse Rate 112 H 115 H 113 H Respiratory Rate 17 19 16 Blood Pressure 112/76 128/82 117/87 Pulse Oximetry 100 100 100 08/16/18 15:27 08/16/18 15:28 08/16/18 15:29 Temperature Pulse Rate 113 H 114 H 116 H Respiratory Rate 16 16 16 Blood Pressure 98/76 L 106/81 110/73 Pulse Oximetry 100 100 100 08/16/18 16:00 08/16/18 17:00 08/16/18 17:01 Temperature Pulse Rate 116 H 99 H 99 H Respiratory Rate 18 15 15 Blood Pressure 98/53 L 98/53 L Pulse Oximetry 100 100 100 08/16/18 18:00 08/16/18 18:02 08/16/18 18:07 Temperature Pulse Rate 98 H 99 H Respiratory Rate 7 L 8 L 18 Blood Pressure 114/79 Pulse Oximetry 100 100 100 08/16/18 18:11 08/16/18 19:00 08/16/18 20:00 Temperature 98.4 F Pulse Rate 98 H 93 H 93 H Respiratory Rate 16 14 14 Blood Pressure 114/79 109/83 119/90 Pulse Oximetry 100 100 100 08/16/18 20:04 08/16/18 20:42 08/16/18 21:00 Temperature Pulse Rate 97 H 97 H Respiratory Rate 14 18 15 Blood Pressure 119/90 Pulse Oximetry 100 100 100 08/16/18 21:03 08/16/18 22:00 08/16/18 23:00 Temperature Pulse Rate 97 H 125 H 84 Respiratory Rate 15 Blood Pressure 105/82 97/69 L 84/62 L Pulse Oximetry 100 100 100 08/17/18 00:00 08/17/18 01:00 08/17/18 01:27 Temperature 98.2 F Pulse Rate 82 80 Respiratory Rate 17 Blood Pressure 97/71 L 97/69 L Pulse Oximetry 100 100 100 08/17/18 02:00 08/17/18 03:00 08/17/18 04:00 Temperature 97.6 F Pulse Rate 80 80 81 Respiratory Rate Blood Pressure 97/70 L 92/73 L 101/73 Pulse Oximetry 100 100 100 08/17/18 04:35 08/17/18 05:00 08/17/18 06:00 Temperature Pulse Rate 79 82 Respiratory Rate 16 Blood Pressure 97/67 L 100/73 Pulse Oximetry 100 100 100 08/17/18 07:00 08/17/18 07:43 08/17/18 08:00 Temperature 97.4 F L Pulse Rate 83 79 Respiratory Rate 16 16 16 Blood Pressure 91/67 L 93/70 L Pulse Oximetry 100 100 100 08/17/18 09:00 Temperature Pulse Rate 84 Respiratory Rate 16 Blood Pressure Pulse Oximetry 100 Intake & Output 08/16/18 08/17/18 08/17/18 18:59 06:59 18:59 Intake Total 1457 / 1457 2492 / 2492 660 / 660 Output Total 55 / 55 325 / 325 Balance 1402 / 1402 2167 / 2167 660 / 660 Weight 83 kg Intake: IV 900 / 900 2492 / 2492 442 / 442 Bumex Inj 25 mg In 100 ml @ 4 63 / 63 mls/hr IV.CONT .Q24H ANAHI Rx#: [id number] EPINEPHrine (1:1000) Inj 2 MG 202 / 202 In D5W Inj 248 ML @ 3 MCG/MIN 22.5 mls/hr IV.CONT TITRATE PRN Rx#:[id number] Diprivan 1000 mg/100 ml Inj 1, 100 / 100 000 mg In 100 ml @ 5 MCG/KG/MIN 2.565 mls/hr IV.CONT TITRATE PRN Rx#:[id number] Sodium Bicarbonate 8.4% Inj 150 758 / 758 242 / 242 MEQ In D5W Inj 850 ML @ 75 mls /hr IV.CONT .[id number] ANAHI Rx#: [id number] Flexbumin 25% Inj 100 ML @ 60 100 / 100 200 / 200 100 / 100 mls/hr IV.SIG Q6HR ANAHI Rx#: [id number] Azithromycin Inj 500 MG In NS 250 / 250 Inj 250 ML @ 250 mls/hr IV.SIG Q24H ANAHI Rx#:[id number] Maxipime Inj 2,000 MG In NS Inj 100 / 100 100 / 100 100 ML @ 200 mls/hr IV.SIG Q24H ANAHI Rx#:[id number] Zyvox 600 mg Premix 300 ML @ 600 / 600 300 mls/hr IV.SIG Q12H ANAHI Rx#: [id number] Levophed-Dextrose 4 mg/250 ml 250 / 250 369 / 369 Drip 4 mg In 250 ml @ 2 MCG/MIN 7.5 mls/hr IV.SIG TITRATE PRN Rx#:[id number] NS Inj 250 ML @ 15 mls/hr IV. 100 / 100 SIG ONCE ANAHI Rx#:[id number] Flagyl 500 MG Inj 100 ML @ 100 100 / 100 200 / 200 mls/hr IV.SIG Q8H ANAHI Rx#: [id number] Intake (Blood Product) Amt 557 / 557 218 / 218 Liquid Pooled Plasma Cp2d Unit 218 / 218 [id number] Liquid Pooled Plasma Cp2d Unit 0 / 0 218 / 218 [id number] Plasma Thawed 5 Day Cp2d Unit 339 / 339 [id number] Output: Urine Amount (Catheter) 325 / 325 Indwelling Urethral Catheter 325 / 325 Other: Date of Last Bowel Movement 08/16/18 08/16/18 08/16/18 # Bowel Movements 1 # Incontinent Bowel Movements 1 <Dru Jane - 08/17/18 09:26> Narrative: GENERAL: Intubated and mechanically ventilated SKIN: Cold and dry. HEAD: Normocephalic. EYES: No scleral icterus. No injection or drainage. NECK: Intubated, central line and right jugular CARDIOVASCULAR: Regular rate and rhythm with no murmurs, rubs or gallops. Scar left-sided chest from previous pacemaker placement. RESPIRATORY: Breath sounds equal bilaterally. GASTROINTESTINAL: Abdomen soft, non-tender, nondistended. Patient has Bradley in place draining yellow to clear urine without any signs of bleeding. EXTREMITIES: 2+ pitting edema in lower extremities up to thighs bilaterally NEUROLOGICAL: Obtunded on ventilator <Darling Dru Miguel - 08/17/18 10:49> - Urinary Catheter Management Indwelling Urethral Catheter Cath placed during this visit: no <Brannon Willard - 08/17/18 17:32> no <Dru Jane - 08/17/18 13:09> Reason for continuing: Hourly intake/output <Dru Jane 08/17/18 09:26 > Assessment and Plan - Assessment (1) Severe sepsis Code(s): A41.9 - Sepsis, unspecified organism; R65.20 - Severe sepsis without septic shock Status: Acute (2) Pneumonia Code(s): J18.9 - Pneumonia, unspecified organism Status: Acute (3) PEA (Pulseless electrical activity) Code(s): I46.9 - Cardiac arrest, cause unspecified Status: Acute Plan: Patient required ACLS for 9 minutes on 08/16/18 for PEA arrest -ROSC was achieved by critical care medicine Patient was intubated and sedated and treated with pressor support -Currently off pressor support but minimally responsive See treatment for severe sepsis (4) Acute exacerbation of CHF (congestive heart failure) Code(s): I50.9 - Heart failure, unspecified Status: Acute (5) Acute on chronic kidney failure Code(s): N17.9 - Acute kidney failure, unspecified; N18.9 - Chronic kidney disease, unspecified Status: Acute (6) Pleural effusion Code(s): J90 - Pleural effusion, not elsewhere classified Status: Acute (7) Supratherapeutic INR Code(s): R79.1 - Abnormal coagulation profile Status: Acute (8) Elevated troponin Code(s): R74.8 - Abnormal levels of other serum enzymes Status: Acute (9) Hypertension Code(s): I10 - Essential (primary) hypertension Status: Chronic (10) Nutrition, metabolism, and development symptoms Code(s): R63.8 - Other symptoms and signs concerning food and fluid intake Status: Acute <Brannon Willard - 08/17/18 17:32> (1) Severe sepsis Code(s): A41.9 - Sepsis, unspecified organism; R65.20 - Severe sepsis without septic shock Status: Acute Plan: Community-acquired pneumonia complicated by lower extremity edema in the setting of CHF with an EF of 20%. Patient had pulseless electrical activity yesterday and ACLS protocol was followed. Return of spontaneous circulation achieved in the 9 minutes. Patient status post thoracentesis for pleural effusion. -Intubated mechanically ventilated -Patient off pressor support, blood pressures within normal limits -Lactic acid 10.5 after PEA -Blood cultures (08/15): No growth to date -Sputum culture pending -Respiratory panel pending -Pleural fluid Gram stain and cultures pending -UA: small leuk esterase, urine wbc 7, ucx not indicated studies Plan: Continue - Azithromycin 50 mg IV daily ( 08/15) - Zyvox 600 mg twice daily (08/15) - Flagyl 500 mg every 8h (08/15) - Cefepime 2000 mg every 8 hours (08/15) (2) Pneumonia Code(s): J18.9 - Pneumonia, unspecified organism Status: Acute Plan: Community acquired right-sided pneumonia with lactic acidosis. -DuoNeb every 2 hours as needed -Follow-up with sputum culture -Follow-up with respiratory panel -Follow-up with Legionella urine antigen -Continue with antibiotics per critical care team as dictated above (3) Acute exacerbation of CHF (congestive heart failure) Code(s): I50.9 - Heart failure, unspecified Status: Acute Plan: -BNP 4000 -Patient being diuresed with Bumex IV -Lower extremity edema unchanged from previous exam (4) Acute on chronic kidney failure Code(s): N17.9 - Acute kidney failure, unspecified; N18.9 - Chronic kidney disease, unspecified Status: Acute Plan: This patient stage III CKD with elevated creatinine above baseline on admission. Possibly due to decrease intravascular volume in the setting of sepsis. -Creatinine on admission 2.72 from baseline of 1.5. -Creatinine now 3.38, BUN 89 -Urine output over 500 mL in the last 24 hours Plan: -Trend kidney function -trend I/O -Hemodialysis not recommended by nephrology at this time -nephrology following, appreciate rec (5) Pleural effusion Code(s): J90 - Pleural effusion, not elsewhere classified Status: Acute Plan: Patient status post day 1 after right sided thoracentesis with evacuation of approximately 950 ml of slightly cloudy, yellow colored fluid was removed without difficulty. -Pleural fluid showed 1,333 red blood cells with 230 nucleated cells. Plan: -Follow-up with pleural fluid fungal smear and culture -Follow-up with pleural fluid Gram stain and culture -Follow-up with pleural fluid acid fast bacilli smear and mycobacterial culture (6) Supratherapeutic INR Code(s): R79.1 - Abnormal coagulation profile Status: Acute Plan: Patient on warfarin 6 days a week at home. INR on admission was 5.2. -Hold warfarin -Status post FFP for procedures -INR on 08/16 was 2.2 -Trend INR (7) Elevated troponin Code(s): R74.8 - Abnormal levels of other serum enzymes Status: Acute Plan: Initial troponins of admission 0.10 with no chest pain or ST elevation or depression on EKG. ACS versus elevated troponins in the setting of chronic kidney disease and increased cardiac demand. Patient in SVT on admission now resolved. -EKG: Initial EKG showed supraventricular tachycardia -Chest x-ray consolidation right midlung and cardiomegaly -Initial troponins 0.10--> 0.45 Plan: -Continue to monitor symptoms, patient is not symptomatic at this time -Plan to recheck troponins after patient is stabilized (8) Hypertension Code(s): I10 - Essential (primary) hypertension Status: Chronic Plan: Hypotensive in the setting of sepsis, admitted to ICU. Status post PEA with resumption of spontaneous circulation. Previously on pressure support no longer on pressors. - Patient BP improving, 110/76 without pressor support - Continue to monitor blood pressure (9) Nutrition, metabolism, and development symptoms Code(s): R63.8 - Other symptoms and signs concerning food and fluid intake Status: Acute Plan: Fluids: Per supervisor liquefaction Electrolytes: Replete as needed Nutrition: Renal diet DVT prophylaxis: Not indicated due to supratherapeutic INR <Dru Jane - 08/17/18 13:09> - Attending Attestation Patient case discussed with resident physicians I have independently examined the patient I have read the above note and agree with the assessment and plan as discussed with me I was involved in all medical decision making for this patient Patient remains in critical care and is now intubated and ventilated Currently off pressors and maintaining blood pressure She remains encephalopathic Continue IV antibiotics per critical care recommendations Echocardiogram pending today Brannon Willard MD <Brannon Willard - 08/17/18 17:32> <Dru Jane - Last Filed: 08/17/18 13:09> (3) Acute exacerbation of CHF (congestive heart failure) Qualifiers: Heart failure type: systolic Qualified Code(s): I50.23 - Acute on chronic systolic (congestive) heart failure (4) Acute on chronic kidney failure Qualifiers: Acute renal failure type: unspecified Chronic kidney disease stage: stage 4 ( severe) Qualified Code(s): N17.9 - Acute kidney failure, unspecified; N18.4 - Chronic kidney disease, stage 4 (severe) <Brannon Willard - Last Filed: 08/17/18 17:32> (4) Acute exacerbation of CHF (congestive heart failure) Qualifiers: Heart failure type: systolic Qualified Code(s): I50.23 - Acute on chronic systolic (congestive) heart failure (5) Acute on chronic kidney failure Qualifiers: Acute renal failure type: unspecified Chronic kidney disease stage: stage 4 ( severe) Qualified Code(s): N17.9 - Acute kidney failure, unspecified; N18.4 - Chronic kidney disease, stage 4 (severe) <Dru Jane - Last Filed: 08/17/18 13:09> (3) Acute exacerbation of CHF (congestive heart failure) Qualifiers: Heart failure type: systolic Qualified Code(s): I50.23 - Acute on chronic systolic (congestive) heart failure (4) Acute on chronic kidney failure Qualifiers: Acute renal failure type: unspecified Chronic kidney disease stage: stage 4 ( severe) Qualified Code(s): N17.9 - Acute kidney failure, unspecified; N18.4 - Chronic kidney disease, stage 4 (severe) <Brannon Willard - Last Filed: 08/17/18 17:32> (4) Acute exacerbation of CHF (congestive heart failure) Qualifiers: Heart failure type: systolic Qualified Code(s): I50.23 - Acute on chronic systolic (congestive) heart failure (5) Acute on chronic kidney failure Qualifiers: Acute renal failure type: unspecified Chronic kidney disease stage: stage 4 ( severe) Qualified Code(s): N17.9 - Acute kidney failure, unspecified; N18.4 - Chronic kidney disease, stage 4 (severe)
--- NOTE | 2018-08-17 10:25 | P.PNCC ---
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 Patient also had productive cough and frothy sputum, sometimes blood tinged. She also complained about declining urinary output. Initial ER workup showed a normal white count, however BUN was elevated at 80 and creatinine 2.72. BNP was more than 4000. Chest x-ray showed right midlung infiltrate. Patient received Rocephin and azithromycin for community-acquired pneumonia. Patient was admitted to the [facility]. After admission due to the shortness of breath pedal edema and elevated BNP [facility] gave the patient 20 mg IV Lasix but without much urine output. Initially patient had HR of 170's EKG appeared to be SVT and patient converted to NSR with IV Cardizem 25 mg. However patient's blood pressure started to decline. Because of this patient was given IV fluid boluses total 1.5 L had been given. Systolic blood pressure remains at 70s. Lactic acid was checked and was 8.1. With this information critical care medicine was consulted I evaluated the patient emergently. She is lethargic but wakes up easily answers questions. Still profoundly hypotensive despite 1.5 L bolus. I have ordered additional 500 mL bolus and will start Levophed at 5 mcg/min and titrate as needed. It was noted had that her INR is 5.2. Patient may benefit from inotropic agents if blood pressure improves. Antibiotics had been broadened into cefepime and azithromycin, I will also add IV Zyvox. Hold all further diuresis due to septic shock. Patient is very critical at this time 08/16: Patient sitting up in bed. Off Levophed however urine output is minimal only 75 mL urine output since admission. CVP remains elevated at 14-15. I will attempt forced diuresis with Bumex 2 mg x1 and Bumex 0.5 mg/h infusion. If no response may need hemodialysis. Follow-up chest x-ray today is pending. Chest x-ray shows persistent right sided infiltrate and effusion 08/17: Patient developed PEA cardiac arrest yesterday afternoon. No immediate inciting factors could be identified however most likely cardiac. 2D echo ordered pending. CT of the head pending. Currently patient had been weaned off all of the pressors however remains encephalopathy. Creatinine is worsening to 3.8 however urine output has improved approximately 500 ml UO in the last 12 hours. Objective Vital Signs / I&O: Vital Signs 08/16/18 11:00 08/16/18 11:15 08/16/18 11:32 Temperature 97.5 F L 97.5 F L Pulse Rate 87 84 87 Respiratory Rate 22 14 17 Blood Pressure 97/74 L 97/74 L 97/70 L Pulse Oximetry 99 100 100 08/16/18 12:00 08/16/18 12:23 08/16/18 12:39 Temperature 97.6 F 97.6 F Pulse Rate 85 86 84 Respiratory Rate 18 20 14 Blood Pressure 102/67 102/67 86/54 L Pulse Oximetry 99 99 08/16/18 13:00 08/16/18 13:15 08/16/18 13:31 Temperature 97.4 F L 97.5 F L Pulse Rate 84 84 84 Respiratory Rate 13 10 L 12 Blood Pressure 86/54 L 86/54 L 95/71 L Pulse Oximetry 100 100 100 08/16/18 14:00 08/16/18 15:00 08/16/18 15:01 Temperature Pulse Rate 80 122 H 126 H Respiratory Rate 14 17 15 Blood Pressure 95/71 L 174/98 H 174/98 H Pulse Oximetry 100 100 08/16/18 15:02 08/16/18 15:05 08/16/18 15:06 Temperature Pulse Rate 125 H 123 H Respiratory Rate 19 16 16 Blood Pressure 120/87 122/92 H Pulse Oximetry 86 L 08/16/18 15:10 08/16/18 15:12 08/16/18 15:13 Temperature Pulse Rate 119 H 119 H 117 H Respiratory Rate 16 16 16 Blood Pressure 112/82 113/97 H 116/86 Pulse Oximetry 100 08/16/18 15:14 08/16/18 15:16 08/16/18 15:18 Temperature Pulse Rate 116 H 115 H 116 H Respiratory Rate 15 19 16 Blood Pressure 113/80 117/84 121/85 Pulse Oximetry 99 100 98 08/16/18 15:21 08/16/18 15:22 08/16/18 15:24 Temperature Pulse Rate 112 H 112 H 115 H Respiratory Rate 16 17 19 Blood Pressure 115/82 112/76 128/82 Pulse Oximetry 100 100 100 08/16/18 15:25 08/16/18 15:27 08/16/18 15:28 Temperature Pulse Rate 113 H 113 H 114 H Respiratory Rate 16 16 16 Blood Pressure 117/87 98/76 L 106/81 Pulse Oximetry 100 100 100 08/16/18 15:29 08/16/18 16:00 08/16/18 17:00 Temperature Pulse Rate 116 H 116 H 99 H Respiratory Rate 16 18 15 Blood Pressure 110/73 98/53 L Pulse Oximetry 100 100 100 08/16/18 17:01 08/16/18 18:00 08/16/18 18:02 Temperature Pulse Rate 99 H 98 H 99 H Respiratory Rate 15 7 L 8 L Blood Pressure 98/53 L 114/79 Pulse Oximetry 100 100 100 08/16/18 18:07 08/16/18 18:11 08/16/18 19:00 Temperature Pulse Rate 98 H 93 H Respiratory Rate 18 16 14 Blood Pressure 114/79 109/83 Pulse Oximetry 100 100 100 08/16/18 20:00 08/16/18 20:04 08/16/18 20:42 Temperature 98.4 F Pulse Rate 93 H 97 H Respiratory Rate 14 14 18 Blood Pressure 119/90 119/90 Pulse Oximetry 100 100 100 08/16/18 21:00 08/16/18 21:03 08/16/18 22:00 Temperature Pulse Rate 97 H 97 H 125 H Respiratory Rate 15 15 Blood Pressure 105/82 97/69 L Pulse Oximetry 100 100 100 08/16/18 23:00 08/17/18 00:00 08/17/18 01:00 Temperature 98.2 F Pulse Rate 84 82 80 Respiratory Rate Blood Pressure 84/62 L 97/71 L 97/69 L Pulse Oximetry 100 100 100 08/17/18 01:27 08/17/18 02:00 08/17/18 03:00 Temperature Pulse Rate 80 80 Respiratory Rate 17 Blood Pressure 97/70 L 92/73 L Pulse Oximetry 100 100 100 08/17/18 04:00 08/17/18 04:35 08/17/18 05:00 Temperature 97.6 F Pulse Rate 81 79 Respiratory Rate 16 Blood Pressure 101/73 97/67 L Pulse Oximetry 100 100 100 08/17/18 06:00 08/17/18 07:00 08/17/18 07:43 Temperature Pulse Rate 82 83 Respiratory Rate 16 16 Blood Pressure 100/73 91/67 L Pulse Oximetry 100 100 100 08/17/18 08:00 08/17/18 09:00 08/17/18 10:00 Temperature 97.4 F L Pulse Rate 79 84 84 Respiratory Rate 16 16 16 Blood Pressure 93/70 L Pulse Oximetry 100 100 100 Intake & Output 08/16/18 08/17/18 08/17/18 18:59 06:59 18:59 Intake Total 1457 / 1457 2492 / 2492 760 / 760 Output Total 55 / 55 325 / 325 Balance 1402 / 1402 2167 / 2167 760 / 760 Weight 83 kg Intake: IV 900 / 900 2492 / 2492 542 / 542 Bumex Inj 25 mg In 100 ml @ 4 63 / 63 mls/hr IV.CONT .Q24H ANAHI Rx#: [id number] EPINEPHrine (1:1000) Inj 2 MG 202 / 202 In D5W Inj 248 ML @ 3 MCG/MIN 22.5 mls/hr IV.CONT TITRATE PRN Rx#:[id number] Diprivan 1000 mg/100 ml Inj 1, 100 / 100 000 mg In 100 ml @ 5 MCG/KG/MIN 2.565 mls/hr IV.CONT TITRATE PRN Rx#:[id number] Sodium Bicarbonate 8.4% Inj 150 758 / 758 242 / 242 MEQ In D5W Inj 850 ML @ 75 mls /hr IV.CONT .[id number] ANAHI Rx#: [id number] Flexbumin 25% Inj 100 ML @ 60 100 / 100 200 / 200 100 / 100 mls/hr IV.SIG Q6HR ANAHI Rx#: [id number] Azithromycin Inj 500 MG In NS 250 / 250 Inj 250 ML @ 250 mls/hr IV.SIG Q24H ANAHI Rx#:[id number] Maxipime Inj 2,000 MG In NS Inj 100 / 100 100 / 100 100 ML @ 200 mls/hr IV.SIG Q24H ANAHI Rx#:[id number] Zyvox 600 mg Premix 300 ML @ 600 / 600 300 mls/hr IV.SIG Q12H ANAHI Rx#: [id number] Levophed-Dextrose 4 mg/250 ml 250 / 250 369 / 369 Drip 4 mg In 250 ml @ 2 MCG/MIN 7.5 mls/hr IV.SIG TITRATE PRN Rx#:[id number] NS Inj 250 ML @ 15 mls/hr IV. 100 / 100 SIG ONCE ANAHI Rx#:[id number] Flagyl 500 MG Inj 100 ML @ 100 100 / 100 200 / 200 100 / 100 mls/hr IV.SIG Q8H ANAHI Rx#: [id number] Intake (Blood Product) Amt 557 / 557 218 / 218 Liquid Pooled Plasma Cp2d Unit 218 / 218 [id number] Liquid Pooled Plasma Cp2d Unit 0 / 0 218 / 218 [id number] Plasma Thawed 5 Day Cp2d Unit 339 / 339 [id number] Output: Urine Amount (Catheter) 325 / 325 Indwelling Urethral Catheter 325 / 325 Other: Date of Last Bowel Movement 08/16/18 08/16/18 08/16/18 # Bowel Movements 1 # Incontinent Bowel Movements 1 Result Diagrams: 08/17/18 03:20 08/17/18 03:20 Objective Remarks: General: Ill-appearing -[place] female who is intubated, off sedation moving extremities encephalopathy HEENT: Normocephalic and atraumatic. EOM intact bilaterally. Pupils are reactive. Mild right facial droop. Orotracheally intubated Neck: Supple no JVD Chest: normal inspection of the chest. Scar from AICD placement on the left upper chest. AICD now in right upper chest Resp: Air entry diminished in the right mid chest few crackles heard. No wheezes or rhonchi. On PRVC/AC Rate: S1-S2 heard normally. No murmurs. Normal sinus rhythm GI: Abdomen soft nontender no organomegaly Skin: No rashes or lesions noted, dry skin Neuro: Patient is intubated lightly sedated. Moves extremities spontaneously but weakly. Did not follow commands Assessment and Plan - Assessment and Plan Plan: ASSESSMENT: PEA cardiac arrest Acute metabolic encephalopathy Septic shock Acute respiratory failure Right sided pneumonia, with effusion Lactic acidemia Acute on chronic kidney disease Oliguria Supratherapeutic INR Mild troponin elevation SVT-resolved Systolic heart failure Cardiomyopathy ejection fraction 20-25% Chronic kidney disease Hypertension History of CVA in 2017 Chronic anticoagulation with Coumadin PLAN: NEURO: -Metabolic encephalopathy secondary to sepsis, cannot rule out anoxic brain injury from cardiac arrest -Monitor neuro status closely -No evidence of new CVA at this time -Check CT of the head today due to altered mentation RESP: -Patient has right-sided pneumonia with effusion -Status post ultrasound-guided thoracentesis, studies consistent with transudative versus early exudative effusion -Intubated and placed on mechanical ventilation during CPR yesterday -DuoNeb every 6 hours scheduled and every 2 hours as needed -Follow-up on sputum culture, ABX as below CV: -Following PEA cardiac arrest patient was on epinephrine and Levophed infusion -Both had been weaned off -Actiq acidosis still elevated but trending down -2D echo previously showing EF 20-25%. Repeat 2D echo is pending at this time -Continue Bumex infusion at 1 mg/h -Mild troponin elevation most likely related to demand, if consistently trending up we will consult cardiology -Holding Coumadin -On admission received 25 mg IVP Cardizem for SVT, now in NSR GI: -N.p.o., IV famotidine : -Monitor renal function closely. Bradley catheter. -Nephrology Dr. James following -Start Bumex 2 mg IV push x1 and infusion at 0.5 mg/h ID: -Antibiotics with Zyvox cefepime and azithromycin -Follow blood urine and sputum cultures -Consolidate antibiotics per culture HEME: -Monitor CBC, coags -On Coumadin with supratherapeutic INR-currently on hold, status post 3 units of FFP 08/16/2018 for thoracentesis -Vitamin K given, repeat INR in a.m. ENDO: -Electrolyte replacement as needed PROPH: -Bilateral lower extremity SCDs. IV famotidine LINES: -Utilize peripheral IVs, left IJ central line placed 08/15/2018 -Intubation and left femoral central line placement 08/16/2018 CC time 50 min Patient is very critical at this time even though stabilized. She sustained a PEA cardiac arrest yesterday most likely from cardiac reasons. 2D echo cardiac enzymes and CT of the chest are pending. Her shock has improved however lactic acidosis persist. Urine output improving on Bumex infusion. She may need hemodialysis initiated, however no acute indication at this time. Prognosis is guarded
[2018-08-17] MEDS: Azithromycin Inj 500 MG in Sodium Chlor 0.9% Inj 250 ML IV.SIG SCH (11:24)
--- NOTE | 2018-08-17 11:31 | P.PNNP ---
Subjective Interval history: Patient remains critically ill on the ventilator Physical Exam Vital signs: Vital Signs 08/16/18 11:32 08/16/18 12:00 08/16/18 12:23 Temperature 97.5 F L 97.6 F Pulse Rate 87 85 86 Respiratory Rate 17 18 20 Blood Pressure 97/70 L 102/67 102/67 Pulse Oximetry 100 99 99 08/16/18 12:39 08/16/18 13:00 08/16/18 13:15 Temperature 97.6 F 97.4 F L Pulse Rate 84 84 84 Respiratory Rate 14 13 10 L Blood Pressure 86/54 L 86/54 L 86/54 L Pulse Oximetry 100 100 08/16/18 13:31 08/16/18 14:00 08/16/18 15:00 Temperature 97.5 F L Pulse Rate 84 80 122 H Respiratory Rate 12 14 17 Blood Pressure 95/71 L 95/71 L 174/98 H Pulse Oximetry 100 100 100 08/16/18 15:01 08/16/18 15:02 08/16/18 15:05 Temperature Pulse Rate 126 H 125 H Respiratory Rate 15 19 16 Blood Pressure 174/98 H 120/87 Pulse Oximetry 08/16/18 15:06 08/16/18 15:10 08/16/18 15:12 Temperature Pulse Rate 123 H 119 H 119 H Respiratory Rate 16 16 16 Blood Pressure 122/92 H 112/82 113/97 H Pulse Oximetry 86 L 08/16/18 15:13 08/16/18 15:14 08/16/18 15:16 Temperature Pulse Rate 117 H 116 H 115 H Respiratory Rate 16 15 19 Blood Pressure 116/86 113/80 117/84 Pulse Oximetry 100 99 100 08/16/18 15:18 08/16/18 15:21 08/16/18 15:22 Temperature Pulse Rate 116 H 112 H 112 H Respiratory Rate 16 16 17 Blood Pressure 121/85 115/82 112/76 Pulse Oximetry 98 100 100 08/16/18 15:24 08/16/18 15:25 08/16/18 15:27 Temperature Pulse Rate 115 H 113 H 113 H Respiratory Rate 19 16 16 Blood Pressure 128/82 117/87 98/76 L Pulse Oximetry 100 100 100 08/16/18 15:28 08/16/18 15:29 08/16/18 16:00 Temperature Pulse Rate 114 H 116 H 116 H Respiratory Rate 16 16 18 Blood Pressure 106/81 110/73 98/53 L Pulse Oximetry 100 100 100 08/16/18 17:00 08/16/18 17:01 08/16/18 18:00 Temperature Pulse Rate 99 H 99 H 98 H Respiratory Rate 15 15 7 L Blood Pressure 98/53 L Pulse Oximetry 100 100 100 08/16/18 18:02 08/16/18 18:07 08/16/18 18:11 Temperature Pulse Rate 99 H 98 H Respiratory Rate 8 L 18 16 Blood Pressure 114/79 114/79 Pulse Oximetry 100 100 100 08/16/18 19:00 08/16/18 20:00 08/16/18 20:04 Temperature 98.4 F Pulse Rate 93 H 93 H 97 H Respiratory Rate 14 14 14 Blood Pressure 109/83 119/90 119/90 Pulse Oximetry 100 100 100 08/16/18 20:42 08/16/18 21:00 08/16/18 21:03 Temperature Pulse Rate 97 H 97 H Respiratory Rate 18 15 15 Blood Pressure 105/82 Pulse Oximetry 100 100 100 08/16/18 22:00 08/16/18 23:00 08/17/18 00:00 Temperature 98.2 F Pulse Rate 125 H 84 82 Respiratory Rate Blood Pressure 97/69 L 84/62 L 97/71 L Pulse Oximetry 100 100 100 08/17/18 01:00 08/17/18 01:27 08/17/18 02:00 Temperature Pulse Rate 80 80 Respiratory Rate 17 Blood Pressure 97/69 L 97/70 L Pulse Oximetry 100 100 100 08/17/18 03:00 08/17/18 04:00 08/17/18 04:35 Temperature 97.6 F Pulse Rate 80 81 Respiratory Rate 16 Blood Pressure 92/73 L 101/73 Pulse Oximetry 100 100 100 08/17/18 05:00 08/17/18 06:00 08/17/18 07:00 Temperature Pulse Rate 79 82 83 Respiratory Rate 16 Blood Pressure 97/67 L 100/73 91/67 L Pulse Oximetry 100 100 100 08/17/18 07:43 08/17/18 08:00 08/17/18 09:00 Temperature 97.4 F L Pulse Rate 79 84 Respiratory Rate 16 16 16 Blood Pressure 93/70 L Pulse Oximetry 100 100 100 08/17/18 10:00 Temperature Pulse Rate 84 Respiratory Rate 16 Blood Pressure Pulse Oximetry 100 Intake & Output 08/16/18 08/17/18 08/17/18 18:59 06:59 18:59 Intake Total 1457 / 1457 2492 / 2492 760 / 760 Output Total 55 / 55 325 / 325 Balance 1402 / 1402 2167 / 2167 760 / 760 Weight 83 kg Intake: IV 900 / 900 2492 / 2492 542 / 542 Bumex Inj 25 mg In 100 ml @ 4 63 / 63 mls/hr IV.CONT .Q24H ANAHI Rx#: [id number] EPINEPHrine (1:1000) Inj 2 MG 202 / 202 In D5W Inj 248 ML @ 3 MCG/MIN 22.5 mls/hr IV.CONT TITRATE PRN Rx#:[id number] Diprivan 1000 mg/100 ml Inj 1, 100 / 100 000 mg In 100 ml @ 5 MCG/KG/MIN 2.565 mls/hr IV.CONT TITRATE PRN Rx#:[id number] Sodium Bicarbonate 8.4% Inj 150 758 / 758 242 / 242 MEQ In D5W Inj 850 ML @ 75 mls /hr IV.CONT .[id number] ANAHI Rx#: [id number] Flexbumin 25% Inj 100 ML @ 60 100 / 100 200 / 200 100 / 100 mls/hr IV.SIG Q6HR ANAHI Rx#: [id number] Azithromycin Inj 500 MG In NS 250 / 250 Inj 250 ML @ 250 mls/hr IV.SIG Q24H ANAHI Rx#:[id number] Maxipime Inj 2,000 MG In NS Inj 100 / 100 100 / 100 100 ML @ 200 mls/hr IV.SIG Q24H ANAHI Rx#:[id number] Zyvox 600 mg Premix 300 ML @ 600 / 600 300 mls/hr IV.SIG Q12H ANAHI Rx#: [id number] Levophed-Dextrose 4 mg/250 ml 250 / 250 369 / 369 Drip 4 mg In 250 ml @ 2 MCG/MIN 7.5 mls/hr IV.SIG TITRATE PRN Rx#:[id number] NS Inj 250 ML @ 15 mls/hr IV. 100 / 100 SIG ONCE ANAHI Rx#:[id number] Flagyl 500 MG Inj 100 ML @ 100 100 / 100 200 / 200 100 / 100 mls/hr IV.SIG Q8H ANAHI Rx#: [id number] Intake (Blood Product) Amt 557 / 557 218 / 218 Liquid Pooled Plasma Cp2d Unit 218 / 218 [id number] Liquid Pooled Plasma Cp2d Unit 0 / 0 218 / 218 [id number] Plasma Thawed 5 Day Cp2d Unit 339 / 339 [id number] Output: Urine Amount (Catheter) 325 / 325 Indwelling Urethral Catheter 325 / 325 Other: Date of Last Bowel Movement 08/16/18 08/16/18 08/16/18 # Bowel Movements 1 # Incontinent Bowel Movements 1 Narrative: GENERAL: Intubated and mechanically ventilated SKIN: Cold and dry. HEAD: Normocephalic. EYES: No scleral icterus. No injection or drainage. NECK: Intubated, central line and right jugular CARDIOVASCULAR: Regular rate and rhythm with no murmurs, rubs or gallops. Scar left-sided chest from previous pacemaker placement. RESPIRATORY: Breath sounds equal bilaterally. GASTROINTESTINAL: Abdomen soft, non-tender, nondistended. Patient has Bradley in place draining yellow to clear urine without any signs of bleeding. EXTREMITIES: 2+ pitting edema in lower extremities up to thighs bilaterally NEUROLOGICAL: Obtunded on ventilator - Urinary Catheter Management Indwelling Urethral Catheter Cath placed during this visit: no Reason for continuing: Hourly intake/output Assessment and Plan - Assessment (1) Acute kidney injury superimposed on CKD Code(s): N17.9 - Acute kidney failure, unspecified; N18.9 - Chronic kidney disease, unspecified Status: Acute Plan: Patient coded has PEA arrest patient is intubated Renal function was worsening Patient is in multiorgan failure Creatinine is rising If family wishes then plan to do dialysis in my opinion it will not help in the long run as her as she has cardiomyopathy EF 20%/repeat echocardiogram pending Poor generalized condition
--- NOTE | 2018-08-17 14:45 | ECG ---
Date Performed: 08/16/2018 Time Performed: 15:21:12 PTAGE: 67 years EKG: Sinus tachycardia with PVC(s). Leftward axis Poor R wave progression - probable normal vari ant Lateral ST-T changes may be due to myocardial ischemia Compared to previous tracing the sinus tac hycardia and PVCs are new. There has been some slight variation in nonspecific ST T wave changes. Abn ormal ECG PREVIOUS TRACING : 08/15/2018 20.37 DOCTOR: Gianna Wise Interpretating Date/Time 08/17/2018 14:36:38
[2018-08-17 15:56] LABS: Albumin 3.2 g/dL (3.4-5.0); Anion Gap 11 meq/L (5-15); Aspartate Aminotransferase 40 U/L (15-37); Blood Urea Nitrogen 87 mg/dL (7-18); Calcium 8.1 mg/dL (8.5-10.1); Carbon Dioxide 30.1 meq/L (21.0-32.0); Chloride 100 meq/L (98-107); Glomerular Filtration Rate 17 mL/min (>89); Glucose,Random 110 mg/dL (74-106); Potassium 3.2 meq/L (3.5-5.1); Sodium 141 meq/L (136-145)
[2018-08-17] MEDS: Bumetanide Inj 25 MG/100 ML BAG IV.CONT SCH (15:57)
[2018-08-17 16:00] LABS: Alanine Aminotransferase 26 U/L (10-53); Alkaline Phosphatase 56 U/L (45-117); Total Protein 5.7 g/dL (6.4-8.2)
[2018-08-17] MEDS ORDERED: Metoprolol Inj 5 MG/5 ML Vial ONE (16:37)
[2018-08-17] MEDS ORDERED: Potassium Chlor 40 mEq Premix 40 MEQ/100 ML PIGGYBACK IV.SIG ONE (17:00)
[2018-08-17] MEDS ORDERED: Metoprolol Inj 5 MG/5 ML Vial IV.PUSH ONE (17:00)
--- NOTE | 2018-08-17 17:13 | ECHRPT ---
Indication: heart failure CONCLUSIONS Severely dilated left ventricle. Wall thickness is normal. The left ventricular systolic function is severely reduced with an estimated ejection fraction less than 20%. The right ventricular systoilc function is severely decreased. The right ventricle is severely dilated. A pacemaker wire is noted. The left atrial size is moderately dilated. The right atrial size is severely dilated. There is a pacemaker wire present in the right atrial cavity. Severe mitral valve regurgitation. There is severe tricuspid regurgitation. The estimated pulmonary arterial pressure is 48 mmHg. The inferior vena cava is dilated. A large left sided pleural effusion is noted. Trivial pericardial effusion. BP: / HR: Rhythm: MEASUREMENTS (Male / Female) Normal Values Technical Quality: 2D ECHO LV Diastolic Diameter PLAX 6.5 cm 4.2 - 5.9 / 3.9 - 5.3 cm LV Systolic Diameter PLAX 6.3 cm IVS Diastolic Thickness 1.4 cm 0.6 - 1.0 / 0.6 - 0.9 cm LVPW Diastolic Thickness 1.0 cm 0.6 - 1.0 / 0.6 - 0.9 cm LV Relative Wall Thickness 0.4 RV Internal Dim ED PLAX 3.9 cm LVOT Diameter 1.7 cm Aortic Root Diameter 2.8 cm LA Systolic Diameter LX 4.8 cm 3.0 - 4.0 / 2.7 - 3.8 cm M-MODE Aortic Root Diameter MM 3.4 cm LA Systolic Diameter MM 5.1 cm LA Ao Ratio MM 1.5 AV Cusp Separation MM 2.2 cm DOPPLER AV Peak Velocity 109.0 cm/s AV Peak Gradient 4.8 mmHg LVOT Peak Velocity 67.6 cm/s LVOT Peak Gradient 1.8 mmHg AV Area Cont Eq pk 1.4 cm Mitral E Point Velocity 93.8 cm/s Mitral A Point Velocity 56.3 cm/s Mitral E to A Ratio 1.7 LV E' Lateral Velocity 2.5 cm/s Mitral E to LV E' Lateral Ratio 37.1 LV E' Septal Velocity 2.8 cm/s Mitral E to LV E' Septal Ratio 33.1 TR Peak Velocity 307.0 cm/s TR Peak Gradient 37.7 mmHg Right Atrial Pressure 10.0 mmHg Pulmonary Artery Systolic Pressu 47.7 mmHg Right Ventricular Systolic Press 47.7 mmHg PV Peak Velocity 76.0 cm/s PV Peak Gradient 2.3 mmHg FINDINGS LEFT VENTRICLE Severely dilated left ventricle. Wall thickness is normal. The left ventricular systolic function is severely reduced with an estimated ejection fraction less than 20%. RIGHT VENTRICLE The right ventricular systoilc function is severely decreased. The right ventricle is severely dilated. A pacemaker wire is noted. LEFT ATRIUM The left atrial size is moderately dilated. RIGHT ATRIUM The right atrial size is severely dilated. There is a pacemaker wire present in the right atrial cavity. ATRIAL SEPTUM Normal atrial septal thickness without atrial level shunting by limited color doppler interrogation. AORTA The aortic root and proximal ascending aorta are normal in size on limited imaging. MITRAL VALVE Severe mitral valve regurgitation. AORTIC VALVE Trileaflet aortic valve. No aortic valve stenosis or regurgitation. TRICUSPID VALVE There is severe tricuspid regurgitation. The estimated pulmonary arterial pressure is 48 mmHg. PULMONARY VALVE No pulmonary valve regurgitation or stenosis. VESSELS The inferior vena cava is dilated. PERICARDIUM A large left sided pleural effusion is noted. Trivial pericardial effusion. Manuel Zambrano MD (Electronically Signed) Final Date:17 August 2018 17:12
--- NOTE | 2018-08-17 22:53 | CT ---
EXAM DATE: 08/17/2018 10:35 PM EST AGE/SEX: 67 years / Female INDICATIONS: Altered mental status. CLINICAL DATA: This is the patient's initial encounter. Patient reports that signs and symptoms have been present for 1 day and indicates a pain score of 0/10. MEDICAL/SURGICAL HISTORY: Renal failure, chronic. Cerebrovascular disease. Myocardial infarction. Congestive heart failure. Hypertension. None. RADIATION DOSE: 56.77 CTDI (mGy) [place] [facility] [place]/12/[place]. . TECHNIQUE: CT of the head without contrast. Using automated exposure control and adjustment of the mA and/or kV according to patient size, radiation dose was kept as low as reasonably achievable to ob tain optimal diagnostic quality images. DICOM format image data is available electronically for revi ew and comparison. FINDINGS: Cerebrum: The ventricles are normal for age. No evidence of midline shift, mass lesion, hemorrhage or acute infarction. No extraaxial fluid collections are seen. There is an old, small cortical infar ct of the right frontal lobe Posterior Fossa: The cerebellum and brainstem are intact. The 4th ventricle is midline. The cerebe llopontine angle is unremarkable. Extracranial: The visualized portion of the orbits is intact. Skull: The calvaria is intact. No evidence of skull fracture. CONCLUSION: 1. No acute intracranial abnormality demonstrated. 2. 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 . Electronically signed by: Trung Martel MD Board Certified Radiologist 08/17/2018 10:51 PM EST
[2018-08-18] MEDS: Albumin Human 25% Inj 100 ML IV.SIG SCH ×4 (00:36→17:41)
[2018-08-18 02:47] LABS: Hematocrit 27.5 % (35.0-46.0); Hemoglobin 9.1 gm/dL (11.6-15.3); Mean Corpuscular HGB Conc 33.1 % (32.0-36.0); Mean Corpuscular Hemoglobin 24.2 pg (27.0-34.0); Mean Corpuscular Volume 73.2 fL (80.0-100.0); Mean Platelet Volume 10.3 fL (7.0-11.0); Platelet Count 168 th/mm3 (150-450); Red Blood Count 3.76 mil/mm3 (4.00-5.30); Red Cell Distribution Width 18.1 % (11.6-17.2); White Blood Count 8.8 th/mm3 (4.0-11.0)
--- NOTE | 2018-08-18 02:49 | XR ---
EXAM DATE: 08/18/2018 2:37 AM EST AGE/SEX: 67 years / Female INDICATIONS: Shortness of breath, possible pulmonary disease. CLINICAL DATA: This is the patient's subsequent encounter. Patient reports that signs and symptoms h ave been present for 3 days and indicates a pain score of Nonresponsive. MEDICAL/SURGICAL HISTORY: Myocardial infarction. Pacemaker. COMPARISON: [facility], CHEST 1V SINGLE AP, 08/17/2018. . FINDINGS: The ET tube and NG tube are well placed. There is a left internal jugular central line in good positi on with its tip over the SVC. There is a pacing/ACD device in place from the right subclavian approa ch. The heart size is enlarged. This increased density at the bases bilaterally being worse than the left. There is silhouetting the left hemidiaphragm. There is underlying interstitial prominence. CONCLUSION: Cardiomegaly Diffuse increased interstitial markings likely related to edema. Increased density at the bases being worse in the left likely related to bilateral effusions. Some de gree of atelectasis or consolidation especially at the left base needs to be considered. Electronically signed by: Trung Rothman MD Board Certified Radiologist 08/18/2018 2:47 AM EST
[2018-08-18] MEDS: Propofol 1000 mg/100 ml Inj 1,000 MG/100 ML BOTTLE IV.CONT PRN (03:15)
[2018-08-18 03:18] LABS: Alanine Aminotransferase 25 U/L (10-53); Albumin 3.5 g/dL (3.4-5.0); Anion Gap 13 meq/L (5-15); Aspartate Aminotransferase 41 U/L (15-37); Blood Urea Nitrogen 84 mg/dL (7-18); Calcium 8.4 mg/dL (8.5-10.1); Carbon Dioxide 29.1 meq/L (21.0-32.0); Chloride 99 meq/L (98-107); Glomerular Filtration Rate 18 mL/min (>89); Glucose,Random 77 mg/dL (74-106); Magnesium 2.1 mg/dL (1.5-2.5); Potassium 3.1 meq/L (3.5-5.1); Sodium 141 meq/L (136-145)
[2018-08-18 03:21] LABS: Alkaline Phosphatase 51 U/L (45-117); Total Protein 5.7 g/dL (6.4-8.2)
[2018-08-18] MEDS: Chlorhexidine Gluconate 2% 1 Pack (2 Cloths) TOPICAL SCH (03:24)
[2018-08-18] MEDS ORDERED: Potassium Chlor 40 mEq Premix 40 MEQ/100 ML PIGGYBACK IV.SIG ONE ×2 (03:45→15:30)
--- NOTE | 2018-08-18 08:07 | P.PNFP ---
Subjective Interval history: Patient seen and examined at bedside this am. No acute events overnight. Patient is off sedation and plan trial extubation later today, per nurse. She is moving all extremities and responding to commands. When asked if she was in pain pt shook head to indicate "no". <Bebe Camargo - 08/18/18 08:07> Results - Labs Result diagrams: 08/18/18 02:00 08/18/18 14:00 <Brannon Willard - 08/18/18 18:47> Abnormal lab results 08/18/18 08/18/18 08/18/18 Range/Units 02:00 02:00 12:08 RBC 3.76 L (4.00-5.30) mil/mm3 Hgb 9.1 L (11.6-15.3) gm/dL Hct 27.5 L (35.0-46.0) % MCV 73.2 L D (80.0-100.0) fL MCH 24.2 L (27.0-34.0) pg RDW 18.1 H (11.6-17.2) % PT (9.8-11.6) sec ABG pH 7.54 H* (7.380-7.420) ABG pCO2 30 L (38-42) mmHg ABG Base Excess 3.4 H (-2-2) mmol/L Hemoglobin 10.1 L (12.0-16.0) G/DL Potassium 3.1 L (3.5-5.1) meq/L BUN 84 H (7-18) mg/dL Creatinine 3.14 H (0.50-1.00) mg/dL Estimated GFR 18 L (>89) mL/min Calcium 8.4 L (8.5-10.1) mg/dL Total Bilirubin 2.6 H (0.2-1.0) mg/dL AST 41 H (15-37) U/L Total Protein 5.7 L (6.4-8.2) g/dL 08/18/18 08/18/18 Range/Units 12:30 14:00 RBC (4.00-5.30) mil/mm3 Hgb (11.6-15.3) gm/dL Hct (35.0-46.0) % MCV (80.0-100.0) fL MCH (27.0-34.0) pg RDW (11.6-17.2) % PT 23.8 H (9.8-11.6) sec ABG pH (7.380-7.420) ABG pCO2 (38-42) mmHg ABG Base Excess (-2-2) mmol/L Hemoglobin (12.0-16.0) G/DL Potassium 3.3 L (3.5-5.1) meq/L BUN 78 H (7-18) mg/dL Creatinine 3.07 H (0.50-1.00) mg/dL Estimated GFR 18 L (>89) mL/min Calcium (8.5-10.1) mg/dL Total Bilirubin 3.2 H (0.2-1.0) mg/dL AST 52 H (15-37) U/L Total Protein 6.0 L (6.4-8.2) g/dL Short CBC 08/18/18 Range/Units 02:00 WBC 8.8 (4.0-11.0) th/mm3 Hgb 9.1 L (11.6-15.3) gm/dL Hct 27.5 L (35.0-46.0) % Plt Count 168 (150-450) th/mm3 BMP 08/18/18 08/18/18 02:00 14:00 Sodium 141 142 Potassium 3.1 L 3.3 L Chloride 99 99 Carbon Dioxide 29.1 31.5 BUN 84 H 78 H Creatinine 3.14 H 3.07 H Calcium 8.4 L 8.7 Liver Function 08/18/18 08/18/18 Range/Units 02:00 14:00 Total Bilirubin 2.6 H 3.2 H (0.2-1.0) mg/dL AST 41 H 52 H (15-37) U/L ALT 25 26 (10-53) U/L Alkaline Phosphatase 51 52 (45-117) U/L Albumin 3.5 3.7 (3.4-5.0) g/dL <Brannon Willard - 08/18/18 18:47> Abnormal lab results 08/17/18 08/17/18 08/17/18 Range/Units 10:55 15:09 15:09 RBC (4.00-5.30) mil/mm3 Hgb (11.6-15.3) gm/dL Hct (35.0-46.0) % MCV (80.0-100.0) fL MCH (27.0-34.0) pg RDW (11.6-17.2) % Potassium 3.2 L (3.5-5.1) meq/L BUN 87 H (7-18) mg/dL Creatinine 3.25 H (0.50-1.00) mg/dL Estimated GFR 17 L (>89) mL/min Random Glucose 110 H (74-106) mg/dL Lactic Acid 2.1 H (0.4-2.0) mmol/L Calcium 8.1 L (8.5-10.1) mg/dL Total Bilirubin 2.5 H (0.2-1.0) mg/dL AST 40 H (15-37) U/L Troponin I 0.47 H (0.02-0.05) ng/mL Total Protein 5.7 L (6.4-8.2) g/dL Albumin 3.2 L (3.4-5.0) g/dL 08/18/18 08/18/18 Range/Units 02:00 02:00 RBC 3.76 L (4.00-5.30) mil/mm3 Hgb 9.1 L (11.6-15.3) gm/dL Hct 27.5 L (35.0-46.0) % MCV 73.2 L D (80.0-100.0) fL MCH 24.2 L (27.0-34.0) pg RDW 18.1 H (11.6-17.2) % Potassium 3.1 L (3.5-5.1) meq/L BUN 84 H (7-18) mg/dL Creatinine 3.14 H (0.50-1.00) mg/dL Estimated GFR 18 L (>89) mL/min Random Glucose (74-106) mg/dL Lactic Acid (0.4-2.0) mmol/L Calcium 8.4 L (8.5-10.1) mg/dL Total Bilirubin 2.6 H (0.2-1.0) mg/dL AST 41 H (15-37) U/L Troponin I (0.02-0.05) ng/mL Total Protein 5.7 L (6.4-8.2) g/dL Albumin (3.4-5.0) g/dL Short CBC 08/18/18 Range/Units 02:00 WBC 8.8 (4.0-11.0) th/mm3 Hgb 9.1 L (11.6-15.3) gm/dL Hct 27.5 L (35.0-46.0) % Plt Count 168 (150-450) th/mm3 BMP 08/17/18 08/18/18 15:09 02:00 Sodium 141 141 Potassium 3.2 L 3.1 L Chloride 100 99 Carbon Dioxide 30.1 29.1 BUN 87 H 84 H Creatinine 3.25 H 3.14 H Calcium 8.1 L 8.4 L Cardiac Enzymes 08/17/18 Range/Units 10:55 Troponin I 0.47 H (0.02-0.05) ng/mL Liver Function 08/17/18 08/18/18 Range/Units 15:09 02:00 Total Bilirubin 2.5 H 2.6 H (0.2-1.0) mg/dL AST 40 H 41 H (15-37) U/L ALT 26 25 (10-53) U/L Alkaline Phosphatase 56 51 (45-117) U/L Albumin 3.2 L 3.5 (3.4-5.0) g/dL <Bebe Camargo - 08/18/18 08:07> - Imaging Impressions Head CT 08/17/18 00:00 CONCLUSION: 1. No acute intracranial abnormality demonstrated. 2. 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 . Chest X-Ray 08/18/18 06:00 CONCLUSION: Cardiomegaly Diffuse increased interstitial markings likely related to edema. Increased density at the bases being worse in the left likely related to bilateral effusions. Some degree of atelectasis or consolidation especially at the left base needs to be considered. <Brannon Willard - 08/18/18 18:47> Impressions Head CT 08/17/18 00:00 CONCLUSION: 1. No acute intracranial abnormality demonstrated. 2. 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 . Chest X-Ray 08/18/18 06:00 CONCLUSION: Cardiomegaly Diffuse increased interstitial markings likely related to edema. Increased density at the bases being worse in the left likely related to bilateral effusions. Some degree of atelectasis or consolidation especially at the left base needs to be considered. <Bebe Camargo D - 08/18/18 08:07> Physical Exam Vital signs: Vital Signs 08/17/18 19:00 08/17/18 20:00 08/17/18 21:00 Temperature 98.3 F Pulse Rate 87 79 76 Respiratory Rate 17 Blood Pressure 86/62 L Pulse Oximetry 100 100 100 08/17/18 21:35 08/17/18 22:00 08/17/18 22:30 Temperature Pulse Rate 77 Respiratory Rate 16 Blood Pressure 85/59 L Pulse Oximetry 99 100 100 08/17/18 22:44 08/17/18 23:00 08/18/18 00:00 Temperature 97.6 F Pulse Rate 72 70 76 Respiratory Rate 27 H 16 Blood Pressure 86/66 L 90/65 L Pulse Oximetry 100 100 100 08/18/18 00:27 08/18/18 01:00 08/18/18 02:00 Temperature Pulse Rate 76 78 Respiratory Rate 16 Blood Pressure 93/72 L Pulse Oximetry 100 100 100 08/18/18 03:00 08/18/18 04:00 08/18/18 05:00 Temperature 97.4 F L Pulse Rate 79 84 68 Respiratory Rate 16 Blood Pressure 101/75 Pulse Oximetry 100 100 100 08/18/18 05:04 08/18/18 06:00 08/18/18 07:00 Temperature 97.8 F Pulse Rate 77 79 Respiratory Rate 16 18 Blood Pressure 92/71 L Pulse Oximetry 100 92 L 100 08/18/18 07:38 08/18/18 08:00 08/18/18 09:00 Temperature Pulse Rate 85 77 Respiratory Rate 16 18 16 Blood Pressure Pulse Oximetry 100 98 100 08/18/18 10:00 08/18/18 11:00 08/18/18 12:00 Temperature 98.1 F Pulse Rate 87 84 99 H Respiratory Rate 19 20 19 Blood Pressure 85/61 L Pulse Oximetry 100 100 100 08/18/18 12:04 08/18/18 13:00 08/18/18 14:00 Temperature Pulse Rate 105 H 98 H Respiratory Rate 22 18 18 Blood Pressure Pulse Oximetry 100 100 100 08/18/18 15:00 08/18/18 15:29 08/18/18 16:00 Temperature Pulse Rate 91 H 91 H Respiratory Rate 18 16 19 Blood Pressure 117/80 Pulse Oximetry 100 100 100 08/18/18 17:00 08/18/18 18:00 Temperature Pulse Rate 87 91 H Respiratory Rate 16 16 Blood Pressure Pulse Oximetry 100 100 Intake & Output 08/17/18 08/18/18 08/18/18 18:59 06:59 18:59 Intake Total 2230 / 2230 1143.8 / 1143.8 997.2 / 997.2 Output Total 2850 / 2850 3025 / 3025 2750 / 2750 Balance -620 / -620 -1881.2 / -1881.2 -1752.8 / -1752.8 Weight 96 kg Intake: IV 2011 1083.8 / 1083.8 937.2 / 937.2 Bumex Inj 25 mg In 100 ml @ 4 63 / 63 77.1 / 77.1 22.9 / 22.9 mls/hr IV.CONT .Q24H [facility] Rx#: [id number] Diprivan 1000 mg/100 ml Inj 1, 131.6 / 131.6 8.4 / 8.4 000 mg In 100 ml @ 5 MCG/KG/MIN 2.565 mls/hr IV.CONT TITRATE PRN Rx#:[id number] Sodium Bicarbonate 8.4% Inj 150 899 / 899 MEQ In D5W Inj 850 ML @ 75 mls /hr IV.CONT .[id number] [facility] Rx#: [id number] Flexbumin 25% Inj 100 ML @ 60 200 / 200 300 / 300 100 / 100 mls/hr IV.SIG Q6HR [facility] Rx#: [id number] Azithromycin Inj 500 MG In NS 250 / 250 250 / 250 Inj 250 ML @ 250 mls/hr IV.SIG Q24H [facility] Rx#:[id number] Maxipime Inj 2,000 MG In NS Inj 100 / 100 100 / 100 100 ML @ 200 mls/hr IV.SIG Q24H [facility] Rx#:[id number] Zyvox 600 mg Premix 300 ML @ 300 / 300 300 / 300 300 mls/hr IV.SIG Q12H [facility] Rx#: [id number] Magnesium Sulfate 1 gm/D5W 100 100 / 100 ml Premix 100 ML @ 100 mls/hr IV.SIG NOW ONE Rx#:[id number] Levophed-Dextrose 4 mg/250 ml 131 / 131 Drip 4 mg In 250 ml @ 2 MCG/MIN 7.5 mls/hr IV.SIG TITRATE PRN Rx#:[id number] KCl 40 mEq Premix Inj 40 meq In 175.1 / 175.1 24.9 / 24.9 100 ml @ 25 mls/hr IV.SIG ONCE ONE Rx#:[id number] Flagyl 500 MG Inj 100 ML @ 100 200 / 200 100 / 100 200 / 200 mls/hr IV.SIG Q8H [facility] Rx#: [id number] Tube Irrigant 60 / 60 Water Bolus Amount 60 / 60 Intake (Blood Product) Amt 218 / 218 Liquid Pooled Plasma Cp2d Unit 218 218 [id number] Output: Urine Amount (Catheter) 2850 / 2850 3025 / 3025 2750 / 2750 Indwelling Urethral Catheter 2850 / 2850 3025 / 3025 2750 / 2750 Other: Date of Last Bowel Movement 08/16/18 08/16/18 08/16/18 # Bowel Movements 0 0 0 <Brannon Willard - 08/18/18 18:47> Vital Signs 08/17/18 09:00 08/17/18 10:00 08/17/18 11:00 Temperature Pulse Rate 84 84 81 Respiratory Rate 16 16 16 Blood Pressure 99/73 L Pulse Oximetry 100 100 100 08/17/18 11:37 08/17/18 12:00 08/17/18 13:00 Temperature 98.1 F Pulse Rate 83 87 Respiratory Rate 18 16 16 Blood Pressure 101/73 Pulse Oximetry 100 100 100 08/17/18 13:36 08/17/18 14:00 08/17/18 15:00 Temperature Pulse Rate 83 81 Respiratory Rate 18 16 16 Blood Pressure 99/71 L Pulse Oximetry 100 100 100 08/17/18 16:00 08/17/18 17:00 08/17/18 17:08 Temperature Pulse Rate 86 134 H Respiratory Rate 16 16 16 Blood Pressure 101/78 Pulse Oximetry 100 100 100 08/17/18 18:00 08/17/18 18:01 08/17/18 19:00 Temperature Pulse Rate 87 88 87 Respiratory Rate 16 Blood Pressure 93/74 L Pulse Oximetry 100 100 100 08/17/18 20:00 08/17/18 21:00 08/17/18 21:35 Temperature 98.3 F Pulse Rate 79 76 Respiratory Rate 17 16 Blood Pressure 86/62 L Pulse Oximetry 100 100 99 08/17/18 22:00 08/17/18 22:30 08/17/18 22:44 Temperature Pulse Rate 77 72 Respiratory Rate 27 H Blood Pressure 85/59 L 86/66 L Pulse Oximetry 100 100 100 08/17/18 23:00 08/18/18 00:00 08/18/18 00:27 Temperature 97.6 F Pulse Rate 70 76 Respiratory Rate 16 16 Blood Pressure 90/65 L Pulse Oximetry 100 100 100 08/18/18 01:00 08/18/18 02:00 08/18/18 03:00 Temperature Pulse Rate 76 78 79 Respiratory Rate Blood Pressure 93/72 L Pulse Oximetry 100 100 100 08/18/18 04:00 08/18/18 05:00 08/18/18 05:04 Temperature 97.4 F L Pulse Rate 84 68 Respiratory Rate 16 16 Blood Pressure 101/75 Pulse Oximetry 100 100 100 08/18/18 06:00 Temperature Pulse Rate 77 Respiratory Rate Blood Pressure 92/71 L Pulse Oximetry 92 L Intake & Output 08/17/18 08/18/18 08/18/18 18:59 06:59 18:59 Intake Total 2230 / 2230 1143.8 / 1143.8 24.9 / 24.9 Output Total 2850 / 2850 3025 / 3025 Balance -620 / -620 -1881.2 / -1881.2 24.9 / 24.9 Weight 96 kg Intake: IV 2011 1083.8 / 1083.8 24.9 / 24.9 Bumex Inj 25 mg In 100 ml @ 4 63 / 63 77.1 / 77.1 mls/hr IV.CONT .Q24H [facility] Rx#: [id number] Diprivan 1000 mg/100 ml Inj 1, 131.6 / 131.6 000 mg In 100 ml @ 5 MCG/KG/MIN 2.565 mls/hr IV.CONT TITRATE PRN Rx#:[id number] Sodium Bicarbonate 8.4% Inj 150 899 / 899 MEQ In D5W Inj 850 ML @ 75 mls /hr IV.CONT .[id number] [facility] Rx#: [id number] Flexbumin 25% Inj 100 ML @ 60 200 / 200 300 / 300 mls/hr IV.SIG Q6HR [facility] Rx#: [id number] Azithromycin Inj 500 MG In NS 250 / 250 Inj 250 ML @ 250 mls/hr IV.SIG Q24H [facility] Rx#:[id number] Maxipime Inj 2,000 MG In NS Inj 100 / 100 100 ML @ 200 mls/hr IV.SIG Q24H [facility] Rx#:[id number] Zyvox 600 mg Premix 300 ML @ 300 / 300 300 / 300 300 mls/hr IV.SIG Q12H [facility] Rx#: [id number] KCl 40 mEq Premix Inj 40 meq In 175.1 / 175.1 24.9 / 24.9 100 ml @ 25 mls/hr IV.SIG ONCE ONE Rx#:[id number] Flagyl 500 MG Inj 100 ML @ 100 200 / 200 100 / 100 mls/hr IV.SIG Q8H [facility] Rx#: [id number] Tube Irrigant 60 / 60 Intake (Blood Product) Amt 218 / 218 Liquid Pooled Plasma Cp2d Unit 218 / 218 [id number] Output: Urine Amount (Catheter) 2850 / 2850 3025 / 3025 Indwelling Urethral Catheter 2850 / 2850 3025 / 3025 Other: Date of Last Bowel Movement 08/16/18 08/16/18 # Bowel Movements 0 0 <Bebe Camargo - 08/18/18 08:07> Narrative: GENERAL: Intubated and mechanically ventilated. SKIN: warm and dry. HEAD: Normocephalic. EYES: No scleral icterus. No injection or drainage. Opened eyes spontaneously. NECK: Intubated, central line and right jugular CARDIOVASCULAR: Regular rate and rhythm with no murmurs, rubs or gallops. Scar left-sided chest from previous pacemaker placement. RESPIRATORY:Crackles appreciated on mid-lower Right lung, No wheezes or rhonchi. GASTROINTESTINAL: Abdomen soft, non-tender, nondistended. Patient has Bradley in place draining yellow to clear urine without any signs of bleeding. EXTREMITIES: 1+ pitting edema in lower extremities up to thighs bilaterally. Moving all exts. NEUROLOGICAL: On ventilator, pt is off sedation and pressors, responsive to commands. <Bebe Camargo - 08/18/18 10:55> - Urinary Catheter Management Indwelling Urethral Catheter Cath placed during this visit: no <Brannon Willard 08/18/18 18:47> no <Bebe Camargo Toyin - 08/18/18 10:55> Reason for continuing: Hourly intake/output <Bebe Camargo Toyin - 08/18/18 08: 07> Assessment and Plan - Assessment (1) Severe sepsis Code(s): A41.9 - Sepsis, unspecified organism; R65.20 - Severe sepsis without septic shock Status: Acute (2) Pneumonia Code(s): J18.9 - Pneumonia, unspecified organism Status: Acute (3) PEA (Pulseless electrical activity) Code(s): I46.9 - Cardiac arrest, cause unspecified Status: Acute (4) Acute exacerbation of CHF (congestive heart failure) Code(s): I50.9 - Heart failure, unspecified Status: Acute (5) Acute on chronic kidney failure Code(s): N17.9 - Acute kidney failure, unspecified; N18.9 - Chronic kidney disease, unspecified Status: Acute (6) Pleural effusion Code(s): J90 - Pleural effusion, not elsewhere classified Status: Acute (7) Supratherapeutic INR Code(s): R79.1 - Abnormal coagulation profile Status: Resolved (8) Elevated troponin Code(s): R74.8 - Abnormal levels of other serum enzymes Status: Acute (9) Hypertension Code(s): I10 - Essential (primary) hypertension Status: Chronic (10) Nutrition, metabolism, and development symptoms Code(s): R63.8 - Other symptoms and signs concerning food and fluid intake Status: Acute <Brannon Willard 08/18/18 18:47> (1) Severe sepsis Code(s): A41.9 - Sepsis, unspecified organism; R65.20 - Severe sepsis without septic shock Status: Acute Plan: Community-acquired pneumonia complicated by lower extremity edema in the setting of CHF with an EF of 20%. Patient status post thoracentesis for pleural effusion. -Intubated mechanically ventilated -Patient off pressor support, blood pressures within normal limits -Lactic acid 10.5 after PEA, improved today at 2.1 -Blood cultures (08/15): No growth to date -Sputum culture pending -Respiratory panel pending -Pleural fluid Gram stain and cultures no growth in 48 hrs -UA: small leuk esterase, urine wbc 7, ucx not indicated studies Plan: Continue - Azithromycin 50 mg IV daily ( 08/15) - Zyvox 600 mg twice daily (08/15) - Flagyl 500 mg every 8h (08/15) - Cefepime 2000 mg every 8 hours (08/15) (2) Pneumonia Code(s): J18.9 - Pneumonia, unspecified organism Status: Acute Plan: Community acquired right-sided pneumonia with lactic acidosis. -DuoNeb every 2 hours as needed -Follow-up with sputum culture -Follow-up with respiratory panel -Follow-up with Legionella urine antigen -Continue with antibiotics per critical care team as dictated above (3) PEA (Pulseless electrical activity) Code(s): I46.9 - Cardiac arrest, cause unspecified Status: Acute Plan: Patient required ACLS for 9 minutes on 08/16/18 for PEA arrest -ROSC was achieved by critical care medicine Patient was intubated and sedated and treated with pressor support -Currently off pressors and sedation -CPAP trials will be attempted today See treatment for severe sepsis (4) Acute exacerbation of CHF (congestive heart failure) Code(s): I50.9 - Heart failure, unspecified Status: Acute Plan: -BNP 4000 -Patient being diuresed with Bumex IV -Lower extremity edema unchanged improved from yesterday -Echo 08/17: EF 20%, fairly dilated left ventricle, severe mitral regurgitation (5) Acute on chronic kidney failure Code(s): N17.9 - Acute kidney failure, unspecified; N18.9 - Chronic kidney disease, unspecified Status: Acute Plan: This patient stage III CKD with elevated creatinine above baseline on admission. Possibly due to decrease intravascular volume in the setting of sepsis. -Creatinine on admission 2.72 from baseline of 1.5. -Creatinine slightly improved BUN 84, Cr 3.14 this am from Cr 3.38, BUN 89 -Urine output over 3,000 mL in the last 24 hours, urine output (2.55 ml/kg/hr) Plan: -Trend kidney function -trend I/O -Hemodialysis not recommended by nephrology at this time -nephrology following, appreciate rec (6) Pleural effusion Code(s): J90 - Pleural effusion, not elsewhere classified Status: Acute Plan: Patient status post day after right sided thoracentesis (08/16/18) with evacuation of approximately 950 ml of slightly cloudy, yellow colored fluid was removed without difficulty. -Pleural fluid showed 1,333 red blood cells with 230 nucleated cells. Plan: -Follow-up with pleural fluid fungal smear and culture -Follow-up with pleural fluid Gram stain and culture -Follow-up with pleural fluid acid fast bacilli smear and mycobacterial culture (7) Supratherapeutic INR Code(s): R79.1 - Abnormal coagulation profile Status: Resolved Plan: Patient on warfarin 6 days a week at home. INR on admission was 5.2. -Hold warfarin -Status post FFP for procedures -INR on 08/16 was 2.2 -Trend INR (8) Elevated troponin Code(s): R74.8 - Abnormal levels of other serum enzymes Status: Acute Plan: Initial troponins of admission 0.10 with no chest pain or ST elevation or depression on EKG. ACS versus elevated troponins in the setting of chronic kidney disease and increased cardiac demand. Patient in SVT on admission now resolved. -EKG: Initial EKG showed supraventricular tachycardia -Chest x-ray consolidation right midlung and cardiomegaly -Initial troponins 0.10--> 0.45 Plan: -Continue to monitor symptoms, patient is not symptomatic at this time -Plan to recheck troponins after patient is stabilized (9) Hypertension Code(s): I10 - Essential (primary) hypertension Status: Chronic Plan: Hypotensive in the setting of sepsis, admitted to ICU. Status post PEA with resumption of spontaneous circulation. Previously on pressure support no longer on pressors. - Patient BP improving, 92/71 without pressor support - Continue to monitor blood pressure (10) Nutrition, metabolism, and development symptoms Code(s): R63.8 - Other symptoms and signs concerning food and fluid intake Status: Acute Plan: Fluids: Per oil well logger Electrolytes: Replete as needed Nutrition: Renal diet DVT prophylaxis: scds, previously supratherapeutic INR, INR 2.2 on 08/16, <Bebe Camargo D - 08/18/18 10:25> - Attending Attestation Patient case discussed with resident physicians I have independently examined the patient I have read the above note and agree with the assessment and plan as discussed with me I was involved in all medical decision making for this patient Patient remains intubated but is off all sedation and pressors Plan to attempt weaning trials today on mechanical ventilation Continue IV antibiotics per critical care Follow sputum cultures and blood cultures Patient remains under critical care management at this time Brannon Willard MD <Brannon Willard - 08/18/18 18:47> <Bebe Camargo - Last Filed: 08/18/18 10:25> (4) Acute exacerbation of CHF (congestive heart failure) Qualifiers: Heart failure type: systolic Qualified Code(s): I50.23 - Acute on chronic systolic (congestive) heart failure (5) Acute on chronic kidney failure Qualifiers: Acute renal failure type: unspecified Chronic kidney disease stage: stage 4 ( severe) Qualified Code(s): N17.9 - Acute kidney failure, unspecified; N18.4 - Chronic kidney disease, stage 4 (severe) <Brannon Willard - Last Filed: 08/18/18 18:47> (4) Acute exacerbation of CHF (congestive heart failure) Qualifiers: Heart failure type: systolic Qualified Code(s): I50.23 - Acute on chronic systolic (congestive) heart failure (5) Acute on chronic kidney failure Qualifiers: Acute renal failure type: unspecified Chronic kidney disease stage: stage 4 ( severe) Qualified Code(s): N17.9 - Acute kidney failure, unspecified; N18.4 - Chronic kidney disease, stage 4 (severe) <Bebe Camargo - Last Filed: 08/18/18 10:25> (4) Acute exacerbation of CHF (congestive heart failure) Qualifiers: Heart failure type: systolic Qualified Code(s): I50.23 - Acute on chronic systolic (congestive) heart failure (5) Acute on chronic kidney failure Qualifiers: Acute renal failure type: unspecified Chronic kidney disease stage: stage 4 ( severe) Qualified Code(s): N17.9 - Acute kidney failure, unspecified; N18.4 - Chronic kidney disease, stage 4 (severe) <Brannon Willard - Last Filed: 08/18/18 18:47> (4) Acute exacerbation of CHF (congestive heart failure) Qualifiers: Heart failure type: systolic Qualified Code(s): I50.23 - Acute on chronic systolic (congestive) heart failure (5) Acute on chronic kidney failure Qualifiers: Acute renal failure type: unspecified Chronic kidney disease stage: stage 4 ( severe) Qualified Code(s): N17.9 - Acute kidney failure, unspecified; N18.4 - Chronic kidney disease, stage 4 (severe)
[2018-08-18] MEDS: Sodium Bicarbonate 650 MG Tablet PO SCH ×3 (08:21→17:41)
[2018-08-18] MEDS: Senna/Docusate Sodium 8.6/50 MG Tablet PO SCH ×2 (08:21→21:09)
--- NOTE | 2018-08-18 10:24 | P.PNCC ---
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 Patient also had productive cough and frothy sputum, sometimes blood tinged. She also complained about declining urinary output. Initial ER workup showed a normal white count, however BUN was elevated at 80 and creatinine 2.72. BNP was more than 4000. Chest x-ray showed right midlung infiltrate. Patient received Rocephin and azithromycin for community-acquired pneumonia. Patient was admitted to the [facility]. After admission due to the shortness of breath pedal edema and elevated BNP [facility] service gave the patient 20 mg IV Lasix but without much urine output. Initially patient had HR of 170's EKG appeared to be SVT and patient converted to NSR with IV Cardizem 25 mg. However patient's blood pressure started to decline. Because of this patient was given IV fluid boluses total 1.5 L had been given. Systolic blood pressure remains at 70s. Lactic acid was checked and was 8.1. With this information critical care medicine was consulted I evaluated the patient emergently. She is lethargic but wakes up easily answers questions. Still profoundly hypotensive despite 1.5 L bolus. I have ordered additional 500 mL bolus and will start Levophed at 5 mcg/min and titrate as needed. It was noted had that her INR is 5.2. Patient may benefit from inotropic agents if blood pressure improves. Antibiotics had been broadened into cefepime and azithromycin, I will also add IV Zyvox. Hold all further diuresis due to septic shock. Patient is very critical at this time 08/16: Patient sitting up in bed. Off Levophed however urine output is minimal only 75 mL urine output since admission. CVP remains elevated at 14-15. I will attempt forced diuresis with Bumex 2 mg x1 and Bumex 0.5 mg/h infusion. If no response may need hemodialysis. Follow-up chest x-ray today is pending. Chest x-ray shows persistent right sided infiltrate and effusion 08/17: Patient developed PEA cardiac arrest yesterday afternoon. No immediate inciting factors could be identified however most likely cardiac. 2D echo ordered pending. CT of the head pending. Currently patient had been weaned off all of the pressors however remains encephalopathy. Creatinine is worsening to 3.8 however urine output has improved approximately 500 ml UO in the last 12 hours. 08/18: Patient remains intubated lightly sedated. On lightening sedation patient wakes up easily following commands. Remains on Bumex infusion approximately 6 L urine output. However chest x-ray showing pulmonary edema. Remains off pressors. Will attempt CPAP trials. CT head did not show any acute finding Objective Vital Signs / I&O: Vital Signs 08/17/18 11:00 08/17/18 11:37 08/17/18 12:00 Temperature 98.1 F Pulse Rate 81 83 Respiratory Rate 16 18 16 Blood Pressure 101/73 Pulse Oximetry 100 100 100 08/17/18 13:00 08/17/18 13:36 08/17/18 14:00 Temperature Pulse Rate 87 83 Respiratory Rate 16 18 16 Blood Pressure 99/71 L Pulse Oximetry 100 100 100 08/17/18 15:00 08/17/18 16:00 08/17/18 17:00 Temperature Pulse Rate 81 86 134 H Respiratory Rate 16 16 16 Blood Pressure 101/78 Pulse Oximetry 100 100 100 08/17/18 17:08 08/17/18 18:00 08/17/18 18:01 Temperature Pulse Rate 87 88 Respiratory Rate 16 16 Blood Pressure 93/74 L Pulse Oximetry 100 100 100 08/17/18 19:00 08/17/18 20:00 08/17/18 21:00 Temperature 98.3 F Pulse Rate 87 79 76 Respiratory Rate 17 Blood Pressure 86/62 L Pulse Oximetry 100 100 100 08/17/18 21:35 08/17/18 22:00 08/17/18 22:30 Temperature Pulse Rate 77 Respiratory Rate 16 Blood Pressure 85/59 L Pulse Oximetry 99 100 100 08/17/18 22:44 08/17/18 23:00 08/18/18 00:00 Temperature 97.6 F Pulse Rate 72 70 76 Respiratory Rate 27 H 16 Blood Pressure 86/66 L 90/65 L Pulse Oximetry 100 100 100 08/18/18 00:27 08/18/18 01:00 08/18/18 02:00 Temperature Pulse Rate 76 78 Respiratory Rate 16 Blood Pressure 93/72 L Pulse Oximetry 100 100 100 08/18/18 03:00 08/18/18 04:00 08/18/18 05:00 Temperature 97.4 F L Pulse Rate 79 84 68 Respiratory Rate 16 Blood Pressure 101/75 Pulse Oximetry 100 100 100 08/18/18 05:04 08/18/18 06:00 08/18/18 07:00 Temperature 97.8 F Pulse Rate 77 79 Respiratory Rate 16 18 Blood Pressure 92/71 L Pulse Oximetry 100 92 L 100 08/18/18 07:38 08/18/18 08:00 08/18/18 09:00 Temperature Pulse Rate 85 77 Respiratory Rate 16 18 16 Blood Pressure Pulse Oximetry 100 98 100 08/18/18 10:00 Temperature Pulse Rate 87 Respiratory Rate Blood Pressure Pulse Oximetry Intake & Output 08/17/18 08/18/18 08/18/18 18:59 06:59 18:59 Intake Total 2230 / 2230 1143.8 / 1143.8 24.9 / 24.9 Output Total 2850 / 2850 3025 / 3025 Balance -620 / -620 -1881.2 / -1881.2 24.9 / 24.9 Weight 96 kg Intake: IV 2011 1083.8 / 1083.8 24.9 / 24.9 Bumex Inj 25 mg In 100 ml @ 4 63 / 63 77.1 / 77.1 mls/hr IV.CONT .Q24H [facility] Rx#: [id number] Diprivan 1000 mg/100 ml Inj 1, 131.6 / 131.6 000 mg In 100 ml @ 5 MCG/KG/MIN 2.565 mls/hr IV.CONT TITRATE PRN Rx#:[id number] Sodium Bicarbonate 8.4% Inj 150 899 / 899 MEQ In D5W Inj 850 ML @ 75 mls /hr IV.CONT .[id number] [facility] Rx#: [id number] Flexbumin 25% Inj 100 ML @ 60 200 / 200 300 / 300 mls/hr IV.SIG Q6HR [facility] Rx#: [id number] Azithromycin Inj 500 MG In NS 250 / 250 Inj 250 ML @ 250 mls/hr IV.SIG Q24H [facility] Rx#:[id number] Maxipime Inj 2,000 MG In NS Inj 100 / 100 100 ML @ 200 mls/hr IV.SIG Q24H [facility] Rx#:[id number] Zyvox 600 mg Premix 300 ML @ 300 / 300 300 / 300 300 mls/hr IV.SIG Q12H [facility] Rx#: [id number] KCl 40 mEq Premix Inj 40 meq In 175.1 / 175.1 24.9 / 24.9 100 ml @ 25 mls/hr IV.SIG ONCE ONE Rx#:[id number] Flagyl 500 MG Inj 100 ML @ 100 200 / 200 100 / 100 mls/hr IV.SIG Q8H [facility] Rx#: [id number] Tube Irrigant 60 / 60 Intake (Blood Product) Amt 218 / 218 Liquid Pooled Plasma Cp2d Unit 218 / 218 [id number] Output: Urine Amount (Catheter) 2850 / 2850 3025 / 3025 Indwelling Urethral Catheter 2850 / 2850 3025 / 3025 Other: Date of Last Bowel Movement 08/16/18 08/16/18 08/16/18 # Bowel Movements 0 0 Result Diagrams: 08/18/18 02:00 08/18/18 02:00 Objective Remarks: General: Ill-appearing -[place] female who is intubated, off sedation moving extremities HEENT: Normocephalic and atraumatic. EOM intact bilaterally. Pupils are reactive. Mild right facial droop. Orotracheally intubated Neck: Supple no JVD Chest: normal inspection of the chest. Scar from AICD placement on the left upper chest. AICD now in right upper chest Resp: Air entry diminished in the right mid chest few crackles heard. No wheezes or rhonchi. On PRVC/AC Rate: S1-S2 heard normally. No murmurs. Normal sinus rhythm GI: Abdomen soft nontender no organomegaly Skin: No rashes or lesions noted, dry skin Neuro: Patient is intubated lightly sedated. Moves extremities spontaneously but weakly. Did not follow commands Assessment and Plan - Assessment and Plan Plan: ASSESSMENT: PEA cardiac arrest Acute metabolic encephalopathy Septic shock improving Acute respiratory failure Right sided pneumonia, with effusion Lactic acidemia Acute on chronic kidney disease Supratherapeutic INR Mild troponin elevation SVT-resolved Systolic heart failure with exacerbation Severe biventricular failure Severe MR, TR Hypokalemia Cardiomyopathy ejection fraction 20% Chronic kidney disease Hypertension History of CVA in 2017 Chronic anticoagulation with Coumadin PLAN: NEURO: -Metabolic encephalopathy secondary to sepsis, cannot rule out anoxic brain injury from cardiac arrest -Monitor neuro status closely, daily sedation vacation -No evidence of new CVA at this time. CT of the head negative for acute findings old right frontal stroke RESP: -Status post ultrasound-guided thoracentesis, studies consistent with transudative versus early exudative effusion -Intubated and placed on mechanical ventilation during CPR yesterday -DuoNeb every 6 hours scheduled and every 2 hours as needed -Follow-up on sputum culture, ABX as below CV: -Following PEA cardiac arrest patient was on epinephrine and Levophed infusion. Both had been weaned off -Lactic acidosis trending -2D echo previously showing EF 20-25%. -Repeat 2D echo Severely dilated right and left ventricle with severe biventricular dysfunction. LV EF less than 20%. Severe MR and TR -Continue Bumex infusion at 1 mg/h. Start low-dose milrinone -Mild troponin elevation most likely related to demand, if consistently trending up we will consult cardiology -Holding Coumadin -On admission received 25 mg IVP Cardizem for SVT, now in NSR GI: -N.p.o., IV famotidine -Start tube feeds with Nepro if not extubated : -Monitor renal function closely. Bradley catheter. -Nephrology Dr. James following -Bumex infusion at 1 mg/h with excellent urine output ID: -Antibiotics with Zyvox cefepime and azithromycin. Continue Zyvox to -Follow blood urine and sputum cultures, negative to date -Consolidate antibiotics per culture HEME: -Monitor CBC, coags -Status post multiple platelet and vitamin K administration for supratherapeutic INR ENDO: -Electrolyte replacement as needed PROPH: -Bilateral lower extremity SCDs. IV famotidine LINES: -Utilize peripheral IVs, left IJ central line placed 08/15/2018 -Intubation and left femoral central line placement 08/16/2018 CC time 45 min Patient is very critical at this time even though stabilized. She sustained a PEA cardiac arrest yesterday most likely from cardiac reasons. 2D echo shows EF less than 20%, severe MR, severe TR with evidence of severe biventricular failure. Her shock has improved however there is persistent biventricular failure. Start milrinone. Urine output improving on Bumex infusion. Prognosis is guarded with severe biventricular dilatation and failure. We will consult palliative care if not improving in the next 1-2 days
--- NOTE | 2018-08-18 10:56 | P.PNNP ---
Subjective Interval history: Patient remain on the vent. and now off sedation, following some commands. Physical Exam Vital signs: Vital Signs 08/17/18 11:00 08/17/18 11:37 08/17/18 12:00 Temperature 98.1 F Pulse Rate 81 83 Respiratory Rate 16 18 16 Blood Pressure 101/73 Pulse Oximetry 100 100 100 08/17/18 13:00 08/17/18 13:36 08/17/18 14:00 Temperature Pulse Rate 87 83 Respiratory Rate 16 18 16 Blood Pressure 99/71 L Pulse Oximetry 100 100 100 08/17/18 15:00 08/17/18 16:00 08/17/18 17:00 Temperature Pulse Rate 81 86 134 H Respiratory Rate 16 16 16 Blood Pressure 101/78 Pulse Oximetry 100 100 100 08/17/18 17:08 08/17/18 18:00 08/17/18 18:01 Temperature Pulse Rate 87 88 Respiratory Rate 16 16 Blood Pressure 93/74 L Pulse Oximetry 100 100 100 08/17/18 19:00 08/17/18 20:00 08/17/18 21:00 Temperature 98.3 F Pulse Rate 87 79 76 Respiratory Rate 17 Blood Pressure 86/62 L Pulse Oximetry 100 100 100 08/17/18 21:35 08/17/18 22:00 08/17/18 22:30 Temperature Pulse Rate 77 Respiratory Rate 16 Blood Pressure 85/59 L Pulse Oximetry 99 100 100 08/17/18 22:44 08/17/18 23:00 08/18/18 00:00 Temperature 97.6 F Pulse Rate 72 70 76 Respiratory Rate 27 H 16 Blood Pressure 86/66 L 90/65 L Pulse Oximetry 100 100 100 08/18/18 00:27 08/18/18 01:00 08/18/18 02:00 Temperature Pulse Rate 76 78 Respiratory Rate 16 Blood Pressure 93/72 L Pulse Oximetry 100 100 100 08/18/18 03:00 08/18/18 04:00 08/18/18 05:00 Temperature 97.4 F L Pulse Rate 79 84 68 Respiratory Rate 16 Blood Pressure 101/75 Pulse Oximetry 100 100 100 08/18/18 05:04 08/18/18 06:00 08/18/18 07:00 Temperature 97.8 F Pulse Rate 77 79 Respiratory Rate 16 18 Blood Pressure 92/71 L Pulse Oximetry 100 92 L 100 08/18/18 07:38 08/18/18 08:00 08/18/18 09:00 Temperature Pulse Rate 85 77 Respiratory Rate 16 18 16 Blood Pressure Pulse Oximetry 100 98 100 08/18/18 10:00 Temperature Pulse Rate 87 Respiratory Rate Blood Pressure Pulse Oximetry Intake & Output 08/17/18 08/18/18 08/18/18 18:59 06:59 18:59 Intake Total 2230 / 2230 1143.8 / 1143.8 224.9 / 224.9 Output Total 2850 / 2850 3025 / 3025 Balance -620 / -620 -1881.2 / -1881.2 224.9 / 224.9 Weight 96 kg Intake: IV 2011 1083.8 / 1083.8 224.9 / 224.9 Bumex Inj 25 mg In 100 ml @ 4 63 / 63 77.1 / 77.1 mls/hr IV.CONT .Q24H [facility] Rx#: [id number] Diprivan 1000 mg/100 ml Inj 1, 131.6 / 131.6 000 mg In 100 ml @ 5 MCG/KG/MIN 2.565 mls/hr IV.CONT TITRATE PRN Rx#:[id number] Sodium Bicarbonate 8.4% Inj 150 899 / 899 MEQ In D5W Inj 850 ML @ 75 mls /hr IV.CONT .[id number] [facility] Rx#: [id number] Flexbumin 25% Inj 100 ML @ 60 200 / 200 300 / 300 mls/hr IV.SIG Q6HR [facility] Rx#: [id number] Azithromycin Inj 500 MG In NS 250 / 250 Inj 250 ML @ 250 mls/hr IV.SIG Q24H [facility] Rx#:[id number] Maxipime Inj 2,000 MG In NS Inj 100 / 100 100 / 100 100 ML @ 200 mls/hr IV.SIG Q24H [facility] Rx#:[id number] Zyvox 600 mg Premix 300 ML @ 300 / 300 300 / 300 300 mls/hr IV.SIG Q12H [facility] Rx#: [id number] KCl 40 mEq Premix Inj 40 meq In 175.1 / 175.1 24.9 / 24.9 100 ml @ 25 mls/hr IV.SIG ONCE ONE Rx#:[id number] Flagyl 500 MG Inj 100 ML @ 100 200 / 200 100 / 100 100 / 100 mls/hr IV.SIG Q8H [facility] Rx#: [id number] Tube Irrigant 60 / 60 Intake (Blood Product) Amt Liquid Pooled Plasma Cp2d Unit 218 218 [id number] Output: Urine Amount (Catheter) 2850 / 2850 3025 / 3025 Indwelling Urethral Catheter 2850 / 2850 3025 / 3025 Other: Date of Last Bowel Movement 08/16/18 08/16/18 08/16/18 # Bowel Movements 0 0 Narrative: GENERAL: Intubated and mechanically ventilated, off sedation. SKIN: Cold and dry. HEAD: Normocephalic. EYES: No scleral icterus. No injection or drainage. NECK: Intubated, central line and right jugular CARDIOVASCULAR: Regular rate and rhythm with no murmurs, rubs or gallops. Scar left-sided chest from previous pacemaker placement. RESPIRATORY: Breath sounds equal bilaterally. GASTROINTESTINAL: Abdomen soft, non-tender, nondistended. Patient has Bradley in place draining yellow to clear urine without any signs of bleeding. EXTREMITIES: 2+ pitting edema in lower extremities up to thighs bilaterally NEUROLOGICAL: Obtunded on ventilator - Urinary Catheter Management Indwelling Urethral Catheter Cath placed during this visit: no Reason for continuing: Hourly intake/output Assessment and Plan - Assessment (1) Acute kidney injury superimposed on CKD Code(s): N17.9 - Acute kidney failure, unspecified; N18.9 - Chronic kidney disease, unspecified Status: Acute Plan: Patient coded has PEA arrest patient is intubated Renal function was worsening Patient is in multiorgan failure Creatinine is now slightly better. K is low and replaced. She has cardiomyopathy EF 20%/repeat echocardiogram pending BP is stable, follow the urine out put and BMP.
[2018-08-18] MEDS: Azithromycin Inj 500 MG in Sodium Chlor 0.9% Inj 250 ML IV.SIG SCH (11:16)
[2018-08-18] MEDS: Milrinone Inj 20 MG in Sodium Chlor 0.9% Inj 80 ML IV.CONT SCH (11:53)
[2018-08-18 12:14] LABS: ABG Base Excess 3.4 mmol/L (-2-2); ABG PCO2 30 mmHg (38-42); ABG PO2 120 mmHG (61-120)
--- NOTE | 2018-08-18 12:59 | ECG ---
Date Performed: 08/17/2018 Time Performed: 17:31:50 PTAGE: 67 years EKG: Supraventricular tachycardia with due to discern P waves. [place] interval may be short. Wider c omplex QRS is seen, may be ventricular or abberant junctional. Nonspecific T wave change Poor R- wave progression, which may be normal variant Since PREVIOUS TRACING , heart rate has gone from 113 to 142. P waves are difficult to discern on this tracing which may be due to the rate. T wave changes anterolaterally somewhat improved. Clini coty correlation is recommended. PREVIOUS TRACIN08/16/2018 15.21 DOCTOR: Jesus Gamez Interpretating Date/Time 08/18/2018 12:57:17
[2018-08-18 13:14] LABS: INR 2.4 Ratio; Prothrombin Time 23.8 sec (9.8-11.6)
[2018-08-18] MEDS: Midazolam 100 MG/100 ML Inj 100 MG/100 ML BAG IV.CONT PRN (14:16)
[2018-08-18 14:36] LABS: Albumin 3.7 g/dL (3.4-5.0); Anion Gap 12 meq/L (5-15); Aspartate Aminotransferase 52 U/L (15-37); Blood Urea Nitrogen 78 mg/dL (7-18); Calcium 8.7 mg/dL (8.5-10.1); Carbon Dioxide 31.5 meq/L (21.0-32.0); Chloride 99 meq/L (98-107); Glomerular Filtration Rate 18 mL/min (>89); Glucose,Random 101 mg/dL (74-106); Potassium 3.3 meq/L (3.5-5.1); Sodium 142 meq/L (136-145)
[2018-08-18 14:37] LABS: Alanine Aminotransferase 26 U/L (10-53)
[2018-08-18 14:39] LABS: Alkaline Phosphatase 52 U/L (45-117)
[2018-08-18] MEDS: Bumetanide Inj 25 MG/100 ML BAG IV.CONT SCH (15:04)
[2018-08-18] MEDS ORDERED: Mag Sulf 1 gm/100 ml Premix 100 ML IV.SIG ONE (15:45)
[2018-08-19] MEDS: Albumin Human 25% Inj 100 ML IV.SIG SCH ×4 (00:09→17:26)
[2018-08-19] MEDS: Chlorhexidine Gluconate 2% 1 Pack (2 Cloths) TOPICAL SCH (03:45)
[2018-08-19 03:51] LABS: Hematocrit 26.4 % (35.0-46.0); Hemoglobin 8.7 gm/dL (11.6-15.3); Mean Corpuscular HGB Conc 33.1 % (32.0-36.0); Mean Corpuscular Hemoglobin 24.3 pg (27.0-34.0); Mean Corpuscular Volume 73.5 fL (80.0-100.0); Mean Platelet Volume 8.6 fL (7.0-11.0); Platelet Count 136 th/mm3 (150-450); Red Blood Count 3.59 mil/mm3 (4.00-5.30); Red Cell Distribution Width 18.6 % (11.6-17.2); White Blood Count 7.7 th/mm3 (4.0-11.0)
[2018-08-19 04:24] LABS: Alanine Aminotransferase 28 U/L (10-53); Albumin 3.6 g/dL (3.4-5.0); Anion Gap 12 meq/L (5-15); Aspartate Aminotransferase 43 U/L (15-37); Blood Urea Nitrogen 74 mg/dL (7-18); Calcium 8.7 mg/dL (8.5-10.1); Carbon Dioxide 30.9 meq/L (21.0-32.0); Chloride 100 meq/L (98-107); Glomerular Filtration Rate 19 mL/min (>89); Glucose,Random 85 mg/dL (74-106); Potassium 3.1 meq/L (3.5-5.1); Sodium 143 meq/L (136-145)
[2018-08-19 04:26] LABS: Alkaline Phosphatase 49 U/L (45-117); Total Protein 5.8 g/dL (6.4-8.2)
--- NOTE | 2018-08-19 05:11 | XR ---
EXAM DATE: 08/19/2018 4:44 AM EST AGE/SEX: 67 years / Female INDICATIONS: Respiratory failure. CLINICAL DATA: This is the patient's subsequent encounter. Patient reports that signs and symptoms h ave been present for 4 - 6 days and indicates a pain score of Nonresponsive. MEDICAL/SURGICAL HISTORY: Non-responsive. Non-responsive. COMPARISON: [facility], CHEST 1V SINGLE AP, 08/18/2018. . FINDINGS: The ET tube, NG tube and left internal jugular central line are well placed. There is a pacing device seen in the right chest. The cardiac silhouette is enlarged. There appear to be large bilateral pleu ral effusions. This increased density seen throughout the lungs worse at the bases. There is silhouet ting of the hemidiaphragms. CONCLUSION: Suspected bilateral effusions which appear worse. Increased density seen throughout the lungs likely related to underlying diffuse processes such as ed janell. Cardiomegaly. Electronically signed by: Trung Rothman MD Board Certified Radiologist 08/19/2018 5:09 AM EST
[2018-08-19] MEDS ORDERED: Potassium Chlor 40 mEq Premix 40 MEQ/100 ML PIGGYBACK IV.SIG ONE (07:00)
[2018-08-19] MEDS: Sodium Bicarbonate 650 MG Tablet PO SCH ×3 (08:33→17:27)
[2018-08-19] MEDS: Senna/Docusate Sodium 8.6/50 MG Tablet PO SCH ×2 (08:35→20:55)
--- NOTE | 2018-08-19 10:53 | P.PNNP ---
Subjective Interval history: Patient remain intubated, on 35% Fio2, following some commands. Physical Exam Vital signs: Vital Signs 08/18/18 11:00 08/18/18 12:00 08/18/18 12:04 Temperature 98.1 F Pulse Rate 84 99 H Respiratory Rate 20 19 22 Blood Pressure 85/61 L Pulse Oximetry 100 100 100 08/18/18 13:00 08/18/18 14:00 08/18/18 15:00 Temperature Pulse Rate 105 H 98 H 91 H Respiratory Rate 18 18 18 Blood Pressure Pulse Oximetry 100 100 100 08/18/18 15:29 08/18/18 16:00 08/18/18 17:00 Temperature Pulse Rate 91 H 87 Respiratory Rate 16 19 16 Blood Pressure 117/80 Pulse Oximetry 100 100 100 08/18/18 18:00 08/18/18 19:00 08/18/18 20:00 Temperature 97.7 F Pulse Rate 91 H 85 93 H Respiratory Rate 16 Blood Pressure 116/70 Pulse Oximetry 100 100 100 08/18/18 21:00 08/18/18 21:07 08/18/18 22:00 Temperature Pulse Rate 93 H 92 H Respiratory Rate 16 Blood Pressure 114/82 Pulse Oximetry 100 100 100 08/18/18 23:00 08/19/18 00:00 08/19/18 00:32 Temperature 98.6 F Pulse Rate 85 93 H Respiratory Rate 16 Blood Pressure 106/84 Pulse Oximetry 100 100 100 08/19/18 01:00 08/19/18 02:00 08/19/18 03:00 Temperature Pulse Rate 95 H 96 H 90 Respiratory Rate Blood Pressure 107/77 Pulse Oximetry 100 100 100 08/19/18 04:00 08/19/18 04:01 08/19/18 04:57 Temperature Pulse Rate 100 H 100 H Respiratory Rate 16 Blood Pressure 107/83 Pulse Oximetry 100 100 100 08/19/18 05:00 08/19/18 06:00 08/19/18 07:00 Temperature Pulse Rate 99 H 85 99 H Respiratory Rate Blood Pressure 100/71 Pulse Oximetry 100 99 100 08/19/18 07:59 08/19/18 08:00 08/19/18 08:01 Temperature Pulse Rate 106 H 105 H Respiratory Rate 16 Blood Pressure 112/84 Pulse Oximetry 100 100 100 08/19/18 09:00 08/19/18 10:00 08/19/18 10:01 Temperature Pulse Rate 108 H 110 H 110 H Respiratory Rate Blood Pressure 109/73 Pulse Oximetry 100 100 100 Intake & Output 08/18/18 08/19/18 08/19/18 18:59 06:59 18:59 Intake Total 997.2 / 997.2 400 / 400 Output Total 2750 / 2750 2550 / 2550 Balance -1752.8 / -1752.8 -2150 / -2150 Weight 85 kg Intake: IV 937.2 / 937.2 400 / 400 Bumex Inj 25 mg In 100 ml @ 4 22.9 / 22.9 mls/hr IV.CONT .Q24H [facility] Rx#: [id number] Diprivan 1000 mg/100 ml Inj 1, 8.4 / 8.4 000 mg In 100 ml @ 5 MCG/KG/MIN 2.565 mls/hr IV.CONT TITRATE PRN Rx#:[id number] Flexbumin 25% Inj 100 ML @ 60 100 / 100 200 / 200 mls/hr IV.SIG Q6HR [facility] Rx#: [id number] Azithromycin Inj 500 MG In NS 250 / 250 Inj 250 ML @ 250 mls/hr IV.SIG Q24H [facility] Rx#:[id number] Maxipime Inj 2,000 MG In NS Inj 100 / 100 100 ML @ 200 mls/hr IV.SIG Q24H [facility] Rx#:[id number] Magnesium Sulfate 1 gm/D5W 100 100 / 100 ml Premix 100 ML @ 100 mls/hr IV.SIG [facility] Rx#:[id number] Levophed-Dextrose 4 mg/250 ml 131 / 131 Drip 4 mg In 250 ml @ 2 MCG/MIN 7.5 mls/hr IV.SIG TITRATE PRN Rx#:[id number] KCl 40 mEq Premix Inj 40 meq In 24.9 / 24.9 100 / 100 100 ml @ 25 mls/hr IV.SIG [facility] Rx#:[id number] Flagyl 500 MG Inj 100 ML @ 100 200 / 200 100 / 100 mls/hr IV.SIG Q8H [facility] Rx#: [id number] Water Bolus Amount 60 / 60 Output: Urine Amount (Catheter) 2750 / 2750 2550 / 2550 Indwelling Urethral Catheter 2750 / 2750 2550 / 2550 Other: Date of Last Bowel Movement 08/16/18 08/16/18 # Bowel Movements 0 Narrative: GENERAL: Intubated and mechanically ventilated, off sedation. SKIN: Cold and dry. HEAD: Normocephalic. EYES: No scleral icterus. No injection or drainage. NECK: Intubated, central line and right jugular CARDIOVASCULAR: Regular rate and rhythm with no murmurs, rubs or gallops. Scar left-sided chest from previous pacemaker placement. RESPIRATORY: Breath sounds equal bilaterally. GASTROINTESTINAL: Abdomen soft, non-tender, nondistended. Patient has Bradley in place draining yellow to clear urine without any signs of bleeding. EXTREMITIES: 2+ pitting edema in lower extremities up to thighs bilaterally NEUROLOGICAL: Obtunded on ventilator - Urinary Catheter Management Indwelling Urethral Catheter Cath placed during this visit: no Reason for continuing: Hourly intake/output Assessment and Plan - Assessment (1) Acute kidney injury superimposed on CKD Code(s): N17.9 - Acute kidney failure, unspecified; N18.9 - Chronic kidney disease, unspecified Status: Acute Plan: Patient coded has PEA arrest patient is intubated Renal function was worsening Patient is in multiorgan failure Creatinine continue to improve slowly. K is low and replaced. She has cardiomyopathy EF 20%. BP is stable, follow the urine out put and BMP. CXR showing bilateral pleural effusion. Bumex increased, may need HD, mainly for fluid removal, if not better by tomorrow. Dr. James to follow from AM.
--- NOTE | 2018-08-19 11:57 | P.PNCC ---
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 Patient also had productive cough and frothy sputum, sometimes blood tinged. She also complained about declining urinary output. Initial ER workup showed a normal white count, however BUN was elevated at 80 and creatinine 2.72. BNP was more than 4000. Chest x-ray showed right midlung infiltrate. Patient received Rocephin and azithromycin for community-acquired pneumonia. Patient was admitted to the [facility]. After admission due to the shortness of breath pedal edema and elevated BNP [facility] gave the patient 20 mg IV Lasix but without much urine output. Initially patient had HR of 170's EKG appeared to be SVT and patient converted to NSR with IV Cardizem 25 mg. However patient's blood pressure started to decline. Because of this patient was given IV fluid boluses total 1.5 L had been given. Systolic blood pressure remains at 70s. Lactic acid was checked and was 8.1. With this information critical care medicine was consulted I evaluated the patient emergently. She is lethargic but wakes up easily answers questions. Still profoundly hypotensive despite 1.5 L bolus. I have ordered additional 500 mL bolus and will start Levophed at 5 mcg/min and titrate as needed. It was noted had that her INR is 5.2. Patient may benefit from inotropic agents if blood pressure improves. Antibiotics had been broadened into cefepime and azithromycin, I will also add IV Zyvox. Hold all further diuresis due to septic shock. Patient is very critical at this time 08/16: Patient sitting up in bed. Off Levophed however urine output is minimal only 75 mL urine output since admission. CVP remains elevated at 14-15. I will attempt forced diuresis with Bumex 2 mg x1 and Bumex 0.5 mg/h infusion. If no response may need hemodialysis. Follow-up chest x-ray today is pending. Chest x-ray shows persistent right sided infiltrate and effusion 08/17: Patient developed PEA cardiac arrest yesterday afternoon. No immediate inciting factors could be identified however most likely cardiac. 2D echo ordered pending. CT of the head pending. Currently patient had been weaned off all of the pressors however remains encephalopathy. Creatinine is worsening to 3.8 however urine output has improved approximately 500 ml UO in the last 12 hours. /: Patient remains intubated lightly sedated. On lightening sedation patient wakes up easily following commands. Remains on Bumex infusion approximately 6 L urine output. However chest x-ray showing pulmonary edema. Remains off pressors. Will attempt CPAP trials. CT head did not show any acute finding 08/19: Diuresing well with Bumex infusion achieving negative balance however chest x-ray shows bilateral pulmonary vascular congestion and bilateral at least moderate effusions. These are secondary to decompensated heart failure. EF is less than 20 with severe MR. Creatinine down to 3. Prognosis overall is poor despite milrinone and diuresis patient is not proving adequately. We will consult palliative care to address goals of Objective Vital Signs / I&O: Vital Signs 08/18/18 12:00 08/18/18 12:04 08/18/18 13:00 Temperature 98.1 F Pulse Rate 99 H 105 H Respiratory Rate 19 22 18 Blood Pressure 85/61 L Pulse Oximetry 100 100 100 08/18/18 14:00 08/18/18 15:00 08/18/18 15:29 Temperature Pulse Rate 98 H 91 H Respiratory Rate 18 18 16 Blood Pressure Pulse Oximetry 100 100 100 08/18/18 16:00 08/18/18 17:00 08/18/18 18:00 Temperature Pulse Rate 91 H 87 91 H Respiratory Rate 19 16 16 Blood Pressure 117/80 Pulse Oximetry 100 100 100 08/18/18 19:00 08/18/18 20:00 08/18/18 21:00 Temperature 97.7 F Pulse Rate 85 93 H 93 H Respiratory Rate Blood Pressure 116/70 Pulse Oximetry 100 100 100 08/18/18 21:07 08/18/18 22:00 08/18/18 23:00 Temperature Pulse Rate 92 H 85 Respiratory Rate 16 Blood Pressure 114/82 Pulse Oximetry 100 100 100 08/19/18 00:00 08/19/18 00:32 08/19/18 01:00 Temperature 98.6 F Pulse Rate 93 H 95 H Respiratory Rate 16 Blood Pressure 106/84 Pulse Oximetry 100 100 100 08/19/18 02:00 08/19/18 03:00 08/19/18 04:00 Temperature Pulse Rate 96 H 90 100 H Respiratory Rate Blood Pressure 107/77 Pulse Oximetry 100 100 100 08/19/18 04:01 08/19/18 04:57 08/19/18 05:00 Temperature Pulse Rate 100 H 99 H Respiratory Rate 16 Blood Pressure 107/83 Pulse Oximetry 100 100 100 08/19/18 06:00 08/19/18 07:00 08/19/18 07:59 Temperature Pulse Rate 85 99 H Respiratory Rate 16 Blood Pressure 100/71 Pulse Oximetry 99 100 100 08/19/18 08:00 08/19/18 08:01 08/19/18 09:00 Temperature Pulse Rate 106 H 105 H 108 H Respiratory Rate Blood Pressure 112/84 Pulse Oximetry 100 100 100 08/19/18 10:00 08/19/18 10:01 Temperature Pulse Rate 110 H 110 H Respiratory Rate Blood Pressure 109/73 Pulse Oximetry 100 100 Intake & Output 08/18/18 08/19/18 08/19/18 18:59 06:59 18:59 Intake Total 997.2 / 997.2 400 / 400 Output Total 2750 / 2750 2550 / 2550 Balance -1752.8 / -1752.8 -2150 / -2150 Weight 85 kg Intake: IV 937.2 / 937.2 400 / 400 Bumex Inj 25 mg In 100 ml @ 4 22.9 / 22.9 mls/hr IV.CONT .Q24H ANAIH Rx#: [id number] Diprivan 1000 mg/100 ml Inj 1, 8.4 / 8.4 000 mg In 100 ml @ 5 MCG/KG/MIN 2.565 mls/hr IV.CONT TITRATE PRN Rx#:[id number] Flexbumin 25% Inj 100 ML @ 60 100 / 100 200 / 200 mls/hr IV.SIG Q6HR ANAHI Rx#: [id number] Azithromycin Inj 500 MG In NS 250 / 250 Inj 250 ML @ 250 mls/hr IV.SIG Q24H ANAHI Rx#:[id number] Maxipime Inj 2,000 MG In NS Inj 100 / 100 100 ML @ 200 mls/hr IV.SIG Q24H ANAHI Rx#:[id number] Magnesium Sulfate 1 gm/D5W 100 100 / 100 ml Premix 100 ML @ 100 mls/hr IV.SIG NOW ONE Rx#:[id number] Levophed-Dextrose 4 mg/250 ml 131 / 131 Drip 4 mg In 250 ml @ 2 MCG/MIN 7.5 mls/hr IV.SIG TITRATE PRN Rx#:[id number] KCl 40 mEq Premix Inj 40 meq In 24.9 / 24.9 100 / 100 100 ml @ 25 mls/hr IV.SIG NOW ONE Rx#:[id number] Flagyl 500 MG Inj 100 ML @ 100 200 / 200 100 / 100 mls/hr IV.SIG Q8H ANAHI Rx#: [id number] Water Bolus Amount 60 / 60 Output: Urine Amount (Catheter) 2750 / 2750 2550 / 2550 Indwelling Urethral Catheter 2750 / 2750 2550 / 2550 Other: Date of Last Bowel Movement 08/16/18 08/16/18 08/16/18 # Bowel Movements 0 Result Diagrams: 08/19/18 03:40 08/19/18 03:40 Objective Remarks: General: Ill-appearing -Portuguese female who is intubated, off sedation moving extremities HEENT: Normocephalic and atraumatic. EOM intact bilaterally. Pupils are reactive. Mild right facial droop. Orotracheally intubated Neck: Supple no JVD Chest: normal inspection of the chest. Scar from AICD placement on the left upper chest. AICD now in right upper chest Resp: Air entry diminished in the right mid chest few crackles heard. No wheezes or rhonchi. On PRVC/AC Rate: S1-S2 heard normally. No murmurs. Normal sinus rhythm. CI 1.4 to 1.7 on milrinone GI: Abdomen soft nontender no organomegaly Skin: No rashes or lesions noted, dry skin Neuro: Patient is intubated lightly sedated. Moves extremities spontaneously but weakly. Follows commands when sedation is held Assessment and Plan - Assessment and Plan Plan: ASSESSMENT: PEA cardiac arrest Acute metabolic encephalopathy Septic shock improving Cardiogenic shock Acute respiratory failure Pulmonary edema Decompensated systolic heart failure Bilateral pleural effusion Severe biventricular failure Severe MR, TR Right sided pneumonia, with effusion Lactic acidemia Acute on chronic kidney disease Supratherapeutic INR Mild troponin elevation SVT-resolved Hypokalemia Cardiomyopathy ejection fraction 20% Chronic kidney disease Hypertension History of CVA in 2017 Chronic anticoagulation with Coumadin PLAN: NEURO: -Metabolic encephalopathy secondary to sepsis, cannot rule out anoxic brain injury from cardiac arrest -Monitor neuro status closely, daily sedation vacation -No evidence of new CVA at this time. CT of the head negative for acute findings old right frontal stroke RESP: -Status post ultrasound-guided thoracentesis, studies consistent with transudative versus early exudative effusion -Patient may need bilateral pigtail chest tube -Intubated and placed on mechanical ventilation during CPR 08/16/18 -DuoNeb every 6 hours scheduled and every 2 hours as needed -Follow-up on sputum culture, ABX as below CV: -Following PEA cardiac arrest patient was on epinephrine and Levophed infusion. Both had been weaned off -Milrinone started for decompensated heart failure, titrate to keep cardiac index more than 2 -2D echo previously showing EF 20-25%. Repeat 2D echo Severely dilated right and left ventricle with severe biventricular dysfunction. LV EF less than 20%. Severe MR and TR -Continue Bumex infusion at 1 mg/h. Increased to 2 mg/h -Mild troponin elevation most likely related to demand, if consistently trending up we will consult cardiology -Holding Coumadin -On admission received 25 mg IVP Cardizem for SVT, now in NSR -Patient has persistent congestive heart failure, with bilateral pleural effusions GI: -N.p.o., IV famotidine -Tube feeds with Nepro if not extubated : -Monitor renal function closely. Bradley catheter. -Nephrology Dr. James following -Bumex infusion at 2 mg/h with excellent urine output ID: -Antibiotics with Zyvox cefepime and azithromycin. DC Zyvox. DC azithromycin -Follow blood urine and sputum cultures, negative to date -Consolidate antibiotics per culture HEME: -Monitor CBC, coags -Status post multiple platelet and vitamin K administration for supratherapeutic INR ENDO: -Electrolyte replacement as needed PROPH: -Bilateral lower extremity SCDs. IV famotidine LINES: -Utilize peripheral IVs, left IJ central line placed 08/15/2018 -Intubation and left femoral central line placement 08/16/2018 CC time 45 min Patient is very critical at this time even though stabilized. She sustained a PEA cardiac arrest yesterday most likely from cardiac reasons. 2D echo shows EF less than 20%, severe MR, severe TR with evidence of severe biventricular failure. Her shock has improved however there is persistent biventricular failure. Start milrinone. Urine output improving on Bumex infusion. Prognosis is guarded with severe biventricular dilatation and failure. Despite milrinone and aggressive diuresis patient remains in decompensated congestive heart failure. Palliative care consulted to address goals of care
[2018-08-19] MEDS: Azithromycin Inj 500 MG in Sodium Chlor 0.9% Inj 250 ML IV.SIG SCH (12:17)
[2018-08-19] MEDS: Midazolam 100 MG/100 ML Inj 100 MG/100 ML BAG IV.CONT PRN (15:06)
--- NOTE | 2018-08-19 16:37 | P.PNFP ---
Subjective Interval history: Patient seen and examined at bedside. present at bedside. Patient is intubated, failed CPAP trial due to drop in BP and is now on sedation and pressor support. <Mandi PalacioBebe Toyin - 08/19/18 21:13> Results - Labs Result diagrams: 08/19/18 03:40 08/19/18 17:00 <Amelia Phoenix - 08/19/18 21:23> Abnormal lab results 08/19/18 08/19/18 08/19/18 Range/Units 03:40 03:40 17:00 RBC 3.59 L (4.00-5.30) mil/mm3 Hgb 8.7 L (11.6-15.3) gm/dL Hct 26.4 L (35.0-46.0) % MCV 73.5 L (80.0-100.0) fL MCH 24.3 L (27.0-34.0) pg RDW 18.6 H (11.6-17.2) % Plt Count 136 L (150-450) th/mm3 Sodium 146 H (136-145) meq/L Potassium 3.1 L (3.5-5.1) meq/L Anion Gap 16 H (5-15) meq/L BUN 74 H 70 H (7-18) mg/dL Creatinine 2.98 H 2.92 H (0.50-1.00) mg/dL Estimated GFR 19 L 19 L (>89) mL/min Calcium 8.1 L (8.5-10.1) mg/dL Total Bilirubin 3.4 H 4.2 H (0.2-1.0) mg/dL AST 43 H (15-37) U/L Total Protein 5.8 L 5.9 L (6.4-8.2) g/dL Short CBC 08/19/18 Range/Units 03:40 WBC 7.7 (4.0-11.0) th/mm3 Hgb 8.7 L (11.6-15.3) gm/dL Hct 26.4 L (35.0-46.0) % Plt Count 136 L (150-450) th/mm3 BMP 08/19/18 08/19/18 03:40 17:00 Sodium 143 146 H Potassium 3.1 L 3.5 Chloride 100 105 Carbon Dioxide 30.9 24.7 BUN 74 H 70 H Creatinine 2.98 H 2.92 H Calcium 8.7 8.1 L Liver Function 08/19/18 08/19/18 Range/Units 03:40 17:00 Total Bilirubin 3.4 H 4.2 H (0.2-1.0) mg/dL AST 43 H 35 (15-37) U/L ALT 28 24 (10-53) U/L Alkaline Phosphatase 49 47 (45-117) U/L Albumin 3.6 3.8 (3.4-5.0) g/dL <Amelia Phoenix - 08/19/18 21:23> Abnormal lab results 08/19/18 08/19/18 Range/Units 03:40 03:40 RBC 3.59 L (4.00-5.30) mil/mm3 Hgb 8.7 L (11.6-15.3) gm/dL Hct 26.4 L (35.0-46.0) % MCV 73.5 L (80.0-100.0) fL MCH 24.3 L (27.0-34.0) pg RDW 18.6 H (11.6-17.2) % Plt Count 136 L (150-450) th/mm3 Potassium 3.1 L (3.5-5.1) meq/L BUN 74 H (7-18) mg/dL Creatinine 2.98 H (0.50-1.00) mg/dL Estimated GFR 19 L (>89) mL/min Total Bilirubin 3.4 H (0.2-1.0) mg/dL AST 43 H (15-37) U/L Total Protein 5.8 L (6.4-8.2) g/dL Short CBC 08/19/18 Range/Units 03:40 WBC 7.7 (4.0-11.0) th/mm3 Hgb 8.7 L (11.6-15.3) gm/dL Hct 26.4 L (35.0-46.0) % Plt Count 136 L (150-450) th/mm3 BMP 08/19/18 03:40 Sodium 143 Potassium 3.1 L Chloride 100 Carbon Dioxide 30.9 BUN 74 H Creatinine 2.98 H Calcium 8.7 Liver Function 08/19/18 Range/Units 03:40 Total Bilirubin 3.4 H (0.2-1.0) mg/dL AST 43 H (15-37) U/L ALT 28 (10-53) U/L Alkaline Phosphatase 49 (45-117) U/L Albumin 3.6 (3.4-5.0) g/dL <Mandi Bebe Palacio Toyin - 08/19/18 16:37> - Imaging Impressions Chest X-Ray 08/19/18 06:00 CONCLUSION: Suspected bilateral effusions which appear worse. Increased density seen throughout the lungs likely related to underlying diffuse processes such as edema. Cardiomegaly. <Amelia Phoenix - 08/19/18 21:23> Impressions Chest X-Ray 08/19/18 06:00 CONCLUSION: Suspected bilateral effusions which appear worse. Increased density seen throughout the lungs likely related to underlying diffuse processes such as edema. Cardiomegaly. <Mandi PalacioHannahBebe D - 08/19/18 16:37> Physical Exam Vital signs: Vital Signs 08/18/18 22:00 08/18/18 23:00 08/19/18 00:00 Temperature 98.6 F Pulse Rate 92 H 85 93 H Respiratory Rate Blood Pressure 114/82 106/84 Pulse Oximetry 100 100 100 08/19/18 00:32 08/19/18 01:00 08/19/18 02:00 Temperature Pulse Rate 95 H 96 H Respiratory Rate 16 Blood Pressure 107/77 Pulse Oximetry 100 100 100 08/19/18 03:00 08/19/18 04:00 08/19/18 04:01 Temperature Pulse Rate 90 100 H 100 H Respiratory Rate Blood Pressure 107/83 Pulse Oximetry 100 100 100 08/19/18 04:57 08/19/18 05:00 08/19/18 06:00 Temperature Pulse Rate 99 H 85 Respiratory Rate 16 Blood Pressure 100/71 Pulse Oximetry 100 100 99 08/19/18 07:00 08/19/18 07:59 08/19/18 08:00 Temperature Pulse Rate 99 H 106 H Respiratory Rate 16 Blood Pressure Pulse Oximetry 100 100 100 08/19/18 08:01 08/19/18 09:00 08/19/18 10:00 Temperature Pulse Rate 105 H 108 H 110 H Respiratory Rate Blood Pressure 112/84 Pulse Oximetry 100 100 100 08/19/18 10:01 08/19/18 11:00 08/19/18 11:46 Temperature Pulse Rate 110 H 108 H Respiratory Rate 26 H Blood Pressure 109/73 Pulse Oximetry 100 100 08/19/18 12:00 08/19/18 13:00 08/19/18 14:00 Temperature Pulse Rate 106 H 101 H 110 H Respiratory Rate Blood Pressure 103/84 Pulse Oximetry 100 99 100 08/19/18 14:01 08/19/18 15:00 08/19/18 15:24 Temperature Pulse Rate 110 H 103 H Respiratory Rate 16 Blood Pressure 118/81 Pulse Oximetry 100 100 100 08/19/18 16:00 08/19/18 17:00 08/19/18 17:21 Temperature Pulse Rate 108 H 104 H 109 H Respiratory Rate Blood Pressure 126/92 H Pulse Oximetry 100 100 100 08/19/18 18:00 Temperature Pulse Rate 122 H Respiratory Rate Blood Pressure 136/104 H Pulse Oximetry 100 Intake & Output 08/19/18 08/19/18 08/20/18 06:59 18:59 06:59 Intake Total 400 / 400 1300 / 1300 100 / 100 Output Total 2550 / 2550 850 / 850 Balance -2150 / -2150 450 / 450 100 / 100 Weight 85 kg Intake: IV 400 / 400 1300 / 1300 100 / 100 Bumex Inj 25 mg In 100 ml @ 4 100 / 100 mls/hr IV.CONT .Q24H ANAHI Rx#: [id number] Versed Inj 100 mg In 100 ml @ 2 100 / 100 MG/HR 2 mls/hr IV.CONT TITRATE PRN Rx#:[id number] Flexbumin 25% Inj 100 ML @ 60 200 / 200 200 / 200 100 / 100 mls/hr IV.SIG Q6HR ANAHI Rx#: [id number] Azithromycin Inj 500 MG In NS 250 / 250 Inj 250 ML @ 250 mls/hr IV.SIG Q24H ANAHI Rx#:[id number] Maxipime Inj 2,000 MG In NS Inj 100 / 100 100 ML @ 200 mls/hr IV.SIG Q24H ANAHI Rx#:[id number] Levophed-Dextrose 4 mg/250 ml 250 / 250 Drip 4 mg In 250 ml @ 2 MCG/MIN 7.5 mls/hr IV.SIG TITRATE PRN Rx#:[id number] KCl 40 mEq Premix Inj 40 meq In 100 / 100 100 / 100 100 ml @ 25 mls/hr IV.SIG ONCE ONE Rx#:[id number] Flagyl 500 MG Inj 100 ML @ 100 100 / 100 200 / 200 mls/hr IV.SIG Q8H [facility] Rx#: [id number] Output: Urine Amount (Catheter) 2550 / 2550 850 / 850 Indwelling Urethral Catheter 2550 / 2550 850 / 850 Other: Date of Last Bowel Movement 08/16/18 08/16/18 <Amelia Phoenix - 08/19/18 21:23> Vital Signs 08/18/18 17:00 08/18/18 18:00 08/18/18 19:00 Temperature Pulse Rate 87 91 H 85 Respiratory Rate 16 16 Blood Pressure Pulse Oximetry 100 100 100 08/18/18 20:00 08/18/18 21:00 08/18/18 21:07 Temperature 97.7 F Pulse Rate 93 H 93 H Respiratory Rate 16 Blood Pressure 116/70 Pulse Oximetry 100 100 100 08/18/18 22:00 08/18/18 23:00 08/19/18 00:00 Temperature 98.6 F Pulse Rate 92 H 85 93 H Respiratory Rate Blood Pressure 114/82 106/84 Pulse Oximetry 100 100 100 08/19/18 00:32 08/19/18 01:00 08/19/18 02:00 Temperature Pulse Rate 95 H 96 H Respiratory Rate 16 Blood Pressure 107/77 Pulse Oximetry 100 100 100 08/19/18 03:00 08/19/18 04:00 08/19/18 04:01 Temperature Pulse Rate 90 100 H 100 H Respiratory Rate Blood Pressure 107/83 Pulse Oximetry 100 100 100 08/19/18 04:57 08/19/18 05:00 08/19/18 06:00 Temperature Pulse Rate 99 H 85 Respiratory Rate 16 Blood Pressure 100/71 Pulse Oximetry 100 100 99 08/19/18 07:00 08/19/18 07:59 08/19/18 08:00 Temperature Pulse Rate 99 H 106 H Respiratory Rate 16 Blood Pressure Pulse Oximetry 100 100 100 08/19/18 08:01 08/19/18 09:00 08/19/18 10:00 Temperature Pulse Rate 105 H 108 H 110 H Respiratory Rate Blood Pressure 112/84 Pulse Oximetry 100 100 100 08/19/18 10:01 08/19/18 11:00 08/19/18 11:46 Temperature Pulse Rate 110 H 108 H Respiratory Rate 26 H Blood Pressure 109/73 Pulse Oximetry 100 100 08/19/18 12:00 08/19/18 13:00 08/19/18 14:00 Temperature Pulse Rate 106 H 101 H 110 H Respiratory Rate Blood Pressure 103/84 Pulse Oximetry 100 99 100 08/19/18 14:01 08/19/18 15:00 08/19/18 15:24 Temperature Pulse Rate 110 H 103 H Respiratory Rate 16 Blood Pressure 118/81 Pulse Oximetry 100 100 100 08/19/18 16:00 Temperature Pulse Rate 108 H Respiratory Rate Blood Pressure Pulse Oximetry 100 Intake & Output 08/18/18 08/19/18 08/19/18 18:59 06:59 18:59 Intake Total 997.2 / 997.2 400 / 400 1100 / 1100 Output Total 2750 / 2750 2550 / 2550 Balance -1752.8 / -1752.8 -2150 / -2150 1100 / 1100 Weight 85 kg Intake: IV 937.2 / 937.2 400 / 400 1100 / 1100 Bumex Inj 25 mg In 100 ml @ 4 22.9 / 22.9 mls/hr IV.CONT .Q24H ANAHI Rx#: [id number] Versed Inj 100 mg In 100 ml @ 2 100 / 100 MG/HR 2 mls/hr IV.CONT TITRATE PRN Rx#:[id number] Diprivan 1000 mg/100 ml Inj 1, 8.4 / 8.4 000 mg In 100 ml @ 5 MCG/KG/MIN 2.565 mls/hr IV.CONT TITRATE PRN Rx#:[id number] Flexbumin 25% Inj 100 ML @ 60 100 / 100 200 / 200 200 / 200 mls/hr IV.SIG Q6HR ANAHI Rx#: [id number] Azithromycin Inj 500 MG In NS 250 / 250 250 / 250 Inj 250 ML @ 250 mls/hr IV.SIG Q24H ANAHI Rx#:[id number] Maxipime Inj 2,000 MG In NS Inj 100 / 100 100 / 100 100 ML @ 200 mls/hr IV.SIG Q24H ANAHI Rx#:[id number] Magnesium Sulfate 1 gm/D5W 100 100 / 100 ml Premix 100 ML @ 100 mls/hr IV.SIG NOW ONE Rx#:[id number] Levophed-Dextrose 4 mg/250 ml 131 / 131 250 / 250 Drip 4 mg In 250 ml @ 2 MCG/MIN 7.5 mls/hr IV.SIG TITRATE PRN Rx#:[id number] KCl 40 mEq Premix Inj 40 meq In 24.9 / 24.9 100 / 100 100 / 100 100 ml @ 25 mls/hr IV.SIG ONCE ONE Rx#:[id number] Flagyl 500 MG Inj 100 ML @ 100 200 / 200 100 / 100 100 / 100 mls/hr IV.SIG Q8H ANAHI Rx#: [id number] Water Bolus Amount 60 / 60 Output: Urine Amount (Catheter) 2750 / 2750 2550 / 2550 Indwelling Urethral Catheter 2750 / 2750 2550 / 2550 Other: Date of Last Bowel Movement 08/16/18 08/16/18 08/16/18 # Bowel Movements 0 <Calzado R2,Bebe D - 08/19/18 16:37> Narrative: GENERAL: Intubated and mechanically ventilated. SKIN: warm and dry. HEAD: Normocephalic. EYES: No scleral icterus. No injection or drainage. Opened eyes spontaneously. NECK: Intubated, central line and right jugular CARDIOVASCULAR: Regular rate and rhythm with no murmurs, rubs or gallops. Scar left-sided chest from previous pacemaker placement. RESPIRATORY:Crackles appreciated on mid-lower Right lung, No wheezes or rhonchi. GASTROINTESTINAL: Abdomen soft, non-tender, nondistended. Patient has Bradley in place draining yellow to clear urine without any signs of bleeding. EXTREMITIES: 1+ pitting edema in lower extremities up to thighs bilaterally. NEUROLOGICAL: On ventilator, on sedation and pressors. <Calzado R2,Bebe D - 08/19/18 21:13> - Urinary Catheter Management Indwelling Urethral Catheter Cath placed during this visit: no <Amelia Phoenix - 08/19/18 21:23> no <Calzado R2,Bebe D - 08/19/18 21:13> Reason for continuing: Hourly intake/output <Calzado R2,Bebe D - 08/19/18 16: 37> Assessment and Plan - Assessment (1) Severe sepsis Code(s): A41.9 - Sepsis, unspecified organism; R65.20 - Severe sepsis without septic shock Status: Acute (2) Pneumonia Code(s): J18.9 - Pneumonia, unspecified organism Status: Acute (3) PEA (Pulseless electrical activity) Code(s): I46.9 - Cardiac arrest, cause unspecified Status: Acute (4) Acute exacerbation of CHF (congestive heart failure) Code(s): I50.9 - Heart failure, unspecified Status: Acute (5) Acute on chronic kidney failure Code(s): N17.9 - Acute kidney failure, unspecified; N18.9 - Chronic kidney disease, unspecified Status: Acute (6) Pleural effusion Code(s): J90 - Pleural effusion, not elsewhere classified Status: Acute (7) Elevated troponin Code(s): R74.8 - Abnormal levels of other serum enzymes Status: Acute (8) Hypertension Code(s): I10 - Essential (primary) hypertension Status: Chronic (9) Nutrition, metabolism, and development symptoms Code(s): R63.8 - Other symptoms and signs concerning food and fluid intake Status: Acute <LizettAmelia - 08/19/18 21:23> (1) Severe sepsis Code(s): A41.9 - Sepsis, unspecified organism; R65.20 - Severe sepsis without septic shock Status: Acute Plan: Community-acquired pneumonia complicated by lower extremity edema in the setting of CHF with an EF of 20%. Patient status post thoracentesis for pleural effusion. -Intubated mechanically ventilated -Patient placed again on pressor support, blood pressures within normal limits -Lactic acid 10.5 after PEA, improved 2/2 at 2.1 -Blood cultures (08/15): No growth to date -Sputum culture pending -Respiratory panel pending -Pleural fluid Gram stain and cultures no growth in 3 days -UA: small leuk esterase, urine wbc 7, ucx not indicated Plan: Continue - Azithromycin 50 mg IV daily ( 08/15) - Zyvox 600 mg twice daily (08/15) - Flagyl 500 mg every 8h (08/15) - Cefepime 2000 mg every 8 hours (08/15) (2) Pneumonia Code(s): J18.9 - Pneumonia, unspecified organism Status: Acute Plan: Community acquired right-sided pneumonia with lactic acidosis. -DuoNeb every 2 hours as needed -Follow-up with sputum culture -Follow-up with respiratory panel -Follow-up with Legionella urine antigen -Continue with antibiotics per critical care team as dictated above Repeat CXR 2/3 showing worsening BL effusions (3) PEA (Pulseless electrical activity) Code(s): I46.9 - Cardiac arrest, cause unspecified Status: Acute Plan: Patient required ACLS for 9 minutes on 08/16/18 for PEA arrest -ROSC was achieved by critical care medicine Patient was intubated and sedated and treated with pressor support See treatment for severe sepsis (4) Acute exacerbation of CHF (congestive heart failure) Code(s): I50.9 - Heart failure, unspecified Status: Acute Plan: -BNP 4000 -Patient being diuresed with Bumex IV -Lower extremity edema improved -Echo 08/17: EF 20%, fairly dilated left ventricle, severe mitral regurgitation -worsening BL pleural effusion noted on CXR today 2/2 to decompensated HF (5) Acute on chronic kidney failure Code(s): N17.9 - Acute kidney failure, unspecified; N18.9 - Chronic kidney disease, unspecified Status: Acute Plan: This patient stage III CKD with elevated creatinine above baseline on admission. Possibly due to decrease intravascular volume in the setting of sepsis. -Creatinine on admission 2.72 from baseline of 1.5. -Creatinine slightly improved BUN 84, Cr 3.14 this am from Cr 3.38, BUN 89 -Urine output over 3,000 mL in the last 24 hours, urine output (2.55 ml/kg/hr) Plan: -Trend kidney function -trend I/O -Hemodialysis not recommended by nephrology at this time -nephrology following, appreciate rec (6) Pleural effusion Code(s): J90 - Pleural effusion, not elsewhere classified Status: Acute Plan: Patient status post day after right sided thoracentesis (08/16/18) with evacuation of approximately 950 ml of slightly cloudy, yellow colored fluid was removed without difficulty. -Pleural fluid showed 1,333 red blood cells with 230 nucleated cells. Plan: -Follow-up with pleural fluid fungal smear and culture -Follow-up with pleural fluid Gram stain and culture -Follow-up with pleural fluid acid fast bacilli smear and mycobacterial culture Repeat CXR 2/3 showing worsening BL effusions 2/2 to decompensated HF Poor prognosis per critical care team Palliative care consulted to address goals of care (7) Elevated troponin Code(s): R74.8 - Abnormal levels of other serum enzymes Status: Acute Plan: Initial troponins of admission 0.10 with no chest pain or ST elevation or depression on EKG. ACS versus elevated troponins in the setting of chronic kidney disease and increased cardiac demand. Patient in SVT on admission now resolved. -EKG: Initial EKG showed supraventricular tachycardia -Chest x-ray consolidation right midlung and cardiomegaly -Initial troponins 0.10--> 0.45 Plan: -Continue to monitor symptoms, patient is not symptomatic at this time -Plan to recheck troponins after patient is stabilized (8) Hypertension Code(s): I10 - Essential (primary) hypertension Status: Chronic Plan: Patient initially hypotensive in the setting of sepsis, admitted to ICU. Status post PEA with resumption of spontaneous circulation. On pressure support - Patient BP improved, 120s/80s - Continue to monitor blood pressure (9) Nutrition, metabolism, and development symptoms Code(s): R63.8 - Other symptoms and signs concerning food and fluid intake Status: Acute Plan: Fluids: Per counter professional Electrolytes: Replete as needed Nutrition: Renal diet DVT prophylaxis: scds, previously supratherapeutic INR, INR 2.4 on 08/18 <Bebe Camargo - 08/19/18 20:43> - Attending Attestation Patient seen and examined this morning, discussed with resident team. I agree with assessment and management as documented and discussed with me. Pt remains intubated. On CPAP at the time of my exam, but ultimately failed CPAP trial later in the day. Appreciate specialists. <Amelia Phoenix - 08/19/18 21:23> <Bebe Camargo - Last Filed: 08/19/18 20:43> (4) Acute exacerbation of CHF (congestive heart failure) Qualifiers: Heart failure type: systolic Qualified Code(s): I50.23 - Acute on chronic systolic (congestive) heart failure (5) Acute on chronic kidney failure Qualifiers: Acute renal failure type: unspecified Chronic kidney disease stage: stage 4 ( severe) Qualified Code(s): N17.9 - Acute kidney failure, unspecified; N18.4 - Chronic kidney disease, stage 4 (severe) <Amelia Phoenix - Last Filed: 08/19/18 21:23> (4) Acute exacerbation of CHF (congestive heart failure) Qualifiers: Heart failure type: systolic Qualified Code(s): I50.23 - Acute on chronic systolic (congestive) heart failure (5) Acute on chronic kidney failure Qualifiers: Acute renal failure type: unspecified Chronic kidney disease stage: stage 4 ( severe) Qualified Code(s): N17.9 - Acute kidney failure, unspecified; N18.4 - Chronic kidney disease, stage 4 (severe) <Bebe Camargo - Last Filed: 08/19/18 20:43> (4) Acute exacerbation of CHF (congestive heart failure) Qualifiers: Heart failure type: systolic Qualified Code(s): I50.23 - Acute on chronic systolic (congestive) heart failure (5) Acute on chronic kidney failure Qualifiers: Acute renal failure type: unspecified Chronic kidney disease stage: stage 4 ( severe) Qualified Code(s): N17.9 - Acute kidney failure, unspecified; N18.4 - Chronic kidney disease, stage 4 (severe) <Amelia Phoenix - Last Filed: 08/19/18 21:23> (4) Acute exacerbation of CHF (congestive heart failure) Qualifiers: Heart failure type: systolic Qualified Code(s): I50.23 - Acute on chronic systolic (congestive) heart failure (5) Acute on chronic kidney failure Qualifiers: Acute renal failure type: unspecified Chronic kidney disease stage: stage 4 ( severe) Qualified Code(s): N17.9 - Acute kidney failure, unspecified; N18.4 - Chronic kidney disease, stage 4 (severe)
[2018-08-19] MEDS: Milrinone Inj 20 MG in Sodium Chlor 0.9% Inj 80 ML IV.CONT SCH (17:02)
[2018-08-19] MEDS: Bumetanide Inj 25 MG/100 ML BAG IV.CONT SCH ×2 (17:03→18:06)
[2018-08-19 17:37] LABS: Alanine Aminotransferase 24 U/L (10-53); Albumin 3.8 g/dL (3.4-5.0); Anion Gap 16 meq/L (5-15); Aspartate Aminotransferase 35 U/L (15-37); Blood Urea Nitrogen 70 mg/dL (7-18); Calcium 8.1 mg/dL (8.5-10.1); Carbon Dioxide 24.7 meq/L (21.0-32.0); Chloride 105 meq/L (98-107); Glomerular Filtration Rate 19 mL/min (>89); Glucose,Random 94 mg/dL (74-106); Magnesium 1.9 mg/dL (1.5-2.5); Potassium 3.5 meq/L (3.5-5.1); Sodium 146 meq/L (136-145)
[2018-08-19 17:39] LABS: Alkaline Phosphatase 47 U/L (45-117); Total Protein 5.9 g/dL (6.4-8.2)
[2018-08-20] MEDS: Albumin Human 25% Inj 100 ML IV.SIG SCH ×5 (00:40→23:54)
[2018-08-20 05:55] LABS: Hematocrit 27.7 % (35.0-46.0); Mean Corpuscular HGB Conc 32.6 % (32.0-36.0); Mean Corpuscular Volume 73.7 fL (80.0-100.0); Mean Platelet Volume 10.9 fL (7.0-11.0); Platelet Count 140 th/mm3 (150-450); Red Blood Count 3.75 mil/mm3 (4.00-5.30); Red Cell Distribution Width 18.8 % (11.6-17.2); White Blood Count 8.6 th/mm3 (4.0-11.0)
[2018-08-20] MEDS: Bumetanide Inj 25 MG/100 ML BAG IV.CONT SCH ×2 (06:08→17:04)
[2018-08-20] MEDS: Chlorhexidine Gluconate 2% 1 Pack (2 Cloths) TOPICAL SCH (06:09)
[2018-08-20 06:28] LABS: Alanine Aminotransferase 24 U/L (10-53); Albumin 4.2 g/dL (3.4-5.0); Alkaline Phosphatase 46 U/L (45-117); Anion Gap 16 meq/L (5-15); Aspartate Aminotransferase 30 U/L (15-37); Blood Urea Nitrogen 78 mg/dL (7-18); Calcium 9.3 mg/dL (8.5-10.1); Carbon Dioxide 27.2 meq/L (21.0-32.0); Chloride 101 meq/L (98-107); Glomerular Filtration Rate 18 mL/min (>89); Glucose,Random 101 mg/dL (74-106); Potassium 3.6 meq/L (3.5-5.1); Sodium 144 meq/L (136-145); Total Protein 6.2 g/dL (6.4-8.2)
[2018-08-20] MEDS: Midazolam 100 MG/100 ML Inj 100 MG/100 ML BAG IV.CONT PRN (07:50)
[2018-08-20] MEDS: Sodium Bicarbonate 650 MG Tablet PO SCH ×3 (08:23→17:01)
[2018-08-20 09:00] LABS: INR 2.3 Ratio; Prothrombin Time 23.1 sec (9.8-11.6)
--- NOTE | 2018-08-20 10:02 | P.CONCA ---
History of Present Illness Service: Cardiology Consult date: 08/20/18 Requesting Physician: Irene Nino Reason for Consult: CHF Primary Care Provider: Melissa Monreal MD, R3 Chief Complaint: Pneumonia hyotension History of Present Illness: 67-year-old female patient of Dr. tapia with a significant past cardiac history of cardiomyopathy with an EF of 20%, CHF, moderate mitral regurg, chronic kidney disease followed by Dr. López, mild to moderate pulmonary hypertension, CVA, pulmonary embolus, and ventricular tachycardia with a [employer] ICD in place. Patient presented to the emergency room a few days ago with increasing weakness edema and shortness of breath, with cough and frothy blood-tinged sputum. Patient was initially treated for community-acquired pneumonia. On August 17 patient developed PEA cardiac arrest. She has worsening creatinine, continues on Bumex drip, diuresing well. Patient does have a metabolic encephalopathy secondary to sepsis however anoxic brain injury cannot be ruled out. CT head was negative for any acute findings, no new CVA at this time. Recent chest x-ray showed a large right pleural effusion, patient had chest tube placed this a.m. 2D echo shows EF less than 20 severe MR and TR, severely dilated right and left ventricle with severe biventricular dysfunction. Troponins mildly elevated most likely secondary to demand ischemia. Patient was started on milrinone however that was discontinued due to an increase in cardiac irritability. Review of Systems unobtainable due to mental condition PMFSH - History History Provided By: Patient - Medical History Medical History: Medical History (Last Updated 08/20/18 @ 15:17 by Kim Brooks) Cardiac defibrillator in place Bronchitis CHF (congestive heart failure) CKD (chronic kidney disease), stage III CVA (cerebral vascular accident) Coronary artery disease Fibromyalgia Hypertension Infection Myocardial infarction - Family History Family History: Family History (Last Reviewed 08/15/18 @ 14:18 by Irene Nino MD) Father CAD (coronary artery disease) Myocardial infarction Brother CAD (coronary artery disease) Myocardial infarction Other Malignant neoplasm - Tobacco History Second Hand Smoke Exposure: No Tobacco Use In Past 30 Days: No Smoking Status: Never smoker - Alcohol History How Often Do You Have a Drink Containing Alcohol: Never - Substance Use History Substance History: No History of Abuse - Travel History Recent Travel in the [facility] Within the Last 8 Weeks: No Recent Travel Out of the Country Within the Last 8 Weeks: No - Immunization History Tetanus Immunization: Unsure Medications and Allergies Allergies Allergy/AdvReac Type Severity Reaction Status Date / Time iodine Allergy Severe sneezing, Verified 08/15/18 08:37 chest tightness potassium iodide Allergy Severe sneezing, Verified 08/15/18 08:37 chest tightness povidone-iodine Allergy Severe sneezing, Verified 08/15/18 08:37 chest tightness sodium iodide Allergy Severe sneezing, Verified 08/15/18 08:37 chest tightness sodium iodide Allergy Severe sneezing, Verified 08/15/18 08:37 chest tightness sulfamethoxazole Allergy Intermediate abdominal Verified 08/15/18 08:37 pain trimethoprim Allergy Intermediate abdominal Verified 08/15/18 08:37 pain hydralazine Allergy Unknown Edema Verified 08/15/18 08:37 Statins Allergy Intermediate Hives Uncoded 08/15/18 08:37 Home Medications Medication Instructions Recorded Confirmed Type bumetanide 2 mg PO DAILY 05/21/18 08/15/18 History carvedilol 25 mg PO BID 05/21/18 08/15/18 History potassium chloride 20 meq PO DAILY 05/21/18 08/15/18 History spironolactone 50 mg PO DAILY 05/21/18 08/15/18 History warfarin 2 mg PO DAILY 08/15/18 08/15/18 History Active Medications: Active Medications Acetaminophen (Tylenol) 650 mg PO Q4H PRN PRN Reason: Temp > 100.4 Al Hydroxide/Mg Hydroxide (Milk Of Magnesia Liq) 30 ml PO Q12H PRN PRN Reason: Mild Constipation Bisacodyl (Dulcolax Supp) 10 mg RECTAL DAILY PRN PRN Reason: SEVERE CONSITIPATION Chlorhexidine Gluconate (Chlorhexidine 2% Cloth) 3 pack TOPICAL DAILY@0400 [facility] Stop: 08/21/18 03:59 Last Admin: 08/20/18 06:09 Dose: 3 pack Chlorhexidine Gluconate (Chlorhexidine 2% Cloth) 3 pack TOPICAL DAILY@0400 PRN PRN Reason: Extra cloth needed Stop: 08/21/18 03:59 Azithromycin 500 mg/ Sodium (Chloride) 250 mls @ 250 mls/hr IV.SIG Q24H [facility] Last Infusion: 08/19/18 14:03 Dose: Infused Metronidazole/Sodium Chloride (Flagyl 500 Mg Inj) 100 mls @ 100 mls/hr IV.SIG Q8H [facility] Last Admin: 08/20/18 08:22 Dose: 100 mls/hr Norepinephrine Bitartrate (Levophed-Dextrose 4 Mg/250 Ml Drip) 4 mg in 250 mls @ 7.5 mls/hr IV.SIG TITRATE PRN; Protocol PRN Reason: Per Protocol Last Titration: 08/20/18 05:33 Dose: 0 mcg/min, 0 mls/hr Albumin Human (Flexbumin 25% Inj) 100 mls @ 60 mls/hr IV.SIG Q6HR [facility] Last Infusion: 08/20/18 08:23 Dose: Infused Cefepime HCl 2,000 mg/ Sodium (Chloride) 100 mls @ 200 mls/hr IV.SIG Q24H [facility] Last Admin: 08/20/18 08:22 Dose: 100 mls/hr Epinephrine HCl 2 mg/ Dextrose 250 mls @ 22.5 mls/hr IV.CONT TITRATE PRN; Protocol PRN Reason: Per Protocol Last Titration: 08/17/18 06:30 Dose: 0 mcg/min, 0 mls/hr Propofol (Diprivan 1000 Mg/100 Ml Inj) 1,000 mg in 100 mls @ 2.565 mls/hr IV.CONT TITRATE PRN; Protocol PRN Reason: Per Protocol Last Titration: 08/18/18 14:52 Dose: Infused Diltiazem HCl 125 mg/ Sodium (Chloride) 125 mls @ 5 mls/hr IV.CONT TITRATE PRN ; Protocol PRN Reason: Per Protocol Milrinone Lactate 20 mg/ (Sodium Chloride) 100 mls @ 0.89 mls/hr IV.CONT .Q24H [facility]; Protocol Last Admin: 08/19/18 17:02 Dose: Not Given Midazolam HCl (Versed Inj) 100 mg in 100 mls @ 2 mls/hr IV.CONT TITRATE PRN; Protocol PRN Reason: See protocol Last Admin: 08/20/18 07:50 Dose: 6 mg/hr, 6 mls/hr Bumetanide (Bumex Inj) 25 mg in 100 mls @ 8 mls/hr IV.CONT .[id number] [facility] Last Admin: 08/20/18 06:08 Dose: 2 mg/hr, 8 mls/hr Lactulose (Lactulose Liq) 30 ml PO DAILY PRN PRN Reason: SEVERE CONSITIPATION Ondansetron HCl (Zofran Inj) 4 mg IV.PUSH Q6H PRN PRN Reason: NAUSEA OR VOMITING Last Admin: 08/16/18 14:05 Dose: 4 mg Ondansetron HCl (Zofran Odt) 4 mg PO Q6H PRN PRN Reason: NAUSEA OR VOMITING Potassium Chloride (K-Dur) 20 meq PO DAILY [facility] Last Admin: 08/20/18 08:22 Dose: 20 meq Promethazine HCl (Phenergan) 25 mg PO Q6H PRN PRN Reason: NAUSEA OR VOMITING Promethazine HCl (Phenergan Supp) 25 mg RECTAL Q6H PRN PRN Reason: NAUSEA OR VOMITING Senna/Docusate Sodium (Aleyda-Colace) 1 tab PO BID [facility] Last Admin: 08/19/18 20:55 Dose: 1 tab Sennosides (Senokot) 17.2 mg PO Q12H PRN PRN Reason: Moderate Constipation Sodium Bicarbonate (Sodium Bicarbonate) 650 mg PO TID [facility] Last Admin: 08/20/18 08:23 Dose: 650 mg Sodium Chloride (Ns Flush) 2 ml IV.FLUSH BID [facility] Last Admin: 08/20/18 08:23 Dose: 2 ml Sodium Chloride (Ns Flush) 2 ml IV.FLUSH UNSCH PRN PRN Reason: FLUSH AFTER USING IV ACCESS Terbutaline Sulfate (Brethine Inj) 1 mg SQ UNSCH PRN PRN Reason: For Extravasation Exam Vital signs: Vital Signs 08/19/18 10:00 08/19/18 10:01 08/19/18 11:00 Temperature Pulse Rate 110 H 110 H 108 H Respiratory Rate Blood Pressure 109/73 Pulse Oximetry 100 100 100 08/19/18 11:46 08/19/18 12:00 08/19/18 13:00 Temperature Pulse Rate 106 H 101 H Respiratory Rate 26 H Blood Pressure 103/84 Pulse Oximetry 100 99 08/19/18 14:00 08/19/18 14:01 08/19/18 15:00 Temperature Pulse Rate 110 H 110 H 103 H Respiratory Rate Blood Pressure 118/81 Pulse Oximetry 100 100 100 08/19/18 15:24 08/19/18 16:00 08/19/18 17:00 Temperature Pulse Rate 108 H 104 H Respiratory Rate 16 Blood Pressure Pulse Oximetry 100 100 100 08/19/18 17:21 08/19/18 18:00 08/19/18 19:00 Temperature Pulse Rate 109 H 122 H 110 H Respiratory Rate Blood Pressure 126/92 H 136/104 H Pulse Oximetry 100 100 100 08/19/18 20:00 08/19/18 21:00 08/19/18 21:39 Temperature Pulse Rate 120 H 107 H Respiratory Rate 16 Blood Pressure 121/95 H Pulse Oximetry 100 100 99 08/19/18 22:00 08/19/18 22:01 08/19/18 23:00 Temperature Pulse Rate 111 H 111 H 111 H Respiratory Rate Blood Pressure 151/88 H Pulse Oximetry 99 99 99 08/20/18 00:00 08/20/18 00:22 08/20/18 01:00 Temperature Pulse Rate 110 H 108 H Respiratory Rate 16 Blood Pressure 136/87 Pulse Oximetry 99 99 99 08/20/18 02:00 08/20/18 03:00 08/20/18 04:00 Temperature Pulse Rate 106 H 103 H 101 H Respiratory Rate Blood Pressure 114/86 106/75 Pulse Oximetry 99 99 98 08/20/18 04:15 08/20/18 05:00 08/20/18 06:00 Temperature Pulse Rate 103 H 101 H Respiratory Rate 17 Blood Pressure 111/81 Pulse Oximetry 9 L 99 99 08/20/18 07:00 08/20/18 07:52 08/20/18 08:00 Temperature 98.6 F Pulse Rate 100 H 100 H Respiratory Rate 16 Blood Pressure 117/78 Pulse Oximetry 99 99 99 08/20/18 09:00 Temperature Pulse Rate 96 H Respiratory Rate Blood Pressure Pulse Oximetry 100 Intake & Output 08/19/18 08/20/18 08/20/18 18:59 06:59 18:59 Intake Total 1300 / 1300 650 / 650 200 / 200 Output Total 850 / 850 800 / 800 Balance 450 / 450 -150 / -150 200 / 200 Weight 83.5 kg Intake: IV 1300 / 1300 650 / 650 200 / 200 Bumex Inj 25 mg In 100 ml @ 2 100 / 100 100 / 100 MG/HR 8 mls/hr IV.CONT .[id number] [facility] Rx#:[id number] Versed Inj 100 mg In 100 ml @ 2 100 / 100 100 / 100 MG/HR 2 mls/hr IV.CONT TITRATE PRN Rx#:[id number] Flexbumin 25% Inj 100 ML @ 60 200 / 200 200 / 200 100 / 100 mls/hr IV.SIG Q6HR [facility] Rx#: [id number] Azithromycin Inj 500 MG In NS 250 / 250 Inj 250 ML @ 250 mls/hr IV.SIG Q24H [facility] Rx#:[id number] Maxipime Inj 2,000 MG In NS Inj 100 / 100 100 ML @ 200 mls/hr IV.SIG Q24H [facility] Rx#:[id number] Levophed-Dextrose 4 mg/250 ml 250 / 250 250 / 250 Drip 4 mg In 250 ml @ 2 MCG/MIN 7.5 mls/hr IV.SIG TITRATE PRN Rx#:[id number] KCl 40 mEq Premix Inj 40 meq In 100 / 100 100 ml @ 25 mls/hr IV.SIG ONCE ONE Rx#:[id number] Flagyl 500 MG Inj 100 ML @ 100 200 / 200 100 / 100 mls/hr IV.SIG Q8H [facility] Rx#: [id number] Output: Urine Amount (Catheter) 850 / 850 800 / 800 Indwelling Urethral Catheter 850 / 850 800 / 800 Other: Date of Last Bowel Movement 08/16/18 08/16/18 - Constitutional mild distress Comments: sedated and intubated. ill appearing female. - Routine HEENT Exam Head: Present: normocephalic ENT: Present: mucous membranes moist - Routine Neck Exam Present: supple - Routine Cardiovascular Exam Present: RRR Comments: scar left and right upper chest. ICD now in right upper chest. - Routine Abdominal Exam Present: soft - Routine Skin Exam Present: intact - Routine Neurological Exam sedated and intubated. Results 08/20/18 05:18 08/20/18 05:18 Cardiac Enzymes 08/18/18 08/19/18 08/19/18 Range/Units 14:00 03:40 17:00 AST 52 H 43 H 35 (15-37) U/L 08/20/18 Range/Units 05:18 AST 30 (15-37) U/L Coagulation 08/18/18 08/20/18 Range/Units 12:30 08:46 PT 23.8 H 23.1 H (9.8-11.6) sec CBC 08/19/18 08/20/18 Range/Units 03:40 05:18 WBC 7.7 8.6 (4.0-11.0) th/mm3 RBC 3.59 L 3.75 L (4.00-5.30) mil/mm3 Hgb 8.7 L 9.0 L (11.6-15.3) gm/dL Hct 26.4 L 27.7 L (35.0-46.0) % Plt Count 136 L 140 L (150-450) th/mm3 Comprehensive Metabolic Panel 08/18/18 08/19/18 08/19/18 Range/Units 14:00 03:40 17:00 Sodium 142 143 146 H (136-145) meq/L Potassium 3.3 L 3.1 L 3.5 (3.5-5.1) meq/L Chloride 99 100 105 (98-107) meq/L Carbon Dioxide 31.5 30.9 24.7 (21.0-32.0) meq/L BUN 78 H 74 H 70 H (7-18) mg/dL Creatinine 3.07 H 2.98 H 2.92 H (0.50-1.00) mg/dL Calcium 8.7 8.7 8.1 L (8.5-10.1) mg/dL AST 52 H 43 H 35 (15-37) U/L ALT 26 28 24 (10-53) U/L Alkaline Phosphatase 52 49 47 (45-117) U/L Total Protein 6.0 L 5.8 L 5.9 L (6.4-8.2) g/dL Albumin 3.7 3.6 3.8 (3.4-5.0) g/dL 08/20/18 Range/Units 05:18 Sodium 144 (136-145) meq/L Potassium 3.6 (3.5-5.1) meq/L Chloride 101 (98-107) meq/L Carbon Dioxide 27.2 (21.0-32.0) meq/L BUN 78 H (7-18) mg/dL Creatinine 3.19 H (0.50-1.00) mg/dL Calcium 9.3 D (8.5-10.1) mg/dL AST 30 (15-37) U/L ALT 24 (10-53) U/L Alkaline Phosphatase 46 (45-117) U/L Total Protein 6.2 L (6.4-8.2) g/dL Albumin 4.2 (3.4-5.0) g/dL Intake and Output 08/19/18 08/20/18 08/20/18 22:59 06:59 14:59 Intake Total 900 / 900 300 / 300 200 / 200 Output Total 850 / 850 800 / 800 Balance 50 / 50 -500 / -500 200 / 200 Intake: IV 900 / 900 300 / 300 200 / 200 Bumex Inj 25 mg In 100 ml @ 2 100 / 100 100 / 100 MG/HR 8 mls/hr IV.CONT .[id number] [facility] Rx#:[id number] Versed Inj 100 mg In 100 ml @ 2 100 / 100 100 / 100 MG/HR 2 mls/hr IV.CONT TITRATE PRN Rx#:[id number] Flexbumin 25% Inj 100 ML @ 60 100 / 100 100 / 100 100 / 100 mls/hr IV.SIG Q6HR [facility] Rx#: [id number] Levophed-Dextrose 4 mg/250 ml 500 / 500 Drip 4 mg In 250 ml @ 2 MCG/MIN 7.5 mls/hr IV.SIG TITRATE PRN Rx#:[id number] Flagyl 500 MG Inj 100 ML @ 100 100 / 100 100 / 100 mls/hr IV.SIG Q8H [facility] Rx#: [id number] Output: Urine Amount (Catheter) 850 / 850 800 / 800 Indwelling Urethral Catheter 850 / 850 800 / 800 Other: Date of Last Bowel Movement 08/16/18 08/16/18 Weight 83.5 kg - Imaging and Cardiology Imaging: Impressions Chest X-Ray 08/19/18 06:00 CONCLUSION: Suspected bilateral effusions which appear worse. Increased density seen throughout the lungs likely related to underlying diffuse processes such as edema. Cardiomegaly. Assessment and Plan - Plan Assessment PEA cardiac arrest Elevated troponin Cardiomyopathy Congestive heart failure Pleural effusions Sepsis Metabolic encephalopathy History of CVA History of pulmonary embolus Plan Patient is critically ill. We will continue with medical management at this time. [id number] has been notified and will check ICD. INR was supratherapeutic when patient came in, Coumadin is currently on hold. Large right pleural effusion, status post chest tube placement this a.m. Prognosis is poor. Palliative care has been consulted. The patient was seen and evaluated by Dr. Calixto who participated in care management and decision making The exam, history, and the medical decision-making described in the above note were completed with the assistance of the mid-level provider. I reviewed and agree with the findings presented. I attest that I had a [id number] encounter with the patient on the same day, and personally performed and documented my assessment and findings in the medical record. Atrial lead not functioning will change to VVI 40) discussed with [employer] shipping services sales representative and done. Discussed critical state with . Pt had PEA arrest not VT or VF. Poor prognosis. Code Status: Full Code Discussed Condition With: Dr. Calixto and RN
--- NOTE | 2018-08-20 10:41 | P.CONPAL ---
Consult Service: Palliative Care Requesting Physician: Irene Nino Reason for Consult: a. To assist with evaluation and management of symptoms including: Shortness of breath, at risk for pain, debility b. To assist medical decision maker(s) with: better understanding of current medical conditions; weighing benefits/burdens of medical treatment options; making medical treatment decisions. Primary Care Provider: Melissa Monreal MD, History of Present Illness History of Present Illness: Mrs. Funes is a 67-year-old old with a medical history significant for congestive heart failure with an ejection fraction less than 20%, coronary artery disease, ventricular tachycardia with a [employer] ICD, pulmonary embolism , chronic kidney disease stage III, hypertension, cardiovascular accident with residual left-sided weakness in 2017. Patient presented to the emergency room on 08/15/2018 for further evaluation of progressive weakness, shortness of breath, lower extremity edema and productive cough. Patient follows with technology project manager Dr. Mae outpatient. ER course: * Vital signs: Temperature 97.9F, respirations 20, BP 122/84, O2 saturation 98% * EKG showed supraventricular tachycardia possible anterior myocardial infarction, with heart rate in the 170. * Cardizem 25 mg IV push administered and patient converted to normal sinus rhythm. * Laboratory workup revealed WBC 5.5, hemoglobin 11.9, hematocrit 36.7, platelet count 358, PT 52.6, INR 5.2, APTT 41.1, sodium 138, potassium 4.3, BUN/ creatinine 80/2.72, random glucose 79, calcium 8.6, total bilirubin 2.8, AST 27 , ALT 19, troponin 0 0.10, BNP 40 211, total protein 6.9, albumin 3.0, lactic acid 8.1 * ABG results showed pH 7.34, PCO2 24, PO2 164, HCO3 13, base excess -12.1, on O2 4 L nasal cannula * Chest x-ray showed consolidation involving right mid lung. Cardiomegaly. * Urinalysis positive for small leukocyte esterase and negative for nitrates. Culture not indicated. * Blood cultures collected showing no growth in 4 days * Rocephin and azithromycin for community-acquired pneumonia administered. * Furosemide 20 mg IV push administered with not much improvement in urine output. * Patient was hypotensive SBP in the 70s, 1.5 L IV fluid bolus administered. * Patient [facility] and [facility]. Critical care physician Dr. Nino consulted to evaluate and manage patient in septic shock. Patient was started on norepinephrine. Nephrology Dr. James consulted on 08/15/18 for evaluation and management of patient with acute on chronic renal failure, recommended administering albumin and checking urine creatinine and urine sodium and also noted that patient is at risk of going on hemodialysis if urine output continues to decrease. Nephrology opines that patient will most likely not do well with hemodialysis given his cardiomyopathy with an ejection fraction less than 20%. On 08/16/18 patient's clinical course complicated with pulseless electrical activity (PEA) cardiac arrest and ACLS protocol was followed with return of spontaneous circulation and 9 minutes. Patient required no epinephrine and epinephrine infusion. Patient underwent bedside thoracentesis with removal of 950 mL's fluid on 08/16/18. 2D echocardiogram on 08/17/18 revealed severely reduced left ventricular systolic function and an estimated ejection fraction less than 20%, severe mitral valve regurgitation, severe tricuspid regurgitation and a large left-sided pleural effusion. Head CT on 08/17/18 revealed no acute intracranial abnormality and an old right frontal lobe infarct. Chest x-ray on 08/19/18 showed worsening suspected bilateral effusions and increasing density throughout the lungs and cardiomegaly. Laboratory workup on revealing sodium 144, potassium 3.6, BUN/creatinine 78/3.19, calcium 9.3, total protein 6.2, albumin 4.2. Patient underwent thoracostomy and placement of a right pigtail chest tube for a right-sided large pleural effusion. Cardiology consulted on 08/20/18 for evaluation and management of a patient with congestive heart failure and an estimated ejection fraction less than 20%. Patient's hospital course complicated with PEA cardiac arrest, shortness of breath, worsening renal function despite aggressive diuresis. Patient seen and examined in her room in the presence of a bedside RN. Patient currently undergoing AICD interrogation by staff from [employer]. Per [employer] report atrial lead is dislodged. Patient is intubated, sedated and on mechanical ventilation. Patient is currently on midazolam infusion and a Bumex infusion. Meeting with patient spouse Rey Funes Sr partially at bedside and in conference room. Introduced palliative care and his role in symptom management and establishment of goals of medical treatment. Obtained psychosocial, past medical history and events leading to this hospitalization. According to patient spouse, patient has not been feeling well for the past few weeks. According to patient spouse, patient has never completed advanced directives. Provided a medical status update to spouse. Discussed complications that patient has been facing during this hospitalization and multiple organs that are failing. Discussed aggressive treatment that is being provided by the medical team without significant progress. Discussed quality of life. Provided anticipatory guidance in regards to expectations if patient continues to have complications as well as what to expect if she improves medically. According to patient`s spouse, patient has been referred to a heart transplant specialist in [place] by a technology project manager, and after initial visit, she decided that she did not want to proceed with having a heart transplant. Unfortunately patient`s spouse does not know the reason why she declined to have a heart transplant. Readdressed CODE STATUS. Discussed CPR benefits, limitations and complications. Patient`s spouse tearfully stated that he would want patient resuscitated if need be "one more time" with the understanding of his 's failing heart, worsening renal function, and pulmonary function. He appears to be open for further discussions regarding CODE STATUS. Palliative care contact information provided. . Function/Cognitive Trajectory: Patient lives at home with her spouse. According to the spouse, patient is independent of all ADLs. Prior to this hospitalization patient was able to verbalize her needs. Patient has been hospitalized 7 times in the past year mainly for congestive heart failure. Patient's AICD was implanted on 05/21/18 for ventricular fibrillation. According to patient spouse, patient has been referred to heart transplant and after meeting with a physician in [place] regarding heart transplant patient decided that she did not want to have a heart transplant. . Review of Systems Constitutional: Reports weakness Eyes: Denies bulging eyes Ears, Nose, Mouth, and Throat: Denies nasal discharge Cardiovascular: Reports foot swelling, Reports leg swelling, Reports shortness of breath, Reports shortness of breath with activity, Reports shortness of breath when lying down Respiratory: Reports cough, Reports other (Frothy blood-tinged sputum per spouse ) Gastrointestinal: Denies vomiting Genitourinary: Denies urinary incontinence Skin/Breast: Denies skin ulcer, Denies sores Neurologic: Denies frequent falls Psychiatric: Denies anxiety Review of systems obtained from EMR, family (spouse), and clinical observation. . [facility] - History History Provided By: Family Member, Medical Record - Medical History Medical History: Medical History (Last Updated 08/20/18 @ 15:17 by Kim Brooks) Cardiac defibrillator in place Bronchitis CHF (congestive heart failure) CKD (chronic kidney disease), stage III CVA (cerebral vascular accident) Coronary artery disease Fibromyalgia Hypertension Infection Myocardial infarction - Surgical History Surgical History: Surgical History (Last Updated 08/20/18 @ 15:17 by Kim Brooks) History of placement of internal cardiac defibrillator (Resolved) - Family History Family History: Family History (Last Reviewed 08/15/18 @ 14:18 by Irene Nino MD) Father CAD (coronary artery disease) Myocardial infarction Brother CAD (coronary artery disease) Myocardial infarction Other Malignant neoplasm - Social History I have reviewed the patient's Social History: Yes - Tobacco History Second Hand Smoke Exposure: No Tobacco Use In Past 30 Days: No Smoking Status: Never smoker - Alcohol History How Often Do You Have a Drink Containing Alcohol: Never - Substance Use History Substance History: No History of Abuse - Travel History Recent Travel in the [place] Within the Last 8 Weeks: No Recent Travel Out of the Country Within the Last 8 Weeks: No - Immunization History Tetanus Immunization: Unsure Medications and Allergies Active Medications: Active Medications Acetaminophen (Tylenol) 650 mg PO Q4H PRN PRN Reason: Temp > 100.4 Al Hydroxide/Mg Hydroxide (Milk Of Magnesia Liq) 30 ml PO Q12H PRN PRN Reason: Mild Constipation Bisacodyl (Dulcolax Supp) 10 mg RECTAL DAILY PRN PRN Reason: SEVERE CONSITIPATION Chlorhexidine Gluconate (Chlorhexidine 2% Cloth) 3 pack TOPICAL DAILY@0400 [facility] Stop: 08/21/18 03:59 Last Admin: 08/20/18 06:09 Dose: 3 pack Chlorhexidine Gluconate (Chlorhexidine 2% Cloth) 3 pack TOPICAL DAILY@0400 PRN PRN Reason: Extra cloth needed Stop: 08/21/18 03:59 Azithromycin 500 mg/ Sodium (Chloride) 250 mls @ 250 mls/hr IV.SIG Q24H [facility] Last Infusion: 08/19/18 14:03 Dose: Infused Metronidazole/Sodium Chloride (Flagyl 500 Mg Inj) 100 mls @ 100 mls/hr IV.SIG Q8H [facility] Last Admin: 08/20/18 08:22 Dose: 100 mls/hr Norepinephrine Bitartrate (Levophed-Dextrose 4 Mg/250 Ml Drip) 4 mg in 250 mls @ 7.5 mls/hr IV.SIG TITRATE PRN; Protocol PRN Reason: Per Protocol Last Titration: 08/20/18 05:33 Dose: 0 mcg/min, 0 mls/hr Albumin Human (Flexbumin 25% Inj) 100 mls @ 60 mls/hr IV.SIG Q6HR ANAHI Last Infusion: 08/20/18 08:23 Dose: Infused Cefepime HCl 2,000 mg/ Sodium (Chloride) 100 mls @ 200 mls/hr IV.SIG Q24H [facility] Last Admin: 08/20/18 08:22 Dose: 100 mls/hr Epinephrine HCl 2 mg/ Dextrose 250 mls @ 22.5 mls/hr IV.CONT TITRATE PRN; Protocol PRN Reason: Per Protocol Last Titration: 08/17/18 06:30 Dose: 0 mcg/min, 0 mls/hr Propofol (Diprivan 1000 Mg/100 Ml Inj) 1,000 mg in 100 mls @ 2.565 mls/hr IV.CONT TITRATE PRN; Protocol PRN Reason: Per Protocol Last Titration: 08/18/18 14:52 Dose: Infused Diltiazem HCl 125 mg/ Sodium (Chloride) 125 mls @ 5 mls/hr IV.CONT TITRATE PRN ; Protocol PRN Reason: Per Protocol Milrinone Lactate 20 mg/ (Sodium Chloride) 100 mls @ 0.89 mls/hr IV.CONT .Q24H ANAHI; Protocol Last Admin: 08/19/18 17:02 Dose: Not Given Midazolam HCl (Versed Inj) 100 mg in 100 mls @ 2 mls/hr IV.CONT TITRATE PRN; Protocol PRN Reason: See protocol Last Admin: 08/20/18 07:50 Dose: 6 mg/hr, 6 mls/hr Bumetanide (Bumex Inj) 25 mg in 100 mls @ 8 mls/hr IV.CONT .[id number] [facility] Last Admin: 08/20/18 06:08 Dose: 2 mg/hr, 8 mls/hr Lactulose (Lactulose Liq) 30 ml PO DAILY PRN PRN Reason: SEVERE CONSITIPATION Ondansetron HCl (Zofran Inj) 4 mg IV.PUSH Q6H PRN PRN Reason: NAUSEA OR VOMITING Last Admin: 08/16/18 14:05 Dose: 4 mg Ondansetron HCl (Zofran Odt) 4 mg PO Q6H PRN PRN Reason: NAUSEA OR VOMITING Potassium Chloride (K-Dur) 20 meq PO DAILY [facility] Last Admin: 08/20/18 08:22 Dose: 20 meq Promethazine HCl (Phenergan) 25 mg PO Q6H PRN PRN Reason: NAUSEA OR VOMITING Promethazine HCl (Phenergan Supp) 25 mg RECTAL Q6H PRN PRN Reason: NAUSEA OR VOMITING Senna/Docusate Sodium (Aleyda-Colace) 1 tab PO BID [facility] Last Admin: 08/19/18 20:55 Dose: 1 tab Sennosides (Senokot) 17.2 mg PO Q12H PRN PRN Reason: Moderate Constipation Sodium Bicarbonate (Sodium Bicarbonate) 650 mg PO TID [facility] Last Admin: 08/20/18 08:23 Dose: 650 mg Sodium Chloride (Ns Flush) 2 ml IV.FLUSH BID [facility] Last Admin: 08/20/18 08:23 Dose: 2 ml Sodium Chloride (Ns Flush) 2 ml IV.FLUSH UNSCH PRN PRN Reason: FLUSH AFTER USING IV ACCESS Terbutaline Sulfate (Brethine Inj) 1 mg SQ UNSCH PRN PRN Reason: For Extravasation Allergies Allergy/AdvReac Type Severity Reaction Status Date / Time iodine Allergy Severe sneezing, Verified 08/15/18 08:37 chest tightness potassium iodide Allergy Severe sneezing, Verified 08/15/18 08:37 chest tightness povidone-iodine Allergy Severe sneezing, Verified 08/15/18 08:37 chest tightness sodium iodide Allergy Severe sneezing, Verified 08/15/18 08:37 chest tightness sodium iodide Allergy Severe sneezing, Verified 08/15/18 08:37 chest tightness sulfamethoxazole Allergy Intermediate abdominal Verified 08/15/18 08:37 pain trimethoprim Allergy Intermediate abdominal Verified 08/15/18 08:37 pain hydralazine Allergy Unknown Edema Verified 08/15/18 08:37 Statins Allergy Intermediate Hives Uncoded 08/15/18 08:37 Home Medications Medication Instructions Recorded Confirmed Type bumetanide 2 mg PO DAILY 05/21/18 08/15/18 History carvedilol 25 mg PO BID 05/21/18 08/15/18 History potassium chloride 20 meq PO DAILY 05/21/18 08/15/18 History spironolactone 50 mg PO DAILY 05/21/18 08/15/18 History warfarin 2 mg PO DAILY 08/15/18 08/15/18 History Advance Directives Living Will: No Healthcare Surrogate: No Health Care Surrogate Name and Number: HCP: Rey Willis [phone] Power of Under Sheriff: No Documented care wishes: Never completed advanced directives. . Family/friends goals: Patient spouse is the healthcare proxy, would like everything done. . Physical Exam Vital Signs: Vital Signs - 24 hr 08/19/18 10:00 08/19/18 10:01 08/19/18 11:00 Temperature Pulse Rate 110 H 110 H 108 H Respiratory Rate Blood Pressure 109/73 Pulse Oximetry 100 100 100 08/19/18 11:46 08/19/18 12:00 08/19/18 13:00 Temperature Pulse Rate 106 H 101 H Respiratory Rate 26 H Blood Pressure 103/84 Pulse Oximetry 100 99 08/19/18 14:00 08/19/18 14:01 08/19/18 15:00 Temperature Pulse Rate 110 H 110 H 103 H Respiratory Rate Blood Pressure 118/81 Pulse Oximetry 100 100 100 08/19/18 15:24 08/19/18 16:00 08/19/18 17:00 Temperature Pulse Rate 108 H 104 H Respiratory Rate 16 Blood Pressure Pulse Oximetry 100 100 100 08/19/18 17:21 08/19/18 18:00 08/19/18 19:00 Temperature Pulse Rate 109 H 122 H 110 H Respiratory Rate Blood Pressure 126/92 H 136/104 H Pulse Oximetry 100 100 100 08/19/18 20:00 08/19/18 21:00 08/19/18 21:39 Temperature Pulse Rate 120 H 107 H Respiratory Rate 16 Blood Pressure 121/95 H Pulse Oximetry 100 100 99 08/19/18 22:00 08/19/18 22:01 08/19/18 23:00 Temperature Pulse Rate 111 H 111 H 111 H Respiratory Rate Blood Pressure 151/88 H Pulse Oximetry 99 99 99 08/20/18 00:00 08/20/18 00:22 08/20/18 01:00 Temperature Pulse Rate 110 H 108 H Respiratory Rate 16 Blood Pressure 136/87 Pulse Oximetry 99 99 99 08/20/18 02:00 08/20/18 03:00 08/20/18 04:00 Temperature Pulse Rate 106 H 103 H 101 H Respiratory Rate Blood Pressure 114/86 106/75 Pulse Oximetry 99 99 98 08/20/18 04:15 08/20/18 05:00 08/20/18 06:00 Temperature Pulse Rate 103 H 101 H Respiratory Rate 17 Blood Pressure 111/81 Pulse Oximetry 9 L 99 99 08/20/18 07:00 08/20/18 07:52 08/20/18 08:00 Temperature 98.6 F Pulse Rate 100 H 100 H Respiratory Rate 16 Blood Pressure 117/78 Pulse Oximetry 99 99 99 08/20/18 09:00 Temperature Pulse Rate 96 H Respiratory Rate Blood Pressure Pulse Oximetry 100 I&O: Intake & Output 08/18/18 08/19/18 08/20/18 08/21/18 06:59 06:59 06:59 06:59 Intake Total 3373.8 / 3373.8 1397.2 / 1397.2 1950 / 1950 200 / 200 Output Total 5875 / 5875 5300 / 5300 1650 / 1650 Balance -2501.2 / -2501.2 -3902.8 / -3902.8 300 / 300 200 / 200 Weight 96 kg 85 kg 83.5 kg Physical Exam: CONSTITUTIONAL/GENERAL: This is an adequately nourished patient, intubated and sedated in no acute distress. TUBES/LINES/DRAINS: ETT, OG tube, TLC left IJ, femoral A-line, PIV, SCDs SKIN: No jaundice, rashes, or lesions. Ecchymoses on upper extremities. Healed scar to left upper chest wall. Skin temperature appropriate. Not diaphoretic. HEAD: Atraumatic. Normocephalic. EYES: Eyes closed. Pupils 2 mm, slight reaction to light. No scleral icterus. No injection or drainage. Fundi not examined. ENT: Hearing grossly normal. Nose without bleeding or purulent drainage. Endotracheally intubated. NECK: Trachea midline. Supple, nontender. CARDIOVASCULAR: Regular rate and rhythm without murmurs, gallops, or rubs. No JVD. Peripheral pulses symmetric. AICD to right upper chest wall. RESPIRATORY/CHEST: Symmetric, unlabored respirations. Clear to auscultation. Crackles to RML. No wheezes,or rhonchi. GASTROINTESTINAL: Abdomen soft, non-tender, nondistended. No guarding. Bowel sounds present. GENITOURINARY: Without palpable bladder distension. Bradley catheter in place. MUSCULOSKELETAL: Extremities without clubbing, cyanosis, or edema. No joint tenderness or effusion noted. No calf tenderness. No mottling or clubbing. LYMPHATICS: Did not assess NEUROLOGICAL: Intubated, sedated. PSYCHIATRIC: Unable to assess. Currently sedated. . Diagnostic Tests Laboratory: Laboratory Results - last 72 hr 08/17/18 08/17/18 08/17/18 10:55 15:09 15:09 WBC RBC Hgb Hct MCV MCH MCHC RDW Plt Count MPV PT INR Puncture Site Patient Temperature O2 Saturation ABG pH ABG pCO2 ABG pO2 ABG HCO3 ABG O2 Content ABG Base Excess ABG Methemoglobin Hemoglobin Carboxyhemoglobin O2 Delivery Device Vent Setting Inspired O2 Critical Value Sodium 141 Potassium 3.2 L Chloride 100 Carbon Dioxide 30.1 Anion Gap 11 BUN 87 H Creatinine 3.25 H Estimated GFR 17 L Random Glucose 110 H Lactic Acid 2.1 H Calcium 8.1 L Magnesium Total Bilirubin 2.5 H AST 40 H ALT 26 Alkaline Phosphatase 56 Troponin I 0.47 H Total Protein 5.7 L Albumin 3.2 L 08/18/18 08/18/18 08/18/18 02:00 02:00 12:08 WBC 8.8 RBC 3.76 L Hgb 9.1 L Hct 27.5 L MCV 73.2 L D MCH 24.2 L MCHC 33.1 RDW 18.1 H Plt Count 168 MPV 10.3 PT INR Puncture Site Art line Patient Temperature 98.6 O2 Saturation 96 ABG pH 7.54 H* ABG pCO2 30 L ABG pO2 120 ABG HCO3 26 ABG O2 Content 13.8 ABG Base Excess 3.4 H ABG Methemoglobin 1.5 Hemoglobin 10.1 L Carboxyhemoglobin 1.4 O2 Delivery Device Ventilator Vent Setting Cpap 5/5ps Inspired O2 40 Critical Value Yes Sodium 141 Potassium 3.1 L Chloride 99 Carbon Dioxide 29.1 Anion Gap 13 BUN 84 H Creatinine 3.14 H Estimated GFR 18 L Random Glucose 77 Lactic Acid Calcium 8.4 L Magnesium 2.1 Total Bilirubin 2.6 H AST 41 H ALT 25 Alkaline Phosphatase 51 Troponin I Total Protein 5.7 L Albumin 3.5 08/18/18 08/18/18 08/19/18 12:30 14:00 03:40 WBC 7.7 RBC 3.59 L Hgb 8.7 L Hct 26.4 L MCV 73.5 L MCH 24.3 L MCHC 33.1 RDW 18.6 H Plt Count 136 L MPV 8.6 PT 23.8 H INR 2.4 Puncture Site Patient Temperature O2 Saturation ABG pH ABG pCO2 ABG pO2 ABG HCO3 ABG O2 Content ABG Base Excess ABG Methemoglobin Hemoglobin Carboxyhemoglobin O2 Delivery Device Vent Setting Inspired O2 Critical Value Sodium 142 Potassium 3.3 L Chloride 99 Carbon Dioxide 31.5 Anion Gap 12 BUN 78 H Creatinine 3.07 H Estimated GFR 18 L Random Glucose 101 Lactic Acid Calcium 8.7 Magnesium 2.0 Total Bilirubin 3.2 H AST 52 H ALT 26 Alkaline Phosphatase 52 Troponin I Total Protein 6.0 L Albumin 3.7 08/19/18 08/19/18 08/20/18 03:40 17:00 05:18 WBC 8.6 RBC 3.75 L Hgb 9.0 L Hct 27.7 L MCV 73.7 L MCH 24.0 L MCHC 32.6 RDW 18.8 H Plt Count 140 L MPV 10.9 PT INR Puncture Site Patient Temperature O2 Saturation ABG pH ABG pCO2 ABG pO2 ABG HCO3 ABG O2 Content ABG Base Excess ABG Methemoglobin Hemoglobin Carboxyhemoglobin O2 Delivery Device Vent Setting Inspired O2 Critical Value Sodium 143 146 H Potassium 3.1 L 3.5 Chloride 100 105 Carbon Dioxide 30.9 24.7 Anion Gap 12 16 H BUN 74 H 70 H Creatinine 2.98 H 2.92 H Estimated GFR 19 L 19 L Random Glucose 85 94 Lactic Acid Calcium 8.7 8.1 L Magnesium 2.0 1.9 Total Bilirubin 3.4 H 4.2 H AST 43 H 35 ALT 28 24 Alkaline Phosphatase 49 47 Troponin I Total Protein 5.8 L 5.9 L Albumin 3.6 3.8 08/20/18 08/20/18 05:18 08:46 WBC RBC Hgb Hct MCV MCH MCHC RDW Plt Count MPV PT 23.1 H INR 2.3 Puncture Site Patient Temperature O2 Saturation ABG pH ABG pCO2 ABG pO2 ABG HCO3 ABG O2 Content ABG Base Excess ABG Methemoglobin Hemoglobin Carboxyhemoglobin O2 Delivery Device Vent Setting Inspired O2 Critical Value Sodium 144 Potassium 3.6 Chloride 101 Carbon Dioxide 27.2 Anion Gap 16 H BUN 78 H Creatinine 3.19 H Estimated GFR 18 L Random Glucose 101 Lactic Acid Calcium 9.3 D Magnesium Total Bilirubin 5.3 H AST 30 ALT 24 Alkaline Phosphatase 46 Troponin I Total Protein 6.2 L Albumin 4.2 Result Diagrams: 08/21/18 03:05 08/21/18 03:05 Microbiology: Microbiology 08/15/18 12:40 Aerobic Blood Culture - Preliminary Blood - Peripheral No growth in 4 days Anaerobic Blood Culture - Preliminary No growth in 4 days 08/15/18 12:51 Aerobic Blood Culture - Preliminary Blood - Peripheral No growth in 4 days Anaerobic Blood Culture - Preliminary No growth in 4 days 08/16/18 13:20 Gram Stain - Final Fluid - Pleural fluid Body Fluid Culture - Final No growth in 72 hours (aerobically and anaerobically) 08/16/18 13:20 Fungal Smear - Final Fluid - Pleural fluid No fungal elements seen 08/16/18 13:20 Acid Fast Bacilli Smear - Final Fluid - Pleural fluid No acid fast bacilli seen Imaging: Head CT 08/17/18 00:00 CONCLUSION: 1. No acute intracranial abnormality demonstrated. 2. 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 . Chest X-Ray 08/19/18 06:00 CONCLUSION: Suspected bilateral effusions which appear worse. Increased density seen throughout the lungs likely related to underlying diffuse processes such as edema. Cardiomegaly. Procedures: 08/15/18-placement of left IJ central line 08/16/18-endotracheal intubation after PEA arrest 08/16/18-bedside thoracentesis with removal of 950 mL's of slightly cloudy, yellow colored fluid. 08/16/18-right femoral arterial line placement 08/20/18-right chest tube placement . Patient/Family Conference Present at Family Conference: Spouse- Rey Funes Sr. . Family Conference Location: Bedside, Consult Room Issues Discussed: * Palliative care role, purpose, approach * Additional medical, psychosocial, and spiritual history * Patients general health, functional status, and cognitive changes in the months leading up to the current hospitalization * Patient/family understanding of the current medical problems * Patient/family understanding of prognosis * Patients goals of care as best understood from advance directives and/or conversations and/or values * Current medical treatment options and benefits/burdens of those options * Likely scenarios comparing ongoing aggressive care with a transition to comfort measures only * Questions answered to the best of my ability * Palliative care contact information provided Assessment and Plan - Disease Oriented Problem List (1) Severe sepsis (2) Cardiogenic shock (3) Systolic heart failure (4) Cardiomyopathy (5) Pulmonary edema (6) Pneumonia (7) Lactic acidemia (8) Supratherapeutic INR (9) Hypertension - Symptom Scale (1) Shortness of breath 0-10 Scale: Unable to quantify Comment: History of congestive heart failure, chronic kidney disease and recent PEA (2) At risk for pain Comment: Patient went into PEA arrest on 08/16/18 (3) Debility 0-10 Scale: Unable to quantify Comment: Progressive. Patient has had multiple hospitalizations in the past 12 months. Pertinent Non-Medical Issues: Psychosocial: Patient is originally from [place]. She moved to [place] in 2014. Patient worked in [place] 2007. 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 Patient has been to her current for 43 years. They have 2 adult sons, Rey Hodge who lives locally and another son who lives in [place]. She has 6 grandchildren. Spiritual: Patient is Hoahaoism-open to stringing machine operator visits. Car Attendant Thomas has visited with spouse before. Legal: Never completed advanced directives. Ethical issues impacting care: None identified at this time . Important Contacts: Spouse-Rey Funes [phone] Son-Rey Funes [phone] Daughter-Tracey [phone] Prognosis: Mrs. Funes is a 67-year-old old with a medical history significant for congestive heart failure with an ejection fraction less than 20%, coronary artery disease, ventricular tachycardia with a [employer] ICD, pulmonary embolism , chronic kidney disease stage III, hypertension, cardiovascular accident with residual left-sided weakness in 2017. Patient presented to the emergency room on 08/15/2018 for further evaluation of progressive weakness, shortness of breath, lower extremity edema and productive cough. Patient's hospital course complicated with PEA cardiac arrest, worsening lung function requiring chest tube placement, and worsening renal function despite aggressive diuresis. Given multiple ongoing comorbidities, patient remains at high risk for further complications, deterioration and decline. . Code Status: Full Code Plan: PLAN: Legal decision maker: Patient is currently intubated, sedated. It is not known whether the patient will regain capacity to participate in medical decision making. She is . According to [place] statute patient's spouse Rey Funes Sr will serve as patient's healthcare proxy decision-maker. Goals: Aggressive. Lengthy discussion with patient spouse Rey Funes . Provided a medical status update to spouse. Discussed complications that patient has been facing during this hospitalization and multiple organs that are failing. Discussed aggressive treatment that is being provided by the medical team without significant progress. Discussed patients` quality of life. Provided anticipatory guidance in regards to expectations if patient continues to have complications as well as what to expect if she improves medically. According to patient spouse, patient has been referred to a heart transplant specialist in [place], and after initial visit, she decided that she did not want to proceed with having a heart transplant. Unfortunately patient` s spouse does not know the reason why she declined to have a heart transplant. Readdressed CODE STATUS. Discussed CPR benefits, limitations and complications. Patient`s spouse tearfully stated that he would want patient resuscitated if need be "one more time" with the understanding of his 's failing heart, worsening renal function, and pulmonary function. He appears to be open for further discussions regarding CODE STATUS CODE STATUS: Full code SYMPTOMS: * Shortness of breath: Patient has history of CHF, and currently has pneumonia and acute on chronic kidney failure. Intubated on 08/16/18 after PEA arrest. Patient has had thoracentesis and has recurrent pleural effusions requiring thoracotomy and placement of bilateral chest tubes. Patient is on antibiotics. * At risk for pain: Patient is currently bedbound and had PEA arrest requiring CPR on 08/16/17 and intubation. Patient has had multiple procedures done including thoracentesis, thoracotomy with chest tube placement, central line placement and arterial line placement which can all be sources of pain. Patient is currently not showing any signs of pain. * Debility. Progressive. Patient has multiple ongoing comorbidities. She has had multiple (x7) hospitalizations in the past year. Patient has been increasingly getting weak due to her failing heart. Patient will most likely continue to deteriorate given her heart condition, she will most likely be not able to effectively participate in physical therapy/rehabilitation. Palliative care will continue to follow the patient during hospital course as condition evolves, to assist patient/decision-maker with understanding of their medical conditions, weighing benefits/burdens of treatment options, for clarification of goals of treatment. Additionally will assist with any symptoms of palliative concern Appreciation Thank you for the opportunity to participate in the care of Carla Funes. Attestation Attestation: To help prompt me to consider important information that might be impacting today's encounter and assessment, information from prior notes written by myself or my colleagues may have been "brought forward" into today's note. My signature on this note, however, is an attestation that I personally performed the exam, history, and/or decision-making noted today, and, unless otherwise indicated, the interactions with patient, family, and staff as well as the review of records all occurred today. I also attest that the listed assessment and stated plan reflect my best clinical judgment today based on the combination of historical information, prior notes, and today's exam/ interactions. When time spent is documented, it refers only to time spent today by the signer, or if indicated, combined time spent today by collaborating physician/nurse practitioner.
--- NOTE | 2018-08-20 10:43 | P.PCN ---
Date of procedure: 08/20/18 Pre-op diagnosis: Large bilateral pleural effusion Post-op diagnosis: same Procedure: Procedure: Right 8Fr tube thoracostomy/pigtail chest tube CXR findings: Right-sided large pleural effusion Consent: Obtained from the patient's Intubated and sedated with Versed gtt The patient was placed in the supine position. The right arm was abducted above the head and secured. The right lateral chest was prepped and draped under sterile conditions. 1% Lidocaine was infiltrated subcutaneously. A 0.25 cm incision was made using blade at the mid-axillary line, just below the nipple line at the site marked with ultrasound. Using introducer needle pleural fluid accessed, followed by guidewire placement. The needle was removed and after dilation 8 Ukrainian pigtail catheter was placed using Seldinger technique. Initial output was approximately 950 mL of slightly cloudy yellow pleural fluid. The chest tube was connected to a Pleur-o-vac and connected to [id number] suction, initial 1+ airleak quickly disappeared. The chest tube was sutured to the skin and also stay fix was used. The patient tolerated the procedure well. Post procedure chest x-ray pending at this time Anesthesia: local Surgeon: Irene Nino Estimated blood loss (mL): 1 Pathology: none sent Condition: critical Disposition: ICU
[2018-08-20] MEDS: Azithromycin Inj 500 MG in Sodium Chlor 0.9% Inj 250 ML IV.SIG SCH (11:09)
[2018-08-20] MEDS: Milrinone Inj 20 MG in Sodium Chlor 0.9% Inj 80 ML IV.CONT SCH (11:10)
--- NOTE | 2018-08-20 11:28 | XR ---
EXAM DATE: 08/20/2018 11:22 AM EST AGE/SEX: 67 years / Female INDICATIONS: Post chest tube placement. CLINICAL DATA: This is the patient's subsequent encounter. Patient reports that signs and symptoms h ave been present for 2 days and indicates a pain score of Nonresponsive. MEDICAL/SURGICAL HISTORY: Non-responsive. Pacemaker. COMPARISON: C, CHEST 1V SINGLE AP, 08/19/2018. . FINDINGS: Endotracheal tube tip is several centimeters above the josh. Left neck central line is stable. Naso gastric tube descends into the stomach. A pacing implement is present with control pack over the righ t upper chest. Right base pigtail thoracostomy tube is present. Near-complete evacuation of right ple ural effusion. Mild residual left base effusion. Mild bilateral perihilar parenchymal opacities. Area contours grossly unchanged. CONCLUSION: Satisfactory tube and line positioning. Improving aeration. Electronically signed by: Trung Connell MD Board Certified Radiologist 08/20/2018 11:27 AM EST
--- NOTE | 2018-08-20 11:33 | P.PNCC ---
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 Patient also had productive cough and frothy sputum, sometimes blood tinged. She also complained about declining urinary output. Initial ER workup showed a normal white count, however BUN was elevated at 80 and creatinine 2.72. BNP was more than 4000. Chest x-ray showed right midlung infiltrate. Patient received Rocephin and azithromycin for community-acquired pneumonia. Patient was admitted to the [facility]. After admission due to the shortness of breath pedal edema and elevated BNP [facility] gave the patient 20 mg IV Lasix but without much urine output. Initially patient had HR of 170's EKG appeared to be SVT and patient converted to NSR with IV Cardizem 25 mg. However patient's blood pressure started to decline. Because of this patient was given IV fluid boluses total 1.5 L had been given. Systolic blood pressure remains at 70s. Lactic acid was checked and was 8.1. With this information critical care medicine was consulted I evaluated the patient emergently. She is lethargic but wakes up easily answers questions. Still profoundly hypotensive despite 1.5 L bolus. I have ordered additional 500 mL bolus and will start Levophed at 5 mcg/min and titrate as needed. It was noted had that her INR is 5.2. Patient may benefit from inotropic agents if blood pressure improves. Antibiotics had been broadened into cefepime and azithromycin, I will also add IV Zyvox. Hold all further diuresis due to septic shock. Patient is very critical at this time 08/16: Patient sitting up in bed. Off Levophed however urine output is minimal only 75 mL urine output since admission. CVP remains elevated at 14-15. I will attempt forced diuresis with Bumex 2 mg x1 and Bumex 0.5 mg/h infusion. If no response may need hemodialysis. Follow-up chest x-ray today is pending. Chest x-ray shows persistent right sided infiltrate and effusion 08/17: Patient developed PEA cardiac arrest yesterday afternoon. No immediate inciting factors could be identified however most likely cardiac. 2D echo ordered pending. CT of the head pending. Currently patient had been weaned off all of the pressors however remains encephalopathy. Creatinine is worsening to 3.8 however urine output has improved approximately 500 ml UO in the last 12 hours. 2/2: Patient remains intubated lightly sedated. On lightening sedation patient wakes up easily following commands. Remains on Bumex infusion approximately 6 L urine output. However chest x-ray showing pulmonary edema. Remains off pressors. Will attempt CPAP trials. CT head did not show any acute finding 2/3: Diuresing well with Bumex infusion achieving negative balance however chest x-ray shows bilateral pulmonary vascular congestion and bilateral at least moderate effusions. These are secondary to decompensated heart failure. EF is less than 20 with severe MR. Creatinine down to 3. Prognosis overall is poor despite milrinone and diuresis patient is not proving adequately. We will consult palliative care to address goals of care 24: Patient continues to be in decompensated congestive heart failure. Despite increasing Bumex to 2 mg/h, urine output has decreased to 1.6 L in 24 hours. Chest x-ray continued to show bilateral large pleural effusions. Right- sided pigtail chest tube was placed today with 1 L output initially. Milrinone discontinued due to increasing ventricular irritability Objective Vital Signs / I&O: Vital Signs 08/19/18 11:46 08/19/18 12:00 08/19/18 13:00 Temperature Pulse Rate 106 H 101 H Respiratory Rate 26 H Blood Pressure 103/84 Pulse Oximetry 100 99 08/19/18 14:00 08/19/18 14:01 08/19/18 15:00 Temperature Pulse Rate 110 H 110 H 103 H Respiratory Rate Blood Pressure 118/81 Pulse Oximetry 100 100 100 08/19/18 15:24 08/19/18 16:00 08/19/18 17:00 Temperature Pulse Rate 108 H 104 H Respiratory Rate 16 Blood Pressure Pulse Oximetry 100 100 100 08/19/18 17:21 08/19/18 18:00 08/19/18 19:00 Temperature Pulse Rate 109 H 122 H 110 H Respiratory Rate Blood Pressure 126/92 H 136/104 H Pulse Oximetry 100 100 100 08/19/18 20:00 08/19/18 21:00 08/19/18 21:39 Temperature Pulse Rate 120 H 107 H Respiratory Rate 16 Blood Pressure 121/95 H Pulse Oximetry 100 100 99 08/19/18 22:00 08/19/18 22:01 08/19/18 23:00 Temperature Pulse Rate 111 H 111 H 111 H Respiratory Rate Blood Pressure 151/88 H Pulse Oximetry 99 99 99 08/20/18 00:00 08/20/18 00:22 08/20/18 01:00 Temperature Pulse Rate 110 H 108 H Respiratory Rate 16 Blood Pressure 136/87 Pulse Oximetry 99 99 99 08/20/18 02:00 08/20/18 03:00 08/20/18 04:00 Temperature Pulse Rate 106 H 103 H 101 H Respiratory Rate Blood Pressure 114/86 106/75 Pulse Oximetry 99 99 98 08/20/18 04:15 08/20/18 05:00 08/20/18 06:00 Temperature Pulse Rate 103 H 101 H Respiratory Rate 17 Blood Pressure 111/81 Pulse Oximetry 9 L 99 99 08/20/18 07:00 08/20/18 07:52 08/20/18 08:00 Temperature 98.6 F Pulse Rate 100 H 100 H Respiratory Rate 16 Blood Pressure 117/78 Pulse Oximetry 99 99 99 08/20/18 09:00 Temperature Pulse Rate 96 H Respiratory Rate Blood Pressure Pulse Oximetry 100 Intake & Output 08/19/18 08/20/18 08/20/18 18:59 06:59 18:59 Intake Total 1300 / 1300 650 / 650 300 / 300 Output Total 850 / 850 800 / 800 Balance 450 / 450 -150 / -150 300 / 300 Weight 83.5 kg Intake: IV 1300 / 1300 650 / 650 300 / 300 Bumex Inj 25 mg In 100 ml @ 2 100 / 100 100 / 100 MG/HR 8 mls/hr IV.CONT .[id number] ANA[facility] Rx#:[id number] Versed Inj 100 mg In 100 ml @ 2 100 / 100 100 / 100 MG/HR 2 mls/hr IV.CONT TITRATE PRN Rx#:[id number] Flexbumin 25% Inj 100 ML @ 60 200 / 200 200 / 200 100 / 100 mls/hr IV.SIG Q6HR [facility] Rx#: [id number] Azithromycin Inj 500 MG In NS 250 / 250 Inj 250 ML @ 250 mls/hr IV.SIG Q24H [facility] Rx#:[id number] Maxipime Inj 2,000 MG In NS Inj 100 / 100 100 ML @ 200 mls/hr IV.SIG Q24H [facility] Rx#:[id number] Levophed-Dextrose 4 mg/250 ml 250 / 250 250 / 250 Drip 4 mg In 250 ml @ 2 MCG/MIN 7.5 mls/hr IV.SIG TITRATE PRN Rx#:[id number] KCl 40 mEq Premix Inj 40 meq In 100 / 100 100 ml @ 25 mls/hr IV.SIG ONCE ONE Rx#:[id number] Flagyl 500 MG Inj 100 ML @ 100 200 / 200 100 / 100 100 / 100 mls/hr IV.SIG Q8H [facility] Rx#: [id number] Output: Urine Amount (Catheter) 850 / 850 800 / 800 Indwelling Urethral Catheter 850 / 850 800 / 800 Other: Date of Last Bowel Movement 08/16/18 08/16/18 Result Diagrams: 08/20/18 05:18 08/20/18 05:18 Objective Remarks: General: Ill-appearing -[place] female who is intubated, off sedation moving extremities HEENT: Normocephalic and atraumatic. EOM intact bilaterally. Pupils are reactive. Mild right facial droop. Orotracheally intubated Neck: Supple no JVD Chest: normal inspection of the chest. Scar from AICD placement on the left upper chest. AICD now in right upper chest Resp: Air entry diminished in the right mid chest few crackles heard. No wheezes or rhonchi. On PRVC/AC. Large right pleural effusion Rate: S1-S2 heard normally. No murmurs. Normal sinus rhythm. CI 1.4 to 1.7 GI: Abdomen soft nontender no organomegaly Skin: No rashes or lesions noted, dry skin Neuro: Patient is intubated lightly sedated. Moves extremities spontaneously but weakly. Follows commands when sedation is held Assessment and Plan - Assessment and Plan Plan: ASSESSMENT: PEA cardiac arrest Decompensated systolic heart failure Bilateral pleural effusion/pulmonary edema Severe biventricular failure Acute metabolic encephalopathy Septic shock improving Cardiogenic shock-marginally improving Acute respiratory failure Severe MR, TR Right sided pneumonia, with effusion Lactic acidemia Acute on chronic kidney disease Supratherapeutic INR Mild troponin elevation SVT-resolved Hypokalemia Cardiomyopathy ejection fraction 20% Chronic kidney disease Hypertension History of CVA in 2017 Chronic anticoagulation with Coumadin PLAN: NEURO: -Metabolic encephalopathy secondary to sepsis, no evidence of significant anoxic injury from PEA arrest -Monitor neuro status closely, daily sedation vacation -No evidence of new CVA at this time. CT of the head negative for acute findings old right frontal stroke RESP: -Status post ultrasound-guided thoracentesis, studies consistent with transudative versus early exudative effusion -Status post right pigtail chest tube placement with 1 L output today 08/20/2018 -Intubated and placed on mechanical ventilation during CPR 08/16/18 -DuoNeb every 6 hours scheduled and every 2 hours as needed -Follow-up on sputum culture, ABX as below, cultures negative to date CV: -Following PEA cardiac arrest patient was on epinephrine and Levophed infusion. Both had been weaned off -Milrinone started for decompensated heart failure, discontinued overnight due to increased ventricular irritability -2D echo previously showing EF 20-25%. Repeat 2D echo Severely dilated right and left ventricle with severe biventricular dysfunction. LV EF less than 20%. Severe MR and TR -Continue Bumex infusion at 2 mg/h. -fashion consultant -Holding Coumadin, INR remains supratherapeutic -On admission received 25 mg IVP Cardizem for SVT, now in NSR GI: -N.p.o., IV famotidine -Tube feeds with Nepro, start today : -Monitor renal function closely. Bradley catheter. -Nephrology Dr. James following -Bumex infusion at 2 mg/h with adequate urine output however congestive heart failure persistent even with achieving negative balance ID: -Continue empiric cefepime -Follow blood urine and sputum cultures, negative to date -Consolidate antibiotics per culture HEME: -Monitor CBC, coags -Status post multiple platelet and vitamin K administration for supratherapeutic INR ENDO: -Electrolyte replacement as needed PROPH: -Bilateral lower extremity SCDs. IV famotidine LINES: -Utilize peripheral IVs, left IJ central line placed 08/15/2018 -Intubation and left femoral central line placement 08/16/2018 -Right pigtail chest tube placed 08/20/2018 CC time 40 min Patient is very critical at this time even though stabilized. She sustained a PEA cardiac arrest 08/16/18 most likely from cardiac reasons. 2D echo shows EF less than 20%, severe MR, severe TR with evidence of severe biventricular failure. Her shock has improved however there is persistent biventricular failure. Not tolerating milrinone due to ventricular arrhythmias. Prognosis is guarded with severe biventricular dilatation and failure. Despite aggressive diuresis patient remains in decompensated congestive heart failure. Palliative care consulted to address goals of care
--- NOTE | 2018-08-20 11:40 | P.PNFP ---
Subjective Interval history: Patient was seen at bedside this morning. There were no acute events overnight. Patient remains intubated on mechanical ventilation. Family was not at bedside during examination. Patient unable to communicate due to intubation. <DarlingDru Mcnamara - 08/20/18 12:09> Results - Labs Result diagrams: 08/20/18 05:18 08/20/18 05:18 <Amelia Phoenix - 08/20/18 19:55> Abnormal lab results 08/20/18 08/20/18 08/20/18 Range/Units 05:18 05:18 08:46 RBC 3.75 L (4.00-5.30) mil/mm3 Hgb 9.0 L (11.6-15.3) gm/dL Hct 27.7 L (35.0-46.0) % MCV 73.7 L (80.0-100.0) fL MCH 24.0 L (27.0-34.0) pg RDW 18.8 H (11.6-17.2) % Plt Count 140 L (150-450) th/mm3 PT 23.1 H (9.8-11.6) sec Anion Gap 16 H (5-15) meq/L BUN 78 H (7-18) mg/dL Creatinine 3.19 H (0.50-1.00) mg/dL Estimated GFR 18 L (>89) mL/min Total Bilirubin 5.3 H (0.2-1.0) mg/dL Total Protein 6.2 L (6.4-8.2) g/dL Pleural RBC (0-0) /mm3 Pleural Nuc Cells (0-10) /mm3 08/20/18 Range/Units 10:40 RBC (4.00-5.30) mil/mm3 Hgb (11.6-15.3) gm/dL Hct (35.0-46.0) % MCV (80.0-100.0) fL MCH (27.0-34.0) pg RDW (11.6-17.2) % Plt Count (150-450) th/mm3 PT (9.8-11.6) sec Anion Gap (5-15) meq/L BUN (7-18) mg/dL Creatinine (0.50-1.00) mg/dL Estimated GFR (>89) mL/min Total Bilirubin (0.2-1.0) mg/dL Total Protein (6.4-8.2) g/dL Pleural RBC 2064 H (0-0) /mm3 Pleural Nuc Cells 270 H (0-10) /mm3 Short CBC 08/20/18 Range/Units 05:18 WBC 8.6 (4.0-11.0) th/mm3 Hgb 9.0 L (11.6-15.3) gm/dL Hct 27.7 L (35.0-46.0) % Plt Count 140 L (150-450) th/mm3 BMP 08/20/18 05:18 Sodium 144 Potassium 3.6 Chloride 101 Carbon Dioxide 27.2 BUN 78 H Creatinine 3.19 H Calcium 9.3 D Liver Function 08/20/18 Range/Units 05:18 Total Bilirubin 5.3 H (0.2-1.0) mg/dL AST 30 (15-37) U/L ALT 24 (10-53) U/L Alkaline Phosphatase 46 (45-117) U/L Albumin 4.2 (3.4-5.0) g/dL <PreciousdominickAmelia - 08/20/18 19:55> Abnormal lab results 08/19/18 08/20/18 08/20/18 Range/Units 17:00 05:18 05:18 RBC 3.75 L (4.00-5.30) mil/mm3 Hgb 9.0 L (11.6-15.3) gm/dL Hct 27.7 L (35.0-46.0) % MCV 73.7 L (80.0-100.0) fL MCH 24.0 L (27.0-34.0) pg RDW 18.8 H (11.6-17.2) % Plt Count 140 L (150-450) th/mm3 PT (9.8-11.6) sec Sodium 146 H (136-145) meq/L Anion Gap 16 H 16 H (5-15) meq/L BUN 70 H 78 H (7-18) mg/dL Creatinine 2.92 H 3.19 H (0.50-1.00) mg/dL Estimated GFR 19 L 18 L (>89) mL/min Calcium 8.1 L (8.5-10.1) mg/dL Total Bilirubin 4.2 H 5.3 H (0.2-1.0) mg/dL Total Protein 5.9 L 6.2 L (6.4-8.2) g/dL 08/20/18 Range/Units 08:46 RBC (4.00-5.30) mil/mm3 Hgb (11.6-15.3) gm/dL Hct (35.0-46.0) % MCV (80.0-100.0) fL MCH (27.0-34.0) pg RDW (11.6-17.2) % Plt Count (150-450) th/mm3 PT 23.1 H (9.8-11.6) sec Sodium (136-145) meq/L Anion Gap (5-15) meq/L BUN (7-18) mg/dL Creatinine (0.50-1.00) mg/dL Estimated GFR (>89) mL/min Calcium (8.5-10.1) mg/dL Total Bilirubin (0.2-1.0) mg/dL Total Protein (6.4-8.2) g/dL Short CBC 08/20/18 Range/Units 05:18 WBC 8.6 (4.0-11.0) th/mm3 Hgb 9.0 L (11.6-15.3) gm/dL Hct 27.7 L (35.0-46.0) % Plt Count 140 L (150-450) th/mm3 BMP 08/19/18 08/20/18 17:00 05:18 Sodium 146 H 144 Potassium 3.5 3.6 Chloride 105 101 Carbon Dioxide 24.7 27.2 BUN 70 H 78 H Creatinine 2.92 H 3.19 H Calcium 8.1 L 9.3 D Liver Function 08/19/18 08/20/18 Range/Units 17:00 05:18 Total Bilirubin 4.2 H 5.3 H (0.2-1.0) mg/dL AST 35 30 (15-37) U/L ALT 24 24 (10-53) U/L Alkaline Phosphatase 47 46 (45-117) U/L Albumin 3.8 4.2 (3.4-5.0) g/dL <Dru Jane O - 08/20/18 11:40> - Imaging Impressions Chest X-Ray 08/20/18 00:00 CONCLUSION: Satisfactory tube and line positioning. Improving aeration. <Amelia Phoenix - 08/20/18 19:55> Impressions Chest X-Ray 08/20/18 00:00 CONCLUSION: Satisfactory tube and line positioning. Improving aeration. <Dru Jane Holli - 08/20/18 11:40> Physical Exam Vital signs: Vital Signs 08/19/18 20:00 08/19/18 21:00 08/19/18 21:39 Temperature Pulse Rate 120 H 107 H Respiratory Rate 16 Blood Pressure 121/95 H Pulse Oximetry 100 100 99 08/19/18 22:00 08/19/18 22:01 08/19/18 23:00 Temperature Pulse Rate 111 H 111 H 111 H Respiratory Rate Blood Pressure 151/88 H Pulse Oximetry 99 99 99 08/20/18 00:00 08/20/18 00:22 08/20/18 01:00 Temperature Pulse Rate 110 H 108 H Respiratory Rate 16 Blood Pressure 136/87 Pulse Oximetry 99 99 99 08/20/18 02:00 08/20/18 03:00 08/20/18 04:00 Temperature Pulse Rate 106 H 103 H 101 H Respiratory Rate Blood Pressure 114/86 106/75 Pulse Oximetry 99 99 98 08/20/18 04:15 08/20/18 05:00 08/20/18 06:00 Temperature Pulse Rate 103 H 101 H Respiratory Rate 17 Blood Pressure 111/81 Pulse Oximetry 9 L 99 99 08/20/18 07:00 08/20/18 07:52 08/20/18 08:00 Temperature 98.6 F Pulse Rate 100 H 100 H Respiratory Rate 16 Blood Pressure 117/78 Pulse Oximetry 99 99 99 08/20/18 09:00 08/20/18 10:00 08/20/18 11:00 Temperature Pulse Rate 96 H 97 H 91 H Respiratory Rate Blood Pressure 108/70 Pulse Oximetry 100 100 98 08/20/18 11:47 08/20/18 12:00 08/20/18 13:00 Temperature 98.0 F Pulse Rate 91 H 92 H Respiratory Rate 19 Blood Pressure 104/74 Pulse Oximetry 98 98 99 08/20/18 14:00 08/20/18 15:00 08/20/18 15:49 Temperature Pulse Rate 92 H 88 Respiratory Rate 14 Blood Pressure 94/68 L Pulse Oximetry 98 97 97 08/20/18 16:00 08/20/18 17:00 08/20/18 18:00 Temperature 98.2 F Pulse Rate 96 H 96 H 96 H Respiratory Rate Blood Pressure 100/73 89/67 L Pulse Oximetry 97 98 99 Intake & Output 08/20/18 08/20/18 08/21/18 06:59 18:59 06:59 Intake Total 650 / 650 1050 / 1050 Output Total 800 / 800 3560 / 3560 Balance -150 / -150 -2510 / -2510 Weight 83.5 kg Intake: IV 650 / 650 1050 / 1050 Bumex Inj 25 mg In 100 ml @ 2 100 / 100 100 / 100 MG/HR 8 mls/hr IV.CONT .[id number] ANAHI Rx#:[id number] Versed Inj 100 mg In 100 ml @ 2 100 / 100 MG/HR 2 mls/hr IV.CONT TITRATE PRN Rx#:[id number] Flexbumin 25% Inj 100 ML @ 60 200 / 200 300 / 300 mls/hr IV.SIG Q6HR ANAHI Rx#: [id number] Azithromycin Inj 500 MG In NS 250 / 250 Inj 250 ML @ 250 mls/hr IV.SIG Q24H ANAHI Rx#:[id number] Maxipime Inj 2,000 MG In NS Inj 100 / 100 100 ML @ 200 mls/hr IV.SIG Q24H ANAHI Rx#:[id number] Levophed-Dextrose 4 mg/250 ml 250 / 250 Drip 4 mg In 250 ml @ 2 MCG/MIN 7.5 mls/hr IV.SIG TITRATE PRN Rx#:[id number] Flagyl 500 MG Inj 100 ML @ 100 100 / 100 200 / 200 mls/hr IV.SIG Q8H ANAHI Rx#: [id number] Output: Urine Amount (Catheter) 800 / 800 1900 / 1900 Indwelling Urethral Catheter 800 / 800 1900 / 1900 Chest Tube Drainage 1660 / 1660 Right Mid-Axillary Chest 1660 / 1660 Other: Date of Last Bowel Movement 08/16/18 <Amelia Phoenix - 08/20/18 19:55> Vital Signs 08/19/18 11:46 08/19/18 12:00 08/19/18 13:00 Temperature Pulse Rate 106 H 101 H Respiratory Rate 26 H Blood Pressure 103/84 Pulse Oximetry 100 99 08/19/18 14:00 08/19/18 14:01 08/19/18 15:00 Temperature Pulse Rate 110 H 110 H 103 H Respiratory Rate Blood Pressure 118/81 Pulse Oximetry 100 100 100 08/19/18 15:24 08/19/18 16:00 08/19/18 17:00 Temperature Pulse Rate 108 H 104 H Respiratory Rate 16 Blood Pressure Pulse Oximetry 100 100 100 08/19/18 17:21 08/19/18 18:00 08/19/18 19:00 Temperature Pulse Rate 109 H 122 H 110 H Respiratory Rate Blood Pressure 126/92 H 136/104 H Pulse Oximetry 100 100 100 08/19/18 20:00 08/19/18 21:00 08/19/18 21:39 Temperature Pulse Rate 120 H 107 H Respiratory Rate 16 Blood Pressure 121/95 H Pulse Oximetry 100 100 99 08/19/18 22:00 08/19/18 22:01 08/19/18 23:00 Temperature Pulse Rate 111 H 111 H 111 H Respiratory Rate Blood Pressure 151/88 H Pulse Oximetry 99 99 99 08/20/18 00:00 08/20/18 00:22 08/20/18 01:00 Temperature Pulse Rate 110 H 108 H Respiratory Rate 16 Blood Pressure 136/87 Pulse Oximetry 99 99 99 08/20/18 02:00 08/20/18 03:00 08/20/18 04:00 Temperature Pulse Rate 106 H 103 H 101 H Respiratory Rate Blood Pressure 114/86 106/75 Pulse Oximetry 99 99 98 08/20/18 04:15 08/20/18 05:00 08/20/18 06:00 Temperature Pulse Rate 103 H 101 H Respiratory Rate 17 Blood Pressure 111/81 Pulse Oximetry 9 L 99 99 08/20/18 07:00 08/20/18 07:52 08/20/18 08:00 Temperature 98.6 F Pulse Rate 100 H 100 H Respiratory Rate 16 Blood Pressure 117/78 Pulse Oximetry 99 99 99 08/20/18 09:00 Temperature Pulse Rate 96 H Respiratory Rate Blood Pressure Pulse Oximetry 100 Intake & Output 08/19/18 08/20/18 08/20/18 18:59 06:59 18:59 Intake Total 1300 / 1300 650 / 650 300 / 300 Output Total 850 / 850 800 / 800 Balance 450 / 450 -150 / -150 300 / 300 Weight 83.5 kg Intake: IV 1300 / 1300 650 / 650 300 / 300 Bumex Inj 25 mg In 100 ml @ 2 100 / 100 100 / 100 MG/HR 8 mls/hr IV.CONT .[id number] ANAHI Rx#:[id number] Versed Inj 100 mg In 100 ml @ 2 100 / 100 100 / 100 MG/HR 2 mls/hr IV.CONT TITRATE PRN Rx#:[id number] Flexbumin 25% Inj 100 ML @ 60 200 / 200 200 / 200 100 / 100 mls/hr IV.SIG Q6HR ANAHI Rx#: [id number] Azithromycin Inj 500 MG In NS 250 / 250 Inj 250 ML @ 250 mls/hr IV.SIG Q24H ANAHI Rx#:[id number] Maxipime Inj 2,000 MG In NS Inj 100 / 100 100 ML @ 200 mls/hr IV.SIG Q24H ANAHI Rx#:[id number] Levophed-Dextrose 4 mg/250 ml 250 / 250 250 / 250 Drip 4 mg In 250 ml @ 2 MCG/MIN 7.5 mls/hr IV.SIG TITRATE PRN Rx#:[id number] KCl 40 mEq Premix Inj 40 meq In 100 / 100 100 ml @ 25 mls/hr IV.SIG ONCE ONE Rx#:[id number] Flagyl 500 MG Inj 100 ML @ 100 200 / 200 100 / 100 100 / 100 mls/hr IV.SIG Q8H ANAHI Rx#: [id number] Output: Urine Amount (Catheter) 850 / 850 800 / 800 Indwelling Urethral Catheter 850 / 850 800 / 800 Other: Date of Last Bowel Movement 08/16/18 08/16/18 <Dru Jane O - 08/20/18 11:40> Narrative: GENERAL: Intubated and mechanically ventilated. SKIN: warm and dry. HEAD: Normocephalic. EYES: No scleral icterus. No injection or drainage. Opened eyes spontaneously. NECK: Intubated, central line in left jugular CARDIOVASCULAR: Regular rate and rhythm with no murmurs, rubs or gallops. Scar left-sided chest from previous pacemaker placement. RESPIRATORY: Clear to auscultation bilaterally without any wheezes GASTROINTESTINAL: Abdomen soft, non-tender, nondistended. Patient has Bradley in place draining yellow to clear urine without any signs of bleeding. EXTREMITIES: Greatly improved, no pitting edema in lower extremities bilaterally. Bilateral upper extremity edema nonpitting. NEUROLOGICAL: On ventilator, on sedation and pressors. <Dru Jane 08/20/18 12:09> - Urinary Catheter Management Indwelling Urethral Catheter Cath placed during this visit: no <Amelia Phoenix 08/20/18 19:55> no <Dru Jane 08/20/18 14:22> Reason for continuing: Hourly intake/output <Dru Jane 08/20/18 11:40 > Assessment and Plan - Assessment (1) Severe sepsis Code(s): A41.9 - Sepsis, unspecified organism; R65.20 - Severe sepsis without septic shock Status: Acute (2) Pneumonia Code(s): J18.9 - Pneumonia, unspecified organism Status: Acute (3) Acute exacerbation of CHF (congestive heart failure) Code(s): I50.9 - Heart failure, unspecified Status: Acute (4) Acute on chronic kidney failure Code(s): N17.9 - Acute kidney failure, unspecified; N18.9 - Chronic kidney disease, unspecified Status: Acute (5) Pleural effusion Code(s): J90 - Pleural effusion, not elsewhere classified Status: Acute (6) PEA (Pulseless electrical activity) Code(s): I46.9 - Cardiac arrest, cause unspecified Status: Resolved (7) Elevated troponin Code(s): R74.8 - Abnormal levels of other serum enzymes Status: Acute (8) Hypertension Code(s): I10 - Essential (primary) hypertension Status: Resolved (9) Nutrition, metabolism, and development symptoms Code(s): R63.8 - Other symptoms and signs concerning food and fluid intake Status: Acute <Amelia Phoenix - 08/20/18 19:55> (1) Severe sepsis Code(s): A41.9 - Sepsis, unspecified organism; R65.20 - Severe sepsis without septic shock Status: Acute Plan: Community-acquired pneumonia complicated by lower extremity edema in the setting of CHF with an EF of 20%. Patient status post thoracentesis for pleural effusion. -Intubated mechanically ventilated -Patient continues to require pressor support with Levophed -Blood cultures (08/15): No growth to date -Pleural fluid Gram stain and cultures no growth to date -Metabolic encephalopathy secondary to sepsis, without evidence of significant anoxic injury from PEA arrest Plan: Per County Bailiff: -Dc Azithromycin (08/15-08/19) -Dc Zyvox (08/15-08/19) Continue - Flagyl 500 mg every 8h (08/15) - Cefepime 2000 mg every 8 hours (08/15) (2) Pneumonia Code(s): J18.9 - Pneumonia, unspecified organism Status: Acute Plan: Community acquired right-sided pneumonia with lactic acidosis. -DuoNeb every 2 hours as needed -Sputum culture uncollected -Respiratory panel uncollected -Continue with antibiotics per critical care team as dictated above Repeat CXR 08/20 showing near-complete evacuation of right pleural effusion. Mild residual left base effusion. Mild bilateral perihilar parenchymal opacities. (3) Acute exacerbation of CHF (congestive heart failure) Code(s): I50.9 - Heart failure, unspecified Status: Acute Plan: -BNP 4000 on admission -Patient being diuresed with Bumex IV -Lower extremity edema greatly improved -Echo 08/17: EF 20%, fairly dilated left ventricle, severe mitral regurgitation -Patient diuresed 5 L over last 48 hours (4) Acute on chronic kidney failure Code(s): N17.9 - Acute kidney failure, unspecified; N18.9 - Chronic kidney disease, unspecified Status: Acute Plan: This patient stage III CKD with elevated creatinine above baseline on admission. Possibly due to decrease intravascular volume in the setting of sepsis. -Creatinine on admission 2.72 from baseline of 1.5. -Creatinine worsening but stable 3.19 this morning -Urine output over 5,000 mL in the last 24 hours, urine output -Nephrology Dr. James following -Bumex infusion at 2 mg/h Plan: -Trend kidney function -trend I/O -Hemodialysis not recommended by nephrology at this time -Nephrology following, appreciate rec (5) Pleural effusion Code(s): J90 - Pleural effusion, not elsewhere classified Status: Acute Plan: Patient status post day after right sided thoracentesis (08/16/18) with evacuation of approximately 950 ml of slightly cloudy, yellow colored fluid was removed without difficulty. Patient underwent therapeutic right sided chest tube placement with pigtail that drained 950ml of slightly cloudy yellow fluid. -08/16: Pleural fluid showed 1,333 red blood cells with 230 nucleated cells. Fluid consistent with transudative process. Cultures show no growth to date. Plan: -Monitor chest tube output -Continue pulmonary care as stated above Poor prognosis per critical care team. Palliative care consulted to address goals of care (6) PEA (Pulseless electrical activity) Code(s): I46.9 - Cardiac arrest, cause unspecified Status: Resolved Plan: Patient required ACLS for 9 minutes on 08/16/18 for PEA arrest -ROSC was achieved by critical care medicine Patient was intubated and sedated and treated with pressor support See treatment for severe sepsis (7) Elevated troponin Code(s): R74.8 - Abnormal levels of other serum enzymes Status: Acute Plan: Initial troponins of admission 0.10 with no chest pain or ST elevation or depression on EKG. ACS versus elevated troponins in the setting of chronic kidney disease and increased cardiac demand. Patient in SVT on admission now resolved. -EKG: Initial EKG showed supraventricular tachycardia -Chest x-ray consolidation right midlung and cardiomegaly -Initial troponin 0.10--> 0.45 Plan: -Plan to recheck troponins after patient is stabilized (8) Hypertension Code(s): I10 - Essential (primary) hypertension Status: Resolved Plan: Patient initially hypotensive in the setting of sepsis, admitted to ICU. Status post PEA with resumption of spontaneous circulation after 9 minutes. On pressure support. -Continue management for hypotension per grocery manager (9) Nutrition, metabolism, and development symptoms Code(s): R63.8 - Other symptoms and signs concerning food and fluid intake Status: Acute Plan: Fluids: Per grocery manager Electrolytes: Replete as needed Nutrition: Tube feeds with Nepro DVT prophylaxis: Hold Coumadin <Dru Jane O - 08/20/18 14:01> - Attending Attestation Patient seen, examined, and discussed with resident team on morning rounds. I agree with assessment and management as documented and discussed with me. Pt remains intubated and sedated. She is having frequent PVCs per nursing. Pt remains critical with guarded prognosis. <Amelia Phoenix - 08/20/18 19:55> <Dru Jane O - Last Filed: 08/20/18 14:01> (3) Acute exacerbation of CHF (congestive heart failure) Qualifiers: Heart failure type: systolic Qualified Code(s): I50.23 - Acute on chronic systolic (congestive) heart failure (4) Acute on chronic kidney failure Qualifiers: Acute renal failure type: unspecified Chronic kidney disease stage: stage 4 ( severe) Qualified Code(s): N17.9 - Acute kidney failure, unspecified; N18.4 - Chronic kidney disease, stage 4 (severe) <Amelia Phoenix - Last Filed: 08/20/18 19:55> (3) Acute exacerbation of CHF (congestive heart failure) Qualifiers: Heart failure type: systolic Qualified Code(s): I50.23 - Acute on chronic systolic (congestive) heart failure (4) Acute on chronic kidney failure Qualifiers: Acute renal failure type: unspecified Chronic kidney disease stage: stage 4 ( severe) Qualified Code(s): N17.9 - Acute kidney failure, unspecified; N18.4 - Chronic kidney disease, stage 4 (severe) <Dru Jane - Last Filed: 08/20/18 14:01> (3) Acute exacerbation of CHF (congestive heart failure) Qualifiers: Heart failure type: systolic Qualified Code(s): I50.23 - Acute on chronic systolic (congestive) heart failure (4) Acute on chronic kidney failure Qualifiers: Acute renal failure type: unspecified Chronic kidney disease stage: stage 4 ( severe) Qualified Code(s): N17.9 - Acute kidney failure, unspecified; N18.4 - Chronic kidney disease, stage 4 (severe) <Amelia Phoenix - Last Filed: 08/20/18 19:55> (3) Acute exacerbation of CHF (congestive heart failure) Qualifiers: Heart failure type: systolic Qualified Code(s): I50.23 - Acute on chronic systolic (congestive) heart failure (4) Acute on chronic kidney failure Qualifiers: Acute renal failure type: unspecified Chronic kidney disease stage: stage 4 ( severe) Qualified Code(s): N17.9 - Acute kidney failure, unspecified; N18.4 - Chronic kidney disease, stage 4 (severe)
--- NOTE | 2018-08-20 12:49 | P.PNNP ---
Subjective Interval history: Patient was seen, orally intubated at 40% FiO2. Patient was unresponsive, off pressors and sedation. Patient's renal function has fluctuated, Creatinine is 3.19. Patient on Bumex drip, increased to 2mg/hr today. Patient had 1600 ml of urine output since 6am, patient has payne cath in. Patient had chest tube placed today for right sided pleural effusion. <Travis Carlton - Last Filed: 08/20/18 15:26> Physical Exam Vital signs: Vital Signs 08/19/18 13:00 08/19/18 14:00 08/19/18 14:01 Temperature Pulse Rate 101 H 110 H 110 H Respiratory Rate Blood Pressure 118/81 Pulse Oximetry 99 100 100 08/19/18 15:00 08/19/18 15:24 08/19/18 16:00 Temperature Pulse Rate 103 H 108 H Respiratory Rate 16 Blood Pressure Pulse Oximetry 100 100 100 08/19/18 17:00 08/19/18 17:21 08/19/18 18:00 Temperature Pulse Rate 104 H 109 H 122 H Respiratory Rate Blood Pressure 126/92 H 136/104 H Pulse Oximetry 100 100 100 08/19/18 19:00 08/19/18 20:00 08/19/18 21:00 Temperature Pulse Rate 110 H 120 H 107 H Respiratory Rate Blood Pressure 121/95 H Pulse Oximetry 100 100 100 08/19/18 21:39 08/19/18 22:00 08/19/18 22:01 Temperature Pulse Rate 111 H 111 H Respiratory Rate 16 Blood Pressure 151/88 H Pulse Oximetry 99 99 99 08/19/18 23:00 08/20/18 00:00 08/20/18 00:22 Temperature Pulse Rate 111 H 110 H Respiratory Rate 16 Blood Pressure 136/87 Pulse Oximetry 99 99 99 08/20/18 01:00 08/20/18 02:00 08/20/18 03:00 Temperature Pulse Rate 108 H 106 H 103 H Respiratory Rate Blood Pressure 114/86 Pulse Oximetry 99 99 99 08/20/18 04:00 08/20/18 04:15 08/20/18 05:00 Temperature Pulse Rate 101 H 103 H Respiratory Rate 17 Blood Pressure 106/75 Pulse Oximetry 98 9 L 99 08/20/18 06:00 08/20/18 07:00 08/20/18 07:52 Temperature Pulse Rate 101 H 100 H Respiratory Rate 16 Blood Pressure 111/81 Pulse Oximetry 99 99 99 08/20/18 08:00 08/20/18 09:00 08/20/18 11:47 Temperature 98.6 F Pulse Rate 100 H 96 H Respiratory Rate 19 Blood Pressure 117/78 Pulse Oximetry 99 100 98 Intake & Output 08/19/18 08/20/18 08/20/18 18:59 06:59 18:59 Intake Total 1300 / 1300 650 / 650 300 / 300 Output Total 850 / 850 800 / 800 Balance 450 / 450 -150 / -150 300 / 300 Weight 83.5 kg Intake: IV 1300 / 1300 650 / 650 300 / 300 Bumex Inj 25 mg In 100 ml @ 2 100 / 100 100 / 100 MG/HR 8 mls/hr IV.CONT .[id number] [facility] Rx#:[id number] Versed Inj 100 mg In 100 ml @ 2 100 / 100 100 / 100 MG/HR 2 mls/hr IV.CONT TITRATE PRN Rx#:[id number] Flexbumin 25% Inj 100 ML @ 60 200 / 200 200 / 200 100 / 100 mls/hr IV.SIG Q6HR [facility] Rx#: [id number] Azithromycin Inj 500 MG In NS 250 / 250 Inj 250 ML @ 250 mls/hr IV.SIG Q24H [facility] Rx#:[id number] Maxipime Inj 2,000 MG In NS Inj 100 / 100 100 ML @ 200 mls/hr IV.SIG Q24H [facility] Rx#:[id number] Levophed-Dextrose 4 mg/250 ml 250 / 250 250 / 250 Drip 4 mg In 250 ml @ 2 MCG/MIN 7.5 mls/hr IV.SIG TITRATE PRN Rx#:[id number] KCl 40 mEq Premix Inj 40 meq In 100 / 100 100 ml @ 25 mls/hr IV.SIG ONCE ONE Rx#:[id number] Flagyl 500 MG Inj 100 ML @ 100 200 / 200 100 / 100 100 / 100 mls/hr IV.SIG Q8H [facility] Rx#: [id number] Output: Urine Amount (Catheter) 850 / 850 800 / 800 Indwelling Urethral Catheter 850 / 850 800 / 800 Other: Date of Last Bowel Movement 08/16/18 08/16/18 Narrative: GENERAL: Intubated and mechanically ventilated on 40% FiO2. SKIN: warm and dry. HEAD: Normocephalic. NECK: Intubated, central line in left jugular. CARDIOVASCULAR: Regular rate and rhythm with no murmurs, rubs or gallops. RESPIRATORY: Clear to auscultation bilaterally, chest tube in place on right side. GASTROINTESTINAL: Abdomen soft, non-tender, nondistended. EXTREMITIES: Mild bilateral lower extremity edema. NEUROLOGICAL: Not responsive. - Urinary Catheter Management Indwelling Urethral Catheter Cath placed during this visit: no Reason for continuing: Hourly intake/output <Travis Carlton - Last Filed: 08/20/18 15:26> Vital signs: Vital Signs 08/19/18 15:24 08/19/18 16:00 08/19/18 17:00 Temperature Pulse Rate 108 H 104 H Respiratory Rate 16 Blood Pressure Pulse Oximetry 100 100 100 08/19/18 17:21 08/19/18 18:00 08/19/18 19:00 Temperature Pulse Rate 109 H 122 H 110 H Respiratory Rate Blood Pressure 126/92 H 136/104 H Pulse Oximetry 100 100 100 08/19/18 20:00 08/19/18 21:00 08/19/18 21:39 Temperature Pulse Rate 120 H 107 H Respiratory Rate 16 Blood Pressure 121/95 H Pulse Oximetry 100 100 99 08/19/18 22:00 08/19/18 22:01 08/19/18 23:00 Temperature Pulse Rate 111 H 111 H 111 H Respiratory Rate Blood Pressure 151/88 H Pulse Oximetry 99 99 99 08/20/18 00:00 08/20/18 00:22 08/20/18 01:00 Temperature Pulse Rate 110 H 108 H Respiratory Rate 16 Blood Pressure 136/87 Pulse Oximetry 99 99 99 08/20/18 02:00 08/20/18 03:00 08/20/18 04:00 Temperature Pulse Rate 106 H 103 H 101 H Respiratory Rate Blood Pressure 114/86 106/75 Pulse Oximetry 99 99 98 08/20/18 04:15 08/20/18 05:00 08/20/18 06:00 Temperature Pulse Rate 103 H 101 H Respiratory Rate 17 Blood Pressure 111/81 Pulse Oximetry 9 L 99 99 08/20/18 07:00 08/20/18 07:52 08/20/18 08:00 Temperature 98.6 F Pulse Rate 100 H 100 H Respiratory Rate 16 Blood Pressure 117/78 Pulse Oximetry 99 99 99 08/20/18 09:00 08/20/18 11:47 Temperature Pulse Rate 96 H Respiratory Rate 19 Blood Pressure Pulse Oximetry 100 98 Intake & Output 08/19/18 08/20/18 08/20/18 18:59 06:59 18:59 Intake Total 1300 / 1300 650 / 650 500 / 500 Output Total 850 / 850 800 / 800 Balance 450 / 450 -150 / -150 500 / 500 Weight 83.5 kg Intake: IV 1300 / 1300 650 / 650 500 / 500 Bumex Inj 25 mg In 100 ml @ 2 100 / 100 100 / 100 MG/HR 8 mls/hr IV.CONT .[id number] [facility] Rx#:[id number] Versed Inj 100 mg In 100 ml @ 2 100 / 100 100 / 100 MG/HR 2 mls/hr IV.CONT TITRATE PRN Rx#:[id number] Flexbumin 25% Inj 100 ML @ 60 200 / 200 200 / 200 200 / 200 mls/hr IV.SIG Q6HR [facility] Rx#: [id number] Azithromycin Inj 500 MG In NS 250 / 250 Inj 250 ML @ 250 mls/hr IV.SIG Q24H [facility] Rx#:[id number] Maxipime Inj 2,000 MG In NS Inj 100 / 100 100 / 100 100 ML @ 200 mls/hr IV.SIG Q24H [facility] Rx#:[id number] Levophed-Dextrose 4 mg/250 ml 250 / 250 250 / 250 Drip 4 mg In 250 ml @ 2 MCG/MIN 7.5 mls/hr IV.SIG TITRATE PRN Rx#:[id number] KCl 40 mEq Premix Inj 40 meq In 100 / 100 100 ml @ 25 mls/hr IV.SIG ONCE ONE Rx#:[id number] Flagyl 500 MG Inj 100 ML @ 100 200 / 200 100 / 100 100 / 100 mls/hr IV.SIG Q8H [facility] Rx#: [id number] Output: Urine Amount (Catheter) 850 / 850 800 / 800 Indwelling Urethral Catheter 850 / 850 800 / 800 Other: Date of Last Bowel Movement 08/16/18 08/16/18 - Urinary Catheter Management Indwelling Urethral Catheter Cath placed during this visit: no <Pedro López - Last Filed: 02/05/19 14:17> Assessment and Plan - Assessment (1) Acute kidney injury superimposed on CKD Code(s): N17.9 - Acute kidney failure, unspecified; N18.9 - Chronic kidney disease, unspecified Status: Acute Plan: Patient previously coded had PEA arrest, patient is intubated. Renal function has fluctuated since admission, has declined today, Creatinine is 3.19. She has cardiomyopathy EF 20%. Poor candidate for renal replacement therapy. BP is stable, Milrinone stopped today. CXR showing bilateral pleural effusion, right sided chest tube placed today. Bumex drip increased today, monitor urine output. Monitor fluid and electrolytes. Avoid nephrotoxic agents. <Travis Carlton - Last Filed: 08/20/18 15:26> - Assessment (1) Acute kidney injury superimposed on CKD Code(s): N17.9 - Acute kidney failure, unspecified; N18.9 - Chronic kidney disease, unspecified Status: Acute - Attending Attestation patient was seen and examined. She has very poor prognosis. Poor cardiac function, respiratory failure, with decompensated CHF. Suggest hospice. She likely is not going to tolerate renal replacement therapy. <Pedro López - Last Filed: 08/21/18 14:17>
[2018-08-20] MEDS: Senna/Docusate Sodium 8.6/50 MG Tablet PO SCH ×2 (13:58→20:45)
[2018-08-20 16:54] LABS: Total Protein,Pleural Fluid 3.2 gm/dL
[2018-08-20 17:34] LABS: Lymphocytes,Pleural Fluid 49 %; Mesothelial,Pleural Fluid 19 %; Monocytes,Pleural Fluid 6 %; Neutrophils,Pleural Fluid 26 %; RBC,Pleural Fluid 2064 /mm3 (0-0)
--- NOTE | 2018-08-21 03:44 | XR ---
EXAM DATE: 08/21/2018 3:36 AM EST AGE/SEX: 67 years / Female INDICATIONS: Shortness of breath. CLINICAL DATA: This is the patient's subsequent encounter. Patient reports that signs and symptoms h ave been present for 3 days and indicates a pain score of Nonresponsive. MEDICAL/SURGICAL HISTORY: Non-responsive. Pacemaker. COMPARISON: [facility] [place], CHEST 1V SINGLE AP, 08/20/2018. . FINDINGS: Portable AP view of the chest demonstrates stable enlargement of the cardiac silhouette. ETT, nasogas tric tube, and left IJ central line remain present. Pigtail pleural catheter overlies the right lower chest/right upper quadrant. No pneumothorax is identified. There is a stable left basilar opacity ob scuring the hemidiaphragm. CONCLUSION: Stable chest x-ray with left basilar opacity representing either atelectasis, consolidation, and/or e ffusion. Right chest tube remains present and no pneumothorax is seen. Electronically signed by: Trung Burris MD Board Certified Radiologist 08/21/2018 3:43 AM EST
[2018-08-21 04:07] LABS: Hematocrit 27.8 % (35.0-46.0); Hemoglobin 9.2 gm/dL (11.6-15.3); Mean Corpuscular HGB Conc 33.2 % (32.0-36.0); Mean Corpuscular Hemoglobin 24.1 pg (27.0-34.0); Mean Corpuscular Volume 72.8 fL (80.0-100.0); Mean Platelet Volume 10.7 fL (7.0-11.0); Platelet Count 124 th/mm3 (150-450); Red Blood Count 3.81 mil/mm3 (4.00-5.30); Red Cell Distribution Width 18.8 % (11.6-17.2); White Blood Count 8.9 th/mm3 (4.0-11.0)
[2018-08-21] MEDS: Bumetanide Inj 25 MG/100 ML BAG IV.CONT SCH ×3 (04:12→20:42)
[2018-08-21 04:31] LABS: Alanine Aminotransferase 20 U/L (10-53); Albumin 4.2 g/dL (3.4-5.0); Anion Gap 12 meq/L (5-15); Aspartate Aminotransferase 23 U/L (15-37); Blood Urea Nitrogen 76 mg/dL (7-18); Calcium 8.8 mg/dL (8.5-10.1); Carbon Dioxide 31.8 meq/L (21.0-32.0); Chloride 104 meq/L (98-107); Glomerular Filtration Rate 20 mL/min (>89); Glucose,Random 97 mg/dL (74-106); Magnesium 1.9 mg/dL (1.5-2.5); Potassium 3.1 meq/L (3.5-5.1); Sodium 148 meq/L (136-145)
[2018-08-21 04:33] LABS: Alkaline Phosphatase 37 U/L (45-117); Total Protein 6.2 g/dL (6.4-8.2)
[2018-08-21] MEDS: Albumin Human 25% Inj 100 ML IV.SIG SCH ×3 (05:34→17:04)
[2018-08-21] MEDS: Sodium Bicarbonate 650 MG Tablet PO SCH ×3 (08:04→17:01)
[2018-08-21] MEDS: Senna/Docusate Sodium 8.6/50 MG Tablet PO SCH ×2 (08:04→20:01)
--- NOTE | 2018-08-21 09:53 | P.PNFP ---
Subjective Interval history: Patient was seen at bedside this morning. There were no acute events overnight. Patient continues to be intubated and mechanically ventilated and unable to communicate with the team at this time. was at bedside and reports that all of his questions have been answered and has no further questions for the team. <Dru Jane - 08/21/18 09:53> Results - Labs Result diagrams: 08/21/18 03:05 08/21/18 03:05 <Amelia Phoenix - 08/21/18 20:16> Abnormal lab results 08/21/18 08/21/18 Range/Units 03:05 03:05 RBC 3.81 L (4.00-5.30) mil/mm3 Hgb 9.2 L (11.6-15.3) gm/dL Hct 27.8 L (35.0-46.0) % MCV 72.8 L (80.0-100.0) fL MCH 24.1 L (27.0-34.0) pg RDW 18.8 H (11.6-17.2) % Plt Count 124 L (150-450) th/mm3 Sodium 148 H (136-145) meq/L Potassium 3.1 L (3.5-5.1) meq/L BUN 76 H (7-18) mg/dL Creatinine 2.82 H (0.50-1.00) mg/dL Estimated GFR 20 L (>89) mL/min Total Bilirubin 5.3 H (0.2-1.0) mg/dL Alkaline Phosphatase 37 L (45-117) U/L Total Protein 6.2 L (6.4-8.2) g/dL Short CBC 08/21/18 Range/Units 03:05 WBC 8.9 (4.0-11.0) th/mm3 Hgb 9.2 L (11.6-15.3) gm/dL Hct 27.8 L (35.0-46.0) % Plt Count 124 L (150-450) th/mm3 BMP 08/21/18 03:05 Sodium 148 H Potassium 3.1 L Chloride 104 Carbon Dioxide 31.8 BUN 76 H Creatinine 2.82 H Calcium 8.8 Liver Function 08/21/18 Range/Units 03:05 Total Bilirubin 5.3 H (0.2-1.0) mg/dL AST 23 (15-37) U/L ALT 20 (10-53) U/L Alkaline Phosphatase 37 L (45-117) U/L Albumin 4.2 (3.4-5.0) g/dL <Amelia Phoenix - 08/21/18 20:16> Abnormal lab results 08/20/18 08/21/18 08/21/18 Range/Units 10:40 03:05 03:05 RBC 3.81 L (4.00-5.30) mil/mm3 Hgb 9.2 L (11.6-15.3) gm/dL Hct 27.8 L (35.0-46.0) % MCV 72.8 L (80.0-100.0) fL MCH 24.1 L (27.0-34.0) pg RDW 18.8 H (11.6-17.2) % Plt Count 124 L (150-450) th/mm3 Sodium 148 H (136-145) meq/L Potassium 3.1 L (3.5-5.1) meq/L BUN 76 H (7-18) mg/dL Creatinine 2.82 H (0.50-1.00) mg/dL Estimated GFR 20 L (>89) mL/min Total Bilirubin 5.3 H (0.2-1.0) mg/dL Alkaline Phosphatase 37 L (45-117) U/L Total Protein 6.2 L (6.4-8.2) g/dL Pleural RBC 2064 H (0-0) /mm3 Pleural Nuc Cells 270 H (0-10) /mm3 Short CBC 08/21/18 Range/Units 03:05 WBC 8.9 (4.0-11.0) th/mm3 Hgb 9.2 L (11.6-15.3) gm/dL Hct 27.8 L (35.0-46.0) % Plt Count 124 L (150-450) th/mm3 BMP 08/21/18 03:05 Sodium 148 H Potassium 3.1 L Chloride 104 Carbon Dioxide 31.8 BUN 76 H Creatinine 2.82 H Calcium 8.8 Liver Function 08/21/18 Range/Units 03:05 Total Bilirubin 5.3 H (0.2-1.0) mg/dL AST 23 (15-37) U/L ALT 20 (10-53) U/L Alkaline Phosphatase 37 L (45-117) U/L Albumin 4.2 (3.4-5.0) g/dL <Dru Jane - 08/21/18 09:53> - Imaging Impressions Chest X-Ray 08/21/18 06:00 CONCLUSION: Stable chest x-ray with left basilar opacity representing either atelectasis, consolidation, and/or effusion. Right chest tube remains present and no pneumothorax is seen. <Amelia Phoenix - 08/21/18 20:16> Impressions Chest X-Ray 08/20/18 00:00 CONCLUSION: Satisfactory tube and line positioning. Improving aeration. Chest X-Ray 08/21/18 06:00 CONCLUSION: Stable chest x-ray with left basilar opacity representing either atelectasis, consolidation, and/or effusion. Right chest tube remains present and no pneumothorax is seen. <Dru Jane - 08/21/18 09:53> Physical Exam Vital signs: Vital Signs 08/20/18 20:25 08/20/18 21:00 08/20/18 22:00 Temperature Pulse Rate 93 H 94 H Respiratory Rate 13 14 14 Blood Pressure 105/76 Pulse Oximetry 99 99 99 08/20/18 23:00 08/21/18 00:00 08/21/18 00:24 Temperature 98.5 F Pulse Rate 94 H 92 H Respiratory Rate 16 14 Blood Pressure 104/72 Pulse Oximetry 99 99 99 08/21/18 01:00 08/21/18 02:00 08/21/18 03:00 Temperature Pulse Rate 95 H 93 H 92 H Respiratory Rate 15 14 Blood Pressure 100/73 Pulse Oximetry 99 99 99 08/21/18 03:26 08/21/18 04:00 08/21/18 05:00 Temperature 98.5 F Pulse Rate 89 88 Respiratory Rate 14 Blood Pressure 105/80 Pulse Oximetry 100 100 99 08/21/18 06:00 08/21/18 07:00 08/21/18 07:40 Temperature Pulse Rate 101 H 98 H Respiratory Rate 17 Blood Pressure 120/93 H Pulse Oximetry 99 99 99 08/21/18 08:00 08/21/18 09:00 08/21/18 10:00 Temperature 98.0 F Pulse Rate 92 H 91 H 91 H Respiratory Rate Blood Pressure 98/71 L 104/75 Pulse Oximetry 100 100 100 08/21/18 10:01 08/21/18 11:00 08/21/18 12:00 Temperature 96.4 F L Pulse Rate 85 92 H Respiratory Rate 18 Blood Pressure 97/74 L Pulse Oximetry 100 100 100 08/21/18 13:00 08/21/18 13:08 08/21/18 14:00 Temperature Pulse Rate 96 H 94 H Respiratory Rate 22 Blood Pressure Pulse Oximetry 100 100 100 08/21/18 14:18 08/21/18 15:00 08/21/18 16:00 Temperature 99.2 F Pulse Rate 94 H 96 H 101 H Respiratory Rate Blood Pressure 101/69 Pulse Oximetry 100 100 100 08/21/18 16:09 08/21/18 17:00 08/21/18 18:00 Temperature 99.2 F Pulse Rate 104 H 109 H Respiratory Rate 19 Blood Pressure Pulse Oximetry 100 100 100 08/21/18 19:00 08/21/18 19:38 Temperature Pulse Rate 110 H Respiratory Rate 21 Blood Pressure Pulse Oximetry 99 98 Intake & Output 08/21/18 08/21/18 08/22/18 06:59 18:59 06:59 Intake Total 586 / 586 1116 / 1116 200 / 200 Output Total 1790 / 1790 1999 / 1999 Balance -1204 / -1204 -884 / -884 200 / 200 Weight 79 kg Intake: IV 388 / 388 650 / 650 200 / 200 Bumex Inj 25 mg In 100 ml @ 2 88 / 88 100 / 100 MG/HR 8 mls/hr IV.CONT .[id number] ANAHI Rx#:[id number] Flexbumin 25% Inj 100 ML @ 60 200 / 200 100 / 100 100 / 100 mls/hr IV.SIG Q6HR ANAHI Rx#: [id number] Azithromycin Inj 500 MG In NS 250 / 250 Inj 250 ML @ 250 mls/hr IV.SIG Q24H ANAHI Rx#:[id number] Maxipime Inj 2,000 MG In NS Inj 100 / 100 100 ML @ 200 mls/hr IV.SIG Q24H ANAHI Rx#:[id number] Flagyl 500 MG Inj 100 ML @ 100 100 / 100 100 / 100 100 / 100 mls/hr IV.SIG Q8H ANAHI Rx#: [id number] Tube Feeding 168 / 168 426 / 426 Tube Irrigant 40 / 40 Water Bolus Amount 30 / 30 Output: Urine Amount (Catheter) 1300 / 1300 1250 / 1250 Indwelling Urethral Catheter 1300 / 1300 1250 / 1250 Chest Tube Drainage 490 / 490 750 / 750 Right Mid-Axillary Chest 490 / 490 750 / 750 Other: Date of Last Bowel Movement 08/21/18 <Amelia Phoenix - 08/21/18 20:16> Vital Signs 08/20/18 10:00 08/20/18 11:00 08/20/18 11:47 Temperature Pulse Rate 97 H 91 H Respiratory Rate 19 Blood Pressure 108/70 Pulse Oximetry 100 98 98 08/20/18 12:00 08/20/18 13:00 08/20/18 14:00 Temperature 98.0 F Pulse Rate 91 H 92 H 92 H Respiratory Rate Blood Pressure 104/74 94/68 L Pulse Oximetry 98 99 98 08/20/18 15:00 08/20/18 15:49 08/20/18 16:00 Temperature 98.2 F Pulse Rate 88 96 H Respiratory Rate 14 Blood Pressure 100/73 Pulse Oximetry 97 97 97 08/20/18 17:00 08/20/18 18:00 08/20/18 19:00 Temperature Pulse Rate 96 H 96 H 96 H Respiratory Rate 20 Blood Pressure 89/67 L Pulse Oximetry 98 99 99 08/20/18 20:00 08/20/18 20:25 08/20/18 21:00 Temperature 99.0 F Pulse Rate 95 H 93 H Respiratory Rate 20 13 14 Blood Pressure 96/74 L Pulse Oximetry 99 99 99 08/20/18 22:00 08/20/18 23:00 08/21/18 00:00 Temperature 98.5 F Pulse Rate 94 H 94 H 92 H Respiratory Rate 14 16 Blood Pressure 105/76 104/72 Pulse Oximetry 99 99 99 08/21/18 00:24 08/21/18 01:00 08/21/18 02:00 Temperature Pulse Rate 95 H 93 H Respiratory Rate 14 15 14 Blood Pressure 100/73 Pulse Oximetry 99 99 99 08/21/18 03:00 08/21/18 03:26 08/21/18 04:00 Temperature 98.5 F Pulse Rate 92 H 89 Respiratory Rate 14 Blood Pressure 105/80 Pulse Oximetry 99 100 100 08/21/18 05:00 08/21/18 06:00 08/21/18 07:00 Temperature Pulse Rate 88 101 H 98 H Respiratory Rate Blood Pressure 120/93 H Pulse Oximetry 99 99 99 08/21/18 07:40 08/21/18 08:00 08/21/18 09:00 Temperature 98.0 F Pulse Rate 92 H 91 H Respiratory Rate 17 Blood Pressure 98/71 L Pulse Oximetry 99 100 100 Intake & Output 08/20/18 08/21/18 08/21/18 18:59 06:59 18:59 Intake Total 1050 / 1050 586 / 586 Output Total 3560 / 3560 1790 / 1790 Balance -2510 / -2510 -1204 / -1204 Weight 79 kg Intake: IV 1050 / 1050 388 / 388 Bumex Inj 25 mg In 100 ml @ 2 100 / 100 88 / 88 MG/HR 8 mls/hr IV.CONT .[id number] ANAHI Rx#:[id number] Versed Inj 100 mg In 100 ml @ 2 100 / 100 MG/HR 2 mls/hr IV.CONT TITRATE PRN Rx#:[id number] Flexbumin 25% Inj 100 ML @ 60 300 / 300 200 / 200 mls/hr IV.SIG Q6HR ANAHI Rx#: [id number] Azithromycin Inj 500 MG In NS 250 / 250 Inj 250 ML @ 250 mls/hr IV.SIG Q24H ANAHI Rx#:[id number] Maxipime Inj 2,000 MG In NS Inj 100 / 100 100 ML @ 200 mls/hr IV.SIG Q24H ANAHI Rx#:[id number] Flagyl 500 MG Inj 100 ML @ 100 200 / 200 100 / 100 mls/hr IV.SIG Q8H ANAHI Rx#: [id number] Tube Feeding 168 / 168 Water Bolus Amount 30 / 30 Output: Urine Amount (Catheter) 1900 / 1900 1300 / 1300 Indwelling Urethral Catheter 1900 / 1900 1300 / 1300 Chest Tube Drainage 1660 / 1660 490 / 490 Right Mid-Axillary Chest 1660 / 1660 490 / 490 Other: Date of Last Bowel Movement 08/21/18 <Dru Jane - 08/21/18 09:53> Narrative: GENERAL: Intubated and mechanically ventilated on 30% FiO2. SKIN: warm and dry. HEAD: Normocephalic. NECK: Intubated, central line in left jugular. CARDIOVASCULAR: Regular rate and rhythm with no murmurs, rubs or gallops. RESPIRATORY: Clear to auscultation bilaterally, chest tube in place on right side. GASTROINTESTINAL: Abdomen soft, non-tender, nondistended. Bradley in place. EXTREMITIES: Much improved lower extremity edema. NEUROLOGICAL: Not responsive on sedation. <Dru Jane 08/21/18 12:05> - Urinary Catheter Management Indwelling Urethral Catheter Cath placed during this visit: no <Amelia Phoenix 08/21/18 20:16> no <Dru Jane 08/21/18 12:05> Reason for continuing: Hourly intake/output <Dru Jane 08/21/18 09:53 > Assessment and Plan - Assessment (1) Severe sepsis Code(s): A41.9 - Sepsis, unspecified organism; R65.20 - Severe sepsis without septic shock Status: Acute (2) Pneumonia Code(s): J18.9 - Pneumonia, unspecified organism Status: Acute (3) Acute exacerbation of CHF (congestive heart failure) Code(s): I50.9 - Heart failure, unspecified Status: Acute (4) Acute on chronic kidney failure Code(s): N17.9 - Acute kidney failure, unspecified; N18.9 - Chronic kidney disease, unspecified Status: Acute (5) Pleural effusion Code(s): J90 - Pleural effusion, not elsewhere classified Status: Acute (6) PEA (Pulseless electrical activity) Code(s): I46.9 - Cardiac arrest, cause unspecified Status: Resolved (7) Elevated troponin Code(s): R74.8 - Abnormal levels of other serum enzymes Status: Acute (8) Nutrition, metabolism, and development symptoms Code(s): R63.8 - Other symptoms and signs concerning food and fluid intake Status: Acute <Amelia Phoenix 08/21/18 20:16> (1) Severe sepsis Code(s): A41.9 - Sepsis, unspecified organism; R65.20 - Severe sepsis without septic shock Status: Acute Plan: Community-acquired pneumonia complicated by lower extremity edema in the setting of CHF with an EF of 20%. Patient status post thoracentesis for pleural effusion. -Intubated mechanically ventilated -Patient continues to require pressor support with Levophed -Blood cultures (08/15): No growth to date -Pleural fluid Gram stain and cultures no growth to date -Metabolic encephalopathy secondary to sepsis, without evidence of significant anoxic injury from PEA arrest -Remains afebrile, WBC count within normal limits Plan: Per Epitaxial Reactor Technician: Continue - Flagyl 500 mg every 8h (08/15) - Cefepime 2000 mg every 8 hours (08/15) (2) Pneumonia Code(s): J18.9 - Pneumonia, unspecified organism Status: Acute Plan: Community acquired right-sided pneumonia with lactic acidosis. -DuoNeb every 2 hours as needed -Sputum culture uncollected -Respiratory panel uncollected -Continue with antibiotics per critical care team as dictated above -Repeat CXR 08/21 Stable chest x-ray with left basilar opacity representing either atelectasis, consolidation, and/or effusion. Right chest tube remains present and no pneumothorax is seen (3) Acute exacerbation of CHF (congestive heart failure) Code(s): I50.9 - Heart failure, unspecified Status: Acute Plan: -BNP 4000 on admission -Patient being diuresed with Bumex IV -Lower extremity edema greatly improved -Echo 08/17: EF 20%, fairly dilated left ventricle, severe mitral regurgitation -Patient diuresed 4 L over last 48 hours -Urine output is still poor at .095 ml/kg -Cardiology following and agree with current plan Per cardiology prognosis is poor. (4) Acute on chronic kidney failure Code(s): N17.9 - Acute kidney failure, unspecified; N18.9 - Chronic kidney disease, unspecified Status: Acute Plan: This patient stage III CKD with elevated creatinine above baseline on admission. Possibly due to decrease intravascular volume in the setting of sepsis. -Creatinine on admission 2.72 from baseline of 1.5. -Creatinine stable 2.82 this morning -Urine output over 4,000 mL in the last 24 hours, urine output -Nephrology Dr. James following Plan: -Continue Bumex infusion at 2 mg/h -Trend kidney function -trend I/O -Hemodialysis not recommended by nephrology at this time -Nephrology following, appreciate rec Per nephrology prognosis is poor (5) Pleural effusion Code(s): J90 - Pleural effusion, not elsewhere classified Status: Acute Plan: Patient status post right sided thoracentesis (08/16/18) with evacuation of approximately 950 ml of slightly cloudy, yellow colored fluid was removed. -Patient underwent therapeutic right sided chest tube placement with pigtail that drained 950ml of slightly cloudy yellow fluid. -08/16: Pleural fluid showed 1,333 red blood cells with 230 nucleated cells. Fluid consistent with transudative process. Cultures show no growth to date. Plan: -Chest tube draining approx 3,200 ml in last 24 hours -Monitor chest tube output -Continue pulmonary care as stated above (6) PEA (Pulseless electrical activity) Code(s): I46.9 - Cardiac arrest, cause unspecified Status: Resolved Plan: Patient required ACLS for 9 minutes on 08/16/18 for PEA arrest -ROSC was achieved by critical care medicine Patient was intubated and sedated and treated with pressor support See treatment for severe sepsis (7) Elevated troponin Code(s): R74.8 - Abnormal levels of other serum enzymes Status: Acute Plan: Initial troponins of admission 0.10 with no chest pain or ST elevation or depression on EKG. ACS versus elevated troponins in the setting of chronic kidney disease and increased cardiac demand. Patient in SVT on admission now resolved. -EKG: Initial EKG showed supraventricular tachycardia -Chest x-ray consolidation right midlung and cardiomegaly -Initial troponin 0.10--> 0.45 Plan: -Plan to recheck troponins after patient is stabilized (8) Nutrition, metabolism, and development symptoms Code(s): R63.8 - Other symptoms and signs concerning food and fluid intake Status: Acute Plan: Fluids: Per matchbook assembler Electrolytes: Replete as needed Nutrition: Tube feeds with Nepro DVT prophylaxis: Hold Coumadin <Dru Jane - 08/21/18 11:56> - Attending Attestation Patient seen and examined this morning, discussed with resident team. I agree with assessment and management as documented and discussed with me. Pt remains intubated and sedated. at bedside; he explains clinical course well and has no questions at this time. <Amelia Phoenix - 08/21/18 20:16> <Dru Jane O - Last Filed: 08/21/18 11:56> (3) Acute exacerbation of CHF (congestive heart failure) Qualifiers: Heart failure type: systolic Qualified Code(s): I50.23 - Acute on chronic systolic (congestive) heart failure (4) Acute on chronic kidney failure Qualifiers: Acute renal failure type: unspecified Chronic kidney disease stage: stage 4 ( severe) Qualified Code(s): N17.9 - Acute kidney failure, unspecified; N18.4 - Chronic kidney disease, stage 4 (severe) <Amelia Phoenix - Last Filed: 08/21/18 20:16> (3) Acute exacerbation of CHF (congestive heart failure) Qualifiers: Heart failure type: systolic Qualified Code(s): I50.23 - Acute on chronic systolic (congestive) heart failure (4) Acute on chronic kidney failure Qualifiers: Acute renal failure type: unspecified Chronic kidney disease stage: stage 4 ( severe) Qualified Code(s): N17.9 - Acute kidney failure, unspecified; N18.4 - Chronic kidney disease, stage 4 (severe) <Dru Jane - Last Filed: 08/21/18 11:56> (3) Acute exacerbation of CHF (congestive heart failure) Qualifiers: Heart failure type: systolic Qualified Code(s): I50.23 - Acute on chronic systolic (congestive) heart failure (4) Acute on chronic kidney failure Qualifiers: Acute renal failure type: unspecified Chronic kidney disease stage: stage 4 ( severe) Qualified Code(s): N17.9 - Acute kidney failure, unspecified; N18.4 - Chronic kidney disease, stage 4 (severe) <Amelia Phoenix - Last Filed: 08/21/18 20:16> (3) Acute exacerbation of CHF (congestive heart failure) Qualifiers: Heart failure type: systolic Qualified Code(s): I50.23 - Acute on chronic systolic (congestive) heart failure (4) Acute on chronic kidney failure Qualifiers: Acute renal failure type: unspecified Chronic kidney disease stage: stage 4 ( severe) Qualified Code(s): N17.9 - Acute kidney failure, unspecified; N18.4 - Chronic kidney disease, stage 4 (severe)
--- NOTE | 2018-08-21 10:20 | P.PNCA ---
Subjective Interval history: No acute changes noted overnight. is at bedside. Continues on bumex drip. Right Chest tube placed yesterday. Pt remains intubated, weaned off sedation. Medications and Allergies Allergies Allergy/AdvReac Type Severity Reaction Status Date / Time iodine Allergy Severe sneezing, Verified 08/15/18 08:37 chest tightness potassium iodide Allergy Severe sneezing, Verified 08/15/18 08:37 chest tightness povidone-iodine Allergy Severe sneezing, Verified 08/15/18 08:37 chest tightness sodium iodide Allergy Severe sneezing, Verified 08/15/18 08:37 chest tightness sodium iodide Allergy Severe sneezing, Verified 08/15/18 08:37 chest tightness sulfamethoxazole Allergy Intermediate abdominal Verified 08/15/18 08:37 pain trimethoprim Allergy Intermediate abdominal Verified 08/15/18 08:37 pain hydralazine Allergy Unknown Edema Verified 08/15/18 08:37 Statins Allergy Intermediate Hives Uncoded 08/15/18 08:37 Home Medications Medication Instructions Recorded Confirmed Type bumetanide 2 mg PO DAILY 05/21/18 08/15/18 History carvedilol 25 mg PO BID 05/21/18 08/15/18 History potassium chloride 20 meq PO DAILY 05/21/18 08/15/18 History spironolactone 50 mg PO DAILY 05/21/18 08/15/18 History warfarin 2 mg PO DAILY 08/15/18 08/15/18 History Active Medications: Active Medications Acetaminophen (Tylenol) 650 mg PO Q4H PRN PRN Reason: Temp > 100.4 Al Hydroxide/Mg Hydroxide (Milk Of Everardo Zelaya) 30 ml PO Q12H PRN PRN Reason: Mild Constipation Bisacodyl (Dulcolax Supp) 10 mg RECTAL DAILY PRN PRN Reason: SEVERE CONSITIPATION Azithromycin 500 mg/ Sodium (Chloride) 250 mls @ 250 mls/hr IV.SIG Q24H [facility] Last Infusion: 08/20/18 18:39 Dose: Infused Metronidazole/Sodium Chloride (Flagyl 500 Mg Inj) 100 mls @ 100 mls/hr IV.SIG Q8H [facility] Last Admin: 08/21/18 07:57 Dose: 100 mls/hr Norepinephrine Bitartrate (Levophed-Dextrose 4 Mg/250 Ml Drip) 4 mg in 250 mls @ 7.5 mls/hr IV.SIG TITRATE PRN; Protocol PRN Reason: Per Protocol Last Titration: 08/20/18 05:33 Dose: 0 mcg/min, 0 mls/hr Albumin Human (Flexbumin 25% Inj) 100 mls @ 60 mls/hr IV.SIG Q6HR ANA[facility] Last Infusion: 08/21/18 06:35 Dose: Infused Cefepime HCl 2,000 mg/ Sodium (Chloride) 100 mls @ 200 mls/hr IV.SIG Q24H [facility]NA[facility] Last Admin: 08/21/18 07:56 Dose: 100 mls/hr Epinephrine HCl 2 mg/ Dextrose 250 mls @ 22.5 mls/hr IV.CONT TITRATE PRN; Protocol PRN Reason: Per Protocol Last Titration: 08/17/18 06:30 Dose: 0 mcg/min, 0 mls/hr Propofol (Diprivan 1000 Mg/100 Ml Inj) 1,000 mg in 100 mls @ 2.565 mls/hr IV.CONT TITRATE PRN; Protocol PRN Reason: Per Protocol Last Titration: 08/18/18 14:52 Dose: Infused Diltiazem HCl 125 mg/ Sodium (Chloride) 125 mls @ 5 mls/hr IV.CONT TITRATE PRN ; Protocol PRN Reason: Per Protocol Milrinone Lactate 20 mg/ (Sodium Chloride) 100 mls @ 0.89 mls/hr IV.CONT .Q24H ANAHI; Protocol Last Admin: 08/20/18 11:10 Dose: Not Given Midazolam HCl (Versed Inj) 100 mg in 100 mls @ 2 mls/hr IV.CONT TITRATE PRN; Protocol PRN Reason: See protocol Last Titration: 08/20/18 13:30 Dose: 0 mg/hr, 0 mls/hr Bumetanide (Bumex Inj) 25 mg in 100 mls @ 8 mls/hr IV.CONT .[id number] ANAHI Last Admin: 08/21/18 04:12 Dose: 2 mg/hr, 8 mls/hr Lactulose (Lactulose Liq) 30 ml PO DAILY PRN PRN Reason: SEVERE CONSITIPATION Ondansetron HCl (Zofran Inj) 4 mg IV.PUSH Q6H PRN PRN Reason: NAUSEA OR VOMITING Last Admin: 08/16/18 14:05 Dose: 4 mg Ondansetron HCl (Zofran Odt) 4 mg PO Q6H PRN PRN Reason: NAUSEA OR VOMITING Potassium Chloride (K-Dur) 20 meq PO DAILY [facility] Last Admin: 08/21/18 08:04 Dose: 20 meq Promethazine HCl (Phenergan) 25 mg PO Q6H PRN PRN Reason: NAUSEA OR VOMITING Promethazine HCl (Phenergan Supp) 25 mg RECTAL Q6H PRN PRN Reason: NAUSEA OR VOMITING Senna/Docusate Sodium (Aleyda-Colace) 1 tab PO BID [facility] Last Admin: 08/21/18 08:04 Dose: Not Given Sennosides (Senokot) 17.2 mg PO Q12H PRN PRN Reason: Moderate Constipation Sodium Bicarbonate (Sodium Bicarbonate) 650 mg PO TID [facility] Last Admin: 08/21/18 08:04 Dose: 650 mg Sodium Chloride (Ns Flush) 2 ml IV.FLUSH BID [facility] Last Admin: 08/21/18 08:05 Dose: 2 ml Sodium Chloride (Ns Flush) 2 ml IV.FLUSH UNSCH PRN PRN Reason: FLUSH AFTER USING IV ACCESS Terbutaline Sulfate (Brethine Inj) 1 mg SQ UNSCH PRN PRN Reason: For Extravasation Physical Exam Vital signs: Vital Signs 08/20/18 11:00 08/20/18 11:47 08/20/18 12:00 Temperature 98.0 F Pulse Rate 91 H 91 H Respiratory Rate 19 Blood Pressure 104/74 Pulse Oximetry 98 98 98 08/20/18 13:00 08/20/18 14:00 08/20/18 15:00 Temperature Pulse Rate 92 H 92 H 88 Respiratory Rate Blood Pressure 94/68 L Pulse Oximetry 99 98 97 08/20/18 15:49 08/20/18 16:00 08/20/18 17:00 Temperature 98.2 F Pulse Rate 96 H 96 H Respiratory Rate 14 Blood Pressure 100/73 Pulse Oximetry 97 97 98 08/20/18 18:00 08/20/18 19:00 08/20/18 20:00 Temperature 99.0 F Pulse Rate 96 H 96 H 95 H Respiratory Rate 20 20 Blood Pressure 89/67 L 96/74 L Pulse Oximetry 99 99 99 08/20/18 20:25 08/20/18 21:00 08/20/18 22:00 Temperature Pulse Rate 93 H 94 H Respiratory Rate 13 14 14 Blood Pressure 105/76 Pulse Oximetry 99 99 99 08/20/18 23:00 08/21/18 00:00 08/21/18 00:24 Temperature 98.5 F Pulse Rate 94 H 92 H Respiratory Rate 16 14 Blood Pressure 104/72 Pulse Oximetry 99 99 99 08/21/18 01:00 08/21/18 02:00 08/21/18 03:00 Temperature Pulse Rate 95 H 93 H 92 H Respiratory Rate 15 14 Blood Pressure 100/73 Pulse Oximetry 99 99 99 08/21/18 03:26 08/21/18 04:00 08/21/18 05:00 Temperature 98.5 F Pulse Rate 89 88 Respiratory Rate 14 Blood Pressure 105/80 Pulse Oximetry 100 100 99 08/21/18 06:00 08/21/18 07:00 08/21/18 07:40 Temperature Pulse Rate 101 H 98 H Respiratory Rate 17 Blood Pressure 120/93 H Pulse Oximetry 99 99 99 08/21/18 08:00 08/21/18 09:00 08/21/18 10:01 Temperature 98.0 F Pulse Rate 92 H 91 H Respiratory Rate 18 Blood Pressure 98/71 L Pulse Oximetry 100 100 100 Intake & Output 08/20/18 08/21/18 08/21/18 18:59 06:59 18:59 Intake Total 1050 / 1050 586 / 586 Output Total 3560 / 3560 1790 / 1790 Balance -2510 / -2510 -1204 / -1204 Weight 79 kg Intake: IV 1050 / 1050 388 / 388 Bumex Inj 25 mg In 100 ml @ 2 100 / 100 88 / 88 MG/HR 8 mls/hr IV.CONT .[id number] ANAHI Rx#:[id number] Versed Inj 100 mg In 100 ml @ 2 100 / 100 MG/HR 2 mls/hr IV.CONT TITRATE PRN Rx#:[id number] Flexbumin 25% Inj 100 ML @ 60 300 / 300 200 / 200 mls/hr IV.SIG Q6HR ANAHI Rx#: [id number] Azithromycin Inj 500 MG In NS 250 / 250 Inj 250 ML @ 250 mls/hr IV.SIG Q24H A[facility] Rx#:[id number] Maxipime Inj 2,000 MG In NS Inj 100 / 100 100 ML @ 200 mls/hr IV.SIG Q24H ANA[facility] Rx#:[id number] Flagyl 500 MG Inj 100 ML @ 100 200 / 200 100 / 100 mls/hr IV.SIG Q8H [facility] Rx#: [id number] Tube Feeding 168 / 168 Water Bolus Amount 30 / 30 Output: Urine Amount (Catheter) 1900 / 1900 1300 / 1300 Indwelling Urethral Catheter 1900 / 1900 1300 / 1300 Chest Tube Drainage 1660 / 1660 490 / 490 Right Mid-Axillary Chest 1660 / 1660 490 / 490 Other: Date of Last Bowel Movement 08/21/18 - Constitutional average body habitus, obtunded Comments: ill appearing, intubated. - Routine HEENT Exam Head: Present: normocephalic, atraumatic ENT: Present: mucous membranes moist - Routine Neck Exam Present: supple Comments: intubated, central line left jugular - Routine Respiratory Exam Present: patient mechanically ventilated - Routine Cardiovascular Exam Present: tachycardia - Routine Abdominal Exam Present: soft - Routine Extremities Exam Present: normal capillary refill - Routine Skin Exam Present: intact - Routine Neurological Exam non responsive, intubated - Routine Psychiatric Exam Present: unable to assess - Urinary Catheter Management Indwelling Urethral Catheter Cath placed during this visit: no Reason for continuing: Hourly intake/output Results 08/21/18 03:05 08/21/18 03:05 Cardiac Enzymes 08/19/18 08/20/18 08/21/18 Range/Units 17:00 05:18 03:05 AST 35 30 23 (15-37) U/L Coagulation 08/20/18 Range/Units 08:46 PT 23.1 H (9.8-11.6) sec CBC 08/20/18 08/21/18 Range/Units 05:18 03:05 WBC 8.6 8.9 (4.0-11.0) th/mm3 RBC 3.75 L 3.81 L (4.00-5.30) mil/mm3 Hgb 9.0 L 9.2 L (11.6-15.3) gm/dL Hct 27.7 L 27.8 L (35.0-46.0) % Plt Count 140 L 124 L (150-450) th/mm3 Comprehensive Metabolic Panel 08/19/18 08/20/18 08/21/18 Range/Units 17:00 05:18 03:05 Sodium 146 H 144 148 H (136-145) meq/L Potassium 3.5 3.6 3.1 L (3.5-5.1) meq/L Chloride 105 101 104 (98-107) meq/L Carbon Dioxide 24.7 27.2 31.8 (21.0-32.0) meq/L BUN 70 H 78 H 76 H (7-18) mg/dL Creatinine 2.92 H 3.19 H 2.82 H (0.50-1.00) mg/dL Calcium 8.1 L 9.3 D 8.8 (8.5-10.1) mg/dL AST 35 30 23 (15-37) U/L ALT 24 24 20 (10-53) U/L Alkaline Phosphatase 47 46 37 L (45-117) U/L Total Protein 5.9 L 6.2 L 6.2 L (6.4-8.2) g/dL Albumin 3.8 4.2 4.2 (3.4-5.0) g/dL Intake and Output 08/20/18 08/21/18 08/21/18 22:59 06:59 14:59 Intake Total 550 / 550 586 / 586 Output Total 3560 / 3560 1790 / 1790 Balance -3010 / -3010 -1204 / -1204 Intake: IV 550 / 550 388 / 388 Bumex Inj 25 mg In 100 ml @ 2 100 / 100 88 / 88 MG/HR 8 mls/hr IV.CONT .[id number] ANAHI Rx#:[id number] Flexbumin 25% Inj 100 ML @ 60 100 / 100 200 / 200 mls/hr IV.SIG Q6HR ANAHI Rx#: [id number] Azithromycin Inj 500 MG In NS 250 / 250 Inj 250 ML @ 250 mls/hr IV.SIG Q24H ANAHI Rx#:[id number] Flagyl 500 MG Inj 100 ML @ 100 100 / 100 100 / 100 mls/hr IV.SIG Q8H ANAHI Rx#: [id number] Tube Feeding 168 / 168 Water Bolus Amount 30 / 30 Output: Urine Amount (Catheter) 1900 / 1900 1300 / 1300 Indwelling Urethral Catheter 1900 / 1900 1300 / 1300 Chest Tube Drainage 1660 / 1660 490 / 490 Right Mid-Axillary Chest 1660 / 1660 490 / 490 Other: Date of Last Bowel Movement 08/21/18 Weight 79 kg - Imaging and Cardiology Imaging: Impressions Chest X-Ray 08/20/18 00:00 CONCLUSION: Satisfactory tube and line positioning. Improving aeration. Chest X-Ray 08/21/18 06:00 CONCLUSION: Stable chest x-ray with left basilar opacity representing either atelectasis, consolidation, and/or effusion. Right chest tube remains present and no pneumothorax is seen. Assessment and Plan - Plan Assessment PEA cardiac arrest Elevated troponin Cardiomyopathy Congestive heart failure Pleural effusions Sepsis Metabolic encephalopathy History of CVA History of pulmonary embolus Plan Patient is critically ill. We will continue with medical management at this time. INR was supratherapeutic when patient came in, Coumadin is currently on hold. Large right pleural effusion, status post chest tube placement yesterday, 2150 mL output. Prognosis is poor. Palliative care is following. The patient was seen and evaluated by Dr. Calixto who participated in care management and decision making. The exam, history, and the medical decision-making described in the above note were completed with the assistance of the mid-level provider. I reviewed and agree with the findings presented. I attest that I had a [id number] encounter with the patient on the same day, and personally performed and documented my assessment and findings in the medical record. Palliative care following. Code Status: Full Code Discussed Condition With: Dr. Calixto and patients
--- NOTE | 2018-08-21 11:12 | P.PNNP ---
Subjective Interval history: Patient was seen, no distress, at bedside. Patient unable to communicate. Patient remains orally intubated on mechanical ventilation, 30% FiO2. <Travis Carlton - Last Filed: 08/21/18 16:59> Physical Exam Vital signs: Vital Signs 08/20/18 11:47 08/20/18 12:00 08/20/18 13:00 Temperature 98.0 F Pulse Rate 91 H 92 H Respiratory Rate 19 Blood Pressure 104/74 Pulse Oximetry 98 98 99 08/20/18 14:00 08/20/18 15:00 08/20/18 15:49 Temperature Pulse Rate 92 H 88 Respiratory Rate 14 Blood Pressure 94/68 L Pulse Oximetry 98 97 97 08/20/18 16:00 08/20/18 17:00 08/20/18 18:00 Temperature 98.2 F Pulse Rate 96 H 96 H 96 H Respiratory Rate Blood Pressure 100/73 89/67 L Pulse Oximetry 97 98 99 08/20/18 19:00 08/20/18 20:00 08/20/18 20:25 Temperature 99.0 F Pulse Rate 96 H 95 H Respiratory Rate 20 20 13 Blood Pressure 96/74 L Pulse Oximetry 99 99 99 08/20/18 21:00 08/20/18 22:00 08/20/18 23:00 Temperature Pulse Rate 93 H 94 H 94 H Respiratory Rate 14 14 Blood Pressure 105/76 Pulse Oximetry 99 99 99 08/21/18 00:00 08/21/18 00:24 08/21/18 01:00 Temperature 98.5 F Pulse Rate 92 H 95 H Respiratory Rate 16 14 15 Blood Pressure 104/72 Pulse Oximetry 99 99 99 08/21/18 02:00 08/21/18 03:00 08/21/18 03:26 Temperature Pulse Rate 93 H 92 H Respiratory Rate 14 14 Blood Pressure 100/73 Pulse Oximetry 99 99 100 08/21/18 04:00 08/21/18 05:00 08/21/18 06:00 Temperature 98.5 F Pulse Rate 89 88 101 H Respiratory Rate Blood Pressure 105/80 120/93 H Pulse Oximetry 100 99 99 08/21/18 07:00 08/21/18 07:40 08/21/18 08:00 Temperature 98.0 F Pulse Rate 98 H 92 H Respiratory Rate 17 Blood Pressure 98/71 L Pulse Oximetry 99 99 100 08/21/18 09:00 08/21/18 10:00 08/21/18 10:01 Temperature Pulse Rate 91 H 91 H Respiratory Rate 18 Blood Pressure Pulse Oximetry 100 100 Intake & Output 08/20/18 08/21/18 08/21/18 18:59 06:59 18:59 Intake Total 1050 / 1050 586 / 586 Output Total 3560 / 3560 1790 / 1790 Balance -2510 / -2510 -1204 / -1204 Weight 79 kg Intake: IV 1050 / 1050 388 / 388 Bumex Inj 25 mg In 100 ml @ 2 100 / 100 88 / 88 MG/HR 8 mls/hr IV.CONT .[id number] ANAHI Rx#:[id number] Versed Inj 100 mg In 100 ml @ 2 100 / 100 MG/HR 2 mls/hr IV.CONT TITRATE PRN Rx#:[id number] Flexbumin 25% Inj 100 ML @ 60 300 / 300 200 / 200 mls/hr IV.SIG Q6HR ANA[facility] Rx#: [id number] Azithromycin Inj 500 MG In NS 250 / 250 Inj 250 ML @ 250 mls/hr IV.SIG Q24H ANA[facility] Rx#:[id number] Maxipime Inj 2,000 MG In NS Inj 100 / 100 100 ML @ 200 mls/hr IV.SIG Q24H ANAHI Rx#:[id number] Flagyl 500 MG Inj 100 ML @ 100 200 / 200 100 / 100 mls/hr IV.SIG Q8H ANA[facility] Rx#: [id number] Tube Feeding 168 / 168 Water Bolus Amount 30 / 30 Output: Urine Amount (Catheter) 1900 / 1900 1300 / 1300 Indwelling Urethral Catheter 1900 / 1900 1300 / 1300 Chest Tube Drainage 1660 / 1660 490 / 490 Right Mid-Axillary Chest 1660 / 1660 490 / 490 Other: Date of Last Bowel Movement 08/21/18 Narrative: GENERAL: Intubated and mechanically ventilated on 30% FiO2. SKIN: warm and dry. HEAD: Normocephalic. NECK: Intubated, central line in left jugular. CARDIOVASCULAR: Regular rate and rhythm with no murmurs, rubs or gallops. RESPIRATORY: Clear to auscultation bilaterally, chest tube in place on right side. GASTROINTESTINAL: Abdomen soft, non-tender, nondistended. On tube feeds. EXTREMITIES: Mild lower extremity edema. NEUROLOGICAL: Not responsive. - Urinary Catheter Management Indwelling Urethral Catheter Cath placed during this visit: yes Reason for continuing: Hourly intake/output Insertion date: 08/16/18 <Travis Carlton - Last Filed: 08/21/18 16:59> Vital signs: Vital Signs 08/21/18 09:00 08/21/18 10:00 08/21/18 10:01 Temperature Pulse Rate 91 H 91 H Respiratory Rate 18 Blood Pressure 104/75 Pulse Oximetry 100 100 100 08/21/18 11:00 08/21/18 12:00 08/21/18 13:00 Temperature 96.4 F L Pulse Rate 85 92 H 96 H Respiratory Rate Blood Pressure 97/74 L Pulse Oximetry 100 100 100 08/21/18 13:08 08/21/18 14:00 08/21/18 14:18 Temperature Pulse Rate 94 H 94 H Respiratory Rate 22 Blood Pressure 101/69 Pulse Oximetry 100 100 100 08/21/18 15:00 08/21/18 16:00 08/21/18 16:09 Temperature 99.2 F Pulse Rate 96 H 101 H Respiratory Rate 19 Blood Pressure Pulse Oximetry 100 100 100 08/21/18 17:00 08/21/18 18:00 08/21/18 19:00 Temperature 99.2 F Pulse Rate 104 H 109 H 110 H Respiratory Rate Blood Pressure Pulse Oximetry 100 100 99 08/21/18 19:38 08/21/18 20:00 08/21/18 21:00 Temperature 99.8 F H Pulse Rate 94 H 97 H Respiratory Rate 21 19 Blood Pressure Pulse Oximetry 98 100 100 08/21/18 22:00 08/21/18 23:00 08/22/18 00:00 Temperature 98.9 F Pulse Rate 95 H 96 H 95 H Respiratory Rate 19 Blood Pressure Pulse Oximetry 100 99 99 08/22/18 00:30 08/22/18 01:00 08/22/18 02:00 Temperature Pulse Rate 85 90 Respiratory Rate 18 Blood Pressure Pulse Oximetry 99 100 100 08/22/18 03:00 08/22/18 04:00 08/22/18 04:15 Temperature 98.6 F Pulse Rate 89 88 Respiratory Rate 16 Blood Pressure Pulse Oximetry 100 100 100 08/22/18 05:00 08/22/18 06:00 08/22/18 07:00 Temperature Pulse Rate 96 H 92 H 95 H Respiratory Rate Blood Pressure Pulse Oximetry 100 100 100 08/22/18 07:50 Temperature Pulse Rate Respiratory Rate 14 Blood Pressure Pulse Oximetry 100 Intake & Output 08/21/18 08/22/18 08/22/18 18:59 06:59 18:59 Intake Total 1116 / 1116 1182 / 1182 200 / 200 Output Total 1999 Balance -884 / -884 -843 / -843 200 / 200 Weight 74.5 kg Intake: IV 650 / 650 500 / 500 200 / 200 Bumex Inj 25 mg In 100 ml @ 2 100 / 100 100 / 100 MG/HR 8 mls/hr IV.CONT .[id number] ANA[facility] Rx#:[id number] Flexbumin 25% Inj 100 ML @ 60 100 / 100 200 / 200 100 / 100 mls/hr IV.SIG Q6HR ANA[facility] Rx#: [id number] Azithromycin Inj 500 MG In NS 250 / 250 Inj 250 ML @ 250 mls/hr IV.SIG Q24H A[facility] Rx#:[id number] Maxipime Inj 2,000 MG In NS Inj 100 / 100 100 ML @ 200 mls/hr IV.SIG Q24H ANA[facility] Rx#:[id number] KCl 20 mEq Premix Inj 20 meq In 100 / 100 100 ml @ 50 mls/hr IV.SIG Q2H ANAHI Rx#:[id number] Flagyl 500 MG Inj 100 ML @ 100 100 / 100 200 / 200 mls/hr IV.SIG Q8H A[facility] Rx#: [id number] Tube Feeding 426 / 426 502 / 502 Tube Irrigant 40 / 40 180 / 180 Output: Urine Amount (Catheter) 1250 / 1250 1425 / 1425 Indwelling Urethral Catheter 1250 / 1250 1425 / 1425 Chest Tube Drainage 750 / 750 600 / 600 Right Mid-Axillary Chest 750 / 750 600 / 600 Other: Date of Last Bowel Movement 08/21/18 08/21/18 # Bowel Movements 0 - Urinary Catheter Management Indwelling Urethral Catheter Cath placed during this visit: no <Pedro López - Last Filed: 08/22/18 08:59> Assessment and Plan - Assessment (1) Acute kidney injury superimposed on CKD Code(s): N17.9 - Acute kidney failure, unspecified; N18.9 - Chronic kidney disease, unspecified Status: Acute Plan: Patient previously coded had PEA arrest, patient is intubated. Renal function has fluctuated since admission, has improved today, Creatinine is 2.82. Poor candidate for renal replacement therapy. Remains on Bumex drip, monitor urine output. Monitor fluid and electrolytes. Avoid nephrotoxic agents. Prognosis is poor. Palliative care is following. (2) Acute exacerbation of congestive heart failure Code(s): I50.9 - Heart failure, unspecified Status: Acute Plan: Cardiology following and will continue with medical management at this time. She has cardiomyopathy EF 20%. (3) Elevated troponin Code(s): R74.8 - Abnormal levels of other serum enzymes Status: Acute Plan: Cardiology following. Per note review, will recheck levels once patient stable. (4) Severe sepsis Code(s): A41.9 - Sepsis, unspecified organism; R65.20 - Severe sepsis without septic shock Status: Acute Plan: Patient on Flagyl, Azithromycin, and Cefepime. (5) Pneumonia Code(s): J18.9 - Pneumonia, unspecified organism Status: Acute Plan: chest xray showed stable left basilar opacity representing either atelectasis, consolidations, and/or effusion. No pneumothorax. Patient has right chest tube in place. (6) Pleural effusion Code(s): J90 - Pleural effusion, not elsewhere classified Status: Acute Plan: Patient on Bumex drip. <Travis Carlton - Last Filed: 08/21/18 16:59> - Assessment (1) Acute kidney injury superimposed on CKD Code(s): N17.9 - Acute kidney failure, unspecified; N18.9 - Chronic kidney disease, unspecified Status: Acute (2) Acute exacerbation of congestive heart failure Code(s): I50.9 - Heart failure, unspecified Status: Acute (3) Elevated troponin Code(s): R74.8 - Abnormal levels of other serum enzymes Status: Acute (4) Severe sepsis Code(s): A41.9 - Sepsis, unspecified organism; R65.20 - Severe sepsis without septic shock Status: Acute (5) Pneumonia Code(s): J18.9 - Pneumonia, unspecified organism Status: Acute (6) Pleural effusion Code(s): J90 - Pleural effusion, not elsewhere classified Status: Acute - Attending Attestation patient was seen and examined on 08/21/18. Agree with above assessment and plan. Discussed with patient's . Her prognosis is poor. <Pedro López - Last Filed: 08/22/18 08:59>
[2018-08-21] MEDS: Azithromycin Inj 500 MG in Sodium Chlor 0.9% Inj 250 ML IV.SIG SCH (11:27)
--- NOTE | 2018-08-21 11:31 | P.PNPAL ---
Reason for Visit Reason for visit: a. To assist with evaluation and management of symptoms including: Shortness of breath, at risk for pain, debility b. To assist medical decision maker(s) with: better understanding of current medical conditions; weighing benefits/burdens of medical treatment options; making medical treatment decisions. Subjective Subjective/Interval History: Follow-up medically necessary for symptom management and family support. Patient seen and examined in the room in MICU in the presence of her . Patient remains intubated on mechanical ventilation, currently on spontaneous breathing trials. Vent settings CPAP 10/5/30% with O2 sats in the mid to high 90s. Patient has her eyes closed, briefly opens to noxious stimulation with not tracking. Patient not following commands. Sedation turned of this morning. Patient not showing any signs of pain. Chest x-ray on 08/21/18 revealed stable left basilar opacity representing either atelectasis, consolidations, and/or effusion. No pneumothorax. Right lateral chest tube to wall suction with yellow drainage in collection tubing. Patient remains on Bumex infusion at 2 mg every hour. Laboratory workup today 08/21/18 revealing sodium 148, potassium 3.1, BUN/creatinine 76/2.82, random glucose 97, total bilirubin 5.3, total protein 6.2, albumin 4.2. Patient spouse acknowledging that nephrology and other physicians have provided him with a medical update. Patient`s spouse, states that he feels encouraged that patient is currently on CPAP trials and continues to urinate. Discussed again patient's extensive cardiac history, failing renal function and pulmonary function and how patient will continue to face medical complications to her recovery if any. Explained ventilator weaning trials and importance of patient to be awake enough to protect her airway. Discussed patient's high risk for complications due to her ongoing comorbidities. It appears at this time that patient spouse Rey Funes (healthcare proxy) would like to continue with aggressive treatment. . Family/Friend Interactions: See interval note. . Advance Directives Living Will: Never completed Health Care Surrogate: Never completed Durable Power of Academic Advising Director: Never completed Health Care Surrogate Name and Number: HCP: Rey Funes -Spouse Documented care wishes:: Patient is never completed advanced directives. . Objective Vital Signs: Vital Signs 08/20/18 11:47 08/20/18 12:00 08/20/18 13:00 Temperature 98.0 F Pulse Rate 91 H 92 H Respiratory Rate 19 Blood Pressure 104/74 Pulse Oximetry 98 98 99 08/20/18 14:00 08/20/18 15:00 08/20/18 15:49 Temperature Pulse Rate 92 H 88 Respiratory Rate 14 Blood Pressure 94/68 L Pulse Oximetry 98 97 97 08/20/18 16:00 08/20/18 17:00 08/20/18 18:00 Temperature 98.2 F Pulse Rate 96 H 96 H 96 H Respiratory Rate Blood Pressure 100/73 89/67 L Pulse Oximetry 97 98 99 08/20/18 19:00 08/20/18 20:00 08/20/18 20:25 Temperature 99.0 F Pulse Rate 96 H 95 H Respiratory Rate 20 20 13 Blood Pressure 96/74 L Pulse Oximetry 99 99 99 08/20/18 21:00 08/20/18 22:00 08/20/18 23:00 Temperature Pulse Rate 93 H 94 H 94 H Respiratory Rate 14 14 Blood Pressure 105/76 Pulse Oximetry 99 99 99 08/21/18 00:00 08/21/18 00:24 08/21/18 01:00 Temperature 98.5 F Pulse Rate 92 H 95 H Respiratory Rate 16 14 15 Blood Pressure 104/72 Pulse Oximetry 99 99 99 08/21/18 02:00 08/21/18 03:00 08/21/18 03:26 Temperature Pulse Rate 93 H 92 H Respiratory Rate 14 14 Blood Pressure 100/73 Pulse Oximetry 99 99 100 08/21/18 04:00 08/21/18 05:00 08/21/18 06:00 Temperature 98.5 F Pulse Rate 89 88 101 H Respiratory Rate Blood Pressure 105/80 120/93 H Pulse Oximetry 100 99 99 08/21/18 07:00 08/21/18 07:40 08/21/18 08:00 Temperature 98.0 F Pulse Rate 98 H 92 H Respiratory Rate 17 Blood Pressure 98/71 L Pulse Oximetry 99 99 100 08/21/18 09:00 08/21/18 10:00 08/21/18 10:01 Temperature Pulse Rate 91 H 91 H Respiratory Rate 18 Blood Pressure Pulse Oximetry 100 100 Intake & Output 08/20/18 08/21/18 08/21/18 18:59 06:59 18:59 Intake Total 1050 / 1050 586 / 586 Output Total 3560 / 3560 1790 / 1790 Balance -2510 / -2510 -1204 / -1204 Weight 79 kg Intake: IV 1050 / 1050 388 / 388 Bumex Inj 25 mg In 100 ml @ 2 100 / 100 88 / 88 MG/HR 8 mls/hr IV.CONT .[id number] ANAHI Rx#:[id number] Versed Inj 100 mg In 100 ml @ 2 100 / 100 MG/HR 2 mls/hr IV.CONT TITRATE PRN Rx#:[id number] Flexbumin 25% Inj 100 ML @ 60 300 / 300 200 / 200 mls/hr IV.SIG Q6HR ANAHI Rx#: [id number] Azithromycin Inj 500 MG In NS 250 / 250 Inj 250 ML @ 250 mls/hr IV.SIG Q24H ANAHI Rx#:[id number] Maxipime Inj 2,000 MG In NS Inj 100 / 100 100 ML @ 200 mls/hr IV.SIG Q24H ANAHI Rx#:[id number] Flagyl 500 MG Inj 100 ML @ 100 200 / 200 100 / 100 mls/hr IV.SIG Q8H ANAHI Rx#: [id number] Tube Feeding 168 / 168 Water Bolus Amount 30 / 30 Output: Urine Amount (Catheter) 1900 / 1900 1300 / 1300 Indwelling Urethral Catheter 1900 / 1900 1300 / 1300 Chest Tube Drainage 1660 / 1660 490 / 490 Right Mid-Axillary Chest 1660 / 1660 490 / 490 Other: Date of Last Bowel Movement 08/21/18 Physical Exam: CONSTITUTIONAL/GENERAL: This is an adequately nourished patient, intubated and sedated in no acute distress. TUBES/LINES/DRAINS: ETT, OG tube, TLC left IJ, femoral A-line, PIV, SCDs SKIN: No jaundice, rashes, or lesions. Ecchymoses on upper extremities. Healed scar to left upper chest wall. Skin temperature appropriate. Not diaphoretic. HEAD: Atraumatic. Normocephalic. EYES: Eyes closed. Pupils 2 mm, slight reaction to light. No scleral icterus. No injection or drainage. Fundi not examined. ENT: Hearing grossly normal. No nasal or purulent drainage. Endotracheally intubated. NECK: Trachea midline. Supple, nontender. CARDIOVASCULAR: Sinus rhythm with no murmurs, gallops, or rubs. No JVD. AICD to right upper chest wall. RESPIRATORY/CHEST: Symmetric, unlabored respirations. Clear to auscultation. Crackles to RML. No wheezes,or rhonchi. GASTROINTESTINAL: Abdomen soft, non-tender, nondistended. No guarding. Bowel sounds present. OG tube. GENITOURINARY: Without palpable bladder distension. Bradley catheter in place. MUSCULOSKELETAL: Extremities without clubbing, cyanosis, or edema. No mottling or clubbing. LYMPHATICS: Did not assess NEUROLOGICAL: Intubated, sedated. PSYCHIATRIC: Unable to assess. Currently sedated. . Diagnostic Tests Laboratory: Laboratory Results - last 72 hr 08/18/18 08/18/18 08/18/18 12:08 12:30 14:00 WBC RBC Hgb Hct MCV MCH MCHC RDW Plt Count MPV PT 23.8 H INR 2.4 Puncture Site Art line Patient Temperature 98.6 O2 Saturation 96 ABG pH 7.54 H* ABG pCO2 30 L ABG pO2 120 ABG HCO3 26 ABG O2 Content 13.8 ABG Base Excess 3.4 H ABG Methemoglobin 1.5 Hemoglobin 10.1 L Carboxyhemoglobin 1.4 O2 Delivery Device Ventilator Vent Setting Cpap 5/5ps Inspired O2 40 Critical Value Yes Sodium 142 Potassium 3.3 L Chloride 99 Carbon Dioxide 31.5 Anion Gap 12 BUN 78 H Creatinine 3.07 H Estimated GFR 18 L Random Glucose 101 Calcium 8.7 Magnesium 2.0 Total Bilirubin 3.2 H AST 52 H ALT 26 Alkaline Phosphatase 52 Total Protein 6.0 L Albumin 3.7 Pleural pH Pleural RBC Pleural Nuc Cells Pleural Neutrophils Pleural Lymphocytes Pleural Monocytes Pleural Mesothelial Pleural Fluid Comment Pleural Total Protein Pleural LDH Pleural Glucose 08/19/18 08/19/18 08/19/18 03:40 03:40 17:00 WBC 7.7 RBC 3.59 L Hgb 8.7 L Hct 26.4 L MCV 73.5 L MCH 24.3 L MCHC 33.1 RDW 18.6 H Plt Count 136 L MPV 8.6 PT INR Puncture Site Patient Temperature O2 Saturation ABG pH ABG pCO2 ABG pO2 ABG HCO3 ABG O2 Content ABG Base Excess ABG Methemoglobin Hemoglobin Carboxyhemoglobin O2 Delivery Device Vent Setting Inspired O2 Critical Value Sodium 143 146 H Potassium 3.1 L 3.5 Chloride 100 105 Carbon Dioxide 30.9 24.7 Anion Gap 12 16 H BUN 74 H 70 H Creatinine 2.98 H 2.92 H Estimated GFR 19 L 19 L Random Glucose 85 94 Calcium 8.7 8.1 L Magnesium 2.0 1.9 Total Bilirubin 3.4 H 4.2 H AST 43 H 35 ALT 28 24 Alkaline Phosphatase 49 47 Total Protein 5.8 L 5.9 L Albumin 3.6 3.8 Pleural pH Pleural RBC Pleural Nuc Cells Pleural Neutrophils Pleural Lymphocytes Pleural Monocytes Pleural Mesothelial Pleural Fluid Comment Pleural Total Protein Pleural LDH Pleural Glucose 08/20/18 08/20/18 08/20/18 05:18 05:18 08:46 WBC 8.6 RBC 3.75 L Hgb 9.0 L Hct 27.7 L MCV 73.7 L MCH 24.0 L MCHC 32.6 RDW 18.8 H Plt Count 140 L MPV 10.9 PT 23.1 H INR 2.3 Puncture Site Patient Temperature O2 Saturation ABG pH ABG pCO2 ABG pO2 ABG HCO3 ABG O2 Content ABG Base Excess ABG Methemoglobin Hemoglobin Carboxyhemoglobin O2 Delivery Device Vent Setting Inspired O2 Critical Value Sodium 144 Potassium 3.6 Chloride 101 Carbon Dioxide 27.2 Anion Gap 16 H BUN 78 H Creatinine 3.19 H Estimated GFR 18 L Random Glucose 101 Calcium 9.3 D Magnesium Total Bilirubin 5.3 H AST 30 ALT 24 Alkaline Phosphatase 46 Total Protein 6.2 L Albumin 4.2 Pleural pH Pleural RBC Pleural Nuc Cells Pleural Neutrophils Pleural Lymphocytes Pleural Monocytes Pleural Mesothelial Pleural Fluid Comment Pleural Total Protein Pleural LDH Pleural Glucose 08/20/18 08/20/18 08/21/18 10:40 10:40 03:05 WBC 8.9 RBC 3.81 L Hgb 9.2 L Hct 27.8 L MCV 72.8 L MCH 24.1 L MCHC 33.2 RDW 18.8 H Plt Count 124 L MPV 10.7 PT INR Puncture Site Patient Temperature O2 Saturation ABG pH ABG pCO2 ABG pO2 ABG HCO3 ABG O2 Content ABG Base Excess ABG Methemoglobin Hemoglobin Carboxyhemoglobin O2 Delivery Device Vent Setting Inspired O2 Critical Value Sodium Potassium Chloride Carbon Dioxide Anion Gap BUN Creatinine Estimated GFR Random Glucose Calcium Magnesium Total Bilirubin AST ALT Alkaline Phosphatase Total Protein Albumin Pleural pH 8.0 Pleural RBC 2064 H Pleural Nuc Cells 270 H Pleural Neutrophils 26 Pleural Lymphocytes 49 Pleural Monocytes 6 Pleural Mesothelial 19 Pleural Fluid Comment Pleural Total Protein 3.2 Pleural LDH 148 Pleural Glucose 89 08/21/18 03:05 WBC RBC Hgb Hct MCV MCH MCHC RDW Plt Count MPV PT INR Puncture Site Patient Temperature O2 Saturation ABG pH ABG pCO2 ABG pO2 ABG HCO3 ABG O2 Content ABG Base Excess ABG Methemoglobin Hemoglobin Carboxyhemoglobin O2 Delivery Device Vent Setting Inspired O2 Critical Value Sodium 148 H Potassium 3.1 L Chloride 104 Carbon Dioxide 31.8 Anion Gap 12 BUN 76 H Creatinine 2.82 H Estimated GFR 20 L Random Glucose 97 Calcium 8.8 Magnesium 1.9 Total Bilirubin 5.3 H AST 23 ALT 20 Alkaline Phosphatase 37 L Total Protein 6.2 L Albumin 4.2 Pleural pH Pleural RBC Pleural Nuc Cells Pleural Neutrophils Pleural Lymphocytes Pleural Monocytes Pleural Mesothelial Pleural Fluid Comment Pleural Total Protein Pleural LDH Pleural Glucose Result Diagrams: 08/21/18 03:05 08/21/18 03:05 Microbiology: Microbiology 08/20/18 10:40 Gram Stain - Final Fluid - Pleural fluid 08/15/18 12:40 Aerobic Blood Culture - Final Blood - Peripheral No growth in 5 days Anaerobic Blood Culture - Final No growth in 5 days 08/15/18 12:51 Aerobic Blood Culture - Final Blood - Peripheral No growth in 5 days Anaerobic Blood Culture - Final No growth in 5 days 08/16/18 13:20 Gram Stain - Final Fluid - Pleural fluid Body Fluid Culture - Final No growth in 72 hours (aerobically and anaerobically) Imaging: Head CT 08/17/18 00:00 CONCLUSION: 1. No acute intracranial abnormality demonstrated. 2. 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 . Chest X-Ray 08/21/18 06:00 CONCLUSION: Stable chest x-ray with left basilar opacity representing either atelectasis, consolidation, and/or effusion. Right chest tube remains present and no pneumothorax is seen. Procedures: 08/15/18-placement of left IJ central line 08/16/18-endotracheal intubation after PEA arrest 08/16/18-bedside thoracentesis with removal of 950 mL's of slightly cloudy, yellow colored fluid. 08/16/18-right femoral arterial line placement 08/20/18-right chest tube placement . Assessment and Plan - Disease Oriented Problem List (1) Severe sepsis (2) Cardiogenic shock (3) Systolic heart failure (4) Cardiomyopathy (5) Pulmonary edema (6) Pneumonia (7) Lactic acidemia (8) Supratherapeutic INR (9) Hypertension - Symptom Scale (1) Shortness of breath 0-10 Scale: Unable to quantify Comment: History of congestive heart failure, chronic kidney disease and recent PEA (2) At risk for pain Comment: Patient went into PEA arrest on 08/16/18 (3) Debility 0-10 Scale: Unable to quantify Comment: Progressive. Patient has had multiple hospitalizations in the past 12 months. Pertinent Non-Medical Issues: Psychosocial: Patient is originally from [facility]. She moved to [place] in 2014. Patient worked in [employer] 2007. 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 Patient has been to her current for 43 years. They have 2 adult sons, Rey Hodge who lives locally and another son who lives in [facility] [place]. She has 6 grandchildren. Spiritual: Patient is [employer]ism-open to gas and oil servicer visits. Gun Perforator Thomas has visited with spouse before. Legal: Never completed advanced directives. Ethical issues impacting care: None identified at this time . Important Contacts: Spouse-Rey Funes SR-[phone] Son-Rey Funes [phone] Daughter-Tracey FunesAdzgd-[phone] Prognosis: Mrs. Funes is a 67-year-old old with a medical history significant for congestive heart failure with an ejection fraction less than 20%, coronary artery disease, ventricular tachycardia with a [employer] ICD, pulmonary embolism , chronic kidney disease stage III, hypertension, cardiovascular accident with residual left-sided weakness in 2017. Patient presented to the emergency room on 08/15/2018 for further evaluation of progressive weakness, shortness of breath, lower extremity edema and productive cough. Patient's hospital course complicated with PEA cardiac arrest, worsening lung function requiring chest tube placement, and worsening renal function despite aggressive diuresis. Given multiple ongoing comorbidities, patient remains at high risk for further complications, deterioration and decline. . Code Status: Full Code Plan: PLAN: Legal decision maker: Patient is currently intubated, sedated. It is not known whether the patient will regain capacity to participate in medical decision making. She is . According to [place] statute patient's spouse Rey Funes Sr will serve as patient's healthcare proxy decision-maker. Goals: Remain aggressive. Patient`s spouse, feeling encouraged that patient is currently on CPAP trials and continues to urinate. Discussed again patient's extensive cardiac history, failing renal function and pulmonary function and how patient will continue to face medical complications to her recovery if any. Explained ventilator weaning trials and importance of patient to be awake enough to protect her airway. Discussed patient's high risk for complications due to her ongoing comorbidities. It appears at this time that patient spouse Rey Funes Sr (healthcare proxy) would like to continue with aggressive treatment. CODE STATUS: Full code SYMPTOMS: * Shortness of breath: Patient has history of CHF, and currently has pneumonia and acute on chronic kidney failure. Intubated on 08/16/18 after PEA arrest. Patient has had thoracentesis and has recurrent pleural effusions requiring thoracotomy and placement of bilateral chest tubes. Patient is on antibiotics. Patient is currently on spontaneous breathing trials. FiO2 30%. * At risk for pain: Patient is currently bedbound and had PEA arrest requiring CPR on 08/16/17 and intubation. Patient has had multiple procedures done including thoracentesis, thoracotomy with chest tube placement, central line placement and arterial line placement which can all be sources of pain. Patient is currently not showing any signs of pain. * Debility. Progressive. Patient has multiple ongoing comorbidities. She has had multiple (x7) hospitalizations in the past year. Patient has been increasingly getting weak due to her failing heart. Patient will most likely continue to deteriorate given her heart condition, she will most likely be not able to effectively participate in physical therapy/rehabilitation. Palliative care will continue to follow the patient during hospital course as condition evolves, to assist patient/decision-maker with understanding of their medical conditions, weighing benefits/burdens of treatment options, for clarification of goals of treatment. Additionally will assist with any symptoms of palliative concern Attestation Attestation: To help prompt me to consider important information that might be impacting today's encounter and assessment, information from prior notes written by myself or my colleagues may have been "brought forward" into today's note. My signature on this note, however, is an attestation that I personally performed the exam, history, and/or decision-making noted today, and, unless otherwise indicated, the interactions with patient, family, and staff as well as the review of records all occurred today. I also attest that the listed assessment and stated plan reflect my best clinical judgment today based on the combination of historical information, prior notes, and today's exam/ interactions. When time spent is documented, it refers only to time spent today by the signer, or if indicated, combined time spent today by collaborating physician/nurse practitioner.
--- NOTE | 2018-08-21 12:43 | P.DIET ---
Nutritional Evaluation Type of nutrition evaluation: initial Nutrition consult regarding: Tube Feeding Screening comments: 08/21/18 TF review Objective - Diagnosis SVT, Acute on CRF, elevated trop - Objective Body Mass Index: 28.8 % IBW: 136 (IBW = 135lb) Body Weight Used for Calculations: Actual (83.5kg) Energy Needs - Lower Range (kCal/kg): 25 Energy Needs - Upper Range (kCal/kg): 30 Lower Limit kCal/kg (kCals): 2,088 Upper Limit kCal/kg (kCals): 2,505 Lower Limit Protein Factor (Grams per Kg): 0.8 Upper Limit Protein Factor (Grams per Kg): 1.0 Lower Protein Needs (Protein): 67 Upper Protein Needs (Protein): 84 Dietitian Reviewed in Medical Record: Curent medications, Intake & Output, Labs , Medical history, Tube feeding Diet Order: NPO, TF'ing Objective Comments: PMH: CHF, CKD, CAD, CVA, fibromyalgia, HTN, MS Meds: Versed Labs: BUN 76, Cr 2.82, estGFR 20 Previously coded PEA arrest Assessment Assessment: Pt currently intubated, off sedation, on mech vent, not responsive. Pt was previously coded as PEA arrest, now on tube feeds. Pt receiving TF of Nepro 1.8 @ 45mL/hr as goal rate per MD. Spoke w/ RN Lata about pts TF'ing, per RN pt is tolerating fine w/ normal liquid stools. Pt currently has poor renal function and not receiving dialysis; RD to recommend Suplena 1.8 @ 50mL/hr w/ Beneprotein 1-pkt TID to provide 2235kcal, 72g of protein, and 886mL of free water to best meet pts nutritional needs at this time. Continue to monitor TF tolerance. Labs reviewed, dietitian following. Recommendations: 1. Pt has poor renal function, not on HD; recommend Suplena 1.8 @ 50mL/hr w/ Beneprotein 1-pkt TID at this time 2. Continue to monitor TF tolerance 3. Dietitian following, additional recs to follow r/t medical course Dietitian to Monitor: Lab values, Renal labs, Intake & Output, Tube feeding tolerance, Weight change, PO Intake, Medical course
--- NOTE | 2018-08-21 14:53 | P.PNCC ---
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 Patient also had productive cough and frothy sputum, sometimes blood tinged. She also complained about declining urinary output. Initial ER workup showed a normal white count, however BUN was elevated at 80 and creatinine 2.72. BNP was more than 4000. Chest x-ray showed right midlung infiltrate. Patient received Rocephin and azithromycin for community-acquired pneumonia. Patient was admitted to the [facility]. After admission due to the shortness of breath pedal edema and elevated BNP [facility] gave the patient 20 mg IV Lasix but without much urine output. Initially patient had HR of 170's EKG appeared to be SVT and patient converted to NSR with IV Cardizem 25 mg. However patient's blood pressure started to decline. Because of this patient was given IV fluid boluses total 1.5 L had been given. Systolic blood pressure remains at 70s. Lactic acid was checked and was 8.1. With this information critical care medicine was consulted I evaluated the patient emergently. She is lethargic but wakes up easily answers questions. Still profoundly hypotensive despite 1.5 L bolus. I have ordered additional 500 mL bolus and will start Levophed at 5 mcg/min and titrate as needed. It was noted had that her INR is 5.2. Patient may benefit from inotropic agents if blood pressure improves. Antibiotics had been broadened into cefepime and azithromycin, I will also add IV Zyvox. Hold all further diuresis due to septic shock. Patient is very critical at this time 08/16: Patient sitting up in bed. Off Levophed however urine output is minimal only 75 mL urine output since admission. CVP remains elevated at 14-15. I will attempt forced diuresis with Bumex 2 mg x1 and Bumex 0.5 mg/h infusion. If no response may need hemodialysis. Follow-up chest x-ray today is pending. Chest x-ray shows persistent right sided infiltrate and effusion 08/17: Patient developed PEA cardiac arrest yesterday afternoon. No immediate inciting factors could be identified however most likely cardiac. 2D echo ordered pending. CT of the head pending. Currently patient had been weaned off all of the pressors however remains encephalopathy. Creatinine is worsening to 3.8 however urine output has improved approximately 500 ml UO in the last 12 hours. 2/2: Patient remains intubated lightly sedated. On lightening sedation patient wakes up easily following commands. Remains on Bumex infusion approximately 6 L urine output. However chest x-ray showing pulmonary edema. Remains off pressors. Will attempt CPAP trials. CT head did not show any acute finding 2/: Diuresing well with Bumex infusion achieving negative balance however chest x-ray shows bilateral pulmonary vascular congestion and bilateral at least moderate effusions. These are secondary to decompensated heart failure. EF is less than 20 with severe MR. Creatinine down to 3. Prognosis overall is poor despite milrinone and diuresis patient is not proving adequately. We will consult palliative care to address goals of care 08/20: Patient continues to be in decompensated congestive heart failure. Despite increasing Bumex to 2 mg/h, urine output has decreased to 1.6 L in 24 hours. Chest x-ray continued to show bilateral large pleural effusions. Right- sided pigtail chest tube was placed today with 1 L output initially. Milrinone discontinued due to increasing ventricular irritability. 08/21: Remains sedated, orally intubated on mechanical ventilation. Bumex drip continues. Objective Vital Signs / I&O: Vital Signs 08/20/18 15:00 08/20/18 15:49 08/20/18 16:00 Temperature 98.2 F Pulse Rate 88 96 H Respiratory Rate 14 Blood Pressure 100/73 Pulse Oximetry 97 97 97 08/20/18 17:00 08/20/18 18:00 08/20/18 19:00 Temperature Pulse Rate 96 H 96 H 96 H Respiratory Rate 20 Blood Pressure 89/67 L Pulse Oximetry 98 99 99 08/20/18 20:00 08/20/18 20:25 08/20/18 21:00 Temperature 99.0 F Pulse Rate 95 H 93 H Respiratory Rate 20 13 14 Blood Pressure 96/74 L Pulse Oximetry 99 99 99 08/20/18 22:00 08/20/18 23:00 08/21/18 00:00 Temperature 98.5 F Pulse Rate 94 H 94 H 92 H Respiratory Rate 14 16 Blood Pressure 105/76 104/72 Pulse Oximetry 99 99 99 08/21/18 00:24 08/21/18 01:00 08/21/18 02:00 Temperature Pulse Rate 95 H 93 H Respiratory Rate 14 15 14 Blood Pressure 100/73 Pulse Oximetry 99 99 99 08/21/18 03:00 08/21/18 03:26 08/21/18 04:00 Temperature 98.5 F Pulse Rate 92 H 89 Respiratory Rate 14 Blood Pressure 105/80 Pulse Oximetry 99 100 100 08/21/18 05:00 08/21/18 06:00 08/21/18 07:00 Temperature Pulse Rate 88 101 H 98 H Respiratory Rate Blood Pressure 120/93 H Pulse Oximetry 99 99 99 08/21/18 07:40 08/21/18 08:00 08/21/18 09:00 Temperature 98.0 F Pulse Rate 92 H 91 H Respiratory Rate 17 Blood Pressure 98/71 L Pulse Oximetry 99 100 100 08/21/18 10:00 08/21/18 10:01 08/21/18 11:00 Temperature Pulse Rate 91 H 85 Respiratory Rate 18 Blood Pressure 104/75 Pulse Oximetry 100 100 100 08/21/18 12:00 08/21/18 13:00 08/21/18 13:08 Temperature 96.4 F L Pulse Rate 92 H 96 H Respiratory Rate 22 Blood Pressure 97/74 L Pulse Oximetry 100 100 100 08/21/18 14:00 Temperature Pulse Rate 94 H Respiratory Rate Blood Pressure Pulse Oximetry Intake & Output 08/20/18 08/21/18 08/21/18 18:59 06:59 18:59 Intake Total 1050 / 1050 586 / 586 450 / 450 Output Total 3560 / 3560 1790 / 1790 Balance -2510 / -2510 -1204 / -1204 450 / 450 Weight 79 kg Intake: IV 1050 / 1050 388 / 388 450 / 450 Bumex Inj 25 mg In 100 ml @ 2 100 / 100 88 / 88 MG/HR 8 mls/hr IV.CONT .[id number] ANAHI Rx#:[id number] Versed Inj 100 mg In 100 ml @ 2 100 / 100 MG/HR 2 mls/hr IV.CONT TITRATE PRN Rx#:[id number] Flexbumin 25% Inj 100 ML @ 60 300 / 300 200 / 200 mls/hr IV.SIG Q6HR ANAHI Rx#: [id number] Azithromycin Inj 500 MG In NS 250 / 250 250 / 250 Inj 250 ML @ 250 mls/hr IV.SIG Q24H ANAHI Rx#:[id number] Maxipime Inj 2,000 MG In NS Inj 100 / 100 100 / 100 100 ML @ 200 mls/hr IV.SIG Q24H ANAHI Rx#:[id number] Flagyl 500 MG Inj 100 ML @ 100 200 / 200 100 / 100 100 / 100 mls/hr IV.SIG Q8H ANAHI Rx#: [id number] Tube Feeding 168 / 168 Water Bolus Amount 30 / 30 Output: Urine Amount (Catheter) 1900 / 1900 1300 / 1300 Indwelling Urethral Catheter 1900 / 1900 1300 / 1300 Chest Tube Drainage 1660 / 1660 490 / 490 Right Mid-Axillary Chest 1660 / 1660 490 / 490 Other: Date of Last Bowel Movement 08/21/18 Result Diagrams: 08/21/18 03:05 08/21/18 03:05 Objective Remarks: General: Ill-appearing -[place] female who is intubated, off sedation moving extremities HEENT: Normocephalic and atraumatic. EOM intact bilaterally. Pupils are reactive. Mild right facial droop. Orotracheally intubated Neck: Supple no JVD Chest: normal inspection of the chest. Scar from AICD placement on the left upper chest. AICD now in right upper chest Resp: Air entry diminished in the right mid chest few crackles heard. No wheezes or rhonchi. On PRVC/AC. Large right pleural effusion Rate: S1-S2 heard normally. No murmurs. Normal sinus rhythm. CI 1.4 to 1.7 GI: Abdomen soft nontender no organomegaly Skin: No rashes or lesions noted, dry skin Neuro: Patient is intubated lightly sedated. Moves extremities spontaneously but weakly. Follows commands when sedation is held Assessment and Plan - Assessment and Plan Plan: ASSESSMENT: PEA cardiac arrest Decompensated systolic heart failure Bilateral pleural effusion/pulmonary edema Severe biventricular failure Acute metabolic encephalopathy Septic shock improving Cardiogenic shock-marginally improving Acute respiratory failure Severe MR, TR Right sided pneumonia, with effusion Lactic acidemia Acute on chronic kidney disease Supratherapeutic INR Mild troponin elevation SVT-resolved Hypokalemia Cardiomyopathy ejection fraction 20% Chronic kidney disease Hypertension History of CVA in 2017 Chronic anticoagulation with Coumadin PLAN: NEURO: -Metabolic encephalopathy secondary to sepsis, no evidence of significant anoxic injury from PEA arrest -Monitor neuro status closely, daily sedation vacation -No evidence of new CVA at this time. CT of the head negative for acute findings old right frontal stroke RESP: -Status post ultrasound-guided thoracentesis, studies consistent with transudative versus early exudative effusion -Status post right pigtail chest tube placement with 1 L output today 08/20/2018 -Intubated and placed on mechanical ventilation during CPR 08/16/18 -DuoNeb every 6 hours scheduled and every 2 hours as needed -Follow-up on sputum culture, ABX as below, cultures negative to date CV: -Following PEA cardiac arrest patient was on epinephrine and Levophed infusion. Both had been weaned off -Milrinone started for decompensated heart failure, discontinued overnight due to increased ventricular irritability -2D echo previously showing EF 20-25%. Repeat 2D echo Severely dilated right and left ventricle with severe biventricular dysfunction. LV EF less than 20%. Severe MR and TR -Continue Bumex infusion at 2 mg/h. -foreign legal consultant -Holding Coumadin, INR remains supratherapeutic -On admission received 25 mg IVP Cardizem for SVT, now in NSR GI: -N.p.o., IV famotidine -Tube feeds with Nepro : -Monitor renal function closely. Bradley catheter. -Nephrology Dr. James following -Bumex infusion at 2 mg/h with adequate urine output however congestive heart failure persistent even with achieving negative balance ID: -Continue empiric cefepime -Follow blood urine and sputum cultures, negative to date -Consolidate antibiotics per culture HEME: -Monitor CBC, coags -Status post multiple platelet and vitamin K administration for supratherapeutic INR ENDO: -Electrolyte replacement as needed PROPH: -Bilateral lower extremity SCDs. IV famotidine LINES: -Utilize peripheral IVs, left IJ central line placed 08/15/2018 -Intubation and left femoral central line placement 08/16/2018 -Right pigtail chest tube placed 08/20/2018 CC time 40 min Patient is very critical at this time even though stabilized. She sustained a PEA cardiac arrest 08/16/18 most likely from cardiac reasons. 2D echo shows EF less than 20%, severe MR, severe TR with evidence of severe biventricular failure. Her shock has improved however there is persistent biventricular failure. Not tolerating milrinone due to ventricular arrhythmias. Prognosis is guarded with severe biventricular dilatation and failure. Despite aggressive diuresis patient remains in decompensated congestive heart failure. Palliative care consulted to address goals of care
[2018-08-21] MEDS: Milrinone Inj 20 MG in Sodium Chlor 0.9% Inj 80 ML IV.CONT SCH (17:02)
[2018-08-21] MEDS ORDERED: Metoprolol Inj 5 MG/5 ML Vial ONE (19:31)
[2018-08-21] MEDS: dilTIAZem Inj 125 MG in Sodium Chlor 0.9% Inj 100 ML IV.CONT PRN (20:00)
[2018-08-21] MEDS ORDERED: Metoprolol Inj 5 MG/5 ML Vial IV.PUSH ONE (20:00)
[2018-08-22] MEDS: Albumin Human 25% Inj 100 ML IV.SIG SCH ×4 (00:38→18:47)
[2018-08-22 04:07] LABS: Baso % (Auto) 0.3 % (0.0-2.0); Eos # (Auto) 0.1 th/mm3 (0.0-0.4); Eos % (Auto) 1.1 % (0.0-4.0); Hematocrit 31.3 % (35.0-46.0); Hemoglobin 10.3 gm/dL (11.6-15.3); Lymph # (Auto) 0.2 th/mm3 (1.0-4.8); Lymph % (Auto) 2.1 % (9.0-44.0); Mean Corpuscular HGB Conc 32.8 % (32.0-36.0); Mean Corpuscular Hemoglobin 23.7 pg (27.0-34.0); Mean Corpuscular Volume 72.4 fL (80.0-100.0); Mono # (Auto) 0.6 th/mm3 (0.0-0.9); Mono % (Auto) 6.4 % (0.0-8.0); Neut # (Auto) 8.5 th/mm3 (1.8-7.7); Neut % (Auto) 90.1 % (16.0-70.0); Platelet Count 135 th/mm3 (150-450); Red Blood Count 4.33 mil/mm3 (4.00-5.30); Red Cell Distribution Width 19.3 % (11.6-17.2); White Blood Count 9.4 th/mm3 (4.0-11.0)
[2018-08-22 04:13] LABS: Alanine Aminotransferase 24 U/L (10-53); Albumin 4.4 g/dL (3.4-5.0); Alkaline Phosphatase 65 U/L (45-117); Anion Gap 11 meq/L (5-15); Aspartate Aminotransferase 42 U/L (15-37); Blood Urea Nitrogen 74 mg/dL (7-18); Calcium 8.8 mg/dL (8.5-10.1); Carbon Dioxide 33.9 meq/L (21.0-32.0); Chloride 106 meq/L (98-107); Glomerular Filtration Rate 23 mL/min (>89); Glucose,Random 170 mg/dL (74-106); Sodium 151 meq/L (136-145); Total Protein 6.3 g/dL (6.4-8.2)
[2018-08-22 04:33] LABS: Potassium 2.7 meq/L (3.5-5.1)
[2018-08-22] MEDS: Potassium Chlor 20 mEq Premix 20 MEQ/100 ML PIGGYBACK IV.SIG SCH ×4 (05:30→11:47)
[2018-08-22] MEDS: Bumetanide Inj 25 MG/100 ML BAG IV.CONT SCH ×2 (06:32→19:34)
[2018-08-22 07:00] LABS: Acanthocytes 1+; Ovalocytes 1+; Target Cells 1+
[2018-08-22 07:02] LABS: Basophilic Stippling Moderate
[2018-08-22 07:03] LABS: Platelet Morphology Normal (Normal)
[2018-08-22] MEDS: Senna/Docusate Sodium 8.6/50 MG Tablet PO SCH ×2 (08:21→20:59)
--- NOTE | 2018-08-22 09:24 | P.PNCC ---
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 Patient also had productive cough and frothy sputum, sometimes blood tinged. She also complained about declining urinary output. Initial ER workup showed a normal white count, however BUN was elevated at 80 and creatinine 2.72. BNP was more than 4000. Chest x-ray showed right midlung infiltrate. Patient received Rocephin and azithromycin for community-acquired pneumonia. Patient was admitted to the [facility]. After admission due to the shortness of breath pedal edema and elevated BNP [facility] gave the patient 20 mg IV Lasix but without much urine output. Initially patient had HR of 170's EKG appeared to be SVT and patient converted to NSR with IV Cardizem 25 mg. However patient's blood pressure started to decline. Because of this patient was given IV fluid boluses total 1.5 L had been given. Systolic blood pressure remains at 70s. Lactic acid was checked and was 8.1. With this information critical care medicine was consulted I evaluated the patient emergently. She is lethargic but wakes up easily answers questions. Still profoundly hypotensive despite 1.5 L bolus. I have ordered additional 500 mL bolus and will start Levophed at 5 mcg/min and titrate as needed. It was noted had that her INR is 5.2. Patient may benefit from inotropic agents if blood pressure improves. Antibiotics had been broadened into cefepime and azithromycin, I will also add IV Zyvox. Hold all further diuresis due to septic shock. Patient is very critical at this time 08/16: Patient sitting up in bed. Off Levophed however urine output is minimal only 75 mL urine output since admission. CVP remains elevated at 14-15. I will attempt forced diuresis with Bumex 2 mg x1 and Bumex 0.5 mg/h infusion. If no response may need hemodialysis. Follow-up chest x-ray today is pending. Chest x-ray shows persistent right sided infiltrate and effusion 08/17: Patient developed PEA cardiac arrest yesterday afternoon. No immediate inciting factors could be identified however most likely cardiac. 2D echo ordered pending. CT of the head pending. Currently patient had been weaned off all of the pressors however remains encephalopathy. Creatinine is worsening to 3.8 however urine output has improved approximately 500 ml UO in the last 12 hours. 08/18: Patient remains intubated lightly sedated. On lightening sedation patient wakes up easily following commands. Remains on Bumex infusion approximately 6 L urine output. However chest x-ray showing pulmonary edema. Remains off pressors. Will attempt CPAP trials. CT head did not show any acute finding 08/19: Diuresing well with Bumex infusion achieving negative balance however chest x-ray shows bilateral pulmonary vascular congestion and bilateral at least moderate effusions. These are secondary to decompensated heart failure. EF is less than 20 with severe MR. Creatinine down to 3. Prognosis overall is poor despite milrinone and diuresis patient is not proving adequately. We will consult palliative care to address goals of care 08/20: Patient continues to be in decompensated congestive heart failure. Despite increasing Bumex to 2 mg/h, urine output has decreased to 1.6 L in 24 hours. Chest x-ray continued to show bilateral large pleural effusions. Right- sided pigtail chest tube was placed today with 1 L output initially. Milrinone discontinued due to increasing ventricular irritability. 08/21: Remains sedated, orally intubated on mechanical ventilation. Bumex drip continues. 08/22: Off sedation since 08/18. Intubated and on PSV / CPAP. Not following commands. Objective Vital Signs / I&O: Vital Signs 08/21/18 10:00 08/21/18 10:01 08/21/18 11:00 Temperature Pulse Rate 91 H 85 Respiratory Rate 18 Blood Pressure 104/75 Pulse Oximetry 100 100 100 08/21/18 12:00 08/21/18 13:00 08/21/18 13:08 Temperature 96.4 F L Pulse Rate 92 H 96 H Respiratory Rate 22 Blood Pressure 97/74 L Pulse Oximetry 100 100 100 08/21/18 14:00 08/21/18 14:18 08/21/18 15:00 Temperature Pulse Rate 94 H 94 H 96 H Respiratory Rate Blood Pressure 101/69 Pulse Oximetry 100 100 100 08/21/18 16:00 08/21/18 16:09 08/21/18 17:00 Temperature 99.2 F Pulse Rate 101 H 104 H Respiratory Rate 19 Blood Pressure Pulse Oximetry 100 100 100 08/21/18 18:00 08/21/18 19:00 08/21/18 19:38 Temperature 99.2 F Pulse Rate 109 H 110 H Respiratory Rate 21 Blood Pressure Pulse Oximetry 100 99 98 08/21/18 20:00 08/21/18 21:00 08/21/18 22:00 Temperature 99.8 F H Pulse Rate 94 H 97 H 95 H Respiratory Rate 19 Blood Pressure Pulse Oximetry 100 100 100 08/21/18 23:00 08/22/18 00:00 08/22/18 00:30 Temperature 98.9 F Pulse Rate 96 H 95 H Respiratory Rate 19 18 Blood Pressure Pulse Oximetry 99 99 99 08/22/18 01:00 08/22/18 02:00 08/22/18 03:00 Temperature Pulse Rate 85 90 89 Respiratory Rate Blood Pressure Pulse Oximetry 100 100 100 08/22/18 04:00 08/22/18 04:15 08/22/18 05:00 Temperature 98.6 F Pulse Rate 88 96 H Respiratory Rate 16 Blood Pressure Pulse Oximetry 100 100 100 08/22/18 06:00 08/22/18 07:00 08/22/18 07:50 Temperature Pulse Rate 92 H 95 H Respiratory Rate 14 Blood Pressure Pulse Oximetry 100 100 100 Intake & Output 08/21/18 08/22/18 08/22/18 18:59 06:59 18:59 Intake Total 1116 / 1116 1182 / 1182 200 / 200 Output Total 1999 / 2024 Balance -884 / -884 -843 / -843 200 / 200 Weight 74.5 kg Intake: IV 650 / 650 500 / 500 200 / 200 Bumex Inj 25 mg In 100 ml @ 2 100 / 100 100 / 100 MG/HR 8 mls/hr IV.CONT .[id number] ANAHI Rx#:[id number] Flexbumin 25% Inj 100 ML @ 60 100 / 100 200 / 200 100 / 100 mls/hr IV.SIG Q6HR ANAHI Rx#: [id number] Azithromycin Inj 500 MG In NS 250 / 250 Inj 250 ML @ 250 mls/hr IV.SIG Q24H ANAHI Rx#:[id number] Maxipime Inj 2,000 MG In NS Inj 100 / 100 100 ML @ 200 mls/hr IV.SIG Q24H ANAHI Rx#:[id number] KCl 20 mEq Premix Inj 20 meq In 100 / 100 100 ml @ 50 mls/hr IV.SIG Q2H ANAHI Rx#:[id number] Flagyl 500 MG Inj 100 ML @ 100 100 / 100 200 / 200 mls/hr IV.SIG Q8H ANAHI Rx#: [id number] Tube Feeding 426 / 426 502 / 502 Tube Irrigant 40 / 40 180 / 180 Output: Urine Amount (Catheter) 1250 / 1250 1425 / 1425 Indwelling Urethral Catheter 1250 / 1250 1425 / 1425 Chest Tube Drainage 750 / 750 600 / 600 Right Mid-Axillary Chest 750 / 750 600 / 600 Other: Date of Last Bowel Movement 08/21/18 08/21/18 # Bowel Movements 0 Result Diagrams: 08/22/18 03:23 08/22/18 03:23 Objective Remarks: General: Ill-appearing -[place] female who is intubated, off sedation, and not following commands HEENT: Normocephalic and atraumatic. Pupils are reactive. Mild right facial droop. Orotracheally intubated Neck: Supple, no JVD Chest: normal inspection of the chest. Scar from AICD placement on the left upper chest. AICD now in right upper chest Resp: Air entry diminished in the right mid chest few crackles heard. No wheezes or rhonchi. On CPAP / PSV Rate: Regular rate and rhythm without murmur GI: Abdomen soft nontender no organomegaly Skin: No rashes or lesions noted, dry skin Neuro: Intubated and not following commands. Opens eyes to voice. PERRL. Lower extremities withdraw to pain. Slight flexion of extremities to central pain. Assessment and Plan - Problem List (1) Severe sepsis Code(s): A41.9 - Sepsis, unspecified organism; R65.20 - Severe sepsis without septic shock Status: Acute (2) Pneumonia Code(s): J18.9 - Pneumonia, unspecified organism Status: Acute (3) Acute exacerbation of CHF (congestive heart failure) Code(s): I50.9 - Heart failure, unspecified Status: Acute (4) Acute on chronic kidney failure Code(s): N17.9 - Acute kidney failure, unspecified; N18.9 - Chronic kidney disease, unspecified Status: Acute (5) Pleural effusion Code(s): J90 - Pleural effusion, not elsewhere classified Status: Acute (6) PEA (Pulseless electrical activity) Code(s): I46.9 - Cardiac arrest, cause unspecified Status: Resolved (7) Elevated troponin Code(s): R74.8 - Abnormal levels of other serum enzymes Status: Acute (8) Nutrition, metabolism, and development symptoms Code(s): R63.8 - Other symptoms and signs concerning food and fluid intake Status: Acute - Assessment and Plan Plan: ASSESSMENT: PEA cardiac arrest Decompensated systolic heart failure Bilateral pleural effusion/pulmonary edema Severe biventricular failure Acute metabolic encephalopathy Septic shock improving Cardiogenic shock-marginally improving Acute respiratory failure Severe MR, TR Right sided pneumonia, with effusion Lactic acidemia Acute on chronic kidney disease Supratherapeutic INR Mild troponin elevation SVT-resolved Hypokalemia Cardiomyopathy ejection fraction 20% Chronic kidney disease Hypertension History of CVA in 2017 Chronic anticoagulation with Coumadin PLAN: NEURO: -Metabolic encephalopathy secondary to sepsis, no evidence of significant anoxic injury from PEA arrest -No evidence of new CVA at this time. CT 08/17 of the head negative for acute findings old right frontal stroke -Monitor neuro status closely, off sedation and not following commands. RESP: -Status post ultrasound-guided thoracentesis, studies consistent with transudative versus early exudative effusion -Status post right pigtail chest tube placement with 1.3 L output 08/21-12/2018 -Intubated and placed on mechanical ventilation during CPR 08/16/18, now on CPAP / PSV -CXR shows improvement in congestion -ABX as below, blood and pleural fluid cultures negative to date. Sputum cx ordered. CV: -Following PEA cardiac arrest patient was on epinephrine and Levophed infusion. Both had been weaned off -Milrinone started for decompensated heart failure, discontinued overnight due to increased ventricular irritability -2D echo previously showing EF 20-25%. Repeat 2D echo. Severely dilated right and left ventricle with severe biventricular dysfunction. LV EF less than 20%. Severe MR and TR -Stopping Bumex drip, start BID chlorthalidone -infrastructure consultant -On diltiazem drip -Holding Coumadin, INR >2 (has been held for entire hospitalization thus far) -On admission received 25 mg IVP Cardizem for SVT, now in NSR GI: -IV famotidine -Tube feeds with Nepro : -Monitor renal function closely. Bradley catheter. -Nephrology following: Stopping Bumex drip, start BID chlorthalidone ID: -Continue empiric cefepime, Flagyl and azithromycin -Follow blood and pleural fluid cultures, negative to date. Sputum cx ordered. -Consolidate antibiotics per culture HEME: -Mild stable anemia -Monitor CBC, coags -Status post multiple platelet and vitamin K administration ENDO: -Electrolyte replacement as needed PROPH: -Bilateral lower extremity SCDs. IV famotidine LINES: -Utilize peripheral IVs, left IJ central line placed 08/15/2018 -Intubation and left femoral central line placement 08/16/2018 -Right pigtail chest tube placed 08/20/2018 DISPOSITION: -Prognosis is poor -Palliative care is on following Patient seen and examined earlier. Discussed findings, assessment, plan with Dr. Lopez. Agree with above note. Condition remains critical Time spent on critical care excluding procedures 40 minutes (3) Acute exacerbation of CHF (congestive heart failure) Qualifiers: Heart failure type: systolic Qualified Code(s): I50.23 - Acute on chronic systolic (congestive) heart failure (4) Acute on chronic kidney failure Qualifiers: Acute renal failure type: unspecified Chronic kidney disease stage: stage 4 ( severe) Qualified Code(s): N17.9 - Acute kidney failure, unspecified; N18.4 - Chronic kidney disease, stage 4 (severe)
--- NOTE | 2018-08-22 09:58 | P.PNFP ---
Subjective Interval history: Patient was seen at bedside this morning in the presence of her . There were no acute events overnight. She remains off sedation since 08/18, and is not following commands. She continues to be intubated and on PSV / CPAP and unable to communicate. reports that he is well-informed and had no questions or concerns at time of interview. <Dru Jane - 08/22/18 10:42> Results - Labs Result diagrams: 08/22/18 03:23 08/22/18 17:50 <Cristiane Phoenixe - 08/22/18 19:47> Abnormal lab results 08/22/18 08/22/18 08/22/18 Range/Units 03:23 03:23 17:50 Hgb 10.3 L (11.6-15.3) gm/dL Hct 31.3 L (35.0-46.0) % MCV 72.4 L (80.0-100.0) fL MCH 23.7 L (27.0-34.0) pg RDW 19.3 H (11.6-17.2) % Plt Count 135 L (150-450) th/mm3 Neut % (Auto) 90.1 H (16.0-70.0) % Lymph % (Auto) 2.1 L (9.0-44.0) % Neut # (Auto) 8.5 H (1.8-7.7) th/mm3 Lymph # (Auto) 0.2 L (1.0-4.8) th/mm3 Platelet Estimate Low L (Normal) Basophilic Stippling Moderate H (None) Target Cells 1+ H (None) Ovalocytes 1+ H (None) Acanthocytes (Spur) 1+ H (None) Keratocytes Occ H (None) Sodium 151 H (136-145) meq/L Potassium 2.7 L* 3.1 L (3.5-5.1) meq/L Carbon Dioxide 33.9 H (21.0-32.0) meq/L BUN 74 H (7-18) mg/dL Creatinine 2.50 H (0.50-1.00) mg/dL Estimated GFR 23 L (>89) mL/min Random Glucose 170 H (74-106) mg/dL Total Bilirubin 7.1 H (0.2-1.0) mg/dL AST 42 H (15-37) U/L Total Protein 6.3 L (6.4-8.2) g/dL Short CBC 08/22/18 Range/Units 03:23 WBC 9.4 (4.0-11.0) th/mm3 Hgb 10.3 L (11.6-15.3) gm/dL Hct 31.3 L (35.0-46.0) % Plt Count 135 L (150-450) th/mm3 BMP 08/22/18 08/22/18 03:23 17:50 Sodium 151 H Potassium 2.7 L* 3.1 L Chloride 106 Carbon Dioxide 33.9 H BUN 74 H Creatinine 2.50 H Calcium 8.8 Liver Function 08/22/18 Range/Units 03:23 Total Bilirubin 7.1 H (0.2-1.0) mg/dL AST 42 H (15-37) U/L ALT 24 (10-53) U/L Alkaline Phosphatase 65 (45-117) U/L Albumin 4.4 (3.4-5.0) g/dL <Amelia Phoenix - 08/22/18 19:47> Abnormal lab results 08/22/18 08/22/18 Range/Units 03:23 03:23 Hgb 10.3 L (11.6-15.3) gm/dL Hct 31.3 L (35.0-46.0) % MCV 72.4 L (80.0-100.0) fL MCH 23.7 L (27.0-34.0) pg RDW 19.3 H (11.6-17.2) % Plt Count 135 L (150-450) th/mm3 Neut % (Auto) 90.1 H (16.0-70.0) % Lymph % (Auto) 2.1 L (9.0-44.0) % Neut # (Auto) 8.5 H (1.8-7.7) th/mm3 Lymph # (Auto) 0.2 L (1.0-4.8) th/mm3 Platelet Estimate Low L (Normal) Basophilic Stippling Moderate H (None) Target Cells 1+ H (None) Ovalocytes 1+ H (None) Acanthocytes (Spur) 1+ H (None) Keratocytes Occ H (None) Sodium 151 H (136-145) meq/L Potassium 2.7 L* (3.5-5.1) meq/L Carbon Dioxide 33.9 H (21.0-32.0) meq/L BUN 74 H (7-18) mg/dL Creatinine 2.50 H (0.50-1.00) mg/dL Estimated GFR 23 L (>89) mL/min Random Glucose 170 H (74-106) mg/dL Total Bilirubin 7.1 H (0.2-1.0) mg/dL AST 42 H (15-37) U/L Total Protein 6.3 L (6.4-8.2) g/dL Short CBC 08/22/18 Range/Units 03:23 WBC 9.4 (4.0-11.0) th/mm3 Hgb 10.3 L (11.6-15.3) gm/dL Hct 31.3 L (35.0-46.0) % Plt Count 135 L (150-450) th/mm3 BMP 08/22/18 03:23 Sodium 151 H Potassium 2.7 L* Chloride 106 Carbon Dioxide 33.9 H BUN 74 H Creatinine 2.50 H Calcium 8.8 Liver Function 08/22/18 Range/Units 03:23 Total Bilirubin 7.1 H (0.2-1.0) mg/dL AST 42 H (15-37) U/L ALT 24 (10-53) U/L Alkaline Phosphatase 65 (45-117) U/L Albumin 4.4 (3.4-5.0) g/dL <Darling Dru Miguel O - 08/22/18 09:58> Physical Exam Vital signs: Vital Signs 08/21/18 20:00 08/21/18 21:00 08/21/18 22:00 Temperature 99.8 F H Pulse Rate 94 H 97 H 95 H Respiratory Rate 19 Blood Pressure Pulse Oximetry 100 100 100 08/21/18 23:00 08/22/18 00:00 08/22/18 00:30 Temperature 98.9 F Pulse Rate 96 H 95 H Respiratory Rate 19 18 Blood Pressure Pulse Oximetry 99 99 99 08/22/18 01:00 08/22/18 02:00 08/22/18 03:00 Temperature Pulse Rate 85 90 89 Respiratory Rate Blood Pressure Pulse Oximetry 100 100 100 08/22/18 04:00 08/22/18 04:15 08/22/18 05:00 Temperature 98.6 F Pulse Rate 88 96 H Respiratory Rate 16 Blood Pressure Pulse Oximetry 100 100 100 08/22/18 06:00 08/22/18 07:00 08/22/18 07:50 Temperature Pulse Rate 92 H 95 H Respiratory Rate 14 Blood Pressure Pulse Oximetry 100 100 100 08/22/18 08:00 08/22/18 09:00 08/22/18 10:00 Temperature 98.8 F Pulse Rate 96 H 97 H 88 Respiratory Rate Blood Pressure 107/67 Pulse Oximetry 100 100 100 08/22/18 10:08 08/22/18 11:00 08/22/18 11:13 Temperature Pulse Rate 99 H 107 H 96 H Respiratory Rate Blood Pressure 107/67 Pulse Oximetry 100 100 08/22/18 12:00 08/22/18 12:01 08/22/18 12:37 Temperature 99.0 F Pulse Rate 113 H 113 H 123 H Respiratory Rate Blood Pressure 120/89 87/64 L Pulse Oximetry 100 100 100 08/22/18 13:00 08/22/18 14:00 08/22/18 15:00 Temperature Pulse Rate 125 H 112 H 104 H Respiratory Rate Blood Pressure 93/65 L Pulse Oximetry 100 100 100 08/22/18 15:47 08/22/18 16:00 08/22/18 17:00 Temperature Pulse Rate 103 H 103 H Respiratory Rate 15 Blood Pressure 101/76 Pulse Oximetry 100 100 100 08/22/18 18:00 08/22/18 18:01 08/22/18 19:17 Temperature 99.3 F Pulse Rate 97 H 97 H 100 H Respiratory Rate 18 Blood Pressure 119/86 Pulse Oximetry 100 100 Intake & Output 08/22/18 08/22/18 08/23/18 06:59 18:59 06:59 Intake Total 1182 / 1182 1464 / 1464 Output Total 2024 / 2024 2270 / 2270 Balance -843 / -843 -806 / -806 Weight 74.5 kg Intake: IV 500 / 500 1250 / 1250 Bumex Inj 25 mg In 100 ml @ 2 100 / 100 100 / 100 MG/HR 8 mls/hr IV.CONT .[id number] [facility] Rx#:[id number] Flexbumin 25% Inj 100 ML @ 60 200 / 200 200 / 200 mls/hr IV.SIG Q6HR [facility] Rx#: [id number] Azithromycin Inj 500 MG In NS 250 / 250 Inj 250 ML @ 250 mls/hr IV.SIG Q24H [facility] Rx#:[id number] Maxipime Inj 2,000 MG In NS Inj 100 / 100 100 ML @ 200 mls/hr IV.SIG Q24H [facility] Rx#:[id number] KCl 20 mEq Premix Inj 20 meq In 400 / 400 100 ml @ 50 mls/hr IV.SIG Q2H [facility] Rx#:[id number] Flagyl 500 MG Inj 100 ML @ 100 200 / 200 200 / 200 mls/hr IV.SIG Q8H [facility] Rx#: [id number] Oral 0 / 0 Tube Feeding 502 / 502 214 / 214 Tube Irrigant 180 / 180 Output: Urine Amount (Catheter) 1425 / 1425 1700 / 1700 Indwelling Urethral Catheter 1425 / 1425 1700 / 1700 Chest Tube Drainage 600 / 600 570 / 570 Right Mid-Axillary Chest 600 / 600 570 / 570 Other: Date of Last Bowel Movement 08/21/18 08/21/18 # Bowel Movements 0 0 <Amelia Phoenix - 08/22/18 19:47> Vital Signs 08/21/18 10:00 08/21/18 10:01 08/21/18 11:00 Temperature Pulse Rate 91 H 85 Respiratory Rate 18 Blood Pressure 104/75 Pulse Oximetry 100 100 100 08/21/18 12:00 08/21/18 13:00 08/21/18 13:08 Temperature 96.4 F L Pulse Rate 92 H 96 H Respiratory Rate 22 Blood Pressure 97/74 L Pulse Oximetry 100 100 100 08/21/18 14:00 08/21/18 14:18 08/21/18 15:00 Temperature Pulse Rate 94 H 94 H 96 H Respiratory Rate Blood Pressure 101/69 Pulse Oximetry 100 100 100 08/21/18 16:00 08/21/18 16:09 08/21/18 17:00 Temperature 99.2 F Pulse Rate 101 H 104 H Respiratory Rate 19 Blood Pressure Pulse Oximetry 100 100 100 08/21/18 18:00 08/21/18 19:00 08/21/18 19:38 Temperature 99.2 F Pulse Rate 109 H 110 H Respiratory Rate 21 Blood Pressure Pulse Oximetry 100 99 98 08/21/18 20:00 08/21/18 21:00 08/21/18 22:00 Temperature 99.8 F H Pulse Rate 94 H 97 H 95 H Respiratory Rate 19 Blood Pressure Pulse Oximetry 100 100 100 08/21/18 23:00 08/22/18 00:00 08/22/18 00:30 Temperature 98.9 F Pulse Rate 96 H 95 H Respiratory Rate 19 18 Blood Pressure Pulse Oximetry 99 99 99 08/22/18 01:00 08/22/18 02:00 08/22/18 03:00 Temperature Pulse Rate 85 90 89 Respiratory Rate Blood Pressure Pulse Oximetry 100 100 100 08/22/18 04:00 08/22/18 04:15 08/22/18 05:00 Temperature 98.6 F Pulse Rate 88 96 H Respiratory Rate 16 Blood Pressure Pulse Oximetry 100 100 100 08/22/18 06:00 08/22/18 07:00 08/22/18 07:50 Temperature Pulse Rate 92 H 95 H Respiratory Rate 14 Blood Pressure Pulse Oximetry 100 100 100 Intake & Output 08/21/18 08/22/18 08/22/18 18:59 06:59 18:59 Intake Total 1116 / 1116 1182 / 1182 400 / 400 Output Total 1999 / 2024 Balance -884 / -884 -843 / -843 400 / 400 Weight 74.5 kg Intake: IV 650 / 650 500 / 500 400 / 400 Bumex Inj 25 mg In 100 ml @ 2 100 / 100 100 / 100 MG/HR 8 mls/hr IV.CONT .[id number] [facility] Rx#:[id number] Flexbumin 25% Inj 100 ML @ 60 100 / 100 200 / 200 100 / 100 mls/hr IV.SIG Q6HR [facility] Rx#: [id number] Azithromycin Inj 500 MG In NS 250 / 250 Inj 250 ML @ 250 mls/hr IV.SIG Q24H [facility] Rx#:[id number] Maxipime Inj 2,000 MG In NS Inj 100 / 100 100 ML @ 200 mls/hr IV.SIG Q24H [facility] Rx#:[id number] KCl 20 mEq Premix Inj 20 meq In 200 / 200 100 ml @ 50 mls/hr IV.SIG Q2H [facility] Rx#:[id number] Flagyl 500 MG Inj 100 ML @ 100 100 / 100 200 / 200 100 / 100 mls/hr IV.SIG Q8H [facility] Rx#: [id number] Tube Feeding 426 / 426 502 / 502 Tube Irrigant 40 / 40 180 / 180 Output: Urine Amount (Catheter) 1250 / 1250 1425 / 1425 Indwelling Urethral Catheter 1250 / 1250 1425 / 1425 Chest Tube Drainage 750 / 750 600 / 600 Right Mid-Axillary Chest 750 / 750 600 / 600 Other: Date of Last Bowel Movement 08/21/18 08/21/18 # Bowel Movements 0 <Dru Jane - 08/22/18 09:58> Narrative: GENERAL: Intubated and mechanically ventilated on 30% FiO2. SKIN: warm and dry. HEAD: Normocephalic. NECK: Intubated, central line in left jugular. Icteric sclera appreciated. CARDIOVASCULAR: Regular rate and rhythm with no murmurs, rubs or gallops. RESPIRATORY: Clear to auscultation bilaterally, chest tube in place on right side. GASTROINTESTINAL: Abdomen soft, non-tender, nondistended. On tube feeds. EXTREMITIES: Mild lower extremity edema. NEUROLOGICAL: Not responsive. <Dru Jane - 08/22/18 10:42> - Urinary Catheter Management Indwelling Urethral Catheter Cath placed during this visit: no <Cristiane Phoenixe - 08/22/18 19:47> yes <Dru Jane - 08/22/18 10:42> Reason for continuing: Other continuation reason <Dru Jane - 08/22/18 09:58> Insertion date: 08/16/18 <Dru Jane 08/22/18 09:58> Assessment and Plan - Assessment (1) Severe sepsis Code(s): A41.9 - Sepsis, unspecified organism; R65.20 - Severe sepsis without septic shock Status: Acute (2) Pneumonia Code(s): J18.9 - Pneumonia, unspecified organism Status: Acute (3) Acute exacerbation of CHF (congestive heart failure) Code(s): I50.9 - Heart failure, unspecified Status: Acute (4) Acute on chronic kidney failure Code(s): N17.9 - Acute kidney failure, unspecified; N18.9 - Chronic kidney disease, unspecified Status: Acute (5) Pleural effusion Code(s): J90 - Pleural effusion, not elsewhere classified Status: Acute (6) PEA (Pulseless electrical activity) Code(s): I46.9 - Cardiac arrest, cause unspecified Status: Resolved (7) Elevated troponin Code(s): R74.8 - Abnormal levels of other serum enzymes Status: Acute (8) Nutrition, metabolism, and development symptoms Code(s): R63.8 - Other symptoms and signs concerning food and fluid intake Status: Acute <Amelia Phoenix - 08/22/18 19:47> (1) Severe sepsis Code(s): A41.9 - Sepsis, unspecified organism; R65.20 - Severe sepsis without septic shock Status: Acute Plan: Community-acquired pneumonia complicated by lower extremity edema in the setting of CHF with an EF of 20%. Patient status post thoracentesis for pleural effusion. -Intubated mechanically ventilated -Patient continues to require pressor support with Levophed -Blood cultures (08/15): No growth to date -Pleural fluid Gram stain and cultures no growth to date -Metabolic encephalopathy secondary to sepsis, without evidence of significant anoxic injury from PEA arrest -Remains afebrile, WBC count within normal limits Plan: Per Quality Rn: Continue - Flagyl 500 mg every 8h (08/15) - Cefepime 2000 mg every 8 hours (08/15) Palliative care following, goals of care remain aggressive. Patient is day 6 of intubation, family will need to make decision on trach by upcoming Monday for long-term management. (2) Pneumonia Code(s): J18.9 - Pneumonia, unspecified organism Status: Acute Plan: Community acquired right-sided pneumonia with lactic acidosis. -DuoNeb every 2 hours as needed -Sputum culture uncollected -Respiratory panel uncollected -Continue with antibiotics per critical care team as dictated above -Repeat CXR 08/21 Stable chest x-ray with left basilar opacity representing either atelectasis, consolidation, and/or effusion. Right chest tube remains present and no pneumothorax is seen (3) Acute exacerbation of CHF (congestive heart failure) Code(s): I50.9 - Heart failure, unspecified Status: Acute Plan: -BNP 4000 on admission -Patient being diuresed with Bumex IV -Lower extremity edema greatly improved -Echo 08/17: EF 20%, fairly dilated left ventricle, severe mitral regurgitation -Patient diuresed 2.1 L over last 48 hours -Urine output is still poor at 1.5 ml/kg -Cardiology following and agree with current plan Per cardiology prognosis is poor. (4) Acute on chronic kidney failure Code(s): N17.9 - Acute kidney failure, unspecified; N18.9 - Chronic kidney disease, unspecified Status: Acute Plan: This patient stage III CKD with elevated creatinine above baseline on admission. Possibly due to decrease intravascular volume in the setting of sepsis. -Creatinine on admission 2.72 from baseline of 1.5. -Creatinine stable 2.5 this morning -Urine output over 2,100 mL in the last 24 hours, urine output -Nephrology Dr. James following Plan: -Continue Bumex infusion at 2 mg/h -Trend kidney function -Trend I/O -Hemodialysis not recommended by nephrology at this time -Nephrology following, appreciate rec Per nephrology prognosis is poor (5) Pleural effusion Code(s): J90 - Pleural effusion, not elsewhere classified Status: Acute Plan: Patient status post right sided thoracentesis (08/16/18) with evacuation of approximately 950 ml of slightly cloudy, yellow colored fluid was removed. -Patient underwent therapeutic right sided chest tube placement with pigtail that drained 950ml of slightly cloudy yellow fluid. -08/16: Pleural fluid showed 1,333 red blood cells with 230 nucleated cells. Fluid consistent with transudative process. Cultures show no growth to date. Plan: -Chest tube draining approx 1,350 ml in last 24 hours -Monitor chest tube output -Continue pulmonary care as stated above (6) PEA (Pulseless electrical activity) Code(s): I46.9 - Cardiac arrest, cause unspecified Status: Resolved Plan: Patient required ACLS for 9 minutes on 08/16/18 for PEA arrest -ROSC was achieved by critical care medicine Patient was intubated and sedated and treated with pressor support See treatment for severe sepsis (7) Elevated troponin Code(s): R74.8 - Abnormal levels of other serum enzymes Status: Acute Plan: Initial troponins of admission 0.10 with no chest pain or ST elevation or depression on EKG. ACS versus elevated troponins in the setting of chronic kidney disease and increased cardiac demand. Patient in SVT on admission now resolved. -EKG: Initial EKG showed supraventricular tachycardia -Chest x-ray consolidation right midlung and cardiomegaly -Initial troponin 0.10--> 0.45 Plan: -Plan to recheck troponins after patient is stabilized (8) Nutrition, metabolism, and development symptoms Code(s): R63.8 - Other symptoms and signs concerning food and fluid intake Status: Acute Plan: Fluids: Per speech pathology supervisor Electrolytes: Replete as needed Nutrition: Tube feeds with Nepro, Suplena 1.8 @ 50mL/hr w/ Beneprotein 1-pkt TID recommended by dietitian DVT prophylaxis: Hold Coumadin <Dru Jane - 08/22/18 10:22> - Attending Attestation Patient seen, examined, and discussed with resident team this morning. I agree with assessment and management as documented and discussed with me. Pt initially on CPAP this morning, but BP low a few hours in. at bedside - all questions answered. Appreciate specialists involved in this patient's care. <Amelia Phoenix - 08/22/18 19:47> <Dru Jane - Last Filed: 08/22/18 10:22> (3) Acute exacerbation of CHF (congestive heart failure) Qualifiers: Heart failure type: systolic Qualified Code(s): I50.23 - Acute on chronic systolic (congestive) heart failure (4) Acute on chronic kidney failure Qualifiers: Acute renal failure type: unspecified Chronic kidney disease stage: stage 4 ( severe) Qualified Code(s): N17.9 - Acute kidney failure, unspecified; N18.4 - Chronic kidney disease, stage 4 (severe) <Amelia Phoenix - Last Filed: 08/22/18 19:47> (3) Acute exacerbation of CHF (congestive heart failure) Qualifiers: Heart failure type: systolic Qualified Code(s): I50.23 - Acute on chronic systolic (congestive) heart failure (4) Acute on chronic kidney failure Qualifiers: Acute renal failure type: unspecified Chronic kidney disease stage: stage 4 ( severe) Qualified Code(s): N17.9 - Acute kidney failure, unspecified; N18.4 - Chronic kidney disease, stage 4 (severe) <Dru Jane - Last Filed: 08/22/18 10:22> (3) Acute exacerbation of CHF (congestive heart failure) Qualifiers: Heart failure type: systolic Qualified Code(s): I50.23 - Acute on chronic systolic (congestive) heart failure (4) Acute on chronic kidney failure Qualifiers: Acute renal failure type: unspecified Chronic kidney disease stage: stage 4 ( severe) Qualified Code(s): N17.9 - Acute kidney failure, unspecified; N18.4 - Chronic kidney disease, stage 4 (severe) <Amelia Phoenix - Last Filed: 08/22/18 19:47> (3) Acute exacerbation of CHF (congestive heart failure) Qualifiers: Heart failure type: systolic Qualified Code(s): I50.23 - Acute on chronic systolic (congestive) heart failure (4) Acute on chronic kidney failure Qualifiers: Acute renal failure type: unspecified Chronic kidney disease stage: stage 4 ( severe) Qualified Code(s): N17.9 - Acute kidney failure, unspecified; N18.4 - Chronic kidney disease, stage 4 (severe)
[2018-08-22] MEDS: Azithromycin Inj 500 MG in Sodium Chlor 0.9% Inj 250 ML IV.SIG SCH (11:47)
[2018-08-22] MEDS: Milrinone Inj 20 MG in Sodium Chlor 0.9% Inj 80 ML IV.CONT SCH (13:29)
--- NOTE | 2018-08-22 16:44 | P.PNNP ---
Subjective Interval history: Patient was seen, appears more alert, opened eyes. Creatinine improved today, is 2.50. K 2.7 this morning, IV replacement given. Patient on 30% FiO2. <Travis Carlton - Last Filed: 08/22/18 16:37> Physical Exam Vital signs: Vital Signs 08/21/18 17:00 08/21/18 18:00 08/21/18 19:00 Temperature 99.2 F Pulse Rate 104 H 109 H 110 H Respiratory Rate Blood Pressure Pulse Oximetry 100 100 99 08/21/18 19:38 08/21/18 20:00 08/21/18 21:00 Temperature 99.8 F H Pulse Rate 94 H 97 H Respiratory Rate 21 19 Blood Pressure Pulse Oximetry 98 100 100 08/21/18 22:00 08/21/18 23:00 08/22/18 00:00 Temperature 98.9 F Pulse Rate 95 H 96 H 95 H Respiratory Rate 19 Blood Pressure Pulse Oximetry 100 99 99 08/22/18 00:30 08/22/18 01:00 08/22/18 02:00 Temperature Pulse Rate 85 90 Respiratory Rate 18 Blood Pressure Pulse Oximetry 99 100 100 08/22/18 03:00 08/22/18 04:00 08/22/18 04:15 Temperature 98.6 F Pulse Rate 89 88 Respiratory Rate 16 Blood Pressure Pulse Oximetry 100 100 100 08/22/18 05:00 08/22/18 06:00 08/22/18 07:00 Temperature Pulse Rate 96 H 92 H 95 H Respiratory Rate Blood Pressure Pulse Oximetry 100 100 100 08/22/18 07:50 08/22/18 08:00 08/22/18 09:00 Temperature 98.8 F Pulse Rate 96 H 97 H Respiratory Rate 14 Blood Pressure Pulse Oximetry 100 100 100 08/22/18 10:00 08/22/18 10:08 08/22/18 11:00 Temperature Pulse Rate 88 99 H 107 H Respiratory Rate Blood Pressure 107/67 107/67 Pulse Oximetry 100 100 100 08/22/18 11:13 08/22/18 12:00 08/22/18 12:01 Temperature 99.0 F Pulse Rate 96 H 113 H 113 H Respiratory Rate Blood Pressure 120/89 Pulse Oximetry 100 100 08/22/18 12:37 08/22/18 13:00 08/22/18 14:00 Temperature Pulse Rate 123 H 125 H 112 H Respiratory Rate Blood Pressure 87/64 L 93/65 L Pulse Oximetry 100 100 100 08/22/18 15:00 08/22/18 15:47 08/22/18 16:00 Temperature Pulse Rate 104 H 103 H Respiratory Rate 15 Blood Pressure 101/76 Pulse Oximetry 100 100 100 Intake & Output 08/21/18 08/22/18 08/22/18 18:59 06:59 18:59 Intake Total 1116 / 1116 1182 / 1182 950 / 950 Output Total 1999 Balance -884 / -884 -843 / -843 950 / 950 Weight 74.5 kg Intake: IV 650 / 650 500 / 500 950 / 950 Bumex Inj 25 mg In 100 ml @ 2 100 / 100 100 / 100 MG/HR 8 mls/hr IV.CONT .[id number] ANAHI Rx#:[id number] Flexbumin 25% Inj 100 ML @ 60 100 / 100 200 / 200 200 / 200 mls/hr IV.SIG Q6HR ANAHI Rx#: [id number] Azithromycin Inj 500 MG In NS 250 / 250 250 / 250 Inj 250 ML @ 250 mls/hr IV.SIG Q24H ANAHI Rx#:[id number] Maxipime Inj 2,000 MG In NS Inj 100 / 100 100 / 100 100 ML @ 200 mls/hr IV.SIG Q24H ANAHI Rx#:[id number] KCl 20 mEq Premix Inj 20 meq In 300 / 300 100 ml @ 50 mls/hr IV.SIG Q2H NAAHI Rx#:[id number] Flagyl 500 MG Inj 100 ML @ 100 100 / 100 200 / 200 100 / 100 mls/hr IV.SIG Q8H ANAHI Rx#: [id number] Tube Feeding 426 / 426 502 / 502 Tube Irrigant 40 / 40 180 / 180 Output: Urine Amount (Catheter) 1250 / 1250 1425 / 1425 Indwelling Urethral Catheter 1250 / 1250 1425 / 1425 Chest Tube Drainage 750 / 750 600 / 600 Right Mid-Axillary Chest 750 / 750 600 / 600 Other: Date of Last Bowel Movement 08/21/18 08/21/18 08/21/18 # Bowel Movements 0 Narrative: GENERAL: Intubated and mechanically ventilated on 30% FiO2. SKIN: warm and dry. HEAD: Normocephalic. NECK: Intubated, central line in left jugular. Icteric sclera appreciated. CARDIOVASCULAR: Regular rate and rhythm with no murmurs, rubs or gallops. RESPIRATORY: Clear to auscultation bilaterally, chest tube in place on right side. GASTROINTESTINAL: Abdomen soft, non-tender, nondistended. On tube feeds. EXTREMITIES: Mild lower extremity edema. NEUROLOGICAL: Not responsive. - Urinary Catheter Management Indwelling Urethral Catheter Cath placed during this visit: yes Reason for continuing: Hourly intake/output Insertion date: 08/16/18 <Travis Carlton - Last Filed: 08/22/18 16:37> Vital signs: Vital Signs 08/21/18 19:00 08/21/18 19:38 08/21/18 20:00 Temperature 99.8 F H Pulse Rate 110 H 94 H Respiratory Rate 21 19 Blood Pressure Pulse Oximetry 99 98 100 08/21/18 21:00 08/21/18 22:00 08/21/18 23:00 Temperature Pulse Rate 97 H 95 H 96 H Respiratory Rate Blood Pressure Pulse Oximetry 100 100 99 08/22/18 00:00 08/22/18 00:30 08/22/18 01:00 Temperature 98.9 F Pulse Rate 95 H 85 Respiratory Rate 19 18 Blood Pressure Pulse Oximetry 99 99 100 08/22/18 02:00 08/22/18 03:00 08/22/18 04:00 Temperature 98.6 F Pulse Rate 90 89 88 Respiratory Rate Blood Pressure Pulse Oximetry 100 100 100 08/22/18 04:15 08/22/18 05:00 08/22/18 06:00 Temperature Pulse Rate 96 H 92 H Respiratory Rate 16 Blood Pressure Pulse Oximetry 100 100 100 08/22/18 07:00 08/22/18 07:50 08/22/18 08:00 Temperature 98.8 F Pulse Rate 95 H 96 H Respiratory Rate 14 Blood Pressure Pulse Oximetry 100 100 100 08/22/18 09:00 08/22/18 10:00 08/22/18 10:08 Temperature Pulse Rate 97 H 88 99 H Respiratory Rate Blood Pressure 107/67 107/67 Pulse Oximetry 100 100 100 08/22/18 11:00 08/22/18 11:13 08/22/18 12:00 Temperature 99.0 F Pulse Rate 107 H 96 H 113 H Respiratory Rate Blood Pressure Pulse Oximetry 100 100 08/22/18 12:01 08/22/18 12:37 08/22/18 13:00 Temperature Pulse Rate 113 H 123 H 125 H Respiratory Rate Blood Pressure 120/89 87/64 L Pulse Oximetry 100 100 100 08/22/18 14:00 08/22/18 15:00 08/22/18 15:47 Temperature Pulse Rate 112 H 104 H Respiratory Rate 15 Blood Pressure 93/65 L Pulse Oximetry 100 100 100 08/22/18 16:00 Temperature Pulse Rate 103 H Respiratory Rate Blood Pressure 101/76 Pulse Oximetry 100 Intake & Output 08/21/18 08/22/18 08/22/18 18:59 06:59 18:59 Intake Total 1116 / 1116 1182 / 1182 1250 / 1250 Output Total 1999 Balance -884 / -884 -843 / -843 1250 / 1250 Weight 74.5 kg Intake: IV 650 / 650 500 / 500 1250 / 1250 Bumex Inj 25 mg In 100 ml @ 2 100 / 100 100 / 100 100 / 100 MG/HR 8 mls/hr IV.CONT .[id number] ANAHI Rx#:[id number] Flexbumin 25% Inj 100 ML @ 60 100 / 100 200 / 200 200 / 200 mls/hr IV.SIG Q6HR ANAHI Rx#: [id number] Azithromycin Inj 500 MG In NS 250 / 250 250 / 250 Inj 250 ML @ 250 mls/hr IV.SIG Q24H ANAHI Rx#:[id number] Maxipime Inj 2,000 MG In NS Inj 100 / 100 100 / 100 100 ML @ 200 mls/hr IV.SIG Q24H ANAHI Rx#:[id number] KCl 20 mEq Premix Inj 20 meq In 400 / 400 100 ml @ 50 mls/hr IV.SIG Q2H ANAHI Rx#:[id number] Flagyl 500 MG Inj 100 ML @ 100 100 / 100 200 / 200 200 / 200 mls/hr IV.SIG Q8H ANAHI Rx#: [id number] Tube Feeding 426 / 426 502 / 502 Tube Irrigant 40 / 40 180 / 180 Output: Urine Amount (Catheter) 1250 / 1250 1425 / 1425 Indwelling Urethral Catheter 1250 / 1250 1425 / 1425 Chest Tube Drainage 750 / 750 600 / 600 Right Mid-Axillary Chest 750 / 750 600 / 600 Other: Date of Last Bowel Movement 08/21/18 08/21/18 08/21/18 # Bowel Movements 0 - Urinary Catheter Management Indwelling Urethral Catheter Cath placed during this visit: no <Pedro López - Last Filed: 08/22/18 18:33> Assessment and Plan - Assessment (1) Acute kidney injury superimposed on CKD Code(s): N17.9 - Acute kidney failure, unspecified; N18.9 - Chronic kidney disease, unspecified Status: Acute Plan: Patient previously coded had PEA arrest, patient is intubated. Renal function has improved today, Creatinine is 2.50. Poor candidate for renal replacement therapy. Stop Bumex drip. Start Diuril 500mg BID, monitor urine output. Monitor fluid and electrolytes. Avoid nephrotoxic agents. Prognosis is poor. Palliative care is following. (2) Acute exacerbation of congestive heart failure Code(s): I50.9 - Heart failure, unspecified Status: Acute Plan: Cardiology following and will continue with medical management at this time. She has cardiomyopathy EF 20%. (3) Elevated troponin Code(s): R74.8 - Abnormal levels of other serum enzymes Status: Acute Plan: Cardiology following. Per note review, will recheck levels once patient stable. (4) Severe sepsis Code(s): A41.9 - Sepsis, unspecified organism; R65.20 - Severe sepsis without septic shock Status: Acute Plan: Patient on Flagyl, Azithromycin, and Cefepime. (5) Pneumonia Code(s): J18.9 - Pneumonia, unspecified organism Status: Acute Plan: chest xray showed stable left basilar opacity representing either atelectasis, consolidations, and/or effusion. No pneumothorax. Patient has right chest tube in place. (6) Pleural effusion Code(s): J90 - Pleural effusion, not elsewhere classified Status: Acute Plan: Will discontinue Bumex drip and start on Diuril. <Travis Carlton - Last Filed: 08/22/18 16:37> - Assessment (1) Acute kidney injury superimposed on CKD Code(s): N17.9 - Acute kidney failure, unspecified; N18.9 - Chronic kidney disease, unspecified Status: Acute (2) Acute exacerbation of congestive heart failure Code(s): I50.9 - Heart failure, unspecified Status: Acute (3) Elevated troponin Code(s): R74.8 - Abnormal levels of other serum enzymes Status: Acute (4) Severe sepsis Code(s): A41.9 - Sepsis, unspecified organism; R65.20 - Severe sepsis without septic shock Status: Acute (5) Pneumonia Code(s): J18.9 - Pneumonia, unspecified organism Status: Acute (6) Pleural effusion Code(s): J90 - Pleural effusion, not elsewhere classified Status: Acute - Attending Attestation patient was seen and examined. Agree with above assessment and plan. Poor prognosis. Replace potassium. <Pedro López - Last Filed: 08/22/18 18:33>
--- NOTE | 2018-08-22 16:46 | P.PNPAL ---
Reason for Visit Reason for visit: a. To assist with evaluation and management of symptoms including: Shortness of breath, at risk for pain, debility b. To assist medical decision maker(s) with: better understanding of current medical conditions; weighing benefits/burdens of medical treatment options; making medical treatment decisions. Subjective Subjective/Interval History: Call from nurseShasha to request someone come speak with family (per Daughter in law request) to provide medical update. Call from Dr. Darling to report need for trach decision by Monday08/27/18. Discussed with Dr. Diamond who indicates he hopes to be able to medically extubate if encephalopathy improves. He plans for EEG and neuro consult in AM. If able to be medically extubated will need decision about reintubation, and trach and PEG if plans to reintubate. If unable to be medically extubated will need trach and PEG decision. Upon my arrival, daughter in law and at bedside. Patient opens one eye breifly during my visit, uncertain if purposeful. She does nto follow any commands. She remains on mech vent. Remains on Bumex drip. Family/Friend Interactions: Spoke with spouse and daughter in law at bedside. Medical update provided. Reviewed concern about encephalopathy and plan for EEG and neuro consult in AM. We discussed Dr. Diamond hopeful for medical extubation on the comings days depending on clinical course. Reviewed need for decisions regarding reintubation if medically extubated and trach/PEG decisions if family wants reintubation or if unable to be medically extubated. Family verbalizes understanding. Palliative care number provided. Will continue to follow to provide updates as decisions are needed in the coming days. Notified nurse and Dr. Darling of conversation. Advance Directives Living Will: Never completed Health Care Surrogate: Never completed Durable Power of Track Laminating Machine Tender: Never completed Health Care Surrogate Name and Number: HCP: Rey Willis [phone] Documented care wishes:: Never completed advanced directives. . Objective Vital Signs: Vital Signs 08/21/18 17:00 08/21/18 18:00 08/21/18 19:00 Temperature 99.2 F Pulse Rate 104 H 109 H 110 H Respiratory Rate Blood Pressure Pulse Oximetry 100 100 99 08/21/18 19:38 08/21/18 20:00 08/21/18 21:00 Temperature 99.8 F H Pulse Rate 94 H 97 H Respiratory Rate 21 19 Blood Pressure Pulse Oximetry 98 100 100 08/21/18 22:00 08/21/18 23:00 08/22/18 00:00 Temperature 98.9 F Pulse Rate 95 H 96 H 95 H Respiratory Rate 19 Blood Pressure Pulse Oximetry 100 99 99 08/22/18 00:30 08/22/18 01:00 08/22/18 02:00 Temperature Pulse Rate 85 90 Respiratory Rate 18 Blood Pressure Pulse Oximetry 99 100 100 08/22/18 03:00 08/22/18 04:00 08/22/18 04:15 Temperature 98.6 F Pulse Rate 89 88 Respiratory Rate 16 Blood Pressure Pulse Oximetry 100 100 100 08/22/18 05:00 08/22/18 06:00 08/22/18 07:00 Temperature Pulse Rate 96 H 92 H 95 H Respiratory Rate Blood Pressure Pulse Oximetry 100 100 100 08/22/18 07:50 08/22/18 08:00 08/22/18 09:00 Temperature 98.8 F Pulse Rate 96 H 97 H Respiratory Rate 14 Blood Pressure Pulse Oximetry 100 100 100 08/22/18 10:00 08/22/18 10:08 08/22/18 11:00 Temperature Pulse Rate 88 99 H 107 H Respiratory Rate Blood Pressure 107/67 107/67 Pulse Oximetry 100 100 100 08/22/18 11:13 08/22/18 12:00 08/22/18 12:01 Temperature 99.0 F Pulse Rate 96 H 113 H 113 H Respiratory Rate Blood Pressure 120/89 Pulse Oximetry 100 100 08/22/18 12:37 08/22/18 13:00 08/22/18 14:00 Temperature Pulse Rate 123 H 125 H 112 H Respiratory Rate Blood Pressure 87/64 L 93/65 L Pulse Oximetry 100 100 100 08/22/18 15:00 08/22/18 15:47 08/22/18 16:00 Temperature Pulse Rate 104 H 103 H Respiratory Rate 15 Blood Pressure 101/76 Pulse Oximetry 100 100 100 Intake & Output 08/21/18 08/22/18 08/22/18 18:59 06:59 18:59 Intake Total 1116 / 1116 1182 / 1182 950 / 950 Output Total 1999 Balance -884 / -884 -843 / -843 950 / 950 Weight 74.5 kg Intake: IV 650 / 650 500 / 500 950 / 950 Bumex Inj 25 mg In 100 ml @ 2 100 / 100 100 / 100 MG/HR 8 mls/hr IV.CONT .[id number] ANAHI Rx#:[id number] Flexbumin 25% Inj 100 ML @ 60 100 / 100 200 / 200 200 / 200 mls/hr IV.SIG Q6HR ANAHI Rx#: [id number] Azithromycin Inj 500 MG In NS 250 / 250 250 / 250 Inj 250 ML @ 250 mls/hr IV.SIG Q24H ANAHI Rx#:[id number] Maxipime Inj 2,000 MG In NS Inj 100 / 100 100 / 100 100 ML @ 200 mls/hr IV.SIG Q24H ANAHI Rx#:[id number] KCl 20 mEq Premix Inj 20 meq In 300 / 300 100 ml @ 50 mls/hr IV.SIG Q2H ANAHI Rx#:[id number] Flagyl 500 MG Inj 100 ML @ 100 100 / 100 200 / 200 100 / 100 mls/hr IV.SIG Q8H ANAHI Rx#: [id number] Tube Feeding 426 / 426 502 / 502 Tube Irrigant 40 / 40 180 / 180 Output: Urine Amount (Catheter) 1250 / 1250 1425 / 1425 Indwelling Urethral Catheter 1250 / 1250 1425 / 1425 Chest Tube Drainage 750 / 750 600 / 600 Right Mid-Axillary Chest 750 / 750 600 / 600 Other: Date of Last Bowel Movement 08/21/18 08/21/18 08/21/18 # Bowel Movements 0 Physical Exam: CONSTITUTIONAL/GENERAL: This is an adequately nourished patient, intubated on [facility] vent. TUBES/LINES/DRAINS: ETT, OG tube, TLC left IJ, femoral A-line, PIV, SCDs SKIN: No jaundice, rashes, or lesions. Ecchymoses on upper extremities. Healed scar to left upper chest wall. Skin temperature appropriate. Not diaphoretic. EYES: Eyes closed. ENT: Nose without bleeding or purulent drainage. Endotracheally intubated. CARDIOVASCULAR: Regular rate and rhythm. AICD to right upper chest wall. RESPIRATORY/CHEST: Symmetric, unlabored respirations on vent. Crackles right. GASTROINTESTINAL: Abdomen soft, nondistended. No guarding. Bowel sounds present. GENITOURINARY: Without palpable bladder distension. Bradley catheter in place. MUSCULOSKELETAL: right hand trace edema. No mottling or clubbing. NEUROLOGICAL: Intubated, off sedation. Opens one eye briefly uncertain if purposeful. Not following commands. PSYCHIATRIC: Off sedation. . Diagnostic Tests Laboratory: Laboratory Results - last 72 hr 08/19/18 08/20/18 08/20/18 17:00 05:18 05:18 WBC 8.6 RBC 3.75 L Hgb 9.0 L Hct 27.7 L MCV 73.7 L MCH 24.0 L MCHC 32.6 RDW 18.8 H Plt Count 140 L MPV 10.9 Prelim Diff (Auto) Neut % (Auto) Lymph % (Auto) Becker % (Auto) Eos % (Auto) Baso % (Auto) Neut # (Auto) Lymph # (Auto) Becker # (Auto) Eos # (Auto) Baso # (Auto) WBC Differential Diff Scan Differential Comment Platelet Estimate Platelet Morphology Basophilic Stippling Target Cells Ovalocytes Acanthocytes (Spur) Keratocytes PT INR Sodium 146 H 144 Potassium 3.5 3.6 Chloride 105 101 Carbon Dioxide 24.7 27.2 Anion Gap 16 H 16 H BUN 70 H 78 H Creatinine 2.92 H 3.19 H Estimated GFR 19 L 18 L Random Glucose 94 101 Calcium 8.1 L 9.3 D Magnesium 1.9 Total Bilirubin 4.2 H 5.3 H AST 35 30 ALT 24 24 Alkaline Phosphatase 47 46 Total Protein 5.9 L 6.2 L Albumin 3.8 4.2 Pleural pH Pleural RBC Pleural Nuc Cells Pleural Neutrophils Pleural Lymphocytes Pleural Monocytes Pleural Mesothelial Pleural Fluid Comment Pleural Total Protein Pleural LDH Pleural Glucose 08/20/18 08/20/18 08/20/18 08:46 10:40 10:40 WBC RBC Hgb Hct MCV MCH MCHC RDW Plt Count MPV Prelim Diff (Auto) Neut % (Auto) Lymph % (Auto) Becker % (Auto) Eos % (Auto) Baso % (Auto) Neut # (Auto) Lymph # (Auto) Becker # (Auto) Eos # (Auto) Baso # (Auto) WBC Differential Diff Scan Differential Comment Platelet Estimate Platelet Morphology Basophilic Stippling Target Cells Ovalocytes Acanthocytes (Spur) Keratocytes PT 23.1 H INR 2.3 Sodium Potassium Chloride Carbon Dioxide Anion Gap BUN Creatinine Estimated GFR Random Glucose Calcium Magnesium Total Bilirubin AST ALT Alkaline Phosphatase Total Protein Albumin Pleural pH 8.0 Pleural RBC 2064 H Pleural Nuc Cells 270 H Pleural Neutrophils 26 Pleural Lymphocytes 49 Pleural Monocytes 6 Pleural Mesothelial 19 Pleural Fluid Comment Pleural Total Protein 3.2 Pleural LDH 148 Pleural Glucose 89 08/21/18 08/21/18 08/22/18 03:05 03:05 03:23 WBC 8.9 9.4 RBC 3.81 L 4.33 Hgb 9.2 L 10.3 L Hct 27.8 L 31.3 L MCV 72.8 L 72.4 L MCH 24.1 L 23.7 L MCHC 33.2 32.8 RDW 18.8 H 19.3 H Plt Count 124 L 135 L MPV 10.7 11.0 Prelim Diff (Auto) Slide review pending Neut % (Auto) 90.1 H Lymph % (Auto) 2.1 L Becker % (Auto) 6.4 Eos % (Auto) 1.1 Baso % (Auto) 0.3 Neut # (Auto) 8.5 H Lymph # (Auto) 0.2 L Becker # (Auto) 0.6 Eos # (Auto) 0.1 Baso # (Auto) 0.0 WBC Differential . Diff Scan Auto diff confirmed Differential Comment . Platelet Estimate Low L Platelet Morphology Normal Basophilic Stippling Moderate H Target Cells 1+ H Ovalocytes 1+ H Acanthocytes (Spur) 1+ H Keratocytes Occ H PT INR Sodium 148 H Potassium 3.1 L Chloride 104 Carbon Dioxide 31.8 Anion Gap 12 BUN 76 H Creatinine 2.82 H Estimated GFR 20 L Random Glucose 97 Calcium 8.8 Magnesium 1.9 Total Bilirubin 5.3 H AST 23 ALT 20 Alkaline Phosphatase 37 L Total Protein 6.2 L Albumin 4.2 Pleural pH Pleural RBC Pleural Nuc Cells Pleural Neutrophils Pleural Lymphocytes Pleural Monocytes Pleural Mesothelial Pleural Fluid Comment Pleural Total Protein Pleural LDH Pleural Glucose 08/22/18 03:23 WBC RBC Hgb Hct MCV MCH MCHC RDW Plt Count MPV Prelim Diff (Auto) Neut % (Auto) Lymph % (Auto) Becker % (Auto) Eos % (Auto) Baso % (Auto) Neut # (Auto) Lymph # (Auto) Becker # (Auto) Eos # (Auto) Baso # (Auto) WBC Differential Diff Scan Differential Comment Platelet Estimate Platelet Morphology Basophilic Stippling Target Cells Ovalocytes Acanthocytes (Spur) Keratocytes PT INR Sodium 151 H Potassium 2.7 L* Chloride 106 Carbon Dioxide 33.9 H Anion Gap 11 BUN 74 H Creatinine 2.50 H Estimated GFR 23 L Random Glucose 170 H Calcium 8.8 Magnesium Total Bilirubin 7.1 H AST 42 H ALT 24 Alkaline Phosphatase 65 Total Protein 6.3 L Albumin 4.4 Pleural pH Pleural RBC Pleural Nuc Cells Pleural Neutrophils Pleural Lymphocytes Pleural Monocytes Pleural Mesothelial Pleural Fluid Comment Pleural Total Protein Pleural LDH Pleural Glucose Result Diagrams: 08/22/18 03:23 08/22/18 03:23 Microbiology: Microbiology 08/20/18 10:40 Gram Stain - Final Fluid - Pleural fluid Body Fluid Culture - Preliminary No growth in 48 hours 08/15/18 12:40 Aerobic Blood Culture - Final Blood - Peripheral No growth in 5 days Anaerobic Blood Culture - Final No growth in 5 days 08/15/18 12:51 Aerobic Blood Culture - Final Blood - Peripheral No growth in 5 days Anaerobic Blood Culture - Final No growth in 5 days Imaging: Head CT 08/17/18 00:00 CONCLUSION: 1. No acute intracranial abnormality demonstrated. 2. 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 . Chest X-Ray 08/21/18 06:00 CONCLUSION: Stable chest x-ray with left basilar opacity representing either atelectasis, consolidation, and/or effusion. Right chest tube remains present and no pneumothorax is seen. Procedures: 08/15/18-placement of left IJ central line 08/16/18-endotracheal intubation after PEA arrest 08/16/18-bedside thoracentesis with removal of 950 mL's of slightly cloudy, yellow colored fluid. 08/16/18-right femoral arterial line placement 08/20/18-right chest tube placement . Assessment and Plan - Disease Oriented Problem List (1) Severe sepsis (2) Cardiogenic shock (3) Systolic heart failure (4) Cardiomyopathy (5) Pulmonary edema (6) Pneumonia (7) Lactic acidemia (8) Supratherapeutic INR (9) Hypertension - Symptom Scale (1) Shortness of breath Comment: History of congestive heart failure, chronic kidney disease and recent PEA (2) At risk for pain Comment: Patient went into PEA arrest on 08/16/18 (3) Debility Comment: Progressive. Patient has had multiple hospitalizations in the past 12 months. Pertinent Non-Medical Issues: Psychosocial: Patient is originally from [place]. She moved to [place] in 2014. Patient worked in [employer] 2007. 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 Patient has been to her current for 43 years. They have 2 adult sons, Rey Hodge who lives locally and another son who lives in [place]. She has 6 grandchildren. Spiritual: Patient is Advent-open to food consultant visits. 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 Legal: Never completed advanced directives. Ethical issues impacting care: None identified at this time . Important Contacts: Spouse-Rey Funes [phone] Son-Rey Funes [phone] Daughter-Tracey FunesIapxt-[phone] Prognosis: Mrs. Funes is a 67-year-old old with a medical history significant for congestive heart failure with an ejection fraction less than 20%, coronary artery disease, ventricular tachycardia with a [employer] ICD, pulmonary embolism , chronic kidney disease stage III, hypertension, cardiovascular accident with residual left-sided weakness in 2017. Patient presented to the emergency room on 08/15/2018 for further evaluation of progressive weakness, shortness of breath, lower extremity edema and productive cough. Patient's hospital course complicated with PEA cardiac arrest, worsening lung function requiring chest tube placement, and worsening renal function despite aggressive diuresis. Given multiple ongoing comorbidities, patient remains at high risk for further complications, deterioration and decline. . Code Status: Full Code Plan: PLAN: Legal decision maker: Patient is currently intubated, sedated. It is not known whether the patient will regain capacity to participate in medical decision making. She is . According to [place] statute patient's spouse Rey Funes Sr will serve as patient's healthcare proxy decision-maker. Goals: Goals remain aggressive at this time. Spoke with spouse and daughter in law at bedside. Medical update provided. Reviewed concern about encephalopathy and plan for EEG and neuro consult in AM. We discussed Dr. Diamond hopeful for medical extubation on the comings days depending on clinical course. Reviewed need for decisions regarding reintubation if medically extubated and trach/PEG decisions if family wants reintubation or if unable to be medically extubated. Family verbalizes understanding. Palliative care number provided. Will continue to follow to provide updates as decisions are needed in the coming days. Notified nurse and Dr. Darling of conversation. CODE STATUS: Full code SYMPTOMS: * Shortness of breath: Patient has history of CHF, and currently has pneumonia and acute on chronic kidney failure. Intubated on 08/16/18 after PEA arrest. Patient has had thoracentesis and has recurrent pleural effusions requiring thoracotomy and placement of bilateral chest tubes. Patient is on antibiotics. Remains off sedation. * At risk for pain: Patient is currently bedbound and had PEA arrest requiring CPR on 08/16/17 and intubation. Patient has had multiple procedures done including thoracentesis, thoracotomy with chest tube placement, central line placement and arterial line placement which can all be sources of pain. Patient is currently not showing any signs of pain. Remains of sedation. * Debility. Progressive. Patient has multiple ongoing comorbidities. She has had multiple (x7) hospitalizations in the past year. Patient has been increasingly getting weak due to her failing heart. Patient will most likely continue to deteriorate given her heart condition, she will most likely be not able to effectively participate in physical therapy/rehabilitation. Palliative care will continue to follow the patient during hospital course as condition evolves, to assist patient/decision-maker with understanding of their medical conditions, weighing benefits/burdens of treatment options, for clarification of goals of treatment. Additionally will assist with any symptoms of palliative concern Attestation Attestation: To help prompt me to consider important information that might be impacting today's encounter and assessment, information from prior notes written by myself or my colleagues may have been "brought forward" into today's note. My signature on this note, however, is an attestation that I personally performed the exam, history, and/or decision-making noted today, and, unless otherwise indicated, the interactions with patient, family, and staff as well as the review of records all occurred today. I also attest that the listed assessment and stated plan reflect my best clinical judgment today based on the combination of historical information, prior notes, and today's exam/ interactions. When time spent is documented, it refers only to time spent today by the signer, or if indicated, combined time spent today by collaborating physician/nurse practitioner.
[2018-08-22] MEDS: Potassium Chlor 40 mEq Premix 40 MEQ/100 ML PIGGYBACK IV.SIG SCH (20:59)
[2018-08-22] MEDS ORDERED: Metoprolol Inj 5 MG/5 ML Vial ONE (23:39)
[2018-08-22] MEDS ORDERED: Metoprolol Inj 5 MG/5 ML Vial IV.PUSH ONE (23:45)
[2018-08-23] MEDS: Albumin Human 25% Inj 100 ML IV.SIG SCH ×5 (00:58→23:49)
[2018-08-23] MEDS: Potassium Chlor 40 mEq Premix 40 MEQ/100 ML PIGGYBACK IV.SIG SCH (01:10)
[2018-08-23] MEDS: dilTIAZem Inj 125 MG in Sodium Chlor 0.9% Inj 100 ML IV.CONT PRN (05:57)
--- NOTE | 2018-08-23 06:42 | P.PNFP ---
Subjective Interval history: Patient was seen at bedside this morning in the presence of her . There were no acute events overnight. This morning patient was more arousable and able to shake her head no to feeling any pain. Patient was also able to follow commands and squeeze hand when asked to. A brief synopsis of her admission and care was also discussed with her in the presence of her . Her reports that he feels engaged, informed and had no further questions. <Phong MiguelDru Holli - 08/23/18 09:47> Results - Labs Result diagrams: 08/23/18 09:00 08/23/18 09:00 <LizettAmelia - 08/23/18 17:17> Abnormal lab results 08/22/18 08/23/18 08/23/18 Range/Units 17:50 09:00 09:00 RBC 3.99 L (4.00-5.30) mil/mm3 Hgb 9.4 L (11.6-15.3) gm/dL Hct 29.2 L (35.0-46.0) % MCV 73.2 L (80.0-100.0) fL MCH 23.7 L (27.0-34.0) pg RDW 19.5 H (11.6-17.2) % Plt Count 113 L (150-450) th/mm3 MPV 11.4 H (7.0-11.0) fL Neut % (Auto) 83.4 H (16.0-70.0) % Lymph % (Auto) 5.7 L (9.0-44.0) % Wetzel % (Auto) 9.9 H (0.0-8.0) % Neut # (Auto) 9.0 H (1.8-7.7) th/mm3 Lymph # (Auto) 0.6 L (1.0-4.8) th/mm3 Wetzel # (Auto) 1.1 H (0.0-0.9) th/mm3 Platelet Estimate Low L (Normal) Platelet Morphology Enlarged H (Normal) Target Cells 1+ H (None) Ovalocytes 1+ H (None) Acanthocytes (Spur) 1+ H (None) Keratocytes 1+ H (None) PT 20.5 H (9.8-11.6) sec APTT 35.9 H (23.4-31.7) sec Sodium (136-145) meq/L Potassium 3.1 L (3.5-5.1) meq/L Chloride (98-107) meq/L Carbon Dioxide (21.0-32.0) meq/L BUN (7-18) mg/dL Creatinine (0.50-1.00) mg/dL Estimated GFR (>89) mL/min Random Glucose (74-106) mg/dL 08/23/18 Range/Units 09:00 RBC (4.00-5.30) mil/mm3 Hgb (11.6-15.3) gm/dL Hct (35.0-46.0) % MCV (80.0-100.0) fL MCH (27.0-34.0) pg RDW (11.6-17.2) % Plt Count (150-450) th/mm3 MPV (7.0-11.0) fL Neut % (Auto) (16.0-70.0) % Lymph % (Auto) (9.0-44.0) % Wetzel % (Auto) (0.0-8.0) % Neut # (Auto) (1.8-7.7) th/mm3 Lymph # (Auto) (1.0-4.8) th/mm3 Wetzel # (Auto) (0.0-0.9) th/mm3 Platelet Estimate (Normal) Platelet Morphology (Normal) Target Cells (None) Ovalocytes (None) Acanthocytes (Spur) (None) Keratocytes (None) PT (9.8-11.6) sec APTT (23.4-31.7) sec Sodium 152 H (136-145) meq/L Potassium (3.5-5.1) meq/L Chloride 111 H (98-107) meq/L Carbon Dioxide 33.3 H (21.0-32.0) meq/L BUN 82 H (7-18) mg/dL Creatinine 2.33 H (0.50-1.00) mg/dL Estimated GFR 25 L (>89) mL/min Random Glucose 133 H (74-106) mg/dL Short CBC 08/23/18 Range/Units 09:00 WBC 10.7 (4.0-11.0) th/mm3 Hgb 9.4 L (11.6-15.3) gm/dL Hct 29.2 L (35.0-46.0) % Plt Count 113 L (150-450) th/mm3 [facility] 08/22/18 08/23/18 17:50 09:00 Sodium 152 H Potassium 3.1 L 3.5 Chloride 111 H Carbon Dioxide 33.3 H BUN 82 H Creatinine 2.33 H Calcium 9.3 <Amelia Phoenix - 08/23/18 17:17> Abnormal lab results 08/22/18 08/22/18 Range/Units 03:23 17:50 Platelet Estimate Low L (Normal) Basophilic Stippling Moderate H (None) Target Cells 1+ H (None) Ovalocytes 1+ H (None) Acanthocytes (Spur) 1+ H (None) Keratocytes Occ H (None) Potassium 3.1 L (3.5-5.1) meq/L [facility] 08/22/18 17:50 Potassium 3.1 L <Phong Dru Miguel Holli - 08/23/18 06:42> Physical Exam Vital signs: Vital Signs 08/22/18 18:00 08/22/18 18:01 08/22/18 19:00 Temperature 99.3 F Pulse Rate 97 H 97 H 99 H Respiratory Rate Blood Pressure 119/86 Pulse Oximetry 100 100 100 08/22/18 19:17 08/22/18 20:00 08/22/18 20:06 Temperature 99.3 F Pulse Rate 100 H 94 H Respiratory Rate 18 13 Blood Pressure 113/85 Pulse Oximetry 100 100 08/22/18 21:00 08/22/18 21:09 08/22/18 22:00 Temperature Pulse Rate 94 H 97 H 93 H Respiratory Rate Blood Pressure 111/86 Pulse Oximetry 100 100 100 08/22/18 22:07 08/22/18 23:00 08/23/18 00:00 Temperature 99.1 F Pulse Rate 93 H 97 H 87 Respiratory Rate Blood Pressure 112/80 98/78 L Pulse Oximetry 100 100 100 08/23/18 00:25 08/23/18 01:00 08/23/18 02:00 Temperature Pulse Rate 90 94 H Respiratory Rate 14 Blood Pressure Pulse Oximetry 100 100 100 08/23/18 02:02 08/23/18 03:00 08/23/18 04:00 Temperature Pulse Rate 95 H 100 H 100 H Respiratory Rate Blood Pressure 101/80 112/86 Pulse Oximetry 100 100 100 08/23/18 04:01 08/23/18 05:00 08/23/18 06:00 Temperature 98.9 F Pulse Rate 100 H 101 H 100 H Respiratory Rate Blood Pressure 112/86 113/89 Pulse Oximetry 100 100 100 08/23/18 07:00 08/23/18 07:33 08/23/18 08:00 Temperature 98.4 F Pulse Rate 91 H 93 H Respiratory Rate 17 Blood Pressure 110/83 Pulse Oximetry 100 100 100 08/23/18 09:00 08/23/18 10:00 08/23/18 11:00 Temperature Pulse Rate 92 H 96 H 97 H Respiratory Rate Blood Pressure 112/86 Pulse Oximetry 100 100 100 08/23/18 11:31 08/23/18 12:00 08/23/18 13:00 Temperature 99.0 F Pulse Rate 100 H 100 H Respiratory Rate 19 Blood Pressure 114/85 Pulse Oximetry 99 100 100 08/23/18 14:00 08/23/18 15:31 Temperature Pulse Rate 109 H Respiratory Rate 18 Blood Pressure Pulse Oximetry 100 100 Intake & Output 08/22/18 08/23/18 08/23/18 18:59 06:59 18:59 Intake Total 1464 / 1464 1162 / 1162 550 / 550 Output Total 2270 / 2270 2130 / 2130 Balance -806 / -806 -968 / -968 550 / 550 Weight 74 kg Intake: IV 1250 / 1250 725 / 725 550 / 550 Bumex Inj 25 mg In 100 ml @ 2 100 / 100 MG/HR 8 mls/hr IV.CONT .[id number] [facility] Rx#:[id number] Cardizem Inj 125 MG In NS Inj 125 / 125 100 ML @ 5 MG/HR 5 mls/hr IV. CONT TITRATE PRN Rx#:[id number] Flexbumin 25% Inj 100 ML @ 60 200 / 200 300 / 300 100 / 100 mls/hr IV.SIG Q6HR [facility] Rx#: [id number] Azithromycin Inj 500 MG In NS 250 / 250 250 / 250 Inj 250 ML @ 250 mls/hr IV.SIG Q24H [facility] Rx#:[id number] Maxipime Inj 2,000 MG In NS Inj 100 / 100 100 / 100 100 ML @ 200 mls/hr IV.SIG Q24H [facility] Rx#:[id number] KCl 20 mEq Premix Inj 20 meq In 400 / 400 100 ml @ 50 mls/hr IV.SIG Q2H [facility] Rx#:[id number] KCl 40 mEq Premix Inj 40 meq In 200 / 200 100 ml @ 25 mls/hr IV.SIG Q4H [facility] Rx#:[id number] Flagyl 500 MG Inj 100 ML @ 100 200 / 200 100 / 100 100 / 100 mls/hr IV.SIG Q8H [facility] Rx#: [id number] Oral 0 / 0 0 / 0 Tube Feeding 214 / 214 437 / 437 Output: Urine Amount (Catheter) 1700 / 1700 1500 / 1500 Indwelling Urethral Catheter 1700 / 1700 1500 / 1500 Chest Tube Drainage 570 / 570 630 / 630 Right Mid-Axillary Chest 570 / 570 630 / 630 Other: Date of Last Bowel Movement 08/21/18 08/21/18 08/21/18 # Bowel Movements 0 0 <Vey,Amelia - 08/23/18 17:17> Vital Signs 08/22/18 07:00 08/22/18 07:50 08/22/18 08:00 Temperature 98.8 F Pulse Rate 95 H 96 H Respiratory Rate 14 Blood Pressure Pulse Oximetry 100 100 100 08/22/18 09:00 08/22/18 10:00 08/22/18 10:08 Temperature Pulse Rate 97 H 88 99 H Respiratory Rate Blood Pressure 107/67 107/67 Pulse Oximetry 100 100 100 08/22/18 11:00 08/22/18 11:13 08/22/18 12:00 Temperature 99.0 F Pulse Rate 107 H 96 H 113 H Respiratory Rate Blood Pressure Pulse Oximetry 100 100 08/22/18 12:01 08/22/18 12:37 08/22/18 13:00 Temperature Pulse Rate 113 H 123 H 125 H Respiratory Rate Blood Pressure 120/89 87/64 L Pulse Oximetry 100 100 100 08/22/18 14:00 08/22/18 15:00 08/22/18 15:47 Temperature Pulse Rate 112 H 104 H Respiratory Rate 15 Blood Pressure 93/65 L Pulse Oximetry 100 100 100 08/22/18 16:00 08/22/18 17:00 08/22/18 18:00 Temperature Pulse Rate 103 H 103 H 97 H Respiratory Rate Blood Pressure 101/76 Pulse Oximetry 100 100 100 08/22/18 18:01 08/22/18 19:00 08/22/18 19:17 Temperature 99.3 F Pulse Rate 97 H 99 H 100 H Respiratory Rate 18 Blood Pressure 119/86 Pulse Oximetry 100 100 08/22/18 20:00 08/22/18 20:06 08/22/18 21:00 Temperature 99.3 F Pulse Rate 94 H 94 H Respiratory Rate 13 Blood Pressure 113/85 Pulse Oximetry 100 100 100 08/22/18 21:09 08/22/18 22:00 08/22/18 22:07 Temperature Pulse Rate 97 H 93 H 93 H Respiratory Rate Blood Pressure 111/86 112/80 Pulse Oximetry 100 100 100 08/22/18 23:00 08/23/18 00:00 08/23/18 00:25 Temperature 99.1 F Pulse Rate 97 H 87 Respiratory Rate 14 Blood Pressure 98/78 L Pulse Oximetry 100 100 100 08/23/18 01:00 08/23/18 02:00 08/23/18 02:02 Temperature Pulse Rate 90 94 H 95 H Respiratory Rate Blood Pressure 101/80 Pulse Oximetry 100 100 100 08/23/18 03:00 08/23/18 04:00 08/23/18 04:01 Temperature Pulse Rate 100 H 100 H 100 H Respiratory Rate Blood Pressure 112/86 112/86 Pulse Oximetry 100 100 100 08/23/18 05:00 08/23/18 06:00 Temperature 98.9 F Pulse Rate 101 H 100 H Respiratory Rate Blood Pressure 113/89 Pulse Oximetry 100 100 Intake & Output 08/22/18 08/22/18 08/23/18 06:59 18:59 06:59 Intake Total 1182 / 1182 1464 / 1464 725 / 725 Output Total 2024 2270 / 2270 Balance -843 / -843 -806 / -806 725 / 725 Weight 74.5 kg 74 kg Intake: IV 500 / 500 1250 / 1250 725 / 725 Bumex Inj 25 mg In 100 ml @ 2 100 / 100 100 / 100 MG/HR 8 mls/hr IV.CONT .[id number] [facility] Rx#:[id number] Cardizem Inj 125 MG In NS Inj 125 / 125 100 ML @ 5 MG/HR 5 mls/hr IV. CONT TITRATE PRN Rx#:[id number] Flexbumin 25% Inj 100 ML @ 60 200 / 200 200 / 200 300 / 300 mls/hr IV.SIG Q6HR [facility] Rx#: [id number] Azithromycin Inj 500 MG In NS 250 / 250 Inj 250 ML @ 250 mls/hr IV.SIG Q24H [facility] Rx#:[id number] Maxipime Inj 2,000 MG In NS Inj 100 / 100 100 ML @ 200 mls/hr IV.SIG Q24H [facility] Rx#:[id number] KCl 20 mEq Premix Inj 20 meq In 400 / 400 100 ml @ 50 mls/hr IV.SIG Q2H [facility] Rx#:[id number] KCl 40 mEq Premix Inj 40 meq In 200 / 200 100 ml @ 25 mls/hr IV.SIG Q4H [facility] Rx#:[id number] Flagyl 500 MG Inj 100 ML @ 100 200 / 200 200 / 200 100 / 100 mls/hr IV.SIG Q8H [facility] Rx#: [id number] Oral 0 / 0 Tube Feeding 502 / 502 214 / 214 Tube Irrigant 180 / 180 Output: Urine Amount (Catheter) 1425 / 1425 1700 / 1700 Indwelling Urethral Catheter 1425 / 1425 1700 / 1700 Chest Tube Drainage 600 / 600 570 / 570 Right Mid-Axillary Chest 600 / 600 570 / 570 Other: Date of Last Bowel Movement 08/21/18 08/21/18 08/21/18 # Bowel Movements 0 0 <Dru Jane - 08/23/18 06:42> Narrative: GENERAL: Intubated and mechanically ventilated on 30% FiO2. Able to shake head to questions as well as follow commands. SKIN: warm and dry. HEAD: Normocephalic. NECK: Intubated, central line in left jugular. Icteric sclera appreciated. CARDIOVASCULAR: Regular rate and rhythm with no murmurs, rubs or gallops. RESPIRATORY: Clear to auscultation bilaterally, chest tube in place on right side. GASTROINTESTINAL: Abdomen soft, non-tender, nondistended. On tube feeds. EXTREMITIES: Mild lower extremity edema. NEUROLOGICAL: Significantly more responsive than yesterday. <Dru Jane - 08/23/18 09:47> - Urinary Catheter Management Indwelling Urethral Catheter Cath placed during this visit: no <Amelia Phoenix - 08/23/18 17:17> yes <Dru Jane - 08/23/18 09:47> Reason for continuing: Hourly intake/output <Dru Jane - 08/23/18 06:42 > Insertion date: 08/16/18 <Dru Jane - 08/23/18 06:42> Assessment and Plan - Assessment (1) Severe sepsis Code(s): A41.9 - Sepsis, unspecified organism; R65.20 - Severe sepsis without septic shock Status: Acute (2) Pneumonia Code(s): J18.9 - Pneumonia, unspecified organism Status: Acute (3) Acute exacerbation of CHF (congestive heart failure) Code(s): I50.9 - Heart failure, unspecified Status: Acute (4) Acute on chronic kidney failure Code(s): N17.9 - Acute kidney failure, unspecified; N18.9 - Chronic kidney disease, unspecified Status: Acute (5) Pleural effusion Code(s): J90 - Pleural effusion, not elsewhere classified Status: Acute (6) PEA (Pulseless electrical activity) Code(s): I46.9 - Cardiac arrest, cause unspecified Status: Resolved (7) Elevated troponin Code(s): R74.8 - Abnormal levels of other serum enzymes Status: Acute (8) Nutrition, metabolism, and development symptoms Code(s): R63.8 - Other symptoms and signs concerning food and fluid intake Status: Acute <Amelia Phoenix - 08/23/18 17:17> (1) Severe sepsis Code(s): A41.9 - Sepsis, unspecified organism; R65.20 - Severe sepsis without septic shock Status: Acute Plan: Community-acquired pneumonia complicated by lower extremity edema in the setting of CHF with an EF of 20%. Patient status post thoracentesis for pleural effusion. -Intubated mechanically ventilated -Patient continues to require pressor support with Levophed -Blood cultures (08/15): No growth to date -Pleural fluid Gram stain and cultures no growth to date -Metabolic encephalopathy secondary to sepsis, without evidence of significant anoxic injury from PEA arrest -Remains afebrile, WBC count within normal limits Plan: Per Dice Spotter: Continue - Flagyl 500 mg every 8h (08/15-) - Cefepime 2000 mg every 8 hours (08/15-) - Azithromycin 500mg (08/16-) -Consider Diamox if bicarbonate levels continue to rise -CPAP trials today, if patient is able to protect her airway and has good lung expansion patient may be extubated Palliative care following, goals of care remain aggressive. Patient is day 7 of intubation, family will need to make decision on trach by upcoming Monday for long-term management. (2) Pneumonia Code(s): J18.9 - Pneumonia, unspecified organism Status: Acute Plan: Community acquired right-sided pneumonia with lactic acidosis. -DuoNeb every 2 hours as needed -Sputum culture uncollected -Respiratory panel uncollected -Continue with antibiotics per critical care team as dictated above -Repeat CXR 08/21 Stable chest x-ray with left basilar opacity representing either atelectasis, consolidation, and/or effusion. Right chest tube remains present and no pneumothorax is seen (3) Acute exacerbation of CHF (congestive heart failure) Code(s): I50.9 - Heart failure, unspecified Status: Acute Plan: -BNP 4000 on admission -Patient being diuresed with Bumex IV -Lower extremity edema greatly improved -Echo 08/17: EF 20%, fairly dilated left ventricle, severe mitral regurgitation -Patient diuresed 2.1 L over last 48 hours -Urine output is still poor at 1.5 ml/kg -Cardiology following and agree with current plan Per cardiology prognosis is poor. (4) Acute on chronic kidney failure Code(s): N17.9 - Acute kidney failure, unspecified; N18.9 - Chronic kidney disease, unspecified Status: Acute Plan: This patient stage III CKD with elevated creatinine above baseline on admission. Possibly due to decrease intravascular volume in the setting of sepsis. -Creatinine on admission 2.72 from baseline of 1.5. -Creatinine stable at 2.33 -Urine output 1.5ml/kg/hr -Nephrology Dr. James following Plan: -Discontinue Bumex -Begin Chlorothiazide 500mg po BID -Trend kidney function -Trend I/O -Hemodialysis not recommended by nephrology at this time -May need Diamox for bicarbonate levels -Nephrology following, appreciate rec (5) Pleural effusion Code(s): J90 - Pleural effusion, not elsewhere classified Status: Acute Plan: Patient status post right sided thoracentesis (08/16/18) with evacuation of approximately 950 ml of slightly cloudy, yellow colored fluid was removed. -Patient underwent therapeutic right sided chest tube placement with pigtail that drained 950ml of slightly cloudy yellow fluid. -08/16: Pleural fluid showed 1,333 red blood cells with 230 nucleated cells. Fluid consistent with transudative process. Cultures show no growth to date. Plan: -Chest tube draining approx 570ml in last 24 hours -Monitor chest tube output -Continue pulmonary care as stated above -Possible extubation pending CPAP trials (6) PEA (Pulseless electrical activity) Code(s): I46.9 - Cardiac arrest, cause unspecified Status: Resolved Plan: Patient required ACLS for 9 minutes on 08/16/18 for PEA arrest -ROSC was achieved by critical care medicine -Patient was intubated and sedated and treated with pressor support See treatment for severe sepsis (7) Elevated troponin Code(s): R74.8 - Abnormal levels of other serum enzymes Status: Acute Plan: Initial troponins of admission 0.10 with no chest pain or ST elevation or depression on EKG. ACS versus elevated troponins in the setting of chronic kidney disease and increased cardiac demand. Patient in SVT on admission now resolved. 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 I agree with assessment and management as documented and discussed with me. Pt is awake and tolerating CPAP. She is able to show me two fingers today. has no questions today and is hopeful that his is improving. <Amelia Phoenix - 08/23/18 17:17> <Dru Jane - Last Filed: 08/23/18 09:37> (3) Acute exacerbation of CHF (congestive heart failure) Qualifiers: Heart failure type: systolic Qualified Code(s): I50.23 - Acute on chronic systolic (congestive) heart failure (4) Acute on chronic kidney failure Qualifiers: Acute renal failure type: unspecified Chronic kidney disease stage: stage 4 ( severe) Qualified Code(s): N17.9 - Acute kidney failure, unspecified; N18.4 - Chronic kidney disease, stage 4 (severe) <Amelia Phoenix - Last Filed: 08/23/18 17:17> (3) Acute exacerbation of CHF (congestive heart failure) Qualifiers: Heart failure type: systolic Qualified Code(s): I50.23 - Acute on chronic systolic (congestive) heart failure (4) Acute on chronic kidney failure Qualifiers: Acute renal failure type: unspecified Chronic kidney disease stage: stage 4 ( severe) Qualified Code(s): N17.9 - Acute kidney failure, unspecified; N18.4 - Chronic kidney disease, stage 4 (severe) <Dru Jane - Last Filed: 08/23/18 09:37> (3) Acute exacerbation of CHF (congestive heart failure) Qualifiers: Heart failure type: systolic Qualified Code(s): I50.23 - Acute on chronic systolic (congestive) heart failure (4) Acute on chronic kidney failure Qualifiers: Acute renal failure type: unspecified Chronic kidney disease stage: stage 4 ( severe) Qualified Code(s): N17.9 - Acute kidney failure, unspecified; N18.4 - Chronic kidney disease, stage 4 (severe) <Amelia Phoenix - Last Filed: 08/23/18 17:17> (3) Acute exacerbation of CHF (congestive heart failure) Qualifiers: Heart failure type: systolic Qualified Code(s): I50.23 - Acute on chronic systolic (congestive) heart failure (4) Acute on chronic kidney failure Qualifiers: Acute renal failure type: unspecified Chronic kidney disease stage: stage 4 ( severe) Qualified Code(s): N17.9 - Acute kidney failure, unspecified; N18.4 - Chronic kidney disease, stage 4 (severe)
[2018-08-23] MEDS: Senna/Docusate Sodium 8.6/50 MG Tablet PO SCH ×2 (08:49→20:31)
[2018-08-23 09:26] LABS: Baso % (Auto) 0.2 % (0.0-2.0); Eos # (Auto) 0.1 th/mm3 (0.0-0.4); Eos % (Auto) 0.8 % (0.0-4.0); Hematocrit 29.2 % (35.0-46.0); Hemoglobin 9.4 gm/dL (11.6-15.3); Lymph # (Auto) 0.6 th/mm3 (1.0-4.8); Lymph % (Auto) 5.7 % (9.0-44.0); Mean Corpuscular HGB Conc 32.3 % (32.0-36.0); Mean Corpuscular Hemoglobin 23.7 pg (27.0-34.0); Mean Corpuscular Volume 73.2 fL (80.0-100.0); Mean Platelet Volume 11.4 fL (7.0-11.0); Mono # (Auto) 1.1 th/mm3 (0.0-0.9); Mono % (Auto) 9.9 % (0.0-8.0); Neut % (Auto) 83.4 % (16.0-70.0); Platelet Count 113 th/mm3 (150-450); Red Blood Count 3.99 mil/mm3 (4.00-5.30); Red Cell Distribution Width 19.5 % (11.6-17.2); White Blood Count 10.7 th/mm3 (4.0-11.0)
[2018-08-23 09:36] LABS: Activated Partial Thrombo Time 35.9 sec (23.4-31.7); Prothrombin Time 20.5 sec (9.8-11.6)
[2018-08-23 09:44] LABS: Calcium 9.3 mg/dL (8.5-10.1); Carbon Dioxide 33.3 meq/L (21.0-32.0); Potassium 3.5 meq/L (3.5-5.1)
--- NOTE | 2018-08-23 10:04 | P.PNCA ---
Subjective Interval history: Pt awake and alert this AM. Able to nod head, smile and squeeze hand. Remains intubated, on CPAP trial. Now on cardizem drip. is at bedside. Medications and Allergies Allergies Allergy/AdvReac Type Severity Reaction Status Date / Time iodine Allergy Severe sneezing, Verified 08/15/18 08:37 chest tightness potassium iodide Allergy Severe sneezing, Verified 08/15/18 08:37 chest tightness povidone-iodine Allergy Severe sneezing, Verified 08/15/18 08:37 chest tightness sodium iodide Allergy Severe sneezing, Verified 08/15/18 08:37 chest tightness sodium iodide Allergy Severe sneezing, Verified 08/15/18 08:37 chest tightness sulfamethoxazole Allergy Intermediate abdominal Verified 08/15/18 08:37 pain trimethoprim Allergy Intermediate abdominal Verified 08/15/18 08:37 pain hydralazine Allergy Unknown Edema Verified 08/15/18 08:37 Statins Allergy Intermediate Hives Uncoded 08/15/18 08:37 Home Medications Medication Instructions Recorded Confirmed Type bumetanide 2 mg PO DAILY 05/21/18 08/15/18 History carvedilol 25 mg PO BID 05/21/18 08/15/18 History potassium chloride 20 meq PO DAILY 05/21/18 08/15/18 History spironolactone 50 mg PO DAILY 05/21/18 08/15/18 History warfarin 2 mg PO DAILY 08/15/18 08/15/18 History Active Medications: Active Medications Acetaminophen (Tylenol) 650 mg PO Q4H PRN PRN Reason: Temp > 100.4 Al Hydroxide/Mg Hydroxide (Milk Of Everardo Liq) 30 ml PO Q12H PRN PRN Reason: Mild Constipation Bisacodyl (Dulcolax Supp) 10 mg RECTAL DAILY PRN PRN Reason: SEVERE CONSITIPATION Chlorothiazide (Diuril) 500 mg PO BID@0900,1800 [facility] Last Admin: 08/23/18 08:49 Dose: 500 mg Azithromycin 500 mg/ Sodium (Chloride) 250 mls @ 250 mls/hr IV.SIG Q24H [facility] Last Infusion: 08/22/18 13:30 Dose: Infused Metronidazole/Sodium Chloride (Flagyl 500 Mg Inj) 100 mls @ 100 mls/hr IV.SIG Q8H [facility] Last Infusion: 08/23/18 08:50 Dose: Infused Norepinephrine Bitartrate (Levophed-Dextrose 4 Mg/250 Ml Drip) 4 mg in 250 mls @ 7.5 mls/hr IV.SIG TITRATE PRN; Protocol PRN Reason: Per Protocol Last Titration: 08/20/18 05:33 Dose: 0 mcg/min, 0 mls/hr Albumin Human (Flexbumin 25% Inj) 100 mls @ 60 mls/hr IV.SIG Q6HR [facility] Last Infusion: 08/23/18 05:58 Dose: Infused Cefepime HCl 2,000 mg/ Sodium (Chloride) 100 mls @ 200 mls/hr IV.SIG Q24H [facility] Last Infusion: 08/23/18 08:51 Dose: Infused Epinephrine HCl 2 mg/ Dextrose 250 mls @ 22.5 mls/hr IV.CONT TITRATE PRN; Protocol PRN Reason: Per Protocol Last Titration: 08/17/18 06:30 Dose: 0 mcg/min, 0 mls/hr Propofol (Diprivan 1000 Mg/100 Ml Inj) 1,000 mg in 100 mls @ 2.565 mls/hr IV.CONT TITRATE PRN; Protocol PRN Reason: Per Protocol Last Titration: 08/18/18 14:52 Dose: Infused Diltiazem HCl 125 mg/ Sodium (Chloride) 125 mls @ 5 mls/hr IV.CONT TITRATE PRN ; Protocol PRN Reason: Per Protocol Last Admin: 08/23/18 05:57 Dose: 5 mg/hr, 5 mls/hr Milrinone Lactate 20 mg/ (Sodium Chloride) 100 mls @ 0.89 mls/hr IV.CONT .Q24H [facility]; Protocol Last Admin: 08/22/18 13:29 Dose: Not Given Midazolam HCl (Versed Inj) 100 mg in 100 mls @ 2 mls/hr IV.CONT TITRATE PRN; Protocol PRN Reason: See protocol Last Titration: 08/20/18 13:30 Dose: 0 mg/hr, 0 mls/hr Lactulose (Lactulose Liq) 30 ml PO DAILY PRN PRN Reason: SEVERE CONSITIPATION Ondansetron HCl (Zofran Inj) 4 mg IV.PUSH Q6H PRN PRN Reason: NAUSEA OR VOMITING Last Admin: 08/16/18 14:05 Dose: 4 mg Ondansetron HCl (Zofran Odt) 4 mg PO Q6H PRN PRN Reason: NAUSEA OR VOMITING Potassium Chloride (K-Dur) 20 meq PO DAILY [facility] Last Admin: 08/23/18 08:49 Dose: 20 meq Promethazine HCl (Phenergan) 25 mg PO Q6H PRN PRN Reason: NAUSEA OR VOMITING Promethazine HCl (Phenergan Supp) 25 mg RECTAL Q6H PRN PRN Reason: NAUSEA OR VOMITING Senna/Docusate Sodium (Aleyda-Colace) 1 tab PO BID [facility] Last Admin: 08/23/18 08:49 Dose: 1 tab Sennosides (Senokot) 17.2 mg PO Q12H PRN PRN Reason: Moderate Constipation Sodium Chloride (Ns Flush) 2 ml IV.FLUSH BID [facility] Last Admin: 08/23/18 08:50 Dose: 2 ml Sodium Chloride (Ns Flush) 2 ml IV.FLUSH UNSCH PRN PRN Reason: FLUSH AFTER USING IV ACCESS Terbutaline Sulfate (Brethine Inj) 1 mg SQ UNSCH PRN PRN Reason: For Extravasation Physical Exam Vital signs: Vital Signs 08/22/18 10:00 08/22/18 10:08 08/22/18 11:00 Temperature Pulse Rate 88 99 H 107 H Respiratory Rate Blood Pressure 107/67 107/67 Pulse Oximetry 100 100 100 08/22/18 11:13 08/22/18 12:00 08/22/18 12:01 Temperature 99.0 F Pulse Rate 96 H 113 H 113 H Respiratory Rate Blood Pressure 120/89 Pulse Oximetry 100 100 08/22/18 12:37 08/22/18 13:00 08/22/18 14:00 Temperature Pulse Rate 123 H 125 H 112 H Respiratory Rate Blood Pressure 87/64 L 93/65 L Pulse Oximetry 100 100 100 08/22/18 15:00 08/22/18 15:47 08/22/18 16:00 Temperature Pulse Rate 104 H 103 H Respiratory Rate 15 Blood Pressure 101/76 Pulse Oximetry 100 100 100 08/22/18 17:00 08/22/18 18:00 08/22/18 18:01 Temperature 99.3 F Pulse Rate 103 H 97 H 97 H Respiratory Rate Blood Pressure 119/86 Pulse Oximetry 100 100 100 08/22/18 19:00 08/22/18 19:17 08/22/18 20:00 Temperature 99.3 F Pulse Rate 99 H 100 H 94 H Respiratory Rate 18 Blood Pressure 113/85 Pulse Oximetry 100 100 08/22/18 20:06 08/22/18 21:00 08/22/18 21:09 Temperature Pulse Rate 94 H 97 H Respiratory Rate 13 Blood Pressure 111/86 Pulse Oximetry 100 100 100 08/22/18 22:00 08/22/18 22:07 08/22/18 23:00 Temperature Pulse Rate 93 H 93 H 97 H Respiratory Rate Blood Pressure 112/80 Pulse Oximetry 100 100 100 08/23/18 00:00 08/23/18 00:25 08/23/18 01:00 Temperature 99.1 F Pulse Rate 87 90 Respiratory Rate 14 Blood Pressure 98/78 L Pulse Oximetry 100 100 100 08/23/18 02:00 08/23/18 02:02 08/23/18 03:00 Temperature Pulse Rate 94 H 95 H 100 H Respiratory Rate Blood Pressure 101/80 Pulse Oximetry 100 100 100 08/23/18 04:00 08/23/18 04:01 08/23/18 05:00 Temperature 98.9 F Pulse Rate 100 H 100 H 101 H Respiratory Rate Blood Pressure 112/86 112/86 Pulse Oximetry 100 100 100 08/23/18 06:00 08/23/18 07:00 08/23/18 07:33 Temperature Pulse Rate 100 H 91 H Respiratory Rate 17 Blood Pressure 113/89 Pulse Oximetry 100 100 100 08/23/18 08:00 08/23/18 09:00 Temperature 98.4 F Pulse Rate 93 H 92 H Respiratory Rate Blood Pressure 110/83 Pulse Oximetry 100 100 Intake & Output 08/22/18 08/23/18 08/23/18 18:59 06:59 18:59 Intake Total 1464 / 1464 1162 / 1162 200 / 200 Output Total 2270 / 2270 2130 / 2130 Balance -806 / -806 -968 / -968 200 / 200 Weight 74 kg Intake: IV 1250 / 1250 725 / 725 200 / 200 Bumex Inj 25 mg In 100 ml @ 2 100 / 100 MG/HR 8 mls/hr IV.CONT .[id number] [facility] Rx#:[id number] Cardizem Inj 125 MG In NS Inj 125 / 125 100 ML @ 5 MG/HR 5 mls/hr IV. CONT TITRATE PRN Rx#:[id number] Flexbumin 25% Inj 100 ML @ 60 200 / 200 300 / 300 mls/hr IV.SIG Q6HR [facility] Rx#: [id number] Azithromycin Inj 500 MG In NS 250 / 250 Inj 250 ML @ 250 mls/hr IV.SIG Q24H [facility] Rx#:[id number] Maxipime Inj 2,000 MG In NS Inj 100 / 100 100 / 100 100 ML @ 200 mls/hr IV.SIG Q24H [facility] Rx#:[id number] KCl 20 mEq Premix Inj 20 meq In 400 / 400 100 ml @ 50 mls/hr IV.SIG Q2H [facility] Rx#:[id number] KCl 40 mEq Premix Inj 40 meq In 200 / 200 100 ml @ 25 mls/hr IV.SIG Q4H [facility] Rx#:[id number] Flagyl 500 MG Inj 100 ML @ 100 200 / 200 100 / 100 100 / 100 mls/hr IV.SIG Q8H [facility] Rx#: [id number] Oral 0 / 0 0 / 0 Tube Feeding 214 / 214 437 / 437 Output: Urine Amount (Catheter) 1700 / 1700 1500 / 1500 Indwelling Urethral Catheter 1700 / 1700 1500 / 1500 Chest Tube Drainage 570 / 570 630 / 630 Right Mid-Axillary Chest 570 / 570 630 / 630 Other: Date of Last Bowel Movement 08/21/18 08/21/18 # Bowel Movements 0 0 - Constitutional mild distress, average body habitus - Routine HEENT Exam Head: Present: normocephalic, atraumatic Eye: Present: EOMI, PERRL, normal accommodation ENT: Present: mucous membranes moist - Routine Neck Exam Comments: intubated - Routine Respiratory Exam Present: patient mechanically ventilated - Routine Cardiovascular Exam Present: tachycardia - Routine Abdominal Exam Present: soft - Routine Skin Exam Present: intact - Routine Neurological Exam Present: alert - Detailed Neurological Exam: Coma Scale Eye Opening: Spontaneous Verbal Response: Oriented Motor Response: Obey commands Kindra Coma Scale Total: 15 - Routine Psychiatric Exam Present: unable to assess - Urinary Catheter Management Indwelling Urethral Catheter Cath placed during this visit: yes Reason for continuing: Hourly intake/output Insertion date: 08/16/18 Results 08/23/18 09:00 08/23/18 09:00 Cardiac Enzymes 08/22/18 Range/Units 03:23 AST 42 H (15-37) U/L Coagulation 08/23/18 Range/Units 09:00 PT 20.5 H (9.8-11.6) sec APTT 35.9 H (23.4-31.7) sec CBC 08/22/18 Range/Units 03:23 WBC 9.4 (4.0-11.0) th/mm3 RBC 4.33 (4.00-5.30) mil/mm3 Hgb 10.3 L (11.6-15.3) gm/dL Hct 31.3 L (35.0-46.0) % Plt Count 135 L (150-450) th/mm3 Neut # (Auto) 8.5 H (1.8-7.7) th/mm3 Lymph # (Auto) 0.2 L (1.0-4.8) th/mm3 [place] # (Auto) 0.6 (0.0-0.9) th/mm3 Eos # (Auto) 0.1 (0.0-0.4) th/mm3 Baso # (Auto) 0.0 (0.0-0.2) th/mm3 Comprehensive Metabolic Panel 08/22/18 08/22/18 08/23/18 Range/Units 03:23 17:50 09:00 Sodium 151 H 152 H (136-145) meq/L Potassium 2.7 L* 3.1 L 3.5 (3.5-5.1) meq/L Chloride 106 111 H (98-107) meq/L Carbon Dioxide 33.9 H 33.3 H (21.0-32.0) meq/L BUN 74 H 82 H (7-18) mg/dL Creatinine 2.50 H 2.33 H (0.50-1.00) mg/dL Calcium 8.8 9.3 (8.5-10.1) mg/dL AST 42 H (15-37) U/L ALT 24 (10-53) U/L Alkaline Phosphatase 65 (45-117) U/L Total Protein 6.3 L (6.4-8.2) g/dL Albumin 4.4 (3.4-5.0) g/dL Intake and Output 08/22/18 08/23/18 08/23/18 22:59 06:59 14:59 Intake Total 614 / 614 1062 / 1062 200 / 200 Output Total 2270 / 2270 2130 / 2130 Balance -1656 / -1656 -1068 / -1068 200 / 200 Intake: IV 400 / 400 625 / 625 200 / 200 Bumex Inj 25 mg In 100 ml @ 2 100 / 100 MG/HR 8 mls/hr IV.CONT .[id number] [facility] Rx#:[id number] Cardizem Inj 125 MG In NS Inj 125 / 125 100 ML @ 5 MG/HR 5 mls/hr IV. CONT TITRATE PRN Rx#:[id number] Flexbumin 25% Inj 100 ML @ 60 200 / 200 200 / 200 mls/hr IV.SIG Q6HR [facility] Rx#: [id number] Maxipime Inj 2,000 MG In NS Inj 100 / 100 100 ML @ 200 mls/hr IV.SIG Q24H [facility] Rx#:[id number] KCl 40 mEq Premix Inj 40 meq In 200 / 200 100 ml @ 25 mls/hr IV.SIG Q4H [facility] Rx#:[id number] Flagyl 500 MG Inj 100 ML @ 100 100 / 100 100 / 100 100 / 100 mls/hr IV.SIG Q8H [facility] Rx#: [id number] Oral 0 / 0 0 / 0 Tube Feeding 214 / 214 437 / 437 Output: Urine Amount (Catheter) 1700 / 1700 1500 / 1500 Indwelling Urethral Catheter 1700 / 1700 1500 / 1500 Chest Tube Drainage 570 / 570 630 / 630 Right Mid-Axillary Chest 570 / 570 630 / 630 Other: Date of Last Bowel Movement 08/21/18 08/21/18 # Bowel Movements 0 0 Weight 74 kg Assessment and Plan - Plan Assessment PEA cardiac arrest Elevated troponin Cardiomyopathy Congestive heart failure Pleural effusions Sepsis Metabolic encephalopathy History of CVA History of pulmonary embolus Plan -Critically ill. More awake and alert today. We will continue with medical management at this time. -Tachycardic overnight, now on Cardizem Drip. -Large right pleural effusion, status post chest tube placement. -Coumadin on hold. INR now 2.0. Chest tube in place, coumadin will need to be resumed once OK by plant tech. Palliative care is following. Dr. Mae will return on Monday. The patient was seen and evaluated by Dr. Calixto who participated in care management and decision making. The exam, history, and the medical decision-making described in the above note were completed with the assistance of the mid-level provider. I reviewed and agree with the findings presented. I attest that I had a [id number] encounter with the patient on the same day, and personally performed and documented my assessment and findings in the medical record. Waking up , more alert, will see PRN. Code Status: Full Code Discussed Condition With: Dr. Calixto, and patients
[2018-08-23 10:06] LABS: Acanthocytes 1+; Ovalocytes 1+; Target Cells 1+
--- NOTE | 2018-08-23 12:13 | P.PNNP ---
Subjective Interval history: Patient was seen, more alert today. at bedside. Renal function improved today. Creatinine is 2.33. Tachycardic overnight, now on Cardizem Drip. <BrandtRebeccaantonio - Last Filed: 08/23/18 12:13> Physical Exam Vital signs: Vital Signs 08/22/18 12:37 08/22/18 13:00 08/22/18 14:00 Temperature Pulse Rate 123 H 125 H 112 H Respiratory Rate Blood Pressure 87/64 L 93/65 L Pulse Oximetry 100 100 100 08/22/18 15:00 08/22/18 15:47 08/22/18 16:00 Temperature Pulse Rate 104 H 103 H Respiratory Rate 15 Blood Pressure 101/76 Pulse Oximetry 100 100 100 08/22/18 17:00 08/22/18 18:00 08/22/18 18:01 Temperature 99.3 F Pulse Rate 103 H 97 H 97 H Respiratory Rate Blood Pressure 119/86 Pulse Oximetry 100 100 100 08/22/18 19:00 08/22/18 19:17 08/22/18 20:00 Temperature 99.3 F Pulse Rate 99 H 100 H 94 H Respiratory Rate 18 Blood Pressure 113/85 Pulse Oximetry 100 100 08/22/18 20:06 08/22/18 21:00 08/22/18 21:09 Temperature Pulse Rate 94 H 97 H Respiratory Rate 13 Blood Pressure 111/86 Pulse Oximetry 100 100 100 08/22/18 22:00 08/22/18 22:07 08/22/18 23:00 Temperature Pulse Rate 93 H 93 H 97 H Respiratory Rate Blood Pressure 112/80 Pulse Oximetry 100 100 100 08/23/18 00:00 08/23/18 00:25 08/23/18 01:00 Temperature 99.1 F Pulse Rate 87 90 Respiratory Rate 14 Blood Pressure 98/78 L Pulse Oximetry 100 100 100 08/23/18 02:00 08/23/18 02:02 08/23/18 03:00 Temperature Pulse Rate 94 H 95 H 100 H Respiratory Rate Blood Pressure 101/80 Pulse Oximetry 100 100 100 08/23/18 04:00 08/23/18 04:01 08/23/18 05:00 Temperature 98.9 F Pulse Rate 100 H 100 H 101 H Respiratory Rate Blood Pressure 112/86 112/86 Pulse Oximetry 100 100 100 08/23/18 06:00 08/23/18 07:00 08/23/18 07:33 Temperature Pulse Rate 100 H 91 H Respiratory Rate 17 Blood Pressure 113/89 Pulse Oximetry 100 100 100 08/23/18 08:00 08/23/18 09:00 08/23/18 10:00 Temperature 98.4 F Pulse Rate 93 H 92 H 96 H Respiratory Rate Blood Pressure 110/83 112/86 Pulse Oximetry 100 100 100 08/23/18 11:31 Temperature Pulse Rate Respiratory Rate 19 Blood Pressure Pulse Oximetry 99 Intake & Output 08/22/18 08/23/18 08/23/18 18:59 06:59 18:59 Intake Total 1464 / 1464 1162 / 1162 200 / 200 Output Total 2270 / 2270 2130 / 2130 Balance -806 / -806 -968 / -968 200 / 200 Weight 74 kg Intake: IV 1250 / 1250 725 / 725 200 / 200 Bumex Inj 25 mg In 100 ml @ 2 100 / 100 MG/HR 8 mls/hr IV.CONT .[id number] [facility] Rx#:[id number] Cardizem Inj 125 MG In NS Inj 125 / 125 100 ML @ 5 MG/HR 5 mls/hr IV. CONT TITRATE PRN Rx#:[id number] Flexbumin 25% Inj 100 ML @ 60 200 / 200 300 / 300 mls/hr IV.SIG Q6HR [facility] Rx#: [id number] Azithromycin Inj 500 MG In NS 250 / 250 Inj 250 ML @ 250 mls/hr IV.SIG Q24H [facility] Rx#:[id number] Maxipime Inj 2,000 MG In NS Inj 100 / 100 100 / 100 100 ML @ 200 mls/hr IV.SIG Q24H [facility] Rx#:[id number] KCl 20 mEq Premix Inj 20 meq In 400 / 400 100 ml @ 50 mls/hr IV.SIG Q2H [facility] Rx#:[id number] KCl 40 mEq Premix Inj 40 meq In 200 / 200 100 ml @ 25 mls/hr IV.SIG Q4H [facility] Rx#:[id number] Flagyl 500 MG Inj 100 ML @ 100 200 / 200 100 / 100 100 / 100 mls/hr IV.SIG Q8H [facility] Rx#: [id number] Oral 0 / 0 0 / 0 Tube Feeding 214 / 214 437 / 437 Output: Urine Amount (Catheter) 1700 / 1700 1500 / 1500 Indwelling Urethral Catheter 1700 / 1700 1500 / 1500 Chest Tube Drainage 570 / 570 630 / 630 Right Mid-Axillary Chest 570 / 570 630 / 630 Other: Date of Last Bowel Movement 08/21/18 08/21/18 08/21/18 # Bowel Movements 0 0 Narrative: GENERAL: Intubated and mechanically ventilated on 30% FiO2. More alert doay. SKIN: warm and dry. HEAD: Normocephalic. NECK: Intubated, central line in left jugular. CARDIOVASCULAR: Regular rate and rhythm with no murmurs, rubs or gallops. RESPIRATORY: Clear to auscultation bilaterally, chest tube in place on right side. GASTROINTESTINAL: Abdomen soft, non-tender, nondistended. On tube feeds. EXTREMITIES: Mild lower extremity edema. - Urinary Catheter Management Indwelling Urethral Catheter Cath placed during this visit: yes Reason for continuing: Hourly intake/output Insertion date: 08/16/18 <Travis Carlton - Last Filed: 08/23/18 12:13> Vital signs: Vital Signs 08/22/18 21:00 08/22/18 21:09 08/22/18 22:00 Temperature Pulse Rate 94 H 97 H 93 H Respiratory Rate Blood Pressure 111/86 Pulse Oximetry 100 100 100 08/22/18 22:07 08/22/18 23:00 08/23/18 00:00 Temperature 99.1 F Pulse Rate 93 H 97 H 87 Respiratory Rate Blood Pressure 112/80 98/78 L Pulse Oximetry 100 100 100 08/23/18 00:25 08/23/18 01:00 08/23/18 02:00 Temperature Pulse Rate 90 94 H Respiratory Rate 14 Blood Pressure Pulse Oximetry 100 100 100 08/23/18 02:02 08/23/18 03:00 08/23/18 04:00 Temperature Pulse Rate 95 H 100 H 100 H Respiratory Rate Blood Pressure 101/80 112/86 Pulse Oximetry 100 100 100 08/23/18 04:01 08/23/18 05:00 08/23/18 06:00 Temperature 98.9 F Pulse Rate 100 H 101 H 100 H Respiratory Rate Blood Pressure 112/86 113/89 Pulse Oximetry 100 100 100 08/23/18 07:00 08/23/18 07:33 08/23/18 08:00 Temperature 98.4 F Pulse Rate 91 H 93 H Respiratory Rate 17 Blood Pressure 110/83 Pulse Oximetry 100 100 100 08/23/18 09:00 08/23/18 10:00 08/23/18 11:00 Temperature Pulse Rate 92 H 96 H 97 H Respiratory Rate Blood Pressure 112/86 Pulse Oximetry 100 100 100 08/23/18 11:31 08/23/18 12:00 08/23/18 13:00 Temperature 99.0 F Pulse Rate 100 H 100 H Respiratory Rate 19 Blood Pressure 114/85 Pulse Oximetry 99 100 100 08/23/18 14:00 08/23/18 15:00 08/23/18 15:31 Temperature Pulse Rate 109 H 104 H Respiratory Rate 18 Blood Pressure Pulse Oximetry 100 100 100 08/23/18 16:00 08/23/18 16:01 08/23/18 17:00 Temperature 98.7 F Pulse Rate 102 H 102 H 99 H Respiratory Rate Blood Pressure 133/86 133/86 Pulse Oximetry 100 100 100 08/23/18 18:00 08/23/18 19:49 Temperature Pulse Rate 93 H Respiratory Rate 16 Blood Pressure 118/89 Pulse Oximetry 100 100 Intake & Output 08/23/18 08/23/18 08/24/18 06:59 18:59 06:59 Intake Total 1162 / 1162 1079 / 1079 100 / 100 Output Total 2130 / 2130 2700 / 2700 Balance -968 / -968 -1621 / -1621 100 / 100 Weight 74 kg Intake: IV 725 / 725 650 / 650 100 / 100 Cardizem Inj 125 MG In NS Inj 125 / 125 100 ML @ 5 MG/HR 5 mls/hr IV. CONT TITRATE PRN Rx#:[id number] Flexbumin 25% Inj 100 ML @ 60 300 / 300 100 / 100 100 / 100 mls/hr IV.SIG Q6HR [facility] Rx#: [id number] Azithromycin Inj 500 MG In NS 250 / 250 Inj 250 ML @ 250 mls/hr IV.SIG Q24H [facility] Rx#:[id number] Maxipime Inj 2,000 MG In NS Inj 100 / 100 100 ML @ 200 mls/hr IV.SIG Q24H [facility] Rx#:[id number] KCl 40 mEq Premix Inj 40 meq In 200 / 200 100 ml @ 25 mls/hr IV.SIG Q4H [facility] Rx#:[id number] Flagyl 500 MG Inj 100 ML @ 100 100 / 100 200 / 200 mls/hr IV.SIG Q8H [facility] Rx#: [id number] Oral 0 / 0 0 / 0 Tube Feeding 437 / 437 429 / 429 Output: Urine Amount (Catheter) 1500 / 1500 1500 / 1500 Indwelling Urethral Catheter 1500 / 1500 1500 / 1500 Chest Tube Drainage 630 / 630 1200 / 1200 Right Mid-Axillary Chest 630 / 630 1200 / 1200 Other: Date of Last Bowel Movement 08/21/18 08/21/18 # Bowel Movements 0 0 - Urinary Catheter Management Indwelling Urethral Catheter Cath placed during this visit: no <Pedro López - Last Filed: 08/23/18 20:37> Assessment and Plan - Assessment (1) Acute kidney injury superimposed on CKD Code(s): N17.9 - Acute kidney failure, unspecified; N18.9 - Chronic kidney disease, unspecified Status: Acute Plan: Patient previously coded had PEA arrest, patient is intubated. Renal function has improved today, Creatinine is 2.33. Free water with tube feeds, 250 ml Q4H. Bumex drip stopped yesterday. Started on Diuril. Monitor urine output. Monitor fluid and electrolytes. Avoid nephrotoxic agents. Poor candidate for renal replacement therapy. Palliative care is following. (2) Acute exacerbation of congestive heart failure Code(s): I50.9 - Heart failure, unspecified Status: Acute Plan: Cardiology following. She has cardiomyopathy EF 20%. (3) Elevated troponin Code(s): R74.8 - Abnormal levels of other serum enzymes Status: Acute Plan: Cardiology following. Per note review, will recheck levels once patient stable. (4) Severe sepsis Code(s): A41.9 - Sepsis, unspecified organism; R65.20 - Severe sepsis without septic shock Status: Acute Plan: Patient on Flagyl, Azithromycin, and Cefepime. (5) Pneumonia Code(s): J18.9 - Pneumonia, unspecified organism Status: Acute Plan: chest xray showed stable left basilar opacity representing either atelectasis, consolidations, and/or effusion. No pneumothorax. Patient has right chest tube in place. (6) Pleural effusion Code(s): J90 - Pleural effusion, not elsewhere classified Status: Acute Plan: Patient on Diuril. <Travis Carlton - Last Filed: 08/23/18 12:13> - Assessment (1) Acute kidney injury superimposed on CKD Code(s): N17.9 - Acute kidney failure, unspecified; N18.9 - Chronic kidney disease, unspecified Status: Acute (2) Acute exacerbation of congestive heart failure Code(s): I50.9 - Heart failure, unspecified Status: Acute (3) Elevated troponin Code(s): R74.8 - Abnormal levels of other serum enzymes Status: Acute (4) Severe sepsis Code(s): A41.9 - Sepsis, unspecified organism; R65.20 - Severe sepsis without septic shock Status: Acute (5) Pneumonia Code(s): J18.9 - Pneumonia, unspecified organism Status: Acute (6) Pleural effusion Code(s): J90 - Pleural effusion, not elsewhere classified Status: Acute - Attending Attestation patient was seen and examined. Agree with above assessment and plan. Hypernatremia persists, Bumex drip changed to Diuril. On free water through feeding tube. Renal function has improved. <Pedro López - Last Filed: 08/23/18 20:37>
--- NOTE | 2018-08-23 12:19 | P.PNPAL ---
Reason for Visit Reason for visit: a. To assist with evaluation and management of symptoms including: Shortness of breath, at risk for pain, debility b. To assist medical decision maker(s) with: better understanding of current medical conditions; weighing benefits/burdens of medical treatment options; making medical treatment decisions. Subjective Subjective/Interval History: Follow-up medically necessary for symptom management and further discussion regarding goals of medical treatment. Patient remains in ICU intubated, on mechanical ventilation. She is currently on spontaneous breathing trials CPAP 10/5/30 percent with O2 saturation in the high 90s and unlabored respirations, has a chest tube to the right side. Patient spouse at bedside. Patient spontaneously opening eyes, tracking and following simple (squeezing hands and wiggling her toes) and complex (lifting 2 fingers, thumbs up) commands. Patient attempting to communicate by mouthing words, shaking and nodding the head and appears to be appropriate. Patient gesturing during examination to have bilateral upper extremities soft restraints removed, explained to patient why she has restraints and why she needs to keep them at this time and she nodded her head appropriately. Bumex infusion discontinued. Patient is on a Cardizem drip. With patient`s spouse permission, explained to patient in simple terms ventilatory weaning process and medical extubation. Briefly discussed her ongoing multiple comorbidities. Asked patient if she would want to be reintubated if she is in respiratory distress again after being medically extubated, discussed options that are available to her. Patient nodded her head to indicate yes for reintubation. Discussed possibility of needing a tracheostomy and PEG tube placement after reintubation, patient shook her head indicating no. Patient spouse witnessed "conversation". Patient mouthing water , explained to her why she cannot have water at this time and that she is getting tube feeding via OG tube. Facial expressions seem appropriate. It is still difficult to understand wether patient has insight regarding her medical condition or not. Patient spouse does not have any further questions at this time. He is hopeful that patient gets medically extubated. Patient spouse encouraged to call palliative care if he has any questions. Family/Friend Interactions: Patient's at bedside. . Advance Directives Living Will: Never completed Health Care Surrogate: Never completed Durable Power of Bi Technical Lead: Never completed Health Care Surrogate Name and Number: HCP: Rey Willis [phone] Documented care wishes:: Never completed advanced directives. . Objective Vital Signs: Vital Signs 08/22/18 12:00 08/22/18 12:01 08/22/18 12:37 Temperature 99.0 F Pulse Rate 113 H 113 H 123 H Respiratory Rate Blood Pressure 120/89 87/64 L Pulse Oximetry 100 100 100 08/22/18 13:00 08/22/18 14:00 08/22/18 15:00 Temperature Pulse Rate 125 H 112 H 104 H Respiratory Rate Blood Pressure 93/65 L Pulse Oximetry 100 100 100 08/22/18 15:47 08/22/18 16:00 08/22/18 17:00 Temperature Pulse Rate 103 H 103 H Respiratory Rate 15 Blood Pressure 101/76 Pulse Oximetry 100 100 100 08/22/18 18:00 08/22/18 18:01 08/22/18 19:00 Temperature 99.3 F Pulse Rate 97 H 97 H 99 H Respiratory Rate Blood Pressure 119/86 Pulse Oximetry 100 100 100 08/22/18 19:17 08/22/18 20:00 08/22/18 20:06 Temperature 99.3 F Pulse Rate 100 H 94 H Respiratory Rate 18 13 Blood Pressure 113/85 Pulse Oximetry 100 100 08/22/18 21:00 08/22/18 21:09 08/22/18 22:00 Temperature Pulse Rate 94 H 97 H 93 H Respiratory Rate Blood Pressure 111/86 Pulse Oximetry 100 100 100 08/22/18 22:07 08/22/18 23:00 08/23/18 00:00 Temperature 99.1 F Pulse Rate 93 H 97 H 87 Respiratory Rate Blood Pressure 112/80 98/78 L Pulse Oximetry 100 100 100 08/23/18 00:25 08/23/18 01:00 08/23/18 02:00 Temperature Pulse Rate 90 94 H Respiratory Rate 14 Blood Pressure Pulse Oximetry 100 100 100 08/23/18 02:02 08/23/18 03:00 08/23/18 04:00 Temperature Pulse Rate 95 H 100 H 100 H Respiratory Rate Blood Pressure 101/80 112/86 Pulse Oximetry 100 100 100 08/23/18 04:01 08/23/18 05:00 08/23/18 06:00 Temperature 98.9 F Pulse Rate 100 H 101 H 100 H Respiratory Rate Blood Pressure 112/86 113/89 Pulse Oximetry 100 100 100 08/23/18 07:00 08/23/18 07:33 08/23/18 08:00 Temperature 98.4 F Pulse Rate 91 H 93 H Respiratory Rate 17 Blood Pressure 110/83 Pulse Oximetry 100 100 100 08/23/18 09:00 08/23/18 10:00 08/23/18 11:31 Temperature Pulse Rate 92 H 96 H Respiratory Rate 19 Blood Pressure 112/86 Pulse Oximetry 100 100 99 Intake & Output 08/22/18 08/23/18 08/23/18 18:59 06:59 18:59 Intake Total 1464 / 1464 1162 / 1162 200 / 200 Output Total 2270 / 2270 2130 / 2130 Balance -806 / -806 -968 / -968 200 / 200 Weight 74 kg Intake: IV 1250 / 1250 725 / 725 200 / 200 Bumex Inj 25 mg In 100 ml @ 2 100 / 100 MG/HR 8 mls/hr IV.CONT .[id number] ANAHI Rx#:[id number] Cardizem Inj 125 MG In NS Inj 125 / 125 100 ML @ 5 MG/HR 5 mls/hr IV. CONT TITRATE PRN Rx#:[id number] Flexbumin 25% Inj 100 ML @ 60 200 / 200 300 / 300 mls/hr IV.SIG Q6HR ANAHI Rx#: [id number] Azithromycin Inj 500 MG In NS 250 / 250 Inj 250 ML @ 250 mls/hr IV.SIG Q24H ANAHI Rx#:[id number] Maxipime Inj 2,000 MG In NS Inj 100 / 100 100 / 100 100 ML @ 200 mls/hr IV.SIG Q24H ANAHI Rx#:[id number] KCl 20 mEq Premix Inj 20 meq In 400 / 400 100 ml @ 50 mls/hr IV.SIG Q2H ANAHI Rx#:[id number] KCl 40 mEq Premix Inj 40 meq In 200 / 200 100 ml @ 25 mls/hr IV.SIG Q4H ANAHI Rx#:[id number] Flagyl 500 MG Inj 100 ML @ 100 200 / 200 100 / 100 100 / 100 mls/hr IV.SIG Q8H ANAHI Rx#: [id number] Oral 0 / 0 0 / 0 Tube Feeding 214 / 214 437 / 437 Output: Urine Amount (Catheter) 1700 / 1700 1500 / 1500 Indwelling Urethral Catheter 1700 / 1700 1500 / 1500 Chest Tube Drainage 570 / 570 630 / 630 Right Mid-Axillary Chest 570 / 570 630 / 630 Other: Date of Last Bowel Movement 08/21/18 08/21/18 08/21/18 # Bowel Movements 0 0 Physical Exam: CONSTITUTIONAL/GENERAL: This is an adequately nourished patient, intubated on mech vent. TUBES/LINES/DRAINS: ETT, OG tube, TLC left IJ, femoral A-line, right chest tube , PIV, SCDs SKIN: No jaundice, rashes, or lesions. Ecchymoses on upper extremities. Healed scar to left upper chest wall. Normothermic. EYES: Spontaneously opening eyes, tracking. ENT: Nose without bleeding or purulent drainage. Endotracheally intubated. Orogastric tube CARDIOVASCULAR: Regular rate and rhythm. AICD to right upper chest wall. RESPIRATORY/CHEST: Symmetric, unlabored respirations on vent. Crackles right. Right chest tube to suction GASTROINTESTINAL: Abdomen soft, nondistended. No guarding. Bowel sounds present. GENITOURINARY: Without palpable bladder distension. Bradley catheter in place. MUSCULOSKELETAL: right hand trace edema. No mottling or clubbing. NEUROLOGICAL: Intubated, off sedation. Eyes open, tracking, following simple and complex commands with all 4 extremities. PSYCHIATRIC: Off sedation. Calm . Diagnostic Tests Laboratory: Laboratory Results - last 72 hr 08/20/18 08/20/18 08/21/18 10:40 10:40 03:05 WBC 8.9 RBC 3.81 L Hgb 9.2 L Hct 27.8 L MCV 72.8 L MCH 24.1 L MCHC 33.2 RDW 18.8 H Plt Count 124 L MPV 10.7 Prelim Diff (Auto) Neut % (Auto) Lymph % (Auto) Powell % (Auto) Eos % (Auto) Baso % (Auto) Neut # (Auto) Lymph # (Auto) Powell # (Auto) Eos # (Auto) Baso # (Auto) WBC Differential Diff Scan Differential Comment Platelet Estimate Platelet Morphology Basophilic Stippling Target Cells Ovalocytes Acanthocytes (Spur) Keratocytes PT INR APTT Sodium Potassium Chloride Carbon Dioxide Anion Gap BUN Creatinine Estimated GFR Random Glucose Calcium Magnesium Total Bilirubin AST ALT Alkaline Phosphatase Total Protein Albumin Pleural pH 8.0 Pleural RBC 2064 H Pleural Nuc Cells 270 H Pleural Neutrophils 26 Pleural Lymphocytes 49 Pleural Monocytes 6 Pleural Mesothelial 19 Pleural Fluid Comment Pleural Total Protein 3.2 Pleural LDH 148 Pleural Glucose 89 08/21/18 08/22/18 08/22/18 03:05 03:23 03:23 WBC 9.4 RBC 4.33 Hgb 10.3 L Hct 31.3 L MCV 72.4 L MCH 23.7 L MCHC 32.8 RDW 19.3 H Plt Count 135 L MPV 11.0 Prelim Diff (Auto) Slide review pending Neut % (Auto) 90.1 H Lymph % (Auto) 2.1 L Powell % (Auto) 6.4 Eos % (Auto) 1.1 Baso % (Auto) 0.3 Neut # (Auto) 8.5 H Lymph # (Auto) 0.2 L Powell # (Auto) 0.6 Eos # (Auto) 0.1 Baso # (Auto) 0.0 WBC Differential . Diff Scan Auto diff confirmed Differential Comment . Platelet Estimate Low L Platelet Morphology Normal Basophilic Stippling Moderate H Target Cells 1+ H Ovalocytes 1+ H Acanthocytes (Spur) 1+ H Keratocytes Occ H PT INR APTT Sodium 148 H 151 H Potassium 3.1 L 2.7 L* Chloride 104 106 Carbon Dioxide 31.8 33.9 H Anion Gap 12 11 BUN 76 H 74 H Creatinine 2.82 H 2.50 H Estimated GFR 20 L 23 L Random Glucose 97 170 H Calcium 8.8 8.8 Magnesium 1.9 Total Bilirubin 5.3 H 7.1 H AST 23 42 H ALT 20 24 Alkaline Phosphatase 37 L 65 Total Protein 6.2 L 6.3 L Albumin 4.2 4.4 Pleural pH Pleural RBC Pleural Nuc Cells Pleural Neutrophils Pleural Lymphocytes Pleural Monocytes Pleural Mesothelial Pleural Fluid Comment Pleural Total Protein Pleural LDH Pleural Glucose 08/22/18 08/23/18 08/23/18 17:50 09:00 09:00 WBC 10.7 RBC 3.99 L Hgb 9.4 L Hct 29.2 L MCV 73.2 L MCH 23.7 L MCHC 32.3 RDW 19.5 H Plt Count 113 L MPV 11.4 H Prelim Diff (Auto) Slide review pending Neut % (Auto) 83.4 H Lymph % (Auto) 5.7 L Powell % (Auto) 9.9 H Eos % (Auto) 0.8 Baso % (Auto) 0.2 Neut # (Auto) 9.0 H Lymph # (Auto) 0.6 L Powell # (Auto) 1.1 H Eos # (Auto) 0.1 Baso # (Auto) 0.0 WBC Differential . Diff Scan Auto diff confirmed Differential Comment . Platelet Estimate Low L Platelet Morphology Enlarged H Basophilic Stippling Target Cells 1+ H Ovalocytes 1+ H Acanthocytes (Spur) 1+ H Keratocytes 1+ H PT 20.5 H INR 2.0 APTT 35.9 H Sodium Potassium 3.1 L Chloride Carbon Dioxide Anion Gap BUN Creatinine Estimated GFR Random Glucose Calcium Magnesium Total Bilirubin AST ALT Alkaline Phosphatase Total Protein Albumin Pleural pH Pleural RBC Pleural Nuc Cells Pleural Neutrophils Pleural Lymphocytes Pleural Monocytes Pleural Mesothelial Pleural Fluid Comment Pleural Total Protein Pleural LDH Pleural Glucose 08/23/18 09:00 WBC RBC Hgb Hct MCV MCH MCHC RDW Plt Count MPV Prelim Diff (Auto) Neut % (Auto) Lymph % (Auto) Powell % (Auto) Eos % (Auto) Baso % (Auto) Neut # (Auto) Lymph # (Auto) Powell # (Auto) Eos # (Auto) Baso # (Auto) WBC Differential Diff Scan Differential Comment Platelet Estimate Platelet Morphology Basophilic Stippling Target Cells Ovalocytes Acanthocytes (Spur) Keratocytes PT INR APTT Sodium 152 H Potassium 3.5 Chloride 111 H Carbon Dioxide 33.3 H Anion Gap 8 BUN 82 H Creatinine 2.33 H Estimated GFR 25 L Random Glucose 133 H Calcium 9.3 Magnesium Total Bilirubin AST ALT Alkaline Phosphatase Total Protein Albumin Pleural pH Pleural RBC Pleural Nuc Cells Pleural Neutrophils Pleural Lymphocytes Pleural Monocytes Pleural Mesothelial Pleural Fluid Comment Pleural Total Protein Pleural LDH Pleural Glucose Result Diagrams: 08/23/18 09:00 08/23/18 09:00 Microbiology: Microbiology 08/22/18 17:55 Gram Stain - Final Sputum - Endotracheal 08/20/18 10:40 Gram Stain - Final Fluid - Pleural fluid Body Fluid Culture - Final No growth in 72 hours (aerobically and anaerobically) 08/15/18 12:40 Aerobic Blood Culture - Final Blood - Peripheral No growth in 5 days Anaerobic Blood Culture - Final No growth in 5 days 08/15/18 12:51 Aerobic Blood Culture - Final Blood - Peripheral No growth in 5 days Anaerobic Blood Culture - Final No growth in 5 days Imaging: Head CT 08/17/18 00:00 CONCLUSION: 1. No acute intracranial abnormality demonstrated. 2. 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 . Chest X-Ray 08/21/18 06:00 CONCLUSION: Stable chest x-ray with left basilar opacity representing either atelectasis, consolidation, and/or effusion. Right chest tube remains present and no pneumothorax is seen. Procedures: 08/15/18-placement of left IJ central line 08/16/18-endotracheal intubation after PEA arrest 08/16/18-bedside thoracentesis with removal of 950 mL's of slightly cloudy, yellow colored fluid. 08/16/18-right femoral arterial line placement 08/20/18-right chest tube placement . Assessment and Plan - Disease Oriented Problem List (1) Severe sepsis (2) Cardiogenic shock (3) Systolic heart failure (4) Cardiomyopathy (5) Pulmonary edema (6) Pneumonia (7) Lactic acidemia (8) Supratherapeutic INR (9) Hypertension - Symptom Scale (1) Shortness of breath 0-10 Scale: Unable to quantify Comment: History of congestive heart failure, chronic kidney disease and recent PEA (2) At risk for pain Comment: Patient went into PEA arrest on 08/16/18 (3) Debility 0-10 Scale: Unable to quantify Comment: Progressive. Patient has had multiple hospitalizations in the past 12 months. Pertinent Non-Medical Issues: Psychosocial: Patient is originally from [place]. She moved to [place] in 2014. Patient worked in [place] 2007. 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 Patient has been to her current for 43 years. They have 2 adult sons, Rey Hodge who lives locally and another son who lives in [place]. She has 6 grandchildren. Spiritual: Patient is [employer]-open to sales trainee visits. Civil Designer Thomas has visited with spouse before. Legal: Never completed advanced directives. Ethical issues impacting care: None identified at this time . Important Contacts: Spouse-Rey Funes [phone] Son-Rey Funes [phone] Daughter-Tracey FunesOourv-[phone] Prognosis: Mrs. Funes is a 67-year-old old with a medical history significant for congestive heart failure with an ejection fraction less than 20%, coronary artery disease, ventricular tachycardia with a [employer] ICD, pulmonary embolism , chronic kidney disease stage III, hypertension, cardiovascular accident with residual left-sided weakness in 2017. Patient presented to the emergency room on 08/15/2018 for further evaluation of progressive weakness, shortness of breath, lower extremity edema and productive cough. Patient's hospital course complicated with PEA cardiac arrest, worsening lung function requiring chest tube placement, and worsening renal function despite aggressive diuresis. Given multiple ongoing comorbidities, patient remains at high risk for further complications, deterioration and decline. . Code Status: Full Code Plan: PLAN: Legal decision maker: Patient is currently intubated. It is not known whether the patient will regain capacity to participate in medical decision making. She is . According to [place] statute patient's spouse Rey Funes Sr will serve as patient's healthcare proxy decision-maker. Goals: Goals remain aggressive at this time. Patient is more awake today and attempting to communicate by mouthing words, shaking her head for "no" and nodding head for "yes". Per interaction attempt to with patient, she indicated that she would want to be reintubated if she goes into respiratory distress after medical extubation. However after explaining that if she needed reintubation the next decision that will need to be made would include tracheostomy placement and PEG tube placement, patient indicated that she would not want to trached. It is still difficult to understand wether patient has insight regarding her medical condition or not. Patient spouse does not have any further questions at this time. He is hopeful that patient gets medically extubated. CODE STATUS: Full code SYMPTOMS: * Shortness of breath: Patient has history of CHF, and currently has pneumonia and acute on chronic kidney failure. Intubated on 08/16/18 after PEA arrest. Patient has had thoracentesis and has recurrent pleural effusions requiring thoracotomy and placement of right chest tubes. Patient is on antibiotics. Remains off sedation. CPAP trials in progress with plan for medical extubation. * At risk for pain: Patient is currently bedbound and had PEA arrest requiring CPR on 08/16/17 and intubation. Patient has had multiple procedures done including thoracentesis, thoracotomy with chest tube placement, central line placement and arterial line placement which can all be sources of pain. Patient is currently not showing any signs of pain. Remains of sedation. * Debility. Progressive. Patient has multiple ongoing comorbidities. She has had multiple (x7) hospitalizations in the past year. Patient has been increasingly getting weak due to her failing heart. Patient will most likely continue to deteriorate given her heart condition, she will most likely be not able to effectively participate in physical therapy/rehabilitation. Palliative care will continue to follow the patient during hospital course as condition evolves, to assist patient/decision-maker with understanding of their medical conditions, weighing benefits/burdens of treatment options, for clarification of goals of treatment. Additionally will assist with any symptoms of palliative concern Attestation Attestation: To help prompt me to consider important information that might be impacting today's encounter and assessment, information from prior notes written by myself or my colleagues may have been "brought forward" into today's note. My signature on this note, however, is an attestation that I personally performed the exam, history, and/or decision-making noted today, and, unless otherwise indicated, the interactions with patient, family, and staff as well as the review of records all occurred today. I also attest that the listed assessment and stated plan reflect my best clinical judgment today based on the combination of historical information, prior notes, and today's exam/ interactions. When time spent is documented, it refers only to time spent today by the signer, or if indicated, combined time spent today by collaborating physician/nurse practitioner. .
[2018-08-23] MEDS: Milrinone Inj 20 MG in Sodium Chlor 0.9% Inj 80 ML IV.CONT SCH (12:52)
[2018-08-23] MEDS: Azithromycin Inj 500 MG in Sodium Chlor 0.9% Inj 250 ML IV.SIG SCH (12:52)
--- NOTE | 2018-08-23 14:23 | P.PNCC ---
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 Patient also had productive cough and frothy sputum, sometimes blood tinged. She also complained about declining urinary output. Initial ER workup showed a normal white count, however BUN was elevated at 80 and creatinine 2.72. BNP was more than 4000. Chest x-ray showed right midlung infiltrate. Patient received Rocephin and azithromycin for community-acquired pneumonia. Patient was admitted to the [facility]. After admission due to the shortness of breath pedal edema and elevated BNP [facility] gave the patient 20 mg IV Lasix but without much urine output. Initially patient had HR of 170's EKG appeared to be SVT and patient converted to NSR with IV Cardizem 25 mg. However patient's blood pressure started to decline. Because of this patient was given IV fluid boluses total 1.5 L had been given. Systolic blood pressure remains at 70s. Lactic acid was checked and was 8.1. With this information critical care medicine was consulted I evaluated the patient emergently. She is lethargic but wakes up easily answers questions. Still profoundly hypotensive despite 1.5 L bolus. I have ordered additional 500 mL bolus and will start Levophed at 5 mcg/min and titrate as needed. It was noted had that her INR is 5.2. Patient may benefit from inotropic agents if blood pressure improves. Antibiotics had been broadened into cefepime and azithromycin, I will also add IV Zyvox. Hold all further diuresis due to septic shock. Patient is very critical at this time 08/16: Patient sitting up in bed. Off Levophed however urine output is minimal only 75 mL urine output since admission. CVP remains elevated at 14-15. I will attempt forced diuresis with Bumex 2 mg x1 and Bumex 0.5 mg/h infusion. If no response may need hemodialysis. Follow-up chest x-ray today is pending. Chest x-ray shows persistent right sided infiltrate and effusion 08/17: Patient developed PEA cardiac arrest yesterday afternoon. No immediate inciting factors could be identified however most likely cardiac. 2D echo ordered pending. CT of the head pending. Currently patient had been weaned off all of the pressors however remains encephalopathy. Creatinine is worsening to 3.8 however urine output has improved approximately 500 ml UO in the last 12 hours. 08/18: Patient remains intubated lightly sedated. On lightening sedation patient wakes up easily following commands. Remains on Bumex infusion approximately 6 L urine output. However chest x-ray showing pulmonary edema. Remains off pressors. Will attempt CPAP trials. CT head did not show any acute finding 08/19: Diuresing well with Bumex infusion achieving negative balance however chest x-ray shows bilateral pulmonary vascular congestion and bilateral at least moderate effusions. These are secondary to decompensated heart failure. EF is less than 20 with severe MR. Creatinine down to 3. Prognosis overall is poor despite milrinone and diuresis patient is not proving adequately. We will consult palliative care to address goals of care 08/20: Patient continues to be in decompensated congestive heart failure. Despite increasing Bumex to 2 mg/h, urine output has decreased to 1.6 L in 24 hours. Chest x-ray continued to show bilateral large pleural effusions. Right- sided pigtail chest tube was placed today with 1 L output initially. Milrinone discontinued due to increasing ventricular irritability. 08/21: Remains sedated, orally intubated on mechanical ventilation. Bumex drip continues. 08/22: Off sedation since 08/18. Intubated and on PSV / CPAP. Not following commands. 08/23: Intubated and on PRVC A/C currently. Had tachycardia during CPAP trials today. She is following commands now. Objective Vital Signs / I&O: Vital Signs 08/22/18 15:00 08/22/18 15:47 08/22/18 16:00 Temperature Pulse Rate 104 H 103 H Respiratory Rate 15 Blood Pressure 101/76 Pulse Oximetry 100 100 100 08/22/18 17:00 08/22/18 18:00 08/22/18 18:01 Temperature 99.3 F Pulse Rate 103 H 97 H 97 H Respiratory Rate Blood Pressure 119/86 Pulse Oximetry 100 100 100 08/22/18 19:00 08/22/18 19:17 02/06/19 20:00 Temperature 99.3 F Pulse Rate 99 H 100 H 94 H Respiratory Rate 18 Blood Pressure 113/85 Pulse Oximetry 100 100 08/22/18 20:06 08/22/18 21:00 08/22/18 21:09 Temperature Pulse Rate 94 H 97 H Respiratory Rate 13 Blood Pressure 111/86 Pulse Oximetry 100 100 100 08/22/18 22:00 08/22/18 22:07 08/22/18 23:00 Temperature Pulse Rate 93 H 93 H 97 H Respiratory Rate Blood Pressure 112/80 Pulse Oximetry 100 100 100 08/23/18 00:00 08/23/18 00:25 08/23/18 01:00 Temperature 99.1 F Pulse Rate 87 90 Respiratory Rate 14 Blood Pressure 98/78 L Pulse Oximetry 100 100 100 08/23/18 02:00 08/23/18 02:02 08/23/18 03:00 Temperature Pulse Rate 94 H 95 H 100 H Respiratory Rate Blood Pressure 101/80 Pulse Oximetry 100 100 100 08/23/18 04:00 08/23/18 04:01 08/23/18 05:00 Temperature 98.9 F Pulse Rate 100 H 100 H 101 H Respiratory Rate Blood Pressure 112/86 112/86 Pulse Oximetry 100 100 100 08/23/18 06:00 08/23/18 07:00 08/23/18 07:33 Temperature Pulse Rate 100 H 91 H Respiratory Rate 17 Blood Pressure 113/89 Pulse Oximetry 100 100 100 08/23/18 08:00 08/23/18 09:00 08/23/18 10:00 Temperature 98.4 F Pulse Rate 93 H 92 H 96 H Respiratory Rate Blood Pressure 110/83 112/86 Pulse Oximetry 100 100 100 08/23/18 11:00 08/23/18 11:31 08/23/18 12:00 Temperature 99.0 F Pulse Rate 97 H 100 H Respiratory Rate 19 Blood Pressure 114/85 Pulse Oximetry 100 99 100 08/23/18 13:00 Temperature Pulse Rate 100 H Respiratory Rate Blood Pressure Pulse Oximetry 100 Intake & Output 08/22/18 08/23/18 08/23/18 18:59 06:59 18:59 Intake Total 1464 / 1464 1162 / 1162 200 / 200 Output Total 2270 / 2270 2130 / 2130 Balance -806 / -806 -968 / -968 200 / 200 Weight 74 kg Intake: IV 1250 / 1250 725 / 725 200 / 200 Bumex Inj 25 mg In 100 ml @ 2 100 / 100 MG/HR 8 mls/hr IV.CONT .[id number] ANAHI Rx#:[id number] Cardizem Inj 125 MG In NS Inj 125 / 125 100 ML @ 5 MG/HR 5 mls/hr IV. CONT TITRATE PRN Rx#:[id number] Flexbumin 25% Inj 100 ML @ 60 200 / 200 300 / 300 mls/hr IV.SIG Q6HR ANAHI Rx#: [id number] Azithromycin Inj 500 MG In NS 250 / 250 Inj 250 ML @ 250 mls/hr IV.SIG Q24H ANAHI Rx#:[id number] Maxipime Inj 2,000 MG In NS Inj 100 / 100 100 / 100 100 ML @ 200 mls/hr IV.SIG Q24H ANAHI Rx#:[id number] KCl 20 mEq Premix Inj 20 meq In 400 / 400 100 ml @ 50 mls/hr IV.SIG Q2H ANAHI Rx#:[id number] KCl 40 mEq Premix Inj 40 meq In 200 / 200 100 ml @ 25 mls/hr IV.SIG Q4H ANAHI Rx#:[id number] Flagyl 500 MG Inj 100 ML @ 100 200 / 200 100 / 100 100 / 100 mls/hr IV.SIG Q8H ANAHI Rx#: [id number] Oral 0 / 0 0 / 0 Tube Feeding 214 / 214 437 / 437 Output: Urine Amount (Catheter) 1700 / 1700 1500 / 1500 Indwelling Urethral Catheter 1700 / 1700 1500 / 1500 Chest Tube Drainage 570 / 570 630 / 630 Right Mid-Axillary Chest 570 / 570 630 / 630 Other: Date of Last Bowel Movement 08/21/18 08/21/18 08/21/18 # Bowel Movements 0 0 Result Diagrams: 08/23/18 09:00 08/23/18 09:00 Objective Remarks: General: Ill-appearing -[place] female who is intubated, no sedation, mildly agitated, following one-step commands. HEENT: Normocephalic and atraumatic. Pupils are reactive. Mild right facial droop. Orotracheally intubated Neck: Supple, no JVD Chest: Normal inspection of the chest. Scar from AICD placement on the left upper chest. AICD now in right upper chest. Chest tube in place. Resp: Air entry diminished in the right mid chest few crackles heard. No wheezes or rhonchi. On PRVC A/C Rate: Regular rate and rhythm without murmur GI: Abdomen soft, grimaces on epigastric palpation Skin: No rashes or lesions noted, dry skin Neuro: Intubated, GCS 10T, she is following one-step commands. Assessment and Plan - Problem List (1) Severe sepsis Code(s): A41.9 - Sepsis, unspecified organism; R65.20 - Severe sepsis without septic shock Status: Acute (2) Pneumonia Code(s): J18.9 - Pneumonia, unspecified organism Status: Acute (3) Acute exacerbation of CHF (congestive heart failure) Code(s): I50.9 - Heart failure, unspecified Status: Acute (4) Acute on chronic kidney failure Code(s): N17.9 - Acute kidney failure, unspecified; N18.9 - Chronic kidney disease, unspecified Status: Acute (5) Pleural effusion Code(s): J90 - Pleural effusion, not elsewhere classified Status: Acute (6) PEA (Pulseless electrical activity) Code(s): I46.9 - Cardiac arrest, cause unspecified Status: Resolved (7) Elevated troponin Code(s): R74.8 - Abnormal levels of other serum enzymes Status: Acute (8) Nutrition, metabolism, and development symptoms Code(s): R63.8 - Other symptoms and signs concerning food and fluid intake Status: Acute - Assessment and Plan Plan: ASSESSMENT: PEA cardiac arrest Decompensated systolic heart failure Bilateral pleural effusion/pulmonary edema Severe biventricular failure Acute metabolic encephalopathy Septic shock improving Cardiogenic shock-marginally improving Acute respiratory failure Severe MR, TR Right sided pneumonia, with effusion Lactic acidemia Acute on chronic kidney disease Supratherapeutic INR Mild troponin elevation SVT-resolved Hypokalemia Cardiomyopathy ejection fraction 20% Chronic kidney disease Hypertension History of CVA in 2017 Chronic anticoagulation with Coumadin PLAN: NEURO: -Metabolic encephalopathy secondary to sepsis, no evidence of significant anoxic injury from PEA arrest -No evidence of new CVA at this time. CT 2/ of the head negative for acute findings old right frontal stroke -Monitor neuro status closely, off sedation, today she is following commands RESP: -Status post ultrasound-guided thoracentesis, studies consistent with transudative versus early exudative effusion -Status post right pigtail chest tube placement (2.4) with 1.2 L output 08/22-2018 -Intubated and placed on mechanical ventilation during CPR 08/16/18, now on PRVC A/C -Became tachycardic during CPAP trials today -ABX and cultures: See ID below CV: -Following PEA cardiac arrest patient was on epinephrine and Levophed infusion. Both had been weaned off -Milrinone started for decompensated heart failure, discontinued overnight due to increased ventricular irritability -2D echo previously showing EF 20-25%. Repeat 2D echo. Severely dilated right and left ventricle with severe biventricular dysfunction. LV EF less than 20%. Severe MR and TR -BID chlorthalidone 500 mg twice daily per nephrology -senior compensation consultant following -One time 0.5 mg digoxin dose (creatinine of 2.3 today) Lopressor 12.5 mg 3 times daily -Tachycardic, on diltiazem drip. No pressors currently. -Arterial line: MAP has been in high 80s, low 90s. -Holding Coumadin, INR of 2 today (Coumadin has been held for entire hospitalization thus far) GI: -IV famotidine -Tube feeds with Nepro and free water : -Monitor renal function closely. Bradley catheter. -Nephrology following: Chlorthalidone 500 twice daily -Tube feeds with Nepro and free water ID: -Continue empiric cefepime, Flagyl and azithromycin -Blood and pleural fluid cultures negative to date. Sputum cx shows light respiratory bear at 24 hours -We will consolidate antibiotics per culture is positive HEME: -Mild stable anemia -Monitor CBC and coags daily -Status post multiple platelet and vitamin K administration -Restarted warfarin today: 1 mg p.o. daily (INR goal of 2-3) ENDO: -Electrolyte replacement as needed PROPH: -Bilateral lower extremity SCDs. IV famotidine. LINES: -Utilize peripheral IVs, -Left IJ central line placed 08/15/2018 -Right femoral arterial line placed 08/16 -Intubation and left femoral central line placement 08/16/2018 -Right pigtail chest tube placed 08/20/2018 DISPOSITION: -Prognosis is poor, but neuro status is improved from yesterday -Palliative care is following Addendum: Patient seen and examined earlier. Discussed findings, assessment and plan with Dr. Lopez. Agree with above note. Patient remains critically ill with encephalopathy, acute respiratory failure on mechanical ventilation, cardiomyopathy, CHF. Time spent on critical care excluding procedures 35 minutes (3) Acute exacerbation of CHF (congestive heart failure) Qualifiers: Heart failure type: systolic Qualified Code(s): I50.23 - Acute on chronic systolic (congestive) heart failure (4) Acute on chronic kidney failure Qualifiers: Acute renal failure type: unspecified Chronic kidney disease stage: stage 4 ( severe) Qualified Code(s): N17.9 - Acute kidney failure, unspecified; N18.4 - Chronic kidney disease, stage 4 (severe)
[2018-08-23] MEDS ORDERED: Digoxin Inj 500 MCG/2 ML Ampul IV.PUSH ONE (14:42)
[2018-08-23] MEDS: Metoprolol Tartrate 25 MG Tablet PO SCH (17:31)
[2018-08-24] MEDS: Albumin Human 25% Inj 100 ML IV.SIG SCH ×3 (06:16→18:16)
[2018-08-24] MEDS: Senna/Docusate Sodium 8.6/50 MG Tablet PO SCH ×2 (08:20→21:16)
[2018-08-24] MEDS: Metoprolol Tartrate 25 MG Tablet PO SCH ×3 (08:20→18:16)
--- NOTE | 2018-08-24 08:33 | P.PNCC ---
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 Patient also had productive cough and frothy sputum, sometimes blood tinged. She also complained about declining urinary output. Initial ER workup showed a normal white count, however BUN was elevated at 80 and creatinine 2.72. BNP was more than 4000. Chest x-ray showed right midlung infiltrate. Patient received Rocephin and azithromycin for community-acquired pneumonia. [facility]. After admission due to the shortness of breath pedal edema and elevated BNP [facility] gave the patient 20 mg IV Lasix but without much urine output. Initially patient had HR of 170's EKG appeared to be SVT and patient converted to NSR with IV Cardizem 25 mg. However patient's blood pressure started to decline. Because of this patient was given IV fluid boluses total 1.5 L had been given. Systolic blood pressure remains at 70s. Lactic acid was checked and was 8.1. With this information critical care medicine was consulted I evaluated the patient emergently. She is lethargic but wakes up easily answers questions. Still profoundly hypotensive despite 1.5 L bolus. I have ordered additional 500 mL bolus and will start Levophed at 5 mcg/min and titrate as needed. It was noted had that her INR is 5.2. Patient may benefit from inotropic agents if blood pressure improves. Antibiotics had been broadened into cefepime and azithromycin, I will also add IV Zyvox. Hold all further diuresis due to septic shock. Patient is very critical at this time 08/16: Patient sitting up in bed. Off Levophed however urine output is minimal only 75 mL urine output since admission. CVP remains elevated at 14-15. I will attempt forced diuresis with Bumex 2 mg x1 and Bumex 0.5 mg/h infusion. If no response may need hemodialysis. Follow-up chest x-ray today is pending. Chest x-ray shows persistent right sided infiltrate and effusion 08/17: Patient developed PEA cardiac arrest yesterday afternoon. No immediate inciting factors could be identified however most likely cardiac. 2D echo ordered pending. CT of the head pending. Currently patient had been weaned off all of the pressors however remains encephalopathy. Creatinine is worsening to 3.8 however urine output has improved approximately 500 ml UO in the last 12 hours. 08/18: Patient remains intubated lightly sedated. On lightening sedation patient wakes up easily following commands. Remains on Bumex infusion approximately 6 L urine output. However chest x-ray showing pulmonary edema. Remains off pressors. Will attempt CPAP trials. CT head did not show any acute finding 2: Diuresing well with Bumex infusion achieving negative balance however chest x-ray shows bilateral pulmonary vascular congestion and bilateral at least moderate effusions. These are secondary to decompensated heart failure. EF is less than 20 with severe MR. Creatinine down to 3. Prognosis overall is poor despite milrinone and diuresis patient is not proving adequately. We will consult palliative care to address goals of care 08/20: Patient continues to be in decompensated congestive heart failure. Despite increasing Bumex to 2 mg/h, urine output has decreased to 1.6 L in 24 hours. Chest x-ray continued to show bilateral large pleural effusions. Right- sided pigtail chest tube was placed today with 1 L output initially. Milrinone discontinued due to increasing ventricular irritability. 08/21: Remains sedated, orally intubated on mechanical ventilation. Bumex drip continues. 08/22: Off sedation since 08/18. Intubated and on PSV / CPAP. Not following commands. 08/23: Intubated and on PRVC A/C currently. Had tachycardia during CPAP trials today. She is following commands now. 08/24: Intubated and currently on CPCP / PSV w/ pressures of 10/5. When pressure support was decreased to 7/5 she became tachypneic Objective Vital Signs / I&O: Vital Signs 08/23/18 09:00 08/23/18 10:00 08/23/18 11:00 Temperature Pulse Rate 92 H 96 H 97 H Respiratory Rate Blood Pressure 112/86 Pulse Oximetry 100 100 100 08/23/18 11:31 08/23/18 12:00 08/23/18 13:00 Temperature 99.0 F Pulse Rate 100 H 100 H Respiratory Rate 19 Blood Pressure 114/85 Pulse Oximetry 99 100 100 08/23/18 14:00 08/23/18 15:00 08/23/18 15:31 Temperature Pulse Rate 109 H 104 H Respiratory Rate 18 Blood Pressure Pulse Oximetry 100 100 100 08/23/18 16:00 08/23/18 16:01 08/23/18 17:00 Temperature 98.7 F Pulse Rate 102 H 102 H 99 H Respiratory Rate Blood Pressure 133/86 133/86 Pulse Oximetry 100 100 100 08/23/18 18:00 08/23/18 19:00 08/23/18 19:49 Temperature Pulse Rate 93 H 92 H Respiratory Rate 16 Blood Pressure 118/89 Pulse Oximetry 100 100 100 08/23/18 20:00 08/23/18 21:00 08/23/18 22:00 Temperature 99.5 F Pulse Rate 92 H 91 H 92 H Respiratory Rate 15 Blood Pressure 125/89 124/95 H Pulse Oximetry 100 100 100 08/23/18 23:00 08/24/18 00:00 08/24/18 00:21 Temperature Pulse Rate 87 86 Respiratory Rate 16 Blood Pressure 125/89 Pulse Oximetry 100 100 100 08/24/18 01:00 08/24/18 02:00 08/24/18 03:00 Temperature Pulse Rate 90 94 H 90 Respiratory Rate Blood Pressure 133/95 H Pulse Oximetry 100 100 100 08/24/18 04:00 08/24/18 05:00 08/24/18 06:00 Temperature Pulse Rate 84 87 86 Respiratory Rate Blood Pressure 121/81 118/89 Pulse Oximetry 100 100 100 08/24/18 07:40 Temperature Pulse Rate Respiratory Rate 21 Blood Pressure Pulse Oximetry 100 Intake & Output 08/23/18 08/24/18 08/24/18 18:59 06:59 18:59 Intake Total 1079 / 1079 716 / 716 Output Total 2700 / 2700 2700 / 2700 Balance -162 / -162 -1983 / Weight 65.5 kg Intake: IV 650 / 650 300 / 300 Flexbumin 25% Inj 100 ML @ 60 100 / 100 200 / 200 mls/hr IV.SIG Q6HR ANAHI Rx#: [id number] Azithromycin Inj 500 MG In NS 250 / 250 Inj 250 ML @ 250 mls/hr IV.SIG Q24H ANAHI Rx#:[id number] Maxipime Inj 2,000 MG In NS Inj 100 / 100 100 ML @ 200 mls/hr IV.SIG Q24H ANAHI Rx#:[id number] Flagyl 500 MG Inj 100 ML @ 100 200 / 200 100 / 100 mls/hr IV.SIG Q8H ANAHI Rx#: [id number] Oral 0 / 0 Tube Feeding 429 / 429 416 / 416 Output: Urine Amount (Catheter) 1500 / 1500 1850 / 1850 Indwelling Urethral Catheter 1500 / 1500 1850 / 1850 Chest Tube Drainage 1200 / 1200 850 / 850 Right Mid-Axillary Chest 1200 / 1200 850 / 850 Other: Date of Last Bowel Movement 08/21/18 08/24/18 # Bowel Movements 0 3 Result Diagrams: 08/24/18 07:50 08/24/18 07:50 Objective Remarks: General: Ill-appearing -[place] female who is intubated, no sedation, mildly agitated, following one-step commands. HEENT: Normocephalic and atraumatic. Pupils are reactive. Mild right facial droop. Orotracheally intubated Neck: Supple, no JVD Chest: Normal inspection of the chest. Scar from AICD placement on the left upper chest. AICD now in right upper chest. Chest tube in place. Resp: Air entry diminished in the right mid chest few crackles heard. No wheezes or rhonchi. On PRVC A/C Rate: Regular rate and rhythm without murmur GI: Abdomen soft, grimaces on epigastric palpation Skin: No rashes or lesions noted, dry skin Neuro: Intubated, GCS 10T, she is following one-step commands. Assessment and Plan - Problem List (1) Severe sepsis Code(s): A41.9 - Sepsis, unspecified organism; R65.20 - Severe sepsis without septic shock Status: Acute (2) Pneumonia Code(s): J18.9 - Pneumonia, unspecified organism Status: Acute (3) Acute exacerbation of CHF (congestive heart failure) Code(s): I50.9 - Heart failure, unspecified Status: Acute (4) Acute on chronic kidney failure Code(s): N17.9 - Acute kidney failure, unspecified; N18.9 - Chronic kidney disease, unspecified Status: Acute (5) Pleural effusion Code(s): J90 - Pleural effusion, not elsewhere classified Status: Acute (6) PEA (Pulseless electrical activity) Code(s): I46.9 - Cardiac arrest, cause unspecified Status: Resolved (7) Elevated troponin Code(s): R74.8 - Abnormal levels of other serum enzymes Status: Acute (8) Nutrition, metabolism, and development symptoms Code(s): R63.8 - Other symptoms and signs concerning food and fluid intake Status: Acute - Assessment and Plan Plan: ASSESSMENT: PEA cardiac arrest Decompensated systolic heart failure Bilateral pleural effusion/pulmonary edema Severe biventricular failure Acute metabolic encephalopathy Septic shock improving Cardiogenic shock-marginally improving Acute respiratory failure Severe MR, TR Right sided pneumonia, with effusion Lactic acidemia Acute on chronic kidney disease Supratherapeutic INR Mild troponin elevation SVT-resolved Hypokalemia Cardiomyopathy ejection fraction 20% Chronic kidney disease Hypertension History of CVA in 2017 Chronic anticoagulation with Coumadin PLAN: NEURO: -Metabolic encephalopathy secondary to sepsis, no evidence of significant anoxic injury from PEA arrest -No evidence of new CVA at this time. CT 08/17 of the head negative for acute findings old right frontal stroke -Monitor neuro status closely, off sedation, she is following commands RESP: -Status post ultrasound-guided thoracentesis, studies consistent with transudative versus early exudative effusion -Status post right pigtail chest tube placement (2.4) with 1.2 L output 08/22-2018 -Intubated and placed on mechanical ventilation during CPR 08/16/18, on PRVC A/C w/ CPAP Trials -Became tachycardic during CPAP trials today -ABX and cultures: See ID below CV: -Following PEA cardiac arrest patient was on epinephrine and Levophed infusion as well as milrinone. Now off all pressor support. -2D echo previously showing EF 20-25%. Repeat 2D echo. Severely dilated right and left ventricle with severe biventricular dysfunction. LV EF less than 20%. Severe MR and TR. -BID chlorthalidone 500 mg twice daily per nephrology -networks software consultant following -Diltiazem drip stopped 08/23. Received 0.5 mg of digoxin 08/23. Lopressor 12.5 mg 3 times daily -Arterial line: MAP has been in between 90 and 110. GI: -IV famotidine -Tube feeds with Nepro and free water : -Monitor renal function closely. Bradley catheter. -Nephrology following: Chlorthalidone 500 twice daily, poor candidate for renal replacement therapy -Tube feeds with Nepro and free water -Creatinine stable ID: -Continue empiric cefepime, Flagyl and azithromycin -Blood and pleural fluid cultures negative to date. Sputum cx shows light respiratory bear at 24 hours -We will consolidate antibiotics per culture if positive HEME: -Mild stable anemia -Monitor CBC and coags daily -Status post multiple platelet and vitamin K administration -Restarted warfarin yesterday: 1 mg p.o. daily (INR goal of 2-3) ENDO: -Electrolyte replacement as needed PROPH: -Bilateral lower extremity SCDs. IV famotidine. LINES: -Utilize peripheral IVs, -Left IJ central line placed 08/15/2018 -Right femoral arterial line placed 08/16 -Intubation and left femoral central line placement 08/16/2018 -Right pigtail chest tube placed 08/20/2018, still with significant output DISPOSITION: -Prognosis is poor, but neuro status is improved from yesterday -Palliative care is following Addendum: Patient seen and examined earlier. Discussed findings, assessment and plan with Dr. Lopez. Agree with above note. Patient remains critically ill with encephalopathy, acute respiratory failure on mechanical ventilation, cardiomyopathy, CHF. Time spent on critical care excluding procedures 35 minutes (3) Acute exacerbation of CHF (congestive heart failure) Qualifiers: Heart failure type: systolic Qualified Code(s): I50.23 - Acute on chronic systolic (congestive) heart failure (4) Acute on chronic kidney failure Qualifiers: Acute renal failure type: unspecified Chronic kidney disease stage: stage 4 ( severe) Qualified Code(s): N17.9 - Acute kidney failure, unspecified; N18.4 - Chronic kidney disease, stage 4 (severe)
[2018-08-24 09:53] LABS: Calcium 9.9 mg/dL (8.5-10.1); Carbon Dioxide 34.4 meq/L (21.0-32.0)
[2018-08-24 09:56] LABS: Potassium 2.8 meq/L (3.5-5.1)
[2018-08-24 10:45] LABS: Baso % (Auto) 0.2 % (0.0-2.0); Eos % (Auto) 0.5 % (0.0-4.0); Hematocrit 27.1 % (35.0-46.0); Hemoglobin 9.2 gm/dL (11.6-15.3); Lymph # (Auto) 0.6 th/mm3 (1.0-4.8); Mean Corpuscular HGB Conc 33.8 % (32.0-36.0); Mean Corpuscular Hemoglobin 24.3 pg (27.0-34.0); Mean Corpuscular Volume 71.8 fL (80.0-100.0); Mono # (Auto) 1.3 th/mm3 (0.0-0.9); Mono % (Auto) 12.8 % (0.0-8.0); Neut # (Auto) 8.5 th/mm3 (1.8-7.7); Neut % (Auto) 80.5 % (16.0-70.0); Platelet Count 83 th/mm3 (150-450); Red Blood Count 3.78 mil/mm3 (4.00-5.30); Red Cell Distribution Width 19.1 % (11.6-17.2); White Blood Count 10.5 th/mm3 (4.0-11.0)
[2018-08-24] MEDS ORDERED: Potassium Chloride Liq 20 MEQ/15 ML UDC NG/OG ONE (10:45)
[2018-08-24 10:49] LABS: Eosinophils 1 % (0-4); Lymphocytes 5 % (9-44); Monocytes 9 % (0-8); Platelet Morphology Normal (Normal); Tallied Nucleated RBC 1 (0-0)
[2018-08-24 10:50] LABS: Acanthocytes 1+; Target Cells 1+
[2018-08-24 10:51] LABS: Ovalocytes 1+
[2018-08-24] MEDS ORDERED: Potassium Chlor 40 mEq Premix 80 MEQ/200 ML PIGGYBACK IV.SIG SCH (11:00)
[2018-08-24] MEDS: Azithromycin Inj 500 MG in Sodium Chlor 0.9% Inj 250 ML IV.SIG SCH (11:36)
--- NOTE | 2018-08-24 11:42 | P.PNNP ---
Subjective Interval history: Patient was seen, no distress, at bedside. Patient's renal function stable, Creatinine is 2.31. K 2.8 today, was given IV K replacement. Hypernatremia persists, Na is 153, patient on free water through feeding tube. <Travis Carlton - Last Filed: 08/24/18 11:37> Physical Exam Vital signs: Vital Signs 08/23/18 12:00 08/23/18 13:00 08/23/18 14:00 Temperature 99.0 F Pulse Rate 100 H 100 H 109 H Respiratory Rate Blood Pressure 114/85 Pulse Oximetry 100 100 100 08/23/18 15:00 08/23/18 15:31 08/23/18 16:00 Temperature 98.7 F Pulse Rate 104 H 102 H Respiratory Rate 18 Blood Pressure 133/86 Pulse Oximetry 100 100 100 08/23/18 16:01 08/23/18 17:00 08/23/18 18:00 Temperature Pulse Rate 102 H 99 H 93 H Respiratory Rate Blood Pressure 133/86 118/89 Pulse Oximetry 100 100 100 08/23/18 19:00 08/23/18 19:49 08/23/18 20:00 Temperature 99.5 F Pulse Rate 92 H 92 H Respiratory Rate 16 15 Blood Pressure 125/89 Pulse Oximetry 100 100 100 08/23/18 21:00 08/23/18 22:00 08/23/18 23:00 Temperature Pulse Rate 91 H 92 H 87 Respiratory Rate Blood Pressure 124/95 H Pulse Oximetry 100 100 100 08/24/18 00:00 08/24/18 00:21 08/24/18 01:00 Temperature Pulse Rate 86 90 Respiratory Rate 16 Blood Pressure 125/89 Pulse Oximetry 100 100 100 08/24/18 02:00 08/24/18 03:00 08/24/18 04:00 Temperature Pulse Rate 94 H 90 84 Respiratory Rate Blood Pressure 133/95 H 121/81 Pulse Oximetry 100 100 100 08/24/18 05:00 08/24/18 06:00 08/24/18 07:00 Temperature Pulse Rate 87 86 91 H Respiratory Rate Blood Pressure 118/89 Pulse Oximetry 100 100 100 08/24/18 07:40 08/24/18 08:00 08/24/18 09:00 Temperature Pulse Rate 93 H 89 Respiratory Rate 21 Blood Pressure 118/89 Pulse Oximetry 100 100 100 08/24/18 10:00 08/24/18 11:00 Temperature Pulse Rate 88 84 Respiratory Rate Blood Pressure 124/96 H Pulse Oximetry 100 100 Intake & Output 08/23/18 08/24/18 08/24/18 18:59 06:59 18:59 Intake Total 1079 / 1079 716 / 716 Output Total 2700 / 2700 2700 / 2700 Balance -1621 / -162 -1983 / Weight 65.5 kg Intake: IV 650 / 650 300 / 300 Flexbumin 25% Inj 100 ML @ 60 100 / 100 200 / 200 mls/hr IV.SIG Q6HR ANAHI Rx#: [id number] Azithromycin Inj 500 MG In NS 250 / 250 Inj 250 ML @ 250 mls/hr IV.SIG Q24H ANAHI Rx#:[id number] Maxipime Inj 2,000 MG In NS Inj 100 / 100 100 ML @ 200 mls/hr IV.SIG Q24H ANAHI Rx#:[id number] Flagyl 500 MG Inj 100 ML @ 100 200 / 200 100 / 100 mls/hr IV.SIG Q8H ANAHI Rx#: [id number] Oral 0 / 0 Tube Feeding 429 / 429 416 / 416 Output: Urine Amount (Catheter) 1500 / 1500 1850 / 1850 Indwelling Urethral Catheter 1500 / 1500 1850 / 1850 Chest Tube Drainage 1200 / 1200 850 / 850 Right Mid-Axillary Chest 1200 / 1200 850 / 850 Other: Date of Last Bowel Movement 08/21/18 08/24/18 08/24/18 # Bowel Movements 0 3 Narrative: GENERAL: Intubated and mechanically ventilated on 30% FiO2. SKIN: warm and dry. HEAD: Normocephalic. NECK: Intubated, central line in left jugular. CARDIOVASCULAR: Regular rate and rhythm with no murmurs, rubs or gallops. RESPIRATORY: Clear to auscultation bilaterally, chest tube in place on right side. GASTROINTESTINAL: Abdomen soft, non-tender, nondistended. On tube feeds. EXTREMITIES: No edema. - Urinary Catheter Management Indwelling Urethral Catheter Cath placed during this visit: yes Reason for continuing: Hourly intake/output Insertion date: 08/16/18 <Travis Carlton - Last Filed: 08/24/18 11:37> Vital signs: Vital Signs 08/23/18 17:00 08/23/18 18:00 08/23/18 19:00 Temperature Pulse Rate 99 H 93 H 92 H Respiratory Rate Blood Pressure 118/89 Pulse Oximetry 100 100 100 08/23/18 19:49 08/23/18 20:00 08/23/18 21:00 Temperature 99.5 F Pulse Rate 92 H 91 H Respiratory Rate 16 15 Blood Pressure 125/89 Pulse Oximetry 100 100 100 08/23/18 22:00 08/23/18 23:00 08/24/18 00:00 Temperature Pulse Rate 92 H 87 86 Respiratory Rate Blood Pressure 124/95 H 125/89 Pulse Oximetry 100 100 100 08/24/18 00:21 08/24/18 01:00 08/24/18 02:00 Temperature Pulse Rate 90 94 H Respiratory Rate 16 Blood Pressure 133/95 H Pulse Oximetry 100 100 100 08/24/18 03:00 08/24/18 04:00 08/24/18 05:00 Temperature Pulse Rate 90 84 87 Respiratory Rate Blood Pressure 121/81 Pulse Oximetry 100 100 100 08/24/18 06:00 08/24/18 07:00 08/24/18 07:40 Temperature Pulse Rate 86 91 H Respiratory Rate 21 Blood Pressure 118/89 Pulse Oximetry 100 100 100 08/24/18 08:00 08/24/18 09:00 08/24/18 10:00 Temperature Pulse Rate 93 H 89 88 Respiratory Rate Blood Pressure 118/89 124/96 H Pulse Oximetry 100 100 100 08/24/18 11:00 08/24/18 11:53 08/24/18 12:00 Temperature Pulse Rate 84 86 Respiratory Rate 16 Blood Pressure 120/79 Pulse Oximetry 100 99 100 08/24/18 13:00 08/24/18 13:26 Temperature Pulse Rate 88 Respiratory Rate 20 Blood Pressure Pulse Oximetry 100 100 Intake & Output 08/23/18 08/24/18 08/24/18 18:59 06:59 18:59 Intake Total 1079 / 1079 716 / 716 200 / 200 Output Total 2700 / 2700 2700 / 2700 Balance -1620 / -162 -1983 / 200 / 200 Weight 65.5 kg Intake: IV 650 / 650 300 / 300 200 / 200 Flexbumin 25% Inj 100 ML @ 60 100 / 100 200 / 200 100 / 100 mls/hr IV.SIG Q6HR ANAHI Rx#: [id number] Azithromycin Inj 500 MG In NS 250 / 250 Inj 250 ML @ 250 mls/hr IV.SIG Q24H ANAHI Rx#:[id number] Maxipime Inj 2,000 MG In NS Inj 100 / 100 100 ML @ 200 mls/hr IV.SIG Q24H ANAHI Rx#:[id number] Flagyl 500 MG Inj 100 ML @ 100 200 / 200 100 / 100 100 / 100 mls/hr IV.SIG Q8H ANAHI Rx#: [id number] Oral 0 / 0 Tube Feeding 429 / 429 416 / 416 Output: Urine Amount (Catheter) 1500 / 1500 1850 / 1850 Indwelling Urethral Catheter 1500 / 1500 1850 / 1850 Chest Tube Drainage 1200 / 1200 850 / 850 Right Mid-Axillary Chest 1200 / 1200 850 / 850 Other: Date of Last Bowel Movement 08/21/18 08/24/18 08/24/18 # Bowel Movements 0 3 - Urinary Catheter Management Indwelling Urethral Catheter Cath placed during this visit: no <Pedro López - Last Filed: 08/24/18 16:20> Assessment and Plan - Assessment (1) Acute kidney injury superimposed on CKD Code(s): N17.9 - Acute kidney failure, unspecified; N18.9 - Chronic kidney disease, unspecified Status: Acute Plan: Patient previously coded had PEA arrest, patient is intubated. Renal function has improved and is stable today, Creatinine is 2.31. Free water with tube feeds, 250 ml Q4H. Bumex stopped and patient on Diuril. Monitor urine output. Monitor fluid and electrolytes. Avoid nephrotoxic agents. Poor candidate for renal replacement therapy. Palliative care is following. (2) Acute exacerbation of congestive heart failure Code(s): I50.9 - Heart failure, unspecified Status: Acute Plan: Cardiology following. She has cardiomyopathy EF 20%. (3) Elevated troponin Code(s): R74.8 - Abnormal levels of other serum enzymes Status: Acute Plan: Cardiology following. Per note review, will recheck levels once patient stable. (4) Severe sepsis Code(s): A41.9 - Sepsis, unspecified organism; R65.20 - Severe sepsis without septic shock Status: Acute Plan: Patient on Flagyl, Azithromycin, and Cefepime. (5) Pneumonia Code(s): J18.9 - Pneumonia, unspecified organism Status: Acute Plan: chest xray showed stable left basilar opacity representing either atelectasis, consolidations, and/or effusion. No pneumothorax. Patient has right chest tube in place. Last chest x-ray 08/21/18. (6) Pleural effusion Code(s): J90 - Pleural effusion, not elsewhere classified Status: Acute Plan: Patient on Diuril. <Travis Carlton - Last Filed: 08/24/18 11:37> - Assessment (1) Acute kidney injury superimposed on CKD Code(s): N17.9 - Acute kidney failure, unspecified; N18.9 - Chronic kidney disease, unspecified Status: Acute (2) Acute exacerbation of congestive heart failure Code(s): I50.9 - Heart failure, unspecified Status: Acute (3) Elevated troponin Code(s): R74.8 - Abnormal levels of other serum enzymes Status: Acute (4) Severe sepsis Code(s): A41.9 - Sepsis, unspecified organism; R65.20 - Severe sepsis without septic shock Status: Acute (5) Pneumonia Code(s): J18.9 - Pneumonia, unspecified organism Status: Acute (6) Pleural effusion Code(s): J90 - Pleural effusion, not elsewhere classified Status: Acute - Attending Attestation patient was seen and examined. Agree with above assessment and plan. Replace potassium. Increase free water administration. <Pedro López - Last Filed: 08/24/18 16:20>
--- NOTE | 2018-08-24 12:09 | P.PNFP ---
Subjective Interval history: Patient seen and examined at bedside. at bedside. Patient is off sedation, responsive and following commands. Denies any pain. <Mandi PalacioBebe D - 08/24/18 14:36> Results - Labs Result diagrams: 08/24/18 07:50 08/24/18 07:50 <Amelia Phoenix - 08/24/18 22:30> Abnormal lab results 08/24/18 08/24/18 08/24/18 Range/Units 07:50 07:50 15:25 RBC 3.78 L (4.00-5.30) mil/mm3 Hgb 9.2 L (11.6-15.3) gm/dL Hct 27.1 L (35.0-46.0) % MCV 71.8 L (80.0-100.0) fL MCH 24.3 L (27.0-34.0) pg RDW 19.1 H (11.6-17.2) % Plt Count 83 L (150-450) th/mm3 Neut % (Auto) 80.5 H (16.0-70.0) % Lymph % (Auto) 6.0 L (9.0-44.0) % [place] % (Auto) 12.8 H (0.0-8.0) % Neut # (Auto) 8.5 H (1.8-7.7) th/mm3 Lymph # (Auto) 0.6 L (1.0-4.8) th/mm3 [place] # (Auto) 1.3 H (0.0-0.9) th/mm3 Seg Neuts % (Manual) 81 H (16-70) % Lymphocytes % (Manual) 5 L (9-44) % Monocytes % (Manual) 9 H (0-8) % Abs Neuts (Manual) 8.9 H (1.8-7.7) th/mm3 Nucleated RBCs/100 WBC 1 H (0-0) /100 WBC Platelet Estimate Low L (Normal) Basophilic Stippling Faint H (None) Target Cells 1+ H (None) Ovalocytes 1+ H (None) Acanthocytes (Spur) 1+ H (None) Keratocytes 1+ H (None) PT 21.5 H (9.8-11.6) sec APTT 38.0 H (23.4-31.7) sec Sodium 153 H (136-145) meq/L Potassium 2.8 L* (3.5-5.1) meq/L Chloride 108 H (98-107) meq/L Carbon Dioxide 34.4 H (21.0-32.0) meq/L BUN 89 H (7-18) mg/dL Creatinine 2.31 H (0.50-1.00) mg/dL Estimated GFR 25 L (>89) mL/min Random Glucose 139 H (74-106) mg/dL Short CBC 08/24/18 Range/Units 07:50 WBC 10.5 (4.0-11.0) th/mm3 Hgb 9.2 L (11.6-15.3) gm/dL Hct 27.1 L (35.0-46.0) % Plt Count 83 L (150-450) th/mm3 BMP 08/24/18 07:50 Sodium 153 H Potassium 2.8 L* Chloride 108 H Carbon Dioxide 34.4 H BUN 89 H Creatinine 2.31 H Calcium 9.9 <Amelia Phoenix - 08/24/18 22:30> Abnormal lab results 08/24/18 08/24/18 Range/Units 07:50 07:50 RBC 3.78 L (4.00-5.30) mil/mm3 Hgb 9.2 L (11.6-15.3) gm/dL Hct 27.1 L (35.0-46.0) % MCV 71.8 L (80.0-100.0) fL MCH 24.3 L (27.0-34.0) pg RDW 19.1 H (11.6-17.2) % Plt Count 83 L (150-450) th/mm3 Neut % (Auto) 80.5 H (16.0-70.0) % Lymph % (Auto) 6.0 L (9.0-44.0) % [place] % (Auto) 12.8 H (0.0-8.0) % Neut # (Auto) 8.5 H (1.8-7.7) th/mm3 Lymph # (Auto) 0.6 L (1.0-4.8) th/mm3 [place] # (Auto) 1.3 H (0.0-0.9) th/mm3 Seg Neuts % (Manual) 81 H (16-70) % Lymphocytes % (Manual) 5 L (9-44) % Monocytes % (Manual) 9 H (0-8) % Abs Neuts (Manual) 8.9 H (1.8-7.7) th/mm3 Nucleated RBCs/100 WBC 1 H (0-0) /100 WBC Platelet Estimate Low L (Normal) Basophilic Stippling Faint H (None) Target Cells 1+ H (None) Ovalocytes 1+ H (None) Acanthocytes (Spur) 1+ H (None) Keratocytes 1+ H (None) Sodium 153 H (136-145) meq/L Potassium 2.8 L* (3.5-5.1) meq/L Chloride 108 H (98-107) meq/L Carbon Dioxide 34.4 H (21.0-32.0) meq/L BUN 89 H (7-18) mg/dL Creatinine 2.31 H (0.50-1.00) mg/dL Estimated GFR 25 L (>89) mL/min Random Glucose 139 H (74-106) mg/dL Short CBC 08/24/18 Range/Units 07:50 WBC 10.5 (4.0-11.0) th/mm3 Hgb 9.2 L (11.6-15.3) gm/dL Hct 27.1 L (35.0-46.0) % Plt Count 83 L (150-450) th/mm3 BMP 08/24/18 07:50 Sodium 153 H Potassium 2.8 L* Chloride 108 H Carbon Dioxide 34.4 H BUN 89 H Creatinine 2.31 H Calcium 9.9 <Bebe Camargo D - 08/24/18 12:09> Physical Exam Vital signs: Vital Signs 08/23/18 23:00 08/24/18 00:00 08/24/18 00:21 Pulse Rate 87 86 Respiratory Rate 16 Blood Pressure 125/89 Pulse Oximetry 100 100 100 08/24/18 01:00 08/24/18 02:00 08/24/18 03:00 Pulse Rate 90 94 H 90 Respiratory Rate Blood Pressure 133/95 H Pulse Oximetry 100 100 100 08/24/18 04:00 08/24/18 05:00 08/24/18 06:00 Pulse Rate 84 87 86 Respiratory Rate Blood Pressure 121/81 118/89 Pulse Oximetry 100 100 100 08/24/18 07:00 02/08/19 07:40 08/24/18 08:00 Pulse Rate 91 H 93 H Respiratory Rate 21 Blood Pressure 118/89 Pulse Oximetry 100 100 100 08/24/18 09:00 08/24/18 10:00 08/24/18 11:00 Pulse Rate 89 88 84 Respiratory Rate Blood Pressure 124/96 H Pulse Oximetry 100 100 100 08/24/18 11:53 08/24/18 12:00 08/24/18 13:00 Pulse Rate 86 88 Respiratory Rate 16 Blood Pressure 120/79 Pulse Oximetry 99 100 100 08/24/18 13:26 08/24/18 14:00 08/24/18 15:00 Pulse Rate 91 H 90 Respiratory Rate 20 Blood Pressure Pulse Oximetry 100 100 96 08/24/18 16:00 08/24/18 16:01 08/24/18 17:00 Pulse Rate 87 86 86 Respiratory Rate Blood Pressure 100/76 Pulse Oximetry 100 100 100 08/24/18 18:00 08/24/18 20:47 Pulse Rate 88 Respiratory Rate 27 H Blood Pressure Pulse Oximetry 100 98 Intake & Output 08/24/18 08/24/18 08/25/18 06:59 18:59 06:59 Intake Total 716 / 716 950 / 950 Output Total 2700 / 2700 1650 / 1650 Balance -1983 / -1983 -700 / -700 Weight 65.5 kg Intake: IV 300 / 300 950 / 950 Flexbumin 25% Inj 100 ML @ 60 200 / 200 200 / 200 mls/hr IV.SIG Q6HR ANAHI Rx#: [id number] Azithromycin Inj 500 MG In NS 250 / 250 Inj 250 ML @ 250 mls/hr IV.SIG Q24H ANAHI Rx#:[id number] Maxipime Inj 2,000 MG In NS Inj 100 / 100 100 ML @ 200 mls/hr IV.SIG Q24H ANAHI Rx#:[id number] KCl 40 mEq Premix Inj 80 meq In 200 / 200 200 ml @ 50 mls/hr IV.SIG Q4H ANAHI Rx#:[id number] Flagyl 500 MG Inj 100 ML @ 100 100 / 100 200 / 200 mls/hr IV.SIG Q8H ANAHI Rx#: [id number] Tube Feeding 416 / 416 Output: Urine Amount (Catheter) 1850 / 0 800 / 800 Indwelling Urethral Catheter 1850 / 1850 800 / 800 Chest Tube Drainage 850 / 850 850 / 850 Right Mid-Axillary Chest 850 / 850 850 / 850 Other: Date of Last Bowel Movement 08/24/18 08/24/18 # Bowel Movements 3 6 <Amelia Phoenix - 08/24/18 22:30> Vital Signs 08/23/18 13:00 08/23/18 14:00 08/23/18 15:00 Temperature Pulse Rate 100 H 109 H 104 H Respiratory Rate Blood Pressure Pulse Oximetry 100 100 100 08/23/18 15:31 08/23/18 16:00 08/23/18 16:01 Temperature 98.7 F Pulse Rate 102 H 102 H Respiratory Rate 18 Blood Pressure 133/86 133/86 Pulse Oximetry 100 100 100 08/23/18 17:00 08/23/18 18:00 08/23/18 19:00 Temperature Pulse Rate 99 H 93 H 92 H Respiratory Rate Blood Pressure 118/89 Pulse Oximetry 100 100 100 08/23/18 19:49 08/23/18 20:00 08/23/18 21:00 Temperature 99.5 F Pulse Rate 92 H 91 H Respiratory Rate 16 15 Blood Pressure 125/89 Pulse Oximetry 100 100 100 08/23/18 22:00 08/23/18 23:00 08/24/18 00:00 Temperature Pulse Rate 92 H 87 86 Respiratory Rate Blood Pressure 124/95 H 125/89 Pulse Oximetry 100 100 100 08/24/18 00:21 08/24/18 01:00 08/24/18 02:00 Temperature Pulse Rate 90 94 H Respiratory Rate 16 Blood Pressure 133/95 H Pulse Oximetry 100 100 100 08/24/18 03:00 08/24/18 04:00 08/24/18 05:00 Temperature Pulse Rate 90 84 87 Respiratory Rate Blood Pressure 121/81 Pulse Oximetry 100 100 100 08/24/18 06:00 08/24/18 07:00 08/24/18 07:40 Temperature Pulse Rate 86 91 H Respiratory Rate 21 Blood Pressure 118/89 Pulse Oximetry 100 100 100 08/24/18 08:00 08/24/18 09:00 08/24/18 10:00 Temperature Pulse Rate 93 H 89 88 Respiratory Rate Blood Pressure 118/89 124/96 H Pulse Oximetry 100 100 100 08/24/18 11:00 08/24/18 11:53 Temperature Pulse Rate 84 Respiratory Rate 16 Blood Pressure Pulse Oximetry 100 99 Intake & Output 08/23/18 08/24/18 08/24/18 18:59 06:59 18:59 Intake Total 1079 / 1079 716 / 716 Output Total 2700 / 2700 2700 / 2700 Balance -1621 / -1621 -1983 / Weight 65.5 kg Intake: IV 650 / 650 300 / 300 Flexbumin 25% Inj 100 ML @ 60 100 / 100 200 / 200 mls/hr IV.SIG Q6HR ANAHI Rx#: [id number] Azithromycin Inj 500 MG In NS 250 / 250 Inj 250 ML @ 250 mls/hr IV.SIG Q24H ANAHI Rx#:[id number] Maxipime Inj 2,000 MG In NS Inj 100 / 100 100 ML @ 200 mls/hr IV.SIG Q24H ANAHI Rx#:[id number] Flagyl 500 MG Inj 100 ML @ 100 200 / 200 100 / 100 mls/hr IV.SIG Q8H ANAHI Rx#: [id number] Oral 0 / 0 Tube Feeding 429 / 429 416 / 416 Output: Urine Amount (Catheter) 1500 / 1500 1850 / 1850 Indwelling Urethral Catheter 1500 / 1500 1850 / 1850 Chest Tube Drainage 1200 / 1200 850 / 850 Right Mid-Axillary Chest 1200 / 1200 850 / 850 Other: Date of Last Bowel Movement 08/21/18 08/24/18 08/24/18 # Bowel Movements 0 3 <Mandi PalacioBebe D - 08/24/18 12:09> Narrative: GENERAL: Intubated and mechanically ventilated on 30% FiO2. SKIN: warm and dry. HEAD: Normocephalic. NECK: Intubated, central line in left jugular. Icteric sclera appreciated. CARDIOVASCULAR: Regular rate and rhythm with no murmurs, rubs or gallops. RESPIRATORY: Clear to auscultation bilaterally, chest tube in place on right side. GASTROINTESTINAL: Abdomen soft, non-tender, nondistended. On tube feeds. EXTREMITIES: No lower ext edema BL, NEUROLOGICAL: Responsive and following commands. <Mandi Palacio,Bebe D - 08/24/18 14:36> - Urinary Catheter Management Indwelling Urethral Catheter Cath placed during this visit: no <Amelia Phoenix - 08/24/18 22:30> yes <Bebe Camargo D - 08/24/18 14:36> Reason for continuing: Hourly intake/output <Calzado Hannah Palacioly D - 08/24/18 12: 09> Insertion date: 08/16/18 <Calzado Hannah Palacioly D - 08/24/18 12:09> Assessment and Plan - Assessment (1) Severe sepsis Code(s): A41.9 - Sepsis, unspecified organism; R65.20 - Severe sepsis without septic shock Status: Acute (2) Pneumonia Code(s): J18.9 - Pneumonia, unspecified organism Status: Acute (3) Acute exacerbation of CHF (congestive heart failure) Code(s): I50.9 - Heart failure, unspecified Status: Acute (4) Acute on chronic kidney failure Code(s): N17.9 - Acute kidney failure, unspecified; N18.9 - Chronic kidney disease, unspecified Status: Acute (5) Pleural effusion Code(s): J90 - Pleural effusion, not elsewhere classified Status: Acute (6) PEA (Pulseless electrical activity) Code(s): I46.9 - Cardiac arrest, cause unspecified Status: Resolved (7) Elevated troponin Code(s): R74.8 - Abnormal levels of other serum enzymes Status: Acute (8) Nutrition, metabolism, and development symptoms Code(s): R63.8 - Other symptoms and signs concerning food and fluid intake Status: Acute <Amelia Phoenix - 08/24/18 22:30> (1) Severe sepsis Code(s): A41.9 - Sepsis, unspecified organism; R65.20 - Severe sepsis without septic shock Status: Acute Plan: Community-acquired pneumonia complicated by lower extremity edema in the setting of CHF with an EF of 20%. Patient status post thoracentesis for pleural effusion. -Intubated mechanically ventilated -Patient continues to require pressor support with Levophed -Blood cultures (08/15): No growth to date -Pleural fluid Gram stain and cultures no growth to date -Metabolic encephalopathy secondary to sepsis, without evidence of significant anoxic injury from PEA arrest -Remains afebrile, WBC count within normal limits Plan: Per Lever Operator: Continue - Flagyl 500 mg every 8h (08/15-) - Cefepime 2000 mg every 8 hours (08/15-) - Azithromycin 500mg (08/16-) -Consider Diamox if bicarbonate levels continue to rise -CPAP trials, if patient is able to protect her airway and has good lung expansion patient may be extubated Palliative care following, goals of care remain aggressive. Patient is day 8 of intubation, family will need to make decision on trach by upcoming Monday for long-term management. (2) Pneumonia Code(s): J18.9 - Pneumonia, unspecified organism Status: Acute Plan: Community acquired right-sided pneumonia with lactic acidosis. -DuoNeb every 2 hours as needed -Sputum culture uncollected -Respiratory panel uncollected -Continue with antibiotics per critical care team as dictated above -Repeat CXR 08/21 Stable chest x-ray with left basilar opacity representing either atelectasis, consolidation, and/or effusion. Right chest tube remains present and no pneumothorax is seen (3) Acute exacerbation of CHF (congestive heart failure) Code(s): I50.9 - Heart failure, unspecified Status: Acute Plan: -BNP 4000 on admission -Patient being diuresed with Bumex IV -Lower extremity edema greatly improved -Echo 08/17: EF 20%, fairly dilated left ventricle, severe mitral regurgitation -Urine output slightly improved today at 2.13 ml/kg -Cardiology following and agree with current plan Per cardiology prognosis is poor. (4) Acute on chronic kidney failure Code(s): N17.9 - Acute kidney failure, unspecified; N18.9 - Chronic kidney disease, unspecified Status: Acute Plan: This patient stage III CKD with elevated creatinine above baseline on admission. Possibly due to decrease intravascular volume in the setting of sepsis. -Creatinine on admission 2.72 from baseline of 1.5. -Creatinine stable at 2.33 -Urine output 1.5ml/kg/hr -Nephrology Dr. James following Plan: -Discontinue Bumex -Begin Chlorothiazide 500mg po BID -Trend kidney function -Trend I/O -Hemodialysis not recommended by nephrology at this time -May need Diamox for bicarbonate levels -Nephrology following, appreciate rec (5) Pleural effusion Code(s): J90 - Pleural effusion, not elsewhere classified Status: Acute Plan: Patient status post right sided thoracentesis (08/16/18) with evacuation of approximately 950 ml of slightly cloudy, yellow colored fluid was removed. -Patient underwent therapeutic right sided chest tube placement with pigtail that drained 950ml of slightly cloudy yellow fluid. -08/16: Pleural fluid showed 1,333 red blood cells with 230 nucleated cells. Fluid consistent with transudative process. Cultures show no growth to date. Plan: -Chest tube draining approx 850ml in last 24 hours -Monitor chest tube output -Continue pulmonary care as stated above -Possible extubation pending CPAP trials (6) PEA (Pulseless electrical activity) Code(s): I46.9 - Cardiac arrest, cause unspecified Status: Resolved Plan: Patient required ACLS for 9 minutes on 08/16/18 for PEA arrest -ROSC was achieved by critical care medicine -Patient was intubated and sedated and treated with pressor support See treatment for severe sepsis (7) Elevated troponin Code(s): R74.8 - Abnormal levels of other serum enzymes Status: Acute Plan: Initial troponins of admission 0.10 with no chest pain or ST elevation or depression on EKG. ACS versus elevated troponins in the setting of chronic kidney disease and increased cardiac demand. Patient in SVT on admission now resolved. -EKG: Initial EKG showed supraventricular tachycardia -Chest x-ray consolidation right midlung and cardiomegaly -Initial troponin 0.10--> 0.45 Plan: -Plan to recheck troponins after patient is stabilized (8) Nutrition, metabolism, and development symptoms Code(s): R63.8 - Other symptoms and signs concerning food and fluid intake Status: Acute Plan: Fluids: Per staff toxicologist Electrolytes: Replete as needed Nutrition: Tube feeds with Nepro, Suplena 1.8 @ 50mL/hr w/ Beneprotein 1-pkt TID recommended by dietitian DVT prophylaxis: Coumadin <Bebe Camargo D - 08/24/18 14:07> - Attending Attestation Patient seen, examined, and discussed this morning with resident team. I agree with assessment and management as documented and discussed with me. Pt remains intubated; currently on CPAP trial. at bedside. <Amelia Phoenix - 08/24/18 22:30> <Bebe Camargo D - Last Filed: 08/24/18 14:07> (3) Acute exacerbation of CHF (congestive heart failure) Qualifiers: Heart failure type: systolic Qualified Code(s): I50.23 - Acute on chronic systolic (congestive) heart failure (4) Acute on chronic kidney failure Qualifiers: Acute renal failure type: unspecified Chronic kidney disease stage: stage 4 ( severe) Qualified Code(s): N17.9 - Acute kidney failure, unspecified; N18.4 - Chronic kidney disease, stage 4 (severe) <Amelia Phoenix - Last Filed: 08/24/18 22:30> (3) Acute exacerbation of CHF (congestive heart failure) Qualifiers: Heart failure type: systolic Qualified Code(s): I50.23 - Acute on chronic systolic (congestive) heart failure (4) Acute on chronic kidney failure Qualifiers: Acute renal failure type: unspecified Chronic kidney disease stage: stage 4 ( severe) Qualified Code(s): N17.9 - Acute kidney failure, unspecified; N18.4 - Chronic kidney disease, stage 4 (severe) <Bebe Camargo D - Last Filed: 08/24/18 14:07> (3) Acute exacerbation of CHF (congestive heart failure) Qualifiers: Heart failure type: systolic Qualified Code(s): I50.23 - Acute on chronic systolic (congestive) heart failure (4) Acute on chronic kidney failure Qualifiers: Acute renal failure type: unspecified Chronic kidney disease stage: stage 4 ( severe) Qualified Code(s): N17.9 - Acute kidney failure, unspecified; N18.4 - Chronic kidney disease, stage 4 (severe) <Amelia Phoenix - Last Filed: 08/24/18 22:30> (3) Acute exacerbation of CHF (congestive heart failure) Qualifiers: Heart failure type: systolic Qualified Code(s): I50.23 - Acute on chronic systolic (congestive) heart failure (4) Acute on chronic kidney failure Qualifiers: Acute renal failure type: unspecified Chronic kidney disease stage: stage 4 ( severe) Qualified Code(s): N17.9 - Acute kidney failure, unspecified; N18.4 - Chronic kidney disease, stage 4 (severe)
[2018-08-24] MEDS: Milrinone Inj 20 MG in Sodium Chlor 0.9% Inj 80 ML IV.CONT SCH (15:13)
[2018-08-24] MEDS ORDERED: Potassium Chlor 40 mEq Premix 40 MEQ/100 ML PIGGYBACK IV.SIG ONE (15:30)
--- NOTE | 2018-08-24 17:26 | P.PNPAL ---
Reason for Visit Reason for visit: a. To assist with evaluation and management of symptoms including: Shortness of breath, at risk for pain, debility b. To assist medical decision maker(s) with: better understanding of current medical conditions; weighing benefits/burdens of medical treatment options; making medical treatment decisions. Subjective Subjective/Interval History: Patient seen and examined in room in MICU. Follow-up medically necessary for symptom management and family support. She remains intubated on mechanical ventilation. Patient currently on full ventilatory support. FiO2 currently 30 % with O2 saturation in the mid to high 90s. Failed CPAP trial today. Bedside RN reported patient being tachypneic when pressure support volume was weaned down from 10 to 7 while on CPAP. Patient has put out approximately 2 L from the right-sided chest tube in 24 hours. She is awake, following simple commands with all 4 extremities. Patient attempting to communicate by shaking head for "no" and nodding head for "yes" and mouthing words. She does not appear to be in pain at this time. Patient is off Bumex drip. Laboratory workup on 06/23/19 revealing WBC 10.5, hemoglobin 9.2, hematocrit 27.1, platelet count 83, sodium 153, potassium 2.8, BUN/creatinine 89/2.31. No family at bedside during visit. . Family/Friend Interactions: No family at bedside. . Advance Directives Living Will: Never completed Health Care Surrogate: Never completed Durable Power of Air Pollution Auditor: Never completed Health Care Surrogate Name and Number: HCP: Rey Willis [phone] Documented care wishes:: Never completed advanced directives. . Objective Vital Signs: Vital Signs 08/23/18 18:00 08/23/18 19:00 08/23/18 19:49 Temperature Pulse Rate 93 H 92 H Respiratory Rate 16 Blood Pressure 118/89 Pulse Oximetry 100 100 100 08/23/18 20:00 08/23/18 21:00 08/23/18 22:00 Temperature 99.5 F Pulse Rate 92 H 91 H 92 H Respiratory Rate 15 Blood Pressure 125/89 124/95 H Pulse Oximetry 100 100 100 08/23/18 23:00 08/24/18 00:00 08/24/18 00:21 Temperature Pulse Rate 87 86 Respiratory Rate 16 Blood Pressure 125/89 Pulse Oximetry 100 100 100 08/24/18 01:00 08/24/18 02:00 08/24/18 03:00 Temperature Pulse Rate 90 94 H 90 Respiratory Rate Blood Pressure 133/95 H Pulse Oximetry 100 100 100 08/24/18 04:00 08/24/18 05:00 08/24/18 06:00 Temperature Pulse Rate 84 87 86 Respiratory Rate Blood Pressure 121/81 118/89 Pulse Oximetry 100 100 100 08/24/18 07:00 08/24/18 07:40 08/24/18 08:00 Temperature Pulse Rate 91 H 93 H Respiratory Rate 21 Blood Pressure 118/89 Pulse Oximetry 100 100 100 08/24/18 09:00 08/24/18 10:00 08/24/18 11:00 Temperature Pulse Rate 89 88 84 Respiratory Rate Blood Pressure 124/96 H Pulse Oximetry 100 100 100 08/24/18 11:53 08/24/18 12:00 08/24/18 13:00 Temperature Pulse Rate 86 88 Respiratory Rate 16 Blood Pressure 120/79 Pulse Oximetry 99 100 100 08/24/18 13:26 08/24/18 14:00 08/24/18 15:00 Temperature Pulse Rate 91 H 90 Respiratory Rate 20 Blood Pressure Pulse Oximetry 100 100 96 08/24/18 16:00 08/24/18 16:01 Temperature Pulse Rate 87 86 Respiratory Rate Blood Pressure 100/76 Pulse Oximetry 100 100 Intake & Output 08/23/18 08/24/18 08/24/18 18:59 06:59 18:59 Intake Total 1079 / 1079 716 / 716 200 / 200 Output Total 2700 / 2700 2700 / 2700 Balance -162 / -162 -1983 / 200 / 200 Weight 65.5 kg Intake: IV 650 / 650 300 / 300 200 / 200 Flexbumin 25% Inj 100 ML @ 60 100 / 100 200 / 200 100 / 100 mls/hr IV.SIG Q6HR [facility] Rx#: [id number] Azithromycin Inj 500 MG In NS 250 / 250 Inj 250 ML @ 250 mls/hr IV.SIG Q24H [facility] Rx#:[id number] Maxipime Inj 2,000 MG In NS Inj 100 / 100 100 ML @ 200 mls/hr IV.SIG Q24H [facility] Rx#:[id number] Flagyl 500 MG Inj 100 ML @ 100 200 / 200 100 / 100 100 / 100 mls/hr IV.SIG Q8H [facility] Rx#: [id number] Oral 0 / 0 Tube Feeding 429 / 429 416 / 416 Output: Urine Amount (Catheter) 1500 / 1500 1850 / 1850 Indwelling Urethral Catheter 1500 / 1500 1850 / 1850 Chest Tube Drainage 1200 / 1200 850 / 850 Right Mid-Axillary Chest 1200 / 1200 850 / 850 Other: Date of Last Bowel Movement 08/21/18 08/24/18 08/24/18 # Bowel Movements 0 3 Physical Exam: CONSTITUTIONAL/GENERAL: This is an adequately nourished patient, intubated on [facility] vent. TUBES/LINES/DRAINS: ETT, OG tube, TLC left IJ, femoral A-line, right chest tube , PIV, SCDs, bilateral upper extremity soft restraints SKIN: No jaundice, rashes, or lesions. Healed scar to left upper chest wall. Normothermic. EYES: Spontaneously opening eyes, tracking. ENT: Nose without bleeding or purulent drainage. Endotracheally intubated. Orogastric tube CARDIOVASCULAR: Regular rate and rhythm. AICD to right upper chest wall. RESPIRATORY/CHEST: Symmetric, unlabored respirations on vent. Crackles right. Right chest tube to suction GASTROINTESTINAL: Abdomen soft, nondistended. No guarding. Bowel sounds present. GENITOURINARY: Without palpable bladder distension. Bradley catheter in place. MUSCULOSKELETAL: right hand trace edema. No mottling or clubbing. NEUROLOGICAL: Intubated, off sedation. Eyes open, tracking, following simple commands with all 4 extremities. PSYCHIATRIC: Off sedation. Calm . Diagnostic Tests Laboratory: Laboratory Results - last 72 hr 08/22/18 08/22/18 08/22/18 03:23 03:23 17:50 WBC 9.4 RBC 4.33 Hgb 10.3 L Hct 31.3 L MCV 72.4 L MCH 23.7 L MCHC 32.8 RDW 19.3 H Plt Count 135 L MPV 11.0 Prelim Diff (Auto) Slide review pending Neut % (Auto) 90.1 H Lymph % (Auto) 2.1 L [place] % (Auto) 6.4 Eos % (Auto) 1.1 Baso % (Auto) 0.3 Neut # (Auto) 8.5 H Lymph # (Auto) 0.2 L [place] # (Auto) 0.6 Eos # (Auto) 0.1 Baso # (Auto) 0.0 WBC Differential . Diff Scan Auto diff confirmed Seg Neuts % (Manual) Band Neuts % (Manual) Lymphocytes % (Manual) Monocytes % (Manual) Eosinophils % (Manual) Abs Neuts (Manual) Nucleated RBCs/100 WBC Differential Comment . Platelet Estimate Low L Platelet Morphology Normal Basophilic Stippling Moderate H Target Cells 1+ H Ovalocytes 1+ H Acanthocytes (Spur) 1+ H Keratocytes Occ H PT INR APTT Sodium 151 H Potassium 2.7 L* 3.1 L Chloride 106 Carbon Dioxide 33.9 H Anion Gap 11 BUN 74 H Creatinine 2.50 H Estimated GFR 23 L Random Glucose 170 H Calcium 8.8 Total Bilirubin 7.1 H AST 42 H ALT 24 Alkaline Phosphatase 65 Total Protein 6.3 L Albumin 4.4 08/23/18 08/23/18 08/23/18 09:00 09:00 09:00 WBC 10.7 RBC 3.99 L Hgb 9.4 L Hct 29.2 L MCV 73.2 L MCH 23.7 L MCHC 32.3 RDW 19.5 H Plt Count 113 L MPV 11.4 H Prelim Diff (Auto) Slide review pending Neut % (Auto) 83.4 H Lymph % (Auto) 5.7 L [place] % (Auto) 9.9 H Eos % (Auto) 0.8 Baso % (Auto) 0.2 Neut # (Auto) 9.0 H Lymph # (Auto) 0.6 L [place] # (Auto) 1.1 H Eos # (Auto) 0.1 Baso # (Auto) 0.0 WBC Differential . Diff Scan Auto diff confirmed Seg Neuts % (Manual) Band Neuts % (Manual) Lymphocytes % (Manual) Monocytes % (Manual) Eosinophils % (Manual) Abs Neuts (Manual) Nucleated RBCs/100 WBC Differential Comment . Platelet Estimate Low L Platelet Morphology Enlarged H Basophilic Stippling Target Cells 1+ H Ovalocytes 1+ H Acanthocytes (Spur) 1+ H Keratocytes 1+ H PT 20.5 H INR 2.0 APTT 35.9 H Sodium 152 H Potassium 3.5 Chloride 111 H Carbon Dioxide 33.3 H Anion Gap 8 BUN 82 H Creatinine 2.33 H Estimated GFR 25 L Random Glucose 133 H Calcium 9.3 Total Bilirubin AST ALT Alkaline Phosphatase Total Protein Albumin 08/24/18 08/24/18 07:50 07:50 WBC 10.5 RBC 3.78 L Hgb 9.2 L Hct 27.1 L MCV 71.8 L MCH 24.3 L MCHC 33.8 RDW 19.1 H Plt Count 83 L MPV 9.0 Prelim Diff (Auto) Slide review pending Neut % (Auto) 80.5 H Lymph % (Auto) 6.0 L [place] % (Auto) 12.8 H Eos % (Auto) 0.5 Baso % (Auto) 0.2 Neut # (Auto) 8.5 H Lymph # (Auto) 0.6 L [place] # (Auto) 1.3 H Eos # (Auto) 0.0 Baso # (Auto) 0.0 WBC Differential Manual diff final Diff Scan Seg Neuts % (Manual) 81 H Band Neuts % (Manual) 4 Lymphocytes % (Manual) 5 L Monocytes % (Manual) 9 H Eosinophils % (Manual) 1 Abs Neuts (Manual) 8.9 H Nucleated RBCs/100 WBC 1 H Differential Comment . Platelet Estimate Low L Platelet Morphology Normal Basophilic Stippling Faint H Target Cells 1+ H Ovalocytes 1+ H Acanthocytes (Spur) 1+ H Keratocytes 1+ H PT INR APTT Sodium 153 H Potassium 2.8 L* Chloride 108 H Carbon Dioxide 34.4 H Anion Gap 11 BUN 89 H Creatinine 2.31 H Estimated GFR 25 L Random Glucose 139 H Calcium 9.9 Total Bilirubin AST ALT Alkaline Phosphatase Total Protein Albumin Result Diagrams: 08/24/18 07:50 08/24/18 07:50 Microbiology: Microbiology 08/22/18 17:55 Gram Stain - Final Sputum - Endotracheal Sputum Culture - Final Moderate growth normal respiratory bear 08/16/18 13:20 Fungal Smear - Final Fluid - Pleural fluid No fungal elements seen Fungal Culture - Preliminary No growth in 1 week 08/16/18 13:20 Acid Fast Bacilli Smear - Final Fluid - Pleural fluid No acid fast bacilli seen Mycobacterial Culture - Preliminary No growth in 1 week 08/20/18 10:40 Gram Stain - Final Fluid - Pleural fluid Body Fluid Culture - Final No growth in 72 hours (aerobically and anaerobically) Imaging: Head CT 08/17/18 00:00 CONCLUSION: 1. No acute intracranial abnormality demonstrated. 2. 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 . Chest X-Ray 08/21/18 06:00 CONCLUSION: Stable chest x-ray with left basilar opacity representing either atelectasis, consolidation, and/or effusion. Right chest tube remains present and no pneumothorax is seen. Procedures: 08/15/18-placement of left IJ central line 08/16/18-endotracheal intubation after PEA arrest 08/16/18-bedside thoracentesis with removal of 950 mL's of slightly cloudy, yellow colored fluid. 08/16/18-right femoral arterial line placement 08/20/18-right chest tube placement . Assessment and Plan - Disease Oriented Problem List (1) Severe sepsis (2) Cardiogenic shock (3) Systolic heart failure (4) Cardiomyopathy (5) Pulmonary edema (6) Pneumonia (7) Lactic acidemia (8) Supratherapeutic INR (9) Hypertension - Symptom Scale (1) Shortness of breath 0-10 Scale: Unable to quantify Comment: History of congestive heart failure, chronic kidney disease and recent PEA (2) At risk for pain Comment: Patient went into PEA arrest on 08/16/18 (3) Debility 0-10 Scale: Unable to quantify Comment: Progressive. Patient has had multiple hospitalizations in the past 12 months. Pertinent Non-Medical Issues: Psychosocial: Patient is originally from [place]. She moved to [place] in 2014. Patient worked in [employer]. 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 Patient has been to her current for 43 years. They have 2 adult sons, Rey Hodge who lives locally and another son who lives in [place]. She has 6 grandchildren. Spiritual: Patient is Mandaeism-open to coffee roaster visits. Lead Application Architect Thomas has visited with spouse before. Legal: Never completed advanced directives. Ethical issues impacting care: None identified at this time . Important Contacts: Spouse-Rey Funes [phone] Son-Rey Funes [phone] Daughter-Tracey FunesPphne-[phone] Prognosis: Mrs. Funes is a 67-year-old old with a medical history significant for congestive heart failure with an ejection fraction less than 20%, coronary artery disease, ventricular tachycardia with a [employer] ICD, pulmonary embolism , chronic kidney disease stage III, hypertension, cardiovascular accident with residual left-sided weakness in 2017. Patient presented to the emergency room on 08/15/2018 for further evaluation of progressive weakness, shortness of breath, lower extremity edema and productive cough. Patient's hospital course complicated with PEA cardiac arrest, worsening lung function requiring chest tube placement, and worsening renal function despite aggressive diuresis. Given multiple ongoing comorbidities, patient remains at high risk for further complications, deterioration and decline. . Code Status: Full Code Plan: PLAN: Legal decision maker: Patient is currently intubated. It is not known whether the patient will regain capacity to participate in medical decision making. She is . According to [place] statute patient's spouse Rey Fnues Sr will serve as patient's healthcare proxy decision-maker. Goals: Patient spouse would like to continue with aggressive treatment/ goals per discussion on 08/24/18. He was hopeful that patient would get medically extubated. CODE STATUS: Full code SYMPTOMS: * Shortness of breath: Patient has history of CHF, and currently has pneumonia and acute on chronic kidney failure. Intubated on 08/16/18 after PEA arrest. Patient has had thoracentesis and has recurrent pleural effusions requiring thoracotomy and placement of right chest tubes. Patient is on antibiotics. Remains off sedation. Patient failed CPAP trials. * At risk for pain: Patient is currently bedbound and had PEA arrest requiring CPR on 08/16/17 and intubation. Patient has had multiple procedures done including thoracentesis, thoracotomy with chest tube placement, central line placement and arterial line placement which can all be sources of pain. Patient is currently not showing any signs of pain. Remains off sedation. * Debility. Progressive. Patient has multiple ongoing comorbidities. She has had multiple (x7) hospitalizations in the past year. Patient has been increasingly getting weak due to her failing heart. Patient will most likely continue to deteriorate given her heart condition, she will most likely be not able to effectively participate in physical therapy/rehabilitation. Palliative care will continue to follow the patient during hospital course as condition evolves, to assist patient/decision-maker with understanding of their medical conditions, weighing benefits/burdens of treatment options, for clarification of goals of treatment. Additionally will assist with any symptoms of palliative concern Attestation Attestation: To help prompt me to consider important information that might be impacting today's encounter and assessment, information from prior notes written by myself or my colleagues may have been "brought forward" into today's note. My signature on this note, however, is an attestation that I personally performed the exam, history, and/or decision-making noted today, and, unless otherwise indicated, the interactions with patient, family, and staff as well as the review of records all occurred today. I also attest that the listed assessment and stated plan reflect my best clinical judgment today based on the combination of historical information, prior notes, and today's exam/ interactions. When time spent is documented, it refers only to time spent today by the signer, or if indicated, combined time spent today by collaborating physician/nurse practitioner.
[2018-08-24 18:24] LABS: INR 2.1 Ratio; Prothrombin Time 21.5 sec (9.8-11.6)
[2018-08-25] MEDS: Albumin Human 25% Inj 100 ML IV.SIG SCH ×2 (00:02→06:27)
[2018-08-25] MEDS ORDERED: Sod Chloride 0.9% Inj 1,500 ML IV.SIG SCH (03:15)
[2018-08-25 03:24] LABS: Hematocrit 29.9 % (35.0-46.0); Hemoglobin 9.3 gm/dL (11.6-15.3); Mean Corpuscular HGB Conc 31.3 % (32.0-36.0); Mean Corpuscular Hemoglobin 23.5 pg (27.0-34.0); Mean Corpuscular Volume 75.1 fL (80.0-100.0); Mean Platelet Volume 9.4 fL (7.0-11.0); Platelet Count 81 th/mm3 (150-450); Red Blood Count 3.98 mil/mm3 (4.00-5.30); White Blood Count 12.7 th/mm3 (4.0-11.0)
[2018-08-25 03:35] LABS: Activated Partial Thrombo Time 45.6 sec (23.4-31.7); INR 3.4 Ratio; Prothrombin Time 34.1 sec (9.8-11.6)
[2018-08-25 04:23] LABS: Lymphocytes 7 % (9-44); Metamyelocytes 2 % (0-1); Monocytes 9 % (0-8); Tallied Nucleated RBC 2 (0-0)
[2018-08-25 04:24] LABS: Acanthocytes 1+; Ovalocytes 1+; Target Cells 1+
--- NOTE | 2018-08-25 05:26 | XR ---
EXAM DATE: 08/25/2018 5:19 AM EST AGE/SEX: 67 years / Female INDICATIONS: Shortness of breath, possible pulmonary disease. CLINICAL DATA: This is the patient's subsequent encounter. Patient reports that signs and symptoms h ave been present for 1 week and indicates a pain score of Nonresponsive. MEDICAL/SURGICAL HISTORY: Myocardial infarction. Pacemaker. COMPARISON: [facility], CHEST 1V SINGLE AP, 08/21/2018. . FINDINGS: Stable ETT, left IJ central line and NGT. Stable dual lead AICD device with battery pack obscuring po rtion of the right lower lung zone. Stable small bore right-sided chest tube without significant pneu mothorax. Improved aeration of the left lower lung zone with persistent mild diffuse interstitial pro minence. Cardiac silhouette remains enlarged. Remainder of the exam is unchanged. CONCLUSION: 1. Stable tubes and lines, as above. 2. Improved aeration in the left lower lung zone. 3. Cardiomegaly with mild positive fluid balance. Electronically signed by: Gibran Mckeon MD Board Certified Radiologist 08/25/2018 5:24 AM EST
[2018-08-25 05:37] LABS: Calcium 9.6 mg/dL (8.5-10.1); Carbon Dioxide 18.1 meq/L (21.0-32.0)
--- NOTE | 2018-08-25 09:29 | P.PNCC ---
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 Patient also had productive cough and frothy sputum, sometimes blood tinged. She also complained about declining urinary output. Initial ER workup showed a normal white count, however BUN was elevated at 80 and creatinine 2.72. BNP was more than 4000. Chest x-ray showed right midlung infiltrate. Patient received Rocephin and azithromycin for community-acquired pneumonia. Patient was admitted to the [facility]. After admission due to the shortness of breath pedal edema and elevated BNP [facility] service gave the patient 20 mg IV Lasix but without much urine output. Initially patient had HR of 170's EKG appeared to be SVT and patient converted to NSR with IV Cardizem 25 mg. However patient's blood pressure started to decline. Because of this patient was given IV fluid boluses total 1.5 L had been given. Systolic blood pressure remains at 70s. Lactic acid was checked and was 8.1. With this information critical care medicine was consulted I evaluated the patient emergently. She is lethargic but wakes up easily answers questions. Still profoundly hypotensive despite 1.5 L bolus. I have ordered additional 500 mL bolus and will start Levophed at 5 mcg/min and titrate as needed. It was noted had that her INR is 5.2. Patient may benefit from inotropic agents if blood pressure improves. Antibiotics had been broadened into cefepime and azithromycin, I will also add IV Zyvox. Hold all further diuresis due to septic shock. Patient is very critical at this time 08/16: Patient sitting up in bed. Off Levophed however urine output is minimal only 75 mL urine output since admission. CVP remains elevated at 14-15. I will attempt forced diuresis with Bumex 2 mg x1 and Bumex 0.5 mg/h infusion. If no response may need hemodialysis. Follow-up chest x-ray today is pending. Chest x-ray shows persistent right sided infiltrate and effusion 08/17: Patient developed PEA cardiac arrest yesterday afternoon. No immediate inciting factors could be identified however most likely cardiac. 2D echo ordered pending. CT of the head pending. Currently patient had been weaned off all of the pressors however remains encephalopathy. Creatinine is worsening to 3.8 however urine output has improved approximately 500 ml UO in the last 12 hours. 08/18: Patient remains intubated lightly sedated. On lightening sedation patient wakes up easily following commands. Remains on Bumex infusion approximately 6 L urine output. However chest x-ray showing pulmonary edema. Remains off pressors. Will attempt CPAP trials. CT head did not show any acute finding 08/19: Diuresing well with Bumex infusion achieving negative balance however chest x-ray shows bilateral pulmonary vascular congestion and bilateral at least moderate effusions. These are secondary to decompensated heart failure. EF is less than 20 with severe MR. Creatinine down to 3. Prognosis overall is poor despite milrinone and diuresis patient is not proving adequately. We will consult palliative care to address goals of care 08/20: Patient continues to be in decompensated congestive heart failure. Despite increasing Bumex to 2 mg/h, urine output has decreased to 1.6 L in 24 hours. Chest x-ray continued to show bilateral large pleural effusions. Right- sided pigtail chest tube was placed today with 1 L output initially. Milrinone discontinued due to increasing ventricular irritability. 08/21: Remains sedated, orally intubated on mechanical ventilation. Bumex drip continues. 08/22: Off sedation since 08/18. Intubated and on PSV / CPAP. Not following commands. 08/23: Intubated and on PRVC A/C currently. Had tachycardia during CPAP trials today. She is following commands now. 08/24: Intubated and currently on CPAP / PSV w/ pressures of 10/5. When pressure support was decreased to 7/5 she became tachypneic 08/25: On mechanical ventilation. Awake, follows commands. Significant output from right-sided pigtail catheter. Objective Vital Signs / I&O: Vital Signs 08/24/18 10:00 08/24/18 11:00 08/24/18 11:53 Temperature Pulse Rate 88 84 Respiratory Rate 16 Blood Pressure 124/96 H Pulse Oximetry 100 100 99 08/24/18 12:00 08/24/18 13:00 08/24/18 13:26 Temperature Pulse Rate 86 88 Respiratory Rate 20 Blood Pressure 120/79 Pulse Oximetry 100 100 100 08/24/18 14:00 08/24/18 15:00 08/24/18 16:00 Temperature Pulse Rate 91 H 90 87 Respiratory Rate Blood Pressure Pulse Oximetry 100 96 100 08/24/18 16:01 08/24/18 17:00 08/24/18 18:00 Temperature Pulse Rate 86 86 88 Respiratory Rate Blood Pressure 100/76 Pulse Oximetry 100 100 100 08/24/18 19:00 08/24/18 20:00 08/24/18 20:01 Temperature Pulse Rate 88 92 H 92 H Respiratory Rate Blood Pressure 113/74 Pulse Oximetry 99 100 100 08/24/18 20:47 08/24/18 21:00 08/24/18 22:00 Temperature Pulse Rate 92 H 97 H Respiratory Rate 27 H Blood Pressure Pulse Oximetry 98 99 100 08/24/18 22:50 08/24/18 23:00 08/25/18 00:00 Temperature 100.7 F H Pulse Rate 99 H 99 H 96 H Respiratory Rate 27 H Blood Pressure 119/86 114/81 Pulse Oximetry 100 100 100 08/25/18 00:55 08/25/18 01:00 08/25/18 02:00 Temperature Pulse Rate 96 H 95 H Respiratory Rate 26 H Blood Pressure 95/67 L Pulse Oximetry 98 98 99 08/25/18 03:00 08/25/18 04:00 08/25/18 05:00 Temperature Pulse Rate 92 H 92 H 90 Respiratory Rate 22 Blood Pressure 98/65 L Pulse Oximetry 98 99 98 08/25/18 06:00 08/25/18 07:00 08/25/18 07:43 Temperature Pulse Rate 86 84 Respiratory Rate 17 Blood Pressure 104/62 Pulse Oximetry 99 99 99 Intake & Output 08/24/18 08/25/18 08/25/18 18:59 06:59 18:59 Intake Total 950 / 950 884 / 884 Output Total 1650 / 1650 1260 / 1260 Balance -700 / -700 -376 / -376 Weight 66.5 kg Intake: IV 950 / 950 400 / 400 Flexbumin 25% Inj 100 ML @ 60 200 / 200 200 / 200 mls/hr IV.SIG Q6HR [facility] Rx#: [id number] Azithromycin Inj 500 MG In NS 250 / 250 Inj 250 ML @ 250 mls/hr IV.SIG Q24H [facility] Rx#:[id number] Maxipime Inj 2,000 MG In NS Inj 100 / 100 100 ML @ 200 mls/hr IV.SIG Q24H [facility] Rx#:[id number] KCl 40 mEq Premix Inj 40 meq In 200 / 200 100 / 100 100 ml @ 25 mls/hr IV.SIG ONCE ONE Rx#:[id number] Flagyl 500 MG Inj 100 ML @ 100 200 / 200 100 / 100 mls/hr IV.SIG Q8H [facility] Rx#: [id number] Tube Feeding 484 / 484 Output: Urine Amount (Catheter) 800 / 800 400 / 400 Indwelling Urethral Catheter 800 / 800 400 / 400 Chest Tube Drainage 850 / 850 860 / 860 Right Mid-Axillary Chest 850 / 850 860 / 860 Other: Date of Last Bowel Movement 08/24/18 08/25/18 # Bowel Movements 6 3 Result Diagrams: 08/25/18 03:04 08/25/18 04:42 Objective Remarks: General: Ill-appearing -[place] female who is intubated, no sedation, mildly agitated, following one-step commands. HEENT: Normocephalic and atraumatic. Pupils are reactive. Mild right facial droop. Orotracheally intubated Neck: Supple, no JVD Chest: Normal inspection of the chest. Scar from AICD placement on the left upper chest. AICD now in right upper chest. Chest tube in place. Resp: Air entry diminished in the right mid chest few crackles heard. No wheezes or rhonchi. On PRVC A/C Rate: Regular rate and rhythm without murmur GI: Abdomen soft, grimaces on epigastric palpation Skin: No rashes or lesions noted, dry skin Neuro: Intubated, GCS 10T, she is following one-step commands. Assessment and Plan - Problem List (1) Severe sepsis Code(s): A41.9 - Sepsis, unspecified organism; R65.20 - Severe sepsis without septic shock Status: Acute (2) Pneumonia Code(s): J18.9 - Pneumonia, unspecified organism Status: Acute (3) Acute exacerbation of CHF (congestive heart failure) Code(s): I50.9 - Heart failure, unspecified Status: Acute (4) Acute on chronic kidney failure Code(s): N17.9 - Acute kidney failure, unspecified; N18.9 - Chronic kidney disease, unspecified Status: Acute (5) Pleural effusion Code(s): J90 - Pleural effusion, not elsewhere classified Status: Acute (6) PEA (Pulseless electrical activity) Code(s): I46.9 - Cardiac arrest, cause unspecified Status: Resolved (7) Elevated troponin Code(s): R74.8 - Abnormal levels of other serum enzymes Status: Acute (8) Nutrition, metabolism, and development symptoms Code(s): R63.8 - Other symptoms and signs concerning food and fluid intake Status: Acute - Assessment and Plan Plan: ASSESSMENT: PEA cardiac arrest Decompensated systolic heart failure Bilateral pleural effusion/pulmonary edema Severe biventricular failure Acute metabolic encephalopathy Septic shock improving Cardiogenic shock-marginally improving Acute respiratory failure Severe MR, TR Right sided pneumonia, with effusion Lactic acidemia Acute on chronic kidney disease Supratherapeutic INR Mild troponin elevation SVT-resolved Hypokalemia Cardiomyopathy ejection fraction 20% Chronic kidney disease Hypertension History of CVA in 2017 Chronic anticoagulation with Coumadin PLAN: NEURO: -Metabolic encephalopathy secondary to sepsis, no evidence of significant anoxic injury from PEA arrest -No evidence of new CVA at this time. CT 08/17 of the head negative for acute findings old right frontal stroke -Monitor neuro status closely, off sedation, she is following commands RESP: -Status post ultrasound-guided thoracentesis, studies consistent with transudative versus early exudative effusion -Status post right pigtail chest tube placement (2.4) with 1.2 L output 08/22-2018 -Intubated and placed on mechanical ventilation during CPR 08/16/18, on PRVC A/C w/ CPAP Trials -Became tachycardic during CPAP trials today -ABX and cultures: See ID below CV: -Following PEA cardiac arrest patient was on epinephrine and Levophed infusion as well as milrinone. Now off all pressor support. -2D echo previously showing EF 20-25%. Repeat 2D echo. Severely dilated right and left ventricle with severe biventricular dysfunction. LV EF less than 20%. Severe MR and TR. -BID chlorthalidone 500 mg twice daily per nephrology -quality assurance consultant following -Diltiazem drip stopped 08/23. Received 0.5 mg of digoxin 08/23. Lopressor 12.5 mg 3 times daily -Arterial line: MAP has been in between 90 and 110. GI: -IV famotidine -Tube feeds with Nepro and free water : -Monitor renal function closely. Bradley catheter. -Nephrology following: Chlorthalidone 500 twice daily, poor candidate for renal replacement therapy -Tube feeds with Nepro and free water -Rising BUN creatinine noted. Repeat BMP due to significant change in bicarb and sodium on a.m. lab ID: -Continue empiric cefepime, Flagyl and azithromycin -Blood and pleural fluid cultures negative to date. Sputum cx shows light respiratory bear at 24 hours -We will consolidate antibiotics per culture if positive HEME: -Mild stable anemia -Monitor CBC and coags daily -Status post multiple platelet and vitamin K administration -Restarted warfarin yesterday: 1 mg p.o. daily (INR goal of 2-3) ENDO: -Electrolyte replacement as needed PROPH: -Bilateral lower extremity SCDs. IV famotidine. LINES: -Utilize peripheral IVs, -Left IJ central line placed 08/15/2018 -Right femoral arterial line placed 08/16 -Intubation and left femoral central line placement 08/16/2018 -Right pigtail chest tube placed 08/20/2018, still with significant output DISPOSITION: -Prognosis is poor, but neuro status is improved from yesterday -Palliative care is following Addendum: Patient seen and examined earlier. Discussed findings, assessment and plan with Dr. Lopez. Agree with above note. Patient remains critically ill with encephalopathy, acute respiratory failure on mechanical ventilation, cardiomyopathy, CHF. Time spent on critical care excluding procedures 35 minutes (3) Acute exacerbation of CHF (congestive heart failure) Qualifiers: Heart failure type: systolic Qualified Code(s): I50.23 - Acute on chronic systolic (congestive) heart failure (4) Acute on chronic kidney failure Qualifiers: Acute renal failure type: unspecified Chronic kidney disease stage: stage 4 ( severe) Qualified Code(s): N17.9 - Acute kidney failure, unspecified; N18.4 - Chronic kidney disease, stage 4 (severe)
[2018-08-25] MEDS: Metoprolol Tartrate 25 MG Tablet PO SCH ×3 (09:43→17:22)
--- NOTE | 2018-08-25 10:29 | P.PNFP ---
Subjective Interval history: Patient seen and examined this morning. No acute events overnight. She continues to be interactive and responds to commands. She had about 860 mL chest tube output overnight, per nurse. She is on PSV of 7 and PEEP of 5, plan to continue CPAP trials per loading supervisor team. She is on FiO2 of 30%. Results - Labs Result diagrams: 08/25/18 03:04 08/25/18 11:11 Abnormal lab results 08/24/18 08/24/18 08/25/18 Range/Units 07:50 15:25 03:04 WBC 12.7 H (4.0-11.0) th/mm3 RBC 3.78 L 3.98 L (4.00-5.30) mil/mm3 Hgb 9.2 L 9.3 L (11.6-15.3) gm/dL Hct 27.1 L 29.9 L (35.0-46.0) % MCV 71.8 L 75.1 L (80.0-100.0) fL MCH 24.3 L 23.5 L (27.0-34.0) pg MCHC 31.3 L (32.0-36.0) % RDW 19.1 H 20.0 H (11.6-17.2) % Plt Count 83 L 81 L (150-450) th/mm3 Neut % (Auto) 80.5 H (16.0-70.0) % Lymph % (Auto) 6.0 L (9.0-44.0) % Spencer % (Auto) 12.8 H (0.0-8.0) % Neut # (Auto) 8.5 H (1.8-7.7) th/mm3 Lymph # (Auto) 0.6 L (1.0-4.8) th/mm3 Spencer # (Auto) 1.3 H (0.0-0.9) th/mm3 Seg Neuts % (Manual) 81 H 79 H (16-70) % Lymphocytes % (Manual) 5 L 7 L (9-44) % Monocytes % (Manual) 9 H 9 H (0-8) % Metamyelocytes % (Man) 2 H (0-1) % Abs Neuts (Manual) 8.9 H 10.7 H (1.8-7.7) th/mm3 Nucleated RBCs/100 WBC 1 H 2 H (0-0) /100 WBC Platelet Estimate Low L Low L (Normal) Platelet Morphology Enlarged H (Normal) Basophilic Stippling Faint H (None) Target Cells 1+ H 1+ H (None) Ovalocytes 1+ H 1+ H (None) Acanthocytes (Spur) 1+ H 1+ H (None) Keratocytes 1+ H 1+ H (None) PT 21.5 H (9.8-11.6) sec APTT 38.0 H (23.4-31.7) sec Sodium (136-145) meq/L Chloride (98-107) meq/L Carbon Dioxide (21.0-32.0) meq/L Anion Gap (5-15) meq/L BUN (7-18) mg/dL Creatinine (0.50-1.00) mg/dL Estimated GFR (>89) mL/min 08/25/18 08/25/18 Range/Units 03:04 04:42 WBC (4.0-11.0) th/mm3 RBC (4.00-5.30) mil/mm3 Hgb (11.6-15.3) gm/dL Hct (35.0-46.0) % MCV (80.0-100.0) fL MCH (27.0-34.0) pg MCHC (32.0-36.0) % RDW (11.6-17.2) % Plt Count (150-450) th/mm3 Neut % (Auto) (16.0-70.0) % Lymph % (Auto) (9.0-44.0) % Spencer % (Auto) (0.0-8.0) % Neut # (Auto) (1.8-7.7) th/mm3 Lymph # (Auto) (1.0-4.8) th/mm3 Spencer # (Auto) (0.0-0.9) th/mm3 Seg Neuts % (Manual) (16-70) % Lymphocytes % (Manual) (9-44) % Monocytes % (Manual) (0-8) % Metamyelocytes % (Man) (0-1) % Abs Neuts (Manual) (1.8-7.7) th/mm3 Nucleated RBCs/100 WBC (0-0) /100 WBC Platelet Estimate (Normal) Platelet Morphology (Normal) Basophilic Stippling (None) Target Cells (None) Ovalocytes (None) Acanthocytes (Spur) (None) Keratocytes (None) PT 34.1 H D (9.8-11.6) sec APTT 45.6 H (23.4-31.7) sec Sodium 157 H* (136-145) meq/L Chloride 115 H (98-107) meq/L Carbon Dioxide 18.1 L D (21.0-32.0) meq/L Anion Gap 24 H (5-15) meq/L BUN 108 H (7-18) mg/dL Creatinine 3.04 H (0.50-1.00) mg/dL Estimated GFR 19 L (>89) mL/min Short CBC 08/24/18 08/25/18 Range/Units 07:50 03:04 WBC 10.5 12.7 H (4.0-11.0) th/mm3 Hgb 9.2 L 9.3 L (11.6-15.3) gm/dL Hct 27.1 L 29.9 L (35.0-46.0) % Plt Count 83 L 81 L (150-450) th/mm3 BMP 08/25/18 04:42 Sodium 157 H* Potassium 4.0 D Chloride 115 H Carbon Dioxide 18.1 L D BUN 108 H Creatinine 3.04 H Calcium 9.6 - Imaging Impressions Chest X-Ray 08/25/18 05:00 CONCLUSION: 1. Stable tubes and lines, as above. 2. Improved aeration in the left lower lung zone. 3. Cardiomegaly with mild positive fluid balance. Physical Exam Vital signs: Vital Signs 08/24/18 11:00 08/24/18 11:53 08/24/18 12:00 Temperature Pulse Rate 84 86 Respiratory Rate 16 Blood Pressure 120/79 Pulse Oximetry 100 99 100 08/24/18 13:00 08/24/18 13:26 08/24/18 14:00 Temperature Pulse Rate 88 91 H Respiratory Rate 20 Blood Pressure Pulse Oximetry 100 100 100 08/24/18 15:00 08/24/18 16:00 08/24/18 16:01 Temperature Pulse Rate 90 87 86 Respiratory Rate Blood Pressure 100/76 Pulse Oximetry 96 100 100 08/24/18 17:00 08/24/18 18:00 08/24/18 19:00 Temperature Pulse Rate 86 88 88 Respiratory Rate Blood Pressure Pulse Oximetry 100 100 99 08/24/18 20:00 08/24/18 20:01 08/24/18 20:47 Temperature Pulse Rate 92 H 92 H Respiratory Rate 27 H Blood Pressure 113/74 Pulse Oximetry 100 100 98 08/24/18 21:00 08/24/18 22:00 08/24/18 22:50 Temperature Pulse Rate 92 H 97 H 99 H Respiratory Rate Blood Pressure 119/86 Pulse Oximetry 99 100 100 08/24/18 23:00 08/25/18 00:00 08/25/18 00:55 Temperature 100.7 F H Pulse Rate 99 H 96 H Respiratory Rate 27 H 26 H Blood Pressure 114/81 Pulse Oximetry 100 100 98 08/25/18 01:00 08/25/18 02:00 08/25/18 03:00 Temperature Pulse Rate 96 H 95 H 92 H Respiratory Rate Blood Pressure 95/67 L Pulse Oximetry 98 99 98 08/25/18 04:00 08/25/18 05:00 08/25/18 06:00 Temperature Pulse Rate 92 H 90 86 Respiratory Rate 22 Blood Pressure 98/65 L 104/62 Pulse Oximetry 99 98 99 08/25/18 07:00 08/25/18 07:43 Temperature Pulse Rate 84 Respiratory Rate 17 Blood Pressure Pulse Oximetry 99 99 Intake & Output 08/24/18 08/25/18 08/25/18 18:59 06:59 18:59 Intake Total 950 / 950 884 / 884 Output Total 1650 / 1650 1260 / 1260 Balance -700 / -700 -376 / -376 Weight 66.5 kg Intake: IV 950 / 950 400 / 400 Flexbumin 25% Inj 100 ML @ 60 200 / 200 200 / 200 mls/hr IV.SIG Q6HR [facility] Rx#: [id number] Azithromycin Inj 500 MG In NS 250 / 250 Inj 250 ML @ 250 mls/hr IV.SIG Q24H [facility] Rx#:[id number] Maxipime Inj 2,000 MG In NS Inj 100 / 100 100 ML @ 200 mls/hr IV.SIG Q24H [facility] Rx#:[id number] KCl 40 mEq Premix Inj 40 meq In 200 / 200 100 / 100 100 ml @ 25 mls/hr IV.SIG ONCE ONE Rx#:[id number] Flagyl 500 MG Inj 100 ML @ 100 200 / 200 100 / 100 mls/hr IV.SIG Q8H [facility] Rx#: [id number] Tube Feeding 484 / 484 Output: Urine Amount (Catheter) 800 / 800 400 / 400 Indwelling Urethral Catheter 800 / 800 400 / 400 Chest Tube Drainage 850 / 850 860 / 860 Right Mid-Axillary Chest 850 / 850 860 / 860 Other: Date of Last Bowel Movement 08/24/18 08/25/18 # Bowel Movements 6 3 Narrative: GENERAL: Intubated and mechanically ventilated on 30% FiO2. SKIN: warm and dry. HEAD: Normocephalic. NECK: Intubated, central line in left jugular. Icteric sclera appreciated. CARDIOVASCULAR: Regular rate and rhythm with no murmurs, rubs or gallops. RESPIRATORY: Clear to auscultation bilaterally, chest tube in place on right side. GASTROINTESTINAL: Abdomen soft, non-tender, nondistended. On tube feeds. EXTREMITIES: No lower ext edema BL, +2 PD pulses BL. NEUROLOGICAL: Responsive and following commands. - Urinary Catheter Management Indwelling Urethral Catheter Cath placed during this visit: yes Reason for continuing: Hourly intake/output Insertion date: 08/16/18 Assessment and Plan - Assessment (1) Severe sepsis Code(s): A41.9 - Sepsis, unspecified organism; R65.20 - Severe sepsis without septic shock Status: Acute Plan: Community-acquired pneumonia complicated by lower extremity edema in the setting of CHF with an EF of 20%. Patient status post thoracentesis for pleural effusion. -Intubated mechanically ventilated -Blood cultures (08/15): No growth to date -Pleural fluid Gram stain and cultures no growth to date -Remains afebrile, WBC count increase to 12.7 today from 10.5 yesterday Plan: Per [employer]: Continue - Flagyl 500 mg every 8h (08/15-) - Cefepime 2000 mg every 8 hours (08/15-) - Azithromycin 500mg (08/16-) -Bumex discontinued and patient now on Diuril 500mg BID -CPAP trials, if patient is able to protect her airway and has good lung expansion patient may be extubated Palliative care following, goals of care remain aggressive. Patient is day 10 of intubation, family will need to make decision on trach by upcoming Monday for long-term management. (2) Pneumonia Code(s): J18.9 - Pneumonia, unspecified organism Status: Acute Plan: Community acquired right-sided pneumonia with lactic acidosis. -DuoNeb every 2 hours as needed -Sputum culture: Moderate growth normal respiratory bear -Respiratory panel uncollected -Continue with antibiotics per critical care team as dictated above -Repeat CXR 08/25: Improved aeration in left lower lobe. (3) Acute exacerbation of CHF (congestive heart failure) Code(s): I50.9 - Heart failure, unspecified Status: Acute Plan: -BNP 4000 on admission -Bumex discontinued and patient now on Diuril 500mg BID -No lower extremity edema -Echo 08/17: EF 20%, fairly dilated left ventricle, severe mitral regurgitation -Urine output slightly decreased today at 0.75 ml/kg -Cardiology following and agree with current plan Per cardiology prognosis is poor. (4) Acute on chronic kidney failure Code(s): N17.9 - Acute kidney failure, unspecified; N18.9 - Chronic kidney disease, unspecified Status: Acute Plan: This patient stage III CKD with elevated creatinine above baseline on admission. Possibly due to decrease intravascular volume in the setting of sepsis. -Creatinine on admission 2.72 from baseline of 1.5. -Creatinine increased to 3.07 today -Urine output 0.75 ml/kg/hr -Nephrology following Plan: -Discontinue Bumex -Begin Chlorothiazide 500mg po BID -Trend kidney function -Trend I/O -Hemodialysis not recommended by nephrology at this time -May need Diamox for bicarbonate levels -Nephrology following, appreciate rec (5) Pleural effusion Code(s): J90 - Pleural effusion, not elsewhere classified Status: Acute Plan: Patient status post right sided thoracentesis (08/16/18) with evacuation of approximately 950 ml of slightly cloudy, yellow colored fluid was removed. -Patient underwent therapeutic right sided chest tube placement with pigtail that drained 950ml of slightly cloudy yellow fluid. -08/16: Pleural fluid showed 1,333 red blood cells with 230 nucleated cells. Fluid consistent with transudative process. Cultures show no growth to date. Plan: -Chest tube draining approx 860ml in last 24 hours -Monitor chest tube output -Continue pulmonary care as stated above -Possible extubation pending CPAP trials (6) PEA (Pulseless electrical activity) Code(s): I46.9 - Cardiac arrest, cause unspecified Status: Resolved Plan: Patient required ACLS for 9 minutes on 08/16/18 for PEA arrest -ROSC was achieved by critical care medicine -Patient was intubated and sedated and treated with pressor support See treatment for severe sepsis (7) Nutrition, metabolism, and development symptoms Code(s): R63.8 - Other symptoms and signs concerning food and fluid intake Status: Acute Plan: Fluids: Per loading supervisor Electrolytes: Replete as needed Nutrition: Tube feeds with Nepro, Suplena 1.8 @ 50mL/hr w/ Beneprotein 1-pkt TID recommended by dietitian DVT prophylaxis: Coumadin (3) Acute exacerbation of CHF (congestive heart failure) Qualifiers: Heart failure type: systolic Qualified Code(s): I50.23 - Acute on chronic systolic (congestive) heart failure (4) Acute on chronic kidney failure Qualifiers: Acute renal failure type: unspecified Chronic kidney disease stage: stage 4 ( severe) Qualified Code(s): N17.9 - Acute kidney failure, unspecified; N18.4 - Chronic kidney disease, stage 4 (severe)
[2018-08-25] MEDS: Senna/Docusate Sodium 8.6/50 MG Tablet PO SCH ×2 (11:20→20:59)
[2018-08-25] MEDS: Milrinone Inj 20 MG in Sodium Chlor 0.9% Inj 80 ML IV.CONT SCH (11:53)
[2018-08-25 12:25] LABS: Calcium 9.5 mg/dL (8.5-10.1); Carbon Dioxide 33.4 meq/L (21.0-32.0); Potassium 3.7 meq/L (3.5-5.1)
--- NOTE | 2018-08-25 12:36 | P.PNNP ---
Subjective Interval history: Patient remains critically ill potassium was replaced Physical Exam Vital signs: Vital Signs 08/24/18 13:00 08/24/18 13:26 08/24/18 14:00 Temperature Pulse Rate 88 91 H Respiratory Rate 20 Blood Pressure Pulse Oximetry 100 100 100 08/24/18 15:00 08/24/18 16:00 08/24/18 16:01 Temperature Pulse Rate 90 87 86 Respiratory Rate Blood Pressure 100/76 Pulse Oximetry 96 100 100 08/24/18 17:00 08/24/18 18:00 08/24/18 19:00 Temperature Pulse Rate 86 88 88 Respiratory Rate Blood Pressure Pulse Oximetry 100 100 99 08/24/18 20:00 08/24/18 20:01 08/24/18 20:47 Temperature Pulse Rate 92 H 92 H Respiratory Rate 27 H Blood Pressure 113/74 Pulse Oximetry 100 100 98 08/24/18 21:00 08/24/18 22:00 08/24/18 22:50 Temperature Pulse Rate 92 H 97 H 99 H Respiratory Rate Blood Pressure 119/86 Pulse Oximetry 99 100 100 08/24/18 23:00 08/25/18 00:00 08/25/18 00:55 Temperature 100.7 F H Pulse Rate 99 H 96 H Respiratory Rate 27 H 26 H Blood Pressure 114/81 Pulse Oximetry 100 100 98 08/25/18 01:00 08/25/18 02:00 08/25/18 03:00 Temperature Pulse Rate 96 H 95 H 92 H Respiratory Rate Blood Pressure 95/67 L Pulse Oximetry 98 99 98 08/25/18 04:00 08/25/18 05:00 08/25/18 06:00 Temperature Pulse Rate 92 H 90 86 Respiratory Rate 22 Blood Pressure 98/65 L 104/62 Pulse Oximetry 99 98 99 08/25/18 07:00 08/25/18 07:43 08/25/18 08:00 Temperature Pulse Rate 84 84 Respiratory Rate 17 Blood Pressure 118/72 Pulse Oximetry 99 99 99 08/25/18 09:00 08/25/18 10:00 08/25/18 11:00 Temperature 98.6 F Pulse Rate 86 85 85 Respiratory Rate Blood Pressure 119/79 Pulse Oximetry 99 100 99 08/25/18 11:16 Temperature Pulse Rate Respiratory Rate 26 H Blood Pressure Pulse Oximetry 99 Intake & Output 08/24/18 08/25/1808/25/19 18:59 06:59 18:59 Intake Total 950 / 950 884 / 884 200 / 200 Output Total 1650 / 1650 1260 / 1260 Balance -700 / -700 -376 / -376 200 / 200 Weight 66.5 kg Intake: IV 950 / 950 400 / 400 200 / 200 Flexbumin 25% Inj 100 ML @ 60 200 / 200 200 / 200 mls/hr IV.SIG Q6HR ANAHI Rx#: [id number] Azithromycin Inj 500 MG In NS 250 / 250 Inj 250 ML @ 250 mls/hr IV.SIG Q24H ANAHI Rx#:[id number] Maxipime Inj 2,000 MG In NS Inj 100 / 100 100 / 100 100 ML @ 200 mls/hr IV.SIG Q24H ANAHI Rx#:[id number] KCl 40 mEq Premix Inj 40 meq In 200 / 200 100 / 100 100 ml @ 25 mls/hr IV.SIG ONCE ONE Rx#:[id number] Flagyl 500 MG Inj 100 ML @ 100 200 / 200 100 / 100 100 / 100 mls/hr IV.SIG Q8H ANAHI Rx#: [id number] Tube Feeding 484 / 484 Output: Urine Amount (Catheter) 800 / 800 400 / 400 Indwelling Urethral Catheter 800 / 800 400 / 400 Chest Tube Drainage 850 / 850 860 / 860 Right Mid-Axillary Chest 850 / 850 860 / 860 Other: Date of Last Bowel Movement 08/24/18 08/25/18 08/25/18 # Bowel Movements 6 3 Narrative: GENERAL: Intubated and mechanically ventilated on 30% FiO2. SKIN: warm and dry. HEAD: Normocephalic. NECK: Intubated, central line in left jugular. Icteric sclera appreciated. CARDIOVASCULAR: Regular rate and rhythm with no murmurs, rubs or gallops. RESPIRATORY: Clear to auscultation bilaterally, chest tube in place on right side. GASTROINTESTINAL: Abdomen soft, non-tender, nondistended. On tube feeds. EXTREMITIES: No lower ext edema BL, NEUROLOGICAL: Responsive and following commands. - Urinary Catheter Management Indwelling Urethral Catheter Cath placed during this visit: yes Reason for continuing: Hourly intake/output Insertion date: 08/16/18 Assessment and Plan - Assessment (1) Acute kidney injury superimposed on CKD Code(s): N17.9 - Acute kidney failure, unspecified; N18.9 - Chronic kidney disease, unspecified Status: Acute Plan: Patient previously coded had PEA arrest, patient is intubated. Renal function worse today 3.07 creatinine up from yesterday 2.31. Free water with tube feeds, 250 ml Q4H. Bumex stopped and patient on Diuril. 500 mg twice a day considered decreasing the dose Monitor urine output. Monitor fluid and electrolytes. Avoid nephrotoxic agents. Poor candidate for renal replacement therapy. Palliative care is following. (2) Acute exacerbation of congestive heart failure Code(s): I50.9 - Heart failure, unspecified Status: Acute Plan: Cardiology following. She has cardiomyopathy EF 20%. (3) Elevated troponin Code(s): R74.8 - Abnormal levels of other serum enzymes Status: Acute Plan: Cardiology following. Per note review, will recheck levels once patient stable. (4) Severe sepsis Code(s): A41.9 - Sepsis, unspecified organism; R65.20 - Severe sepsis without septic shock Status: Acute Plan: Patient on Flagyl, Azithromycin, and Cefepime. (5) Pneumonia Code(s): J18.9 - Pneumonia, unspecified organism Status: Acute Plan: chest xray showed stable left basilar opacity representing either atelectasis, consolidations, and/or effusion. No pneumothorax. Patient has right chest tube in place. Last chest x-ray 08/21/18. (6) Pleural effusion Code(s): J90 - Pleural effusion, not elsewhere classified Status: Acute Plan: Patient on Diuril.
[2018-08-25] MEDS: Azithromycin Inj 500 MG in Sodium Chlor 0.9% Inj 250 ML IV.SIG SCH (14:13)
[2018-08-26 05:20] LABS: Baso % (Auto) 0.2 % (0.0-2.0); Hematocrit 27.6 % (35.0-46.0); Hemoglobin 9.2 gm/dL (11.6-15.3); Lymph # (Auto) 0.9 th/mm3 (1.0-4.8); Lymph % (Auto) 6.1 % (9.0-44.0); Mean Corpuscular HGB Conc 33.4 % (32.0-36.0); Mean Corpuscular Hemoglobin 23.9 pg (27.0-34.0); Mean Corpuscular Volume 71.7 fL (80.0-100.0); Mean Platelet Volume 9.8 fL (7.0-11.0); Mono # (Auto) 2.6 th/mm3 (0.0-0.9); Mono % (Auto) 18.2 % (0.0-8.0); Neut # (Auto) 10.7 th/mm3 (1.8-7.7); Neut % (Auto) 75.5 % (16.0-70.0); Platelet Count 72 th/mm3 (150-450); Red Blood Count 3.84 mil/mm3 (4.00-5.30); Red Cell Distribution Width 19.7 % (11.6-17.2); White Blood Count 14.2 th/mm3 (4.0-11.0)
[2018-08-26 05:44] LABS: Activated Partial Thrombo Time 43.8 sec (23.4-31.7); INR 2.8 Ratio; Prothrombin Time 27.9 sec (9.8-11.6)
[2018-08-26 05:58] LABS: Carbon Dioxide 34.2 meq/L (21.0-32.0)
[2018-08-26] MEDS ORDERED: Potassium Chlor 40 mEq Premix 40 MEQ/100 ML PIGGYBACK IV.SIG SCH (07:00)
[2018-08-26 07:29] LABS: Acanthocytes 1+; Lymphocytes 5 % (9-44); Monocytes 15 % (0-8); Tallied Nucleated RBC 1 (0-0); Target Cells 1+
[2018-08-26 07:30] LABS: Ovalocytes 1+
[2018-08-26] MEDS: Senna/Docusate Sodium 8.6/50 MG Tablet PO SCH ×2 (08:32→21:01)
[2018-08-26] MEDS: Metoprolol Tartrate 25 MG Tablet PO SCH ×3 (08:32→17:01)
--- NOTE | 2018-08-26 09:22 | P.PNFP ---
Subjective Interval history: Patient was seen at bedside this morning. There were no acute events overnight. Patient remains intubated on mechanical ventilation, but able to communicate by shaking head no and giving thumbs up. Patient signals that she is okay and not feeling any pain at this moment. Patient indicated that she had no questions at this time. <Dru Jane - 08/26/18 09:22> Results - Labs Result diagrams: 08/26/18 04:30 08/26/18 16:54 <Amelia Phoenix - 08/26/18 20:03> Abnormal lab results 08/26/18 08/26/18 08/26/18 Range/Units 04:30 04:30 04:30 WBC 14.2 H (4.0-11.0) th/mm3 RBC 3.84 L (4.00-5.30) mil/mm3 Hgb 9.2 L (11.6-15.3) gm/dL Hct 27.6 L (35.0-46.0) % MCV 71.7 L (80.0-100.0) fL MCH 23.9 L (27.0-34.0) pg RDW 19.7 H (11.6-17.2) % Plt Count 72 L (150-450) th/mm3 Neut % (Auto) 75.5 H (16.0-70.0) % Lymph % (Auto) 6.1 L (9.0-44.0) % Kerr % (Auto) 18.2 H (0.0-8.0) % Neut # (Auto) 10.7 H (1.8-7.7) th/mm3 Lymph # (Auto) 0.9 L (1.0-4.8) th/mm3 Kerr # (Auto) 2.6 H (0.0-0.9) th/mm3 Seg Neuts % (Manual) 77 H (16-70) % Lymphocytes % (Manual) 5 L (9-44) % Monocytes % (Manual) 15 H (0-8) % Abs Neuts (Manual) 11.4 H (1.8-7.7) th/mm3 Nucleated RBCs/100 WBC 1 H (0-0) /100 WBC Platelet Estimate Low L (Normal) Platelet Morphology Enlarged H (Normal) Target Cells 1+ H (None) Ovalocytes 1+ H (None) Acanthocytes (Spur) 1+ H (None) Keratocytes 1+ H (None) PT 27.9 H (9.8-11.6) sec APTT 43.8 H (23.4-31.7) sec Sodium 158 H* (136-145) meq/L Potassium 3.0 L (3.5-5.1) meq/L Chloride 115 H (98-107) meq/L Carbon Dioxide 34.2 H (21.0-32.0) meq/L BUN 132 H (7-18) mg/dL Creatinine 3.12 H (0.50-1.00) mg/dL Estimated GFR 18 L (>89) mL/min Random Glucose 168 H (74-106) mg/dL 08/26/18 Range/Units 16:54 WBC (4.0-11.0) th/mm3 RBC (4.00-5.30) mil/mm3 Hgb (11.6-15.3) gm/dL Hct (35.0-46.0) % MCV (80.0-100.0) fL MCH (27.0-34.0) pg RDW (11.6-17.2) % Plt Count (150-450) th/mm3 Neut % (Auto) (16.0-70.0) % Lymph % (Auto) (9.0-44.0) % Kerr % (Auto) (0.0-8.0) % Neut # (Auto) (1.8-7.7) th/mm3 Lymph # (Auto) (1.0-4.8) th/mm3 Kerr # (Auto) (0.0-0.9) th/mm3 Seg Neuts % (Manual) (16-70) % Lymphocytes % (Manual) (9-44) % Monocytes % (Manual) (0-8) % Abs Neuts (Manual) (1.8-7.7) th/mm3 Nucleated RBCs/100 WBC (0-0) /100 WBC Platelet Estimate (Normal) Platelet Morphology (Normal) Target Cells (None) Ovalocytes (None) Acanthocytes (Spur) (None) Keratocytes (None) PT (9.8-11.6) sec APTT (23.4-31.7) sec Sodium (136-145) meq/L Potassium 2.7 L* (3.5-5.1) meq/L Chloride (98-107) meq/L Carbon Dioxide (21.0-32.0) meq/L BUN (7-18) mg/dL Creatinine (0.50-1.00) mg/dL Estimated GFR (>89) mL/min Random Glucose (74-106) mg/dL Short CBC 08/26/18 Range/Units 04:30 WBC 14.2 H (4.0-11.0) th/mm3 Hgb 9.2 L (11.6-15.3) gm/dL Hct 27.6 L (35.0-46.0) % Plt Count 72 L (150-450) th/mm3 BMP 08/26/18 08/26/18 04:30 16:54 Sodium 158 H* Potassium 3.0 L 2.7 L* Chloride 115 H Carbon Dioxide 34.2 H BUN 132 H Creatinine 3.12 H Calcium 9.0 <Amelia Phoenix - 08/26/18 20:03> Abnormal lab results 08/25/18 08/26/18 08/26/18 Range/Units 11:11 04:30 04:30 WBC 14.2 H (4.0-11.0) th/mm3 RBC 3.84 L (4.00-5.30) mil/mm3 Hgb 9.2 L (11.6-15.3) gm/dL Hct 27.6 L (35.0-46.0) % MCV 71.7 L (80.0-100.0) fL MCH 23.9 L (27.0-34.0) pg RDW 19.7 H (11.6-17.2) % Plt Count 72 L (150-450) th/mm3 Neut % (Auto) 75.5 H (16.0-70.0) % Lymph % (Auto) 6.1 L (9.0-44.0) % Kerr % (Auto) 18.2 H (0.0-8.0) % Neut # (Auto) 10.7 H (1.8-7.7) th/mm3 Lymph # (Auto) 0.9 L (1.0-4.8) th/mm3 Kerr # (Auto) 2.6 H (0.0-0.9) th/mm3 Seg Neuts % (Manual) 77 H (16-70) % Lymphocytes % (Manual) 5 L (9-44) % Monocytes % (Manual) 15 H (0-8) % Abs Neuts (Manual) 11.4 H (1.8-7.7) th/mm3 Nucleated RBCs/100 WBC 1 H (0-0) /100 WBC Platelet Estimate Low L (Normal) Platelet Morphology Enlarged H (Normal) Target Cells 1+ H (None) Ovalocytes 1+ H (None) Acanthocytes (Spur) 1+ H (None) Keratocytes 1+ H (None) PT 27.9 H (9.8-11.6) sec APTT 43.8 H (23.4-31.7) sec Sodium 155 H (136-145) meq/L Potassium (3.5-5.1) meq/L Chloride 114 H (98-107) meq/L Carbon Dioxide 33.4 H D (21.0-32.0) meq/L BUN 113 H (7-18) mg/dL Creatinine 3.07 H (0.50-1.00) mg/dL Estimated GFR 18 L (>89) mL/min Random Glucose 178 H (74-106) mg/dL 08/26/18 Range/Units 04:30 WBC (4.0-11.0) th/mm3 RBC (4.00-5.30) mil/mm3 Hgb (11.6-15.3) gm/dL Hct (35.0-46.0) % MCV (80.0-100.0) fL MCH (27.0-34.0) pg RDW (11.6-17.2) % Plt Count (150-450) th/mm3 Neut % (Auto) (16.0-70.0) % Lymph % (Auto) (9.0-44.0) % Kerr % (Auto) (0.0-8.0) % Neut # (Auto) (1.8-7.7) th/mm3 Lymph # (Auto) (1.0-4.8) th/mm3 Kerr # (Auto) (0.0-0.9) th/mm3 Seg Neuts % (Manual) (16-70) % Lymphocytes % (Manual) (9-44) % Monocytes % (Manual) (0-8) % Abs Neuts (Manual) (1.8-7.7) th/mm3 Nucleated RBCs/100 WBC (0-0) /100 WBC Platelet Estimate (Normal) Platelet Morphology (Normal) Target Cells (None) Ovalocytes (None) Acanthocytes (Spur) (None) Keratocytes (None) PT (9.8-11.6) sec APTT (23.4-31.7) sec Sodium 158 H* (136-145) meq/L Potassium 3.0 L (3.5-5.1) meq/L Chloride 115 H (98-107) meq/L Carbon Dioxide 34.2 H (21.0-32.0) meq/L BUN 132 H (7-18) mg/dL Creatinine 3.12 H (0.50-1.00) mg/dL Estimated GFR 18 L (>89) mL/min Random Glucose 168 H (74-106) mg/dL Short CBC 08/26/18 Range/Units 04:30 WBC 14.2 H (4.0-11.0) th/mm3 Hgb 9.2 L (11.6-15.3) gm/dL Hct 27.6 L (35.0-46.0) % Plt Count 72 L (150-450) th/mm3 BMP 08/25/18 08/26/18 11:11 04:30 Sodium 155 H 158 H* Potassium 3.7 3.0 L Chloride 114 H 115 H Carbon Dioxide 33.4 H D 34.2 H BUN 113 H 132 H Creatinine 3.07 H 3.12 H Calcium 9.5 9.0 <Dru Jane O - 08/26/18 09:22> Physical Exam Vital signs: Vital Signs 08/25/18 21:00 08/25/18 21:23 08/25/18 22:00 Temperature Pulse Rate 78 75 Respiratory Rate 15 Blood Pressure 115/79 Pulse Oximetry 100 100 100 08/25/18 23:00 08/26/18 00:00 08/26/18 01:00 Temperature Pulse Rate 79 81 77 Respiratory Rate Blood Pressure 116/82 Pulse Oximetry 100 99 100 08/26/18 01:15 08/26/18 02:00 08/26/18 02:01 Temperature Pulse Rate 80 79 Respiratory Rate 18 Blood Pressure 107/86 Pulse Oximetry 100 97 99 08/26/18 03:00 08/26/18 04:00 08/26/18 04:01 Temperature Pulse Rate 78 79 76 Respiratory Rate 14 Blood Pressure 117/83 Pulse Oximetry 100 100 98 08/26/18 05:00 08/26/18 06:00 08/26/18 07:00 Temperature Pulse Rate 79 72 78 Respiratory Rate Blood Pressure Pulse Oximetry 100 99 100 08/26/18 07:56 08/26/18 08:00 08/26/18 08:27 Temperature 97.7 F Pulse Rate 81 85 Respiratory Rate 26 H Blood Pressure 118/89 Pulse Oximetry 100 100 100 08/26/18 09:00 08/26/18 10:00 08/26/18 11:00 Temperature Pulse Rate 84 80 79 Respiratory Rate 18 Blood Pressure 109/89 Pulse Oximetry 100 100 100 08/26/18 12:00 08/26/18 12:01 08/26/18 13:00 Temperature 97.3 F L Pulse Rate 78 81 78 Respiratory Rate Blood Pressure 126/86 Pulse Oximetry 100 95 100 08/26/18 14:00 08/26/18 15:00 08/26/18 15:46 Temperature Pulse Rate 72 70 Respiratory Rate 17 Blood Pressure 108/86 Pulse Oximetry 100 99 100 08/26/18 16:00 08/26/18 16:01 08/26/18 17:00 Temperature 97.1 F L Pulse Rate 67 66 67 Respiratory Rate Blood Pressure 117/81 Pulse Oximetry 98 100 99 08/26/18 18:00 08/26/18 19:00 08/26/18 19:17 Temperature Pulse Rate 71 72 Respiratory Rate 16 Blood Pressure 118/80 Pulse Oximetry 99 98 100 Intake & Output 08/26/18 08/26/18 08/27/18 06:59 18:59 06:59 Intake Total 2205 / 2205 1884 / 1884 200 / 200 Output Total 1625 / 1625 1310 / 1310 Balance 580 / 580 574 / 574 200 / 200 Weight 68 kg Intake: IV 1700 / 1700 450 / 450 200 / 200 Flexbumin 25% Inj 100 ML @ 60 100 / 100 mls/hr IV.SIG Q6HR ANAHI Rx#: [id number] Azithromycin Inj 500 MG In NS 250 / 250 Inj 250 ML @ 250 mls/hr IV.SIG Q24H ANAHI Rx#:[id number] Maxipime Inj 2,000 MG In NS Inj 100 / 100 100 ML @ 200 mls/hr IV.SIG Q24H ANAHI Rx#:[id number] KCl 40 mEq Premix Inj 40 meq In 100 / 100 100 ml @ 25 mls/hr IV.SIG NOW ANAHI Rx#:[id number] Flagyl 500 MG Inj 100 ML @ 100 100 / 100 100 / 100 100 / 100 mls/hr IV.SIG Q8H ANAHI Rx#: [id number] Tube Feeding 505 / 505 234 / 234 Water Bolus Amount 600 / 600 Free Water Amount 600 / 600 Output: Stool 300 / 300 Urine Amount (Catheter) 900 / 900 1050 / 1050 Indwelling Urethral Catheter 900 / 900 1050 / 1050 Chest Tube Drainage 425 / 425 260 / 260 Right Mid-Axillary Chest 425 / 425 260 / 260 Other: Date of Last Bowel Movement 08/25/18 08/26/18 # Incontinent Bowel Movements 2 <Amelia Phoenix - 08/26/18 20:03> Vital Signs 08/25/18 10:00 08/25/18 11:00 08/25/18 11:16 Temperature Pulse Rate 85 85 Respiratory Rate 26 H Blood Pressure 119/79 Pulse Oximetry 100 99 99 08/25/18 12:00 08/25/18 12:01 08/25/18 13:00 Temperature 98.1 F Pulse Rate 86 86 89 Respiratory Rate Blood Pressure 111/76 Pulse Oximetry 99 100 100 08/25/18 14:00 08/25/18 15:00 08/25/18 15:23 Temperature Pulse Rate 90 88 Respiratory Rate 23 Blood Pressure 118/89 Pulse Oximetry 100 100 100 08/25/18 16:00 08/25/18 17:00 08/25/18 18:00 Temperature 97.9 F Pulse Rate 81 79 79 Respiratory Rate Blood Pressure 106/72 109/80 Pulse Oximetry 100 99 98 08/25/18 19:00 08/25/18 20:00 08/25/18 21:00 Temperature 98.8 F Pulse Rate 78 79 78 Respiratory Rate Blood Pressure 113/85 Pulse Oximetry 100 98 100 08/25/18 21:23 08/25/18 22:00 08/25/18 23:00 Temperature Pulse Rate 75 79 Respiratory Rate 15 Blood Pressure 115/79 Pulse Oximetry 100 100 100 08/26/18 00:00 08/26/18 01:00 08/26/18 01:15 Temperature Pulse Rate 81 77 Respiratory Rate 18 Blood Pressure 116/82 Pulse Oximetry 99 100 100 08/26/18 02:00 08/26/18 02:01 08/26/18 03:00 Temperature Pulse Rate 80 79 78 Respiratory Rate Blood Pressure 107/86 Pulse Oximetry 97 99 100 08/26/18 04:00 08/26/18 04:01 08/26/18 05:00 Temperature Pulse Rate 79 76 79 Respiratory Rate 14 Blood Pressure 117/83 Pulse Oximetry 100 98 100 08/26/18 06:00 08/26/18 07:00 08/26/18 07:56 Temperature Pulse Rate 72 78 Respiratory Rate 26 H Blood Pressure Pulse Oximetry 99 100 100 08/26/18 08:00 08/26/18 08:27 08/26/18 09:00 Temperature 97.7 F Pulse Rate 81 85 84 Respiratory Rate Blood Pressure 118/89 Pulse Oximetry 100 100 100 Intake & Output 08/25/18 08/26/18 08/26/18 18:59 06:59 18:59 Intake Total 951 / 951 2205 / 2205 200 / 200 Output Total 1380 / 1380 1625 / 1625 Balance -429 / -429 580 / 580 200 / 200 Weight 68 kg Intake: IV 550 / 550 1700 / 1700 Flexbumin 25% Inj 100 ML @ 60 100 / 100 mls/hr IV.SIG Q6HR ANAHI Rx#: [id number] Azithromycin Inj 500 MG In NS 250 / 250 Inj 250 ML @ 250 mls/hr IV.SIG Q24H ANAHI Rx#:[id number] Maxipime Inj 2,000 MG In NS Inj 100 / 100 100 ML @ 200 mls/hr IV.SIG Q24H ANAHI Rx#:[id number] Flagyl 500 MG Inj 100 ML @ 100 200 / 200 100 / 100 mls/hr IV.SIG Q8H ANAHI Rx#: [id number] Tube Feeding 401 / 401 505 / 505 Free Water Amount 200 / 200 Output: Stool 200 / 200 300 / 300 Urine Amount (Catheter) 600 / 600 900 / 900 Indwelling Urethral Catheter 600 / 600 900 / 900 Chest Tube Drainage 580 / 580 425 / 425 Right Mid-Axillary Chest 580 / 580 425 / 425 Other: Date of Last Bowel Movement 08/25/18 08/25/18 <Dru Jane - 08/26/18 09:22> Narrative: GENERAL: Intubated and mechanically ventilated on 30% FiO2. SKIN: warm and dry. HEAD: Normocephalic. NECK: Intubated, central line in left jugular. Icteric sclera appreciated. CARDIOVASCULAR: Regular rate and rhythm with no murmurs, rubs or gallops. RESPIRATORY: Clear to auscultation bilaterally, chest tube in place on right side. GASTROINTESTINAL: Abdomen soft, non-tender, nondistended. On tube feeds. Rectal tube in place/ EXTREMITIES: No lower ext edema BL, +2 PD pulses BL. NEUROLOGICAL: Responsive and following commands. <Dru Jane - 08/26/18 11:49> - Urinary Catheter Management Indwelling Urethral Catheter Cath placed during this visit: no <Amelia Phoenix - 08/26/18 20:03> yes <Dru Jane - 08/26/18 11:49> Reason for continuing: Hourly intake/output <Dru Jane 08/26/18 09:22 > Insertion date: 08/16/18 <Dru Jane 08/26/18 09:22> Assessment and Plan - Assessment (1) Severe sepsis Code(s): A41.9 - Sepsis, unspecified organism; R65.20 - Severe sepsis without septic shock Status: Acute (2) Pneumonia Code(s): J18.9 - Pneumonia, unspecified organism Status: Acute (3) Acute exacerbation of CHF (congestive heart failure) Code(s): I50.9 - Heart failure, unspecified Status: Acute (4) Acute on chronic kidney failure Code(s): N17.9 - Acute kidney failure, unspecified; N18.9 - Chronic kidney disease, unspecified Status: Acute (5) Pleural effusion Code(s): J90 - Pleural effusion, not elsewhere classified Status: Acute (6) PEA (Pulseless electrical activity) Code(s): I46.9 - Cardiac arrest, cause unspecified Status: Resolved (7) Hypertension Code(s): I10 - Essential (primary) hypertension Status: Acute (8) Supratherapeutic INR Code(s): R79.1 - Abnormal coagulation profile Status: Acute (9) Nutrition, metabolism, and development symptoms Code(s): R63.8 - Other symptoms and signs concerning food and fluid intake Status: Acute <Amelia Phoenix - 08/26/18 20:03> (1) Severe sepsis Code(s): A41.9 - Sepsis, unspecified organism; R65.20 - Severe sepsis without septic shock Status: Acute Plan: Community-acquired pneumonia complicated by lower extremity edema in the setting of CHF with an EF of 20%. Patient status post thoracentesis for pleural effusion. -Intubated mechanically ventilated -Blood cultures (08/15): No growth to date -Pleural fluid Gram stain and cultures no growth to date -WBC count increased to 14.2 today. - Plan: Per Metallographic Technician: Continue - Flagyl 500 mg every 8h (08/15-) - Cefepime 2000 mg every 8 hours (08/15-) - Azithromycin 500mg (08/16-) -Continue Diuril 500mg BID -CPAP trials today, did well yesterday but ultimately failed. Will try again today, hopefully for extubation. -1L of NS over the next 24 hours, monitor closely due to EF Palliative care following, goals of care remain aggressive. Patient is day 11 of intubation, family will need to make decision on trach by upcoming Monday for long-term management. (2) Pneumonia Code(s): J18.9 - Pneumonia, unspecified organism Status: Acute Plan: Community acquired right-sided pneumonia with lactic acidosis. -DuoNeb every 2 hours as needed -Sputum culture: Moderate growth normal respiratory bear -Respiratory panel uncollected -Continue with antibiotics per critical care team as dictated above -Repeat CXR 08/25: Improved aeration in left lower lobe. (3) Acute exacerbation of CHF (congestive heart failure) Code(s): I50.9 - Heart failure, unspecified Status: Acute Plan: -BNP 4000 on admission -Bumex discontinued and patient now on Diuril 500mg BID -No lower extremity edema -Echo 08/17: EF 20%, fairly dilated left ventricle, severe mitral regurgitation -Urine output slightly decreased today at 0.75 ml/kg -Cardiology following and agree with current plan Per cardiology prognosis is poor. (4) Acute on chronic kidney failure Code(s): N17.9 - Acute kidney failure, unspecified; N18.9 - Chronic kidney disease, unspecified Status: Acute Plan: This patient stage III CKD with elevated creatinine above baseline on admission. Possibly due to decrease intravascular volume in the setting of sepsis. -Creatinine on admission 2.72 from baseline of 1.5. -Creatinine increased to 3.12 today -Urine output 0.92 ml/kg/hr -Nephrology following Plan: -Chlorothiazide 500mg po decreased to once daily -Trend kidney function -Trend I/O -Will require Hemodialysis upon extubation, possible peritoneal -May need Diamox for bicarbonate levels -Nephrology following, appreciate rec (5) Pleural effusion Code(s): J90 - Pleural effusion, not elsewhere classified Status: Acute Plan: Patient status post right sided thoracentesis (08/16/18) with evacuation of approximately 950 ml of slightly cloudy, yellow colored fluid was removed. -Patient underwent therapeutic right sided chest tube placement with pigtail that drained 950ml of slightly cloudy yellow fluid. -08/16: Pleural fluid showed 1,333 red blood cells with 230 nucleated cells. Fluid consistent with transudative process. Cultures show no growth to date. Plan: -Chest tube draining approx 425ml in last 24 hours -Monitor chest tube output -Continue pulmonary care as stated above -Possible extubation pending CPAP trials today (6) PEA (Pulseless electrical activity) Code(s): I46.9 - Cardiac arrest, cause unspecified Status: Resolved Plan: Patient required ACLS for 9 minutes on 08/16/18 for PEA arrest -ROSC was achieved by critical care medicine -Patient was intubated and sedated and treated with pressor support See treatment for severe sepsis (7) Hypertension Code(s): I10 - Essential (primary) hypertension Status: Acute Plan: History of hypertension. PEA required intubation and mech vent. Patient initially required pressors now off. -Lopressor 12.5 TID (8) Supratherapeutic INR Code(s): R79.1 - Abnormal coagulation profile Status: Acute Plan: History of Afib on warfarin but supratherapeutic on admission. INR now 2.5. -Wafarin 1mg daily (9) Nutrition, metabolism, and development symptoms Code(s): R63.8 - Other symptoms and signs concerning food and fluid intake Status: Acute Plan: Fluids: Per automobile repair service estimator Electrolytes: Replete as needed Nutrition: Tube feeds with Nepro, Suplena 1.8 @ 50mL/hr w/ Beneprotein 1-pkt TID recommended by dietitian DVT prophylaxis: Coumadin <Dru Jane - 08/26/18 11:36> - Attending Attestation Patient seen and examined this morning, discussed with Dr Darling. I agree with assessment and management as documented and discussed with me. Pt remains intubated. She is awake and able to communicate with hand gestures. , brother, and daughter in law at bedside. All questions answered to the best of my abilities. <Amelia Phoenix - 08/26/18 20:03> <Dru Jane - Last Filed: 08/26/18 11:36> (3) Acute exacerbation of CHF (congestive heart failure) Qualifiers: Heart failure type: systolic Qualified Code(s): I50.23 - Acute on chronic systolic (congestive) heart failure (4) Acute on chronic kidney failure Qualifiers: Acute renal failure type: unspecified Chronic kidney disease stage: stage 4 ( severe) Qualified Code(s): N17.9 - Acute kidney failure, unspecified; N18.4 - Chronic kidney disease, stage 4 (severe) <Amelia Phoenix - Last Filed: 08/26/18 20:03> (3) Acute exacerbation of CHF (congestive heart failure) Qualifiers: Heart failure type: systolic Qualified Code(s): I50.23 - Acute on chronic systolic (congestive) heart failure (4) Acute on chronic kidney failure Qualifiers: Acute renal failure type: unspecified Chronic kidney disease stage: stage 4 ( severe) Qualified Code(s): N17.9 - Acute kidney failure, unspecified; N18.4 - Chronic kidney disease, stage 4 (severe) <Dru Jane - Last Filed: 08/26/18 11:36> (3) Acute exacerbation of CHF (congestive heart failure) Qualifiers: Heart failure type: systolic Qualified Code(s): I50.23 - Acute on chronic systolic (congestive) heart failure (4) Acute on chronic kidney failure Qualifiers: Acute renal failure type: unspecified Chronic kidney disease stage: stage 4 ( severe) Qualified Code(s): N17.9 - Acute kidney failure, unspecified; N18.4 - Chronic kidney disease, stage 4 (severe) <Amelia Phoenix - Last Filed: 08/26/18 20:03> (3) Acute exacerbation of CHF (congestive heart failure) Qualifiers: Heart failure type: systolic Qualified Code(s): I50.23 - Acute on chronic systolic (congestive) heart failure (4) Acute on chronic kidney failure Qualifiers: Acute renal failure type: unspecified Chronic kidney disease stage: stage 4 ( severe) Qualified Code(s): N17.9 - Acute kidney failure, unspecified; N18.4 - Chronic kidney disease, stage 4 (severe)
--- NOTE | 2018-08-26 09:42 | P.PNCC ---
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 Patient also had productive cough and frothy sputum, sometimes blood tinged. She also complained about declining urinary output. Initial ER workup showed a normal white count, however BUN was elevated at 80 and creatinine 2.72. BNP was more than 4000. Chest x-ray showed right midlung infiltrate. Patient received Rocephin and azithromycin for community-acquired pneumonia. Patient was admitted to the [facility]. After admission due to the shortness of breath pedal edema and elevated BNP [facility] gave the patient 20 mg IV Lasix but without much urine output. Initially patient had HR of 170's EKG appeared to be SVT and patient converted to NSR with IV Cardizem 25 mg. However patient's blood pressure started to decline. Because of this patient was given IV fluid boluses total 1.5 L had been given. Systolic blood pressure remains at 70s. Lactic acid was checked and was 8.1. With this information critical care medicine was consulted I evaluated the patient emergently. She is lethargic but wakes up easily answers questions. Still profoundly hypotensive despite 1.5 L bolus. I have ordered additional 500 mL bolus and will start Levophed at 5 mcg/min and titrate as needed. It was noted had that her INR is 5.2. Patient may benefit from inotropic agents if blood pressure improves. Antibiotics had been broadened into cefepime and azithromycin, I will also add IV Zyvox. Hold all further diuresis due to septic shock. Patient is very critical at this time 08/16: Patient sitting up in bed. Off Levophed however urine output is minimal only 75 mL urine output since admission. CVP remains elevated at 14-15. I will attempt forced diuresis with Bumex 2 mg x1 and Bumex 0.5 mg/h infusion. If no response may need hemodialysis. Follow-up chest x-ray today is pending. Chest x-ray shows persistent right sided infiltrate and effusion 08/17: Patient developed PEA cardiac arrest yesterday afternoon. No immediate inciting factors could be identified however most likely cardiac. 2D echo ordered pending. CT of the head pending. Currently patient had been weaned off all of the pressors however remains encephalopathy. Creatinine is worsening to 3.8 however urine output has improved approximately 500 ml UO in the last 12 hours. 08/18: Patient remains intubated lightly sedated. On lightening sedation patient wakes up easily following commands. Remains on Bumex infusion approximately 6 L urine output. However chest x-ray showing pulmonary edema. Remains off pressors. Will attempt CPAP trials. CT head did not show any acute finding 08/19: Diuresing well with Bumex infusion achieving negative balance however chest x-ray shows bilateral pulmonary vascular congestion and bilateral at least moderate effusions. These are secondary to decompensated heart failure. EF is less than 20 with severe MR. Creatinine down to 3. Prognosis overall is poor despite milrinone and diuresis patient is not proving adequately. We will consult palliative care to address goals of care 08/20: Patient continues to be in decompensated congestive heart failure. Despite increasing Bumex to 2 mg/h, urine output has decreased to 1.6 L in 24 hours. Chest x-ray continued to show bilateral large pleural effusions. Right- sided pigtail chest tube was placed today with 1 L output initially. Milrinone discontinued due to increasing ventricular irritability. 08/21: Remains sedated, orally intubated on mechanical ventilation. Bumex drip continues. 08/22: Off sedation since 08/18. Intubated and on PSV / CPAP. Not following commands. 08/23: Intubated and on PRVC A/C currently. Had tachycardia during CPAP trials today. She is following commands now. 08/24: Intubated and currently on CPAP / PSV w/ pressures of 10/5. When pressure support was decreased to 7/5 she became tachypneic 08/25: On mechanical ventilation. Awake, follows commands. Significant output from right-sided pigtail catheter. 08/26: Remains on mechanical ventilation. Remains off sedation. Awake, follows commands. Drained about 1 L from right pigtail catheter. Added free water for hypernatremia. BUN remains elevated. Objective Vital Signs / I&O: Vital Signs 08/25/18 10:00 08/25/18 11:00 08/25/18 11:16 Temperature Pulse Rate 85 85 Respiratory Rate 26 H Blood Pressure 119/79 Pulse Oximetry 100 99 99 08/25/18 12:00 08/25/18 12:01 08/25/18 13:00 Temperature 98.1 F Pulse Rate 86 86 89 Respiratory Rate Blood Pressure 111/76 Pulse Oximetry 99 100 100 08/25/18 14:00 08/25/18 15:00 08/25/18 15:23 Temperature Pulse Rate 90 88 Respiratory Rate 23 Blood Pressure 118/89 Pulse Oximetry 100 100 100 08/25/18 16:00 08/25/18 17:00 08/25/18 18:00 Temperature 97.9 F Pulse Rate 81 79 79 Respiratory Rate Blood Pressure 106/72 109/80 Pulse Oximetry 100 99 98 08/25/18 19:00 08/25/18 20:00 08/25/18 21:00 Temperature 98.8 F Pulse Rate 78 79 78 Respiratory Rate Blood Pressure 113/85 Pulse Oximetry 100 98 100 08/25/18 21:23 08/25/18 22:00 08/25/18 23:00 Temperature Pulse Rate 75 79 Respiratory Rate 15 Blood Pressure 115/79 Pulse Oximetry 100 100 100 08/26/18 00:00 08/26/18 01:00 08/26/18 01:15 Temperature Pulse Rate 81 77 Respiratory Rate 18 Blood Pressure 116/82 Pulse Oximetry 99 100 100 08/26/18 02:00 08/26/18 02:01 08/26/18 03:00 Temperature Pulse Rate 80 79 78 Respiratory Rate Blood Pressure 107/86 Pulse Oximetry 97 99 100 08/26/18 04:00 08/26/18 04:01 08/26/18 05:00 Temperature Pulse Rate 79 76 79 Respiratory Rate 14 Blood Pressure 117/83 Pulse Oximetry 100 98 100 08/26/18 06:00 08/26/18 07:00 08/26/18 07:56 Temperature Pulse Rate 72 78 Respiratory Rate 26 H Blood Pressure Pulse Oximetry 99 100 100 08/26/18 08:00 08/26/18 08:27 08/26/18 09:00 Temperature 97.7 F Pulse Rate 81 85 84 Respiratory Rate Blood Pressure 118/89 Pulse Oximetry 100 100 100 Intake & Output 08/25/18 08/26/18 08/26/18 18:59 06:59 18:59 Intake Total 951 / 951 2205 / 2205 200 / 200 Output Total 1380 / 1380 1625 / 1625 Balance -429 / -429 580 / 580 200 / 200 Weight 68 kg Intake: IV 550 / 550 1700 / 1700 Flexbumin 25% Inj 100 ML @ 60 100 / 100 mls/hr IV.SIG Q6HR ANAHI Rx#: [id number] Azithromycin Inj 500 MG In NS 250 / 250 Inj 250 ML @ 250 mls/hr IV.SIG Q24H ANAHI Rx#:[id number] Maxipime Inj 2,000 MG In NS Inj 100 / 100 100 ML @ 200 mls/hr IV.SIG Q24H ANAHI Rx#:[id number] Flagyl 500 MG Inj 100 ML @ 100 200 / 200 100 / 100 mls/hr IV.SIG Q8H ANAHI Rx#: [id number] Tube Feeding 401 / 401 505 / 505 Free Water Amount 200 / 200 Output: Stool 200 / 200 300 / 300 Urine Amount (Catheter) 600 / 600 900 / 900 Indwelling Urethral Catheter 600 / 600 900 / 900 Chest Tube Drainage 580 / 580 425 / 425 Right Mid-Axillary Chest 580 / 580 425 / 425 Other: Date of Last Bowel Movement 08/25/18 08/25/18 08/25/18 Result Diagrams: 08/26/18 04:30 08/26/18 04:30 Objective Remarks: General: Ill-appearing -[place] female who is intubated, no sedation, mildly agitated, following one-step commands. HEENT: Normocephalic and atraumatic. Pupils are reactive. Mild right facial droop. Orotracheally intubated Neck: Supple, no JVD Chest: Normal inspection of the chest. Scar from AICD placement on the left upper chest. AICD now in right upper chest. Chest tube in place. Resp: Air entry diminished in the right mid chest few crackles heard. No wheezes or rhonchi. On PRVC A/C Rate: Regular rate and rhythm without murmur GI: Abdomen soft, grimaces on epigastric palpation Skin: No rashes or lesions noted, dry skin Neuro: Intubated, GCS 10T, she is following one-step commands. Assessment and Plan - Problem List (1) Severe sepsis Code(s): A41.9 - Sepsis, unspecified organism; R65.20 - Severe sepsis without septic shock Status: Acute (2) Pneumonia Code(s): J18.9 - Pneumonia, unspecified organism Status: Acute (3) Acute exacerbation of CHF (congestive heart failure) Code(s): I50.9 - Heart failure, unspecified Status: Acute (4) Acute on chronic kidney failure Code(s): N17.9 - Acute kidney failure, unspecified; N18.9 - Chronic kidney disease, unspecified Status: Acute (5) Pleural effusion Code(s): J90 - Pleural effusion, not elsewhere classified Status: Acute (6) PEA (Pulseless electrical activity) Code(s): I46.9 - Cardiac arrest, cause unspecified Status: Resolved (7) Nutrition, metabolism, and development symptoms Code(s): R63.8 - Other symptoms and signs concerning food and fluid intake Status: Acute - Assessment and Plan Plan: ASSESSMENT: PEA cardiac arrest Decompensated systolic heart failure Bilateral pleural effusion/pulmonary edema Severe biventricular failure Acute metabolic encephalopathy Septic shock improving Cardiogenic shock-marginally improving Acute respiratory failure Severe MR, TR Right sided pneumonia, with effusion Lactic acidemia Acute on chronic kidney disease Supratherapeutic INR Mild troponin elevation SVT-resolved Hypokalemia Cardiomyopathy ejection fraction 20% Chronic kidney disease Hypertension History of CVA in 2017 Chronic anticoagulation with Coumadin PLAN: NEURO: -Metabolic encephalopathy secondary to sepsis, no evidence of significant anoxic injury from PEA arrest -No evidence of new CVA at this time. CT 08/17 of the head negative for acute findings old right frontal stroke -Monitor neuro status closely, off sedation, she is following commands RESP: -Status post ultrasound-guided thoracentesis, studies consistent with transudative versus early exudative effusion -Status post right pigtail chest tube placement (2.4) with 1.2 L output 08/22-2018 -Intubated and placed on mechanical ventilation during CPR 08/16/18, on PRVC A/C w/ CPAP Trials -Daily CPAP trials CV: -Following PEA cardiac arrest patient was on epinephrine and Levophed infusion as well as milrinone. Now off all pressor support. -2D echo previously showing EF 20-25%. Repeat 2D echo. Severely dilated right and left ventricle with severe biventricular dysfunction. LV EF less than 20%. Severe MR and TR. -BID chlorthalidone 500 mg twice daily per nephrology -senior analytic consultant following -Diltiazem drip stopped 08/23. Received 0.5 mg of digoxin 08/23. Lopressor 12.5 mg 3 times daily GI: -IV famotidine -Tube feeds with Nepro and free water : -Monitor renal function closely. Bradley catheter. -Nephrology following: Chlorthalidone 500 twice daily, poor candidate for renal replacement therapy -Tube feeds with Nepro and free water -Rising BUN creatinine noted. ID: -Continue empiric cefepime, Flagyl and azithromycin -Blood and pleural fluid cultures negative to date. Sputum cx shows light respiratory bear at 24 hours -We will consolidate antibiotics per culture if positive HEME: -Mild stable anemia -Monitor CBC and coags daily -Status post multiple platelet and vitamin K administration -Restarted warfarin: 1 mg p.o. daily (INR goal of 2-3) ENDO: -Electrolyte replacement as needed PROPH: -Bilateral lower extremity SCDs. IV famotidine. LINES: -Utilize peripheral IVs, -Left IJ central line placed 08/15/2018 -Right femoral arterial line placed 08/16 -Intubation and left femoral central line placement 08/16/2018 -Right pigtail chest tube placed 08/20/2018, still with significant output DISPOSITION: -Prognosis is poor, but neuro status is gradually improving -Palliative care is following Patient remains critically ill with encephalopathy, acute respiratory failure on mechanical ventilation, cardiomyopathy, CHF. Time spent on critical care excluding procedures 35 minutes (3) Acute exacerbation of CHF (congestive heart failure) Qualifiers: Heart failure type: systolic Qualified Code(s): I50.23 - Acute on chronic systolic (congestive) heart failure (4) Acute on chronic kidney failure Qualifiers: Acute renal failure type: unspecified Chronic kidney disease stage: stage 4 ( severe) Qualified Code(s): N17.9 - Acute kidney failure, unspecified; N18.4 - Chronic kidney disease, stage 4 (severe)
--- NOTE | 2018-08-26 11:07 | P.PNNP ---
Subjective Interval history: Patient is on ventilator free water added Physical Exam Vital signs: Vital Signs 08/25/18 11:16 08/25/18 12:00 08/25/18 12:01 Temperature 98.1 F Pulse Rate 86 86 Respiratory Rate 26 H Blood Pressure 111/76 Pulse Oximetry 99 99 100 08/25/18 13:00 08/25/18 14:00 08/25/18 15:00 Temperature Pulse Rate 89 90 88 Respiratory Rate Blood Pressure 118/89 Pulse Oximetry 100 100 100 08/25/18 15:23 08/25/18 16:00 08/25/18 17:00 Temperature 97.9 F Pulse Rate 81 79 Respiratory Rate 23 Blood Pressure 106/72 Pulse Oximetry 100 100 99 08/25/18 18:00 08/25/18 19:00 08/25/18 20:00 Temperature 98.8 F Pulse Rate 79 78 79 Respiratory Rate Blood Pressure 109/80 113/85 Pulse Oximetry 98 100 98 08/25/18 21:00 08/25/18 21:23 08/25/18 22:00 Temperature Pulse Rate 78 75 Respiratory Rate 15 Blood Pressure 115/79 Pulse Oximetry 100 100 100 08/25/18 23:00 08/26/18 00:00 08/26/18 01:00 Temperature Pulse Rate 79 81 77 Respiratory Rate Blood Pressure 116/82 Pulse Oximetry 100 99 100 08/26/18 01:15 08/26/18 02:00 08/26/18 02:01 Temperature Pulse Rate 80 79 Respiratory Rate 18 Blood Pressure 107/86 Pulse Oximetry 100 97 99 08/26/18 03:00 08/26/18 04:00 08/26/18 04:01 Temperature Pulse Rate 78 79 76 Respiratory Rate 14 Blood Pressure 117/83 Pulse Oximetry 100 100 98 08/26/18 05:00 08/26/18 06:00 08/26/18 07:00 Temperature Pulse Rate 79 72 78 Respiratory Rate Blood Pressure Pulse Oximetry 100 99 100 08/26/18 07:56 08/26/18 08:00 08/26/18 08:27 Temperature 97.7 F Pulse Rate 81 85 Respiratory Rate 26 H Blood Pressure 118/89 Pulse Oximetry 100 100 100 08/26/18 09:00 08/26/18 10:00 Temperature Pulse Rate 84 80 Respiratory Rate 18 Blood Pressure 109/89 Pulse Oximetry 100 100 Intake & Output 08/25/18 08/26/18 08/26/18 18:59 06:59 18:59 Intake Total 951 / 951 2205 / 2205 200 / 200 Output Total 1380 / 1380 1625 / 1625 Balance -429 / -429 580 / 580 200 / 200 Weight 68 kg Intake: IV 550 / 550 1700 / 1700 Flexbumin 25% Inj 100 ML @ 60 100 / 100 mls/hr IV.SIG Q6HR ANAHI Rx#: [id number] Azithromycin Inj 500 MG In NS 250 / 250 Inj 250 ML @ 250 mls/hr IV.SIG Q24H ANAHI Rx#:[id number] Maxipime Inj 2,000 MG In NS Inj 100 / 100 100 ML @ 200 mls/hr IV.SIG Q24H ANAHI Rx#:[id number] Flagyl 500 MG Inj 100 ML @ 100 200 / 200 100 / 100 mls/hr IV.SIG Q8H ANAHI Rx#: [id number] Tube Feeding 401 / 401 505 / 505 Free Water Amount 200 / 200 Output: Stool 200 / 200 300 / 300 Urine Amount (Catheter) 600 / 600 900 / 900 Indwelling Urethral Catheter 600 / 600 900 / 900 Chest Tube Drainage 580 / 580 425 / 425 Right Mid-Axillary Chest 580 / 580 425 / 425 Other: Date of Last Bowel Movement 08/25/18 08/25/18 08/25/18 Narrative: GENERAL: Intubated and mechanically ventilated on 30% FiO2. SKIN: warm and dry. HEAD: Normocephalic. NECK: Intubated, central line in left jugular. Icteric sclera appreciated. CARDIOVASCULAR: Regular rate and rhythm with no murmurs, rubs or gallops. RESPIRATORY: Clear to auscultation bilaterally, chest tube in place on right side. GASTROINTESTINAL: Abdomen soft, non-tender, nondistended. On tube feeds. EXTREMITIES: No lower ext edema BL, +2 PD pulses BL. NEUROLOGICAL: Responsive and following commands. - Urinary Catheter Management Indwelling Urethral Catheter Cath placed during this visit: yes Reason for continuing: Hourly intake/output Insertion date: 08/16/18 Assessment and Plan - Assessment (1) Acute kidney injury superimposed on CKD Code(s): N17.9 - Acute kidney failure, unspecified; N18.9 - Chronic kidney disease, unspecified Status: Acute Plan: Patient remains nonoliguric acute renal failure and chronic kidney disease sodium is worse On free water Diuretic dose decreased to 500 mg daily Creatinine is rising He has severe cardiomyopathy EF of 20% or less patient family wants to discuss dialysis consider peritoneal dialysis discussed with maintenance dispatcher critical 1 L output from the chest cannot extubate her without dialysis Dr. López will follow (2) Acute exacerbation of congestive heart failure Code(s): I50.9 - Heart failure, unspecified Status: Acute Plan: Cardiology following. She has cardiomyopathy EF 20%. (3) Severe sepsis Code(s): A41.9 - Sepsis, unspecified organism; R65.20 - Severe sepsis without septic shock Status: Acute Plan: Patient on Flagyl, Azithromycin, and Cefepime. (4) Pneumonia Code(s): J18.9 - Pneumonia, unspecified organism Status: Acute Plan: Patient is being treated with IV antibiotics (5) Pleural effusion Code(s): J90 - Pleural effusion, not elsewhere classified Status: Acute Plan: Patient on Diuril.
[2018-08-26] MEDS: Azithromycin Inj 500 MG in Sodium Chlor 0.9% Inj 250 ML IV.SIG SCH (12:40)
[2018-08-26] MEDS: Milrinone Inj 20 MG in Sodium Chlor 0.9% Inj 80 ML IV.CONT SCH (13:59)
[2018-08-26 18:41] LABS: Magnesium 2.2 mg/dL (1.5-2.5)
[2018-08-26 18:45] LABS: Potassium 2.7 meq/L (3.5-5.1)
[2018-08-26] MEDS: Potassium Chlor 20 mEq Premix 20 MEQ/100 ML PIGGYBACK IV.SIG SCH (22:33)
[2018-08-27] MEDS: Potassium Chlor 20 mEq Premix 20 MEQ/100 ML PIGGYBACK IV.SIG SCH ×3 (00:27→04:21)
[2018-08-27 05:16] LABS: Hematocrit 30.4 % (35.0-46.0); Hemoglobin 10.2 gm/dL (11.6-15.3); Mean Corpuscular HGB Conc 33.5 % (32.0-36.0); Mean Corpuscular Hemoglobin 23.7 pg (27.0-34.0); Mean Corpuscular Volume 70.7 fL (80.0-100.0); Mean Platelet Volume 10.8 fL (7.0-11.0); Platelet Count 81 th/mm3 (150-450); Red Cell Distribution Width 20.2 % (11.6-17.2); White Blood Count 14.4 th/mm3 (4.0-11.0)
[2018-08-27 05:25] LABS: Activated Partial Thrombo Time 37.5 sec (23.4-31.7); INR 2.1 Ratio; Prothrombin Time 21.1 sec (9.8-11.6)
[2018-08-27 07:50] LABS: Acanthocytes 1+; Eosinophils 1 % (0-4); Lymphocytes 11 % (9-44); Monocytes 10 % (0-8); Ovalocytes 1+; Platelet Morphology Normal (Normal); Tallied Nucleated RBC 3 (0-0); Target Cells 1+
--- NOTE | 2018-08-27 08:40 | P.PNCC ---
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 Patient also had productive cough and frothy sputum, sometimes blood tinged. She also complained about declining urinary output. Initial ER workup showed a normal white count, however BUN was elevated at 80 and creatinine 2.72. BNP was more than 4000. Chest x-ray showed right midlung infiltrate. Patient received Rocephin and azithromycin for community-acquired pneumonia. Patient was admitted to the [facility] service. After admission due to the shortness of breath pedal edema and elevated BNP [facility] service gave the patient 20 mg IV Lasix but without much urine output. Initially patient had HR of 170's EKG appeared to be SVT and patient converted to NSR with IV Cardizem 25 mg. However patient's blood pressure started to decline. Because of this patient was given IV fluid boluses total 1.5 L had been given. Systolic blood pressure remains at 70s. Lactic acid was checked and was 8.1. With this information critical care medicine was consulted I evaluated the patient emergently. She is lethargic but wakes up easily answers questions. Still profoundly hypotensive despite 1.5 L bolus. I have ordered additional 500 mL bolus and will start Levophed at 5 mcg/min and titrate as needed. It was noted had that her INR is 5.2. Patient may benefit from inotropic agents if blood pressure improves. Antibiotics had been broadened into cefepime and azithromycin, I will also add IV Zyvox. Hold all further diuresis due to septic shock. Patient is very critical at this time 08/16: Patient sitting up in bed. Off Levophed however urine output is minimal only 75 mL urine output since admission. CVP remains elevated at 14-15. I will attempt forced diuresis with Bumex 2 mg x1 and Bumex 0.5 mg/h infusion. If no response may need hemodialysis. Follow-up chest x-ray today is pending. Chest x-ray shows persistent right sided infiltrate and effusion 08/17: Patient developed PEA cardiac arrest yesterday afternoon. No immediate inciting factors could be identified however most likely cardiac. 2D echo ordered pending. CT of the head pending. Currently patient had been weaned off all of the pressors however remains encephalopathy. Creatinine is worsening to 3.8 however urine output has improved approximately 500 ml UO in the last 12 hours. 08/18: Patient remains intubated lightly sedated. On lightening sedation patient wakes up easily following commands. Remains on Bumex infusion approximately 6 L urine output. However chest x-ray showing pulmonary edema. Remains off pressors. Will attempt CPAP trials. CT head did not show any acute finding 08/19: Diuresing well with Bumex infusion achieving negative balance however chest x-ray shows bilateral pulmonary vascular congestion and bilateral at least moderate effusions. These are secondary to decompensated heart failure. EF is less than 20 with severe MR. Creatinine down to 3. Prognosis overall is poor despite milrinone and diuresis patient is not proving adequately. We will consult palliative care to address goals of care 08/20: Patient continues to be in decompensated congestive heart failure. Despite increasing Bumex to 2 mg/h, urine output has decreased to 1.6 L in 24 hours. Chest x-ray continued to show bilateral large pleural effusions. Right- sided pigtail chest tube was placed today with 1 L output initially. Milrinone discontinued due to increasing ventricular irritability. 08/21: Remains sedated, orally intubated on mechanical ventilation. Bumex drip continues. 08/22: Off sedation since 08/18. Intubated and on PSV / CPAP. Not following commands. 08/23: Intubated and on PRVC A/C currently. Had tachycardia during CPAP trials today. She is following commands now. 08/24: Intubated and currently on CPAP / PSV w/ pressures of 10/5. When pressure support was decreased to 7/5 she became tachypneic 08/25: On mechanical ventilation. Awake, follows commands. Significant output from right-sided pigtail catheter. 08/26: Remains on mechanical ventilation. Remains off sedation. Awake, follows commands. Drained about 1 L from right pigtail catheter. Added free water for hypernatremia. BUN remains elevated. 08/27: Mechanically ventilated, off sedation. Awake and following commands. Pigtail catheter drained 150cc today, but is obstructed by thick fluid. Objective Vital Signs / I&O: Vital Signs 08/26/18 09:00 08/26/18 10:00 08/26/18 11:00 Temperature Pulse Rate 84 80 79 Respiratory Rate 18 Blood Pressure 109/89 Pulse Oximetry 100 100 100 08/26/18 12:00 08/26/18 12:01 08/26/18 13:00 Temperature 97.3 F L Pulse Rate 78 81 78 Respiratory Rate Blood Pressure 126/86 Pulse Oximetry 100 95 100 08/26/18 14:00 08/26/18 15:00 08/26/18 15:46 Temperature Pulse Rate 72 70 Respiratory Rate 17 Blood Pressure 108/86 Pulse Oximetry 100 99 100 08/26/18 16:00 08/26/18 16:01 08/26/18 17:00 Temperature 97.1 F L Pulse Rate 67 66 67 Respiratory Rate Blood Pressure 117/81 Pulse Oximetry 98 100 99 08/26/18 18:00 08/26/18 19:00 08/26/18 19:17 Temperature Pulse Rate 71 72 Respiratory Rate 16 Blood Pressure 118/80 Pulse Oximetry 99 98 100 08/26/18 20:00 08/26/18 21:00 08/26/18 22:00 Temperature 98.2 F Pulse Rate 71 74 77 Respiratory Rate 16 Blood Pressure 117/86 116/88 Pulse Oximetry 98 100 99 08/26/18 23:00 08/27/18 00:00 08/27/18 00:01 Temperature 97.5 F L Pulse Rate 65 77 70 Respiratory Rate Blood Pressure 113/81 Pulse Oximetry 100 99 100 08/27/18 00:15 08/27/18 01:00 08/27/18 02:00 Temperature Pulse Rate 68 66 Respiratory Rate 18 Blood Pressure 104/74 Pulse Oximetry 100 100 99 08/27/18 03:00 08/27/18 03:43 08/27/18 04:00 Temperature 98 F Pulse Rate 72 75 Respiratory Rate 14 16 Blood Pressure Pulse Oximetry 100 100 100 08/27/18 04:07 08/27/18 05:00 08/27/18 06:00 Temperature Pulse Rate 74 78 79 Respiratory Rate Blood Pressure 106/72 107/86 Pulse Oximetry 96 100 99 Intake & Output 08/26/18 08/27/18 08/27/18 18:59 06:59 18:59 Intake Total 1884 / 1884 1799 / 1799 Output Total 1310 / 1310 1173 / 1173 Balance 574 / 574 626 / 626 Weight 65.5 kg Intake: IV 450 / 450 600 / 600 Azithromycin Inj 500 MG In NS 250 / 250 Inj 250 ML @ 250 mls/hr IV.SIG Q24H ANAHI Rx#:[id number] Maxipime Inj 2,000 MG In NS Inj 100 / 100 100 ML @ 200 mls/hr IV.SIG Q24H ANAHI Rx#:[id number] KCl 20 mEq Premix Inj 20 meq In 300 / 300 100 ml @ 50 mls/hr IV.SIG Q2H ANAHI Rx#:[id number] KCl 40 mEq Premix Inj 40 meq In 100 / 100 100 ml @ 25 mls/hr IV.SIG NOW ANAHI Rx#:[id number] Flagyl 500 MG Inj 100 ML @ 100 100 / 100 200 / 200 mls/hr IV.SIG Q8H ANAHI Rx#: [id number] Tube Feeding 234 / 234 399 / 399 Water Bolus Amount 600 / 600 400 / 400 Free Water Amount 600 / 600 400 / 400 Output: Stool 200 / 200 Urine Amount (Catheter) 1050 / 1050 825 / 825 Indwelling Urethral Catheter 1050 / 1050 825 / 825 Chest Tube Drainage 260 / 260 148 / 148 Right Mid-Axillary Chest 260 / 260 148 / 148 Other: Date of Last Bowel Movement 08/26/18 08/26/18 # Incontinent Bowel Movements 2 Result Diagrams: 08/27/18 04:55 08/27/18 11:00 Objective Remarks: General: Ill-appearing -[place] female who is intubated, no sedation, she is following one-step commands. HEENT: Normocephalic and atraumatic. Pupils are reactive. Mild right facial droop. Orotracheally intubated Neck: Supple, no JVD Chest: Normal inspection of the chest. Scar from AICD placement on the left upper chest. AICD now in right upper chest. Chest tube in place. Resp: Air entry diminished in the right mid chest few crackles heard. No wheezes or rhonchi. On CPAP / PSV currently Rate: Regular rate and rhythm without murmur GI: Abdomen soft and non-tender to palpation Skin: No rashes or lesions noted, dry skin Neuro: Intubated, GCS 10T, she is following one-step commands. Assessment and Plan - Problem List (1) Severe sepsis Code(s): A41.9 - Sepsis, unspecified organism; R65.20 - Severe sepsis without septic shock Status: Acute (2) Pneumonia Code(s): J18.9 - Pneumonia, unspecified organism Status: Acute (3) Acute exacerbation of CHF (congestive heart failure) Code(s): I50.9 - Heart failure, unspecified Status: Acute (4) Acute on chronic kidney failure Code(s): N17.9 - Acute kidney failure, unspecified; N18.9 - Chronic kidney disease, unspecified Status: Acute (5) Pleural effusion Code(s): J90 - Pleural effusion, not elsewhere classified Status: Acute (6) PEA (Pulseless electrical activity) Code(s): I46.9 - Cardiac arrest, cause unspecified Status: Resolved (7) Hypertension Code(s): I10 - Essential (primary) hypertension Status: Acute (8) Supratherapeutic INR Code(s): R79.1 - Abnormal coagulation profile Status: Acute (9) Nutrition, metabolism, and development symptoms Code(s): R63.8 - Other symptoms and signs concerning food and fluid intake Status: Acute - Assessment and Plan Plan: ASSESSMENT: PEA cardiac arrest Decompensated systolic heart failure Bilateral pleural effusion/pulmonary edema Severe biventricular failure Acute metabolic encephalopathy Septic shock improving Cardiogenic shock-marginally improving Acute respiratory failure Severe MR, TR Right sided pneumonia, with effusion Lactic acidemia Acute on chronic kidney disease Supratherapeutic INR Mild troponin elevation SVT-resolved Hypokalemia Cardiomyopathy ejection fraction 20% Chronic kidney disease Hypertension History of CVA in 2017 Chronic anticoagulation with Coumadin PLAN: NEURO: -Metabolic encephalopathy secondary to sepsis, no evidence of significant anoxic injury from PEA arrest -No evidence of new CVA at this time. CT 2 of the head negative for acute findings old right frontal stroke -Monitor neuro status closely, off sedation, she is following commands RESP: -Status post ultrasound-guided thoracentesis, studies consistent with transudative versus early exudative effusion -Status post right pigtail chest tube placement (08/20) -Intubated and placed on mechanical ventilation during CPR 08/16/18, on PRVC A/C -Daily CPAP trials -Thick fluid obstructing the pigtail catheter, will exchange external portion of chest tube and repeat chest x-ray CV: -Following PEA cardiac arrest patient was on epinephrine and Levophed infusion as well as milrinone. Now off all pressor support. -2D echo previously showing EF 20-25%. Repeat 2D echo. Severely dilated right and left ventricle with severe biventricular dysfunction. LV EF less than 20%. Severe MR and TR. -BID chlorthalidone 500 mg twice daily per nephrology -wig sales consultant following -Diltiazem drip stopped 08/23. Received 0.5 mg of digoxin 08/23. Lopressor 12.5 mg 3 times daily GI: -IV famotidine -Tube feeds with Nepro and free water -Total bilirubin has been increasing, recheck CMP today RENAL: -Monitor renal function closely. Bradley catheter. -Nephrology following: Chlorthalidone 500 daily -Tube feeds with Nepro and free water -Rising BUN creatinine noted nephrology does not think she would tolerate dialysis ID: -Continue empiric cefepime, Flagyl and azithromycin -Blood and pleural fluid cultures negative to date. Sputum cx taken 08/22 showed moderate growth of respiratory bear. -Mild increase in leukocytosis today, reculture blood, sputum, and urine HEME: -Mild stable anemia -Monitor CBC and coags daily -Status post multiple platelet and vitamin K administration -Restarted warfarin on 08/23: 1 mg p.o. daily (INR goal of 2-3) ENDO: -Electrolyte replacement as needed PROPH: -Bilateral lower extremity SCDs. IV famotidine. LINES: -Utilize peripheral IVs, -Left IJ central line placed 08/15/2018 -Right femoral arterial line placed 08/16 -Intubation and left femoral central line placement 08/16/2018 -Right pigtail chest tube placed 08/20/2018, still with significant output DISPOSITION: -Prognosis is poor to her neurologic, cardiovascular, and respiratory status. -Palliative care is following Patient remains critically ill with encephalopathy, acute respiratory failure on mechanical ventilation, cardiomyopathy, CHF Patient seen and examined, discussed findings/ assessment and plan with Dr. Lopez, agree with above note. Tolerated CPAP trial and patient extubated to nasal cannula. (3) Acute exacerbation of CHF (congestive heart failure) Qualifiers: Heart failure type: systolic Qualified Code(s): I50.23 - Acute on chronic systolic (congestive) heart failure (4) Acute on chronic kidney failure Qualifiers: Acute renal failure type: unspecified Chronic kidney disease stage: stage 4 ( severe) Qualified Code(s): N17.9 - Acute kidney failure, unspecified; N18.4 - Chronic kidney disease, stage 4 (severe)
[2018-08-27] MEDS: Metoprolol Tartrate 25 MG Tablet PO SCH ×3 (08:57→17:15)
[2018-08-27] MEDS: Senna/Docusate Sodium 8.6/50 MG Tablet PO SCH ×2 (08:57→21:11)
--- NOTE | 2018-08-27 10:08 | P.PNFP ---
Subjective Interval history: Patient was seen at bedside this morning. There were no acute events overnight. This morning patient is awake and alert now that sedation has been lifted. Patient able to communicate via shaking head and giving thumbs up or thumbs down. I asked patient if she had any concerns and went by each review system. She shook her head notes all review of systems but gave me a thumbs up and shake her head yes when he came to questions about her cardiovascular health. I explained her current ejection fraction as well as ability to perfuse organs and previous need for pressors which she no longer requires. Plan was reviewed with her to which she shook her head yes for understanding. All questions were answered to the patient's satisfaction despite her limited ability to communicate. <Dru Jane - 08/27/18 22:46> Results - Labs Result diagrams: 08/28/18 05:00 08/28/18 05:00 <Amelia Phoenix - 08/28/18 07:44> Abnormal lab results 08/27/18 08/27/18 08/27/18 Range/Units 04:55 11:00 11:10 Hgb (11.6-15.3) gm/dL Hct (35.0-46.0) % MCV (80.0-100.0) fL MCH (27.0-34.0) pg RDW (11.6-17.2) % Plt Count (150-450) th/mm3 Neut % (Auto) (16.0-70.0) % [place] % (Auto) (0.0-8.0) % Neut # (Auto) (1.8-7.7) th/mm3 [place] # (Auto) (0.0-0.9) th/mm3 Seg Neuts % (Manual) 77 H (16-70) % Monocytes % (Manual) 10 H (0-8) % Abs Neuts (Manual) 11.2 H (1.8-7.7) th/mm3 Nucleated RBCs/100 WBC 3 H (0-0) /100 WBC Platelet Estimate Low L (Normal) Target Cells 1+ H (None) Ovalocytes 1+ H (None) Acanthocytes (Spur) 1+ H (None) Keratocytes 1+ H (None) PT (9.8-11.6) sec APTT (23.4-31.7) sec ABG pH 7.50 H (7.380-7.420) ABG pCO2 37 L (38-42) mmHg ABG pO2 138 H (61-120) mmHG ABG HCO3 28 H (22-26) mmol/L ABG Base Excess 4.9 H (-2-2) mmol/L Hemoglobin 9.5 L (12.0-16.0) G/DL Sodium 156 H* (136-145) meq/L Potassium (3.5-5.1) meq/L Chloride 114 H (98-107) meq/L Carbon Dioxide 32.3 H (21.0-32.0) meq/L BUN 138 H (7-18) mg/dL Creatinine 2.83 H (0.50-1.00) mg/dL Estimated GFR 20 L (>89) mL/min Random Glucose 140 H (74-106) mg/dL Total Bilirubin 9.1 H (0.2-1.0) mg/dL Direct Bilirubin 6.2 H (0.0-0.2) mg/dL Indirect Bilirubin 2.9 H (0.0-0.8) mg/dL AST 138 H (15-37) U/L Total Protein 6.1 L (6.4-8.2) g/dL Urine Clarity (Clear) Urine Protein (Neg-Trace) mg/dL Urine Occult Blood (Negative) Ur Leukocyte Esterase (Negative) Urine RBC (0-3) /hpf Urine WBC (0-5) /hpf Urine Bacteria (None) /hpf Urine Yeast (None) /hpf 08/27/18 08/27/18 08/28/18 Range/Units 15:55 17:00 05:00 Hgb 9.6 L (11.6-15.3) gm/dL Hct 29.0 L (35.0-46.0) % MCV 71.7 L (80.0-100.0) fL MCH 23.7 L (27.0-34.0) pg RDW 20.5 H (11.6-17.2) % Plt Count 72 L (150-450) th/mm3 Neut % (Auto) 75.2 H (16.0-70.0) % [place] % (Auto) 14.7 H (0.0-8.0) % Neut # (Auto) 8.2 H (1.8-7.7) th/mm3 [place] # (Auto) 1.6 H (0.0-0.9) th/mm3 Seg Neuts % (Manual) (16-70) % Monocytes % (Manual) (0-8) % Abs Neuts (Manual) (1.8-7.7) th/mm3 Nucleated RBCs/100 WBC (0-0) /100 WBC Platelet Estimate (Normal) Target Cells (None) Ovalocytes (None) Acanthocytes (Spur) (None) Keratocytes (None) PT (9.8-11.6) sec APTT (23.4-31.7) sec ABG pH 7.50 H (7.380-7.420) ABG pCO2 35 L (38-42) mmHg ABG pO2 161 H (61-120) mmHG ABG HCO3 27 H (22-26) mmol/L ABG Base Excess 3.5 H (-2-2) mmol/L Hemoglobin 9.6 L (12.0-16.0) G/DL Sodium (136-145) meq/L Potassium (3.5-5.1) meq/L Chloride (98-107) meq/L Carbon Dioxide (21.0-32.0) meq/L BUN (7-18) mg/dL Creatinine (0.50-1.00) mg/dL Estimated GFR (>89) mL/min Random Glucose (74-106) mg/dL Total Bilirubin (0.2-1.0) mg/dL Direct Bilirubin (0.0-0.2) mg/dL Indirect Bilirubin (0.0-0.8) mg/dL AST (15-37) U/L Total Protein (6.4-8.2) g/dL Urine Clarity Hazy H (Clear) Urine Protein 100 H (Neg-Trace) mg/dL Urine Occult Blood Moderate H (Negative) Ur Leukocyte Esterase Small H (Negative) Urine RBC 56 H (0-3) /hpf Urine WBC 27 H (0-5) /hpf Urine Bacteria Occasional H (None) /hpf Urine Yeast Many H (None) /hpf 08/28/18 08/28/18 Range/Units 05:00 05:00 Hgb (11.6-15.3) gm/dL Hct (35.0-46.0) % MCV (80.0-100.0) fL MCH (27.0-34.0) pg RDW (11.6-17.2) % Plt Count (150-450) th/mm3 Neut % (Auto) (16.0-70.0) % [place] % (Auto) (0.0-8.0) % Neut # (Auto) (1.8-7.7) th/mm3 [place] # (Auto) (0.0-0.9) th/mm3 Seg Neuts % (Manual) (16-70) % Monocytes % (Manual) (0-8) % Abs Neuts (Manual) (1.8-7.7) th/mm3 Nucleated RBCs/100 WBC (0-0) /100 WBC Platelet Estimate (Normal) Target Cells (None) Ovalocytes (None) Acanthocytes (Spur) (None) Keratocytes (None) PT 19.3 H (9.8-11.6) sec APTT 34.7 H (23.4-31.7) sec ABG pH (7.380-7.420) ABG pCO2 (38-42) mmHg ABG pO2 (61-120) mmHG ABG HCO3 (22-26) mmol/L ABG Base Excess (-2-2) mmol/L Hemoglobin (12.0-16.0) G/DL Sodium 158 H* (136-145) meq/L Potassium 3.0 L (3.5-5.1) meq/L Chloride 115 H (98-107) meq/L Carbon Dioxide (21.0-32.0) meq/L BUN 149 H (7-18) mg/dL Creatinine 2.82 H (0.50-1.00) mg/dL Estimated GFR 20 L (>89) mL/min Random Glucose (74-106) mg/dL Total Bilirubin (0.2-1.0) mg/dL Direct Bilirubin (0.0-0.2) mg/dL Indirect Bilirubin (0.0-0.8) mg/dL AST (15-37) U/L Total Protein (6.4-8.2) g/dL Urine Clarity (Clear) Urine Protein (Neg-Trace) mg/dL Urine Occult Blood (Negative) Ur Leukocyte Esterase (Negative) Urine RBC (0-3) /hpf Urine WBC (0-5) /hpf Urine Bacteria (None) /hpf Urine Yeast (None) /hpf Short CBC 08/28/18 Range/Units 05:00 WBC 10.9 (4.0-11.0) th/mm3 Hgb 9.6 L (11.6-15.3) gm/dL Hct 29.0 L (35.0-46.0) % Plt Count 72 L (150-450) th/mm3 BMP 08/27/18 08/28/18 11:00 05:00 Sodium 156 H* 158 H* Potassium 3.7 D 3.0 L Chloride 114 H 115 H Carbon Dioxide 32.3 H 31.3 BUN 138 H 149 H Creatinine 2.83 H 2.82 H Calcium 9.3 9.4 Liver Function 08/27/18 08/27/18 Range/Units 11:00 11:00 Total Bilirubin 9.1 H Cancelled (0.2-1.0) mg/dL Direct Bilirubin 6.2 H Cancelled (0.0-0.2) mg/dL AST 138 H (15-37) U/L ALT 53 (10-53) U/L Alkaline Phosphatase 109 (45-117) U/L Albumin 3.7 (3.4-5.0) g/dL Urine 08/27/18 Range/Units 17:00 Urine Color Ava (Yellw/Straw) Urine Clarity Hazy H (Clear) Urine pH 5.0 (5.0-8.5) Ur Specific [place] 1.013 (1.002-1.035) Urine Protein 100 H (Neg-Trace) mg/dL Urine Glucose (UA) Negative (Negative) mg/dL <Amelia Phoenix - 08/28/18 07:44> Abnormal lab results 08/26/18 08/27/18 08/27/18 Range/Units 16:54 04:55 04:55 WBC 14.4 H (4.0-11.0) th/mm3 Hgb 10.2 L (11.6-15.3) gm/dL Hct 30.4 L (35.0-46.0) % MCV 70.7 L (80.0-100.0) fL MCH 23.7 L (27.0-34.0) pg RDW 20.2 H (11.6-17.2) % Plt Count 81 L (150-450) th/mm3 Seg Neuts % (Manual) 77 H (16-70) % Monocytes % (Manual) 10 H (0-8) % Abs Neuts (Manual) 11.2 H (1.8-7.7) th/mm3 Nucleated RBCs/100 WBC 3 H (0-0) /100 WBC Platelet Estimate Low L (Normal) Target Cells 1+ H (None) Ovalocytes 1+ H (None) Acanthocytes (Spur) 1+ H (None) Keratocytes 1+ H (None) PT 21.1 H (9.8-11.6) sec APTT 37.5 H (23.4-31.7) sec Potassium 2.7 L* (3.5-5.1) meq/L B-Natriuretic Peptide (0-100) pg/mL 08/27/18 Range/Units 04:55 WBC (4.0-11.0) th/mm3 Hgb (11.6-15.3) gm/dL Hct (35.0-46.0) % MCV (80.0-100.0) fL MCH (27.0-34.0) pg RDW (11.6-17.2) % Plt Count (150-450) th/mm3 Seg Neuts % (Manual) (16-70) % Monocytes % (Manual) (0-8) % Abs Neuts (Manual) (1.8-7.7) th/mm3 Nucleated RBCs/100 WBC (0-0) /100 WBC Platelet Estimate (Normal) Target Cells (None) Ovalocytes (None) Acanthocytes (Spur) (None) Keratocytes (None) PT (9.8-11.6) sec APTT (23.4-31.7) sec Potassium (3.5-5.1) meq/L B-Natriuretic Peptide Greater than 5000 H (0-100) pg/mL Short CBC 08/27/18 Range/Units 04:55 WBC 14.4 H (4.0-11.0) th/mm3 Hgb 10.2 L (11.6-15.3) gm/dL Hct 30.4 L (35.0-46.0) % Plt Count 81 L (150-450) th/mm3 BMP 08/26/18 16:54 Potassium 2.7 L* <Phong R1Dru O - 08/27/18 10:08> - Imaging Impressions Chest X-Ray 08/27/18 00:00 CONCLUSION: Nasogastric tube sidehole is not across the GE junction ET tube is just above the josh Compensated cardiomegaly with minimal consolidative changes left base <Amelia Phoenix - 08/28/18 07:44> Physical Exam Vital signs: Vital Signs 08/27/18 08:00 08/27/18 08:25 08/27/18 09:00 Temperature 97.8 F Pulse Rate 73 78 78 Respiratory Rate 16 Blood Pressure 115/75 115/75 Pulse Oximetry 99 97 100 08/27/18 10:00 08/27/18 11:00 08/27/18 11:53 Temperature Pulse Rate 78 75 82 Respiratory Rate Blood Pressure 120/80 111/88 Pulse Oximetry 100 98 08/27/18 12:00 08/27/18 12:07 08/27/18 13:00 Temperature 98.3 F Pulse Rate 82 84 Respiratory Rate 25 H Blood Pressure 110/84 Pulse Oximetry 100 100 100 08/27/18 13:15 08/27/18 13:28 08/27/18 14:00 Temperature Pulse Rate 86 88 Respiratory Rate Blood Pressure 108/75 105/84 Pulse Oximetry 99 100 99 08/27/18 15:00 08/27/18 16:00 08/27/18 16:01 Temperature 98.0 F Pulse Rate 82 82 83 Respiratory Rate Blood Pressure 113/77 113/77 Pulse Oximetry 100 99 100 08/27/18 17:00 08/27/18 17:19 08/27/18 18:00 Temperature Pulse Rate 83 82 83 Respiratory Rate Blood Pressure 115/88 112/88 Pulse Oximetry 100 100 100 08/27/18 18:01 08/27/18 19:00 08/27/18 19:16 Temperature Pulse Rate 83 91 H 85 Respiratory Rate Blood Pressure 114/83 120/82 Pulse Oximetry 99 99 98 08/27/18 20:00 08/27/18 21:00 08/27/18 21:40 Temperature 98.1 F Pulse Rate 83 77 Respiratory Rate 20 Blood Pressure 112/86 115/81 Pulse Oximetry 100 100 98 08/27/18 22:00 08/27/18 23:00 08/27/18 23:07 Temperature Pulse Rate 82 87 82 Respiratory Rate Blood Pressure 111/89 117/88 Pulse Oximetry 100 68 L 08/28/18 00:00 08/28/18 00:01 08/28/18 01:00 Temperature 98.3 F Pulse Rate 83 82 84 Respiratory Rate 20 Blood Pressure 117/87 117/87 Pulse Oximetry 100 100 100 08/28/18 02:00 08/28/18 03:00 08/28/18 04:00 Temperature Pulse Rate 86 88 77 Respiratory Rate Blood Pressure 120/92 H 125/89 108/67 Pulse Oximetry 100 94 L 92 L 08/28/18 05:00 08/28/18 06:00 Temperature Pulse Rate 85 89 Respiratory Rate Blood Pressure 118/90 116/88 Pulse Oximetry 100 Intake & Output 08/27/18 08/28/18 08/28/18 18:59 06:59 18:59 Intake Total 657 / 657 350 / 350 Output Total 660 / 660 1190 / 1190 Balance -3 / -3 -840 / -840 Weight 64.5 kg Intake: IV 300 / 300 350 / 350 Azithromycin Inj 500 MG In NS 250 / 250 Inj 250 ML @ 250 mls/hr IV.SIG Q24H ANAHI Rx#:[id number] Maxipime Inj 2,000 MG In NS Inj 100 / 100 100 ML @ 200 mls/hr IV.SIG Q24H ANAHI Rx#:[id number] Flagyl 500 MG Inj 100 ML @ 100 200 / 200 100 / 100 mls/hr IV.SIG Q8H ANAHI Rx#: [id number] Oral 0 / 0 Tube Feeding 297 / 297 Tube Irrigant 60 / 60 Output: Stool 0 / 0 400 / 400 Urine Amount (Catheter) 450 / 450 600 / 600 Indwelling Urethral Catheter 450 / 450 600 / 600 Chest Tube Drainage 210 / 210 190 / 190 Right Mid-Axillary Chest 210 / 210 190 / 190 Other: Date of Last Bowel Movement 08/27/18 08/28/18 <LizettAmelia - 08/28/18 07:44> Vital Signs 08/26/18 11:00 08/26/18 12:00 08/26/18 12:01 Temperature 97.3 F L Pulse Rate 79 78 81 Respiratory Rate Blood Pressure 126/86 Pulse Oximetry 100 100 95 08/26/18 13:00 08/26/18 14:00 08/26/18 15:00 Temperature Pulse Rate 78 72 70 Respiratory Rate Blood Pressure 108/86 Pulse Oximetry 100 100 99 08/26/18 15:46 08/26/18 16:00 08/26/18 16:01 Temperature 97.1 F L Pulse Rate 67 66 Respiratory Rate 17 Blood Pressure 117/81 Pulse Oximetry 100 98 100 08/26/18 17:00 08/26/18 18:00 08/26/18 19:00 Temperature Pulse Rate 67 71 72 Respiratory Rate Blood Pressure 118/80 Pulse Oximetry 99 99 98 08/26/18 19:17 08/26/18 20:00 08/26/18 21:00 Temperature 98.2 F Pulse Rate 71 74 Respiratory Rate 16 16 Blood Pressure 117/86 Pulse Oximetry 100 98 100 08/26/18 22:00 08/26/18 23:00 08/27/18 00:00 Temperature 97.5 F L Pulse Rate 77 65 77 Respiratory Rate Blood Pressure 116/88 Pulse Oximetry 99 100 99 08/27/18 00:01 08/27/18 00:15 08/27/18 01:00 Temperature Pulse Rate 70 68 Respiratory Rate 18 Blood Pressure 113/81 Pulse Oximetry 100 100 100 08/27/18 02:00 08/27/18 03:00 08/27/18 03:43 Temperature Pulse Rate 66 72 Respiratory Rate 14 Blood Pressure 104/74 Pulse Oximetry 99 100 100 08/27/18 04:00 08/27/18 04:07 08/27/18 05:00 Temperature 98 F Pulse Rate 75 74 78 Respiratory Rate 16 Blood Pressure 106/72 Pulse Oximetry 100 96 100 08/27/18 06:00 08/27/18 08:00 Temperature Pulse Rate 79 Respiratory Rate 16 Blood Pressure 107/86 Pulse Oximetry 99 100 Intake & Output 08/26/18 08/27/18 08/27/18 18:59 06:59 18:59 Intake Total 1884 / 1884 1799 / 1799 Output Total 1310 / 1310 1173 / 1173 Balance 574 / 574 626 / 626 Weight 65.5 kg Intake: IV 450 / 450 600 / 600 Azithromycin Inj 500 MG In NS 250 / 250 Inj 250 ML @ 250 mls/hr IV.SIG Q24H ANAHI Rx#:[id number] Maxipime Inj 2,000 MG In NS Inj 100 / 100 100 ML @ 200 mls/hr IV.SIG Q24H ANAHI Rx#:[id number] KCl 20 mEq Premix Inj 20 meq In 300 / 300 100 ml @ 50 mls/hr IV.SIG Q2H ANAHI Rx#:[id number] KCl 40 mEq Premix Inj 40 meq In 100 / 100 100 ml @ 25 mls/hr IV.SIG NOW ANAHI Rx#:[id number] Flagyl 500 MG Inj 100 ML @ 100 100 / 100 200 / 200 mls/hr IV.SIG Q8H ANAHI Rx#: [id number] Tube Feeding 234 / 234 399 / 399 Water Bolus Amount 600 / 600 400 / 400 Free Water Amount 600 / 600 400 / 400 Output: Stool 200 / 200 Urine Amount (Catheter) 1050 / 1050 825 / 825 Indwelling Urethral Catheter 1050 / 1050 825 / 825 Chest Tube Drainage 260 / 260 148 / 148 Right Mid-Axillary Chest 260 / 260 148 / 148 Other: Date of Last Bowel Movement 08/26/18 08/26/18 # Incontinent Bowel Movements 2 <Dru Jane - 08/27/18 10:08> Narrative: GENERAL: Intubated and mechanically ventilated on 30% FiO2. Undergoing CPAP trial. SKIN: warm and dry. HEAD: Normocephalic. NECK: Intubated, central line in left jugular. CARDIOVASCULAR: Regular rate and rhythm with no murmurs, rubs or gallops. RESPIRATORY: Clear to auscultation bilaterally, chest tube in place on right side. GASTROINTESTINAL: Abdomen soft, non-tender, nondistended. On tube feeds. Rectal tube in place. EXTREMITIES: No lower ext edema.. NEUROLOGICAL: Responsive and following commands. <Dru Jane - 08/27/18 22:46> - Urinary Catheter Management Indwelling Urethral Catheter Cath placed during this visit: no <LizettAmelia - 08/28/18 07:44> yes <Dru Jane - 08/27/18 22:46> Reason for continuing: Hourly intake/output <Dru Jane - 08/27/18 10:08 > Insertion date: 08/16/18 <Dru Jane - 08/27/18 10:08> Assessment and Plan - Assessment (1) Severe sepsis Code(s): A41.9 - Sepsis, unspecified organism; R65.20 - Severe sepsis without septic shock Status: Acute (2) Pneumonia Code(s): J18.9 - Pneumonia, unspecified organism Status: Acute (3) Acute exacerbation of CHF (congestive heart failure) Code(s): I50.9 - Heart failure, unspecified Status: Acute (4) Acute on chronic kidney failure Code(s): N17.9 - Acute kidney failure, unspecified; N18.9 - Chronic kidney disease, unspecified Status: Acute (5) Pleural effusion Code(s): J90 - Pleural effusion, not elsewhere classified Status: Acute (6) PEA (Pulseless electrical activity) Code(s): I46.9 - Cardiac arrest, cause unspecified Status: Resolved (7) Hypertension Code(s): I10 - Essential (primary) hypertension Status: Acute (8) Supratherapeutic INR Code(s): R79.1 - Abnormal coagulation profile Status: Acute (9) Nutrition, metabolism, and development symptoms Code(s): R63.8 - Other symptoms and signs concerning food and fluid intake Status: Acute <Amelia Phoenix - 08/28/18 07:44> (1) Severe sepsis Code(s): A41.9 - Sepsis, unspecified organism; R65.20 - Severe sepsis without septic shock Status: Acute Plan: Community-acquired pneumonia complicated by lower extremity edema in the setting of CHF with an EF of 20%. Patient status post thoracentesis for pleural effusion. -Intubated mechanically ventilated -Blood cultures (08/15): No growth to date -Pleural fluid Gram stain and cultures no growth to date -WBC count increased to 14.4 today. Plan: Per Therapeutic Massage Technician: Continue - Flagyl 500 mg every 8h (08/15-) - Cefepime 2000 mg every 8 hours (08/15-) - Azithromycin 500mg (08/16-) -Continue Diuril 500mg BID -CPAP trials today, did well yesterday but ultimately failed. Will try again today, hopefully for extubation. If patient gets extubated patient will need a Vas-Cath before extubation. -Repeat chest x-ray for 08/27 ordered, follow-up -New blood, urine, and sputum cultures ordered due to increase in white count Palliative care following, goals of care remain aggressive. Patient is day 11 of intubation, family will need to make decision on trach by upcoming Monday for long-term management. (2) Pneumonia Code(s): J18.9 - Pneumonia, unspecified organism Status: Acute Plan: Community acquired right-sided pneumonia with lactic acidosis. -DuoNeb every 2 hours as needed -Sputum culture: Moderate growth normal respiratory bear -Respiratory panel uncollected -Continue with antibiotics per critical care team as dictated above -Repeat CXR 08/25: Improved aeration in left lower lobe. -Repeat CXR 08/27 pending (3) Acute exacerbation of CHF (congestive heart failure) Code(s): I50.9 - Heart failure, unspecified Status: Acute Plan: -BNP 4000 on admission -Bumex discontinued and patient now on Diuril 500mg BID -No lower extremity edema -Echo 08/17: EF 20%, fairly dilated left ventricle, severe mitral regurgitation -Urine output slightly decreased today at 1.19 ml/kg -Patient given 1 L of free water yesterday which she tolerated well -BNP this morning of 5000 -Cardiology following and agree with current plan Per cardiology prognosis is poor. (4) Acute on chronic kidney failure Code(s): N17.9 - Acute kidney failure, unspecified; N18.9 - Chronic kidney disease, unspecified Status: Acute Plan: This patient stage III CKD with elevated creatinine above baseline on admission. Possibly due to decrease intravascular volume in the setting of sepsis. -Creatinine on admission 2.72 from baseline of 1.5. -Creatinine decreased to 2.83 today -Urine output 1.19 ml/kg/hr -Nephrology following Plan: -Chlorothiazide 500mg po decreased to once daily -Trend kidney function -Trend I/O -Will require Hemodialysis upon extubation, possible peritoneal -May need Diamox for bicarbonate levels -Dialysis particularly peritoneal dialysis discussed with family by nephrology -If patient is extubated today patient will need Vas-Cath before extubation for hemodialysis -Nephrology following, appreciate rec (5) Pleural effusion Code(s): J90 - Pleural effusion, not elsewhere classified Status: Acute Plan: Patient status post right sided thoracentesis (08/16/18) with evacuation of approximately 950 ml of slightly cloudy, yellow colored fluid was removed. -Patient underwent therapeutic right sided chest tube placement with pigtail that drained 950ml of slightly cloudy yellow fluid. -08/16: Pleural fluid showed 1,333 red blood cells with 230 nucleated cells. Fluid consistent with transudative process. Cultures show no growth to date. Plan: -Chest tube draining approx 210 ml in last 24 hours -Monitor chest tube output -Continue pulmonary care as stated above -Possible extubation pending CPAP trials today (6) PEA (Pulseless electrical activity) Code(s): I46.9 - Cardiac arrest, cause unspecified Status: Resolved Plan: Patient required ACLS for 9 minutes on 08/16/18 for PEA arrest -ROSC was achieved by critical care medicine -Patient was intubated and sedated and treated with pressor support See treatment for severe sepsis (7) Hypertension Code(s): I10 - Essential (primary) hypertension Status: Acute Plan: History of hypertension. PEA required intubation and mech vent. Patient initially required pressors now off. -Lopressor 12.5 TID (8) Supratherapeutic INR Code(s): R79.1 - Abnormal coagulation profile Status: Acute Plan: History of Afib on warfarin but supratherapeutic on admission. INR now 2.5. -Wafarin 1mg daily (9) Nutrition, metabolism, and development symptoms Code(s): R63.8 - Other symptoms and signs concerning food and fluid intake Status: Acute Plan: Fluids: Per registration officer Electrolytes: Replete as needed Nutrition: Tube feeds with Nepro, Su[place] 1.8 @ 50mL/hr w/ Beneprotein 1-pkt TID recommended by dietitian DVT prophylaxis: Coumadin <Dru Jane - 08/27/18 22:38> - Attending Attestation Patient seen and examined the morning of 08/27/2018, discussed with resident team. I agree with assessment and management as documented and discussed with me. Pt remains intubated but tolerating CPAP. No new concerns from nursing. <Amelia Phoenix - 08/28/18 07:44> <Dru Jane O - Last Filed: 08/27/18 22:38> (3) Acute exacerbation of CHF (congestive heart failure) Qualifiers: Heart failure type: systolic Qualified Code(s): I50.23 - Acute on chronic systolic (congestive) heart failure (4) Acute on chronic kidney failure Qualifiers: Acute renal failure type: unspecified Chronic kidney disease stage: stage 4 ( severe) Qualified Code(s): N17.9 - Acute kidney failure, unspecified; N18.4 - Chronic kidney disease, stage 4 (severe) <Amelia Phoenix - Last Filed: 08/28/18 07:44> (3) Acute exacerbation of CHF (congestive heart failure) Qualifiers: Heart failure type: systolic Qualified Code(s): I50.23 - Acute on chronic systolic (congestive) heart failure (4) Acute on chronic kidney failure Qualifiers: Acute renal failure type: unspecified Chronic kidney disease stage: stage 4 ( severe) Qualified Code(s): N17.9 - Acute kidney failure, unspecified; N18.4 - Chronic kidney disease, stage 4 (severe) <Dru Jane O - Last Filed: 08/27/18 22:38> (3) Acute exacerbation of CHF (congestive heart failure) Qualifiers: Heart failure type: systolic Qualified Code(s): I50.23 - Acute on chronic systolic (congestive) heart failure (4) Acute on chronic kidney failure Qualifiers: Acute renal failure type: unspecified Chronic kidney disease stage: stage 4 ( severe) Qualified Code(s): N17.9 - Acute kidney failure, unspecified; N18.4 - Chronic kidney disease, stage 4 (severe) <Amelia Phoenix - Last Filed: 08/28/18 07:44> (3) Acute exacerbation of CHF (congestive heart failure) Qualifiers: Heart failure type: systolic Qualified Code(s): I50.23 - Acute on chronic systolic (congestive) heart failure (4) Acute on chronic kidney failure Qualifiers: Acute renal failure type: unspecified Chronic kidney disease stage: stage 4 ( severe) Qualified Code(s): N17.9 - Acute kidney failure, unspecified; N18.4 - Chronic kidney disease, stage 4 (severe)
--- NOTE | 2018-08-27 10:35 | XR ---
EXAM DATE: 08/27/2018 10:19 AM EST AGE/SEX: 67 years / Female INDICATIONS: Pleural effusion CLINICAL DATA: This is the patient's initial encounter. Patient reports that signs and symptoms have been present for 2 days and indicates a pain score of Nonresponsive. MEDICAL/SURGICAL HISTORY: Myocardial infarction. Pacemaker. COMPARISON: C, CHEST 1V SINGLE AP, 08/25/2018. . FINDINGS: Pacemaker right chest ET tube just above the josh central line from the left IJ approach in the sup erior vena cava. Nasogastric tube across the GE junction, side hole is not. Heart is enlarged. Minimal consolidative changes are seen in the left base. There is no significant p leural effusion. The portion of the bony skeleton visualized is unremarkable. CONCLUSION: Nasogastric tube sidehole is not across the GE junction ET tube is just above the josh Compensated cardiomegaly with minimal consolidative changes left base Electronically signed by: Sonny Rosas MD Board Certified Radiologist 08/27/2018 10:33 AM EST
[2018-08-27 11:18] LABS: ABG Base Excess 4.9 mmol/L (-2-2); ABG PCO2 37 mmHg (38-42); ABG PO2 138 mmHG (61-120)
--- NOTE | 2018-08-27 12:01 | P.PNNP ---
Subjective Interval history: Patient was seen, no distress, awake and follows commands. Patient mechanically ventilated on 30% FiO2. Possible extubation today. <Travis Carlton - Last Filed: 08/27/18 11:52> Physical Exam Vital signs: Vital Signs 08/26/18 12:00 08/26/18 12:01 08/26/18 13:00 Temperature 97.3 F L Pulse Rate 78 81 78 Respiratory Rate Blood Pressure 126/86 Pulse Oximetry 100 95 100 08/26/18 14:00 08/26/18 15:00 08/26/18 15:46 Temperature Pulse Rate 72 70 Respiratory Rate 17 Blood Pressure 108/86 Pulse Oximetry 100 99 100 08/26/18 16:00 08/26/18 16:01 08/26/18 17:00 Temperature 97.1 F L Pulse Rate 67 66 67 Respiratory Rate Blood Pressure 117/81 Pulse Oximetry 98 100 99 08/26/18 18:00 08/26/18 19:00 08/26/18 19:17 Temperature Pulse Rate 71 72 Respiratory Rate 16 Blood Pressure 118/80 Pulse Oximetry 99 98 100 08/26/18 20:00 08/26/18 21:00 08/26/18 22:00 Temperature 98.2 F Pulse Rate 71 74 77 Respiratory Rate 16 Blood Pressure 117/86 116/88 Pulse Oximetry 98 100 99 08/26/18 23:00 08/27/18 00:00 08/27/18 00:01 Temperature 97.5 F L Pulse Rate 65 77 70 Respiratory Rate Blood Pressure 113/81 Pulse Oximetry 100 99 100 08/27/18 00:15 08/27/18 01:00 08/27/18 02:00 Temperature Pulse Rate 68 66 Respiratory Rate 18 Blood Pressure 104/74 Pulse Oximetry 100 100 99 08/27/18 03:00 08/27/18 03:43 08/27/18 04:00 Temperature 98 F Pulse Rate 72 75 Respiratory Rate 14 16 Blood Pressure Pulse Oximetry 100 100 100 08/27/18 04:07 08/27/18 05:00 08/27/18 06:00 Temperature Pulse Rate 74 78 79 Respiratory Rate Blood Pressure 106/72 107/86 Pulse Oximetry 96 100 99 08/27/18 08:00 Temperature Pulse Rate Respiratory Rate 16 Blood Pressure Pulse Oximetry 100 Intake & Output 08/26/18 08/27/18 08/27/18 18:59 06:59 18:59 Intake Total 1884 / 1884 1799 / 1799 Output Total 1310 / 1310 1173 / 1173 Balance 574 / 574 626 / 626 Weight 65.5 kg Intake: IV 450 / 450 600 / 600 Azithromycin Inj 500 MG In NS 250 / 250 Inj 250 ML @ 250 mls/hr IV.SIG Q24H [facility] Rx#:[id number] Maxipime Inj 2,000 MG In NS Inj 100 / 100 100 ML @ 200 mls/hr IV.SIG Q24H ANA[facility] Rx#:[id number] KCl 20 mEq Premix Inj 20 meq In 300 / 300 100 ml @ 50 mls/hr IV.SIG Q2H ANA[facility] Rx#:[id number] KCl 40 mEq Premix Inj 40 meq In 100 / 100 100 ml @ 25 mls/hr IV.SIG NOW ANAHI Rx#:[id number] Flagyl 500 MG Inj 100 ML @ 100 100 / 100 200 / 200 mls/hr IV.SIG Q8H ANA[facility] Rx#: [id number] Tube Feeding 234 / 234 399 / 399 Water Bolus Amount 600 / 600 400 / 400 Free Water Amount 600 / 600 400 / 400 Output: Stool 200 / 200 Urine Amount (Catheter) 1050 / 1050 825 / 825 Indwelling Urethral Catheter 1050 / 1050 825 / 825 Chest Tube Drainage 260 / 260 148 / 148 Right Mid-Axillary Chest 260 / 260 148 / 148 Other: Date of Last Bowel Movement 08/26/18 08/26/18 # Incontinent Bowel Movements 2 Narrative: GENERAL: Intubated and mechanically ventilated on 30% FiO2. SKIN: warm and dry. HEAD: Normocephalic. NECK: Intubated, central line in left jugular. CARDIOVASCULAR: Regular rate and rhythm with no murmurs, rubs or gallops. RESPIRATORY: Clear to auscultation bilaterally, chest tube in place on right side. GASTROINTESTINAL: Abdomen soft, non-tender, nondistended. On tube feeds. EXTREMITIES: No lower ext edema.. NEUROLOGICAL: Responsive and following commands. - Urinary Catheter Management Indwelling Urethral Catheter Cath placed during this visit: yes Reason for continuing: Hourly intake/output Insertion date: 08/16/18 <Travis Carlton - Last Filed: 08/27/18 11:52> Vital signs: Vital Signs 08/27/18 07:00 08/27/18 08:00 08/27/18 08:25 Temperature 97.8 F Pulse Rate 79 73 78 Respiratory Rate 16 Blood Pressure 115/75 115/75 Pulse Oximetry 100 99 97 08/27/18 09:00 08/27/18 10:00 08/27/18 11:00 Temperature Pulse Rate 78 78 75 Respiratory Rate Blood Pressure 120/80 Pulse Oximetry 100 100 08/27/18 11:53 08/27/18 12:00 08/27/18 12:07 Temperature 98.3 F Pulse Rate 82 82 Respiratory Rate 25 H Blood Pressure 111/88 110/84 Pulse Oximetry 98 100 100 08/27/18 13:00 08/27/18 13:15 08/27/18 13:28 Temperature Pulse Rate 84 86 Respiratory Rate Blood Pressure 108/75 Pulse Oximetry 100 99 100 08/27/18 14:00 08/27/18 15:00 08/27/18 16:00 Temperature 98.0 F Pulse Rate 88 82 82 Respiratory Rate Blood Pressure 105/84 113/77 Pulse Oximetry 99 100 99 08/27/18 16:01 08/27/18 17:00 08/27/18 17:19 Temperature Pulse Rate 83 83 82 Respiratory Rate Blood Pressure 113/77 115/88 112/88 Pulse Oximetry 100 100 100 08/27/18 18:00 08/27/18 18:01 08/27/18 19:00 Temperature Pulse Rate 83 83 91 H Respiratory Rate Blood Pressure 114/83 Pulse Oximetry 100 99 99 08/27/18 19:16 08/27/18 20:00 08/27/18 21:00 Temperature 98.1 F Pulse Rate 85 83 77 Respiratory Rate 20 Blood Pressure 120/82 112/86 115/81 Pulse Oximetry 98 100 100 08/27/18 21:40 08/27/18 22:00 08/27/18 23:00 Temperature Pulse Rate 82 87 Respiratory Rate Blood Pressure 111/89 Pulse Oximetry 98 100 68 L 08/27/18 23:07 08/28/18 00:00 08/28/18 00:01 Temperature 98.3 F Pulse Rate 82 83 82 Respiratory Rate 20 Blood Pressure 117/88 117/87 117/87 Pulse Oximetry 100 100 08/28/18 01:00 08/28/18 02:00 08/28/18 03:00 Temperature Pulse Rate 84 86 88 Respiratory Rate Blood Pressure 120/92 H 125/89 Pulse Oximetry 100 100 94 L 08/28/18 04:00 Temperature Pulse Rate 77 Respiratory Rate Blood Pressure 108/67 Pulse Oximetry 92 L Intake & Output 08/27/18 08/27/18 08/28/18 06:59 18:59 06:59 Intake Total 1799 / 1799 657 / 657 350 / 350 Output Total 1173 / 1173 660 / 660 Balance 626 / 626 -3 / -3 350 / 350 Weight 65.5 kg Intake: IV 600 / 600 300 / 300 350 / 350 Azithromycin Inj 500 MG In NS 250 / 250 Inj 250 ML @ 250 mls/hr IV.SIG Q24H [facility] Rx#:[id number] Maxipime Inj 2,000 MG In NS Inj 100 / 100 100 ML @ 200 mls/hr IV.SIG Q24H A[facility] Rx#:[id number] KCl 20 mEq Premix Inj 20 meq In 300 / 300 100 ml @ 50 mls/hr IV.SIG Q2H A[facility] Rx#:[id number] KCl 40 mEq Premix Inj 40 meq In 100 / 100 100 ml @ 25 mls/hr IV.SIG NOW ANA[facility] Rx#:[id number] Flagyl 500 MG Inj 100 ML @ 100 200 / 200 200 / 200 100 / 100 mls/hr IV.SIG Q8H ANA[facility] Rx#: [id number] Oral 0 / 0 Tube Feeding 399 / 399 297 / 297 Tube Irrigant 60 / 60 Water Bolus Amount 400 / 400 Free Water Amount 400 / 400 Output: Stool 200 / 200 0 / 0 Urine Amount (Catheter) 825 / 825 450 / 450 Indwelling Urethral Catheter 825 / 825 450 / 450 Chest Tube Drainage 148 / 148 210 / 210 Right Mid-Axillary Chest 148 / 148 210 / 210 Other: Date of Last Bowel Movement 08/26/18 08/27/18 08/28/18 - Urinary Catheter Management Indwelling Urethral Catheter Cath placed during this visit: no <Pedro López - Last Filed: 08/28/18 06:09> Assessment and Plan - Assessment (1) Acute kidney injury superimposed on CKD Code(s): N17.9 - Acute kidney failure, unspecified; N18.9 - Chronic kidney disease, unspecified Status: Acute Plan: Patient remains nonoliguric acute renal failure and chronic kidney disease. On free water. Diuretic stopped today. Creatinine is rising. Labs for today are pending. 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 Discussed this with patient. (2) Acute exacerbation of congestive heart failure Code(s): I50.9 - Heart failure, unspecified Status: Acute Plan: Cardiology following. She has cardiomyopathy EF 20%. (3) Severe sepsis Code(s): A41.9 - Sepsis, unspecified organism; R65.20 - Severe sepsis without septic shock Status: Acute Plan: Patient on Flagyl, Azithromycin, and Cefepime. (4) Pneumonia Code(s): J18.9 - Pneumonia, unspecified organism Status: Acute Plan: Patient is being treated with IV antibiotics (5) Hypokalemia Code(s): E87.6 - Hypokalemia Status: Acute Plan: K 2.7 yesterday, was given IV replacement. Monitor. Labs today are pending. <Travis Carlton - Last Filed: 08/27/18 11:52> - Assessment (1) Acute kidney injury superimposed on CKD Code(s): N17.9 - Acute kidney failure, unspecified; N18.9 - Chronic kidney disease, unspecified Status: Acute (2) Acute exacerbation of congestive heart failure Code(s): I50.9 - Heart failure, unspecified Status: Acute (3) Severe sepsis Code(s): A41.9 - Sepsis, unspecified organism; R65.20 - Severe sepsis without septic shock Status: Acute (4) Pneumonia Code(s): J18.9 - Pneumonia, unspecified organism Status: Acute (5) Hypokalemia Code(s): E87.6 - Hypokalemia Status: Acute - Plan Discharge Planning: patient was seen and examined on 08/27/18. Agree with above assessment and plan. Cardiorenal syndrome. Very poor prognosis. I do not believe dialysis is a good option. She will not tolerate renal replacement therapy <Pedro López - Last Filed: 08/28/18 06:09>
[2018-08-27] MEDS: Milrinone Inj 20 MG in Sodium Chlor 0.9% Inj 80 ML IV.CONT SCH (12:10)
[2018-08-27] MEDS: Azithromycin Inj 500 MG in Sodium Chlor 0.9% Inj 250 ML IV.SIG SCH (12:19)
[2018-08-27 12:20] LABS: Alanine Aminotransferase 53 U/L (10-53); Albumin 3.7 g/dL (3.4-5.0); Alkaline Phosphatase 109 U/L (45-117); Anion Gap 10 meq/L (5-15); Aspartate Aminotransferase 138 U/L (15-37); Blood Urea Nitrogen 138 mg/dL (7-18); Calcium 9.3 mg/dL (8.5-10.1); Carbon Dioxide 32.3 meq/L (21.0-32.0); Chloride 114 meq/L (98-107); Glomerular Filtration Rate 20 mL/min (>89); Glucose,Random 140 mg/dL (74-106); Potassium 3.7 meq/L (3.5-5.1); Total Protein 6.1 g/dL (6.4-8.2)
[2018-08-27 12:26] LABS: Sodium 156 meq/L (136-145)
--- NOTE | 2018-08-27 15:41 | P.PNCA ---
Subjective Interval history: Patient remains intubated at this time. She is awake and following commands. She denies any pain at this time. Medications and Allergies Allergies Allergy/AdvReac Type Severity Reaction Status Date / Time iodine Allergy Severe sneezing, Verified 08/15/18 08:37 chest tightness potassium iodide Allergy Severe sneezing, Verified 08/15/18 08:37 chest tightness povidone-iodine Allergy Severe sneezing, Verified 08/15/18 08:37 chest tightness sodium iodide Allergy Severe sneezing, Verified 08/15/18 08:37 chest tightness sodium iodide Allergy Severe sneezing, Verified 08/15/18 08:37 chest tightness sulfamethoxazole Allergy Intermediate abdominal Verified 08/15/18 08:37 pain trimethoprim Allergy Intermediate abdominal Verified 08/15/18 08:37 pain hydralazine Allergy Unknown Edema Verified 08/15/18 08:37 Statins Allergy Intermediate Hives Uncoded 08/15/18 08:37 Home Medications Medication Instructions Recorded Confirmed Type bumetanide 2 mg PO DAILY 05/21/18 08/15/18 History carvedilol 25 mg PO BID 05/21/18 08/15/18 History potassium chloride 20 meq PO DAILY 05/21/18 08/15/18 History spironolactone 50 mg PO DAILY 05/21/18 08/15/18 History warfarin 2 mg PO DAILY 08/15/18 08/15/18 History Active Medications: Active Medications Acetaminophen (Tylenol) 650 mg PO Q4H PRN PRN Reason: Temp > 100.4 Al Hydroxide/Mg Hydroxide (Milk Of Magnbryce Liq) 30 ml PO Q12H PRN PRN Reason: Mild Constipation Bisacodyl (Dulcolax Supp) 10 mg RECTAL DAILY PRN PRN Reason: SEVERE CONSITIPATION Azithromycin 500 mg/ Sodium (Chloride) 250 mls @ 250 mls/hr IV.SIG Q24H ANAHI Last Admin: 08/27/18 12:19 Dose: 200 mls/hr Metronidazole/Sodium Chloride (Flagyl 500 Mg Inj) 100 mls @ 100 mls/hr IV.SIG Q8H ANAHI Last Infusion: 08/27/18 12:11 Dose: Infused Norepinephrine Bitartrate (Levophed-Dextrose 4 Mg/250 Ml Drip) 4 mg in 250 mls @ 7.5 mls/hr IV.SIG TITRATE PRN; Protocol PRN Reason: Per Protocol Last Titration: 08/20/18 05:33 Dose: 0 mcg/min, 0 mls/hr Cefepime HCl 2,000 mg/ Sodium (Chloride) 100 mls @ 200 mls/hr IV.SIG Q24H [facility] Last Infusion: 08/27/18 12:10 Dose: Infused Diltiazem HCl 125 mg/ Sodium (Chloride) 125 mls @ 5 mls/hr IV.CONT TITRATE PRN ; Protocol PRN Reason: Per Protocol Last Titration: 08/23/18 19:00 Dose: 0 mg/hr, 0 mls/hr Milrinone Lactate 20 mg/ (Sodium Chloride) 100 mls @ 0.89 mls/hr IV.CONT .Q24H ANAHI; Protocol Last Admin: 08/27/18 12:10 Dose: Not Given Midazolam HCl (Versed Inj) 100 mg in 100 mls @ 2 mls/hr IV.CONT TITRATE PRN; Protocol PRN Reason: See protocol Last Titration: 08/20/18 13:30 Dose: 0 mg/hr, 0 mls/hr Lactulose (Lactulose Liq) 30 ml PO DAILY PRN PRN Reason: SEVERE CONSITIPATION Metoprolol Tartrate (Lopressor) 12.5 mg PO TID [facility] Last Admin: 08/27/18 12:19 Dose: 12.5 mg Miscellaneous (Pill Splitter) 1 each OTHER UNSCH PRN PRN Reason: SEE LABEL COMMENTS Ondansetron HCl (Zofran Inj) 4 mg IV.PUSH Q6H PRN PRN Reason: NAUSEA OR VOMITING Last Admin: 08/16/18 14:05 Dose: 4 mg Ondansetron HCl (Zofran Odt) 4 mg PO Q6H PRN PRN Reason: NAUSEA OR VOMITING Potassium Chloride (K-Dur) 20 meq PO DAILY [facility] Last Admin: 08/27/18 08:57 Dose: 20 meq Promethazine HCl (Phenergan) 25 mg PO Q6H PRN PRN Reason: NAUSEA OR VOMITING Promethazine HCl (Phenergan Supp) 25 mg RECTAL Q6H PRN PRN Reason: NAUSEA OR VOMITING Senna/Docusate Sodium (Aleyda-Colace) 1 tab PO BID [facility] Last Admin: 08/27/18 08:57 Dose: 1 tab Sennosides (Senokot) 17.2 mg PO Q12H PRN PRN Reason: Moderate Constipation Sodium Chloride (Ns Flush) 2 ml IV.FLUSH BID [facility] Last Admin: 08/27/18 08:58 Dose: 2 ml Sodium Chloride (Ns Flush) 2 ml IV.FLUSH UNSCH PRN PRN Reason: FLUSH AFTER USING IV ACCESS Terbutaline Sulfate (Brethine Inj) 1 mg SQ UNSCH PRN PRN Reason: For Extravasation Warfarin Sodium (Coumadin) 1 mg PO DAILY@1600 [facility] Last Admin: 08/26/18 16:55 Dose: 1 mg Physical Exam Vital signs: Vital Signs 08/26/18 15:46 08/26/18 16:00 08/26/18 16:01 Temperature 97.1 F L Pulse Rate 67 66 Respiratory Rate 17 Blood Pressure 117/81 Pulse Oximetry 100 98 100 08/26/18 17:00 08/26/18 18:00 08/26/18 19:00 Temperature Pulse Rate 67 71 72 Respiratory Rate Blood Pressure 118/80 Pulse Oximetry 99 99 98 08/26/18 19:17 08/26/18 20:00 08/26/18 21:00 Temperature 98.2 F Pulse Rate 71 74 Respiratory Rate 16 16 Blood Pressure 117/86 Pulse Oximetry 100 98 100 08/26/18 22:00 08/26/18 23:00 08/27/18 00:00 Temperature 97.5 F L Pulse Rate 77 65 77 Respiratory Rate Blood Pressure 116/88 Pulse Oximetry 99 100 99 08/27/18 00:01 08/27/18 00:15 08/27/18 01:00 Temperature Pulse Rate 70 68 Respiratory Rate 18 Blood Pressure 113/81 Pulse Oximetry 100 100 100 08/27/18 02:00 08/27/18 03:00 08/27/18 03:43 Temperature Pulse Rate 66 72 Respiratory Rate 14 Blood Pressure 104/74 Pulse Oximetry 99 100 100 08/27/18 04:00 08/27/18 04:07 08/27/18 05:00 Temperature 98 F Pulse Rate 75 74 78 Respiratory Rate 16 Blood Pressure 106/72 Pulse Oximetry 100 96 100 08/27/18 06:00 08/27/18 07:00 08/27/18 08:00 Temperature 97.8 F Pulse Rate 79 79 73 Respiratory Rate 16 Blood Pressure 107/86 115/75 Pulse Oximetry 99 100 99 08/27/18 08:25 08/27/18 09:00 08/27/18 10:00 Temperature Pulse Rate 78 78 78 Respiratory Rate Blood Pressure 115/75 120/80 Pulse Oximetry 97 100 08/27/18 11:00 08/27/18 11:53 08/27/18 12:00 Temperature 98.3 F Pulse Rate 75 82 82 Respiratory Rate Blood Pressure 111/88 110/84 Pulse Oximetry 100 98 100 08/27/18 12:07 08/27/18 13:00 08/27/18 13:15 Temperature Pulse Rate 84 86 Respiratory Rate 25 H Blood Pressure 108/75 Pulse Oximetry 100 100 99 08/27/18 13:28 08/27/18 14:00 Temperature Pulse Rate 88 Respiratory Rate Blood Pressure 105/84 Pulse Oximetry 100 99 Intake & Output 08/26/18 08/27/18 08/27/18 18:59 06:59 18:59 Intake Total 1884 / 1884 1799 / 1799 200 / 200 Output Total 1310 / 1310 1173 / 1173 Balance 574 / 574 626 / 626 200 / 200 Weight 65.5 kg Intake: IV 450 / 450 600 / 600 200 / 200 Azithromycin Inj 500 MG In NS 250 / 250 Inj 250 ML @ 250 mls/hr IV.SIG Q24H [facility] Rx#:[id number] Maxipime Inj 2,000 MG In NS Inj 100 / 100 100 / 100 100 ML @ 200 mls/hr IV.SIG Q24H ANAHI Rx#:[id number] KCl 20 mEq Premix Inj 20 meq In 300 / 300 100 ml @ 50 mls/hr IV.SIG Q2H ANAHI Rx#:[id number] KCl 40 mEq Premix Inj 40 meq In 100 / 100 100 ml @ 25 mls/hr IV.SIG NOW ANAHI Rx#:[id number] Flagyl 500 MG Inj 100 ML @ 100 100 / 100 200 / 200 100 / 100 mls/hr IV.SIG Q8H ANAHI Rx#: [id number] Tube Feeding 234 / 234 399 / 399 Water Bolus Amount 600 / 600 400 / 400 Free Water Amount 600 / 600 400 / 400 Output: Stool 200 / 200 Urine Amount (Catheter) 1050 / 1050 825 / 825 Indwelling Urethral Catheter 1050 / 1050 825 / 825 Chest Tube Drainage 260 / 260 148 / 148 Right Mid-Axillary Chest 260 / 260 148 / 148 Other: Date of Last Bowel Movement 08/26/18 08/26/18 08/27/18 # Incontinent Bowel Movements 2 - Constitutional no acute distress - Routine HEENT Exam Head: Present: normocephalic Eye: Present: PERRL ENT: Present: mucous membranes moist - Routine Neck Exam Present: supple - Routine Respiratory Exam Present: patient mechanically ventilated, crackles Comments: crackles bilateral lower lobes - Routine Cardiovascular Exam Present: S1, S2. Absent: murmur, gallop, rubs - Routine Abdominal Exam Present: normoactive bowel sounds - Routine Extremities Exam Present: full ROM, pulses intact, normal capillary refill. Absent: cyanosis, clubbing, edema - Routine Skin Exam Present: intact - Routine Neurological Exam Present: alert, moving all extremities - Detailed Neurological Exam: Coma Scale Eye Opening: Spontaneous Motor Response: Obey commands - Routine Psychiatric Exam Present: unable to assess - Urinary Catheter Management Indwelling Urethral Catheter Cath placed during this visit: yes Reason for continuing: Hourly intake/output Insertion date: 08/16/18 Results 08/27/18 04:55 08/27/18 11:00 Cardiac Enzymes 08/27/18 08/27/18 Range/Units 04:55 11:00 AST 138 H (15-37) U/L B-Natriuretic Peptide Greater than 5000 H (0-100) pg/mL Coagulation 08/26/18 08/27/18 08/27/18 Range/Units 04:30 04:55 04:55 PT 27.9 H 21.1 H (9.8-11.6) sec APTT 43.8 H 37.5 H (23.4-31.7) sec B-Natriuretic Peptide Greater than 5000 H (0-100) pg/mL CBC 08/26/18 08/27/18 Range/Units 04:30 04:55 WBC 14.2 H 14.4 H (4.0-11.0) th/mm3 RBC 3.84 L 4.30 (4.00-5.30) mil/mm3 Hgb 9.2 L 10.2 L (11.6-15.3) gm/dL Hct 27.6 L 30.4 L (35.0-46.0) % Plt Count 72 L 81 L (150-450) th/mm3 Neut # (Auto) 10.7 H (1.8-7.7) th/mm3 Lymph # (Auto) 0.9 L (1.0-4.8) th/mm3 [place] # (Auto) 2.6 H (0.0-0.9) th/mm3 Eos # (Auto) 0.0 (0.0-0.4) th/mm3 Baso # (Auto) 0.0 (0.0-0.2) th/mm3 Comprehensive Metabolic Panel 08/26/18 08/26/18 08/27/18 Range/Units 04:30 16:54 11:00 Sodium 158 H* 156 H* (136-145) meq/L Potassium 3.0 L 2.7 L* 3.7 D (3.5-5.1) meq/L Chloride 115 H 114 H (98-107) meq/L Carbon Dioxide 34.2 H 32.3 H (21.0-32.0) meq/L BUN 132 H 138 H (7-18) mg/dL Creatinine 3.12 H 2.83 H (0.50-1.00) mg/dL Calcium 9.0 9.3 (8.5-10.1) mg/dL Direct Bilirubin 6.2 H (0.0-0.2) mg/dL Indirect Bilirubin 2.9 H (0.0-0.8) mg/dL AST 138 H (15-37) U/L ALT 53 (10-53) U/L Alkaline Phosphatase 109 (45-117) U/L Total Protein 6.1 L (6.4-8.2) g/dL Albumin 3.7 (3.4-5.0) g/dL 08/27/18 Range/Units 11:00 Sodium (136-145) meq/L Potassium (3.5-5.1) meq/L Chloride (98-107) meq/L Carbon Dioxide (21.0-32.0) meq/L BUN (7-18) mg/dL Creatinine (0.50-1.00) mg/dL Calcium (8.5-10.1) mg/dL Direct Bilirubin Cancelled (0.0-0.2) mg/dL Indirect Bilirubin Cancelled (0.0-0.8) mg/dL AST (15-37) U/L ALT (10-53) U/L Alkaline Phosphatase (45-117) U/L Total Protein (6.4-8.2) g/dL Albumin (3.4-5.0) g/dL Intake and Output 08/27/18 08/27/18 08/27/18 06:59 14:59 22:59 Intake Total 1399 / 1399 200 / 200 Output Total 1173 / 1173 Balance 226 / 226 200 / 200 Intake: IV 400 / 400 200 / 200 Maxipime Inj 2,000 MG In NS Inj 100 / 100 100 ML @ 200 mls/hr IV.SIG Q24H [facility]NA[facility] Rx#:[id number] KCl 20 mEq Premix Inj 20 meq In 300 / 300 100 ml @ 50 mls/hr IV.SIG Q2H [facility]NA[facility] Rx#:[id number] Flagyl 500 MG Inj 100 ML @ 100 100 / 100 100 / 100 mls/hr IV.SIG Q8H ANA[facility] Rx#: [id number] Tube Feeding 399 / 399 Water Bolus Amount 400 / 400 Free Water Amount 200 / 200 Output: Stool 200 / 200 Urine Amount (Catheter) 825 / 825 Indwelling Urethral Catheter 825 / 825 Chest Tube Drainage 148 / 148 Right Mid-Axillary Chest 148 / 148 Other: Date of Last Bowel Movement 08/26/18 08/27/18 Weight 65.5 kg - Imaging and Cardiology Imaging: Impressions Chest X-Ray 08/27/18 00:00 CONCLUSION: Nasogastric tube sidehole is not across the GE junction ET tube is just above the josh Compensated cardiomegaly with minimal consolidative changes left base Assessment and Plan - Assessment (1) Acute exacerbation of CHF (congestive heart failure) Code(s): I50.9 - Heart failure, unspecified Status: Acute (2) Severe sepsis Code(s): A41.9 - Sepsis, unspecified organism; R65.20 - Severe sepsis without septic shock Status: Acute (3) PEA (Pulseless electrical activity) Code(s): I46.9 - Cardiac arrest, cause unspecified Status: Resolved (4) Fluid overload Code(s): E87.70 - Fluid overload, unspecified Status: Acute (5) Acute worsening of stage 3 chronic kidney disease Code(s): N18.3 - Chronic kidney disease, stage 3 (moderate) Status: Acute (6) Anemia Code(s): D64.9 - Anemia, unspecified Status: Acute (7) Pacemaker Code(s): Z95.0 - Presence of cardiac pacemaker Status: Acute (8) Supraventricular tachycardia Code(s): I47.1 - Supraventricular tachycardia Status: Acute (9) Pneumonia Code(s): J18.9 - Pneumonia, unspecified organism Status: Acute (10) Cardiomyopathy Code(s): I42.9 - Cardiomyopathy, unspecified Status: Acute (11) Pulmonary edema Code(s): J81.1 - Chronic pulmonary edema Status: Acute (12) Lactic acidemia Code(s): E87.2 - Acidosis Status: Acute (13) Hypertension Code(s): I10 - Essential (primary) hypertension Status: Acute (14) Cardiogenic shock Code(s): R57.0 - Cardiogenic shock Status: Acute - Plan Continue tx for CHF. Continue with current ICU treatment plan. Continue Coumadin for anticoagulation. Nephrology evaluation and treatment in progress. Palliative care evaluation in progress. We will continue to monitor the patient during her hospitalization and follow up in our office after discharge from the hospital. The patient was seen and evaluated by Dr. Mae who participated in care, management and decision making. - Attending Attestation Patient seen and examined. I reviewed and agree with the evaluation and plan as presented. Continue tx for CHF. Monitor in ICU. Extubated today. (1) Acute exacerbation of CHF (congestive heart failure) Qualifiers: Heart failure type: systolic Qualified Code(s): I50.23 - Acute on chronic systolic (congestive) heart failure (4) Fluid overload Qualifiers: Hypervolemia type: unspecified Qualified Code(s): E87.70 - Fluid overload, unspecified
[2018-08-27 16:19] LABS: ABG Base Excess 3.5 mmol/L (-2-2); ABG PCO2 35 mmHg (38-42); ABG PO2 161 mmHG (61-120)
--- NOTE | 2018-08-27 18:18 | P.PNPAL ---
Reason for Visit Reason for visit: a. To assist with evaluation and management of symptoms including: Shortness of breath, at risk for pain, debility b. To assist medical decision maker(s) with: better understanding of current medical conditions; weighing benefits/burdens of medical treatment options; making medical treatment decisions. Subjective Subjective/Interval History: Follow-up medically necessary for symptom management and family support. Patient seen and examined in the presence of his spouse and brother was visiting from [facility]. Patient remains in MICU. Patient was medically extubated this afternoon to O2 3 L nasal cannula. Pigtail chest tube to right lateral chest wall. Patient is lethargic, partially oriented to self, place and partly situation. Patient does not recall why she is in the hospital. She currently denies pain. Patient repeatedly asking for water. Laboratory workup on 08/27/18 revealing WBC 14.4, hemoglobin 10.2, hematocrit 30.4, platelet count 81, sodium 156, potassium 3.7, BUN/creatinine 1 3 8/2.83, random glucose 140, total bilirubin 9.1, AST 138, ALT 53, BNP greater than 5000 , total protein 6.1, albumin 3.7. Blood cultures collected today, culture pending. Physical therapy following, recommended PT and rehab. Brief discussion with patient in the presence of a and brother. Provided medical update status. Readdressed CODE STATUS. Patient would like to be reintubated if she is in respiratory distress again as well as being resuscitated. Discussed patient's ongoing comorbidities inclusive of her cardiac function and renal function. Patient also stated that she did not follow-up with the heart transplant physician because she felt it was a big decision and she wanted to speak to her brother, and sister first. Palliative care will continue discussions with patient when she is more coherent and fully understanding her medical condition. Case discussed with bedside RN, and Dr. Jessica Diamond. Family/Friend Interactions: See interval note. . Advance Directives Living Will: Never completed Health Care Surrogate: Never completed Durable Power of [employer]ing: Never completed Health Care Surrogate Name and Number: HCP: Rey Willis [phone] Documented care wishes:: Never completed advanced directives. . Objective Vital Signs: Vital Signs 08/26/18 18:00 08/26/18 19:00 08/26/18 19:17 Temperature Pulse Rate 71 72 Respiratory Rate 16 Blood Pressure 118/80 Pulse Oximetry 99 98 100 08/26/18 20:00 08/26/18 21:00 08/26/18 22:00 Temperature 98.2 F Pulse Rate 71 74 77 Respiratory Rate 16 Blood Pressure 117/86 116/88 Pulse Oximetry 98 100 99 08/26/18 23:00 08/27/18 00:00 08/27/18 00:01 Temperature 97.5 F L Pulse Rate 65 77 70 Respiratory Rate Blood Pressure 113/81 Pulse Oximetry 100 99 100 08/27/18 00:15 08/27/18 01:00 08/27/18 02:00 Temperature Pulse Rate 68 66 Respiratory Rate 18 Blood Pressure 104/74 Pulse Oximetry 100 100 99 08/27/18 03:00 08/27/18 03:43 08/27/18 04:00 Temperature 98 F Pulse Rate 72 75 Respiratory Rate 14 16 Blood Pressure Pulse Oximetry 100 100 100 08/27/18 04:07 08/27/18 05:00 08/27/18 06:00 Temperature Pulse Rate 74 78 79 Respiratory Rate Blood Pressure 106/72 107/86 Pulse Oximetry 96 100 99 08/27/18 07:00 08/27/18 08:00 08/27/18 08:25 Temperature 97.8 F Pulse Rate 79 73 78 Respiratory Rate 16 Blood Pressure 115/75 115/75 Pulse Oximetry 100 99 97 08/27/18 09:00 08/27/18 10:00 08/27/18 11:00 Temperature Pulse Rate 78 78 75 Respiratory Rate Blood Pressure 120/80 Pulse Oximetry 100 100 08/27/18 11:53 08/27/18 12:00 08/27/18 12:07 Temperature 98.3 F Pulse Rate 82 82 Respiratory Rate 25 H Blood Pressure 111/88 110/84 Pulse Oximetry 98 100 100 08/27/18 13:00 08/27/18 13:15 08/27/18 13:28 Temperature Pulse Rate 84 86 Respiratory Rate Blood Pressure 108/75 Pulse Oximetry 100 99 100 08/27/18 14:00 08/27/18 15:00 08/27/18 16:00 Temperature 98.0 F Pulse Rate 88 82 82 Respiratory Rate Blood Pressure 105/84 113/77 Pulse Oximetry 99 100 99 08/27/18 16:01 Temperature Pulse Rate 83 Respiratory Rate Blood Pressure 113/77 Pulse Oximetry 100 Intake & Output 08/26/18 08/27/18 08/27/18 18:59 06:59 18:59 Intake Total 1884 / 1884 1799 / 1799 200 / 200 Output Total 1310 / 1310 1173 / 1173 Balance 574 / 574 626 / 626 200 / 200 Weight 65.5 kg Intake: IV 450 / 450 600 / 600 200 / 200 Azithromycin Inj 500 MG In NS 250 / 250 Inj 250 ML @ 250 mls/hr IV.SIG Q24H ANAHI Rx#:[id number] Maxipime Inj 2,000 MG In NS Inj 100 / 100 100 / 100 100 ML @ 200 mls/hr IV.SIG Q24H ANAHI Rx#:[id number] KCl 20 mEq Premix Inj 20 meq In 300 / 300 100 ml @ 50 mls/hr IV.SIG Q2H ANAHI Rx#:[id number] KCl 40 mEq Premix Inj 40 meq In 100 / 100 100 ml @ 25 mls/hr IV.SIG NOW ANAHI Rx#:[id number] Flagyl 500 MG Inj 100 ML @ 100 100 / 100 200 / 200 100 / 100 mls/hr IV.SIG Q8H ANAHI Rx#: [id number] Tube Feeding 234 / 234 399 / 399 Water Bolus Amount 600 / 600 400 / 400 Free Water Amount 600 / 600 400 / 400 Output: Stool 200 / 200 Urine Amount (Catheter) 1050 / 1050 825 / 825 Indwelling Urethral Catheter 1050 / 1050 825 / 825 Chest Tube Drainage 260 / 260 148 / 148 Right Mid-Axillary Chest 260 / 260 148 / 148 Other: Date of Last Bowel Movement 08/26/18 08/26/18 08/27/18 # Incontinent Bowel Movements 2 Physical Exam: CONSTITUTIONAL/GENERAL: This is an adequately nourished patient, in no acute distress. TUBES/LINES/DRAINS: TLC left IJ, femoral A-line, right chest tube, PIV, SCDs, nasal cannula SKIN: No jaundice, rashes, or lesions. Healed scar to left upper chest wall. Normothermic. EYES: Spontaneously opening eyes, tracking. ENT: Nose without bleeding or purulent drainage. CARDIOVASCULAR: Regular rate and rhythm. AICD to right upper chest wall. RESPIRATORY/CHEST: Symmetric, unlabored respirations on vent. Diminished breath sounds to the right side. Right chest tube to suction GASTROINTESTINAL: Abdomen soft, nondistended. No guarding. Bowel sounds present. GENITOURINARY: Without palpable bladder distension. Bradley catheter in place. MUSCULOSKELETAL: No mottling or clubbing. NEUROLOGICAL: Lethargic, partially oriented. Follow simple commands with all 4 extremities. Very weak. PSYCHIATRIC: No anxiety/depression. Calm . Diagnostic Tests Laboratory: Laboratory Results - last 72 hr 08/24/18 08/25/18 08/25/18 15:25 03:04 03:04 WBC 12.7 H RBC 3.98 L Hgb 9.3 L Hct 29.9 L MCV 75.1 L MCH 23.5 L MCHC 31.3 L RDW 20.0 H Plt Count 81 L MPV 9.4 Prelim Diff (Auto) Manual diff required Neut % (Auto) Lymph % (Auto) [place] % (Auto) Eos % (Auto) Baso % (Auto) Neut # (Auto) Lymph # (Auto) [place] # (Auto) Eos # (Auto) Baso # (Auto) WBC Differential Manual diff final Seg Neuts % (Manual) 79 H Band Neuts % (Manual) 3 Lymphocytes % (Manual) 7 L Monocytes % (Manual) 9 H Eosinophils % (Manual) Metamyelocytes % (Man) 2 H Abs Neuts (Manual) 10.7 H Nucleated RBCs/100 WBC 2 H Differential Comment . Platelet Estimate Low L Platelet Morphology Enlarged H Target Cells 1+ H Ovalocytes 1+ H Acanthocytes (Spur) 1+ H Keratocytes 1+ H PT 21.5 H 34.1 H D INR 2.1 3.4 APTT 38.0 H 45.6 H Puncture Site Patient Temperature O2 Saturation ABG pH ABG pCO2 ABG pO2 ABG HCO3 ABG O2 Content ABG Base Excess ABG Methemoglobin Brandt Test Hemoglobin Carboxyhemoglobin O2 Delivery Device Liter Flow Vent Setting Inspired O2 Critical Value Sodium Potassium Chloride Carbon Dioxide Anion Gap BUN Creatinine Estimated GFR POC Glucose Random Glucose Calcium Magnesium Total Bilirubin Direct Bilirubin Indirect Bilirubin AST ALT Alkaline Phosphatase B-Natriuretic Peptide Total Protein Albumin 08/25/18 08/25/18 08/25/18 04:42 04:42 11:11 WBC RBC Hgb Hct MCV MCH MCHC RDW Plt Count MPV Prelim Diff (Auto) Neut % (Auto) Lymph % (Auto) [place] % (Auto) Eos % (Auto) Baso % (Auto) Neut # (Auto) Lymph # (Auto) [place] # (Auto) Eos # (Auto) Baso # (Auto) WBC Differential Seg Neuts % (Manual) Band Neuts % (Manual) Lymphocytes % (Manual) Monocytes % (Manual) Eosinophils % (Manual) Metamyelocytes % (Man) Abs Neuts (Manual) Nucleated RBCs/100 WBC Differential Comment Platelet Estimate Platelet Morphology Target Cells Ovalocytes Acanthocytes (Spur) Keratocytes PT INR APTT Puncture Site Patient Temperature O2 Saturation ABG pH ABG pCO2 ABG pO2 ABG HCO3 ABG O2 Content ABG Base Excess ABG Methemoglobin Brandt Test Hemoglobin Carboxyhemoglobin O2 Delivery Device Liter Flow Vent Setting Inspired O2 Critical Value Sodium 157 H* 155 H Potassium 4.0 D 3.7 Chloride 115 H 114 H Carbon Dioxide 18.1 L D 33.4 H D Anion Gap 24 H 8 BUN 108 H 113 H Creatinine 3.04 H 3.07 H Estimated GFR 19 L 18 L POC Glucose 81 Random Glucose 87 178 H Calcium 9.6 9.5 Magnesium Total Bilirubin Direct Bilirubin Indirect Bilirubin AST ALT Alkaline Phosphatase B-Natriuretic Peptide Total Protein Albumin 08/26/18 08/26/18 08/26/18 04:30 04:30 04:30 WBC 14.2 H RBC 3.84 L Hgb 9.2 L Hct 27.6 L MCV 71.7 L MCH 23.9 L MCHC 33.4 RDW 19.7 H Plt Count 72 L MPV 9.8 Prelim Diff (Auto) Slide review pending Neut % (Auto) 75.5 H Lymph % (Auto) 6.1 L [place] % (Auto) 18.2 H Eos % (Auto) 0.0 Baso % (Auto) 0.2 Neut # (Auto) 10.7 H Lymph # (Auto) 0.9 L [place] # (Auto) 2.6 H Eos # (Auto) 0.0 Baso # (Auto) 0.0 WBC Differential Manual diff final Seg Neuts % (Manual) 77 H Band Neuts % (Manual) 3 Lymphocytes % (Manual) 5 L Monocytes % (Manual) 15 H Eosinophils % (Manual) Metamyelocytes % (Man) Abs Neuts (Manual) 11.4 H Nucleated RBCs/100 WBC 1 H Differential Comment . Platelet Estimate Low L Platelet Morphology Enlarged H Target Cells 1+ H Ovalocytes 1+ H Acanthocytes (Spur) 1+ H Keratocytes 1+ H PT 27.9 H INR 2.8 APTT 43.8 H Puncture Site Patient Temperature O2 Saturation ABG pH ABG pCO2 ABG pO2 ABG HCO3 ABG O2 Content ABG Base Excess ABG Methemoglobin Brandt Test Hemoglobin Carboxyhemoglobin O2 Delivery Device Liter Flow Vent Setting Inspired O2 Critical Value Sodium 158 H* Potassium 3.0 L Chloride 115 H Carbon Dioxide 34.2 H Anion Gap 9 BUN 132 H Creatinine 3.12 H Estimated GFR 18 L POC Glucose Random Glucose 168 H Calcium 9.0 Magnesium Total Bilirubin Direct Bilirubin Indirect Bilirubin AST ALT Alkaline Phosphatase B-Natriuretic Peptide Total Protein Albumin 08/26/18 08/27/18 08/27/18 16:54 04:55 04:55 WBC 14.4 H RBC 4.30 Hgb 10.2 L Hct 30.4 L MCV 70.7 L MCH 23.7 L MCHC 33.5 RDW 20.2 H Plt Count 81 L MPV 10.8 Prelim Diff (Auto) Manual diff required Neut % (Auto) Lymph % (Auto) [place] % (Auto) Eos % (Auto) Baso % (Auto) Neut # (Auto) Lymph # (Auto) [place] # (Auto) Eos # (Auto) Baso # (Auto) WBC Differential Manual diff final Seg Neuts % (Manual) 77 H Band Neuts % (Manual) 1 Lymphocytes % (Manual) 11 Monocytes % (Manual) 10 H Eosinophils % (Manual) 1 Metamyelocytes % (Man) Abs Neuts (Manual) 11.2 H Nucleated RBCs/100 WBC 3 H Differential Comment . Platelet Estimate Low L Platelet Morphology Normal Target Cells 1+ H Ovalocytes 1+ H Acanthocytes (Spur) 1+ H Keratocytes 1+ H PT 21.1 H INR 2.1 APTT 37.5 H Puncture Site Patient Temperature O2 Saturation ABG pH ABG pCO2 ABG pO2 ABG HCO3 ABG O2 Content ABG Base Excess ABG Methemoglobin Brandt Test Hemoglobin Carboxyhemoglobin O2 Delivery Device Liter Flow Vent Setting Inspired O2 Critical Value Sodium Potassium 2.7 L* Chloride Carbon Dioxide Anion Gap BUN Creatinine Estimated GFR POC Glucose Random Glucose Calcium Magnesium 2.2 Total Bilirubin Direct Bilirubin Indirect Bilirubin AST ALT Alkaline Phosphatase B-Natriuretic Peptide Total Protein Albumin 08/27/18 08/27/18 08/27/18 04:55 11:00 11:00 WBC RBC Hgb Hct MCV MCH MCHC RDW Plt Count MPV Prelim Diff (Auto) Neut % (Auto) Lymph % (Auto) [place] % (Auto) Eos % (Auto) Baso % (Auto) Neut # (Auto) Lymph # (Auto) [place] # (Auto) Eos # (Auto) Baso # (Auto) WBC Differential Seg Neuts % (Manual) Band Neuts % (Manual) Lymphocytes % (Manual) Monocytes % (Manual) Eosinophils % (Manual) Metamyelocytes % (Man) Abs Neuts (Manual) Nucleated RBCs/100 WBC Differential Comment Platelet Estimate Platelet Morphology Target Cells Ovalocytes Acanthocytes (Spur) Keratocytes PT INR APTT Puncture Site Patient Temperature O2 Saturation ABG pH ABG pCO2 ABG pO2 ABG HCO3 ABG O2 Content ABG Base Excess ABG Methemoglobin Brandt Test Hemoglobin Carboxyhemoglobin O2 Delivery Device Liter Flow Vent Setting Inspired O2 Critical Value Sodium 156 H* Potassium 3.7 D Chloride 114 H Carbon Dioxide 32.3 H Anion Gap 10 BUN 138 H Creatinine 2.83 H Estimated GFR 20 L POC Glucose Random Glucose 140 H Calcium 9.3 Magnesium Total Bilirubin 9.1 H Cancelled Direct Bilirubin 6.2 H Cancelled Indirect Bilirubin 2.9 H Cancelled AST 138 H ALT 53 Alkaline Phosphatase 109 B-Natriuretic Peptide Greater than 5000 H Total Protein 6.1 L Albumin 3.7 08/27/18 08/27/18 11:10 15:55 WBC RBC Hgb Hct MCV MCH MCHC RDW Plt Count MPV Prelim Diff (Auto) Neut % (Auto) Lymph % (Auto) [place] % (Auto) Eos % (Auto) Baso % (Auto) Neut # (Auto) Lymph # (Auto) [place] # (Auto) Eos # (Auto) Baso # (Auto) WBC Differential Seg Neuts % (Manual) Band Neuts % (Manual) Lymphocytes % (Manual) Monocytes % (Manual) Eosinophils % (Manual) Metamyelocytes % (Man) Abs Neuts (Manual) Nucleated RBCs/100 WBC Differential Comment Platelet Estimate Platelet Morphology Target Cells Ovalocytes Acanthocytes (Spur) Keratocytes PT INR APTT Puncture Site Art line Art line Patient Temperature 98.6 98.6 O2 Saturation 96 97 ABG pH 7.50 H 7.50 H ABG pCO2 37 L 35 L ABG pO2 138 H 161 H ABG HCO3 28 H 27 H ABG O2 Content 13.1 13.3 ABG Base Excess 4.9 H 3.5 H ABG Methemoglobin 1.5 1.3 Brandt Test Present Hemoglobin 9.5 L 9.6 L Carboxyhemoglobin 1.1 1.3 O2 Delivery Device Ventilator Nasal cannula Liter Flow 2.00 Vent Setting Cpap 5/5ps Inspired O2 30 28 Critical Value No No Sodium Potassium Chloride Carbon Dioxide Anion Gap BUN Creatinine Estimated GFR POC Glucose Random Glucose Calcium Magnesium Total Bilirubin Direct Bilirubin Indirect Bilirubin AST ALT Alkaline Phosphatase B-Natriuretic Peptide Total Protein Albumin Result Diagrams: 08/28/18 05:00 08/28/18 05:00 Imaging: Head CT 08/17/18 00:00 CONCLUSION: 1. No acute intracranial abnormality demonstrated. 2. 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 . Chest X-Ray 08/27/18 00:00 CONCLUSION: Nasogastric tube sidehole is not across the GE junction ET tube is just above the josh Compensated cardiomegaly with minimal consolidative changes left base Procedures: 08/15/18-placement of left IJ central line 08/16/18-endotracheal intubation after PEA arrest 08/16/18-bedside thoracentesis with removal of 950 mL's of slightly cloudy, yellow colored fluid. 08/16/18-right femoral arterial line placement 08/20/18-right chest tube placement 08/27/18-medically extubated . Assessment and Plan - Disease Oriented Problem List (1) Severe sepsis (2) Cardiogenic shock (3) Systolic heart failure (4) Cardiomyopathy (5) Pulmonary edema (6) Pneumonia (7) Lactic acidemia (8) Supratherapeutic INR (9) Hypertension - Symptom Scale (1) Shortness of breath 0-10 Scale: Unable to quantify Comment: History of congestive heart failure, chronic kidney disease and recent PEA (2) At risk for pain Comment: Patient went into PEA arrest on 08/16/18 (3) Debility 0-10 Scale: Unable to quantify Comment: Progressive. Patient has had multiple hospitalizations in the past 12 months. Pertinent Non-Medical Issues: Psychosocial: Patient is originally from [facility]. She moved to [place] in 2014. Patient worked in [employer] to [employer] 2007. 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 Patient has been to her current for 43 years. They have 2 adult sons, Rey Hodge who lives locally and another son who lives in [facility]. She has 6 grandchildren. Spiritual: Patient is Muslim-open to ostomy nurse visits. Integration Consultant Thomas has visited with spouse before. Legal: Never completed advanced directives. Ethical issues impacting care: None identified at this time . Important Contacts: Spouse-Rey Funes [phone] Son-Rey Funes [phone] Daughter-Tracey FunesCsxlb-[phone] Prognosis: Mrs. Funes is a 67-year-old old with a medical history significant for congestive heart failure with an ejection fraction less than 20%, coronary artery disease, ventricular tachycardia with a [employer] ICD, pulmonary embolism , chronic kidney disease stage III, hypertension, cardiovascular accident with residual left-sided weakness in 2017. Patient presented to the emergency room on 08/15/2018 for further evaluation of progressive weakness, shortness of breath, lower extremity edema and productive cough. Patient's hospital course complicated with PEA cardiac arrest, worsening lung function requiring chest tube placement, and worsening renal function despite aggressive diuresis. Given multiple ongoing comorbidities, patient remains at high risk for further complications, deterioration and decline. . Code Status: Full Code Plan: PLAN: Legal decision maker: Patient medically extubated on 08/27/18. She is partially oriented and lacks insight regarding his medical condition at this time. She is . According to [place] statute patient's spouse Rey Funes Sr will serve as patient's healthcare proxy decision-maker. Goals: Patient medically extubated today. She is partially oriented. Patient would like to be reintubated if need be. Patient's would like to continue with aggressive treatment at this time. He is hopeful that patient remains medically extubated. Palliative care will continue with goals of medical care discussions with patient and her spouse. CODE STATUS: Full code SYMPTOMS: * Shortness of breath: Patient has history of CHF, and currently has pneumonia and acute on chronic kidney failure. Intubated on 08/16/18 after PEA arrest. Patient has had thoracentesis and has recurrent pleural effusions requiring thoracotomy and placement of right chest tubes. Patient is on antibiotics. Patient medically extubated to O2 3 L nasal cannula on 08/27/18. O2 saturations in the mid to high 90s. * At risk for pain: Patient is currently bedbound and had PEA arrest requiring CPR on 08/16/17 and intubation. Patient has had multiple procedures done including thoracentesis, thoracotomy with chest tube placement, central line placement and arterial line placement which can all be sources of pain. Patient currently denies pain. * Debility. Progressive. Patient has multiple ongoing comorbidities. She has had multiple (x7) hospitalizations in the past year. Patient has been increasingly getting weak due to her failing heart. Patient will most likely continue to deteriorate given her heart condition, she will most likely be not able to effectively participate in physical therapy/rehabilitation. Physical therapy consulted, recommending PT at rehab. Palliative care will continue to follow the patient during hospital course as condition evolves, to assist patient/decision-maker with understanding of their medical conditions, weighing benefits/burdens of treatment options, for clarification of goals of treatment. Additionally will assist with any symptoms of palliative concern Attestation Attestation: To help prompt me to consider important information that might be impacting today's encounter and assessment, information from prior notes written by myself or my colleagues may have been "brought forward" into today's note. My signature on this note, however, is an attestation that I personally performed the exam, history, and/or decision-making noted today, and, unless otherwise indicated, the interactions with patient, family, and staff as well as the review of records all occurred today. I also attest that the listed assessment and stated plan reflect my best clinical judgment today based on the combination of historical information, prior notes, and today's exam/ interactions. When time spent is documented, it refers only to time spent today by the signer, or if indicated, combined time spent today by collaborating physician/nurse practitioner.
[2018-08-27 19:18] LABS: Bacteria,Urine Occasional /hpf; Bilirubin,Urine Negative (Negative); Clarity,Urine Hazy (Clear); Color,Urine Amber (Yellw/Straw); Glucose,Urine (UA) Negative (Negative); Leukocyte Esterase,Urine Small (Negative); Nitrite,Urine Negative (Negative); Specific Gravity,Urine 1.013 (1.002-1.035); Squamous Epithelial Cell,Urine <1 /hpf (0-5)
[2018-08-28 06:08] LABS: Activated Partial Thrombo Time 34.7 sec (23.4-31.7); Baso # (Auto) 0.1 th/mm3 (0.0-0.2); Baso % (Auto) 0.6 % (0.0-2.0); Eos % (Auto) 0.1 % (0.0-4.0); Hemoglobin 9.6 gm/dL (11.6-15.3); INR 1.9 Ratio; Lymph % (Auto) 9.4 % (9.0-44.0); Mean Corpuscular HGB Conc 33.1 % (32.0-36.0); Mean Corpuscular Hemoglobin 23.7 pg (27.0-34.0); Mean Corpuscular Volume 71.7 fL (80.0-100.0); Mean Platelet Volume 9.9 fL (7.0-11.0); Mono # (Auto) 1.6 th/mm3 (0.0-0.9); Mono % (Auto) 14.7 % (0.0-8.0); Neut # (Auto) 8.2 th/mm3 (1.8-7.7); Neut % (Auto) 75.2 % (16.0-70.0); Platelet Count 72 th/mm3 (150-450); Prothrombin Time 19.3 sec (9.8-11.6); Red Blood Count 4.05 mil/mm3 (4.00-5.30); Red Cell Distribution Width 20.5 % (11.6-17.2); White Blood Count 10.9 th/mm3 (4.0-11.0)
[2018-08-28 06:38] LABS: Calcium 9.4 mg/dL (8.5-10.1); Carbon Dioxide 31.3 meq/L (21.0-32.0)
[2018-08-28 08:01] LABS: Basophilic Stippling Moderate; Eosinophils 1 % (0-4); Lymphocytes 8 % (9-44); Monocytes 3 % (0-8); Tallied Nucleated RBC 12 (0-0)
[2018-08-28 08:02] LABS: Acanthocytes 1+
[2018-08-28 08:03] LABS: Howell-Jolly Bodies Present
[2018-08-28 08:04] LABS: Target Cells 2+
[2018-08-28] MEDS: Senna/Docusate Sodium 8.6/50 MG Tablet PO SCH ×2 (08:08→21:55)
[2018-08-28] MEDS: Metoprolol Tartrate 25 MG Tablet PO SCH ×3 (08:16→18:00)
[2018-08-28] MEDS ORDERED: Potassium Chlor 20 mEq Premix 20 MEQ/100 ML PIGGYBACK IV.SIG ONE (09:00)
[2018-08-28] MEDS: Dextrose 5% in Water Inj 1,000 ML IV.CONT SCH ×2 (09:09→23:13)
--- NOTE | 2018-08-28 09:43 | P.PNNP ---
Subjective Interval history: patient has been extubated. Weak appearing. Non oliguric. Higher BUN and Sodium noted, but Creatinine is stable. I discussed with the patient about her situation. Mainly she has cardiorenal syndrome. She failed to followup with heart transplant team at [place]. Physical Exam Vital signs: Vital Signs 08/27/18 10:00 08/27/18 11:00 08/27/18 11:53 Temperature Pulse Rate 78 75 82 Respiratory Rate Blood Pressure 120/80 111/88 Pulse Oximetry 100 98 08/27/18 12:00 08/27/18 12:07 08/27/18 13:00 Temperature 98.3 F Pulse Rate 82 84 Respiratory Rate 25 H Blood Pressure 110/84 Pulse Oximetry 100 100 100 08/27/18 13:15 08/27/18 13:28 08/27/18 14:00 Temperature Pulse Rate 86 88 Respiratory Rate Blood Pressure 108/75 105/84 Pulse Oximetry 99 100 99 08/27/18 15:00 08/27/18 16:00 08/27/18 16:01 Temperature 98.0 F Pulse Rate 82 82 83 Respiratory Rate Blood Pressure 113/77 113/77 Pulse Oximetry 100 99 100 08/27/18 17:00 08/27/18 17:19 08/27/18 18:00 Temperature Pulse Rate 83 82 83 Respiratory Rate Blood Pressure 115/88 112/88 Pulse Oximetry 100 100 100 08/27/18 18:01 08/27/18 19:00 08/27/18 19:16 Temperature Pulse Rate 83 91 H 85 Respiratory Rate Blood Pressure 114/83 120/82 Pulse Oximetry 99 99 98 08/27/18 20:00 08/27/18 21:00 08/27/18 21:40 Temperature 98.1 F Pulse Rate 83 77 Respiratory Rate 20 Blood Pressure 112/86 115/81 Pulse Oximetry 100 100 98 08/27/18 22:00 08/27/18 23:00 08/27/18 23:07 Temperature Pulse Rate 82 87 82 Respiratory Rate Blood Pressure 111/89 117/88 Pulse Oximetry 100 68 L 08/28/18 00:00 08/28/18 00:01 08/28/18 01:00 Temperature 98.3 F Pulse Rate 83 82 84 Respiratory Rate 20 Blood Pressure 117/87 117/87 Pulse Oximetry 100 100 100 08/28/18 02:00 08/28/18 03:00 08/28/18 04:00 Temperature Pulse Rate 86 88 77 Respiratory Rate Blood Pressure 120/92 H 125/89 108/67 Pulse Oximetry 100 94 L 92 L 08/28/18 05:00 08/28/18 06:00 08/28/18 08:35 Temperature Pulse Rate 85 89 Respiratory Rate Blood Pressure 118/90 116/88 Pulse Oximetry 100 96 Intake & Output 08/27/18 08/28/18 08/28/18 18:59 06:59 18:59 Intake Total 657 / 657 350 / 350 Output Total 660 / 660 1190 / 1190 Balance -3 / -3 -840 / -840 Weight 64.5 kg Intake: IV 300 / 300 350 / 350 Azithromycin Inj 500 MG In NS 250 / 250 Inj 250 ML @ 250 mls/hr IV.SIG Q24H ANAHI Rx#:[id number] Maxipime Inj 2,000 MG In NS Inj 100 / 100 100 ML @ 200 mls/hr IV.SIG Q24H ANAHI Rx#:[id number] Flagyl 500 MG Inj 100 ML @ 100 200 / 200 100 / 100 mls/hr IV.SIG Q8H ANAHI Rx#: [id number] Oral 0 / 0 Tube Feeding 297 / 297 Tube Irrigant 60 / 60 Output: Stool 0 / 0 400 / 400 Urine Amount (Catheter) 450 / 450 600 / 600 Indwelling Urethral Catheter 450 / 450 600 / 600 Chest Tube Drainage 210 / 210 190 / 190 Right Mid-Axillary Chest 210 / 210 190 / 190 Other: Date of Last Bowel Movement 08/27/18 08/28/18 Narrative: GENERAL: Extubated, weak appearing. Cardiac cachexia. SKIN: warm and dry. HEAD: Normocephalic. NECK: No lymphadenopathy, no thyromegaly. CARDIOVASCULAR: Regular rate and rhythm with no murmurs, RESPIRATORY: Clear to auscultation bilaterally, chest tube in place on right side. GASTROINTESTINAL: Abdomen soft, non-tender, nondistended. On tube feeds. Rectal tube in place. EXTREMITIES: No lower ext edema.. NEUROLOGICAL: Responsive and following commands. - Urinary Catheter Management Indwelling Urethral Catheter Cath placed during this visit: yes Reason for continuing: Hourly intake/output Insertion date: 08/16/18 Assessment and Plan - Assessment (1) Acute kidney injury superimposed on CKD Code(s): N17.9 - Acute kidney failure, unspecified; N18.9 - Chronic kidney disease, unspecified Status: Acute Plan: Patient remains nonoliguric acute renal failure and chronic kidney disease. She has cardiorenal syndrome. 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 Discussed this with patient. Poor prognosis. Added D5w because of persisting hypernatremia. No need for fluid restriction. (2) Acute exacerbation of congestive heart failure Code(s): I50.9 - Heart failure, unspecified Status: Acute Plan: Cardiology following. She has cardiomyopathy EF 20%. (3) Severe sepsis Code(s): A41.9 - Sepsis, unspecified organism; R65.20 - Severe sepsis without septic shock Status: Acute Plan: Patient on Flagyl, Azithromycin, and Cefepime. (4) Pneumonia Code(s): J18.9 - Pneumonia, unspecified organism Status: Acute Plan: Patient is being treated with IV antibiotics (5) Hypokalemia Code(s): E87.6 - Hypokalemia Status: Acute Plan: Replacement ordered.
--- NOTE | 2018-08-28 09:46 | P.PNCC ---
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 Patient also had productive cough and frothy sputum, sometimes blood tinged. She also complained about declining urinary output. Initial ER workup showed a normal white count, however BUN was elevated at 80 and creatinine 2.72. BNP was more than 4000. Chest x-ray showed right midlung infiltrate. Patient received Rocephin and azithromycin for community-acquired pneumonia. [facility]. After admission due to the shortness of breath pedal edema and elevated BNP [facility] gave the patient 20 mg IV Lasix but without much urine output. Initially patient had HR of 170's EKG appeared to be SVT and patient converted to NSR with IV Cardizem 25 mg. However patient's blood pressure started to decline. Because of this patient was given IV fluid boluses total 1.5 L had been given. Systolic blood pressure remains at 70s. Lactic acid was checked and was 8.1. With this information critical care medicine was consulted I evaluated the patient emergently. She is lethargic but wakes up easily answers questions. Still profoundly hypotensive despite 1.5 L bolus. I have ordered additional 500 mL bolus and will start Levophed at 5 mcg/min and titrate as needed. It was noted had that her INR is 5.2. Patient may benefit from inotropic agents if blood pressure improves. Antibiotics had been broadened into cefepime and azithromycin, I will also add IV Zyvox. Hold all further diuresis due to septic shock. Patient is very critical at this time 08/16: Patient sitting up in bed. Off Levophed however urine output is minimal only 75 mL urine output since admission. CVP remains elevated at 14-15. I will attempt forced diuresis with Bumex 2 mg x1 and Bumex 0.5 mg/h infusion. If no response may need hemodialysis. Follow-up chest x-ray today is pending. Chest x-ray shows persistent right sided infiltrate and effusion 08/17: Patient developed PEA cardiac arrest yesterday afternoon. No immediate inciting factors could be identified however most likely cardiac. 2D echo ordered pending. CT of the head pending. Currently patient had been weaned off all of the pressors however remains encephalopathy. Creatinine is worsening to 3.8 however urine output has improved approximately 500 ml UO in the last 12 hours. 08/18: Patient remains intubated lightly sedated. On lightening sedation patient wakes up easily following commands. Remains on Bumex infusion approximately 6 L urine output. However chest x-ray showing pulmonary edema. Remains off pressors. Will attempt CPAP trials. CT head did not show any acute finding 08/19: Diuresing well with Bumex infusion achieving negative balance however chest x-ray shows bilateral pulmonary vascular congestion and bilateral at least moderate effusions. These are secondary to decompensated heart failure. EF is less than 20 with severe MR. Creatinine down to 3. Prognosis overall is poor despite milrinone and diuresis patient is not proving adequately. We will consult palliative care to address goals of care 08/20: Patient continues to be in decompensated congestive heart failure. Despite increasing Bumex to 2 mg/h, urine output has decreased to 1.6 L in 24 hours. Chest x-ray continued to show bilateral large pleural effusions. Right- sided pigtail chest tube was placed today with 1 L output initially. Milrinone discontinued due to increasing ventricular irritability. 08/21: Remains sedated, orally intubated on mechanical ventilation. Bumex drip continues. 08/22: Off sedation since 08/18. Intubated and on PSV / CPAP. Not following commands. 08/23: Intubated and on PRVC A/C currently. Had tachycardia during CPAP trials today. She is following commands now. 08/24: Intubated and currently on CPAP / PSV w/ pressures of 10/5. When pressure support was decreased to 7/5 she became tachypneic 08/25: On mechanical ventilation. Awake, follows commands. Significant output from right-sided pigtail catheter. 08/26: Remains on mechanical ventilation. Remains off sedation. Awake, follows commands. Drained about 1 L from right pigtail catheter. Added free water for hypernatremia. BUN remains elevated. 08/27: Mechanically ventilated, off sedation. Awake and following commands. Pigtail catheter drained 150cc today, but is obstructed by thick fluid. 08/28: Extubated yesterday PM, off sedation. Awake, alert. Reports she is comfortable with no CP, SOB, or abdominal pain. Pigtail catheter drained ~190 cc last 24 hours. Off all pressors. Getting D5W IV for hypernatremia. Objective Vital Signs / I&O: Vital Signs 08/27/18 10:00 08/27/18 11:00 08/27/18 11:53 Temperature Pulse Rate 78 75 82 Respiratory Rate Blood Pressure 120/80 111/88 Pulse Oximetry 100 98 08/27/18 12:00 08/27/18 12:07 08/27/18 13:00 Temperature 98.3 F Pulse Rate 82 84 Respiratory Rate 25 H Blood Pressure 110/84 Pulse Oximetry 100 100 100 08/27/18 13:15 08/27/18 13:28 08/27/18 14:00 Temperature Pulse Rate 86 88 Respiratory Rate Blood Pressure 108/75 105/84 Pulse Oximetry 99 100 99 08/27/18 15:00 08/27/18 16:00 08/27/18 16:01 Temperature 98.0 F Pulse Rate 82 82 83 Respiratory Rate Blood Pressure 113/77 113/77 Pulse Oximetry 100 99 100 08/27/18 17:00 08/27/18 17:19 08/27/18 18:00 Temperature Pulse Rate 83 82 83 Respiratory Rate Blood Pressure 115/88 112/88 Pulse Oximetry 100 100 100 08/27/18 18:01 08/27/18 19:00 08/27/18 19:16 Temperature Pulse Rate 83 91 H 85 Respiratory Rate Blood Pressure 114/83 120/82 Pulse Oximetry 99 99 98 08/27/18 20:00 08/27/18 21:00 08/27/18 21:40 Temperature 98.1 F Pulse Rate 83 77 Respiratory Rate 20 Blood Pressure 112/86 115/81 Pulse Oximetry 100 100 98 08/27/18 22:00 08/27/18 23:00 08/27/18 23:07 Temperature Pulse Rate 82 87 82 Respiratory Rate Blood Pressure 111/89 117/88 Pulse Oximetry 100 68 L 08/28/18 00:00 08/28/18 00:01 08/28/18 01:00 Temperature 98.3 F Pulse Rate 83 82 84 Respiratory Rate 20 Blood Pressure 117/87 117/87 Pulse Oximetry 100 100 100 08/28/18 02:00 08/28/18 03:00 08/28/18 04:00 Temperature Pulse Rate 86 88 77 Respiratory Rate Blood Pressure 120/92 H 125/89 108/67 Pulse Oximetry 100 94 L 92 L 08/28/18 05:00 08/28/18 06:00 08/28/18 08:35 Temperature Pulse Rate 85 89 Respiratory Rate Blood Pressure 118/90 116/88 Pulse Oximetry 100 96 Intake & Output 08/27/18 08/28/18 08/28/18 18:59 06:59 18:59 Intake Total 657 / 657 350 / 350 Output Total 660 / 660 1190 / 1190 Balance -3 / -3 -840 / -840 Weight 64.5 kg Intake: IV 300 / 300 350 / 350 Azithromycin Inj 500 MG In NS 250 / 250 Inj 250 ML @ 250 mls/hr IV.SIG Q24H ANAHI Rx#:[id number] Maxipime Inj 2,000 MG In NS Inj 100 / 100 100 ML @ 200 mls/hr IV.SIG Q24H ANAHI Rx#:[id number] Flagyl 500 MG Inj 100 ML @ 100 200 / 200 100 / 100 mls/hr IV.SIG Q8H ANAHI Rx#: [id number] Oral 0 / 0 Tube Feeding 297 / 297 Tube Irrigant 60 / 60 Output: Stool 0 / 0 400 / 400 Urine Amount (Catheter) 450 / 450 600 / 600 Indwelling Urethral Catheter 450 / 450 600 / 600 Chest Tube Drainage 210 / 210 190 / 190 Right Mid-Axillary Chest 210 / 210 190 / 190 Other: Date of Last Bowel Movement 08/27/18 08/28/18 Result Diagrams: 08/28/18 05:00 08/28/18 05:00 Imaging: Impressions Chest X-Ray 08/27/18 00:00 CONCLUSION: Nasogastric tube sidehole is not across the GE junction ET tube is just above the josh Compensated cardiomegaly with minimal consolidative changes left base Objective Remarks: General: Chronically ill-appearing -[place] female who is resting in bed comfortably in NAD HEENT: Normocephalic and atraumatic. MMM. PERRL. Mild right facial droop. Neck: Supple, no JVD Chest: Normal inspection of the chest. Scar from AICD placement on the left upper chest. AICD now in right upper chest. Chest tube in place draining serosanguinous fluid. Resp: Air entry slightly diminished in the right mid chest, occasional wet crackles heard. No wheezes or rhonchi. Rate: NRRR without murmur GI: Abdomen soft and non-tender to palpation Skin: No rashes or lesions noted, dry skin Neuro: Awake and alert, following commands, oriented to situation. Assessment and Plan - Problem List (1) Severe sepsis Code(s): A41.9 - Sepsis, unspecified organism; R65.20 - Severe sepsis without septic shock Status: Acute (2) Pneumonia Code(s): J18.9 - Pneumonia, unspecified organism Status: Acute (3) Acute exacerbation of CHF (congestive heart failure) Code(s): I50.9 - Heart failure, unspecified Status: Acute (4) Acute on chronic kidney failure Code(s): N17.9 - Acute kidney failure, unspecified; N18.9 - Chronic kidney disease, unspecified Status: Acute (5) Pleural effusion Code(s): J90 - Pleural effusion, not elsewhere classified Status: Acute (6) PEA (Pulseless electrical activity) Code(s): I46.9 - Cardiac arrest, cause unspecified Status: Resolved (7) Hypertension Code(s): I10 - Essential (primary) hypertension Status: Acute (8) Supratherapeutic INR Code(s): R79.1 - Abnormal coagulation profile Status: Acute (9) Cardiorenal syndrome Code(s): I13.10 - Hypertensive heart and chronic kidney disease without heart failure, with stage 1 through stage 4 chronic kidney disease, or unspecified chronic kidney disease Status: Acute (10) Nutrition, metabolism, and development symptoms Code(s): R63.8 - Other symptoms and signs concerning food and fluid intake Status: Acute - Assessment and Plan Plan: ASSESSMENT: PEA cardiac arrest Decompensated systolic heart failure Bilateral pleural effusion/pulmonary edema Severe biventricular failure Acute metabolic encephalopathy Septic shock - improving Cardiogenic shock - resolved Acute respiratory failure - resolved Severe MR, TR Right sided pneumonia, with effusion Lactic acidemia - improving Acute on chronic kidney disease Supratherapeutic INR Mild troponin elevation SVT - resolved Hypokalemia Cardiomyopathy ejection fraction 20% Chronic kidney disease Hypertension History of CVA in 2017 Chronic anticoagulation with Coumadin PLAN: NEURO: -Prior metabolic encephalopathy secondary to sepsis, no evidence of significant anoxic injury from PEA arrest, now awake, alert, following commands -No evidence of new CVA at this time. CT 08/17 of the head negative for acute findings old right frontal stroke -Continue to monitor neuro status - no neuro checks needed at this point unless new symptoms arise RESP: -Status post ultrasound-guided thoracentesis, studies consistent with transudative versus early exudative effusion -Status post right pigtail chest tube placement (08/20) -Intubated and placed on mechanical ventilation during CPR 08/16/18, now extubated as of 08/27 PM -Pigtail still draining significant pleural fluid, will check daily CXR, allow some time for drainage CV: -Following PEA cardiac arrest patient was on epinephrine and Levophed infusion as well as milrinone. Now off all pressor support. -2D echo previously showing EF 20-25%. Repeat 2D echo showed severely dilated right and left ventricle with severe biventricular dysfunction. LV EF less than 20%. Severe MR and TR. -BID chlorthalidone 500 mg twice daily per nephrology -integration consultant following, appreciate assistance -Diltiazem drip stopped 08/23. Received 0.5 mg of digoxin 08/23. Lopressor 12.5 mg 3 times daily GI: -IV famotidine -Tube feeds with Nepro and free water -Total bilirubin has been increasing, recheck CMP today RENAL: -Monitor renal function closely. Bradley catheter. -Nephrology following: Chlorthalidone 500 daily, D5W through IV for hypernatremia -Tube feeds with Nepro and free water -Rising BUN creatinine noted nephrology does not think she would tolerate dialysis ID: -Continue empiric cefepime, Flagyl and azithromycin -Blood and pleural fluid cultures negative to date. Sputum cx taken 08/22 showed moderate growth of respiratory bear. -WBC improving -Follow repeat cultures, NGTD HEME: -Mild stable anemia -Monitor CBC and coags daily -Restarted warfarin on 08/23: 1 mg p.o. daily (INR goal of 2-3) ENDO: -Electrolyte replacement as needed PROPH: -Bilateral lower extremity SCDs. PO famotidine. LINES: -Utilize peripheral IVs -Left IJ central line placed 08/15/2018, to be removed today -Right femoral arterial line placed 08/16, now removed -Intubation and left femoral central line placement 08/16/2018, now removed -Right pigtail chest tube placed 08/20/2018, still with significant output DISPOSITION: -Potentially can recover from this episode and make it to hospital discharge -Long-term prognosis is poor to her neurologic, cardiovascular, and respiratory status -Palliative care is following - in my opinion with her medical problems would be a candidate for hospice if goals of care consistent with avoiding aggressive measures Addendum: Patient seen and examined earlier. Discussed findings, assessment and plan with Dr. Espinoza. Agree with above note. (3) Acute exacerbation of CHF (congestive heart failure) Qualifiers: Heart failure type: systolic Qualified Code(s): I50.23 - Acute on chronic systolic (congestive) heart failure (4) Acute on chronic kidney failure Qualifiers: Acute renal failure type: unspecified Chronic kidney disease stage: stage 4 ( severe) Qualified Code(s): N17.9 - Acute kidney failure, unspecified; N18.4 - Chronic kidney disease, stage 4 (severe)
[2018-08-28] MEDS: Azithromycin Inj 500 MG in Sodium Chlor 0.9% Inj 250 ML IV.SIG SCH (12:07)
--- NOTE | 2018-08-28 12:54 | P.PNFP ---
Subjective Interval history: Patient seen and examined at bedside. She was extubated yesterday evening. She is awake and alert. Responding to questions. She denies any pain, cp, sob, abd pain, or n/v. Tolerating liquids intake well. <Mandi Bebe Palacio D - 08/28/18 16:16> Results - Labs Result diagrams: 08/28/18 05:00 08/28/18 05:00 <Amelia Phoenix - 08/28/18 21:10> Abnormal lab results 08/28/18 08/28/18 08/28/18 Range/Units 05:00 05:00 05:00 Hgb 9.6 L (11.6-15.3) gm/dL Hct 29.0 L (35.0-46.0) % MCV 71.7 L (80.0-100.0) fL MCH 23.7 L (27.0-34.0) pg RDW 20.5 H (11.6-17.2) % Plt Count 72 L (150-450) th/mm3 Neut % (Auto) 75.2 H (16.0-70.0) % [place] % (Auto) 14.7 H (0.0-8.0) % Neut # (Auto) 8.2 H (1.8-7.7) th/mm3 [place] # (Auto) 1.6 H (0.0-0.9) th/mm3 Seg Neuts % (Manual) 85 H (16-70) % Lymphocytes % (Manual) 8 L (9-44) % Abs Neuts (Manual) 9.6 H (1.8-7.7) th/mm3 Nucleated RBCs/100 WBC 12 H (0-0) /100 WBC Platelet Estimate Low L (Normal) Platelet Morphology Enlarged H (Normal) Basophilic Stippling Moderate H (None) Target Cells 2+ H (None) Borjas-Casper Bodies Present H (None) Acanthocytes (Spur) 1+ H (None) Keratocytes 1+ H (None) PT 19.3 H (9.8-11.6) sec APTT 34.7 H (23.4-31.7) sec Sodium 158 H* (136-145) meq/L Potassium 3.0 L (3.5-5.1) meq/L Chloride 115 H (98-107) meq/L BUN 149 H (7-18) mg/dL Creatinine 2.82 H (0.50-1.00) mg/dL Estimated GFR 20 L (>89) mL/min Short CBC 08/28/18 Range/Units 05:00 WBC 10.9 (4.0-11.0) th/mm3 Hgb 9.6 L (11.6-15.3) gm/dL Hct 29.0 L (35.0-46.0) % Plt Count 72 L (150-450) th/mm3 BMP 08/28/18 05:00 Sodium 158 H* Potassium 3.0 L Chloride 115 H Carbon Dioxide 31.3 BUN 149 H Creatinine 2.82 H Calcium 9.4 <Amelia Phoenix - 08/28/18 21:10> Abnormal lab results 08/27/18 08/27/18 08/27/18 Range/Units 11:00 15:55 17:00 Hgb (11.6-15.3) gm/dL Hct (35.0-46.0) % MCV (80.0-100.0) fL MCH (27.0-34.0) pg RDW (11.6-17.2) % Plt Count (150-450) th/mm3 Neut % (Auto) (16.0-70.0) % [place] % (Auto) (0.0-8.0) % Neut # (Auto) (1.8-7.7) th/mm3 [place] # (Auto) (0.0-0.9) th/mm3 Seg Neuts % (Manual) (16-70) % Lymphocytes % (Manual) (9-44) % Abs Neuts (Manual) (1.8-7.7) th/mm3 Nucleated RBCs/100 WBC (0-0) /100 WBC Platelet Estimate (Normal) Platelet Morphology (Normal) Basophilic Stippling (None) Target Cells (None) Borjas-Casper Bodies (None) Acanthocytes (Spur) (None) Keratocytes (None) PT (9.8-11.6) sec APTT (23.4-31.7) sec ABG pH 7.50 H (7.380-7.420) ABG pCO2 35 L (38-42) mmHg ABG pO2 161 H (61-120) mmHG ABG HCO3 27 H (22-26) mmol/L ABG Base Excess 3.5 H (-2-2) mmol/L Hemoglobin 9.6 L (12.0-16.0) G/DL Sodium (136-145) meq/L Potassium (3.5-5.1) meq/L Chloride (98-107) meq/L BUN (7-18) mg/dL Creatinine (0.50-1.00) mg/dL Estimated GFR (>89) mL/min Direct Bilirubin 6.2 H (0.0-0.2) mg/dL Indirect Bilirubin 2.9 H (0.0-0.8) mg/dL Urine Clarity Hazy H (Clear) Urine Protein 100 H (Neg-Trace) mg/dL Urine Occult Blood Moderate H (Negative) Ur Leukocyte Esterase Small H (Negative) Urine RBC 56 H (0-3) /hpf Urine WBC 27 H (0-5) /hpf Urine Bacteria Occasional H (None) /hpf Urine Yeast Many H (None) /hpf 08/28/18 08/28/18 08/28/18 Range/Units 05:00 05:00 05:00 Hgb 9.6 L (11.6-15.3) gm/dL Hct 29.0 L (35.0-46.0) % MCV 71.7 L (80.0-100.0) fL MCH 23.7 L (27.0-34.0) pg RDW 20.5 H (11.6-17.2) % Plt Count 72 L (150-450) th/mm3 Neut % (Auto) 75.2 H (16.0-70.0) % [place] % (Auto) 14.7 H (0.0-8.0) % Neut # (Auto) 8.2 H (1.8-7.7) th/mm3 [place] # (Auto) 1.6 H (0.0-0.9) th/mm3 Seg Neuts % (Manual) 85 H (16-70) % Lymphocytes % (Manual) 8 L (9-44) % Abs Neuts (Manual) 9.6 H (1.8-7.7) th/mm3 Nucleated RBCs/100 WBC 12 H (0-0) /100 WBC Platelet Estimate Low L (Normal) Platelet Morphology Enlarged H (Normal) Basophilic Stippling Moderate H (None) Target Cells 2+ H (None) Borjas-Casper Bodies Present H (None) Acanthocytes (Spur) 1+ H (None) Keratocytes 1+ H (None) PT 19.3 H (9.8-11.6) sec APTT 34.7 H (23.4-31.7) sec ABG pH (7.380-7.420) ABG pCO2 (38-42) mmHg ABG pO2 (61-120) mmHG ABG HCO3 (22-26) mmol/L ABG Base Excess (-2-2) mmol/L Hemoglobin (12.0-16.0) G/DL Sodium 158 H* (136-145) meq/L Potassium 3.0 L (3.5-5.1) meq/L Chloride 115 H (98-107) meq/L BUN 149 H (7-18) mg/dL Creatinine 2.82 H (0.50-1.00) mg/dL Estimated GFR 20 L (>89) mL/min Direct Bilirubin (0.0-0.2) mg/dL Indirect Bilirubin (0.0-0.8) mg/dL Urine Clarity (Clear) Urine Protein (Neg-Trace) mg/dL Urine Occult Blood (Negative) Ur Leukocyte Esterase (Negative) Urine RBC (0-3) /hpf Urine WBC (0-5) /hpf Urine Bacteria (None) /hpf Urine Yeast (None) /hpf Short CBC 08/28/18 Range/Units 05:00 WBC 10.9 (4.0-11.0) th/mm3 Hgb 9.6 L (11.6-15.3) gm/dL Hct 29.0 L (35.0-46.0) % Plt Count 72 L (150-450) th/mm3 BMP 08/28/18 05:00 Sodium 158 H* Potassium 3.0 L Chloride 115 H Carbon Dioxide 31.3 BUN 149 H Creatinine 2.82 H Calcium 9.4 Liver Function 08/27/18 Range/Units 11:00 Direct Bilirubin 6.2 H (0.0-0.2) mg/dL Urine 08/27/18 Range/Units 17:00 Urine Color Ava (Yellw/Straw) Urine Clarity Hazy H (Clear) Urine pH 5.0 (5.0-8.5) Ur Specific [place] 1.013 (1.002-1.035) Urine Protein 100 H (Neg-Trace) mg/dL Urine Glucose (UA) Negative (Negative) mg/dL <Molinado PalacioBebe D - 08/28/18 12:54> Physical Exam Vital signs: Vital Signs 08/27/18 21:40 08/27/18 22:00 08/27/18 23:00 Temperature Pulse Rate 82 87 Respiratory Rate Blood Pressure 111/89 Pulse Oximetry 98 100 68 L 08/27/18 23:07 08/28/18 00:00 08/28/18 00:01 Temperature 98.3 F Pulse Rate 82 83 82 Respiratory Rate 20 Blood Pressure 117/88 117/87 117/87 Pulse Oximetry 100 100 08/28/18 01:00 08/28/18 02:00 08/28/18 03:00 Temperature Pulse Rate 84 86 88 Respiratory Rate Blood Pressure 120/92 H 125/89 Pulse Oximetry 100 100 94 L 08/28/18 04:00 08/28/18 05:00 08/28/18 06:00 Temperature Pulse Rate 77 85 89 Respiratory Rate Blood Pressure 108/67 118/90 116/88 Pulse Oximetry 92 L 100 08/28/18 07:00 08/28/18 08:00 08/28/18 08:35 Temperature 98.3 F Pulse Rate 92 H 94 H Respiratory Rate Blood Pressure 117/87 Pulse Oximetry 99 61 L 96 08/28/18 09:00 08/28/18 10:00 08/28/18 11:00 Temperature Pulse Rate 90 89 90 Respiratory Rate Blood Pressure 121/96 H 117/93 H Pulse Oximetry 100 89 L 89 L 08/28/18 11:08 08/28/18 11:30 08/28/18 12:00 Temperature 98.0 F Pulse Rate 89 92 H 84 Respiratory Rate Blood Pressure 119/92 H 117/95 H 116/86 Pulse Oximetry 99 95 100 08/28/18 12:03 08/28/18 12:30 08/28/18 13:00 Temperature Pulse Rate 86 84 85 Respiratory Rate Blood Pressure 116/86 105/79 Pulse Oximetry 100 99 99 08/28/18 13:01 08/28/18 13:12 08/28/18 13:13 Temperature Pulse Rate 85 84 83 Respiratory Rate Blood Pressure 94/67 L 92/55 L 83/53 L Pulse Oximetry 99 97 99 02/12/19 13:15 08/28/18 13:19 08/28/18 13:30 Temperature Pulse Rate 82 81 83 Respiratory Rate Blood Pressure 79/56 L 88/66 L 86/60 L Pulse Oximetry 99 97 97 08/28/18 13:46 08/28/18 14:00 08/28/18 14:15 Temperature Pulse Rate 84 83 83 Respiratory Rate Blood Pressure 101/73 105/74 99/79 L Pulse Oximetry 95 93 L 95 08/28/18 14:30 08/28/18 14:45 08/28/18 15:00 Temperature Pulse Rate 84 83 83 Respiratory Rate Blood Pressure 100/73 105/71 107/78 Pulse Oximetry 97 97 96 08/28/18 15:16 08/28/18 15:30 08/28/18 15:45 Temperature Pulse Rate 82 82 82 Respiratory Rate Blood Pressure 110/83 102/82 106/82 Pulse Oximetry 97 96 97 08/28/18 16:00 08/28/18 16:15 08/28/18 16:23 Temperature 98.2 F Pulse Rate 81 81 81 Respiratory Rate Blood Pressure 98/81 L 103/85 109/87 Pulse Oximetry 97 99 98 08/28/18 16:30 08/28/18 16:45 08/28/18 17:00 Temperature Pulse Rate 80 81 85 Respiratory Rate Blood Pressure 102/85 104/85 107/88 Pulse Oximetry 96 96 08/28/18 17:16 08/28/18 17:30 08/28/18 17:45 Temperature Pulse Rate 87 89 87 Respiratory Rate Blood Pressure 110/85 112/89 114/90 Pulse Oximetry 08/28/18 18:00 Temperature Pulse Rate 85 Respiratory Rate Blood Pressure 118/90 Pulse Oximetry Intake & Output 08/28/18 08/28/18 08/29/18 06:59 18:59 06:59 Intake Total 350 / 350 1550 / 1550 Output Total 1190 / 1190 435 / 435 Balance -840 / -840 1115 / 1115 Weight 64.5 kg Intake: IV 350 / 350 550 / 550 Azithromycin Inj 500 MG In NS 250 / 250 250 / 250 Inj 250 ML @ 250 mls/hr IV.SIG Q24H [facility] Rx#:[id number] Maxipime Inj 2,000 MG In NS Inj 100 / 100 100 ML @ 200 mls/hr IV.SIG Q24H [facility] Rx#:[id number] Flagyl 500 MG Inj 100 ML @ 100 100 / 100 200 / 200 mls/hr IV.SIG Q8H [facility] Rx#: [id number] Oral 1000 / 1000 Output: Stool 400 / 400 Urine Amount (Catheter) 600 / 600 375 / 375 Indwelling Urethral Catheter 600 / 600 375 / 375 Chest Tube Drainage 190 / 190 60 / 60 Right Mid-Axillary Chest 190 / 190 60 / 60 Other: Date of Last Bowel Movement 08/28/18 08/28/18 # Incontinent Bowel Movements 1 <Amelia Phoenix - 08/28/18 21:10> Vital Signs 08/27/18 13:00 08/27/18 13:15 08/27/18 13:28 Temperature Pulse Rate 84 86 Respiratory Rate Blood Pressure 108/75 Pulse Oximetry 100 99 100 08/27/18 14:00 08/27/18 15:00 08/27/18 16:00 Temperature 98.0 F Pulse Rate 88 82 82 Respiratory Rate Blood Pressure 105/84 113/77 Pulse Oximetry 99 100 99 08/27/18 16:01 08/27/18 17:00 08/27/18 17:19 Temperature Pulse Rate 83 83 82 Respiratory Rate Blood Pressure 113/77 115/88 112/88 Pulse Oximetry 100 100 100 08/27/18 18:00 08/27/18 18:01 08/27/18 19:00 Temperature Pulse Rate 83 83 91 H Respiratory Rate Blood Pressure 114/83 Pulse Oximetry 100 99 99 08/27/18 19:16 08/27/18 20:00 08/27/18 21:00 Temperature 98.1 F Pulse Rate 85 83 77 Respiratory Rate 20 Blood Pressure 120/82 112/86 115/81 Pulse Oximetry 98 100 100 08/27/18 21:40 08/27/18 22:00 08/27/18 23:00 Temperature Pulse Rate 82 87 Respiratory Rate Blood Pressure 111/89 Pulse Oximetry 98 100 68 L 08/27/18 23:07 08/28/18 00:00 08/28/18 00:01 Temperature 98.3 F Pulse Rate 82 83 82 Respiratory Rate 20 Blood Pressure 117/88 117/87 117/87 Pulse Oximetry 100 100 08/28/18 01:00 08/28/18 02:00 08/28/18 03:00 Temperature Pulse Rate 84 86 88 Respiratory Rate Blood Pressure 120/92 H 125/89 Pulse Oximetry 100 100 94 L 08/28/18 04:00 08/28/18 05:00 08/28/18 06:00 Temperature Pulse Rate 77 85 89 Respiratory Rate Blood Pressure 108/67 118/90 116/88 Pulse Oximetry 92 L 100 08/28/18 07:00 08/28/18 08:00 08/28/18 08:35 Temperature 98.3 F Pulse Rate 92 H 94 H Respiratory Rate Blood Pressure 117/87 Pulse Oximetry 99 61 L 96 08/28/18 09:00 08/28/18 10:00 08/28/18 11:00 Temperature Pulse Rate 90 89 90 Respiratory Rate Blood Pressure 121/96 H 117/93 H Pulse Oximetry 100 89 L 89 L 08/28/18 11:08 08/28/18 11:30 Temperature Pulse Rate 89 92 H Respiratory Rate Blood Pressure 119/92 H 117/95 H Pulse Oximetry 99 95 Intake & Output 08/27/18 08/28/18 08/28/18 18:59 06:59 18:59 Intake Total 657 / 657 350 / 350 200 / 200 Output Total 660 / 660 1190 / 1190 Balance -3 / -3 -840 / -840 200 / 200 Weight 64.5 kg Intake: IV 300 / 300 350 / 350 200 / 200 Azithromycin Inj 500 MG In NS 250 / 250 Inj 250 ML @ 250 mls/hr IV.SIG Q24H [facility] Rx#:[id number] Maxipime Inj 2,000 MG In NS Inj 100 / 100 100 / 100 100 ML @ 200 mls/hr IV.SIG Q24H [facility] Rx#:[id number] Flagyl 500 MG Inj 100 ML @ 100 200 / 200 100 / 100 100 / 100 mls/hr IV.SIG Q8H [facility] Rx#: [id number] Oral 0 / 0 Tube Feeding 297 / 297 Tube Irrigant 60 / 60 Output: Stool 0 / 0 400 / 400 Urine Amount (Catheter) 450 / 450 600 / 600 Indwelling Urethral Catheter 450 / 450 600 / 600 Chest Tube Drainage 210 / 210 190 / 190 Right Mid-Axillary Chest 210 / 210 190 / 190 Other: Date of Last Bowel Movement 08/27/18 08/28/18 08/28/18 <Mandi R2,Bebe D - 08/28/18 12:54> Narrative: GENERAL: extubated on 08/27. Sitting up in bed in NAD on RA. SKIN: warm and dry. HEAD: Normocephalic. CARDIOVASCULAR: Regular rate and rhythm with no murmurs, rubs or gallops. RESPIRATORY: Clear to auscultation bilaterally, chest tube in place on right side. GASTROINTESTINAL: Abdomen soft, non-tender, nondistended. EXTREMITIES: No lower ext edema, non-tender calves, +2 PD pulses BL. NEUROLOGICAL: Responsive, interactive and following commands. <Calzado R2,Bebe D - 08/28/18 16:16> - Urinary Catheter Management Indwelling Urethral Catheter Cath placed during this visit: no <Amelia Phoenix - 08/28/18 21:10> yes <Calzado R2,Bebe D - 08/28/18 16:16> Reason for continuing: Hourly intake/output <Calzado R2,Bebe D - 08/28/18 12: 54> Insertion date: 08/16/18 <Calzado R2,Bebe D 08/28/18 12:54> Assessment and Plan - Assessment (1) Severe sepsis Code(s): A41.9 - Sepsis, unspecified organism; R65.20 - Severe sepsis without septic shock Status: Acute (2) Pneumonia Code(s): J18.9 - Pneumonia, unspecified organism Status: Acute (3) Acute exacerbation of CHF (congestive heart failure) Code(s): I50.9 - Heart failure, unspecified Status: Acute (4) Acute on chronic kidney failure Code(s): N17.9 - Acute kidney failure, unspecified; N18.9 - Chronic kidney disease, unspecified Status: Acute (5) Pleural effusion Code(s): J90 - Pleural effusion, not elsewhere classified Status: Acute (6) PEA (Pulseless electrical activity) Code(s): I46.9 - Cardiac arrest, cause unspecified Status: Resolved (7) Hypertension Code(s): I10 - Essential (primary) hypertension Status: Acute (8) Supratherapeutic INR Code(s): R79.1 - Abnormal coagulation profile Status: Resolved (9) Cardiorenal syndrome Code(s): I13.10 - Hypertensive heart and chronic kidney disease without heart failure, with stage 1 through stage 4 chronic kidney disease, or unspecified chronic kidney disease Status: Acute (10) Nutrition, metabolism, and development symptoms Code(s): R63.8 - Other symptoms and signs concerning food and fluid intake Status: Acute <Amelia Phoenix - 08/28/18 21:10> (1) Severe sepsis Code(s): A41.9 - Sepsis, unspecified organism; R65.20 - Severe sepsis without septic shock Status: Acute Plan: Community-acquired pneumonia complicated by lower extremity edema in the setting of CHF with an EF of 20%. Patient status post thoracentesis for pleural effusion. -Intubated mechanically ventilated, extubated on 08/27 -Blood cultures (08/15): No growth to date -Pleural fluid Gram stain and cultures no growth to date -WBC count downtrending to 10.9 today from 14.4 yesterday Plan: Per Shelter Advocate: Continue - Flagyl 500 mg every 8h (08/15-) - Cefepime 2000 mg every 8 hours (08/15-) - Azithromycin 500mg (08/16-) -Continue Diuril 500mg BID -extubated on 08/27 -New blood, urine, and sputum cultures ordered on 08/27 due to increase in white count urine cx: chi albicans fluconazole 150mg x1 ordered blood cx no growth x1 day and sputum cx mod normal respiratory bear Palliative care following, goals of care remain aggressive. (2) Pneumonia Code(s): J18.9 - Pneumonia, unspecified organism Status: Acute Plan: Community acquired right-sided pneumonia with lactic acidosis. -DuoNeb every 2 hours as needed -Sputum culture: Moderate growth normal respiratory bear -Respiratory panel uncollected -Continue with antibiotics per critical care team as dictated above -Repeat CXR 08/25: Improved aeration in left lower lobe. -Repeat CXR 08/27:Nasogastric tube sidehole is not across the GE junction ET tube is just above the josh. Compensated cardiomegaly with minimal consolidative changes left base (3) Acute exacerbation of CHF (congestive heart failure) Code(s): I50.9 - Heart failure, unspecified Status: Acute Plan: -BNP 4000 on admission -Bumex discontinued and patient now on Diuril 500mg BID -No lower extremity edema -Echo 08/17: EF 20%, fairly dilated left ventricle, severe mitral regurgitation -Urine output slightly decreased today at 0.68 ml/kg -BNP this morning of > 5000 -Cardiology following and agree with current plan Per cardiology prognosis is poor. (4) Acute on chronic kidney failure Code(s): N17.9 - Acute kidney failure, unspecified; N18.9 - Chronic kidney disease, unspecified Status: Acute Plan: This patient stage III CKD with elevated creatinine above baseline on admission. Possibly due to decrease intravascular volume in the setting of sepsis. -Creatinine on admission 2.72 from baseline of 1.5. -Creatinine decreased to 2.82 today -Urine output 0.68 ml/kg/hr Plan: -Trend kidney function -Trend I/O -Nephrology following Due to patient's severe cardiomyopathy with EF of <20% she is not a good candidate for dialysis (5) Pleural effusion Code(s): J90 - Pleural effusion, not elsewhere classified Status: Acute Plan: Patient status post right sided thoracentesis (08/16/18) with evacuation of approximately 950 ml of slightly cloudy, yellow colored fluid was removed. -Patient underwent therapeutic right sided chest tube placement with pigtail that drained 950ml of slightly cloudy yellow fluid. -08/16: Pleural fluid showed 1,333 red blood cells with 230 nucleated cells. Fluid consistent with transudative process. Cultures show no growth to date. Plan: -Chest tube draining approx 190 ml overnight -Monitor chest tube output -Continue pulmonary care as stated above (6) PEA (Pulseless electrical activity) Code(s): I46.9 - Cardiac arrest, cause unspecified Status: Resolved Plan: Patient required ACLS for 9 minutes on 08/16/18 for PEA arrest -ROSC was achieved by critical care medicine -Patient was intubated and sedated and treated with pressor support See treatment for severe sepsis (7) Hypertension Code(s): I10 - Essential (primary) hypertension Status: Acute Plan: History of hypertension. PEA required intubation and mech vent. Patient initially required pressors now off. -Lopressor 12.5 TID (8) Supratherapeutic INR Code(s): R79.1 - Abnormal coagulation profile Status: Resolved Plan: History of Afib on warfarin but supratherapeutic on admission. INR now 1.9. -Wafarin 1mg daily (9) Cardiorenal syndrome Code(s): I13.10 - Hypertensive heart and chronic kidney disease without heart failure, with stage 1 through stage 4 chronic kidney disease, or unspecified chronic kidney disease Status: Acute (10) Nutrition, metabolism, and development symptoms Code(s): R63.8 - Other symptoms and signs concerning food and fluid intake Status: Acute Plan: Fluids: Per first aid attendant Electrolytes: Replete as needed Nutrition: mechanical soft DVT prophylaxis: Coumadin <Bebe Camargo - 08/28/18 16:05> - Attending Attestation Patient seen, examined, and discussed with resident team. I agree with assessment and management as documented and discussed with me. Pt extubated yesterday. She denies any concerns. We discussed her hospital course and that she had a code. We discussed the importance of considering what she would like done in the future, should a dysrhythmia recur. <Amelia Phoenix - 08/28/18 21:10> <Bebe Camargo D - Last Filed: 08/28/18 16:05> (3) Acute exacerbation of CHF (congestive heart failure) Qualifiers: Heart failure type: systolic Qualified Code(s): I50.23 - Acute on chronic systolic (congestive) heart failure (4) Acute on chronic kidney failure Qualifiers: Acute renal failure type: unspecified Chronic kidney disease stage: stage 4 ( severe) Qualified Code(s): N17.9 - Acute kidney failure, unspecified; N18.4 - Chronic kidney disease, stage 4 (severe) <Amelia Phoenix - Last Filed: 08/28/18 21:10> (3) Acute exacerbation of CHF (congestive heart failure) Qualifiers: Heart failure type: systolic Qualified Code(s): I50.23 - Acute on chronic systolic (congestive) heart failure (4) Acute on chronic kidney failure Qualifiers: Acute renal failure type: unspecified Chronic kidney disease stage: stage 4 ( severe) Qualified Code(s): N17.9 - Acute kidney failure, unspecified; N18.4 - Chronic kidney disease, stage 4 (severe) <Bebe Camargo D - Last Filed: 08/28/18 16:05> (3) Acute exacerbation of CHF (congestive heart failure) Qualifiers: Heart failure type: systolic Qualified Code(s): I50.23 - Acute on chronic systolic (congestive) heart failure (4) Acute on chronic kidney failure Qualifiers: Acute renal failure type: unspecified Chronic kidney disease stage: stage 4 ( severe) Qualified Code(s): N17.9 - Acute kidney failure, unspecified; N18.4 - Chronic kidney disease, stage 4 (severe) <Amelia Phoenix - Last Filed: 08/28/18 21:10> (3) Acute exacerbation of CHF (congestive heart failure) Qualifiers: Heart failure type: systolic Qualified Code(s): I50.23 - Acute on chronic systolic (congestive) heart failure (4) Acute on chronic kidney failure Qualifiers: Acute renal failure type: unspecified Chronic kidney disease stage: stage 4 ( severe) Qualified Code(s): N17.9 - Acute kidney failure, unspecified; N18.4 - Chronic kidney disease, stage 4 (severe)
--- NOTE | 2018-08-28 13:54 | P.PNCA ---
Subjective Interval history: Patient denies any CP, pressure, palpitations, dizziness, edema or SOB. She states that she is feeling pretty good. Medications and Allergies Allergies Allergy/AdvReac Type Severity Reaction Status Date / Time iodine Allergy Severe sneezing, Verified 08/15/18 08:37 chest tightness potassium iodide Allergy Severe sneezing, Verified 08/15/18 08:37 chest tightness povidone-iodine Allergy Severe sneezing, Verified 08/15/18 08:37 chest tightness sodium iodide Allergy Severe sneezing, Verified 08/15/18 08:37 chest tightness sodium iodide Allergy Severe sneezing, Verified 08/15/18 08:37 chest tightness sulfamethoxazole Allergy Intermediate abdominal Verified 08/15/18 08:37 pain trimethoprim Allergy Intermediate abdominal Verified 08/15/18 08:37 pain hydralazine Allergy Unknown Edema Verified 08/15/18 08:37 Statins Allergy Intermediate Hives Uncoded 08/15/18 08:37 Home Medications Medication Instructions Recorded Confirmed Type bumetanide 2 mg PO DAILY 05/21/18 08/15/18 History carvedilol 25 mg PO BID 05/21/18 08/15/18 History potassium chloride 20 meq PO DAILY 05/21/18 08/15/18 History spironolactone 50 mg PO DAILY 05/21/18 08/15/18 History warfarin 2 mg PO DAILY 08/15/18 08/15/18 History Active Medications: Active Medications Acetaminophen (Tylenol) 650 mg PO Q4H PRN PRN Reason: Temp > 100.4 Al Hydroxide/Mg Hydroxide (Milk Of Magnesia Liq) 30 ml PO Q12H PRN PRN Reason: Mild Constipation Bisacodyl (Dulcolax Supp) 10 mg RECTAL DAILY PRN PRN Reason: SEVERE CONSITIPATION Dextrose (D5w Inj) 1,000 mls @ 75 mls/hr IV.CONT .[id number] [facility] Last Admin: 08/28/18 09:09 Dose: 75 mls/hr Azithromycin 500 mg/ Sodium (Chloride) 250 mls @ 250 mls/hr IV.SIG Q24H [facility] Last Admin: 08/28/18 12:07 Dose: 250 mls/hr Metronidazole/Sodium Chloride (Flagyl 500 Mg Inj) 100 mls @ 100 mls/hr IV.SIG Q8H [facility] Last Infusion: 08/28/18 12:09 Dose: Infused Cefepime HCl 2,000 mg/ Sodium (Chloride) 100 mls @ 200 mls/hr IV.SIG Q24H [facility] Last Infusion: 08/28/18 12:09 Dose: Infused Lactulose (Lactulose Liq) 30 ml PO DAILY PRN PRN Reason: SEVERE CONSITIPATION Metoprolol Tartrate (Lopressor) 12.5 mg PO TID [facility] Last Admin: 08/28/18 12:07 Dose: 12.5 mg Miscellaneous (Pill Splitter) 1 each OTHER UNSCH PRN PRN Reason: SEE LABEL COMMENTS Ondansetron HCl (Zofran Inj) 4 mg IV.PUSH Q6H PRN PRN Reason: NAUSEA OR VOMITING Last Admin: 08/16/18 14:05 Dose: 4 mg Ondansetron HCl (Zofran Odt) 4 mg PO Q6H PRN PRN Reason: NAUSEA OR VOMITING Potassium Chloride (K-Dur) 20 meq PO DAILY [facility] Last Admin: 08/28/18 08:16 Dose: 20 meq Promethazine HCl (Phenergan) 25 mg PO Q6H PRN PRN Reason: NAUSEA OR VOMITING Promethazine HCl (Phenergan Supp) 25 mg RECTAL Q6H PRN PRN Reason: NAUSEA OR VOMITING Senna/Docusate Sodium (Aleyda-Colace) 1 tab PO BID [facility] Last Admin: 08/28/18 08:08 Dose: Not Given Sennosides (Senokot) 17.2 mg PO Q12H PRN PRN Reason: Moderate Constipation Sodium Chloride (Ns Flush) 2 ml IV.FLUSH BID [facility] Last Admin: 08/28/18 08:17 Dose: 2 ml Sodium Chloride (Ns Flush) 2 ml IV.FLUSH UNSCH PRN PRN Reason: FLUSH AFTER USING IV ACCESS Warfarin Sodium (Coumadin) 1 mg PO DAILY@1600 [facility] Last Admin: 08/27/18 17:14 Dose: 1 mg Physical Exam Vital signs: Vital Signs 08/27/18 14:00 08/27/18 15:00 08/27/18 16:00 Temperature 98.0 F Pulse Rate 88 82 82 Respiratory Rate Blood Pressure 105/84 113/77 Pulse Oximetry 99 100 99 08/27/18 16:01 08/27/18 17:00 08/27/18 17:19 Temperature Pulse Rate 83 83 82 Respiratory Rate Blood Pressure 113/77 115/88 112/88 Pulse Oximetry 100 100 100 08/27/18 18:00 08/27/18 18:01 08/27/18 19:00 Temperature Pulse Rate 83 83 91 H Respiratory Rate Blood Pressure 114/83 Pulse Oximetry 100 99 99 08/27/18 19:16 08/27/18 20:00 08/27/18 21:00 Temperature 98.1 F Pulse Rate 85 83 77 Respiratory Rate 20 Blood Pressure 120/82 112/86 115/81 Pulse Oximetry 98 100 100 08/27/18 21:40 08/27/18 22:00 08/27/18 23:00 Temperature Pulse Rate 82 87 Respiratory Rate Blood Pressure 111/89 Pulse Oximetry 98 100 68 L 08/27/18 23:07 08/28/18 00:00 08/28/18 00:01 Temperature 98.3 F Pulse Rate 82 83 82 Respiratory Rate 20 Blood Pressure 117/88 117/87 117/87 Pulse Oximetry 100 100 08/28/18 01:00 08/28/18 02:00 08/28/18 03:00 Temperature Pulse Rate 84 86 88 Respiratory Rate Blood Pressure 120/92 H 125/89 Pulse Oximetry 100 100 94 L 08/28/18 04:00 08/28/18 05:00 08/28/18 06:00 Temperature Pulse Rate 77 85 89 Respiratory Rate Blood Pressure 108/67 118/90 116/88 Pulse Oximetry 92 L 100 08/28/18 07:00 08/28/18 08:00 08/28/18 08:35 Temperature 98.3 F Pulse Rate 92 H 94 H Respiratory Rate Blood Pressure 117/87 Pulse Oximetry 99 61 L 96 08/28/18 09:00 08/28/18 10:00 08/28/18 11:00 Temperature Pulse Rate 90 89 90 Respiratory Rate Blood Pressure 121/96 H 117/93 H Pulse Oximetry 100 89 L 89 L 08/28/18 11:08 08/28/18 11:30 08/28/18 12:00 Temperature Pulse Rate 89 92 H 84 Respiratory Rate Blood Pressure 119/92 H 117/95 H Pulse Oximetry 99 95 Intake & Output 08/27/18 08/28/18 08/28/18 18:59 06:59 18:59 Intake Total 657 / 657 350 / 350 200 / 200 Output Total 660 / 660 1190 / 1190 Balance -3 / -3 -840 / -840 200 / 200 Weight 64.5 kg Intake: IV 300 / 300 350 / 350 200 / 200 Azithromycin Inj 500 MG In NS 250 / 250 Inj 250 ML @ 250 mls/hr IV.SIG Q24H [facility] Rx#:[id number] Maxipime Inj 2,000 MG In NS Inj 100 / 100 100 / 100 100 ML @ 200 mls/hr IV.SIG Q24H [facility] Rx#:[id number] Flagyl 500 MG Inj 100 ML @ 100 200 / 200 100 / 100 100 / 100 mls/hr IV.SIG Q8H [facility] Rx#: [id number] Oral 0 / 0 Tube Feeding 297 / 297 Tube Irrigant 60 / 60 Output: Stool 0 / 0 400 / 400 Urine Amount (Catheter) 450 / 450 600 / 600 Indwelling Urethral Catheter 450 / 450 600 / 600 Chest Tube Drainage 210 / 210 190 / 190 Right Mid-Axillary Chest 210 / 210 190 / 190 Other: Date of Last Bowel Movement 08/27/18 08/28/18 08/28/18 - Constitutional no acute distress - Routine HEENT Exam Head: Present: normocephalic Eye: Present: PERRL ENT: Present: mucous membranes moist - Routine Neck Exam Present: full ROM - Routine Respiratory Exam Present: CTA bilaterally - Routine Cardiovascular Exam Present: S1, S2. Absent: murmur, gallop, rubs - Routine Abdominal Exam Present: normoactive bowel sounds - Routine Extremities Exam Present: full ROM, pulses intact, normal capillary refill. Absent: cyanosis, clubbing, edema - Routine Skin Exam Present: intact - Routine Neurological Exam Present: oriented X3 - Detailed Neurological Exam: Coma Scale Eye Opening: Spontaneous Verbal Response: Oriented Motor Response: Obey commands [place] Coma Scale Total: 15 - Routine Psychiatric Exam Present: depressed - Urinary Catheter Management Indwelling Urethral Catheter Cath placed during this visit: yes Reason for continuing: Hourly intake/output Insertion date: 08/16/18 Results 08/28/18 05:00 08/28/18 05:00 Cardiac Enzymes 08/27/18 08/27/18 Range/Units 04:55 11:00 AST 138 H (15-37) U/L B-Natriuretic Peptide Greater than 5000 H (0-100) pg/mL Coagulation 08/27/18 08/27/18 08/28/18 Range/Units 04:55 04:55 05:00 PT 21.1 H 19.3 H (9.8-11.6) sec APTT 37.5 H 34.7 H (23.4-31.7) sec B-Natriuretic Peptide Greater than 5000 H (0-100) pg/mL CBC 08/27/18 08/28/18 Range/Units 04:55 05:00 WBC 14.4 H 10.9 (4.0-11.0) th/mm3 RBC 4.30 4.05 (4.00-5.30) mil/mm3 Hgb 10.2 L 9.6 L (11.6-15.3) gm/dL Hct 30.4 L 29.0 L (35.0-46.0) % Plt Count 81 L 72 L (150-450) th/mm3 Neut # (Auto) 8.2 H (1.8-7.7) th/mm3 Lymph # (Auto) 1.0 (1.0-4.8) th/mm3 [place] # (Auto) 1.6 H (0.0-0.9) th/mm3 Eos # (Auto) 0.0 (0.0-0.4) th/mm3 Baso # (Auto) 0.1 (0.0-0.2) th/mm3 Comprehensive Metabolic Panel 08/26/18 08/27/18 08/27/18 Range/Units 16:54 11:00 11:00 Sodium 156 H* (136-145) meq/L Potassium 2.7 L* 3.7 D (3.5-5.1) meq/L Chloride 114 H (98-107) meq/L Carbon Dioxide 32.3 H (21.0-32.0) meq/L BUN 138 H (7-18) mg/dL Creatinine 2.83 H (0.50-1.00) mg/dL Calcium 9.3 (8.5-10.1) mg/dL Direct Bilirubin 6.2 H Cancelled (0.0-0.2) mg/dL Indirect Bilirubin 2.9 H Cancelled (0.0-0.8) mg/dL AST 138 H (15-37) U/L ALT 53 (10-53) U/L Alkaline Phosphatase 109 (45-117) U/L Total Protein 6.1 L (6.4-8.2) g/dL Albumin 3.7 (3.4-5.0) g/dL 08/28/18 Range/Units 05:00 Sodium 158 H* (136-145) meq/L Potassium 3.0 L (3.5-5.1) meq/L Chloride 115 H (98-107) meq/L Carbon Dioxide 31.3 (21.0-32.0) meq/L BUN 149 H (7-18) mg/dL Creatinine 2.82 H (0.50-1.00) mg/dL Calcium 9.4 (8.5-10.1) mg/dL Direct Bilirubin (0.0-0.2) mg/dL Indirect Bilirubin (0.0-0.8) mg/dL AST (15-37) U/L ALT (10-53) U/L Alkaline Phosphatase (45-117) U/L Total Protein (6.4-8.2) g/dL Albumin (3.4-5.0) g/dL Intake and Output 08/27/18 08/28/18 08/28/18 22:59 06:59 14:59 Intake Total 707 / 707 100 / 100 200 / 200 Output Total 660 / 660 1190 / 1190 Balance 47 / 47 -1090 / -1090 200 / 200 Intake: IV 350 / 350 100 / 100 200 / 200 Azithromycin Inj 500 MG In NS 250 / 250 Inj 250 ML @ 250 mls/hr IV.SIG Q24H [facility] Rx#:[id number] Maxipime Inj 2,000 MG In NS Inj 100 / 100 100 ML @ 200 mls/hr IV.SIG Q24H [facility] Rx#:[id number] Flagyl 500 MG Inj 100 ML @ 100 100 / 100 100 / 100 100 / 100 mls/hr IV.SIG Q8H [facility] Rx#: [id number] Oral 0 / 0 Tube Feeding 297 / 297 Tube Irrigant 60 / 60 Output: Stool 0 / 0 400 / 400 Urine Amount (Catheter) 450 / 450 600 / 600 Indwelling Urethral Catheter 450 / 450 600 / 600 Chest Tube Drainage 210 / 210 190 / 190 Right Mid-Axillary Chest 210 / 210 190 / 190 Other: Date of Last Bowel Movement 08/27/18 08/28/18 08/28/18 Weight 64.5 kg - Imaging and Cardiology Imaging: Impressions Chest X-Ray 08/27/18 00:00 CONCLUSION: Nasogastric tube sidehole is not across the GE junction ET tube is just above the josh Compensated cardiomegaly with minimal consolidative changes left base Assessment and Plan - Assessment (1) Acute exacerbation of CHF (congestive heart failure) Code(s): I50.9 - Heart failure, unspecified Status: Acute (2) Severe sepsis Code(s): A41.9 - Sepsis, unspecified organism; R65.20 - Severe sepsis without septic shock Status: Acute (3) PEA (Pulseless electrical activity) Code(s): I46.9 - Cardiac arrest, cause unspecified Status: Resolved (4) Fluid overload Code(s): E87.70 - Fluid overload, unspecified Status: Acute (5) Acute worsening of stage 3 chronic kidney disease Code(s): N18.3 - Chronic kidney disease, stage 3 (moderate) Status: Acute (6) Anemia Code(s): D64.9 - Anemia, unspecified Status: Acute (7) Pacemaker Code(s): Z95.0 - Presence of cardiac pacemaker Status: Acute (8) Supraventricular tachycardia Code(s): I47.1 - Supraventricular tachycardia Status: Acute (9) Pneumonia Code(s): J18.9 - Pneumonia, unspecified organism Status: Acute (10) Cardiomyopathy Code(s): I42.9 - Cardiomyopathy, unspecified Status: Acute (11) Pulmonary edema Code(s): J81.1 - Chronic pulmonary edema Status: Acute (12) Lactic acidemia Code(s): E87.2 - Acidosis Status: Acute (13) Hypertension Code(s): I10 - Essential (primary) hypertension Status: Acute (14) Cardiogenic shock Code(s): R57.0 - Cardiogenic shock Status: Acute - Plan Patient was extubated and placed on a NC. There have been no new cardiac issues noted at this time. We will continue current management for CHF. Increase her activity as she tolerates, PT. Nephrology evaluation and treatment in progress. Palliative care evaluation in progress. Treatment plan discussed with the patient and her at bedside. We will continue to monitor the patient during her hospitalization and follow up in our office after discharge from the hospital. The patient was seen and evaluated by Dr. Mae who participated in care, management and decision making. - Attending Attestation Patient seen and examined. I reviewed and agree with the evaluation and plan as presented. Continue therapy for CHF. Continue ICU care. Increase activity, PT. Slow but steady progress. (1) Acute exacerbation of CHF (congestive heart failure) Qualifiers: Heart failure type: systolic Qualified Code(s): I50.23 - Acute on chronic systolic (congestive) heart failure (4) Fluid overload Qualifiers: Hypervolemia type: unspecified Qualified Code(s): E87.70 - Fluid overload, unspecified
[2018-08-28] MEDS ORDERED: Fluconazole 100 MG Tablet PO ONE (16:05)
--- NOTE | 2018-08-29 05:31 | XR ---
EXAM DATE: 08/29/2018 5:26 AM EST AGE/SEX: 67 years / Female INDICATIONS: Shortness of breath. CLINICAL DATA: This is the patient's subsequent encounter. Patient reports that signs and symptoms h ave been present for 2 weeks and indicates a pain score of Nonresponsive. MEDICAL/SURGICAL HISTORY: Myocardial infarction. Pacemaker. COMPARISON: [facility], CHEST 1V SINGLE AP, 08/27/2018. . FINDINGS: A pacing implement is present with control pack over the right upper chest. There has been interval e xtubation and removal of nasogastric tube and central line. A right base pigtail thoracostomy tube ap pears to still be in place however not well seen on this radiograph. Mild persistent bibasilar parenc hymal opacities, left worse than right. Grossly stable. Cardiac contours are unchanged. CONCLUSION: Interval extubation. Grossly stable aeration. Electronically signed by: Trung Connell MD Board Certified Radiologist 08/29/2018 5:29 AM EST
[2018-08-29 06:23] LABS: Baso % (Auto) 0.3 % (0.0-2.0); Eos % (Auto) 0.3 % (0.0-4.0); Hematocrit 29.2 % (35.0-46.0); Hemoglobin 9.5 gm/dL (11.6-15.3); Lymph # (Auto) 1.4 th/mm3 (1.0-4.8); Mean Corpuscular HGB Conc 32.5 % (32.0-36.0); Mean Corpuscular Hemoglobin 23.7 pg (27.0-34.0); Mean Corpuscular Volume 72.9 fL (80.0-100.0); Mean Platelet Volume 10.6 fL (7.0-11.0); Mono # (Auto) 1.4 th/mm3 (0.0-0.9); Mono % (Auto) 12.8 % (0.0-8.0); Neut # (Auto) 8.1 th/mm3 (1.8-7.7); Neut % (Auto) 73.6 % (16.0-70.0); Platelet Count 95 th/mm3 (150-450); Red Cell Distribution Width 20.7 % (11.6-17.2); White Blood Count 10.9 th/mm3 (4.0-11.0)
[2018-08-29 06:27] LABS: INR 2.6 Ratio; Prothrombin Time 26.5 sec (9.8-11.6)
[2018-08-29 06:41] LABS: Carbon Dioxide 23.5 meq/L (21.0-32.0); Potassium 3.5 meq/L (3.5-5.1)
[2018-08-29 07:53] LABS: Eosinophils 1 % (0-4); Lymphocytes 11 % (9-44); Monocytes 7 % (0-8); Tallied Nucleated RBC 5 (0-0)
[2018-08-29 07:54] LABS: Spherocytes Occ
[2018-08-29 07:55] LABS: Acanthocytes 1+; Target Cells 2+
--- NOTE | 2018-08-29 09:32 | P.PNNP ---
Subjective Interval history: Lethargic, ill appearing. Serum Na is better, BUN/Creatinine about the same. Physical Exam Vital signs: Vital Signs 08/28/18 10:00 08/28/18 11:00 08/28/18 11:08 Temperature Pulse Rate 89 90 89 Blood Pressure 117/93 H 119/92 H Pulse Oximetry 89 L 89 L 99 08/28/18 11:30 08/28/18 12:00 08/28/18 12:03 Temperature 98.0 F Pulse Rate 92 H 84 86 Blood Pressure 117/95 H 116/86 116/86 Pulse Oximetry 95 100 100 08/28/18 12:30 08/28/18 13:00 08/28/18 13:01 Temperature Pulse Rate 84 85 85 Blood Pressure 105/79 94/67 L Pulse Oximetry 99 99 99 08/28/18 13:12 08/28/18 13:13 08/28/18 13:15 Temperature Pulse Rate 84 83 82 Blood Pressure 92/55 L 83/53 L 79/56 L Pulse Oximetry 97 99 99 08/28/18 13:19 08/28/18 13:30 08/28/18 13:46 Temperature Pulse Rate 81 83 84 Blood Pressure 88/66 L 86/60 L 101/73 Pulse Oximetry 97 97 95 08/28/18 14:00 08/28/18 14:15 08/28/18 14:30 Temperature Pulse Rate 83 83 84 Blood Pressure 105/74 99/79 L 100/73 Pulse Oximetry 93 L 95 97 08/28/18 14:45 08/28/18 15:00 08/28/18 15:16 Temperature Pulse Rate 83 83 82 Blood Pressure 105/71 107/78 110/83 Pulse Oximetry 97 96 97 08/28/18 15:30 08/28/18 15:45 08/28/18 16:00 Temperature 98.2 F Pulse Rate 82 82 81 Blood Pressure 102/82 106/82 98/81 L Pulse Oximetry 96 97 97 08/28/18 16:15 08/28/18 16:23 08/28/18 16:30 Temperature Pulse Rate 81 81 80 Blood Pressure 103/85 109/87 102/85 Pulse Oximetry 99 98 96 08/28/18 16:45 08/28/18 17:00 08/28/18 17:16 Temperature Pulse Rate 81 85 87 Blood Pressure 104/85 107/88 110/85 Pulse Oximetry 96 08/28/18 17:30 08/28/18 17:45 08/28/18 18:00 Temperature Pulse Rate 89 87 85 Blood Pressure 112/89 114/90 118/90 Pulse Oximetry 08/28/18 18:19 08/28/18 18:30 08/28/18 18:46 Temperature Pulse Rate 88 90 91 H Blood Pressure 110/89 109/89 109/94 H Pulse Oximetry 100 98 98 08/28/18 19:00 08/28/18 19:16 08/28/18 19:30 Temperature Pulse Rate 89 88 87 Blood Pressure 113/89 121/90 117/91 H Pulse Oximetry 94 L 08/28/18 19:46 08/28/18 20:00 08/28/18 20:01 Temperature 97.4 F L Pulse Rate 86 87 87 Blood Pressure 108/78 109/92 H 109/92 H Pulse Oximetry 98 08/28/18 20:15 08/28/18 20:30 08/28/18 20:48 Temperature Pulse Rate 87 91 H 83 Blood Pressure 112/87 118/88 105/77 Pulse Oximetry 08/28/18 21:00 08/28/18 22:00 08/28/18 22:45 Temperature Pulse Rate 86 79 88 Blood Pressure 105/83 Pulse Oximetry 08/28/18 23:00 08/28/18 23:01 08/28/18 23:15 Temperature Pulse Rate 85 86 87 Blood Pressure 124/83 124/83 122/90 Pulse Oximetry 08/28/18 23:32 08/28/18 23:47 08/29/18 00:00 Temperature Pulse Rate 87 84 85 Blood Pressure 109/88 118/84 115/84 Pulse Oximetry 08/29/18 00:16 08/29/18 00:30 08/29/18 00:46 Temperature Pulse Rate 88 91 H 87 Blood Pressure 115/88 113/84 123/85 Pulse Oximetry 08/29/18 01:00 08/29/18 01:16 08/29/18 01:31 Temperature Pulse Rate 87 87 91 H Blood Pressure 115/91 H 126/100 H 109/89 Pulse Oximetry 08/29/18 02:00 08/29/18 02:18 08/29/18 03:00 Temperature Pulse Rate 88 90 87 Blood Pressure 138/90 126/75 Pulse Oximetry 08/29/18 04:00 08/29/18 05:00 08/29/18 05:27 Temperature Pulse Rate 86 86 84 Blood Pressure 108/82 Pulse Oximetry 08/29/18 05:30 08/29/18 05:45 08/29/18 06:00 Temperature Pulse Rate 84 85 86 Blood Pressure 117/84 117/85 Pulse Oximetry 08/29/18 06:01 08/29/18 06:15 08/29/18 06:30 Temperature Pulse Rate 87 86 88 Blood Pressure 110/74 119/89 116/95 H Pulse Oximetry 08/29/18 06:46 08/29/18 07:00 08/29/18 07:15 Temperature Pulse Rate 89 81 81 Blood Pressure 122/107 H 100/85 100/77 Pulse Oximetry 97 08/29/18 08:00 Temperature Pulse Rate 85 Blood Pressure Pulse Oximetry Intake & Output 08/28/18 08/29/18 08/29/18 18:59 06:59 18:59 Intake Total 1550 / 1550 1100 / 1100 Output Total 435 / 435 950 / 950 Balance 1115 / 1115 150 / 150 Weight 65.5 kg Intake: IV 550 / 550 1100 / 1100 D5W Inj 1,000 ML @ 75 mls/hr IV 1000 / 1000 .CONT .[id number] [facility] Rx#:[id number] Azithromycin Inj 500 MG In NS 250 / 250 Inj 250 ML @ 250 mls/hr IV.SIG Q24H [facility] Rx#:[id number] Maxipime Inj 2,000 MG In NS Inj 100 / 100 100 ML @ 200 mls/hr IV.SIG Q24H [facility] Rx#:[id number] Flagyl 500 MG Inj 100 ML @ 100 200 / 200 100 / 100 mls/hr IV.SIG Q8H [facility] Rx#: [id number] Oral 1000 / 1000 0 / 0 Output: Stool 100 / 100 Urine Amount (Catheter) 375 / 375 200 / 200 Female External 200 / 200 Indwelling Urethral Catheter 375 / 375 Chest Tube Drainage 60 / 60 650 / 650 Right Mid-Axillary Chest 60 / 60 650 / 650 Other: # Incontinent Voids 5 Date of Last Bowel Movement 08/28/18 08/29/18 08/29/18 # Incontinent Bowel Movements 1 Narrative: GENERAL: lethargic, answers questions. SKIN: warm and dry. HEAD: Normocephalic. CARDIOVASCULAR: Regular rate and rhythm with no murmurs, rubs or gallops. RESPIRATORY: Clear to auscultation bilaterally, chest tube in place on right side. GASTROINTESTINAL: Abdomen soft, non-tender, nondistended. EXTREMITIES: No lower ext edema, NEUROLOGICAL: Responsive, interactive and following commands. - Urinary Catheter Management Indwelling Urethral Catheter Cath placed during this visit: yes, but has since been removed by the nurse Reason for continuing: Decision to DC catheter Insertion date: 08/16/18 Removal date: 08/28/18 Removal time: 18:00 Female External Cath placed during this visit: no Assessment and Plan - Assessment (1) Acute kidney injury superimposed on CKD Code(s): N17.9 - Acute kidney failure, unspecified; N18.9 - Chronic kidney disease, unspecified Status: Acute Plan: Patient remains nonoliguric acute renal failure and chronic kidney disease. She has cardiorenal syndrome. 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 I have discussed it with the patient and her family. Poor prognosis. On D5W for hypernatremia. (2) Acute exacerbation of congestive heart failure Code(s): I50.9 - Heart failure, unspecified Status: Acute Plan: Cardiology following. She has cardiomyopathy EF 20%. (3) Severe sepsis Code(s): A41.9 - Sepsis, unspecified organism; R65.20 - Severe sepsis without septic shock Status: Acute Plan: Patient on Flagyl, Azithromycin, and Cefepime. (4) Pneumonia Code(s): J18.9 - Pneumonia, unspecified organism Status: Acute Plan: Patient is being treated with IV antibiotics (5) Hypokalemia Code(s): E87.6 - Hypokalemia Status: Acute Plan: Replace as needed.
[2018-08-29] MEDS: Senna/Docusate Sodium 8.6/50 MG Tablet PO SCH ×2 (09:50→21:40)
[2018-08-29] MEDS: Metoprolol Tartrate 25 MG Tablet PO SCH ×3 (09:50→17:39)
--- NOTE | 2018-08-29 10:19 | P.PNFP ---
Subjective Interval history: Patient was seen at bedside this morning. There were no acute events overnight. Patient reports feeling "terrific". Patient reports feeling well and tolerating her diet. Overall, her and her feel like they are well- informed. Patient denies any subjective fevers, chills, shortness of breath, chest pain, nausea, or vomiting. All questions were answered to the patient's satisfaction. Results - Labs Result diagrams: 08/29/18 04:53 08/29/18 04:53 Abnormal lab results 08/29/18 08/29/18 08/29/18 Range/Units 04:53 04:53 04:53 Hgb 9.5 L (11.6-15.3) gm/dL Hct 29.2 L (35.0-46.0) % MCV 72.9 L (80.0-100.0) fL MCH 23.7 L (27.0-34.0) pg RDW 20.7 H (11.6-17.2) % Plt Count 95 L D (150-450) th/mm3 Neut % (Auto) 73.6 H (16.0-70.0) % [place] % (Auto) 12.8 H (0.0-8.0) % Neut # (Auto) 8.1 H (1.8-7.7) th/mm3 [place] # (Auto) 1.4 H (0.0-0.9) th/mm3 Seg Neuts % (Manual) 80 H (16-70) % Abs Neuts (Manual) 8.8 H (1.8-7.7) th/mm3 Nucleated RBCs/100 WBC 5 H (0-0) /100 WBC Platelet Estimate Low L (Normal) Platelet Morphology Enlarged H (Normal) Spherocytes Occ H (None) Target Cells 2+ H (None) Acanthocytes (Spur) 1+ H (None) Keratocytes 1+ H (None) PT 26.5 H (9.8-11.6) sec Sodium 150 H (136-145) meq/L Chloride 112 H (98-107) meq/L BUN 147 H (7-18) mg/dL Creatinine 2.87 H (0.50-1.00) mg/dL Estimated GFR 20 L (>89) mL/min Random Glucose 120 H (74-106) mg/dL Short CBC 08/29/18 Range/Units 04:53 WBC 10.9 (4.0-11.0) th/mm3 Hgb 9.5 L (11.6-15.3) gm/dL Hct 29.2 L (35.0-46.0) % Plt Count 95 L D (150-450) th/mm3 BMP 08/29/18 04:53 Sodium 150 H Potassium 3.5 Chloride 112 H Carbon Dioxide 23.5 BUN 147 H Creatinine 2.87 H Calcium 9.0 - Imaging Impressions Chest X-Ray 08/29/18 05:00 CONCLUSION: Interval extubation. Grossly stable aeration. Physical Exam Vital signs: Vital Signs 08/28/18 11:00 08/28/18 11:08 08/28/18 11:30 Temperature Pulse Rate 90 89 92 H Blood Pressure 119/92 H 117/95 H Pulse Oximetry 89 L 99 95 08/28/18 12:00 08/28/18 12:03 08/28/18 12:30 Temperature 98.0 F Pulse Rate 84 86 84 Blood Pressure 116/86 116/86 105/79 Pulse Oximetry 100 100 99 08/28/18 13:00 08/28/18 13:01 08/28/18 13:12 Temperature Pulse Rate 85 85 84 Blood Pressure 94/67 L 92/55 L Pulse Oximetry 99 99 97 08/28/18 13:13 08/28/18 13:15 08/28/18 13:19 Temperature Pulse Rate 83 82 81 Blood Pressure 83/53 L 79/56 L 88/66 L Pulse Oximetry 99 99 97 08/28/18 13:30 08/28/18 13:46 08/28/18 14:00 Temperature Pulse Rate 83 84 83 Blood Pressure 86/60 L 101/73 105/74 Pulse Oximetry 97 95 93 L 08/28/18 14:15 08/28/18 14:30 08/28/18 14:45 Temperature Pulse Rate 83 84 83 Blood Pressure 99/79 L 100/73 105/71 Pulse Oximetry 95 97 97 08/28/18 15:00 08/28/18 15:16 08/28/18 15:30 Temperature Pulse Rate 83 82 82 Blood Pressure 107/78 110/83 102/82 Pulse Oximetry 96 97 96 08/28/18 15:45 08/28/18 16:00 08/28/18 16:15 Temperature 98.2 F Pulse Rate 82 81 81 Blood Pressure 106/82 98/81 L 103/85 Pulse Oximetry 97 97 99 08/28/18 16:23 08/28/18 16:30 08/28/18 16:45 Temperature Pulse Rate 81 80 81 Blood Pressure 109/87 102/85 104/85 Pulse Oximetry 98 96 96 08/28/18 17:00 08/28/18 17:16 08/28/18 17:30 Temperature Pulse Rate 85 87 89 Blood Pressure 107/88 110/85 112/89 Pulse Oximetry 08/28/18 17:45 08/28/18 18:00 08/28/18 18:19 Temperature Pulse Rate 87 85 88 Blood Pressure 114/90 118/90 110/89 Pulse Oximetry 100 08/28/18 18:30 08/28/18 18:46 08/28/18 19:00 Temperature Pulse Rate 90 91 H 89 Blood Pressure 109/89 109/94 H 113/89 Pulse Oximetry 98 98 94 L 08/28/18 19:16 08/28/18 19:30 08/28/18 19:46 Temperature Pulse Rate 88 87 86 Blood Pressure 121/90 117/91 H 108/78 Pulse Oximetry 08/28/18 20:00 08/28/18 20:01 08/28/18 20:15 Temperature 97.4 F L Pulse Rate 87 87 87 Blood Pressure 109/92 H 109/92 H 112/87 Pulse Oximetry 98 08/28/18 20:30 08/28/18 20:48 08/28/18 21:00 Temperature Pulse Rate 91 H 83 86 Blood Pressure 118/88 105/77 Pulse Oximetry 08/28/18 22:00 08/28/18 22:45 08/28/18 23:00 Temperature Pulse Rate 79 88 85 Blood Pressure 105/83 124/83 Pulse Oximetry 08/28/18 23:01 08/28/18 23:15 08/28/18 23:32 Temperature Pulse Rate 86 87 87 Blood Pressure 124/83 122/90 109/88 Pulse Oximetry 08/28/18 23:47 08/29/18 00:00 08/29/18 00:16 Temperature Pulse Rate 84 85 88 Blood Pressure 118/84 115/84 115/88 Pulse Oximetry 08/29/18 00:30 08/29/18 00:46 08/29/18 01:00 Temperature Pulse Rate 91 H 87 87 Blood Pressure 113/84 123/85 115/91 H Pulse Oximetry 08/29/18 01:16 08/29/18 01:31 08/29/18 02:00 Temperature Pulse Rate 87 91 H 88 Blood Pressure 126/100 H 109/89 138/90 Pulse Oximetry 08/29/18 02:18 08/29/18 03:00 08/29/18 04:00 Temperature Pulse Rate 90 87 86 Blood Pressure 126/75 Pulse Oximetry 08/29/18 05:00 08/29/18 05:27 08/29/18 05:30 Temperature Pulse Rate 86 84 84 Blood Pressure 108/82 117/84 Pulse Oximetry 08/29/18 05:45 08/29/18 06:00 08/29/18 06:01 Temperature Pulse Rate 85 86 87 Blood Pressure 117/85 110/74 Pulse Oximetry 08/29/18 06:15 08/29/18 06:30 08/29/18 06:46 Temperature Pulse Rate 86 88 89 Blood Pressure 119/89 116/95 H 122/107 H Pulse Oximetry 08/29/18 07:00 08/29/18 07:15 08/29/18 08:00 Temperature Pulse Rate 81 81 85 Blood Pressure 100/85 100/77 Pulse Oximetry 97 Intake & Output 08/28/18 08/29/18 08/29/18 18:59 06:59 18:59 Intake Total 1550 / 1550 1100 / 1100 Output Total 435 / 435 950 / 950 Balance 1115 / 1115 150 / 150 Weight 65.5 kg Intake: IV 550 / 550 1100 / 1100 D5W Inj 1,000 ML @ 75 mls/hr IV 1000 / 1000 .CONT .[id number] ANAHI Rx#:[id number] Azithromycin Inj 500 MG In NS 250 / 250 Inj 250 ML @ 250 mls/hr IV.SIG Q24H ANAHI Rx#:[id number] Maxipime Inj 2,000 MG In NS Inj 100 / 100 100 ML @ 200 mls/hr IV.SIG Q24H ANAHI Rx#:[id number] Flagyl 500 MG Inj 100 ML @ 100 200 / 200 100 / 100 mls/hr IV.SIG Q8H ANAHI Rx#: [id number] Oral 1000 / 1000 0 / 0 Output: Stool 100 / 100 Urine Amount (Catheter) 375 / 375 200 / 200 Female External 200 / 200 Indwelling Urethral Catheter 375 / 375 Chest Tube Drainage 60 / 60 650 / 650 Right Mid-Axillary Chest 60 / 60 650 / 650 Other: # Incontinent Voids 5 Date of Last Bowel Movement 08/28/18 08/29/18 08/29/18 # Incontinent Bowel Movements 1 Narrative: GENERAL: Awake alert but tired. SKIN: warm and dry. HEAD: Normocephalic. CARDIOVASCULAR: Regular rate and rhythm with no murmurs, rubs or gallops. RESPIRATORY: Clear to auscultation bilaterally, chest tube in place on right side. GASTROINTESTINAL: Abdomen soft, non-tender, nondistended. EXTREMITIES: No lower ext edema, NEUROLOGICAL: Responsive, interactive and following commands. - Urinary Catheter Management Indwelling Urethral Catheter Cath placed during this visit: yes, but has since been removed by the nurse Reason for continuing: Decision to DC catheter Insertion date: 08/16/18 Removal date: 08/28/18 Removal time: 18:00 Female External Cath placed during this visit: no Assessment and Plan - Assessment (1) Severe sepsis Code(s): A41.9 - Sepsis, unspecified organism; R65.20 - Severe sepsis without septic shock Status: Acute Plan: Community-acquired pneumonia complicated by lower extremity edema in the setting of CHF with an EF of 20%. Patient status post thoracentesis for pleural effusion. -Intubated mechanically ventilated, extubated on 08/27 -Blood cultures (08/15): No growth to date -Pleural fluid Gram stain and cultures no growth to date -WBC count downtrending to 10.9 today from 14.4 yesterday Plan: Per Od Grinder Operator: Continue - Flagyl 500 mg every 8h (08/15-) - Cefepime 2000 mg every 8 hours (08/15-) - Azithromycin 500mg (08/16-) -Continue Diuril 500mg BID -extubated on 08/27 -New blood, urine, and sputum cultures ordered on 08/27 due to increase in white count urine cx: chi albicans fluconazole 150mg x1 ordered blood cx no growth x1 day and sputum cx mod normal respiratory bear -Possible transfer out of ICU tomorrow pending bps Palliative care following, goals of care remain aggressive. (2) Pneumonia Code(s): J18.9 - Pneumonia, unspecified organism Status: Acute Plan: Community acquired right-sided pneumonia with lactic acidosis. -DuoNeb every 2 hours as needed -Sputum culture: Moderate growth normal respiratory bear -Respiratory panel uncollected -Continue with antibiotics per critical care team as dictated above -Repeat CXR 08/25: Improved aeration in left lower lobe. -Repeat CXR 08/27:Nasogastric tube sidehole is not across the GE junction ET tube is just above the josh. Compensated cardiomegaly with minimal consolidative changes left base -Repeat CXR 08/29: Mild bibasilar parenchymal opacities, left worse than right, grossly stable. Cardiac contour is unchanged. (3) Acute exacerbation of CHF (congestive heart failure) Code(s): I50.9 - Heart failure, unspecified Status: Acute Plan: -BNP 4000 on admission -Bumex discontinued and patient now on Diuril 500mg BID -No lower extremity edema -Echo 08/17: EF 20%, fairly dilated left ventricle, severe mitral regurgitation -Urine output slightly decreased today at 0.68 ml/kg -BNP this morning of > 5000 -Cardiology following and agree with current plan Per cardiology prognosis is poor. (4) Acute on chronic kidney failure Code(s): N17.9 - Acute kidney failure, unspecified; N18.9 - Chronic kidney disease, unspecified Status: Acute Plan: This patient stage III CKD with elevated creatinine above baseline on admission. Possibly due to decrease intravascular volume in the setting of sepsis. -Creatinine on admission 2.72 from baseline of 1.5. -Creatinine decreased to 2.87 today -Urine output 0.37 ml/kg/hr Plan: -Trend kidney function -Trend I/O -Nephrology following Due to patient's severe cardiomyopathy with EF of <20% she is not a good candidate for dialysis (5) Pleural effusion Code(s): J90 - Pleural effusion, not elsewhere classified Status: Acute Plan: Patient status post right sided thoracentesis (08/16/18) with evacuation of approximately 950 ml of slightly cloudy, yellow colored fluid was removed. -Patient underwent therapeutic right sided chest tube placement with pigtail that drained 950ml of slightly cloudy yellow fluid. -08/16: Pleural fluid showed 1,333 red blood cells with 230 nucleated cells. Fluid consistent with transudative process. Cultures show no growth to date. Plan: -Chest tube draining approx 710 ml overnight -Monitor chest tube output -Continue pulmonary care as stated above (6) PEA (Pulseless electrical activity) Code(s): I46.9 - Cardiac arrest, cause unspecified Status: Resolved Plan: Patient required ACLS for 9 minutes on 08/16/18 for PEA arrest -ROSC was achieved by critical care medicine -Patient was intubated and sedated and treated with pressor support See treatment for severe sepsis (7) Hypertension Code(s): I10 - Essential (primary) hypertension Status: Acute Plan: History of hypertension. PEA required intubation and mech vent. Patient initially required pressors now off. -Lopressor 12.5 TID (8) Supratherapeutic INR Code(s): R79.1 - Abnormal coagulation profile Status: Resolved Plan: History of Afib on warfarin but supratherapeutic on admission. INR now 2.6. -continue Wafarin 1mg daily -monitor INR (9) Nutrition, metabolism, and development symptoms Code(s): R63.8 - Other symptoms and signs concerning food and fluid intake Status: Acute Plan: Fluids: Per classifier tender Electrolytes: Replete as needed Nutrition: mechanical soft DVT prophylaxis: Coumadin (3) Acute exacerbation of CHF (congestive heart failure) Qualifiers: Heart failure type: systolic Qualified Code(s): I50.23 - Acute on chronic systolic (congestive) heart failure (4) Acute on chronic kidney failure Qualifiers: Acute renal failure type: unspecified Chronic kidney disease stage: stage 4 ( severe) Qualified Code(s): N17.9 - Acute kidney failure, unspecified; N18.4 - Chronic kidney disease, stage 4 (severe)
[2018-08-29] MEDS: Dextrose 5% in Water Inj 1,000 ML IV.CONT SCH (10:58)
--- NOTE | 2018-08-29 13:26 | P.PNCC ---
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 Patient also had productive cough and frothy sputum, sometimes blood tinged. She also complained about declining urinary output. Initial ER workup showed a normal white count, however BUN was elevated at 80 and creatinine 2.72. BNP was more than 4000. Chest x-ray showed right midlung infiltrate. Patient received Rocephin and azithromycin for community-acquired pneumonia. Patient was admitted to the [facility]. After admission due to the shortness of breath pedal edema and elevated BNP [facility] gave the patient 20 mg IV Lasix but without much urine output. Initially patient had HR of 170's EKG appeared to be SVT and patient converted to NSR with IV Cardizem 25 mg. However patient's blood pressure started to decline. Because of this patient was given IV fluid boluses total 1.5 L had been given. Systolic blood pressure remains at 70s. Lactic acid was checked and was 8.1. With this information critical care medicine was consulted I evaluated the patient emergently. She is lethargic but wakes up easily answers questions. Still profoundly hypotensive despite 1.5 L bolus. I have ordered additional 500 mL bolus and will start Levophed at 5 mcg/min and titrate as needed. It was noted had that her INR is 5.2. Patient may benefit from inotropic agents if blood pressure improves. Antibiotics had been broadened into cefepime and azithromycin, I will also add IV Zyvox. Hold all further diuresis due to septic shock. Patient is very critical at this time 08/16: Patient sitting up in bed. Off Levophed however urine output is minimal only 75 mL urine output since admission. CVP remains elevated at 14-15. I will attempt forced diuresis with Bumex 2 mg x1 and Bumex 0.5 mg/h infusion. If no response may need hemodialysis. Follow-up chest x-ray today is pending. Chest x-ray shows persistent right sided infiltrate and effusion 08/17: Patient developed PEA cardiac arrest yesterday afternoon. No immediate inciting factors could be identified however most likely cardiac. 2D echo ordered pending. CT of the head pending. Currently patient had been weaned off all of the pressors however remains encephalopathy. Creatinine is worsening to 3.8 however urine output has improved approximately 500 ml UO in the last 12 hours. 08/18: Patient remains intubated lightly sedated. On lightening sedation patient wakes up easily following commands. Remains on Bumex infusion approximately 6 L urine output. However chest x-ray showing pulmonary edema. Remains off pressors. Will attempt CPAP trials. CT head did not show any acute finding 08/19: Diuresing well with Bumex infusion achieving negative balance however chest x-ray shows bilateral pulmonary vascular congestion and bilateral at least moderate effusions. These are secondary to decompensated heart failure. EF is less than 20 with severe MR. Creatinine down to 3. Prognosis overall is poor despite milrinone and diuresis patient is not proving adequately. We will consult palliative care to address goals of care 08/20: Patient continues to be in decompensated congestive heart failure. Despite increasing Bumex to 2 mg/h, urine output has decreased to 1.6 L in 24 hours. Chest x-ray continued to show bilateral large pleural effusions. Right- sided pigtail chest tube was placed today with 1 L output initially. Milrinone discontinued due to increasing ventricular irritability. 08/21: Remains sedated, orally intubated on mechanical ventilation. Bumex drip continues. 08/22: Off sedation since 08/18. Intubated and on PSV / CPAP. Not following commands. 08/23: Intubated and on PRVC A/C currently. Had tachycardia during CPAP trials today. She is following commands now. 08/24: Intubated and currently on CPAP / PSV w/ pressures of 10/5. When pressure support was decreased to 7/5 she became tachypneic 08/25: On mechanical ventilation. Awake, follows commands. Significant output from right-sided pigtail catheter. 08/26: Remains on mechanical ventilation. Remains off sedation. Awake, follows commands. Drained about 1 L from right pigtail catheter. Added free water for hypernatremia. BUN remains elevated. 08/27: Mechanically ventilated, off sedation. Awake and following commands. Pigtail catheter drained 150cc today, but is obstructed by thick fluid. 08/28: Extubated yesterday PM, off sedation. Awake, alert. Reports she is comfortable with no CP, SOB, or abdominal pain. Pigtail catheter drained ~190 cc last 24 hours. Off all pressors. Getting D5W IV for hypernatremia. 08/29: Extubated yesterday tolerating well breathing comfortably. Sodium trending down 150 today. Diflucan started by family practice for urine culture with Belkis. Chest tube right-sided still with high output 710 mL in 24 hours Objective Vital Signs / I&O: Vital Signs 08/28/18 13:30 08/28/18 13:46 08/28/18 14:00 Temperature Pulse Rate 83 84 83 Blood Pressure 86/60 L 101/73 105/74 Pulse Oximetry 97 95 93 L 08/28/18 14:15 08/28/18 14:30 08/28/18 14:45 Temperature Pulse Rate 83 84 83 Blood Pressure 99/79 L 100/73 105/71 Pulse Oximetry 95 97 97 08/28/18 15:00 08/28/18 15:16 08/28/18 15:30 Temperature Pulse Rate 83 82 82 Blood Pressure 107/78 110/83 102/82 Pulse Oximetry 96 97 96 08/28/18 15:45 08/28/18 16:00 08/28/18 16:15 Temperature 98.2 F Pulse Rate 82 81 81 Blood Pressure 106/82 98/81 L 103/85 Pulse Oximetry 97 97 99 08/28/18 16:23 08/28/18 16:30 08/28/18 16:45 Temperature Pulse Rate 81 80 81 Blood Pressure 109/87 102/85 104/85 Pulse Oximetry 98 96 96 08/28/18 17:00 08/28/18 17:16 08/28/18 17:30 Temperature Pulse Rate 85 87 89 Blood Pressure 107/88 110/85 112/89 Pulse Oximetry 08/28/18 17:45 08/28/18 18:00 08/28/18 18:19 Temperature Pulse Rate 87 85 88 Blood Pressure 114/90 118/90 110/89 Pulse Oximetry 100 08/28/18 18:30 08/28/18 18:46 08/28/18 19:00 Temperature Pulse Rate 90 91 H 89 Blood Pressure 109/89 109/94 H 113/89 Pulse Oximetry 98 98 94 L 08/28/18 19:16 08/28/18 19:30 08/28/18 19:46 Temperature Pulse Rate 88 87 86 Blood Pressure 121/90 117/91 H 108/78 Pulse Oximetry 08/28/18 20:00 08/28/18 20:01 08/28/18 20:15 Temperature 97.4 F L Pulse Rate 87 87 87 Blood Pressure 109/92 H 109/92 H 112/87 Pulse Oximetry 98 08/28/18 20:30 08/28/18 20:48 08/28/18 21:00 Temperature Pulse Rate 91 H 83 86 Blood Pressure 118/88 105/77 Pulse Oximetry 08/28/18 22:00 08/28/18 22:45 08/28/18 23:00 Temperature Pulse Rate 79 88 85 Blood Pressure 105/83 124/83 Pulse Oximetry 08/28/18 23:01 08/28/18 23:15 08/28/18 23:32 Temperature Pulse Rate 86 87 87 Blood Pressure 124/83 122/90 109/88 Pulse Oximetry 08/28/18 23:47 08/29/18 00:00 08/29/18 00:16 Temperature Pulse Rate 84 85 88 Blood Pressure 118/84 115/84 115/88 Pulse Oximetry 08/29/18 00:30 08/29/18 00:46 08/29/18 01:00 Temperature Pulse Rate 91 H 87 87 Blood Pressure 113/84 123/85 115/91 H Pulse Oximetry 08/29/18 01:16 08/29/18 01:31 08/29/18 02:00 Temperature Pulse Rate 87 91 H 88 Blood Pressure 126/100 H 109/89 138/90 Pulse Oximetry 08/29/18 02:18 08/29/18 03:00 08/29/18 04:00 Temperature Pulse Rate 90 87 86 Blood Pressure 126/75 Pulse Oximetry 08/29/18 05:00 08/29/18 05:27 08/29/18 05:30 Temperature Pulse Rate 86 84 84 Blood Pressure 108/82 117/84 Pulse Oximetry 08/29/18 05:45 08/29/18 06:00 08/29/18 06:01 Temperature Pulse Rate 85 86 87 Blood Pressure 117/85 110/74 Pulse Oximetry 08/29/18 06:15 08/29/18 06:30 08/29/18 06:46 Temperature Pulse Rate 86 88 89 Blood Pressure 119/89 116/95 H 122/107 H Pulse Oximetry 08/29/18 07:00 08/29/18 07:15 08/29/18 07:47 Temperature Pulse Rate 81 81 85 Blood Pressure 100/85 100/77 121/84 Pulse Oximetry 97 08/29/18 08:00 08/29/18 08:15 08/29/18 08:31 Temperature 97.4 F L Pulse Rate 85 85 85 Blood Pressure 120/92 H 123/82 127/89 Pulse Oximetry 96 94 L 93 L 08/29/18 08:45 08/29/18 09:00 08/29/18 09:02 Temperature Pulse Rate 86 88 87 Blood Pressure 121/88 125/86 Pulse Oximetry 97 81 L 85 L 08/29/18 09:15 08/29/18 09:41 08/29/18 09:46 Temperature Pulse Rate 84 85 85 Blood Pressure 113/91 H 118/89 118/82 Pulse Oximetry 73 L 94 L 98 08/29/18 10:00 08/29/18 10:16 08/29/18 10:30 Temperature Pulse Rate 86 83 83 Blood Pressure 126/90 116/95 H 119/100 H Pulse Oximetry 100 100 100 08/29/18 10:45 08/29/18 11:00 08/29/18 11:01 Temperature Pulse Rate 85 81 81 Blood Pressure 117/90 129/92 H Pulse Oximetry 99 96 99 08/29/18 11:15 08/29/18 11:30 08/29/18 12:00 Temperature Pulse Rate 79 81 79 Blood Pressure 121/85 113/86 Pulse Oximetry 100 100 95 08/29/18 12:01 08/29/18 12:15 Temperature Pulse Rate 79 81 Blood Pressure 108/76 107/83 Pulse Oximetry 94 L 100 Intake & Output 08/28/18 08/29/18 08/29/18 18:59 06:59 18:59 Intake Total 1550 / 1550 1100 / 1100 1100 / 1100 Output Total 435 / 435 950 / 950 Balance 1115 / 1115 150 / 150 1100 / 1100 Weight 65.5 kg Intake: IV 550 / 550 1100 / 1100 1100 / 1100 D5W Inj 1,000 ML @ 75 mls/hr IV 1000 / 1000 1000 / 1000 .CONT .[id number] ANAHI Rx#:[id number] Azithromycin Inj 500 MG In NS 250 / 250 Inj 250 ML @ 250 mls/hr IV.SIG Q24H ANAHI Rx#:[id number] Maxipime Inj 2,000 MG In NS Inj 100 / 100 100 ML @ 200 mls/hr IV.SIG Q24H ANAHI Rx#:[id number] Flagyl 500 MG Inj 100 ML @ 100 200 / 200 100 / 100 100 / 100 mls/hr IV.SIG Q8H ANAHI Rx#: [id number] Oral 1000 / 1000 0 / 0 Output: Stool 100 / 100 Urine Amount (Catheter) 375 / 375 200 / 200 Female External 200 / 200 Indwelling Urethral Catheter 375 / 375 Chest Tube Drainage 60 / 60 650 / 650 Right Mid-Axillary Chest 60 / 60 650 / 650 Other: # Incontinent Voids 5 Date of Last Bowel Movement 08/28/18 08/29/18 08/29/18 # Incontinent Bowel Movements 1 Result Diagrams: 08/29/18 04:53 08/29/18 04:53 Objective Remarks: General: Chronically ill-appearing -[place] female who is resting in bed comfortably HEENT: Normocephalic and atraumatic. MMM. PERRL. Mild right facial droop. Neck: Supple, no JVD Chest: Scar from AICD placement on the left upper chest. AICD now in right upper chest. Resp: Air entry slightly diminished in the right mid chest, occasional wet crackles heard. No wheezes or rhonchi. Chest tube in place 710 ml in 24 hours. Rate: NRRR without murmur GI: Abdomen soft and non-tender to palpation Skin: No rashes or lesions noted, dry skin Neuro: Awake and alert, following commands, oriented to situation. No new focal deficits. There is persistent mild right facial droop which appears chronic Assessment and Plan - Problem List (1) Severe sepsis Code(s): A41.9 - Sepsis, unspecified organism; R65.20 - Severe sepsis without septic shock Status: Acute (2) Pneumonia Code(s): J18.9 - Pneumonia, unspecified organism Status: Acute (3) Acute exacerbation of CHF (congestive heart failure) Code(s): I50.9 - Heart failure, unspecified Status: Acute (4) Acute on chronic kidney failure Code(s): N17.9 - Acute kidney failure, unspecified; N18.9 - Chronic kidney disease, unspecified Status: Acute (5) Pleural effusion Code(s): J90 - Pleural effusion, not elsewhere classified Status: Acute (6) PEA (Pulseless electrical activity) Code(s): I46.9 - Cardiac arrest, cause unspecified Status: Resolved (7) Hypertension Code(s): I10 - Essential (primary) hypertension Status: Acute (8) Supratherapeutic INR Code(s): R79.1 - Abnormal coagulation profile Status: Resolved (9) Cardiorenal syndrome Code(s): I13.10 - Hypertensive heart and chronic kidney disease without heart failure, with stage 1 through stage 4 chronic kidney disease, or unspecified chronic kidney disease Status: Deleted (10) Nutrition, metabolism, and development symptoms Code(s): R63.8 - Other symptoms and signs concerning food and fluid intake Status: Acute - Assessment and Plan Plan: ASSESSMENT: PEA cardiac arrest Decompensated systolic heart failure Bilateral pleural effusion/pulmonary edema Severe biventricular failure Acute metabolic encephalopathy Septic shock - improving Cardiogenic shock - resolved Acute respiratory failure - resolved Severe MR, TR Right sided pneumonia, with effusion Lactic acidemia - improving Acute on chronic kidney disease Belkis UTI Supratherapeutic INR Mild troponin elevation SVT - resolved Hypokalemia Cardiomyopathy ejection fraction 20% Chronic kidney disease Hypertension History of CVA in 2017 Chronic anticoagulation with Coumadin PLAN: NEURO: -Prior metabolic encephalopathy secondary to sepsis, no evidence of significant anoxic injury from PEA arrest, now awake, alert, following commands -No evidence of new CVA at this time. CT 08/17 of the head negative for acute findings old right frontal stroke -Continue to monitor neuro status - no neuro checks needed at this point unless new symptoms arise RESP: -Status post ultrasound-guided thoracentesis, studies consistent with transudative versus early exudative effusion -Status post right pigtail chest tube placement (08/20) continues to have high output -Intubated and placed on mechanical ventilation during CPR 08/16/18, now extubated as of 08/27 PM -Pigtail still draining significant pleural fluid, will check daily CXR CV: -Following PEA cardiac arrest patient was on epinephrine and Levophed infusion as well as milrinone. Now off all pressor support. -2D echo previously showing EF 20-25%. Repeat 2D echo showed severely dilated right and left ventricle with severe biventricular dysfunction. LV EF less than 20%. Severe MR and TR. -BID chlorthalidone 500 mg twice daily per nephrology -wallpaper consultant following, appreciate assistance -Diltiazem drip stopped 08/23. Received 0.5 mg of digoxin 08/23. Lopressor 12.5 mg 3 times daily GI: -IV famotidine -Advance diet as tolerated -Total bilirubin has been increasing, recheck CMP am -Check ultrasound of the liver, rule out obstruction RENAL: -Monitor renal function closely. Bradley catheter. -Nephrology following: Chlorthalidone 500 daily, D5W through IV for hypernatremia nephrology does not think she would tolerate dialysis ID: -Continue empiric cefepime, Flagyl and azithromycin -Blood and pleural fluid cultures negative to date. Sputum cx taken 08/22 showed moderate growth of respiratory bear. -WBC improving -Follow repeat cultures, NGTD -Belkis in urine culture, Diflucan given by [facility] HEME: -Mild stable anemia -Monitor CBC and coags daily -Restarted warfarin on 08/23: 1 mg p.o. daily (INR goal of 2-3). INR 2.6 today ENDO: -Electrolyte replacement as needed PROPH: -Bilateral lower extremity SCDs. PO famotidine. LINES: -Utilize peripheral IVs -Left IJ central line placed 08/15/2018, removed -Right femoral arterial line placed 08/16, now removed -Intubation and left femoral central line placement 08/16/2018, now removed -Right pigtail chest tube placed 08/20/2018, still with significant output DISPOSITION: -Potentially can recover from this episode and make it to hospital discharge -Long-term prognosis is poor to her neurologic, cardiovascular, and respiratory status -Palliative care is following, with her medical problems would be a candidate for hospice if goals of care consistent with avoiding aggressive measures level 2 (3) Acute exacerbation of CHF (congestive heart failure) Qualifiers: Heart failure type: systolic Qualified Code(s): I50.23 - Acute on chronic systolic (congestive) heart failure (4) Acute on chronic kidney failure Qualifiers: Acute renal failure type: unspecified Chronic kidney disease stage: stage 4 ( severe) Qualified Code(s): N17.9 - Acute kidney failure, unspecified; N18.4 - Chronic kidney disease, stage 4 (severe)
[2018-08-29] MEDS: Azithromycin Inj 500 MG in Sodium Chlor 0.9% Inj 250 ML IV.SIG SCH (13:40)
--- NOTE | 2018-08-29 16:59 | P.PNCA ---
Subjective Interval history: Patient is resting in bed in no acute distress. She is more alert today and denies any CP, pressure, palpitations or dizziness. She does complain of mild SOB due to her position in bed. Medications and Allergies Allergies Allergy/AdvReac Type Severity Reaction Status Date / Time iodine Allergy Severe sneezing, Verified 08/15/18 08:37 chest tightness potassium iodide Allergy Severe sneezing, Verified 08/15/18 08:37 chest tightness povidone-iodine Allergy Severe sneezing, Verified 08/15/18 08:37 chest tightness sodium iodide Allergy Severe sneezing, Verified 08/15/18 08:37 chest tightness sodium iodide Allergy Severe sneezing, Verified 08/15/18 08:37 chest tightness sulfamethoxazole Allergy Intermediate abdominal Verified 08/15/18 08:37 pain trimethoprim Allergy Intermediate abdominal Verified 08/15/18 08:37 pain hydralazine Allergy Unknown Edema Verified 08/15/18 08:37 Statins Allergy Intermediate Hives Uncoded 08/15/18 08:37 Home Medications Medication Instructions Recorded Confirmed Type bumetanide 2 mg PO DAILY 05/21/18 08/15/18 History carvedilol 25 mg PO BID 05/21/18 08/15/18 History potassium chloride 20 meq PO DAILY 05/21/18 08/15/18 History spironolactone 50 mg PO DAILY 05/21/18 08/15/18 History warfarin 2 mg PO DAILY 08/15/18 08/15/18 History Active Medications: Active Medications Acetaminophen (Tylenol) 650 mg PO Q4H PRN PRN Reason: Temp > 100.4 Al Hydroxide/Mg Hydroxide (Milk Of Everardo Liq) 30 ml PO Q12H PRN PRN Reason: Mild Constipation Bisacodyl (Dulcolax Supp) 10 mg RECTAL DAILY PRN PRN Reason: SEVERE CONSITIPATION Dextrose (D5w Inj) 1,000 mls @ 75 mls/hr IV.CONT .[id number] [facility] Last Admin: 08/29/18 10:58 Dose: 75 mls/hr Azithromycin 500 mg/ Sodium (Chloride) 250 mls @ 250 mls/hr IV.SIG Q24H [facility] Last Admin: 08/29/18 13:40 Dose: 250 mls/hr Metronidazole/Sodium Chloride (Flagyl 500 Mg Inj) 100 mls @ 100 mls/hr IV.SIG Q8H [facility] Last Infusion: 08/29/18 10:48 Dose: Infused Cefepime HCl 2,000 mg/ Sodium (Chloride) 100 mls @ 200 mls/hr IV.SIG Q24H [facility] Last Infusion: 08/29/18 10:19 Dose: Infused Lactulose (Lactulose Liq) 30 ml PO DAILY PRN PRN Reason: SEVERE CONSITIPATION Metoprolol Tartrate (Lopressor) 12.5 mg PO TID [facility] Last Admin: 08/29/18 13:39 Dose: 12.5 mg Miscellaneous (Pill Splitter) 1 each OTHER UNSCH PRN PRN Reason: SEE LABEL COMMENTS Miscellaneous (Pill Splitter) 1 each OTHER UNSCH PRN PRN Reason: SEE LABEL COMMENTS Ondansetron HCl (Zofran Inj) 4 mg IV.PUSH Q6H PRN PRN Reason: NAUSEA OR VOMITING Last Admin: 08/16/18 14:05 Dose: 4 mg Ondansetron HCl (Zofran Odt) 4 mg PO Q6H PRN PRN Reason: NAUSEA OR VOMITING Potassium Chloride (K-Dur) 20 meq PO DAILY [facility] Last Admin: 08/29/18 09:49 Dose: 20 meq Promethazine HCl (Phenergan) 25 mg PO Q6H PRN PRN Reason: NAUSEA OR VOMITING Promethazine HCl (Phenergan Supp) 25 mg RECTAL Q6H PRN PRN Reason: NAUSEA OR VOMITING Senna/Docusate Sodium (Aleyda-Colace) 1 tab PO BID [facility] Last Admin: 08/29/18 09:50 Dose: 1 tab Sennosides (Senokot) 17.2 mg PO Q12H PRN PRN Reason: Moderate Constipation Sodium Chloride (Ns Flush) 2 ml IV.FLUSH BID [facility] Last Admin: 08/29/18 09:50 Dose: 2 ml Sodium Chloride (Ns Flush) 2 ml IV.FLUSH UNSCH PRN PRN Reason: FLUSH AFTER USING IV ACCESS Warfarin Sodium (Coumadin) 1 mg PO DAILY@1600 [facility] Last Admin: 08/28/18 16:45 Dose: 1 mg Physical Exam Vital signs: Vital Signs 08/28/18 17:00 08/28/18 17:16 08/28/18 17:30 Temperature Pulse Rate 85 87 89 Blood Pressure 107/88 110/85 112/89 Pulse Oximetry 08/28/18 17:45 08/28/18 18:00 08/28/18 18:19 Temperature Pulse Rate 87 85 88 Blood Pressure 114/90 118/90 110/89 Pulse Oximetry 100 08/28/18 18:30 08/28/18 18:46 08/28/18 19:00 Temperature Pulse Rate 90 91 H 89 Blood Pressure 109/89 109/94 H 113/89 Pulse Oximetry 98 98 94 L 08/28/18 19:16 08/28/18 19:30 08/28/18 19:46 Temperature Pulse Rate 88 87 86 Blood Pressure 121/90 117/91 H 108/78 Pulse Oximetry 08/28/18 20:00 08/28/18 20:01 08/28/18 20:15 Temperature 97.4 F L Pulse Rate 87 87 87 Blood Pressure 109/92 H 109/92 H 112/87 Pulse Oximetry 98 08/28/18 20:30 08/28/18 20:48 08/28/18 21:00 Temperature Pulse Rate 91 H 83 86 Blood Pressure 118/88 105/77 Pulse Oximetry 08/28/18 22:00 08/28/18 22:45 08/28/18 23:00 Temperature Pulse Rate 79 88 85 Blood Pressure 105/83 124/83 Pulse Oximetry 08/28/18 23:01 08/28/18 23:15 08/28/18 23:32 Temperature Pulse Rate 86 87 87 Blood Pressure 124/83 122/90 109/88 Pulse Oximetry 08/28/18 23:47 08/29/18 00:00 08/29/18 00:16 Temperature Pulse Rate 84 85 88 Blood Pressure 118/84 115/84 115/88 Pulse Oximetry 08/29/18 00:30 08/29/18 00:46 08/29/18 01:00 Temperature Pulse Rate 91 H 87 87 Blood Pressure 113/84 123/85 115/91 H Pulse Oximetry 08/29/18 01:16 08/29/18 01:31 08/29/18 02:00 Temperature Pulse Rate 87 91 H 88 Blood Pressure 126/100 H 109/89 138/90 Pulse Oximetry 08/29/18 02:18 08/29/18 03:00 08/29/18 04:00 Temperature Pulse Rate 90 87 86 Blood Pressure 126/75 Pulse Oximetry 08/29/18 05:00 08/29/18 05:27 08/29/18 05:30 Temperature Pulse Rate 86 84 84 Blood Pressure 108/82 117/84 Pulse Oximetry 08/29/18 05:45 08/29/18 06:00 08/29/18 06:01 Temperature Pulse Rate 85 86 87 Blood Pressure 117/85 110/74 Pulse Oximetry 08/29/18 06:15 08/29/18 06:30 08/29/18 06:46 Temperature Pulse Rate 86 88 89 Blood Pressure 119/89 116/95 H 122/107 H Pulse Oximetry 08/29/18 07:00 08/29/18 07:15 08/29/18 07:47 Temperature Pulse Rate 81 81 85 Blood Pressure 100/85 100/77 121/84 Pulse Oximetry 97 08/29/18 08:00 08/29/18 08:15 08/29/18 08:31 Temperature 97.4 F L Pulse Rate 85 85 85 Blood Pressure 120/92 H 123/82 127/89 Pulse Oximetry 96 94 L 93 L 08/29/18 08:45 08/29/18 09:00 08/29/18 09:02 Temperature Pulse Rate 86 88 87 Blood Pressure 121/88 125/86 Pulse Oximetry 97 81 L 85 L 08/29/18 09:15 08/29/18 09:41 08/29/18 09:46 Temperature Pulse Rate 84 85 85 Blood Pressure 113/91 H 118/89 118/82 Pulse Oximetry 73 L 94 L 98 08/29/18 10:00 08/29/18 10:16 08/29/18 10:30 Temperature Pulse Rate 86 83 83 Blood Pressure 126/90 116/95 H 119/100 H Pulse Oximetry 100 100 100 08/29/18 10:45 08/29/18 11:00 08/29/18 11:01 Temperature Pulse Rate 85 81 81 Blood Pressure 117/90 129/92 H Pulse Oximetry 99 96 99 08/29/18 11:15 08/29/18 11:30 08/29/18 12:00 Temperature Pulse Rate 79 81 79 Blood Pressure 121/85 113/86 Pulse Oximetry 100 100 95 08/29/18 12:01 08/29/18 12:15 08/29/18 12:30 Temperature Pulse Rate 79 81 83 Blood Pressure 108/76 107/83 117/79 Pulse Oximetry 94 L 100 100 08/29/18 12:45 08/29/18 13:00 08/29/18 13:30 Temperature Pulse Rate 80 82 79 Blood Pressure 114/77 117/75 107/72 Pulse Oximetry 100 99 96 08/29/18 13:46 08/29/18 14:00 08/29/18 14:01 Temperature Pulse Rate 81 81 81 Blood Pressure 102/73 100/72 Pulse Oximetry 100 99 98 08/29/18 14:31 08/29/18 15:00 08/29/18 15:01 Temperature Pulse Rate 79 82 82 Blood Pressure 96/60 L 90/66 L Pulse Oximetry 98 100 99 Intake & Output 08/28/18 08/29/18 08/29/18 18:59 06:59 18:59 Intake Total 1550 / 1550 1100 / 1100 1200 / 1200 Output Total 435 / 435 950 / 950 Balance 1115 / 1115 150 / 150 1200 / 1200 Weight 65.5 kg Intake: IV 550 / 550 1100 / 1100 1200 / 1200 D5W Inj 1,000 ML @ 75 mls/hr IV 1000 / 1000 1000 / 1000 .CONT .[id number] [facility] Rx#:[id number] Azithromycin Inj 500 MG In NS 250 / 250 Inj 250 ML @ 250 mls/hr IV.SIG Q24H [facility] Rx#:[id number] Maxipime Inj 2,000 MG In NS Inj 100 / 100 100 / 100 100 ML @ 200 mls/hr IV.SIG Q24H [facility] Rx#:[id number] Flagyl 500 MG Inj 100 ML @ 100 200 / 200 100 / 100 100 / 100 mls/hr IV.SIG Q8H [facility] Rx#: [id number] Oral 1000 / 1000 0 / 0 Output: Stool 100 / 100 Urine Amount (Catheter) 375 / 375 200 / 200 Female External 200 / 200 Indwelling Urethral Catheter 375 / 375 Chest Tube Drainage 60 / 60 650 / 650 Right Mid-Axillary Chest 60 / 60 650 / 650 Other: # Incontinent Voids 5 Date of Last Bowel Movement 08/28/18 08/29/18 08/29/18 # Incontinent Bowel Movements 1 - Constitutional no acute distress - Routine HEENT Exam Head: Present: normocephalic Eye: Present: PERRL ENT: Present: mucous membranes moist - Routine Neck Exam Present: full ROM - Routine Respiratory Exam Present: crackles Comments: fine crackles noted in lower bases bilaterally - Routine Cardiovascular Exam Present: S1, S2 - Routine Abdominal Exam Present: normoactive bowel sounds - Routine Extremities Exam Present: edema, full ROM, pulses intact, normal capillary refill. Absent: cyanosis, clubbing - Routine Skin Exam Present: intact - Routine Neurological Exam Present: alert, oriented X3, moving all extremities - Detailed Neurological Exam: Coma Scale Eye Opening: Spontaneous Verbal Response: Oriented Motor Response: Obey commands Kindra Coma Scale Total: 15 - Routine Psychiatric Exam Present: depressed - Urinary Catheter Management Indwelling Urethral Catheter Cath placed during this visit: yes, but has since been removed by the nurse Reason for continuing: Decision to DC catheter Insertion date: 08/16/18 Removal date: 08/28/18 Removal time: 18:00 Female External Cath placed during this visit: no Results 08/29/18 04:53 08/29/18 04:53 Coagulation 08/28/18 08/29/18 Range/Units 05:00 04:53 PT 19.3 H 26.5 H (9.8-11.6) sec APTT 34.7 H (23.4-31.7) sec CBC 08/28/18 08/29/18 Range/Units 05:00 04:53 WBC 10.9 10.9 (4.0-11.0) th/mm3 RBC 4.05 4.00 (4.00-5.30) mil/mm3 Hgb 9.6 L 9.5 L (11.6-15.3) gm/dL Hct 29.0 L 29.2 L (35.0-46.0) % Plt Count 72 L 95 L D (150-450) th/mm3 Neut # (Auto) 8.2 H 8.1 H (1.8-7.7) th/mm3 Lymph # (Auto) 1.0 1.4 (1.0-4.8) th/mm3 [place] # (Auto) 1.6 H 1.4 H (0.0-0.9) th/mm3 Eos # (Auto) 0.0 0.0 (0.0-0.4) th/mm3 Baso # (Auto) 0.1 0.0 (0.0-0.2) th/mm3 Comprehensive Metabolic Panel 08/28/18 08/29/18 Range/Units 05:00 04:53 Sodium 158 H* 150 H (136-145) meq/L Potassium 3.0 L 3.5 (3.5-5.1) meq/L Chloride 115 H 112 H (98-107) meq/L Carbon Dioxide 31.3 23.5 (21.0-32.0) meq/L BUN 149 H 147 H (7-18) mg/dL Creatinine 2.82 H 2.87 H (0.50-1.00) mg/dL Calcium 9.4 9.0 (8.5-10.1) mg/dL Intake and Output 08/29/18 08/29/18 08/29/18 06:59 14:59 22:59 Intake Total 100 / 100 1200 / 1200 Output Total 950 / 950 Balance -850 / -850 1200 / 1200 Intake: IV 100 / 100 1200 / 1200 D5W Inj 1,000 ML @ 75 mls/hr IV 1000 / 1000 .CONT .[id number] [facility] Rx#:[id number] Maxipime Inj 2,000 MG In NS Inj 100 / 100 100 ML @ 200 mls/hr IV.SIG Q24H [facility] Rx#:[id number] Flagyl 500 MG Inj 100 ML @ 100 100 / 100 100 / 100 mls/hr IV.SIG Q8H [facility] Rx#: [id number] Oral 0 / 0 Output: Stool 100 / 100 Urine Amount (Catheter) 200 / 200 Female External 200 / 200 Chest Tube Drainage 650 / 650 Right Mid-Axillary Chest 650 / 650 Other: # Incontinent Voids 5 Date of Last Bowel Movement 08/29/18 08/29/18 Weight 65.5 kg - Imaging and Cardiology Imaging: Impressions Chest X-Ray 08/29/18 05:00 CONCLUSION: Interval extubation. Grossly stable aeration. Assessment and Plan - Assessment (1) Acute exacerbation of CHF (congestive heart failure) Code(s): I50.9 - Heart failure, unspecified Status: Acute (2) Severe sepsis Code(s): A41.9 - Sepsis, unspecified organism; R65.20 - Severe sepsis without septic shock Status: Acute (3) PEA (Pulseless electrical activity) Code(s): I46.9 - Cardiac arrest, cause unspecified Status: Resolved (4) Fluid overload Code(s): E87.70 - Fluid overload, unspecified Status: Acute (5) Acute worsening of stage 3 chronic kidney disease Code(s): N18.3 - Chronic kidney disease, stage 3 (moderate) Status: Acute (6) Anemia Code(s): D64.9 - Anemia, unspecified Status: Acute (7) Pacemaker Code(s): Z95.0 - Presence of cardiac pacemaker Status: Acute (8) Supraventricular tachycardia Code(s): I47.1 - Supraventricular tachycardia Status: Acute (9) Pneumonia Code(s): J18.9 - Pneumonia, unspecified organism Status: Acute (10) Cardiomyopathy Code(s): I42.9 - Cardiomyopathy, unspecified Status: Acute (11) Pulmonary edema Code(s): J81.1 - Chronic pulmonary edema Status: Acute (12) Lactic acidemia Code(s): E87.2 - Acidosis Status: Acute (13) Hypertension Code(s): I10 - Essential (primary) hypertension Status: Acute (14) Cardiogenic shock Code(s): R57.0 - Cardiogenic shock Status: Acute - Plan There are no new cardiac issues noted at this time. We will continue with current cardiac treatment plan and adjust as needed. Nephrology evaluation and treatment in progress. Continue to increase her activity as she tolerates, PT. Treatment plan was discussed with her, her and her brother at bedside. We will continue to monitor the patient during her hospitalization and follow up in our office after discharge from the hospital. The patient was seen and evaluated by Dr. Mae who participated in care, management and decision making. - Attending Attestation Patient seen and examined. I reviewed and agree with the evaluation and plan as presented. Continue tx for CHF. ICU monitoring. Increase activity, PT. (1) Acute exacerbation of CHF (congestive heart failure) Qualifiers: Heart failure type: systolic Qualified Code(s): I50.23 - Acute on chronic systolic (congestive) heart failure (4) Fluid overload Qualifiers: Hypervolemia type: unspecified Qualified Code(s): E87.70 - Fluid overload, unspecified
--- NOTE | 2018-08-29 17:06 | P.DIET ---
Nutritional Evaluation Type of nutrition evaluation: follow-up Nutrition consult regarding: Tube Feeding Screening comments: 08/21/18 TF review Subjective Subjective Comments: Pt was sleeping during RD visit. Pts family member was present and said that pt was tolerating the meal trays she was getting. Family member also added pt ate all the scrambled eggs this am and had no lunch yet. Objective - Diagnosis SVT, Acute on CRF, elevated trop - Objective % IBW: 136 (IBW = 135lb) Body Weight Used for Calculations: Actual (83.5kg) Energy Needs - Lower Range (kCal/kg): 25 Energy Needs - Upper Range (kCal/kg): 30 Lower Limit kCal/kg (kCals): 2,088 Upper Limit kCal/kg (kCals): 2,505 Lower Limit Protein Factor (Grams per Kg): 0.8 Upper Limit Protein Factor (Grams per Kg): 1.0 Lower Protein Needs (Protein): 67 Upper Protein Needs (Protein): 84 Dietitian Reviewed in Medical Record: Curent medications, Intake & Output, Labs , Medical history, Tube feeding Diet Order: Fluid restriction 1500, 2gNa, 60g protein Speech Therapy Recommendations: Yes (mechanical soft, thin liquids) Objective Comments: PMH: CHF, CKD, CAD, CVA, fibromyalgia, HTN, AL Meds: reviewed Labs: BUN 146, Cr 2.87, GFR 20, random glucose 120 Previously coded PEA arrest Assessment Assessment: Pt was extubated on 08/27/18 and also had TF d/guido as well. ST notes reviewed, pt able to toelrate mechanical soft, thin liquids. ST also added pts has limited dentition and her dentures are not in. Pt is tolerating her current diet well and had consumed around 10-25% of most meal trays per chart. Noted renal labs worsened today. RD to recommend Suplena BID as PO supplement for additional nutrition, this will provide pt w/ 425kcal, 10.6g of protein, and 175mL of free water per can. Continue to monitor PO and supplement intake. Labs reviewed, dietitian following. Recommendations: 1. Continue current diet per MD 2. RD to recommend Suplena BID as PO supplement for additional nutrition 3. Continue to monitor PO and supplement intake 4. Dietitian following Dietitian to Monitor: Lab values, Renal labs, Glucose level, Supplement acceptance, Intake & Output, Diet tolerance, Weight change, PO Intake, Medical course
--- NOTE | 2018-08-29 17:49 | US ---
EXAM DATE: 08/29/2018 5:43 PM EST AGE/SEX: 67 years / Female INDICATIONS: Jaundice. Elevated AST. CLINICAL DATA: This is the patient's initial encounter. Patient reports that signs and symptoms have been present for 1 day and indicates a pain score of 3/10. MEDICAL/SURGICAL HISTORY: Congestive heart failure. Hypertension. Myocardial infarction. Car diac defibrillator. CKD stage III. Coronary artery disease. Fibromyalgia. CVA. Large right pleural ef fusion. Pneumonia. . Placement of cardiac defibrillator. Systolic cardiomyopathy. Status post chest tube placement. COMPARISON: [facility] – [place], KIDNEY/RENAL/BLADDER, 02/06/2018. . MEASUREMENTS: Liver:__ 17.7 cm. Common Bile Duct:__ 3mm. Right Kidney:__ 11.0 x 6.4 x 5.6 cm. FINDINGS: Liver: Hepatic veins are somewhat prominent diffusely. Liver is homogeneous. Portal Vein: Hepatopedal flow seen in portal vein. Common Duct: No intraluminal mass or stone visualized. Gallbladder: Diffuse gallbladder wall thickening measuring up to 8 mm. Mild pericholecystic fluid. N o gallstones identified. No sonographic Lombardo's sign. Pancreas: The visualized portions are within normal limits Right Kidney: 3 x 5 mm nonobstructing calculus in the midpole. No evidence of hydronephrosis. Other: Small amount of ascites in the right upper quadrant. CONCLUSION: 1. Distended hepatic veins may be related to right heart failure. 2. Diffuse gallbladder wall thickening and pericholecystic fluid but no gallstones and no sonographi c Lombardo sign. May be related to hypoalbuminemia. 3. Small amount of ascites. 4. Nonobstructing calculus in the midpole of the right kidney. Electronically signed by: Barrera Wu MD Board Certified Radiologist 08/29/2018 5:47 PM EST
[2018-08-30] MEDS: Dextrose 5% in Water Inj 1,000 ML IV.CONT SCH (00:42)
--- NOTE | 2018-08-30 04:42 | XR ---
EXAM DATE: 08/30/2018 4:35 AM EST AGE/SEX: 67 years / Female INDICATIONS: Shortness of breath, possible pulmonary disease. CLINICAL DATA: This is the patient's subsequent encounter. Patient reports that signs and symptoms h ave been present for 2 weeks and indicates a pain score of 0/10. MEDICAL/SURGICAL HISTORY: Congestive heart failure. Hypertension. Myocardial infarction. CVA . . Defibrillator. COMPARISON: [facility] [place]ST 1V SINGLE AP, 08/29/2018. . FINDINGS: A pacing implement is present with control pack over the right upper chest. Persistent left perihilar atelectasis or infiltrate. Right base pigtail thoracostomy tube remains in place. Cardiac contours a re unchanged with mild cardiac enlargement. CONCLUSION: No significant change Electronically signed by: Trung Connell MD Board Certified Radiologist 08/30/2018 4:40 AM EST
[2018-08-30 06:15] LABS: Alanine Aminotransferase 57 U/L (10-53); Albumin 3.5 g/dL (3.4-5.0); Alkaline Phosphatase 94 U/L (45-117); Anion Gap 17 meq/L (5-15); Aspartate Aminotransferase 101 U/L (15-37); Blood Urea Nitrogen 134 mg/dL (7-18); Calcium 8.6 mg/dL (8.5-10.1); Carbon Dioxide 19.3 meq/L (21.0-32.0); Chloride 106 meq/L (98-107); Glomerular Filtration Rate 21 mL/min (>89); Glucose,Random 103 mg/dL (74-106); Phosphorus 2.9 mg/dL (2.5-4.9); Potassium 3.3 meq/L (3.5-5.1); Sodium 142 meq/L (136-145); Total Protein 6.1 g/dL (6.4-8.2)
[2018-08-30 06:24] LABS: Hematocrit 30.1 % (35.0-46.0); Hemoglobin 9.9 gm/dL (11.6-15.3); Mean Corpuscular HGB Conc 32.9 % (32.0-36.0); Mean Corpuscular Hemoglobin 23.7 pg (27.0-34.0); Mean Platelet Volume 10.6 fL (7.0-11.0); Platelet Count 82 th/mm3 (150-450); Red Blood Count 4.18 mil/mm3 (4.00-5.30); Red Cell Distribution Width 20.9 % (11.6-17.2); White Blood Count 11.5 th/mm3 (4.0-11.0)
--- NOTE | 2018-08-30 06:51 | P.PNFP ---
Subjective Interval history: Patient was seen at bedside this morning in the presence of her and brother. There were no acute events overnight. Patient continues to feel well. Overall, patient feels stronger and better than she did yesterday. She does however, say that her appetite is diminished and is having some difficulty beginning to eat again due to her lack of appetite. Over the course of our conversation I asked the patient that she remembered our encounter in the ED when she first came in. Patient reported that she did not remember not only not coming to the ED but did not remember any memories before that to include [place] time. Patient asked me what brought her in the first place as she could not remember. Patient denies any subjective fevers, chills, lightheadedness, shortness of breath, chest pain, nausea, or vomiting. All questions were answered to the patient's satisfaction. <Dru Jane - 08/30/18 09:23> Results - Labs Result diagrams: 08/30/18 04:26 08/30/18 04:26 <Amelia Phoenix - 08/30/18 21:10> Abnormal lab results 08/30/18 08/30/18 08/30/18 Range/Units 04:26 04:26 11:23 WBC 11.5 H (4.0-11.0) th/mm3 Hgb 9.9 L (11.6-15.3) gm/dL Hct 30.1 L (35.0-46.0) % MCV 72.0 L (80.0-100.0) fL MCH 23.7 L (27.0-34.0) pg RDW 20.9 H (11.6-17.2) % Plt Count 82 L (150-450) th/mm3 PT (9.8-11.6) sec Potassium 3.3 L (3.5-5.1) meq/L Carbon Dioxide 19.3 L (21.0-32.0) meq/L Anion Gap 17 H (5-15) meq/L BUN 134 H (7-18) mg/dL Creatinine 2.74 H (0.50-1.00) mg/dL Estimated GFR 21 L (>89) mL/min Total Bilirubin 13.4 H 13.5 H (0.2-1.0) mg/dL Direct Bilirubin 9.8 H (0.0-0.2) mg/dL Indirect Bilirubin 3.7 H (0.0-0.8) mg/dL AST 101 H (15-37) U/L ALT 57 H (10-53) U/L Total Protein 6.1 L (6.4-8.2) g/dL 08/30/18 Range/Units 11:23 WBC (4.0-11.0) th/mm3 Hgb (11.6-15.3) gm/dL Hct (35.0-46.0) % MCV (80.0-100.0) fL MCH (27.0-34.0) pg RDW (11.6-17.2) % Plt Count (150-450) th/mm3 PT 39.5 H D (9.8-11.6) sec Potassium (3.5-5.1) meq/L Carbon Dioxide (21.0-32.0) meq/L Anion Gap (5-15) meq/L BUN (7-18) mg/dL Creatinine (0.50-1.00) mg/dL Estimated GFR (>89) mL/min Total Bilirubin (0.2-1.0) mg/dL Direct Bilirubin (0.0-0.2) mg/dL Indirect Bilirubin (0.0-0.8) mg/dL AST (15-37) U/L ALT (10-53) U/L Total Protein (6.4-8.2) g/dL Short CBC 08/30/18 Range/Units 04:26 WBC 11.5 H (4.0-11.0) th/mm3 Hgb 9.9 L (11.6-15.3) gm/dL Hct 30.1 L (35.0-46.0) % Plt Count 82 L (150-450) th/mm3 BMP 08/30/18 04:26 Sodium 142 Potassium 3.3 L Chloride 106 Carbon Dioxide 19.3 L BUN 134 H Creatinine 2.74 H Calcium 8.6 Cardiac Enzymes 08/30/18 Range/Units 15:00 Total Creatine Kinase 67 (26-192) U/L Liver Function 08/30/18 08/30/18 Range/Units 04:26 11:23 Total Bilirubin 13.4 H 13.5 H (0.2-1.0) mg/dL Direct Bilirubin 9.8 H (0.0-0.2) mg/dL AST 101 H (15-37) U/L ALT 57 H (10-53) U/L Alkaline Phosphatase 94 (45-117) U/L Albumin 3.5 (3.4-5.0) g/dL <Amelia Phoenix - 08/30/18 21:10> Abnormal lab results 08/29/18 08/30/18 08/30/18 Range/Units 04:53 04:26 04:26 WBC 11.5 H (4.0-11.0) th/mm3 Hgb 9.9 L (11.6-15.3) gm/dL Hct 30.1 L (35.0-46.0) % MCV 72.0 L (80.0-100.0) fL MCH 23.7 L (27.0-34.0) pg RDW 20.9 H (11.6-17.2) % Plt Count 82 L (150-450) th/mm3 Seg Neuts % (Manual) 80 H (16-70) % Abs Neuts (Manual) 8.8 H (1.8-7.7) th/mm3 Nucleated RBCs/100 WBC 5 H (0-0) /100 WBC Platelet Estimate Low L (Normal) Platelet Morphology Enlarged H (Normal) Spherocytes Occ H (None) Target Cells 2+ H (None) Acanthocytes (Spur) 1+ H (None) Keratocytes 1+ H (None) Potassium 3.3 L (3.5-5.1) meq/L Carbon Dioxide 19.3 L (21.0-32.0) meq/L Anion Gap 17 H (5-15) meq/L BUN 134 H (7-18) mg/dL Creatinine 2.74 H (0.50-1.00) mg/dL Estimated GFR 21 L (>89) mL/min Total Bilirubin 13.4 H (0.2-1.0) mg/dL AST 101 H (15-37) U/L ALT 57 H (10-53) U/L Total Protein 6.1 L (6.4-8.2) g/dL Short CBC 08/30/18 Range/Units 04:26 WBC 11.5 H (4.0-11.0) th/mm3 Hgb 9.9 L (11.6-15.3) gm/dL Hct 30.1 L (35.0-46.0) % Plt Count 82 L (150-450) th/mm3 BMP 08/30/18 04:26 Sodium 142 Potassium 3.3 L Chloride 106 Carbon Dioxide 19.3 L BUN 134 H Creatinine 2.74 H Calcium 8.6 Liver Function 08/30/18 Range/Units 04:26 Total Bilirubin 13.4 H (0.2-1.0) mg/dL AST 101 H (15-37) U/L ALT 57 H (10-53) U/L Alkaline Phosphatase 94 (45-117) U/L Albumin 3.5 (3.4-5.0) g/dL <Dru Jane - 08/30/18 06:51> - Imaging Impressions Chest X-Ray 08/30/18 06:00 CONCLUSION: No significant change <Amelia Phoenix - 08/30/18 21:10> Impressions Liver Ultrasound 08/29/18 00:00 CONCLUSION: 1. Distended hepatic veins may be related to right heart failure. 2. Diffuse gallbladder wall thickening and pericholecystic fluid but no gallstones and no sonographic Lombardo sign. May be related to hypoalbuminemia. 3. Small amount of ascites. 4. Nonobstructing calculus in the midpole of the right kidney. Chest X-Ray 08/30/18 06:00 CONCLUSION: No significant change <Dru Jane - 08/30/18 06:51> Physical Exam Vital signs: Vital Signs 08/29/18 21:15 08/29/18 21:30 08/29/18 21:45 Temperature Pulse Rate 85 85 85 Blood Pressure 115/77 115/79 111/84 Pulse Oximetry 92 L 08/29/18 22:00 08/29/18 22:01 08/29/18 22:16 Temperature Pulse Rate 87 87 86 Blood Pressure 106/79 120/86 Pulse Oximetry 97 94 L 100 08/29/18 22:31 08/29/18 22:45 08/29/18 23:00 Temperature Pulse Rate 85 81 82 Blood Pressure 101/70 87/61 L 92/64 L Pulse Oximetry 97 81 L 90 L 08/29/18 23:20 08/29/18 23:35 08/29/18 23:45 Temperature Pulse Rate 86 86 83 Blood Pressure 110/83 110/85 116/84 Pulse Oximetry 100 98 08/30/18 00:00 08/30/18 00:15 08/30/18 00:45 Temperature Pulse Rate 87 91 H 87 Blood Pressure 120/92 H 119/88 123/88 Pulse Oximetry 08/30/18 01:00 08/30/18 02:00 08/30/18 02:01 Temperature Pulse Rate 86 81 81 Blood Pressure 107/74 116/84 116/84 Pulse Oximetry 55 L 55 L 08/30/18 03:00 08/30/18 03:06 08/30/18 04:00 Temperature Pulse Rate 85 83 88 Blood Pressure 141/94 H 141/94 H Pulse Oximetry 98 85 L 08/30/18 05:00 08/30/18 05:01 08/30/18 06:00 Temperature Pulse Rate 92 H 90 90 Blood Pressure 108/83 Pulse Oximetry 100 08/30/18 06:27 08/30/18 07:00 08/30/18 08:00 Temperature 98.4 F Pulse Rate 86 90 Blood Pressure 128/79 111/76 Pulse Oximetry 100 96 08/30/18 09:06 08/30/18 10:00 08/30/18 12:00 Temperature 97.6 F Pulse Rate 83 86 Blood Pressure 111/79 Pulse Oximetry 100 100 08/30/18 14:00 08/30/18 16:00 08/30/18 18:00 Temperature 97.8 F Pulse Rate 87 82 80 Blood Pressure 99/71 L Pulse Oximetry 98 08/30/18 19:00 Temperature Pulse Rate Blood Pressure Pulse Oximetry 100 Intake & Output 08/30/18 08/30/18 08/31/18 06:59 18:59 06:59 Intake Total 1400 / 1400 740 / 740 Output Total 1180 / 1180 620 / 620 Balance 220 / 220 120 / 120 Weight 70.3 kg Intake: IV 1100 / 1100 500 / 500 D5W Inj 1,000 ML @ 75 mls/hr IV 1000 / 1000 300 / 300 .CONT .[id number] [facility] Rx#:[id number] Maxipime Inj 2,000 MG In NS Inj 100 / 100 100 ML @ 200 mls/hr IV.SIG Q24H [facility] Rx#:[id number] Flagyl 500 MG Inj 100 ML @ 100 100 / 100 100 / 100 mls/hr IV.SIG Q8H [facility] Rx#: [id number] Oral 300 / 300 240 / 240 Output: Stool 200 / 200 100 / 100 Urine Amount (Catheter) 200 / 200 300 / 300 Female External 200 / 200 300 / 300 Chest Tube Drainage 780 / 780 220 / 220 Right Mid-Axillary Chest 780 / 780 220 / 220 Other: # Incontinent Voids 5 2 Date of Last Bowel Movement 08/30/18 08/30/18 # Incontinent Bowel Movements 2 <Amelia Phoenix - 08/30/18 21:10> Vital Signs 08/29/18 07:00 08/29/18 07:15 08/29/18 07:47 Temperature Pulse Rate 81 81 85 Blood Pressure 100/85 100/77 121/84 Pulse Oximetry 97 08/29/18 08:00 08/29/18 08:15 08/29/18 08:31 Temperature 97.4 F L Pulse Rate 85 85 85 Blood Pressure 120/92 H 123/82 127/89 Pulse Oximetry 96 94 L 93 L 08/29/18 08:45 08/29/18 09:00 08/29/18 09:02 Temperature Pulse Rate 86 88 87 Blood Pressure 121/88 125/86 Pulse Oximetry 97 81 L 85 L 08/29/18 09:15 08/29/18 09:41 08/29/18 09:46 Temperature Pulse Rate 84 85 85 Blood Pressure 113/91 H 118/89 118/82 Pulse Oximetry 73 L 94 L 98 08/29/18 10:00 08/29/18 10:16 08/29/18 10:30 Temperature Pulse Rate 86 83 83 Blood Pressure 126/90 116/95 H 119/100 H Pulse Oximetry 100 100 100 08/29/18 10:45 08/29/18 11:00 08/29/18 11:01 Temperature Pulse Rate 85 81 81 Blood Pressure 117/90 129/92 H Pulse Oximetry 99 96 99 08/29/18 11:15 08/29/18 11:30 08/29/18 12:00 Temperature Pulse Rate 79 81 79 Blood Pressure 121/85 113/86 Pulse Oximetry 100 100 95 08/29/18 12:01 08/29/18 12:15 08/29/18 12:30 Temperature Pulse Rate 79 81 83 Blood Pressure 108/76 107/83 117/79 Pulse Oximetry 94 L 100 100 08/29/18 12:45 08/29/18 13:00 08/29/18 13:30 Temperature Pulse Rate 80 82 79 Blood Pressure 114/77 117/75 107/72 Pulse Oximetry 100 99 96 08/29/18 13:46 08/29/18 14:00 08/29/18 14:01 Temperature Pulse Rate 81 81 81 Blood Pressure 102/73 100/72 Pulse Oximetry 100 99 98 08/29/18 14:31 08/29/18 15:00 08/29/18 15:01 Temperature Pulse Rate 79 82 82 Blood Pressure 96/60 L 90/66 L Pulse Oximetry 98 100 99 08/29/18 15:15 08/29/18 15:44 08/29/18 15:45 Temperature Pulse Rate 85 85 85 Blood Pressure 97/78 L 109/82 117/84 Pulse Oximetry 100 99 100 08/29/18 16:00 08/29/18 16:15 08/29/18 16:30 Temperature Pulse Rate 85 85 86 Blood Pressure 110/84 98/70 L 104/80 Pulse Oximetry 99 97 100 08/29/18 17:00 08/29/18 17:01 08/29/18 17:15 Temperature Pulse Rate 83 83 90 Blood Pressure 106/80 91/54 L Pulse Oximetry 94 L 99 78 L 08/29/18 17:29 08/29/18 17:31 08/29/18 17:45 Temperature Pulse Rate 86 83 Blood Pressure 113/78 120/78 Pulse Oximetry 97 97 100 08/29/18 18:00 08/29/18 18:15 08/29/18 18:30 Temperature Pulse Rate 83 84 85 Blood Pressure 128/79 113/80 105/87 Pulse Oximetry 93 L 99 99 08/29/18 18:45 08/29/18 19:00 08/29/18 19:15 Temperature Pulse Rate 85 82 79 Blood Pressure 108/83 99/80 L 102/71 Pulse Oximetry 100 99 97 08/29/18 19:30 08/29/18 19:46 08/29/18 20:00 Temperature Pulse Rate 83 83 85 Blood Pressure 103/79 111/77 108/84 Pulse Oximetry 99 93 L 90 L 08/29/18 20:15 08/29/18 20:30 08/29/18 20:45 Temperature Pulse Rate 85 84 84 Blood Pressure 119/87 114/89 109/93 H Pulse Oximetry 100 98 100 08/29/18 21:00 08/29/18 21:05 08/29/18 21:15 Temperature 97.6 F Pulse Rate 87 84 85 Blood Pressure 113/84 113/84 115/77 Pulse Oximetry 95 08/29/18 21:30 08/29/18 21:45 08/29/18 22:00 Temperature Pulse Rate 85 85 87 Blood Pressure 115/79 111/84 Pulse Oximetry 92 L 97 08/29/18 22:01 08/29/18 22:16 08/29/18 22:31 Temperature Pulse Rate 87 86 85 Blood Pressure 106/79 120/86 101/70 Pulse Oximetry 94 L 100 97 08/29/18 22:45 08/29/18 23:00 08/29/18 23:20 Temperature Pulse Rate 81 82 86 Blood Pressure 87/61 L 92/64 L 110/83 Pulse Oximetry 81 L 90 L 100 08/29/18 23:35 08/29/18 23:45 08/30/18 00:00 Temperature Pulse Rate 86 83 87 Blood Pressure 110/85 116/84 120/92 H Pulse Oximetry 98 08/30/18 00:15 08/30/18 00:45 08/30/18 01:00 Temperature Pulse Rate 91 H 87 86 Blood Pressure 119/88 123/88 107/74 Pulse Oximetry 08/30/18 02:00 08/30/18 02:01 08/30/18 03:00 Temperature Pulse Rate 81 81 85 Blood Pressure 116/84 116/84 141/94 H Pulse Oximetry 55 L 55 L 98 08/30/18 03:06 08/30/18 04:00 08/30/18 05:00 Temperature Pulse Rate 83 88 92 H Blood Pressure 141/94 H Pulse Oximetry 85 L 100 08/30/18 05:01 08/30/18 06:00 08/30/18 06:27 Temperature Pulse Rate 90 90 86 Blood Pressure 108/83 128/79 Pulse Oximetry Intake & Output 08/29/18 08/29/18 08/30/18 06:59 18:59 06:59 Intake Total 1100 / 1100 2250 / 2250 1100 / 1100 Output Total 950 / 950 525 / 525 Balance 150 / 150 1725 / 1725 1100 / 1100 Weight 65.5 kg 70.3 kg Intake: IV 1100 / 1100 1550 / 1550 1100 / 1100 D5W Inj 1,000 ML @ 75 mls/hr IV 1000 / 1000 1000 / 1000 1000 / 1000 .CONT .[id number] [facility] Rx#:[id number] Azithromycin Inj 500 MG In NS 250 / 250 Inj 250 ML @ 250 mls/hr IV.SIG Q24H [facility] Rx#:[id number] Maxipime Inj 2,000 MG In NS Inj 100 / 100 100 ML @ 200 mls/hr IV.SIG Q24H [facility] Rx#:[id number] Flagyl 500 MG Inj 100 ML @ 100 100 / 100 200 / 200 100 / 100 mls/hr IV.SIG Q8H [facility] Rx#: [id number] Oral 0 / 0 700 / 700 Output: Stool 100 / 100 100 / 100 Urine Amount (Catheter) 200 / 200 125 / 125 Female External 200 / 200 125 / 125 Chest Tube Drainage 650 / 650 300 / 300 Right Mid-Axillary Chest 650 / 650 300 / 300 Other: # Incontinent Voids 5 1 Date of Last Bowel Movement 08/29/18 08/29/18 08/30/18 <Phong LamontDru Holli - 08/30/18 06:51> Narrative: GENERAL: Awake, alert, but tired appearing. SKIN: warm and dry. HEAD: Normocephalic. Anicteric sclerae noted. CARDIOVASCULAR: Regular rate and rhythm with no murmurs, rubs or gallops. RESPIRATORY: Clear to auscultation bilaterally, chest tube in place on right side. GASTROINTESTINAL: Abdomen soft, non-tender, nondistended. EXTREMITIES: No lower ext edema, NEUROLOGICAL: Responsive, interactive and following commands. Patient alert and oriented x2 with confusion on today's date. Patient however did note that this year was 2019. Cranial nerves II through XII appear to be grossly intact. Patient had no facial drooping. Moving all extremities without difficulty. <Phong MiguelDru Holli - 08/30/18 09:23> - Urinary Catheter Management Female External Cath placed during this visit: no <Amelia Phoenix - 08/30/18 21:10> no <Dru Jane - 08/30/18 15:13> Indwelling Urethral Catheter Cath placed during this visit: no <Amelia Phoenix - 08/30/18 21:10> yes, but has since been removed by the nurse <Dru Jane 08/30/18 15:13> Reason for continuing: Decision to DC catheter <Dru Jane 08/30/18 06 :51> Insertion date: 08/16/18 <Dru Jane 08/30/18 06:51> Removal date: 08/28/18 <Dru Jane 08/30/18 06:51> Removal time: 18:00 <Dru Jane 08/30/18 06:51> Assessment and Plan - Assessment (1) Severe sepsis Code(s): A41.9 - Sepsis, unspecified organism; R65.20 - Severe sepsis without septic shock Status: Acute (2) Pneumonia Code(s): J18.9 - Pneumonia, unspecified organism Status: Acute (3) Acute exacerbation of CHF (congestive heart failure) Code(s): I50.9 - Heart failure, unspecified Status: Acute (4) Acute on chronic kidney failure Code(s): N17.9 - Acute kidney failure, unspecified; N18.9 - Chronic kidney disease, unspecified Status: Acute (5) Pleural effusion Code(s): J90 - Pleural effusion, not elsewhere classified Status: Acute (6) Hyperbilirubinemia Code(s): E80.6 - Other disorders of bilirubin metabolism Status: Acute (7) Hypertension Code(s): I10 - Essential (primary) hypertension Status: Acute (8) Supratherapeutic INR Code(s): R79.1 - Abnormal coagulation profile Status: Resolved (9) PEA (Pulseless electrical activity) Code(s): I46.9 - Cardiac arrest, cause unspecified Status: Resolved (10) Nutrition, metabolism, and development symptoms Code(s): R63.8 - Other symptoms and signs concerning food and fluid intake Status: Acute <Amelia Phoenix - 08/30/18 21:10> (1) Severe sepsis Code(s): A41.9 - Sepsis, unspecified organism; R65.20 - Severe sepsis without septic shock Status: Acute Plan: Community-acquired pneumonia complicated by lower extremity edema in the setting of CHF with an EF of 20%. Patient status post thoracentesis for pleural effusion. -Intubated mechanically ventilated, extubated on 08/27 -Blood cultures (08/15): No growth to date -Pleural fluid Gram stain and cultures no growth to date -WBC count downtrending to 11.5 today Plan: Per Side Puller: -Discontinue Flagyl 500 mg every 8h (08/15-08/30) -Cefepime 2000 mg every 8 hours (08/15-) -Discontinue azithromycin 500mg (08/16-08/30) -extubated on 08/27 -New blood, urine, and sputum cultures ordered on 08/27 due to increase in white count urine cx: chi albicans fluconazole 150mg x1 ordered blood cx no growth x1 day and sputum cx mod normal respiratory bear -Possible transfer out of ICU today Palliative care following, goals of care remain aggressive. (2) Pneumonia Code(s): J18.9 - Pneumonia, unspecified organism Status: Acute Plan: Community acquired right-sided pneumonia with lactic acidosis. -DuoNeb every 2 hours as needed -Sputum culture: Moderate growth normal respiratory bear -Respiratory panel uncollected -Continue with antibiotics per critical care team as dictated above -Repeat CXR 08/25: Improved aeration in left lower lobe. -Repeat CXR 08/27:Nasogastric tube sidehole is not across the GE junction ET tube is just above the josh. Compensated cardiomegaly with minimal consolidative changes left base -Repeat CXR 08/29: Mild bibasilar parenchymal opacities, left worse than right, grossly stable. Cardiac contour is unchanged. -Repeat CXR 08/30: Persistent left perihilar atelectasis or infiltrate. Cardiac contours are unchanged, no significant change. -Discontinue azithromycin -Discontinue Flagyl (3) Acute exacerbation of CHF (congestive heart failure) Code(s): I50.9 - Heart failure, unspecified Status: Acute Plan: -BNP 4000 on admission -Bumex discontinued and patient now on Diuril 500mg BID -No lower extremity edema -Echo 08/17: EF 20%, fairly dilated left ventricle, severe mitral regurgitation -Urine output slightly decreased today at 0.68 ml/kg -BNP this morning of > 5000 -CHF likely contributing to hepatic congestion resulting in elevated bilirubin -Cardiology following and agree with current plan Per cardiology prognosis is poor. (4) Acute on chronic kidney failure Code(s): N17.9 - Acute kidney failure, unspecified; N18.9 - Chronic kidney disease, unspecified Status: Acute Plan: This patient stage III CKD with elevated creatinine above baseline on admission. Possibly due to decrease intravascular volume in the setting of sepsis. -Creatinine on admission 2.72 from baseline of 1.5. -Creatinine decreased to 2.74 today -Urine output 0.19 ml/kg/hr Plan: -Trend kidney function -Trend I/O -Nephrology following Due to patient's severe cardiomyopathy with EF of <20% she is not a good candidate for dialysis (5) Pleural effusion Code(s): J90 - Pleural effusion, not elsewhere classified Status: Acute Plan: Patient status post right sided thoracentesis (08/16/18) with evacuation of approximately 950 ml of slightly cloudy, yellow colored fluid was removed. -Patient underwent therapeutic right sided chest tube placement with pigtail that drained 950ml of slightly cloudy yellow fluid. -08/16: Pleural fluid showed 1,333 red blood cells with 230 nucleated cells. Fluid consistent with transudative process. Cultures show no growth to date. Plan: -Chest tube draining approx 1080ml overnight -Monitor chest tube output -Continue pulmonary care as stated above (6) Hyperbilirubinemia Code(s): E80.6 - Other disorders of bilirubin metabolism Status: Acute Plan: This patient had a doubling of her total bilirubin over the last several days. On 08/27 bilirubin was 9.1 on 08/30 bilirubin had increased to 13.5. Conjugated/ direct bilirubin 9.8 with an indirect of 3.7 and a normal alkaline phosphatase. Likely due to hepatic congestion secondary to congestive heart failure. Elevation of bilirubin may also be due to decreased albumin and third spacing, is also possible that it is idiopathic. At this time no evidence of hemolysis, biliary obstruction, viral hepatitis, or shock liver. -Hepatic ultrasound from 08/29 showed distended hepatic veins, diffuse gallbladder wall thickening and pericholecystic fluid but no gallstones no sonographic Lombardo signs. Nonobstructing calculus in the midpole the right kidney. -Continue to trend bilirubin (7) Hypertension Code(s): I10 - Essential (primary) hypertension Status: Acute Plan: History of hypertension. PEA required intubation and mech vent. Patient initially required pressors now off. -Lopressor 12.5 TID (8) Supratherapeutic INR Code(s): R79.1 - Abnormal coagulation profile Status: Resolved Plan: History of Afib on warfarin but supratherapeutic on admission. INR now 3.9. 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 I agree with assessment and management as documented and discussed with me. Pt without complaints. She is accompanied by brother and . She denies SOB, chest pain, palpitations Chest tube with good amount of output. <Amelia Phoenix - 08/30/18 21:10> <Dru Jane - Last Filed: 08/30/18 14:52> (2) Pneumonia Qualifiers: Pneumonia type: due to unspecified organism Lung location: unspecified part of lung (3) Acute exacerbation of CHF (congestive heart failure) Qualifiers: Heart failure type: systolic Qualified Code(s): I50.23 - Acute on chronic systolic (congestive) heart failure (4) Acute on chronic kidney failure Qualifiers: Acute renal failure type: unspecified Chronic kidney disease stage: stage 4 ( severe) Qualified Code(s): N17.9 - Acute kidney failure, unspecified; N18.4 - Chronic kidney disease, stage 4 (severe) (7) Hypertension Qualifiers: Hypertension type: unspecified Qualified Code(s): I10 - Essential (primary) hypertension <Amelia Phoenix - Last Filed: 08/30/18 21:10> (2) Pneumonia Qualifiers: Pneumonia type: due to unspecified organism Lung location: unspecified part of lung (3) Acute exacerbation of CHF (congestive heart failure) Qualifiers: Heart failure type: systolic Qualified Code(s): I50.23 - Acute on chronic systolic (congestive) heart failure (4) Acute on chronic kidney failure Qualifiers: Acute renal failure type: unspecified Chronic kidney disease stage: stage 4 ( severe) Qualified Code(s): N17.9 - Acute kidney failure, unspecified; N18.4 - Chronic kidney disease, stage 4 (severe) (7) Hypertension Qualifiers: Hypertension type: unspecified Qualified Code(s): I10 - Essential (primary) hypertension <Dru Jane - Last Filed: 08/30/18 14:52> (2) Pneumonia Qualifiers: Pneumonia type: due to unspecified organism Lung location: unspecified part of lung (3) Acute exacerbation of CHF (congestive heart failure) Qualifiers: Heart failure type: systolic Qualified Code(s): I50.23 - Acute on chronic systolic (congestive) heart failure (4) Acute on chronic kidney failure Qualifiers: Acute renal failure type: unspecified Chronic kidney disease stage: stage 4 ( severe) Qualified Code(s): N17.9 - Acute kidney failure, unspecified; N18.4 - Chronic kidney disease, stage 4 (severe) (7) Hypertension Qualifiers: Hypertension type: unspecified Qualified Code(s): I10 - Essential (primary) hypertension <LizettAmelia - Last Filed: 08/30/18 21:10> (2) Pneumonia Qualifiers: Pneumonia type: due to unspecified organism Lung location: unspecified part of lung (3) Acute exacerbation of CHF (congestive heart failure) Qualifiers: Heart failure type: systolic Qualified Code(s): I50.23 - Acute on chronic systolic (congestive) heart failure (4) Acute on chronic kidney failure Qualifiers: Acute renal failure type: unspecified Chronic kidney disease stage: stage 4 ( severe) Qualified Code(s): N17.9 - Acute kidney failure, unspecified; N18.4 - Chronic kidney disease, stage 4 (severe) (7) Hypertension Qualifiers: Hypertension type: unspecified Qualified Code(s): I10 - Essential (primary) hypertension
[2018-08-30] MEDS: Metoprolol Tartrate 25 MG Tablet PO SCH ×3 (08:21→17:46)
[2018-08-30] MEDS: Senna/Docusate Sodium 8.6/50 MG Tablet PO SCH ×2 (08:21→20:47)
--- NOTE | 2018-08-30 08:53 | P.PNNP ---
Subjective Interval history: patient has chest tube. Lethargic, some confusion. Hypernatremia has resolved. Renal function is slightly better. Physical Exam Vital signs: Vital Signs 08/29/18 09:00 08/29/18 09:02 08/29/18 09:15 Temperature Pulse Rate 88 87 84 Blood Pressure 125/86 113/91 H Pulse Oximetry 81 L 85 L 73 L 08/29/18 09:41 08/29/18 09:46 08/29/18 10:00 Temperature Pulse Rate 85 85 86 Blood Pressure 118/89 118/82 126/90 Pulse Oximetry 94 L 98 100 08/29/18 10:16 08/29/18 10:30 08/29/18 10:45 Temperature Pulse Rate 83 83 85 Blood Pressure 116/95 H 119/100 H 117/90 Pulse Oximetry 100 100 99 08/29/18 11:00 08/29/18 11:01 08/29/18 11:15 Temperature Pulse Rate 81 81 79 Blood Pressure 129/92 H 121/85 Pulse Oximetry 96 99 100 08/29/18 11:30 08/29/18 12:00 08/29/18 12:01 Temperature Pulse Rate 81 79 79 Blood Pressure 113/86 108/76 Pulse Oximetry 100 95 94 L 08/29/18 12:15 08/29/18 12:30 08/29/18 12:45 Temperature Pulse Rate 81 83 80 Blood Pressure 107/83 117/79 114/77 Pulse Oximetry 100 100 100 08/29/18 13:00 08/29/18 13:30 08/29/18 13:46 Temperature Pulse Rate 82 79 81 Blood Pressure 117/75 107/72 102/73 Pulse Oximetry 99 96 100 08/29/18 14:00 08/29/18 14:01 08/29/18 14:31 Temperature Pulse Rate 81 81 79 Blood Pressure 100/72 96/60 L Pulse Oximetry 99 98 98 08/29/18 15:00 08/29/18 15:01 08/29/18 15:15 Temperature Pulse Rate 82 82 85 Blood Pressure 90/66 L 97/78 L Pulse Oximetry 100 99 100 08/29/18 15:44 08/29/18 15:45 08/29/18 16:00 Temperature Pulse Rate 85 85 85 Blood Pressure 109/82 117/84 110/84 Pulse Oximetry 99 100 99 08/29/18 16:15 08/29/18 16:30 08/29/18 17:00 Temperature Pulse Rate 85 86 83 Blood Pressure 98/70 L 104/80 Pulse Oximetry 97 100 94 L 08/29/18 17:01 08/29/18 17:15 08/29/18 17:29 Temperature Pulse Rate 83 90 Blood Pressure 106/80 91/54 L Pulse Oximetry 99 78 L 97 08/29/18 17:31 08/29/18 17:45 08/29/18 18:00 Temperature Pulse Rate 86 83 83 Blood Pressure 113/78 120/78 128/79 Pulse Oximetry 97 100 93 L 08/29/18 18:15 08/29/18 18:30 08/29/18 18:45 Temperature Pulse Rate 84 85 85 Blood Pressure 113/80 105/87 108/83 Pulse Oximetry 99 99 100 08/29/18 19:00 08/29/18 19:15 08/29/18 19:30 Temperature Pulse Rate 82 79 83 Blood Pressure 99/80 L 102/71 103/79 Pulse Oximetry 99 97 99 08/29/18 19:46 08/29/18 20:00 08/29/18 20:15 Temperature Pulse Rate 83 85 85 Blood Pressure 111/77 108/84 119/87 Pulse Oximetry 93 L 90 L 100 08/29/18 20:30 08/29/18 20:45 08/29/18 21:00 Temperature 97.6 F Pulse Rate 84 84 87 Blood Pressure 114/89 109/93 H 113/84 Pulse Oximetry 98 100 95 08/29/18 21:05 08/29/18 21:15 08/29/18 21:30 Temperature Pulse Rate 84 85 85 Blood Pressure 113/84 115/77 115/79 Pulse Oximetry 08/29/18 21:45 08/29/18 22:00 08/29/18 22:01 Temperature Pulse Rate 85 87 87 Blood Pressure 111/84 106/79 Pulse Oximetry 92 L 97 94 L 08/29/18 22:16 08/29/18 22:31 08/29/18 22:45 Temperature Pulse Rate 86 85 81 Blood Pressure 120/86 101/70 87/61 L Pulse Oximetry 100 97 81 L 08/29/18 23:00 08/29/18 23:20 08/29/18 23:35 Temperature Pulse Rate 82 86 86 Blood Pressure 92/64 L 110/83 110/85 Pulse Oximetry 90 L 100 98 08/29/18 23:45 08/30/18 00:00 08/30/18 00:15 Temperature Pulse Rate 83 87 91 H Blood Pressure 116/84 120/92 H 119/88 Pulse Oximetry 08/30/18 00:45 08/30/18 01:00 08/30/18 02:00 Temperature Pulse Rate 87 86 81 Blood Pressure 123/88 107/74 116/84 Pulse Oximetry 55 L 08/30/18 02:01 08/30/18 03:00 08/30/18 03:06 Temperature Pulse Rate 81 85 83 Blood Pressure 116/84 141/94 H 141/94 H Pulse Oximetry 55 L 98 08/30/18 04:00 08/30/18 05:00 08/30/18 05:01 Temperature Pulse Rate 88 92 H 90 Blood Pressure 108/83 Pulse Oximetry 85 L 100 08/30/18 06:00 08/30/18 06:27 08/30/18 07:00 Temperature Pulse Rate 90 86 Blood Pressure 128/79 Pulse Oximetry 100 Intake & Output 08/29/18 08/30/18 08/30/18 18:59 06:59 18:59 Intake Total 2250 / 2250 1400 / 1400 300 / 300 Output Total 525 / 525 1180 / 1180 Balance 1725 / 1725 220 / 220 300 / 300 Weight 70.3 kg Intake: IV 1550 / 1550 1100 / 1100 300 / 300 D5W Inj 1,000 ML @ 75 mls/hr IV 1000 / 1000 1000 / 1000 300 / 300 .CONT .[id number] [facility] Rx#:[id number] Azithromycin Inj 500 MG In NS 250 / 250 Inj 250 ML @ 250 mls/hr IV.SIG Q24H [facility] Rx#:[id number] Maxipime Inj 2,000 MG In NS Inj 100 / 100 100 ML @ 200 mls/hr IV.SIG Q24H [facility] Rx#:[id number] Flagyl 500 MG Inj 100 ML @ 100 200 / 200 100 / 100 mls/hr IV.SIG Q8H [facility] Rx#: [id number] Oral 700 / 700 300 / 300 Output: Stool 100 / 100 200 / 200 Urine Amount (Catheter) 125 / 125 200 / 200 Female External 125 / 125 200 / 200 Chest Tube Drainage 300 / 300 780 / 780 Right Mid-Axillary Chest 300 / 300 780 / 780 Other: # Incontinent Voids 1 5 Date of Last Bowel Movement 08/29/18 08/30/18 # Incontinent Bowel Movements 2 Narrative: GENERAL: lethargic, weak, and ill appearing. SKIN: warm and dry. HEAD: Normocephalic. CARDIOVASCULAR: Regular rate and rhythm with no murmurs, rubs or gallops. RESPIRATORY: Clear to auscultation bilaterally, chest tube in place on right side. GASTROINTESTINAL: Abdomen soft, non-tender, nondistended. EXTREMITIES: No lower ext edema, NEUROLOGICAL: No focal deficits. - Urinary Catheter Management Indwelling Urethral Catheter Cath placed during this visit: yes, but has since been removed by the nurse Reason for continuing: Decision to DC catheter Insertion date: 08/16/18 Removal date: 08/28/18 Removal time: 18:00 Female External Cath placed during this visit: no Assessment and Plan - Assessment (1) Acute kidney injury superimposed on CKD Code(s): N17.9 - Acute kidney failure, unspecified; N18.9 - Chronic kidney disease, unspecified Status: Acute Plan: Patient remains nonoliguric acute renal failure and chronic kidney disease. She has cardiorenal syndrome. 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 I have discussed it with the patient and her family. Poor prognosis. Hypernatremia has improved. (2) Acute exacerbation of congestive heart failure Code(s): I50.9 - Heart failure, unspecified Status: Acute Plan: Cardiology following. She has cardiomyopathy EF 20%. (3) Severe sepsis Code(s): A41.9 - Sepsis, unspecified organism; R65.20 - Severe sepsis without septic shock Status: Acute Plan: Patient on Flagyl, Azithromycin, and Cefepime. (4) Pneumonia Code(s): J18.9 - Pneumonia, unspecified organism Status: Acute Plan: Patient is being treated with IV antibiotics (5) Hypokalemia Code(s): E87.6 - Hypokalemia Status: Acute Plan: Replace as needed.
--- NOTE | 2018-08-30 10:49 | P.PNCA ---
Subjective Interval history: Patient denies any CP, pressure, palpitations, dizziness or SOB. She states that she is feeling better today. She is currently eating breakfast with her helping. Medications and Allergies Allergies Allergy/AdvReac Type Severity Reaction Status Date / Time iodine Allergy Severe sneezing, Verified 08/15/18 08:37 chest tightness potassium iodide Allergy Severe sneezing, Verified 08/15/18 08:37 chest tightness povidone-iodine Allergy Severe sneezing, Verified 08/15/18 08:37 chest tightness sodium iodide Allergy Severe sneezing, Verified 08/15/18 08:37 chest tightness sodium iodide Allergy Severe sneezing, Verified 08/15/18 08:37 chest tightness sulfamethoxazole Allergy Intermediate abdominal Verified 08/15/18 08:37 pain trimethoprim Allergy Intermediate abdominal Verified 08/15/18 08:37 pain hydralazine Allergy Unknown Edema Verified 08/15/18 08:37 Statins Allergy Intermediate Hives Uncoded 08/15/18 08:37 Home Medications Medication Instructions Recorded Confirmed Type bumetanide 2 mg PO DAILY 05/21/18 08/15/18 History carvedilol 25 mg PO BID 05/21/18 08/15/18 History potassium chloride 20 meq PO DAILY 05/21/18 08/15/18 History spironolactone 50 mg PO DAILY 05/21/18 08/15/18 History warfarin 2 mg PO DAILY 08/15/18 08/15/18 History Active Medications: Active Medications Al Hydroxide/Mg Hydroxide (Milk Of Magnesia Liq) 30 ml PO Q12H PRN PRN Reason: Mild Constipation Bisacodyl (Dulcolax Supp) 10 mg RECTAL DAILY PRN PRN Reason: SEVERE CONSITIPATION Metronidazole/Sodium Chloride (Flagyl 500 Mg Inj) 100 mls @ 100 mls/hr IV.SIG Q8H [facility] Last Infusion: 08/30/18 09:18 Dose: Infused Cefepime HCl 2,000 mg/ Sodium (Chloride) 100 mls @ 200 mls/hr IV.SIG Q24H [facility] Stop: 08/31/18 08:00 Last Infusion: 08/30/18 08:50 Dose: Infused Lactulose (Lactulose Liq) 30 ml PO DAILY PRN PRN Reason: SEVERE CONSITIPATION Metoprolol Tartrate (Lopressor) 12.5 mg PO TID [facility] Last Admin: 08/30/18 08:21 Dose: 12.5 mg Miscellaneous (Pill Splitter) 1 each OTHER UNSCH PRN PRN Reason: SEE LABEL COMMENTS Miscellaneous (Pill Splitter) 1 each OTHER UNSCH PRN PRN Reason: SEE LABEL COMMENTS Ondansetron HCl (Zofran Inj) 4 mg IV.PUSH Q6H PRN PRN Reason: NAUSEA OR VOMITING Last Admin: 08/16/18 14:05 Dose: 4 mg Ondansetron HCl (Zofran Odt) 4 mg PO Q6H PRN PRN Reason: NAUSEA OR VOMITING Potassium Chloride (K-Dur) 20 meq PO DAILY [facility] Last Admin: 08/30/18 08:21 Dose: 20 meq Promethazine HCl (Phenergan) 25 mg PO Q6H PRN PRN Reason: NAUSEA OR VOMITING Promethazine HCl (Phenergan Supp) 25 mg RECTAL Q6H PRN PRN Reason: NAUSEA OR VOMITING Senna/Docusate Sodium (Aleyda-Colace) 1 tab PO BID [facility] Last Admin: 08/30/18 08:21 Dose: Not Given Sennosides (Senokot) 17.2 mg PO Q12H PRN PRN Reason: Moderate Constipation Sodium Chloride (Ns Flush) 2 ml IV.FLUSH BID [facility] Last Admin: 08/30/18 08:21 Dose: 2 ml Sodium Chloride (Ns Flush) 2 ml IV.FLUSH UNSCH PRN PRN Reason: FLUSH AFTER USING IV ACCESS Warfarin Sodium (Coumadin) 1 mg PO DAILY@1600 [facility] Last Admin: 08/29/18 17:39 Dose: 1 mg Physical Exam Vital signs: Vital Signs 08/29/18 11:00 08/29/18 11:01 08/29/18 11:15 Temperature Pulse Rate 81 81 79 Blood Pressure 129/92 H 121/85 Pulse Oximetry 96 99 100 08/29/18 11:30 08/29/18 12:00 08/29/18 12:01 Temperature Pulse Rate 81 79 79 Blood Pressure 113/86 108/76 Pulse Oximetry 100 95 94 L 08/29/18 12:15 08/29/18 12:30 08/29/18 12:45 Temperature Pulse Rate 81 83 80 Blood Pressure 107/83 117/79 114/77 Pulse Oximetry 100 100 100 08/29/18 13:00 08/29/18 13:30 08/29/18 13:46 Temperature Pulse Rate 82 79 81 Blood Pressure 117/75 107/72 102/73 Pulse Oximetry 99 96 100 08/29/18 14:00 08/29/18 14:01 08/29/18 14:31 Temperature Pulse Rate 81 81 79 Blood Pressure 100/72 96/60 L Pulse Oximetry 99 98 98 08/29/18 15:00 08/29/18 15:01 08/29/18 15:15 Temperature Pulse Rate 82 82 85 Blood Pressure 90/66 L 97/78 L Pulse Oximetry 100 99 100 08/29/18 15:44 08/29/18 15:45 08/29/18 16:00 Temperature Pulse Rate 85 85 85 Blood Pressure 109/82 117/84 110/84 Pulse Oximetry 99 100 99 08/29/18 16:15 08/29/18 16:30 08/29/18 17:00 Temperature Pulse Rate 85 86 83 Blood Pressure 98/70 L 104/80 Pulse Oximetry 97 100 94 L 08/29/18 17:01 08/29/18 17:15 08/29/18 17:29 Temperature Pulse Rate 83 90 Blood Pressure 106/80 91/54 L Pulse Oximetry 99 78 L 97 08/29/18 17:31 08/29/18 17:45 08/29/18 18:00 Temperature Pulse Rate 86 83 83 Blood Pressure 113/78 120/78 128/79 Pulse Oximetry 97 100 93 L 08/29/18 18:15 08/29/18 18:30 08/29/18 18:45 Temperature Pulse Rate 84 85 85 Blood Pressure 113/80 105/87 108/83 Pulse Oximetry 99 99 100 08/29/18 19:00 08/29/18 19:15 08/29/18 19:30 Temperature Pulse Rate 82 79 83 Blood Pressure 99/80 L 102/71 103/79 Pulse Oximetry 99 97 99 08/29/18 19:46 08/29/18 20:00 08/29/18 20:15 Temperature Pulse Rate 83 85 85 Blood Pressure 111/77 108/84 119/87 Pulse Oximetry 93 L 90 L 100 08/29/18 20:30 08/29/18 20:45 08/29/18 21:00 Temperature 97.6 F Pulse Rate 84 84 87 Blood Pressure 114/89 109/93 H 113/84 Pulse Oximetry 98 100 95 08/29/18 21:05 08/29/18 21:15 08/29/18 21:30 Temperature Pulse Rate 84 85 85 Blood Pressure 113/84 115/77 115/79 Pulse Oximetry 08/29/18 21:45 08/29/18 22:00 08/29/18 22:01 Temperature Pulse Rate 85 87 87 Blood Pressure 111/84 106/79 Pulse Oximetry 92 L 97 94 L 08/29/18 22:16 08/29/18 22:31 08/29/18 22:45 Temperature Pulse Rate 86 85 81 Blood Pressure 120/86 101/70 87/61 L Pulse Oximetry 100 97 81 L 08/29/18 23:00 08/29/18 23:20 08/29/18 23:35 Temperature Pulse Rate 82 86 86 Blood Pressure 92/64 L 110/83 110/85 Pulse Oximetry 90 L 100 98 08/29/18 23:45 08/30/18 00:00 08/30/18 00:15 Temperature Pulse Rate 83 87 91 H Blood Pressure 116/84 120/92 H 119/88 Pulse Oximetry 08/30/18 00:45 08/30/18 01:00 08/30/18 02:00 Temperature Pulse Rate 87 86 81 Blood Pressure 123/88 107/74 116/84 Pulse Oximetry 55 L 08/30/18 02:01 08/30/18 03:00 08/30/18 03:06 Temperature Pulse Rate 81 85 83 Blood Pressure 116/84 141/94 H 141/94 H Pulse Oximetry 55 L 98 08/30/18 04:00 08/30/18 05:00 08/30/18 05:01 Temperature Pulse Rate 88 92 H 90 Blood Pressure 108/83 Pulse Oximetry 85 L 100 08/30/18 06:00 08/30/18 06:27 08/30/18 07:00 Temperature Pulse Rate 90 86 Blood Pressure 128/79 Pulse Oximetry 100 08/30/18 08:00 08/30/18 09:06 08/30/18 10:00 Temperature 98.4 F Pulse Rate 90 83 Blood Pressure 111/76 Pulse Oximetry 96 100 Intake & Output 08/29/18 08/30/18 08/30/18 18:59 06:59 18:59 Intake Total 2250 / 2250 1400 / 1400 500 / 500 Output Total 525 / 525 1180 / 1180 Balance 1725 / 1725 220 / 220 500 / 500 Weight 70.3 kg Intake: IV 1550 / 1550 1100 / 1100 500 / 500 D5W Inj 1,000 ML @ 75 mls/hr IV 1000 / 1000 1000 / 1000 300 / 300 .CONT .[id number] ANA[facility] Rx#:[id number] Azithromycin Inj 500 MG In NS 250 / 250 Inj 250 ML @ 250 mls/hr IV.SIG Q24H [facility] Rx#:[id number] Maxipime Inj 2,000 MG In NS Inj 100 / 100 100 / 100 100 ML @ 200 mls/hr IV.SIG Q24H [facility] Rx#:[id number] Flagyl 500 MG Inj 100 ML @ 100 200 / 200 100 / 100 100 / 100 mls/hr IV.SIG Q8H [facility] Rx#: [id number] Oral 700 / 700 300 / 300 Output: Stool 100 / 100 200 / 200 Urine Amount (Catheter) 125 / 125 200 / 200 Female External 125 / 125 200 / 200 Chest Tube Drainage 300 / 300 780 / 780 Right Mid-Axillary Chest 300 / 300 780 / 780 Other: # Incontinent Voids 1 5 Date of Last Bowel Movement 08/29/18 08/30/18 08/30/18 # Incontinent Bowel Movements 2 - Constitutional no acute distress - Routine HEENT Exam Head: Present: normocephalic Eye: Present: PERRL ENT: Present: mucous membranes moist - Routine Neck Exam Present: full ROM - Routine Respiratory Exam Present: CTA bilaterally - Routine Cardiovascular Exam Present: S1, S2, murmur. Absent: gallop, rubs - Routine Abdominal Exam Present: normoactive bowel sounds - Routine Extremities Exam Present: edema, full ROM, pulses intact, normal capillary refill. Absent: cyanosis, clubbing - Routine Skin Exam Present: intact - Routine Neurological Exam Present: oriented X3 - Detailed Neurological Exam: Coma Scale Eye Opening: Spontaneous Verbal Response: Oriented Motor Response: Obey commands Kindra Coma Scale Total: 15 - Routine Psychiatric Exam Present: normal affect - Urinary Catheter Management Indwelling Urethral Catheter Cath placed during this visit: yes, but has since been removed by the nurse Reason for continuing: Decision to DC catheter Insertion date: 08/16/18 Removal date: 08/28/18 Removal time: 18:00 Female External Cath placed during this visit: no Results 08/30/18 04:26 08/30/18 04:26 Cardiac Enzymes 08/30/18 Range/Units 04:26 AST 101 H (15-37) U/L Coagulation 08/29/18 Range/Units 04:53 PT 26.5 H (9.8-11.6) sec CBC 08/29/18 08/30/18 Range/Units 04:53 04:26 WBC 10.9 11.5 H (4.0-11.0) th/mm3 RBC 4.00 4.18 (4.00-5.30) mil/mm3 Hgb 9.5 L 9.9 L (11.6-15.3) gm/dL Hct 29.2 L 30.1 L (35.0-46.0) % Plt Count 95 L D 82 L (150-450) th/mm3 Neut # (Auto) 8.1 H (1.8-7.7) th/mm3 Lymph # (Auto) 1.4 (1.0-4.8) th/mm3 Dane # (Auto) 1.4 H (0.0-0.9) th/mm3 Eos # (Auto) 0.0 (0.0-0.4) th/mm3 Baso # (Auto) 0.0 (0.0-0.2) th/mm3 Comprehensive Metabolic Panel 08/29/18 08/30/18 Range/Units 04:53 04:26 Sodium 150 H 142 (136-145) meq/L Potassium 3.5 3.3 L (3.5-5.1) meq/L Chloride 112 H 106 (98-107) meq/L Carbon Dioxide 23.5 19.3 L (21.0-32.0) meq/L BUN 147 H 134 H (7-18) mg/dL Creatinine 2.87 H 2.74 H (0.50-1.00) mg/dL Calcium 9.0 8.6 (8.5-10.1) mg/dL AST 101 H (15-37) U/L ALT 57 H (10-53) U/L Alkaline Phosphatase 94 (45-117) U/L Total Protein 6.1 L (6.4-8.2) g/dL Albumin 3.5 (3.4-5.0) g/dL Intake and Output 08/29/18 08/30/18 08/30/18 22:59 06:59 14:59 Intake Total 800 / 800 1400 / 1400 500 / 500 Output Total 525 / 525 1180 / 1180 Balance 275 / 275 220 / 220 500 / 500 Intake: IV 100 / 100 1100 / 1100 500 / 500 D5W Inj 1,000 ML @ 75 mls/hr IV 1000 / 1000 300 / 300 .CONT .[id number] [facility] Rx#:[id number] Maxipime Inj 2,000 MG In NS Inj 100 / 100 100 ML @ 200 mls/hr IV.SIG Q24H [facility] Rx#:[id number] Flagyl 500 MG Inj 100 ML @ 100 100 / 100 100 / 100 100 / 100 mls/hr IV.SIG Q8H [facility] Rx#: [id number] Oral 700 / 700 300 / 300 Output: Stool 100 / 100 200 / 200 Urine Amount (Catheter) 125 / 125 200 / 200 Female External 125 / 125 200 / 200 Chest Tube Drainage 300 / 300 780 / 780 Right Mid-Axillary Chest 300 / 300 780 / 780 Other: # Incontinent Voids 1 5 Date of Last Bowel Movement 08/29/18 08/30/18 08/30/18 # Incontinent Bowel Movements 2 Weight 70.3 kg - Imaging and Cardiology Imaging: Impressions Liver Ultrasound 08/29/18 00:00 CONCLUSION: 1. Distended hepatic veins may be related to right heart failure. 2. Diffuse gallbladder wall thickening and pericholecystic fluid but no gallstones and no sonographic Lombardo sign. May be related to hypoalbuminemia. 3. Small amount of ascites. 4. Nonobstructing calculus in the midpole of the right kidney. Chest X-Ray 08/29/18 05:00 CONCLUSION: Interval extubation. Grossly stable aeration. Chest X-Ray 08/30/18 06:00 CONCLUSION: No significant change Assessment and Plan - Assessment (1) Acute exacerbation of CHF (congestive heart failure) Code(s): I50.9 - Heart failure, unspecified Status: Acute (2) Severe sepsis Code(s): A41.9 - Sepsis, unspecified organism; R65.20 - Severe sepsis without septic shock Status: Acute (3) Fluid overload Code(s): E87.70 - Fluid overload, unspecified Status: Acute (4) Acute worsening of stage 3 chronic kidney disease Code(s): N18.3 - Chronic kidney disease, stage 3 (moderate) Status: Acute (5) Anemia Code(s): D64.9 - Anemia, unspecified Status: Acute (6) Pacemaker Code(s): Z95.0 - Presence of cardiac pacemaker Status: Acute (7) Supraventricular tachycardia Code(s): I47.1 - Supraventricular tachycardia Status: Acute (8) Pneumonia Code(s): J18.9 - Pneumonia, unspecified organism Status: Acute (9) Cardiomyopathy Code(s): I42.9 - Cardiomyopathy, unspecified Status: Acute (10) Pulmonary edema Code(s): J81.1 - Chronic pulmonary edema Status: Acute (11) Lactic acidemia Code(s): E87.2 - Acidosis Status: Acute (12) Hypertension Code(s): I10 - Essential (primary) hypertension Status: Acute (13) Cardiogenic shock Code(s): R57.0 - Cardiogenic shock Status: Acute - Plan She continues to remain stable from a cardiac standpoint. We will continue with the current treatment plan and adjust as needed. Renal function slightly improved today, nephrology evaluation and treatment in progress. Discussed with her and her the importance of getting more active. Continue to increase her activity as she tolerates, PT. We will continue to monitor the patient during her hospitalization and follow up in our office after discharge from the hospital. The patient was seen and evaluated by Dr. Mae who participated in care, management and decision making. - Attending Attestation Patient seen and examined. I reviewed and agree with the evaluation and plan as presented. Continue ICU care including tx for CHF. Increase activity, PT. D/w pt and . (1) Acute exacerbation of CHF (congestive heart failure) Qualifiers: Heart failure type: systolic Qualified Code(s): I50.23 - Acute on chronic systolic (congestive) heart failure (3) Fluid overload Qualifiers: Hypervolemia type: unspecified Qualified Code(s): E87.70 - Fluid overload, unspecified (8) Pneumonia Qualifiers: Pneumonia type: due to unspecified organism Lung location: unspecified part of lung (12) Hypertension Qualifiers: Hypertension type: unspecified Qualified Code(s): I10 - Essential (primary) hypertension
--- NOTE | 2018-08-30 11:43 | P.PNCC ---
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 Patient also had productive cough and frothy sputum, sometimes blood tinged. She also complained about declining urinary output. Initial ER workup showed a normal white count, however BUN was elevated at 80 and creatinine 2.72. BNP was more than 4000. Chest x-ray showed right midlung infiltrate. Patient received Rocephin and azithromycin for community-acquired pneumonia. Patient was admitted to the [facility]. After admission due to the shortness of breath pedal edema and elevated BNP [facility] gave the patient 20 mg IV Lasix but without much urine output. Initially patient had HR of 170's EKG appeared to be SVT and patient converted to NSR with IV Cardizem 25 mg. However patient's blood pressure started to decline. Because of this patient was given IV fluid boluses total 1.5 L had been given. Systolic blood pressure remains at 70s. Lactic acid was checked and was 8.1. With this information critical care medicine was consulted I evaluated the patient emergently. She is lethargic but wakes up easily answers questions. Still profoundly hypotensive despite 1.5 L bolus. I have ordered additional 500 mL bolus and will start Levophed at 5 mcg/min and titrate as needed. It was noted had that her INR is 5.2. Patient may benefit from inotropic agents if blood pressure improves. Antibiotics had been broadened into cefepime and azithromycin, I will also add IV Zyvox. Hold all further diuresis due to septic shock. Patient is very critical at this time 08/16: Patient sitting up in bed. Off Levophed however urine output is minimal only 75 mL urine output since admission. CVP remains elevated at 14-15. I will attempt forced diuresis with Bumex 2 mg x1 and Bumex 0.5 mg/h infusion. If no response may need hemodialysis. Follow-up chest x-ray today is pending. Chest x-ray shows persistent right sided infiltrate and effusion 08/17: Patient developed PEA cardiac arrest yesterday afternoon. No immediate inciting factors could be identified however most likely cardiac. 2D echo ordered pending. CT of the head pending. Currently patient had been weaned off all of the pressors however remains encephalopathy. Creatinine is worsening to 3.8 however urine output has improved approximately 500 ml UO in the last 12 hours. 08/18: Patient remains intubated lightly sedated. On lightening sedation patient wakes up easily following commands. Remains on Bumex infusion approximately 6 L urine output. However chest x-ray showing pulmonary edema. Remains off pressors. Will attempt CPAP trials. CT head did not show any acute finding 08/19: Diuresing well with Bumex infusion achieving negative balance however chest x-ray shows bilateral pulmonary vascular congestion and bilateral at least moderate effusions. These are secondary to decompensated heart failure. EF is less than 20 with severe MR. Creatinine down to 3. Prognosis overall is poor despite milrinone and diuresis patient is not proving adequately. We will consult palliative care to address goals of care 08/20: Patient continues to be in decompensated congestive heart failure. Despite increasing Bumex to 2 mg/h, urine output has decreased to 1.6 L in 24 hours. Chest x-ray continued to show bilateral large pleural effusions. Right- sided pigtail chest tube was placed today with 1 L output initially. Milrinone discontinued due to increasing ventricular irritability. 08/21: Remains sedated, orally intubated on mechanical ventilation. Bumex drip continues. 08/22: Off sedation since 08/18. Intubated and on PSV / CPAP. Not following commands. 08/23: Intubated and on PRVC A/C currently. Had tachycardia during CPAP trials today. She is following commands now. 08/24: Intubated and currently on CPAP / PSV w/ pressures of 10/5. When pressure support was decreased to 7/5 she became tachypneic 08/25: On mechanical ventilation. Awake, follows commands. Significant output from right-sided pigtail catheter. 08/26: Remains on mechanical ventilation. Remains off sedation. Awake, follows commands. Drained about 1 L from right pigtail catheter. Added free water for hypernatremia. BUN remains elevated. 08/27: Mechanically ventilated, off sedation. Awake and following commands. Pigtail catheter drained 150cc today, but is obstructed by thick fluid. 08/28: Extubated yesterday PM, off sedation. Awake, alert. Reports she is comfortable with no CP, SOB, or abdominal pain. Pigtail catheter drained ~190 cc last 24 hours. Off all pressors. Getting D5W IV for hypernatremia. 08/29: Extubated yesterday tolerating well breathing comfortably. Sodium trending down 150 today. Diflucan started by family practice for urine culture with Belkis. Chest tube right-sided still with high output 710 mL in 24 hours SUBJECTIVE 08/30: Complaining of "sore bottom". Discontinue antibiotics today. Currently resting in bed on nasal cannula no acute distress. Right-sided chest tube remains in place. Objective Vital Signs / I&O: Vital Signs 08/29/18 12:00 08/29/18 12:01 08/29/18 12:15 Temperature Pulse Rate 79 79 81 Blood Pressure 108/76 107/83 Pulse Oximetry 95 94 L 100 08/29/18 12:30 08/29/18 12:45 08/29/18 13:00 Temperature Pulse Rate 83 80 82 Blood Pressure 117/79 114/77 117/75 Pulse Oximetry 100 100 99 08/29/18 13:30 08/29/18 13:46 08/29/18 14:00 Temperature Pulse Rate 79 81 81 Blood Pressure 107/72 102/73 Pulse Oximetry 96 100 99 08/29/18 14:01 08/29/18 14:31 08/29/18 15:00 Temperature Pulse Rate 81 79 82 Blood Pressure 100/72 96/60 L Pulse Oximetry 98 98 100 08/29/18 15:01 08/29/18 15:15 08/29/18 15:44 Temperature Pulse Rate 82 85 85 Blood Pressure 90/66 L 97/78 L 109/82 Pulse Oximetry 99 100 99 08/29/18 15:45 08/29/18 16:00 08/29/18 16:15 Temperature Pulse Rate 85 85 85 Blood Pressure 117/84 110/84 98/70 L Pulse Oximetry 100 99 97 08/29/18 16:30 08/29/18 17:00 08/29/18 17:01 Temperature Pulse Rate 86 83 83 Blood Pressure 104/80 106/80 Pulse Oximetry 100 94 L 99 08/29/18 17:15 08/29/18 17:29 08/29/18 17:31 Temperature Pulse Rate 90 86 Blood Pressure 91/54 L 113/78 Pulse Oximetry 78 L 97 97 08/29/18 17:45 08/29/18 18:00 08/29/18 18:15 Temperature Pulse Rate 83 83 84 Blood Pressure 120/78 128/79 113/80 Pulse Oximetry 100 93 L 99 08/29/18 18:30 08/29/18 18:45 08/29/18 19:00 Temperature Pulse Rate 85 85 82 Blood Pressure 105/87 108/83 99/80 L Pulse Oximetry 99 100 99 08/29/18 19:15 08/29/18 19:30 08/29/18 19:46 Temperature Pulse Rate 79 83 83 Blood Pressure 102/71 103/79 111/77 Pulse Oximetry 97 99 93 L 08/29/18 20:00 08/29/18 20:15 08/29/18 20:30 Temperature Pulse Rate 85 85 84 Blood Pressure 108/84 119/87 114/89 Pulse Oximetry 90 L 100 98 08/29/18 20:45 08/29/18 21:00 08/29/18 21:05 Temperature 97.6 F Pulse Rate 84 87 84 Blood Pressure 109/93 H 113/84 113/84 Pulse Oximetry 100 95 08/29/18 21:15 08/29/18 21:30 08/29/18 21:45 Temperature Pulse Rate 85 85 85 Blood Pressure 115/77 115/79 111/84 Pulse Oximetry 92 L 08/29/18 22:00 08/29/18 22:01 08/29/18 22:16 Temperature Pulse Rate 87 87 86 Blood Pressure 106/79 120/86 Pulse Oximetry 97 94 L 100 08/29/18 22:31 08/29/18 22:45 08/29/18 23:00 Temperature Pulse Rate 85 81 82 Blood Pressure 101/70 87/61 L 92/64 L Pulse Oximetry 97 81 L 90 L 08/29/18 23:20 08/29/18 23:35 08/29/18 23:45 Temperature Pulse Rate 86 86 83 Blood Pressure 110/83 110/85 116/84 Pulse Oximetry 100 98 08/30/18 00:00 08/30/18 00:15 08/30/18 00:45 Temperature Pulse Rate 87 91 H 87 Blood Pressure 120/92 H 119/88 123/88 Pulse Oximetry 08/30/18 01:00 08/30/18 02:00 08/30/18 02:01 Temperature Pulse Rate 86 81 81 Blood Pressure 107/74 116/84 116/84 Pulse Oximetry 55 L 55 L 08/30/18 03:00 08/30/18 03:06 08/30/18 04:00 Temperature Pulse Rate 85 83 88 Blood Pressure 141/94 H 141/94 H Pulse Oximetry 98 85 L 08/30/18 05:00 08/30/18 05:01 08/30/18 06:00 Temperature Pulse Rate 92 H 90 90 Blood Pressure 108/83 Pulse Oximetry 100 08/30/18 06:27 08/30/18 07:00 08/30/18 08:00 Temperature 98.4 F Pulse Rate 86 90 Blood Pressure 128/79 111/76 Pulse Oximetry 100 96 08/30/18 09:06 08/30/18 10:00 Temperature Pulse Rate 83 Blood Pressure Pulse Oximetry 100 Intake & Output 08/29/18 08/30/18 08/30/18 18:59 06:59 18:59 Intake Total 2250 / 2250 1400 / 1400 500 / 500 Output Total 525 / 525 1180 / 1180 Balance 1725 / 1725 220 / 220 500 / 500 Weight 70.3 kg Intake: IV 1550 / 1550 1100 / 1100 500 / 500 D5W Inj 1,000 ML @ 75 mls/hr IV 1000 / 1000 1000 / 1000 300 / 300 .CONT .[id number] ANAHI Rx#:[id number] Azithromycin Inj 500 MG In NS 250 / 250 Inj 250 ML @ 250 mls/hr IV.SIG Q24H ANAHI Rx#:[id number] Maxipime Inj 2,000 MG In NS Inj 100 / 100 100 / 100 100 ML @ 200 mls/hr IV.SIG Q24H ANAHI Rx#:[id number] Flagyl 500 MG Inj 100 ML @ 100 200 / 200 100 / 100 100 / 100 mls/hr IV.SIG Q8H ANAHI Rx#: [id number] Oral 700 / 700 300 / 300 Output: Stool 100 / 100 200 / 200 Urine Amount (Catheter) 125 / 125 200 / 200 Female External 125 / 125 200 / 200 Chest Tube Drainage 300 / 300 780 / 780 Right Mid-Axillary Chest 300 / 300 780 / 780 Other: # Incontinent Voids 1 5 Date of Last Bowel Movement 08/29/18 08/30/18 08/30/18 # Incontinent Bowel Movements 2 Result Diagrams: 08/30/18 04:26 08/30/18 04:26 Other Results: Microbiology 08/27/18 12:48 Blood - Peripheral Aerobic Blood Culture - Preliminary No growth in 3 days 08/27/18 12:48 Blood - Peripheral Anaerobic Blood Culture - Preliminary No growth in 3 days 08/27/18 12:58 Blood - Peripheral Aerobic Blood Culture - Preliminary No growth in 3 days 08/27/18 12:58 Blood - Peripheral Anaerobic Blood Culture - Preliminary No growth in 3 days 08/27/18 17:00 Catheterized Urine Urine Culture - Final Belkis albicans 08/22/18 17:55 Sputum - Endotracheal Gram Stain - Final 08/22/18 17:55 Sputum - Endotracheal Sputum Culture - Final Moderate growth normal respiratory bear 08/16/18 13:20 Fluid - Pleural fluid Fungal Smear - Final No fungal elements seen 08/16/18 13:20 Fluid - Pleural fluid Fungal Culture - Preliminary No growth in 1 week 08/16/18 13:20 Fluid - Pleural fluid Acid Fast Bacilli Smear - Final No acid fast bacilli seen 08/16/18 13:20 Fluid - Pleural fluid Mycobacterial Culture - Preliminary No growth in 1 week 08/20/18 10:40 Fluid - Pleural fluid Gram Stain - Final 08/20/18 10:40 Fluid - Pleural fluid Body Fluid Culture - Final No growth in 72 hours (aerobically and anaerobically ) 08/15/18 12:40 Blood - Peripheral Aerobic Blood Culture - Final No growth in 5 days 08/15/18 12:40 Blood - Peripheral Anaerobic Blood Culture - Final No growth in 5 days 08/15/18 12:51 Blood - Peripheral Aerobic Blood Culture - Final No growth in 5 days 08/15/18 12:51 Blood - Peripheral Anaerobic Blood Culture - Final No growth in 5 days 08/16/18 13:20 Fluid - Pleural fluid Gram Stain - Final 08/16/18 13:20 Fluid - Pleural fluid Body Fluid Culture - Final No growth in 72 hours (aerobically and anaerobically ) Imaging: Chest X-Ray 08/15/18 08:09 CONCLUSION: Consolidation involving the right midlung potentially relating to an infectious infiltrate. Cardiomegaly. Chest X-Ray 08/15/18 15:41 CONCLUSION: Pleural effusion and consolidation right lung base persists. New left IJ central line are in excellent position without evidence of pneumothorax. Chest X-Ray 08/16/18 00:00 CONCLUSION: 1. Improving aeration in the right lung base with resolving airspace disease/ effusion. 2. Left IJ central venous catheter appears to been retracted slightly but still projects over the central venous system. 3. Compensated cardiomegaly. Chest X-Ray 08/16/18 14:58 CONCLUSION: ET tube in good position. Lungs are grossly clear. Head CT 08/17/18 00:00 CONCLUSION: 1. No acute intracranial abnormality demonstrated. 2. 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 . Chest X-Ray 08/17/18 06:00 CONCLUSION: Left basilar density. Chest X-Ray 08/18/18 06:00 CONCLUSION: Cardiomegaly Diffuse increased interstitial markings likely related to edema. Increased density at the bases being worse in the left likely related to bilateral effusions. Some degree of atelectasis or consolidation especially at the left base needs to be considered. Chest X-Ray 08/19/18 06:00 CONCLUSION: Suspected bilateral effusions which appear worse. Increased density seen throughout the lungs likely related to underlying diffuse processes such as edema. Cardiomegaly. Chest X-Ray 08/20/18 00:00 CONCLUSION: Satisfactory tube and line positioning. Improving aeration. Chest X-Ray 08/21/18 06:00 CONCLUSION: Stable chest x-ray with left basilar opacity representing either atelectasis, consolidation, and/or effusion. Right chest tube remains present and no pneumothorax is seen. Chest X-Ray 08/25/18 05:00 CONCLUSION: 1. Stable tubes and lines, as above. 2. Improved aeration in the left lower lung zone. 3. Cardiomegaly with mild positive fluid balance. Chest X-Ray 08/27/18 00:00 CONCLUSION: Nasogastric tube sidehole is not across the GE junction ET tube is just above the josh Compensated cardiomegaly with minimal consolidative changes left base Liver Ultrasound 08/29/18 00:00 CONCLUSION: 1. Distended hepatic veins may be related to right heart failure. 2. Diffuse gallbladder wall thickening and pericholecystic fluid but no gallstones and no sonographic Lombardo sign. May be related to hypoalbuminemia. 3. Small amount of ascites. 4. Nonobstructing calculus in the midpole of the right kidney. Chest X-Ray 08/29/18 05:00 CONCLUSION: Interval extubation. Grossly stable aeration. Chest X-Ray 08/30/18 06:00 CONCLUSION: No significant change Objective Remarks: General: Chronically ill-appearing -[place] female who is resting in bed comfortably on nasal cannula no acute distress HEENT: Normocephalic and atraumatic. MMM. PERRL. Mild right facial droop. Neck: Supple, no JVD Chest: Scar from AICD placement on the left upper chest. AICD now in right upper chest. Resp: Air entry slightly diminished in the right mid chest, occasional wet crackles heard. No wheezes or rhonchi. Chest tube in place 710 ml in 24 hours. Rate: NRRR without murmur GI: Abdomen soft and non-tender to palpation. Priscila shield in place. Skin: No rashes or lesions noted, dry skin Neuro: Awake and alert, following commands, oriented to situation. No new focal deficits. There is persistent mild right facial droop which appears chronic Assessment and Plan - Problem List (1) Severe sepsis Code(s): A41.9 - Sepsis, unspecified organism; R65.20 - Severe sepsis without septic shock Status: Acute (2) Pneumonia Code(s): J18.9 - Pneumonia, unspecified organism Status: Acute (3) Acute exacerbation of CHF (congestive heart failure) Code(s): I50.9 - Heart failure, unspecified Status: Acute (4) Acute on chronic kidney failure Code(s): N17.9 - Acute kidney failure, unspecified; N18.9 - Chronic kidney disease, unspecified Status: Acute (5) Pleural effusion Code(s): J90 - Pleural effusion, not elsewhere classified Status: Acute (6) PEA (Pulseless electrical activity) Code(s): I46.9 - Cardiac arrest, cause unspecified Status: Resolved (7) Hypertension Code(s): I10 - Essential (primary) hypertension Status: Acute (8) Supratherapeutic INR Code(s): R79.1 - Abnormal coagulation profile Status: Resolved (9) Nutrition, metabolism, and development symptoms Code(s): R63.8 - Other symptoms and signs concerning food and fluid intake Status: Acute - Assessment and Plan Plan: NEURO/PSYCH: History of CVA -right-sided weakness/facial droop -Prior metabolic encephalopathy secondary to sepsis, no evidence of significant anoxic injury from PEA arrest, now awake, alert, following commands -No evidence of new CVA at this time. CT 08/17 of the head negative for acute findings old right frontal stroke -Continue to monitor neuro status - no neuro checks needed at this point unless new symptoms arise RESP: Acute respiratory failure with bilateral pleural effusions -Right-sided chest tube in place -Status post ultrasound-guided thoracentesis, studies consistent with transudative versus early exudative effusion -Status post right pigtail chest tube placement (08/20) continues to have high output -Intubated and placed on mechanical ventilation during CPR 08/16/18, now extubated as of 08/27 PM -Pigtail still draining significant pleural fluid, will check daily CXR CV: Status post in hospital PEA cardiac arrest Decompensated systolic heart failure/acute Severe biventricular heart failure Severe MR/TR Mild troponin elevation SVT -resolved Cardiomyopathy ejection fraction 20% is History of essential hypertension -Following PEA cardiac arrest patient was on epinephrine and Levophed infusion as well as milrinone. Now off all pressor support. -2D echo previously showing EF 20-25%. Repeat 2D echo showed severely dilated right and left ventricle with severe biventricular dysfunction. LV EF less than 20%. Severe MR and TR. -Diuretics currently on hold -retail sales vitamin consultant following, appreciate assistance -Diltiazem drip stopped 08/23. Received 0.5 mg of digoxin 08/23. Metoprolol tartrate 12.5 mg 3 times daily At home on carvedilol 25 twice daily, spironolactone 50 mg daily bumetanide 2 mg daily GI: Elevated total bilirubin Elevated transaminases - famotidine -Advance diet as tolerated -Total bilirubin has been increasing, recheck CMP am -Liver ultrasound revealed gallbladder thickening chest cul-de-sac fluid without stones. -Check hepatitis panel and CPK and ammonia level now -Avoid nephrotoxic medications -GI consult for recommendations RENAL: Acute on chronic kidney disease Affecting right-sided nephrolithiasis -Monitor renal function closely. Bradley catheter. -Nephrology following: Today discontinued D5W through IV for hypernatremia nephrology does not think she would tolerate dialysis ID: Belkis UTI -Continue empiric cefepime, Flagyl and azithromycin -Blood and pleural fluid cultures negative to date. Sputum cx taken 08/22 showed moderate growth of respiratory bear. -WBC improving -Follow repeat cultures, NGTD -Belkis in urine culture, fluconazole given by family practice service HEME: Thrombocytopenia Microcytic anemia Leukocytosis Chronic warfarin use/2 mg daily -Mild stable anemia -Monitor CBC and coags daily -Restarted warfarin on 08/23: 1 mg p.o. daily (INR goal of 2-3). INR 2.6 08/29. Today's is pending ENDO/FEN: Acute hypokalemia -Electrolyte replacement as needed. Patient received 20 mEq potassium chloride today. Recheck in a.m. PROPH: -Bilateral lower extremity SCDs/warfarin provides DVT prophylaxis. PO famotidine. LINES: -Utilize peripheral IVs -Left IJ central line placed 08/15/2018, removed -Right femoral arterial line placed 08/16, now removed -Intubation and left femoral central line placement 08/16/2018, now removed -Right pigtail chest tube placed 08/20/2018, still with significant output 1080 cc past 24 hours level 2 (2) Pneumonia Qualifiers: Pneumonia type: due to unspecified organism Lung location: unspecified part of lung (3) Acute exacerbation of CHF (congestive heart failure) Qualifiers: Heart failure type: systolic Qualified Code(s): I50.23 - Acute on chronic systolic (congestive) heart failure (4) Acute on chronic kidney failure Qualifiers: Acute renal failure type: unspecified Chronic kidney disease stage: stage 4 ( severe) Qualified Code(s): N17.9 - Acute kidney failure, unspecified; N18.4 - Chronic kidney disease, stage 4 (severe) (7) Hypertension Qualifiers: Hypertension type: unspecified Qualified Code(s): I10 - Essential (primary) hypertension
[2018-08-30 12:00] LABS: INR 3.9 Ratio; Prothrombin Time 39.5 sec (9.8-11.6)
[2018-08-30] MEDS ORDERED: Phytonadione 5 MG/SWFI 5 ML Oral Syringe PO ONE (14:30)
--- NOTE | 2018-08-30 14:40 | P.PNPAL ---
Reason for Visit Reason for visit: a. To assist with evaluation and management of symptoms including: Shortness of breath, pain, debility b. To assist medical decision maker(s) with: better understanding of current medical conditions; weighing benefits/burdens of medical treatment options; making medical treatment decisions. Subjective Subjective/Interval History: Follow-up medically necessary for symptom management and family support. Patient remains in MICU. Seen and examined in the presence of her spouse and her brother. Patient is awake, lethargic, oriented to self, place, time and partly situation. Patient dozing off and on during conversation. She complains of pain and discomfort to the sacral area. Patient has diarrhea and fecal collection [place]. Antibiotics discontinued today. Patient is on O2 3 L nasal cannula. She still has a pigtail catheter chest tube to the right lateral chest wall and is still putting out significant amount of serous drainage. Chest x-ray on 08/30/18 showing no significant change, still has persistent left perihilar atelectasis or infiltrate. Patient reporting improved appetite. Speech therapy following. Discussed patient's overall well-being. Discussed patient's cardiac function. Patient repeats that she did not follow-up with the resin coater in [place] was going to work with him in regards to heart transplant because she wanted to discuss with her family. According to patient and spouse, the visit was in summer 2017. Patient continues to state, "who is anyone to say that someone`s heart is better than the other". Patient unable to elaborate her statement. Discussed patient's hospital course and complications she has and continues to face. Discussed patient's estimated ejection fraction and how that will continue to affect her well-being. Expressed concern that patient will continue to have more complications as her severe cardiomyopathy continues to progress in its natural course. That being said, inquired from patient what her wishes would be. Patient deferred decision-making to her spouse. Patient`s spouse present during conversation. Introduced hospice philosophy and benefits. Discussed need to continue further discussions in regards to patient' s goals of medical treatment. Expressed to patient's that as disease progresses patient will present with more symptoms. Advised patient and spouse that when they both (patient and spouse) decide to forego any further aggressive treatment, patient would benefit from comfort oriented care only through hospice services. Case discussed with bedside RN. Family/Friend Interactions: See interval note. . Advance Directives Living Will: Never completed Health Care Surrogate: Never completed Durable Power of Commodities Broker: Never completed Health Care Surrogate Name and Number: HCP: Rey Willis [phone] Documented care wishes:: Never completed advanced directives. . Objective Vital Signs: Vital Signs 08/29/18 14:00 08/29/18 14:01 08/29/18 14:31 Temperature Pulse Rate 81 81 79 Blood Pressure 100/72 96/60 L Pulse Oximetry 99 98 98 08/29/18 15:00 08/29/18 15:01 08/29/18 15:15 Temperature Pulse Rate 82 82 85 Blood Pressure 90/66 L 97/78 L Pulse Oximetry 100 99 100 08/29/18 15:44 08/29/18 15:45 08/29/18 16:00 Temperature Pulse Rate 85 85 85 Blood Pressure 109/82 117/84 110/84 Pulse Oximetry 99 100 99 08/29/18 16:15 08/29/18 16:30 08/29/18 17:00 Temperature Pulse Rate 85 86 83 Blood Pressure 98/70 L 104/80 Pulse Oximetry 97 100 94 L 08/29/18 17:01 08/29/18 17:15 08/29/18 17:29 Temperature Pulse Rate 83 90 Blood Pressure 106/80 91/54 L Pulse Oximetry 99 78 L 97 08/29/18 17:31 08/29/18 17:45 08/29/18 18:00 Temperature Pulse Rate 86 83 83 Blood Pressure 113/78 120/78 128/79 Pulse Oximetry 97 100 93 L 08/29/18 18:15 08/29/18 18:30 08/29/18 18:45 Temperature Pulse Rate 84 85 85 Blood Pressure 113/80 105/87 108/83 Pulse Oximetry 99 99 100 08/29/18 19:00 08/29/18 19:15 08/29/18 19:30 Temperature Pulse Rate 82 79 83 Blood Pressure 99/80 L 102/71 103/79 Pulse Oximetry 99 97 99 08/29/18 19:46 08/29/18 20:00 08/29/18 20:15 Temperature Pulse Rate 83 85 85 Blood Pressure 111/77 108/84 119/87 Pulse Oximetry 93 L 90 L 100 08/29/18 20:30 08/29/18 20:45 08/29/18 21:00 Temperature 97.6 F Pulse Rate 84 84 87 Blood Pressure 114/89 109/93 H 113/84 Pulse Oximetry 98 100 95 08/29/18 21:05 08/29/18 21:15 08/29/18 21:30 Temperature Pulse Rate 84 85 85 Blood Pressure 113/84 115/77 115/79 Pulse Oximetry 08/29/18 21:45 08/29/18 22:00 08/29/18 22:01 Temperature Pulse Rate 85 87 87 Blood Pressure 111/84 106/79 Pulse Oximetry 92 L 97 94 L 08/29/18 22:16 08/29/18 22:31 08/29/18 22:45 Temperature Pulse Rate 86 85 81 Blood Pressure 120/86 101/70 87/61 L Pulse Oximetry 100 97 81 L 08/29/18 23:00 08/29/18 23:20 08/29/18 23:35 Temperature Pulse Rate 82 86 86 Blood Pressure 92/64 L 110/83 110/85 Pulse Oximetry 90 L 100 98 08/29/18 23:45 08/30/18 00:00 08/30/18 00:15 Temperature Pulse Rate 83 87 91 H Blood Pressure 116/84 120/92 H 119/88 Pulse Oximetry 08/30/18 00:45 08/30/18 01:00 08/30/18 02:00 Temperature Pulse Rate 87 86 81 Blood Pressure 123/88 107/74 116/84 Pulse Oximetry 55 L 08/30/18 02:01 08/30/18 03:00 08/30/18 03:06 Temperature Pulse Rate 81 85 83 Blood Pressure 116/84 141/94 H 141/94 H Pulse Oximetry 55 L 98 08/30/18 04:00 08/30/18 05:00 08/30/18 05:01 Temperature Pulse Rate 88 92 H 90 Blood Pressure 108/83 Pulse Oximetry 85 L 100 08/30/18 06:00 08/30/18 06:27 08/30/18 07:00 Temperature Pulse Rate 90 86 Blood Pressure 128/79 Pulse Oximetry 100 08/30/18 08:00 08/30/18 09:06 08/30/18 10:00 Temperature 98.4 F Pulse Rate 90 83 Blood Pressure 111/76 Pulse Oximetry 96 100 08/30/18 12:00 Temperature 97.6 F Pulse Rate 86 Blood Pressure 111/79 Pulse Oximetry 100 Intake & Output 08/29/18 08/30/18 08/30/18 18:59 06:59 18:59 Intake Total 2250 / 2250 1400 / 1400 500 / 500 Output Total 525 / 525 1180 / 1180 Balance 1725 / 1725 220 / 220 500 / 500 Weight 70.3 kg Intake: IV 1550 / 1550 1100 / 1100 500 / 500 D5W Inj 1,000 ML @ 75 mls/hr IV 1000 / 1000 1000 / 1000 300 / 300 .CONT .[id number] ANAHI Rx#:[id number] Azithromycin Inj 500 MG In NS 250 / 250 Inj 250 ML @ 250 mls/hr IV.SIG Q24H ANAHI Rx#:[id number] Maxipime Inj 2,000 MG In NS Inj 100 / 100 100 / 100 100 ML @ 200 mls/hr IV.SIG Q24H ANAHI Rx#:[id number] Flagyl 500 MG Inj 100 ML @ 100 200 / 200 100 / 100 100 / 100 mls/hr IV.SIG Q8H ANAHI Rx#: [id number] Oral 700 / 700 300 / 300 Output: Stool 100 / 100 200 / 200 Urine Amount (Catheter) 125 / 125 200 / 200 Female External 125 / 125 200 / 200 Chest Tube Drainage 300 / 300 780 / 780 Right Mid-Axillary Chest 300 / 300 780 / 780 Other: # Incontinent Voids 1 5 Date of Last Bowel Movement 08/29/18 08/30/18 08/30/18 # Incontinent Bowel Movements 2 Physical Exam: CONSTITUTIONAL/GENERAL: This is an adequately nourished patient, in no acute distress. TUBES/LINES/DRAINS: TLC left IJ, femoral A-line, right chest tube, PIV, SCDs, nasal cannula SKIN: No jaundice, rashes, or lesions. Healed scar to left upper chest wall. Normothermic. EYES: Spontaneously opening eyes, tracking. ENT: Nose without bleeding or purulent drainage. CARDIOVASCULAR: Regular rate and rhythm. AICD to right upper chest wall. RESPIRATORY/CHEST: Symmetric, unlabored respirations on vent. Diminished breath sounds to the right side. Right chest tube to suction GASTROINTESTINAL: Abdomen soft, nondistended. No guarding. Bowel sounds present. GENITOURINARY: Without palpable bladder distension. Bradley catheter in place. MUSCULOSKELETAL: No mottling or clubbing. NEUROLOGICAL: Very weak. Dozing on and off during conversation. Oriented to self, place and time and partially situation. Follows simple commands. PSYCHIATRIC: No anxiety/depression. Calm . Diagnostic Tests Laboratory: Laboratory Results - last 72 hr 08/27/18 08/27/18 08/28/18 15:55 17:00 05:00 WBC 10.9 RBC 4.05 Hgb 9.6 L Hct 29.0 L MCV 71.7 L MCH 23.7 L MCHC 33.1 RDW 20.5 H Plt Count 72 L MPV 9.9 Prelim Diff (Auto) Slide review pending Neut % (Auto) 75.2 H Lymph % (Auto) 9.4 [place] % (Auto) 14.7 H Eos % (Auto) 0.1 Baso % (Auto) 0.6 Neut # (Auto) 8.2 H Lymph # (Auto) 1.0 [place] # (Auto) 1.6 H Eos # (Auto) 0.0 Baso # (Auto) 0.1 WBC Differential Manual diff final Seg Neuts % (Manual) 85 H Band Neuts % (Manual) 3 Lymphocytes % (Manual) 8 L Monocytes % (Manual) 3 Eosinophils % (Manual) 1 Abs Neuts (Manual) 9.6 H Nucleated RBCs/100 WBC 12 H Differential Comment . Platelet Estimate Low L Platelet Morphology Enlarged H Basophilic Stippling Moderate H Spherocytes Target Cells 2+ H [place] Bodies Present H Acanthocytes (Spur) 1+ H Keratocytes 1+ H Hematology Comments PT INR APTT Puncture Site Art line Patient Temperature 98.6 O2 Saturation 97 ABG pH 7.50 H ABG pCO2 35 L ABG pO2 161 H ABG HCO3 27 H ABG O2 Content 13.3 ABG Base Excess 3.5 H ABG Methemoglobin 1.3 Brandt Test Present Hemoglobin 9.6 L Carboxyhemoglobin 1.3 O2 Delivery Device Nasal cannula Liter Flow 2.00 Inspired O2 28 Critical Value No Sodium Potassium Chloride Carbon Dioxide Anion Gap BUN Creatinine Estimated GFR Random Glucose Calcium Phosphorus Magnesium Total Bilirubin Direct Bilirubin Indirect Bilirubin AST ALT Alkaline Phosphatase Total Protein Albumin Urine Color Ava Urine Clarity Hazy H Urine pH 5.0 Ur Specific [place] 1.013 Urine Protein 100 H Urine Glucose (UA) Negative Urine Ketones Negative Urine Occult Blood Moderate H Urine Nitrate Negative Urine Bilirubin Negative Urine Urobilinogen Less than 2 Ur Leukocyte Esterase Small H Urine RBC 56 H Urine WBC 27 H Ur Squamous Epith Cells <1 Urine Bacteria Occasional H Urine Yeast Many H Ur Microscopic Review Not Reportable 08/28/18 08/28/18 08/29/18 05:00 05:00 04:53 WBC 10.9 RBC 4.00 Hgb 9.5 L Hct 29.2 L MCV 72.9 L MCH 23.7 L MCHC 32.5 RDW 20.7 H Plt Count 95 L D MPV 10.6 Prelim Diff (Auto) Slide review pending Neut % (Auto) 73.6 H Lymph % (Auto) 13.0 [place] % (Auto) 12.8 H Eos % (Auto) 0.3 Baso % (Auto) 0.3 Neut # (Auto) 8.1 H Lymph # (Auto) 1.4 [place] # (Auto) 1.4 H Eos # (Auto) 0.0 Baso # (Auto) 0.0 WBC Differential Manual diff final Seg Neuts % (Manual) 80 H Band Neuts % (Manual) 1 Lymphocytes % (Manual) 11 Monocytes % (Manual) 7 Eosinophils % (Manual) 1 Abs Neuts (Manual) 8.8 H Nucleated RBCs/100 WBC 5 H Differential Comment . Platelet Estimate Low L Platelet Morphology Enlarged H Basophilic Stippling Spherocytes Occ H Target Cells 2+ H [place] Bodies Acanthocytes (Spur) 1+ H Keratocytes 1+ H Hematology Comments PT 19.3 H INR 1.9 APTT 34.7 H Puncture Site Patient Temperature O2 Saturation ABG pH ABG pCO2 ABG pO2 ABG HCO3 ABG O2 Content ABG Base Excess ABG Methemoglobin Brandt Test Hemoglobin Carboxyhemoglobin O2 Delivery Device Liter Flow Inspired O2 Critical Value Sodium 158 H* Potassium 3.0 L Chloride 115 H Carbon Dioxide 31.3 Anion Gap 12 BUN 149 H Creatinine 2.82 H Estimated GFR 20 L Random Glucose 106 Calcium 9.4 Phosphorus Magnesium Total Bilirubin Direct Bilirubin Indirect Bilirubin AST ALT Alkaline Phosphatase Total Protein Albumin Urine Color Urine Clarity Urine pH Ur Specific [place] Urine Protein Urine Glucose (UA) Urine Ketones Urine Occult Blood Urine Nitrate Urine Bilirubin Urine Urobilinogen Ur Leukocyte Esterase Urine RBC Urine WBC Ur Squamous Epith Cells Urine Bacteria Urine Yeast Ur Microscopic Review 08/29/18 08/29/18 08/29/18 04:53 04:53 04:53 WBC RBC Hgb Hct MCV MCH MCHC RDW Plt Count MPV Prelim Diff (Auto) Neut % (Auto) Lymph % (Auto) [place] % (Auto) Eos % (Auto) Baso % (Auto) Neut # (Auto) Lymph # (Auto) [place] # (Auto) Eos # (Auto) Baso # (Auto) WBC Differential Seg Neuts % (Manual) Band Neuts % (Manual) Lymphocytes % (Manual) Monocytes % (Manual) Eosinophils % (Manual) Abs Neuts (Manual) Nucleated RBCs/100 WBC Differential Comment Platelet Estimate Platelet Morphology Basophilic Stippling Spherocytes Target Cells [place] Bodies Acanthocytes (Spur) Keratocytes Hematology Comments PT 26.5 H INR 2.6 APTT Puncture Site Patient Temperature O2 Saturation ABG pH ABG pCO2 ABG pO2 ABG HCO3 ABG O2 Content ABG Base Excess ABG Methemoglobin Brandt Test Hemoglobin Carboxyhemoglobin O2 Delivery Device Liter Flow Inspired O2 Critical Value Sodium 150 H Potassium 3.5 Chloride 112 H Carbon Dioxide 23.5 Anion Gap 15 BUN 147 H Creatinine 2.87 H Estimated GFR 20 L Random Glucose 120 H Calcium 9.0 Phosphorus Magnesium 2.2 Total Bilirubin Direct Bilirubin Indirect Bilirubin AST ALT Alkaline Phosphatase Total Protein Albumin Urine Color Urine Clarity Urine pH Ur Specific [place] Urine Protein Urine Glucose (UA) Urine Ketones Urine Occult Blood Urine Nitrate Urine Bilirubin Urine Urobilinogen Ur Leukocyte Esterase Urine RBC Urine WBC Ur Squamous Epith Cells Urine Bacteria Urine Yeast Ur Microscopic Review 08/30/18 08/30/18 08/30/18 04:26 04:26 11:23 WBC 11.5 H RBC 4.18 Hgb 9.9 L Hct 30.1 L MCV 72.0 L MCH 23.7 L MCHC 32.9 RDW 20.9 H Plt Count 82 L MPV 10.6 Prelim Diff (Auto) Neut % (Auto) Lymph % (Auto) [place] % (Auto) Eos % (Auto) Baso % (Auto) Neut # (Auto) Lymph # (Auto) [place] # (Auto) Eos # (Auto) Baso # (Auto) WBC Differential Seg Neuts % (Manual) Band Neuts % (Manual) Lymphocytes % (Manual) Monocytes % (Manual) Eosinophils % (Manual) Abs Neuts (Manual) Nucleated RBCs/100 WBC Differential Comment Platelet Estimate Platelet Morphology Basophilic Stippling Spherocytes Target Cells [place] Bodies Acanthocytes (Spur) Keratocytes Hematology Comments PT INR APTT Puncture Site Patient Temperature O2 Saturation ABG pH ABG pCO2 ABG pO2 ABG HCO3 ABG O2 Content ABG Base Excess ABG Methemoglobin Brandt Test Hemoglobin Carboxyhemoglobin O2 Delivery Device Liter Flow Inspired O2 Critical Value Sodium 142 Potassium 3.3 L Chloride 106 Carbon Dioxide 19.3 L Anion Gap 17 H BUN 134 H Creatinine 2.74 H Estimated GFR 21 L Random Glucose 103 Calcium 8.6 Phosphorus 2.9 Magnesium Total Bilirubin 13.4 H 13.5 H Direct Bilirubin 9.8 H Indirect Bilirubin 3.7 H AST 101 H ALT 57 H Alkaline Phosphatase 94 Total Protein 6.1 L Albumin 3.5 Urine Color Urine Clarity Urine pH Ur Specific [place] Urine Protein Urine Glucose (UA) Urine Ketones Urine Occult Blood Urine Nitrate Urine Bilirubin Urine Urobilinogen Ur Leukocyte Esterase Urine RBC Urine WBC Ur Squamous Epith Cells Urine Bacteria Urine Yeast Ur Microscopic Review 08/30/18 11:23 WBC RBC Hgb Hct MCV MCH MCHC RDW Plt Count MPV Prelim Diff (Auto) Neut % (Auto) Lymph % (Auto) [place] % (Auto) Eos % (Auto) Baso % (Auto) Neut # (Auto) Lymph # (Auto) [place] # (Auto) Eos # (Auto) Baso # (Auto) WBC Differential Seg Neuts % (Manual) Band Neuts % (Manual) Lymphocytes % (Manual) Monocytes % (Manual) Eosinophils % (Manual) Abs Neuts (Manual) Nucleated RBCs/100 WBC Differential Comment Platelet Estimate Platelet Morphology Basophilic Stippling Spherocytes Target Cells [place] Bodies Acanthocytes (Spur) Keratocytes Hematology Comments PT 39.5 H D INR 3.9 APTT Puncture Site Patient Temperature O2 Saturation ABG pH ABG pCO2 ABG pO2 ABG HCO3 ABG O2 Content ABG Base Excess ABG Methemoglobin Brandt Test Hemoglobin Carboxyhemoglobin O2 Delivery Device Liter Flow Inspired O2 Critical Value Sodium Potassium Chloride Carbon Dioxide Anion Gap BUN Creatinine Estimated GFR Random Glucose Calcium Phosphorus Magnesium Total Bilirubin Direct Bilirubin Indirect Bilirubin AST ALT Alkaline Phosphatase Total Protein Albumin Urine Color Urine Clarity Urine pH Ur Specific [place] Urine Protein Urine Glucose (UA) Urine Ketones Urine Occult Blood Urine Nitrate Urine Bilirubin Urine Urobilinogen Ur Leukocyte Esterase Urine RBC Urine WBC Ur Squamous Epith Cells Urine Bacteria Urine Yeast Ur Microscopic Review Result Diagrams: 08/30/18 04:26 08/30/18 04:26 Microbiology: Microbiology 08/27/18 12:48 Aerobic Blood Culture - Preliminary Blood - Peripheral No growth in 3 days Anaerobic Blood Culture - Preliminary No growth in 3 days 08/27/18 12:58 Aerobic Blood Culture - Preliminary Blood - Peripheral No growth in 3 days Anaerobic Blood Culture - Preliminary No growth in 3 days 08/27/18 17:00 Urine Culture - Final Catheterized Urine Belkis albicans Imaging: Head CT 08/17/18 00:00 CONCLUSION: 1. No acute intracranial abnormality demonstrated. 2. 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 . Liver Ultrasound 08/29/18 00:00 CONCLUSION: 1. Distended hepatic veins may be related to right heart failure. 2. Diffuse gallbladder wall thickening and pericholecystic fluid but no gallstones and no sonographic Lombardo sign. May be related to hypoalbuminemia. 3. Small amount of ascites. 4. Nonobstructing calculus in the midpole of the right kidney. Chest X-Ray 08/30/18 06:00 CONCLUSION: No significant change Procedures: 08/15/18-placement of left IJ central line 08/16/18-endotracheal intubation after PEA arrest 08/16/18-bedside thoracentesis with removal of 950 mL's of slightly cloudy, yellow colored fluid. 08/16/18-right femoral arterial line placement 08/20/18-right chest tube placement 08/27/18-medically extubated . Assessment and Plan - Disease Oriented Problem List (1) Severe sepsis (2) Cardiogenic shock (3) Systolic heart failure (4) Cardiomyopathy (5) Pulmonary edema (6) Pneumonia (7) Lactic acidemia (8) Supratherapeutic INR (9) Hypertension - Symptom Scale (1) Shortness of breath 0-10 Scale: Unable to quantify Comment: History of congestive heart failure, chronic kidney disease and recent PEA (2) Pain Comment: Patient went into PEA arrest on 08/16/18. Patient has been bedbound during this hospitalization. Complaining of pain to his sacral area. Patient has diarrhea. (3) Debility 0-10 Scale: Unable to quantify Comment: Progressive. Patient has had multiple hospitalizations in the past 12 months. Pertinent Non-Medical Issues: Psychosocial: Patient is originally from [facility]. She moved to [place] in 2014. Patient worked in [employer] to [place] 2007. 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 Patient has been to her current for 43 years. They have 2 adult sons, Rey Hodge who lives locally and another son who lives in [facility]. She has 6 grandchildren. Spiritual: Patient is Anabaptist-open to tool and die repair visits. Contact Centre Supervisor Tim has visited with spouse before. Legal: Never completed advanced directives. Ethical issues impacting care: None identified at this time . Important Contacts: Spouse-Rey Funes [phone] Son-Rey Funes [phone] Daughter-Tracey FunesAjxcf-[phone] Prognosis: Mrs. Funes is a 67-year-old old with a medical history significant for congestive heart failure with an ejection fraction less than 20%, coronary artery disease, ventricular tachycardia with a [employer] ICD, pulmonary embolism , chronic kidney disease stage III, hypertension, cardiovascular accident with residual left-sided weakness in 2017. Patient presented to the emergency room on 08/15/2018 for further evaluation of progressive weakness, shortness of breath, lower extremity edema and productive cough. Patient's hospital course complicated with PEA cardiac arrest, worsening lung function requiring chest tube placement, and worsening renal function despite aggressive diuresis. Given multiple ongoing comorbidities, patient remains at high risk for further complications, deterioration and decline. . Code Status: Full Code Plan: PLAN: Legal decision maker: Patient medically extubated on 08/27/18. She is partially oriented and lacks insight regarding his medical condition at this time. She is . According to [place] statute patient's spouse Rey Funes Sr will serve as patient's healthcare proxy decision-maker. Goals: Goals remain aggressive. Discussed patient's overall well-being. Discussed patient's cardiac function. Patient repeats that she did not follow- up with the resin coater in [place] was going to work with him in regards to heart transplant because she wanted to discuss with her family. According to patient and spouse, the visit was in summer 2017. Patient continues to state, "who is anyone to say that someone`s heart is better than the other". Discussed patient's estimated ejection fraction and how that will continue to affect her well-being. Expressed concern that patient will continue to have more complications as her severe cardiomyopathy continues to progress in its natural course. That being said, inquired from patient what her wishes would be. Patient deferred decision-making to her spouse. Patient`s spouse present during conversation. Introduced hospice philosophy and benefits. Discussed need to continue further discussions in regards to patient's goals of medical treatment. Expressed to patient's that as disease progresses patient will present with more symptoms. Advised patient and spouse that when they both (patient and spouse) decide to forego any further aggressive treatment, patient would benefit from comfort oriented care only through hospice services. CODE STATUS: Full code SYMPTOMS: * Shortness of breath: Patient has history of CHF, and currently has pneumonia and acute on chronic kidney failure. Intubated on 08/16/18 after PEA arrest. Patient has had thoracentesis and has recurrent pleural effusions requiring thoracotomy and placement of right chest tubes. Patient is on antibiotics. Patient medically extubated to O2 3 L nasal cannula on 08/27/18. O2 saturations in the mid to high 90s. * At risk for pain: Patient is currently bedbound and had PEA arrest requiring CPR on 08/16/17 and intubation. Patient has had multiple procedures done including thoracentesis, thoracotomy with chest tube placement, central line placement and arterial line placement which can all be sources of pain. Patient complaining of pain to his sacral area. * Debility. Progressive. Patient has multiple ongoing comorbidities. She has had multiple (x7) hospitalizations in the past year. Patient has been increasingly getting weak due to her failing heart. Patient will most likely continue to deteriorate given her heart condition, she will most likely be not able to effectively participate in physical therapy/rehabilitation. Physical therapy consulted, recommending PT at rehab. Palliative care will continue to follow the patient during hospital course as condition evolves, to assist patient/decision-maker with understanding of their medical conditions, weighing benefits/burdens of treatment options, for clarification of goals of treatment. Additionally will assist with any symptoms of palliative concern Attestation Attestation: To help prompt me to consider important information that might be impacting today's encounter and assessment, information from prior notes written by myself or my colleagues may have been "brought forward" into today's note. My signature on this note, however, is an attestation that I personally performed the exam, history, and/or decision-making noted today, and, unless otherwise indicated, the interactions with patient, family, and staff as well as the review of records all occurred today. I also attest that the listed assessment and stated plan reflect my best clinical judgment today based on the combination of historical information, prior notes, and today's exam/ interactions. When time spent is documented, it refers only to time spent today by the signer, or if indicated, combined time spent today by collaborating physician/nurse practitioner.
--- NOTE | 2018-08-30 15:09 | P.CONGI ---
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 She was found to be fluid overloaded with BNP greater than 4000. She became profoundly hypotensive after diuresis and was admitted to ICU. She was stabilized and weaned off of pressors. She developed PEA cardiac arrest on hospital day 3, she was on intubated and pressors but now off all pressor support. Echo showed severely dilated right and left ventricles with severe biventricular dysfunction, severe MR and TR. She has since been extubated. She has been consulted to our service for concern for elevate liver enzymes and bilirubin. Bilirubin was elevated on admission at 2.8 but has increased to 13.5 today. AST WNL on admission, highest 08/27 at 138. ALT WNL on admission, elevated today at 57. Patient denies abdominal pain, nausea, vomiting, constipation, diarrhea. Nurse reports no evidence of blood per rectum throughout hospitalization. [facility] - History History Provided By: Family Member, Medical Record - Medical History Medical History: Medical History (Last Reviewed 08/28/18 @ 08:51 by Holly Olmstead) Cardiac defibrillator in place Bronchitis CHF (congestive heart failure) CKD (chronic kidney disease), stage III CVA (cerebral vascular accident) Coronary artery disease Fibromyalgia Hypertension Infection Myocardial infarction - Surgical History Surgical History: Surgical History (Last Reviewed 08/28/18 @ 08:51 by Holly Olmstead) History of placement of internal cardiac defibrillator (Resolved) - Family History Family History: Family History (Last Reviewed 08/29/18 @ 14:38 by Blas Nelson) Father CAD (coronary artery disease) Myocardial infarction Brother CAD (coronary artery disease) Myocardial infarction Other Malignant neoplasm - Tobacco History Second Hand Smoke Exposure: No Tobacco Use In Past 30 Days: No Smoking Status: Never smoker - Alcohol History How Often Do You Have a Drink Containing Alcohol: Never - Substance Use History Substance History: No History of Abuse - Travel History Recent Travel in the [facility] Within the Last 8 Weeks: No Recent Travel Out of the Country Within the Last 8 Weeks: No - Immunization History Tetanus Immunization: Unsure Medications and Allergies Active Medications: Active Medications Al Hydroxide/Mg Hydroxide (Milk Of Magnesia Liq) 30 ml PO Q12H PRN PRN Reason: Mild Constipation Bisacodyl (Dulcolax Supp) 10 mg RECTAL DAILY PRN PRN Reason: SEVERE CONSITIPATION Cefepime HCl 2,000 mg/ Sodium (Chloride) 100 mls @ 200 mls/hr IV.SIG Q24H [facility] Stop: 08/31/18 08:00 Last Infusion: 08/30/18 08:50 Dose: Infused Lactulose (Lactulose Liq) 30 ml PO DAILY PRN PRN Reason: SEVERE CONSITIPATION Metoprolol Tartrate (Lopressor) 12.5 mg PO TID [facility] Last Admin: 08/30/18 12:20 Dose: 12.5 mg Miscellaneous (Pill Splitter) 1 each OTHER UNSCH PRN PRN Reason: SEE LABEL COMMENTS Miscellaneous (Pill Splitter) 1 each OTHER UNSCH PRN PRN Reason: SEE LABEL COMMENTS Ondansetron HCl (Zofran Inj) 4 mg IV.PUSH Q6H PRN PRN Reason: NAUSEA OR VOMITING Last Admin: 08/16/18 14:05 Dose: 4 mg Potassium Chloride (K-Dur) 20 meq PO DAILY [facility] Last Admin: 08/30/18 08:21 Dose: 20 meq Promethazine HCl (Phenergan Supp) 25 mg RECTAL Q6H PRN PRN Reason: NAUSEA OR VOMITING Senna/Docusate Sodium (Aleyda-Colace) 1 tab PO BID [facility] Last Admin: 08/30/18 08:21 Dose: Not Given Sennosides (Senokot) 17.2 mg PO Q12H PRN PRN Reason: Moderate Constipation Sodium Chloride (Ns Flush) 2 ml IV.FLUSH BID [facility] Last Admin: 08/30/18 08:21 Dose: 2 ml Sodium Chloride (Ns Flush) 2 ml IV.FLUSH UNSCH PRN PRN Reason: FLUSH AFTER USING IV ACCESS Warfarin Sodium (Coumadin) 1 mg PO DAILY@1600 [facility] Last Admin: 08/29/18 17:39 Dose: 1 mg Allergies Allergy/AdvReac Type Severity Reaction Status Date / Time iodine Allergy Severe sneezing, Verified 08/15/18 08:37 chest tightness potassium iodide Allergy Severe sneezing, Verified 08/15/18 08:37 chest tightness povidone-iodine Allergy Severe sneezing, Verified 08/15/18 08:37 chest tightness sodium iodide Allergy Severe sneezing, Verified 08/15/18 08:37 chest tightness sodium iodide Allergy Severe sneezing, Verified 08/15/18 08:37 chest tightness sulfamethoxazole Allergy Intermediate abdominal Verified 08/15/18 08:37 pain trimethoprim Allergy Intermediate abdominal Verified 08/15/18 08:37 pain hydralazine Allergy Unknown Edema Verified 08/15/18 08:37 Statins Allergy Intermediate Hives Uncoded 08/15/18 08:37 Home Medications Medication Instructions Recorded Confirmed Type bumetanide 2 mg PO DAILY 05/21/18 08/15/18 History carvedilol 25 mg PO BID 05/21/18 08/15/18 History potassium chloride 20 meq PO DAILY 05/21/18 08/15/18 History spironolactone 50 mg PO DAILY 05/21/18 08/15/18 History warfarin 2 mg PO DAILY 08/15/18 08/15/18 History Exam Vital signs: Vital Signs 08/29/18 15:00 08/29/18 15:01 08/29/18 15:15 Temperature Pulse Rate 82 82 85 Blood Pressure 90/66 L 97/78 L Pulse Oximetry 100 99 100 08/29/18 15:44 08/29/18 15:45 08/29/18 16:00 Temperature Pulse Rate 85 85 85 Blood Pressure 109/82 117/84 110/84 Pulse Oximetry 99 100 99 08/29/18 16:15 08/29/18 16:30 08/29/18 17:00 Temperature Pulse Rate 85 86 83 Blood Pressure 98/70 L 104/80 Pulse Oximetry 97 100 94 L 08/29/18 17:01 08/29/18 17:15 08/29/18 17:29 Temperature Pulse Rate 83 90 Blood Pressure 106/80 91/54 L Pulse Oximetry 99 78 L 97 08/29/18 17:31 08/29/18 17:45 08/29/18 18:00 Temperature Pulse Rate 86 83 83 Blood Pressure 113/78 120/78 128/79 Pulse Oximetry 97 100 93 L 08/29/18 18:15 08/29/18 18:30 08/29/18 18:45 Temperature Pulse Rate 84 85 85 Blood Pressure 113/80 105/87 108/83 Pulse Oximetry 99 99 100 08/29/18 19:00 08/29/18 19:15 08/29/18 19:30 Temperature Pulse Rate 82 79 83 Blood Pressure 99/80 L 102/71 103/79 Pulse Oximetry 99 97 99 08/29/18 19:46 08/29/18 20:00 08/29/18 20:15 Temperature Pulse Rate 83 85 85 Blood Pressure 111/77 108/84 119/87 Pulse Oximetry 93 L 90 L 100 08/29/18 20:30 08/29/18 20:45 08/29/18 21:00 Temperature 97.6 F Pulse Rate 84 84 87 Blood Pressure 114/89 109/93 H 113/84 Pulse Oximetry 98 100 95 08/29/18 21:05 08/29/18 21:15 08/29/18 21:30 Temperature Pulse Rate 84 85 85 Blood Pressure 113/84 115/77 115/79 Pulse Oximetry 08/29/18 21:45 08/29/18 22:00 08/29/18 22:01 Temperature Pulse Rate 85 87 87 Blood Pressure 111/84 106/79 Pulse Oximetry 92 L 97 94 L 08/29/18 22:16 08/29/18 22:31 08/29/18 22:45 Temperature Pulse Rate 86 85 81 Blood Pressure 120/86 101/70 87/61 L Pulse Oximetry 100 97 81 L 08/29/18 23:00 08/29/18 23:20 08/29/18 23:35 Temperature Pulse Rate 82 86 86 Blood Pressure 92/64 L 110/83 110/85 Pulse Oximetry 90 L 100 98 08/29/18 23:45 08/30/18 00:00 08/30/18 00:15 Temperature Pulse Rate 83 87 91 H Blood Pressure 116/84 120/92 H 119/88 Pulse Oximetry 08/30/18 00:45 08/30/18 01:00 08/30/18 02:00 Temperature Pulse Rate 87 86 81 Blood Pressure 123/88 107/74 116/84 Pulse Oximetry 55 L 08/30/18 02:01 08/30/18 03:00 08/30/18 03:06 Temperature Pulse Rate 81 85 83 Blood Pressure 116/84 141/94 H 141/94 H Pulse Oximetry 55 L 98 08/30/18 04:00 08/30/18 05:00 08/30/18 05:01 Temperature Pulse Rate 88 92 H 90 Blood Pressure 108/83 Pulse Oximetry 85 L 100 08/30/18 06:00 08/30/18 06:27 08/30/18 07:00 Temperature Pulse Rate 90 86 Blood Pressure 128/79 Pulse Oximetry 100 08/30/18 08:00 08/30/18 09:06 08/30/18 10:00 Temperature 98.4 F Pulse Rate 90 83 Blood Pressure 111/76 Pulse Oximetry 96 100 08/30/18 12:00 08/30/18 14:00 Temperature 97.6 F Pulse Rate 86 87 Blood Pressure 111/79 Pulse Oximetry 100 Intake & Output 08/29/18 08/30/18 08/30/18 18:59 06:59 18:59 Intake Total 2250 / 2250 1400 / 1400 500 / 500 Output Total 525 / 525 1180 / 1180 Balance 1725 / 1725 220 / 220 500 / 500 Weight 70.3 kg Intake: IV 1550 / 1550 1100 / 1100 500 / 500 D5W Inj 1,000 ML @ 75 mls/hr IV 1000 / 1000 1000 / 1000 300 / 300 .CONT .[id number] ANA[facility] Rx#:[id number] Azithromycin Inj 500 MG In NS 250 / 250 Inj 250 ML @ 250 mls/hr IV.SIG Q24H [facility] Rx#:[id number] Maxipime Inj 2,000 MG In NS Inj 100 / 100 100 / 100 100 ML @ 200 mls/hr IV.SIG Q24H [facility] Rx#:[id number] Flagyl 500 MG Inj 100 ML @ 100 200 / 200 100 / 100 100 / 100 mls/hr IV.SIG Q8H [facility] Rx#: [id number] Oral 700 / 700 300 / 300 Output: Stool 100 / 100 200 / 200 Urine Amount (Catheter) 125 / 125 200 / 200 Female External 125 / 125 200 / 200 Chest Tube Drainage 300 / 300 780 / 780 Right Mid-Axillary Chest 300 / 300 780 / 780 Other: # Incontinent Voids 1 5 Date of Last Bowel Movement 08/29/18 08/30/18 08/30/18 # Incontinent Bowel Movements 2 Narrative: Patient lying comfortably in bed. - Constitutional no acute distress - Routine HEENT Exam Head: Present: normocephalic, atraumatic Eye: Present: EOMI. Absent: conjunctival icterus, scleral injection ENT: Present: mucous membranes moist - Routine Respiratory Exam Present: decreased breath sounds, crackles. Absent: accessory muscle use, rales , rhonchi - Routine Cardiovascular Exam Present: RRR, S1, S2 - Routine Abdominal Exam Present: soft, normoactive bowel sounds, organomegaly (Liver enlarged below costal margin). Absent: tenderness, distended, guarding - Detailed Abdominal Exam Palpation/Percussion: Absent: Lombardo's sign - Routine Extremities Exam Present: edema - Routine Neurological Exam Present: alert Results - Labs CBC & Chem 7: 08/30/18 04:26 08/30/18 04:26 Labs: Laboratory Results - last 24 hr 08/30/18 08/30/18 08/30/18 04:26 04:26 11:23 WBC 11.5 H RBC 4.18 Hgb 9.9 L Hct 30.1 L MCV 72.0 L MCH 23.7 L MCHC 32.9 RDW 20.9 H Plt Count 82 L MPV 10.6 Hematology Comments PT INR Sodium 142 Potassium 3.3 L Chloride 106 Carbon Dioxide 19.3 L Anion Gap 17 H BUN 134 H Creatinine 2.74 H Estimated GFR 21 L Random Glucose 103 Calcium 8.6 Phosphorus 2.9 Total Bilirubin 13.4 H 13.5 H Direct Bilirubin 9.8 H Indirect Bilirubin 3.7 H AST 101 H ALT 57 H Alkaline Phosphatase 94 Total Protein 6.1 L Albumin 3.5 08/30/18 11:23 WBC RBC Hgb Hct MCV MCH MCHC RDW Plt Count MPV Hematology Comments PT 39.5 H D INR 3.9 Sodium Potassium Chloride Carbon Dioxide Anion Gap BUN Creatinine Estimated GFR Random Glucose Calcium Phosphorus Total Bilirubin Direct Bilirubin Indirect Bilirubin AST ALT Alkaline Phosphatase Total Protein Albumin - Imaging Impressions Liver Ultrasound 08/29/18 00:00 CONCLUSION: 1. Distended hepatic veins may be related to right heart failure. 2. Diffuse gallbladder wall thickening and pericholecystic fluid but no gallstones and no sonographic Lombardo sign. May be related to hypoalbuminemia. 3. Small amount of ascites. 4. Nonobstructing calculus in the midpole of the right kidney. Chest X-Ray 08/30/18 06:00 CONCLUSION: No significant change Assessment and Plan (1) Acute exacerbation of CHF (congestive heart failure) Status: Acute Code(s): I50.9 - Heart failure, unspecified - Plan 67 year old female with severe congestive heart failure hospitalized for exacerbation and septic shock, extubated and off pressors but remains critical. Differential includes congestive liver vs cholecystitis vs shock liver vs acalculous cholangitis. Liver u/s showed distended hepatic veins, diffuse gallbladder wall thickening with pericholecystic fluid without gallstones and negative murphys sign, cholecystis not likely. Acalculous cholangitis less likely due to absence of abdominal pain, fever, or white count. Transaminitis and hyperbilirubinemia likely due to congestive liver from sever right sided heart failure. Hepatitis panel pending plan - hepatitis panel and ammonia ordered - liver workup ordered - further recommendation to follow Patient seen and discussed with HARPREET Taylor MS4 (1) Acute exacerbation of CHF (congestive heart failure) Qualifiers: Qualified Code(s): I50.23 - Acute on chronic systolic (congestive) heart failure
[2018-08-30 17:22] LABS: Hepatitis A IgM Antibody Nonreactive (Nonreactive); Hepatitits B Surface Antigen Nonreactive (Nonreactive)
[2018-08-30 23:32] LABS: % Iron Saturation 21.1 % (20-50)
[2018-08-31] MEDS: Metoprolol Tartrate 25 MG Tablet PO SCH ×3 (08:33→17:08)
[2018-08-31] MEDS: Senna/Docusate Sodium 8.6/50 MG Tablet PO SCH ×2 (08:34→20:31)
--- NOTE | 2018-08-31 08:36 | P.PNFP ---
Subjective Interval history: Patient was seen at bedside this morning the presence of her . There were no acute events overnight. Patient reports feeling terrific this morning. She denies any shortness of breath or chest pain. She reports feeling overall well and is now remembering the time leading up to her admission. This morning she says she remembers Ceci and New Year's clearly is beginning to recall information prior to admission. Patient denies any subjective fevers, chills, shortness of breath, chest pain, nausea, or vomiting. All questions were answered to the patient's satisfaction. <Phong MiguelDru Holli - 08/31/18 18:14> Results - Labs Result diagrams: 08/31/18 08:29 08/31/18 08:29 <Amelia Phoenix - 08/31/18 21:13> Abnormal lab results 08/30/18 08/31/18 08/31/18 Range/Units 15:00 08:29 08:29 WBC 12.4 H (4.0-11.0) th/mm3 Hgb 10.4 L (11.6-15.3) gm/dL Hct 31.8 L (35.0-46.0) % MCV 73.0 L (80.0-100.0) fL MCH 23.8 L (27.0-34.0) pg RDW 20.9 H (11.6-17.2) % MPV 12.9 H (7.0-11.0) fL Neut % (Auto) 84.3 H (16.0-70.0) % Lymph % (Auto) 5.6 L (9.0-44.0) % [place] % (Auto) 9.5 H (0.0-8.0) % Neut # (Auto) 10.5 H (1.8-7.7) th/mm3 Lymph # (Auto) 0.7 L (1.0-4.8) th/mm3 [place] # (Auto) 1.2 H (0.0-0.9) th/mm3 Seg Neuts % (Manual) 87 H (16-70) % Lymphocytes % (Manual) 3 L (9-44) % Abs Neuts (Manual) 11.3 H (1.8-7.7) th/mm3 Nucleated RBCs/100 WBC 13 H (0-0) /100 WBC Platelet Morphology Enlarged H (Normal) Polychromasia 2.5 H (0.0-1.9) % Target Cells 2+ H (None) Ovalocytes 1+ H (None) [place] Bodies Present H (None) [place] Cells 1+ H (None) Acanthocytes ([place]) 1+ H (None) Keratocytes 1+ H (None) PT (9.8-11.6) sec Carbon Dioxide 18.4 L (21.0-32.0) meq/L Anion Gap 19 H (5-15) meq/L BUN 146 H (7-18) mg/dL Creatinine 2.75 H (0.50-1.00) mg/dL Estimated GFR 21 L (>89) mL/min Random Glucose 69 L (74-106) mg/dL Iron 37 L (50-170) mcg/dL TIBC 175 L (250-450) mcg/dL Total Bilirubin 18.0 H (0.2-1.0) mg/dL Direct Bilirubin 12.7 H (0.0-0.2) mg/dL Indirect Bilirubin 5.3 H (0.0-0.8) mg/dL AST 87 H (15-37) U/L ALT 60 H (10-53) U/L 08/31/18 Range/Units 10:47 WBC (4.0-11.0) th/mm3 Hgb (11.6-15.3) gm/dL Hct (35.0-46.0) % MCV (80.0-100.0) fL MCH (27.0-34.0) pg RDW (11.6-17.2) % MPV (7.0-11.0) fL Neut % (Auto) (16.0-70.0) % Lymph % (Auto) (9.0-44.0) % [place] % (Auto) (0.0-8.0) % Neut # (Auto) (1.8-7.7) th/mm3 Lymph # (Auto) (1.0-4.8) th/mm3 [place] # (Auto) (0.0-0.9) th/mm3 Seg Neuts % (Manual) (16-70) % Lymphocytes % (Manual) (9-44) % Abs Neuts (Manual) (1.8-7.7) th/mm3 Nucleated RBCs/100 WBC (0-0) /100 WBC Platelet Morphology (Normal) Polychromasia (0.0-1.9) % Target Cells (None) Ovalocytes (None) [place] Bodies (None) Bryan Cells (None) Acanthocytes ([place]) (None) Keratocytes (None) PT 34.0 H (9.8-11.6) sec Carbon Dioxide (21.0-32.0) meq/L Anion Gap (5-15) meq/L BUN (7-18) mg/dL Creatinine (0.50-1.00) mg/dL Estimated GFR (>89) mL/min Random Glucose (74-106) mg/dL Iron (50-170) mcg/dL TIBC (250-450) mcg/dL Total Bilirubin (0.2-1.0) mg/dL Direct Bilirubin (0.0-0.2) mg/dL Indirect Bilirubin (0.0-0.8) mg/dL AST (15-37) U/L ALT (10-53) U/L Short CBC 08/31/18 Range/Units 08:29 WBC 12.4 H (4.0-11.0) th/mm3 Hgb 10.4 L (11.6-15.3) gm/dL Hct 31.8 L (35.0-46.0) % Plt Count (150-450) th/mm3 BMP 08/31/18 08:29 Sodium 141 Potassium 3.5 Chloride 104 Carbon Dioxide 18.4 L BUN 146 H Creatinine 2.75 H Calcium 9.6 D Cardiac Enzymes 08/30/18 Range/Units 15:00 Total Creatine Kinase 67 (26-192) U/L Liver Function 08/31/18 Range/Units 08:29 Total Bilirubin 18.0 H (0.2-1.0) mg/dL Direct Bilirubin 12.7 H (0.0-0.2) mg/dL AST 87 H (15-37) U/L ALT 60 H (10-53) U/L Alkaline Phosphatase 100 (45-117) U/L Albumin 4.0 (3.4-5.0) g/dL <Amelia Phoenix - 08/31/18 21:13> Abnormal lab results 08/30/18 08/30/18 08/30/18 Range/Units 11:23 11:23 15:00 PT 39.5 H D (9.8-11.6) sec Iron 37 L (50-170) mcg/dL TIBC 175 L (250-450) mcg/dL Total Bilirubin 13.5 H (0.2-1.0) mg/dL Direct Bilirubin 9.8 H (0.0-0.2) mg/dL Indirect Bilirubin 3.7 H (0.0-0.8) mg/dL Cardiac Enzymes 08/30/18 Range/Units 15:00 Total Creatine Kinase 67 (26-192) U/L Liver Function 08/30/18 Range/Units 11:23 Total Bilirubin 13.5 H (0.2-1.0) mg/dL Direct Bilirubin 9.8 H (0.0-0.2) mg/dL <Dru Jane - 08/31/18 08:36> Physical Exam Vital signs: Vital Signs 08/30/18 22:00 08/31/18 00:00 08/31/18 02:00 Temperature 98.4 F Pulse Rate 86 87 85 Blood Pressure 113/86 Pulse Oximetry 95 08/31/18 04:00 08/31/18 06:00 08/31/18 07:00 Temperature 98.1 F Pulse Rate 85 89 Blood Pressure 112/86 Pulse Oximetry 98 100 08/31/18 08:00 08/31/18 08:18 08/31/18 10:00 Temperature 97.8 F Pulse Rate 90 86 Blood Pressure 106/75 Pulse Oximetry 100 100 08/31/18 12:00 08/31/18 14:00 08/31/18 16:00 Temperature 97.9 F 98.0 F Pulse Rate 87 82 79 Blood Pressure 116/78 101/67 Pulse Oximetry 100 100 08/31/18 17:17 08/31/18 19:00 08/31/18 20:00 Temperature 97.6 F Pulse Rate 78 79 Blood Pressure 95/74 L Pulse Oximetry 100 93 L Intake & Output 08/31/18 08/31/18 09/01/18 06:59 18:59 06:59 Intake Total 30 / 30 580 / 580 Output Total 700 / 700 420 / 420 Balance -670 / -670 160 / 160 Weight 66.7 kg Intake: IV 100 / 100 Maxipime Inj 2,000 MG In NS Inj 100 / 100 100 ML @ 200 mls/hr IV.SIG Q24H [facility] Rx#:[id number] Oral 30 / 30 480 / 480 Output: Stool 200 / 200 50 / 50 Urine Amount (Catheter) 200 / 200 200 / 200 Female External 200 / 200 200 / 200 Chest Tube Drainage 300 / 300 170 / 170 Right Mid-Axillary Chest 300 / 300 170 / 170 Other: # Voids 1 # Incontinent Voids 1 2 Date of Last Bowel Movement 08/31/18 08/31/18 08/31/18 <Amelia Phoenix - 08/31/18 21:13> Vital Signs 08/30/18 09:06 08/30/18 10:00 08/30/18 12:00 Temperature 97.6 F Pulse Rate 83 86 Blood Pressure 111/79 Pulse Oximetry 100 100 08/30/18 14:00 08/30/18 16:00 08/30/18 18:00 Temperature 97.8 F Pulse Rate 87 82 80 Blood Pressure 99/71 L Pulse Oximetry 98 08/30/18 19:00 08/30/18 20:00 08/30/18 22:00 Temperature 98.3 F Pulse Rate 81 86 Blood Pressure 104/65 Pulse Oximetry 100 100 08/31/18 00:00 08/31/18 02:00 08/31/18 04:00 Temperature 98.4 F 98.1 F Pulse Rate 87 85 85 Blood Pressure 113/86 112/86 Pulse Oximetry 95 98 08/31/18 06:00 08/31/18 07:00 08/31/18 08:18 Temperature Pulse Rate 89 Blood Pressure Pulse Oximetry 100 100 Intake & Output 08/30/18 08/31/18 08/31/18 18:59 06:59 18:59 Intake Total 740 / 740 30 / 30 Output Total 620 / 620 700 / 700 Balance 120 / 120 -670 / -670 Weight 66.7 kg Intake: IV 500 / 500 D5W Inj 1,000 ML @ 75 mls/hr IV 300 / 300 .CONT .[id number] ANAHI Rx#:[id number] Maxipime Inj 2,000 MG In NS Inj 100 / 100 100 ML @ 200 mls/hr IV.SIG Q24H ANAHI Rx#:[id number] Flagyl 500 MG Inj 100 ML @ 100 100 / 100 mls/hr IV.SIG Q8H [facility] Rx#: [id number] Oral 240 / 240 30 / 30 Output: Stool 100 / 100 200 / 200 Urine Amount (Catheter) 300 / 300 200 / 200 Female External 300 / 300 200 / 200 Chest Tube Drainage 220 / 220 300 / 300 Right Mid-Axillary Chest 220 / 220 300 / 300 Other: # Incontinent Voids 2 1 Date of Last Bowel Movement 08/30/18 08/31/18 <Dru Jane 08/31/18 08:36> Narrative: GENERAL: Awake, alert, and interactive. Appears more upbeat and optimistic yesterday SKIN: warm and dry. HEAD: Normocephalic. Significant bilateral scleral icterus. CARDIOVASCULAR: Regular rate and rhythm with no murmurs, rubs or gallops. RESPIRATORY: Clear to auscultation bilaterally, chest tube in place on right side. GASTROINTESTINAL: Abdomen soft, non-tender, nondistended. EXTREMITIES: No lower ext edema, NEUROLOGICAL: Responsive, interactive and following commands. Patient alert and oriented x3 with less confusion on today's date. Cranial nerves II through XII appear to be grossly intact. Patient had no facial drooping. Moving all extremities without difficulty. <Dru Jane 08/31/18 08:47> - Urinary Catheter Management Female External Cath placed during this visit: no <LizettAmelia Nathaniel 08/31/18 21:13> no <Dru Jane 08/31/18 18:14> Indwelling Urethral Catheter Cath placed during this visit: no <Amelia Phoenix 08/31/18 21:13> yes, but has since been removed by the nurse <Dru Jane 08/31/18 18:14> Reason for continuing: Decision to DC catheter <Dru Jane Nathaniel 08/31/18 08 :36> Insertion date: 08/16/18 <Dru Jane Nathaniel 08/31/18 08:36> Removal date: 08/28/18 <Dru Jane Nathaniel 08/31/18 08:36> Removal time: 18:00 <Dru Jane Nathaniel 08/31/18 08:36> Assessment and Plan - Assessment (1) Acute exacerbation of CHF (congestive heart failure) Code(s): I50.9 - Heart failure, unspecified Status: Acute (2) Pleural effusion Code(s): J90 - Pleural effusion, not elsewhere classified Status: Acute (3) Severe sepsis Code(s): A41.9 - Sepsis, unspecified organism; R65.20 - Severe sepsis without septic shock Status: Resolved (4) Pneumonia Code(s): J18.9 - Pneumonia, unspecified organism Status: Resolved (5) Acute on chronic kidney failure Code(s): N17.9 - Acute kidney failure, unspecified; N18.9 - Chronic kidney disease, unspecified Status: Acute (6) Hyperbilirubinemia Code(s): E80.6 - Other disorders of bilirubin metabolism Status: Acute (7) Hypertension Code(s): I10 - Essential (primary) hypertension Status: Acute (8) Supratherapeutic INR Code(s): R79.1 - Abnormal coagulation profile Status: Resolved (9) Nutrition, metabolism, and development symptoms Code(s): R63.8 - Other symptoms and signs concerning food and fluid intake Status: Acute <Amelia Phoenix - 08/31/18 21:13> (1) Acute exacerbation of CHF (congestive heart failure) Code(s): I50.9 - Heart failure, unspecified Status: Acute Plan: -BNP 4000 on admission -Bumex discontinued and patient now on Diuril 500mg BID -No lower extremity edema -Echo 08/17: EF 20%, fairly dilated left ventricle, severe mitral regurgitation -Urine output slightly decreased today at 0.68 ml/kg -BNP this morning of > 5000 -CHF likely contributing to hepatic congestion resulting in elevated bilirubin -Cardiology following and agree with current plan -Diuresis with Bumex 0.5 mg/h Per cardiology prognosis is poor. (2) Pleural effusion Code(s): J90 - Pleural effusion, not elsewhere classified Status: Acute Plan: Patient status post right sided thoracentesis (08/16/18) with evacuation of approximately 950 ml of slightly cloudy, yellow colored fluid was removed. -Patient underwent therapeutic right sided chest tube placement with pigtail that drained 950ml of slightly cloudy yellow fluid. -08/16: Pleural fluid showed 1,333 red blood cells with 230 nucleated cells. Fluid consistent with transudative process. Cultures show no growth to date. Plan: -Chest tube draining approx 170ml overnight -Monitor chest tube output -Continue pulmonary care as stated above (3) Severe sepsis Code(s): A41.9 - Sepsis, unspecified organism; R65.20 - Severe sepsis without septic shock Status: Resolved Plan: Community-acquired pneumonia complicated by lower extremity edema in the setting of CHF with an EF of 20%. Patient status post thoracentesis for pleural effusion. -Intubated mechanically ventilated, extubated on 08/27 -Blood cultures (08/15): No growth to date -Pleural fluid Gram stain and cultures no growth to date -WBC count downtrending to 11.5 today Plan: Per Quality Cloth Tester: -Discontinue Flagyl 500 mg every 8h (08/15-08/30) -Cefepime 2000 mg every 8 hours (08/15-) -Discontinue azithromycin 500mg (08/16-08/30) -extubated on 08/27 -New blood, urine, and sputum cultures ordered on 08/27 due to increase in white count urine cx: chi albicans fluconazole 150mg x1 ordered blood cx no growth to date and sputum cx mod normal respiratory bear -Transfer out of ICU today Palliative care following, goals of care remain aggressive. (4) Pneumonia Code(s): J18.9 - Pneumonia, unspecified organism Status: Resolved Plan: Community acquired right-sided pneumonia with lactic acidosis. -DuoNeb every 2 hours as needed -Sputum culture: Moderate growth normal respiratory bear -Respiratory panel uncollected -Continue with antibiotics per critical care team as dictated above -Repeat CXR 08/25: Improved aeration in left lower lobe. -Repeat CXR 08/27:Nasogastric tube sidehole is not across the GE junction ET tube is just above the josh. Compensated cardiomegaly with minimal consolidative changes left base -Repeat CXR 08/29: Mild bibasilar parenchymal opacities, left worse than right, grossly stable. Cardiac contour is unchanged. -Repeat CXR 08/30: Persistent left perihilar atelectasis or infiltrate. Cardiac contours are unchanged, no significant change. -Discontinue azithromycin -Discontinue Flagyl (5) Acute on chronic kidney failure Code(s): N17.9 - Acute kidney failure, unspecified; N18.9 - Chronic kidney disease, unspecified Status: Acute Plan: This patient stage III CKD with elevated creatinine above baseline on admission. Possibly due to decrease intravascular volume in the setting of sepsis. -Creatinine on admission 2.72 from baseline of 1.5. -Creatinine decreased to 2.74 today -Urine output 0.19 ml/kg/hr Plan: -Trend kidney function -Trend I/O -Nephrology following Due to patient's severe cardiomyopathy with EF of <20% she is not a good candidate for dialysis -Begin Bumex 0.5 mg/h (6) Hyperbilirubinemia Code(s): E80.6 - Other disorders of bilirubin metabolism Status: Acute Plan: This patient had a doubling of her total bilirubin over the last several days. On 08/27 bilirubin was 9.1 on 08/30 bilirubin had increased to 13.5. Conjugated/ direct bilirubin 9.8 with an indirect of 3.7 and a normal alkaline phosphatase. Likely due to hepatic congestion secondary to congestive heart failure. Elevation of bilirubin may also be due to decreased albumin and third spacing, is also possible that it is idiopathic. At this time no evidence of hemolysis, biliary obstruction, viral hepatitis, or shock liver. -Hepatic ultrasound from 08/29 showed distended hepatic veins, diffuse gallbladder wall thickening and pericholecystic fluid but no gallstones no sonographic Lombardo signs. Nonobstructing calculus in the midpole the right kidney. -Likely due to hepatic congestion secondary to heart failure -Hepatitis panel negative -Rheum/immune panel pending -Alpha-1 antitrypsin pending -Continue to trend bilirubin (7) Hypertension Code(s): I10 - Essential (primary) hypertension Status: Acute Plan: History of hypertension. PEA required intubation and mech vent. Patient initially required pressors now off. -Lopressor 12.5 TID (8) Supratherapeutic INR Code(s): R79.1 - Abnormal coagulation profile Status: Resolved Plan: History of Afib on warfarin but supratherapeutic on admission. INR now 3.4. -Hold Wafarin 1mg daily -2.5 one-time dose of Phytonadione -monitor INR -Goal INR of 2-3 (9) Nutrition, metabolism, and development symptoms Code(s): R63.8 - Other symptoms and signs concerning food and fluid intake Status: Acute Plan: Fluids: Per salesperson pets and pet supplies Electrolytes: Replete as needed Nutrition: mechanical soft DVT prophylaxis: Supratherapeutic INR, hold Coumadin <Dru Jane - 08/31/18 18:07> - Attending Attestation Patient seen and examined, discussed with resident team. I agree with assessment and management as documented and discussed with me. No new concerns. Continue current care. Appreciate specialists involved in patient's care. <Amelia Phoenix - 08/31/18 21:13> <Dru Jane - Last Filed: 08/31/18 18:07> (1) Acute exacerbation of CHF (congestive heart failure) Qualifiers: Heart failure type: systolic Qualified Code(s): I50.23 - Acute on chronic systolic (congestive) heart failure (4) Pneumonia Qualifiers: Pneumonia type: due to unspecified organism Lung location: unspecified part of lung (5) Acute on chronic kidney failure Qualifiers: Acute renal failure type: unspecified Chronic kidney disease stage: stage 4 ( severe) Qualified Code(s): N17.9 - Acute kidney failure, unspecified; N18.4 - Chronic kidney disease, stage 4 (severe) (7) Hypertension Qualifiers: Hypertension type: unspecified Qualified Code(s): I10 - Essential (primary) hypertension <PreciousdominickAmelia - Last Filed: 08/31/18 21:13> (1) Acute exacerbation of CHF (congestive heart failure) Qualifiers: Heart failure type: systolic Qualified Code(s): I50.23 - Acute on chronic systolic (congestive) heart failure (4) Pneumonia Qualifiers: Pneumonia type: due to unspecified organism Lung location: unspecified part of lung (5) Acute on chronic kidney failure Qualifiers: Acute renal failure type: unspecified Chronic kidney disease stage: stage 4 ( severe) Qualified Code(s): N17.9 - Acute kidney failure, unspecified; N18.4 - Chronic kidney disease, stage 4 (severe) (7) Hypertension Qualifiers: Hypertension type: unspecified Qualified Code(s): I10 - Essential (primary) hypertension <Dru Jane - Last Filed: 08/31/18 18:07> (1) Acute exacerbation of CHF (congestive heart failure) Qualifiers: Heart failure type: systolic Qualified Code(s): I50.23 - Acute on chronic systolic (congestive) heart failure (4) Pneumonia Qualifiers: Pneumonia type: due to unspecified organism Lung location: unspecified part of lung (5) Acute on chronic kidney failure Qualifiers: Acute renal failure type: unspecified Chronic kidney disease stage: stage 4 ( severe) Qualified Code(s): N17.9 - Acute kidney failure, unspecified; N18.4 - Chronic kidney disease, stage 4 (severe) (7) Hypertension Qualifiers: Hypertension type: unspecified Qualified Code(s): I10 - Essential (primary) hypertension <Amelia Phoenix - Last Filed: 08/31/18 21:13> (1) Acute exacerbation of CHF (congestive heart failure) Qualifiers: Heart failure type: systolic Qualified Code(s): I50.23 - Acute on chronic systolic (congestive) heart failure (4) Pneumonia Qualifiers: Pneumonia type: due to unspecified organism Lung location: unspecified part of lung (5) Acute on chronic kidney failure Qualifiers: Acute renal failure type: unspecified Chronic kidney disease stage: stage 4 ( severe) Qualified Code(s): N17.9 - Acute kidney failure, unspecified; N18.4 - Chronic kidney disease, stage 4 (severe) (7) Hypertension Qualifiers: Hypertension type: unspecified Qualified Code(s): I10 - Essential (primary) hypertension
--- NOTE | 2018-08-31 08:58 | P.PNCC ---
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 Patient also had productive cough and frothy sputum, sometimes blood tinged. She also complained about declining urinary output. Initial ER workup showed a normal white count, however BUN was elevated at 80 and creatinine 2.72. BNP was more than 4000. Chest x-ray showed right midlung infiltrate. Patient received Rocephin and azithromycin for community-acquired pneumonia. Patient was admitted to the [facility]. After admission due to the shortness of breath pedal edema and elevated BNP [facility] gave the patient 20 mg IV Lasix but without much urine output. Initially patient had HR of 170's EKG appeared to be SVT and patient converted to NSR with IV Cardizem 25 mg. However patient's blood pressure started to decline. Because of this patient was given IV fluid boluses total 1.5 L had been given. Systolic blood pressure remains at 70s. Lactic acid was checked and was 8.1. With this information critical care medicine was consulted I evaluated the patient emergently. She is lethargic but wakes up easily answers questions. Still profoundly hypotensive despite 1.5 L bolus. I have ordered additional 500 mL bolus and will start Levophed at 5 mcg/min and titrate as needed. It was noted had that her INR is 5.2. Patient may benefit from inotropic agents if blood pressure improves. Antibiotics had been broadened into cefepime and azithromycin, I will also add IV Zyvox. Hold all further diuresis due to septic shock. Patient is very critical at this time 08/16: Patient sitting up in bed. Off Levophed however urine output is minimal only 75 mL urine output since admission. CVP remains elevated at 14-15. I will attempt forced diuresis with Bumex 2 mg x1 and Bumex 0.5 mg/h infusion. If no response may need hemodialysis. Follow-up chest x-ray today is pending. Chest x-ray shows persistent right sided infiltrate and effusion 08/17: Patient developed PEA cardiac arrest yesterday afternoon. No immediate inciting factors could be identified however most likely cardiac. 2D echo ordered pending. CT of the head pending. Currently patient had been weaned off all of the pressors however remains encephalopathy. Creatinine is worsening to 3.8 however urine output has improved approximately 500 ml UO in the last 12 hours. 08/18: Patient remains intubated lightly sedated. On lightening sedation patient wakes up easily following commands. Remains on Bumex infusion approximately 6 L urine output. However chest x-ray showing pulmonary edema. Remains off pressors. Will attempt CPAP trials. CT head did not show any acute finding 08/19: Diuresing well with Bumex infusion achieving negative balance however chest x-ray shows bilateral pulmonary vascular congestion and bilateral at least moderate effusions. These are secondary to decompensated heart failure. EF is less than 20 with severe MR. Creatinine down to 3. Prognosis overall is poor despite milrinone and diuresis patient is not proving adequately. We will consult palliative care to address goals of care 08/20: Patient continues to be in decompensated congestive heart failure. Despite increasing Bumex to 2 mg/h, urine output has decreased to 1.6 L in 24 hours. Chest x-ray continued to show bilateral large pleural effusions. Right- sided pigtail chest tube was placed today with 1 L output initially. Milrinone discontinued due to increasing ventricular irritability. 08/21: Remains sedated, orally intubated on mechanical ventilation. Bumex drip continues. 08/22: Off sedation since 08/18. Intubated and on PSV / CPAP. Not following commands. 08/23: Intubated and on PRVC A/C currently. Had tachycardia during CPAP trials today. She is following commands now. 08/24: Intubated and currently on CPAP / PSV w/ pressures of 10/5. When pressure support was decreased to 7/5 she became tachypneic 08/25: On mechanical ventilation. Awake, follows commands. Significant output from right-sided pigtail catheter. 08/26: Remains on mechanical ventilation. Remains off sedation. Awake, follows commands. Drained about 1 L from right pigtail catheter. Added free water for hypernatremia. BUN remains elevated. 08/27: Mechanically ventilated, off sedation. Awake and following commands. Pigtail catheter drained 150cc today, but is obstructed by thick fluid. 08/28: Extubated yesterday PM, off sedation. Awake, alert. Reports she is comfortable with no CP, SOB, or abdominal pain. Pigtail catheter drained ~190 cc last 24 hours. Off all pressors. Getting D5W IV for hypernatremia. 08/29: Extubated yesterday tolerating well breathing comfortably. Sodium trending down 150 today. Diflucan started by family practice for urine culture with Belkis. Chest tube right-sided still with high output 710 mL in 24 hours 08/30: Complaining of "sore bottom". Discontinue antibiotics today. Currently resting in bed on nasal cannula no acute distress. Right-sided chest tube remains in place. SUBJECTIVE 08/31: A.m. labs pending. Appears comfortable resting in bed. Currently on room air. Right-sided chest tube -520 cc output. Objective Vital Signs / I&O: Vital Signs 08/30/18 09:06 08/30/18 10:00 08/30/18 12:00 Temperature 97.6 F Pulse Rate 83 86 Blood Pressure 111/79 Pulse Oximetry 100 100 08/30/18 14:00 08/30/18 16:00 08/30/18 18:00 Temperature 97.8 F Pulse Rate 87 82 80 Blood Pressure 99/71 L Pulse Oximetry 98 08/30/18 19:00 08/30/18 20:00 08/30/18 22:00 Temperature 98.3 F Pulse Rate 81 86 Blood Pressure 104/65 Pulse Oximetry 100 100 08/31/18 00:00 08/31/18 02:00 08/31/18 04:00 Temperature 98.4 F 98.1 F Pulse Rate 87 85 85 Blood Pressure 113/86 112/86 Pulse Oximetry 95 98 08/31/18 06:00 08/31/18 07:00 08/31/18 08:18 Temperature Pulse Rate 89 Blood Pressure Pulse Oximetry 100 100 Intake & Output 08/30/18 08/31/18 08/31/18 18:59 06:59 18:59 Intake Total 740 / 740 30 / 30 Output Total 620 / 620 700 / 700 Balance 120 / 120 -670 / -670 Weight 66.7 kg Intake: IV 500 / 500 D5W Inj 1,000 ML @ 75 mls/hr IV 300 / 300 .CONT .[id number] [facility] Rx#:[id number] Maxipime Inj 2,000 MG In NS Inj 100 / 100 100 ML @ 200 mls/hr IV.SIG Q24H [facility] Rx#:[id number] Flagyl 500 MG Inj 100 ML @ 100 100 / 100 mls/hr IV.SIG Q8H [facility] Rx#: [id number] Oral 240 / 240 30 / 30 Output: Stool 100 / 100 200 / 200 Urine Amount (Catheter) 300 / 300 200 / 200 Female External 300 / 300 200 / 200 Chest Tube Drainage 220 / 220 300 / 300 Right Mid-Axillary Chest 220 / 220 300 / 300 Other: # Incontinent Voids 2 1 Date of Last Bowel Movement 08/30/18 08/31/18 Result Diagrams: 08/30/18 04:26 08/30/18 04:26 Other Results: Microbiology 08/16/18 13:20 Fluid - Pleural fluid Fungal Smear - Final No fungal elements seen 08/16/18 13:20 Fluid - Pleural fluid Fungal Culture - Preliminary No growth in 2 weeks 08/16/18 13:20 Fluid - Pleural fluid Acid Fast Bacilli Smear - Final No acid fast bacilli seen 08/16/18 13:20 Fluid - Pleural fluid Mycobacterial Culture - Preliminary No growth in 2 weeks 08/27/18 12:48 Blood - Peripheral Aerobic Blood Culture - Preliminary No growth in 3 days 08/27/18 12:48 Blood - Peripheral Anaerobic Blood Culture - Preliminary No growth in 3 days 08/27/18 12:58 Blood - Peripheral Aerobic Blood Culture - Preliminary No growth in 3 days 08/27/18 12:58 Blood - Peripheral Anaerobic Blood Culture - Preliminary No growth in 3 days 08/27/18 17:00 Catheterized Urine Urine Culture - Final Belkis albicans 08/22/18 17:55 Sputum - Endotracheal Gram Stain - Final 08/22/18 17:55 Sputum - Endotracheal Sputum Culture - Final Moderate growth normal respiratory bear 08/20/18 10:40 Fluid - Pleural fluid Gram Stain - Final 08/20/18 10:40 Fluid - Pleural fluid Body Fluid Culture - Final No growth in 72 hours (aerobically and anaerobically ) 08/15/18 12:40 Blood - Peripheral Aerobic Blood Culture - Final No growth in 5 days 08/15/18 12:40 Blood - Peripheral Anaerobic Blood Culture - Final No growth in 5 days 08/15/18 12:51 Blood - Peripheral Aerobic Blood Culture - Final No growth in 5 days 08/15/18 12:51 Blood - Peripheral Anaerobic Blood Culture - Final No growth in 5 days 08/16/18 13:20 Fluid - Pleural fluid Gram Stain - Final 08/16/18 13:20 Fluid - Pleural fluid Body Fluid Culture - Final No growth in 72 hours (aerobically and anaerobically ) Imaging: Chest X-Ray 08/15/18 08:09 CONCLUSION: Consolidation involving the right midlung potentially relating to an infectious infiltrate. Cardiomegaly. Chest X-Ray 08/15/18 15:41 CONCLUSION: Pleural effusion and consolidation right lung base persists. New left IJ central line are in excellent position without evidence of pneumothorax. Chest X-Ray 08/16/18 00:00 CONCLUSION: 1. Improving aeration in the right lung base with resolving airspace disease/ effusion. 2. Left IJ central venous catheter appears to been retracted slightly but still projects over the central venous system. 3. Compensated cardiomegaly. Chest X-Ray 08/16/18 14:58 CONCLUSION: ET tube in good position. Lungs are grossly clear. Head CT 08/17/18 00:00 CONCLUSION: 1. No acute intracranial abnormality demonstrated. 2. 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 . Chest X-Ray 08/17/18 06:00 CONCLUSION: Left basilar density. Chest X-Ray 08/18/18 06:00 CONCLUSION: Cardiomegaly Diffuse increased interstitial markings likely related to edema. Increased density at the bases being worse in the left likely related to bilateral effusions. Some degree of atelectasis or consolidation especially at the left base needs to be considered. Chest X-Ray 08/19/18 06:00 CONCLUSION: Suspected bilateral effusions which appear worse. Increased density seen throughout the lungs likely related to underlying diffuse processes such as edema. Cardiomegaly. Chest X-Ray 08/20/18 00:00 CONCLUSION: Satisfactory tube and line positioning. Improving aeration. Chest X-Ray 08/21/18 06:00 CONCLUSION: Stable chest x-ray with left basilar opacity representing either atelectasis, consolidation, and/or effusion. Right chest tube remains present and no pneumothorax is seen. Chest X-Ray 08/25/18 05:00 CONCLUSION: 1. Stable tubes and lines, as above. 2. Improved aeration in the left lower lung zone. 3. Cardiomegaly with mild positive fluid balance. Chest X-Ray 08/27/18 00:00 CONCLUSION: Nasogastric tube sidehole is not across the GE junction ET tube is just above the josh Compensated cardiomegaly with minimal consolidative changes left base Liver Ultrasound 08/29/18 00:00 CONCLUSION: 1. Distended hepatic veins may be related to right heart failure. 2. Diffuse gallbladder wall thickening and pericholecystic fluid but no gallstones and no sonographic Lombardo sign. May be related to hypoalbuminemia. 3. Small amount of ascites. 4. Nonobstructing calculus in the midpole of the right kidney. Chest X-Ray 08/29/18 05:00 CONCLUSION: Interval extubation. Grossly stable aeration. Chest X-Ray 08/30/18 06:00 CONCLUSION: No significant change Objective Remarks: General: Chronically ill-appearing -[place] female who is resting in bed comfortably on nasal cannula no acute distress HEENT: Normocephalic and atraumatic. MMM. PERRL. Mild right facial droop. Neck: Supple, no JVD Chest: Scar from AICD placement on the left upper chest. AICD palpated in right upper chest. Resp: Air entry slightly diminished in the right mid chest, occasional wet crackles heard. No wheezes or rhonchi. Chest tube in place 520 ml in 24 hours. Rate: RRR. S1, S2 predose 4. GI: Abdomen soft and non-tender to palpation. Priscila shield in place. Skin: No rashes or lesions noted, dry skin Neuro: Awake and alert, following commands, oriented to situation. No new focal deficits. There is persistent mild right facial droop which appears chronic Assessment and Plan - Problem List (1) Severe sepsis Code(s): A41.9 - Sepsis, unspecified organism; R65.20 - Severe sepsis without septic shock Status: Acute (2) Pneumonia Code(s): J18.9 - Pneumonia, unspecified organism Status: Acute (3) Acute exacerbation of CHF (congestive heart failure) Code(s): I50.9 - Heart failure, unspecified Status: Acute (4) Acute on chronic kidney failure Code(s): N17.9 - Acute kidney failure, unspecified; N18.9 - Chronic kidney disease, unspecified Status: Acute (5) Pleural effusion Code(s): J90 - Pleural effusion, not elsewhere classified Status: Acute (6) Hypertension Code(s): I10 - Essential (primary) hypertension Status: Acute (7) Supratherapeutic INR Code(s): R79.1 - Abnormal coagulation profile Status: Resolved (8) Nutrition, metabolism, and development symptoms Code(s): R63.8 - Other symptoms and signs concerning food and fluid intake Status: Acute - Assessment and Plan Plan: NEURO/PSYCH: History of CVA -right-sided weakness/facial droop -Prior metabolic encephalopathy secondary to sepsis, no evidence of significant anoxic injury from PEA arrest, now awake, alert, following commands -No evidence of new CVA at this time. CT 08/17 of the head negative for acute findings old right frontal stroke -Continue to monitor neuro status - no neuro checks needed at this point unless new symptoms arise RESP: Acute respiratory failure with bilateral pleural effusions -Right-sided chest tube in place. Continue. -520 cc past 24 hours. -Status post ultrasound-guided thoracentesis, studies consistent with transudative versus early exudative effusion -Status post right pigtail chest tube placement (08/20) continues to have high output -Intubated and placed on mechanical ventilation during CPR 08/16/18, now extubated as of 08/27 PM -Pigtail still draining significant pleural fluid, will check chest x-ray in a.m. 09/01 CV: Status post in hospital PEA cardiac arrest Decompensated systolic heart failure/acute Severe biventricular heart failure Severe MR/TR Mild troponin elevation SVT -resolved Cardiomyopathy ejection fraction 20% is History of essential hypertension -Following PEA cardiac arrest patient was on epinephrine and Levophed infusion as well as milrinone. Now off all pressor support. -2D echo previously showing EF 20-25%. Repeat 2D echo showed severely dilated right and left ventricle with severe biventricular dysfunction. LV EF less than 20%. Severe MR and TR. -Diuretics currently on hold -vocational rehabilitation consultant following, appreciate assistance -Diltiazem drip stopped 08/23. Received 0.5 mg of digoxin 08/23. Metoprolol tartrate 12.5 mg 3 times daily At home on carvedilol 25 twice daily, spironolactone 50 mg daily bumetanide 2 mg daily GI: Elevated total bilirubin Elevated transaminases - famotidine will be continued -Advance diet as tolerated -Total bilirubin has been increasing, recheck CMP am -Liver ultrasound revealed gallbladder thickening chest cul-de-sac fluid without stones. -Negative hepatitis panel are noted ammonia level was? -Avoid nephrotoxic medications -GI consult for recommendations appreciated likely secondary to right heart failure/congestion. Alpha-1 antitrypsin stool in pending. Hepatitis negative RENAL: Acute on chronic kidney disease Affecting right-sided nephrolithiasis -Monitor renal function closely. Bradley catheter. -Nephrology following: Today discontinued D5W through IV for hypernatremia nephrology does not think she would tolerate dialysis ID: Belkis UTI -Completed 14 days therapy of empiric cefepime, metronidazole and azithromycin -Blood and pleural fluid cultures negative to date. Sputum cx taken 08/22 showed moderate growth of respiratory bear. -WBC improving -Follow repeat cultures, NGTD -Belkis in urine culture, fluconazole given by family practice service HEME: Thrombocytopenia Microcytic anemia Leukocytosis Chronic warfarin use/2 mg daily -Mild stable anemia -Monitor CBC and coags daily -Restarted warfarin on 08/23: 1 mg p.o. daily (INR goal of 2-3). INR 2.6 08/29. Was 3.9 on 08/30 today's a.m. is pending. ENDO/FEN: Acute hypokalemia -Electrolyte replacement as needed. Patient received 20 mEq potassium chloride today. Recheck in a.m. PROPH: -Bilateral lower extremity SCDs/warfarin provides DVT prophylaxis. PO famotidine. LINES: -Utilize peripheral IVs -Left IJ central line placed 08/15/2018, removed -Right femoral arterial line placed 08/16, now removed -Intubation and left femoral central line placement 08/16/2018, now removed -Right pigtail chest tube placed 08/20/2018, still with significant output 1080 cc past 24 hours level 2. We will sign off family medicine. Notified. Please call if questions arise. (2) Pneumonia Qualifiers: Pneumonia type: due to unspecified organism Lung location: unspecified part of lung (3) Acute exacerbation of CHF (congestive heart failure) Qualifiers: Heart failure type: systolic Qualified Code(s): I50.23 - Acute on chronic systolic (congestive) heart failure (4) Acute on chronic kidney failure Qualifiers: Acute renal failure type: unspecified Chronic kidney disease stage: stage 4 ( severe) Qualified Code(s): N17.9 - Acute kidney failure, unspecified; N18.4 - Chronic kidney disease, stage 4 (severe) (6) Hypertension Qualifiers: Hypertension type: unspecified Qualified Code(s): I10 - Essential (primary) hypertension
[2018-08-31 09:12] LABS: Baso # (Auto) 0.1 th/mm3 (0.0-0.2); Baso % (Auto) 0.4 % (0.0-2.0); Eos % (Auto) 0.2 % (0.0-4.0); Hematocrit 31.8 % (35.0-46.0); Hemoglobin 10.4 gm/dL (11.6-15.3); Lymph # (Auto) 0.7 th/mm3 (1.0-4.8); Lymph % (Auto) 5.6 % (9.0-44.0); Mean Corpuscular HGB Conc 32.6 % (32.0-36.0); Mean Corpuscular Hemoglobin 23.8 pg (27.0-34.0); Mean Platelet Volume 12.9 fL (7.0-11.0); Mono # (Auto) 1.2 th/mm3 (0.0-0.9); Mono % (Auto) 9.5 % (0.0-8.0); Neut # (Auto) 10.5 th/mm3 (1.8-7.7); Neut % (Auto) 84.3 % (16.0-70.0); Red Blood Count 4.35 mil/mm3 (4.00-5.30); Red Cell Distribution Width 20.9 % (11.6-17.2); White Blood Count 12.4 th/mm3 (4.0-11.0)
[2018-08-31 09:46] LABS: Calcium 9.6 mg/dL (8.5-10.1); Carbon Dioxide 18.4 meq/L (21.0-32.0); Phosphorus 4.3 mg/dL (2.5-4.9); Potassium 3.5 meq/L (3.5-5.1)
[2018-08-31 10:02] LABS: Lymphocytes 3 % (9-44); Monocytes 6 % (0-8); Tallied Nucleated RBC 13 (0-0)
[2018-08-31 10:03] LABS: Platelet Estimate Normal (Normal); Target Cells 2+
[2018-08-31 10:04] LABS: Acanthocytes 1+; Burr Cells 1+; Ovalocytes 1+
[2018-08-31 10:05] LABS: Howell-Jolly Bodies Present; Polychromasia 2.5 % (0.0-1.9)
[2018-08-31 11:24] LABS: INR 3.4 Ratio
--- NOTE | 2018-08-31 11:31 | P.PNGI ---
Subjective Interval history: Patient laying in bed comfortably in ICU bed Not in any respiratory distress No complaint of nausea and vomiting no abdominal pain Patient did still have diarrhea overnight connected to a rectal tube She will be transferred today to a [facility] floor Physical Exam Vital signs: Vital Signs 08/30/18 12:00 08/30/18 14:00 08/30/18 16:00 Temperature 97.6 F 97.8 F Pulse Rate 86 87 82 Blood Pressure 111/79 99/71 L Pulse Oximetry 100 98 08/30/18 18:00 08/30/18 19:00 08/30/18 20:00 Temperature 98.3 F Pulse Rate 80 81 Blood Pressure 104/65 Pulse Oximetry 100 100 08/30/18 22:00 08/31/18 00:00 08/31/18 02:00 Temperature 98.4 F Pulse Rate 86 87 85 Blood Pressure 113/86 Pulse Oximetry 95 08/31/18 04:00 08/31/18 06:00 08/31/18 07:00 Temperature 98.1 F Pulse Rate 85 89 Blood Pressure 112/86 Pulse Oximetry 98 100 08/31/18 08:00 08/31/18 08:18 08/31/18 10:00 Temperature 97.8 F Pulse Rate 90 86 Blood Pressure 106/75 Pulse Oximetry 100 100 Intake & Output 08/30/18 08/31/18 08/31/18 18:59 06:59 18:59 Intake Total 740 / 740 30 / 30 100 / 100 Output Total 620 / 620 700 / 700 Balance 120 / 120 -670 / -670 100 / 100 Weight 66.7 kg Intake: IV 500 / 500 100 / 100 D5W Inj 1,000 ML @ 75 mls/hr IV 300 / 300 .CONT .[id number] ANAHI Rx#:[id number] Maxipime Inj 2,000 MG In NS Inj 100 / 100 100 / 100 100 ML @ 200 mls/hr IV.SIG Q24H ANAHI Rx#:[id number] Flagyl 500 MG Inj 100 ML @ 100 100 / 100 mls/hr IV.SIG Q8H ANAHI Rx#: [id number] Oral 240 / 240 30 / 30 Output: Stool 100 / 100 200 / 200 Urine Amount (Catheter) 300 / 300 200 / 200 Female External 300 / 300 200 / 200 Chest Tube Drainage 220 / 220 300 / 300 Right Mid-Axillary Chest 220 / 220 300 / 300 Other: # Incontinent Voids 2 1 Date of Last Bowel Movement 08/30/18 08/31/18 08/31/18 - Constitutional no acute distress - Routine HEENT Exam Head: Present: normocephalic, atraumatic - Routine Neck Exam Present: supple - Routine Respiratory Exam Present: decreased breath sounds Comments: Patient has a right pigtail chest tube still putting out a lot of output yellowish liquid attached to wall suction - Routine Cardiovascular Exam Present: RRR, S1, S2 - Routine Abdominal Exam Present: soft, normoactive bowel sounds. Absent: tenderness, distended Comments: Patient is connected to a rectal tube for diarrhea - Routine Extremities Exam Present: pulses intact, normal capillary refill - Routine Skin Exam Present: intact, dry, petechiae, jaundice - Routine Neurological Exam Present: alert, oriented X3 at bedside - Urinary Catheter Management Indwelling Urethral Catheter Cath placed during this visit: yes, but has since been removed by the nurse Reason for continuing: Decision to DC catheter Insertion date: 08/16/18 Removal date: 08/28/18 Removal time: 18:00 Female External Cath placed during this visit: no Results - Labs CBC & Chem 7: 08/31/18 08:29 08/31/18 08:29 Laboratory Results - last 24 hr 08/30/18 08/30/18 08/30/18 11:23 11:23 15:00 WBC RBC Hgb Hct MCV MCH MCHC RDW Plt Count MPV Prelim Diff (Auto) Neut % (Auto) Lymph % (Auto) [place] % (Auto) Eos % (Auto) Baso % (Auto) Neut # (Auto) Lymph # (Auto) [place] # (Auto) Eos # (Auto) Baso # (Auto) WBC Differential Seg Neuts % (Manual) Band Neuts % (Manual) Lymphocytes % (Manual) Monocytes % (Manual) Abs Neuts (Manual) Nucleated RBCs/100 WBC Differential Comment Platelet Estimate Platelet Morphology Polychromasia Target Cells Ovalocytes Borjas-Wink Bodies Bryan Cells Acanthocytes (Spur) Keratocytes PT 39.5 H D INR 3.9 Sodium Potassium Chloride Carbon Dioxide Anion Gap BUN Creatinine Estimated GFR Random Glucose Calcium Phosphorus Iron TIBC % Saturation Ferritin Total Bilirubin 13.5 H Direct Bilirubin 9.8 H Indirect Bilirubin 3.7 H AST ALT Alkaline Phosphatase Ammonia Total Creatine Kinase Total Protein Albumin Hepatitis A IgM Ab Hep Bs Antigen Hep B Core IgM Ab Hep C IgG Ab 08/30/18 08/30/18 08/30/18 15:00 15:00 15:00 WBC RBC Hgb Hct MCV MCH MCHC RDW Plt Count MPV Prelim Diff (Auto) Neut % (Auto) Lymph % (Auto) [place] % (Auto) Eos % (Auto) Baso % (Auto) Neut # (Auto) Lymph # (Auto) [place] # (Auto) Eos # (Auto) Baso # (Auto) WBC Differential Seg Neuts % (Manual) Band Neuts % (Manual) Lymphocytes % (Manual) Monocytes % (Manual) Abs Neuts (Manual) Nucleated RBCs/100 WBC Differential Comment Platelet Estimate Platelet Morphology Polychromasia Target Cells Ovalocytes Borjas-Wink Bodies [place] Cells Acanthocytes (Spur) Keratocytes PT INR Sodium Potassium Chloride Carbon Dioxide Anion Gap BUN Creatinine Estimated GFR Random Glucose Calcium Phosphorus Iron 37 L Cancelled TIBC 175 L Cancelled % Saturation 21.1 Cancelled Ferritin 216 Cancelled Total Bilirubin Direct Bilirubin Indirect Bilirubin AST ALT Alkaline Phosphatase Ammonia Total Creatine Kinase 67 Total Protein Albumin Hepatitis A IgM Ab Nonreactive Hep Bs Antigen Nonreactive Hep B Core IgM Ab Nonreactive Hep C IgG Ab Nonreactive 08/31/18 08/31/18 08:29 08:29 WBC 12.4 H RBC 4.35 Hgb 10.4 L Hct 31.8 L MCV 73.0 L MCH 23.8 L MCHC 32.6 RDW 20.9 H Plt Count MPV 12.9 H Prelim Diff (Auto) Slide review pending Neut % (Auto) 84.3 H Lymph % (Auto) 5.6 L [place] % (Auto) 9.5 H Eos % (Auto) 0.2 Baso % (Auto) 0.4 Neut # (Auto) 10.5 H Lymph # (Auto) 0.7 L [place] # (Auto) 1.2 H Eos # (Auto) 0.0 Baso # (Auto) 0.1 WBC Differential Manual diff final Seg Neuts % (Manual) 87 H Band Neuts % (Manual) 4 Lymphocytes % (Manual) 3 L Monocytes % (Manual) 6 Abs Neuts (Manual) 11.3 H Nucleated RBCs/100 WBC 13 H Differential Comment . Platelet Estimate Normal Platelet Morphology Enlarged H Polychromasia 2.5 H Target Cells 2+ H Ovalocytes 1+ H Borjas-Wink Bodies Present H Bryan Cells 1+ H Acanthocytes (Spur) 1+ H Keratocytes 1+ H PT INR Sodium 141 Potassium 3.5 Chloride 104 Carbon Dioxide 18.4 L Anion Gap 19 H BUN 146 H Creatinine 2.75 H Estimated GFR 21 L Random Glucose 69 L Calcium 9.6 D Phosphorus 4.3 D Iron TIBC % Saturation Ferritin Total Bilirubin 18.0 H Direct Bilirubin 12.7 H Indirect Bilirubin 5.3 H AST 87 H ALT 60 H Alkaline Phosphatase 100 Ammonia Total Creatine Kinase Total Protein 7.0 D Albumin 4.0 Hepatitis A IgM Ab Hep Bs Antigen Hep B Core IgM Ab Hep C IgG Ab Microbiology 08/27/18 12:48 Blood - Peripheral Aerobic Blood Culture - Preliminary No growth in 4 days 08/27/18 12:48 Blood - Peripheral Anaerobic Blood Culture - Preliminary No growth in 4 days 08/27/18 12:58 Blood - Peripheral Aerobic Blood Culture - Preliminary No growth in 4 days 08/27/18 12:58 Blood - Peripheral Anaerobic Blood Culture - Preliminary No growth in 4 days 08/16/18 13:20 Fluid - Pleural fluid Fungal Smear - Final No fungal elements seen 08/16/18 13:20 Fluid - Pleural fluid Fungal Culture - Preliminary No growth in 2 weeks 08/16/18 13:20 Fluid - Pleural fluid Acid Fast Bacilli Smear - Final No acid fast bacilli seen 08/16/18 13:20 Fluid - Pleural fluid Mycobacterial Culture - Preliminary No growth in 2 weeks Assessment and Plan (1) Transaminitis Status: Acute Code(s): R74.0 - Nonspecific elevation of levels of transaminase and lactic acid dehydrogenase [LDH] (2) Anemia in chronic kidney disease Status: Acute Code(s): N18.9 - Chronic kidney disease, unspecified; D63.1 - Anemia in chronic kidney disease (3) Acute exacerbation of CHF (congestive heart failure) Status: Acute Code(s): I50.9 - Heart failure, unspecified (4) Acute worsening of stage 3 chronic kidney disease Status: Acute Code(s): N18.3 - Chronic kidney disease, stage 3 (moderate) (5) Supratherapeutic INR Status: Resolved Code(s): R79.1 - Abnormal coagulation profile (6) Anemia Status: Acute Code(s): D64.9 - Anemia, unspecified (7) Pneumonia Status: Acute Code(s): J18.9 - Pneumonia, unspecified organism (8) Pleural effusion Status: Acute Code(s): J90 - Pleural effusion, not elsewhere classified - Plan 67 year old female with severe congestive heart failure hospitalized for exacerbation and septic shock, extubated and off pressors but remains critical. Differential includes congestive liver vs cholecystitis vs shock liver vs acalculous cholangitis. Liver u/s showed distended hepatic veins, diffuse gallbladder wall thickening with pericholecystic fluid without gallstones and negative murphys sign, cholecystis not likely. Acalculous cholangitis less likely due to absence of abdominal pain, fever, or white count. Transaminitis and hyperbilirubinemia likely due to congestive liver from sever right sided heart failure. Hepatitis panel pending 08/31/2018 Liver ultrasound 08/29/2018 showed distended hepatic veins may be related to right heart failure.Diffuse gallbladder wall thickening and pericholecystic fluid but no gallstones and no sonographic Lombardo sign. May be related to hypoalbuminemia. Small amount of ascites. Nonobstructing calculus in the midpole of the right kidney. 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 -Elevation in her liver enzymes probably due to right-sided heart failure with subsequent congestion of the liver. Since her albumin are down to due to liver injury, her bilirubin is trending up as there is no available albumin for conjugation. Supratherapeutic INR 3.9 Hepatitis panel were negative, liver workup are still pending Plan -Cardiac renal diet -Monitoring labs -Monitor for active bleeding -Avoid hepatotoxins - liver workup pending -Supportive care - further recommendation to follow Patient seen and examined by myself and with HARPREET Taylor and this note is written on his behalf. - Attending Attestation Dr. Espinal (3) Acute exacerbation of CHF (congestive heart failure) Qualifiers: Heart failure type: systolic Qualified Code(s): I50.23 - Acute on chronic systolic (congestive) heart failure (7) Pneumonia Qualifiers: Pneumonia type: due to unspecified organism Lung location: unspecified part of lung
--- NOTE | 2018-08-31 12:09 | P.PNNP ---
Subjective Interval history: Patient was seen eating breakfast, no distress, at bedside. Patient's Creatinine is 2.75, stable. <Rebecca Carltonarielletiffany - Last Filed: 08/31/18 12:04> Physical Exam Vital signs: Vital Signs 08/30/18 14:00 08/30/18 16:00 08/30/18 18:00 Temperature 97.8 F Pulse Rate 87 82 80 Blood Pressure 99/71 L Pulse Oximetry 98 08/30/18 19:00 08/30/18 20:00 08/30/18 22:00 Temperature 98.3 F Pulse Rate 81 86 Blood Pressure 104/65 Pulse Oximetry 100 100 08/31/18 00:00 08/31/18 02:00 08/31/18 04:00 Temperature 98.4 F 98.1 F Pulse Rate 87 85 85 Blood Pressure 113/86 112/86 Pulse Oximetry 95 98 08/31/18 06:00 08/31/18 07:00 08/31/18 08:00 Temperature 97.8 F Pulse Rate 89 90 Blood Pressure 106/75 Pulse Oximetry 100 100 08/31/18 08:18 08/31/18 10:00 Temperature Pulse Rate 86 Blood Pressure Pulse Oximetry 100 Intake & Output 08/30/18 08/31/18 08/31/18 18:59 06:59 18:59 Intake Total 740 / 740 30 / 30 100 / 100 Output Total 620 / 620 700 / 700 Balance 120 / 120 -670 / -670 100 / 100 Weight 66.7 kg Intake: IV 500 / 500 100 / 100 D5W Inj 1,000 ML @ 75 mls/hr IV 300 / 300 .CONT .[id number] ANAHI Rx#:[id number] Maxipime Inj 2,000 MG In NS Inj 100 / 100 100 / 100 100 ML @ 200 mls/hr IV.SIG Q24H ANAHI Rx#:[id number] Flagyl 500 MG Inj 100 ML @ 100 100 / 100 mls/hr IV.SIG Q8H ANAHI Rx#: [id number] Oral 240 / 240 30 / 30 Output: Stool 100 / 100 200 / 200 Urine Amount (Catheter) 300 / 300 200 / 200 Female External 300 / 300 200 / 200 Chest Tube Drainage 220 / 220 300 / 300 Right Mid-Axillary Chest 220 / 220 300 / 300 Other: # Incontinent Voids 2 1 Date of Last Bowel Movement 08/30/18 08/31/18 08/31/18 Narrative: GENERAL: Awake, alert, and interactive. SKIN: warm and dry. HEAD: Normocephalic. CARDIOVASCULAR: Regular rate and rhythm with no murmurs, rubs or gallops. RESPIRATORY: Clear to auscultation bilaterally, chest tube in place on right side. GASTROINTESTINAL: Abdomen soft, non-tender, nondistended. Rectal tube. EXTREMITIES: No lower ext edema. NEUROLOGICAL: Responsive, interactive and following commands. - Urinary Catheter Management Indwelling Urethral Catheter Cath placed during this visit: yes, but has since been removed by the nurse Reason for continuing: Decision to DC catheter Insertion date: 08/16/18 Removal date: 08/28/18 Removal time: 18:00 Female External Cath placed during this visit: no <Travis Carlton - Last Filed: 08/31/18 12:04> Vital signs: Vital Signs 08/30/18 16:00 08/30/18 18:00 08/30/18 19:00 Temperature 97.8 F Pulse Rate 82 80 Blood Pressure 99/71 L Pulse Oximetry 98 100 08/30/18 20:00 08/30/18 22:00 08/31/18 00:00 Temperature 98.3 F 98.4 F Pulse Rate 81 86 87 Blood Pressure 104/65 113/86 Pulse Oximetry 100 95 08/31/18 02:00 08/31/18 04:00 08/31/18 06:00 Temperature 98.1 F Pulse Rate 85 85 89 Blood Pressure 112/86 Pulse Oximetry 98 08/31/18 07:00 08/31/18 08:00 08/31/18 08:18 Temperature 97.8 F Pulse Rate 90 Blood Pressure 106/75 Pulse Oximetry 100 100 100 08/31/18 10:00 08/31/18 12:00 08/31/18 14:00 Temperature 97.9 F Pulse Rate 86 87 82 Blood Pressure 116/78 Pulse Oximetry 100 Intake & Output 08/30/18 08/31/18 08/31/18 18:59 06:59 18:59 Intake Total 740 / 740 30 / 30 100 / 100 Output Total 620 / 620 700 / 700 Balance 120 / 120 -670 / -670 100 / 100 Weight 66.7 kg Intake: IV 500 / 500 100 / 100 D5W Inj 1,000 ML @ 75 mls/hr IV 300 / 300 .CONT .[id number] ANAHI Rx#:[id number] Maxipime Inj 2,000 MG In NS Inj 100 / 100 100 / 100 100 ML @ 200 mls/hr IV.SIG Q24H ANAHI Rx#:[id number] Flagyl 500 MG Inj 100 ML @ 100 100 / 100 mls/hr IV.SIG Q8H ANAHI Rx#: [id number] Oral 240 / 240 30 / 30 Output: Stool 100 / 100 200 / 200 Urine Amount (Catheter) 300 / 300 200 / 200 Female External 300 / 300 200 / 200 Chest Tube Drainage 220 / 220 300 / 300 Right Mid-Axillary Chest 220 / 220 300 / 300 Other: # Incontinent Voids 2 1 Date of Last Bowel Movement 08/30/18 08/31/18 08/31/18 - Urinary Catheter Management Indwelling Urethral Catheter Cath placed during this visit: no Female External Cath placed during this visit: no <Pedro López - Last Filed: 08/31/18 14:41> Assessment and Plan - Assessment (1) Acute kidney injury superimposed on CKD Code(s): N17.9 - Acute kidney failure, unspecified; N18.9 - Chronic kidney disease, unspecified Status: Acute Plan: Patient remains nonoliguric acute renal failure and chronic kidney disease. She has cardiorenal syndrome. 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 I have discussed it with the patient and her family. Creatinine is 2.75, stable. Poor prognosis. (2) Acute exacerbation of congestive heart failure Code(s): I50.9 - Heart failure, unspecified Status: Acute Plan: Cardiology following. She has cardiomyopathy EF 20%. (3) Severe sepsis Code(s): A41.9 - Sepsis, unspecified organism; R65.20 - Severe sepsis without septic shock Status: Acute Plan: Patient on Cefepime, last dose today. (4) Pneumonia Code(s): J18.9 - Pneumonia, unspecified organism Status: Acute Qualifiers: Pneumonia type: due to unspecified organism Lung location: unspecified part of lung Plan: Patient was being treated with IV antibiotics. (5) Hypokalemia Code(s): E87.6 - Hypokalemia Status: Acute Plan: Replace as needed. K is 3.3. <Travis Carlton - Last Filed: 08/31/18 12:04> - Assessment (1) Acute kidney injury superimposed on CKD Code(s): N17.9 - Acute kidney failure, unspecified; N18.9 - Chronic kidney disease, unspecified Status: Acute (2) Acute exacerbation of congestive heart failure Code(s): I50.9 - Heart failure, unspecified Status: Acute (3) Severe sepsis Code(s): A41.9 - Sepsis, unspecified organism; R65.20 - Severe sepsis without septic shock Status: Acute (4) Pneumonia Code(s): J18.9 - Pneumonia, unspecified organism Status: Acute Qualifiers: Pneumonia type: due to unspecified organism Lung location: unspecified part of lung (5) Hypokalemia Code(s): E87.6 - Hypokalemia Status: Acute - Attending Attestation patient was seen and examined. Poor prognosis. BUN is higher. Severe jaundice is noted. GI on the case. Not a candidate for renal replacement therapy. Strongly suggest hospice. <Pedro López - Last Filed: 08/31/18 14:41>
--- NOTE | 2018-08-31 16:01 | P.PNCA ---
Subjective Interval history: Patient is resting in bed at this time. She is more lethargic today after PT. She denies any CP or SOB. Medications and Allergies Allergies Allergy/AdvReac Type Severity Reaction Status Date / Time iodine Allergy Severe sneezing, Verified 08/15/18 08:37 chest tightness potassium iodide Allergy Severe sneezing, Verified 08/15/18 08:37 chest tightness povidone-iodine Allergy Severe sneezing, Verified 08/15/18 08:37 chest tightness sodium iodide Allergy Severe sneezing, Verified 08/15/18 08:37 chest tightness sodium iodide Allergy Severe sneezing, Verified 08/15/18 08:37 chest tightness sulfamethoxazole Allergy Intermediate abdominal Verified 08/15/18 08:37 pain trimethoprim Allergy Intermediate abdominal Verified 08/15/18 08:37 pain hydralazine Allergy Unknown Edema Verified 08/15/18 08:37 Statins Allergy Intermediate Hives Uncoded 08/15/18 08:37 Home Medications Medication Instructions Recorded Confirmed Type bumetanide 2 mg PO DAILY 05/21/18 08/15/18 History carvedilol 25 mg PO BID 05/21/18 08/15/18 History potassium chloride 20 meq PO DAILY 05/21/18 08/15/18 History spironolactone 50 mg PO DAILY 05/21/18 08/15/18 History warfarin 2 mg PO DAILY 08/15/18 08/15/18 History Active Medications: Active Medications Al Hydroxide/Mg Hydroxide (Milk Of Magnesia Liq) 30 ml PO Q12H PRN PRN Reason: Mild Constipation Bisacodyl (Dulcolax Supp) 10 mg RECTAL DAILY PRN PRN Reason: SEVERE CONSITIPATION Lactulose (Lactulose Liq) 30 ml PO DAILY PRN PRN Reason: SEVERE CONSITIPATION Metoprolol Tartrate (Lopressor) 12.5 mg PO TID ANAHI Last Admin: 08/31/18 12:06 Dose: 12.5 mg Miscellaneous (Pill Splitter) 1 each OTHER UNSCH PRN PRN Reason: SEE LABEL COMMENTS Miscellaneous (Pill Splitter) 1 each OTHER UNSCH PRN PRN Reason: SEE LABEL COMMENTS Ondansetron HCl (Zofran Inj) 4 mg IV.PUSH Q6H PRN PRN Reason: NAUSEA OR VOMITING Last Admin: 08/16/18 14:05 Dose: 4 mg Potassium Chloride (K-Dur) 20 meq PO DAILY [facility] Last Admin: 08/31/18 08:33 Dose: 20 meq Promethazine HCl (Phenergan Supp) 25 mg RECTAL Q6H PRN PRN Reason: NAUSEA OR VOMITING Senna/Docusate Sodium (Aleyda-Colace) 1 tab PO BID [facility] Last Admin: 08/31/18 08:34 Dose: Not Given Sennosides (Senokot) 17.2 mg PO Q12H PRN PRN Reason: Moderate Constipation Sodium Chloride (Ns Flush) 2 ml IV.FLUSH BID [facility] Last Admin: 08/31/18 08:34 Dose: 2 ml Sodium Chloride (Ns Flush) 2 ml IV.FLUSH UNSCH PRN PRN Reason: FLUSH AFTER USING IV ACCESS Warfarin Sodium (Coumadin) 1 mg PO DAILY@1600 [facility] Last Admin: 08/29/18 17:39 Dose: 1 mg Physical Exam Vital signs: Vital Signs 08/30/18 16:00 08/30/18 18:00 08/30/18 19:00 Temperature 97.8 F Pulse Rate 82 80 Blood Pressure 99/71 L Pulse Oximetry 98 100 08/30/18 20:00 08/30/18 22:00 08/31/18 00:00 Temperature 98.3 F 98.4 F Pulse Rate 81 86 87 Blood Pressure 104/65 113/86 Pulse Oximetry 100 95 08/31/18 02:00 08/31/18 04:00 08/31/18 06:00 Temperature 98.1 F Pulse Rate 85 85 89 Blood Pressure 112/86 Pulse Oximetry 98 08/31/18 07:00 08/31/18 08:00 08/31/18 08:18 Temperature 97.8 F Pulse Rate 90 Blood Pressure 106/75 Pulse Oximetry 100 100 100 08/31/18 10:00 08/31/18 12:00 08/31/18 14:00 Temperature 97.9 F Pulse Rate 86 87 82 Blood Pressure 116/78 Pulse Oximetry 100 Intake & Output 08/30/18 08/31/18 08/31/18 18:59 06:59 18:59 Intake Total 740 / 740 30 / 30 100 / 100 Output Total 620 / 620 700 / 700 Balance 120 / 120 -670 / -670 100 / 100 Weight 66.7 kg Intake: IV 500 / 500 100 / 100 D5W Inj 1,000 ML @ 75 mls/hr IV 300 / 300 .CONT .[id number] ANAHI Rx#:[id number] Maxipime Inj 2,000 MG In NS Inj 100 / 100 100 / 100 100 ML @ 200 mls/hr IV.SIG Q24H ANAHI Rx#:[id number] Flagyl 500 MG Inj 100 ML @ 100 100 / 100 mls/hr IV.SIG Q8H ANAHI Rx#: [id number] Oral 240 / 240 30 / 30 Output: Stool 100 / 100 200 / 200 Urine Amount (Catheter) 300 / 300 200 / 200 Female External 300 / 300 200 / 200 Chest Tube Drainage 220 / 220 300 / 300 Right Mid-Axillary Chest 220 / 220 300 / 300 Other: # Incontinent Voids 2 1 Date of Last Bowel Movement 08/30/18 08/31/18 08/31/18 - Constitutional no acute distress - Routine HEENT Exam Head: Present: normocephalic Eye: Present: PERRL ENT: Present: mucous membranes moist - Routine Neck Exam Present: full ROM - Routine Respiratory Exam Present: CTA bilaterally - Routine Cardiovascular Exam Present: S1, S2, murmur. Absent: gallop, rubs - Routine Abdominal Exam Present: normoactive bowel sounds - Routine Extremities Exam Present: edema, full ROM, pulses intact, normal capillary refill. Absent: cyanosis, clubbing Comments: trace - Routine Skin Exam Present: intact - Routine Neurological Exam Present: oriented X3 slightly lethargic today after PT. - Detailed Neurological Exam: Coma Scale Eye Opening: Spontaneous Verbal Response: Oriented Motor Response: Obey commands [place] Coma Scale Total: 15 - Routine Psychiatric Exam Present: depressed - Urinary Catheter Management Indwelling Urethral Catheter Cath placed during this visit: yes, but has since been removed by the nurse Reason for continuing: Decision to DC catheter Insertion date: 08/16/18 Removal date: 08/28/18 Removal time: 18:00 Female External Cath placed during this visit: no Results 08/31/18 08:29 08/31/18 08:29 Cardiac Enzymes 08/30/18 08/31/18 Range/Units 04:26 08:29 AST 101 H 87 H (15-37) U/L Coagulation 08/30/18 08/31/18 Range/Units 11:23 10:47 PT 39.5 H D 34.0 H (9.8-11.6) sec CBC 08/30/18 08/31/18 Range/Units 04:26 08:29 WBC 11.5 H 12.4 H (4.0-11.0) th/mm3 RBC 4.18 4.35 (4.00-5.30) mil/mm3 Hgb 9.9 L 10.4 L (11.6-15.3) gm/dL Hct 30.1 L 31.8 L (35.0-46.0) % Plt Count 82 L (150-450) th/mm3 Neut # (Auto) 10.5 H (1.8-7.7) th/mm3 Lymph # (Auto) 0.7 L (1.0-4.8) th/mm3 [place] # (Auto) 1.2 H (0.0-0.9) th/mm3 Eos # (Auto) 0.0 (0.0-0.4) th/mm3 Baso # (Auto) 0.1 (0.0-0.2) th/mm3 Comprehensive Metabolic Panel 08/30/18 08/30/18 08/31/18 Range/Units 04:26 11:23 08:29 Sodium 142 141 (136-145) meq/L Potassium 3.3 L 3.5 (3.5-5.1) meq/L Chloride 106 104 (98-107) meq/L Carbon Dioxide 19.3 L 18.4 L (21.0-32.0) meq/L BUN 134 H 146 H (7-18) mg/dL Creatinine 2.74 H 2.75 H (0.50-1.00) mg/dL Calcium 8.6 9.6 D (8.5-10.1) mg/dL Direct Bilirubin 9.8 H 12.7 H (0.0-0.2) mg/dL Indirect Bilirubin 3.7 H 5.3 H (0.0-0.8) mg/dL AST 101 H 87 H (15-37) U/L ALT 57 H 60 H (10-53) U/L Alkaline Phosphatase 94 100 (45-117) U/L Total Protein 6.1 L 7.0 D (6.4-8.2) g/dL Albumin 3.5 4.0 (3.4-5.0) g/dL Intake and Output 08/31/18 08/31/18 08/31/18 06:59 14:59 22:59 Intake Total 30 / 30 100 / 100 Output Total 700 / 700 Balance -670 / -670 100 / 100 Intake: IV 100 / 100 Maxipime Inj 2,000 MG In NS Inj 100 / 100 100 ML @ 200 mls/hr IV.SIG Q24H ANAHI Rx#:[id number] Oral 30 / 30 Output: Stool 200 / 200 Urine Amount (Catheter) 200 / 200 Female External 200 / 200 Chest Tube Drainage 300 / 300 Right Mid-Axillary Chest 300 / 300 Other: # Incontinent Voids 1 Date of Last Bowel Movement 08/31/18 08/31/18 Weight 66.7 kg - Imaging and Cardiology Imaging: Impressions Liver Ultrasound 08/29/18 00:00 CONCLUSION: 1. Distended hepatic veins may be related to right heart failure. 2. Diffuse gallbladder wall thickening and pericholecystic fluid but no gallstones and no sonographic Lombardo sign. May be related to hypoalbuminemia. 3. Small amount of ascites. 4. Nonobstructing calculus in the midpole of the right kidney. Chest X-Ray 08/30/18 06:00 CONCLUSION: No significant change Assessment and Plan - Assessment (1) Acute exacerbation of CHF (congestive heart failure) Code(s): I50.9 - Heart failure, unspecified Status: Acute (2) Severe sepsis Code(s): A41.9 - Sepsis, unspecified organism; R65.20 - Severe sepsis without septic shock Status: Acute (3) Fluid overload Code(s): E87.70 - Fluid overload, unspecified Status: Acute (4) Acute worsening of stage 3 chronic kidney disease Code(s): N18.3 - Chronic kidney disease, stage 3 (moderate) Status: Acute (5) Anemia Code(s): D64.9 - Anemia, unspecified Status: Acute (6) Pacemaker Code(s): Z95.0 - Presence of cardiac pacemaker Status: Acute (7) Supraventricular tachycardia Code(s): I47.1 - Supraventricular tachycardia Status: Acute (8) Pneumonia Code(s): J18.9 - Pneumonia, unspecified organism Status: Acute (9) Cardiomyopathy Code(s): I42.9 - Cardiomyopathy, unspecified Status: Acute (10) Pulmonary edema Code(s): J81.1 - Chronic pulmonary edema Status: Acute (11) Lactic acidemia Code(s): E87.2 - Acidosis Status: Acute (12) Hypertension Code(s): I10 - Essential (primary) hypertension Status: Acute (13) Cardiogenic shock Code(s): R57.0 - Cardiogenic shock Status: Acute - Plan There are no new cardiac issues noted at this time. Remains quite lethargic. We will continue with the current cardiac treatment plan. Renal function remains unchanged since yesterday, nephrology evaluation and treatment in progress. Discussed with her and her the importance of increasing her nutritional intake and increasing her activity level. Continue to increase her activity as she tolerates, PT. We will continue to monitor the patient during her hospitalization and follow up in our office after discharge from the hospital. The patient was seen and evaluated by Dr. Mae who participated in care, management and decision making. - Attending Attestation Patient seen and examined. I reviewed and agree with the evaluation and plan as presented. Continue tx for CHF. Monitor in the ICU. Slow progress. Increase activity. D/w pt and . (1) Acute exacerbation of CHF (congestive heart failure) Qualifiers: Qualified Code(s): I50.23 - Acute on chronic systolic (congestive) heart failure (3) Fluid overload Qualifiers: Qualified Code(s): E87.70 - Fluid overload, unspecified (12) Hypertension Qualifiers: Qualified Code(s): I10 - Essential (primary) hypertension
--- NOTE | 2018-08-31 17:29 | P.PNPAL ---
Reason for Visit Reason for visit: a. To assist with evaluation and management of symptoms including: Shortness of breath, pain, debility b. To assist medical decision maker(s) with: better understanding of current medical conditions; weighing benefits/burdens of medical treatment options; making medical treatment decisions. Subjective Subjective/Interval History: Follow-up medically necessary for symptom management and family support. Patient remains in MICU. Patient examined in the presence of her Rey Mckenna Sr. Patient is very lethargic, short of breath with conversation and very weak. She is oriented to self, place and situation. Patient complaining of discomfort. Bedside RN assisted patient with repositioning. Patient obtains dosing some pain to her coccyx area. GI consulted on 08/30/18 for evaluation and management of a patient with transaminitis and hyperbilirubinemia, recommended hepatitis panel and a liver workup. Hepatic panel on 08/30/18 nonreactive. Laboratory workup today revealing WBC 12.4, hemoglobin 10.4, hematocrit 31.8, PT 34.0, INR 3.4, sodium 3.5, BUN/creatinine 146/2.75, total bilirubin 18.0, AST 87, ALT 60, total protein 7.0, albumin 4.0. Renal function not showing any improvement. Per nephrology notes, "patient is not a candidate for renal replacement therapy. Strongly suggest hospice". Patient tearfully explained how she is not getting any better and repeated medical updates she has been provided by medical team members. Patient understands that a cardiac function is very poor, and her renal function is failing as well as her hepatic function. Patient tearfully stating that she wants to go home now and maybe she can have "time to meditate about all this and if it`s God`s will for her to go, at least that will happen while she is surrounded by her family at home". Patient is grieving and apologizes for crying and says, "I`m in disbelief and is this how my life is going to end". Provided empathetic listening as patient continued to tearfully grieve. Readdressed code status and patient elected DNR though she repeatedly deferred the question to her . Patient`s agreeable with changing patient` s code status to DNR and consulting hospice. Discussed briefly the option of going to a hospice care center first for symptom management prior to going home. Patient expressed that it would be her wish to go home straight from the hospital not the hospice care center. Offered to call patient's son or daughter in law to notify them of patient's decisions. Patient declined, she would like to personally talk to her son alone. With patient`s and her spouse`s permission, hospice consult placed. Case discussed with bedside RN and Dr. Marquez. . Family/Friend Interactions: See interval note. . Advance Directives Living Will: Never completed Health Care Surrogate: Never completed Durable Power of Nutrition Teacher: Never completed Health Care Surrogate Name and Number: HCP: Rey Funes [phone] Documented care wishes:: Never completed advanced directives. . Significant change in goals:: Patient no longer wants to pursue aggressive treatment, she has decided to transition to comfort oriented care only through hospice services. Patient also changed his CODE STATUS to DNR today. . Objective Vital Signs: Vital Signs 08/30/18 18:00 08/30/18 19:00 08/30/18 20:00 Temperature 98.3 F Pulse Rate 80 81 Blood Pressure 104/65 Pulse Oximetry 100 100 08/30/18 22:00 08/31/18 00:00 08/31/18 02:00 Temperature 98.4 F Pulse Rate 86 87 85 Blood Pressure 113/86 Pulse Oximetry 95 08/31/18 04:00 08/31/18 06:00 08/31/18 07:00 Temperature 98.1 F Pulse Rate 85 89 Blood Pressure 112/86 Pulse Oximetry 98 100 08/31/18 08:00 08/31/18 08:18 08/31/18 10:00 Temperature 97.8 F Pulse Rate 90 86 Blood Pressure 106/75 Pulse Oximetry 100 100 08/31/18 12:00 08/31/18 14:00 Temperature 97.9 F Pulse Rate 87 82 Blood Pressure 116/78 Pulse Oximetry 100 Intake & Output 08/30/18 08/31/18 08/31/18 18:59 06:59 18:59 Intake Total 740 / 740 30 / 30 100 / 100 Output Total 620 / 620 700 / 700 Balance 120 / 120 -670 / -670 100 / 100 Weight 66.7 kg Intake: IV 500 / 500 100 / 100 D5W Inj 1,000 ML @ 75 mls/hr IV 300 / 300 .CONT .[id number] ANAHI Rx#:[id number] Maxipime Inj 2,000 MG In NS Inj 100 / 100 100 / 100 100 ML @ 200 mls/hr IV.SIG Q24H ANAHI Rx#:[id number] Flagyl 500 MG Inj 100 ML @ 100 100 / 100 mls/hr IV.SIG Q8H ANAHI Rx#: [id number] Oral 240 / 240 30 / 30 Output: Stool 100 / 100 200 / 200 Urine Amount (Catheter) 300 / 300 200 / 200 Female External 300 / 300 200 / 200 Chest Tube Drainage 220 / 220 300 / 300 Right Mid-Axillary Chest 220 / 220 300 / 300 Other: # Incontinent Voids 2 1 Date of Last Bowel Movement 08/30/18 08/31/18 08/31/18 Physical Exam: CONSTITUTIONAL/GENERAL: This is an adequately nourished patient, in no acute distress. TUBES/LINES/DRAINS: right chest tube, PIV, SCDs, Digni shield SKIN: Slightly jaundiced, rashes, or lesions. Healed scar to left upper chest wall. Normothermic. EYES: Eyes open. Scleral icterus. No injection or drainage. Fundi not examined ENT: Nose without bleeding or purulent drainage. CARDIOVASCULAR: Regular rate and rhythm. AICD to right upper chest wall. RESPIRATORY/CHEST: Symmetric, unlabored respirations. Diminished breath sounds to the right side. Right chest tube to suction GASTROINTESTINAL: Abdomen soft, nondistended. No guarding. Bowel sounds present. GENITOURINARY: Without palpable bladder distension. Bradley catheter in place. MUSCULOSKELETAL: No mottling or clubbing. NEUROLOGICAL: Lethargic, oriented to self, place and situation. Very weak. Follows simple commands. PSYCHIATRIC: No anxiety/depression. Calm . Diagnostic Tests Laboratory: Laboratory Results - last 72 hr 08/29/18 08/29/18 08/29/18 04:53 04:53 04:53 WBC 10.9 RBC 4.00 Hgb 9.5 L Hct 29.2 L MCV 72.9 L MCH 23.7 L MCHC 32.5 RDW 20.7 H Plt Count 95 L D MPV 10.6 Prelim Diff (Auto) Slide review pending Neut % (Auto) 73.6 H Lymph % (Auto) 13.0 Pope % (Auto) 12.8 H Eos % (Auto) 0.3 Baso % (Auto) 0.3 Neut # (Auto) 8.1 H Lymph # (Auto) 1.4 Pope # (Auto) 1.4 H Eos # (Auto) 0.0 Baso # (Auto) 0.0 WBC Differential Manual diff final Seg Neuts % (Manual) 80 H Band Neuts % (Manual) 1 Lymphocytes % (Manual) 11 Monocytes % (Manual) 7 Eosinophils % (Manual) 1 Abs Neuts (Manual) 8.8 H Nucleated RBCs/100 WBC 5 H Differential Comment . Platelet Estimate Low L Platelet Morphology Enlarged H Polychromasia Spherocytes Occ H Target Cells 2+ H Ovalocytes Borjas-[place] Bodies York Cells Acanthocytes (Spur) 1+ H Keratocytes 1+ H Hematology Comments PT 26.5 H INR 2.6 Sodium 150 H Potassium 3.5 Chloride 112 H Carbon Dioxide 23.5 Anion Gap 15 BUN 147 H Creatinine 2.87 H Estimated GFR 20 L Random Glucose 120 H Calcium 9.0 Phosphorus Magnesium Iron TIBC % Saturation Ferritin Total Bilirubin Direct Bilirubin Indirect Bilirubin AST ALT Alkaline Phosphatase Ammonia Total Creatine Kinase Total Protein Albumin Hepatitis A IgM Ab Hep Bs Antigen Hep B Core IgM Ab Hep C IgG Ab 08/29/18 08/30/18 08/30/18 04:53 04:26 04:26 WBC 11.5 H RBC 4.18 Hgb 9.9 L Hct 30.1 L MCV 72.0 L MCH 23.7 L MCHC 32.9 RDW 20.9 H Plt Count 82 L MPV 10.6 Prelim Diff (Auto) Neut % (Auto) Lymph % (Auto) Pope % (Auto) Eos % (Auto) Baso % (Auto) Neut # (Auto) Lymph # (Auto) Pope # (Auto) Eos # (Auto) Baso # (Auto) WBC Differential Seg Neuts % (Manual) Band Neuts % (Manual) Lymphocytes % (Manual) Monocytes % (Manual) Eosinophils % (Manual) Abs Neuts (Manual) Nucleated RBCs/100 WBC Differential Comment Platelet Estimate Platelet Morphology Polychromasia Spherocytes Target Cells Ovalocytes Borjas-[place] Bodies Bryan Cells Acanthocytes (Spur) Keratocytes Hematology Comments PT INR Sodium 142 Potassium 3.3 L Chloride 106 Carbon Dioxide 19.3 L Anion Gap 17 H BUN 134 H Creatinine 2.74 H Estimated GFR 21 L Random Glucose 103 Calcium 8.6 Phosphorus 2.9 Magnesium 2.2 Iron TIBC % Saturation Ferritin Total Bilirubin 13.4 H Direct Bilirubin Indirect Bilirubin AST 101 H ALT 57 H Alkaline Phosphatase 94 Ammonia Total Creatine Kinase Total Protein 6.1 L Albumin 3.5 Hepatitis A IgM Ab Hep Bs Antigen Hep B Core IgM Ab Hep C IgG Ab 08/30/18 08/30/18 08/30/18 11:23 11:23 15:00 WBC RBC Hgb Hct MCV MCH MCHC RDW Plt Count MPV Prelim Diff (Auto) Neut % (Auto) Lymph % (Auto) Pope % (Auto) Eos % (Auto) Baso % (Auto) Neut # (Auto) Lymph # (Auto) Pope # (Auto) Eos # (Auto) Baso # (Auto) WBC Differential Seg Neuts % (Manual) Band Neuts % (Manual) Lymphocytes % (Manual) Monocytes % (Manual) Eosinophils % (Manual) Abs Neuts (Manual) Nucleated RBCs/100 WBC Differential Comment Platelet Estimate Platelet Morphology Polychromasia Spherocytes Target Cells Ovalocytes Borjas-[place] Bodies Bryan Cells Acanthocytes (Spur) Keratocytes Hematology Comments PT 39.5 H D INR 3.9 Sodium Potassium Chloride Carbon Dioxide Anion Gap BUN Creatinine Estimated GFR Random Glucose Calcium Phosphorus Magnesium Iron TIBC % Saturation Ferritin Total Bilirubin 13.5 H Direct Bilirubin 9.8 H Indirect Bilirubin 3.7 H AST ALT Alkaline Phosphatase Ammonia Total Creatine Kinase Total Protein Albumin Hepatitis A IgM Ab Hep Bs Antigen Hep B Core IgM Ab Hep C IgG Ab 08/30/18 08/30/18 08/30/18 15:00 15:00 15:00 WBC RBC Hgb Hct MCV MCH MCHC RDW Plt Count MPV Prelim Diff (Auto) Neut % (Auto) Lymph % (Auto) Pope % (Auto) Eos % (Auto) Baso % (Auto) Neut # (Auto) Lymph # (Auto) Pope # (Auto) Eos # (Auto) Baso # (Auto) WBC Differential Seg Neuts % (Manual) Band Neuts % (Manual) Lymphocytes % (Manual) Monocytes % (Manual) Eosinophils % (Manual) Abs Neuts (Manual) Nucleated RBCs/100 WBC Differential Comment Platelet Estimate Platelet Morphology Polychromasia Spherocytes Target Cells Ovalocytes Borjas-[place] Bodies York Cells Acanthocytes (Spur) Keratocytes Hematology Comments PT INR Sodium Potassium Chloride Carbon Dioxide Anion Gap BUN Creatinine Estimated GFR Random Glucose Calcium Phosphorus Magnesium Iron 37 L Cancelled TIBC 175 L Cancelled % Saturation 21.1 Cancelled Ferritin 216 Cancelled Total Bilirubin Direct Bilirubin Indirect Bilirubin AST ALT Alkaline Phosphatase Ammonia Total Creatine Kinase 67 Total Protein Albumin Hepatitis A IgM Ab Nonreactive Hep Bs Antigen Nonreactive Hep B Core IgM Ab Nonreactive Hep C IgG Ab Nonreactive 08/31/18 08/31/18 08/31/18 08:29 08:29 10:47 WBC 12.4 H RBC 4.35 Hgb 10.4 L Hct 31.8 L MCV 73.0 L MCH 23.8 L MCHC 32.6 RDW 20.9 H Plt Count MPV 12.9 H Prelim Diff (Auto) Slide review pending Neut % (Auto) 84.3 H Lymph % (Auto) 5.6 L Pope % (Auto) 9.5 H Eos % (Auto) 0.2 Baso % (Auto) 0.4 Neut # (Auto) 10.5 H Lymph # (Auto) 0.7 L Pope # (Auto) 1.2 H Eos # (Auto) 0.0 Baso # (Auto) 0.1 WBC Differential Manual diff final Seg Neuts % (Manual) 87 H Band Neuts % (Manual) 4 Lymphocytes % (Manual) 3 L Monocytes % (Manual) 6 Eosinophils % (Manual) Abs Neuts (Manual) 11.3 H Nucleated RBCs/100 WBC 13 H Differential Comment . Platelet Estimate Normal Platelet Morphology Enlarged H Polychromasia 2.5 H Spherocytes Target Cells 2+ H Ovalocytes 1+ H Borjas-T[place]ah Bodies Present H Bryan Cells 1+ H Acanthocytes (Spur) 1+ H Keratocytes 1+ H Hematology Comments PT 34.0 H INR 3.4 Sodium 141 Potassium 3.5 Chloride 104 Carbon Dioxide 18.4 L Anion Gap 19 H BUN 146 H Creatinine 2.75 H Estimated GFR 21 L Random Glucose 69 L Calcium 9.6 D Phosphorus 4.3 D Magnesium Iron TIBC % Saturation Ferritin Total Bilirubin 18.0 H Direct Bilirubin 12.7 H Indirect Bilirubin 5.3 H AST 87 H ALT 60 H Alkaline Phosphatase 100 Ammonia Total Creatine Kinase Total Protein 7.0 D Albumin 4.0 Hepatitis A IgM Ab Hep Bs Antigen Hep B Core IgM Ab Hep C IgG Ab Result Diagrams: 08/31/18 08:29 08/31/18 08:29 Microbiology: Microbiology 08/27/18 12:48 Aerobic Blood Culture - Preliminary Blood - Peripheral No growth in 4 days Anaerobic Blood Culture - Preliminary No growth in 4 days 08/27/18 12:58 Aerobic Blood Culture - Preliminary Blood - Peripheral No growth in 4 days Anaerobic Blood Culture - Preliminary No growth in 4 days 08/16/18 13:20 Fungal Smear - Final Fluid - Pleural fluid No fungal elements seen Fungal Culture - Preliminary No growth in 2 weeks 08/16/18 13:20 Acid Fast Bacilli Smear - Final Fluid - Pleural fluid No acid fast bacilli seen Mycobacterial Culture - Preliminary No growth in 2 weeks 08/27/18 17:00 Urine Culture - Final Catheterized Urine Belkis albicans Imaging: Head CT 08/17/18 00:00 CONCLUSION: 1. No acute intracranial abnormality demonstrated. 2. 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 . Liver Ultrasound 08/29/18 00:00 CONCLUSION: 1. Distended hepatic veins may be related to right heart failure. 2. Diffuse gallbladder wall thickening and pericholecystic fluid but no gallstones and no sonographic Lombardo sign. May be related to hypoalbuminemia. 3. Small amount of ascites. 4. Nonobstructing calculus in the midpole of the right kidney. Chest X-Ray 08/30/18 06:00 CONCLUSION: No significant change Procedures: 08/15/18-placement of left IJ central line 08/16/18-endotracheal intubation after PEA arrest 08/16/18-bedside thoracentesis with removal of 950 mL's of slightly cloudy, yellow colored fluid. 08/16/18-right femoral arterial line placement 08/20/18-right chest tube placement 08/27/18-medically extubated . Assessment and Plan - Disease Oriented Problem List (1) Severe sepsis (2) Cardiogenic shock (3) Systolic heart failure (4) Cardiomyopathy (5) Pulmonary edema (6) Pneumonia (7) Lactic acidemia (8) Supratherapeutic INR (9) Hypertension - Symptom Scale (1) Shortness of breath 0-10 Scale: Unable to quantify Comment: History of congestive heart failure, chronic kidney disease and recent PEA (2) Pain Comment: Patient went into PEA arrest on 08/16/18. Patient has been bedbound during this hospitalization. Complaining of pain to his sacral area. Patient has diarrhea. (3) Debility 0-10 Scale: Unable to quantify Comment: Progressive. Patient has had multiple hospitalizations in the past 12 months. Pertinent Non-Medical Issues: Psychosocial: Patient is originally from [place]. She moved to [place] in 2014. Patient worked in [employer] to [employer] 2007. 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 Patient has been to her current for 43 years. They have 2 adult sons, Rey Hodge who lives locally and another son who lives in [place]. She has 6 grandchildren. Spiritual: Patient is Congregation-open to interactive media designer visits. Computer Programmer Analyst hTomas has visited with spouse before. Legal: Never completed advanced directives. Ethical issues impacting care: None identified at this time . Important Contacts: Spouse-Rey Funes [phone] Son-Rey Funes [phone] Daughter-Tracey FunesLvnes-[phone] . Prognosis: Mrs. Funes is a 67-year-old old with a medical history significant for congestive heart failure with an ejection fraction less than 20%, coronary artery disease, ventricular tachycardia with a Medtr[employer] ICD, pulmonary embolism , chronic kidney disease stage III, hypertension, cardiovascular accident with residual left-sided weakness in 2016. Patient presented to the emergency room on 08/15/2018 for further evaluation of progressive weakness, shortness of breath, lower extremity edema and productive cough. Patient's hospital course complicated with PEA cardiac arrest, worsening lung function requiring chest tube placement, and worsening renal function despite aggressive diuresis. Given multiple ongoing comorbidities, patient remains at high risk for further complications, deterioration and decline. . Code Status: No Code DNR Plan: PLAN: Legal decision maker: Patient medically extubated on 08/27/18. She is partially oriented and lacks insight regarding his medical condition at this time. She is . According to [place] statute patient's spouse Rey Funes Sr will serve as patient's healthcare proxy decision-maker. Goals: Patient with the support of her if decided to forego any further aggressive treatment and transition to comfort oriented care through hospice services. CODE STATUS readdressed, patient elected DO NOT RESUSCITATE. Hospice consulted. CODE STATUS: No code DNR. SYMPTOMS: * Shortness of breath: Patient has history of CHF, and currently has pneumonia and acute on chronic kidney failure. Intubated on 08/16/18 after PEA arrest. Patient has had thoracentesis and has recurrent pleural effusions requiring thoracotomy and placement of right chest tubes. Patient medically extubated on . Patient has shortness of breath with conversation. * At risk for pain: Patient is currently bedbound and had PEA arrest requiring CPR on 08/16/17 and intubation. Patient has had multiple procedures done including thoracentesis, thoracotomy with chest tube placement, central line placement and arterial line placement which can all be sources of pain. Patient complaining of pain to his sacral area. * Debility. Progressive. Patient has multiple ongoing comorbidities. She has had multiple (x7) hospitalizations in the past year. Patient has been increasingly getting weak due to her failing heart. Patient will most likely continue to deteriorate given her heart condition, she will most likely not effectively participate in physical therapy/rehabilitation. Physical therapy consulted, recommending PT at rehab. Palliative care will continue to follow the patient during hospital course as condition evolves, to assist patient/decision-maker with understanding of their medical conditions, weighing benefits/burdens of treatment options, for clarification of goals of treatment. Additionally will assist with any symptoms of palliative concern
[2018-08-31] MEDS ORDERED: Bumetanide Inj 25 MG/100 ML BAG IV.CONT SCH (18:00)
--- NOTE | 2018-09-01 04:58 | XR ---
EXAM DATE: 09/01/2018 4:14 AM EST AGE/SEX: 67 years / Female INDICATIONS: Pleural effusion. CLINICAL DATA: This is the patient's subsequent encounter. Patient reports that signs and symptoms h ave been present for 2 weeks and indicates a pain score of Nonresponsive. MEDICAL/SURGICAL HISTORY: Congestive heart failure. Stroke. Hypertension. Chronic kidney dis ease stage III. Myocardial infarction. Coronary artery disease. Defibrillator. COMPARISON: [facility] [place], CHEST 1V SINGLE AP, 08/30/2018. . FINDINGS: A pacing implement is present with control pack over the right upper chest. Streaky infiltrate in the left midlung and left base, slightly progressed with small associated effusion. Cardiac contours are unchanged CONCLUSION: Slight interval worsening in aeration Electronically signed by: Trung Connell MD Board Certified Radiologist 09/01/2018 4:56 AM EST
--- NOTE | 2018-09-01 08:41 | P.PNADD ---
Addendum to Inpatient Note Reason for Addendum: Additional Documentation Additional information: This addendum is to document that at approximately 0830 this morning the [facility] medical team went to visit Ms. barriga in her room and she was found to be obtunded. At the time her Rey Funes was contacted via phone at [phone]. After speaking with Mr. Funes he reported that Ms. Funes and himself decided yesterday that she would be coded DNR as well as have opted for comfort care with hospice. Goals of care were discussed with palliative care. He reports that although the paperwork for DNR has not been officially signed that he intended to come in at 10 in the morning today to sign them. He also clarified that he does not want a workup if patient is suffering acute stroke or otherwise life-threatening illness. Of note, patient did receive 0.5 mg of Ativan at 0233 this a.m.
--- NOTE | 2018-09-01 09:32 | XR ---
EXAM DATE: 09/01/2018 9:27 AM EST AGE/SEX: 67 years / Female INDICATIONS: Shortness of breath. CLINICAL DATA: This is the patient's subsequent encounter. Patient reports that signs and symptoms h ave been present for 4 - 6 days and indicates a pain score of Nonresponsive. MEDICAL/SURGICAL HISTORY: Non-responsive. Non-responsive. COMPARISON: [facility] [place], CHEST 1V SINGLE AP, 09/01/2018. . FINDINGS: A single AP view of the chest demonstrates cardiomegaly with left mid lung subsegmental atelectasis a nd stable left basilar density. Increase in pulmonary vascularity. Right-sided defibrillator unchange d.. The cardiomediastinal contours are unremarkable. Osseous structures are intact. CONCLUSION: 1. Left midlung subsegmental atelectasis and left basilar density. 2. Cardiomegaly. Electronically signed by: Jamil Kilgore MD Board Certified Radiologist 09/01/2018 9:30 AM EST
[2018-09-01 10:15] LABS: ABG Base Excess -5.1 mmol/L (-2-2); ABG PCO2 25 mmHg (38-42); ABG PO2 99 mmHg (61-120)
[2018-09-01 10:41] LABS: Baso % (Auto) 0.3 % (0.0-2.0); Eos % (Auto) 0.2 % (0.0-4.0); Hematocrit 30.4 % (35.0-46.0); Hemoglobin 9.7 gm/dL (11.6-15.3); Lymph % (Auto) 8.8 % (9.0-44.0); Mean Corpuscular Volume 75.1 fL (80.0-100.0); Mean Platelet Volume 10.8 fL (7.0-11.0); Mono # (Auto) 1.2 th/mm3 (0.0-0.9); Mono % (Auto) 10.6 % (0.0-8.0); Neut # (Auto) 8.9 th/mm3 (1.8-7.7); Neut % (Auto) 80.1 % (16.0-70.0); Red Blood Count 4.04 mil/mm3 (4.00-5.30); Red Cell Distribution Width 21.1 % (11.6-17.2); White Blood Count 11.1 th/mm3 (4.0-11.0)
[2018-09-01 10:47] LABS: INR 2.9 Ratio; Prothrombin Time 28.8 sec (9.8-11.6)
--- NOTE | 2018-09-01 11:03 | P.PNFP ---
Subjective Interval history: Patient was seen at bedside this morning. Overnight patient inadvertently pulled out her chest tube. Patient originally seen this morning with medical team on rounds and was obtunded and difficult to arouse. Family contacted as per addendum. Upon subsequent visitation to her room patient was much more awake and denied any pain or shortness of breath. An extensive conversation with patient and family in the presence of palliative care was also completed. Patient and family have elected to have patient DNR with subsequent care at hospice facilities. All questions were answered to the patient's satisfaction. <Dru Jane - 09/01/18 14:27> Results - Labs Result diagrams: 09/01/18 10:01 09/01/18 10:01 <Amelia Phoenix - 09/02/18 09:38> Abnormal lab results 09/01/18 09/01/18 09/01/18 Range/Units 10:01 10:01 10:01 WBC 11.1 H (4.0-11.0) th/mm3 Hgb 9.7 L (11.6-15.3) gm/dL Hct 30.4 L (35.0-46.0) % MCV 75.1 L (80.0-100.0) fL MCH 24.0 L (27.0-34.0) pg RDW 21.1 H (11.6-17.2) % Neut % (Auto) 80.1 H (16.0-70.0) % Lymph % (Auto) 8.8 L (9.0-44.0) % [place] % (Auto) 10.6 H (0.0-8.0) % Neut # (Auto) 8.9 H (1.8-7.7) th/mm3 [place] # (Auto) 1.2 H (0.0-0.9) th/mm3 Seg Neuts % (Manual) 91 H (16-70) % Lymphocytes % (Manual) 2 L (9-44) % Myelocytes % (Man) 1 H (0-0) % Abs Neuts (Manual) 10.2 H (1.8-7.7) th/mm3 Nucleated RBCs/100 WBC 7 H (0-0) /100 WBC Platelet Morphology Enlarged H (Normal) Polychromasia 2.6 H (0.0-1.9) % Target Cells 2+ H (None) Ovalocytes 1+ H (None) [place] Bodies Present H (None) [place] Cells 1+ H (None) Acanthocytes ([place]) 1+ H (None) Keratocytes Occ H (None) PT 28.8 H (9.8-11.6) sec ABG pH (7.380-7.420) ABG pCO2 (38-42) mmHg ABG HCO3 (22-26) mmol/L ABG Base Excess (-2-2) mmol/L Hemoglobin (12.0-16.0) G/DL Chloride 108 H (98-107) meq/L Carbon Dioxide 20.7 L (21.0-32.0) meq/L Anion Gap 16 H (5-15) meq/L BUN 148 H (7-18) mg/dL Creatinine 2.57 H (0.50-1.00) mg/dL Estimated GFR 23 L (>89) mL/min Phosphorus 5.3 H D (2.5-4.9) mg/dL Total Bilirubin 18.7 H (0.2-1.0) mg/dL AST 69 H (15-37) U/L Ammonia (11-32) mcmol/L Total Protein 5.9 L D (6.4-8.2) g/dL 09/01/18 09/01/18 Range/Units 10:01 10:03 WBC (4.0-11.0) th/mm3 Hgb (11.6-15.3) gm/dL Hct (35.0-46.0) % MCV (80.0-100.0) fL MCH (27.0-34.0) pg RDW (11.6-17.2) % Neut % (Auto) (16.0-70.0) % Lymph % (Auto) (9.0-44.0) % [place] % (Auto) (0.0-8.0) % Neut # (Auto) (1.8-7.7) th/mm3 [place] # (Auto) (0.0-0.9) th/mm3 Seg Neuts % (Manual) (16-70) % Lymphocytes % (Manual) (9-44) % Myelocytes % (Man) (0-0) % Abs Neuts (Manual) (1.8-7.7) th/mm3 Nucleated RBCs/100 WBC (0-0) /100 WBC Platelet Morphology (Normal) Polychromasia (0.0-1.9) % Target Cells (None) Ovalocytes (None) [place] Bodies (None) Bryan Cells (None) Acanthocytes ([place]) (None) Keratocytes (None) PT (9.8-11.6) sec ABG pH 7.47 H (7.380-7.420) ABG pCO2 25 L (38-42) mmHg ABG HCO3 18 L (22-26) mmol/L ABG Base Excess -5.1 L (-2-2) mmol/L Hemoglobin 9.1 L (12.0-16.0) G/DL Chloride (98-107) meq/L Carbon Dioxide (21.0-32.0) meq/L Anion Gap (5-15) meq/L BUN (7-18) mg/dL Creatinine (0.50-1.00) mg/dL Estimated GFR (>89) mL/min Phosphorus (2.5-4.9) mg/dL Total Bilirubin (0.2-1.0) mg/dL AST (15-37) U/L Ammonia Less than 10 L (11-32) mcmol/L Total Protein (6.4-8.2) g/dL Short CBC 09/01/18 Range/Units 10:01 WBC 11.1 H (4.0-11.0) th/mm3 Hgb 9.7 L (11.6-15.3) gm/dL Hct 30.4 L (35.0-46.0) % Plt Count (150-450) th/mm3 BMP 09/01/18 09/01/18 10:01 10:01 Sodium 145 Cancelled Potassium 3.5 Cancelled Chloride 108 H Cancelled Carbon Dioxide 20.7 L Cancelled BUN 148 H Cancelled Creatinine 2.57 H Cancelled Calcium 8.5 D Cancelled Liver Function 09/01/18 09/01/18 Range/Units 10:01 10:01 Total Bilirubin 18.7 H Cancelled (0.2-1.0) mg/dL AST 69 H Cancelled (15-37) U/L ALT 49 Cancelled (10-53) U/L Alkaline Phosphatase 86 Cancelled (45-117) U/L Albumin 3.4 D Cancelled (3.4-5.0) g/dL <Amelia Phoenix - 09/02/18 09:38> Abnormal lab results 08/31/18 09/01/18 09/01/18 Range/Units 10:47 10:01 10:01 PT 34.0 H 28.8 H (9.8-11.6) sec ABG pH (7.380-7.420) ABG pCO2 (38-42) mmHg ABG HCO3 (22-26) mmol/L ABG Base Excess (-2-2) mmol/L Hemoglobin (12.0-16.0) G/DL Ammonia Less than 10 L (11-32) mcmol/L 09/01/18 Range/Units 10:03 PT (9.8-11.6) sec ABG pH 7.47 H (7.380-7.420) ABG pCO2 25 L (38-42) mmHg ABG HCO3 18 L (22-26) mmol/L ABG Base Excess -5.1 L (-2-2) mmol/L Hemoglobin 9.1 L (12.0-16.0) G/DL Ammonia (11-32) mcmol/L BMP 09/01/18 10:01 Sodium Cancelled Potassium Cancelled Chloride Cancelled Carbon Dioxide Cancelled BUN Cancelled Creatinine Cancelled Calcium Cancelled Liver Function 09/01/18 Range/Units 10:01 Total Bilirubin Cancelled AST Cancelled ALT Cancelled Alkaline Phosphatase Cancelled Albumin Cancelled <Dru Jane - 09/01/18 11:03> - Imaging Impressions Chest X-Ray 09/01/18 00:00 CONCLUSION: 1. Left midlung subsegmental atelectasis and left basilar density. 2. Cardiomegaly. Chest X-Ray 09/01/18 06:00 CONCLUSION: Slight interval worsening in aeration <Dru Jane - 09/01/18 11:03> Physical Exam Vital signs: Vital Signs 09/01/18 12:00 Temperature 97.9 F Pulse Rate 81 Respiratory Rate 18 Blood Pressure 118/68 Pulse Oximetry 94 L Intake & Output 09/01/18 09/02/18 09/02/18 18:59 06:59 18:59 Other: Date of Last Bowel Movement 09/01/18 <Amelia Phoenix - 09/02/18 09:38> Vital Signs 08/31/18 12:00 08/31/18 14:00 08/31/18 16:00 Temperature 97.9 F 98.0 F Pulse Rate 87 82 79 Respiratory Rate Blood Pressure 116/78 101/67 Pulse Oximetry 100 100 08/31/18 17:17 08/31/18 19:00 08/31/18 20:00 Temperature 97.6 F Pulse Rate 78 79 Respiratory Rate Blood Pressure 95/74 L Pulse Oximetry 100 93 L 08/31/18 22:00 09/01/18 00:00 09/01/18 04:00 Temperature 97.2 F L 97.2 F L 97.4 F L Pulse Rate 83 84 80 Respiratory Rate 17 17 17 Blood Pressure 101/74 104/74 93/64 L Pulse Oximetry 95 100 93 L 09/01/18 08:00 Temperature 97.6 F Pulse Rate 84 Respiratory Rate 20 Blood Pressure 114/82 Pulse Oximetry 99 Intake & Output 08/31/18 09/01/18 09/01/18 18:59 06:59 18:59 Intake Total 580 / 580 360 / 360 Output Total 420 / 420 Balance 160 / 160 360 / 360 Weight 65.7 kg Intake: IV 100 / 100 Maxipime Inj 2,000 MG In NS Inj 100 / 100 100 ML @ 200 mls/hr IV.SIG Q24H [facility] Rx#:[id number] Oral 480 / 480 360 / 360 Output: Stool 50 / 50 Urine Amount (Catheter) 200 / 200 Female External 200 / 200 Chest Tube Drainage 170 / 170 Right Mid-Axillary Chest 170 / 170 Other: # Voids 1 3 # Incontinent Voids 2 Date of Last Bowel Movement 08/31/18 08/31/18 <Phong MiguelDru O - 09/01/18 11:03> Narrative: GENERAL: Obtunded and difficult to arouse on initial exam. More awake and engaging on second attempt. SKIN: warm and dry. HEAD: Normocephalic. Significant bilateral scleral icterus. CARDIOVASCULAR: Regular rate and rhythm with no murmurs, rubs or gallops. RESPIRATORY: Clear to auscultation bilaterally, overlying bandages were chest tube was previously placed with no signs of infection or bleeding. GASTROINTESTINAL: Abdomen soft, non-tender, nondistended. EXTREMITIES: No lower ext edema, NEUROLOGICAL: Responsive, interactive and following commands. Patient alert and oriented x3 with less confusion on today's date. Cranial nerves II through XII appear to be grossly intact. Patient had no facial drooping. Moving all extremities without difficulty. <Dru Jane 09/01/18 14:27> - Urinary Catheter Management Female External Cath placed during this visit: no <Amelia Phoenix 09/02/18 09:38> no <Dru Jane 09/01/18 14:27> Indwelling Urethral Catheter Cath placed during this visit: no <Amelia Phoenix 09/02/18 09:38> yes, but has since been removed by the nurse <Dru Jane 09/01/18 14:27> Reason for continuing: Decision to DC catheter <Dru Jane 09/01/18 11 :03> Insertion date: 08/16/18 <Dru Jane 09/01/18 11:03> Removal date: 08/28/18 <Dru Jane 09/01/18 11:03> Removal time: 18:00 <Dru Jane 09/01/18 11:03> Assessment and Plan - Assessment (1) Acute exacerbation of CHF (congestive heart failure) Code(s): I50.9 - Heart failure, unspecified Status: Acute (2) Pleural effusion Code(s): J90 - Pleural effusion, not elsewhere classified Status: Acute (3) Severe sepsis Code(s): A41.9 - Sepsis, unspecified organism; R65.20 - Severe sepsis without septic shock Status: Resolved (4) Pneumonia Code(s): J18.9 - Pneumonia, unspecified organism Status: Resolved (5) Acute on chronic kidney failure Code(s): N17.9 - Acute kidney failure, unspecified; N18.9 - Chronic kidney disease, unspecified Status: Acute (6) Hyperbilirubinemia Code(s): E80.6 - Other disorders of bilirubin metabolism Status: Acute (7) Hypertension Code(s): I10 - Essential (primary) hypertension Status: Acute (8) Supratherapeutic INR Code(s): R79.1 - Abnormal coagulation profile Status: Resolved (9) Nutrition, metabolism, and development symptoms Code(s): R63.8 - Other symptoms and signs concerning food and fluid intake Status: Acute <Amelia Phoenix - 09/02/18 09:38> (1) Acute exacerbation of CHF (congestive heart failure) Code(s): I50.9 - Heart failure, unspecified Status: Acute Plan: -BNP 4000 on admission -Bumex discontinued and patient now on Diuril 500mg BID -No lower extremity edema -Echo 08/17: EF 20%, fairly dilated left ventricle, severe mitral regurgitation -Urine output slightly decreased today at 0.68 ml/kg -BNP this morning of > 5000 -CHF likely contributing to hepatic congestion resulting in elevated bilirubin -Diuresis with Bumex 0.5 mg/h overnight -Discharge to hospice today \ (2) Pleural effusion Code(s): J90 - Pleural effusion, not elsewhere classified Status: Acute Plan: Patient status post right sided thoracentesis (08/16/18) with evacuation of approximately 950 ml of slightly cloudy, yellow colored fluid was removed. -Patient underwent therapeutic right sided chest tube placement with pigtail that drained 950ml of slightly cloudy yellow fluid. -08/16: Pleural fluid showed 1,333 red blood cells with 230 nucleated cells. Fluid consistent with transudative process. Cultures show no growth to date. Plan: -Chest tube inadvertently pulled out overnight, drained 170 mL over the last 24 hours (3) Severe sepsis Code(s): A41.9 - Sepsis, unspecified organism; R65.20 - Severe sepsis without septic shock Status: Resolved Plan: Community-acquired pneumonia complicated by lower extremity edema in the setting of CHF with an EF of 20%. Patient status post thoracentesis for pleural effusion. -Intubated mechanically ventilated, extubated on 08/27 -Blood cultures (08/15): No growth to date -Pleural fluid Gram stain and cultures no growth to date Plan: -Discharge to hospice today (4) Pneumonia Code(s): J18.9 - Pneumonia, unspecified organism Status: Resolved Plan: Community acquired right-sided pneumonia with lactic acidosis. -DuoNeb every 2 hours as needed -Sputum culture: Moderate growth normal respiratory bear -Respiratory panel uncollected -Continue with antibiotics per critical care team as dictated above -Repeat CXR 2/9: Improved aeration in left lower lobe. -Repeat CXR 08/27:Nasogastric tube sidehole is not across the GE junction ET tube is just above the josh. Compensated cardiomegaly with minimal consolidative changes left base -Repeat CXR 08/29: Mild bibasilar parenchymal opacities, left worse than right, grossly stable. Cardiac contour is unchanged. -Repeat CXR 08/30: Persistent left perihilar atelectasis or infiltrate. Cardiac contours are unchanged, no significant change. -Discontinue azithromycin -Discontinue Flagyl -Discharge to hospice (5) Acute on chronic kidney failure Code(s): N17.9 - Acute kidney failure, unspecified; N18.9 - Chronic kidney disease, unspecified Status: Acute Plan: This patient stage III CKD with elevated creatinine above baseline on admission. Possibly due to decrease intravascular volume in the setting of sepsis. -Creatinine on admission 2.72 from baseline of 1.5. Plan: -Discharge to hospice may continue Bumex while there (6) Hyperbilirubinemia Code(s): E80.6 - Other disorders of bilirubin metabolism Status: Acute Plan: This patient had a doubling of her total bilirubin over the last several days. On 08/27 bilirubin was 9.1 on 08/30 bilirubin had increased to 13.5. Conjugated/ direct bilirubin 9.8 with an indirect of 3.7 and a normal alkaline phosphatase. Likely due to hepatic congestion secondary to congestive heart failure. Elevation of bilirubin may also be due to decreased albumin and third spacing, is also possible that it is idiopathic. At this time no evidence of hemolysis, biliary obstruction, viral hepatitis, or shock liver. -Hepatic ultrasound from 08/29 showed distended hepatic veins, diffuse gallbladder wall thickening and pericholecystic fluid but no gallstones no sonographic Lombardo signs. Nonobstructing calculus in the midpole the right kidney. -Likely due to hepatic congestion secondary to heart failure -Hepatitis panel negative -Rheum/immune panel pending -Alpha-1 antitrypsin pending -Discharge to hospice (7) Hypertension Code(s): I10 - Essential (primary) hypertension Status: Acute Plan: History of hypertension. PEA required intubation and mech vent. Patient initially required pressors now off. -Discharge hospital (8) Supratherapeutic INR Code(s): R79.1 - Abnormal coagulation profile Status: Resolved Plan: History of Afib on warfarin but supratherapeutic on admission. INR now 3.4. -Hold Wafarin 1mg daily -2.5 one-time dose of Phytonadione -Goal INR of 2-3 -INR and warfarin dose will be reassessed after arrival at hospice (9) Nutrition, metabolism, and development symptoms Code(s): R63.8 - Other symptoms and signs concerning food and fluid intake Status: Acute Plan: Fluids: Per band builder Electrolytes: Replete as needed Nutrition: mechanical soft DVT prophylaxis: Supratherapeutic INR, hold Coumadin <Dru Jane - 09/01/18 14:19> - Attending Attestation Patient seen and examined the morning of 09/01/2018, discussed with resident team. I agree with assessment and management as documented and discussed with me. Pt has elected for hospice care. Discharge to hospice care center today. Greater than 30 minutes spent counselling and coordinating care. <Amelia Phoenix - 09/02/18 09:38> <Dru Jane - Last Filed: 09/01/18 14:19> (1) Acute exacerbation of CHF (congestive heart failure) Qualifiers: Heart failure type: systolic Qualified Code(s): I50.23 - Acute on chronic systolic (congestive) heart failure (4) Pneumonia Qualifiers: Pneumonia type: due to unspecified organism Lung location: unspecified part of lung (5) Acute on chronic kidney failure Qualifiers: Acute renal failure type: unspecified Chronic kidney disease stage: stage 4 ( severe) Qualified Code(s): N17.9 - Acute kidney failure, unspecified; N18.4 - Chronic kidney disease, stage 4 (severe) (7) Hypertension Qualifiers: Hypertension type: unspecified Qualified Code(s): I10 - Essential (primary) hypertension <Amelia Phoenix - Last Filed: 09/02/18 09:38> (1) Acute exacerbation of CHF (congestive heart failure) Qualifiers: Heart failure type: systolic Qualified Code(s): I50.23 - Acute on chronic systolic (congestive) heart failure (4) Pneumonia Qualifiers: Pneumonia type: due to unspecified organism Lung location: unspecified part of lung (5) Acute on chronic kidney failure Qualifiers: Acute renal failure type: unspecified Chronic kidney disease stage: stage 4 ( severe) Qualified Code(s): N17.9 - Acute kidney failure, unspecified; N18.4 - Chronic kidney disease, stage 4 (severe) (7) Hypertension Qualifiers: Hypertension type: unspecified Qualified Code(s): I10 - Essential (primary) hypertension <Dru Jane - Last Filed: 09/01/18 14:19> (1) Acute exacerbation of CHF (congestive heart failure) Qualifiers: Heart failure type: systolic Qualified Code(s): I50.23 - Acute on chronic systolic (congestive) heart failure (4) Pneumonia Qualifiers: Pneumonia type: due to unspecified organism Lung location: unspecified part of lung (5) Acute on chronic kidney failure Qualifiers: Acute renal failure type: unspecified Chronic kidney disease stage: stage 4 ( severe) Qualified Code(s): N17.9 - Acute kidney failure, unspecified; N18.4 - Chronic kidney disease, stage 4 (severe) (7) Hypertension Qualifiers: Hypertension type: unspecified Qualified Code(s): I10 - Essential (primary) hypertension <Amelia Phoenix - Last Filed: 09/02/18 09:38> (1) Acute exacerbation of CHF (congestive heart failure) Qualifiers: Heart failure type: systolic Qualified Code(s): I50.23 - Acute on chronic systolic (congestive) heart failure (4) Pneumonia Qualifiers: Pneumonia type: due to unspecified organism Lung location: unspecified part of lung (5) Acute on chronic kidney failure Qualifiers: Acute renal failure type: unspecified Chronic kidney disease stage: stage 4 ( severe) Qualified Code(s): N17.9 - Acute kidney failure, unspecified; N18.4 - Chronic kidney disease, stage 4 (severe) (7) Hypertension Qualifiers: Hypertension type: unspecified Qualified Code(s): I10 - Essential (primary) hypertension
[2018-09-01 11:07] LABS: Alanine Aminotransferase 49 U/L (10-53); Albumin 3.4 g/dL (3.4-5.0); Alkaline Phosphatase 86 U/L (45-117); Anion Gap 16 meq/L (5-15); Aspartate Aminotransferase 69 U/L (15-37); Blood Urea Nitrogen 148 mg/dL (7-18); Calcium 8.5 mg/dL (8.5-10.1); Carbon Dioxide 20.7 meq/L (21.0-32.0); Chloride 108 meq/L (98-107); Glomerular Filtration Rate 23 mL/min (>89); Glucose,Random 87 mg/dL (74-106); Magnesium 2.3 mg/dL (1.5-2.5); Phosphorus 5.3 mg/dL (2.5-4.9); Potassium 3.5 meq/L (3.5-5.1); Sodium 145 meq/L (136-145); Total Protein 5.9 g/dL (6.4-8.2)
[2018-09-01 11:30] LABS: Eosinophils 1 % (0-4); Lymphocytes 2 % (9-44); Monocytes 5 % (0-8); Myelocytes 1 % (0-0); Tallied Nucleated RBC 7 (0-0)
[2018-09-01 11:31] LABS: Burr Cells 1+; Ovalocytes 1+; Platelet Estimate Normal (Normal); Polychromasia 2.6 % (0.0-1.9); Target Cells 2+
[2018-09-01 11:32] LABS: Acanthocytes 1+; Howell-Jolly Bodies Present
--- NOTE | 2018-09-01 12:36 | P.HPFP ---
History of Present Illness Primary Care Physician: Melissa Monreal MD, R3 Chief Complaint: Pneumonia hyotension History of Present Illness: 67-year-old female presenting to the emergency department for progressive weakness associated with shortness of breath and cough productive of a whitish sputum over the course of 1 week. She has a history of significant CHF with an EF of 20%, stage III chronic kidney disease, and hypertension. In the emergency department she was found to be septic with source being pneumonia as well as being significantly fluid overloaded with peripheral edema. She required 2 L IV fluid bolus and was started on antibiotics without resolution of her hypotension. Critical care was consulted and patient was admitted to the [facility] for further treatment and management of her sepsis. - Diagnosis (1) Acute exacerbation of CHF (congestive heart failure) (2) Pleural effusion (3) Severe sepsis (4) Pneumonia (5) Acute on chronic kidney failure (6) Hyperbilirubinemia (7) Hypertension (8) Supratherapeutic INR (9) Nutrition, metabolism, and development symptoms Inpatient Certification: I certify that the inpatient services were ordered in accordance with Medicare regulations governing the order. This includes certification that hospital inpatient services are reasonable and necessary and in the case of services not specified as inpatient-only under 42 CFR 419.22(n), that they are appropriately provided as inpatient services in accordance to with the 2-midnight benchmark under 43 CFR 412.3(e) [facility] - History History Provided By: Family Member, Medical Record - Medical History Medical History: Medical History (Last Reviewed 08/28/18 @ 08:51 by Holly Olmstead) Cardiac defibrillator in place Bronchitis CHF (congestive heart failure) CKD (chronic kidney disease), stage III CVA (cerebral vascular accident) Coronary artery disease Fibromyalgia Hypertension Infection Myocardial infarction - Surgical History Surgical History: Surgical History (Last Reviewed 08/28/18 @ 08:51 by Holly Olmstead) History of placement of internal cardiac defibrillator (Resolved) - Family History Family History: Family History (Last Reviewed 08/29/18 @ 14:38 by Blas Nelson) Father CAD (coronary artery disease) Myocardial infarction Brother CAD (coronary artery disease) Myocardial infarction Other Malignant neoplasm - Tobacco History Second Hand Smoke Exposure: No Tobacco Use In Past 30 Days: No Smoking Status: Never smoker - Alcohol History How Often Do You Have a Drink Containing Alcohol: Never - Substance Use History Substance History: No History of Abuse - Travel History Recent Travel in the [place] Within the Last 8 Weeks: No Recent Travel Out of the Country Within the Last 8 Weeks: No - Immunization History Tetanus Immunization: Unable to Assess Hx Influenza Vaccine This Season: No Medications and Allergies Active Medications: Active Medications Al Hydroxide/Mg Hydroxide (Milk Of Magnesia Liq) 30 ml PO Q12H PRN PRN Reason: Mild Constipation Bisacodyl (Dulcolax Supp) 10 mg RECTAL DAILY PRN PRN Reason: SEVERE CONSITIPATION Bumetanide (Bumex Inj) 25 mg in 100 mls @ 2 mls/hr IV.CONT .Q24H [facility] Last Admin: 08/31/18 18:34 Dose: 0.5 mg/hr, 2 mls/hr Lactulose (Lactulose Liq) 30 ml PO DAILY PRN PRN Reason: SEVERE CONSITIPATION Lorazepam (Ativan Inj) 0.5 mg IV.PUSH Q6H PRN PRN Reason: ANXIETY Last Admin: 09/01/18 02:33 Dose: 0.5 mg Metoprolol Tartrate (Lopressor) 12.5 mg PO TID [facility] Last Admin: 08/31/18 17:08 Dose: 12.5 mg Miscellaneous (Pill Splitter) 1 each OTHER UNSCH PRN PRN Reason: SEE LABEL COMMENTS Miscellaneous (Pill Splitter) 1 each OTHER UNSCH PRN PRN Reason: SEE LABEL COMMENTS Ondansetron HCl (Zofran Inj) 4 mg IV.PUSH Q6H PRN PRN Reason: NAUSEA OR VOMITING Last Admin: 08/16/18 14:05 Dose: 4 mg Potassium Chloride (K-Dur) 20 meq PO DAILY [facility] Last Admin: 08/31/18 08:33 Dose: 20 meq Promethazine HCl (Phenergan Supp) 25 mg RECTAL Q6H PRN PRN Reason: NAUSEA OR VOMITING Senna/Docusate Sodium (Aleyda-Colace) 1 tab PO BID [facility] Last Admin: 08/31/18 20:31 Dose: Not Given Sennosides (Senokot) 17.2 mg PO Q12H PRN PRN Reason: Moderate Constipation Sodium Chloride (Ns Flush) 2 ml IV.FLUSH BID [facility] Last Admin: 08/31/18 20:31 Dose: 2 ml Sodium Chloride (Ns Flush) 2 ml IV.FLUSH UNSCH PRN PRN Reason: FLUSH AFTER USING IV ACCESS Warfarin Sodium (Coumadin) 1 mg PO DAILY@1600 ANAHI Last Admin: 08/29/18 17:39 Dose: 1 mg Allergies Allergy/AdvReac Type Severity Reaction Status Date / Time iodine Allergy Severe sneezing, Verified 08/15/18 08:37 chest tightness potassium iodide Allergy Severe sneezing, Verified 08/15/18 08:37 chest tightness povidone-iodine Allergy Severe sneezing, Verified 08/15/18 08:37 chest tightness sodium iodide Allergy Severe sneezing, Verified 08/15/18 08:37 chest tightness sodium iodide Allergy Severe sneezing, Verified 08/15/18 08:37 chest tightness sulfamethoxazole Allergy Intermediate abdominal Verified 08/15/18 08:37 pain trimethoprim Allergy Intermediate abdominal Verified 08/15/18 08:37 pain hydralazine Allergy Unknown Edema Verified 08/15/18 08:37 Statins Allergy Intermediate Hives Uncoded 08/15/18 08:37 Home Medications Medication Instructions Recorded Confirmed Type bumetanide 2 mg PO DAILY 05/21/18 08/15/18 History carvedilol 25 mg PO BID 05/21/18 08/15/18 History potassium chloride 20 meq PO DAILY 05/21/18 08/15/18 History spironolactone 50 mg PO DAILY 05/21/18 08/15/18 History warfarin 2 mg PO DAILY 08/15/18 08/15/18 History Exam Vital signs: Vital Signs 08/31/18 14:00 08/31/18 16:00 08/31/18 17:17 Temperature 98.0 F Pulse Rate 82 79 78 Respiratory Rate Blood Pressure 101/67 Pulse Oximetry 100 08/31/18 19:00 08/31/18 20:00 08/31/18 22:00 Temperature 97.6 F 97.2 F L Pulse Rate 79 83 Respiratory Rate 17 Blood Pressure 95/74 L 101/74 Pulse Oximetry 100 93 L 95 09/01/18 00:00 09/01/18 04:00 09/01/18 08:00 Temperature 97.2 F L 97.4 F L 97.6 F Pulse Rate 84 80 84 Respiratory Rate 17 17 20 Blood Pressure 104/74 93/64 L 114/82 Pulse Oximetry 100 93 L 99 Intake & Output 08/31/18 09/01/18 09/01/18 18:59 06:59 18:59 Intake Total 580 / 580 360 / 360 Output Total 420 / 420 Balance 160 / 160 360 / 360 Weight 65.7 kg Intake: IV 100 / 100 Maxipime Inj 2,000 MG In NS Inj 100 / 100 100 ML @ 200 mls/hr IV.SIG Q24H ANAHI Rx#:[id number] Oral 480 / 480 360 / 360 Output: Stool 50 / 50 Urine Amount (Catheter) 200 / 200 Female External 200 / 200 Chest Tube Drainage 170 / 170 Right Mid-Axillary Chest 170 / 170 Other: # Voids 1 3 # Incontinent Voids 2 Date of Last Bowel Movement 08/31/18 08/31/18 09/01/18 Results - Labs Result diagrams: 09/01/18 10:01 09/01/18 10:01 Abnormal lab results 09/01/18 09/01/18 09/01/18 Range/Units 10:01 10:01 10:01 WBC 11.1 H (4.0-11.0) th/mm3 Hgb 9.7 L (11.6-15.3) gm/dL Hct 30.4 L (35.0-46.0) % MCV 75.1 L (80.0-100.0) fL MCH 24.0 L (27.0-34.0) pg RDW 21.1 H (11.6-17.2) % Neut % (Auto) 80.1 H (16.0-70.0) % Lymph % (Auto) 8.8 L (9.0-44.0) % Hart % (Auto) 10.6 H (0.0-8.0) % Neut # (Auto) 8.9 H (1.8-7.7) th/mm3 Hart # (Auto) 1.2 H (0.0-0.9) th/mm3 Seg Neuts % (Manual) 91 H (16-70) % Lymphocytes % (Manual) 2 L (9-44) % Myelocytes % (Man) 1 H (0-0) % Abs Neuts (Manual) 10.2 H (1.8-7.7) th/mm3 Nucleated RBCs/100 WBC 7 H (0-0) /100 WBC Platelet Morphology Enlarged H (Normal) Polychromasia 2.6 H (0.0-1.9) % Target Cells 2+ H (None) Ovalocytes 1+ H (None) Borjas[place] Bodies Present H (None) Bryan Cells 1+ H (None) Acanthocytes (Spur) 1+ H (None) Keratocytes Occ H (None) PT 28.8 H (9.8-11.6) sec ABG pH (7.380-7.420) ABG pCO2 (38-42) mmHg ABG HCO3 (22-26) mmol/L ABG Base Excess (-2-2) mmol/L Hemoglobin (12.0-16.0) G/DL Chloride 108 H (98-107) meq/L Carbon Dioxide 20.7 L (21.0-32.0) meq/L Anion Gap 16 H (5-15) meq/L BUN 148 H (7-18) mg/dL Creatinine 2.57 H (0.50-1.00) mg/dL Estimated GFR 23 L (>89) mL/min Phosphorus 5.3 H D (2.5-4.9) mg/dL Total Bilirubin 18.7 H (0.2-1.0) mg/dL AST 69 H (15-37) U/L Ammonia (11-32) mcmol/L Total Protein 5.9 L D (6.4-8.2) g/dL 09/01/18 09/01/18 Range/Units 10:01 10:03 WBC (4.0-11.0) th/mm3 Hgb (11.6-15.3) gm/dL Hct (35.0-46.0) % MCV (80.0-100.0) fL MCH (27.0-34.0) pg RDW (11.6-17.2) % Neut % (Auto) (16.0-70.0) % Lymph % (Auto) (9.0-44.0) % Hart % (Auto) (0.0-8.0) % Neut # (Auto) (1.8-7.7) th/mm3 Hart # (Auto) (0.0-0.9) th/mm3 Seg Neuts % (Manual) (16-70) % Lymphocytes % (Manual) (9-44) % Myelocytes % (Man) (0-0) % Abs Neuts (Manual) (1.8-7.7) th/mm3 Nucleated RBCs/100 WBC (0-0) /100 WBC Platelet Morphology (Normal) Polychromasia (0.0-1.9) % Target Cells (None) Ovalocytes (None) Borjas[place] Bodies (None) Bryan Cells (None) Acanthocytes (Spur) (None) Keratocytes (None) PT (9.8-11.6) sec ABG pH 7.47 H (7.380-7.420) ABG pCO2 25 L (38-42) mmHg ABG HCO3 18 L (22-26) mmol/L ABG Base Excess -5.1 L (-2-2) mmol/L Hemoglobin 9.1 L (12.0-16.0) G/DL Chloride (98-107) meq/L Carbon Dioxide (21.0-32.0) meq/L Anion Gap (5-15) meq/L BUN (7-18) mg/dL Creatinine (0.50-1.00) mg/dL Estimated GFR (>89) mL/min Phosphorus (2.5-4.9) mg/dL Total Bilirubin (0.2-1.0) mg/dL AST (15-37) U/L Ammonia Less than 10 L (11-32) mcmol/L Total Protein (6.4-8.2) g/dL Short CBC 09/01/18 Range/Units 10:01 WBC 11.1 H (4.0-11.0) th/mm3 Hgb 9.7 L (11.6-15.3) gm/dL Hct 30.4 L (35.0-46.0) % Plt Count (150-450) th/mm3 BMP 09/01/18 09/01/18 10:01 10:01 Sodium 145 Cancelled Potassium 3.5 Cancelled Chloride 108 H Cancelled Carbon Dioxide 20.7 L Cancelled BUN 148 H Cancelled Creatinine 2.57 H Cancelled Calcium 8.5 D Cancelled Liver Function 09/01/18 09/01/18 Range/Units 10:01 10:01 Total Bilirubin 18.7 H Cancelled (0.2-1.0) mg/dL AST 69 H Cancelled (15-37) U/L ALT 49 Cancelled (10-53) U/L Alkaline Phosphatase 86 Cancelled (45-117) U/L Albumin 3.4 D Cancelled (3.4-5.0) g/dL - Imaging Impressions Chest X-Ray 09/01/18 00:00 CONCLUSION: 1. Left midlung subsegmental atelectasis and left basilar density. 2. Cardiomegaly. Chest X-Ray 09/01/18 06:00 CONCLUSION: Slight interval worsening in aeration Caprini VTE Risk Assessment Caprini VTE Risk Assessment: Moderate/High Risk (score >= 2) Caprini Risk Assessment Model: Point Value = 1 Point Value = 2 Point Value = 3 Point Value = 5 Age 41-60 Minor surgery BMI > 25 kg/m2 Swollen legs Varicose veins or History of unexplained or recurrent spontaneous Oral contraceptives or hormone replacement Sepsis (< 1 month) Serious lung disease, including pneumonia (< 1 month) Abnormal pulmonary function Acute myocardial infarction Congestive heart failure (< 1 month) History of inflammatory bowel disease Medical patient at bed rest Age 61-74 Arthroscopic surgery Major open surgery (> 45 min) Laparoscopic surgery (> 45 min) Malignancy Confined to bed (> 72 hours) Immobilizing plaster cast Central venous access Age >= 75 History of VTE Family history of VTE Factor V Leiden Prothrombin [id number] Lupus anticoagulant Anticardiolipin antibodies Elevated serum homocysteine Heparin-induced thrombocytopenia Other congenital or acquired thrombophilia Stroke (< 1 month) Elective arthroplasty Hip, pelvis, or leg fracture Acute spinal cord injury (< 1 month) Prophylaxis Regimen: Total Risk Factor Score Risk Level Prophylaxis Regimen 0-1 Low Early ambulation 2 Moderate Order ONE of the following: *Sequential Compression Device (SCD) *Heparin 5000 units SQ BID 3-4 Higher Order ONE of the following medications: *Heparin 5000 units SQ TID *Enoxaparin/Lovenox 40 mg SQ daily (WT < 150 kg, CrCl > 30 mL/min) *Enoxaparin/Lovenox 30 mg SQ daily (WT < 150 kg, CrCl > 10-29 mL/min) *Enoxaparin/Lovenox 30 mg SQ BID (WT < 150 kg, CrCl > 30 mL/min) AND/OR *Sequential Compression Device (SCD) 5 or more Highest Order ONE of the following medications: *Heparin 5000 units SQ TID (Preferred with Epidurals) *Enoxaparin/Lovenox 40 mg SQ daily (WT < 150 kg, CrCl > 30 mL/min) *Enoxaparin/Lovenox 30 mg SQ daily (WT < 150 kg, CrCl > 10-29 mL/min) *Enoxaparin/Lovenox 30 mg SQ BID (WT < 150 kg, CrCl > 30 mL/min) AND *Sequential Compression Device (SCD) Assessment and Plan - Assessment (1) Acute exacerbation of CHF (congestive heart failure) Code(s): I50.9 - Heart failure, unspecified Status: Acute Plan: -BNP 4000 on admission -Bumex discontinued and patient now on Diuril 500mg BID -No lower extremity edema -Echo 08/17: EF 20%, fairly dilated left ventricle, severe mitral regurgitation -Urine output slightly decreased today at 0.68 ml/kg -BNP this morning of > 5000 -CHF likely contributing to hepatic congestion resulting in elevated bilirubin -Cardiology following and agree with current plan -Diuresis with Bumex 0.5 mg/h Per cardiology prognosis is poor. (2) Pleural effusion Code(s): J90 - Pleural effusion, not elsewhere classified Status: Acute Plan: Patient status post right sided thoracentesis (08/16/18) with evacuation of approximately 950 ml of slightly cloudy, yellow colored fluid was removed. -Patient underwent therapeutic right sided chest tube placement with pigtail that drained 950ml of slightly cloudy yellow fluid. -08/16: Pleural fluid showed 1,333 red blood cells with 230 nucleated cells. Fluid consistent with transudative process. Cultures show no growth to date. Plan: -Chest tube draining approx 170ml overnight -Monitor chest tube output -Continue pulmonary care as stated above (3) Severe sepsis Code(s): A41.9 - Sepsis, unspecified organism; R65.20 - Severe sepsis without septic shock Status: Resolved Plan: Community-acquired pneumonia complicated by lower extremity edema in the setting of CHF with an EF of 20%. Patient status post thoracentesis for pleural effusion. -Intubated mechanically ventilated, extubated on 08/27 -Blood cultures (08/15): No growth to date -Pleural fluid Gram stain and cultures no growth to date -WBC count downtrending to 11.5 today Plan: Per Freelance Recruiter: -Discontinue Flagyl 500 mg every 8h (08/15-08/30) -Cefepime 2000 mg every 8 hours (08/15-) -Discontinue azithromycin 500mg (08/16-08/30) -extubated on 08/27 -New blood, urine, and sputum cultures ordered on 08/27 due to increase in white count urine cx: chi albicans fluconazole 150mg x1 ordered blood cx no growth to date and sputum cx mod normal respiratory bear -Transfer out of ICU today Palliative care following, goals of care remain aggressive. (4) Pneumonia Code(s): J18.9 - Pneumonia, unspecified organism Status: Resolved Plan: Community acquired right-sided pneumonia with lactic acidosis. -DuoNeb every 2 hours as needed -Sputum culture: Moderate growth normal respiratory bear -Respiratory panel uncollected -Continue with antibiotics per critical care team as dictated above -Repeat CXR 08/25: Improved aeration in left lower lobe. -Repeat CXR 08/27:Nasogastric tube sidehole is not across the GE junction ET tube is just above the josh. Compensated cardiomegaly with minimal consolidative changes left base -Repeat CXR 08/29: Mild bibasilar parenchymal opacities, left worse than right, grossly stable. Cardiac contour is unchanged. -Repeat CXR 08/30: Persistent left perihilar atelectasis or infiltrate. Cardiac contours are unchanged, no significant change. -Discontinue azithromycin -Discontinue Flagyl (5) Acute on chronic kidney failure Code(s): N17.9 - Acute kidney failure, unspecified; N18.9 - Chronic kidney disease, unspecified Status: Acute Plan: This patient stage III CKD with elevated creatinine above baseline on admission. Possibly due to decrease intravascular volume in the setting of sepsis. -Creatinine on admission 2.72 from baseline of 1.5. -Creatinine decreased to 2.74 today -Urine output 0.19 ml/kg/hr Plan: -Trend kidney function -Trend I/O -Nephrology following Due to patient's severe cardiomyopathy with EF of <20% she is not a good candidate for dialysis -Begin Bumex 0.5 mg/h (6) Hyperbilirubinemia Code(s): E80.6 - Other disorders of bilirubin metabolism Status: Acute Plan: This patient had a doubling of her total bilirubin over the last several days. On 08/27 bilirubin was 9.1 on 08/30 bilirubin had increased to 13.5. Conjugated/ direct bilirubin 9.8 with an indirect of 3.7 and a normal alkaline phosphatase. Likely due to hepatic congestion secondary to congestive heart failure. Elevation of bilirubin may also be due to decreased albumin and third spacing, is also possible that it is idiopathic. At this time no evidence of hemolysis, biliary obstruction, viral hepatitis, or shock liver. -Hepatic ultrasound from 08/29 showed distended hepatic veins, diffuse gallbladder wall thickening and pericholecystic fluid but no gallstones no sonographic Lombardo signs. Nonobstructing calculus in the midpole the right kidney. -Likely due to hepatic congestion secondary to heart failure -Hepatitis panel negative -Rheum/immune panel pending -Alpha-1 antitrypsin pending -Continue to trend bilirubin (7) Hypertension Code(s): I10 - Essential (primary) hypertension Status: Acute Plan: History of hypertension. PEA required intubation and mech vent. Patient initially required pressors now off. -Lopressor 12.5 TID (8) Supratherapeutic INR Code(s): R79.1 - Abnormal coagulation profile Status: Resolved Plan: History of Afib on warfarin but supratherapeutic on admission. INR now 3.4. -Hold Wafarin 1mg daily -2.5 one-time dose of Phytonadione -monitor INR -Goal INR of 2-3 (9) Nutrition, metabolism, and development symptoms Code(s): R63.8 - Other symptoms and signs concerning food and fluid intake Status: Acute Plan: Fluids: Per warehouse packer Electrolytes: Replete as needed Nutrition: mechanical soft DVT prophylaxis: Supratherapeutic INR, hold Coumadin H&P: Quality - VTE Deep Vein Thrombosis/Pulmonary Embolism Present on Admission: No (1) Acute exacerbation of CHF (congestive heart failure) Qualifiers: Heart failure type: systolic Qualified Code(s): I50.23 - Acute on chronic systolic (congestive) heart failure (4) Pneumonia Qualifiers: Pneumonia type: due to unspecified organism Lung location: unspecified part of lung (5) Acute on chronic kidney failure Qualifiers: Acute renal failure type: unspecified Chronic kidney disease stage: stage 4 ( severe) Qualified Code(s): N17.9 - Acute kidney failure, unspecified; N18.4 - Chronic kidney disease, stage 4 (severe) (7) Hypertension Qualifiers: Hypertension type: unspecified Qualified Code(s): I10 - Essential (primary) hypertension
--- NOTE | 2018-09-01 14:49 | P.DS ---
Date of admission: 08/15/18 09:54 Primary care physician: Melissa Monreal MD, R3 Brief History from admission: This patient is a 67-year-old female with a past medical history of CHF (EF of 20%), MV Regurge, HTN, Stage 3 CKD, and CVA with residual left-sided weakness who presents to the ED with 1 week history of edema and 1 day history of weakness. Patient reports that over the last week she is begun to experience shortness of breath and has required 2 pillows to sleep at night. Patient also reports increased sputum production since April she describes as thick and yellow accompanied by coughing. She has not noticed any weight gain but does report intermittent shortness of breath with activity. She reports that after walking a few steps she has to sit down and rest. She has also noticed significant swelling in both of her legs up to her abdomen. During this time patient admits to eating salty foods and normal such as fried shrimp and soup. During this time this patient also reports decreased urination. This morning upon awakening patient says that she felt extremely weak, "no strength in my legs, I couldn't move them" and had to ask her for assistance in getting out of bed. She describes weakness as not having energy and had no specific neurological deficit or isolated weakness. She denies any recent falls , neurological deficits, confusion, recent illnesses, visual changes, or dizziness. She has however had nausea for months and vomited last week with a small amount of blood mixed in. PMHx: PE and Stroke Jul 2016, CHF since 2009, echo in Apr 2018 showed EF of 20% , MV Regurge, HTN, Stage 3 CKD, possikble Pulm HTN Surgical Hx: May 21 2018 defib Meds: As per EMR, warfarin 2 mg 6 days a week FMHx: Father and Brother had CAD, brother had [place] Allergies: As per EMR Social history: Unable to elicit Code: Full DS: Diagnosis - Discharge Diagnosis (1) Acute exacerbation of CHF (congestive heart failure) Status: Acute (2) Pleural effusion Status: Acute (3) Severe sepsis Status: Resolved (4) Pneumonia Status: Resolved (5) Acute on chronic kidney failure Status: Acute (6) Hyperbilirubinemia Status: Acute (7) Hypertension Status: Acute (8) Supratherapeutic INR Status: Resolved (9) Nutrition, metabolism, and development symptoms Status: Acute DS: Summary Hospital Course: 67-year-old female presenting to the emergency department for progressive weakness associated with shortness of breath and cough productive of a whitish sputum over the course of 1 week. She has a history of significant CHF with an EF of 20%, stage III chronic kidney disease, and hypertension. In the emergency department she was found to be septic with source being pneumonia as well as being significantly fluid overloaded with peripheral edema. BUN was elevated at 80 and creatinine 2.72. BNP was more than 4000. Chest x-ray showed right midlung infiltrate. Patient received Rocephin and azithromycin for community-acquired pneumonia. Initially patient had HR of 170's EKG appeared to be SVT and patient converted to NSR with IV Cardizem 25 mg. However patient's blood pressure started to decline. Lactic acid was checked and was 8.1. She required 2 L IV fluid bolus and was started on antibiotics without resolution of her hypotension. Critical care was consulted and patient was admitted to the [facility] for further treatment and management of her sepsis. Patient was started on cefepime, azithromycin and linezolid. Diuretics were held due to to septic shock patient was started on levophed however her urine was still minimal since admission Bumex was started. Patient was also found to have suprapubic INR previously on warfarin and was given vitamin K, warfarin was eventually restarted once INR was therapeutic. On August 16 patient developed PEA cardiac arrest and ACLS was initiated for 9 minutes before return of spontaneous circulation. Patient was subsequently intubated and sedated and treated with pressor support. Antibiotic coverage was broadened to include Flagyl. During her time in the ICU patient had very poor renal function with nonoliguric renal failure and was seen by nephrology who ultimately did not recommend hemodialysis due to patient's inability to tolerate secondary to her CHF. On August 20 patient was found to have bilateral pleural effusions on chest x-ray. Patient underwent therapeutic right-sided chest tube placement with pigtail that continued to drain significant amounts of fluid during patient 's hospital course. CPAP trials were attempted several days in a row before patient was able to tolerate CPAP. Patient was extubated on August 27 and was awake and alert with no obvious anoxic brain injury. On August 30, her antibiotic coverage was discontinued, and was transferred back to the [facility] on the . Palliative care was also involved in the patient's care throughout her hospital course. On 31 August patient and family decided that patient would be under DNR CODE STATUS as well as elected for hospice and comfort care. On patient's last day of hospital course on September 01, patient was found to be obtunded and had pulled out her chest tube overnight. A stat chest x-ray was negative for pneumothorax. Her was immediately contacted who confirmed the DNR status and elected not to work patient up. Eventually the patient became responsive and was able to communicate however family decided that patient would be transferred to hospice care and patient was discharged. - Time Spent with Patient Total time spent providing and/or coordinating discharge services: Greater than 30 minutes - Quality: VTE Deep Vein Thrombosis/Pulmonary Embolism Present on Admission: No Exam Vital signs: Vital Signs 08/31/18 16:00 08/31/18 17:17 08/31/18 19:00 Temperature 98.0 F Pulse Rate 79 78 Respiratory Rate Blood Pressure 101/67 Pulse Oximetry 100 100 08/31/18 20:00 08/31/18 22:00 09/01/18 00:00 Temperature 97.6 F 97.2 F L 97.2 F L Pulse Rate 79 83 84 Respiratory Rate 17 17 Blood Pressure 95/74 L 101/74 104/74 Pulse Oximetry 93 L 95 100 09/01/18 04:00 09/01/18 08:00 09/01/18 12:00 Temperature 97.4 F L 97.6 F 97.9 F Pulse Rate 80 84 81 Respiratory Rate 17 20 18 Blood Pressure 93/64 L 114/82 118/68 Pulse Oximetry 93 L 99 94 L Intake & Output 08/31/18 09/01/18 09/01/18 18:59 06:59 18:59 Intake Total 580 / 580 360 / 360 Output Total 420 / 420 Balance 160 / 160 360 / 360 Weight 65.7 kg Intake: IV 100 / 100 Maxipime Inj 2,000 MG In NS Inj 100 / 100 100 ML @ 200 mls/hr IV.SIG Q24H ANAHI Rx#:[id number] Oral 480 / 480 360 / 360 Output: Stool 50 / 50 Urine Amount (Catheter) 200 / 200 Female External 200 / 200 Chest Tube Drainage 170 / 170 Right Mid-Axillary Chest 170 / 170 Other: # Voids 1 3 # Incontinent Voids 2 Date of Last Bowel Movement 08/31/18 08/31/18 09/01/18 Narrative: GENERAL: Obtunded and difficult to arouse on initial exam. More awake and engaging on second attempt. SKIN: warm and dry. HEAD: Normocephalic. Significant bilateral scleral icterus. CARDIOVASCULAR: Regular rate and rhythm with no murmurs, rubs or gallops. RESPIRATORY: Clear to auscultation bilaterally, overlying bandages were chest tube was previously placed with no signs of infection or bleeding. GASTROINTESTINAL: Abdomen soft, non-tender, nondistended. EXTREMITIES: No lower ext edema, NEUROLOGICAL: Responsive, interactive and following commands. Patient alert and oriented x3 with less confusion on today's date. Cranial nerves II through XII appear to be grossly intact. Patient had no facial drooping. Moving all extremities without difficulty. Results Procedures completed during hospitalization: Intubation mechanical ventilation. Extubation Right-sided chest tube with pigtail placement Labs on day of discharge: Labs from last 24 hours 09/01/18 09/01/18 09/01/18 10:03 10:01 10:01 WBC RBC Hgb Hct MCV MCH MCHC RDW Plt Count MPV Prelim Diff (Auto) Neut % (Auto) Lymph % (Auto) [place] % (Auto) Eos % (Auto) Baso % (Auto) Neut # (Auto) Lymph # (Auto) [place] # (Auto) Eos # (Auto) Baso # (Auto) WBC Differential Seg Neuts % (Manual) Lymphocytes % (Manual) Monocytes % (Manual) Eosinophils % (Manual) Myelocytes % (Man) Abs Neuts (Manual) Nucleated RBCs/100 WBC Differential Comment Platelet Estimate Platelet Morphology Polychromasia Target Cells Ovalocytes [place] Bodies [place] Cells Acanthocytes (Spur) Keratocytes PT INR Puncture Site Right radial Patient Temperature 98.6 O2 Saturation 94 ABG pH 7.47 H ABG pCO2 25 L ABG pO2 99 ABG HCO3 18 L ABG O2 Content 12.2 ABG Base Excess -5.1 L ABG Methemoglobin 1.0 Brandt Test Present Hemoglobin 9.1 L Carboxyhemoglobin 2.6 O2 Delivery Device Room air Inspired O2 21 Critical Value No Sodium Cancelled Potassium Cancelled Chloride Cancelled Carbon Dioxide Cancelled Anion Gap Cancelled BUN Cancelled Creatinine Cancelled Estimated GFR Cancelled POC Glucose Random Glucose Cancelled Calcium Cancelled Calcium Adj for Albumin Cancelled Phosphorus Magnesium Total Bilirubin Cancelled AST Cancelled ALT Cancelled Alkaline Phosphatase Cancelled Ammonia Less than 10 L Total Protein Cancelled Albumin Cancelled Stl C.difficile DNA Amp St C. diff Tox Epid 027 09/01/18 09/01/18 09/01/18 10:01 10:01 10:01 WBC 11.1 H RBC 4.04 Hgb 9.7 L Hct 30.4 L MCV 75.1 L MCH 24.0 L MCHC 32.0 RDW 21.1 H Plt Count MPV 10.8 Prelim Diff (Auto) Slide review pending Neut % (Auto) 80.1 H Lymph % (Auto) 8.8 L [place] % (Auto) 10.6 H Eos % (Auto) 0.2 Baso % (Auto) 0.3 Neut # (Auto) 8.9 H Lymph # (Auto) 1.0 [place] # (Auto) 1.2 H Eos # (Auto) 0.0 Baso # (Auto) 0.0 WBC Differential Manual diff final Seg Neuts % (Manual) 91 H Lymphocytes % (Manual) 2 L Monocytes % (Manual) 5 Eosinophils % (Manual) 1 Myelocytes % (Man) 1 H Abs Neuts (Manual) 10.2 H Nucleated RBCs/100 WBC 7 H Differential Comment . Platelet Estimate Normal Platelet Morphology Enlarged H Polychromasia 2.6 H Target Cells 2+ H Ovalocytes 1+ H [place] Bodies Present H [place] Cells 1+ H Acanthocytes (Spur) 1+ H Keratocytes Occ H PT 28.8 H INR 2.9 Puncture Site Patient Temperature O2 Saturation ABG pH ABG pCO2 ABG pO2 ABG HCO3 ABG O2 Content ABG Base Excess ABG Methemoglobin Brandt Test Hemoglobin Carboxyhemoglobin O2 Delivery Device Inspired O2 Critical Value Sodium 145 Potassium 3.5 Chloride 108 H Carbon Dioxide 20.7 L Anion Gap 16 H BUN 148 H Creatinine 2.57 H Estimated GFR 23 L POC Glucose Random Glucose 87 Calcium 8.5 D Calcium Adj for Albumin Phosphorus 5.3 H D Magnesium 2.3 Total Bilirubin 18.7 H AST 69 H ALT 49 Alkaline Phosphatase 86 Ammonia Total Protein 5.9 L D Albumin 3.4 D Stl C.difficile DNA Amp St C. diff Tox Epid 027 09/01/18 08/31/18 08:35 14:00 WBC RBC Hgb Hct MCV MCH MCHC RDW Plt Count MPV Prelim Diff (Auto) Neut % (Auto) Lymph % (Auto) [place] % (Auto) Eos % (Auto) Baso % (Auto) Neut # (Auto) Lymph # (Auto) [place] # (Auto) Eos # (Auto) Baso # (Auto) WBC Differential Seg Neuts % (Manual) Lymphocytes % (Manual) Monocytes % (Manual) Eosinophils % (Manual) Myelocytes % (Man) Abs Neuts (Manual) Nucleated RBCs/100 WBC Differential Comment Platelet Estimate Platelet Morphology Polychromasia Target Cells Ovalocytes [place] Bodies [place] Cells Acanthocytes (Spur) Keratocytes PT INR Puncture Site Patient Temperature O2 Saturation ABG pH ABG pCO2 ABG pO2 ABG HCO3 ABG O2 Content ABG Base Excess ABG Methemoglobin Brandt Test Hemoglobin Carboxyhemoglobin O2 Delivery Device Inspired O2 Critical Value Sodium Potassium Chloride Carbon Dioxide Anion Gap BUN Creatinine Estimated GFR POC Glucose 84 Random Glucose Calcium Calcium Adj for Albumin Phosphorus Magnesium Total Bilirubin AST ALT Alkaline Phosphatase Ammonia Total Protein Albumin Stl C.difficile DNA Amp Negative St C. diff Tox Epid 027 Negative Preliminary micro results at discharge 08/16/18 13:20 Fungal Culture - Preliminary Fluid - Pleural fluid No growth in 2 weeks 08/16/18 13:20 Mycobacterial Culture - Preliminary Fluid - Pleural fluid No growth in 2 weeks - Impressions ITS Impressions Head CT 08/17/18 00:00 CONCLUSION: 1. No acute intracranial abnormality demonstrated. 2. 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 . Liver Ultrasound 08/29/18 00:00 CONCLUSION: 1. Distended hepatic veins may be related to right heart failure. 2. Diffuse gallbladder wall thickening and pericholecystic fluid but no gallstones and no sonographic Lombardo sign. May be related to hypoalbuminemia. 3. Small amount of ascites. 4. Nonobstructing calculus in the midpole of the right kidney. Chest X-Ray 09/01/18 06:00 CONCLUSION: Slight interval worsening in aeration Discharge Plan - Discharge Disposition Patient Disposition: 51 Hospice/Med Facility - Discharge Condition Condition: Stable - Discharge Order Discharge Orders: Discharge Order (Routine); Ordered 09/01/18 Ordered By: Xochitl Miller R3 - Discharge Details Anticipated Discharge Date: 09/01/18 - Physicians Team Primary Care Provider: Melissa Bentley Attending Provider: Amelia Phoenix Other Providers: Irene Nino MD ; Gabi James MD ; [facility] ; Marcelo Mahajan MD ; Kvng Mae MD ; [facility], Agency ; Primo Espinal MD
[2018-09-01 15:52] LABS: Smooth Muscle Total Auto Abs Negative (Negative)
[2018-09-01] MEDS: Metoprolol Tartrate 25 MG Tablet PO SCH ×2 (16:21→16:22)
[2018-09-01] MEDS: Senna/Docusate Sodium 8.6/50 MG Tablet PO SCH (16:22)
--- NOTE | 2018-09-01 21:19 | P.PNNP ---
Subjective Interval history: Patient seen in the afternoon, stable , no SOB. Physical Exam Vital signs: Vital Signs 08/31/18 22:00 09/01/18 00:00 09/01/18 04:00 Temperature 97.2 F L 97.2 F L 97.4 F L Pulse Rate 83 84 80 Respiratory Rate 17 17 17 Blood Pressure 101/74 104/74 93/64 L Pulse Oximetry 95 100 93 L 09/01/18 08:00 09/01/18 12:00 Temperature 97.6 F 97.9 F Pulse Rate 84 81 Respiratory Rate 20 18 Blood Pressure 114/82 118/68 Pulse Oximetry 99 94 L Intake & Output 09/01/18 09/01/18 09/02/18 06:59 18:59 06:59 Intake Total 360 / 360 Balance 360 / 360 Weight 65.7 kg Intake: Oral 360 / 360 Other: # Voids 3 Date of Last Bowel Movement 08/31/18 09/01/18 Narrative: GENERAL: Obtunded and difficult to arouse on initial exam. More awake and engaging on second attempt. SKIN: warm and dry. HEAD: Normocephalic. Significant bilateral scleral icterus. CARDIOVASCULAR: Regular rate and rhythm with no murmurs, rubs or gallops. RESPIRATORY: Clear to auscultation bilaterally, overlying bandages were chest tube was previously placed with no signs of infection or bleeding. GASTROINTESTINAL: Abdomen soft, non-tender, nondistended. EXTREMITIES: No lower ext edema, NEUROLOGICAL: Responsive, interactive and following commands. Patient alert and oriented x3 with less confusion on today's date. Cranial nerves II through XII appear to be grossly intact. Patient had no facial drooping. Moving all extremities without difficulty. - Urinary Catheter Management Indwelling Urethral Catheter Cath placed during this visit: yes, but has since been removed by the nurse Reason for continuing: Decision to DC catheter Insertion date: 08/16/18 Removal date: 08/28/18 Removal time: 18:00 Female External Cath placed during this visit: no Assessment and Plan - Assessment (1) Acute kidney injury superimposed on CKD Code(s): N17.9 - Acute kidney failure, unspecified; N18.9 - Chronic kidney disease, unspecified Status: Acute Plan: Patient remains nonoliguric acute renal failure and chronic kidney disease. She has cardiorenal syndrome. 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 I have discussed it with the patient and her family. Creatinine is slightly better, now 2.5. Patient is for discharge and going on Hospice. (2) Acute exacerbation of congestive heart failure Code(s): I50.9 - Heart failure, unspecified Status: Acute Plan: Cardiology following. She has cardiomyopathy EF 20%. (3) Severe sepsis Code(s): A41.9 - Sepsis, unspecified organism; R65.20 - Severe sepsis without septic shock Status: Resolved Plan: Patient on Cefepime, last dose today. (4) Pneumonia Code(s): J18.9 - Pneumonia, unspecified organism Status: Resolved Qualifiers: Pneumonia type: due to unspecified organism Lung location: unspecified part of lung Plan: Patient was being treated with IV antibiotics. (5) Hypokalemia Code(s): E87.6 - Hypokalemia Status: Acute Plan: Replace as needed. K is 3.3. - Plan Discharge Planning: patient was seen and examined on 08/27/18. Agree with above assessment and plan. Cardiorenal syndrome. Very poor prognosis. I do not believe dialysis is a good option. She will not tolerate renal replacement therapy
[2018-09-03 17:53] LABS: Ceruloplasmin 40 mg/dL (18-53)
[2018-09-04 03:50] LABS: DS DNA Ab (Crithidia) NEGATIVE (NEGATIVE)
== END 2018-09-01 15:06 | disposition hospice, inpatient (51) | DRG 870 ==
LOC: NEPE 07:43 → NEDA 09:54 → HIMC 15:05 → N04 08-31 21:25
PROVIDERS: ADMIT Family Medicine; ATTEND Family Medicine
CPT/HCPCS: 31500; 32020; 32551; 32554; 36430; 36556; 36600; 70450; 71010; 71045; 76705; 76937; 80048; 80053; 80069; 80074; 80076; 81001; 82040; 82103; 82140; 82150; 82247; 82248; 82390; 82550; 82728; 82805; 82945; 82948; 82962; 83520; 83540; 83550; 83605; 83615; 83735; 83880; 83986; 84100; 84132; 84155; 84157; 84484; 85025; 85027; 85610; 85730; 86038; 86039; 86225; 86235; 86255; 86256; 86431; 86927; 87015; 87040; 87070; 87086; 87102; 87116; 87205; 87206; 87328; 87329; 87493; 87506; 87641; 89051; 90774; 90784; 92526; 92610; 93005; 93306; 94002; 94003; 94150; 94656; 94657; 96374; 97110; 97162; 97530; 99291; C8952; C9503; G0195; J0171; J0456; J0692; J0696; J1160; J1940; J2020; J2060; J2250; J2260; J2270; J2370; J2405; J2704; J3430; J3475; J3480; J7030; J7040; J7050; J7060; J7070; P9017; P9047; S0171